=== PATIENT | female | born 1980 | race Caucasian/White ===

== ENCOUNTER 2020-07-19 10:29 | Outpatient (REF) | payer MEDICAID, SELFPAY ==
--- NOTE | 2020-07-19 10:15 | PAPFT_PTH ---
PATIENT: Teri Smith LOC: [facility] U#:[id number] AGE/SX: 40/F ROOM: RE07/19/[address]: Duyen Hunter : 1980 BED: DIS: 07/19/2020 SPEC #: [id number] RECD: 07/19/20 13:16 STATUS: GRAHAM RERichmond #: [id number] HERNAN: 07/19/20 10:[address]: Duyen Hunter DEPT: [facility] Cytology RECD BY: Estephania Delgado ENTERED: 07/19/20 13:17 SP TYPE: PAPFT OT DR: Anuja Cai APRN Tissues: 1 - CX/ENDOCX FOR PAP SMEARS Procedures: PAP THIN PREP/UVM Screening HPV DNA PROBE Comments: [id number]
== END 2020-07-19 10:49 ==
LOC: LBN 10:29
PROVIDERS: PCP Nurse Practitioner; Visit Provider Obstetrics & Gynecology Gynecology
DX: Z12.4 Encounter for screening for malignant neoplasm of cervix (principal); Z11.51 Encounter for screening for human papillomavirus (HPV)
CPT/HCPCS: 88142; 87624

== ENCOUNTER 2020-07-20 02:26 | Outpatient (CLI) | payer MEDICAID, SELFPAY ==
[2020-07-20 16:22] LABS: HCT 37.1 % (36.0-46.0); HGB 12.5 g/dL (11.2-15.7); MCH 28.6 pg (27.0-33.0); MCHC 33.7 % (32.0-36.0); MCV 84.9 fL (80-95); MPV 9.7 fL (8.0-11.0); Platelet Count 302 10^3/uL (130-400); RBC 4.37 10^6/uL (3.93-5.22); RDW 11.9 % (11.7-14.6); RDW-SD 36.2 fL; WBC 8.06 10^3/uL (4.4-10.8)
[2020-07-20 17:36] LABS: ALT 19 U/L (14-59); AST 17 U/L (15-37); Albumin 4.1 g/dL (3.4-5.0); Alkaline Phosphatase 51 U/L (46-116); Anion Gap 7.5 mmol/L (3-11); BUN 16 mg/dL (7-18); Bilirubin, Total 0.4 mg/dL (0.2-1.0); CO2 28.5 mmol/L (21.0-32.0); CREATININE 0.76 mg/dL (0.55-1.02); Calcium 9.1 mg/dL (8.5-10.1); Calculated LDL 123 mg/dL (<100); Chloride 102 mmol/L (98-107); Cholesterol 206 mg/dL (<200); Glucose 100 mg/dL (74-106); HDL Cholesterol 75 mg/dL (40-60); Magnesium 2.3 mg/dL (1.8-2.4); Potassium 3.9 mmol/L (3.5-5.1); Sodium 138 mmol/L (136-145); Total Protein 7.2 g/dL (6.4-8.2); Triglyceride 41 mg/dL (<150)
== END 2020-07-20 02:46 ==
PROVIDERS: PCP Nurse Practitioner; Visit Provider Student in an Organized Health Care Education/Training Program
DX: E03.9 Hypothyroidism, unspecified (principal); R53.83 Other fatigue; K58.9 Irritable bowel syndrome, unspecified; K21.9 Gastro-esophageal reflux disease without esophagitis; E86.0 Dehydration; Z13.220 Encounter for screening for lipoid disorders; Z83.3 Family history of diabetes mellitus; Z86.2 Personal history of diseases of the blood and blood-forming organs and certain disorders involving the immune mechanism
CPT/HCPCS: 36415; 80053; 80061; 85027; 83735; 84443

== ENCOUNTER 2020-09-13 02:20 | Outpatient (CLI) | payer MEDICAID, SELFPAY ==
[2020-09-13 10:18] LABS: ESR 31 mm/hr (0-20)
[2020-09-13 12:11] LABS: C-Reactive Protein 0.71 mg/dL (0.0-0.3)
[2020-10-01 12:29] LABS: ANA Interpretation 0.5 U (Negative); Rheumatoid Factor <15 IU/mL (<15)
[2020-10-01 12:30] LABS: Lyme Ab w Rflx to Lyme Confirm Negative (Negative)
== END 2020-09-13 02:40 ==
PROVIDERS: PCP Nurse Practitioner; Visit Provider Nurse Practitioner
DX: E03.9 Hypothyroidism, unspecified (principal); R53.83 Other fatigue; K21.9 Gastro-esophageal reflux disease without esophagitis; M79.18 Myalgia, other site; M25.59 Pain in other specified joint
CPT/HCPCS: 36415; 85652; 84439; 86038; 86140; 86431; 86618

== ENCOUNTER 2020-10-10 01:42 | Outpatient (CLI) | payer MEDICAID, SELFPAY ==
--- NOTE | 2020-10-10 | DI.US_ITS ---
EXAM: US RENAL CLINICAL HISTORY: COMPLEX RENAL CYST,N28.1 TECHNIQUE: Ultrasound performed using standard protocol. COMPARISON: CT CT HEAD/BRAIN WO CONTRAST from 09/08/[address] RENAL COLIC from 09/07/[address] ABDOMEN W/CONTRAST from 09/19/2019 FINDINGS: Today's examination was obtained to evaluate I a hypoattenuating lesion seen on CT from [facility] September 07, this measured about 9 millimeters in diameter and was located in the anterior aspect of left renal midpole. This measures about 5-10 Houns[address] on [address] CT of and about 23 Hounsfield units on contrast enhanced CT of September 19. On today's examination this lesion is not identified in a suboptimally ultrasonically visualized kidn ey. Right kidney is unremarkable in appearance. No hydronephrosis or nephrolithiasis. Urinary blad mari is unremarkable. IMPRESSION: A 9 millimeter left renal lesion noted on CT a [facility] cannot be identified as a cyst. I would suggest additional evaluation with renal MRI be obtained. DATA REPOSITORY:
== END 2020-10-10 02:02 ==
PROVIDERS: PCP Nurse Practitioner; Visit Provider Urology
DX: N28.1 Cyst of kidney, acquired (principal); N28.89 Other specified disorders of kidney and ureter
CPT/HCPCS: 76770

== ENCOUNTER 2020-11-21 00:05 | Emergency (ER) | payer MEDICAID, SELFPAY ==
[2020-11-21 00:11] VITALS: BP 153/91; PULSE 119; RESP 20; TEMP 37.2; O2SAT 98
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
== END 2020-11-21 00:32 | disposition left against medical advice (07) ==
LOC: ER 00:43
PROVIDERS: Emergency Provider Emergency Medicine; PCP Nurse Practitioner
DX: S80.01XA Contusion of right knee, initial encounter (principal); R51.9 Headache, unspecified; M54.2 Cervicalgia; R07.81 Pleurodynia; R10.9 Unspecified abdominal pain; Y35.813A Legal intervention involving manhandling, suspect injured, initial encounter; Z53.29 Procedure and treatment not carried out because of patient's decision for other reasons
CPT/HCPCS: 99285; 99283

== ENCOUNTER 2021-01-16 02:12 | Outpatient (CLI) | payer MEDICAID, SELFPAY ==
[2021-01-16 08:55] LABS: Hemoglobin A1C 5.7 % (<5.7)
[2021-01-16 09:40] LABS: Anion Gap 11.6 mmol/L (3-11); BUN 7 mg/dL (7-18); CO2 25.4 mmol/L (21.0-32.0); CREATININE 0.8 mg/dL (0.55-1.02); Calcium 8.6 mg/dL (8.5-10.1); Calculated LDL 102 mg/dL (<100); Chloride 104 mmol/L (98-107); Cholesterol 170 mg/dL (<200); Glucose 107 mg/dL (74-106); HDL Cholesterol 59 mg/dL (40-60); Potassium 3.6 mmol/L (3.5-5.1); Sodium 141 mmol/L (136-145); TSH (W/Ref FT4) 0.13 uIU/mL (0.36-3.74); Triglyceride 48 mg/dL (<150)
[2021-01-16 10:04] LABS: FREE T4 1.73 ng/dL (0.76-1.46)
[2021-01-17 09:22] LABS: Insulin 5.7 uIU/mL (<29.0)
== END 2021-01-16 02:13 | disposition home or self-care (01) ==
LOC: LBO 02:13
PROVIDERS: PCP Nurse Practitioner; Visit Provider Nurse Practitioner
DX: I10 Essential (primary) hypertension (principal); E11.649 Type 2 diabetes mellitus with hypoglycemia without coma; E03.9 Hypothyroidism, unspecified; R63.5 Abnormal weight gain
CPT/HCPCS: 36415; 80048; 80061; 83036; 83525; 84439; 84443; 84681

== ENCOUNTER 2021-05-30 16:04 | Outpatient (CLI) | payer MEDICAID, SELFPAY ==
[2021-05-30 17:46] LABS: FREE T4 1.23 ng/dL (0.76-1.46); Glucose 84 mg/dL (74-106); TSH 2.33 uIU/mL (0.36-3.74)
[2021-05-31 16:11] LABS: Beta-Hydroxybutyrate 0.3 mmol/L (<0.4)
[2021-06-06 10:15] LABS: Insulin 6.4 uIU/mL (<29.0)
== END 2021-05-30 16:05 | disposition home or self-care (01) ==
LOC: LBO 16:07
PROVIDERS: PCP Nurse Practitioner; Visit Provider Nurse Practitioner
DX: E03.8 Other specified hypothyroidism (principal); E06.3 Autoimmune thyroiditis; E16.2 Hypoglycemia, unspecified
CPT/HCPCS: 36415; 82533; 82947; 82010; 83525; 84439; 84443; 84681

== ENCOUNTER 2021-07-10 14:58 | Emergency (ER) | payer MEDICAID, SELFPAY ==
[2021-07-10] VITALS (39 sets, daily range): BP systolic 148–179; BP diastolic 68–101; PULSE 59–94; RESP 11–27; TEMP 36.7; O2SAT 98–100
--- NOTE | 2021-07-10 15:00 | RT.EKG_ITS ---
APPROVED REPORT Exam: Resting ECG Reason for Exam: chest pain Patient Location: E HR:82 bpm ECG Measurements Heart Rate 82 AXIS NJ 121 P 56 QRSd 92 QRS 54 QT 382 T -7 QTc 448 Conclusion Sinus rhythm...normal P axis, V-rate 60- 99
--- NOTE | 2021-07-10 15:30 | ED.GENADUL_ITS ---
Discharge Plan Disposition Patient Disposition: HOME Condition: Stable Discharge Details Clinical Impression: Chest pain, Gastroesophageal reflux disease Primary Care Provider: Anuja Cai ED Provider: Vishnu Miller Home Meds and New Rx's Prescriptions: Continued fluticasone propionate 50 mcg/actuation spray,suspension 1 spray LAVELLE BID Qty: 15.8 RF: 12 fexofenadine 180 mg tablet 180 mg PO DAILY Qty: 90 RF: 3 levothyroxine 112 mcg tablet 112 mcg PO DAILY Qty: 90 RF: 3 omeprazole 40 mg capsule,delayed release(DR/EC) 40 mg PO DAILY Qty: 90 RF: 3 atomoxetine 40 mg capsule 40 mg PO QAM Qty: 90 RF: 3 Discharge Instructions Instructions: Chest Pain (ED), GERD (Gastroesophageal Reflux Disease) (ED) Additional Instructions: your blood work and chest xray did not show concerning findings at this time follow up with your primary care provider as soon as possible if you feel more ill, have worsening pain or difficulty breathing return to the emergency department Medical Decision Making 41 yo female with hx of smoking, hypothyroidism, gerd, who comes in with cc of aching in the anterior chest for 2 days and has had a lot of gas per patient. Denies any fevers or dyspnea. She states she has chronic stomach issues from a hiatal hernia but has not had any abdomen tenderness recently and has no tenderness anywhere on abdomen exam. She denies drug use and drinks occasionally. She appears well on exam speaking in full sentences in no distress. She has clear lungs, no murmurs, no leg swelling or calf tenderness. Her symptoms seem most likely gi related, will treat with gi cocktail. Her pain doesn't radiate to the back and has normal vascular exam so doubt dissection. Wells low and perc negative so doubt PE at this time. Will obtain xray to [facility] for possible pneumothorax though seems unlikely given pain is not pleuritic. Given she has no abdomen tenderness on exam do not feel she requires imaging of the abdomen at this time pt's initial labs and xray unremarkable, feels better after [place] so suspect gastritis/gerd. Will obtain delta troponin and ecg delta trop negative, she remains stable. Given heart score of 2 she is stable fo r d/c. Advised to f/u with pcp and return precautions given Differential Diagnosis Differential Diagnosis: esophagitis, esophageal spasm, nstemi Medical Records Medical records reviewed: Yes I reviewed the patient's medical records. Imaging Data Radiologic Study: Attestation: I personally reviewed and interpreted this imaging study as follows: Imaging: X-Ray Radiologist's impression: no acute findings Lab Data Lab results reviewed: Yes I reviewed the patient's lab results. ECG Data Attestation: I personally reviewed and interpreted this ECG (s) as follows: Prior ECG tracings: not available for review Interpretation: sinus rhythm, rate of 82, no acute st t wave ischemic findings sinus rhythm, rate of 62, no acute st t wave ischemic findings HPI General Mode of arrival: ambulatory . Date/Time Provider Initiated Documentation: 07/10/21 15:02 . Limitations to Documentation: no limitations . Information obtained by: patient . History of Present Illness 41 year old F presents to the emergency department with the chief complaint of chest pain, described as moderate, Quality is described as aching, Patient started experiencing this day(s) (2) and it has been constant. No relieving factors improve symptom(s), No exacerbating factors reported . Patient did receive the following treatments prior to arrival, none Related Data Home Medications Medication Instructions Recorded Confirmed fexofenadine 180 mg tablet 180 mg PO DAILY #90 tab 01/14/21 07/10/21 levothyroxine 112 mcg tablet 112 mcg PO DAILY #90 tab 01/16/21 07/10/21 fluticasone propionate 50 1 spray LAVELLE BID #15.8 ml 02/04/21 07/10/21 mcg/actuation nasal spray,suspension omeprazole 40 mg capsule,delayed 40 mg PO DAILY #90 cap 06/06/21 07/10/21 release atomoxetine 40 mg capsule 40 mg PO QAM #90 cap 06/12/21 07/10/21 Previous Rx's Medication Instructions Recorded fexofenadine 180 mg tablet 180 mg PO DAILY #90 tab 01/14/21 levothyroxine 112 mcg tablet 112 mcg PO DAILY #90 tab 01/16/21 fluticasone propionate 50 1 spray LAVELLE BID #15.8 ml 02/04/21 mcg/actuation nasal spray,suspension omeprazole 40 mg capsule,delayed 40 mg PO DAILY #90 cap 06/06/21 release atomoxetine 40 mg capsule 40 mg PO QAM #90 cap 06/12/21 Allergies Allergy/AdvReac Type Severity Reaction Status Date / Time kiwi Allergy Intermediate Anaphylaxsi Verified 07/10/21 15:24 s house dust mite Allergy Unknown Verified 07/10/21 15:24 General Stated Complaint: Chest Pain DIMITRI: 2 Review of Systems All systems reviewed & are unremarkable except as noted in HPI and below Constitutional Constitutional: Denies chills, Denies fever(s) and Denies weakness Cardiovascular Cardiovascular: Denies dyspnea Respiratory Respiratory: Denies cough and Denies dyspnea Musculoskeletal Musculoskeletal: Denies joint swelling Neurologic Neurologic: Denies weakness [facility] Medical History (Updated 07/10/21 @ 18:50 by Vishnu Miller MD) ADHD ADHD Adjustment disorder with mixed emotional features Anxiety and depression Binge eating disorder Binge eating disorder Candidal vulvovaginitis Chronic pain of multiple joints Hx flares: .. divina shoulders/hips. Clinical xerostomia Dry mouth, w/ sensation of dysphagia; Dry eyes (sensation of sand in eyes).. Possible assoc with autoimmun pathology? Environmental allergies Exposure to viral hepatitis Family history of aneurysm of blood vessel of brain Mo (now 60yo) Family history of coronary artery disease Fa w/ triple bypass @ 55yo Family history of diabetes mellitus Father Family history of thyroid cancer Gastroesophageal reflux disease EGD 02/03/12 History of cardiac murmur as a child Hypothyroidism IBS (irritable bowel syndrome) Joint pain Lack of energy Muscle pain Obstructive sleep apnea Sleep study 09/06/10 Palpitations Holter 01/10/11 Premenstrual tension syndrome PTSD (post-traumatic stress disorder) Renal colic Surgical History delivery delivered (12/03/14) H/O tubal ligation (~2014) Status post hysteroscopic surgical removal of uterine septum (~2003) [place] teeth extracted (~2000) Family History Mother Substance abuse Depression Hypertension Brain aneurysm Father Substance abuse Diabetes Heart disease Daughter Anxiety Aunt Thyroid cancer Daughter Diabetes Maternal Grandmother Thyroid cancer Social History Smoking/Tobacco Use Status: Former Tobacco Use Tobacco: How many years used: 20 Smokeless tobacco user: other (quit vaping 11/18/20) Smoking risk assessment performed?: Yes (Pt is currently vaping after 22yrs of tobacco use.) Alcohol Intake: current Alcohol Intake frequency: a few times a week Alcohol type: wine Drug use: Never Adopted: No Caregiver/Support person: No Foster care: No Household members: spouse and children Housing: house Number of Children: 2 Communication Needs: Corrective Lenses Do you need help understanding health information?: Rarely current occupation: Unemployed Pets and animals: Yes Pets and animals: cat(s) Sexually active: Yes Do you think of yourself as: straight/heterosexual Current gender identity: female What is your relationship status?: Panel score (0-1 are the most socially isolated patients): 1 What type of physical activity do you participate in: none Duration: < 15 minutes/day Special abilio needs: No Seatbelt use: always Drive intox or ride w/intox warehouse associate driver: No Working smoke detector in home: Yes Fire extinguisher in home: Yes Carbon monox detector in home: Yes Firearms in home: No Do you feel safe at home: Yes Do you feel safe in your relationship?: Yes Female Reproductive History Menstrual Duration of menses: 3-5 days control method: permanent sterilization History History 4 Para 2 Hx # Term Pregnancies 2 Multiple births Hx # Pregnancies Ectopic pregnancies AB induced Hx Number of Living Children 2 AB spontaneous Exam Const General: no acute distress Orientation: alert HENMT Head: normal to inspection Ears: external ears normal General nose exam: external nose normal Mouth: moist mucous membranes Eyes General: appearance normal, both eyes and all related structures Neck Neck: normal visual inspection Resp Effort & Inspection: normal respiratory effort and able to speak in complete sentences Cardio Rate: regular rate GI Palpation: soft Skin General skin exam: no rashes or lesions noted Neuro General: patient alert and patient oriented x3 Extrem General: normal to inspection Psych Mental Status: mental status grossly normal Course Vital Signs Vital signs: Vital Signs Temperature 36.7 C 07/10/21 15:19 Pulse 91 H 07/10/21 15:19 Respiratory Rate 18 07/10/21 15:19 Blood Pressure 173/85 H 07/10/21 15:19 Pulse Oximetry 100 07/10/21 15:19 Temperature 36.7 C 07/10/21 15:19 Pulse 91 H 07/10/21 15:19 Respiratory Rate 18 07/10/21 15:19 Respiratory Effort Non-Labored 07/10/21 15:22 Blood Pressure 173/85 H 07/10/21 15:19 Blood Pressure Position Supine 07/10/21 15:19 Pulse Oximetry 100 07/10/21 15:19 Oxygen Delivery Method Room Air 07/10/21 15:19 Oxygen Flow Rate 0 07/10/21 15:19 Pain Level 3 07/10/21 15:19
--- NOTE | 2021-07-10 15:30 | DI.RAD_ITS ---
Exam(s) XR CHEST 2V PA LATERAL EXAM: XR CHEST 2V PA LATERAL CLINICAL HISTORY: chest pain. TECHNIQUE: 2D digital imaging was performed. COMPARISON: No exams were available for comparison FINDINGS: Heart size is normal. The mediastinum is not widened. Lungs are clear. No infiltrates nor pleural effusions. IMPRESSION: No acute pulmonary findings. DATA REPOSITORY: RADIATION DOSE DELIVERED:
[2021-07-10 15:39] LABS: Abs Immature Grans 0.02 10^3/uL (0.0-0.06); Absolute Basophil Count 0.04 10^3/uL (0.0-0.2); Absolute Eosinophil Count 0.07 10^3/uL (0.0-0.7); Absolute Lymphocyte Count 1.78 10^3/uL (1.2-3.4); Absolute Monocyte Count 0.58 10^3/uL (0.1-0.8); Absolute Neutrophil Count 6.15 10^3/uL (1.2-6.7); Basophils % 0.5; Eosinophils % 0.8; HCT 35.7 % (36.0-46.0); HGB 11.7 g/dL (11.2-15.7); Immature Grans % 0.2; Lymphocytes % 20.6; MCHC 32.8 % (32.0-36.0); MCV 82.4 fL (80-95); MPV 9.8 fL (8.0-11.0); Monocytes % 6.7; Neutrophils % 71.2; Nucleated RBC 0 %; Platelet Count 332 10^3/uL (130-400); RBC 4.33 10^6/uL (3.93-5.22); RDW 12.8 % (11.7-14.6); RDW-SD 38.3 fL; WBC 8.64 10^3/uL (4.4-10.8)
[2021-07-10 15:51] LABS: Magnesium 1.9 mg/dL (1.8-2.4)
[2021-07-10] MEDS: Mylanta Suspension 30 ML CUP PO (15:54)
[2021-07-10 16:01] LABS: Lipase 151 U/L (73-393)
[2021-07-10 16:05] LABS: Troponin I < 0.05 ng/mL (<0.06)
--- NOTE | 2021-07-10 17:41 | DI.VRAD_ITS ---
PROCEDURE INFORMATION: Exam: XR Chest Exam date and time: 07/10/2021 3:40 PM Age: 41 years old Clinical indication: Other: Chest pain TECHNIQUE: Imaging protocol: XR of the chest. Views: 2 views. COMPARISON: CT ABDOMEN W/CONTRAST 09/19/2019 2:50 PM FINDINGS: Lungs: Unremarkable. No consolidation. Pleural spaces: Unremarkable. No pleural effusion. No pneumothorax. Heart/Mediastinum: Unremarkable. No cardiomegaly. Bones/joints: Unremarkable. IMPRESSION: No acute findings. Dictated and Authenticated by: Eligio Holguin MD. Ordering:COMPA Mares MD
--- NOTE | 2021-07-10 18:15 | RT.EKG_ITS ---
APPROVED REPORT Exam: Resting ECG Reason for Exam: chest pain-delta trop Patient Location: E HR:62 bpm ECG Measurements Heart Rate 62 AXIS MN 134 P 36 QRSd 94 QRS 32 QT 419 T 12 QTc 426 Conclusion Sinus rhythm...normal P axis, V-rate 60- 99
[2021-07-10 18:36] LABS: ALT 32 U/L (14-59); AST 25 U/L (15-37); Albumin 3.9 g/dL (3.4-5.0); Alkaline Phosphatase 62 U/L (46-116); Anion Gap 13.2 mmol/L (3-11); BUN 8 mg/dL (7-18); Bilirubin, Total 0.4 mg/dL (0.2-1.0); CO2 23.8 mmol/L (21.0-32.0); CREATININE 0.9 mg/dL (0.55-1.02); Calcium 8.5 mg/dL (8.5-10.1); Chloride 103 mmol/L (98-107); Glucose 95 mg/dL (74-106); Potassium 3.6 mmol/L (3.5-5.1); Sodium 140 mmol/L (136-145); Total Protein 7.5 g/dL (6.4-8.2)
[2021-07-10 18:44] LABS: Troponin I < 0.05 ng/mL (<0.06)
== END 2021-07-10 19:23 | disposition home or self-care (01) ==
PROVIDERS: Emergency Provider Emergency Medicine; PCP Nurse Practitioner
DX: R07.9 Chest pain, unspecified (principal); K21.9 Gastro-esophageal reflux disease without esophagitis; R03.0 Elevated blood-pressure reading, without diagnosis of hypertension
CPT/HCPCS: 80053; 83690; 93005; 99284; 71046; 83735; 84484; 85025; 93010

== ENCOUNTER 2021-07-12 10:36 | Outpatient (CLI) | payer MEDICAID, SELFPAY ==
--- NOTE | 2021-07-12 11:45 | DI.US_ITS ---
Exam(s) US ABDOMEN EXAM: US ABDOMEN CLINICAL HISTORY: general abd pain ?hepatobiliary pathology? R10.9 ABD PAIN TECHNIQUE: Ultrasound abdomen performed using standard protocol. COMPARISON: CT CT RENAL COLIC from 09/07/[address] RENAL COLIC from 09/07/[address] ABDOMEN W/CONTRAST from 09/19/[address] ABDOMEN W/CONTRAST from 09/19/2019 FINDINGS: LIVER: Normal size at 14 cm in length. Mildly increased diffuse echogenicity consistent with mild he patic steatosis.. No focal liver lesions are seen.. GALLBLADDER: No evidence of cholelithiasis. No evidence of wall thickening. No pericholecystic fluid identified. WILSON'S SIGN: Negative. BILIARY SYSTEM: No intrahepatic or extrahepatic biliary ductal dilation. KIDNEYS: Kidneys are symmetric in size. No evidence of renal calculi. No evidence of hydronephrosis. Previously noted left renal cysts by CT is not well evaluated on this exam. PANCREAS: Normal where visualized. SPLEEN: Not enlarged. ABDOMINAL AORTA AND IVC: Visualized portions normal caliber. ASCITES: None seen. IMPRESSION: Mild fatty infiltration of the liver. Normal gallbladder. No biliary dilatation. DATA REPOSITORY:
== END 2021-07-12 10:56 ==
PROVIDERS: PCP Nurse Practitioner; Visit Provider Nurse Practitioner Family
DX: R10.9 Unspecified abdominal pain (principal); K76.0 Fatty (change of) liver, not elsewhere classified
CPT/HCPCS: 76700

== ENCOUNTER 2021-07-16 02:08 | Outpatient (CLI) | payer MEDICAID, SELFPAY ==
[2021-07-16 18:42] LABS: Bilirubin Negative (Negative); Blood Small (Negative); Clarity Clear (Clear); Glucose Negative (Negative); Ketones Negative (Negative); Leukocyte Esterase Negative (Negative); Nitrite Negative (Negative); Specific Gravity <= 1.005 (1.005-1.025); Urobilinogen 0.2 EU/dL (Up TO 0.2)
[2021-07-16 18:43] LABS: RBC 0-2 HPF (0-2); WBC 0-2 HPF (0-5)
[2021-07-16 18:44] LABS: Bacteria Negative HPF (Negative); C & S Indicated? No; Casts Negative LPF (Negative); Crystals Negative HPF (Negative); Epithelial Cells Negative HPF (Negative); Mucus Negative (Negative); Other Cells Negative (Negative)
[2021-07-17 10:37] LABS: Hepatitis C Ab w Rflx HCV PCR Negative (Negative)
[2021-07-17 12:11] LABS: IgA 191 mg/dL (85-499); Interpretation (See Note); Tissue Transglutaminase IgA <1.2 U/mL (<4.0)
== END 2021-07-16 02:09 | disposition home or self-care (01) ==
LOC: LBO 02:08
PROVIDERS: PCP Nurse Practitioner; Visit Provider Nurse Practitioner Family
DX: Z11.59 Encounter for screening for other viral diseases; R19.7 Diarrhea, unspecified; I10 Essential (primary) hypertension; K44.9 Diaphragmatic hernia without obstruction or gangrene
CPT/HCPCS: 36415; 82784; 83516; 86803; 81003; 81015

== ENCOUNTER 2021-07-30 12:17 | Outpatient (REF) | payer MEDICAID, SELFPAY | END 2021-07-30 12:18 | disposition home or self-care (01) | LOC: LBN 12:17 | PROVIDERS: PCP Nurse Practitioner; Visit Provider Nurse Practitioner Family | DX: N39.0 Urinary tract infection, site not specified (principal) | CPT/HCPCS: 87077; 87086; 87186 ==

== ENCOUNTER 2022-02-12 02:04 | Outpatient (CLI) | payer MEDICAID, SELFPAY ==
--- NOTE | 2022-02-12 12:13 | DI.MAMMO_ITS ---
Exam(s) MAMMO SCREENING EXAM: MAMMO SCREENING CLINICAL HISTORY: screening,Z12.39 TECHNIQUE: Mammograms were interpreted according to the usual protocol including computer analysis w [employer] CAD system, tomosynthesis and C-view imaging. COMPARISON: None. Baseline exam. FINDINGS: The breasts are composed of scattered fibroglandular densities, Breast Density category B. No suspicious masses or suspicious microcalcifications are seen. No skin thickening or abnormal axillary lymph nodes are seen. There has been no significant change from prior exams. IMPRESSION: BI-RADS Category 1, Negative mammogram Yearly screening mammography is recommended. Breast Density - Category B, scattered fibroglandular densities. A negative radiographic report should not delay biopsy if a dominant or clinically suspicious mass is present. Up to ten percent of cancers are not identified on mammography. A negative report may reinforce clinical impression. Adenosis and dense breasts may obscure an underlying neoplasm. False positive reports average 6 to 10%. Patient will receive a letter notifying them of these results.
== END 2022-02-12 02:24 ==
PROVIDERS: PCP Nurse Practitioner; Visit Provider Nurse Practitioner
DX: Z12.31 Encounter for screening mammogram for malignant neoplasm of breast (principal)
CPT/HCPCS: 77063; 77067

== ENCOUNTER 2022-03-12 18:02 | Outpatient (REF) | payer MEDICAID, SELFPAY ==
[2022-03-13 14:39] LABS: Chlamydia Result Negative (Negative); GC Result Negative (Negative)
== END 2022-03-12 18:03 | disposition home or self-care (01) ==
LOC: LBN 18:02
PROVIDERS: PCP Nurse Practitioner; Visit Provider Nurse Practitioner Women's Health
DX: Z11.3 Encounter for screening for infections with a predominantly sexual mode of transmission (principal)
CPT/HCPCS: 87491; 87591

== ENCOUNTER 2022-03-14 02:58 | Outpatient (CLI) | payer MEDICAID, SELFPAY ==
[2022-03-14 11:11] LABS: ALT 37 U/L (14-59); AST 22 U/L (15-37); Albumin 4.3 g/dL (3.4-5.0); Alkaline Phosphatase 54 U/L (46-116); Anion Gap 7.7 mmol/L (3-11); BUN 10 mg/dL (7-18); Bilirubin, Total 0.5 mg/dL (0.2-1.0); CO2 31.3 mmol/L (21.0-32.0); CREATININE 0.9 mg/dL (0.55-1.02); Calcium 9.2 mg/dL (8.5-10.1); Calculated LDL 123 mg/dL (<100); Chloride 99 mmol/L (98-107); Cholesterol 211 mg/dL (<200); Glucose 104 mg/dL (74-106); HDL Cholesterol 77 mg/dL (40-60); Potassium 3.3 mmol/L (3.5-5.1); Sodium 138 mmol/L (136-145); TSH (W/Ref FT4) 1.46 uIU/mL (0.36-3.74); Total Protein 7.6 g/dL (6.4-8.2); Triglyceride 59 mg/dL (<150)
[2022-03-17 10:22] LABS: Hepatitis C Ab w Rflx HCV PCR Negative (Negative)
[2022-03-17 10:47] LABS: HIV-1/2 Ag & Ab Screen Negative (Negative)
[2022-03-17 15:37] LABS: Syphilis IgG w/Reflex Nonreactive (Nonreactive)
== END 2022-03-14 02:59 | disposition home or self-care (01) ==
LOC: LBO 02:58
PROVIDERS: PCP Nurse Practitioner; Visit Provider Nurse Practitioner Women's Health
DX: Z11.3 Encounter for screening for infections with a predominantly sexual mode of transmission (principal); E03.8 Other specified hypothyroidism; I10 Essential (primary) hypertension
CPT/HCPCS: 36415; 80053; 80061; 86803; 87389; 84443; 86780

== ENCOUNTER 2022-05-14 17:02 | Outpatient (REF) | payer MEDICAID, SELFPAY ==
[2022-05-16 14:22] LABS: COVID-19 RT-PCR UVMMC Result Negative (Negative)
== END 2022-05-14 17:03 | disposition home or self-care (01) ==
LOC: LBN 17:02
PROVIDERS: PCP Nurse Practitioner; Visit Provider Physician Assistant Medical
DX: Z20.822 Contact with and (suspected) exposure to COVID-19 (principal); J32.9 Chronic sinusitis, unspecified
CPT/HCPCS: U0003

== ENCOUNTER 2022-05-20 02:14 | Outpatient (CLI) | payer MEDICAID, SELFPAY | END 2022-05-20 02:15 | disposition home or self-care (01) | LOC: LBO 02:15 | PROVIDERS: PCP Nurse Practitioner; Visit Provider Nurse Practitioner ==

== ENCOUNTER 2022-05-28 04:02 | Outpatient (CLI) | payer MEDICAID, SELFPAY ==
[2022-05-28 13:48] LABS: ESR 8 mm/hr (0-20)
[2022-05-28 15:10] LABS: ALT 24 U/L (14-59); AST 15 U/L (15-37); Albumin 3.8 g/dL (3.4-5.0); Alkaline Phosphatase 42 U/L (46-116); Anion Gap 3.9 mmol/L (3-11); BUN 11 mg/dL (7-18); Bilirubin, Total 0.3 mg/dL (0.2-1.0); CO2 28.1 mmol/L (21.0-32.0); CREATININE 0.9 mg/dL (0.55-1.02); Calcium 8.5 mg/dL (8.5-10.1); Chloride 103 mmol/L (98-107); Glucose 105 mg/dL (74-106); Magnesium 1.9 mg/dL (1.8-2.4); Potassium 3.2 mmol/L (3.5-5.1); Sodium 135 mmol/L (136-145); Total Protein 7.2 g/dL (6.4-8.2)
[2022-05-29 04:42] LABS: Vitamin D 25 Total 12.8 ng/mL (30-100)
== END 2022-05-28 04:03 | disposition home or self-care (01) ==
LOC: LBO 04:04
PROVIDERS: PCP Nurse Practitioner; Visit Provider Nurse Practitioner
DX: M62.838 Other muscle spasm (principal); R79.9 Abnormal finding of blood chemistry, unspecified
CPT/HCPCS: 36415; 80053; 82306; 85652; 83735

== ENCOUNTER 2022-06-20 01:21 | Outpatient (CLI) | payer MEDICAID, SELFPAY ==
[2022-06-20 07:46] LABS: Hemoglobin A1C 5.9 % (<5.7)
[2022-06-20 08:08] LABS: ALT 22 U/L (14-59); AST 12 U/L (15-37); Albumin 3.6 g/dL (3.4-5.0); Alkaline Phosphatase 43 U/L (46-116); Anion Gap 9.2 mmol/L (3-11); BUN 8 mg/dL (7-18); Bilirubin, Total 0.3 mg/dL (0.2-1.0); CO2 26.8 mmol/L (21.0-32.0); CREATININE 0.9 mg/dL (0.55-1.02); Calcium 8.5 mg/dL (8.5-10.1); Chloride 105 mmol/L (98-107); FREE T4 1.29 ng/dL (0.76-1.46); Glucose 105 mg/dL (74-106); Potassium 4.1 mmol/L (3.5-5.1); Sodium 141 mmol/L (136-145); TSH 0.76 uIU/mL (0.36-3.74); Total Protein 7.2 g/dL (6.4-8.2)
[2022-06-21 12:50] LABS: Adrenocorticotropic Hormone, P 32 pg/mL
== END 2022-06-20 01:22 | disposition home or self-care (01) ==
LOC: LBO 01:21
PROVIDERS: PCP Nurse Practitioner; Visit Provider Internal Medicine Endocrinology, Diabetes & Metabolism
DX: E03.8 Other specified hypothyroidism (principal); E06.3 Autoimmune thyroiditis; E16.2 Hypoglycemia, unspecified
CPT/HCPCS: 36415; 80053; 82533; 82024; 83036; 84439; 84443

== ENCOUNTER 2022-11-21 01:48 | Outpatient (CLI) | payer MEDICAID, SELFPAY ==
[2022-11-21 14:29] LABS: Hemoglobin A1C 5.2 % (<5.7)
[2022-11-21 14:30] LABS: Anion Gap 6.5 mmol/L (3-11); BUN 12 mg/dL (7-18); CO2 28.5 mmol/L (21.0-32.0); CREATININE 0.9 mg/dL (0.55-1.02); Calcium 9.2 mg/dL (8.5-10.1); Chloride 103 mmol/L (98-107); Estimated GFR 82.37 (mL/min/1.73m2); Glucose 94 mg/dL (74-106); Potassium 4.2 mmol/L (3.5-5.1); Sodium 138 mmol/L (136-145)
[2022-11-21 15:09] LABS: Vitamin D 25 Total 32.9 ng/mL (30-100)
== END 2022-11-21 01:49 | disposition home or self-care (01) ==
LOC: LBO 01:48
PROVIDERS: PCP Nurse Practitioner; Referring Provider Nurse Practitioner; Visit Provider Nurse Practitioner
DX: E55.9 Vitamin D deficiency, unspecified (principal); E87.6 Hypokalemia; R73.03 Prediabetes
CPT/HCPCS: 36415; 80048; 82306; 83036

== ENCOUNTER 2022-12-24 01:27 | Outpatient (CLI) | payer MEDICAID, SELFPAY ==
--- NOTE | 2022-12-24 14:15 | DI.MRI_ITS ---
Exam(s) MR LOWER JOINT RT WO EXAM: MR LOWER JOINT RT WO CLINICAL HISTORY: LATERAL MENISCAL TEAR,S83.289A. TECHNIQUE: Multiplanar multisequence MRI was performed. COMPARISON: CR XR KNEE 4 VIEW RIGHT from 11/28/2022 FINDINGS: BONES: There is a small focus of hyperintense signal and Jesús associated cyst in the subchondral joss ne in the lateral femoral condyle. There is mild increased signal seen in the overlying cartilage. Marrow signal is otherwise unremarkable. JOINTS: There taking a cartilage is otherwise unremarkable. There is a small amount of fluid in the joint space. TENDONS: Extensor mechanism: Unremarkable. Medial retinaculum: Unremarkable. Lateral retinaculum: Unremarkable. Popliteus: Unremarkable. MUSCLES: Unremarkable. MENISCI: The medial meniscus is unremarkable. The lateral meniscus is unremarkable. SOFT TISSUES: Unremarkable. LIGAMENTS: Anterior Cruciate: The anterior cruciate ligament is poorly visualized particularly as proximal compo nent suggestive of a tear. Posterior Cruciate: Unremarkable. Medial Collateral:Unremarkable. Lateral Collateral: Unremarkable. OTHER: IMPRESSION: 1. No evidence of a lateral meniscal tear. 2. Osteochondral injury involving the lateral femoral condyle. 3. Attenuated appearance of the anterior cruciate ligament particularly proximally suspicious for tea r. DATA REPOSITORY:
== END 2022-12-24 01:47 ==
LOC: DI 01:27
PROVIDERS: PCP Nurse Practitioner; Visit Provider Nurse Practitioner Acute Care
DX: S83.281A Other tear of lateral meniscus, current injury, right knee, initial encounter (principal); S83.511A Sprain of anterior cruciate ligament of right knee, initial encounter; M21.861 Other specified acquired deformities of right lower leg
CPT/HCPCS: 73721

== ENCOUNTER 2023-02-12 01:43 | Outpatient (CLI) | payer MEDICAID, SELFPAY ==
[2023-02-12 11:51] LABS: Abs Immature Grans 0.01 10^3/uL (0.0-0.06); Absolute Basophil Count 0.06 10^3/uL (0.0-0.2); Absolute Eosinophil Count 0.11 10^3/uL (0.0-0.7); Absolute Lymphocyte Count 2.15 10^3/uL (1.2-3.4); Absolute Monocyte Count 0.51 10^3/uL (0.1-0.8); Absolute Neutrophil Count 3.95 10^3/uL (1.2-6.7); Basophils % 0.9; Eosinophils % 1.6; HCT 36.9 % (36.0-46.0); HGB 12.4 g/dL (11.2-15.7); Immature Grans % 0.1; Lymphocytes % 31.7; MCH 28.6 pg (27.0-33.0); MCHC 33.6 % (32.0-36.0); MCV 85 fL (80-95); Monocytes % 7.5; Neutrophils % 58.2; Platelet Count 326 10^3/uL (130-400); RBC 4.34 10^6/uL (3.93-5.22); RDW 12.1 % (11.7-14.6); RDW-SD 37.4 fL; WBC 6.79 10^3/uL (4.4-10.8)
[2023-02-12 11:54] LABS: ESR 7 mm/hr (0-20)
[2023-02-12 12:28] LABS: Hemoglobin A1C 5.7 % (<5.7)
[2023-02-12 12:41] LABS: ALT 28 U/L (14-59); AST 21 U/L (15-37); Albumin 3.8 g/dL (3.4-5.0); Alkaline Phosphatase 55 U/L (46-116); Anion Gap 4.6 mmol/L (3-11); BUN 11 mg/dL (7-18); Bilirubin, Total 0.4 mg/dL (0.2-1.0); CO2 29.4 mmol/L (21.0-32.0); CREATININE 0.9 mg/dL (0.55-1.02); Calculated LDL 127 mg/dL (<100); Chloride 102 mmol/L (98-107); Cholesterol 202 mg/dL (<200); Estimated GFR 82.37 (mL/min/1.73m2); Glucose 88 mg/dL (74-106); HDL Cholesterol 67 mg/dL (40-60); Sodium 136 mmol/L (136-145); TSH 1.85 uIU/mL (0.36-3.74); Total Protein 7.5 g/dL (6.4-8.2); Triglyceride 42 mg/dL (<150)
[2023-02-12 21:53] LABS: Rheumatoid Factor 14.3 IU/mL (<12.0)
[2023-02-13 09:19] LABS: Cyclic Citrullinated Peptide <2.5 U/mL (<5.0)
[2023-02-13 10:34] LABS: Lyme Ab w Rflx to Lyme Confirm Negative (Negative)
[2023-02-13 15:45] LABS: ANA Interpretation Positive (Negative)
[2023-02-14 17:07] LABS: Anaplasma phagocytophilum Negative (Negative); B. miyamotoi PCR Negative (Negative); Babesia divergens/MO-1 Negative (Negative); Babesia duncani Negative (Negative); Babesia microti Negative (Negative); Ehrlichia chaffeensis Negative (Negative); Ehrlichia ewingii/canis Negative (Negative); Ehrlichia muris eauclairensis Negative (Negative)
== END 2023-02-12 01:44 | disposition home or self-care (01) ==
LOC: LBO 01:44
PROVIDERS: Internal Medicine Endocrinology, Diabetes & Metabolism; PCP Nurse Practitioner; Referring Provider Nurse Practitioner; Visit Provider Nurse Practitioner
DX: R53.83 Other fatigue (principal); M25.59 Pain in other specified joint; M79.89 Other specified soft tissue disorders; R10.32 Left lower quadrant pain; G89.29 Other chronic pain; R73.03 Prediabetes; E03.9 Hypothyroidism, unspecified; K21.9 Gastro-esophageal reflux disease without esophagitis; E66.8 Other obesity; I10 Essential (primary) hypertension
CPT/HCPCS: 36415; 80053; 80061; 85652; 86200; 87798; 83036; 84443; 85025; 86038; 86431; 86618

== ENCOUNTER 2023-03-24 01:32 | Outpatient (CLI) | payer MEDICAID, SELFPAY ==
--- NOTE | 2023-03-24 07:45 | DI.US_ITS ---
Exam(s) US RENAL EXAM: US RENAL CLINICAL HISTORY: follow left renal cyst,lt flank pain,r10.9,z87.448. TECHNIQUE: Cobian scale, color and spectral Doppler were used. COMPARISON: CT CT ABDOMEN W/CONTRAST from 09/19/2019 US US RENAL from 10/10/2020 US US ABDOMEN from 07/12/2021 FINDINGS: Renal size in cm: Right: 9.5. Left: 10.9. Echogenicity: Normal. Hydronephrosis: No. Cyst or mass: No. Nephrolithiasis: No. Other findings: None. Bladder:Normal. Ureteral jets: Right: Not visualized on the current examination. Left: Not visualized on the current examination. Prevoid vol:169 cc Postvoid vol:The patient was unable to void. Renal color flow: Symmetric and within normal limits. IMPRESSION: Unremarkable renal examination. No evidence of a renal cyst. DATA REPOSITORY:
--- NOTE | 2023-03-24 07:45 | DI.MAMMO_ITS ---
Exam(s) MAMMO SCREENING EXAM: MAMMO SCREENING CLINICAL HISTORY: screening,z12.39 TECHNIQUE: Bilateral full field digital CC and MLO mammographic images were obtained with 3D tomosyn thesis and utilizing computer aided detection (CAD). COMPARISON: Available for comparison. FINDINGS: Masses/Architectural Distortion: None seen. Microcalcifications: No suspicious pleomorphic-type are seen. Skin Thickening/Nipple Retraction: None. IMPRESSION: 1. No significant interval change with no specific features of malignancy noted. 2. Unless there is more urgent need, screening mammography is recommended, as per [employer] guidelines. BI-RADS Category 1 - Negative Breast Density - Category B - Scattered areas of fibroglandular density Breast density category C or D implies that the patient has dense breast tissue. Dense breast tissue is very common and is not abnormal but dense breast tissue can make it harder to find cancer on a ma mmogram. Also, dense breast tissue may increase their breast cancer risk. This information about the result of the mammogram report was provided to the patient to raise their awareness. Use this report when you speak with the patient about their risks for breast cancer, which includes their family hist ory. At that time, you may recommend for more screening tests (Ultrasound or MRI) as they might be us eful based on their risk. A negative radiographic report should not delay biopsy if a dominant or clinically suspicious mass is present. Up to ten percent of cancers are not identified on mammography. A negative report may reinforce clinical impression. Adenosis and dense breasts may obscure an underlying neoplasm. False positive reports average 6 to 10%. Patient will receive a letter notifying them of these results.
== END 2023-03-24 01:52 ==
LOC: DI 01:32
PROVIDERS: PCP Nurse Practitioner; Visit Provider Nurse Practitioner
DX: Z12.31 Encounter for screening mammogram for malignant neoplasm of breast (principal); R10.9 Unspecified abdominal pain; Z87.448 Personal history of other diseases of urinary system
CPT/HCPCS: 76770; 77063; 77067

== ENCOUNTER 2023-03-25 11:46 | Outpatient (REF) | payer MEDICAID, SELFPAY ==
--- NOTE | 2023-03-25 11:00 | PAPFT_PTH ---
PATIENT: Teri Smith LOC: [facility] U#:[id number] AGE/SX: 42/F ROOM: RE03/25/[address]: Esther Miller NP : 1980 BED: DIS: 03/25/2023 SPEC #: [id number] RECD: 03/25/23 13:15 STATUS: GRAHAM HUANG #: [id number] HERNAN: 03/25/23 11:[address]: Esther Miller NP DEPT: [facility] Cytology RECD BY: Estephania Delgado ENTERED: 03/25/23 13:16 SP TYPE: PAPFT OTHR DR: Anuja Cai APRN Tissues: 1 - CX/ENDOCX FOR PAP SMEARS Procedures: PAP THIN PREP/UVM Screening HPV DNA PROBE Comments: [id number]
== END 2023-03-25 11:47 | disposition home or self-care (01) ==
LOC: LBN 11:46
PROVIDERS: PCP Nurse Practitioner; Visit Provider Nurse Practitioner Women's Health
DX: Z12.4 Encounter for screening for malignant neoplasm of cervix (principal); Z11.51 Encounter for screening for human papillomavirus (HPV)
CPT/HCPCS: 88142; 87624

== ENCOUNTER 2023-06-14 16:10 | Emergency (ER) | payer MEDICAID, SELFPAY ==
[2023-06-14 16:25] VITALS: BP 109/76; PULSE 78; RESP 16; TEMP 37.1; O2SAT 98
--- NOTE | 2023-06-14 16:30 | ED.GENADUL_ITS ---
Discharge Plan Disposition Patient Disposition: Home Condition: Stable Discharge Details Clinical Impression: UTI (urinary tract infection) Primary Care Provider: Anuja Cai ED Provider: Cecelia Kay Home Meds and New Rx's Prescriptions: New cephalexin 500 mg tablet 500 mg PO TID Qty: 15 0RF Continued cholecalciferol (vitamin D3) 1,250 mcg (50,000 unit) capsule 1,250 mcg PO QWEEK Qty: 12 3RF levothyroxine 112 mcg tablet 112 mcg PO DAILY Qty: 90 3RF fluticasone propionate 50 mcg/actuation spray,suspension 1 spray LAVELLE BID Qty: 15.8 12RF Rx Instructions: administer into each nostril lisinopril 10 mg tablet 10 mg PO DAILY Qty: 90 3RF omeprazole 40 mg capsule,delayed release(DR/EC) 40 mg PO BID Qty: 180 3RF Rx Instructions: Take 40 mg twice daily at least 30 minutes before meals fluconazole [Diflucan] 150 mg tablet 150 mg PO ONCE Qty: 2 4RF Rx Instructions: as a single dose. May repeat in 72hrs cetirizine [All Day Allergy (cetirizine)] 10 mg tablet 10 mg PO DAILY PRN (Reason: allergy symptoms) Qty: 90 3RF Discharge Instructions Instructions: Urinary Tract Infection in Women (ED) Additional Instructions: Drink 6 to 8 glasses of water daily to stay well-hydrated take antibiotics as prescribed even if you feel better return for new or worsening symptoms Referrals: Christiano Hidalgo MD [ [facility] STAFF PHYSICIAN] - Anuja Cai NP [Primary Care Provider] - Discharge Data Discharge Date/Time-TO BE ENTERED AT DEPARTURE: 06/14/23 17:32 Medical Decision Making Is a 43-year-old female patient with a history of UTIs who is presenting with dysuria frequency and urgency. She denies any fevers nausea sign of systemic infection she has no flank pain or back pain. We did obtain urine which did have blood but again she has no flank pain back pain fever or nausea she was started on cephalexin while awaiting urine culture which has been sent. I did discuss these findings with her and advised her to follow-up with urology which she has been referred to in the past for history of kidney stone. She states she has been voiding well and has had no recurrent symptoms consistent with her history of renal colic. Medical Records Medical records reviewed: Yes I reviewed the patient's medical records. Lab Data Lab results reviewed: Yes I reviewed the patient's lab results. Labs: Laboratory Tests Range/Units 06/14/23 17:00 Urine Color (Yellow) Yellow Urine Clarity (Clear) Clear Urine pH (5-8) 7.0 Ur Specific [place] (1.005-1.025) 1.020 Urine Protein (Negative) mg/dL Negative Urine Ketones (Negative) mg/dL Negative Urine Blood (Negative) Trace-intact H Urine Nitrite (Negative) Negative Urine Bilirubin (Negative) Negative Urine Urobilinogen (Up to 0.2) mg/dL 0.2 Ur Leukocyte Esterase (Negative) Negative Urine RBC (0-2) HPF 0-2 Urine WBC (0-5) HPF 0-2 Ur Epithelial Cells (Negative) HPF Rare Urine Crystals (Negative) HPF Few Amorphous Urine Bacteria (Negative) HPF Rare Urine Casts (Negative) LPF Negative Urine Mucus (Negative) Negative Ur Culture Indicated? No Urine Glucose (Negative) mg/dL Negative HPI General Mode of arrival: ambulatory . Date/Time Provider Initiated Documentation: 06/14/23 16:12 . Limitations to Documentation: no limitations . Information obtained by: patient . HPI Narrative: Presents with symptoms of dysuria urgency frequency and noted hematuria today. No flank pain no fever no signs of systemic infection Related Data Home Medications Medication Instructions Recorded Confirmed fluticasone propionate 50 1 spray intranasal BID #15.8 mL 03/10/22 03/25/23 mcg/actuation nasal spray,suspension lisinopril 10 mg tablet 10 mg PO DAILY #90 tabs 06/17/22 03/25/23 omeprazole 40 mg capsule,delayed 40 mg PO BID #180 caps 07/17/22 03/25/23 release fluconazole 150 mg tablet 150 mg PO ONCE #2 tabs 09/12/22 03/25/23 (Diflucan) cholecalciferol (vitamin D3) 1,250 1,250 mcg PO QWEEK #12 caps 11/20/22 03/25/23 mcg (50,000 unit) capsule levothyroxine 112 mcg tablet 112 mcg PO DAILY #90 tabs 11/20/22 03/25/23 cetirizine 10 mg tablet (All Day 10 mg PO DAILY PRN allergy 03/06/23 05/24/23 Allergy (cetirizine)) symptoms #90 tabs cephalexin 500 mg tablet 500 mg PO TID #15 tabs 06/14/23 Previous Rx's Medication Instructions Recorded fluticasone propionate 50 1 spray intranasal BID #15.8 mL 03/10/22 mcg/actuation nasal spray,suspension lisinopril 10 mg tablet 10 mg PO DAILY #90 tabs 06/17/22 omeprazole 40 mg capsule,delayed 40 mg PO BID #180 caps 07/17/22 release fluconazole 150 mg tablet 150 mg PO ONCE #2 tabs 09/12/22 (Diflucan) cholecalciferol (vitamin D3) 1,250 1,250 mcg PO QWEEK #12 caps 11/20/22 mcg (50,000 unit) capsule levothyroxine 112 mcg tablet 112 mcg PO DAILY #90 tabs 11/20/22 cetirizine 10 mg tablet (All Day 10 mg PO DAILY PRN allergy 01/05/23 Allergy (cetirizine)) symptoms #90 tabs cephalexin 500 mg tablet 500 mg PO TID #15 tabs 06/14/23 Allergies Allergy/AdvReac Type Severity Reaction Status Date / Time kimt Allergy Intermediate Anaphylaxsi Verified 03/25/23 10:41 s house dust mite Allergy Unknown Verified 03/25/23 10:41 seasonal Allergy Other (See Uncoded 03/25/23 10:41 Comment) General Stated Complaint: Urinary DIMITRI: 4 Review of Systems Constitutional Constitutional: Reports system reviewed and no additional complaints, except as documented PFSH All Active Problems (Updated 06/14/23 @ 16:32 by Cecelia Kay NP) UTI (urinary tract infection) (Acute) Polyarthralgia (Acute) 04/02/23 [facility] Rheumatology Steatorrhea (Acute) 09/30/21 [facility] Gastro note Incontinence of feces with fecal urgency (Acute) 09/30/21 [facility] Gastro note Gastric ulcer (Acute) 09/30/21 [facility] Gastro note Chest pain, unspecified (Acute) 09/30/21 [facility] Gastro note Diarrhea, unspecified (Acute) 08/19/21 [facility] GI 09/30/21 Upper GI at [facility] Low back pain (Acute) Obesity (Chronic) Loose stools (Acute) Hiatal hernia (Chronic) Per pt had an EGD yrs ago which showed this, EGD 09/30/21 med sized Essential hypertension (Acute) Abdominal pain (Acute) chronic nsaid use Muscle cramps (Acute) Environmental allergies (Acute) ADHD (Acute) Weight gain (Acute) Low blood sugar reading (Acute) Mild obstructive sleep apnea (Acute) 11/17/20 [place] CPAP Anxiety and depression (Chronic) Chronic pain of multiple joints (Acute) Hx flares: .. divina shoulders/hips. 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 Possible assoc with autoimmun pathology? Shoulder pain, bilateral (Acute) Exposure to viral hepatitis (Acute) Lack of energy (Acute) Renal colic (Acute) Muscle pain (Acute) Joint pain (Acute) Premenstrual tension syndrome (Acute) IBS (irritable bowel syndrome) (Chronic) Gastroesophageal reflux disease (Chronic) EGD 02/03/12 Obstructive sleep apnea (Chronic) Sleep study 09/06/10 ADHD (Acute) PTSD (post-traumatic stress disorder) (Acute) Adjustment disorder with mixed emotional features (Acute) Binge eating disorder (Acute) Hypothyroidism (Chronic) Candidal vulvovaginitis (Acute) Medical History (Updated 06/14/23 @ 16:32 by Cecelia Kay NP) Gastric ulcer, unspecified as acute or chronic, without hemorrhage or perforation Heartburn History of cardiac murmur as a child Palpitations Holter 01/10/11 Surgical History delivery delivered (12/03/14) H/O tubal ligation (~2014) History of esophagogastroduodenoscopy (EGD) (10/07/21) Wireless pH-metry ([place]) procedure report. Neg H.Pylori Status post hysteroscopic surgical removal of uterine septum (~2003) [place] teeth extracted (~2000) Family History Mother Substance abuse Depression Hypertension Brain aneurysm Father Substance abuse Diabetes Heart disease Daughter Anxiety Aunt Thyroid cancer Daughter Diabetes Maternal Grandmother Thyroid cancer Social History Smoking/Tobacco Use Status: Former Tobacco Use Tobacco: How many years used: 20 Smokeless tobacco user: other (quit vaping 11/18/20) Smoking risk assessment performed?: Yes (Pt is currently vaping after 22yrs of tobacco use.) Alcohol Intake: current Alcohol Intake frequency: a few times a week Alcohol type: wine Drug use: Never Substance use type: does not use Adopted: No Caregiver/Support person: No Foster care: No Household members: spouse and children Housing: house Number of Children: 2 Communication Needs: Corrective Lenses Do you need help understanding health information?: Rarely current occupation: Unemployed Pets and animals: Yes Pets and animals: cat(s) Sexually active: Yes Do you think of yourself as: straight/heterosexual Current gender identity: female What is your relationship status?: Panel score (0-1 are the most socially isolated patients): 1 What type of physical activity do you participate in: none Duration: < 15 minutes/day Special abilio needs: No Seatbelt use: always Drive intox or ride w/intox local bulk driver: No Working smoke detector in home: Yes Fire extinguisher in home: Yes Carbon monox detector in home: Yes Firearms in home: No Do you feel safe at home: Yes Do you feel safe in your relationship?: Yes Female Reproductive History Menstrual Duration of menses: 3-5 days control method: permanent sterilization History History 4 Para 2 Hx # Term Pregnancies 2 Multiple births Hx # Pregnancies Ectopic pregnancies AB induced Hx Number of Living Children 2 AB spontaneous Exam Const General: cooperative, healthy appearing, comfortable and no acute distress Nutritional Appearance: average body habitus Orientation: alert, awake and oriented x3 HENMT Head: normal to inspection, normocephalic and atraumatic Mouth: oral mucosae normal Chest Chest: normal inspection of the chest Resp Effort & Inspection: normal respiratory effort Cardio Rate: regular rate Rhythm: regular rhythm Skin General skin exam: no rashes or lesions noted Neuro General: patient alert, patient awake and patient oriented x3 Extrem General: normal to inspection and full ROM Course Vital Signs Vital signs: Vital Signs Temperature 37.1 C 06/14/23 16:25 Pulse 78 06/14/23 16:25 Respiratory Rate 16 06/14/23 16:25 Blood Pressure 109/76 06/14/23 16:25 Pulse Oximetry 98 06/14/23 16:25 Temperature 37.1 C 06/14/23 16:25 Pulse 78 06/14/23 16:25 Respiratory Rate 16 06/14/23 16:25 Blood Pressure 109/76 06/14/23 16:25 Pulse Oximetry 98 06/14/23 16:25 Oxygen Delivery Method Room Air 06/14/23 16:25 Oxygen Flow Rate 0 06/14/23 16:25 Pain Level 2 06/14/23 16:25
[2023-06-14 17:07] LABS: Bilirubin Negative (Negative); Blood Trace-intact (Negative); Clarity Clear (Clear); Glucose Negative (Negative); Ketones Negative (Negative); Leukocyte Esterase Negative (Negative); Nitrite Negative (Negative); Urobilinogen 0.2 mg/dL (Up to 0.2)
[2023-06-14 17:16] LABS: Bacteria Rare HPF (Negative); C & S Indicated? No; Casts Negative LPF (Negative); Crystals Few Amorphous HPF (Negative); Epithelial Cells Rare HPF (Negative); Mucus Negative (Negative); RBC 0-2 HPF (0-2); WBC 0-2 HPF (0-5)
== END 2023-06-14 17:32 | disposition home or self-care (01) ==
PROVIDERS: Emergency Provider Nurse Practitioner Acute Care; PCP Nurse Practitioner
DX: N39.0 Urinary tract infection, site not specified (principal); I10 Essential (primary) hypertension; Z87.891 Personal history of nicotine dependence
CPT/HCPCS: 99283; 81003; 81015

== ENCOUNTER 2023-07-23 21:44 | Outpatient (REF) | payer MEDICAID, SELFPAY | END 2023-07-23 21:45 | disposition home or self-care (01) | LOC: LBN 21:44 | PROVIDERS: PCP Nurse Practitioner; Visit Provider Advanced Practice Midwife | DX: N89.8 Other specified noninflammatory disorders of vagina (principal) | CPT/HCPCS: 87480; 87510; 87660 ==

== ENCOUNTER 2024-01-08 11:21 | Outpatient (RCR) | payer MEDICAID, SELFPAY ==
--- NOTE | 2024-01-11 14:00 | HOLTER_ITS ---
APPROVED REPORT Conclusion This is a 48-hour Holter monitor Rhythm throughout was sinus with an average heart rate of 61. Minimum was 47, maximum 111 There was 1 isolated premature ventricular contraction There were 8 atrial premature beat There was no atrial fibrillation, no high-grade AV block, no pauses greater than 3 seconds No symptoms were reported
== END 2024-01-31 23:59 | disposition home or self-care (01) ==
LOC: CARDOPNVT 11:21
PROVIDERS: PCP Nurse Practitioner; Visit Provider Internal Medicine Cardiovascular Disease
DX: R00.1 Bradycardia, unspecified (principal); R42 Dizziness and giddiness
CPT/HCPCS: 93225; 93226

== ENCOUNTER 2024-02-05 09:11 | Emergency (ER) | payer MEDICAID, SELFPAY ==
[2024-02-05 09:18] VITALS: BP 160/82; PULSE 74; RESP 18; TEMP 36.9; O2SAT 100
--- NOTE | 2024-02-05 09:42 | DI.RAD_ITS ---
Exam(s) XR WRIST LT COMP NAVICULAR EXAM: XR WRIST LT COMP NAVICULAR CLINICAL HISTORY: trauma, pain. TECHNIQUE: 2D digital imaging was performed. COMPARISON: No exams were available for comparison FINDINGS: 3 views Subtle deformity in the distal ulna noted which does not have the appearance of an acute fracture. N o significant ulnar variance. Distal radius and carpal row bones appear unremarkable. No fracture o r carpal bones. Scaphoid and scapholunate distance are normal. No metacarpal fractures. IMPRESSION: As above. Correlation with any pain over the distal ulna noted. The radiographic appearance appears nonacute at this level. DATA REPOSITORY: RADIATION DOSE DELIVERED:
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
[2024-02-05] MEDS: Acetaminophen 500 MG TAB 1000 MG PO (10:13)
== END 2024-02-05 10:23 | disposition home or self-care (01) ==
PROVIDERS: Emergency Provider Emergency Medicine Emergency Medical Services; PCP Nurse Practitioner
DX: S60.912A Unspecified superficial injury of left wrist, initial encounter (principal); Z87.891 Personal history of nicotine dependence; Y35.893A Legal intervention involving other specified means, suspect injured, initial encounter; Y93.89 Activity, other specified; Y92.59 Other trade areas as the place of occurrence of the external cause
CPT/HCPCS: 99283; 73110

== ENCOUNTER 2024-02-09 04:42 | Outpatient (CLI) | payer MEDICAID, SELFPAY ==
[2024-02-09 12:58] LABS: TSH (W/Ref FT4) 3.37 uIU/mL (0.36-3.74)
== END 2024-02-09 04:43 | disposition home or self-care (01) ==
LOC: LOS 04:42
PROVIDERS: PCP Nurse Practitioner; Visit Provider Nurse Practitioner
DX: E03.9 Hypothyroidism, unspecified (principal)
CPT/HCPCS: 36415; 84443

== ENCOUNTER 2024-02-18 15:33 | Outpatient (CLI) | payer MEDICAID, SELFPAY ==
--- NOTE | 2024-02-18 14:30 | DI.RAD_ITS ---
Exam(s) XR WRIST LT COMPLETE EXAM: XR WRIST LT COMPLETE CLINICAL HISTORY: continued ulnar wrist pain. TECHNIQUE: 2D digital imaging was performed. Three views. COMPARISON: CR XR WRIST LT COMP NAVICULAR from 02/05/2024 FINDINGS: BONES: There is a question of increased angulation at the distal ulnar fracture site given versus dif ferences in projection. No new fractures are seen. No bony destructive lesion is seen. JOINTS: The carpal bones are normally aligned. SOFT TISSUE: Normal. IMPRESSION: Question increased angulation at the distal ulnar fracture versus differences in projection. DATA REPOSITORY: RADIATION DOSE DELIVERED:
== END 2024-02-18 15:34 | disposition home or self-care (01) ==
LOC: DIORS 15:33
PROVIDERS: PCP Nurse Practitioner; Visit Provider Physician Assistant
DX: S69.92XA Unspecified injury of left wrist, hand and finger(s), initial encounter (principal); M25.532 Pain in left wrist; X58.XXXA Exposure to other specified factors, initial encounter
CPT/HCPCS: 73110

== ENCOUNTER 2024-03-02 11:20 | Day surgery (SDC) | payer MEDICAID, SELFPAY ==
[2024-03-02] VITALS (8 sets, daily range): BP systolic 98–135; BP diastolic 54–76; PULSE 59–99; RESP 16–20; TEMP 36.3–36.6; O2SAT 97–100; BMI 29.8
--- NOTE | 2024-03-02 11:30 | W.ANESPRE ---
General Info Date of Service Date Performed: 03/02/24 Height: 5 ft 7 in Weight: 86.363 kg Body Mass Index (BMI): 29.8 Surgical Procedure: Operation Date: 03/02/24 13:40 Proposed Procedure Side Surgeon p Wrist ORIF Distal Ulna Left Marbin Brand MD Meds Allergies and Home Medications Allergies Allergy/AdvReac Type Severity Reaction Status Date / Time kiwi Allergy Intermediate Anaphylaxsi Verified 03/02/24 11:49 s house dust mite Allergy Unknown sneezing, Verified 03/02/24 11:49 runny nose Home Medication Medication Instructions Recorded cholecalciferol (vitamin D3) 1,250 1,250 mcg PO QWEEK #12 caps 11/20/22 mcg (50,000 unit) capsule cetirizine 10 mg tablet (All Day 10 mg PO DAILY PRN allergy 01/05/23 Allergy (cetirizine)) symptoms #90 tabs fluticasone propionate 50 1 spray intranasal BID #15.8 mL 06/22/23 mcg/actuation nasal spray,suspension famotidine 20 mg tablet 20 mg PO DAILY #90 tabs 06/23/23 lisinopril 10 mg tablet See Rx Instructions .Route 02/15/24 .COMPLEX #90 tabs levothyroxine 125 mcg tablet 125 mcg PO DAILY #90 tabs 02/17/24 docusate sodium 100 mg capsule 100 mg PO QHS #30 caps 02/19/24 (Colace) tramadol 25 mg tablet 25 mg PO Q8H PRN severe pain 02/19/24 (scale score 7-10) #30 tabs Current Visit Medications: Current Medications Generic Name Dose Route Start Last Admin Trade Name Sofi PRN Reason Stop Dose Admin Acetaminophen 1,000 mg 03/02/24 06:00 Acetaminophen 500 Mg Tab PO 03/02/24 23:59 PREOP CATRACHO Celecoxib 400 mg 03/02/24 06:00 Celecoxib 200 Mg Cap PO 03/02/24 23:59 PREOP CATRACHO Ringer's Solution 1,000 mls @ 80 mls/hr 03/02/24 06:00 IV 03/02/24 23:59 INFUSION CATRACHO Cefazolin Sodium/Dextrose 2 gm in 50 mls @ 100 mls/hr 03/02/24 06:00 Ancef Duplex IVPB 03/02/24 23:59 PREOP CATRACHO IV Miscellaneous Supplies 1 each 03/02/24 06:00 Iv Access IV 03/02/24 23:59 DIRECTED CATRACHO Sodium Chloride 0 ml 03/02/24 06:00 Normal Saline Flush 10 Ml Syr IV 03/02/24 23:59 PRN PRN Sodium Chloride 0 ml 03/02/24 06:00 Normal Saline 10 Ml Vial IJ 03/02/24 23:59 DIRECTED PRN Sterile Water 0 ml 03/02/24 06:00 Water,Injection,Sterile 10 Ml Vial IJ 03/02/24 23:59 DIRECTED PRN PFSH Active Problems Active Problems: Problem Status Onset Code Closed fracture of distal end of left ulna 01/31/24 S52.602A Pain in right knee M25.561 Vaginal odor N89.8 Polyarthralgia M25.50 Steatorrhea K90.9 Incontinence of feces with fecal urgency R15.9, R15.2 Gastric ulcer K25.9 Chest pain, unspecified R07.9 Diarrhea, unspecified R19.7 Low back pain M54.5 Obesity E66.9 Loose stools R19.5 Hiatal hernia K44.9 Essential hypertension I10 Abdominal pain R10.9 Muscle cramps R25.2 Environmental allergies Z91.09 ADHD F90.9 Weight gain R63.5 Low blood sugar reading E16.2 Mild obstructive sleep apnea G47.33 Anxiety and depression F41.9, F32.9 Chronic pain of multiple joints M25.50, G89.29 Dry eyes H04.123 Body aches R52 Fatigue R53.83 Family history of diabetes mellitus Z83.3 Family history of coronary artery disease Z82.49 Family history of thyroid cancer Z80.8 Family history of aneurysm of blood vessel of brain Z82.49 Clinical xerostomia K11.7 Shoulder pain, bilateral M25.511, M25.512 Exposure to viral hepatitis Z20.5 Lack of energy R53.83 Renal colic N23 Muscle pain M79.10 Joint pain M25.50 Premenstrual tension syndrome N94.3 IBS (irritable bowel syndrome) K58.9 Gastroesophageal reflux disease K21.9 Obstructive sleep apnea G47.33 ADHD F90.9 PTSD (post-traumatic stress disorder) F43.10 Adjustment disorder with mixed emotional features F43.29 Binge eating disorder F50.81 Hypothyroidism E03.9 Candidal vulvovaginitis B37.3 Medical History Medical History Gastric ulcer, unspecified as acute or chronic, without hemorrhage or perforation Heartburn History of cardiac murmur as a child Palpitations Holter 01/10/11 Surgical History Surgical History History of esophagogastroduodenoscopy (EGD) (10/07/21) Wireless pH-metry ([facility]) procedure report. Neg H.Pylori [place] teeth extracted (~2000) Status post hysteroscopic surgical removal of uterine septum (~2003) H/O tubal ligation (~2014) delivery delivered (12/03/14) Tobacco Smoking/Tobacco Use Status: Former Tobacco Use Smokeless tobacco user: other (quit vaping 11/18/20) Alcohol Alcohol Intake: current Alcohol intake frequency: holidays/special occasions only Alcohol type: wine Substance Use Substance use: Never Substance use type: does not use Prental History History 4 Para 2 Hx # Term Pregnancies 2 Multiple births Hx # Pregnancies Ectopic pregnancies AB induced Hx Number of Living Children 2 AB spontaneous Vital Signs and Lab Results Vital Signs Most Recent Vital Signs in EMR: Temp Pulse Resp BP Pulse Ox 36.4 C L 59 L 16 135/71 100 03/02/24 11:54 03/02/24 11:54 03/02/24 11:54 03/02/24 11:54 03/02/24 11:54 Lab Results Blood Type / Crossmatch: No Data to Display Complete Blood Count: No Data to Display Complete Metabolic Panel: No Data to Display Liver Function Panel: No Data to Display Coagulation Panel: No Data to Display Cardiac Panel: No Data to Display Arterial Blood Gas: No Data to Display Venous Blood Gas: No Data to Display Pancreas Panel: No Data to Display Thyroid Panel: Thyroid Stimulating Hormone (TSH) 3.37 uIU/mL (0.36-3.74) 02/09/24 09:11 Infectious Disease: No Data to Display Blood Cultures: No Data to Display Toxicology Panel: No Data to Display Panel: No Data to Display Imaging and Studies Imaging and Studies Study information below may be from another EMR and interpreted by another provider. Please see original notes in EMR for more complete details. EKG Summary: 07/10/21 Conclusion Sinus rhythm...normal P axis, V-rate 60- 99 I have reviewed and I agree with the emergency room physician's ECG interpretation. Other Study Summary:: 2022 holter monitor read reviewed- NSR with some PACs- see results in chart Anesthesia Assessment and Plan Anesthesia History Personal History: No History of Anesthesia Complications Family History: No Family History of Anesthesia Complications Exercise Tolerance Exercise Tolerance: Metabolic Equivalents>4 Pertinent Negatives Pertinent Negatives: No Symptoms of GERD, No Major Cardiovascular Symptoms or Complaints, No Major Pulmonary Symptoms or Complaints and No History of CVA/TIA Cardiac & Pulmonary Exam Cardiac Exam: Normal S1/S2 Heart Sounds Pulmonary Exam: Clear Bilateral Breath Sounds Implantable Cardiac Device Does patient have a Pacemaker or an ICD?: No Airway Exam Known Difficult Airway: No Mallampati Class: 3 Mouth Opening: Normal (> 3cm) Thyromental Distance: Greater than 3 cm Neck Range of Motion: Full ROM Neck Circumference: Normal Teeth Condition: Normal Dentition ASA Classification ASA Score: ASA 2 Emergency Case?: No NPO Status NPO Status: NPO Clears >2 hours, Solids >8 hours Status Status: Negative HCG Anesthesia Plan Resuscitation Status: Full Code Anesthesia Technique: General Anesthesia Airway Planned: Endotracheal Tube Monitors Used: Standard Monitors
--- NOTE | 2024-03-02 11:45 | DI.RAD_ITS ---
Exam(s) XR WRIST LT LIMITED EXAM: XR WRIST LT LIMITED CLINICAL HISTORY: left distal ulna fracture. TECHNIQUE: 2D and realtime digital imaging was performed. COMPARISON: CR XR WRIST LT COMPLETE from 02/18/2024 FINDINGS: Hard copy images show placement of a fixation plate along the distal ulna for fracture fixation. The alignment appears satisfactory. Please see procedure note for details. Fluoro time: 1 minutes 59 seconds RADIATION DOSE DELIVERED: alonso Adam=0.69 mGy
[2024-03-02] MEDS: Celecoxib 200 MG CAP 400 MG PO (12:18)
[2024-03-02] MEDS: Acetaminophen 500 MG TAB 1000 MG PO (12:18)
[2024-03-02] MEDS: Lactated Ringers 1,000 ML 80 ML IV (12:25)
--- NOTE | 2024-03-02 12:32 | W.PM.DSUDISC ---
Date of service: 03/02/24 Time of Service: 12:36 Discharge Plan Disposition Patient Disposition: Home Condition: Good Discharge Details Reason For Visit: Left Distal Ulna Fracture Attending Provider: Marbin Brand Primary Care Provider: Anuja Cai Home Meds and New Rx's Prescriptions: New acetaminophen 500 mg tablet 1,000 mg PO Q8H PRN (Reason: pain) Qty: 90 3RF ibuprofen 600 mg tablet 600 mg PO TID PRN (Reason: pain) Qty: 60 3RF oxycodone 5 mg tablet 5 mg PO Q6H PRN (Reason: pain) Qty: 12 0RF Continued cholecalciferol (vitamin D3) 1,250 mcg (50,000 unit) capsule 1,250 mcg PO QWEEK Qty: 12 3RF fluticasone propionate 50 mcg/actuation spray,suspension 1 spray LAVELLE BID Qty: 15.8 12RF Rx Instructions: administer into each nostril docusate sodium [Colace] 100 mg capsule 100 mg PO QHS Qty: 30 1RF cetirizine [All Day Allergy (cetirizine)] 10 mg tablet 10 mg PO DAILY PRN (Reason: allergy symptoms) Qty: 90 3RF famotidine 20 mg tablet 20 mg PO DAILY Qty: 90 3RF lisinopril 10 mg tablet See Rx Instructions .ROUTE .COMPLEX Qty: 90 1RF Dose Instruction: TAKE ONE TABLET BY MOUTH EVERY DAY Rx Instructions: TAKE ONE TABLET BY MOUTH EVERY DAY levothyroxine 125 mcg tablet 125 mcg PO DAILY Qty: 90 0RF Discontinued tramadol 25 mg tablet 25 mg PO Q8H PRN (Reason: severe pain (scale score 7-10)) Qty: 30 0RF Rx Instructions: Trial for severe pain, pre-surgery Discharge Instructions Additional Instructions: Wrist Fracture Fixation Discharge Instructions Activity: You should keep the hand/wrist elevated as much as possible for the first few days. You may use the other fingers as tolerated but avoid trying to do too much too soon. You may perform light activities with the splint in place. Dressing/Cast: Your splint should stay in place at all times. Do NOT get it wet. You may loosen the KVNG wrap if you feel it is too tight and then rewrap more loosely. Medications: - You should take Tylenol and Ibuprofen for baseline pain control. - You have been prescribed a stronger pain medication, Oxycodone, for breakthrough pain. - You may apply ice over the wrist, just double bag so it doesn't get wet. Follow-up: 10-14 days Equipment/Supplies: Splint and Sling Activity:: Elevate Remove Dressings/Wound Care:: Do Not Remove Shower/Bathe:: Cover Diet:: As Tolerated Discharge Orders Discharge Orders: Discharge Order (Routine); Ordered 03/02/24 Ordered By: Marbin Brand
[2024-03-02] MEDS: ceFAZolin 2 GM/50 ML BAG IVPB (12:35)
[2024-03-02] MEDS: Bupivacaine 0.5% Pres-Free W/EPI 30 ML VIAL (14:58)
[2024-03-02] MEDS: oxyCODONE 5 MG TAB PO (16:00)
--- NOTE | 2024-03-02 16:06 | ROE_ITS ---
Date of service: 03/02/24 Time of Service: 12:40 Operative Note Operative Note DATE OF PROCEDURE: 03/02/24 PRE-OP DIAGNOSIS: Left distal ulna fracture POST-OP DIAGNOSIS: same PROCEDURE: Open reduction internal fixation of left distal ulna fracture SURGEON: Marbin Brand CERTIFIED SUBSTANCE ABUSE COUNSELOR: Julisa Joya ANESTHESIA TYPE: General LMA/ETT Refer to Anesthesia Record ESTIMATED BLOOD LOSS: 50 TOURNIQUET TIME: 0 COMPLICATIONS: None Patient was transported to: PACU Patient's condition: stable Indications: Teri is a 43-year-old female who suffered a left distal ulna fracture. This fracture had moved from her initial x-rays to the first clinical evaluation she had significant pain despite immobilization. Therefore, I offered open reduction internal fixation. I reviewed the risk of the procedure with her to include bleeding, infection, pain, stiffness, hardware prominence, hardware failure, tendon irritation, damage to nerves and vessels, damage to muscle and tendons, need for repeat procedures, malunion, nonunion. Despite these risk, she elected to proceed. Findings: There is a fracture of the distal ulna which was challenging to fully reduce. The fracture pattern was a long oblique over the radial aspect of the distal ulna with a transverse segment right below the ulnar neck. The ulnar head seem to have some ulnar displacement which is hard to reduce. Reduction of the shaft component was made and to avoid any irritation ECU tendon and a distal ulnar plate was placed over the volar aspect of the ulnar head trapping the ulnar head against the shaft. Procedure Description: Teri was greeted the preoperative holding area. Her identity was confirmed the correct site was identified and marked. The consent was reviewed the patient and signed. She was taken to the operating room placed in the supine position with the left arm on a hand table. A nonsterile tourniquet placed up high on the left arm although was not used during the case. The left arm was then prepped ChloraPrep and draped in a standard fashion. Prophylactic antibiotics in the form of cefazolin were given. A timeout is performed for safe surgery. A longitudinal incision was made overlying the subcutaneous border of the ulna. This was taken down from the distal aspect of the ulna for approximately 6 cm. This taken sharply the skin. Blunt dissection was carried down the subcutaneous tissues. There is no crossing or structures identified. The subcutaneous border of the ulna was identified and the periosteum was incised. The fracture was challenging to identify. The capsule of the distal ulna, distal radial joint covered up the fracture. This was incised the show the transverse nature of the fracture at the level of the distal ulna. Based on the x-rays my suspicion was that this was more of an oblique pattern exiting out the ulna at the level shaft but it actually for more of an L-type fracture with the entire ulnar head attached to a thin, oblique fracture going down to the shaft. Subperiosteal dissection was carried out in order to identify the fracture. Fibrous tissue was removed. There is no bony union or any significant union seen between the fracture. It was grossly mobile with manipulation of the distal ulnar head. These tissues were retracted and with visualization of the shaft portion of the fracture was able to reduce this by moving the distal fragment radial and distal. This reduced the shaft fracture and then placed the lag screw across this fracture. There is no significant space for placement of screws distally so I decided to use a distal ulna plate which had 2 hooks and some 2 oh locking screws. In order to avoid any irritation of the ECU tendon I placed this plate over the volar aspect of the distal ulna, volar to the ulnar styloid. Once this had some purchase into the capsular tissues and the end of the distal ulna I brought it down to the shaft. A single nonlocking screw was then placed to bring the plate down to bone. During this process, unfortunately, this moved to the ulnar head which displaced the thin oblique fragment distally. Therefore, I remove the nonlocking screw as well as the interfragmentary lag screw. I kept the plate in position distally and then rereduced the fracture. The plate was then positioned down to bone and a clamp was utilized to hold the fracture during the entire placement of all screws. 2 locking screws were placed into the ulnar head. Combination of nonlocking screws and locking screws placed in the shaft. Locking screws were utilized to help control against shear and rotational forces. Once these were placed the clamps were removed and the fracture was stable. However, there was significant strain across the distal ulna head, fracture junction. Through supination and pronation there is no significant motion appreciated. Final x-rays were obtained. The plate was in a palmar position but seem to be with all screws within the shaft and the head of the ulna. Direct visualization and palpation showed no impingement on the other soft tissues. The wound was then thoroughly irrigated. The subcutaneous and deep tissues were injected with 0.25% bupivacaine. The deep layer was closed with 2-0 Vicryl. The subcutaneous layer was closed with 3-0 Vicryl in a buried fashion. The skin was closed with a running 4-0 Monocryl. She was then placed into an ulnar gutter splint. At the end the case all counts are correct. She is transition back to the PACU in stable condition.
--- NOTE | 2024-03-02 16:16 | W.ANESPOSTOP ---
Postoperative Evaluation Date, Time and Location Date Performed: 03/02/24 Time Performed: 16:10 Patient Location: Day Surgery Unit Vital Signs Most Recent Imported Vital Signs: Most Recent Vital Signs Temp Pulse Resp BP Pulse Ox 36.6 C 76 16 109/76 100 03/02/24 15:55 03/02/24 15:55 03/02/24 15:55 03/02/24 15:55 03/02/24 15:55 Pain Score Most Recent Pain Score: Most Recent Pain Score Pain Level 7 03/02/24 15:55 Assessment Mental Status: Awake (Alert & Oriented to Patient Baseline) Airway and Respiratory Function: Patent airway with normal (patient baseline) respiratory exam Cardiovascular Function: Hemodynamically Stable Hydration Status: Adequately Hydrated Nausea & Vomiting: No Nausea or Vomiting Pain: Pain is Moderate or Severe Postoperative Pain Management: Pain being addressed with medication Peripheral Nerve Block: Patient did not receive a nerve block
== END 2024-03-02 16:57 | disposition home or self-care (01) ==
PROVIDERS: PCP Nurse Practitioner; Visit Provider Student in an Organized Health Care Education/Training Program
PROC: (CPT 25545; principal; 2024-03-02 13:30)
DX: S52.692A Other fracture of lower end of left ulna, initial encounter for closed fracture (principal); E66.9 Obesity, unspecified; I10 Essential (primary) hypertension; G47.33 Obstructive sleep apnea (adult) (pediatric); X58.XXXA Exposure to other specified factors, initial encounter
CPT/HCPCS: 25545; 76000; 81025; 73100; J0690; J1100; J2001; J2250; J2371; J2405; J2704

== ENCOUNTER 2024-03-14 15:03 | Outpatient (CLI) | payer MEDICAID, SELFPAY ==
--- NOTE | 2024-03-14 14:15 | DI.RAD_ITS ---
Exam(s) XR WRIST LT COMPLETE EXAM: XR WRIST LT COMPLETE CLINICAL HISTORY: S/P ORIF L DISTAL RADIUS FX. TECHNIQUE: 2D digital imaging was performed of the left wrist. Three images were obtained. PA, obl ique and lateral views were obtained. COMPARISON: CR XR WRIST LT COMP NAVICULAR from 02/05/2024 CR XR WRIST LT COMPLETE from 02/18/2024 CR XR WRIST LT LIMITED from 03/02/2024 FINDINGS: BONES: The patient is status post open reduction and internal fixation of the distal ulnar fracture. The alignment appears stable. No new fracture is seen. No bony destructive lesion is seen. JOINTS: The carpal bones are normally aligned. SOFT TISSUE: Normal. IMPRESSION: Stable alignment of the distal left ulnar fracture. DATA REPOSITORY: RADIATION DOSE DELIVERED:
== END 2024-03-14 15:04 | disposition home or self-care (01) ==
LOC: DIORS 15:03
PROVIDERS: PCP Nurse Practitioner; Visit Provider Student in an Organized Health Care Education/Training Program
DX: S52.602A Unspecified fracture of lower end of left ulna, initial encounter for closed fracture (principal); X58.XXXA Exposure to other specified factors, initial encounter
CPT/HCPCS: 73110

== ENCOUNTER 2024-03-21 05:25 | Outpatient (CLI) | payer MEDICAID, SELFPAY ==
[2024-03-21 09:56] LABS: ESR 4 mm/hr (0-20)
[2024-03-21 10:28] LABS: ALT 20 U/L (14-59); AST 12 U/L (15-37); Alkaline Phosphatase 42 U/L (46-116); Anion Gap 7.2 mmol/L (3-11); BUN 11 mg/dL (7-18); Bilirubin, Total 0.6 mg/dL (0.2-1.0); CO2 28.8 mmol/L (21.0-32.0); CREATININE 0.9 mg/dL (0.55-1.02); Calcium 9.2 mg/dL (8.5-10.1); Calculated LDL 115 mg/dL (<100); Chloride 103 mmol/L (98-107); Cholesterol 184 mg/dL (<200); Estimated GFR 81.86 (mL/min/1.73m2); Glucose 89 mg/dL (74-106); HDL Cholesterol 58 mg/dL (40-60); Potassium 3.9 mmol/L (3.5-5.1); Sodium 139 mmol/L (136-145); Total Protein 7.5 g/dL (6.4-8.2); Triglyceride 55 mg/dL (<150)
[2024-03-21 10:37] LABS: C-Reactive Protein < 0.50 mg/dL (<or=0.5)
[2024-03-21 17:44] LABS: Rheumatoid Factor 10.5 IU/mL (<12.0)
[2024-03-22 09:31] LABS: Cyclic Citrullinated Peptide <2.5 U/mL (<5.0)
[2024-03-22 14:37] LABS: ANA Interpretation Positive (Negative)
== END 2024-03-21 05:26 | disposition home or self-care (01) ==
LOC: LBO 05:25
PROVIDERS: Absent Provider Nurse Practitioner; PCP Nurse Practitioner; Referring Provider Nurse Practitioner; Visit Provider Nurse Practitioner
DX: R53.83 Other fatigue (principal); I10 Essential (primary) hypertension; E78.5 Hyperlipidemia, unspecified
CPT/HCPCS: 36415; 80053; 80061; 85652; 86200; 86038; 86140; 86431

== ENCOUNTER → 2024-03-30 04:15 | Outpatient (CLI) | payer MEDICAID, SELFPAY ==
--- NOTE | 2024-03-30 12:39 | DI.MAMMO_ITS ---
Exam(s) MAMMO SCREENING EXAM: MAMMO SCREENING CLINICAL HISTORY: screening TECHNIQUE: Mammograms were interpreted according to the usual protocol including computer analysis w [employer] CAD system, tomosynthesis and C-view imaging. COMPARISON: 2021 and 2022 FINDINGS: The breasts are composed of scattered fibroglandular densities, Breast Density category B. No suspicious masses or suspicious microcalcifications are seen. Question of and increased prominenc e of tissue in the left breast, slightly medial to center when compared with the 2021 exam. No signi ficant change when compared with 2022. Spot compression views and ultrasound are requested for furth er evaluation. No definite abnormality seen on the MLO view. No skin thickening or abnormal axillary lymph nodes are seen. There has been no significant change in the right breast from prior exams. IMPRESSION: BI-RADS Category 0 - Assessment Incomplete: Need additional imaging evaluation . Breast Density - Category B, scattered fibroglandular densities. A negative radiographic report should not delay biopsy if a dominant or clinically suspicious mass is present. Up to ten percent of cancers are not identified on mammography. A negative report may reinforce clinical impression. Adenosis and dense breasts may obscure an underlying neoplasm. False positive reports average 6 to 10%. Patient will receive a letter notifying them of these results.
== END ==
PROVIDERS: PCP Nurse Practitioner; Visit Provider Nurse Practitioner Women's Health
DX: Z12.31 Encounter for screening mammogram for malignant neoplasm of breast (principal)
CPT/HCPCS: 77063; 77067

== ENCOUNTER → 2024-04-01 00:11 | Outpatient (CLI) | payer MEDICAID, SELFPAY ==
--- NOTE | 2024-04-01 | DI.US_ITS ---
Exam(s) MG MAMMO SCREEN CALL BACK UNI US BREAST LT LIMITED EXAM: MG MAMMO SCREEN CALL BACK UNI CLINICAL HISTORY: F/U MAMMO, INCREASED PROMINENCE TISSUE LT BREAST. TECHNIQUE: Craniocaudal and mediolateral oblique spot compression digital Mammography views of the b reast with Tomosynthesis and breast ultrasound. COMPARISON: MG MG MAMMO SCREENING from 02/12/2022 MG MG MAMMO SCREENING from 03/24/2023 MG MG MAMMO SCREENING from 03/30/2024 FINDINGS: Mammography/Tomosynthesis: Masses: None seen. Spot compression views shows no significant change from prior examinations. Architectural Distortion: None seen. Microcalcifictions: No suspicious pleomorphic-type are seen. Skin Thickening/Nipple Retraction: None. Left Breast US: Echotexture: Normal appearance of the glandular tissue. Shadowing: No suspicious foci. Cyst: None. Solid lesions: None seen. Ductal dilation: None. IMPRESSION: 1. No evidence of malignancy is noted. 2. Unless there is more urgent need, follow-up screening mammography is recommended, as per [place] [employer] guidelines. 3. The findings were discussed with the patient on the date of the examination. BI-RADS Category 1 - Negative Breast Density - Category B - Scattered areas of fibroglandular density A mammogram that demonstrates density of C or D indicates the patient's breast tissue is dense. Dense breast tissue is very common and is not abnormal, but dense breast tissue can make it harder to find cancer on a mammogram. Also, dense breast tissue may increase their breast cancer risk. This informa tion about the result of the mammogram report was provided to the patient to raise their awareness. U se this report when you speak with the patient about their risks for breast cancer, which includes th eir family history. At that time, you may recommend for more screening tests (Ultrasound or MRI) as t hey might be useful based on their risk. A negative radiographic report should not delay biopsy if a dominant or clinically suspicious mass is present. Up to ten percent of cancers are not identified on mammography. A negative report may reinforce clinical impression. Adenosis and dense breasts may obscure an underlying neoplasm. False positive reports average 6 to 10%. Patient will receive a letter notifying them of these results.
== END ==
PROVIDERS: PCP Nurse Practitioner; Visit Provider Nurse Practitioner Women's Health
DX: Z12.31 Encounter for screening mammogram for malignant neoplasm of breast (principal); R92.8 Other abnormal and inconclusive findings on diagnostic imaging of breast
CPT/HCPCS: 76642; 77063; 77067

== ENCOUNTER 2024-04-11 10:59 | Outpatient (CLI) | payer MEDICAID, SELFPAY ==
--- NOTE | 2024-04-11 08:45 | DI.RAD_ITS ---
Exam(s) XR WRIST LT COMPLETE EXAM: XR WRIST LT COMPLETE CLINICAL HISTORY: F/U L WRIST. TECHNIQUE: 2D digital imaging was performed. Three images were obtained. PA, lateral and oblique vi ews were obtained. COMPARISON: CR XR WRIST LT COMPLETE from 03/14/2024 FINDINGS: BONES: There are stable post operative changes present. The distal ulnar fracture lines are less wel l visualized suggesting some interval healing. No new fracture or dislocation. JOINTS: The joint spaces are well maintained. SOFT TISSUE: Normal. IMPRESSION: Stable postoperative changes. DATA REPOSITORY: RADIATION DOSE DELIVERED:
--- NOTE | 2024-04-11 09:15 | DI.RAD_ITS ---
Exam(s) XR ELBOW LT COMPLETE EXAM: XR ELBOW LT COMPLETE CLINICAL HISTORY: F/U L ULNA FX. TECHNIQUE: 2D digital imaging was performed. COMPARISON: No exams were available for comparison FINDINGS: No evidence of fracture or joint effusion. No swelling of the olecranon bursa. Radial head and neck appear unremarkable. Epicondyles unremarkable. No degenerative changes. No loose bodies. Bone de nsity normal. No osseous lesions. IMPRESSION: No significant osseous findings in the elbow. DATA REPOSITORY: RADIATION DOSE DELIVERED:
== END 2024-04-11 11:00 | disposition home or self-care (01) ==
LOC: DIORS 10:59
PROVIDERS: PCP Nurse Practitioner; Visit Provider Student in an Organized Health Care Education/Training Program
DX: S52.615D Nondisplaced fracture of left ulna styloid process, subsequent encounter for closed fracture with routine healing (principal); X58.XXXD Exposure to other specified factors, subsequent encounter
CPT/HCPCS: 73080; 73110

== ENCOUNTER 2024-04-12 05:13 | Outpatient (CLI) | payer MEDICAID, SELFPAY ==
[2024-04-12 09:35] LABS: TSH (W/Ref FT4) 0.29 uIU/mL (0.36-3.74)
[2024-04-12 10:05] LABS: FREE T4 1.53 ng/dL (0.76-1.46)
== END 2024-04-12 05:14 | disposition home or self-care (01) ==
LOC: LBO 05:13
PROVIDERS: PCP Nurse Practitioner; Referring Provider Nurse Practitioner; Visit Provider Nurse Practitioner
DX: E03.9 Hypothyroidism, unspecified (principal)
CPT/HCPCS: 36415; 84439; 84443

== ENCOUNTER 2024-05-23 15:46 | Outpatient (CLI) | payer MEDICAID, SELFPAY ==
--- NOTE | 2024-05-23 09:15 | DI.RAD_ITS ---
Exam(s) XR WRIST LT COMPLETE EXAM: XR WRIST LT COMPLETE CLINICAL HISTORY: F/U L WRIST FX. TECHNIQUE: 2D digital imaging was performed. Three images were obtained. AP, lateral and oblique vi ews were obtained. COMPARISON: CR XR WRIST LT COMPLETE from 02/18/2024 CR XR WRIST LT COMPLETE from 04/11/2024 FINDINGS: BONES: There are stable post operative changes present. There is again seen a sideplate and screws t ransfixing the distal ulnar fracture. Fracture line is still visualized but less apparent suggesting some interval healing. No new fracture or dislocation. JOINTS: The joint spaces are well maintained. SOFT TISSUE: Normal. IMPRESSION: Stable postoperative changes. DATA REPOSITORY: RADIATION DOSE DELIVERED:
== END 2024-05-23 15:47 | disposition home or self-care (01) ==
LOC: DIORS 15:47
PROVIDERS: PCP Nurse Practitioner; Visit Provider Student in an Organized Health Care Education/Training Program
DX: S52.602A Unspecified fracture of lower end of left ulna, initial encounter for closed fracture (principal)
CPT/HCPCS: 73110

== ENCOUNTER 2024-06-10 18:43 | Outpatient (REF) | payer MEDICAID, SELFPAY ==
[2024-06-10 12:16] LABS: Chlamydia Result Negative (Negative); GC Result Negative (Negative)
--- OUTSIDE RECORDS SUMMARY | 2024-06-10 18:44 | XMS_ITS | Clinical Summary ---
Author Organization [facility] Address [address] [place] [address] Care Team Providers Care Gas Meter Reader Name Role Phone Kaylynn Gimenez MD Primary Care Provider + [phone] Allergies Active Allergy Reactions Criticality Noted Date Comments House Dust 02/04/2023 Multiple environmental allergies. House Dust Mite 11/21/2020 Kiwi Anaphylaxis High 11/21/2020 Other reaction(s): Anaphylaxsis Medications Medication Sig Dispensed Refills Start Date End Date Status omeprazole (PRILOSEC) 40 mg capsuleIndications:P eptic ulcer disease Take 1 Cap by mouth daily. 90 Cap 4 03/02/2012 Active folic acid (FOLVITE) 1 mg tablet Take 3 Tabs by mouth daily. 100 Tab 0 02/06/2014 Active Additional Information Patient not taking.Reported on 02/04/2023 levothyroxine (SYNTHROID) 100 mcg tablet Take 1 Tab by mouth daily. 90 Tab 1 04/26/2014 Active Additional Information Patient taking differently: 112 mcgoral DAILY, Reported on 02/04/2023 acetaminophen (TYLENOL) 325 mg tablet Take 1-2 Tabs by mouth every 4 hours as needed for Pain. 07/20/2014 Active docusate sodium (COLACE) 100 mg capsule Take 1 Cap by mouth 2 times daily as needed for Constipation. 07/20/2014 Active blood glucose meter Use 1 Device as directed daily. Brand: per insurance preference 1 Each 06/12/2022 Active lisinopriL (PRINIVIL) 10 mg tablet Take 10 mg by mouth daily. Active fluticasone propionate (FLONASE) 50 mcg/actuation nasal spray FLONASE ALLERGY RELIEF 50 MCG/ACT SUSP Active QUICKVUE AT-HOME COVID-19 TEST kit Use as directed. 11/30/2022 A ctive loratadine/pseudoeph edrine (CLARITIN-D 24 HOUR ORAL) Take by mouth. Active Active Problems Problem Noted Date Diagnosed Date Supervision of other high-risk 014 Overview: Rh+/ab screen neg/HIV neg/HCV neg/HbSag neg/sts NR/RI Ucx neg Integrated screen low risk Normal detailed ENIO S/p flu shot 08/08 ICD10 Update Auto Replacement Last Assessment & Plan: Rh+/ab screen neg/HIV neg/HCV neg/HbSag neg/sts NR/RI Ucx neg Integrated screen low risk Normal detailed ENIO Short cervix, antepartum 07/11/2014 Overview: Cerclage placed at 17+5 for short cervix (15 mm) Last Assessment & Plan: Cerclage placed at 17+5 for short cervix (15 mm) Exposure to hepatitis C 06/13/2014 Overview: Partner with hep C Neg VL Last Assessment & Plan: The patient is negative for Hep C Ab. Partner has disease, but unaware if he has active disease. He will check with his physician. with history of pre-term labor 014 Overview: Delivered at 20 weeks with her first (2002 uterine septum); Hysteroscopic resection one year later. Second (2007) used vaginal progesterone for history of this early delivery. 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 Needs repeat in 1 year! 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 Obstructive sleep apnea syndrome 11/27/2010 Resolved Problems Problem Noted Date Diagnosed Date Resolved Date Heart murmur 02/06/2011 04/28/2014 Overview: As a child Atypical chest pain 02/06/2011 04/28/20 14 Hypothyroidism 02/03/2011 04/28/2014 Overview: ICD10 Update Auto Replacement Hypothyroidism 11/27/2010 04/28/2014 Morbid obesity ([facility]) 11/27/201010/2011 Encounters Date Type Department Care Team Description 06/09/2024 Lab Requisition [facility] Pathology & Laboratory [address] [address] Outr Resulting Lab, Provider 03/21/2024 Lab Requisition [facility] Pathology & Laboratory [address] [address] Outr Resulting Lab, Provider from Last 3 Months Immunizations Name Administration Dates Next Due Influenza Vaccine Quad (AFLURIA) PF 0.5 ml IM (3 yrs+) 08/08/2014 Td 12/03/1999 Surgical History Surgery Date Site/Laterality Comments UPPER GASTROINTESTINAL ENDOSCOPY 09/03/2010 WISDOM TOOTH EXTRACTION ENDOMETRIAL BIOPSY Medical History Medical History Date Comments History of tobacco use Thyroid disease Uterine congenital anomaly in 2003 Hysteroscopic Resection Family History Medical History Relation Comments Diabetes Father Heart Disease Father MO Thyroid Cancer/Nodule Maternal Aunt 1 Cancer Cancer Maternal Aunt 2 thyroid Diabetes Maternal Grandmother Heart Disease Maternal Grandmother MO High Blood Pressure Mother brain aneury sm Stroke Mother Relation Status Comments Father Maternal Aunt 1 Maternal Aunt 2 Maternal Grandmother Mother Social History Tobacco Use Types Packs/Day Years Used Date Smoking Tobacco: Former Cigarettes Q uit: 04/08/2014 Smokeless Tobacco: Never Alcohol Use Standard Drinks/Week Comments No 16.7 (1 standard drink = 0.6 oz pure alcohol) Interpersonal Safety Answer Date Record ed Physically Hurt Never 03/05/2021 Verbally Threaten Not on file 03/05/2021 Sex and Gender Information Value Date Recorded Sex Assigned at Not on file Gender Identity Not on file Sexual Orientation Not on file Obstetrics History Para Term AB IAB SAB Ectopic Multiple Livin g Live Births 4 1 1 2 2 1 1 Date Outcome GA Total Labor Labor/2nd/3rd Weight Sex Type Anes PTL Jolynn A1 A5 Name Clin 2002 SAB 20w 0d Comments:stillborn 008 Term 39w 0d 3657 g (8 lb 1 oz) F Vag-S pont Living 2013 SAB Comments:chemical preg bobbi Last Filed Vital Signs Vital Sign Reading Time Taken Comments Blood Pressure 120/62 08/08/2014 1131 EDT Pulse 77 07/20/2014 0814 EDT Temperature 37 ??C (98.6 ??F) 07/20/2014 0814 EDT Respiratory Rate 18 07/20/2014 0814 EDT Oxygen Saturation 99% 07/20/2014 0814 EDT Inhaled Oxygen Concentration - - Weight 95.3 kg (210 lb) 02/04/2023 1133 EDT Height 170.2 cm (5' 7) 02/04/2023 1133 EDT Body Mass Index 32.89 02/04/2023 1133 EDT Plan of Treatment Upcoming Encounters Date Type Department Care Team (Late st Contact Info) Description 12/29/2024 10:20 EST Office Visit [facility] Rheumatology & Immunology - [address] [phone] Micaela Hoff MD [address] [place] [address], [address] [place] [address] Health Maintenance Due Date Last Done Comments Hepatitis B Vaccine (1 of 3 - 19+ 3-dose series) 2000 COVID-19 Vaccine (2022-2 4 season) 2023 Hepatitis C Screen Completed 03/14/2022, 0 07/16/2021, 04/26/2014, Additional history exists Procedures Procedure Name Priority Date/Time Associated Diagnosis Comments CHLAMYDIA/N. GONORRHOEAE AMPLIFIED NUCLEIC ACID Routine 06/08/2024 15:45 EDT RHEUMATOID FACTOR Routine 03/21/2024 9:0 4 EDT ANTI NUCLEAR AB (LIZZIE), IFA Routine 03/21/2024 9:04 EDT CCP ANTIBODIES Routine 03/21/2024 9:04 EDT HEPATITIS C AB W REFLEX TO HCV RNA BY PCR Routine 03/14/2022 10:10 EDT from Last 3 Months or Most Recently Relevant to Health Maintenance Results * CHLAMYDIA/N. GONORRHOEAE AMPLIFIED NUCLEIC ACID (06/08/2024 15:45 EDT) Neisseria gonorrhoeae Result Negative Negative 06/10/2024 12:11 EDT [facility] Chlamydia trachomatis Result Negative Negative 06/10/2024 12:11 EDT [facility] Swab VAGINAL STRUCTURE / Unknown 06/08/2024 15:45 EDT 06/09/2024 19:46 EDT Provider Outr Resulting Lab MICROBIOLOGY - GENERAL ORDERABLES Performing Organization Address City/[facility]/ZIP Co de Phone Number [facility] [address] [place] [phone] * CCP ANTIBODIES (03/21/2024 9:04 EDT) CCP Antibodies <2.5 <5.0 U/mL 03/22/2024 9:26 EDT [facility] Blood VENOUS BLOOD / Unknown 03/21/2024 9:04 EDT 03/21/2024 17:19 EDT Provider Outr Resulting Lab IMMUNOLOGY A ND SEROLOGY ORDERABLES [facility] [address] [place], [place] [address] * RHEUMATOID FACTOR (03/21/2024 9:04 EDT) Rheumatoid Factor 10.5 <12.0 IU/mL 03/21/2024 17:39 EDT [facility] Blood VENOUS BLOOD / Unknown 03/21/2024 9:04 EDT 03/21/2024 17:19 EDT Provider Outr Resulting Lab CHEMISTRY & BLOOD GAS ORDERABLES Performing Organization Address [facility] Co de Phone Number [facility] [address] [place], [place] [phone] * (ABNORMAL) ANTI NUCLEAR AB (LIZZIE), IFA (03/21/2024 9:04 EDT) Pathologist [facility] LIZZIE Interpretation Positive(A) Negative 03/22/2024 14:31 EDT [facility] Comment: For titers greater than or equal to 1:160 (except the centromere and nucleolar patterns) it is recommended that specific follow-up autoantibody testing ??(such as for dsDNA and Extractable Nuclear Antigens) be performed on all diffuse and/or speckled patterns NOTE: For add-on testing dsDNA is stable for 7 days refrigerated while Extractable Nuclear Antigens are only stable for 48 hours refrigerated. LIZZIE Titer and Pattern 1 1:320 Dense Fine Speckled 03/22/2024 14:31 EDT [facility] Blood VENOUS BLOOD / Unknown 03/21/2024 9:04 EDT 03/21/2024 17:19 EDT Narrative [facility] - 03/22/2024 14:31 EDT Results were obtained with the [employer]St[employer] NOVA Lite HEp-2 LIZZIE Kit by indirect immunofluorescence. Provider Outr Resulting Lab IMMUNOLOGY A ND SEROLOGY ORDERABLES Performing Organization Address [facility]/ZIP Co de Phone Number [facility] [address] [place], [place] [phone] * HEPATITIS C AB W REFLEX TO HCV RNA BY PCR (03/14/2022 10:10 EDT) Hep C Antibody Negative Negative 03/17/2022 10:18 EDT [facility] Blood VENOUS BLOOD / Unknown 03/14/2022 10:10 EDT 03/14/2022 17:17 EDT Provider Outr Resulting Lab CHEMISTRY & BLOOD GAS ORDERABLES [facility] [address] [place] [address] from Last 3 Months or Most Recently Relevant to Health Maintenance Additional Health Concerns Infection Onset Date Last Indicated 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 Advance Directives For more information, please contact: [phone] * Full Code (Latest Code Status on File) Date Activated Date Inactivated Comments 07/18/2014 22:50 07/20/2014 11:51 * Full Code Date Activated Date Inactivated Comments 07/18/2014 16:13 07/18/2014 22:50 * Full Code Date Activated Date Inactivated Comments 07/11/2014 13:00 07/11/2014 16:39 * Full Code Date Activated Date Inactivated Comments 06/29/2014 18:01 06/29/2014 20:14 Care Teams Gas Meter Reader Relationship Specialty Start Date End Date Kaylynn Gimenez MD [address] [place] [phone] PCP - General 03/02/15
--- OUTSIDE RECORDS SUMMARY | 2024-06-10 18:45 | XMS_ITS | Encounter Summary ---
Author Organization [facility] Address [address] [place] [address] Care Team Providers Care Flight Crew Time Clerk Name Role Phone Kaylynn Gimenez MD Primary Care Provider + [phone] Reason for Visit * Reason Onset Date Comments New/Evolving Symptoms 06/03/2022 Spasms 06/03/2022 Fatigue 06/03/2022 Dizziness 06/03/2022 Encounter Details Date Type Department Care Team (Late st Contact Info) Description 06/03/2022 Telephone [facility] Endocrinology - [facility] [address] [place] [address] Yaya Hensley MD [address] [facility] [address] [place] [address] New/Evolving Symptoms; Spasms; Fatigue; Dizziness Social History Tobacco Use Types Packs/Day Years [...] on file Sexual Orientation Not on file documented as of this encounter Ordered Prescriptions Prescription Sig Dispensed Refills Start Date End Da te blood glucose meter Use 1 Device as directed daily. Brand: per insurance preference 1 Each 06/12/2022 blood glucose test strips Use 1 Strip as directed daily. Brand: Per insurance preference 100 Each 3 06/12/2022 06/12/2023 lancets Use 1 lancet as directed daily. Brand: Per insurance preference 100 Each 3 06/12/2022 06/12/2023 blood glucose test strips Use 1 Strip as directed daily. Brand: Per insurance preference 100 Each 3 06/12/2022 06/12/2022 blood glucose meter Use 1 Device as directed daily. Brand: per insurance preference 1 Each 06/12/2022 06/12/2022 documented in this encounter Miscellaneous Notes * Addendum Note - Carol Chu RN - 06/12/2022 1506 EDTAddended by: CAROL CHU on: 06/12/2022 15:06 Modules accepted: Orders * Telephone Encounter - Carol Chu RN - 06/12/2022 1505 EDT Placed call to pt and relayed provider directive. Verified pharmacy and lab preference. Processed BG testing supplies and e-faxed lab orders. Patient verbalized understanding. No barriers to learningnoted. Carol Chu RN * Addendum Note - Carol Chu RN - 06/12/2022 1501 EDTAddended by: CAROL CHU on: 06/12/2022 15:01 Modules accepted: Orders * Addendum Note - Yaya Hensley - 06/06/2022 1250 EDTAddended by: YAYA HENSLEY on: 06/06/2022 12:50 Modules accepted: Orders * Telephone Encounter - Yaya Hensley - 06/06/2022 1249 EDT I approve of plan but would also like to add morning (before 10AM) ACTH and cortisol. I am not surewhere to send labs so have not signed * Addendum Note - Carol Chu RN - 06/06/2022 1107 EDTAddended by: CAROL CHU on: 06/06/2022 11:07 Modules accepted: Orders * Telephone Encounter - Carol Chu RN - 06/06/2022 1042 EDT Pt returned call. She reports symptoms began about 4-5 weeks about, starting with increase in fatigue and dizziness. She reports fatigue has now turned into hypersomnia and it is affecting her activities of daily life. She also reports muscle spasms and an increase in appetite, however, has lost 5 lbs in last week. No recent lab work available, pt reports Vit d was low. PCP recommendation was to start supplements. In regards to dizziness, pt reports daughter has Type 1 DM and has occasionally tested BG when dizzy, BG reported as 50 during symptomatic episode Currently taking: Levothyroxine 112 mcg daily Recommended plan: - TFT, CMP - Test fasting BG daily x 2 weeks Forwarding to provider for review and approval of recommended plan. Pended orders for provider approval if appropriate. Carol Cuh RN * Telephone Encounter - Jeane Salinas RN - 06/05/2022 1105 EDT Called pt and sent GANTECt message to pt. Seeking to gather more information regarding symptoms. Pt last seen via telemedicine by Dr. Hensley referred by PCP for hypoglycemia. Pt also has Mena's. Medications listed are: Levothyroxine 100 mcg daily (pt taking 112 mcg). Script by Dr. Rehan Abarca- script in record noted as ese written in 2013. Current dose unknown. Fourier Educationhart message sent to pt requesting more information: - current thyroid medication and dose(s) -difficulty sleeping? -what is PCP recommending? -more details regarding fatigue, dizziness -testing BG'S (pt with hx hypoglycemia-last labs- where and when? Requesting pt contact office. Jeane Salinas champagne maker * Telephone Encounter - Obed Malcolm - 06/03/2022 3333 EDT The patient went to her PCP about muscle spasms and they ran tests that showed electrolytes and vitamins are off. She has also been experiencing fatigue and dizziness and would like to speak to the nurse. 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 Brand: per insurance preference Reorder 06/12/2022 06/12/2022 blood glucose test strips Use 1 Strip as directed daily. Brand: Per insurance preference Reorder 06/12/2022 06/12/2022 documented as of this encounter Additional Health Concerns Infection Onset Date Last Indicated Resolved Time 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 Care Teams Flight Crew Time Clerk Relationship Specialty Start Date End Date Kaylynn Gimenez MD [address] [place] [phone] PCP - General 03/02/15 documented as of this encounter
--- OUTSIDE RECORDS SUMMARY | 2024-06-10 18:45 | XMS_ITS | Encounter Summary ---
Author Organization [facility] Address [address] [place] [address] Care Team Providers Care Rod Welder Name Role Phone Kaylynn Gimenez MD Primary Care Provider + [phone] Reason for Visit * Reason Onset Date Comments Appointment Related 02/04/2023 Encounter Details Date Type Department Care Team (Late st Contact Info) Description 02/04/2023 Telephone [facility] Endocrinology - [address] [address] Hina Townsend MD [address] [place] [phone] Appointment Related Social History Tobacco Use Types Packs/Day Years [...] on file documented as of this encounter Miscellaneous Notes * Telephone Encounter - Hina Elias MD - 02/04/2023 1036 EDT Patient is cancelling apt at last minute. Can we covert to video? * Telephone Encounter - Gilma Puente RN - 02/04/2023 0937 EDT Routing to [facility]. Gilma Puente, RN * Telephone Encounter - Susu Pantoja - 02/04/2023 0727 EDT Patient is calling to reschedule her appointment with Dr. Townsend for today at 1130, This is due tothe weather. Please call back to reschedule. documented in this encounter Plan of Treatment Upcoming Encounters Date Type Department Care Team (Late st Contact Info) Description 12/29/2024 10:20 EST Office Visit [facility] Rheumatology & Immunology - [address] [address] Micaela Hoff MD [address] [facility], [address] [place] [phone] documented as of this encounter Visit Diagnoses Not on filedocumented in this encounter Additional Health Concerns Infection Onset Date Last Indicated Resolved Time 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 Care Teams Rod Welder Relationship Specialty Start Date End Date Kaylynn Gimenez MD [address] [place] [phone] PCP - General 03/02/15 documented as of this encounter
--- OUTSIDE RECORDS SUMMARY | 2024-06-10 18:45 | XMS_ITS | Encounter Summary ---
Author Organization [facility] Address [address] [place] [address] Care Team Providers Care Education Professional Name Role Phone Kaylynn Gimenez MD Primary Care Provider + [phone] Encounter Details Date Type Department Care Team (Late st Contact Info) Description 03/14/2022 Lab Requisition [facility] Pathology & Laboratory Medicine [address] [address] Outr Resulting Lab, Provider Social History Tobacco Use Types Packs/Day Years [...] on file documented as of this encounter Plan of Treatment Upcoming Encounters Date Type Department Care Team (Late st Contact Info) Description 12/29/2024 10:20 EST Office Visit [facility] Rheumatology & Immunology - [address] [phone] Micaela Hoff MD [address] [place] [address], [address] [place] [phone] documented as of this encounter Procedures Procedure Name Priority Date/Time Associated Diagnosis Comments HEPATITIS C AB W REFLEX TO HCV RNA BY PCR Routine 03/14/2022 10:10 EDT documented in this encounter Results * HEPATITIS C AB W REFLEX TO HCV RNA BY PCR (03/14/2022 10:10 EDT) Hep C Antibody Negative Negative 03/17/2022 10:18 EDT [facility] Blood VENOUS BLOOD / Unknown 03/14/2022 10:10 EDT 03/14/2022 17:17 EDT Provider Outr Resulting Lab CHEMISTRY & BLOOD GAS ORDERABLES [facility] [address] [place] [address] documented in this encounter Visit Diagnoses Not on filedocumented in this encounter Additional Health Concerns Infection Onset Date Last Indicated Resolved Time 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 Care Teams Education Professional Relationship Specialty Start Date End Date Kaylynn Gimenez MD [address] [place] [phone] PCP - General 03/02/15 documented as of this encounter
--- OUTSIDE RECORDS SUMMARY | 2024-06-10 18:45 | XMS_ITS | Encounter Summary ---
Author Organization [facility] Address [address] [place] [address] Care Team Providers Care Communications Intern Name Role Phone Kaylynn Gimenez MD Primary Care Provider + [phone] Encounter Details Date Type Department Care Team (Late st Contact Info) Description 02/12/2023 Lab Requisition [facility] Pathology & Laboratory Medicine [address] [address] Outr Resulting Lab, Provider Social History Tobacco [...] [facility] Immunology - [address] [phone] Micaela Hoff MD [address] [place] [address], [address] [place] [phone] documented as of this encounter Procedures Procedure Name Priority Date/Time Associated Diagnosis Comments HOLD SST Today 02/12/2023 11:40 EDT HOLD SST Today 02/12/2023 11:40 EDT CCP ANTIBODIES Today 02/12/2023 11:40 EDT LYME AB Today 02/12/2023 11:40 EDT RHEUMATOID FACTOR Today 02/12/2023 11: 40 EDT ANTI NUCLEAR AB (LIZZIE), IFA Today 02/12/2023 11:40 EDT documented in this encounter Results * HOLD SST (02/12/2023 11:40 EDT) Hold Hold 02/12/2023 22:31 EDT [facility] Blood VENOUS BLOOD / Unknown 02/12/2023 11:40 EDT 02/12/2023 21:28 EDT Provider Outr Resulting Lab LAB INFO SER VICE AND SUPPORT & PHONE RESULT Performing Organization Address [facility] Co de Phone Number [facility] [address] [place] [address] * HOLD SST (02/12/2023 11:40 EDT) Hold Hold 02/12/2023 22:31 EDT [facility] Blood VENOUS BLOOD / Unknown 02/12/2023 11:40 EDT 02/12/2023 21:28 EDT Provider Outr Resulting Lab LAB INFO SER VICE AND SUPPORT & PHONE RESULT Performing Organization Address [facility] Co de Phone Number [facility] [address] [place] [address] * LYME AB (02/12/2023 11:40 EDT) Lyme Ab Negative Negative 02/13/2023 10:30 EDT [facility] Blood VENOUS BLOOD / Unknown 02/12/2023 11:40 EDT 02/12/2023 21:22 EDT Provider Outr Resulting Lab IMMUNOLOGY A ND SEROLOGY ORDERABLES Performing Organization Address [facility] Co de Phone Number [facility] [address] [place] [address] * (ABNORMAL) RHEUMATOID FACTOR (02/12/2023 11:40 EDT) Rheumatoid Factor 14.3(H) <12.0 IU/mL 02/12/2023 21:48 EDT [facility] Blood VENOUS BLOOD / Unknown 02/12/2023 11:40 EDT 02/12/2023 21:22 EDT Provider Outr Resulting Lab CHEMISTRY & BLOOD GAS ORDERABLES Performing Organization Address [facility] de Phone Number [facility] [address] [place] [address] * (ABNORMAL) ANTI NUCLEAR AB (LIZZIE), IFA (02/12/2023 11:40 EDT) LIZZIE Interpretation Positive(A) Negative 02/13/2023 15:40 EDT [facility] Comment: For titers greater than [...] and Pattern 1 1:320 Dense Fine Speckled 02/13/2023 15:40 EDT [facility] Blood VENOUS BLOOD / Unknown 02/12/2023 11:40 EDT 02/12/2023 21:22 EDT Narrative [facility] - 02/13/2023 15:40 EDT Results were obtained with the INOVA NOVA Lite HEp-2 LIZZIE Kit by indirect immunofluorescence. Provider Outr Resulting Lab IMMUNOLOGY A ND SEROLOGY ORDERABLES Performing Organization Address City/[facility] Co de Phone Number [facility] [address] [place] [address] * CCP ANTIBODIES (02/12/2023 11:40 EDT) CCP Antibodies <2.5 <5.0 U/mL 02/13/2023 9:13 EDT [facility] Blood VENOUS BLOOD / Unknown 02/12/2023 11:40 EDT 02/12/2023 21:22 EDT Provider Outr Resulting Lab IMMUNOLOGY A ND SEROLOGY ORDERABLES Performing Organization Address [facility] de Phone Number [facility] [address] [place] [address] documented in this encounter Visit Diagnoses Not on filedocumented in this encounter Additional Health Concerns Infection Onset Date Last Indicated Resolved Time 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 Care Teams Communications Intern Relationship Specialty Start Date End Date Kaylynn Gimenez MD [facility] [place] [phone] PCP - General 03/02/15 documented as of this encounter
--- OUTSIDE RECORDS SUMMARY | 2024-06-10 18:45 | XMS_ITS | Encounter Summary ---
Author Organization [facility] Address [address] [place] [address] Care Team Providers Care Call Or Contact Centre Team Leader Name Role Phone Kaylynn Gimenez MD Primary Care Provider + [phone] Encounter Details Date Type Department Care Team (Late st Contact Info) Description 03/12/2022 Lab Requisition [facility] Pathology & Laboratory Medicine [address] [address] Outr Resulting Lab, Provider Social History Tobacco [...] Info) Description 12/29/2024 10:20 EST Office Visit [facility] Rheumatology & Immunology - [address] [phone] Micaela Hoff MD [address] [place] [address], [address] [place] [phone] documented as of this encounter Procedures Procedure Name Priority Date/Time Associated Diagnosis Comments CHLAMYDIA/N. GONORRHOEAE AMPLIFIED NUCLEIC ACID Routine 03/12/2022 13:30 EDT documented in this encounter Results * CHLAMYDIA/N. GONORRHOEAE AMPLIFIED RNA (03/12/2022 13:30 EDT) Neisseria gonorrhoeae Result Negative Negative 03/13/2022 14:35 EDT [facility] Chlamydia trachomatis Result Negative Negative 03/13/2022 14:35 EDT [facility] Swab ENTIRE WALL OF CERVIX / Unknown 03/12/2022 13:30 EDT 03/12/2022 21:52 EDT Provider Outr Resulting Lab MICROBIOLOGY - GENERAL ORDERABLES Performing Organization Address City/State/[facility] Co de Phone Number [facility] [address] [place] [address] documented in this encounter Visit Diagnoses Not on filedocumented in this encounter Additional Health Concerns Infection Onset Date Last Indicated Resolved Time 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 Care Teams Call Or Contact Centre Team Leader Relationship Specialty Start Date End Date Kaylynn Gimenez MD [facility] [place] [address] PCP - General 03/02/15 documented as of this encounter
--- OUTSIDE RECORDS SUMMARY | 2024-06-10 18:45 | XMS_ITS | Encounter Summary ---
Author Organization [facility] Address [address] [place] [address] Care Team Providers Care Filling Hand Name Role Phone None, Provider Primary Care Provider Unavailabl e Encounter Details Date Type Department Care Team (Late st Contact Info) Description 08/08/2014 Orders Only [facility] Women's Services - [address] [address] Luz Maria Cortes LPN [address] [place] [address] Social History Tobacco Use Types Packs/Day Years Used Date Smoking Tobacco: Former Cigarettes Q uit: 04/08/2014 Smokeless Tobacco: Never Alcohol Use Standard Drinks/Week Comments No 16.7 (1 standard drink = 0.6 oz pure alcohol) Comments Yes Sex and Gender Information Value Date Recorded Sex Assigned at Not on file Gender Identity Not on file Sexual Orientation Not on file documented as of this encounter Plan of Treatment Upcoming Encounters Date Type Department Care Team (Late st Contact Info) Description 12/29/2024 10:20 EST Office Visit [facility] Rheumatology & Immunology - [address] [address] Micaela Hoff MD [address] [place] [address], [facility] [address] [place] [address] documented as of this encounter Visit Diagnoses Not on filedocumented in this encounter Additional Health Concerns Infection Onset Date Last Indicated Resolved Time 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 Care Teams Filling Hand Relationship Specialty Start Date End Date None, Provider PCP - General 06/09/14 03/01/15 documented as of this encounter
--- OUTSIDE RECORDS SUMMARY | 2024-06-10 18:45 | XMS_ITS | Encounter Summary ---
Author Organization [facility] Address [address] [place] [address] Care Team Providers Care Dragline Operator Name Role Phone None, Provider Primary Care Provider Unavailabl e Encounter Details Date Type Department Care Team (Late st Contact Info) Description 07/11/2014 14:45 EDT - 07/11/2014 14:46 EDT Hospital Encounter [address] [address] Tasha Torres MD [address] [facility], [address] [place] [phone] Discharge Disposition: Home or Self Care Social History Tobacco Use Types Packs/Day Years [...] on file documented as of this encounter Discharge Diagnoses Diagnosis V28.89 OTHER SPECIFIED SCREENING[ICD-9-CM] documented in this encounter Medications at Time of Discharge Medication Sig Dispensed Refills Start Date End Date acetaminophen (TYLENOL) 325 mg tablet Take 1-2 Tabs by mouth every 4 hours as needed for Pain. 07/20/2014 docusate sodium (COLACE) 100 mg capsule Take 1 Cap by mouth 2 times daily as needed for Constipation. 07/20/2014 folic acid (FOLVITE) 1 mg tablet Take 3 Tabs by mouth daily. 100 Tab 0 02/06/2014 levothyroxine (SYNTHROID) 100 mcg tablet Take 1 Tab by mouth daily. 90 Tab 1 04/26/2014 omeprazole (PRILOSEC) 40 mg capsuleIndications:Peptic ulcer disease Take 1 Cap by mouth daily. 90 Cap 4 03/02/2012 pediatric multivitamin (LIZETT CHEW VIT) chewable tablet Take 1 Tab by mouth daily. 07/20/2014 VIT/IRON FUMARATE/FA ( ORAL) Take by mouth. 05/21/2021 documented as of this encounter Discharge Disposition Disposition Code Departure Means Destination Home or Self Care documented in this encounter Plan of Treatment Upcoming Encounters Date Type Department Care Team (Late st Contact Info) Description 12/29/2024 10:20 EST Office Visit [facility] Rheumatology & Immunology - [address] [phone] Micaela Hoff MD [address] [place] [address], [address] [place] [address] documented as of this encounter Procedures Procedure Name Priority Date/Time Associated Diagnosis Comments PATHOLOGY - SCANNED 07/17/2014 16:21 EDT documented in this encounter Results * PATHOLOGY - SCANNED (07/17/2014 16:21 EDT) 07/17/2014 16:2 1 EDT Scan 2 International Marketing Manager LAB INFO SERVICE AN D SUPPORT & PHONE RESULT documented in this encounter Visit Diagnoses Not on filedocumented in this encounter Additional Health Concerns Infection Onset Date Last Indicated Resolved Time 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 Care Teams Dragline Operator Relationship Specialty Start Date End Date None, Provider PCP - General 06/09/14 03/01/15 documented as of this encounter
--- OUTSIDE RECORDS SUMMARY | 2024-06-10 18:45 | XMS_ITS | Encounter Summary ---
Author Organization [facility] Address [address] [place] [address] Care Team Providers Care Medical Office Coordinator Name Role Phone Kaylynn Gimenez MD Primary Care Provider + [phone] Reason for Visit * Reason Comments New Patient Visit Low sugar * Referral (Routine) - Authorization Not Required Specialty Diagnoses / Procedures [facility] Referred To Contact Diagnoses Hypothyroidism Hypoglycemia Family history of diabetes mellitus Prediabetes Anuja Cai, LEONELA [address] [place] [address] [facility] Endocrinology [address] [place] [address] Referral ID Status Reason Start Date Expiration Date Visits Requested Visits Authorized [id number] Authorization Not Required 1 1 Encounter Details Date Type Department Care Team (Late st Contact Info) Description 02/04/2023 11:30 EDT Telemedicine [facility] [address] [place], [place] [phone] Hina Townsend MD [address] [facility] [address] [place] [address] Mena's thyroiditis (Primary Dx); Hypoglycemia Social History Tobacco Use Types Packs/Day Years [...] on file documented as of this encounter Last Filed Vital Signs Vital Sign Reading Time Taken Comments Blood Pressure - - Pulse - - Temperature - - Respiratory Rate - - Oxygen Saturation - - Inhaled Oxygen Concentration - - Weight 95.3 kg (210 lb) 02/04/2023 1133 EDT Height 170.2 cm (5' 7) 02/04/2023 1133 EDT Body Mass Index 32.89 02/04/2023 1133 EDT documented in this encounter Progress Notes * Hina Elias MD - 02/04/2023 1130 EDT Endocrinology New Patient Visit- Televideo The concept of ???Telemedicine?? has been described to the patient.? Patient has been informed of the anticipated benefits and possible risks.? Patient understands the information provided regardingtelemedicine, has had the opportunity to ask questions about this information, and all questions have been answered to patient???s satisfaction. Patient consents for the use of telemedicine in his/her medical care and authorizes the transmission of any relevant medical information to providers and their staff involved in patient???s medical or mental health care. Date of Service: 02/04/2023 Chief Complaint Patient presents with ??? New Patient Visit Low sugar HPI: This is a 42 y.o. female with h/o hashimotos, Chronic lymphocytic thyroiditis, ADHD, PTSD, coming to clinic referred by PCP for evaluation of symptoms of hypoglycemia. She has been evaluated in the past by the Endocrine Department at [facility] and some of the information is taken from the patient and also from prior notes. Symptoms have been happening since age 21: dizzy, shaky, tremors, no neurologic symptoms. Says has checked with a meter and sometimes when she has symptoms her sugars could be 50-60 mg/dl. She has noticed that these events are triggered by high intake of carbohydrates. She has improved her symptoms eating more protein and fat. Says that sometimes has woken up with feeling symptoms of low but has not checked blood sugars. Denies prior hx of bariatric surgeries or intestinal surgeries. Per patient her weight has always fluctuated between 150-200 lbs. Denies prior hx of oral or intraarticular steroids. Prior hx: Last seen by Dr. Ireland in 2012. First seen in endocrine clinic 01/23/[address] Tawny Abrams , for goiter and hypothyroidism. Teri was diagnosed with hypothyroidism at that time and started on replacement therapy. Her daughter has T1DM. And she says she has had symptoms for years of getting episodes of feeling very shaky, hungry, sweaty, dizzy and sometimes feeling like she may pass out. She says she can trigger it to happen when her meals get really spaced out. She has used her daughters glucometer sometimes when it happens and has measured as low as 52 and says she has seen between 50-70s. In terms of other symptoms she notes Muscle spasms daily since 6 months ago, does note some night sweats, No urinary or bowel symptoms, Some GI issues does go to GI specialist, GERD, diarrhea and constipation, neg celiac labs. She has lost and gained weight I between trying different meds for ADHD and notes she may have gained 45lbs over the pandemic.No headaches, No peripheral vision issues, says high risk retina detachment .Menses off for a while, 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, picker tender helper and shorter, used to be 35d cycle but unsure how long in between nowadays.does have history of Tubal ligation. Her first first child was stillborn due to incompetent cervix, then it was discovered she had a septum in uterus,then had a high risk in 2007, third was a miscarriage early on, then her daughter was complicated emergent surgery due to incompetent cervix. FH Hashimotos, thyroid Grandmother type II DM Daughter T1DM Review of Systems A 10 point review of systems was obtained, pertinent positives and negatives as listed above, all others negative. Patient Active Problem List Diagnosis ??? Obstructive sleep apnea syndrome ??? Mena's thyroiditis ??? Tobacco use disorder ??? Palpitations ??? Depressive disorder ??? Cervical high risk HPV (human papillomavirus) test positive ??? with history of pre-term labor ??? Disorder of thyroid, antepartum ??? Exposure to hepatitis C ??? Short cervix, antepartum ??? Supervision of other high-risk Past Medical History: Diagnosis Date ??? History of tobacco use ??? Thyroid disease ??? 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 ENDOMETRIAL BIOPSY ??? UPPER GASTROINTESTINAL ENDOSCOPY 09/03/2010 ??? WISDOM TOOTH EXTRACTION Allergies Allergen Reactions ??? Kiwi Anaphylaxis Other reaction(s): Anaphylaxsis ??? House Dust Multiple environmental allergies. ??? House Dust Mite Ht 170.2 cm (67) Wt 95.3 kg (210 lb) BMI 32.89 kg/m?? Physical Exam: Limited for televideo Gen: alert, cooperative, in NAD Previous Labs: CBC: Lab Results Component Value Date WBC 6.89 07/19/2014 RBC 4.00 07/19/2014 HGB 12.5 07/19/2014 HCT 34.4 (L) 07/19/2014 MCV 86 07/19/2014 MCH 31.3 07/19/2014 MCHC 36.3 (H) 07/19/2014 PLT 255 07/19/2014 NEUTROABS 4.88 04/26/2014 SEDRATE 10 01/19/2012 BMP: Lab Results Component Value Date NA 139 01/12/2012 K 4.1 01/12/2012 CL 102 01/12/2012 CO2 28 01/12/2012 BUN 11 01/12/2012 CREATININE 0.63 01/12/2012 GLUCOSEFINGE 120 (H) 01/14/2012 CALCIUM 9.6 01/12/2012 LABALBU 4.3 01/12/2012 LFT: Lab Results Component Value Date TBIL 0.5 01/12/2012 ALKPHOS 51 01/12/2012 AST 23 01/12/2012 ALT 26 01/12/2012 Lipid Profile: Lab Results Component Value Date CHOL 130 01/09/2005 TRIG 59 01/09/2005 HDL 40 01/09/2005 LDLBASE 78 01/09/2005 CHOLHDL 3.3 01/09/2005 Lab Results Component Value Date HGBA1C 5.2 09/15/2011 HGBA1C 5.8 11/27/2010 Lab Results Component Value Date CHOL 130 01/09/2005 CHOL 149 12/29/2003 HDL 40 01/09/2005 HDL 38 12/29/2003 LDLBASE 78 01/09/2005 TRIG 59 01/09/2005 CHOLHDL 3.3 01/09/2005 Lab Results Component Value Date ALT 26 01/12/2012 AST 23 01/12/2012 ALKPHOS 51 01/12/2012 TSH 0.98 08/08/2014 Assessment: 42 y.o. F with h/o hashimotos, Chronic lymphocytic thyroiditis, ADHD, PTSD, coming to clinic referred by PCP for evaluation of symptoms of intermittent hypoglycemia. Says her thyroid has been ok, so her PCP has been managing that. She has noticed that these symptoms are exacerbated by eating simple carbohydrates. The differential dx for hypoglycemia is quite extensive but in her case these seems to be more reactive. She does not have any signs or symptoms to think in AI. Do not think this is an insulinoma. Plan: Diagnoses and all orders for this visit: Mena's thyroiditis Other orders - lisinopriL (PRINIVIL) 10 mg tablet; Take 10 mg by mouth daily. - fluticasone propionate (FLONASE) 50 mcg/actuation nasal spray; FLONASE ALLERGY RELIEF 50 MCG/ACT SUSP - QUICKVUE AT-HOME COVID-19 TEST kit; Use as directed. - loratadine/pseudoephedrine (CLARITIN-D 24 HOUR ORAL); Take by mouth. #Hypothyroidism -repeat TSH - results will be faxed to PCP #Hypoglycemia symptoms with reported low glucose on glucometer - Eat small complex carbohydrates with protein and fat. - No fluids with meals. - Update labs. - we discussed used of metformin or GLP-1 agonists. Follow-up in 6 months Hina Oneill MD 02/04/2023 C/c: PCP I spent a total of 45 minutes on the date of this encounter meeting with the patient and reviewing documentation/coordinating care as described in the above note. No procedures were performed at the time of the visit. documented in this encounter Plan of Treatment Upcoming Encounters Date Type Department Care Team (Late st Contact Info) Description 12/29/2024 10:20 EST Office Visit [facility] Rheumatology & Immunology - [address] [address] Micaela Hoff MD [address] [facility], [address] [place] [address] documented as of this encounter Visit Diagnoses Diagnosis Mena's thyroiditis- Primary Chronic lymphocytic thyroiditis Hypoglycemia Hypoglycemia, unspecified documented in this encounter Historical Medications * This list may reflect changes made after this encounter. Medication Sig Dispensed Refills Start Date End Date loratadine/pseudoephedrin e (CLARITIN-D 24 HOUR ORAL) Take by mouth. QUICKVUE AT-HOME COVID-19 TEST kit Use as directed. 11/30/2022 fluticasone propionate (FLONASE) 50 mcg/actuation nasal spray FLONASE ALLERGY RELIEF 50 MCG/ACT SUSP lisinopriL (PRINIVIL) 10 mg tablet Take 10 mg by mouth daily. added in this encounter Additional Health Concerns Infection Onset Date Last Indicated Resolved Time 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 Care Teams Medical Office Coordinator Relationship Specialty Start Date End Date Kaylynn Gimenez MD [address] [place] [phone] PCP - General 03/02/15 documented as of this encounter
--- OUTSIDE RECORDS SUMMARY | 2024-06-10 18:45 | XMS_ITS | Encounter Summary ---
Author Organization [facility] Address [address] [place] [address] Care Team Providers Care Skirt Trimmer Name Role Phone None, Provider Primary Care Provider Unavailabl e Reason for Visit * Reason Onset Date Comments Appointment Related 09/27/2014 Encounter Details Date Type Department Care Team (Late st Contact Info) Description 09/27/2014 Telephone [facility] Obstetrics & Midwifery - [facility] [address] [place], [place] [phone] Soledad Crawley, RN Appointment Related Social History Tobacco Use Types [...] encounter Miscellaneous Notes * Telephone Encounter - Soledad Crawley RN - 09/27/2014 1056 EST Call to Teri to discuss her plans moving forward- has cancelled/no-showed last two appointments. No answer, detailed phone message left on house voicemail. Call to [facility] sow farm barn technician to inquire- patient has been receiving routine care at their office and plans to deliver in [place]- does not plan on coming back to [place] for appointments/delivery unless she has to (ie: she goes into [facility]). Offered to fax patient's records for continuity of care- [facility] has all of patient'srecords. documented in this encounter Plan of Treatment Upcoming Encounters Date Type Department Care Team (Late st Contact Info) Description 12/29/2024 10:20 EST Office Visit [facility] Rheumatology & Immunology - [address] [address] Micaela Hoff MD [address] [facility], [address] [place] [address] documented as of this encounter Visit Diagnoses Not on filedocumented in this encounter Additional Health Concerns Infection Onset Date Last Indicated Resolved Time 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 Care Teams Skirt Trimmer Relationship Specialty Start Date End Date None, Provider PCP - General 06/09/14 03/01/15 documented as of this encounter
--- OUTSIDE RECORDS SUMMARY | 2024-06-10 18:45 | XMS_ITS | Encounter Summary ---
Author Organization [facility] Address [address] [place] [address] Care Team Providers Care Human Resources Leader Name Role Phone None, Provider Primary Care Provider Unavailabl e Reason for Visit * Reason Onset Date Comments Other 07/26/2014 Yeast infection symptoms Encounter Details Date Type Department Care Team (Late st Contact Info) Description 07/26/2014 Orders Only [facility] Obstetrics & Midwifery - [facility] [address] [place] [address] Soledad Crawley, RN Social History Tobacco Use Types Packs/Day Years [...] Dispensed Refills Start Date End Da te miconazole (MONISTAT-7) 2 % vaginal cream Place 1 Applicator vaginally at bedtime for 7 days. 1 Tube 0 07/26/2014 08/02/2014 documented in this encounter Progress Notes * Soledad Crawley, JANNA - 07/26/2014 1425 EDT Call from Teri with complaints of yeast infection symptoms- states she has had them in the past prior to with good results from OTC treatment. Asking if safe to use vaginal applicator due to cerclage placement last week. Discussed with Dr. Nam who states there are no contraindications.Relayed to Teri who asked that a Rx be called in so that insurance can cover. Order placed for 7 day applicator treatment, pt aware. documented in this encounter Plan of Treatment Upcoming Encounters Date Type Department Care Team (Late st Contact Info) Description 12/29/2024 10:20 EST Office Visit [facility] Rheumatology & Immunology - [address] [address] Micaela Hoff MD [address] [place] [address], [address] [place] [phone] documented as of this encounter Visit Diagnoses Not on filedocumented in this encounter Additional Health Concerns Infection Onset Date Last Indicated Resolved Time 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 Care Teams Human Resources Leader Relationship Specialty Start Date End Date None, Provider PCP - General 06/09/14 03/01/15 documented as of this encounter
--- OUTSIDE RECORDS SUMMARY | 2024-06-10 18:45 | XMS_ITS | Encounter Summary ---
Author Organization [facility] Address [address] [place] [address] Care Team Providers Care Water Supply Engineer Name Role Phone None, Provider Primary Care Provider Unavailabl e Encounter Details Date Type Department Care Team (Late st Contact Info) Description 12/13/[address] [facility] Laboratory Services - [facility] ([facility] [address], [place] [id number] Giovanni Souza MD [address] [place] [address] [address] [place], [place] [id number] Social History Tobacco Use Types Packs/Day Years [...] Info) Description 12/29/2024 10:[address] [facility] Rheumatology & Immunology - [facility] [address], [place] [id number] Micaela Hoff MD [address] [facility], [address] [place] [phone] documented as of this encounter Procedures Procedure Name Priority Date/Time Associated Diagnosis Comments SURGICAL PATHOLOGY Routine 12/13/2014 9:01 EST documented in this encounter Results * SURGICAL PATHOLOGY (12/13/2014 9:01 EST) Pathology Report: SURGICAL PATHOLOGY REPORT Reports generated via electronic interface contain original data; however they are lacking the format of the original report. Caution should be taken when reading/interpret ing unformatted reports. Name: ? TERI SMITH ? Accession #: ? [id number] ? : ? 1980 (Age: 34) ??F ? Collect Date: ? 12/13/2014 ? Location: ? [facility] ? Receive Date: ? 12/14/2014 ? Provider: GIOVANNI SOUZA MD Copy to: ? Final Pathologic Diagnosis: A. FALLOPIAN TUBE, LEFT, LIGATION: - Segment of fallopian tube with complete cross section identified. B. FALLOPIAN TUBE, RIGHT, LIGATION: - Segment of fallopian tube with complete cross section identified. Document reviewed and electronically signed by: SOLIS JEONG MD Report ??Date: 12/15/2014 16:30 By the signature above, the attending physician certifies that he/she has personally conducted a gross and/or microscopic examination of the described specimens and rendered or confirmed the above diagnosis. Specimen(s) Received: A. ?Portion of L tube B. ? Portion of R tube Clinical History: PPT/L Gross Description: A. ?Received in formalin labelled with proper patient identification (initials S, E) and portion left tube is a tubular structure (2.1 cm in length and 0.5 cm in diameter). ??The serosal surface is pink- and smooth. Sectioning reveals a central pinpoint lumen. ??Two sales donor recruitment representative cross sections are submitted as A1. B. ?Received in formalin labelled with proper patient identification (initials S, E) and portion right tube is a tubular structure (2.2 cm in length and 0.5 cm in diameter). ??The serosal surface is and smooth. Sectioning reveals a central pinpoint lumen. ??Two sales donor recruitment representative cross sections are submitted as B1. Angi Mcdaniel 12/14/2014 9:37 AM End of Report [facility] 12/13/2014 9:01 EST 12/14/2014 9:01 EST Giovanni Souza MD PATHOLOGY ORDERABLES [facility] [address] [place] [address] documented in this encounter Visit Diagnoses Not on filedocumented in this encounter Additional Health Concerns Infection Onset Date Last Indicated Resolved Time 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 Care Teams Water Supply Engineer Relationship Specialty Start Date End Date None, Provider PCP - General 06/09/14 03/01/15 documented as of this encounter
--- OUTSIDE RECORDS SUMMARY | 2024-06-10 18:45 | XMS_ITS | Encounter Summary ---
Author Organization [facility] Address [address] [place] [address] Care Team Providers Care Mergers And Acquisitions Manager Name Role Phone None, Provider Primary Care Provider Unavailabl e Reason for Referral * (Routine) - Closed Specialty Diagnoses / Procedures Referred By Ehsan patel Referred To Contact Liya Stone MD [address] [place] [id number] Referral ID Status Reason Start Date Expiration Date V isits Requested Visits Authorized [id number] Closed Specialty Services Required 07/20/2014 1 1 Encounter Details Date Type Department Care Team (Late st Contact Info) Description 07/18/2014 12:22 EDT - 07/20/2014 9:40 EDT Hospital Encounter [facility] Mother/Baby Unit [address] [place] [address] [id number] Robb Nam MD [address] [phone] Chester Howell MD [address] [phone] Linda Valdes MD Short cervix, antepartum (Primary Dx) Discharge Disposition: Home or Self Care Social [...] Sign Reading Time Taken Comments Blood Pressure 118/60 07/20/2014 0814 EDT Pulse 77 07/20/2014 0814 EDT Temperature 37 ??C (98.6 ??F) 07/20/2014 0814 EDT Respiratory Rate 18 07/20/2014 0814 EDT Oxygen Saturation 99% 07/20/2014 0814 EDT Inhaled Oxygen Concentration - - Weight 88.5 kg (195 lb) 07/19/2014 1444 EDT Height 170.2 cm (5' 7) 07/19/2014 1444 EDT Body Mass Index 30.54 07/19/2014 1444 EDT documented in this encounter Discharge Summaries * Liya Stone MD - 07/19/2014 5387 EDT Discharge Summary Chief Complaint: History of delivery, short cervix Principal Procedure: Santos cerclage Secondary Procedure: none Condition at Discharge: Good Hospital Course: 34yo woman at 17+5 with h/o PTD at 20 wks who was admitted for placement of a cerclage for shortened cervix. Her cervix was found to be 1.5 cm on 07/18 on TVUS. She was counseled on risks and options and elected to undergo cerclage. Due to the census she was admitted overnight and on HD 2 a Santos cerclage was placed. Please see operative report for full details. Post-opshe received 2 doses of prophylactic indocin. She remained stable overnight and was discharged withplan for follow-up in the [facility] clinic in 1-2 weeks. Relevant Studies at Discharge: none Last Lab Results at Discharge: CBC: Lab Results Component Value Date WBC 6.89 07/19/2014 RBC 4.00 07/19/2014 HGB 12.5 07/19/2014 HCT 34.4* 07/19/2014 MCV 86 07/19/2014 MCH 31.3 07/19/2014 MCHC 36.3* 07/19/2014 PLT 255 07/19/2014 DIFFTYPE Automated 04/26/2014 SEDRATE 10 01/19/2012 Discharge Summary Completed: yes documented in this encounter Medications at Time [...] by mouth daily. 90 Cap 4 03/02/2012 VIT/IRON FUMARATE/FA ( ORAL) Take by mouth. 05/21/2021 documented as of this encounter Ordered Prescriptions Prescription Sig Dispensed Refills Start Date End Da te docusate sodium (COLACE) 100 mg capsule Take 1 Cap by mouth 2 times daily as needed for Constipation. 07/20/2014 acetaminophen (TYLENOL) 325 mg tablet Take 1-2 Tabs by mouth every 4 hours as needed for Pain. 07/20/2014 documented in this encounter Discharge Disposition Disposition Code Departure Means Destination Home or Self Care documented in this encounter Progress Notes * TRANSPORTATION SALES CONSULTANT, ISELA 2 - 07/28/2014 1440 EDT * Kaylynn Blake - 07/20/2014 0628 EDT Antepartum Progress Note CC: IUP at 17w6d POD #1 from cerclage for short cervix and hx of PTD. Hospital Day: 3 S: No concerns or complaints o/n. Mild spotting o/n appox dime sized. Had difficulty voiding yesterday evening, s/p straight cath with 900cc drained, had voided x2 since. Some cramping yesterday thatimproved s/p cath. Denies LOF or ctx. +FM. Denies DELGADILLO, vision changes, SOB, CP, abd pain, N/V, LE pain, F/C. O: BP 99/54 Pulse 82 Temp(Src) 37 ??C (98.6 ??F) (Temporal) Resp 18 Ht 170.2 cm (67) Wt 88.451 kg (195 lb) BMI 30.53 kg/m2 SpO2 98% LMP 03/17/2014 Exam: Gen: NAD CV: RRR Resp: CTAB Abd: +BS, gravid, soft, NT, ND. Ext: no edema, WWP A/P: Teri Smith is a 34 y.o. female @ 17w6d by 5w5d US who is POD #1 from cerclage for short cervix and hx of PTD. Maternal AFVSS. S/p Cerclage: recovering well, cramping resolved with voiding of bladder and bleeding is minimal. -given 2 doses of post-op tocolysis yesterday. Hx of PTD: -continue IM progesterone q wk (scheduled for today). FWB: +FM, no s/s of distress. -daily doptones Global: -routine antepartum cares -General diet -up ad jennifer -Rh pos Dispo: Likely d/c today with routine f/u Kaylynn Blake SMS * Chester Howell MD - 07/20/2014 0502 EDT Antepartum Progress Note Chief Complaint: IUP @ 17w6d with short cervix and h/o PTD Hospital Day: 3 24hr Events: POD#1 s/p Santos cerclage and 2 doses of post-operative tocolysis. Pt required straight cath x1 for inability to void after her spinal for 900cc. She subsequently has voided w/o difficulty. Subjective: Pt reports feeling well and desires discharge. She had cramping yesterday that resolvedafter straight cath and some mild spotting since the procedure. She denies f/c, SOB/CP, abd pain/N/V, ctx, LOF. Objective: BP 99/54 Pulse 82 Temp(Src) 37 ??C (98.6 ??F) (Temporal) Resp 18 Ht 170.2 cm (67) Wt 88.451 kg (195 lb) BMI 30.53 kg/m2 SpO2 98% LMP 03/17/2014 Gen: NAD Resp: CTAB CV: RRR Abdomen: +BS, soft, nontender, gravid Extremities: WWP, no calf tenderness, no edema Assessment/Plan: 34 y.o. @ 17w6d by 5w5d now POD#1 s/p Santos cerclage placed for a shortcervix and h/o PTD. AVSS. Short cervix: 15mm @ 17w4d - S/p cerclage placement and 2 doses of post-op tocolysis H/o PTD - S/p uterine septum resection - Continue IM progesterone weekly (due today) FWB - Daily doptones Global - Rh pos - Regular diet - Continue synthroid for hypothyroidism - Stable for discharge today Liya Stone MD 07/20/2014 5:02 OB Attending Attestation: I have examined Teri Smith myself and agree with the above assessment and plan as noted. Doing well this AM- no uterine tenderness, no further cramping. No VB. Plan to d/c home on vehicle leasing and rental manager activity than normal. Recommend against intercourse until cerclage is out at 36 weeks. Has appt set for , at which time she will also have her anatomy US. CHESTER HOWELL MD * Marisol Howell, RN - 07/19/2014 1407 EDT 1358- Pt ambulated into OR 1. sales service promoter as well as resident services manager present. James Valdes and Too also in OR for WHO prior to spinal placement. * Rosey Manning RN - 07/19/2014 1259 EDT 1225- pt to unit from [facility] via bed, shown to room 11. FOB Aditya at pt bedside. Pt is 17+5w [id number] a short cervix, here for a cerclage placement. Anesthesia aware of pt's arrival. Dr Overton notified of pt arrival. 1230- FHR 145 per handheld doppler, pt vital signs WNL. Pt feels comfortable and denies pain, oriented to room and bed controls. FOB given tour of unit. Pt is MRSA+ with a neg swab on 06/29, plan for repeat cultures on 07/30 and 08/29. Pt reports she last ate at apx 2330 last night and had a sip of water this am with meds at 0830. 1300- Anesthesia in to consult pt. 1355- pt had Bicitra prior to walking back to OR. 1420- spinal placed by Dr Basilio. Vanco running. 1425- I+O cath for 150 mL 1430- counted laps and suture needles with Dr Valdes prior to cerclage placement. 1525- out of OR back to pt room, plan for pt to stay overnight. LR running at 120 mL/hr. 1540- pt reporting pain of 2/10 from DELGADILLO and PIV discomfort. Given 650 mg of tylenol per e-JAN 1620- pt on regular diet, ordering dinner from kitchen. Given toast with butter. 1630- pt reporting pain is 1/10 1650- Indocin given per e-DEC, second dose due at 2049. 1700- Pt due for progesterone dose tomorrow at 1300 in [place], plan to keep appt and discharge in morning. Will give dose here if pt staying into the afternoon. Will be going to [facility] overnight, room is ready and pt will be going back to the room she had prior to transfer here. Waiting for dinnertray and for pt to void to meet criteria for transfer. 1730- pt reports feeling crampy given heat pack for abd. Reports legs still feeling heavy and numb. 1800- pt ambulated with assistance to bathroom to void. * Liya Stone MD - 07/19/2014 0627 EDT Antepartum Progress Note Chief Complaint: IUP @ 17w5d with short cervix and h/o PTD Hospital Day: 2 Overnight Events: none Subjective: Pt is ready for cerclage today. She denies f/c, SOB/CP, abd pain/N/V, ctx, LOF, VB. Objective: BP 110/65 Pulse 83 Temp(Src) 37.1 ??C (98.8 ??F) (Temporal) Resp 16 SpO2 99% LMP 03/17/2014 Gen: NAD Resp: CTAB CV: RRR Abdomen: +BS, soft, nontender, gravid Extremities: WWP, no calf tenderness, no edema Assessment/Plan: 34 y.o. @ 17w5d by 5w5d with a short cervix and h/o PTD awaiting cerclage placement today. AVSS. Short cervix - 15mm @ 17w4d - Cerclage today H/o PTD - S/p uterine septum resection - Continue IM progesterone weekly FWB - Daily doptones Global - Rh pos - NPO until procedure today. IVFs. - Continue synthroid for hypothyroidism Liya Stone MD 07/19/2014 6:27 * Aleksandra Crespo RN - 07/18/2014 1618 EDT Transferred via wheelchair by transport to [facility]. IV to saline lock documented in this encounter H&P Notes * Chester Howell MD - 07/18/2014 1318 EDT Department of Obstetrics History & Physical Admit Date: 07/18/2014 Chief Complaint: short cervix, h/o PTD Provider: Chester Howell HPI: Teri Smith is a 34 y.o. @ 17w4d by 5w5d US who is here for a cerclage for a shortening cervix. She is followed by [facility] for history of PTD @ 20 wga in 2002 with demise in settingof uterine septum and possible chorio/PTL vs. cervical insufficiency. In 2003 she underwent a hysteroscopic septum resection and subsequently had a @ term. She was on vaginal progesterone for that . This she has been on IM progesterone and has had serial CL. On 06/29 CL was 2.2cm, 07/11 was 1.8cm, and today was 1.5cm. Additionally, this has been complicated by a posterior previa that has now resolved. She does have occational cramping that she has had throughout her and mild to moderate DELGADILLO every day, she states they are not improved with tylenol. No ctx, LOF, VB, +FM. Review of Systems: Denies visual changes, SOB, CP, RUQ pain, epigastric pain, N/V, F/C, or significant edema. She does have diarrhea/constipation from long standing GI issues. Current Ob History Posterior previa- resloved Short cervix IM progesterone for hx of PTD SADA 12/22/14 by 5w5d U/S Blood Type A pos Antibody Screen Neg GBS NA Rubella imm Varicella unknown Hep B neg Hep C neg HIV neg RPR NR Gonorrhea not done Chlamydia not done Pap 04/2014 neg 1 hour GTT NA Aneuploidy Testing Integrated neg CF Testing none Ultrasound Date GA EFW YARY Anatomy Dopplers 06/13/14 12w4d normal 06/29/14 14w6d posterior partial previa, sanford gestation, CL 2.7cm 07/11/14 16w4d normal posterior marginal previa, structures normal, CL 1.8cm 07/18/14 17w4d normal posterior placenta, grade 1, structures normal, CL 1.5cm Past Ob History 1) 2002, PTD @20wga 2) 2007, @ term 8lbs 1oz, w/ progesterone, IOL for NRFA 3) 2013 SAB 4) current Past Medical History Past Surgical History Past Medical History Diagnosis Date ??? History of tobacco use ??? Thyroid disease ??? Uterine congenital anomaly in 2003 Hysteroscopic Resection Past Surgical History Procedure Laterality Date ??? Upper gastrointestinal endoscopy 09/03/2010 ??? [place] tooth extraction ??? Endometrial biopsy Project Management Advisor History Social History H/o LEEP after 20 wk delivery Hx of HPV, pap and HPV neg in 04/2014 No STDs History Substance Use Topics ??? Smoking status: Former Smoker -- 1.00 packs/day Quit date: 04/08/2014 ??? Smokeless tobacco: Never Used ??? Alcohol Use: No Medications Allergies No current facility-administered medications on file prior to encounter. Current Outpatient Prescriptions on File Prior to Encounter Medication Sig Dispense Refill ??? folic acid (FOLVITE) 1 mg tablet Take 3 Tabs by mouth daily. 100 Tab 0 ??? levothyroxine (SYNTHROID) 100 mcg tablet Take 1 Tab by mouth daily. 90 Tab 1 ??? omeprazole (PRILOSEC) 40 mg capsule Take 1 Cap by mouth daily. 90 Cap 4 ??? pediatric multivitamin (LIZETT CHEW VIT) chewable tablet Take 1 Tab by mouth daily. ??? VIT/IRON FUMARATE/FA ( ORAL) Take by mouth. No Known Allergies Objective: Patient Vitals for the past 8 hrs: BP Heart Rate Resp Temp 07/18/14 1236 117/73 mmHg 74 BPM 18 36.8 ??C (98.2 ??F) GEN: NAD CV: RRR RESP: CTAB ABD: +BS, soft, NT, ND, gravid EXT: WWP, no edema Assessment/Problems/Plan: Teri Smith is a 34 y.o. @ 17w4d by 5w5d presenting for cerclage 2/2 short cervix and pervious PTD. AFVSS Cerclage: CL 1.5cm measured today. -Will place cerclage tomorrow am. -f/u on consent FWB: No s/s of distress. Amniotic fluid normal and FHR 156 bpm on today's US. Global: General diet, NPO @ midnight with IVF Up ad jennifer RH pos Dispo: will admit to [facility] for cerclage placement tomorrow am. Discussed with Dante. Antoinette Overton MD, PGY 4 Department of Obstetrics and Gynecology OB Attending Attestation: I have examined Teri Smith myself and agree with the above assessment and plan as noted. Pt frustrated at having to wait- there is no OR availibility currently up on L&D, and our high census currently makes moving to the main OR an impossibility, particularly in the setting of a cervical length of 15mm and a closed cervix. Pt without s/sxs of infection. Will get a CBC with diff in the AM,though no clinical concern for infection. CHESTER HOWELL MD documented in this encounter Nursing Notes * TRANSPORTATION SALES CONSULTANT, SCAN 2 - 07/25/2014 3650 EDT documented in this encounter OR Notes * OR Surgeon - Linda Valdes MD - 07/20/2014 1101 EDT OPERATIVE REPORT SERVICE DATE: 07/19/2014 PREOPERATIVE DIAGNOSIS: 1. Seventeen and 5/7 weeks intrauterine . 2. History of . 3. Transvaginal cervical length of 15 mm during this . POSTOPERATIVE DIAGNOSIS: 1. Seventeen and 5/7 weeks intrauterine . 2. History of . 3. Transvaginal cervical length of 15 mm during this . PROCEDURE: Santos cerclage. SURGEON: Linda Valdes MD OIL LABORATORY ANALYST: Rehan Abarca MD ANESTHESIA: FLUIDS: 1000 mL of lactated Ringer's. URINE OUTPUT: 150 mL. ESTIMATED BLOOD LOSS: Less than 50 mL. INDICATIONS: Teri Smith is a 34-year-old 4, para 1-0-2-1, at 17 and 5/7 weeks dated by a 1st trimester ultrasound. Her obstetrical history is complicated with a 20-week stillborn, followed by a full-term vaginal delivery, followed by a spontaneous 1st trimester loss this year. The patienthas a history of vaginal progesterone use during her 39 week delivery. The patient has been followed with cervical lengths and was started on progesterone in the mid trimester. On her last transvaginal ultrasound her cervical length was 15 mm. The patient was counseled about risks, benefits, alternatives of Santos cerclage versus continued expectant management and patient opted for a cerclage. FINDINGS: A short cervix with minimal cervix palpable on the posterior lip. The cervix was not dilated at the time of the procedure. Upon completion of the procedure, a Prolene stitch was tied with the knot at the 5 o'clock position. COMPLICATIONS: None. NARRATIVE: The patient was taken to the operating room where spinal anesthesia was obtained and found to be adequate. The patient was then placed in the dorsal lithotomy position and prepped and draped in the usual sterile fashion. A weighted speculum was placed in the patient's vagina and the anterior lip of the cervix was visualized and grasped with a single-tooth tenaculum. A 2nd tenaculum was placed at the 6 o'clock position. The posterior lip of the cervix was found to be extremely short and almost flush with the posterior vaginal wall. A Prolene stitch connected to a free Lopez needle was then inserted at the 12 o'clock position with successive stitches clockwise around to the 5 o'clock position. The other end of thesuture was then grasped and in a counterclockwise fashion Inserted from 12 with successive stitchesclockwise around to the 5 o'clock position. Five throws had to be done because the posterior lip ofthe cervix was so thin on the posterior wall that it had to be grasped in a separate stitch to bring the pursestring suture together. The Prolene stitch was tied with 6 half-hitches and a string of at least 3 cm was left in the patient's vagina. On bimanual exam upon completion of the procedure thestitch could be felt at the 5 o'clock position and the cervix was closed. The patient tolerated this procedure well. Sponge, lap, needle and instrument counts were correct x2. The patient was taken back to her labor and delivery room in stable condition. Unless otherwise noted, there were no complications, no blood loss, no cultures obtained, no specimens removed, and no drains retained. Attending attestation: I was present during the entire procedure. I saw and examined the patient On07/19.. I agree with the findings and plan of care documented in the resident's/fellow's note. LINDA VALDES MD 07/21/2014 8:54 Linda Valdes MD 04 40 PM / Rehan Abarca MD cn Confirmation: [id number] Dictation ID: [id number] cc: Rehan Abarca MD * OR PostOp - Linda Valdes MD - 07/19/2014 3360 EDT Brief Post-Op Note Date of Surgery: 07/19/2014 Indication: Short cervix with a history of a Surgeon: MD Linda Gotti MD Procedure: Santos Cerclage Anesthesia Type: Spinal IV Fluids: 1000cc LR Estimated Blood Loss: Unless otherwise noted, there was no blood loss, specimens removed, cultures obtained, or drains retained. The estimated blood loss was less than 50 mL. The suture knot is at 5 o'clock. Complications: None Disposition and Condition: Teri Smith was sent to Back to Original Floor in Good condition. Rehan Abarca MD 07/19/2014 15:41 Attending attestation: I was present during the entire procedure. I saw and examined the patient 07/19/2014. I agree with the findings and plan of care documented in the resident's/fellow's note. LINDA VALDES MD 07/19/2014 15:48 * Anesthesia Procedure Notes - TRANSPORTATION SALES CONSULTANT, SCAN 2 - 07/19/2014 1534 EDT documented in this encounter Miscellaneous Notes * Plan of Care - Leah Silva RN - 07/20/2014 0943 EDT Ante- Shift Note Reason for Admission: SADA: 12/22/2014 Gestational Age (weeks): 17W6D Cervix: Vital signs: Stable Patient Vitals for the past 8 hrs: BP Pulse Resp Temp SpO2 07/20/14 0814 118/60 mmHg 77 18 37 ??C (98.6 ??F) 99 % Movement: Present Membranes intact: Yes Bleeding: scant dk red Contractions: No NST: N/A Betamethasone: GDM: No IV / SL: None removed on nights Special Social Circumstances: FOB extremely concerned and supportive Comments: Stable AP s/p cerclage. Up and voiding. Feels ready for discharge. Instructions reviewed. * Plan of Care - Antoinette Kraft RN - 07/20/2014 0400 EDT Problem: SLEEP/REST/DISCOMFORT Goal: Patient Rests/Sleeps 6-8 Hours Per Day Outcome: Met This Shift Data: 17+6 week pt here s/p cerclage Action: clustered care; vs per protocol; assessed safety/pain hourly Response: pt assessed to be sleeping comfortably through the night Antoinette Kraft RN 07/20/2014 3:57 * Plan of Care - Antoinette Kraft RN - 07/20/2014 0351 EDT Ante- Shift Note Reason for Admission: SADA: 12/22/2014 Gestational Age (weeks): 17W6D Cervix: Vital signs: Stable Patient Vitals for the past 8 hrs: BP Pulse Resp Temp SpO2 07/20/14 0000 99/54 mmHg 82 18 37 ??C (98.6 ??F) 98 % 07/19/14 2155 98/52 mmHg 71 18 37.1 ??C (98.8 ??F) 98 % 07/19/142014 105/56 mmHg 90 18 37.3 ??C (99.1 ??F) 99 % Movement: Present Membranes intact: Yes Bleeding: Yes scant Contractions: No NST: N/A Betamethasone: GDM: No IV / SL: Saline lock patent and flushed this shift Special Social Circumstances: Comments: Stable AP s/p cerclage. Pt had some urinary retention on evening shift and had to be straight cathed for 900cc. Has now voided since. Has had some bright red spotting on pad (scant). MD Smith aware. * Anesthesia Pre-Eval - Terrell Varmat - 07/19/2014 1445 EDT Obstetric Anesthesia Consult Name: TERI SMITH : 1980 Date: 07/19/2014 Age: 34 y.o. GA: 17w5d Dining Room Server: Chester Howell MD Obstetric History: 34 yo at 17+ wks, incompetent cervix-- needs cerclage. Obstetric History Complications during : Complicated By: Complicated by: cervical insufficiency No Known Allergies Anesthetic History: Anesthesia History Previous Patient or Family Problems with Anesthesia: None Airway Evaluation: Airway Evaluation Mallampati: 2 Mouth Opening: Normal Thyro-Mental Distance: Normal Neck Eval: ROM Normal Teeth: Normal Review of Systems: Smoker: Quit History of Respiratory Infections: No Asthma: No Heart Murmur: No High Blood Pressure: No Angina/Palpitations: No Blood Vessel Disease: No Neurological Disease: No Muscular Degeneration: No Backpain/Neckpain: No Reflux/Heartburn/Hiatial Hernia: Yes GI Additional Info: Taking Medication Liver Disease: No Thyroid Disease: Yes Type of Thyroid Disease: Hypothyroid;Med Controlled;Recent Changes Kidney Disease: No Diabetes: No Anemia: No Previous Anesthesia for Childbirth: Yes Previous Types of Anesthesia: Epidural Infectious Disease: No Opioid Dependency: No Past Surgical History Procedure Laterality Date ??? Upper gastrointestinal endoscopy 09/03/2010 ??? [place] tooth extraction ??? Endometrial biopsy Current Facility-Administered Medications Medication Route Frequency ??? acetaminophen (TYLENOL) tablet 325-650 mg oral Q4H PRN ??? calcium carbonate (TUMS) 200 mg calcium (500 mg) per chewable tablet tablet,chewable 2 Tab oralQID PRN ??? docusate sodium (COLACE) capsule 100 mg oral DAILY ??? lactated ringers (LR) infusion intravenous CONTINUOUS ??? levothyroxine (SYNTHROID) tablet 100 mcg oral DAILY ??? multivitamin vit-iron fumarate-FA (STUARTNATAL) 27 mg iron- 1 mg tablet 1 Tab oral DAILY ??? pantoprazole (PROTONIX) tablet 40 mg oral QHS ??? vancomycin (VANCOCIN) IVPB 1,000 mg intravenous Now No Facility-Administered Medications for the 07/18/14 encounter (Hospital Encounter) with Chester Howell MD. No outpatient prescriptions have been marked as taking for the 07/18/14 encounter (Hospital Encounter) with Chester Howell MD. Vital Signs: BP 105/67 Pulse 72 Temp(Src) 37.6 ??C (99.7 ??F) (Temporal) Resp 18 Ht 170.2 cm (67) Wt 88.451 kg (195 lb) BMI 30.53 kg/m2 SpO2 100% LMP 03/17/2014 Labs: Lab Results Component Value Date WBC 6.89 07/19/2014 HGB 12.5 07/19/2014 HCT 34.4* 07/19/2014 MCV 86 07/19/2014 PLT 255 07/19/2014 NA 139 01/12/2012 K 4.1 01/12/2012 CL 102 01/12/2012 CO2 28 01/12/2012 BUN 11 01/12/2012 CREATININE 0.63 01/12/2012 Blood/Cultures: Recent Results (from the past 1008 hour(s)) TYPE AND SCREEN Collection Time 07/19/14 7:50 Result Value Range Status ABO A Final Rh Factor Positive Final Antibody Screen Negative Final ASA Classification: Grade II Plan: spinal mode(s) of anesthesia were discussed. Risks discussed included: Bleeding, Infection, Nerve Injury, Spinal headaches, low blood pressures with underperfusion, high spinals, hematomas, failure and replacement. All of Teri Alfredo Julywillis's questions were answered to her satisfaction. Unless otherwise noted, follow standard anesthesia pre-operative protocol. Zenaida Basilio MD 07/19/2014 Participated in and agree with resident's pre-op evaluation as noted above. Plan for spinal anesthetic. Pt agrees to neuraxial anesthesia. R/B/A discussed with pt, all questions answered. Angie Varma MD * Plan of Care - Sharron Khanna - 07/19/2014 1032 EDT Problem: CONTACT PRECAUTIONS Goal: Prevent Transmission Of Infection Patient with a history of MRSA (10/18/2011, leg wound). Her current status is unknown. Please maintain contact precautions until two surveillance cultures (including nares and areas of open skin) obtained 48 hours apart rule out colonization. Do not cohort. 07/19/2014 12:02: Patient with one negative nares swab collected on 06/29/14. For patient to meet permanent decolonization status, she will additional nares swabs collected 30 and 60 days from 06/29/14 (on or after 07/30/14 and 08/29/14). * Plan of Care - Bridget Robbins RN - 07/19/2014 0319 EDT Ante- Shift Note Reason for Admission: SADA: 12/22/2014 Gestational Age (weeks): 17W5D Cervix: Vital signs: Stable Patient Vitals for the past 8 hrs: BP Pulse Resp Temp SpO2 07/19/14 0112 110/65 mmHg 83 16 37.1 ??C (98.8 ??F) 99 % 07/18/14 2000 110/70 mmHg 81 16 36.4 ??C (97.5 ??F) 98 % Movement: Present per patient Membranes intact: Yes Bleeding: No Contractions: No per pt NST: N/A Betamethasone: GDM: No IV / SL: IV up and infusing Special Social Circumstances: Comments: Stable AP Here for cerclage placement at some point today. NPO since midnight * Plan of Care - Bridget Robbins RN - 07/19/2014 647 EDT Problem: PAIN Goal: Patient???s pain/discomfort is manageable/tolerable Intervention: Assess pain level Assess on admission, prior to pain medication, within 2 hrs of administering pain medication, prn and at discharge. Data: Stable antepartum 17+5 weeks here for cerclage placement tomorrow. Pt reports a pain score of3/10 in her left wrist at her IV site. Pt stated, I think it hurts because it was difficult to place the IV. Action: Assessed and flushed IV per protocol. Offered pain medications per DEC. Initiated IV fluid per DEC. Response: No redness, edema, warmth or infiltration noted. IV flushed well. Pt assessed to be sleeping throughout shift. Will continue to monitor. Bridget Robbins RN 07/19/2014 3:12 * Plan of Care - Manuel Chappell RN - 07/18/2014 1554 EDT Problem: MAINTENANCE/ SUPPORT Goal: Maintain Outcome: Ongoing Data: Undelivered patient at 17+4 weeks here waiting for cerclage placement since 1230 07/18/14. Will most likely happen tomorrow around 1300 per patient. Action: Monitor pt for s/s of labor. Response: Denies LBC, c/o [place] 02/09. Patient had Tylenol at 2140. Has been sleeping with no signs of distress since. NPO after midnight. MANUEL CHAPPELL RN 07/18/2014 22:54 documented in this encounter Plan of Treatment Upcoming Encounters Date Type Department Care Team (Late st Contact Info) Description 12/29/2024 10:20 EST Office Visit [facility] Rheumatology & Immunology - [address] [address] Micaela Hoff MD [address] [place] [address], [address] 5 [place] [phone] Scheduled Referrals Name Type Priority Associated Diagnoses Order Schedule PROVIDER FOLLOW-UP INSTRUCTIONS Outpatient Referral Routine Ordered: 07/20/2014 documented as of this encounter Procedures Procedure Name Priority Date/Time Associated Diagnosis Comments COMPLETE BLOOD COUNT Routine 07/19/2014 9:29 EDT INPATIENT ADD-ON STAT 07/19/2014 8:55 EDT COMPLETE BLOOD COUNT Routine 07/19/2014 8:06 EDT TYPE AND SCREEN Routine 07/19/2014 7:50 EDT documented in this encounter Results * (ABNORMAL) HEMAGRAM (07/19/2014 9:29 EDT) WBC 6.89 4.0 - 12.4 K/cmm [facility] RBC 4.00 3.86 - 5.04 M/cmm [facility] Hemoglobin 12.5 11.6 - 15.2 gm/dl [facility] HCT 34.4(L) 34.9 - 44.4 % [facility] MCV 86 81 - 98 fl [facility] MCH 31.3 26.7 - 33.3 pg [facility] MCHC 36.3(H) 32.1 - 35.9 gm/dl [facility] PLT 255 141 - 320 K/cmm [facility] RDW-CV 12.4 11.7 - 14.6 % [facility] Blood specimen (specimen) 07/19/2014 9:29 EDT 07/19/2014 10:08 EDT Antoinette Overton MD HEMATOLOGY & PF4 ORD ERABLES Performing Organization Address City/[facility]/ZIP Co de Phone Number [facility] [address] [place] [address] * INPATIENT ADD-ON (07/19/2014 8:55 EDT) Tests to be added CBC ( SAMPLE IS IN BLOOD BANK) [facility] Number for problems [id number] [facility] Accession number [id number] [facility] 07/19/2014 8:55 EDT 07/19/2014 8:57 EDT Lillian Rainey MD HEMATOLOGY & PF4 OR DERABLES Performing Organization Address City/[facility]/ZIP Co de Phone Number [facility] [address] [place] [address] * HEMAGRAM (07/19/2014 8:06 EDT) WBC UNABLE TO ADD STAT CBC DUE TO SAMPLE BEING SPUN FOR BLOOD BANK TESTING 4.0 - 12.4 K/cmm [facility] RBC UNABLE TO ADD STAT CBC DUE TO SAMPLE BEING SPUN FOR BLOOD BANK TESTING 3.86 - 5.04 M/cmm [facility] Hemoglobin UNABLE TO ADD STAT CBC DUE TO SAMPLE BEING SPUN FOR BLOOD BANK TESTING 11.6 - 15.2 gm/dl [facility] HCT UNABLE TO ADD STAT CBC DUE TO SAMPLE BEING SPUN FOR BLOOD BANK TESTING 34.9 - 44.4 % [facility] MCV UNABLE TO ADD STAT CBC DUE TO SAMPLE BEING SPUN FOR BLOOD BANK TESTING 81 - 98 fl [facility] MCH UNABLE TO ADD STAT CBC DUE TO SAMPLE BEING SPUN FOR BLOOD BANK TESTING 26.7 - 33.3 pg [facility] MCHC UNABLE TO ADD STAT CBC DUE TO SAMPLE BEING SPUN FOR BLOOD BANK TESTING 32.1 - 35.9 gm/dl [facility] PLT UNABLE TO ADD STAT CBC DUE TO SAMPLE BEING SPUN FOR BLOOD BANK TESTING 141 - 320 K/cmm [facility] RDW-CV UNABLE TO ADD STAT CBC DUE TO SAMPLE BEING SPUN FOR BLOOD BANK TESTING 11.7 - 14.6 % [facility] 07/19/2014 8:06 EDT 07/19/2014 9:00 EDT Antoinette Overton MD HEMATOLOGY & PF4 ORD ERABLES [facility] [address] [place] [address] * TYPE AND SCREEN (07/19/2014 7:50 EDT) ABO A [facility] Rh Factor Positive [facility] Antibody Screen Negative [facility] Comment:SPECIMEN EXPIRES AT 23:59 ON 07/22/2014 Blood specimen (specimen) 07/19/2014 7:50 EDT Antoinette Overton MD BLOOD BANK TESTS [facility] documented in this encounter Visit Diagnoses Diagnosis Short cervix, antepartum- Primary Cervical shortening, antepartum condition or complication Short cervix, antepartum Cervical shortening, antepartum condition or complication documented in this encounter Administered Medications Inactive Administered Medications - up to 3 most recent administrations Medication Order MAR Action Action Date Dose Rate Site acetaminophen (TYLENOL) tablet 325-650 mg 325-650 mg, oral, EVERY 4 HOURS PRN, Starting on Thu07/18/14 at 2010, Until Thu07/20/14 at 1151, Pain, Routine Given 07/19/2014 20:53 EDT 650 mg Given 07/19/2014 15:41 EDT 650 mg Given 07/18/2014 20:34 EDT 650 mg docusate sodium (COLACE) capsule 100 mg 100 mg, oral, DAILY, First dose on Thu07/18/14 at 2030, Until Discontinued, Routine Given 07/20/2014 9:37 EDT 100 mg Given 07/19/2014 20:53 EDT 100 mg Given 07/18/2014 20:38 EDT 100 mg indomethacin (INDOCIN) capsule 25 mg 25 mg, oral, EVERY 4 HOURS, 1 dose, First dose on Thu07/19/14 at 2000, Routine Given 07/19/2014 20:53 EDT 25 mg indomethacin (INDOCIN) capsule 50 mg 50 mg, oral, NOW X1, 1 dose, On Thu07/19/14 at 1600, Routine Given 07/19/2014 16:50 EDT 50 mg lactated ringers (LR) infusion at 120 mL/hr, intravenous, CONTINUOUS, Starting on Thu07/19/14 at 0000, Until Thu07/19/14 at 1923, Routine New Bag 07/19/2014 15:32 EDT 120 mL/hr Rate Documented 07/19/2014 12:30 EDT 120 mL 120 mL/hr New Bag 07/19/2014 9:40 EDT 120 mL/hr levothyroxine (SYNTHROID) tablet 100 mcg 100 mcg, oral, DAILY, First dose on Thu07/18/14 at 1630, Until Discontinued, Routine Given 07/20/2014 6:38 EDT 100 mcg Given 07/19/2014 8:50 EDT 100 mcg multivitamin vit-iron fumarate-FA (STUARTNATAL) 27 mg iron- 1 mg tablet 1 Tab 1 Tablet, oral, DAILY, First dose on Thu07/18/14 at 2030, Until Discontinued, Routine Given 07/18/2014 20:34 EDT 1 Tablet pantoprazole (PROTONIX) tablet 40 mg 40 mg, oral, DAILY, First dose on Thu07/18/14 at 1700, Until Discontinued, Routine Given 07/18/2014 19:39 EDT 40 mg pantoprazole (PROTONIX) tablet 40 mg 40 mg, oral, AT BEDTIME, First dose (after last reorder) on Thu07/19/14 at 2100, Until Discontinued, Routine Given 07/19/2014 20:53 EDT 40 mg sodium citrate-citric acid (BICITRA) 500-334 mg/5 mL solution 30 mL 30 mL, oral, Once (Without Time Specified), 1 dose, Starting on Thu07/19/14 at 1430, Until Thu07/19/14 at 1355, Routine Given 07/19/2014 13:55 EDT 1 mL sodium citrate-citric acid (BICITRA) 500-334 mg/5 mL solution 1 dose, Starting on Thu07/19/14 at 1359, Until Thu07/19/14 at 1355 sucralfate (CARAFATE) suspension 1 g 1 g, oral, NOW X1, 1 dose, On Thu07/19/14 at 1600, STAT Given 07/19/2014 16:12 EDT 1 g sucralfate (CARAFATE) suspension 1 g 1 g, oral, EVERY 4 HOURS, 1 dose, First dose on Thu07/19/14 at 2000, Routine Given 07/19/2014 20:28 EDT 1 g vancomycin (VANCOCIN) IVPB 1,000 mg 1,000 mg, intravenous, Administer over 60 Minutes, NOW X1, 1 dose, On Thu07/19/14 at 1400, Routine Given by Other 07/19/2014 14:20 EDT 1,000 mg documented in this encounter Discontinued Medications Medication Sig Discontinue Reason Start Date End Da te pediatric multivitamin (LIZETT CHEW VIT) chewable tablet Take 1 Tab by mouth daily. 07/20/2014 documented as of this encounter Active and Recently Administered Medications Times are shown in EDT. Scheduled Medication Order 07/18/2014 07/19/2014 07/20/2014 docusate sodium (COLACE) capsule 100 mg 100 mg, oral, DAILY, First dose on Thu07/18/14 at 2030, Until Discontinued, Routine 2037 (Given - Provider: Manuel Chappell RN) 0907 (Not Given - Provider: Rebekah Gutierrez RN - Reason: Patient/family refused)2052 (Given - Provider: Antoinette Kraft RN) 0937 (Given - Provider: Leah Silva RN) indomethacin (INDOCIN) capsule 25 mg (COMPLETED)(Linked Group 1) 25 mg, oral, EVERY 4 HOURS, 1 dose, First dose on Thu07/19/14 at 2000, Routine 2052 (Given - Provider: Antoinette Kraft RN) indomethacin (INDOCIN) capsule 50 mg (COMPLETED)(Linked Group 1) 50 mg, oral, NOW X1, 1 dose, On Thu07/19/14 at 1600, Routine 1650 (Given - Provider: Rosey Manning RN) levothyroxine (SYNTHROID) tablet 100 mcg (CANCELED) 100 mcg, oral, DAILY, First dose on Thu07/18/14 at 1630, Until Discontinued, Routine 172 (Not Given - Provider: Manuel Chappell RN - Reason: Other - Comment: pt takes in the morning) 0850 (Given - Provider: Rebkeah Gutierrez RN) 0638 (Given - Provider: Antoinette Kraft RN) multivitamin vit-iron fumarate-FA (STUARTNATAL) 27 mg iron- 1 mg tablet 1 Tab (CANCELED) 1 Tablet, oral, DAILY, First dose on Thu07/18/14 at 2030, Until Discontinued, Routine 2033 (Given - Provider: Manuel Chappell RN) 0907 (Not Given - Provider: Rebekah Gutierrez RN - Reason: Patient/family refused) 0824 (Not Given - Provider: Leah Silva RN - Reason: Patient/family refused - Comment: takes in the shiv) pantoprazole (PROTONIX) tablet 40 mg (CANCELED) 40 mg, oral, DAILY, First dose on Thu07/18/14 at 1700, Until Discontinued, Routine 193 (Given - Provider: Manuel Chappell RN) 0900 (Not Given - Provider: Rosey Manning RN - Reason: Other - Comment: changed to HS dose.) pantoprazole (PROTONIX) tablet 40 mg (CANCELED) 40 mg, oral, AT BEDTIME, First dose (after last reorder) on Thu07/19/14 at 2100, Until Discontinued, Routine 2052 (Given - Provider: Antoinette Kraft RN) sodium citrate-citric acid (BICITRA) 500-334 mg/5 mL solution 30 mL (COMPLETED) 30 mL, oral, Once (Without Time Specified), 1 dose, Starting on Thu07/19/14 at 1430, Until Thu07/19/14 at 1355, Routine 1355 (Given - Provider: Rosey Manning RN) sucralfate (CARAFATE) suspension 1 g (COMPLETED)(Linked Group 2) 1 g, oral, NOW X1, 1 dose, On Thu07/19/14 at 1600, STAT 1612 (Given - Provider: Marisol Howell RN) sucralfate (CARAFATE) suspension 1 g (COMPLETED)(Linked Group 2) 1 g, oral, EVERY 4 HOURS, 1 dose, First dose on Thu07/19/14 at 2000, Routine 2027 (Given - Provider: Antoinette Kraft RN) vancomycin (VANCOCIN) IVPB 1,000 mg (COMPLETED) 1,000 mg, intravenous, Administer over 60 Minutes, NOW X1, 1 dose, On Thu07/19/14 at 1400, Routine 1420 (Given by Other - Provider: Rosey Manning RN) Continuous Medication Order 07/18/2014 07/19/2014 07/20/2014 lactated ringers (LR) infusion (CANCELED) at 120 mL/hr, intravenous, CONTINUOUS, Starting on Thu07/19/14 at 0000, Until Thu07/19/14 at 1923, Routine 0100 (New Bag - Provider: Jillian Robbins RN)0940 (New Bag - Provider: Rebekah Gutierrez RN)1230 (Rate Documented - Provider: Rosey Manning RN)1532 (New Bag - Provider: Rosey Manning RN)1700 (Completed - Provider: Rosey Manning RN) PRN Medication Order 07/18/2014 07/19/2014 07/20/2014 acetaminophen (TYLENOL) tablet 325-650 mg 325-650 mg, oral, EVERY 4 HOURS PRN, Starting on Thu07/18/14 at 2010, Until Thu07/20/14 at 1151, Pain, Routine 2033 (Given - Provider: Manuel Chappell RN) 1541 (Given - Provider: Rosey Manning RN)2052 (Given - Provider: Antoinette Kraft RN) Linked Groups Order Group 1: indomethacin (INDOCIN) capsule 50 mg (COMPLETED)Jump to med 50 mg, oral, NOW X1, 1 dose, On Thu07/19/14 at 1600, Routine Followed by indomethacin (INDOCIN) capsule 25 mg (COMPLETED)Jump to med 25 mg, oral, EVERY 4 HOURS, 1 dose, First dose on Thu07/19/14 at 2000, Routine Group 2: sucralfate (CARAFATE) suspension 1 g (COMPLETED)Jump to med 1 g, oral, NOW X1, 1 dose, On Thu07/19/14 at 1600, STAT Followed by sucralfate (CARAFATE) suspension 1 g (COMPLETED)Jump to med 1 g, oral, EVERY 4 HOURS, 1 dose, First dose on 07/19/14 at 2000, Routine documented in this encounter Orders Medications Ordered That Marlo ht Not Have Been Administered Count Last Ordered Date First Ordered Date atropine 0.1 mg/mL syringe 0.4 mg 1 014 ceFAZolin (ANCEF) syringe 1 g 1 07/19/2014 nalOXone (NARCAN) injection 0.2 mg 1 2013 acetaminophen (TYLENOL) tablet 325-650 mg 1 07/18/2014 calcium carbonate (TUMS) 200 mg calcium (500 mg) per chewable tablet tablet,chewable 2 Tab 1 07/18/2014 ibuprofen (MOTRIN) tablet 400 mg 1 07/18/20 14 multivitamin vit-ir on fumarate-FA (STUARTNATAL) 27 mg iron- 1 mg tablet 1 Tab 1 07/18/2014 omeprazole (PRILOSEC) capsule 40 mg 1 07/18 Diet Count Last Ordered Date First Orde red Date DISCHARGE DIET 2 07/20/2014 Nursing Count Last Ordered Date First Orde red Date ACTIVITY INSTRUCTIONS 1 07/20/2014 BATHING INSTRUCTIONS 1 07/20/2014 Admission Count Last Ordered Date First Orde red Date STATUS: OUTPATIENT OBSERVATION SERVICES 1 0 07/19/2014 STATUS: NON-MEDICARE OB INPA TIENT ADMISSION 2 07/18/2014 Transfer Count Last Ordered Date First Orde red Date PPS NOTIFICATION OF PATIENT ARRIVAL ON UNIT 3 07/19/2014 07/18/2014 PPS NOTIFICATION OF SENDING PATIENT OFF THE UNIT 2 07/19/2014 UR PATIENT TYPE CHANGE 1 07/19/2014 Discharge Count Last Ordered Date First Orde red Date DISCHARGE PATIENT 1 07/20/2014 Legal Count Last Ordered Date First Orde red Date MISCELLANEOUS DISCHARGE INSTRUCTIONS 1 07/03 documented in this encounter Additional Health Concerns Infection Onset Date Last Indicated Resolved Time 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 Care Teams Mergers And Acquisitions Manager Relationship Specialty Start Date End Date None, Provider PCP - General 06/09/14 03/01/15 documented as of this encounter
--- OUTSIDE RECORDS SUMMARY | 2024-06-10 18:45 | XMS_ITS | Encounter Summary ---
Author Organization [facility] Address [address] [place] [address] Care Team Providers Care Satellite Project Site Monitor Name Role Phone Kaylynn Gimenez MD Primary Care Provider + [phone] Reason for Visit * Reason Onset Date Comments Returning Call 06/06/2022 Encounter Details Date Type Department Care Team (Late st Contact Info) Description 06/06/2022 Telephone [facility] Endocrinology - [facility] [address] [place] [address] Susan Hensley MD [address] [facility] [address] [place] [address] Returning Call Social History Tobacco Use Types Packs/Day Years [...] encounter Miscellaneous Notes * Telephone Encounter - Gilma Puente RN - 06/13/2022 1303 EDT Taking care of in 06/03/22 Age of Learningt message. Gilma Puente RN * Telephone Encounter - Gold Chrisjeane - 06/06/2022 1029 EDT The patient is returning a call to the nurse documented in this encounter Plan of Treatment Upcoming Encounters Date Type Department Care Team (Late st Contact Info) Description 12/29/2024 10:20 EST Office Visit [facility] Rheumatology & Immunology - [address] [phone] Micaela Hoff MD [address] [facility], [address] [place] [phone] documented as of this encounter Visit Diagnoses Not on filedocumented in this encounter Additional Health Concerns Infection Onset Date Last Indicated Resolved Time 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 Care Teams Satellite Project Site Monitor Relationship Specialty Start Date End Date Kaylynn Gimenez MD [address] [place] [place] [phone] PCP - General 03/02/15 documented as of this encounter
--- OUTSIDE RECORDS SUMMARY | 2024-06-10 18:45 | XMS_ITS | Encounter Summary ---
Author Organization [facility] Address [address] [place] [address] Care Team Providers Care Anesthesiology Faculty Name Role Phone Kaylynn Gimenez MD Primary Care Provider + [phone] Encounter Details Date Type Department Care Team (Late st Contact Info) Description 06/20/2022 Lab Requisition [facility] Pathology & Laboratory Medicine [address] [address] Outr Resulting Lab, Provider Social History Tobacco [...] Visit [facility] Rheumatology & Immunology - [address] [phone] Micaela Hoff MD [address] [place] [address], [address] [place] [phone] documented as of this encounter Procedures Procedure Name Priority Date/Time Associated Diagnosis Comments CORTISOL Routine 06/20/2022 7:18 EDT documented in this encounter Results * CORTISOL (06/20/2022 7:18 EDT) Cortisol 14 See Note ug/dL 06/20/2022 18:00 EDT [facility] Comment: NOTE: Reference Ranges (from [facility]): Collected Before 10:00 AM: ??4 - 23 ug/dL Collected After 5:00 PM: ?2 - 14 ug/dL The results of this assay can be falsely elevated due to the consumption of Biotin. Blood VENOUS BLOOD / Unknown 06/20/2022 7:18 EDT 06/20/2022 17:17 EDT Provider Outr Resulting Lab CHEMISTRY & BLOOD GAS ORDERABLES [facility] [address] [place] [address] documented in this encounter Visit Diagnoses Not on filedocumented in this encounter Additional Health Concerns Infection Onset Date Last Indicated Resolved Time 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 Care Teams Anesthesiology Faculty Relationship Specialty Start Date End Date Kaylynn Gimenez MD [address] [place] [phone] PCP - General 03/02/15 documented as of this encounter
--- OUTSIDE RECORDS SUMMARY | 2024-06-10 18:45 | XMS_ITS | Encounter Summary ---
Author Organization [facility] Address [address] [place] [address] Care Team Providers Care Windows Security Analyst Name Role Phone None, Provider Primary Care Provider Unavailabl e Encounter Details Date Type Department Care Team (Late st Contact Info) Description 08/08/2014 Phlebotomy Only [address] [address] [place], Outpatient Hypothyroidism Social History Tobacco Use Types Packs/Day Years [...] Info) Description 12/29/2024 10:20 EST Office Visit [facility] Rheumatology & Immunology [address] [phone] Micaela Hoff MD [address] [facility], [address] [place] [address] documented as of this encounter Procedures Procedure Name Priority Date/Time Associated Diagnosis Comments TSH Routine 08/08/2014 12:14 EDT Hypothyroidism T4 FREE Routine 08/08/2014 12:14 EDT Hypothyroidism documented in this encounter Results * T4 FREE (08/08/2014 12:14 EDT) Free T4 1.1 0.8 - 1.8 ng/dl [facility] Blood specimen (specimen) 08/08/2014 12:14 EDT 08/08/2014 12:40 EDT Rehan Abarca MD CHEMISTRY & BLOOD GA S ORDERABLES Performing Organization Address [facility] de Phone Number [facility] [address] [place] [address] * TSH (08/08/2014 12:14 EDT) TSH 0.98 0.35 - 5.00 uIU/ml [facility] Blood specimen (specimen) 08/08/2014 12:14 EDT 08/08/2014 12:40 EDT Reahn Abarca MD CHEMISTRY & BLOOD GA S ORDERABLES Performing Organization Address [facility] de Phone Number [facility] [address] [place] [address] documented in this encounter Visit Diagnoses Diagnosis Hypothyroidism Unspecified hypothyroidism documented in this encounter Additional Health Concerns Infection Onset Date Last Indicated Resolved Time 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 Care Teams Windows Security Analyst Relationship Specialty Start Date End Date None, Provider PCP - General 06/09/14 03/01/15 documented as of this encounter
--- OUTSIDE RECORDS SUMMARY | 2024-06-10 18:45 | XMS_ITS | Encounter Summary ---
Author Organization [facility] Address [address] [place] [address] Care Team Providers Care Student Finance Specialist Name Role Phone Kaylynn Gimenez MD Primary Care Provider + [phone] Reason for Visit * Reason Onset Date Comments Medications Refill 07/08/2022 Encounter Details Date Type Department Care Team (Late st Contact Info) Description 07/08/2022 Telephone [facility] Endocrinology - [facility] [address] [place] [address] Susan Hensley MD [address] [facility] [address] [place] [phone] Medications Refill Social History Tobacco Use Types Packs/Day Years [...] Telephone Encounter - Gilma Puente RN - 07/24/2022 0963 EDT Patient picked up a 90 day supply of lancets at [facility] on 06/12/22. Gilma Puente RN * Telephone Encounter - Viktoriya Juarez MA - 07/08/2022 1114 EDT Images from the original note were not included. Please review note below from viola'lara for lancets thank you. documented in this encounter Plan of Treatment Upcoming Encounters Date Type Department Care Team (Late st Contact Info) Description 12/29/2024 10:20 EST Office Visit [facility] Rheumatology & Immunology - [address] [address] Micaela Hoff MD [address] [place] [address], [address] [place] [address] documented as of this encounter Visit Diagnoses Not on filedocumented in this encounter Additional Health Concerns Infection Onset Date Last Indicated Resolved Time 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 Care Teams Student Finance Specialist Relationship Specialty Start Date End Date Kaylynn Gimenez MD [address] [place] [phone] PCP - General 03/02/15 documented as of this encounter
--- OUTSIDE RECORDS SUMMARY | 2024-06-10 18:45 | XMS_ITS | Encounter Summary ---
Author Organization [facility] Address [address] [place] [address] Care Team Providers Care Pet Counselor Name Role Phone Kaylynn Gimenez MD Primary Care Provider + [phone] Encounter Details Date Type Department Care Team (Late st Contact Info) Description 01/16/2021 Lab Requisition [facility] Pathology & Laboratory Medicine - [address] [address] Outr Resulting Lab, Provider Social History Tobacco Use Types Packs/Day Years Used Date Smoking Tobacco: Former Cigarettes Q uit: 04/08/2014 Smokeless Tobacco: Never Alcohol Use Standard Drinks/Week Comments No 16.7 (1 standard drink = 0.6 oz pure alcohol) Sex and Gender Information Value Date Recorded Sex Assigned at Not on file Gender Identity Not on file Sexual Orientation Not on file documented as of this encounter Plan of Treatment Upcoming Encounters Date Type Department Care Team (Late st Contact Info) Description 12/29/2024 10:20 EST Office Visit [facility] Rheumatology & Immunology - [address] [phone] Micaela Hoff MD [address] [place] [address], [address] 5 [place] [phone] documented as of this encounter Procedures Procedure Name Priority Date/Time Associated Diagnosis Comments INSULIN Routine 01/16/2021 8:34 EDT documented in this encounter Results * INSULIN (01/16/2021 8:34 EDT) Insulin 5.7 <29.0 uIU/mL 01/17/2021 9:17 EDT [facility] Comment: Displayed Reference Range applies to fasting specimens only. Blood VENOUS BLOOD / Unknown 01/16/2021 8:34 EDT 01/16/2021 16:12 EDT Provider Outr Resulting Lab CHEMISTRY & BLOOD GAS ORDERABLES [facility] [address] [place] [address] documented in this encounter Visit Diagnoses Not on filedocumented in this encounter Additional Health Concerns Infection Onset Date Last Indicated Resolved Time 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 Care Teams Pet Counselor Relationship Specialty Start Date End Date Kaylynn Gimenez MD [facility] [place] [address] PCP - General 03/02/15 documented as of this encounter
--- OUTSIDE RECORDS SUMMARY | 2024-06-10 18:45 | XMS_ITS | Encounter Summary ---
Author Organization [facility] Address [address] [place] [address] Care Team Providers Care Catechist Name Role Phone Kaylynn Gimenez MD Primary Care Provider + [phone] Encounter Details Date Type Department Care Team (Late st Contact Info) Description 03/21/2024 Lab Requisition [facility] Pathology & Laboratory Medicine [address] [address] Outr Resulting Lab, Provider Social History Tobacco [...] 12/29/2024 10:20 EST Office Visit [facility] Rheumatology & Immunology - [address] [phone] Micaela Hoff MD [address] [place] [address], [address] [place] [phone] documented as of this encounter Procedures Procedure Name Priority Date/Time Associated Diagnosis Comments CCP ANTIBODIES Routine 03/21/2024 9:04 EDT RHEUMATOID FACTOR Routine 03/21/2024 9:0 4 EDT ANTI NUCLEAR AB (LIZZIE), IFA Routine 03/21/2024 9:04 EDT documented in this encounter Results * RHEUMATOID FACTOR (03/21/2024 9:04 EDT) Rheumatoid Factor 10.5 <12.0 IU/mL 03/21/2024 17:39 EDT [facility] Blood VENOUS BLOOD / Unknown 03/21/2024 9:04 EDT 03/21/2024 17:19 EDT Provider Outr Resulting Lab CHEMISTRY & BLOOD GAS ORDERABLES [facility] [address] [place] [id number] * (ABNORMAL) ANTI NUCLEAR AB (LIZZIE), IFA (03/21/2024 9:04 EDT) LIZZIE Interpretation Positive(A) Negative 03/22/2024 14:31 EDT [facility] Comment: For titers greater than [...] 1:320 Dense Fine Speckled 03/22/2024 14:31 EDT [facility] Blood VENOUS BLOOD / Unknown 03/21/2024 9:04 EDT 03/21/2024 17:19 EDT Narrative [facility] - 03/22/2024 14:31 EDT Results were obtained with the [employer] NOVA Lite HEp-2 LIZZIE Kit by indirect immunofluorescence. Provider Outr Resulting Lab IMMUNOLOGY A ND SEROLOGY ORDERABLES Performing Organization Address City/[facility]/ZIP Co de Phone Number [facility] [address] [place], [place] [phone] * CCP ANTIBODIES (03/21/2024 9:04 EDT) CCP Antibodies <2.5 <5.0 U/mL 03/22/2024 9:26 EDT [facility] Blood VENOUS BLOOD / Unknown 03/21/2024 9:04 EDT 03/21/2024 17:19 EDT Provider Outr Resulting Lab IMMUNOLOGY A ND SEROLOGY ORDERABLES Performing Organization Address [facility] Co de Phone Number [facility] [address] [place], [place] [phone] documented in this encounter Visit Diagnoses Not on filedocumented in this encounter Additional Health Concerns Infection Onset Date Last Indicated Resolved Time 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 Care Teams Catechist Relationship Specialty Start Date End Date Kaylynn Gimenez MD [facility] [place] [address] PCP - General 03/02/15 documented as of this encounter
--- OUTSIDE RECORDS SUMMARY | 2024-06-10 18:45 | XMS_ITS | Encounter Summary ---
Author Organization [facility] Address [address] [place] [address] Care Team Providers Care Monorail Hooker Name Role Phone None, Provider Primary Care Provider Unavailabl e Reason for Visit * Reason Comments Routine Visit Encounter Details Date Type Department Care Team (Late st Contact Info) Description 08/08/2014 12:45 EDT Routine [facility] Obstetrics & Midwifery - [address] [phone] Tasha Torres MD [address] [place] [address], [address] [place] [address] GA: 20w4d Discharge Disposition: Auto Discharge Social History Tobacco Use Types Packs/Day Years [...] Blood Pressure 120/62 08/08/2014 1131 EDT Pulse - - Temperature - - Respiratory Rate - - Oxygen Saturation - - Inhaled Oxygen Concentration - - Weight 91.2 kg (201 lb) 08/08/2014 1131 EDT Height 170.2 cm (5' 7) 08/08/2014 1131 EDT Body Mass Index 31.48 08/08/2014 1131 EDT documented in this encounter Discharge Diagnoses Diagnosis 244.9 HYPOTHYROIDISM NOS[ICD-9-CM] V23.89 SUPERVISION OF OTHER HIGH-RISK [ICD-9-CM] V04.81 NEED FOR PROPHYLACTIC VACCINATION AND INOCULATION, INFLUENZA[ICD-9-CM] documented in this encounter Discharge Disposition Disposition Code Departure Means Destination Auto Discharge documented in this encounter Progress Notes * Duyen Haro RN - 08/14/2014 1144 EDT Records faxed to [facility] HTML WEB DEVELOPER, Dr. Smith's office per Teri's request, as she signed a record release with her last visit. * Tasha Torres MD - 08/08/2014 1543 EDT Feeling well. No ctx, lof, change in discharge, or bleeding. Feeling FM. Wants second MRSA clearance swab done today and flu shot. Blood pressure 120/62, height 170.2 cm (67), weight 91.173 kg (201 lb), last menstrual period 03/17/2014, not currently . +fhts on sono Nasal swab done Short cervix, antepartum Cerclage placed at 17+5 for short cervix (15 mm) with history of pre-term labor No s/sx Continues IM progesterone Thyroid dysfunction, antepartum Repeat TSH ordered today Supervision of other high-risk (V23.89) Rh+/ab screen neg/HIV neg/HCV neg/HbSag neg/sts NR/RI Ucx neg Integrated screen low risk Normal detailed ENIO Received flu shot RTC 4 weeks, precautions given. documented in this encounter Miscellaneous Notes * Assessment & Plan Note - Tasha Torres MD - 08/08/2014 8578 EDTAssociated Problem(s): Supervision of other high-risk Rh+/ab screen neg/HIV neg/HCV neg/HbSag neg/sts NR/RI Ucx neg Integrated screen low risk Normal detailed ENIO * Assessment & Plan Note - Tasha Torres MD - 08/08/2014 1531 EDTAssociated Problem(s): Disorder of thyroid, antepartum Repeat TSH ordered today * Assessment & Plan Note - Tasha Torres MD - 08/08/2014 1531 EDTAssociated Problem(s): with history of pre-term labor No s/sx Continues IM progesterone * Assessment & Plan Note - Tasha Torres MD - 08/08/2014 1438 EDTAssociated Problem(s): Short cervix, antepartum Cerclage placed at 17+5 for short cervix (15 mm) documented in this encounter Plan of Treatment Upcoming Encounters Date Type Department Care Team (Late st Contact Info) Description 12/29/2024 10:20 EST Office Visit [facility] Rheumatology & Immunology - [address] [address] Micaela Hoff MD [address] [place] [address], [address] [place] [address] documented as of this encounter Procedures Procedure Name Priority Date/Time Associated Diagnosis Comments MRSA INFECTION CONTROL CULTURE Routine 08/08/2014 11:41 EDT Supervision of other high-risk (V23.89) documented in this encounter Results * T4 FREE (08/08/2014 12:14 EDT) Free T4 1.1 0.8 - 1.8 ng/dl [facility] Blood specimen (specimen) 08/08/2014 12:14 EDT 08/08/2014 12:40 EDT Rehan Abarca MD CHEMISTRY & BLOOD GA S ORDERABLES Performing Organization Address City/[facility]/ZIP Co de Phone Number [facility] [address] [place] [address] * TSH (08/08/2014 12:14 EDT) TSH 0.98 0.35 - 5.00 uIU/ml [facility] Blood specimen (specimen) 08/08/2014 12:14 EDT 08/08/2014 12:40 EDT Rehan Abarca MD CHEMISTRY & BLOOD GA S ORDERABLES Performing Organization Address [facility] Co de Phone Number [facility] [address] [place] [address] * MRSA INFECTION CONTROL CULTURE (08/08/2014 11:41 EDT) Specimen Description Nasal [facility] Result No Staphylococcus aureus isolated. [facility] Report Status 08/10/2014 Final [facility] NASAL ROUTE / Unknown 08/08/2014 11:41 EDT 08/08/2014 12:01 EDT Tasha Torres MD MICROBIOLOGY - GENERAL ORDERABLES Performing Organization Address [facility] Co de Phone Number [facility] [address] [place] [address] documented in this encounter Visit Diagnoses Diagnosis Hypothyroidism- Primary Unspecified hypothyroidism Supervision of other high-risk (V23.89) Supervision of other high-risk Need for immunization against influenza Need for prophylactic vaccination and inoculation against influenza documented in this encounter Historical Medications * This list may reflect changes made after this encounter. Medication Sig Dispensed Refills Start Date End Date hydroxyprogesterone caproate (SONG) 250 mg/mL injection Inject 250 mg into the muscle every 7 days. 05/21/2021 added in this encounter Orders Immunization/Injection Count Last Ordered Date First Ordered Date INFLUENZA VACCINE =>3YO QUAD PRESERVATIVE FREE IM 1 08/08/2014 documented in this encounter Additional Health Concerns Infection Onset Date Last Indicated Resolved Time 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 Care Teams Monorail Hooker Relationship Specialty Start Date End Date None, Provider PCP - General 06/09/14 03/01/15 documented as of this encounter
--- OUTSIDE RECORDS SUMMARY | 2024-06-10 18:45 | XMS_ITS | Encounter Summary ---
Author Organization [facility] Address [address] [place] [address] Care Team Providers Care Defence Force Member Other Ranks Name Role Phone Kaylynn Gimenez MD Primary Care Provider + [phone] Encounter Details Date Type Department Care Team (Late st Contact Info) Description 02/11/2017 13:00 EDT - 02/11/2017 23:59 EDT Hospital Encounter [facility] - Other [address] [place] [address] Robert Koo MD [address] [facility], [address] [place] [address] Discharge Disposition: Auto Discharge Social History Tobacco [...] as of this encounter Discharge Diagnoses Diagnosis Z00.00 Encounter for general adult medical examination without abnormal findings-Z00.00[ICD-10-CM] documented in this encounter Medications at Time [...] by mouth daily. 90 Cap 4 03/02/2012 hydroxyprogesterone caproate (SONG) 250 mg/mL injection Inject 250 mg into the muscle every 7 days. 05/21/2021 VIT/IRON FUMARATE/FA ( ORAL) Take by mouth. 05/21/2021 documented as of this encounter Discharge Disposition Disposition Code Departure Means Destination Auto Discharge Home documented in this encounter Plan of Treatment Upcoming Encounters Date Type Department Care Team (Late st Contact Info) Description 12/29/2024 10:20 EST Office Visit [facility] Rheumatology & Immunology - [address] [phone] Micaela Hoff MD [address] [place] [address], [address] [place] [phone] documented as of this encounter Visit Diagnoses Not on filedocumented in this encounter Additional Health Concerns Infection Onset Date Last Indicated Resolved Time 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 Care Teams Defence [employer] Member Other Ranks Relationship Specialty Start Date End Date Kaylynn Gimenez MD [address] [place] [phone] PCP - General 03/02/15 documented as of this encounter
--- OUTSIDE RECORDS SUMMARY | 2024-06-10 18:45 | XMS_ITS | Encounter Summary ---
Author Organization [facility] Address [address] [place] [address] Care Team Providers Care Corporate Communications Associate Name Role Phone None, Provider Primary Care Provider Unavailabl e Encounter Details Date Type Department Care Team (Late st Contact Info) Description 07/11/2014 Results Only [facility] Obstetrics & Midwifery - [address] [phone] Tasha Torres MD [address] [place] [address] 4 [place] [address] Social History Tobacco Use Types Packs/Day Years [...] Info) Description 12/29/2024 10:20 EST Office Visit [facility] Rheumatology & Immunology - [address] [phone] Micaela Hoff MD [address] [place] [address], [facility] 5 [place] [phone] documented as of this encounter Procedures Procedure Name Priority Date/Time Associated Diagnosis Comments [id number] INTEGRATED SCREEN Routine 07/11/2014 10:30 EDT documented in this encounter Results * 2ND INTEGRATED SCREEN (07/11/2014 10:30 EDT) Result-Integrated Screen (Note) [facility] Comment: Interpretation: ??Screen Negative Down Syndrome Risk: ??1:1700 Trisomy 18 Risk: 1:49299 ONTD Risk: ??1:2000 Interpretation See Pathology Scanned Report in PRISM. [facility] Reference Lab Assayed at [place] [facility] 07/11/2014 10:3 0 EDT 07/11/2014 10:46 EDT Tasha Torres MD CHEMISTRY & BLOOD GAS ORDERABLES Performing Organization Address City/State/[facility] Co de Phone Number [facility] [address] [place] [address] documented in this encounter Visit Diagnoses Not on filedocumented in this encounter Additional Health Concerns Infection Onset Date Last Indicated Resolved Time 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 Care Teams Corporate Communications Associate Relationship Specialty Start Date End Date None, Provider PCP - General 06/09/14 03/01/15 documented as of this encounter
--- OUTSIDE RECORDS SUMMARY | 2024-06-10 18:45 | XMS_ITS | Encounter Summary ---
Author Organization [facility] Address [address] [place] [address] Care Team Providers Care System Dispatcher Name Role Phone None, Provider Primary Care Provider Unavailabl e Encounter Details Date Type Department Care Team (Late st Contact Info) Description 07/11/2014 Phlebotomy Only [address] [address] Cottage Parent, Outpatient Social History Tobacco Use Types Packs/Day Years [...] Encounters Date Type Department Care Team (Late Contact Info) Description 12/29/2024 10:20 EST Office Visit [facility] Rheumatology & Immunology [address] [phone] Micaela Hoff MD [address] [facility], [facility] [address] [place] [address] documented as of this encounter Visit Diagnoses Not on filedocumented in this encounter Additional Health Concerns Infection Onset Date Last Indicated Resolved Time 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 Care Teams System Dispatcher Relationship Specialty Start Date End Date None, Provider PCP - General 06/09/14 03/01/15 documented as of this encounter
--- OUTSIDE RECORDS SUMMARY | 2024-06-10 18:45 | XMS_ITS | Encounter Summary ---
Author Organization [facility] Address [address] [place] [address] Care Team Providers Care Hospital Administrator Name Role Phone Kaylynn Gimenez MD Primary Care Provider + [phone] Encounter Details Date Type Department Care Team (Late st Contact Info) Description 03/26/2023 Lab Requisition [facility] Pathology & Laboratory Medicine [address] [address] Esther Miller, TOWER OPERATOR [address] [place] [address] Encounter for other general examination Social History Tobacco Use Types Packs/Day Years [...] Info) Description 12/29/2024 10:20 EST Office Visit [facility] Rheumatology & Immunology - [address] [address] Micaela Hoff MD [address] [place] [address], [address] 5 [place] [address] documented as of this encounter Procedures Procedure Name Priority Date/Time Associated Diagnosis Comments PAP TEST Today 03/25/2023 11:00 EDT Encounter for other general examination HPV DNA DETECTION WITH GENOTYPING, PCR Today 03/25/2023 11:00 EDT Encounter for other general examination documented in this encounter Results * HUMAN PAPILLOMAVIRUS (HPV) DETECTION-HIGH RISK TYPES (03/25/2023 11:00 EDT) HPV other High Risk types, PCR Negative Negative 04/09/2023 17:48 EDT [facility] Comment:No E6 or E7 mRNA is detected from HPV types 16,18,31,33,35,39,45,51,52,56,58,59,66, and 68 by buyer renter mediated amplification. Papanicolaou smear specimen (specimen) CERVIX UTERI STRUCTURE / Unknown 03/25/2023 11:00 EDT 04/09/2023 10:54 EDT Esther Miller APRN MICROBIOLOGY - NERAL ORDERABLES [facility] [address] [place] [address] * PAP TEST (03/25/2023 11:00 EDT) Specimens A. Cervix and/or Endocervix , ThinPrep Imaging System with Manual Evaluation 04/09/2023 17:48 EDT [facility] Specimen Adequacy Satisfactory for Evaluation - transformation zone component absent 04/09/2023 17:48 EDT [facility] General Categorization Negative for intraepithelial lesion or malignancy 04/09/2023 17:48 EDT [facility] Attestation . 04/09/2023 17:48 EDT [facility] at 9598 Clinical History See below 06/08/20 23 17:48 EDT [facility] HPV The result for the Human Papillomavirus (HPV) Detection-High Risk Types is Negative. No E6 or E7 mRNA is detected from HPV types 16,18,31,33,35,39 ,45,51,52,56,58,5 9,66, and 68 by buyer renter mediated amplification.Leonie ting was performed on specimen [id number] and was resulted on 04/09/2023 1748 EDT by JONATHAN, LAB INSTRUMENT RESULTS IN 04/09/2023 17:48 EDT [facility] Performing Lab [facility] 04/09/2023 17:48 EDT [facility] Scanned Images 04/09/2023 17:48 EDT [facility] Papanicolaou smear specimen (specimen) CERVIX UTERI STRUCTURE / Unknown 03/25/2023 11:00 EDT 03/26/2023 15:21 EDT Esther Miller APRN PATHOLOGY ORDERAB LES [facility] [address] [place] [address] documented in this encounter Visit Diagnoses Diagnosis Encounter for other general examination documented in this encounter Additional Health Concerns Infection Onset Date Last Indicated Resolved Time 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 Care Teams Hospital Administrator Relationship Specialty Start Date End Date Kaylynn Gimenez MD [facility] [place] [address] PCP - General 03/02/15 documented as of this encounter
--- OUTSIDE RECORDS SUMMARY | 2024-06-10 18:45 | XMS_ITS | Encounter Summary ---
Author Organization [facility] Address [address] [place] [address] Care Team Providers Care Resident Services Director Name Role Phone None, Provider Primary Care Provider Unavailabl e Encounter Details Date Type Department Care Team (Late st Contact Info) Description 07/13/2014 Documentation Visit [facility] Obstetrics & Midwifery [address] [address] Rehan Abarca MD [address] [place] [address] [place] [address] Social History Tobacco Use Types Packs/Day Years [...] on file documented as of this encounter Progress Notes * Juliana Cardona - 07/13/2014 1543 EDT Integrated results received on 07.13.14. Tiffany Cardona documented in this encounter Plan of Treatment Upcoming Encounters Date Type Department Care Team (Late st Contact Info) Description 12/29/2024 10:20 EST Office Visit [facility] Rheumatology & Immunology - [address] [phone] Micaela Hoff MD [address] [place] [address], [address] [place] [address] documented as of this encounter Visit Diagnoses Not on filedocumented in this encounter Additional Health Concerns Infection Onset Date Last Indicated Resolved Time 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 Care Teams Resident Services Director Relationship Specialty Start Date End Date None, Provider PCP - General 06/09/14 03/01/15 documented as of this encounter
--- OUTSIDE RECORDS SUMMARY | 2024-06-10 18:45 | XMS_ITS | Encounter Summary ---
Author Organization [facility] Address [address] [place] [address] Care Team Providers Care Motor Vehicle Assembly Supervisor Name Role Phone Kaylynn Gimenez MD Primary Care Provider + [phone] Encounter Details Date Type Department Care Team (Late st Contact Info) Description 07/16/2021 Lab Requisition [facility] Pathology & Laboratory Medicine [address] [address] Outr Resulting Lab, Provider Social History Tobacco [...] Info) Description 12/29/2024 10:20 EST Office Visit [facility] Rheumatology & Immunology - [address] [phone] Micaela Hoff MD [address] [place] [address], [address] [place] [phone] documented as of this encounter Procedures Procedure Name Priority Date/Time Associated Diagnosis Comments CELIAC DISEASE PANEL Routine 07/16/2021 12:55 EDT HEPATITIS C AB W REFLEX TO HCV RNA BY PCR Routine 07/16/2021 12:55 EDT documented in this encounter Results * HEPATITIS C AB W REFLEX TO HCV RNA BY PCR (07/16/2021 12:55 EDT) Hep C Antibody Negative Negative 07/17/2021 10:31 EDT [facility] Blood VENOUS BLOOD / Unknown 07/16/2021 12:55 EDT 07/16/2021 21:37 EDT Provider Outr Resulting Lab CHEMISTRY & BLOOD GAS ORDERABLES Performing Organization Address City/State/[facility] Co de Phone Number [facility] [address] [place] [address] * CELIAC DISEASE PANEL (07/16/2021 12:55 EDT) Tissue Transglutaminase Antibody IGA <1.2 <4.0 U/mL 07/17/2021 12:06 EDT [facility] Comment: A negative result may be due to IgA deficiency and does not rule out celiac disease. ? Negative: ??<4.0 U/mL ? Weak Positive: ??4.0 - 10.0 U/mL ? Positive: ??>10.0 U/mL Results were obtained with the [employer] QUANTA Lite R h-tTG IgA YONATHAN assay on the [employer] DSX. IgA 191 85 - 499 mg/dL 07/17/2021 12:06 EDT [facility] Celiac Disease Interpretation Negative Serology. Celiac disease unlikely. Approximately 10% of patients with celiac disease are seronegative. Patients who are already adhering to a gluten-free diet may also be seronegative. If celiac disease is highly clinically suspected, referral to gastroenterology for additional evaluation is recommended. 07/17/2021 12:06 EDT [facility] Blood VENOUS BLOOD / Unknown 07/16/2021 12:55 EDT 07/16/2021 21:37 EDT Provider Outr Resulting Lab IMMUNOLOGY A ND SEROLOGY ORDERABLES Performing Organization Address City/State/[facility] Co de Phone Number [facility] [address] [place] [address] documented in this encounter Visit Diagnoses Not on filedocumented in this encounter Additional Health Concerns Infection Onset Date Last Indicated Resolved Time 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 Care Teams Motor Vehicle Assembly Supervisor Relationship Specialty Start Date End Date Kaylynn Gimenez MD [address] [place] [phone] PCP - General 03/02/15 documented as of this encounter
--- OUTSIDE RECORDS SUMMARY | 2024-06-10 18:45 | XMS_ITS | Encounter Summary ---
Author Organization [facility] Address [address] [place] [address] Care Team Providers Care Stone Setter Metal Optical Frames Name Role Phone Kaylynn Gimenez MD Primary Care Provider + [phone] Encounter Details Date Type Department Care Team (Late st Contact Info) Description 07/20/2020 Lab Requisition [facility] Pathology & Laboratory Medicine [address] [address] Duyen Mcdowell MD [facility] [place], [place] [phone] Encounter for other general examination Social History [...] [facility] Rheumatology & Immunology - [address] [phone] Micaela Hoff MD [address] [facility], [address] [place] [phone] documented as of this encounter Procedures Procedure Name Priority Date/Time Associated Diagnosis Comments PAP TEST Today 07/19/2020 10:15 EDT Encounter for other general examination HPV DNA DETECTION WITH GENOTYPING, PCR Today 07/19/2020 10:15 EDT Encounter for other general examination documented in this encounter Results * HUMAN PAPILLOMAVIRUS (HPV) DETECTION-HIGH RISK TYPES (07/19/2020 10:15 EDT) HPV other High Risk types, PCR Negative Negative 07/25/2020 23:43 EDT [facility] Comment:No E6 or E7 mRNA is detected from HPV types 16,18,31,33,35,39,45,51,52,56,58,59,66, and 68 by windshield installer mediated amplification. Papanicolaou smear specimen (specimen) CERVIX UTERI STRUCTURE / Unknown 07/19/2020 10:15 EDT 07/24/2020 13:47 EDT Duyen Mcdowell MD MICROBIOLOGY - GENER AL ORDERABLES [facility] [address] [place] [address] * PAP TEST (07/19/2020 10:15 EDT) Specimens A. Cervix and/or Endocervix , ThinPrep Imaging System with Manual Evaluation 07/25/2020 23:43 EDT [facility] Specimen Adequacy Satisfactory for Evaluation - transformation zone component absent 07/25/2020 23:43 EDT [facility] General Categorization Negative for intraepithelial lesion or malignancy 07/25/2020 23:43 T [facility] Attestation . 07/25/2020 23:43 T [facility] at 2343 Clinical History See below 07/25/20 20 23:43 EDT [facility] HPV The result for the Human Papillomavirus (HPV) Detection-High Risk Types is Negative. No E6 or E7 mRNA is detected from HPV types 16,18,31,33,35,39 ,45,51,52,56,58,5 9,66, and 68 by windshield installer mediated amplification.Leonie ting was performed on specimen [id number] and was resulted on 07/25/2020 2255 EDT by JONATHAN, LAB INSTRUMENT RESULTS IN 07/25/2020 23:43 EDT [facility] Performing Lab [facility] 07/25/2020 23:43 EDT [facility] Scanned Images 07/25/2020 23:43 EDT [facility] Papanicolaou smear specimen (specimen) CERVIX UTERI STRUCTURE / Unknown 07/19/2020 10:15 EDT 07/20/2020 9:11 EDT Duyen Mcdowell MD PATHOLOGY ORDERABLES [facility] [address] [place] [address] documented in this encounter Visit Diagnoses Diagnosis Encounter for other general examination documented in this encounter Additional Health Concerns Infection Onset Date Last Indicated Resolved Time 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 Care Teams Stone Setter Metal Optical Frames Relationship Specialty Start Date End Date Kaylynn Gimenez MD [facility] [place] [phone] PCP - General 03/02/15 documented as of this encounter
--- OUTSIDE RECORDS SUMMARY | 2024-06-10 18:45 | XMS_ITS | Encounter Summary ---
Author Organization [facility] Address [address] [place] [address] Care Team Providers Care Under Water Assistant Name Role Phone None, Provider Primary Care Provider Unavailabl e Reason for Visit * Reason Onset Date Comments Appointment Related 09/07/2014 Encounter Details Date Type Department Care Team (Late st Contact Info) Description 09/07/2014 Telephone [facility] Obstetrics & Midwifery - [facility] [address] [place], [place] [phone] Soledad Crawley, RN Appointment Related Social History [...] Telephone Encounter - Soledad Crawley RN - 09/07/2014 1327 EST Multiple calls from Teri between yesterday, 09/06, and today 09/07 regarding her upcoming appointments. Currently, she is receiving weekly Ary injections in [place]. Patient had injection this AM and per patient reports, she receives quick exam/assessment while she is there. Denies any complaintsregarding her cerclage- no LOF, no cramping, no discharge, etc. Not sure she wants to have two appointments today and doesn't think she can get to [place] in time for her 2:00pm appointment. Offered to reschedule to a different day- with options offered for appointments next week which patient declined due to work, transportation, and childcare issues. Next appointment scheduled for 09/19. Alexsandra ent inquiring about receiving care closer to home in [place] as she is having Ary injections there already. Advised she discuss with provider at next visit and for coordination of these appointments, patient agreed to this plan. Asked she call [facility] filing or registry clerk with any concerns or questions. documented in this encounter Plan of Treatment Upcoming Encounters Date Type Department Care Team (Late st Contact Info) Description 12/29/2024 10:20 EST Office Visit [facility] Rheumatology & Immunology - [address] [address] Micaela Hoff MD [address] [place] [address], [address] [place] [address] documented as of this encounter Visit Diagnoses Not on filedocumented in this encounter Additional Health Concerns Infection Onset Date Last Indicated Resolved Time 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 Care Teams Under Water Assistant Relationship Specialty Start Date End Date None, Provider PCP - General 06/09/14 03/01/15 documented as of this encounter
--- OUTSIDE RECORDS SUMMARY | 2024-06-10 18:45 | XMS_ITS | Encounter Summary ---
Author Organization [facility] Address [address] [place] [address] Care Team Providers Care Wire Steward Name Role Phone Kaylynn Gimenez MD Primary Care Provider + [phone] Encounter Details Date Type Department Care Team (Late st Contact Info) Description 05/31/2021 Lab Requisition [facility] Pathology & Laboratory Medicine [address] [address] Outr Resulting Lab, Provider Social History Tobacco [...] 12/29/2024 10:20 EST Office Visit [facility] Rheumatology & Immunology - [address] [phone] Micaela Hoff MD [address] [place] [address], [address] [place] [phone] documented as of this encounter Procedures Procedure Name Priority Date/Time Associated Diagnosis Comments BETA HYDROXYBUTYRATE Routine 05/30/2021 16:05 EDT INSULIN Routine 05/30/2021 16:05 EDT CORTISOL Routine 05/30/2021 16:05 EDT documented in this encounter Results * BETA HYDROXYBUTYRATE (05/30/2021 16:05 EDT) Beta Hydroxybutyrate 0.3 <0.4 mmol/L 05/31/2021 16:06 EDT [facility] Blood VENOUS BLOOD / Unknown 05/30/2021 16:05 EDT 05/31/2021 15:51 EDT Provider Outr Resulting Lab CHEMISTRY & BLOOD GAS ORDERABLES Performing Organization Address [facility] Co de Phone Number [facility] [address] [place] [address] * INSULIN (05/30/2021 16:05 EDT) Pathologist [facility] Insulin 6.4 <29.0 uIU/mL 06/06/2021 10:10 EDT [facility] Comment: Displayed Reference Range applies to fasting specimens only. Blood VENOUS BLOOD / Unknown 05/30/2021 16:05 EDT 05/31/2021 15:51 EDT Provider Outr Resulting Lab CHEMISTRY & BLOOD GAS ORDERABLES Performing Organization Address [facility]/ZIP Co de Phone Number [facility] [address] [place] [address] * CORTISOL (05/30/2021 16:05 EDT) Cortisol 5 See Note ug/dL 05/31/2021 16:31 EDT [facility] Comment: NOTE: Reference Ranges (from [facility] IF[facility]): Collected Before 10:00 AM: ??4 - 23 ug/dL Collected After 5:00 PM: ?2 - 14 ug/dL The results of this assay can be falsely elevated due to the consumption of Biotin. Blood VENOUS BLOOD / Unknown 05/30/2021 16:05 EDT 05/31/2021 15:51 EDT Provider Outr Resulting Lab CHEMISTRY & BLOOD GAS ORDERABLES Performing Organization Address City/State/[facility] Co de Phone Number [facility] [address] [place] [address] documented in this encounter Visit Diagnoses Not on filedocumented in this encounter Additional Health Concerns Infection Onset Date Last Indicated Resolved Time 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 Care Teams Wire Steward Relationship Specialty Start Date End Date Kaylynn Gimenez MD [address] [place] [phone] PCP - General 03/02/15 documented as of this encounter
--- OUTSIDE RECORDS SUMMARY | 2024-06-10 18:45 | XMS_ITS | Encounter Summary ---
Author Organization [facility] Address [address] [place] [address] Care Team Providers Care Remote Encoding Center Manager Name Role Phone None, Provider Primary Care Provider Unavailabl e Encounter Details Date Type Department Care Team (Latest Contact Info) Description 12/13/2014 8:52 EST - 12/13/2014 23:59 [facility] Hospital Encounter [facility] - [address] [address] Unknown, Provider, Discharge Disposition: Home or Self Care Social [...] on file documented as of this encounter Medications at Time of Discharge [...] Code Departure Means Destination Home or Self Long Term documented in this encounter Plan of Treatment Upcoming Encounters Date Type Department Care Team (Late st Contact Info) Description 12/29/2024 10:20 EST Office Visit [facility] Rheumatology & Immunology - [address] [address] Micaela Hoff MD [address] [place] [address], [address] [place] [address] documented as of this encounter Visit Diagnoses Not on filedocumented in this encounter Additional Health Concerns Infection Onset Date Last Indicated Resolved Time 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 Care Teams Remote Encoding Center Manager Relationship Specialty Start Date End Date None, Provider PCP - General 06/09/14 03/01/15 documented as of this encounter
--- OUTSIDE RECORDS SUMMARY | 2024-06-10 18:45 | XMS_ITS | Encounter Summary ---
Author Organization [facility] Address [address] [place] [address] Care Team Providers Care Rv Repairer Name Role Phone Kaylynn Gimenez MD Primary Care Provider + [phone] Encounter Details Date Type Department Care Team (Latest Contact Info) Description 09/10/2015 15:36 EST - 09/10/2015 23:59 [facility] Hospital Encounter [address] [address] Unknown, Provider, Discharge Disposition: Home or Self [...] Code Departure Means Destination Home or Self Snf documented in this encounter Plan of Treatment Upcoming Encounters Date Type Department Care Team (Late st Contact Info) Description 12/29/2024 10:20 EST Office Visit [facility] Rheumatology & Immunology - [address] [address] Micaela Hoff MD [address] [place] [address], [address] [place] [phone] documented as of this encounter Visit Diagnoses Not on filedocumented in this encounter Additional Health Concerns Infection Onset Date Last Indicated Resolved Time 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 Care Teams Rv Repairer Relationship Specialty Start Date End Date Kaylynn Gimenez MD [address] [place] [phone] PCP - General 03/02/15 documented as of this encounter
--- OUTSIDE RECORDS SUMMARY | 2024-06-10 18:45 | XMS_ITS | Encounter Summary ---
Author Organization [facility] Address [address] [place] [address] Care Team Providers Care Clinical Data Programmer Name Role Phone None, Provider Primary Care Provider Unavailabl e Encounter Details Date Type Department Care Team (Late st Contact Info) Description 08/08/2014 9:06 EDT - 08/08/2014 23:59 EDT Hospital Encounter [facility] [phone] Tasha Torres MD [address] [facility], [address] [place] [phone] Discharge Disposition: Home or Self Care Social [...] as of this encounter Discharge Diagnoses Diagnosis 244.9 HYPOTHYROIDISM NOS[ICD-9-CM] V23.89 SUPERVISION OF OTHER HIGH-RISK [ICD-9-CM] V04.81 NEED FOR PROPHYLACTIC VACCINATION AND INOCULATION, INFLUENZA[ICD-9-CM] documented in this encounter Medications at Time [...] Code Departure Means Destination Home or Self Longterm documented in this encounter Plan of Treatment Upcoming Encounters Date Type Department Care Team (Late st Contact Info) Description 12/29/2024 10:20 EST Office Visit [facility] Rheumatology & Immunology - [address] [phone] Micaela Hoff MD [address] [place] [address], [address] [place] [phone] documented as of this encounter Visit Diagnoses Not on filedocumented in this encounter Additional Health Concerns Infection Onset Date Last Indicated Resolved Time 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 Care Teams Clinical Data Programmer Relationship Specialty Start Date End Date None, Provider PCP - General 06/09/14 03/01/15 documented as of this encounter
--- OUTSIDE RECORDS SUMMARY | 2024-06-10 18:45 | XMS_ITS | Encounter Summary ---
Author Organization [facility] Address [address] [place] [address] Care Team Providers Care Drilling Field Operator Name Role Phone Kaylynn Gimenez MD Primary Care Provider + [phone] Reason for Visit * Reason Onset Date Comments Medications Refill 03/25/2023 Encounter Details Date Type Department Care Team (Late st Contact Info) Description 03/25/2023 Telephone [facility] [address] [place], [place] [phone] Hina Townsend MD [address] [facility] [address] [place] [address] Medications Refill Social History Tobacco Use Types [...] Telephone Encounter - Hina Elias MD - 03/31/2023 0923 EDT My chart message sent Hi Teri You can try metformin which is a pill that we use to help with insulin resistance that sometimes causes the symptoms you were describing. This pill can cause abdominal cramps and diarrhea. ?? Let me know if you are interested. Dr. Townsend * Telephone Encounter - Chemajulieneduar Tiffany - 03/25/2023 1145 EDT Patient thought she has an appt tomorrow but that was canceled when the appt was moved up. She said that Dr Townsend was going to go over her labs and help her out with her blood sugar and discuss meds. Patient states she did her labs awhile back and has not had any communication with anyone here. The note from January says to follow up in August, but patient thought that she was going to see Dr Townsend now and go over labs and meds. Please call patient back to discuss this. documented in this encounter Plan of Treatment Upcoming Encounters Date Type Department Care Team (Late st Contact Info) Description 12/29/2024 10:[address] [facility] Rheumatology & Immunology - [address] [phone] Micaela Hoff MD [address] [place] [address], [address] [place] [phone] documented as of this encounter Visit Diagnoses Not on filedocumented in this encounter Additional Health Concerns Infection Onset Date Last Indicated Resolved Time 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 Care Teams Drilling Field Operator Relationship Specialty Start Date End Date Kaylynn Gimenez MD [address] [place] [phone] PCP - General 03/02/15 documented as of this encounter
--- OUTSIDE RECORDS SUMMARY | 2024-06-10 18:45 | XMS_ITS | Encounter Summary ---
Author Organization [facility] Address [address] [place] [address] Care Team Providers Care Provider Enrollment Specialist Name Role Phone None, Provider Primary Care Provider Unavailabl e Encounter Details Date Type Department Care Team (Late st Contact Info) Description 07/11/2014 10:40 EDT - 07/11/2014 11:09 EDT Hospital Encounter [facility] [address] [place] [address] Makeda Lucas MD [address] [facility], [address] [place] [phone] Discharge Disposition: Auto Discharge Social History Tobacco [...] as of this encounter Discharge Diagnoses Diagnosis V15.89 PERS HX HEALTH HAZARDS NEC[ICD-9-CM] documented in this encounter Medications at Time [...] Info) Description 12/29/2024 10:20 EST Office Visit [facility] Rheumatology & Immunology - [address] [phone] Micaela Hoff MD [address] [place] [address], [address] [place] [address] documented as of this encounter Visit Diagnoses Not on filedocumented in this encounter Additional Health Concerns Infection Onset Date Last Indicated Resolved Time 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 Care Teams Provider Enrollment Specialist Relationship Specialty Start Date End Date None, Provider PCP - General 06/09/14 03/01/15 documented as of this encounter
--- OUTSIDE RECORDS SUMMARY | 2024-06-10 18:45 | XMS_ITS | Encounter Summary ---
Author Organization [facility] Address [address] [place] [address] Care Team Providers Care Band Ripsaw Operator Name Role Phone None, Provider Primary Care Provider Unavailabl e Reason for Visit * Reason Onset Date Comments Headache 07/21/2014 Encounter Details Date Type Department Care Team (Late st Contact Info) Description 07/21/2014 Telephone [facility] Reproductive Medicine & Infertility Center - [facility] [address] [place] [address] Aura Bui, RN [address] [place] [address] Headache Social History Tobacco Use Types Packs/Day Years [...] encounter Miscellaneous Notes * Telephone Encounter - Aura Bui, JANNA - 07/21/2014 1016 EDT Teri had a cerclage done under spinal anesthesia on 07/19/14. She developed a headache on the way home after the procedure which has gotten progressively worse. It is presently 7-8 on the pain scale.She has been unable to sleep since the procedure. She notes that the headache lessens a little whenshe pushes fluids. Anesthesia Department has been notified and will call her. . documented in this encounter Plan of Treatment Upcoming Encounters Date Type Department Care Team (Late st Contact Info) Description 12/29/2024 10:20 EST Office Visit [facility] Rheumatology & Immunology - [address] [phone] Micaela Hoff MD [address] [place] [address], [address] [place] [address] documented as of this encounter Visit Diagnoses Not on filedocumented in this encounter Additional Health Concerns Infection Onset Date Last Indicated Resolved Time 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 Care Teams Band Ripsaw Operator Relationship Specialty Start Date End Date None, Provider PCP - General 06/09/14 03/01/15 documented as of this encounter
--- OUTSIDE RECORDS SUMMARY | 2024-06-10 18:45 | XMS_ITS | Encounter Summary ---
Author Organization [facility] Address [address] [place] [address] Care Team Providers Care Field Artillery Fire Control Man Name Role Phone Kaylynn Gimenez MD Primary Care Provider + [phone] Encounter Details Date Type Department Care Team (Late st Contact Info) Description 06/09/2024 Lab Requisition [facility] Pathology & Laboratory Medicine [address] [address] Outr Resulting Lab, Provider Social History Tobacco [...] Description 12/29/2024 10:20 EST Office Visit [facility] Rheumatology & Immunology - [address] [phone] Micaela Hoff MD [address] [place] [address], [address] [place] [phone] documented as of this encounter Procedures Procedure Name Priority Date/Time Associated Diagnosis Comments CHLAMYDIA/N. GONORRHOEAE AMPLIFIED NUCLEIC ACID Routine 06/08/2024 15:45 EDT documented in this encounter Results * CHLAMYDIA/N. GONORRHOEAE AMPLIFIED NUCLEIC ACID (06/08/2024 15:45 EDT) Neisseria gonorrhoeae Result Negative Negative 06/10/2024 12:11 EDT [facility] Chlamydia trachomatis Result Negative Negative 06/10/2024 12:11 EDT [facility] Swab VAGINAL STRUCTURE / Unknown 06/08/2024 15:45 EDT 06/09/2024 19:46 EDT Provider Outr Resulting Lab MICROBIOLOGY - GENERAL ORDERABLES [facility] [address] [place] [address] documented in this encounter Visit Diagnoses Not on filedocumented in this encounter Additional Health Concerns Infection Onset Date Last Indicated Resolved Time 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 Care Teams Field Artillery Fire Control Man Relationship Specialty Start Date End Date Kaylynn Gimenez MD [facility] [place] [address] PCP - General 03/02/15 documented as of this encounter
--- OUTSIDE RECORDS SUMMARY | 2024-06-10 18:45 | XMS_ITS | Referral Summary ---
Author Organization [facility] Address [address] [place] [address] Care Team Providers Care Survey Crew Chief Name Role Phone Kaylynn Gimenez MD Primary Care Provider + [phone] Encounters Date Type Department Care Team Description 06/09/2024 Lab Requisition [facility] Pathology & Laboratory [facility] [address] [place] [address] Outr Resulting Lab, Provider 03/21/2024 Lab Requisition [facility] Pathology & Laboratory [facility] [address] [place] [address] Outr Resulting Lab, Provider from Last 3 Months Allergies Active Allergy Reactions Criticality Noted Date [...] Auto Replacement Hypothyroidism 11/27/2010 04/28/2014 Morbid obesity ([facility]) 11/27/201010/2011 Immunizations Name Administration Dates Next Due Influenza Vaccine Quad (AFLURIA) PF 0.5 ml IM (3 yrs+) 08/08/2014 Td 12/03/1999 Social History Tobacco Use Types Packs/Day Years [...] on file Sexual Orientation Not on file Last Filed Vital Signs Vital Sign Reading [...] Info) Description 12/29/2024 10:20 EST Office Visit [facility] Rheumatology & Immunology - [address] [address] Micaela Hoff MD [address] [place] [address], [address] [place] [phone] Procedures Procedure Name Priority Date/Time Associated Diagnosis [...] gonorrhoeae Result Negative Negative 06/10/2024 12:11 EDT [facility] Chlamydia trachomatis Result Negative Negative 06/10/2024 12:11 EDT [facility] Swab VAGINAL STRUCTURE / Unknown 06/08/2024 15:45 EDT 06/09/2024 19:46 EDT Provider Outr Resulting Lab MICROBIOLOGY - GENERAL ORDERABLES Performing Organization Address [facility] Co de Phone Number [facility] [address] [place], [place] [phone] * CCP ANTIBODIES (03/21/2024 9:04 EDT) Pathologist [facility] CCP Antibodies <2.5 <5.0 U/mL 03/22/2024 9:26 EDT [facility] Blood VENOUS BLOOD / Unknown 03/21/2024 9:04 EDT 03/21/2024 17:19 EDT Provider Outr Resulting Lab IMMUNOLOGY A ND SEROLOGY ORDERABLES Performing Organization Address [facility] de Phone Number [facility] [address] [place] [phone] * RHEUMATOID FACTOR (03/21/2024 9:04 EDT) Pathologist [facility] Rheumatoid Factor 10.5 <12.0 IU/mL 03/21/2024 17:39 EDT [facility] Blood VENOUS BLOOD / Unknown 03/21/2024 9:04 EDT 03/21/2024 17:19 EDT Provider Outr Resulting Lab CHEMISTRY & BLOOD GAS ORDERABLES Performing Organization Address [facility] Co de Phone Number [facility] [address] [place], [place] [phone] * (ABNORMAL) ANTI NUCLEAR AB (LIZZIE), IFA (03/21/2024 9:04 EDT) Pathologist [facility] LIZZIE Interpretation Positive(A) Negative 03/22/2024 14:31 EDT [facility] Comment: For titers greater [...] 1:320 Dense Fine Speckled 03/22/2024 14:31 EDT [facility] Blood VENOUS BLOOD / Unknown 03/21/2024 9:04 EDT 03/21/2024 17:19 EDT Narrative [facility] - 03/22/2024 14:31 EDT Results were obtained with the Z2 NOVA Lite HEp-2 LIZZIE Kit by indirect immunofluorescence. Provider Outr Resulting Lab IMMUNOLOGY A ND SEROLOGY ORDERABLES [facility] [address] [place] [address] * HEPATITIS C AB W REFLEX TO HCV RNA BY PCR (03/14/2022 10:10 EDT) Hep C Antibody Negative Negative 03/17/2022 10:18 EDT [facility] Blood VENOUS BLOOD / Unknown 03/14/2022 10:10 EDT 03/14/2022 17:17 EDT Provider Outr Resulting Lab CHEMISTRY & BLOOD GAS ORDERABLES [facility] [address] [place] [address] from Last 3 Months or Most Recently Relevant to Health Maintenance Additional Health Concerns Infection Onset Date Last Indicated 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 Advance Directives For more information, please contact: [phone] * Full Code (Latest Code Status on File) Date Activated Date Inactivated Comments 07/18/2014 22:50 07/20/2014 11:51 * Full Code Date Activated Date Inactivated Comments 07/18/2014 16:13 07/18/2014 22:50 * Full Code Date Activated Date Inactivated Comments 07/11/2014 13:00 07/11/2014 16:39 * Full Code Date Activated Date Inactivated Comments 06/29/2014 18:01 06/29/2014 20:14 Care Teams Survey Crew Chief Relationship Specialty Start Date End Date Kaylynn Gimenez MD [address] [place] [phone] PCP - General 03/02/15
--- OUTSIDE RECORDS SUMMARY | 2024-06-10 18:45 | XMS_ITS | Encounter Summary ---
Author Organization [facility] Address [address] [place] [address] Care Team Providers Care Strike Off Machine Operator Name Role Phone None, Provider Primary Care Provider Unavailabl e Reason for Visit * Reason Onset Date Comments Routine Visit 08/07/2014 Encounter Details Date Type Department Care Team (Late st Contact Info) Description 08/07/2014 Orders Only [facility] Women's Services - [address] [phone] Tasha Torres MD [address] [place] [address], [facility] [address] [place] [address] Need for immunization against influenza (Primary Dx) Social History Tobacco Use Types Packs/Day Years [...] Info) Description 12/29/2024 10:20 EST Office Visit [facility] Rheumatology & Immunology - [address] [phone] Micaela Hoff MD [address] [place] [address], [facility] [address] [place] [address] documented as of this encounter Visit Diagnoses Diagnosis Need for immunization against influenza- Primary Need for prophylactic vaccination and inoculation against influenza documented in this encounter Orders Immunization/Injection Count Last Ordered Date First Ordered Date INFLUENZA VACCINE =>3YO QUAD PRESERVATIVE FREE IM 1 08/07/2014 documented in this encounter Additional Health Concerns Infection Onset Date Last Indicated Resolved Time 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 Care Teams Strike Off Machine Operator Relationship Specialty Start Date End Date None, Provider PCP - General 06/09/14 03/01/15 documented as of this encounter
--- OUTSIDE RECORDS SUMMARY | 2024-06-10 18:45 | XMS_ITS | Encounter Summary ---
Author Organization [facility] Address [address] [place] [address] Care Team Providers Care Board Mill Supervisor Name Role Phone Kaylynn Jones MD Primary Care Provider + [phone] Encounter Details Date Type Department Care Team (Late st Contact Info) Description 09/10/2015 Results Only [facility] [phone] Roberto Zuleta MD [address] [place] [phone] Social History Tobacco Use Types Packs/Day Years [...] Info) Description 12/29/2024 10:20 EST Office Visit [facility] Rheumatology & Immunology - [address] [phone] Micaela Hoff MD [address] [facility], [address] [place] [phone] documented as of this encounter Procedures Procedure Name Priority Date/Time Associated Diagnosis Comments SURGICAL PATHOLOGY Routine 09/10/2015 10 :00 EST documented in this encounter Results * SURGICAL PATHOLOGY (09/10/2015 10:00 EST) Pathology Report: SURGICAL PATHOLOGY REPORT Reports generated via electronic interface contain original data; however they are lacking the format of the original report. Caution should be taken when reading/interpret ing unformatted reports. Name: ? TERI SMITH ? Accession #: ? [id number] ? : ? 1980 (Age: 35) ??F ? Collect Date: ? 09/10/2015 ? Location: ? [facility] ? Receive Date: ? 09/11/2015 ? Provider: ROBERTO ZULETA MD Copy to: KAYLYNN JONES MD ? Final Pathologic Diagnosis: SMALL INTESTINE, DUODENUM, BIOPSY: - Duodenal mucosa with no specific pathologic features. Document reviewed and electronically signed by: MAYANK NINO MD Report ??Date: 09/13/2015 14:07 By the signature above, the attending physician certifies that he/she has personally conducted a gross and/or microscopic examination of the described specimens and rendered or confirmed the above diagnosis. Specimen(s) Received: Bx duodenum Clinical History: Abdominal bloating, diarrhea, gastritis; R/O sprue Gross Description: ? Received in formalin labelled with proper patient identification (initials S, E) and duodenum are two pink- tissues (each 0.3 x 0.3 x 0.2 cm). Entirely submitted in 1. Massimo Santos 09/11/2015 10:58 AM End of Report [facility] 09/10/2015 10:0 0 EST 09/11/2015 10:00 EST Roberto Zuleta MD PATHOLOGY ORDERABLES [facility] [address] [place] [address] documented in this encounter Visit Diagnoses Not on filedocumented in this encounter Additional Health Concerns Infection Onset Date Last Indicated Resolved Time 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 Care Teams Board Mill Supervisor Relationship Specialty Start Date End Date Kaylynn Jones MD [facility] [place] [address] PCP - General 03/02/15 documented as of this encounter
--- OUTSIDE RECORDS SUMMARY | 2024-06-10 18:45 | XMS_ITS | Encounter Summary ---
Author Organization [facility] Address [address] [place] [address] Care Team Providers Care Medicare Compliance Auditor Name Role Phone Kaylynn Gimenez MD Primary Care Provider + [phone] Encounter Details Date Type Department Care Team (Late st Contact Info) Description 03/14/2022 Lab Requisition [facility] Pathology & Laboratory Medicine [address] [address] Outr Resulting Lab, Provider Social History Tobacco [...] Info) Description 12/29/2024 10:20 EST Office Visit [facility] Rheumatology & Immunology - [address] [phone] Micaela Hoff MD [address] [place] [address], [address] [place] [phone] documented as of this encounter Procedures Procedure Name Priority Date/Time Associated Diagnosis Comments HIV 1/2 ANTIGEN AND ANTIBODY, 4TH GENERATION Routine 03/14/2022 10:10 EDT documented in this encounter Results * HIV 1/2 ANTIGEN AND ANTIBODY, 4TH GENERATION (03/14/2022 10:10 EDT) HIV 1 and 2 Antibody/p24 Antigen, 4th Generation Negative Negative 03/17/2022 10:43 EDT [facility] Comment:If acute HIV-1 infec tion is suspected in a high risk patient, submit plasma specimen for HIV-1 RNA quantitation test. Blood VENOUS BLOOD / Unknown 03/14/2022 10:10 EDT 03/14/2022 17:17 EDT Narrative [facility] - 03/17/2022 10:43 EDT Fourth Generation assay performed on the Siemens Meeting To Youaur XPT. Provider Outr Resulting Lab IMMUNOLOGY A ND SEROLOGY ORDERABLES [facility] [address] [place] [address] documented in this encounter Visit Diagnoses Not on filedocumented in this encounter Additional Health Concerns Infection Onset Date Last Indicated Resolved Time 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 Care Teams Medicare Compliance Auditor Relationship Specialty Start Date End Date Kaylynn Gimenez MD [facility] [place] [phone] PCP - General 03/02/15 documented as of this encounter
--- OUTSIDE RECORDS SUMMARY | 2024-06-10 18:45 | XMS_ITS | Encounter Summary ---
Author Organization [facility] Address [address] [place] [address] Care Team Providers Care Hollow Handle Knife Assembler Name Role Phone Kaylynn Gimenez MD Primary Care Provider + [phone] Reason for Visit * Reason Comments Hypothyroidism * Referral (Routine) - Closed Specialty Diagnoses / Procedures Referred By Ehsan t Referred To Contact Endocrinology Diagnoses Hypothyroidism, unspecified Hypoglycemia, unspecified Anuja Cai, LEONELA [address] [place] [address] [facility] Endocrinology [address] [place] [address] Referral ID Status Reason Start Date Expiration Date Visits Re quested Visits Authorized [id number] Closed 1 1 Encounter Details Date Type Department Care Team (Latest Contact Info) Description 05/21/2021 16:00 EDT Telemedicine [facility] Endocrinology - [address] [phone] Susan Hensley MD [address] [place] [address] [address] [place] [address] Hypoglycemia (Primary Dx); 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 Date of Service: 05/21/2021 No chief complaint on file. HPI: This is a 41 y.o. female with h/o hashimotos, Chronic lymphocytic thyroiditis, ADHD, PTSD, coming to clinic referred by PCP for evaluation of hypoglycemia. Last seen in endocrine by dr Ireland in 2012. First seen in endocrine clinic 01/23/[address] Tawny Abrams , for goiter and hypothyroidism. Teri was diagnosed with hypothyroidism at that time and started on replacement therapy. Muñoz recently her LT4 has been adjusted by PCP. In December her TSH was0.13 and her FT4 was 1.73. her dose was decreased from 125mcg to 112mcg. She would like endocrine to manage her hypothyroidism, but the main thing she wanted a referral for was for episodes of low blood sugar She says her daughter has T1DM. And she says she has had symptoms for years of getting episodes of feeling very shaky, hungry, sweaty, dizzy and sometimes feeling like she may pass out. She says she can trigger it to happen when her meals get really spaced out. She has used her daughters glucometersometimes when it happens and has measured as low as 52 and says she has seen between 50-70s. In terms of other symptoms she notes Muscle spasms daily since 6 months ago, does note some night sweats,No urinary or bowel symptoms, Some GI issues does go to GI specialist, GERD, diarrhea and constipation, neg celiac labs. 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 Her first first child was stillborn due to incompetent cervix, then it was discovered she had a septum in uterus, then had a high risk in 2007, third [...] anomaly in 2003 Hysteroscopic Resection Past Surgical History: Procedure Laterality Date ??? ENDOMETRIAL BIOPSY ??? UPPER GASTROINTESTINAL ENDOSCOPY 09/03/2010 ??? WISDOM TOOTH EXTRACTION No Known Allergies There were no vitals taken for this visit. Physical Exam: Limited for televideo Gen: alert, [...] ALKPHOS 51 01/12/2012 TSH 0.98 08/08/2014 Assessment: 41 y.o. F with h/o hashimotos, Chronic lymphocytic thyroiditis, ADHD, PTSD, coming to clinic referred by PCP for evaluation of symptoms of intermittent hypoglycemia with symptoms as well as for management of hypothyroidism. Expanded ddx for hypoglycemia includes reactive hypoglycemia to carbohydrate meals or spacing of meals, adrenal deficiency, endogenous hyperinsulinism, insulinoma, beta cell disorders, insulin autoimmune hypoglycemia, antibody to insulin or receptor, insulin secretagogue, ormedication related. 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 Ordered as external to be sent to [facility]. -serum glucose -beta hydroxybutyrate -cortisol -insulin -c-peptide -pro-insulin Follow-up in 6 months but also pending labs. Patient was seen and examined with Dr Lillian Hensley Endocrinology Fellow PGY-4 Pager # [phone] Susan Hensley 05/21/2021 22:38 * Dominga Snyder DO - 05/21/2021 1600 EDT Endocrine Attending: This patient was seen and evaluated with the fellow and I agree with the assessment and plan. 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 Therapy completed 05/21/2021 VIT/IRON FUMARATE/FA ( ORAL) Take by mouth. Error 05/21/2021 documented as of this encounter Additional Health Concerns Infection Onset Date Last Indicated Resolved Time 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 Care Teams Hollow Handle Knife Assembler Relationship Specialty Start Date End Date Kaylynn Gimenez MD [address] [place] [phone] PCP - General 03/02/15 documented as of this encounter
--- OUTSIDE RECORDS SUMMARY | 2024-06-10 18:45 | XMS_ITS | Encounter Summary ---
Author Organization [facility] Address [address] [place] [address] Care Team Providers Care Photographic Equipment Technician Name Role Phone None, Provider Primary Care Provider Unavailabl e Reason for Visit * Reason Onset Date Comments Routine Visit 09/06/2014 Encounter Details Date Type Department Care Team (Late st Contact Info) Description 09/06/2014 Orders Only [facility] Obstetrics & Midwifery - [address] [phone] Linda Bustillos MD Supervision of other high-risk (V23.89) (Primary Dx) Social History Tobacco Use Types [...] Info) Description 12/29/2024 10:20 EST Office Visit [facility] Rheumatology & Immunology - [address] [phone] Micaela Hoff MD [address] [place] [address], [address] [place] [phone] documented as of this encounter Visit Diagnoses Diagnosis Supervision of other high-risk (V23.89)- Primary Supervision of other high-risk documented in this encounter Additional Health Concerns Infection Onset Date Last Indicated Resolved Time 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 Care Teams Photographic Equipment Technician Relationship Specialty Start Date End Date None, Provider PCP - General 06/09/14 03/01/15 documented as of this encounter
--- OUTSIDE RECORDS SUMMARY | 2024-06-10 18:45 | XMS_ITS | Encounter Summary ---
Author Organization [facility] Address [address] [place] [address] Care Team Providers Care Steel Construction Worker Name Role Phone Kaylynn Gimenez MD Primary Care Provider + [phone] Encounter Details Date Type Department Care Team (Late st Contact Info) Description 05/15/2022 Lab Requisition [facility] Pathology & Laboratory Medicine [address] [address] Outr Resulting Lab, Provider Social History Tobacco [...] 12/29/2024 10:20 EST Office Visit [facility] Rheumatology & Immunology - [address] [address] Micaela Hoff MD [address] [place] [address], [address] [place] [phone] documented as of this encounter Procedures Procedure Name Priority Date/Time Associated Diagnosis Comments ZZCOVID-19 TEST [facility] PCR Today 05/14/2022 13:30 EDT COVID-19 TESTING Routine 05/14/2022 13:3 0 EDT documented in this encounter Results * COVID-19 TEST [facility] PCR (05/14/2022 13:30 EDT) Swab 05/14/2022 13:3 0 EDT 05/15/2022 17:22 EDT Provider Outr Resulting Lab MICROBIOLOGY - GENERAL ORDERABLES [facility] [address] [place] [address] * COVID-19 TESTING (05/14/2022 13:30 EDT) COVID-19 rt-PCR Result Negative Negative 05/16/2022 14:[address] [facility] Comment: This test has not been FDA cleared or approved. This test has been authorized by FDA under an EUA for use by authorized laboratories. This test has been authorized only for detection of nucleic acid from 2019-nCoV, not for any other viruses or pathogens. This test is only authorized for the duration of the declaration that circumstances exist justifying the authorization of emergency use of in vitro diagnostic tests for detection and/or diagnosis of 2019-nCoV under section 564(b)(1) of Act, 21 U.S.C ?? 360bbb-3(b) (1), unless the authorization is terminated or revoked sooner. Negative results do not preclude 2019-nCoV infection and should not be used as the sole basis for treatment or other patient management decisions. Negative results must be combined with clinical observations, patient history, and epidemiological information. Performed on the [employer] instrument This is an appended report. ??These results have been appended to a previously preliminary verified report. Performing Lab [place] [facility] 05/16/2022 14:[address] [facility] Swab 05/14/2022 13:3 0 EDT 05/15/2022 17:22 EDT Provider Outr Resulting Lab MICROBIOLOGY - GENERAL ORDERABLES Performing Organization Address City/State/[facility] Co de Phone Number [facility] [address] [place] [address] documented in this encounter Visit Diagnoses Not on filedocumented in this encounter Additional Health Concerns Infection Onset Date Last Indicated Resolved Time 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 Care Teams Steel Construction Worker Relationship Specialty Start Date End Date Kaylynn Gimenez MD [facility] [place] [address] PCP - General 03/02/15 documented as of this encounter
--- OUTSIDE RECORDS SUMMARY | 2024-06-10 18:45 | XMS_ITS | Encounter Summary ---
Author Organization [facility] Address [address] [place] [address] Care Team Providers Care Loss Control Representative Name Role Phone None, Provider Primary Care Provider Unavailabl e Encounter Details Date Type Department Care Team (Late st Contact Info) Description 07/11/2014 Documentation Visit [facility] Obstetrics & Midwifery [address] [phone] Linda Bustillos MD Social History Tobacco Use Types Packs/Day Years [...] as of this encounter Progress Notes * Padmini Toure - 07/11/2014 0853 EDT Patient picked up her lab slip and kit today. Padmini Toure documented in this encounter Plan of Treatment Upcoming Encounters Date Type Department Care Team (Late st Contact Info) Description 12/29/2024 10:20 EST Office Visit [facility] Rheumatology & Immunology - [address] [phone] Micaela Hoff MD [address] [place] [address], [address] [place] [address] documented as of this encounter Visit Diagnoses Not on filedocumented in this encounter Additional Health Concerns Infection Onset Date Last Indicated Resolved Time 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 Care Teams Loss Control Representative Relationship Specialty Start Date End Date None, Provider PCP - General 06/09/14 03/01/15 documented as of this encounter
--- OUTSIDE RECORDS SUMMARY | 2024-06-10 18:46 | XMS_ITS | Encounter Summary ---
Author Organization [facility] Address [address] [place] [address] Care Team Providers Care Process Worker Name Role Phone Conor Angel MD Primary Care Provider [phone] Encounter Details Date Type Department Care Team (Latest Contact Info) Description 02/10/2014 11:49 EDT - 02/10/2014 23:59 EDT Hospital Encounter [facility] [address] [place] [address] Unknown, Provider, Discharge Disposition: Home or Self Care Social History Tobacco Use Types Packs/Day Years Used Date Smoking Tobacco: Every Day Cigarettes Smokeless Tobacco: Never Alcohol Use Standard Drinks/Week Comments Yes 16.7 (1 standard drink = 0.6 oz pure alcohol) Comments Yes Sex and Gender Information Value Date Recorded Sex Assigned at Not on file Gender Identity Not on file Sexual Orientation Not on file documented as of this encounter Medications at Time of Discharge Medication Sig Dispensed Refills Start Date End Date folic acid (FOLVITE) 1 mg tablet Take 3 Tabs by mouth daily. 100 Tab 0 02/06/2014 omeprazole (PRILOSEC) 40 mg capsuleIndications:Peptic ulcer disease Take 1 Cap by mouth daily. 90 Cap 4 03/02/2012 levothyroxine (SYNTHROID) 88 mcg tablet TAKE ONE TABLET BY MOUTH EVERY DAY 30 Tab 11 12/20/2011 04/26/2014 Multivitamin Vit-Iron Fumarate-FA ( PLUS) 27-1 mg tablet Take 1 Tab by mouth daily. 120 Tab 3 02/06/2014 04/28/2014 documented as of this encounter Discharge Disposition Disposition Code Departure Means Destination Home or Self Custodial documented in this encounter Plan of Treatment Upcoming Encounters Date Type Department Care Team ([facility] st Contact Info) Description 12/29/2024 10:[address] [facility] Rheumatology & Immunology - [address] [address] Micaela Hoff MD [address] [place] [address], [address] [place] [phone] documented as of this encounter Visit Diagnoses Not on filedocumented in this encounter Additional Health Concerns Infection Onset Date Last Indicated Resolved Time 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 Care Teams Process Worker Relationship Specialty Start Date End Date Conor Angel MD [address] [place] [address] PCP - General 02/07/14 06/08/14 documented as of this encounter
--- OUTSIDE RECORDS SUMMARY | 2024-06-10 18:46 | XMS_ITS | Encounter Summary ---
Author Organization [facility] Address [address] [place] [address] Care Team Providers Care Rescue Boat Operator Name Role Phone Conor Angel MD Primary Care Provider [phone] Reason for Visit * Reason Onset Date Comments Abdominal Cramping 02/10/2014 Encounter Details Date Type Department Care Team (Late st Contact Info) Description 02/10/2014 Telephone [facility] Women's Services - [facility] [address] [place] [address] Aura Bui, RN [address] [place] [address] Abdominal Cramping Social History Tobacco Use Types Packs/Day Years [...] Notes * Telephone Encounter - Aura Bui, RN - 02/10/2014 0934 EDT Teri had a positive UPT on 02/06, and is 4+7 EGA by LMP.. She called today with right sided crampingand spotting. She has chronic shoulder pain so cannot tell if there is any difference from the norm. Pt has agreed to come to the clinic after having STAT HCG and CBC drawn.per Dr. Rogers. documented in this encounter Plan of Treatment Upcoming Encounters Date Type Department Care Team (Late st Contact Info) Description 12/29/2024 10:20 EST Office Visit [facility] Rheumatology & Immunology - [facility] [address] [place], [place] [phone] Micaela Hoff MD [address] [facility], [address] [place] [address] documented as of this encounter Results * HEMAGRAM (02/10/2014 12:09 EDT) Pathologist [facility] WBC 7.52 4.0 - 12.4 K/cmm [facility] RBC 4.63 3.86 - 5.04 M/cmm [facility] Hemoglobin 14.0 11.6 - 15.2 gm/dl [facility] HCT 40.2 34.9 - 44.4 % [facility] MCV 87 81 - 98 fl [facility] MCH 30.3 26.7 - 33.3 pg [facility] MCHC 34.8 32.1 - 35.9 gm/dl [facility] PLT 250 141 - 320 K/cmm [facility] RDW-CV 12.9 11.7 - 14.6 % [facility] Blood specimen (specimen) 02/10/2014 12:09 EDT 02/10/2014 12:18 EDT Sarah Rogers MD HEMATOLOGY & PF4 OR DERABLES [facility] [address] [place] [address] * (ABNORMAL) HCG FOR (02/10/2014 12:09 EDT) Pathologist [facility] Quant Beta HCG, Preg 6(H) <5 mIU/ml [facility] Comment: Reference Range: Negative = <5 Indeterminate = 5-25 recommend repeat in 48 hours. Positive = >25 Blood specimen (specimen) 02/10/2014 12:09 EDT 02/10/2014 12:18 EDT Sarah Rogers MD CHEMISTRY & BLOOD G ORDERABLES [facility] [address] [place] [address] documented in this encounter Visit Diagnoses Diagnosis with other poor obstetric history(V23.49)- Primary with other poor obstetric history documented in this encounter Additional Health Concerns Infection Onset Date Last Indicated Resolved Time 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 Care Teams Rescue Boat Operator Relationship Specialty Start Date End Date Conor Angel MD [address] [place] [address] PCP - General 02/07/14 06/08/14 documented as of this encounter
--- OUTSIDE RECORDS SUMMARY | 2024-06-10 18:46 | XMS_ITS | Encounter Summary ---
Author Organization [facility] Address [address] [place] [address] Care Team Providers Care Payable Representative Name Role Phone Ladonna Maurer Primary Care Provider Reason for Referral * Consult (Routine/Next Available) - Closed Specialty Diagnoses / Procedures Referred By Contact Referred To Contact Gastroenterology and Hepatology Diagnoses Irritable bowel syndrome (IBS) Drew Grijalva MD [address] [place], [place] [address]ey [facility] [address] [place] [phone] [facility] [address] [place] [address] Referral ID Status Reason Start Date Expiration Date V isits Requested Visits Authorized [id number] Closed Specialty Services Required 11/16/2012 1 1 Question Answer Reason for Request: multiple bowel issues - not thyroid related Reason for Visit * Reason Comments Hypothyroidism Encounter Details Date Type Department Care Team (Latest Contact Info) Description 11/16/2012 9:00 EST Office Visit [facility] Endocrinology - [facility] [address] [place] [address] Drew Grijalva MD [address] [facility] [address] [place] [address] Unspecified hypothyroidism (Primary Dx); Mena's thyroiditis; Irritable bowel syndrome (IBS) Social History Tobacco Use Types Packs/Day Years [...] Sign Reading Time Taken Comments Blood Pressure 110/72 11/16/2012 0847 EST Pulse 56 11/16/2012 0847 EST Temperature - - Respiratory Rate - - Oxygen Saturation - - Inhaled Oxygen Concentration - - Weight 70.9 kg (156 lb 4.8 oz) 11/16/[address] Height 167.6 cm (5' 6) 11/16/2012 0847 EST Body Mass Index 25.23 11/16/2012 0847 EST documented in this encounter Progress Notes * Drew Grijalva MD - 11/16/2012 0916 EST Endocrinology Thyroid Follow-Up Evaluation CHIEF COMPLAINT: Chief Complaint Patient presents with ??? Hypothyroidism HPI: Teri Haro is a 32 y.o. female who presents for follow-up of: 1. Unspecified hypothyroidism 2. Chronic lymphocytic thyroiditis She is having a lot of difficulty with GI complaints of bloating and some abdominal pain. She was seen originally for some upper GI distress. Now seems to have a lot of GI issues, which I do not think are related to her hypothyroidism. But since she missed the GI appointment, another one had to be scheduled, which I have taken the liberty of doing. First seen in endocrine clinic 01/23/[address] Tawny Abrams , for goiter and hypothyroidism. Teri was diagnosed with hypothyroidism at that time and started on replacement therapy, first at 25 mcg per day then increased to 50 mcg and then to 50 plus 1/2 of a 25 mcg pill. With each dose increment she had some improvement in symptoms but not sustained. Currently on 88 mcg of Levothyroxine Past labs Results for TERI HARO ( ) as of 11/16/2012 09:21 Ref. 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 Nonsmoker. Other notable PMH - Hypothyroidism, obesity, obstructive sleep apnea, Mena's thyroiditis and goiter. Original U/S - right lobe 4.3X1.3x1.5, left 3.1x1.3x1.5 - tiny nodules - one on each side <6mm And had RAIU and scan - 28% uptake in heterogeneous gland 12/2010 U/S - The right lobe of the thyroid gland has a heterogenous echotexture with areas of scarring and a somewhat lobulated texture. Isthmus is 0.28 cm, transverse dimensions are 1.29 x 1.66 and sagittal 3.75 x 1.19. The left lobe has a similar heterogenous echotexture with 0.29 cm isthmus, 1.26 x 1.64 dimension, sagittal view 3.44 x 1.13. No microcalcifications, increase in blood flow, nodules or cysts. Seen again and was taking too much replacement - on 125 instead of 100 mcg/day Thyroid Problem Presents for follow-up visit. Symptoms include cold intolerance, constipation, diaphoresis, diarrhea, fatigue, hair loss, heat intolerance and irritability.Patient reports no hoarse voice, leg swelling, palpitations, tremors, weight loss, cough, trouble swallowing, decreased appetite, excessive appetite, somnolence, kervin-orbital edema or facial swelling. (GI issues are making her very symptomatic irreg menses - on and off BCP Lost 7# since last yr ) The symptoms have been worsening. PAST SOCIAL HISTORY History Social History ??? Marital Status: Single Spouse Name: N/A Number of Children: N/A ??? Years of Education: N/A Social History Main Topics ??? Smoking status: Current Everyday Smoker -- 1.0 packs/day ??? Smokeless tobacco: Never Used ??? Alcohol Use: 10.0 oz/week 2 Glasses of wine per week ??? Drug Use: No ??? Sexually Active: Yes -- Male partner(s) Boyfriend is s/p vasectomy Other Topics Concern ??? Not on file Social History Narrative ??? No narrative on file MEDICATIONS Teri has a current medication list which includes the following prescription(s): omeprazole and levothyroxine. ALLERGIES Review of patient's allergies indicates no known allergies. REVIEW OF SYSTEMS: Review of Systems Constitutional: Positive for malaise/fatigue, diaphoresis and fatigue. Negative for weight loss anddecreased appetite. HENT: Negative for hoarse voice, facial swelling and trouble swallowing. Respiratory: Negative for cough. Cardiovascular: Negative for palpitations. Gastrointestinal: Positive for abdominal pain, diarrhea and constipation. Negative for excessive appetite. Neurological: Negative for tremors. Endo/Heme/Allergies: Positive for cold intolerance and heat intolerance. OBJECTIVE: Vitals: BP 110/72 Pulse 56 Ht 167.6 cm (66) Wt 70.897 kg (156 lb 4.8 oz) BMI 25.23 kg/m2 BMI: Body mass index is 25.23 kg/(m^2). General: alert, cooperative, no distress Eyes: no lid lag, periorbital edema, stare, proptosis or exophthalamus. EOM full. Neck: supple, symmetrical, trachea midline, no thyroidectomy scar, abnormal thyroid: non-palpable and no carotid bruit Pulses: 2+ and symmetric Skin: smooth, warm and dry Neuro: reflexes normal with no hung-up relaxation phase no tremors LAB REVIEW: Lab Results Component Value Date TSH 0.46 01/14/2012 No results found for this basename: [id number] No components found with this basename: FREET3 No results found for this basename: [id number] Lab Results Component Value Date FREET4 1.8 11/18/2011 Lab Results Component Value Date THGAB 46 11/18/2011 Lab Results Component Value Date THYROIDAB 296* 11/18/2011 ASSESSMENT: 1. Unspecified hypothyroidism 2. Mena's thyroiditis 3. Irritable bowel syndrome (IBS) I am going to assess her thyroid function in the lab. If no changes are necessary, I will see her in one year for reevaluation. This diagnosis was discussed and reviewed with the patient including the normal and pathophysiologyof the pituitary thyroidal axis and advantages of drug therapy, radioactive iodine, surgery, thyroid replacement/suppressive therapy and further testing as needed. The possibilities of there being a cancer in the thyroid gland were discussed as well PLAN: Labs: TSH and free thyroxine Medications: Levothyroxine 88 The risks and benefits of my recommendations, as well as other treatment options were discussed with the patient today. Questions were answered. Drew Grijalva MD 11/16/2012 12:50 documented in this encounter Plan of Treatment Upcoming Encounters Date Type Department Care Team (Late st Contact Info) Description 12/29/2024 10:20 EST Office Visit [facility] Rheumatology & Immunology - [address] [address] Micaela Hoff MD [address] [facility], [address] [place] [address] Scheduled Referrals Name Type Priority Associated Diagnoses Order Schedule AMB CONSULT GASTROENTEROLOGY Outpatient Referral Routine Irritable bowel syndrome (IBS) Ordered: 11/16/2012 documented as of this encounter Results * TSH (11/16/2012 9:32 EST) TSH 1.00 0.35 - 5.00 uIU/ml [facility] Blood specimen (specimen) 11/16/2012 9:32 EST 11/16/2012 15:54 EST Drew Grijalva MD CHEMISTRY & BLOOD GAS ORDERABLES [facility] [address] [place] [address] * T4 FREE (11/16/2012 9:32 EST) Free T4 1.5 0.8 - 1.8 ng/dL [facility] Blood specimen (specimen) 11/16/2012 9:32 EST 11/16/2012 15:54 EST Drew Grijalva MD CHEMISTRY & BLOOD GAS ORDERABLES [facility] [address] [place] [address] documented in this encounter Visit Diagnoses Diagnosis Unspecified hypothyroidism- Primary Mena's thyroiditis Chronic lymphocytic thyroiditis Irritable bowel syndrome (IBS) Irritable bowel syndrome documented in this encounter Additional Health Concerns Infection Onset Date Last Indicated Resolved Time 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 Care Teams Payable Representative Relationship Specialty Start Date End Date Ladonna Maurer PA [address] [place] [id number] PCP - General 05/12/12 01/24/13 documented as of this encounter
--- OUTSIDE RECORDS SUMMARY | 2024-06-10 18:46 | XMS_ITS | Encounter Summary ---
Author Organization [facility] Address [address] [place] [address] Care Team Providers Care Application Operations Engineer Name Role Phone Conor Angel MD Primary Care Provider [phone] Encounter Details Date Type Department Care Team (Late st Contact Info) Description 04/26/2014 Phlebotomy Only [address] [address] Athletic Instructor, Outpatient Supervision of other normal ; Hypothyroidism, maternal, antepartum Social History Tobacco Use Types Packs/Day Years [...] Description 12/29/2024 10:20 EST Office Visit [facility] Rheumatology & Immunology - [address] [address] Micaela Hoff MD [address] [place] [address], [facility] [address] [place] [phone] documented as of this encounter Procedures Procedure Name Priority Date/Time Associated Diagnosis Comments BACTERIAL CULTURE, URINE Routine 04/26/2014 16:16 EDT Supervision of other normal BB STUDY Routine 04/26/2014 16: 15 EDT Supervision of other normal PROFILE Routine 04/26/2014 16:1 5 EDT Supervision of other normal THYROID CASCADE Routine 04/26/2014 16:15 EDT Hypothyroidism, maternal, antepartum SYPHILIS SEROLOGY Routine 04/26/2014 16: 15 EDT Supervision of other normal HEPATITIS C AB W REFLEX TO HCV RNA BY PCR Routine 04/26/2014 16:15 EDT Supervision of other normal DIFFERENTIAL Routine 04/26/2014 16:15 EDT Supervision of other normal RUBELLA IGG ANTIBODY Routine 04/26/2014 16:15 EDT Supervision of other normal HEPATITIS B SURFACE ANTIGEN Routine 04/26/2014 16:15 EDT Supervision of other normal COMPLETE BLOOD COUNT Routine 04/26/2014 16:15 EDT Supervision of other normal HIV 1/2 ANTIGEN AND ANTIBODY, 4TH GENERATION Routine 04/26/2014 16:15 EDT Supervision of other normal documented in this encounter Results * BACTERIAL CULTURE, URINE (04/26/2014 16:16 EDT) Specimen Description Urine [facility] Result Less than 10,000 CFU/ml Usual urogenital marquita. [facility] Report Status 04/28/2014 Final [facility] Urine specimen (specimen) URINE / Unknown 04/26/2014 16:16 EDT 04/26/2014 16:46 EDT Rehan Abarca MD MICROBIOLOGY - GENER AL ORDERABLES [facility] [address] [place] [address] * SYPHILIS SEROLOGY (04/26/2014 16:15 EDT) Syphilis Serology Interpretation: Nonreactive [facility] Comment:Reference Range: Non reactive 04/26/2014 16:1 5 EDT 04/26/2014 16:34 EDT Rehan Abarca MD IMMUNOLOGY AND SEROL OGY ORDERABLES Performing Organization Address [facility] de Phone Number [facility] [address] [place] [address] * HEPATITIS B SURFACE ANTIGEN (04/26/2014 16:15 EDT) Hepatitis B Surface Ag Negative [facility] Comment:Reference Range: Neg ative 04/26/2014 16:1 5 EDT 04/26/2014 16:34 EDT Rehan Abarca MD CHEMISTRY & BLOOD GA S ORDERABLES Performing Organization Address [facility] Phone Number [facility] [address] [place] [address] * RUBELLA IGG ANTIBODY (04/26/2014 16:15 EDT) Rubella IgG Ab Positive [facility] Comment: Positive results suggest immunity to Rubella infection. 04/26/2014 16:1 5 EDT 04/26/2014 16:34 EDT Rehan Abarca MD CHEMISTRY & BLOOD GA S ORDERABLES Performing Organization Address [facility] de Phone Number [facility] [address] [place] [address] * BB STUDY (04/26/2014 16:15 EDT) ABO and Rh Type A POS [facility] Antibody Screen Neg [facility] 04/26/2014 16:1 5 EDT 04/26/2014 16:34 EDT Rehan Abarca MD BLOOD BANK TESTS Performing Organization Address [facility] de Phone Number [facility] [address] [place] [address] * DIFFERENTIAL (04/26/2014 16:15 EDT) % Neutrophils 62.3 45.5 - 79.7 % [facility] % Lymphocytes 29.0 15.0 - 46.8 % [facility] % Monocytes 7.1 1.8 - 12.0 % [facility] % Eosinophils 1.1 0.6 - 6.9 % [facility] % Basophils 0.5 0.2 - 1.4 % [facility] ABS Neutrophils 4.88 2.20 - 8.85 K/cmm [facility] ABS Lymphs 2.27 1.09 - 3.30 K/cmm [facility] ABS Monocytes 0.56 0.1 - 0.8 K/cmm [facility] ABS Eosinophils 0.08 0.03 - 0.61 K/cmm [facility] ABS Basophils 0.04 0.01 - 0.11 K/cmm [facility] Type of Diff: Automated [facility] 04/26/2014 16:1 5 EDT 04/26/2014 16:34 EDT Rehan Abarca MD HEMATOLOGY & PF4 ORD ERABLES [facility] [address] [place] [address] * HEMAGRAM (04/26/2014 16:15 EDT) WBC 7.83 4.0 - 12.4 K/cmm [facility] RBC 4.29 3.86 - 5.04 M/cmm [facility] Hemoglobin 13.1 11.6 - 15.2 gm/dl [facility] HCT 37.4 34.9 - 44.4 % [facility] MCV 87 81 - 98 fl [facility] MCH 30.6 26.7 - 33.3 pg [facility] MCHC 35.1 32.1 - 35.9 gm/dl [facility] PLT 227 141 - 320 K/cmm [facility] RDW-CV 12.2 11.7 - 14.6 % [facility] 04/26/2014 16:1 5 EDT 04/26/2014 16:34 EDT Rehan Abarca MD HEMATOLOGY & PF4 ORD ERABLES Performing Organization Address [facility] de Phone Number [facility] [address] [place] [address] * HEPATITIS C ANTIBODY (04/26/2014 16:15 EDT) Hepatitis C Ab Negative [facility] Comment:Reference Range: Neg ative Blood specimen (specimen) 04/26/2014 16:15 EDT 04/26/2014 16:34 EDT Rehan Abarca MD CHEMISTRY & BLOOD GA S ORDERABLES Performing Organization Address [facility] Phone Number [place] [address] * THYROID CASCADE (04/26/2014 16:15 EDT) TSH 2.39 0.35 - 5.00 uIU/ml [facility] Comment: TSH cascade is not recommended for patients in which pituitary or hypothalamic disorders are suspected. Blood specimen (specimen) 04/26/2014 16:15 EDT 04/26/2014 16:34 EDT Rehan Abarca MD CHEMISTRY & BLOOD GA S ORDERABLES Performing Organization Address [facility] Phone Number [facility] [address] [place] [address] * HIV 1/2 ANTIBODY (04/26/2014 16:15 EDT) HIV 1/2 Antibody Negative [facility] Comment: If acute HIV-1 infection is suspected in a high risk patient, submit plasma specimen for HIV-1 RNA quantification test. Reference Range: ??Negative Assayed utilizing [employer] chemiluminescent technology. Blood specimen (specimen) 04/26/2014 16:15 EDT 04/26/2014 16:34 EDT Rehan Abarca MD IMMUNOLOGY AND FRANCIS WEEMS ORDERABLES [facility] [address] [place] [address] documented in this encounter Visit Diagnoses Diagnosis Supervision of other normal Hypothyroidism, maternal, antepartum Thyroid dysfunction, antepartum documented in this encounter Additional Health Concerns Infection Onset Date Last Indicated Resolved Time 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 Care Teams Application Operations Engineer Relationship Specialty Start Date End Date Conor Angel MD [address] [place] [phone] PCP - General 02/07/14 06/08/14 documented as of this encounter
--- OUTSIDE RECORDS SUMMARY | 2024-06-10 18:46 | XMS_ITS | Encounter Summary ---
Author Organization [facility] Address [address] [place] [address] Care Team Providers Care Air And Water Filler Name Role Phone Conor Angel MD Primary Care Provider [phone] Reason for Visit * Reason Comments Pelvic Pain RLQ pain, spotting 4 +6 EGA by LMP. Encounter Details Date Type Department Care Team (Late st Contact Info) Description 02/10/2014 15:30 EDT Office Visit [facility] - [address] [phone] Sarah Rogers MD [address] [place] [address], [address] [place] [address] of unknown anatomic location (Primary Dx); Unspecified disorder of menstruation and other abnormal bleeding from female genital tract Social History Tobacco Use Types Packs/Day Years [...] Sign Reading Time Taken Comments Blood Pressure 118/70 02/10/2014 1234 EDT Pulse - - Temperature - - Respiratory Rate - - Oxygen Saturation - - Inhaled Oxygen Concentration - - Weight 76.2 kg (168 lb) 02/10/2014 1229 EDT Height 170.2 cm (5' 7) 02/10/2014 1229 EDT Body Mass Index 26.31 02/10/2014 1229 EDT documented in this encounter Progress Notes * Sarah Rogers MD - 02/10/2014 1435 EDT Patient was self referred today for pain bleeding for several days and positive home test. She had a beta hCG of 6 and has had an ultrasound which showed blood clots in the uterus a paratubal cyst but no adnexal masses on either side. Her blood type is A+. Exam shows abdomen soft nontender no rebound. patient is having a dark brownish bleeding from the cervix. Vulva vagina appears normal, there is no cervical motion tenderness. the uterus and bilateraladnexa are mildly tender as would be expected. Discussed these findings with patient and her partner at length. I recommend that she stay on her vitamin and that she get another beta hCG done next week just to make sure that it goes downto 0. I discussed with her that this was likely on an early miscarriage likely from her uterus however onpregnancy of unknown location is a more appropriate diagnosis given the very low beta we could not say for sure where the had been. However right now she looks like a completed or completing spontaneous very early miscarriage. Warnings given for things look for and followup. If her condition worsens she should call us back or seek emergency care closer to home. She can followup at our institution closer to her home or withus if she wishes. She should follow up if her bleeding does not stop in a few days or if her beta hCG doesn't go to zero next week. Patient also mentioned that she had an irregularly irregular is frustrated by this. I also offered that she could be seen with us for her irregular menses if she wished. According to patient, She hasnot been worked up for PCOS Or other causes for her irregular cycles. Total time spent face to face counseling 30 minutes re above issues documented in this encounter Plan of Treatment Upcoming Encounters Date Type Department Care Team (Late st Contact Info) Description 12/29/2024 10:20 EST Office Visit [facility] Rheumatology & Immunology - [address] [address] Micaela Hoff MD [address] [place] [address], [address] [place] [phone] documented as of this encounter Visit Diagnoses Diagnosis of unknown anatomic location- Primary state, incidental Unspecified disorder of menstruation and other abnormal bleeding from female genital tract documented in this encounter Additional Health Concerns Infection Onset Date Last Indicated Resolved Time 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 Care Teams Air And Water Filler Relationship Specialty Start Date End Date Conor Angel MD [address] [place] [address] PCP - General 02/07/14 06/08/14 documented as of this encounter
--- OUTSIDE RECORDS SUMMARY | 2024-06-10 18:46 | XMS_ITS | Encounter Summary ---
Author Organization [facility] Address [address] [place] [address] Care Team Providers Care Catalyst Unit Operator Name Role Phone Unknown, Provider Primary Care Provider Reason for Visit * Reason Onset Date Comments Release of Information 03/09/2012 TRANSFER OF CARE TO [facility] Encounter Details Date Type Department Care Team (Late Contact Info) Description 03/09/[address] [address] Unknown, Provider, Release of Information (TRANSFER OF CARE TO [facility]) Social History Tobacco Use Types Packs/Day Years Used Date Smoking Tobacco: Every Day Cigarettes Smokeless Tobacco: Never Alcohol Use Standard Drinks/Week Comments Yes 16.7 (1 standard drink = 0.6 oz pure alcohol) rare Sex and Gender Information Value Date Recorded Sex Assigned at Not on file Gender Identity Not on file Sexual Orientation Not on file documented as of this encounter Miscellaneous Notes * Telephone Encounter - Stephany Franklin - 03/09/2012 1121 EDT At the request of pt all her records have been transferred to [facility] This was done on 03/05/2012 documented in this encounter Plan of Treatment Upcoming Encounters Date Type Department Care Team (Late Contact Info) Description 12/29/2024 10:20 EST Office Visit [facility] Rheumatology & Immunology - [facility] [address] [place] [address] Micaela Hoff MD [address] [facility], [address] [place] [phone] documented as of this encounter Visit Diagnoses Not on filedocumented in this encounter Additional Health Concerns Infection Onset Date Last Indicated Resolved Time 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 Care Teams Catalyst Unit Operator Relationship Specialty Start Date End Date Unknown, Provider, PCP - General 03/09/12 05/11/12 documented as of this encounter
--- OUTSIDE RECORDS SUMMARY | 2024-06-10 18:46 | XMS_ITS | Encounter Summary ---
Author Organization [facility] Address [address] [place] [address] Care Team Providers Care Apparel Trimmings Sales Representative Name Role Phone Cara Arteaga MD Primary Care Provider Reason for Visit * Reason Onset Date Comments 02/06/2014 LMP 3-8-14 Encounter Details Date Type Department Care Team (Late st Contact Info) Description 02/06/2014 Telephone [facility] Obstetrics & Midwifery - [facility] [address] [place], [place] [phone] Duyen Haro, RN (LMP 3-8-14) Social History Tobacco Use Types Packs/Day Years [...] Dispensed Refills Start Date End Da te folic acid (FOLVITE) 1 mg tablet Take 3 Tabs by mouth daily. 100 Tab 0 02/06/2014 Multivitamin Vit-Iron Fumarate-FA ( PLUS) 27-1 mg tablet Take 1 Tab by mouth daily. 120 Tab 3 02/06/2014 04/28/2014 documented in this encounter Miscellaneous Notes * Telephone Encounter - Duyen Haro RN - 02/06/2014 1151 EDT Phone call from rosa Williamson. Was [facility] patient in [phone]. Delivered full- term daughter afterseptum repair, was supplemented by progesterone suppositories from what she says. Newly with LMP of 3-8-14. vitamins and extra folic acid e-scribed to local pharmacy. Order placed for dating/viability scan same day. documented in this encounter Plan of Treatment Upcoming Encounters Date Type Department Care Team (Late st Contact Info) Description 12/29/2024 10:20 EST Office Visit [facility] Rheumatology & Immunology - [address] [address] Micaela Hoff MD [address] [facility], [address] [place] [phone] documented as of this encounter Visit Diagnoses Diagnosis Absence of menstruation- Primary documented in this encounter Additional Health Concerns Infection Onset Date Last Indicated Resolved Time 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 Care Teams Apparel Trimmings Sales Representative Relationship Specialty Start Date End Date Cara Arteaga MD [address] [place] [phone] PCP - General 01/25/13 02/06/14 documented as of this encounter
--- OUTSIDE RECORDS SUMMARY | 2024-06-10 18:46 | XMS_ITS | Encounter Summary ---
Author Organization [facility] Address [address] [place] [address] Care Team Providers Care Printed Circuit Board Panels Plater Name Role Phone None, Provider Primary Care Provider Unavailabl e Reason for Visit * Reason Onset Date Comments Vaginal Bleeding 06/16/2014 Encounter Details Date Type Department Care Team (Late st Contact Info) Description 06/16/2014 Telephone [facility] Obstetrics & Midwifery - [facility] [address] [place], [place] [phone] Chrissie Lai RN Vaginal Bleeding Social History Tobacco Use Types Packs/Day Years [...] encounter Miscellaneous Notes * Telephone Encounter - Chrissie Lai - 06/16/2014 2132 EDT Pt called to report she had brown discharge this morning in the shower. States she has had crampingoff and on the past few days. Denies bright red bleeding or clots. Reports intercourse two days ago. Cramping is decreased with rest. Reassured patient brown discharge is old bleeding. Instructed patient to rest today. Instructed patient to abstain from intercourse until next [facility] appointment. Reviewed when to call , bright red bleeding, cramping that continues, clots, vaginal pressure. Pt verbalized understanding. Reports she will be seeing OB in [place] soon to begin shared care. documented in this encounter Plan of Treatment Upcoming Encounters Date Type Department Care Team (Late st Contact Info) Description 12/29/2024 10:20 EST Office Visit [facility] Rheumatology & Immunology - [address] [phone] Micaela Hoff MD [address] [place] [address], [address] [place] [address] documented as of this encounter Visit Diagnoses Not on filedocumented in this encounter Additional Health Concerns Infection Onset Date Last Indicated Resolved Time 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 Care Teams Printed Circuit Board Panels Plater Relationship Specialty Start Date End Date None, Provider PCP - General 06/09/14 03/01/15 documented as of this encounter
--- OUTSIDE RECORDS SUMMARY | 2024-06-10 18:46 | XMS_ITS | Encounter Summary ---
Author Organization [facility] Address [address] [place] [address] Care Team Providers Care Business Analyst Consultant Name Role Phone Cara Arteaga MD Primary Care Provider Encounter Details Date Type Department Care Team (Late st Contact Info) Description 11/18/2013 Results Only [facility] Laboratory Services - [facility] [address] [place] [phone] Roberto Zuleta MD [address] [place] [address] [place] [phone] Social History Tobacco Use Types Packs/Day Years [...] Info) Description 12/29/2024 10:20 EST Office Visit [facility] Rheumatology & Immunology - [facility] [address] [place], [place] [phone] Micaela Hoff MD [address] [facility], [address] [place] [phone] documented as of this encounter Procedures Procedure Name Priority Date/Time Associated Diagnosis Comments SURGICAL PATHOLOGY Routine 11/18/2013 7:12 EST documented in this encounter Results * SURGICAL PATHOLOGY (11/18/2013 7:12 EST) Pathology Report: SURGICAL PATHOLOGY REPORT Reports generated via electronic interface contain original data; however they are lacking the format of the original report. Caution should be taken when reading/interpreti ng unformatted reports. Name: ? TERI CROWE ? Accession #: ? [id number] ? : ? 1980 (Age: 33) ??F ? Collect Date: ? 11/18/2013 ? Location: ? [facility] ? Receive Date: ? 11/19/2013 ? Provider: ROBERTO ZULETA MD Copy to: CYRUS PHAN MD ? Final Pathologic Diagnosis: A. COLON CECUM, BIOPSY: - ??Colonic mucosa with no specific diagnostic alteration. B. COLON, RANDOM, BIOPSY: - ??Colonic mucosa with no specific diagnostic alteration. Document reviewed and electronically signed by: MARI ALEJANDRO MD Report ??Date: 11/22/2013 09:58 By the signature above, the attending physician certifies that he/she has personally conducted a gross and/or microscopic examination of the described specimens and rendered or confirmed the above diagnosis. Specimen(s) Received: A. ??Bx cecum B. ??Bx random colon Clinical History: Bloating, diarrhea; normal Gross Description: A. ?Received in formalin labelled with proper patient identification (initials H, E) and cecum are three pink- tissue fragments (0.2 x 0.2 x 0.2 cm to 0.2 x 0.1 x 0.1 cm). Entirely submitted in A1. B. ?Received in formalin labelled with proper patient identification (initials H, E) and random colon bx are three pink- tissue fragments (0.3 x 0.2 x 0.2 cm to 0.2 x 0.1 x 0.1 cm). Entirely submitted in B1. Dr. Cosme 11/19/2013 12:30 PM End of Report [facility] 11/18/2013 7:12 EST 11/19/2013 7:12 EST Roberto Zuleta MD PATHOLOGY ORDERABLES Performing Organization Address City/State/[facility] Co de Phone Number [facility] [address] [place] [address] documented in this encounter Visit Diagnoses Not on filedocumented in this encounter Additional Health Concerns Infection Onset Date Last Indicated Resolved Time 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 Care Teams Business Analyst Consultant Relationship Specialty Start Date End Date Cara Arteaga MD [address] [place] [phone] PCP - General 01/25/13 02/06/14 documented as of this encounter
--- OUTSIDE RECORDS SUMMARY | 2024-06-10 18:46 | XMS_ITS | Encounter Summary ---
Author Organization [facility] Address [address] [place] [address] Care Team Providers Care Slag Skimmer Name Role Phone Conor Angel MD Primary Care Provider [phone] Encounter Details Date Type Department Care Team (Late st Contact Info) Description 04/25/2014 Orders Only [facility] Women's Services - [address] [phone] Christiane Elizabeth RN Unspecified complication of , antepartum (Primary Dx); Hypothyroidism, maternal, antepartum; Supervision of other normal Social History Tobacco Use Types Packs/Day Years [...] Info) Description 12/29/2024 10:20 EST Office Visit [facility] Rheumatology & Immunology - [address] [phone] Micaela Hoff MD [address] [place] [address], [address] [place] [phone] documented as of this encounter Results * BACTERIAL CULTURE, URINE (04/26/2014 16:16 EDT) Specimen Description Urine [facility] Result Less than 10,000 CFU/ml Usual urogenital marquita. [facility] Report Status 04/28/[address] [facility] Urine specimen (specimen) URINE / Unknown 04/26/2014 16:16 EDT 04/26/2014 16:46 EDT Rehan Abarca MD MICROBIOLOGY - GENER AL ORDERABLES Performing Organization Address [facility] Co de Phone Number [facility] [address] [place] [address] * THYROID CASCADE (04/26/2014 16:15 EDT) [facility] TSH 2.39 0.35 - 5.00 uIU/ml [facility] Comment: TSH cascade is not recommended for patients in which pituitary or hypothalamic disorders are suspected. Blood specimen (specimen) 04/26/2014 16:15 EDT 04/26/2014 16:34 EDT Rehan Abarca MD CHEMISTRY & BLOOD GA S ORDERABLES Performing Organization Address [facility] de Phone Number [facility] [address] [place] [address] * HIV 1/2 ANTIBODY (04/26/2014 16:15 EDT) [facility] HIV 1/2 Antibody Negative [facility] Comment: If acute HIV-1 infection is suspected in a high risk patient, submit plasma specimen for HIV-1 RNA quantification test. Reference Range: ??Negative Assayed utilizing [employer] chemiluminescent technology. Blood specimen (specimen) 04/26/2014 16:15 EDT 04/26/2014 16:34 EDT Rehan Abarca MD IMMUNOLOGY AND SEROL OGY ORDERABLES Performing Organization Address [facility] Co de Phone Number [facility] [address] [place] [address] * CHLAMYDIA/GC AMPLIFIED, THIN PREP (04/26/2014 16:11 EDT) Specimen Description Cervix, ThinPrep vial [facility] Chlamydia Result No Chlamydia trachomatis DNA detected by press manager mediated amplification. [facility] GC Result No Neisseria gonorrhoeae DNA detected by press manager mediated amplification. [facility] Specimen of unknown material (specimen) TOPOGRAPHY UNKNOWN / Unknown 04/26/2014 16:11 EDT 04/28/2014 7:50 EDT Rehan Abarca MD MICROBIOLOGY - GENER AL ORDERABLES Performing Organization Address City/State/[facility] Co de Phone Number [facility] [address] [place] [address] documented in this encounter Visit Diagnoses Diagnosis Unspecified complication of , antepartum- Primary Hypothyroidism, maternal, antepartum Thyroid dysfunction, antepartum Supervision of other normal documented in this encounter Orders Lab Orders Without Results Count Last Ordered D ate First Ordered Date PAP TEST- ORDER ONLY 1 04/25/2014 documented in this encounter Additional Health Concerns Infection Onset Date Last Indicated Resolved Time 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 Care Teams Slag Skimmer Relationship Specialty Start Date End Date Conor Angel MD [address] [place] [address] PCP - General 02/07/14 06/08/14 documented as of this encounter
--- OUTSIDE RECORDS SUMMARY | 2024-06-10 18:46 | XMS_ITS | Encounter Summary ---
Author Organization [facility] Address [address] [place] [address] Care Team Providers Care Paster Hat Lining Name Role Phone Ladonna Maurer Primary Care Provider [phone] Reason for Visit * Reason Comments Hip Pain bi-lat worse in AM. Encounter Details Date Type Department Care Team (Late st Contact Info) Description 09/26/2012 13:00 EST - 09/26/2012 15:43 EST Hospital Encounter [facility] - [address] [id number] Clarke Lambert MD [address] [place] [address] Trochanteric bursitis of both hips; Mena's thyroiditis Discharge Disposition: Home or Self Care Social [...] Sign Reading Time Taken Comments Blood Pressure 128/82 09/26/2012 1403 EST Pulse 84 09/26/2012 1403 EST Temperature 37.2 ??C (98.9 ??F) 09/26/2012 1403 EST Respiratory Rate 16 09/26/2012 1403 EST Oxygen Saturation - - Inhaled Oxygen Concentration - - Weight - - Height - - Body Mass Index - - documented in this encounter Discharge Instructions * Attachments The following attachments cannot be sent through Care Everywhere. * HIP BURSITIS: AFTER YOUR VISIT (BRUNEIAN) * TROCHANTERIC BURSITIS: EXERCISES (BRUNEIAN) documented in this encounter Medications at Time of Discharge Medication Sig Dispensed Refills Start Date End Date omeprazole (PRILOSEC) 40 mg capsuleIndications:Peptic ulcer disease Take 1 Cap by mouth daily. 90 Cap 4 03/02/2012 levothyroxine (SYNTHROID) 88 mcg tablet TAKE ONE TABLET BY MOUTH EVERY DAY 30 Tab 11 12/20/2011 04/26/2014 predniSONE (DELTASONE) 20 mg tablet Take 2 Tabs by mouth daily for 3 days. 6 Tab 0 09/26/2012 09/29/2012 documented as of this encounter Ordered Prescriptions Prescription Sig Dispensed Refills Start Date End Da te predniSONE (DELTASONE) 20 mg tablet Take 2 Tabs by mouth daily for 3 days. 6 Tab 0 09/26/2012 09/29/2012 predniSONE (DELTASONE) 20 mg tablet Take 2 Tabs by mouth daily for 3 days. 6 Tab 0 09/26/2012 09/26/2012 documented in this encounter Discharge Disposition Disposition Code Departure Means Destination Home or Self Care documented in this encounter ED Notes * Aline Brown LPN - 09/26/2012 1547 EST Pt stable. No new complaints at d/c * Clarke Lambert - 09/26/2012 1540 EST Images from the original note were not included. DOS: 09/26/2012 Chief Complaint Patient presents with ??? Hip Pain bi-lat worse in AM. The patient is a 32 y.o. female who presents today with Hip Pain The history is provided by the patient and medical records. Hip Pain This is a new problem. The current episode started more than 2 days ago. The problem has been gradually worsening. The pain is present in the left hip and right hip. The pain is at a severity of 5/10. Pertinent negatives include no numbness and full range of motion. There has been no history of extremity trauma. Family history is significant for no rheumatoid arthritis and no gout. Personal history of thyroiditis. Patient has been seen by rheumatology and is supposed to undergo GI evaluation for possible inflammatory bowel disease. Review of Systems Constitutional: Positive for chills and activity change. Negative for fever. Increased sexual activity with her boyfriend within the last few days HENT: Negative. Eyes: Negative. Respiratory: Negative. Cardiovascular: Negative. Gastrointestinal: Negative. Musculoskeletal: Positive for arthralgias and gait problem. Negative for joint swelling. Skin: Negative. Neurological: Negative for weakness and numbness. Hematological: Negative. Psychiatric/Behavioral: Negative. No current facility-administered medications for this encounter. Current Outpatient Prescriptions Medication Sig Dispense Refill ??? predniSONE (DELTASONE) 20 mg tablet Take 2 Tabs by mouth daily for 3 days. 6 Tab 0 ??? DISCONTD: predniSONE (DELTASONE) 20 mg tablet Take 2 Tabs by mouth daily for 3 days. 6 Tab 0 ??? DISCONTD: norgestimate-ethinyl estradiol (ORTHO TRI-CYCLEN, TRI-SPRINTEC) 0.18/0.215/0.25 mg-35mcg (28) tablet Take 1 Tab by mouth daily. 28 Tab 2 ??? omeprazole (PRILOSEC) 40 mg capsule Take 1 Cap by mouth daily. 90 Cap 4 ??? levothyroxine (SYNTHROID) 88 mcg tablet TAKE ONE TABLET BY MOUTH EVERY DAY 30 Tab 11 No Known Allergies Past Medical History Diagnosis Date ??? Obese ??? History of tobacco use ??? Thyroid disease History Substance Use Topics ??? Smoking status: Current Everyday Smoker -- 1.0 packs/day ??? Smokeless tobacco: Never Used ??? Alcohol Use: 10.0 oz/week 2 Glasses of wine per week Family History Problem Relation Age of Onset ??? High Blood Pressure Mother brain aneurysm ??? Stroke Mother ??? Heart Disease Father 50 [place] ??? Diabetes Father ??? Thyroid Cancer/Nodule Maternal Aunt Cancer ??? Heart Disease Maternal Grandmother [place] ??? Diabetes Maternal Grandmother ??? Cancer Maternal Aunt thyroid BP 128/82 Pulse 84 Temp(Src) 98.9 ??F (37.2 ??C) (Temporal) Resp 16 Physical Exam Nursing note and vitals reviewed. Constitutional: She is oriented to person, place, and time. She appears well- developed and well-nourished. No distress. HENT: Head: Normocephalic and atraumatic. Mouth/Throat: Oropharynx is clear and moist. Eyes: Conjunctivae and EOM are normal. Pupils are equal, round, and reactive to light. No scleral icterus. Cardiovascular: Normal rate and regular rhythm. Pulmonary/Chest: Effort normal. Abdominal: Soft. There is no tenderness. Musculoskeletal: Right hip: She exhibits tenderness. She exhibits normal range of motion, normal strength and no bony tenderness. Left hip: She exhibits tenderness. She exhibits normal range of motion and normal strength. Legs: Lymphadenopathy: She has no cervical adenopathy. Neurological: She is alert and oriented to person, place, and time. She exhibits normal muscle tone. Coordination normal. Skin: Skin is warm and dry. No rash noted. She is not diaphoretic. Multiple tattoos, professional. No new tattoos. Psychiatric: She has a normal mood and affect. Her behavior is normal. Judgment and thought contentnormal. Consult orders: None PCP: AUSTIN OWEN No results found for this visit on 09/26/12. Radiology orders: None Procedures Course: A medical screening exam was performed. We discussed my impression as well as differential diagnosis. Recommend supportive care for now. Wealso decided to go with a short burst of prednisone, 3 days. Reviewed dosing and precautions. No NSAID use while taking prednisone. Followup with primary care provider if not improving over the next week or so, sooner if worsening. Disposition: Discharged The patient's pain was managed to an adequate level weighing risk vs. benefit of further medications. Upon departure from the [facility], the patient's pain was 5 on a zero to ten scale. Condition at departure from the [facility]: Stable 1. 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 [facility] 09/26/2012 15:40 * Sonya Stoll RN - 09/26/2012 1591 EST C/O hip pain bi-lat worse in AM. Reports no specific injury. Hip pain is new. She notes that she has had testing for symptoms of night sweats, bruising, wt loss over last 2 years. Has had bone painin right lower leg, which has improved. * Lisa Alfredo - 09/26/2012 1403 EST Pt asked to change into a gown. documented in this encounter Miscellaneous Notes * Scanned Note-Null - AIRCRAFT ENGINE SPECIALIST, SCAN 2 - 09/30/2012 1318 EST documented in this encounter Plan of Treatment Upcoming Encounters Date Type Department Care Team (Late st Contact Info) Description 12/29/2024 10:20 EST Office Visit [facility] Rheumatology & Immunology - [address] [phone] Micaela Hoff MD [address] [facility], [address] [place] [address] documented as of this encounter Visit Diagnoses Diagnosis Trochanteric bursitis of both hips Enthesopathy of hip region Mena's thyroiditis Chronic lymphocytic thyroiditis documented in this encounter Discontinued Medications Medication Sig Discontinue Reason Start Date End Da te norgestimate-ethinyl estradiol (ORTHO TRI-CYCLEN, TRI-SPRINTEC) 0.18/0.215/0.25 mg-35 mcg (28) tablet Take 1 Tab by mouth daily. Therapy completed 07/31/2012 09/26/2012 predniSONE (DELTASONE) 20 mg tablet Take 2 Tabs by mouth daily for 3 days. 09/26/2012 09/26/2012 documented as of this encounter Additional Health Concerns Infection Onset Date Last Indicated Resolved Time 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 Care Teams Paster Hat Lining Relationship Specialty Start Date End Date Ladonna Maurer PA [address] [place] [id number] PCP - General 05/12/12 01/24/13 documented as of this encounter
--- OUTSIDE RECORDS SUMMARY | 2024-06-10 18:46 | XMS_ITS | Encounter Summary ---
Author Organization [facility] Address [address] [place] [address] Care Team Providers Care Cryogenic Transport Driver Name Role Phone None, Provider Primary Care Provider Unavailabl e Reason for Referral * Radiology Services (Routine) - Closed Specialty Diagnoses / Procedures Referred By Contac t Referred To Contact Diagnoses Septate uterus, antepartum Procedures RAD US RETROPERITONEAL COMPLETE Rehan Abarca MD [address] [place] [address] [place] [address] Referral ID Status Reason Start Date Expiration Date Visits Re quested Visits Authorized [id number] Closed 06/13/2014 1 1 * CREDIT ADMINISTRATION OFFICER (Routine) - Closed Specialty Diagnoses / Procedures Referred By Contac t Referred To Contact Diagnoses Supervision of other high-risk (V23.89) Procedures [facility] Rehan Abarca MD [address] [place] [address] [place] [address] Referral ID Status Reason Start Date Expiration Date Visits Re quested Visits Authorized [id number] Closed 06/13/2014 1 1 * CREDIT ADMINISTRATION OFFICER (Routine) - Closed Specialty Diagnoses / Procedures Referred By Contac t Referred To Contact Diagnoses Supervision of other high-risk (V23.89) Procedures [facility] TRANSVAGINAL Rehan Abarca MD [address] [place] [address] [place] [address] Referral ID Status Reason Start Date Expiration Date Visits Re quested Visits Authorized [id number] Closed 06/13/2014 1 1 Reason for Visit * Reason Comments Routine Visit Encounter Details Date Type Department Care Team (Late st Contact Info) Description 06/13/2014 14:30 EDT Routine [facility] Obstetrics & Midwifery - [address] [address] Makeda Lucas MD [address] [place] [address], [address] [place] [address] GA: 12w4d Discharge Disposition: Auto Discharge Social History Tobacco [...] Sign Reading Time Taken Comments Blood Pressure 110/62 06/13/2014 1427 EDT Pulse - - Temperature - - Respiratory Rate - - Oxygen Saturation - - Inhaled Oxygen Concentration - - Weight 85.5 kg (188 lb 6.4 oz) 06/13/2014 1427 E DT Height - - Body Mass Index 29.51 05/11/2014 1501 EDT documented in this encounter Discharge Diagnoses Diagnosis 244.9 HYPOTHYROIDISM NOS[ICD-9-CM] V23.89 SUPERVISION OF OTHER HIGH-RISK [ICD-9-CM] 654.03 CONGEN ABN UTER-ANTEPART[ICD-9-CM] documented in this encounter Discharge Disposition Disposition Code Departure Means Destination Auto Discharge documented in this encounter Progress Notes * Rehan Abarca MD - 06/15/2014 0754 EDT Subjective Teri Smith is a 34 y.o. at 12w4d here for a routine visit. Additional Notes: Doing well without complaints Movement:None Contractions / Labor:None Vaginal Bleeding: None Leakage of Fluid: None Objective Vitals: BP: 110/62 mmHg Weight : 85.458 kg (188 lb 6.4 oz) Heart Rate: 150 Movement: N/A Assessment 34 y.o. at 12w4d with history of a here for a routine visit. Plan with history of pre-term labor The patient last saw Dr. Howell for consultation and plans to start Ary IM injections weekly until 36 weeks gestation. Transvaginal cervical length measurements to start at 16 weeks. Thyroid dysfunction, antepartum Levothyroxine increased to 100mcg at first visit. Will check TSH and FT4 today, as it has been 6 weeks since last TSH/FT4. Exposure to hepatitis C The patient is negative for Hep C Ab. Partner has disease, but unaware if he has active disease. Hewill check with his physician. Discussed the signs and symptoms of pre-/term labor and when to call the office. Follow-up in 4 week(s). Seen with Dr. Lucas. Rehan Abarca MD * Makeda Lucas MD - 06/13/2014 7665 EDT MFMS Attending I saw and examined the patient. I agree with impression and plan as noted above. I spent 15 minuteswith the pt 15 min in discussion of the plan as above. Discusssed hx PTB is a canddiate for prog but followng cx length is certainly an option given septoplasty Pt wasnts progesterone Disc hep C in partner: he should get viral load. Can consider condoms if he is RNA + although not clear impact on transmission MFMS Attending I saw and examined the patient. I agree with impression and plan as noted above. I spent 15 minuteswith the pt 15 min in discussion of the plan as above. Makeda Lucas MD documented in this encounter Miscellaneous Notes * Assessment & Plan Note - Rehan Abarca MD - 06/15/2014 0754 EDTAssociated Problem(s): Exposure to hepatitis C The patient is negative for Hep C Ab. Partner has disease, but unaware if he has active disease. Hewill check with his physician. * Assessment & Plan Note - Rehan Abarca MD - 06/15/2014 0753 EDTAssociated Problem(s): Disorder of thyroid, antepartum Levothyroxine increased to 100mcg at first visit. Will check TSH and FT4 today, as it has been 6 weeks since last TSH/FT4. * Assessment & Plan Note - Rehan Abarca MD - 06/15/2014 0752 EDTAssociated Problem(s): with history of pre-term labor The patient last saw Dr. Howell for consultation and plans to start [place] IM injections weekly until 36 weeks gestation. Transvaginal cervical length measurements to start at 16 weeks. documented in this encounter Plan of Treatment Upcoming Encounters Date Type Department Care Team (Late st Contact Info) Description 12/29/2024 10:20 EST Office Visit [facility] Rheumatology & Immunology - [address] [address] Micaela Hoff MD [address] [place] [address], [address] [place] [address] documented as of this encounter Procedures Procedure Name Priority Date/Time Associated Diagnosis Comments [facility] Routine 08/08/2014 11:19 EDT Supervision of other high-risk (V23.89) RAD US RETROPERITONEAL COMPLETE Routine 07/11/2014 11:05 EDT Septate uterus, antepartum [facility] TRANSV[facility] Routine 07/11/2014 9:48 EDT Supervision of other high-risk (V23.89) documented in this encounter Results * [facility] (08/08/2014 11:19 EDT) Anatomical Region Laterality Modality Other 08/08/2014 11:1 9 EDT 08/08/2014 11:49 EDT Narrative 08/08/2014 11:49 EDT Indication: Maternal disease: Hypothyroidism. Drugs / X-Rays: cigarette use. History (Previous ): complications: Hx of PTD @ 19wks. History: Age: 34 years. : 4 Para: 2. Previous pregnancies: Children born at term: 1. Children born : 1. Abortions: 1. Living children: 1. Current : Pre- data: Weight 160 lbs. Height 5 ft 7 ins. BMI 25.1. Obstetric History: Previous complications: stillbirth @20 weeks. Mode of last delivery: Vaginal Delivery. Dating: LMP: 03/17/2014 EDC: 12/22/2014 GA by LMP: 20w4d Current Scan on: 08/08/2014 EDC: 12/23/2014 GA by current scan: 20w3d Best Overall Assessment: 05/11/2014 EDC: 12/22/2014 Assessed GA: 20w4d The calculation of the gestational age by current scan was based on BPD, HC, TCD, AC, FL and HUM. The Best Overall Assessment is based on the LMP. General Evaluation: heart activity: Present. heart rate: 141 bpm. Presentation: Footling breech. movement: visible. Amniotic Fluid: Normal. Cord: 3 Vessels. Placental cord insertion site: Normal. cord insertion site: Normal. Placenta: Posterior. Placenta Grade: Grade 1. Structure: normal. Anatomy Scan: Sanford gestation. Biometry: BPD 43.8 mm 7th% 19w2d (18w5d to 19w6d) HC 171.8 mm 11th% 19w5d (18w2d to 21w2d) AC 154.8 mm 47th% 20w5d (20w0d to 21w2d) FL 34.3 mm 49th% 20w6d (19w0d to 22w4d) OFD 63.0 mm 54th% 20w4d TCD 22.3 mm 79th% 21w3d HUM 31.6 mm 49th% 20w4d RAD 29.1 mm 64th% 21w0d ULN 29.4 mm 40th% 20w1d TIB 30.1 mm 66th% 21w0d FIB 30.7 mm 59th% 20w6d Foot 35.0 mm n/a 20w5d VENTRp 5.9 mm n/a CM 5.3 mm 56th% NUCHAL FOLD 4.63 mm NASAL BONE 4.4 mm n/a HC/AC Ratio 1.110 ??17th% FL/AC Ratio 0.222 ??54th% BPD/FL Ratio 1.277 ??<5th% BPD/OFD Ratio 0.695 ??<5th% EFW (lbs/oz) 0 lbs 13 ozs EFW (g) 362 g ??n/a Anatomy: Head: head shape appears normal. Brain: Cerebellum, choroid plexus, cisterna magna, lateral cerebral ventricles, midline falx and cavum septi pellucidi appear normal. Face: eyes normal, profile normal, nose normal, lip normal, palate is not imaged but the maxilla appears normal. Spine: Cervical, thoracic, lumbar and sacral spine appear normal Neck / Skin: No neck masses seen. Thorax: No thoracic abnormalities detected. Heart: Visualized and normal appearance: four-chamber view, left outflow tract, right outflow tract, Aortic arch. Cardiac axis: normal. Aortic arch: Normal. Inferior vena cava: poorly seen. Superior vena cava: poorly seen. Abdominal Wall: Normal cord insertion into the abdominal wall is seen. Gastrointestinal Tract: Stomach appears normal. Kidneys / Adrenal Glands: Bilateral kidneys appear normal. Bladder: bladder appears normal in size and shape. Genitalia: Female fetus. Extremities: Both upper and lower extremities are seen and appear normal. Skeleton: No evidence of skeletal abnormality detected. Summary of Ultrasound Findings: Transabdominal US. U/S machine: [employer] e8. U/S view: good. Genetic Sonogram: measured FL: 34.3 mm exp. FL: 30.2 mm measured HUM: 31.6 mm exp. HUM: 29.3 mm ratio FL/exp.FL: 1.14 ratio HUM/exp.HUM: 1.08 Nuchal fold normal. Pyelectasis absent. No hyperechogenic bowel. Echogenic intracardiac focus absent. Additional Marker: Nasal bone length: normal. Maternal Structures: Uterus: normal. Cervix: normal. Right Ovary: normal. Right Ovary size: 26 mm x 22 mm x 19 mm. Volume: 5.7 ml. Left Ovary: normal. Left Ovary size: 36 mm x 22 mm x 18 mm. Volume: 7.5 ml. Report Summary: Impression: [id number] Obstetrical ultrasound with and maternal evaluation, including detailed anatomic examination This is a sanford gestation. Biometry is consistent with menstrual dating. The IVC/SVC are suboptimally visualized. ??Otherwise, anatomy appears normal as noted above; however, ultrasound cannot detect all anomalies. As per the SMFM guidelines, the following were evaluated and were normal: the cerebellum (including lobes and vermis,) facial profile, the chest (including examination for masses, effusion, integrity of both sides of the diaphragm and lung parenchyma), abdomen for ascites, 12-long bones with normal architecture/position of limbs, hands and feet, placental insertion site of the umbilical cord and placenta for masses. The amniotic fluid volume is normal. There is trunk and extremity movement noted. Her risk for Down syndrome is reduced from her prior risk, but the relative risk for risk reduction has not been well characterized at this gestational age since the sensitivity of ultrasound to detect Down syndrome is likely decreased after 20 weeks'. Recommendations: Follow-up as clinically indicated. Procedure Note 08/08/2014 Indication: Maternal disease: Hypothyroidism. Drugs / X-Rays: cigarette use. History (Previous ): complications: Hx of PTD @ 19wks. History: Age: 34 years. : 4 Para: 2. Previous pregnancies: Children born at term: 1. Children born : 1. Abortions: 1. Living children: 1. Current : Pre- data: Weight 160 lbs. Height 5 ft 7 ins. BMI 25.1. Obstetric History: Previous complications: stillbirth @20 weeks. Mode of last delivery: Vaginal Delivery. Dating: LMP: 03/17/2014 EDC: 12/22/2014 GA by LMP: 20w4d Current Scan on: 08/08/2014 EDC: 12/23/2014 GA by current scan: 20w3d Best Overall Assessment: 05/11/2014 EDC: 12/22/2014 Assessed GA: 20w4d The calculation of the gestational age by current scan was based on BPD, HC, TCD, AC, FL and HUM. The Best Overall Assessment is based on the LMP. General Evaluation: heart activity: Present. heart rate: 141 bpm. Presentation: [place] breech. movement: visible. Amniotic Fluid: Normal. Cord: 3 Vessels. Placental cord insertion site: Normal. cord insertion site: Normal. Placenta: Posterior. Placenta Grade: Grade 1. Structure: normal. Anatomy Scan: Sanford gestation. Biometry: BPD 43.8 mm 7th% 19w2d (18w5d to 19w6d) HC 171.8 mm 11th% 19w5d (18w2d to 21w2d) AC 154.8 mm 47th% 20w5d (20w0d to 21w2d) FL 34.3 mm 49th% 20w6d (19w0d to 22w4d) OFD 63.0 mm 54th% 20w4d TCD 22.3 mm 79th% 21w3d HUM 31.6 mm 49th% 20w4d RAD 29.1 mm 64th% 21w0d ULN 29.4 mm 40th% 20w1d TIB 30.1 mm 66th% 21w0d FIB 30.7 mm 59th% 20w6d Foot 35.0 mm n/a 20w5d VENTRp 5.9 mm n/a CM 5.3 mm 56th% NUCHAL FOLD 4.63 mm NASAL BONE 4.4 mm n/a HC/AC Ratio 1.110 17th% FL/AC Ratio 0.222 54th% BPD/FL Ratio 1.277 <5th% BPD/OFD Ratio 0.695 <5th% EFW (lbs/oz) 0 lbs 13 ozs EFW (g) 362 g n/a Anatomy: Head: head shape appears normal. Brain: Cerebellum, choroid plexus, cisterna magna, lateral cerebral ventricles, midline falx and cavum septi pellucidi appear normal. Face: eyes normal, profile normal, nose normal, lip normal, palate is not imaged but the maxilla appears normal. Spine: Cervical, thoracic, lumbar and sacral spine appear normal Neck / Skin: No neck masses seen. Thorax: No thoracic abnormalities detected. Heart: Visualized and normal appearance: four-chamber view, left outflow tract, right outflow tract, Aortic arch. Cardiac axis: normal. Aortic arch: Normal. Inferior vena cava: poorly seen. Superior vena cava: poorly seen. Abdominal Wall: Normal cord insertion into the abdominal wall is seen. Gastrointestinal Tract: Stomach appears normal. Kidneys / Adrenal Glands: Bilateral kidneys appear normal. Bladder: bladder appears normal in size and shape. Genitalia: Female fetus. Extremities: Both upper and lower extremities are seen and appear normal. Skeleton: No evidence of skeletal abnormality detected. Summary of Ultrasound Findings: Transabdominal US. U/S machine: [employer] e8. U/S view: good. Genetic Sonogram: measured FL: 34.3 mm exp. FL: 30.2 mm measured HUM: 31.6 mm exp. HUM: 29.3 mm ratio FL/exp.FL: 1.14 ratio HUM/exp.HUM: 1.08 Nuchal fold normal. Pyelectasis absent. No hyperechogenic bowel. Echogenic intracardiac focus absent. Additional Marker: Nasal bone length: normal. Maternal Structures: Uterus: normal. Cervix: normal. Right Ovary: normal. Right Ovary size: 26 mm x 22 mm x 19 mm. Volume: 5.7 ml. Left Ovary: normal. Left Ovary size: 36 mm x 22 mm x 18 mm. Volume: 7.5 ml. Report Summary: Impression: [id number] Obstetrical ultrasound with and maternal evaluation, including detailed anatomic examination This is a sanford gestation. Biometry is consistent with menstrual dating. The IVC/SVC are suboptimally visualized. Otherwise, anatomy appears normal as noted above; however, ultrasound cannot detect all anomalies. As per the SM guidelines, the following were evaluated and were normal: the cerebellum (including lobes and vermis,) facial profile, the chest (including examination for masses, effusion, integrity of both sides of the diaphragm and lung parenchyma), abdomen for ascites, 12-long bones with normal architecture/position of limbs, hands and feet, placental insertion site of the umbilical cord and placenta for masses. The amniotic fluid volume is normal. There is trunk and extremity movement noted. Her risk for Down syndrome is reduced from her prior risk, but the relative risk for risk reduction has not been well characterized at this gestational age since the sensitivity of ultrasound to detect Down syndrome is likely decreased after 20 weeks'. Recommendations: Follow-up as clinically indicated. Rehan Abarca MD [facility] ORDERABLE S * RAD US RETROPERITONEAL COMPLETE (07/11/2014 11:05 EDT) Anatomical Region Laterality Modality Other 07/11/2014 11:0 5 EDT 07/11/2014 14:04 EDT Narrative 07/11/2014 14:04 EDT RAD US RETROPERITONEAL COMPLETE ??07/11/2014 11:05 AM Signs and Symptoms/Comments: ??654.03-Congenital abnormalities of uterus, [id number]; history of a uterine anomaly . The right kidney measures 13.4 cm in length and shows no abnormality. ?? The left kidney is 12.47 m long. There is no hydronephrosis. There are at least 2 right echogenic foci which almost certainly represent nonobstructive calculi, each approximately 6 mm in diameter. The urinary bladder looks normal. Impression: 1. Nonobstructive left nephrolithiasis 2. Normal right kidney and urinary bladder Procedure Note 07/11/2014 RAD US RETROPERITONEAL COMPLETE 07/11/2014 11:05 AM Signs and Symptoms/Comments: 654.03-Congenital abnormalities of uterus, [id number]; history of a uterine anomaly . The right kidney measures 13.4 cm in length and shows no abnormality. The left kidney is 12.47 m long. There is no hydronephrosis. There are at least 2 right echogenic foci which almost certainly represent nonobstructive calculi, each approximately 6 mm in diameter. The urinary bladder looks normal. Impression: 1. Nonobstructive left nephrolithiasis 2. Normal right kidney and urinary bladder Rehan Abarca MD [facility] ORDERABLES * [facility] TRANSV[facility] (07/11/2014 9:48 EDT) Anatomical Region Laterality Modality Other 07/11/2014 9:48 EDT 07/18/2014 11:58 EDT Narrative 07/18/2014 11:58 EDT Addendum Begins Indication: History (Previous ): complications: Hx of PTD @ 19wks. History: Age: 34 years. : 4 Para: 2. Previous pregnancies: Children born at term: 1. Children born : 1. Abortions: 1. Living children: 1. Last menstrual period: 03/17/2014. Current : Pre- data: Weight 160 lbs. Height 5 ft 7 ins. BMI 25.1. Obstetric History: Previous complications: stillbirth @20 weeks. Mode of last delivery: Vaginal Delivery. General Evaluation: heart activity: Present. heart rate: 148 bpm. Presentation: variable. movement: visible. Amniotic Fluid: Normal. Placenta: Posterior marginal previa. Placenta Grade: Grade 1. Structure: normal. Maternal Structures: Cervix: normal. No funneling. Cervical length: 18 mm. Report Summary: Impression: [id number] Transvaginal obstetrical scan A transvaginal scan was performed. The cervical length was abnormal measuring 1.7 - 1.8 cm. Recommendations: The patient was counseled by Dr. Robb Nam. Growth Overview: Date GA BPD [mm] HC [mm] AC [mm] FL [mm] HUM [mm] EFW GP 05/11/2014 7 + 6 ... ... ... ... ... ... ... 06/13/2014 12 + 4 ... ... ... ... ... ... ... 06/29/2014 14 + 6 ... ... ... ... ... ... ... 07/11/2014 16 + 4 ... ... ... ... ... ... ... 07/18/2014 17 + 4 ... ... ... ... ... ... ... Addendum Ends Indication: History (Previous ): complications: Hx of PTD @ 19wks. History: Age: 34 years. : 4 Para: 2. Previous pregnancies: Children born at term: 1. Children born : 1. Abortions: 1. Living children: 1. Last menstrual period: 03/17/2014. Current : Pre- data: Weight 160 lbs. Height 5 ft 7 ins. BMI 25.1. Obstetric History: Previous complications: stillbirth @20 weeks. Mode of last delivery: Vaginal Delivery. General Evaluation: heart activity: Present. heart rate: 148 bpm. Presentation: variable. movement: visible. Amniotic Fluid: Normal. Placenta: Posterior marginal previa. Placenta Grade: Grade 1. Structure: normal. Maternal Structures: Cervix: normal. No funneling. Cervical length: 18 mm. Report Summary: Impression: [id number] Transvaginal obstetrical scan A transvaginal scan was performed. The cervical length was abnormal measuring 1.7 - 1.8 cm. Recommendations: The patient was counseled by Dr. Robb Nam. Growth Overview: Date [place] BPD [mm] HC [mm] AC [mm] FL [mm] HUM [mm] EFW GP 05/11/2014 7 + 6 ... ... ... ... ... ... ... 06/13/2014 12 + 4 ... ... ... ... ... ... ... 06/29/2014 14 + 6 ... ... ... ... ... ... ... 07/11/2014 16 + 4 ... ... ... ... ... ... ... Procedure Note 07/18/2014 Addendum Begins Indication: History (Previous ): complications: Hx of PTD @ 19wks. History: Age: 34 years. : 4 Para: 2. Previous pregnancies: Children born at term: 1. Children born : 1. Abortions: 1. Living children: 1. Last menstrual period: 03/17/2014. Current : Pre- data: Weight 160 lbs. Height 5 ft 7 ins. BMI 25.1. Obstetric History: Previous complications: stillbirth @20 weeks. Mode of last delivery: Vaginal Delivery. General Evaluation: heart activity: Present. heart rate: 148 bpm. Presentation: variable. movement: visible. Amniotic Fluid: Normal. Placenta: Posterior marginal previa. Placenta Grade: Grade 1. Structure: normal. Maternal Structures: Cervix: normal. No funneling. Cervical length: 18 mm. Report Summary: Impression: [id number] Transvaginal obstetrical scan A transvaginal scan was performed. The cervical length was abnormal measuring 1.7 - 1.8 cm. Recommendations: The patient was counseled by Dr. Robb Nam. Growth Overview: Date GA BPD [mm] HC [mm] AC [mm] FL [mm] HUM [mm] EFW GP 05/11/2014 7 + 6 ... ... ... ... ... ... ... 06/13/2014 12 + 4 ... ... ... ... ... ... ... 06/29/2014 14 + 6 ... ... ... ... ... ... ... 07/11/2014 16 + 4 ... ... ... ... ... ... ... 07/18/2014 17 + 4 ... ... ... ... ... ... ... Addendum Ends Indication: History (Previous ): complications: Hx of PTD @ 19wks. History: Age: 34 years. : 4 Para: 2. Previous pregnancies: Children born at term: 1. Children born : 1. Abortions: 1. Living children: 1. Last menstrual period: 03/17/2014. Current : Pre- data: Weight 160 lbs. Height 5 ft 7 ins. BMI 25.1. Obstetric History: Previous complications: stillbirth @20 weeks. Mode of last delivery: Vaginal Delivery. General Evaluation: heart activity: Present. heart rate: 148 bpm. Presentation: variable. movement: visible. Amniotic Fluid: Normal. Placenta: Posterior marginal previa. Placenta Grade: Grade 1. Structure: normal. Maternal Structures: Cervix: normal. No funneling. Cervical length: 18 mm. Report Summary: Impression: [id number] Transvaginal obstetrical scan A transvaginal scan was performed. The cervical length was abnormal measuring 1.7 - 1.8 cm. Recommendations: The patient was counseled by Dr. Robb Nam. Growth Overview: Date GA BPD [mm] HC [mm] AC [mm] FL [mm] HUM [mm] EFW GP 05/11/2014 7 + 6 ... ... ... ... ... ... ... 06/13/2014 12 + 4 ... ... ... ... ... ... ... 06/29/2014 14 + 6 ... ... ... ... ... ... ... 07/11/2014 16 + 4 ... ... ... ... ... ... ... Rehan Abarca MD [facility] ORDERABLE S * T4 FREE (06/13/2014 15:23 EDT) Free T4 1.4 0.8 - 1.8 ng/dl [facility] Blood specimen (specimen) 06/13/2014 15:23 EDT 06/13/2014 16:22 EDT Rehan Abarca MD CHEMISTRY & BLOOD [facility] ORDERABLES Performing Organization Address City/[facility] Co de Phone Number [facility] [address] [place] [address] * TSH (06/13/2014 15:23 EDT) TSH 1.01 0.35 - 5.00 uIU/ml [facility] Blood specimen (specimen) 06/13/2014 15:23 EDT 06/13/2014 16:22 EDT Rehan Abarca MD CHEMISTRY & BLOOD [place] S ORDERABLES Performing Organization Address City/[facility] Co de Phone Number [facility] [address] [place] [address] documented in this encounter Visit Diagnoses Diagnosis Hypothyroidism- Primary Unspecified hypothyroidism Supervision of other high-risk (V23.89) Supervision of other high-risk Septate uterus, antepartum Congenital abnormalities of uterus, antepartum documented in this encounter Historical Medications * This list may reflect changes made after this encounter. Medication Sig Dispensed Refills Start Date End Date pediatric multivitamin (LIZETT CHEW VIT) chewable tablet Take 1 Tab by mouth daily. 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
--- OUTSIDE RECORDS SUMMARY | 2024-06-10 18:46 | XMS_ITS | Encounter Summary ---
Author Organization [facility] Address [address] [place] [address] Care Team Providers Care Wire Welder Name Role Phone Ladonna Maurer Primary Care Provider [phone] Reason for Visit * Reason Onset Date Comments Results 12/30/2012 Thyroid Problem 12/30/2012 Encounter Details Date Type Department Care Team (Late st Contact Info) Description 12/30/2012 Telephone [facility] - [facility] [address] [place] [address] Drew Grijalva MD [address] [facility] [address] [place] [address] Results; Thyroid Problem Social History Tobacco Use Types Packs/Day Years [...] encounter Miscellaneous Notes * Telephone Encounter - Kyara Shethalok Howe - 12/30/2012 1216 EST Spoke with Teri: explained her TFTs are normal per Dr Grijalva. Teri is having front lower neck pain, I asked it it could be the muscles right there and she said it might be, or I suggested maybe she's coming down with a cold - denies all other cold symptoms. Teri states she's still having chronic leg and lower back pain, which now feels like it comes and goes in her kidney area. Denies sx of UTI. Has seen many specialists about this, and thinks its an endocrine disorder that we haven't tested for. I explained these are not typical symptoms of any endo disorder I've heard of. Teri states that some days it's hard to get up out of bed from the pain. I did not mention fibromyalgia or lupus to her, but she was wondering about her increased risk of another autoimmune disease. I advised Teri to talk with her new pcp at that visit at the end of December with maybe a referral [facility]. * Telephone Encounter - Madhuri Posada - 12/30/2012 1139 EST Patient really needs to speak to talk to the nurse she really isnt feeling well at all, she is having pain in her neck now hurts to move, also feels swollen. * Telephone Encounter - Inge Johnson - 12/30/2012 0864 EST Pt asking for lab results from her November visit, also since yesterday she has notice her thyroid feels enlarged and sore, and stating is more shaky than usual documented in this encounter Plan of Treatment Upcoming Encounters Date Type Department Care Team (Late st Contact Info) Description 12/29/2024 10:20 EST Office Visit [facility] Rheumatology & Immunology - [address] [address] Micaela Hoff MD [address] [place] [address], [address] [place] [address] documented as of this encounter Visit Diagnoses Not on filedocumented in this encounter Additional Health Concerns Infection Onset Date Last Indicated Resolved Time 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 Care Teams Wire Welder Relationship Specialty Start Date End Date Garrigan, Ladonna, PA [address] [place] [address] PCP - General 05/12/12 01/24/13 documented as of this encounter
--- OUTSIDE RECORDS SUMMARY | 2024-06-10 18:46 | XMS_ITS | Encounter Summary ---
Author Organization [facility] Address [address] [place] [address] Care Team Providers Care Change Management Manager Name Role Phone Conor Angel MD Primary Care Provider [phone] Reason for Referral * WAREHOUSE HAND (Routine) - Closed Specialty Diagnoses / Procedures [facility] Referred To Contact Diagnoses Pelvic pain in female Procedures APPRENTICE COSMETOLOGIST US PELVIS TRANSVAGINAL Aura Bui, RN [address] [place] [phone] Referral ID Status Reason Start Date Expiration Date Visits Re quested Visits Authorized [id number] Closed 02/10/2014 1 1 Encounter Details Date Type Department Care Team (Late st Contact Info) Description 02/10/2014 Orders Only [facility] Women's Services - [address] [address] Aura Bui, RN [address] [place] [phone] Pelvic pain in female (Primary Dx) Social History Tobacco Use Types [...] [facility] Rheumatology & Immunology - [address] [address] Micaela Hoff MD [address] [place] [address], [address] [place] [address] documented as of this encounter Procedures Procedure Name Priority Date/Time Associated Diagnosis Comments APPRENTICE COSMETOLOGIST US PELVIS TRANSVAGINAL Routine 02/10/2014 14:08 EDT Pelvic pain in female documented in this encounter Results * APPRENTICE COSMETOLOGIST US PELVIS TRANSVAGINAL (02/10/2014 14:08 EDT) Anatomical Region Laterality Modality Other 02/10/2014 14:0 8 EDT 02/10/2014 14:19 EDT Narrative 02/10/2014 14:19 EDT Indication: 1st trimester bleeding. right adnexal pain. History: Age: 33 years. : 3 Para: 1. Previous pregnancies: Children born at term: 1. Abortions: 1. Living children: 1. Dating: LMP: 01/07/2014 EDC: 10/14/2014 GA by LMP: 4w6d Early Assessment: Gestational Sac absent. Yolk Sac absent. Embryo absent. Maternal Structures: Uterus: normal,anteverted. Size: Longitudinal 87 mm. Anterio- posterior 49 mm. Transverse 59 mm. Volume: 131.7 ml. Endometrium: endometrium clearly visualized. Right Ovary: normal. Right Ovary size: 37 mm x 18 mm x 18 mm. Volume: 6.3 ml. Cysts Right Ovary: Cyst 1: Mean value: 13 mm. D1: 16 mm. D2: 11 mm. D3: 12 mm. Volume: 1 ml. Anechoic paratubal cyst. Left Ovary: normal. Left Ovary size: 26 mm x 15 mm x 16 mm. Volume: 3.3 ml. Cul de Sac / Pouch of Bairon: trace of free fluid visible. Report Summary: Impression: [id number] First trimester obstetrical US, transvaginal 1) Likely s/p miscarriage given HCG is 6 and uterus has a 7mm endometrium. No gestational sac seen. No adnexal abnormalities except a small anechoic paratubal cyst. 2) Patient not tender with pressure from US exam. Recommendations: Patient seeing Dr. Rogers right after US for further management. Procedure Note 02/10/2014 Indication: 1st trimester bleeding. right adnexal pain. History: Age: 33 years. : 3 Para: 1. Previous pregnancies: Children born at term: 1. Abortions: 1. Living children: 1. Dating: LMP: 01/07/2014 EDC: 10/14/2014 GA by LMP: 4w6d Early Assessment: Gestational Sac absent. Yolk Sac absent. Embryo absent. Maternal Structures: Uterus: normal,anteverted. Size: Longitudinal 87 mm. Anterio- posterior 49 mm. Transverse 59 mm. Volume: 131.7 ml. Endometrium: endometrium clearly visualized. Right Ovary: normal. Right Ovary size: 37 mm x 18 mm x 18 mm. Volume: 6.3 ml. Cysts Right Ovary: Cyst 1: Mean value: 13 mm. D1: 16 mm. D2: 11 mm. D3: 12 mm. Volume: 1 ml. Anechoic paratubal cyst. Left Ovary: normal. Left Ovary size: 26 mm x 15 mm x 16 mm. Volume: 3.3 ml. Cul de Sac / Pouch of Bairon: trace of free fluid visible. Report Summary: Impression: [id number] First trimester obstetrical US, transvaginal 1) Likely s/p miscarriage given HCG is 6 and uterus has a 7mm endometrium. No gestational sac seen. No adnexal abnormalities except a small anechoic paratubal cyst. 2) Patient not tender with pressure from US exam. Recommendations: Patient seeing Dr. Rogers right after US for further management. Sarah Rogers MD IMG US APPRENTICE COSMETOLOGIST ORDERABL ES documented in this encounter Visit Diagnoses Diagnosis Pelvic pain in female- Primary Unspecified symptom associated with female genital organs documented in this encounter Additional Health Concerns Infection Onset Date Last Indicated Resolved Time 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 Care Teams Change Management Manager Relationship Specialty Start Date End Date Conor Angel MD [address] [place] [address] PCP - General 02/07/14 06/08/14 documented as of this encounter
--- OUTSIDE RECORDS SUMMARY | 2024-06-10 18:46 | XMS_ITS | Encounter Summary ---
Author Organization [facility] Address [address] [place] [address] Care Team Providers Care Psychiatric Nursing Aide Name Role Phone Ladonna Maurer Primary Care Provider [phone] Reason for Visit * Reason Comments Medications Refill Encounter Details Date Type Department Care Team (Late st Contact Info) Description 07/31/2012 13:13 EDT - 07/31/2012 15:40 EDT Hospital Encounter [facility] Urgent Care - [address] [address] Sarah Solitario NP Unknown, Provider, control counseling Discharge Disposition: Home or Self Care Social [...] Sign Reading Time Taken Comments Blood Pressure 137/76 07/31/2012 1423 EDT Pulse 73 07/31/2012 1423 EDT Temperature 36.8 ??C (98.3 ??F) 07/31/2012 1423 EDT Respiratory Rate 12 07/31/2012 1423 EDT Oxygen Saturation - - Inhaled Oxygen Concentration - - Weight - - Height - - Body Mass Index - - documented in this encounter Discharge Instructions * Discharge Instructions* Sarah Solitario NP - 07/31/2012 15:27 EDT To protect yourself from sexually transmitted infections, it is important to continue using barriertechniques such as condoms. To prevent complications with control pills it is very important to stop smoking. Please use the line to assist with your smoking cessation. See handouts on smoking cessation and control pills. * Attachments The following attachments cannot be sent through Care Everywhere. * COMBINATION CONTROL PILLS: AFTER YOUR VISIT (MONGOLIAN) * STOPPING SMOKING: AFTER YOUR VISIT (MONGOLIAN) documented in this encounter Medications at Time of Discharge Medication Sig Dispensed Refills Start Date End Date omeprazole (PRILOSEC) 40 mg capsuleIndications:Peptic ulcer disease Take 1 Cap by mouth daily. 90 Cap 4 03/02/2012 levothyroxine (SYNTHROID) 88 mcg tablet TAKE ONE TABLET BY MOUTH EVERY DAY 30 Tab 11 12/20/2011 04/26/2014 norgestimate-ethinyl estradiol (ORTHO TRI-CYCLEN, TRI-SPRINTEC) 0.18/0.215/0.25 mg-35 mcg (28) tablet Take 1 Tab by mouth daily. 28 Tab 2 07/31/2012 09/26/2012 documented as of this encounter Ordered Prescriptions Prescription Sig Dispensed Refills Start Date End Da te norgestimate-ethinyl estradiol (ORTHO TRI-CYCLEN, TRI-SPRINTEC) 0.18/0.215/0.25 mg-35 mcg (28) tablet Take 1 Tab by mouth daily. 28 Tab 2 07/31/2012 09/26/2012 documented in this encounter Discharge Disposition Disposition Code Departure Means Destination Home or Self Care Car documented in this encounter ED Notes * Jacinto Freeman - 07/31/2012 1529 EDT Blood drawn via butterfly needle per protocol, tiger tube(s) sent to lab per order. * Sarah Solitario NP - 07/31/2012 1515 EDT DOS: 07/31/2012 Chief Complaint Patient presents with ??? Medications Refill The patient is a 32 y.o. female who presents today with Medications Refill HPI Comments: 32-year-old female who comes to clinic requesting control pills. She has a new partner of one month and she has been using a condom. She has had 10-15 partners in the last year and her last HIV test was more than 6 months ago. Due to a chronic GI issue and intermittent abdominalpain she had a GC Chlamydia tests a couple of weeks ago which was negative. She was on control pills in the past for many years and she last her control pills about a year ago. She also had an injection of Depo in November of this year. She denies any urinary symptoms or vaginal discharge at this time. Her last period was 2 weeks ago. Patient states she came to clinic because she did not have time to fill out the paperwork to [facility] during the work week especially if she was not going to be eligible for the care there.She has a primary care appointment scheduled for October 2012. 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 Social: Patient plans to quit smoking and she has Nicorette gum to start tomorrow. The history is provided by the patient. Medications Refill Associated symptoms include rhinorrhea. Pertinent negatives include no fever, no abdominal pain andno headaches. Review of Systems Constitutional: Negative for fever. HENT: Positive for rhinorrhea. Cardiovascular: Negative for chest pain. Gastrointestinal: Negative for abdominal pain. Genitourinary: Negative for dysuria and vaginal discharge. Neurological: Negative for headaches. No current facility-administered medications for this encounter. Current Outpatient Prescriptions Medication Sig Dispense Refill ??? norgestimate-ethinyl estradiol (ORTHO TRI-CYCLEN, TRI-SPRINTEC) 0.18/0.215/0.25 mg-35 mcg (28) tablet Take 1 Tab by mouth daily. 28 Tab 2 ??? DISCONTD: docusate sodium (COLACE) 100 mg capsule 100 mg daily as needed. ??? omeprazole (PRILOSEC) 40 mg capsule Take [...] oz/week 2 Glasses of wine per week rare Family History Problem Relation Age of Onset ??? High Blood Pressure Mother brain aneurysm ??? Stroke Mother ??? Heart Disease Father 50 [place] ??? Diabetes Father ??? Thyroid Cancer/Nodule Maternal Aunt Cancer ??? Heart Disease Maternal Grandmother [place] ??? Diabetes Maternal Grandmother ??? Cancer Maternal Aunt thyroid BP 137/76 Pulse 73 Temp(Src) 98.3 ??F (36.8 ??C) (Temporal) Resp 12 Physical Exam Constitutional: She appears well-nourished. No distress. Very pleasant young woman in no acute distress. She expressed anxiousness regarding her ability to obtain control pills. Pulmonary/Chest: Effort normal. Neurological: She is alert. Skin: Skin is warm and dry. Psychiatric: She has a normal mood and affect. Consult orders: None PCP: AUSTIN OWEN Results for orders placed during the hospital encounter of 07/31/12 TEST, URINE Component Value Range Result- Test, Ur Negative Radiology orders: None Procedures Course: A medical screening exam was performed. VSS Past medical history: Mena's. No history of clotting disorder. Social: Smoker and multiple partners Discussion: This patient has been frustrated with obtaining health care and feels very anxious to get started on control pills. I discussed with her the use of [facility] and slight increase scale and she was anxious that she would not qualify for there program. Due to her anxiety of wanting to start control pills immediately, I am giving her a prescription for a month with 2 refills we will hold her over until she has an appointment with her primary care doctor. A wider discussion occurred regarding other types of control methods, the importance of taking her pill daily, prevention of sexually transmitted infections and [facility] He detailed discussion regarding the importance of her smoking cessation plan starting tomorrow and quit line information given. Disposition: Discharged The patient's pain was managed to an adequate level weighing risk vs. benefit of further medications. Upon departure from the [facility], the patient's pain was 0 on a zero to ten scale. Condition at departure from the [facility]: Good 1. control counseling TEST, URINE, HIV 1/2 ANTIBODY, TEST, URINE, HIV 1/2ANTIBODY Dr. Florentino was available for consultation during my care of this patient. MDM Number of Diagnoses or Management Options control counseling: Amount and/or Complexity of Data Reviewed Clinical lab tests: ordered and reviewed (UPT negative. HIV test pending.) Decide to obtain previous medical records or to obtain history from someone other than the patient:yes (July 17, 2012: Patient tested positive for urinary tract infection and treated with Bactrim. GC Chlamydia and tests were negative.) 07/31/2012 15:42 * Herminia Street RN - 07/31/2012 1347 EDT Patient presents with need of control, states that she recently moved here and can't afford [facility] at [facility], has appointment to be seen at [facility] in October. documented in this encounter Miscellaneous Notes * Scanned Note-Null - FINANCIAL ADVISOR TRAINEE, SCAN 2 - 08/10/2012 0658 EDT documented in this encounter Plan of Treatment Upcoming Encounters Date Type Department Care Team (Late st Contact Info) Description 12/29/2024 10:20 EST Office Visit [facility] Rheumatology & Immunology - [address] [address] Micaela Hoff MD [address] [place] [address], [address] [place] [address] documented as of this encounter Procedures Procedure Name Priority Date/Time Associated Diagnosis Comments HIV 1/2 ANTIGEN AND ANTIBODY, 4TH GENERATION STAT 07/31/2012 15:20 EDT control counseling TEST, URINE STAT 07/31/2012 15:17 EDT control counseling documented in this encounter Results * HIV 1/2 ANTIBODY (07/31/2012 15:20 EDT) HIV 1/2 Antibody Negative [facility] Comment: Reference Range: ??Negative Assayed utilizing [email or web address] chemiluminescent technology. Blood specimen (specimen) 07/31/2012 15:20 EDT 07/31/2012 15:30 EDT Sarah Solitario NP IMMUNOLOGY AND SEROLOGY ORDERABLES Performing Organization Address [facility] de Phone Number [facility] [address] [place] [address] * TEST, URINE (07/31/2012 15:17 EDT) Result- Test, Ur Negative [facility] Comment: NOTE: False negative results may occur in women who are beyond 5-8 weeks gestation. Diagnosis of should be based on a correlation of test results with typical clinical signs and symptoms. Performed at [facility] [place], [place] Urine specimen (specimen) URINE / Unknown 07/31/2012 15:17 EDT 07/31/2012 15:21 EDT aSrah Solitario NP URINALYSIS ORDERABLES Performing Organization Address [facility] de Phone Number [facility] [address] [place] [address] documented in this encounter Visit Diagnoses Diagnosis control counseling General counseling for initiation of other contraceptive measures documented in this encounter Discontinued Medications Medication Sig Discontinue Reason Start Date End Da te docusate sodium (COLACE) 100 mg capsule 100 mg daily as needed. Therapy completed 07/31/2012 documented as of this encounter Additional Health Concerns Infection Onset Date Last Indicated Resolved Time 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 Care Teams Psychiatric Nursing Aide Relationship Specialty Start Date End Date Ladonna Maurer PA [address] [place] [address] PCP - General 05/12/12 01/24/13 documented as of this encounter
--- OUTSIDE RECORDS SUMMARY | 2024-06-10 18:46 | XMS_ITS | Encounter Summary ---
Author Organization [facility] Address [address] [place] [address] Care Team Providers Care Flower Planter Name Role Phone None, Provider Primary Care Provider Unavailabl e Encounter Details Date Type Department Care Team (Late st Contact Info) Description 06/13/2014 Results Only [facility] Women's Services - [address] [address] Rehan Abarca MD [address] [place] [address] [place] [address] Social History Tobacco Use Types Packs/Day Years [...] 12/29/2024 10:20 EST Office Visit [facility] Rheumatology & Immunology - [address] [address] Micaela Hoff MD [address] [place] [address], [address] [place] [phone] documented as of this encounter Procedures Procedure Name Priority Date/Time Associated Diagnosis Comments FIRST INTEGRATED SCREEN Routine 06/13/2014 15:25 EDT documented in this encounter Results * FIRST INTEGRATED SCREEN (06/13/2014 15:25 EDT) First Integrated Screen to [facility] Sample sent to [facility] 06/13/2014 15:2 5 EDT 06/13/2014 16:17 EDT Rehan Abarca MD CHEMISTRY & BLOOD GA S ORDERABLES Performing Organization Address City/State/[facility] Co de Phone Number [facility] [address] [place] [address] documented in this encounter Visit Diagnoses Not on filedocumented in this encounter Additional Health Concerns Infection Onset Date Last Indicated Resolved Time 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 Care Teams Flower Planter Relationship Specialty Start Date End Date None, Provider PCP - General 06/09/14 03/01/15 documented as of this encounter
--- OUTSIDE RECORDS SUMMARY | 2024-06-10 18:46 | XMS_ITS | Encounter Summary ---
Author Organization [facility] Address [address] [place] [address] Care Team Providers Care Director News Name Role Phone Conor Angel MD Primary Care Provider [phone] None, Provider Primary Care Provider Unavailabl e Reason for Referral * SUPERVISOR PROP MAKING (Routine) - Closed Specialty Diagnoses / Procedures Referred By Ehsan patel Referred To Contact Diagnoses Supervision of other high-risk (V23.89) Procedures PENITENTIARY INTEGRATED SCREEN Shanique Howell MD [address] [facility], [address] [place] [address] Referral ID Status Reason Start Date Expiration Date Visits Re quested Visits Authorized [id number] Closed 05/11/2014 1 1 Reason for Visit * Reason Comments Advice Only * Consult (Routine) - Specialty Report Received Specialty Diagnoses / Procedures Referred By Ehsan t Referred To Contact Obstetrics Diagnoses History of loss in prior , currently Duyen Haro RN [facility] Ep4 Ob/Mfm [address] [place] [address] Referral ID Status Reason Start Date Expiration Date Visits Requested Visits Authorized [id number] Specialty Report Received Specialty Services Required 04/26/2014 1 1 Encounter Details Date Type Department Care Team ([facility] st Contact Info) Description 05/11/2014 15:00 EDT Initial consult [facility] Obstetrics & Midwifery - [address] [address] Shanique Howell MD [address] [place] [address], [address] [place] [address] Supervision of other high-risk (V23.89) (Primary Dx) Discharge Disposition: Auto Discharge Social History Tobacco [...] Sign Reading Time Taken Comments Blood Pressure 92/60 05/11/2014 1501 EDT Pulse - - Temperature - - Respiratory Rate - - Oxygen Saturation - - Inhaled Oxygen Concentration - - Weight 79.1 kg (174 lb 6.4 oz) 05/11/2014 1501 E DT Height 170.2 cm (5' 7) 05/11/2014 1501 EDT Body Mass Index 27.31 05/11/2014 1501 EDT documented in this encounter Discharge Diagnoses Diagnosis V23.89 SUPERVISION OF OTHER HIGH-RISK [ICD-9-CM] documented in this encounter Discharge Disposition Disposition Code Departure Means Destination Auto Discharge documented in this encounter Progress Notes * Shanique Howell MD - 06/30/2014 1402 EDT Dear Rehan: Thank you for referring your patient, Teri Smith, to the [facility] on May 11, just prior to your joining us, for a consultation regarding her history of a prior 20-week loss, which occurred in the setting of a known uterine septum, which was corrected afterwards with a subsequent full- term delivery. As you know, Ms Smith is a 34-year-old 4, para 1-0-2-1, who is currently at 7 weeks and 6 days. Her history is as follows: Past Medical History: Hypothyroidism for which she is on 100 mcg of Synthroid. This has been increased from her prepregnancy 88 mcg, GERD and anxiety. Surgical History: A hysteroscopic uterine septum resection. Medications: Include the 100 mcg of Synthroid and omeprazole. ALLERGIES: No known drug allergies Family History: None. 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 This was after her 20-week PPROM delivery. Obstetric History: Again, in 2002, Ms Smith had a PPROM at 20 weeks and delivered. There was a question of infection and antibiotics were given, though it was never clarified as to whether or not Malcolm had chorioamnionitis. In 2003, she underwent her uterine septoplasty. In 2006, she had a term vaginal delivery of an 8 pound 1 ounce . Of note, she was given vaginal progesterone in that . Assessment and Plan: In summary, Ms Smith is a 34-year-old 4, para 1-0-2-1, who is currently and 7 +6 weeks along. Ms Smith has an obstetric history complicated by a 20-week PPROM loss followed by a uterine septoplasty and in 2006 she went on to have a full-term vaginal delivery,though with vaginal progesterone treatment. We discussed with Ms Smith that she would not be a candidate for vaginal progesterone without cervical shortening, but that given her history, she is in fact a candidate for IM progesterone. Given her subsequent full-term if she wanted to hold on progesterone and simply go forward with cervical length assessments via ultrasound with treatment with ultrasound for short cervix, that would beappropriate; however, starting progesterone at 16 weeks and following cervical lengths while already on the progesterone would also be appropriate. She prefers the latter. In terms of her hypothyroidism, she has already had her Synthroid dose increased appropriately. I would recommend checking thyroid function tests every 6 to 8 weeks. I discussed with her that we would recommend she go back to her baseline prepregnancy Synthroid dosing immediately after delivery. Of note, Ms Smith desires a tubal ligation with this and will need the appropriate consent forms signed later as progresses. At the end of the visit Ms Smith has no further questions or concerns. Thank you for referring your patient in consultation. Please do not hesitate to contact me with anyquestions or concerns. Serial cervical length assessments have been ordered through the diagnostic center and an IM progesterone prescription has been on written. Shanique Howell MD 30 minutes was spent in face to face discussion with Ms. Smith regarding the above assessment and plan. documented in this encounter Plan of Treatment Upcoming Encounters Date Type Department Care Team (Late st Contact Info) Description 12/29/2024 10:20 EST Office Visit [facility] Rheumatology & Immunology - [address] [address] Micaela Hoff MD [address] [place] [address], [address] [place] [address] documented as of this encounter Procedures Procedure Name Priority Date/Time Associated Diagnosis Comments PENITENTIARY INTEGRATED SCREEN Routine 06/13/2014 14:17 EDT Supervision of other high-risk (V23.89) documented in this encounter Results * PENITENTIARY INTEGRATED SCREEN (06/13/2014 14:17 EDT) Anatomical Region Laterality Modality Other 06/13/2014 14:1 7 EDT 06/13/2014 15:05 EDT Narrative 06/13/2014 15:05 EDT Indication: Nuchal translucency screening. History: Age: 34 years. : 4 Para: 2. Previous pregnancies: Children born at term: 1. Children born : 1. Abortions: 1. Living children: 1. Current : Pre- data: Weight 160 lbs. Height 5 ft 7 ins. BMI 25.1. Obstetric History: Previous complications: stillbirth @20 weeks. Mode of last delivery: Vaginal Delivery. Dating: LMP: 03/17/2014 EDC: 12/22/2014 GA by LMP: 12w4d Current Scan on: 06/13/2014 EDC: 12/17/2014 GA by current scan: 13w2d Best Overall Assessment: 05/11/2014 EDC: 12/22/2014 Assessed GA: 12w4d The calculation of the gestational age by current scan was based on CRL. The Best Overall Assessment is based on the LMP. First Trimester Scan: Sanford gestation. Biometry: CRL 70.9 mm 90th% 13w2d (12w1d to 14w2d) NT 2.60 mm Additional Markers for Risk Assessment: Nasal bone present. ?? Tricuspid flow not examined. ??Ductus Venosus (a-wave): Not examined. heart activity: Present. heart rate: 151 bpm. Summary of Ultrasound Findings: Transabdominal US. U/S machine: [employer] e8. U/S view: good. Report Summary: Impression: NOTE: This study was ordered as an NT ONLY so maternal and anatomy assessments were not performed. [address]19 Nuchal translucency measurement This is a sanford gestation. Nuchal translucency is 2.6 mm. Omphalocele is not present. To complete the integrated screen, second trimester serum must be drawn and sent to [facility], preferably at 15-16 weeks'. Recommendations: Follow-up as clinically indicated. Growth Overview: Date GA BPD [mm] HC [mm] AC [mm] FL [mm] HUM [mm] EFW GP 05/11/2014 7 + 6 ... ... ... ... ... ... ... 06/13/2014 12 + 4 ... ... ... ... ... ... ... Procedure Note 06/13/2014 Indication: Nuchal translucency screening. History: Age: 34 years. : 4 Para: 2. Previous pregnancies: Children born at term: 1. Children born : 1. Abortions: 1. Living children: 1. Current : Pre- data: Weight 160 lbs. Height 5 ft 7 ins. BMI 25.1. Obstetric History: Previous complications: stillbirth @20 weeks. Mode of last delivery: Vaginal Delivery. Dating: LMP: 03/17/2014 EDC: 12/22/2014 GA by LMP: 12w4d Current Scan on: 06/13/2014 EDC: 12/17/2014 GA by current scan: 13w2d Best Overall Assessment: 05/11/2014 EDC: 12/22/2014 Assessed GA: 12w4d The calculation of the gestational age by current scan was based on CRL. The Best Overall Assessment is based on the LMP. First Trimester Scan: Sanford gestation. Biometry: CRL 70.9 mm 90th% 13w2d (12w1d to 14w2d) NT 2.60 mm Additional Markers for Risk Assessment: Nasal bone present. Tricuspid flow not examined. Ductus Venosus (a-wave): Not examined. heart activity: Present. heart rate: 151 bpm. Summary of Ultrasound Findings: Transabdominal US. U/S machine: [employer] e8. U/S view: good. Report Summary: Impression: NOTE: This study was ordered as an NT ONLY so maternal and anatomy assessments were not performed. [address]273 Nuchal translucency measurement This is a sanford gestation. Nuchal translucency is 2.6 mm. Omphalocele is not present. To complete the integrated screen, second trimester serum must be drawn and sent to [facility], preferably at 15-16 weeks'. Recommendations: Follow-up as clinically indicated. Growth Overview: Date GA BPD [mm] HC [mm] AC [mm] FL [mm] HUM [mm] EFW GP 05/11/2014 7 + 6 ... ... ... ... ... ... ... 06/13/2014 12 + 4 ... ... ... ... ... ... ... Shanique Howell MD [facility] PENITENTIARY OR DERABLES documented in this encounter Visit Diagnoses Diagnosis Supervision of other high-risk (V23.89)- Primary Supervision of other high-risk documented in this encounter Additional Health Concerns Infection Onset Date Last Indicated Resolved Time 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 Care Teams Director News Relationship Specialty Start Date End Date Conor Angel MD [address] [place] [address] PCP - General 02/07/14 06/08/14 None, Provider PCP - General 06/09/14 03/01/15 documented as of this encounter
--- OUTSIDE RECORDS SUMMARY | 2024-06-10 18:46 | XMS_ITS | Encounter Summary ---
Author Organization [facility] Address [address] [place] [address] Care Team Providers Care Fisher Terrapin Name Role Phone Conor Angel MD Primary Care Provider [phone] Reason for Visit * Reason Onset Date Comments Labs Only 02/20/2014 Encounter Details Date Type Department Care Team (Late st Contact Info) Description 02/20/2014 Telephone [facility] - [facility] [address] [place] [address] Cecilia Hines, RN [address] [place] [address] Labs Only Social History Tobacco Use Types Packs/Day Years [...] encounter Miscellaneous Notes * Telephone Encounter - Cecilia Hines - 02/20/2014 1512 EDT TC- patient s/p chemical , 4..14 HCG- 6, repeat 4.14- <2 at [facility] in [place]. Reviewed with patient- verbalized understanding. Will follow up as necessary. documented in this encounter Plan of Treatment Upcoming Encounters Date Type Department Care Team (Late st Contact Info) Description 12/29/2024 10:20 EST Office Visit [facility] Rheumatology & Immunology - [facility] [address] [place], [place] [address] Micaela Hoff MD [address] [facility], [address] [place] [phone] documented as of this encounter Visit Diagnoses Not on filedocumented in this encounter Additional Health Concerns Infection Onset Date Last Indicated Resolved Time 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 Care Teams Fisher Terrapin Relationship Specialty Start Date End Date Conor Angel MD [address] [place] [address] PCP - General 02/07/14 06/08/14 documented as of this encounter
--- OUTSIDE RECORDS SUMMARY | 2024-06-10 18:46 | XMS_ITS | Encounter Summary ---
Author Organization [facility] Address [address] [place] [address] Care Team Providers Care Debone Processing Supervisor Name Role Phone None, Provider Primary Care Provider Unavailabl e Encounter Details Date Type Department Care Team (Late st Contact Info) Description 06/13/2014 Phlebotomy Only [address] [address] [employer], Outpatient Hypothyroidism Social History Tobacco Use Types [...] Description 12/29/2024 10:20 EST Office Visit [facility] Rheumatology & Immunology [address] [phone] Micaela Hoff MD [address] [facility], [address] [place] [address] documented as of this encounter Procedures Procedure Name Priority Date/Time Associated Diagnosis Comments TSH Routine 06/13/2014 15:23 EDT Hypothyroidism T4 FREE Routine 06/13/2014 15:23 EDT Hypothyroidism documented in this encounter Results * T4 FREE (06/13/2014 15:23 EDT) Free T4 1.4 0.8 - 1.8 ng/dl [facility] Blood specimen (specimen) 06/13/2014 15:23 EDT 06/13/2014 16:22 EDT Rehan Abarca MD CHEMISTRY & BLOOD GA S ORDERABLES Performing Organization Address [facility] de Phone Number [facility] [address] [place] [address] * TSH (06/13/2014 15:23 EDT) TSH 1.01 0.35 - 5.00 uIU/ml [facility] Blood specimen (specimen) 06/13/2014 15:23 EDT 06/13/2014 16:22 EDT Rehan Abarca MD CHEMISTRY & BLOOD GA S ORDERABLES Performing Organization Address [facility] de Phone Number [facility] [address] [place] [address] documented in this encounter Visit Diagnoses Diagnosis Hypothyroidism Unspecified hypothyroidism documented in this encounter Additional Health Concerns Infection Onset Date Last Indicated Resolved Time 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 Care Teams Debone Processing Supervisor Relationship Specialty Start Date End Date None, Provider PCP - General 06/09/14 03/01/15 documented as of this encounter
--- OUTSIDE RECORDS SUMMARY | 2024-06-10 18:46 | XMS_ITS | Encounter Summary ---
Author Organization [facility] Address [address] [place] [address] Care Team Providers Care Team Lead Name Role Phone Yair Dow MD Primary Care Provider [phone] Reason for Visit * Reason Comments Pharyngitis Pt arrives via triag e with c/o sore throat. Pt states that she has white spots on back of throat. Rapid Strep negative through [facility]. Pt in NAD. No drooling noted. Encounter Details Date Type Department Care Team (Late st Contact Info) Description 03/04/2012 16:12 EDT - 03/04/2012 18:50 EDT Emergency [facility] - [facility] [address] [place], [place] [address] Jude Riley PA-C [address] [address] Emergency, MD Fede Tonsillitis Discharge Disposition: Home or Self Care Social [...] Sign Reading Time Taken Comments Blood Pressure 133/76 03/04/2012 1615 EDT Pulse 67 03/04/2012 1615 EDT Temperature 37 ??C (98.6 ??F) 03/04/2012 1615 EDT Respiratory Rate 16 03/04/2012 1615 EDT Oxygen Saturation 100% 03/04/2012 1615 EDT Inhaled Oxygen Concentration - - Weight 68 kg (150 lb) 03/04/2012 1615 EDT Height 170.2 cm (5' 7) 03/04/2012 1615 EDT Body Mass Index 23.49 03/04/2012 1615 EDT documented in this encounter Discharge Instructions * Discharge Instructions* Jude Riley - 03/04/2012 18:33 EDT This is, in my opinion, a viral throat infection. However, if you wish to use antibiotics, I have provided you with a prescription so you won't have to return if you feel worse Use Tylenol or Motrin for pain/fever Return here with any worsening symptoms documented in this encounter Medications at Time of Discharge Medication Sig Dispensed Refills Start Date End Date omeprazole (PRILOSEC) 40 mg capsuleIndications:Peptic ulcer disease Take 1 Cap by mouth daily. 90 Cap 4 03/02/2012 Cholecalciferol, Vitamin D3, (VITAMIN D) 2,000 unit Cap Take by mouth daily. 01/23/2011 012 fluconazole (DIFLUCAN) 150 mg tabletIndications:UTI (lower urinary tract infection) Take 1 Tab by mouth daily. 2 Tab 0 03/02/2012 05/12/2012 ibuprofen (MOTRIN) 600 mg tabletIndications:Pharyng itis Take 1 Tab by mouth every 6 hours as needed for Pain. 60 Tab 0 03/02/2012 05/12/2012 levothyroxine (SYNTHROID) 88 mcg tablet TAKE ONE TABLET BY MOUTH EVERY DAY 30 Tab 11 12/20/2011 04/26/2014 naproxen sodium (ALEVE) 220 mg Cap Take by mouth. 05/12/2012 penicillin v potassium (VEETID) 500 mg tablet Take 1 Tab by mouth 3 times daily. 21 Each 0 03/04/2012 05/12/2012 sulfamethoxazole-trimetho prim (BACTRIM/C0-TRIMOXAZOLE DS) 800-160 mg per tabletIndications:UTI (lower urinary tract infection) Take 1 Tab by mouth 2 times daily for 7 days. 14 Tab 0 03/02/2012 03/09/2012 documented as of this encounter Ordered Prescriptions Prescription Sig Dispensed Refills Start Date End Da te penicillin v potassium (VEETID) 500 mg tablet Take 1 Tab by mouth 3 times daily. 21 Each 0 03/04/2012 05/12/2012 documented in this encounter Discharge Disposition Disposition Code Departure Means Destination Home or Self Care Car Home documented in this encounter ED Notes * Jude Riley - 03/09/2012 1603 EDT DOS: 03/04/2012 Chief Complaint Patient presents with ??? Pharyngitis Pt arrives via triage with c/o sore throat. Pt states that she has white spots on back of throat. Rapid Strep negative through [facility]. Pt in NAD. No drooling noted. The patient is a 31 y.o. female who presents today with Pharyngitis The history is provided by the patient. Pharyngitis This is a new problem. The current episode started 2 days ago. The problem has been gradually worsening. There has been no fever. Associated symptoms include cough. Pertinent negatives include no headaches, no shortness of breath, no trouble swallowing and no stiff neck. Review of Systems Constitutional: Negative for fever and chills. HENT: Positive for sore throat. Negative for trouble swallowing, neck stiffness, dental problem andsinus pressure. Eyes: Negative for visual disturbance. Respiratory: Positive for cough. Negative for shortness of breath. Cardiovascular: Negative for chest pain. Gastrointestinal: Negative for abdominal pain. Genitourinary: Negative for dysuria. Musculoskeletal: Negative for back pain. Skin: Negative for rash. Neurological: Negative for headaches. Psychiatric/Behavioral: Negative for confusion. All other systems reviewed and are negative. Past Medical History Diagnosis Date ??? Obese ??? History of tobacco use ??? Thyroid disease Past Surgical History Procedure Date ??? Upper gastrointestinal endoscopy 09/03/2010 ??? [place] tooth extraction No Known Allergies History Substance Use Topics ??? Smoking status: Current Everyday Smoker -- 1.0 packs/day ??? Smokeless tobacco: Never Used ??? Alcohol Use: 10.0 oz/week 2 Glasses of wine per week rare Family History Problem Relation Age of Onset ??? High Blood Pressure Mother brain aneurysm ??? Stroke Mother ??? Heart Disease Father 50 [place] ??? Diabetes Father ??? Thyroid Cancer/Nodule Maternal Aunt Cancer ??? Heart Disease Maternal Grandmother [place] ??? Diabetes Maternal Grandmother ??? Cancer Maternal Aunt thyroid Vital Signs Temp: 37 ??C (98.6 ??F) Temp src: Tympanic Pulse: 67 Resp: 16 SpO2: 100 % BP: 133/76 mmHg BP Device: BP Machine O2 Device: None (Room air) Physical Exam Nursing note and vitals reviewed. Constitutional: She is oriented to person, place, and time. She appears well- developed and well-nourished. HENT: Head: Normocephalic and atraumatic. Nose: Nose normal. moderate injection in the posterior oropharynx without exudate noted. Uvula midline. No peritonsillar abscess bilaterally Eyes: Pupils are equal, round, and reactive to light. Neck: Normal range of motion. Neck supple. No tracheal deviation present. Cardiovascular: Normal rate, regular rhythm and normal heart sounds. Pulmonary/Chest: Breath sounds normal. No respiratory distress. Neurological: She is alert and oriented to person, place, and time. She has normal strength. No sensory deficit. Skin: No rash noted. Psychiatric: She has a normal mood and affect. Radiology orders: None Procedures ED Course: A medical screening exam was performed. Treated with course of penicillin. No evidence of tonsillar abscess or other complication Patient requesting narcotic medication for pain control, I do not feel that this is indicated. Recommended OTC NSAIDs Disposition: Discharged The patient's pain was managed to an adequate level weighing risk vs. benefit of further medications. Upon departure from the Emergency Department, the patient's pain was 9 on a zero to ten scale. Condition at departure from the Emergency Department: good Discharge Prescriptions New Prescriptions PENICILLIN V POTASSIUM (VEETID) 500 MG TABLET Take 1 Tab by mouth 3 times daily. MDM Number of Diagnoses or Management Options Tonsillitis: Diagnosis management comments: 3 1. Tonsillitis PCP: Theresa, Doctor, MD Tate Bradley 03/09/2012 16:03 documented in this encounter Miscellaneous Notes * Scanned Note-Null - TECHNICAL RESEARCH SCIENTIST, SCAN 2 - 03/08/2012 3925 EDT documented in this encounter Plan of Treatment Upcoming Encounters Date Type Department Care Team (Late st Contact Info) Description 12/29/2024 10:20 EST Office Visit [facility] Rheumatology & Immunology - [address] [address] Micaela Hoff MD [address] [place] [address] [address] [place] [phone] documented as of this encounter Visit Diagnoses Diagnosis Tonsillitis Acute tonsillitis documented in this encounter Additional Health Concerns Infection Onset Date Last Indicated Resolved Time 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 Care Teams Team Lead Relationship Specialty Start Date End Date Yair Dow MD [address] [place] [phone] PCP - General 06/03/11 03/08/12 documented as of this encounter
--- OUTSIDE RECORDS SUMMARY | 2024-06-10 18:46 | XMS_ITS | Encounter Summary ---
Author Organization [facility] Address [address] [place] [address] Care Team Providers Care Computer Engineering Technologist Name Role Phone None, Provider Primary Care Provider Unavailabl e Reason for Referral * MULTIPLE COIL WINDER (STAT) - Closed Specialty Diagnoses / Procedures [facility] To Contact Diagnoses with history of pre-term labor Procedures PRISON TRANSVAGINAL Soledad Crawley RN Referral ID Status Reason Start Date Expiration Date Visits Re quested Visits Authorized [id number] Closed 06/29/2014 1 1 Reason for Visit * Reason Onset Date Comments Routine Visit 06/29/2014 Encounter Details Date Type Department Care Team (Late Contact Info) Description 06/29/2014 Orders Only [facility] Obstetrics & Midwifery [address] [address] Soledad Crawley RN with history of pre-term labor (Primary Dx) Social History Tobacco Use Types [...] Info) Description 12/29/2024 10:20 EST Office Visit [facility] Rheumatology & Immunology - [address] [id number] Micaela Hoff MD [address] [place] [address], [address] [place] [phone] documented as of this encounter Procedures Procedure Name Priority Date/Time Associated Diagnosis Comments PRISON TRANSVAGINAL Routine 06/29/2014 16:4 1 EDT with history of pre-term labor documented in this encounter Results * PRISON TRANSVAGINAL (06/29/2014 16:41 EDT) Anatomical Region Laterality Modality Other 06/29/2014 16:4 1 EDT 07/18/2014 11:58 EDT Narrative 07/18/2014 11:58 EDT Addendum Begins Indication: Complaints of thick green/bloody mucous discharge. History (Previous ): complications: Hx of PTD [...] LMP: 03/17/2014 EDC: 12/22/2014 GA by LMP: [email or web address] Best Overall Assessment: 05/11/2014 EDC: 12/22/2014 Assessed GA: 14w6d The Best Overall Assessment is based on the LMP. General Evaluation: heart activity: Present. heart rate: 144 bpm. Placenta: Posterior partial previa. Anatomy Scan: Vazquez gestation. Summary of Ultrasound Findings: Transvaginal US. U/S machine: MX Logic e8. U/S view: good. Maternal Structures: Cervix: normal. Finding: mucous seen within. No funneling. Cervical length: 27 mm Cervical length with fundal pressure: 22 mm. Cul de Sac / Pouch of Bairon: trace of free fluid visible. Report Summary: Impression: [id number] Transvaginal obstetrical scan A transvaginal scan was performed. The cervical length was normal at 2.2 cm without beaking/funneling at rest or with transfundal pressure. The placenta is posterior and covering the internal cervical os. Recommendations: Follow-up with cervical length at 16 and 18 weeks. This follow-up has been scheduled. Growth Overview: Date GA BPD [mm] HC [...] ... ... ... ... ... Addendum Ends Addendum Begins Indication: Complaints of thick green/bloody mucous discharge. History (Previous ): complications: Hx of PTD [...] LMP: 03/17/2014 EDC: 12/22/2014 GA by LMP: [email or web address] Best Overall Assessment: 05/11/2014 EDC: 12/22/2014 Assessed GA: 14w6d The Best Overall Assessment is based on the LMP. General Evaluation: heart activity: Present. heart rate: 144 bpm. Placenta: Posterior partial previa. Anatomy Scan: Vazquez gestation. Summary of Ultrasound Findings: Transvaginal US. U/S machine: MX Logic e8. U/S view: good. Maternal Structures: Cervix: normal. Finding: mucous seen within. No funneling. Cervical length: 27 mm Cervical length with fundal pressure: 22 mm. Cul de Sac / Pouch of Bairon: trace of free fluid visible. Report Summary: Impression: [id number] Transvaginal obstetrical scan A transvaginal scan was performed. The cervical length was normal at 2.2 cm without beaking/funneling at rest or with transfundal pressure. The placenta is posterior and covering the internal cervical os. Recommendations: Follow-up with cervical length at 16 and 18 weeks. This follow-up has been scheduled. Growth Overview: Date GA BPD [mm] HC [mm] AC [mm] FL [mm] HUM [mm] EFW GP 05/11/2014 7 + 6 ... ... ... ... ... ... ... 06/13/2014 12 + 4 ... ... ... ... ... ... ... 06/29/2014 14 + 6 ... ... ... ... ... ... ... 07/11/2014 16 + 4 ... ... ... ... ... ... ... Addendum Ends Indication: Complaints of thick green/bloody mucous discharge. History (Previous ): complications: Hx of PTD [...] LMP: 03/17/2014 EDC: 12/22/2014 GA by LMP: [email or web address] Best Overall Assessment: 05/11/2014 EDC: 12/22/2014 Assessed GA: 14w6d The Best Overall Assessment is based on the LMP. General Evaluation: heart activity: Present. heart rate: 144 bpm. Placenta: Posterior partial previa. Anatomy Scan: Vazquez gestation. Summary of Ultrasound Findings: Transvaginal US. U/S machine: MX Logic e8. U/S view: good. Maternal Structures: Cervix: normal. Finding: mucous seen within. No funneling. Cervical length: 27 mm Cervical length with fundal pressure: 22 mm. Cul de Sac / Pouch of Baiorn: trace of free fluid visible. Report Summary: Impression: [id number] Transvaginal obstetrical scan A transvaginal scan was performed. The cervical length was normal at 2.2 cm without beaking/funneling at rest or with transfundal pressure. The placenta is posterior and covering the internal cervical os. Recommendations: Follow-up with cervical length at 16 and 18 weeks. This follow-up has been scheduled. Growth Overview: Date GA BPD [mm] HC [mm] AC [mm] FL [mm] HUM [mm] EFW GP 05/11/2014 7 + 6 ... ... ... ... ... ... ... 06/13/2014 12 + 4 ... ... ... ... ... ... ... 06/29/2014 14 + 6 ... ... ... ... ... ... ... Procedure Note 07/18/2014 Addendum Begins Indication: Complaints of thick green/bloody mucous discharge. History (Previous ): complications: Hx of PTD [...] LMP: 03/17/2014 EDC: 12/22/2014 GA by LMP: 14w6d Best Overall Assessment: 05/11/2014 EDC: 12/22/2014 Assessed GA: 14w6d The Best Overall Assessment is based on the LMP. General Evaluation: heart activity: Present. heart rate: 144 bpm. Placenta: Posterior partial previa. Anatomy Scan: Vazquez gestation. Summary of Ultrasound Findings: Transvaginal US. U/S machine: MX Logic e8. U/S view: good. Maternal Structures: Cervix: normal. Finding: mucous seen within. No funneling. Cervical length: 27 mm Cervical length with fundal pressure: 22 mm. Cul de Sac / Pouch of Bairon: trace of free fluid visible. Report Summary: Impression: [id number] Transvaginal obstetrical scan A transvaginal scan was performed. The cervical length was normal at 2.2 cm without beaking/funneling at rest or with transfundal pressure. The placenta is posterior and covering the internal cervical os. Recommendations: Follow-up with cervical length at 16 and 18 weeks. This follow-up has been scheduled. Growth Overview: Date GA BPD [mm] HC [...] ... ... ... ... ... Addendum Ends Addendum Begins Indication: Complaints of thick green/bloody mucous discharge. History (Previous ): complications: Hx of PTD [...] LMP: 03/17/2014 EDC: 12/22/2014 GA by LMP: 14w6d Best Overall Assessment: 05/11/2014 EDC: 12/22/2014 Assessed GA: 14w6d The Best Overall Assessment is based on the LMP. General Evaluation: heart activity: Present. heart rate: 144 bpm. Placenta: Posterior partial previa. Anatomy Scan: Vazquez gestation. Summary of Ultrasound Findings: Transvaginal US. U/S machine: [employer]IDA [employer] e8. U/S view: good. Maternal Structures: Cervix: normal. Finding: mucous seen within. No funneling. Cervical length: 27 mm Cervical length with fundal pressure: 22 mm. Cul de Sac / Pouch of Bairon: trace of free fluid visible. Report Summary: Impression: [id number] Transvaginal obstetrical scan A transvaginal scan was performed. The cervical length was normal at 2.2 cm without beaking/funneling at rest or with transfundal pressure. The placenta is posterior and covering the internal cervical os. Recommendations: Follow-up with cervical length at 16 and 18 weeks. This follow-up has been scheduled. Growth Overview: Date GA BPD [mm] HC [mm] AC [mm] FL [mm] HUM [mm] EFW GP 05/11/2014 7 + 6 ... ... ... ... ... ... ... 06/13/2014 12 + 4 ... ... ... ... ... ... ... 06/29/2014 14 + 6 ... ... ... ... ... ... ... 07/11/2014 16 + 4 ... ... ... ... ... ... ... Addendum Ends Indication: Complaints of thick green/bloody mucous discharge. History (Previous ): complications: Hx of PTD [...] LMP: 03/17/2014 EDC: 12/22/2014 GA by LMP: 14w6d Best Overall Assessment: 05/11/2014 EDC: 12/22/2014 Assessed GA: 14w6d The Best Overall Assessment is based on the LMP. General Evaluation: heart activity: Present. heart rate: 144 bpm. Placenta: Posterior partial previa. Anatomy Scan: Vazquez gestation. Summary of Ultrasound Findings: Transvaginal US. U/S machine: MX Logic e8. U/S view: good. Maternal Structures: Cervix: normal. Finding: mucous seen within. No funneling. Cervical length: 27 mm Cervical length with fundal pressure: 22 mm. Cul de Sac / Pouch of Bairon: trace of free fluid visible. Report Summary: Impression: [id number] Transvaginal obstetrical scan A transvaginal scan was performed. The cervical length was normal at 2.2 cm without beaking/funneling at rest or with transfundal pressure. The placenta is posterior and covering the internal cervical os. Recommendations: Follow-up with cervical length at 16 and 18 weeks. This follow-up has been scheduled. Growth Overview: Date GA BPD [mm] HC [mm] AC [mm] FL [mm] HUM [mm] EFW GP 05/11/2014 7 + 6 ... ... ... ... ... ... ... 06/13/2014 12 + 4 ... ... ... ... ... ... ... 06/29/2014 14 + 6 ... ... ... ... ... ... ... Robb Nam MD Fanny [facility] ORDER HEATH documented in this encounter Visit Diagnoses Diagnosis with history of pre-term labor- Primary documented in this encounter Additional Health Concerns Infection Onset Date Last Indicated Resolved Time 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 Care Teams Computer Engineering Technologist Relationship Specialty Start Date End Date None, Provider PCP - General 06/09/14 03/01/15 documented as of this encounter
--- OUTSIDE RECORDS SUMMARY | 2024-06-10 18:46 | XMS_ITS | Encounter Summary ---
Author Organization [facility] Address [address] [place] [address] Care Team Providers Care Ammonia Technician Name Role Phone Conor Angel MD Primary Care Provider Reason for Visit * Reason Onset Date Comments 04/17/2014 Encounter Details Date Type Department Care Team (Late st Contact Info) Description 04/17/2014 Telephone [facility] Women's Services - [address] [address] Brittani Black, RN Social History Tobacco Use Types Packs/Day [...] Dispensed Refills Start Date End Da te multivitamin vit-iron fumarate-FA (STUARTNATAL) 27 mg iron- 1 mg tablet tablet Take 1 Tab by mouth daily. 90 Tab 3 04/17/2014 04/28/2014 documented in this encounter Miscellaneous Notes * Telephone Encounter - Brittani Black, JANNA - 04/17/2014 1103 EDT .Initial Appt Screening Form Best Contact Number: [phone] [facility] Provider: BRITTANY/ LMP/Pt estimate gestational age: LMP- 03/17/2014 Regular cycles + home test 6/14/14 G/P: P: 1021 HEIGHT: 67 WEIGHT AT LMP: 160 lb Blood type (pt provided): A Positive Current medications (prescribed and not prescribed): 88 mcg synthroid, 40 mg omeprazole, PNV- will send to pharmacy- [facility] Are you a smoker?: Quit- 04/15/14 On/off x 14 years 1 PPD Prior US with heartbeat? yes __x___no Risk Factors: YES NO Abd pain or vag bleeding? x Prior pelvic/tubal surgery or ruptured appendix? X uterine surgery- septum removal History of PID/GC/Chlamydia? x Prior tubal ? x Do you have an IUD in place now? x Do you have a history of infertility for >1 year? x Do you have a chronic medical illness: explain x Prior outcomes: Have you had problems with any prior pregnancies? 2002-Still born @ 20 weeks 2007- FT female- healthy 01/2014- chemical - had 1 cycle prior to conception Ultrasound scheduled: x no documented in this encounter Plan of Treatment Upcoming Encounters Date Type Department Care Team (Late st Contact Info) Description 12/29/2024 10:20 EST Office Visit [facility] Rheumatology & Immunology - [address] [address] Micaela Hoff MD [address] [facility], [address] [place] [address] documented as of this encounter Visit Diagnoses Not on filedocumented in this encounter Additional Health Concerns Infection Onset Date Last Indicated Resolved Time 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 Care Teams Ammonia Technician Relationship Specialty Start Date End Date Conor Angel MD [address] [place] [address] PCP - General 02/07/14 06/08/14 documented as of this encounter
--- OUTSIDE RECORDS SUMMARY | 2024-06-10 18:46 | XMS_ITS | Encounter Summary ---
Author Organization [facility] Address [address] [place] [address] Care Team Providers Care Bioinformatics Technician Name Role Phone Cara Arteaga MD Primary Care Provider Encounter Details Date Type Department Care Team (Late st Contact Info) Description 08/01/2013 Results Only [facility] Laboratory Services - [facility] [address] [place], [place] [address] Ladonna Maurer PA [address] [place] [id number] Social History Tobacco Use Types Packs/Day Years [...] 12/29/2024 10:20 EST Office Visit [facility] Rheumatology & Immunology - [facility] [address] [place], [place] [id number] Micaela Hoff MD [address] [facility], [address] [place] [phone] documented as of this encounter Procedures Procedure Name Priority Date/Time Associated Diagnosis Comments CYTOPATHOLOGY Routine 08/01/2013 0:00 EDT documented in this encounter Results * CYTOPATHOLOGY (08/01/2013 0:00 EDT) Pathologist [facility] Pathology Report: CYTOPATHOLOGY REPORT Reports generated via electronic interface contain original data; however they are lacking the format of the original report. Caution should be taken when reading/interpreti ng unformatted reports. Name: ? SEBASTIENTERI ? Accession #: ? [id number] : ? 1980 (Age: 33) ??F ?Collect Date: ? 08/01/2013 Location: ? [facility] ? Receive Date: ? 08/02/2013 Provider: ? LADONNA AVILA Copy to: ? CYTOLOGIC DIAGNOSIS: URINE, NOT OTHERWISE SPECIFIED, CYTOLOGIC EVALUATION: - ??Negative for malignant cells. See comment. ? COMMENT: ? Rare fungal organism morphologically consistent with deyanira species are also present. ?? Document reviewed and electronically signed by: ? TANA GARNETT MD Report Date: ??08/02/2013 17:29 By the signature above, the attending physician certifies that he/she has personally conducted a gross and/or microscopic examination of the described specimens and rendered or confirmed the above diagnosis. Specimen Type: ? Urine, NOS Clinical History: ? Microhematuria. ??clinical diagnosis code: ??599.72 ? Gross Description: ? 40ccs of clear yellow fluid were received and processed by selective cellular enhancement technique. ? End of Report [facility] 08/01/2013 08/02/2013 8:3 7 EDT Ladonna AVILA PATHOLOGY ORDERABLES [facility] [address] [place] [address] documented in this encounter Visit Diagnoses Not on filedocumented in this encounter Additional Health Concerns Infection Onset Date Last Indicated Resolved Time 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 Care Teams Bioinformatics Technician Relationship Specialty Start Date End Date Cara Arteaga MD [address] [place] [phone] PCP - General 01/25/13 02/06/14 documented as of this encounter
--- OUTSIDE RECORDS SUMMARY | 2024-06-10 18:46 | XMS_ITS | Encounter Summary ---
Author Organization [facility] Address [address] [place] [address] Care Team Providers Care Biomass Technician Name Role Phone Conor Angel MD Primary Care Provider [phone] Encounter Details Date Type Department Care Team (Late st Contact Info) Description 02/10/2014 Orders Only [facility] Women's Services - [address] [phone] Aura Bui RN [address] [place] [address] Miscarriage (Primary Dx) Social History Tobacco Use Types [...] Info) Description 12/29/2024 10:20 EST Office Visit [facility] Rheumatology & Immunology - [address] [address] Micaela Hoff MD [address] [place] [address], [address] [place] [phone] documented as of this encounter Visit Diagnoses Diagnosis Miscarriage- Primary Unspecified spontaneous without mention of complication documented in this encounter Additional Health Concerns Infection Onset Date Last Indicated Resolved Time 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 Care Teams Biomass Technician Relationship Specialty Start Date End Date Conor Angel MD [address] [phone] PCP - General 02/07/14 06/08/14 documented as of this encounter
--- OUTSIDE RECORDS SUMMARY | 2024-06-10 18:46 | XMS_ITS | Encounter Summary ---
Author Organization [facility] Address [address] [place] [address] Care Team Providers Care Community Aide Name Role Phone Conor Angel MD Primary Care Provider [phone] Reason for Referral * Consult (Routine) - Specialty Report Received Specialty Diagnoses / Procedures Referred By Ehsan patel Referred To Contact Obstetrics Diagnoses History of loss in prior , currently Duyen Haro RN [facility] Ep[facility] Ob/Mfm [address] [place] [address] Referral ID Status Reason Start Date Expiration Date Visits Requested Visits Authorized [id number] Specialty Report Received Specialty Services Required 04/26/2014 1 1 Question Answer Reason for Request: History of 20 week loss, uterine septum with subsequent septoplasty.2nd preg Rx vag prog,39 wk del Scheduling Comments (optional ? describe specific scheduling needs if applicable): within a month * BUSINESS RULES DEVELOPER (Routine) - Closed Specialty Diagnoses / Procedures Referred By Ehsan t Referred To Contact Diagnoses Supervision of other normal Procedures HOG RAISER US OB FIRST TRIMESTER TRANSVAGINAL Rehan Abarca MD [address] [place] [address] [place] [address] Referral ID Status Reason Start Date Expiration Date Visits Re quested Visits Authorized [id number] Closed 04/26/2014 1 1 Reason for Visit * Reason Comments Initial Visit Encounter Details Date Type Department Care Team (Late st Contact Info) Description 04/26/2014 14:45 EDT Initial [facility] - [address] [address] Rehan Abarca MD [address] [place] [address] [place] [address] GA: 5w5d Social History Tobacco Use Types Packs/Day Years [...] Sign Reading Time Taken Comments Blood Pressure 110/68 04/26/2014 1506 EDT Pulse - - Temperature - - Respiratory Rate - - Oxygen Saturation - - Inhaled Oxygen Concentration - - Weight 77.7 kg (171 lb 6.4 oz) 04/26/2014 1506 E DT Height - - Body Mass Index 26.85 02/10/2014 1229 EDT documented in this encounter Ordered Prescriptions Prescription Sig Dispensed Refills Start Date End Da te levothyroxine (SYNTHROID) 100 mcg tablet Take 1 Tab by mouth daily. 90 Tab 1 04/26/2014 documented in this encounter Progress Notes * Rehan Abarca MD - 04/28/2014 1539 EDT Subjective Teri Smith is a 34 y.o. at 5w5d here for a routine visit. Movement:None Contractions / Labor:None Vaginal Bleeding: None Leakage of Fluid: None Additional Notes: The patient presents at an early gestation. She admits to mild cramping an nausea. Denies vaginal bleeding. She has a history of hypothyroidism which is well controlled on 88mcg of synthroid. No symptoms of thyroid disease. Teri has a history of a 20 week loss during her first in relationship to a uterine septum. The septum was resected hysteroscopically (according to the patient). During her second , she was given vaginal progesterone and ultimately delivered at 39 weeks Objective Vitals: BP: 110/68 mmHg Weight : 77.747 kg (171 lb 6.4 oz) Movement: N/A Edema: absent Results for orders placed in visit on 04/26/14 (from the past 672 hour(s)) HIV 1/2 ANTIBODY Collection Time 04/26/14 16:15 Result Value Range HIV 1/2 Antibody Negative THYROID CASCADE Collection Time 04/26/14 16:15 Result Value Range TSH 2.39 0.35 - 5.00 uIU/ml HEPATITIS C ANTIBODY Collection Time 04/26/14 16:15 Result Value Range Hepatitis C Ab Negative HEMAGRAM Collection Time 04/26/14 16:15 Result Value Range WBC 7.83 4.0 - 12.4 K/cmm RBC 4.29 3.86 - 5.04 M/cmm Hemoglobin 13.1 11.6 - 15.2 gm/dl HCT 37.4 34.9 - 44.4 % MCV 87 81 - 98 fl MCH 30.6 26.7 - 33.3 pg MCHC 35.1 32.1 - 35.9 gm/dl PLT 227 141 - 320 K/cmm RDW-CV 12.2 11.7 - 14.6 % DIFFERENTIAL Collection Time 04/26/14 16:15 Result Value Range Neutrophils 62.3 45.5 - 79.7 % Lymphocytes 29.0 15.0 - 46.8 % Monocytes 7.1 1.8 - 12.0 % Eosinophils 1.1 0.6 - 6.9 % Basophils 0.5 0.2 - 1.4 % ABS Neutrophils 4.88 2.20 - 8.85 K/cmm ABS Lymphs 2.27 1.09 - 3.30 K/cmm ABS Monocytes 0.56 0.1 - 0.8 K/cmm ABS Eosinophils 0.08 0.03 - 0.61 K/cmm ABS Basophils 0.04 0.01 - 0.11 K/cmm Type of Diff: Automated RUBELLA IGG ANTIBODY Collection Time 04/26/14 16:15 Result Value Range Rubella IgG Ab Positive HEPATITIS B SURFACE ANTIGEN Collection Time 04/26/14 16:15 Result Value Range Hepatitis B Surface Ag Negative SYPHILIS SEROLOGY Collection Time 04/26/14 16:15 Result Value Range Syphilis Serology Interpretation: Nonreactive BB STUDY Collection Time 04/26/14 16:15 Result Value Range ABO and Rh Type A POS Antibody Screen Neg BACTERIAL CULTURE, URINE Collection Time 04/26/14 16:16 Result Value Range Specimen Description Urine Result Less than 10,000 CFU/ml Usual urogenital marquita. Report Status 04/28/2014 Final CHLAMYDIA/GC AMPLIFIED, THIN PREP Collection Time 04/26/14 16:11 Result Value Range Specimen Description Cervix, ThinPrep vial Result-Chlamydia Amp Probe Value: No Chlamydia trachomatis DNA detected by coordinate measuring machine technician mediated amplification. Result-GC Amp Probe Value: No Neisseria gonorrhoeae DNA detected by coordinate measuring machine technician mediated amplification. TYPE AND SCREEN Collection Time 04/26/14 16:44 Result Value Range ABO A Rh Factor Positive Antibody Screen Negative Assessment 34 y.o. at 6w0d here for a routine visit. Patient Active Problem List Diagnosis ??? Obstructive sleep apnea syndrome ??? Mena's thyroiditis ??? Tobacco use disorder ??? Palpitations ??? Depressive disorder, not elsewhere classified ??? Cervical high risk HPV (human papillomavirus) test positive ??? with history of pre-term labor ??? Thyroid dysfunction, antepartum Plan History of a 20 week delivery During the patient's last she was given vaginal progesterone to prevent recurrent pretermdelivery. Studies have shown that vaginal progesterone is not effective for prevention without a short cervix. It's unclear whether she needs progesterone during this since her loss maybe related to a corrected uterine septum. Minimally following transvaginal cervical length between 16-24weeks would be helpful. Will obtain MFM consult to determine the need for 17-OH-P IM during this . The patient will have a dating ultrasound at her next visit. Hypothyroidism The patient has been followed closely for her hypothyroidism and currently takes 88mcg daily. Will increase to 100mcg because of and measuring TSH today and monthly until 20 weeks. Cervical Cancer Screening The patient has a history of a negative cytology with positive HR HPV pap in 2011. Repeat cotestingordered today. History of tobacco use The patient stopped smoking when she discovered that she was . Encouraged her to continue not to smoke. Discussed the signs and symptoms of pre-/term labor and when to call the office. Follow-up in 4 weeks Rehan Abarca MD documented in this encounter Plan of Treatment Upcoming Encounters Date Type Department Care Team (Late st Contact Info) Description 12/29/2024 10:20 EST Office Visit [facility] Rheumatology & Immunology - [address] [address] Micaela Hoff MD [address] [place] [address], [address] [place] [address] Scheduled Referrals Name Type Priority Associated Diagnoses Orde r Schedule AMB CONS/FOLLOW UP MATERNAL MEDICINE Outpatient Referral Routine History of loss in prior , currently Ordered: 04/26/2014 documented as of this encounter Procedures Procedure Name Priority Date/Time Associated Diagnosis Comments HOG RAISER US OB FIRST TRIMESTER TRANSVAGINAL Routine 05/11/2014 14:27 EDT Supervision of other normal TYPE AND SCREEN Routine 04/26/2014 16:44 EDT CHLAMYDIA/N. GONORRHOEAE AMPLIFIED NUCLEIC ACID, THINPREP Routine 04/26/2014 16:11 EDT Supervision of other normal documented in this encounter Results * HOG RAISER US OB FIRST TRIMESTER TRANSVAGINAL (05/11/2014 14:27 EDT) Anatomical Region Laterality Modality Other 05/11/2014 14:2 7 EDT 06/29/2014 16:58 EDT Narrative 06/29/2014 16:58 EDT Addendum Begins Indication: dating. Septate uterus. S/p resection of septum. History: Age: 34 years. : 4 Para: 2. Previous pregnancies: Children born at term: 1. Children born : 1. Abortions: 1. Living children: 1. Current : Pre- data: Weight 160 lbs. Height 5 ft 7 ins. BMI 25.1. Obstetric History: Previous complications: stillbirth @20 weeks. Mode of last delivery: Vaginal Delivery. Dating: LMP: 03/17/2014 EDC: 12/22/2014 GA by LMP: 7w6d Current Scan on: 05/11/2014 EDC: 12/22/2014 GA by current scan: 7w6d Best Overall Assessment: 05/11/2014 EDC: 12/22/2014 Assessed GA: 7w6d The calculation of the gestational age by current scan was based on CRL. The Best Overall Assessment is based on the LMP. First Trimester Scan: Sanford gestation. Biometry: CRL 15.2 mm 90th% 7w6d (7w2d to 8w4d) Gestational sac present. Yolk sac present. Embryo present. heart activity: Present. heart rate: 155 bpm. Maternal Structures: Uterus: normal,anteverted. Endometrium: endometrium clearly visualized. Cervix: normal. Right Ovary: normal. Visible. Outline: smooth. Morphology: normal morphology. Right Ovary size: 41 mm x 12 mm x 19 mm. Volume: 4.9 ml. Left Ovary: Normal ??w/ Corpus Luteum. Visible. Outline: smooth. Morphology: normal physiological changes. Left Ovary size: 37 mm x 30 mm x 23 mm. Volume: 13.4 ml. Corpus Luteum Left Ovary: 17 mm x 13 mm x 14 mm. simple cyst. Cul de Sac / Pouch of Bairon: no free fluid visible. Report Summary: Impression: 1st Trimester OB scan ,transvaginal [phone] First trimester obstetrical US, transvaginal This is a sanford gestation. Viable IUP. CRL is consistent with menstrual dating. A normal heart beat and yolk sac were noted. Previously resected septum not seen. Recommendations: Follow-up as clinically indicated. Follow-up with M for care. Addendum Ends Indication: dating. Septate uterus. S/p resection of septum. History: Age: 34 years. : 3 Para: 2. Previous pregnancies: Children born at term: 1. Children born : 1. Living children: 1. Obstetric History: Previous complications: stillbirth. Mode of last delivery: Vaginal Delivery. Dating: LMP: 03/17/2014 EDC: 12/22/2014 GA by LMP: 7w6d Current Scan on: 05/11/2014 EDC: 12/22/2014 GA by current scan: 7w6d Best Overall Assessment: 05/11/2014 EDC: 12/22/2014 Assessed GA: 7w6d The calculation of the gestational age by current scan was based on CRL. The Best Overall Assessment is based on the LMP. First Trimester Scan: Sanford gestation. Biometry: CRL 15.2 mm 90th% 7w6d (7w2d to 8w4d) Gestational sac present. Yolk sac present. Embryo present. heart activity: Present. heart rate: 155 bpm. Maternal Structures: Uterus: normal,anteverted. Endometrium: endometrium clearly visualized. Cervix: normal. Right Ovary: normal. Visible. Outline: smooth. Morphology: normal morphology. Right Ovary size: 41 mm x 12 mm x 19 mm. Volume: 4.9 ml. Left Ovary: Normal ??w/ Corpus Luteum. Visible. Outline: smooth. Morphology: normal physiological changes. Left Ovary size: 37 mm x 30 mm x 23 mm. Volume: 13.4 ml. Corpus Luteum Left Ovary: 17 mm x 13 mm x 14 mm. simple cyst. Cul de Sac / Pouch of Bairon: no free fluid visible. Report Summary: Impression: 1st Trimester OB scan ,transvaginal [phone] First trimester obstetrical US, transvaginal This is a sanford gestation. Viable IUP. CRL is consistent with menstrual dating. A normal heart beat and yolk sac were noted. Previously resected septum not seen. Recommendations: Follow-up as clinically indicated. Follow-up with [facility] for care. Procedure Note 06/29/2014 Addendum Begins Indication: dating. Septate uterus. S/p resection of septum. History: Age: 34 years. : 4 Para: 2. Previous pregnancies: Children born at term: 1. Children born : 1. Abortions: 1. Living children: 1. Current : Pre- data: Weight 160 lbs. Height 5 ft 7 ins. BMI 25.1. Obstetric History: Previous complications: stillbirth @20 weeks. Mode of last delivery: Vaginal Delivery. Dating: LMP: 03/17/2014 EDC: 12/22/2014 GA by LMP: 7w6d Current Scan on: 05/11/2014 EDC: 12/22/2014 GA by current scan: 7w6d Best Overall Assessment: 05/11/2014 EDC: 12/22/2014 Assessed GA: 7w6d The calculation of the gestational age by current scan was based on CRL. The Best Overall Assessment is based on the LMP. First Trimester Scan: Sanford gestation. Biometry: CRL 15.2 mm 90th% 7w6d (7w2d to 8w4d) Gestational sac present. Yolk sac present. Embryo present. heart activity: Present. heart rate: 155 bpm. Maternal Structures: Uterus: normal,anteverted. Endometrium: endometrium clearly visualized. Cervix: normal. Right Ovary: normal. Visible. Outline: smooth. Morphology: normal morphology. Right Ovary size: 41 mm x 12 mm x 19 mm. Volume: 4.9 ml. Left Ovary: Normal w/ Corpus Luteum. Visible. Outline: smooth. Morphology: normal physiological changes. Left Ovary size: 37 mm x 30 mm x 23 mm. Volume: 13.4 ml. Corpus Luteum Left Ovary: 17 mm x 13 mm x 14 mm. simple cyst. Cul de Sac / Pouch of Bairon: no free fluid visible. Report Summary: Impression: 1st Trimester OB scan ,transvaginal [phone] First trimester obstetrical US, transvaginal This is a sanford gestation. Viable IUP. CRL is consistent with menstrual dating. A normal heart beat and yolk sac were noted. Previously resected septum not seen. Recommendations: Follow-up as clinically indicated. Follow-up with [facility] for care. Addendum Ends Indication: dating. Septate uterus. S/p resection of septum. History: Age: 34 years. : 3 Para: 2. Previous pregnancies: Children born at term: 1. Children born : 1. Living children: 1. Obstetric History: Previous complications: stillbirth. Mode of last delivery: Vaginal Delivery. Dating: LMP: 03/17/2014 EDC: 12/22/2014 GA by LMP: 7w6d Current Scan on: 05/11/2014 EDC: 12/22/2014 GA by current scan: 7w6d Best Overall Assessment: 05/11/2014 EDC: 12/22/2014 Assessed GA: 7w6d The calculation of the gestational age by current scan was based on CRL. The Best Overall Assessment is based on the LMP. First Trimester Scan: Sanford gestation. Biometry: CRL 15.2 mm 90th% 7w6d (7w2d to 8w4d) Gestational sac present. Yolk sac present. Embryo present. heart activity: Present. heart rate: 155 bpm. Maternal Structures: Uterus: normal,anteverted. Endometrium: endometrium clearly visualized. Cervix: normal. Right Ovary: normal. Visible. Outline: smooth. Morphology: normal morphology. Right Ovary size: 41 mm x 12 mm x 19 mm. Volume: 4.9 ml. Left Ovary: Normal w/ Corpus Luteum. Visible. Outline: smooth. Morphology: normal physiological changes. Left Ovary size: 37 mm x 30 mm x 23 mm. Volume: 13.4 ml. Corpus Luteum Left Ovary: 17 mm x 13 mm x 14 mm. simple cyst. Cul de Sac / Pouch of Bairon: no free fluid visible. Report Summary: Impression: 1st Trimester OB scan ,transvaginal [phone] First trimester obstetrical US, transvaginal This is a sanford gestation. Viable IUP. CRL is consistent with menstrual dating. A normal heart beat and yolk sac were noted. Previously resected septum not seen. Recommendations: Follow-up as clinically indicated. Follow-up with [facility] for care. Rehan Abarca MD IMG US HOG RAISER ORDERABLE S * TYPE AND SCREEN (04/26/2014 16:44 EDT) ABO A [facility] Rh Factor Positive [facility] Antibody Screen Negative [facility] 04/26/2014 16:4 4 EDT Provider Theresa [facility] TESTS Performing Organization Address [facility] Co de Phone Number [facility] * HEPATITIS C ANTIBODY (04/26/2014 16:15 EDT) Hepatitis C Ab Negative [facility] Comment:Reference Range: Neg ative Blood specimen (specimen) 04/26/2014 16:15 EDT 04/26/2014 16:34 EDT Rehan Abarca MD CHEMISTRY & BLOOD GA S ORDERABLES [facility] [address] [place] [address] * CHLAMYDIA/GC AMPLIFIED, THIN PREP (04/26/2014 16:11 EDT) Specimen Description Cervix, ThinPrep vial [facility] Chlamydia Result No Chlamydia trachomatis DNA detected by coordinate measuring machine technician mediated amplification. [facility] GC Result No Neisseria gonorrhoeae DNA detected by coordinate measuring machine technician mediated amplification. [facility] Specimen of unknown material (specimen) TOPOGRAPHY UNKNOWN / Unknown 04/26/2014 16:11 EDT 04/28/2014 7:50 EDT Rehan Abarca MD MICROBIOLOGY - GENER AL ORDERABLES [facility] [address] [place] [address] documented in this encounter Visit Diagnoses Diagnosis Supervision of other normal - Primary History of loss in prior , currently with history of documented in this encounter Discontinued Medications Medication Sig Discontinue Reason Start Date End Da te levothyroxine (SYNTHROID) 88 mcg tablet TAKE ONE TABLET BY MOUTH EVERY DAY Dose adjustment 12/20/2011 04/26/2014 multivitamin vit-iron fumarate-FA (STUARTNATAL) 27 mg iron- 1 mg tablet tablet Take 1 Tab by mouth daily. Duplicate Therapy 04/17/2014 04/28/2014 Multivitamin Vit-Iron Fumarate-FA ( PLUS) 27-1 mg tablet Take 1 Tab by mouth daily. Duplicate Therapy 02/06/2014 04/28/2014 documented as of this encounter Historical Medications * This list may reflect changes made after this encounter. Medication Sig Dispensed Refills Start Date End Date VIT/IRON FUMARATE/FA ( ORAL) Take by mouth. 05/21/2021 added in this encounter Additional Health Concerns Infection Onset Date Last Indicated Resolved Time 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 Care Teams Community Aide Relationship Specialty Start Date End Date Conor Angel MD [address] [place] [address] PCP - General 02/07/14 06/08/14 documented as of this encounter
--- OUTSIDE RECORDS SUMMARY | 2024-06-10 18:46 | XMS_ITS | Encounter Summary ---
Author Organization [facility] Address [address] [place] [address] Care Team Providers Care Hiv Nurse Name Role Phone Ladonna Maurer Primary Care Provider [phone] Reason for Visit * Reason Comments Labs Only Encounter Details Date Type Department Care Team (Latest Contact Info) Description 11/16/2012 9:30 EST Procedure visit [facility] Endocrinology - [address] [phone] Unknown, Provider, Phlebotomy, [facility] Unspecified hypothyroidism; Mena's thyroiditis Social History Tobacco Use Types [...] as of this encounter Progress Notes * Drew Grijalva MD - 11/17/2012 0842 ESTQuick Note: euthyroid documented in this encounter Plan of Treatment Upcoming Encounters Date Type Department Care Team (Late st Contact Info) Description 12/29/2024 10:20 EST Office Visit [facility] Rheumatology & Immunology - [facility] [address], [place] [id number] Micaela Hoff MD [address] [facility], [address] [place] [id number] documented as of this encounter Procedures Procedure Name Priority Date/Time Associated Diagnosis Comments TSH Routine 11/16/2012 9:32 EST Unspecified hypothyroidism Mena's thyroiditis T4 FREE Routine 11/16/2012 9:32 EST Unspecified hypothyroidism Mena's thyroiditis documented in this encounter Results * TSH (11/16/2012 9:32 EST) TSH 1.00 0.35 - 5.00 uIU/ml [facility] Blood specimen (specimen) 11/16/2012 9:32 EST 11/16/2012 15:54 EST Drew Grijalva MD CHEMISTRY & BLOOD GAS ORDERABLES Performing Organization Address [facility] Co de Phone Number [facility] [address] [place] [address] * T4 FREE (11/16/2012 9:32 EST) Free T4 1.5 0.8 - 1.8 ng/dL [facility] Blood specimen (specimen) 11/16/2012 9:32 EST 11/16/2012 15:54 EST Drew Grijalva MD CHEMISTRY & BLOOD GAS ORDERABLES Performing Organization Address [facility] Co de Phone Number [facility] [address] [place] [address] documented in this encounter Visit Diagnoses Diagnosis Unspecified hypothyroidism Mena's thyroiditis Chronic lymphocytic thyroiditis documented in this encounter Additional Health Concerns Infection Onset Date Last Indicated Resolved Time 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 Care Teams Hiv Nurse Relationship Specialty Start Date End Date Ladonna Maurer PA [address] [place] [address] PCP - General 05/12/12 01/24/13 documented as of this encounter
--- OUTSIDE RECORDS SUMMARY | 2024-06-10 18:46 | XMS_ITS | Encounter Summary ---
Author Organization [facility] Address [address] [place] [address] Care Team Providers Care Live Truck Operator Name Role Phone Conor Angel MD Primary Care Provider [phone] Encounter Details Date Type Department Care Team (Late st Contact Info) Description 02/10/2014 Phlebotomy Only [address] [address] Desizing Machine Back Tender, Outpatient with other poor obstetric history(V23.49) Social History Tobacco Use Types Packs/Day Years [...] Description 12/29/2024 10:20 EST Office Visit [facility] Rheumatology & Immunology - [address] [address] Micaela Hoff MD [address] [place] [address], [address] [place] [address] documented as of this encounter Procedures Procedure Name Priority Date/Time Associated Diagnosis Comments COMPLETE BLOOD COUNT STAT 02/10/2014 12:09 EDT with other poor obstetric history(V23.49) QUANT BETA HCG, STAT 02/10/2014 12:09 EDT with other poor obstetric history(V23.49) documented in this encounter Results * HEMAGRAM (02/10/2014 12:09 EDT) Pathologist [facility] WBC 7.52 4.0 - 12.4 K/cmm [facility] [...] Rogers MD HEMATOLOGY & PF4 OR DERABLES Performing Organization Address [facility] Co de Phone Number [facility] [address] [place] [address] * (ABNORMAL) HCG FOR (02/10/2014 12:09 EDT) Quant Beta HCG, Preg 6(H) <5 mIU/ml [facility] Comment: Reference Range: Negative = <5 Indeterminate = 5-25 recommend repeat in 48 hours. Positive = >25 Blood specimen (specimen) 02/10/2014 12:09 EDT 02/10/2014 12:18 EDT Sarah Rogers MD CHEMISTRY & BLOOD G ORDERABLES Performing Organization Address [facility] Co de Phone Number [facility] [address] [place] [address] documented in this encounter Visit Diagnoses Diagnosis with other poor obstetric history(V23.49) with other poor obstetric history documented in this encounter Additional Health Concerns Infection Onset Date Last Indicated Resolved Time 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 Care Teams Live Truck Operator Relationship Specialty Start Date End Date Conor Angel MD [address] [place] [address] PCP - General 02/07/14 06/08/14 documented as of this encounter
--- OUTSIDE RECORDS SUMMARY | 2024-06-10 18:46 | XMS_ITS | Encounter Summary ---
Author Organization [facility] Address [address] [place] [address] Care Team Providers Care Rnp Name Role Phone None, Provider Primary Care Provider Unavailabl e Reason for Referral * (Routine) - Closed Specialty Diagnoses / Procedures Referred By Ehsan patel Referred To Contact Liya Stone MD [address] [place] [address] Referral ID Status Reason Start Date Expiration Date V isits Requested Visits Authorized [id number] Closed Specialty Services Required 07/11/2014 1 1 Encounter Details Date Type Department Care Team (Late st Contact Info) Description 07/11/2014 11:10 EDT - 07/11/2014 14:[address] [facility] [address] [place] [address] Robb Nam MD [address] [facility], [address] [place] [address] Discharge Disposition: Home or Self Care Social [...] Sign Reading Time Taken Comments Blood Pressure 127/74 07/11/2014 1115 EDT Pulse - - Temperature 36.5 ??C (97.7 ??F) 07/11/2014 1115 EDT Respiratory Rate 20 07/11/2014 1115 EDT Oxygen Saturation - - Inhaled Oxygen Concentration - - Weight - - Height - - Body Mass Index - - documented in this encounter Medications at Time [...] documented in this encounter Progress Notes * Maren Martinez - 07/11/2014 1124 EDT 1115: Pt admitted to Rm 11 for cerclage placement today. Pt is 16+4 weeks today. Pt denies pain of any kind. Pt last ate at 0630 today. MD Overton notified of pt's arrival. 1142: Doppler FHR in the 130s. 1404: MD Howell in to talk to pt. Pt planning to do repeat cervical length scan next Thursday and if shortened, will do cerclage then. MD Howell discussing risks with pt. Pt and FOB agree with plan and state understanding of risks. documented in this encounter H&P Notes * Shanique Howell MD - 07/11/2014 1127 EDT Department of Obstetrics History & Physical Admit Date: 07/11/2014 Chief Complaint: short cervix, h/o PTD HPI: Teri Smith is a 34 y.o. @ 16w4d with h/o hypothyroidism, obesity, TAMMY as well as prior PTD at 20 wga with demise who presents from US clinic for concerns for shortened cervix and possible cerclage placement. Pt has been followed by M for h/o 20 wk delivery in the setting ofuterine septum and possible ?chorio/PTL versus cervical insufficiency. She underwent hysteroscopic septum resection in 2003 followed by a term in 2007. this she was started on progesterone and was undergoing serial CL. Today on her scan CL was around 1.8cm, shorter than 2 weeks prior (2.2cm on 06/29). She also has a posterior previa. she was sent to L&D. Pt was seen on 06/29 for green mucous and bleeding but has not had any of those sx since. Mild occasional cramping, none currently. She received her first IM prog injection less than one week ago. OB History 2002-20 wga ?chorio/PPROM, uterine septum diagnosed 2007 term 8#1 oz female, vag prog that , uncomplicated , IOL for NRFA ?SAB current Past Medical History Past Surgical History Past Medical History Diagnosis Date ??? History of tobacco use ??? Thyroid disease ??? Uterine congenital anomaly in 2003 Hysteroscopic Resection Past Surgical History Procedure Laterality Date ??? Upper gastrointestinal endoscopy 09/03/2010 ??? [place] tooth extraction ??? Endometrial biopsy hysteroscopic resection uterine septum 2003 Rate Reviewer History Social History H/o LEEP after 20 [...] VIT/IRON FUMARATE/FA ( ORAL) Take by mouth. hue IM progsterone No Known Allergies OB Course: SADA 12/22/24 by 5+5 Blood Type A pos Varicella unk Rubella imm Gonorrhea Not done Chlamydia Not done Pap 04/2014 neg VRDL NR Hep B neg Hep C neg HIV neg 1 hour gtt NA Aneuploidy Testing Integrated in process CF Testing none Last U/S 07/11-CL 1.8, post previa Objective/Physical Exam: Patient Vitals for the past 8 hrs: BP Heart Rate Resp Temp 07/11/14 1115 127/74 mmHg 68 BPM 20 36.5 ??C (97.7 ??F) Gen: NAD, AAO Abd: Soft, ND, normoactive BS, NT, gravid, no uterine tenderness Ext: no edema, non-tender, 2+ symmetric DPP FHT: 130 Assessment/Problems/Plan: Teri Smith is a 34 y.o. with h/o prior PTD currently at 16w4d who presents with shortened cervix, VSS Shortened cervix/h/o PTD: Given her history of PTD, pt is a candidate for cerclage and she was counseled on the risks and benefits of that procedure including the benefit of placing the stitch early when more cervix is present. Though in the context of her subsequent term delivery expectant management and repeat CL in week are also reasonable. She should continue to receive weekly progesterone asshe got her first injection less than 1 week ago and would not be deemed as a failure of therapy. Pt desires repeat CL next week, will follow-up with clinic pending those results. Pt seen and d/w Dr Ernst Overton MD, PGY 4 Department of Obstetrics and Gynecology OB Attending Attestation: I have examined Teri Smith myself and agree with the above assessment and plan as noted. I had a long discussion with the patient re: her options, specifically discussed risks and benefits of a cerclage at this time. Pt originally planning cerclage, but now would prefer to wait and see what hernext cervical length is next week, to give the IM progesterone more time, as she has only been on it for 6 days at this point. SHANIQUE HOWELL MD ;t documented in this encounter Miscellaneous Notes * Plan of Care - Jasmyn Pruett - 06/30/2014 0835 EDT Problem: CONTACT PRECAUTIONS Goal: Prevent Transmission Of Infection Patient has a history of MRSA (10/18/2011, wound). Her current status is unknown. Please maintain contact precautions until two surveillance cultures (including nares and areas of open skin) [id number] hours apart rule out colonization. Do not cohort at this time. documented in this encounter Plan of Treatment Upcoming Encounters Date Type Department Care Team (Late st Contact Info) Description 12/29/2024 10:[address] [facility] Rheumatology & Immunology - [address] [address] Micaela Hoff MD [address] [place] [address], [address] [place] [address] Scheduled Referrals Name Type Priority Associated Diagnoses Order Schedule PROVIDER FOLLOW-UP INSTRUCTIONS Outpatient Referral Routine Ordered: 07/11/2014 documented as of this encounter Visit Diagnoses Not on filedocumented in this encounter Orders Diet Count Last Ordered Date First Orde red Date DISCHARGE DIET 2 07/11/2014 Nursing Count Last Ordered Date First Orde red Date ACTIVITY INSTRUCTIONS 1 07/11/2014 BATHING INSTRUCTIONS 1 07/11/2014 Transfer Count Last Ordered Date First Orde red Date NOTIFY PPS OF DISCHARGE COMPLETE 1 07/11/20 14 Discharge Count Last Ordered Date First Orde red Date DISCHARGE PATIENT 1 07/11/2014 Legal Count Last Ordered Date First Orde red Date MISCELLANEOUS DISCHARGE INSTRUCTIONS 1 07/2014 documented in this encounter Additional Health Concerns Infection Onset Date Last Indicated Resolved Time 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 Care Teams Rnp Relationship Specialty Start Date End Date None, Provider PCP - General 06/09/14 03/01/15 documented as of this encounter
--- OUTSIDE RECORDS SUMMARY | 2024-06-10 18:46 | XMS_ITS | Encounter Summary ---
Author Organization [facility] Address [address] [place] [address] Care Team Providers Care Chip Drier Name Role Phone Conor Angel MD Primary Care Provider [phone] Encounter Details Date Type Department Care Team (Late st Contact Info) Description 04/26/2014 Results Only [facility] Women's Services - [address] [phone] Cyrus Quijano MD [address] [place] [address] [place] [address] Social History Tobacco Use Types Packs/Day Years [facility] [address] [id number] Micaela Hoff MD [address] [facility], [address] [place] [phone] documented as of this encounter Procedures Procedure Name Priority Date/Time Associated Diagnosis Comments PAP TEST- RESULT ONLY Routine 04/26/2014 0:00 EDT documented in this encounter Results * PAP TEST- RESULT ONLY (04/26/2014 0:00 EDT) Pathology Report: CYTOPATHOLOGY REPORT Reports generated via electronic interface contain original data; however they are lacking the format of the original report. Caution should be taken when reading/interpreti ng unformatted reports. Name: ? LIZZIE SMITH ? Accession #: ? [id number] ? : ? 1980 (Age: 34) ??F ?Collect Date: ? 04/26/2014 ? Location: ? OBGYN ? Receive Date: ? 05/01/2014 ? Provider: CYRUS QUIJANO MD Copy to: ? Final Report SPECIMEN ADEQUACY ? Satisfactory for Evaluation - transformation zone component present GENERAL CATEGORIZATION ? Negative for Intraepithelial Lesion or Malignancy ?? Last Menstrual Period: 03/17/14 Menstrual/Pregnanc y Status: ?? Previous Gynecologic Pathology: HPV: +, last Pap 12/11/11 negative Specimen/Source: ??Pap Test, Cervix/Endocervix, ThinPrep Imaging System with manual evaluation Document reviewed and electronically signed by: ? Babs Clements, SCT(ASCP) ? Report ??Date: 05/10/2014 10:37 HPV with Pap Test ? Date Ordered: ? 05/09/2014 ? Status: ?? Signed Out ?Date Complete: ? 05/12/2014 ? By: ??System Interface ? Date Reported: ? 05/12/2014 ? Interpretation RESULT: Negative for HPV. No E6 or E7 mRNA is detected from HPV types 16,18,31,33,35, 39,45,51,52,56,58, 59,66, and 68 by brassiere cup mold cutter mediated amplification. Comments Document reviewed and electronically signed by: ? System Interface ? Report date: 05/12/2014 By the signature above, the attending physician certifies that he/she has personally conducted a gross and/or microscopic examination of the described specimens and rendered or confirmed the above diagnosis. End of Report [facility] 04/26/2014 05/01/2014 Cyrus Quijano MD PATHOLOGY ORDERABLES Performing Organization Address City/State/[facility] Co de Phone Number [facility] [address] [place] [address] documented in this encounter Visit Diagnoses Not on filedocumented in this encounter Additional Health Concerns Infection Onset Date Last Indicated Resolved Time 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 Care Teams Chip Drier Relationship Specialty Start Date End Date Conor Angel MD [address] [place] [address] PCP - General 02/07/14 06/08/14 documented as of this encounter
--- OUTSIDE RECORDS SUMMARY | 2024-06-10 18:46 | XMS_ITS | Encounter Summary ---
Author Organization [facility] Address [address] [place] [address] Care Team Providers Care Equipment Coordinator Name Role Phone None, Provider Primary Care Provider Unavailabl e Reason for Visit * Reason Onset Date Comments Vaginal Discharge 06/29/2014 Encounter Details Date Type Department Care Team (Late st Contact Info) Description 06/29/2014 Telephone [facility] Obstetrics & Midwifery - [facility] [address] [place], [place] [phone] Soledad Crawley RN Vaginal Discharge Social History Tobacco Use Types Packs/Day [...] Telephone Encounter - Soledad Crawley RN - 06/29/2014 8744 EDT Call from Teri with reports of thick, green, mucousy discharge at noon this afternoon. She states she went to the bathroom and noticed huge clump of mucous- green mixed with blood, few blood clots. She denied any additional leakage or discharge since that time at this conversation. Reports some cramping, at 4 out of 10 on pain scale, but has been experiencing this all , and notes there has not been any change. She denies foul odor, has not felt feverish or ill. Page to Dr. aNm, discussed patient's symptoms and MD advised she be seen this afternoon for cervical length, transvaginalultrasound. Appointment available for 16:15 this afternoon. Return call made to Teri to discuss MD recommendations, patient states she doubts she will be able to make it to the appointment due to transportation and childcare issues. Offered alternative appointment for her to be seen Thursday, 8/29 AM in clinic. Pt declines asking if she can be seen in [place] instead, advised she reach out to office to arrange this or be seen in local ED. At this point, patient states she is beginning to leak watery discharge and tearfully states This is what happened last time. Strongly advised she be seen here in the office for transvaginal ultrasound or seek care locally in [place]. Teri states she will try and make appointment and then patient hung up telephone. US booked for 16:15pm today. documented in this encounter Plan of Treatment Upcoming Encounters Date Type Department Care Team (Late st Contact Info) Description 12/29/2024 10:20 EST Office Visit [facility] Rheumatology & Immunology - [address] [phone] Micaela Hoff MD [address] [place] [address], [address] [place] [phone] documented as of this encounter Visit Diagnoses Not on filedocumented in this encounter Additional Health Concerns Infection Onset Date Last Indicated Resolved Time 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 Care Teams Equipment Coordinator Relationship Specialty Start Date End Date None, Provider PCP - General 06/09/14 03/01/15 documented as of this encounter
--- OUTSIDE RECORDS SUMMARY | 2024-06-10 18:46 | XMS_ITS | Encounter Summary ---
Author Organization [facility] Address [address] [place] [address] Care Team Providers Care Pulvi Mixer Operator Name Role Phone Ladonna Maurer Primary Care Provider [phone] Reason for Visit * Reason Comments Fatigue Joint Pain Encounter Details Date Type Department Care Team (Late st Contact Info) Description 05/12/2012 13:00 EDT Office Visit [facility] Rheumatology & Immunology - [facility] [address] [place], [place] [address] Denise Self MD [address] [facility], [address] [place] [address] Pain in joint, multiple sites; Myalgia and myositis, unspecified; Other malaise and fatigue Social History Tobacco Use Types Packs/Day Years [...] Sign Reading Time Taken Comments Blood Pressure 106/70 05/12/2012 1242 EDT Pulse 60 05/12/2012 1242 EDT Temperature - - Respiratory Rate - - Oxygen Saturation - - Inhaled Oxygen Concentration - - Weight 72.1 kg (159 lb) 05/12/2012 1242 EDT Height 168.6 cm (5' 6.38) 05/12/2012 1242 EDT Body Mass Index 25.37 05/12/2012 1242 EDT documented in this encounter Patient Instructions * Patient Instructions* Denise Self MD - 05/12/2012 13:41 EDT If GI evaluation is negative, further workup would include: x-rays of thoracic spine, SI joints andhips and HLA B27 to look spondyloarthropathy, tests for muscle enzyme (CK) and antiphospholipid syndrome documented in this encounter Progress Notes * Denise Self MD - 05/12/2012 1343 EDT This office note has been dictated. documented in this encounter Consult Notes * Denise Self MD - 05/13/2012 0857 EDT DIVISION OF RHEUMATOLOGY CONSULTATION - 05/12/2012 PROBLEM: This is a 32-year-old lady seen in consultation at the request of Dr Rice with chief complaint of joint and muscle pain, weight loss, fatigue, weakness, night sweats. HISTORY OF PRESENT ILLNESS: The patient says she has not been feeling well for a very long time. She was diagnosed with Mena's thyroiditis 2 years ago and really has never felt well since then. Over the past year, she has had worsening fatigue, weakness, drenching whole body night sweats intermittently, dizziness and musculoskeletal pain. She has pain in her abdomen and has actually lost 100 pounds in the last year unintentionally. She does have alternating diarrhea and constipation but no hematochezia. She was diagnosed with peptic ulcer disease due to ibuprofen that she was using to treat chronic headaches. She has not had a colonoscopy but does have an appointment coming up to see Dr Johnston in GI. She also has chest pains. Over the past year, however, she has also developed musculoskeletal pain with joint stiffness and muscle versus bone pain, mostly in her thoracic spine area between the scapula, described as a dull pain, constant, tender to touch. She has intermittent pain over the shoulders and legs making it hard to take stairs. There are no visible joint changes such as swelling or redness. She does, however, feel that she has muscle weakness. It is hard to medicinal plant picker her daughter or open a jar because of this. She does have some buttocks pain. Pain is worse with immobility and worse in the morning and associated with morning stiffness lasting 1 to 2 hours. She has fatigue. She wakes up unrefreshed, although she does not seem to have any trouble sleeping through the night. She also has dizziness. She will have sudden, without warning, spells of lightheadedness where she feels like she is going to pass out, her vision starts to close up, her head is spinning but she denies any actual vertigo symptoms. No associated nausea or vomiting. She also describes headaches. She was seen by ENT for these in the past. She also describes sicca symptoms in hereyes, mouth and vaginal area, although she has had labwork for Sjogren's that is negative. Ibuprofen, which she was using for headaches, was not helpful for her musculoskeletal pain. ALLERGIES: None known. MEDICATIONS: Synthroid 88 mcg daily and Prilosec 40 mg daily. SOCIAL HISTORY: She is , has a 4-year-old baby girl. 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 She smokes 3/4 pack a day since the age of 15, has tried to quit many times. Alcohol intake is about once a month. PAST MEDICAL HISTORY: Meningitis as an infant, wisdom teeth removal, headaches, peptic ulcer disease due to ibuprofen, Mena's thyroiditis and a stillbirth at 20 weeks gestation with a subsequentresection of uterine septum. She denies any clots such as DVTs or pulmonary emboli. FAMILY HISTORY: Positive for coronary artery disease, brain aneurysm. A grandmother has arthritis of an unknown type. REVIEW OF SYSTEMS: A 12-point review of systems is done and negative with the following exceptions:Fatigue, night sweats, sicca symptoms, mouth sores that are tender, occasionally bleeding on her gums and tongue, chest pain, nausea, stomach pain, diarrhea, constipation, paresthesias, headaches, weakness, trouble getting enough sleep although she says she sleeps through the night, anxiety and depression. She also had, 6 to 8 weeks ago, one single episode of petechial-like rash on her legs from the thighs to the feet lasting 10 days. No itching or pain, not raised. Also, swollen glands in the right neck and poor memory, easy bruising, heartburn. OBJECTIVE: Blood pressure 106/70, pulse 60. Weight 72 kilos, height 168.6 cm. Pain rating scale 5/10, in no acute distress. Head and neck: Pupils equal and reactive, extraocular movements intact, sclerae clear, conjunctivae pink. Mucous membranes appear moist. There are no oral ulcers. There are noabout palpable cervical nodes. The lungs are clear. Heart sounds regular, no rubs. Abdomen: Diffusely tender, soft, no organomegaly. Skin: Multiple tattoos over her trunk and extremities, no rashes. On her neurologic, she has 5/5 proximal strength upper and lower extremities. There is tenderness atthe left biceps muscle to palpation. Her musculoskeletal exam, upper and lower extremities reveal full range of motion with the exception of the hips with no evidence of any synovitis. The hips had somewhat limited range of motion bilaterally associated with some pain. There were no fibromyalgia tender points. She had good range of motion C-spine in all directions, no focal areas of tenderness over the spine or SI joints. DIAGNOSTIC DATA: Laboratories from 01/2012: She had a normal comprehensive metabolic panel. She had a normal TSH. She, in September, had a vitamin D of 35.9. In 01/2012, a CBC with diff is normal and a sed rate is 10. Her ILZZIE is negative, rheumatoid factor negative ANCA negative, SSA and SSB negative and tissue transglutaminase antibodies negative. A urinalysis from December showed trace ketones, traceblood, 1+ leukocyte esterase. In March, she had 3+ blood, 2+ protein and was diagnosed with a UTI. She had 2+ nitrite. Echocardiogram from 02/19/11 is normal, and ultrasound of the thyroid from 11/2011 stated heterogeneous thyroid, smaller than normal on ultrasound, smaller than prior study. 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 The patient also, several years ago, in 2006, had a negative RPR, negative hep B surface antigen and negative HIV. HIV done 12/03, as well as syphilis serology were also new negative from this year. In 2004 and 2005, hep C antibodies were negative. IMPRESSION: Multijoint and muscle pains as well as fatigue. She has also had profound, 100 pound weight loss over the past year, stomatitis as well. She does have sicca symptoms, but her Sjogren's antibodies and LIZZIE and rheumatoid factor are negative arguing against Sjogren's syndrome. I would question whether she could have inflammatory bowel disease as a cause of her GI symptoms as well as her musculoskeletal and constitutional symptoms. The differential could include a primary myopathy, antiphospholipid syndrome because of the stillbirth or spondyloarthropathy unrelated to inflammatory bowel. PLAN: She will proceed with GI evaluation. If that is unrevealing then I would consider rechecking her urinalysis as well as getting a CK, antiphospholipid tests, HLA-B27 and x-ray of thoracic spine,hips and SI joints. She will follow up with me p.r.n. depending on the results of her GI workup. Medication reconciliation performed. No barriers to learning. The patient verbalized understanding and agrees with plan. Electronically Signed by Denise Self MD 05/13/2012 14:19 Denise Self MD - Denise Self MD - RORY Job ID: SM Doc ID: [id number] Ext Doc ID: [id number] cc: AUSTIN Silva MD documented in this encounter Plan of Treatment Upcoming Encounters Date Type Department Care Team (Late st Contact Info) Description 12/29/2024 10:20 EST Office Visit [facility] Rheumatology & Immunology - [address] [phone] Micaela Hoff MD [address] [place] [address], [address] [place] [phone] documented as of this encounter Visit Diagnoses Diagnosis Pain in joint, multiple sites Myalgia and myositis, unspecified Mylagia and myositis, unspecified Other malaise and fatigue documented in this encounter Discontinued Medications Medication Sig Discontinue Reason Start Date End Da te Cholecalciferol, Vitamin D3, (VITAMIN D) 2,000 unit Cap Take by mouth daily. Therapy completed 01/23/2011 2 fluconazole (DIFLUCAN) 150 mg tabletIndications:UTI (lower urinary tract infection) Take 1 Tab by mouth daily. Therapy completed 03/02/2012 05/12/2012 ibuprofen (MOTRIN) 600 mg tabletIndications:Pharyn gitis Take 1 Tab by mouth every 6 hours as needed for Pain. Therapy completed 03/02/2012 05/12/2012 naproxen sodium (ALEVE) 220 mg Cap Take by mouth. Therapy completed 05/12/2012 penicillin v potassium (VEETID) 500 mg tablet Take 1 Tab by mouth 3 times daily. Therapy completed 03/04/2012 05/12/2012 documented as of this encounter Additional Health Concerns Infection Onset Date Last Indicated Resolved Time 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 Care Teams Pulvi Mixer Operator Relationship Specialty Start Date End Date Ladonna Maurer PA [address] [place] [address] PCP - General 05/12/12 01/24/13 documented as of this encounter
--- OUTSIDE RECORDS SUMMARY | 2024-06-10 18:46 | XMS_ITS | Encounter Summary ---
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) - Closed Specialty Diagnoses / Procedures [facility] Referred To Contact Diagnoses with history of pre-term labor Cervical shortening, antepartum condition or complication Procedures CARE HOME TRANSVAGINAL Stiven Lgoan MD [address] [place] [phone] Referral ID Status Reason Start Date Expiration Date Visits Re quested Visits Authorized [id number] Closed 07/11/2014 1 1 Reason for Visit * Reason Comments Routine Visit Encounter Details Date Type Department Care Team (Late st Contact Info) Description 07/11/2014 8:45 EDT Routine [facility] Obstetrics & Midwifery - [address] [phone] Stiven Logan MD [address] [place] [phone] [place]: 16w4d Discharge Disposition: Auto Discharge Social History Tobacco [...] Sign Reading Time Taken Comments Blood Pressure 106/68 07/11/2014 0857 EDT Pulse - - Temperature - - Respiratory Rate - - Oxygen Saturation - - Inhaled Oxygen Concentration - - Weight 88.6 kg (195 lb 6.4 oz) 07/11/2014 0857 E DT Height - - Body Mass Index 30.6 05/11/2014 1501 EDT documented in this encounter Discharge Diagnoses Diagnosis V23.41 WITH HISTORY OF PRE-TERM LABOR[ICD-9-CM] 649.73 CERVICAL SHORTENING, ANTEPARTUM CONDITION OR COMPLICATION[ICD-9-CM] documented in this encounter Discharge Disposition Disposition Code Departure Means Destination Auto Discharge documented in this encounter Progress Notes * Stiven Logan MD - 07/11/2014 1019 EDT MFM attending She had a cervical length < 20 mm this morning, so I am sending her upstairs to arrange for cerclage. I have also ordered a 1 week post cerclage follow-up TV scan. She will not need a TV scan in 4weeks at her anatomy survey. Stiven Logan MD 07/11/2014 10:20 * Stiven Logan MD - 07/11/2014 0956 EDT with history of pre-term labor MFM attendnig S: She is doing well. She had a heavier discharge a couple weeks ago but it resolved. She is back to her normal. No cramping or bleeding. She says she has had some headaches (frontal). O: see vitals A: IUP at 16w4d doing well Headache Hx of on [place] P: She has her lab slips for her 2nd trimester integrated screen She has cervical length scan today The plan was for a cervical scan and detailed at 20 weeks (already scheduled) unless today's scan raises concerns RTC 4 weeks Stiven Logan MD 07/11/2014 9:56 documented in this encounter Miscellaneous Notes * Addendum Note - Stiven Logan MD - 07/11/2014 1020 EDTAddended by: STIVEN LOGAN on: 07/11/2014 10:20 Modules accepted: Orders * Assessment & Plan Note - Stiven Logan MD - 07/11/2014 0956 EDTAssociated Problem(s): with history of pre-term labor [facility] attendnig S: She is doing well. She had a heavier discharge a couple weeks ago but it resolved. She is back to her normal. No cramping or bleeding. She says she has had some headaches (frontal). O: see vitals A: IUP at 16w4d doing well Headache Hx of on [place] P: She has her lab slips for her 2nd trimester integrated screen She has cervical length scan today The plan was for a cervical scan and detailed at 20 weeks (already scheduled) unless today's scan raises concerns RTC 4 weeks documented in this encounter Plan of Treatment Upcoming Encounters Date Type Department Care Team (Late st Contact Info) Description 12/29/2024 10:20 EST Office Visit [facility] Rheumatology & Immunology - [address] [phone] Micaela Hoff MD [address] [place] [address], [address] [place] [phone] documented as of this encounter Procedures Procedure Name Priority Date/Time Associated Diagnosis Comments CARE HOME TRANSVAGINAL Routine 07/18/2014 11:5 0 EDT with history of pre-term labor Cervical shortening, antepartum condition or complication documented in this encounter Results * CARE HOME TRANSVAGINAL (07/18/2014 11:50 EDT) Anatomical Region Laterality Modality Other 07/18/2014 11:5 0 EDT 07/18/2014 13:12 EDT Narrative 07/18/2014 13:12 EDT Indication: Short cervix. History (Previous ): complications: Hx of PTD [...] General Evaluation: heart activity: Present. heart rate: 156 bpm. movement: visible. Amniotic Fluid: Normal. Placenta: Posterior. Placenta Grade: Grade 1. Structure: normal. Maternal Structures: Cervix: normal. Funneling. Cervical length: 16 mm Cervical length with fundal pressure: 15 mm. Funnel width with fundal pressure: 6 mm. Funnel length with fundal pressure: 12 mm. Cul de Sac / Pouch of Bairon: no free fluid visible. Report Summary: Impression: [id number] Transvaginal obstetrical scan A transvaginal scan was performed. The cervical length was abnormal at 1.5 cm. ??This is slightly shorter than measured one week ago. The patient has previously been counseled and has opted for a cervical cerclage. ??She is sent to Labor and Delivery. Growth Overview: Date [place] BPD [mm] HC [...] ... ... ... ... Procedure Note 07/18/2014 Indication: Short cervix. History (Previous ): complications: Hx of PTD [...] General Evaluation: heart activity: Present. heart rate: 156 bpm. movement: visible. Amniotic Fluid: Normal. Placenta: Posterior. Placenta Grade: Grade 1. Structure: normal. Maternal Structures: Cervix: normal. Funneling. Cervical length: 16 mm Cervical length with fundal pressure: 15 mm. Funnel width with fundal pressure: 6 mm. Funnel length with fundal pressure: 12 mm. Cul de Sac / Pouch of Bairon: no free fluid visible. Report Summary: Impression: [id number] Transvaginal obstetrical scan A transvaginal scan was performed. The cervical length was abnormal at 1.5 cm. This is slightly shorter than measured one week ago. The patient has previously been counseled and has opted for a cervical cerclage. She is sent to Labor and Delivery. Growth Overview: Date [place] BPD [mm] HC [...] ... ... ... ... ... ... ... Stiven Logan MD [place] documented in this encounter Visit Diagnoses Diagnosis with history of pre-term labor- Primary Cervical shortening, antepartum condition or complication documented in this encounter Additional Health Concerns Infection Onset Date Last Indicated Resolved Time 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 Care Teams Central Service Technician Relationship Specialty Start Date End Date None, Provider PCP - General 06/09/14 03/01/15 documented as of this encounter
--- OUTSIDE RECORDS SUMMARY | 2024-06-10 18:46 | XMS_ITS | Encounter Summary ---
Author Organization [facility] Address [address] [place] [address] Care Team Providers Care Food Product Inspector Name Role Phone None, Provider Primary Care Provider Unavailabl e Reason for Visit * Reason Onset Date Comments Other 06/20/2014 [place], records for [facility] Encounter Details Date Type Department Care Team (Late st Contact Info) Description 06/20/2014 Telephone [facility] Obstetrics & Midwifery - [facility] [address] [place], [place] [phone] Chrissie Lai, RN Other ([facility], records for [facility]) Social History Tobacco Use Types Packs/Day Years [...] * Telephone Encounter - Chrissie Lai - 06/20/2014 0959 EDT Teri called and asked [facility] to contact [facility] about her [place] injections. Reports [place] thinks she is having some of her injections here @ [facility]. Reviewed the note from visit, pt desires injections in [place]. Pt agrees this is the plan. -Spoke with nurse @ [facility]. Explained patient would have injections there. Copy of records faxed to [facility] at their request. documented in this encounter Plan of Treatment Upcoming Encounters Date Type Department Care Team (Late st Contact Info) Description 12/29/2024 10:20 EST Office Visit [facility] Rheumatology & Immunology - [address] [phone] Micaela Hoff MD [address] [place] [address], [address] [place] [phone] documented as of this encounter Visit Diagnoses Not on filedocumented in this encounter Additional Health Concerns Infection Onset Date Last Indicated Resolved Time 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 Care Teams Food Product Inspector Relationship Specialty Start Date End Date None, Provider PCP - General 06/09/14 03/01/15 documented as of this encounter
--- OUTSIDE RECORDS SUMMARY | 2024-06-10 18:46 | XMS_ITS | Encounter Summary ---
Author Organization [facility] Address [address] [place] [address] Care Team Providers Care General Surgeon Name Role Phone None, Provider Primary Care Provider Unavailabl e Reason for Visit * Reason Onset Date Comments Medication Management 06/14/2014 [place] Encounter Details Date Type Department Care Team (Late st Contact Info) Description 06/14/2014 Telephone [facility] Obstetrics & Midwifery - [facility] [address] [place] [address] Soledad Crawley, sugar presser Management ([place]) Social History Tobacco Use Types Packs/Day Years [...] Telephone Encounter - Soledad Crawley RN - 06/14/2014 1033 EDT Call from Nubia at [facility] order caller to discuss collaborative care for Teri to receive [place] injections in [place]. Pt desires this plan, she is aware she needs to schedule appointment with [facility] prior to initiating scheduled injections. Teri offered no questions or concerns, verbalizedunderstanding and agreement with plan of care. documented in this encounter Plan of Treatment Upcoming Encounters Date Type Department Care Team (Late st Contact Info) Description 12/29/2024 10:20 EST Office Visit [facility] Rheumatology & Immunology - [address] [address] Micaela Hoff MD [address] [place] [address], [address] [place] [phone] documented as of this encounter Visit Diagnoses Not on filedocumented in this encounter Additional Health Concerns Infection Onset Date Last Indicated Resolved Time 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 Care Teams General Surgeon Relationship Specialty Start Date End Date None, Provider PCP - General 06/09/14 03/01/15 documented as of this encounter
--- OUTSIDE RECORDS SUMMARY | 2024-06-10 18:46 | XMS_ITS | Encounter Summary ---
Author Organization [facility] Address [address] [place] [address] Care Team Providers Care Fire Safety Inspector Name Role Phone None, Provider Primary Care Provider Unavailabl e Reason for Referral * (Routine) - Closed Specialty Diagnoses / Procedures Referred By Ehsan patel Referred To Contact Anna Gore MD [address] [place] [address] Referral ID Status Reason Start Date Expiration Date V isits Requested Visits Authorized [id number] Closed Specialty Services Required 06/29/2014 1 1 Encounter Details Date Type Department Care Team (Late st Contact Info) Description 06/29/2014 17:20 EDT - 06/29/2014 18:10 EDT Hospital Encounter [facility] [address] [place] [address] Robb Nam MD [address] [facility] [address] [place] [phone] with history of pre-term labor (Primary Dx) Discharge Disposition: Home or Self [...] Sign Reading Time Taken Comments Blood Pressure 103/61 06/29/2014 1748 EDT Pulse - - Temperature - - [...] documented in this encounter Progress Notes * Anna Martinez MD - 06/29/2014 1803 EDT L&D Triage Note C/C: vaginal discharge Teri Smith is a 34 y.o. @ 14w6d HPI: Patient presents to triage today with complaints of vaginal discharge. At noon today, when shewiped, she noticed a glob of green discharge with a few specks of blood. Since then, no further discharge or bleeding but has felt damp. She called the clinic who told her to come in for an u/s. U/S in clinical revealed CL 2.7cm with a partial post placenta previa. Currently, she feels okay. Reports some cramping, but has had cramping throughout this entire . Denies f/c/n/v. Last intercourse 2 days ago. Denies urinary symptoms. O: BP 103/61 LMP 03/17/2014 FHT: 140s by doppler SSE: small amount of white discharge, no pooling, nitrazine, or ferning; negative wet prep SVE: deferred A/P: Teri Smith is a 34 y.o. @ 14w6d presenting with vaginal discharge. Vaginal discharge: --negative wet prep and negative SROM ck --suspect normal physiologic discharge of MRSA +: --1st swab collected today, needs two more swabs to become MRSA non-cohortable Partial previa on u/s today: --will follow-up at 18-19 wk u/s --pelvic rest Discharge home Discussed with Dr. Cyril Martinez MD 06/29/2014 18:03 documented in this encounter Miscellaneous Notes * Plan of Care - Maria Elena Osuna RN - 06/29/2014 1735 EDT 1735: Pt arrived from ED and put into triage. During work today at noon noticed ++ discharge after using the bathroom and states she had a big glop of mucous and some blood clots (around pencil eraser in size). Pt was seen in the clinic for an ultrasound but no MD's available so pt sent to the EDwho sent her up here to L&D. Pt reports watery discharge which has continued but no further mucous or blood clots. Pt cannot say if there was any odor and today was the first incident of this. Ptdenies urinary symptoms, slight crampy, no fever, chills or vomiting. Dr. Martinez present, SSE now. 1747: SSE neg pooling, neg nitrazine. Wet prep, GC and chlamydia obtained. Pt MRSA +. 1752: Everything negative, pt encouraged to have 3 tests for MRSA before dellivery. 1758: Swab taken for MRSA, swab # 1, pt aware to f/u with 2 more swabs 1 month apart. documented in this encounter Plan of Treatment Upcoming Encounters Date Type Department Care Team (Late st Contact Info) Description 12/29/2024 10:20 EST Office Visit [facility] Rheumatology & Immunology - [address] [address] Micaela Hoff MD [address] [place] [address], [address] [place] [phone] Scheduled Referrals Name Type Priority Associated Diagnoses Order Schedule PROVIDER FOLLOW-UP INSTRUCTIONS Outpatient Referral Routine Ordered: 06/29/2014 documented as of this encounter Procedures Procedure Name Priority Date/Time Associated Diagnosis Comments MRSA PCR Routine 06/29/2014 17:57 EDT documented in this encounter Results * MRSA MOLECULAR DETECTION (06/29/2014 17:57 EDT) Specimen Description Nasal [facility] Result No Staphylococcus aureus detected by PCR. [facility] Specimen of unknown material (specimen) TOPOGRAPHY UNKNOWN / Unknown 06/29/2014 17:57 EDT 06/29/2014 20:32 EDT Anna Gore MD MICROBIOLOGY - GENER AL ORDERABLES Performing Organization Address City/State/[facility] Co de Phone Number [facility] [address] [place] [address] documented in this encounter Visit Diagnoses Diagnosis with history of pre-term labor- Primary documented in this encounter Orders Diet Count Last Ordered Date First Orde red Date DISCHARGE DIET 2 06/29/2014 Nursing Count Last Ordered Date First Orde red Date ACTIVITY INSTRUCTIONS 1 06/29/2014 BATHING INSTRUCTIONS 1 06/29/2014 Admission Count Last Ordered Date First Orde red Date STATUS: OUTPATIENT OBSERVATION SERVICES 1 0 06/29/2014 Transfer Count Last Ordered Date First Orde red Date NOTIFY PPS OF DISCHARGE COMPLETE 1 06/29/20 14 Discharge Count Last Ordered Date First Orde red Date DISCHARGE PATIENT 1 06/29/2014 Legal Count Last Ordered Date First Orde red Date MISCELLANEOUS DISCHARGE INSTRUCTIONS 1 06/03 documented in this encounter Additional Health Concerns Infection Onset Date Last Indicated Resolved Time 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 Care Teams Fire Safety Inspector Relationship Specialty Start Date End Date None, Provider PCP - General 06/09/14 03/01/15 documented as of this encounter
--- OUTSIDE RECORDS SUMMARY | 2024-06-10 18:46 | XMS_ITS | Encounter Summary ---
Author Organization [facility] Address [address] [place] [address] Care Team Providers Care Geophysics Teacher Name Role Phone Ladonna Maurer Primary Care Provider [phone] Reason for Visit * Reason Comments Dysuria Encounter Details Date Type Department Care Team (Late st Contact Info) Description 07/17/2012 11:45 EDT - 07/17/2012 15:18 EDT Hospital Encounter [facility] - [address] [address] Sarah Solitario MEDICAL MANAGER Unknown, Provider, Dysuria; UTI (lower urinary tract infection) Discharge Disposition: Home or Self Care Social [...] Sign Reading Time Taken Comments Blood Pressure 119/57 07/17/2012 1309 EDT Pulse 75 07/17/2012 1309 EDT Temperature 36.7 ??C (98 ??F) 07/17/2012 1309 EDT Respiratory Rate 14 07/17/2012 1309 EDT Oxygen Saturation - - Inhaled Oxygen Concentration - - Weight - - Height - - Body Mass Index - - documented in this encounter Discharge Instructions * Discharge Instructions* Sarah Solitario NP - 07/17/2012 15:20 EDT Please take a sterile urine sample to the lab at [facility] for a urine culture in 2 weeks. He did have an order in her system. Call for the results in a few days after you have delivered the culture. Also please call the walk-in clinic for the urine culture and STD test results of this visit today. Those results will probably be ready in 3 days. * Attachments The following attachments cannot be sent through Care Everywhere. * URINARY TRACT INFECTION IN WOMEN: AFTER YOUR VISIT (AMHARIC) documented in this encounter Medications at Time of Discharge Medication Sig Dispensed Refills Start Date End Date omeprazole (PRILOSEC) 40 mg capsuleIndications:Peptic ulcer disease Take 1 Cap by mouth daily. 90 Cap 4 03/02/2012 docusate sodium (COLACE) 100 mg capsule 100 mg daily as needed. 07/31/2012 levothyroxine (SYNTHROID) 88 mcg tablet TAKE ONE TABLET BY MOUTH EVERY DAY 30 Tab 11 12/20/2011 04/26/2014 sulfamethoxazole-trimetho prim (BACTRIM DS) 800-160 mg per tablet Take 1 Tab by mouth every 12 hours for 3 days. 6 Tab 1 07/17/2012 07/20/2012 documented as of this encounter Ordered Prescriptions Prescription Sig Dispensed Refills Start Date End Da te sulfamethoxazole-trimethop rim (BACTRIM DS) 800-160 mg per tablet Take 1 Tab by mouth every 12 hours for 3 days. 6 Tab 1 07/17/2012 07/20/2012 documented in this encounter Discharge Disposition Disposition Code Departure Means Destination Home or Self Care documented in this encounter ED Notes * Patrick Overton RN - 07/19/2012 0840 EDT Pt called requesting her Bactrim prescription be called into the [facility] in [place]. Rx called in. * Sarah Solitario NP - 07/17/2012 1411 EDT DOS: 07/17/2012 Chief Complaint Patient presents with ??? Dysuria The patient is a 32 y.o. female who presents today with Dysuria HPI Comments: 32-year-old female with urinary urgency, frequency and dysuria for 2 days. She has vaginal discharge For 10 days and she has a history of bacterial vaginosis. She has had generalized abdominal discomfort and constipation in the last few days and took Colace resulting in diarrhea. She has generalized mid abdominal cramping and occasional lower abdominal cramping. She has not had her period since December and she is presently in the midst of a RECREATION OFFICER workup and a colonoscopy planned. The history is provided by the patient. Dysuria Associated symptoms include nausea (Intermittentnausea), frequency and urgency. Pertinent negativesinclude no flank pain. Review of Systems Constitutional: Positive for unexpected weight change (100 pound weight loss in the last year). Negative for fever. Respiratory: Negative for cough. Gastrointestinal: Positive for nausea (Intermittentnausea). Negative for abdominal pain. [Generalized abdominal cramping after taking stool softener for constipation. She was up a great deal last night for this problem. There was no blood in her stool. Genitourinary: Positive for dysuria, urgency and frequency. Negative for flank pain. Neurological: Negative for headaches. Current Facility-Administered Medications Medication Dose Route Frequency Provider Last Rate Last Dose ??? sulfamethoxazole-trimethoprim (BACTRIM/C0-TRIMOXAZOLE DS) 800-160 mg per tablet 1 Tab 1 Tab Oral Now Sarah Solitario NP 1 Tab at 07/17/12 1512 ??? Co-Trimoxazole DS Tab STARTER PACK 1 Package Oral Now Sarah Solitario NP 1 Package at07/17/12 1512 Current Outpatient Prescriptions Medication Sig Dispense Refill ??? docusate sodium (COLACE) 100 mg capsule 100 mg daily as needed. ??? sulfamethoxazole-trimethoprim (BACTRIM DS) 800-160 mg per tablet Take 1 Tab by mouth every 12 hours for 3 days. 6 Tab 1 ??? omeprazole (PRILOSEC) 40 mg [...] Stroke Mother ??? Heart Disease Father 50 [place] ??? Diabetes Father ??? Thyroid Cancer/Nodule Maternal Aunt Cancer ??? Heart Disease Maternal Grandmother [place] ??? Diabetes Maternal Grandmother ??? Cancer Maternal Aunt thyroid BP 119/57 Pulse 75 Temp(Src) 98 ??F (36.7 ??C) (Oral) Resp 14 Physical Exam [nursing notereviewed. Constitutional: She appears well-nourished. No distress. Cardiovascular: Normal rate, regular rhythm and normal heart sounds. Pulmonary/Chest: Effort normal and breath sounds normal. Abdominal: Soft. Bowel sounds are normal. She exhibits no distension. There is no tenderness. Thereis no CVA tenderness. Genitourinary: Vesna Nash, RN present during entire RECREATION OFFICER exam. Patient encouraged to stop exam if needed for anyreason, but she tolerated pelvic exam without difficulty. It is noted that cervix was distant to speculum and she states this is the usual case. Cervix not visualized. Noted moderate amount of brown/red old blood in vaginal vault. Scant white discharge visualized. Consult orders: None PCP: AUSTIN OWEN Results for orders placed during the hospital encounter of 07/17/12 POCT URINE DIPSTICK Component Value Range Color YELLOW Clarity, UA Clear Glucose Neg Neg Bilirubin Neg Neg Ketones Neg Neg Specific [place] <=1.005 1.001 - 1.035 Blood 3+ (*) Neg pH 6.5 4.6 - 8.0 Protein Neg Neg Urobilinogen 0.2 0.2 - 1.0 (E.U./dl) Nitrite Neg Neg Leuk Esterase 1+ (*) Neg Tech ID [id number] TEST, URINE Component Value Range Result- Test, Ur Negative URINE MICROSCOPIC ONLY Component Value Range WBC, UA 10 to 50 0 - 5 (/HPF) RBC, UA 1 to 5 0 - 5 (/HPF) Squam Epithel, UA Few (*) None seen (/HPF) Renal Epithel, UA None seen None seen (/HPF) Bacteria, UA Rare (*) None seen (/HPF) Crystals, UA None seen Casts, UA None seen UA Comment Microscopic results WET PREP Component Value Range Specimen Description Vagina Direct Exam No Trichomonas or yeast present. Direct Exam No clue cells present Direct Exam Performed at [facility], [place], [place] Report Status 07/17/2012 Final ED/[facility] ADD-ON Component Value Range Tests to be added URINE CULTURE Number for problems [id number] ([facility]) Radiology orders: None Procedures Course: A medical screening exam was performed.VSS And afebrile Differentials considered but not limited to: UTI, STD, IBS Social: Relocating from [facility] to the [facility]. She has a new job starting in thenear future. She has an agreement with [facility] to pay for her medical bills. Past medical history: She had a Depakote injection in November and did not like this method of birthcontrol. She had a period in December but none since. It does appear that she was demonstrating today when exam done and blood found in the vaginal vault. Discussion: Presenting acute symptoms are UTI and will treat for this. Due to complicated RECREATION OFFICER/GI concerns of no menstruation since December, and thyroid disorder, I will culture the urine and advise for test of cure culture. She knows to call the clinic for the results of her initial urine culture from this appointment and for the urine culture that she will drop off in 2 weeks. Wet prep is negative and GC Chlamydia pending. First dose of Bactrim OB given to her in the clinic. A starter pack will be given for medication onSunday. She will warp picker her prescription at [facility] on Thursday. If she still has symptoms after 3 days of Bactrim she will get a refill and take for a full week. She is returning to the [facility] and reestablishing her care. She is seen in rheumatology. She will would like to see a primary care doctor and/or a RECREATION OFFICER doctor before October to help her to manage her complicated health situation. Therefore I have asked the walk in staff in a car office to coordinate a new patient appointment for her as soon as possible. Evaluation: Patient appreciates her care in the clinic and agrees with plan. Disposition: Discharged The patient's pain was managed to an adequate level weighing risk vs. benefit of further medications. Upon departure from the Walk In [facility], the patient's pain was 0 on a zero to ten scale. Condition at departure from the [facility] In [facility]: Good 1. Dysuria POCT URINE DIPSTICK, TEST, URINE, POCT URINE DIPSTICK, TEST, URINE, URINE MICROSCOPIC ONLY, URINE MICROSCOPIC ONLY, WET PREP, CHLAMYDIA/GC AMPLIFIED, ED/WICC ADD-ON, WET PREP, CHLAMYDIA/GC AMPLIFIED, ED/[facility] ADD-ON, BACTERIAL CULTURE, URINE 2. UTI (lower urinary tract infection) Dr. Theodore Tamez was available for consultation during my care of this patient. MDM Number of Diagnoses or Management Options Dysuria: UTI (lower urinary tract infection): Amount and/or Complexity of Data Reviewed Clinical lab tests: ordered and reviewed (UPT negative. Urine dipstick-positive for blood 3+, leuks1+. Urine micro-rare for bacteria, CBC 10-50, few squams. Gonorrhea/chlamydia test pending. Wet prep negative.) Decide to obtain previous medical records or to obtain history from someone other than the patient:yes (05/13/12 Rheumatology note excerpt: MEDICATIONS: Synthroid 88 mcg daily and Prilosec 40 mg daily. SOCIAL HISTORY: She is , has a 4-year-old baby girl. 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 No itching or pain, not raised. Also, swollen glands in the right neck and poor memory, easy bruising, heartburn. IMPRESSION: Multijoint and muscle pains as well [...] on the results of her GI workup. ) 07/17/2012 15:19 * Judy Nash RN - 07/17/2012 1324 EDT Pt is currently going thru GI W/U for abdominal Pain. Not having anything new today. Dysuria, frequency, and hematuria stating today. documented in this encounter Miscellaneous Notes * Scanned Note-Null - FIELD LIABILITY GENERALIST, SCAN 2 - 07/22/2012 0814 EDT documented in this encounter Plan of Treatment Upcoming Encounters Date Type Department Care Team (Late st Contact Info) Description 12/29/2024 10:20 EST Office Visit [facility] Rheumatology & Immunology - [facility] [address] [place] [address] Micaela Hoff MD [address] [facility], [address] [place] [address] documented as of this encounter Procedures Procedure Name Priority Date/Time Associated Diagnosis Comments CHLAMYDIA/N. GONORRHOEAE AMPLIFIED NUCLEIC ACID Routine 07/17/2012 14:42 EDT Dysuria WET PREP STAT 07/17/2012 14:41 EDT Dysuria ED/URGENT CARE ADD-ON STAT 07/17/2012 14:30 EDT Dysuria URINE SEDIMENT (MICRO) WITHOUT REFLEX TO CULTURE STAT 07/17/2012 11:55 EDT Dysuria TEST, URINE STAT 07/17/2012 11:55 EDT Dysuria BACTERIAL CULTURE, URINE Routine 07/17/2012 11:55 EDT POCT URINE DIPSTICK, CLINITEK STAT 07/17/2012 11:52 EDT Dysuria documented in this encounter Results * CHLAMYDIA/GC AMPLIFIED (07/17/2012 14:42 EDT) Specimen Description Cervix [facility] Comment:Performed at [facility], [place], [place] Chlamydia Result No Chlamydia trachomatis DNA detected by training facilitator mediated amplification. [facility] GC Result No Neisseria gonorrhoeae DNA detected by training facilitator mediated amplification. [facility] Specimen of unknown material (specimen) TOPOGRAPHY UNKNOWN / Unknown 07/17/2012 14:42 EDT 07/17/2012 14:45 EDT Sarah Solitario NP MICROBIOLOG Y - GENERAL ORDERABLES [facility] [address] [place] [address] * WET PREP (07/17/2012 14:41 EDT) Specimen Description Vagina [facility] Direct Exam No Trichomonas or yeast present. [facility] Direct Exam No clue cells present [facility] Direct Exam Performed at [facility], [place], [place] [facility] Report Status 07/17/2012 Final [facility] Specimen of unknown material (specimen) VAGINAL STRUCTURE / Unknown 07/17/2012 14:41 EDT 07/17/2012 14:45 EDT Sarah Solitario NP MICROBIOLOG Y - GENERAL ORDERABLES Performing Organization Address [facility] de Phone Number [facility] [address] [place] [address] * ED/W[facility] ADD-ON (07/17/2012 14:30 EDT) Tests to be added URINE CULTURE [facility] Number for problems [id number] (W[facility]) [facility] Comment:Performed at [facility] [place] [address], [place] 07/17/2012 14:3 0 EDT 07/17/2012 14:31 EDT Sarah Solitario MEDICAL MANAGER HEMATOLOGY & PF4 ORDERABLES Performing Organization Address [facility] de Phone Number [facility] [address] [place] [address] * BACTERIAL CULTURE, URINE (07/17/2012 11:55 EDT) Specimen Description Urine [facility] Specimen Description Performed at [facility] [address], [place] [facility] Result Greater than 100,000 CFU/ml ESCHERICHIA COLI [facility] Report Status 07/19/2012 Final [facility] ORGANISM ESCHERICHIA COLI [facility] URINE / Unknown 07/17/2012 1 1:55 EDT 07/17/2012 14:30 EDT Narrative Organism Antibiotic Method Susceptibility Escherichia coli Ampicillin SUSCEPTIBILITY (YAMILETH) >=32: Resistant Escherichia coli Cefazolin SUSCEPTIBILITY (YAMILETH) <=4: Susceptible Escherichia coli Gentamicin SUSCEPTIBILITY (YAMILETH) <=1: Susceptible Escherichia coli Trimethoprim-Sulfame th oxazole SUSCEPTIBILITY (YAMILETH) <=20: Susceptible Escherichia coli Nitrofurantoin SUSCEPTIBILITY (YAMILETH) 32: Susceptible Escherichia coli Tobramycin SUSCEPTIBILITY (YAMILETH) <=1: Susceptible Escherichia coli Amikacin SUSCEPTIBILITY (YAMILETH) <=2: Susceptible Escherichia coli Piperacillin SUSCEPTIBILITY (YAMILETH) >=128: Resistant Escherichia coli Ceftriaxone SUSCEPTIBILITY (YAMILETH) <=1: Susceptible Escherichia coli Ciprofloxacin SUSCEPTIBILITY (YAMILETH) <=0.25: Susceptible Escherichia coli Meropenem SUSCEPTIBILITY (YAMILETH) <=0.25: Susceptible Comment:Greater than 100,000 CFU/ml ESCHERICHIA COLI Sarah Solitario NP MICROBIOLOG Y - GENERAL ORDERABLES Performing Organization Address [facility] de Phone Number [facility] [address] [address] * (ABNORMAL) URINE MICROSCOPIC ONLY (07/17/2012 11:55 EDT) WBC, UA 10 to 50 0 - 5 /HPF [facility] RBC, UA 1 to 5 0 - 5 /HPF [facility] Squam Epithel, UA Few(A) None seen /HPF [facility] Renal Epithel, UA None seen None seen /HPF [facility] Bacteria, UA Rare(A) None seen /HPF [facility] Crystals, UA None seen /HPF [facility] Hyaline Casts, UA None seen /LPF [facility] UA Comment Microscopic results [facility] Comment: are unreliable on urines unrefrig >2hrs or refrig >8hrs. Performed at [facility], [place], [place] Urine specimen (specimen) URINE / Unknown 07/17/2012 11:55 EDT 07/17/2012 12:02 EDT Theodore Tamez MD URINALYSIS ORD ERABLES Performing Organization Address [facility] de Phone Number [facility] [address] [address] * TEST, URINE (07/17/2012 11:55 EDT) Result- Test, Ur Negative [facility] Comment: NOTE: False negative results may occur in women who are beyond 5-8 weeks gestation. Diagnosis of should be based on a correlation of test results with typical clinical signs and symptoms. Performed at [facility], [place], [place] Urine specimen (specimen) URINE / Unknown 07/17/2012 11:55 EDT 07/17/2012 12:01 EDT Theodore Tamez MD URINALYSIS ORD ERABLES Performing Organization Address [facility] Co de Phone Number [facility] [address] [place] [address] * (ABNORMAL) POCT URINE DIPSTICK (07/17/2012 11:52 EDT) Color YELLOW [facility] Clarity, UA Clear [facility] Glucose Neg Neg [facility] Bilirubin Neg Neg [facility] Ketones Neg Neg [facility] Specific [place] <=1.005 1.001 - 1.035 [facility] Blood 3+(A) Neg [facility] pH 6.5 4.6 - 8.0 [facility] Protein Neg Neg [facility] Urobilinogen 0.2 0.2 - 1.0 E.U./dl [facility] Nitrite Neg Neg [facility] Leuk Esterase 1+(A) Neg KAROLINA [facility] playground director ID [id number] [facility] Comment[facility] [place] Urine specimen (specimen) 07/17/2012 11:52 EDT 07/17/2012 11:58 EDT Theodore Tamez MD POINT OF CARE TEST ORDERABLES Performing Organization Address [facility] Co de Phone Number [facility] [address] [place] [address] documented in this encounter Visit Diagnoses Diagnosis Dysuria UTI (lower urinary tract infection) Urinary tract infection, site not specified documented in this encounter Administered Medications Inactive Administered Medications - up to 3 most recent administrations Medication Order MAR Action Action Date Dose Rate Site Co-Trimoxazole DS Tab STARTER PACK 1 Package, oral, NOW X1, 1 dose, On 07/17/12 at 1530, Routine Given 07/17/2012 15:12 EDT 1 Package sulfamethoxazole-trimethoprim (BACTRIM/C0-TRIMOXAZOLE DS) 800-160 mg per tablet 1 Tab 1 Tablet, oral, NOW X1, 1 dose, On 07/17/12 at 1530, Routine Given 07/17/2012 15:12 EDT 1 Tablet documented in this encounter Historical Medications * This list may reflect changes made after this encounter. Medication Sig Dispensed Refills Start Date End Date docusate sodium (COLACE) 100 mg capsule 100 mg daily as needed. 07/31/2012 added in this encounter Active and Recently Administered Medications Times are shown in EDT. Scheduled Medication Order 07/15/2012 07/16/2012 07/17/2012 Co-Trimoxazole DS Tab STARTER PACK (COMPLETED) 1 Package, oral, NOW X1, 1 dose, On 07/17/12 at 1530, Routine 1512 (Given - Provid er: Judy Nash RN) sulfamethoxazole-trimethoprim (BACTRIM/C0-TRIMOXAZOLE DS) 800-160 mg per tablet 1 Tab (COMPLETED) 1 Tablet, oral, NOW X1, 1 dose, On 07/17/12 at 1530, Routine 1512 (Given - Provid er: Judy Nash RN) documented in this encounter Additional Health Concerns Infection Onset Date Last Indicated Resolved Time 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 Care Teams Geophysics Teacher Relationship Specialty Start Date End Date Ladonna Maurer PA [address] [place] [id number] PCP - General 05/12/12 01/24/13 documented as of this encounter
--- OUTSIDE RECORDS SUMMARY | 2024-06-10 18:46 | XMS_ITS | Encounter Summary ---
Author Organization [facility] Address [address] [place] [address] Care Team Providers Care Tv Production Assistant Name Role Phone None, Provider Primary Care Provider Unavailabl e Reason for Visit * Reason Onset Date Comments Injections 06/27/2014 Ary Encounter Details Date Type Department Care Team (Late st Contact Info) Description 06/27/2014 Telephone [facility] Obstetrics & Midwifery - [facility] [address], [place] [phone] Duyen Haro, RN Injections ([facility]) Social History Tobacco Use Types Packs/Day Years [...] Miscellaneous Notes * Telephone Encounter - Duyen Haro, RN - 06/27/2014 1129 EDT Spoke with staff at Dr. Smith's office 2 weeks ago, and followed up today for purposes of documentation. Teri is all set to receive Ary injections at their office beginning on 07-06-14. Cureascriptscalled today, the phone number they had to contact her was incorrect, given phone number we have listed. They will contact her, she may need financial assistance, but [facility] will become involved and reach out to her. documented in this encounter Plan of Treatment Upcoming Encounters Date Type Department Care Team (Late st Contact Info) Description 12/29/2024 10:20 EST Office Visit [facility] Rheumatology & Immunology - [address] [phone] Micaela Hoff MD [address] [place] [address], [address] [place] [address] documented as of this encounter Visit Diagnoses Not on filedocumented in this encounter Additional Health Concerns Infection Onset Date Last Indicated Resolved Time 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 Care Teams Tv Production Assistant Relationship Specialty Start Date End Date None, Provider PCP - General 06/09/14 03/01/15 documented as of this encounter
--- OUTSIDE RECORDS SUMMARY | 2024-06-10 18:47 | XMS_ITS | Encounter Summary ---
Author Organization [facility] Address [address] [place] [address] Care Team Providers Care Optimization Engineer Name Role Phone Yair Dow MD Primary Care Provider [phone] Encounter Details Date Type Department Care Team (Late st Contact Info) Description 03/01/2012 21:38 EDT - 03/01/2012 23:59 EDT Hospital Encounter [facility] [address] [place] [address] Kaylynn Rice MD [address] [phone] Discharge Disposition: Auto Discharge Social History Tobacco [...] Sig Dispensed Refills Start Date End Date Cholecalciferol, Vitamin D3, (VITAMIN D) 2,000 unit Cap Take by mouth daily. 01/23/2011 012 levothyroxine (SYNTHROID) 88 mcg tablet TAKE ONE TABLET BY MOUTH EVERY DAY 30 Tab 11 12/20/2011 04/26/2014 omeprazole (PRILOSEC) 40 mg capsuleIndications:Peptic ulcer disease Take 1 Cap by mouth daily. 90 Cap 4 07/14/2011 03/02/2012 documented as of this encounter Discharge Disposition Disposition Code Departure Means Destination Auto Discharge Home documented in this encounter Plan of Treatment Upcoming Encounters Date Type Department Care Team (Late st Contact Info) Description 12/29/2024 10:20 EST Office Visit [facility] Rheumatology & Immunology - [address] [address] Micaela Hoff MD [address] [facility], [address] [place] [address] documented as of this encounter Visit Diagnoses Not on filedocumented in this encounter Additional Health Concerns Infection Onset Date Last Indicated Resolved Time 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 Care Teams Optimization Engineer Relationship Specialty Start Date End Date Yair Dow MD [address] [place] [phone] PCP - General 06/03/11 03/08/12 documented as of this encounter
--- OUTSIDE RECORDS SUMMARY | 2024-06-10 18:47 | XMS_ITS | Encounter Summary ---
Author Organization [facility] Address [address] [place] [address] Care Team Providers Care Mat Packer Name Role Phone Yair Dow MD Primary Care Provider [phone] Reason for Visit * Reason Onset Date Comments Cellulitis 10/14/2011 MRSA INFECTION - SAW DR HERNANDEZ 10/13/11 Encounter Details Date Type Department Care Team (Late st Contact Info) Description 10/14/[address] [address] Yair Dow MD [address] [place] [address] [address] Cellulitis (MRSA INFECTION - SAW DR HERNANDEZ 10/13/11) Social History Tobacco Use Types Packs/Day Years Used Date Smoking Tobacco: Every Day Smokeless Tobacco: Never Alcohol Use Standard Drinks/Week Comments Yes 0 (1 standard drink = 0.6 oz pur e alcohol) rare Sex and Gender Information Value Date Recorded Sex Assigned at Not on file Gender Identity Not on file Sexual Orientation Not on file documented as of this encounter Miscellaneous Notes * Telephone Encounter - Stephanie Coats LPN - 10/14/2011 1644 EST Patient concerned but has not been able to keep leg up and working on it all day. Is headed home totake medication and elevate leg. Will observe red line and watch over night. Doesn't feel feverish and will watch and call in am to report progress. Patient verbalizes understanding and no barriers were identified. * Telephone Encounter - Babs Casanova - 10/14/[address] Hernandez yesterday for MRSA infection, seems to be progressively worse today. Would like a call back, very concerned. documented in this encounter Plan of Treatment Upcoming Encounters Date Type Department Care Team (Late st Contact Info) Description 12/29/2024 10:20 EST Office Visit [facility] Rheumatology & Immunology - [address] [address] Micaela Hoff MD [address] [facility], [address] [place] [phone] documented as of this encounter Visit Diagnoses Not on filedocumented in this encounter Care Teams Mat Packer Relationship Specialty Start Date End Date Yair Dow MD [address] [place] [phone] PCP - General 06/03/11 03/08/12 documented as of this encounter
--- OUTSIDE RECORDS SUMMARY | 2024-06-10 18:47 | XMS_ITS | Encounter Summary ---
Author Organization [facility] Address [address] [place] [address] Care Team Providers Care Stevedore Hold Name Role Phone Ladonna Maurer Primary Care Provider [phone] Reason for Visit * Reason Comments Abdominal Pain Pt abm to traige w/ upright posutre, no acute distress observed, states that she has abd pain 25/05. States that she thinks she has IBS. last BM 2 hrs ago, liquid. No recent travel. Appetite has been decreased, has been stressed due to moving. Encounter Details Date Type Department Care Team (Late st Contact Info) Description 05/11/2011 19:30 EDT - 05/11/2011 22:[address] [facility] Emergency Department - [address] [id number] Juan Alberto Farley PA-Jose A [address] [facility], [address] [place] [address] Emergency, MD Fede Chronic generalized abdominal pain Discharge Disposition: Home or Self Care Social History Tobacco Use Types Packs/Day Years Used Date Smoking Tobacco: Former Smokeless Tobacco: Never Alcohol Use Standard Drinks/Week Comments Yes 0 (1 standard drink = 0.6 oz pur e alcohol) rare Sex and Gender Information Value Date Recorded Sex Assigned at Not on file Gender Identity Not on file Sexual Orientation Not on file documented as of this encounter Last Filed Vital Signs Vital Sign Reading Time Taken Comments Blood Pressure 134/77 05/11/20112021 EDT Pulse 77 05/11/20112021 EDT Temperature 36.2 ??C (97.2 ??F) 05/11/20112021 EDT Respiratory Rate 15 05/11/20112021 EDT Oxygen Saturation 100% 05/11/20112021 EDT Inhaled Oxygen Concentration - - Weight 95.3 kg (210 lb) 05/11/20112021 EDT Height 170.2 cm (5' 7) 05/11/20112021 EDT Body Mass Index 32.89 05/11/20112021 EDT documented in this encounter Discharge Instructions * Discharge Instructions* Juan Alberto Farley PA - 05/11/2011 22:11 EDT Drink plenty of fluids Advance diet as tolerated Begin with mild foods * Attachments The following attachments cannot be sent through Care Everywhere. * ABDOMINAL PAIN IN ADULTS: AFTER YOUR VISIT ([place]) * IRRITABLE BOWEL SYNDROME: AFTER YOUR VISIT ([place]) documented in this encounter Medications at Time of Discharge Medication Sig Dispensed Refills Start Date End Date Cholecalciferol, Vitamin D3, (VITAMIN D) 2,000 unit Cap Take by mouth daily. 01/23/2011 esomeprazole (NEXIUM) 40 mg capsule Take 40 mg by mouth every morning before breakfast. 07/14/2011 LEVONORGESTREL (MIRENA IU) by Intrauterine route. Every 5 years 10/13/2011 levothyroxine (SYNTHROID) 25 mcg tablet Take 100 mcg by mouth daily. 06/12/2011 documented as of this encounter Discharge Disposition Disposition Code Departure Means Destination Home or Self [facility] documented in this encounter ED Notes * Juan Alberto Farley PA - 05/11/20112204 EDT DOS: 05/11/2011 Chief Complaint Patient presents with ??? Abdominal Pain Pt abm to traige w/ upright posutre, no acute distress observed, states that she has abd pain 25/05.States that she thinks she has IBS. last BM 2 hrs ago, liquid. No recent travel. Appetite has been decreased, has been stressed due to moving. The patient is a 31 y.o. female who presents today with Abdominal Pain HPI Comments: This 31-year-old female presents with complaints of generalized abdominal pain over the past year that is present daily and has been increasing in the past 2-3 months. Patient is concerned as she believes she saw a pulse around her bellybutton yesterday. She denies any nausea, vomiting, fever, chills, dysuria, urinary frequency or flank pain. The patient has no history of chronic back pain that has also been present for the year without any recent change. She had a bowel movement today, described as loose, without blood. The patient notes she has alternating episodes of constipation and diarrhea. Patient just moved here in the last 2 days from a different part of [place]. She is trying to obtain a primary care physician and states she is waiting for her medical records to [place]. The history is provided by the patient. Abdominal Pain This is a chronic problem. The current episode started more than 1 week ago. The problem occurs constantly. The pain is located in the generalized abdominal region. Associated symptoms include diarrhea. Pertinent negatives include fever, nausea, vomiting, constipation, dysuria and frequency. Review of Systems Constitutional: Negative for fever, chills and appetite change. Respiratory: Negative for shortness of breath. Cardiovascular: Negative for chest pain. Gastrointestinal: Positive for abdominal pain and diarrhea. Negative for nausea, vomiting, constipation and blood in stool. Genitourinary: Negative for dysuria, frequency and flank pain. Musculoskeletal: Positive for back pain (chronic). Negative for gait problem. Skin: Negative for rash and color change. Neurological: Negative for numbness. No past medical history on file. No past surgical history on file. No Known Allergies History Substance Use Topics ??? Smoking status: Former Smoker ??? Smokeless tobacco: Never Used ??? Alcohol Use: Yes rare Family History Problem Relation Age of Onset ??? High Blood Pressure Mother brain aneurysm ??? Stroke Mother ??? Heart Disease Father 50 [place] ??? Diabetes Father ??? Cancer Maternal Aunt thyroid ??? Heart Disease Maternal Grandmother [place] ??? Diabetes Maternal Grandmother ??? Cancer Maternal Aunt thyroid Vital Signs Temp: 36.2 ??C (97.2 ??F) Temp src: Tympanic Pulse: 77 Resp: 15 SpO2: 100 % BP: 134/77 mmHg BP Device: BP Machine Patient Position: Sitting BP Cuff Location: Left arm O2 Device: None (Room air) Physical Exam Nursing note and vitals reviewed. Constitutional: She is oriented to person, place, and time. Vital signs are normal. She appears well-developed and well-nourished. She is active. Non-toxic appearance. She does not appear ill. No distress. Obese Sitting in chair, moves without difficulty HENT: Head: Normocephalic and atraumatic. Eyes: Extraocular motions are normal. Neck: Normal range of motion. Cardiovascular: Normal rate, regular rhythm, normal heart sounds and intact distal pulses. Pulmonary/Chest: Effort normal and breath sounds normal. Abdominal: Soft. Normal appearance and bowel sounds are normal. She exhibits no distension, no abdominal bruit and no pulsatile midline mass. Generalized Tenderness is present. She has no rigidity, no rebound, no guarding and no CVA tenderness. Musculoskeletal: Normal range of motion. Neurological: She is alert and oriented to person, place, and time. Skin: Skin is warm and dry. Multiple tattoos Psychiatric: She has a normal mood and affect. Her behavior is normal. Radiology orders: None Procedures ED Course: A medical screening exam was performed. Patient with generalized tenderness on exam, however nonfocal, without rebound, guarding or rigidity. She notes she has had abdominal pain for one year. Deniesnausea, vomiting, fever or urinary symptoms. I do not think she needs imaging at this time. AdvisedPCP follow-up for likely irritable bowel syndrome. She was given abdominal precautions to return tot ER. Disposition: Discharged The patient's pain was managed to an adequate level weighing risk vs. benefit of further medications. Upon departure from the Emergency Department, the patient's pain was 4 on a zero to ten scale. Condition at departure from the Emergency Department: Good Discharge Prescriptions New Prescriptions No Discharge Prescriptions for this patient MDM Number of Diagnoses or Management Options Chronic generalized abdominal pain: Diagnosis management comments: 3 Amount and/or Complexity of Data Reviewed Review and summarize past medical records: yes 1. Chronic generalized abdominal pain (789.07L) PCP: AUSTIN OWEN was available for supervision. 05/13/2011 10:59 * Siobhan Dalton RN - 05/11/20112023 EDT Pt has mildly anxious affect. * Siobhan Dalton RN - 05/11/20112021 EDT Denies any dysuria. Has IUD, no regular menses. is only sexual partner. documented in this encounter Miscellaneous Notes * Scanned Note-Null - Hand Expansion Envelope Maker, Scan - 05/11/2011 0000 EDT documented in this encounter Plan of Treatment Upcoming Encounters Date Type Department Care Team (Late st Contact Info) Description 12/29/2024 10:[address] [facility] Rheumatology & Immunology - [address] [address] Micaela Hoff MD [address] [facility], [address] [place] [phone] documented as of this encounter Visit Diagnoses Diagnosis Chronic generalized abdominal pain Abdominal pain, generalized documented in this encounter Care Teams Stevedore Hold Relationship Specialty Start Date End Date Ladonna Maurer PA [address] [place] [address] PCP - General 05/20/10 06/02/11 documented as of this encounter
--- OUTSIDE RECORDS SUMMARY | 2024-06-10 18:47 | XMS_ITS | Encounter Summary ---
Author Organization [facility] Address [address] [place] [address] Care Team Providers Care Verifying Machine Operator Name Role Phone Yair Dow MD Primary Care Provider [phone] Reason for Referral * Consult (Routine/Next Available) - Closed Specialty Diagnoses / Procedures [facility] Referred To Contact Rheumatology Diagnoses Fatigue Weakness Myalgia Kaylynn Rice MD [address] [address] [place] [address] Rheumatology [address] [place] [address] Referral ID Status Reason Start Date Expiration Date V isits Requested Visits Authorized [id number] Closed Specialty Services Required 03/02/2012 1 1 Question Answer Reason for Request: Worsening fatigue, myalgias, weakness. Rheum labs neg, ?fibromyalgia. Reason for Visit * Reason Comments Strep Throat ? Urinary Tract Infection medicated- sympt oms returned Results MRI Medication Management omeprozole Encounter Details Date Type Department Care Team (Late st Contact Info) Description 03/02/2012 15:00 EDT Office Visit [address] [address] Kaylynn Rice MD [address] [address] Urgency of urination (Primary Dx); Peptic ulcer disease; Pharyngitis; UTI (lower urinary tract infection); Fatigue; Weakness; Myalgia Social History Tobacco Use Types Packs/Day Years [...] Sign Reading Time Taken Comments Blood Pressure 110/80 03/02/2012 1513 EDT Pulse 70 03/02/2012 1513 EDT Temperature 36.9 ??C (98.4 ??F) 03/02/2012 1513 EDT Respiratory Rate - - Oxygen Saturation - - Inhaled Oxygen Concentration - - Weight - - Height - - Body Mass Index - - documented in this encounter Ordered Prescriptions Prescription Sig Dispensed Refills Start Date End Da te omeprazole (PRILOSEC) 40 mg capsuleIndications:Peptic ulcer disease Take 1 Cap by mouth daily. 90 Cap 4 03/02/2012 ibuprofen (MOTRIN) 600 mg tabletIndications:Pharyngi tis Take 1 Tab by mouth every 6 hours as needed for Pain. 60 Tab 0 03/02/2012 05/12/2012 fluconazole (DIFLUCAN) 150 mg tabletIndications:UTI (lower urinary tract infection) Take 1 Tab by mouth daily. 2 Tab 0 03/02/2012 05/12/2012 sulfamethoxazole-trimethop rim (BACTRIM/C0-TRIMOXAZOLE DS) 800-160 mg per tabletIndications:UTI (lower urinary tract infection) Take 1 Tab by mouth 2 times daily for 7 days. 14 Tab 0 03/02/2012 03/09/2012 documented in this encounter Progress Notes * Stephany Lambert - 03/02/2012 4630 EDT POC rapid strep negative POC urine analysis abnormal I was supervised by Dr. Kaylynn Rice who was present and immediately available in the office suite. Stephany Lambert 03/02/2012 15:53 * Kaylynn Rice MD - 03/02/2012 1530 EDT Subjective: Patient ID: Teri Haro is an 31 y.o. female. Chief Complaint Patient presents with ??? Strep Throat ? Urinary Tract Infection medicated- symptoms returned ??? Results MRI ??? Medication Management omeprozole HPI 1. ?UTI Symptoms initially started 3 weeks ago. Saw a doctor up in the [facility] and treated with nitrofurantoin x5 days. Symptoms resolved, but now thinks that symptoms are coming back. +Dysuria +Urgency and Frequency 2. Also ?Strep ~1 week ago, right sided sore throat. Noted swollen lymph node on that side as well. Developed DELGADILLO, fatigue. 3-4 days ago, symptoms worsened. Developed bilateral throat pain and swollen lymph nodes Symptoms getting worse. Feels sweaty Almost went to ED symptoms were so bad No sick contacts known 3. GI issues Thursday will be seeing GI- Dr Johnston Needs refill on ompeprazole Abd pain remains the same. Fluctuates between diarrhea and constipation 4. Fatigue and myalgias remain the same. Has been doing some reading about fibromyalgia and wonders if she may have this. Remains unable to work because of fatigue. Feels weak. Patient Active Problem List Diagnoses ??? Hypothyroid ??? TAMMY (obstructive sleep apnea) ??? Mena's thyroiditis ??? Tobacco use disorder ??? Palpitations ??? Depressive disorder, not elsewhere classified ??? Unspecified hypothyroidism ??? Murmur ??? Atypical chest pain ??? Cervical high risk HPV (human papillomavirus) test positive Past Medical History Diagnosis Date ??? Obese ??? History of tobacco use ??? Thyroid disease Current Outpatient Prescriptions on File Prior to Visit Medication Sig Dispense Refill ??? levothyroxine (SYNTHROID) 88 mcg tablet TAKE ONE TABLET BY MOUTH EVERY DAY 30 Tab 11 ??? omeprazole (PRILOSEC) 40 mg capsule Take 1 Cap by mouth daily. 90 Cap 4 ??? Cholecalciferol, Vitamin D3, (VITAMIN D) 2,000 unit Cap Take by mouth daily. No Known Allergies Social History Substance Use Topics ??? Smoking status: Current Everyday Smoker -- 1.0 packs/day ??? Smokeless tobacco: Never Used ??? Alcohol Use: 10.0 oz/week 2 Glasses of wine per week rare ROS - See HPI Objective: BP 110/80 Pulse 70 Temp(Src) 36.9 ??C (98.4 ??F) (Tympanic) LMP 12/17/2011 Physical Exam Vitals reviewed. Constitutional: She appears well-developed and well-nourished. No distress. HENT: Head: Normocephalic and atraumatic. Right Ear: Tympanic membrane, external ear and ear canal normal. Left Ear: Tympanic membrane, external ear and ear canal normal. Nose: Nose normal. Mouth/Throat: Uvula is midline and mucous membranes are normal. Posterior oropharyngeal erythema present. No oropharyngeal exudate or tonsillar abscesses. Eyes: Conjunctivae, EOM and lids are normal. Pupils are equal, round, and reactive to light. No scleral icterus. Abdominal: Normal appearance and bowel sounds are normal. There is no tenderness. Skin: Skin is warm and dry. No rash noted. Psychiatric: She has a normal mood and affect. Her speech is normal and behavior is normal. Judgment and thought content normal. Cognition and memory are normal. 03/02/2012 15:41 Color DARK YELLOW Clarity, UA CLOUDY Specific [place] >=1.030 pH 6.0 Glucose Neg Bilirubin Neg Ketones Neg Blood 3+ (A) Protein 2+ (A) Urobilinogen 0.2 Nitrite Neg Leuk Esterase 2+ (A) Rapid strep negative Assessment/Plan Teri was seen today for strep throat, urinary tract infection, results and medication management. Urgency of urination - POCT Urine Dipstick- results as above. Concerning for UTI. Uti (lower urinary tract infection) - Bacterial Culture, Urine. Will send urine for culture. Will treat: - sulfamethoxazole-trimethoprim (BACTRIM/C0-TRIMOXAZOLE DS) 800-160 mg per tablet; Take 1 Tab by mouth 2 times daily for 7 days. Patient requests diflucan given abx use. - fluconazole (DIFLUCAN) 150 mg tablet; Take 1 Tab by mouth daily. Pharyngitis - POCT Rapid Strep Screen- NEG. Will send for culture. - Pharyngitis Culture Suspect viral etiology. Recommend rest, fluids, will give Rx for ibuprofen as insurance will cover it. - ibuprofen (MOTRIN) 600 mg tablet; Take 1 Tab by mouth every 6 hours as needed for Pain. Peptic ulcer disease - omeprazole (PRILOSEC) 40 mg capsule; Take 1 Cap by mouth daily. Refilled today. Fatigue and Weakness and Myalgia Has had large w/u without clear etiology of symptoms. ?Fibromyalgia. Want to make sure we've ruled all things out given the abrupt onset of this. Will consult rheum for further eval. - Ambulatory Consult Rheumatology Kaylynn Rice MD documented in this encounter Plan of Treatment Upcoming Encounters Date Type Department Care Team (Late st Contact Info) Description 12/29/2024 10:20 EST Office Visit [facility] Rheumatology & Immunology - [address] [address] Micaela Hoff MD [address] [place] [address], [address] [place] [address] Scheduled Referrals Name Type Priority Associated Diagnoses Order Schedule AMB CONSULT RHEUMATOLOGY Outpatient Referral Routine Fatigue Weakness Myalgia Ordered: 03/02/2012 documented as of this encounter Procedures Procedure Name Priority Date/Time Associated Diagnosis Comments BACTERIAL CULTURE, URINE Routine 03/02/2012 16:02 EDT UTI (lower urinary tract infection) POCT URINE DIPSTICK, CLINITEK Routine 03/02/2012 15:41 EDT Urgency of urination GROUP A STREP CULTURE Routine 03/02/2012 15:38 EDT Pharyngitis POCT RAPID STREP SCREEN Routine 03/02/2012 15:34 EDT Pharyngitis documented in this encounter Results * BACTERIAL CULTURE, URINE (03/02/2012 16:02 EDT) Specimen Description Urine [facility] Result Less than 10,000 CFU/ml Mixed gram positive growth [facility] Report Status 03/04/2012 Final [facility] Urine specimen (specimen) 03/02/2012 16:02 EDT 03/02/2012 18:46 EDT Kaylynn Rice MD MICROBIOLOGY - GENE RAL ORDERABLES Performing Organization Address [facility] de Phone Number [facility] [address] [place] [address] * (ABNORMAL) POCT URINE DIPSTICK (03/02/2012 15:41 EDT) Color DARK YELLOW [facility] Clarity, UA CLOUDY [facility] Glucose Neg Neg [facility] Bilirubin Neg Neg [facility] Ketones Neg Neg [facility] Specific [place] >=1.030 1.001 - 1.035 [facility] Blood 3+(A) Neg [facility] pH 6.0 4.6 - 8.0 [facility] Protein 2+(A) Neg [facility] Urobilinogen 0.2 0.2 - 1.0 E.U./dl [facility] Nitrite Neg Neg [facility] Leuk Esterase 2+(A) Neg KAROLINA [facility] soil science professor ID [id number] [facility] Comment:Test performed at [facility] Urine specimen (specimen) 03/02/2012 15:41 EDT 03/02/2012 15:42 EDT Kaylynn Rice MD POINT OF CARE TEST ORDERABLES Performing Organization Address [facility] de Phone Number [facility] [address] [place] [address] * PHARYNGITIS CULTURE (03/02/2012 15:38 EDT) Specimen Description Throat [facility] Result No group A beta streptococci isolated. Usual karen-pharyngeal marquita. [facility] Report Status 03/05/2012 Final [facility] Specimen from throat (specimen) 03/02/2012 15:38 EDT 03/02/2012 18:45 EDT Kaylynn Rice MD MICROBIOLOGY - GENE RAL ORDERABLES [facility] [address] [place] [address] * POCT RAPID STREP SCREEN (03/02/2012 15:34 EDT) Rapid Strep Test, POC Negative Negative POINT OF CARE Background Clear? Yes POINT OF CARE Control Line Present Yes POINT OF CARE Rgt A + Rgt B= Yellow: Yes POINT OF CARE Culture Sent to Lab? Yes POINT OF CARE Specimen of unknown material (specimen) 03/02/2012 15:34 EDT Kaylynn Rice MD POINT OF CARE TEST ORDERABLES POINT OF CARE documented in this encounter Visit Diagnoses Diagnosis Urgency of urination- Primary Peptic ulcer disease Peptic ulcer, unspecified site, unspecified as acute or chronic, without mention of hemorrhage, perforation, or obstruction Pharyngitis Acute pharyngitis UTI (lower urinary tract infection) Urinary tract infection, site not specified Fatigue Other malaise and fatigue Weakness Other malaise and fatigue Myalgia Mylagia and myositis, unspecified documented in this encounter Discontinued Medications Medication Sig Discontinue Reason Start Date End Da te omeprazole (PRILOSEC) 40 mg capsuleIndications:Peptic ulcer disease Take 1 Cap by mouth daily. Reorder 07/14/2011 03/02/2012 documented as of this encounter Historical Medications * This list may reflect changes made after this encounter. Medication Sig Dispensed Refills Start Date End Date naproxen sodium (ALEVE) 220 mg Cap Take by mouth. 05/12/2012 added in this encounter Additional Health Concerns Infection Onset Date Last Indicated Resolved Time 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 Care Teams Verifying Machine Operator Relationship Specialty Start Date End Date Yair Dow MD [address] [place] [address] PCP - General 06/03/11 03/08/12 documented as of this encounter
--- OUTSIDE RECORDS SUMMARY | 2024-06-10 18:47 | XMS_ITS | Encounter Summary ---
Author Organization [facility] Address [address] [place] [address] Care Team Providers Care Postmaster Name Role Phone Yair Dow MD Primary Care Provider [phone] Reason for Visit * Reason Onset Date Comments Paperwork request 02/02/2012 Encounter Details Date Type Department Care Team (Late st Contact Info) Description 02/02/[address] [address] Yair Dow MD [address] [place] [address] [phone] Paperwork request Social History Tobacco Use Types Packs/Day Years [...] * Telephone Encounter - Stephany Franklin - 02/02/2012 0929 EDT Needs paperwork filled out and faxed back ASHANTI. Pt is faxing the form this am documented in this encounter Plan of Treatment Upcoming Encounters Date Type Department Care Team (Late st Contact Info) Description 12/29/2024 10:20 EST Office Visit [facility] Rheumatology & Immunology - [facility] [address] [place], [place] [address] Micaela Hoff MD [address] [facility], [address] [place] [phone] documented as of this encounter Visit Diagnoses Not on filedocumented in this encounter Additional Health Concerns Infection Onset Date Last Indicated Resolved Time 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 Care Teams Postmaster Relationship Specialty Start Date End Date Yair Dow MD [address] [place] [address] PCP - General 06/03/11 03/08/12 documented as of this encounter
--- OUTSIDE RECORDS SUMMARY | 2024-06-10 18:47 | XMS_ITS | Encounter Summary ---
Author Organization [facility] Address [address] [place] [address] Care Team Providers Care Cattle Farmer Name Role Phone Yair Dow MD Primary Care Provider [phone] Reason for Visit * Reason Comments Wound Infection follow up Adenopathy painful Nausea Encounter Details Date Type Department Care Team (Late st Contact Info) Description 10/24/2011 15:30 EST Office Visit [address] [address] Kaylynn Rice MD [address] [address] Nausea (Primary Dx); Abscess Social History Tobacco Use Types Packs/Day Years [...] Taken Comments Blood Pressure - - Pulse 100 10/24/2011 1537 EST Temperature 36.8 ??C (98.2 ??F) 10/24/2011 1539 EST Respiratory Rate 18 10/24/2011 1537 EST Oxygen Saturation 99% 10/24/2011 1537 EST Inhaled Oxygen Concentration - - Weight 77.6 kg (171 lb) 10/24/2011 1537 EST Height - - Body Mass Index 26.78 10/18/2011 1851 EST documented in this encounter Progress Notes * Kaylynn Rice MD - 10/24/2011 1604 EST Images from the original note were not included. Subjective: Patient ID: Teri Haro is an 31 y.o. female. Chief Complaint Patient presents with ??? Wound Infection follow up ??? Adenopathy painful HPI Here for f/u abscess on left leg. Seen initially 10/18 in ED. I&D performed. Put on Bactrim. Returned 10/20 for wound check. Packing pulled out and not replaced. Finished course of Bactrim. Thinks abscess has continued to look the same. Much less tender and sore, but wondering what next step is. Additionally, has not been feeling well. +Dizzy. Nauseated. Had to leave work the other day because of it. This happens with her occasionally. Doesn't think she's . LMP is now. Going through divorce. Patient Active Problem List Diagnoses ??? Hypothyroid ??? TAMMY (obstructive sleep apnea) ??? Mena's thyroiditis ??? Tobacco use disorder ??? Palpitations ??? Depressive disorder, not elsewhere classified ??? Unspecified hypothyroidism ??? Murmur ??? Atypical chest pain No past medical history on file. Current Outpatient Prescriptions on File Prior to Visit Medication Sig Dispense Refill ??? levothyroxine (SYNTHROID) 88 mcg tablet Take 1 Tab by mouth daily. 30 Tab 2 ??? norgestimate-ethinyl estradiol (ORTHO TRI-CYCLEN, TRI-SPRINTEC) 0.18/0.215/0.25 mg-35 mcg (28) tablet Take 1 Tab by mouth daily. 3 Each 3 ??? omeprazole (PRILOSEC) 40 mg capsule Take 1 Cap by mouth daily. 90 Cap 4 ??? Cholecalciferol, Vitamin D3, (VITAMIN D) 2,000 unit Cap Take by mouth daily. No Known Allergies Social History Substance Use Topics ??? Smoking status: Current Everyday Smoker -- 0.5 packs/day ??? Smokeless tobacco: Never Used ??? Alcohol Use: Yes rare Review of Systems Constitutional: Positive for malaise/fatigue. Negative for fever and chills. Gastrointestinal: Positive for nausea and vomiting. - See HPI Objective: Pulse 100 Temp(Src) 36.8 ??C (98.2 ??F) (Tympanic) Resp 18 Wt 77.565 kg (171 lb) SpO2 99% LMP 09/15/2011 Physical Exam Vitals reviewed. Constitutional: She appears well-nourished. She appears distressed. During evaluation suddenly said I think I'm going to throw up. Sat in chair for a few minutes with eyes closed then moved to exam table to lie down. Did not end up throwing up. HENT: Mouth/Throat: Mucous membranes are normal. Abdominal: Normal appearance and bowel sounds are normal. There is no tenderness. Lymphadenopathy: She has cervical adenopathy. Skin: Extensive tatoos. When had episode of nausea did become slightly pale UPT neg Assessment/Plan Teri was seen today for wound infection, adenopathy and nausea. Nausea- Happened just after manipulation of abscess. Also happened the other day after she took Vicodin pain medication. Additionally has recently just been on antibiotics, which certainly could contribute to some nausea. - POCT Urine Test done and neg. Reassurance given. Follow up prn for this. Abscess- at this point, has received I&D along with abx. Wound remains open, but unable to express any pus out. Recommend warm compresses TID to area No further abx at this time. Discussed that this would likely take weeks to heal, and discussed that ideally would like it to heal from inside out. Discussed warning signs to watch for- including worsening pain, erythema, more discharge, fevers/chills, etc. Pt agreed with plan, demonstrated understanding, no barriers to learning identified. Follow up prn. I spent a total of 25 minutes in face to face time with this patient and 15 minutes of that time was spent in counseling and coordination of care as described in the progress note. Kaylynn Rice MD documented in this encounter Plan of Treatment Upcoming Encounters Date Type Department Care Team (Late st Contact Info) Description 12/29/2024 10:20 EST Office Visit [facility] Rheumatology & Immunology - [address] [address] Micaela Hoff MD 111 [facility], [address] [place] [address] documented as of this encounter Procedures Procedure Name Priority Date/Time Associated Diagnosis Comments POCT TEST, VISUAL READ Routine 10/24/2011 16:37 EST Nausea documented in this encounter Results * POCT URINE TEST (10/24/2011 16:37 EST) Test, Urine, POC Negative Reference Range, Negative POINT OF CARE Control Line Present Yes POINT OF CARE Background Clear? Yes POINT OF CARE Urine specimen (specimen) 10/24/2011 16:37 EST Kaylynn Rice MD POINT OF CARE TEST ORDERABLES POINT OF CARE documented in this encounter Visit Diagnoses Diagnosis Nausea- Primary Nausea alone Abscess Cellulitis and abscess of unspecified site documented in this encounter Discontinued Medications Medication Sig Discontinue Reason Start Date End Da te cephALEXin (KEFLEX) 250 mg capsule Take 1 Cap by mouth 4 times daily for 7 days. Therapy completed 10/18/2011 10/24/2011 fluconazole (DIFLUCAN) 150 mg tablet Take 1 Tab by mouth daily. 10/13/2011 10/24/2011 hydrocodone-acetaminophen (VICODIN) 5-500 mg per tablet Take 1-2 Tabs by mouth every 4 hours. Therapy completed 10/18/2011 10/24/2011 sulfamethoxazole-trimetho prim (BACTRIM/C0-TRIMOXAZOLE DS) 800-160 mg per tablet Take 1 Tab by mouth every 12 hours. Therapy completed 10/13/2011 10/24/2011 documented as of this encounter Additional Health Concerns Infection Onset Date Last Indicated Resolved Time 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 Care Teams Cattle Farmer Relationship Specialty Start Date End Date Yair Dow MD [address] [place] [address] PCP - General 06/03/11 03/08/12 documented as of this encounter
--- OUTSIDE RECORDS SUMMARY | 2024-06-10 18:47 | XMS_ITS | Encounter Summary ---
Author Organization [facility] Address [address] [place] [address] Care Team Providers Care Chief Gauger Name Role Phone Yair Dow MD Primary Care Provider [phone] Encounter Details Date Type Department Care Team (Late st Contact Info) Description 09/15/2011 Phlebotomy Only [address] [address] Relationship Mgr, Outpatient Unspecified hypothyroidism; Abdominal pain; Peptic ulcer disease; Fatigue; Vitamin D deficiency; Hyperglycemia Social History Tobacco Use Types Packs/Day Years [...] Office Visit [facility] Rheumatology & Immunology [address] [address] Micaela Hoff MD [address] [place] [address], [address] [place] [address] documented as of this encounter Procedures Procedure Name Priority Date/Time Associated Diagnosis Comments VITAMIN D (25,[place]) Routine 09/15/2011 13: 56 EST Vitamin D deficiency Fatigue TISSUE TRANSGLUTAMINASE ANTIBODY, IGA Routine 09/15/2011 13:56 EST Abdominal pain COMPLETE BLOOD COUNT AND DIFFERENTIAL Routine 09/15/2011 13:56 EST Peptic ulcer disease Fatigue HEMOGLOBIN A1C Routine 09/15/2011 13:56 EST Hyperglycemia TSH Routine 09/15/2011 13:55 EST Unspecified hypothyroidism T4 FREE Routine 09/15/2011 13:55 EST Unspecified hypothyroidism documented in this encounter Results * HEMOGLOBIN A1C (09/15/2011 13:56 EST) Hemoglobin A1C 5.2 % [facility] Comment: Reference Range: <5.7% Normal 5.7-6.4% Increased risk for diabetes =>6.5% Diagnostic for diabetes (if confirmed) The A1c goal for non adults in general is <7%. The A1c goal for selected patients may be significantly lower than 7% if this can be achieved without significant hypoglycemia or other adverse effects of treatment. Est Avg Glucose 103 mg/dl [facility] Comment: eAG represents the A1c result expressed as average glucose in mg/dl. Blood specimen (specimen) 09/15/2011 13:56 EST 09/15/2011 15:18 EST Yair Dow MD CHEMISTRY & BLOOD GA S ORDERABLES Performing Organization Address City/State/[facility] Co de Phone Number [facility] [address] [place] [phone] * VITAMIN D (25,[place]) (09/15/2011 13:56 EST) 25OH Vitamin D Tot 35.9 ng/ml [facility] Comment: Reference Range: <10 ng/ml: Deficient 10-30 ng/ml: Insufficient 30-100 ng/ml: Sufficient >100 ng/ml: Toxic Blood specimen (specimen) 09/15/2011 13:56 EST 09/15/2011 15:18 EST Yair Dow MD CHEMISTRY & BLOOD GA S ORDERABLES [facility] [address] [place] [address] * HEMAGRAM AND DIFFERENTIAL (09/15/2011 13:56 EST) WBC 7.37 4.0 - 12.4 K/cmm [facility] RBC 4.59 3.86 - 5.04 M/cmm [facility] Hemoglobin 13.5 11.6 - 15.2 gm/dl [facility] HCT 38.2 34.9 - 44.4 % [facility] MCV 83 81 - 98 fl [facility] MCH 29.4 26.7 - 33.3 pg [facility] MCHC 35.3 32.1 - 35.9 gm/dl [facility] PLT 251 141 - 320 K/cmm [facility] RDW-CV 12.8 11.7 - 14.6 % [facility] % Neutrophils 72.0 45.5 - 79.7 % [facility] % Lymphocytes 19.3 15.0 - 46.8 % [facility] % Monocytes 7.8 1.8 - 12.0 % [facility] % Eosinophils 0.6 0.6 - 6.9 % [facility] % Basophils 0.3 0.2 - 1.4 % [facility] ABS Neutrophils 5.30 2.20 - 8.85 K/cmm [facility] ABS Lymphs 1.43 1.09 - 3.30 K/cmm [facility] ABS Monocytes 0.57 0.1 - 0.8 K/cmm [facility] ABS Eosinophils 0.05 0.03 - 0.61 K/cmm [facility] ABS Basophils 0.02 0.01 - 0.11 K/cmm [facility] Type of Diff: Automated [facility] Blood specimen (specimen) 09/15/2011 13:56 EST 09/15/2011 15:18 EST Yair Dow MD PACKAGES & DNA PROBE ORDERABLES [facility] [address] [place] [address] * TTG AB, IGA, S (09/15/2011 13:56 EST) tTG Ab, IgA, S <1.3 <4.0 U/mL [facility] Comment: (Note) <4 U/mL (Negative) Performed by: [facility], [address], [place] [address], Adjuster Arbitrator: Estephania Guallpa, Ph.D. Blood specimen (specimen) 09/15/2011 13:56 EST 09/15/2011 15:18 EST Yair Dow MD IMMUNOLOGY AND SEROL FLORY ORDERABLES Performing Organization Address [facility] Co de Phone Number [facility] [address] [place] [address] * T4 FREE (09/15/2011 13:55 EST) Free T4 1.5 0.8 - 1.8 ng/dL [facility] Blood specimen (specimen) 09/15/2011 13:55 EST 09/15/2011 15:18 EST Tawny Abrams MD CHEMISTRY & BLOOD GA S ORDERABLES Performing Organization Address [facility] Phone Number [facility] [address] [place] [address] * TSH (09/15/2011 13:55 EST) TSH 1.03 0.35 - 5.00 uIU/ml [facility] Blood specimen (specimen) 09/15/2011 13:55 EST 09/15/2011 15:18 EST Tawny Abrams MD CHEMISTRY & BLOOD GA S ORDERABLES Performing Organization Address [facility] Co de Phone Number [facility] [address] [place] [address] documented in this encounter Visit Diagnoses Diagnosis Unspecified hypothyroidism Abdominal pain Abdominal pain, unspecified site Peptic ulcer disease Peptic ulcer, unspecified site, unspecified as acute or chronic, without mention of hemorrhage, perforation, or obstruction Fatigue Other malaise and fatigue Vitamin D deficiency Unspecified vitamin D deficiency Hyperglycemia Other abnormal glucose documented in this encounter Care Teams Chief Gauger Relationship Specialty Start Date End Date Yair Dow MD [address] [place] [id number] PCP - General 06/03/11 03/08/12 documented as of this encounter
--- OUTSIDE RECORDS SUMMARY | 2024-06-10 18:47 | XMS_ITS | Encounter Summary ---
Author Organization [facility] Address [address] [place] [address] Care Team Providers Care Infrastructure Architect Name Role Phone Yair Dow MD Primary Care Provider [phone] Reason for Visit * Reason Comments New Patient Visit Fatigue pt has hypothyroid; feeling fatigued every day; Abdominal Pain has abd pain everyda y; most often in the morning; ? bowel related Medication Management pt was taking nexi um, changed jobs insurance will no longer cover; has been using OTC med; not sure the name of medication Encounter Details Date Type Department Care Team (Late st Contact Info) Description 07/14/2011 16:00 EDT Office Visit [address] [address] Yair Dow MD [address] [place] [address] [phone] Peptic ulcer disease (Primary Dx); Tobacco dependence; Abdominal pain; Vitamin D deficiency; Hyperglycemia; Fatigue Discharge Disposition: Auto Discharge Social History Tobacco [...] Sign Reading Time Taken Comments Blood Pressure 124/76 07/14/2011 1554 EDT Pulse 82 07/14/2011 1554 EDT Temperature 36.8 ??C (98.2 ??F) 07/14/2011 1554 EDT Respiratory Rate - - Oxygen Saturation - - Inhaled Oxygen Concentration - - Weight 92.4 kg (203 lb 9.6 oz) 07/14/2011 1554 E DT Height 167 cm (5' 5.75) 07/14/2011 1554 EDT Body Mass Index 33.11 07/14/2011 1554 EDT documented in this encounter Ordered Prescriptions Prescription Sig Dispensed Refills Start Date End Da te omeprazole (PRILOSEC) 40 mg capsuleIndications:Peptic ulcer disease Take 1 Cap by mouth daily. 90 Cap 4 07/14/2011 03/02/2012 buPROPion (WELLBUTRIN SR) 150 mg SR tabletIndications:Tobacco dependence Take 1 Tab by mouth 2 times daily. 60 Tab 2 07/14/2011 10/18/2011 documented in this encounter Discharge Disposition Disposition Code Departure Means Destination Auto Discharge documented in this encounter Progress Notes * Yair Dow MD - 07/14/2011 1619 EDT Chief Complaint Patient presents with ??? New Patient Visit ??? Fatigue pt has hypothyroid; feeling fatigued every day; ??? Abdominal Pain has abd pain everyday; most often in the morning; ? bowel related ??? Medication Management pt was taking nexium, changed jobs insurance will no longer cover; has been using OTC med; not surethe name of medication SUBJECTIVE: New patient to our practice today moving here from [facility]. Her main concern today is fatigue. She has been seen by endocrinology recently and is on thyroid medication. Her fatigue has increased over the past few years. Previously she was they kind of person who was always doing something but her fatigue has made it hard to function in the last few months to years. She also has some paresthesias in hands and feet. Also stomach pain. Every day. This has been going on for a few years just like her fatigue. Again this is leading to a problem with her day to day function because of its severity. She has been trying to ignore it but it is getting worse. Pain is located left lower quadrant and radiates to her back. She has some mild diarrhea and constipation off and on which is not nearly as much as a problem vee pain. Pain is 'pressure' in quality. She is 2 years in November. No new partners in over 6 years. Sex can be painful. She has a merena IUD. She does not have a history of dysmenorrhea. IUD has been in 2-3 years. She has a 3 year old daughter. She does not think IUD is directly correlated to her abdominal pain. She has not had an ultrasound but on exam her work order clerk did not think IUD was related. No nause or vomitting. No fever. She has a history of stomach ulcers which were well treated with nexium. Insurance will not cover nexium. She is taking omeprazole. Wondering if she can take this daily. If she stops this at 2 weeks pain is worse within 2 days. She has had an endoscopy, and was diagnosed with peptic ulcer disease. This was 09/03/[address] Yun. She was on 40 mg of nexium. She is having breakthroughsymptoms on20 mg of omeprazole. She did have some vitamin D deficiency but stopped her supplementation. She has recently started smoking again and would like to try wellbutrin for this. Nicotine replacement makes her extremely nauseated. She has tried chantix in that past with some success but did not like how it made her feel. 10 point review of systems negative except as above in the HPI and except - some diffuse myalgias which her ground operations crew member told her could be related to her thyroid and well as some sensitivity to light. Patient Active Problem List Diagnoses Code ??? Hypothyroid 244.9AR ??? Morbid obesity 278.01 ??? TAMMY (obstructive sleep apnea) 327.23H ??? 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 Tobacco use disorder 305.1 ??? Palpitations 785.1 ??? Depressive disorder, not elsewhere classified 311 ??? Unspecified hypothyroidism 244.9 ??? Murmur 785.2BA ??? Atypical chest pain 786.59AC Current outpatient prescriptions Medication Sig Dispense Refill ??? levothyroxine (SYNTHROID) 88 mcg tablet Take 1 Tab by mouth daily. 30 Tab 3 ??? Cholecalciferol, Vitamin D3, (VITAMIN D) 2,000 unit Cap Take by mouth daily. Not taking ? LEVONORGESTREL (MIRENA IU) by Intrauterine route. Every 5 years History Social History ??? Marital Status: Spouse Name: N/A Number of Children: N/A ??? Years of Education: N/A Occupational History ??? Not on file. Social History Main Topics ??? Smoking status: Former Smoker ??? Smokeless tobacco: Never Used ??? Alcohol Use: Yes rare ??? Drug Use: No ??? Sexually Active: Yes Control/ Protection: IUD Other Topics Concern ??? Not on file Social History Narrative ??? No narrative on file PMH - see problem list. Family History Problem Relation Age of Onset ??? High Blood Pressure Mother brain aneurysm ??? Stroke Mother ??? Heart Disease Father 50 [place] ??? Diabetes Father ??? Cancer Maternal Aunt thyroid ??? Heart Disease Maternal Grandmother [place] ??? Diabetes Maternal Grandmother ??? Cancer Maternal Aunt thyroid OBJECTIVE: BP 124/76 Pulse 82 Temp(Src) 36.8 ??C (98.2 ??F) (Tympanic) Ht 167 cm (65.75) Wt 92.352 kg(203 lb 9.6 oz) BMI 33.11 kg/m2 NAD. PERRLA, EOMI, TM's normal. No JVD. No neck mass. Thyroid normal. No lymphadenopathy. Lungs clear. Good air movement. No wheeze. Heart RRR, no murmur. Abdomen soft, NT/ND. Good peripheral pulses.No edema. Good patellar reflexes. Alert and oriented. Results for orders placed during the hospital encounter of 11/27/10 CREATININE Component Value Range ??? Creatinine 0.86 0.7-1.5 (mg/dl) ? ? GFR, Calculated >60 (ml/min/1.73m2) HEMAGRAM Component Value Range ??? WBC 8.48 4.0-12.4 (K/cmm) ??? RBC 4.78 3.86-5.04 (M/cmm) ??? Hemoglobin 14.0 11.6-15.2 (gm/dl) ??? HCT 39.5 34.9-44.4 (%) ??? MCV 83 81-98 (fl) ??? MCH 29.3 26.7-33.3 (pg) ??? MCHC 35.4 32.1-35.9 (gm/dl) ??? PLT 300 141-320 (K/cmm) ??? RDW-CV 13.1 11.7-14.6 (%) LIVER FUNCTION TESTS Component Value Range ??? Albumin 4.5 3.4-4.9 (g/dl) ??? Total Protein 7.4 6.5-8.3 (g/dl) ??? Total Alkaline Phosphatase 52 38-126 (U/L) ??? ALT 41 9-52 (U/L) ??? AST 26 15-46 (U/L) ??? Unconjugated Bilirubin 0.3 0.1-1.1 (mg/dl) ??? Conjugated Bilirubin 0.0 0.0-0.3 (mg/dl) ? ? Bilirubin, Total <0.5 0.2-1.3 (mg/dl) VITAMIN D (25,OH) Component Value Range ??? 25OH Vitamin D Tot 14.8 (ng/ml) HEMOGLOBIN A1C Component Value Range ??? Hemoglobin A1C 5.8 (%) ??? Est Avg Glucose 120 (mg/dl) ASSESSMENT: 1) peptic ulcer disease 2) tobacco dependence 3) fatigue 4) chornic abdominal/pelvic pain 5) hypthyroidism 6) paresthesias 7) vit D deficiency 8) hyperglycemia PLAN: 1) start omeprazole 40 mg daily. To consider BID if breakthroguh given history of ulcers. Work on good. 2) wellbutrin 150 mg sr daily x 3 days and then bid 3) considered with patient at length the DDX of above. These include thyroid problems (whcih she isbeing treated for), her IUD (which could cause all of above symptoms given hormones), chronic fatigue syndrome, IBS, endometriosis (seems less likely on her IUD). Anemia (has had normal CBC in last few motnhs), ovarian cyst. 4) restart vitamin D 1000 untis per day. 5) check TTG AB, recheck cbc, vit D, and a1c. 6) check pelvic ultrasound 7) f/u 1 month for sde exam and consideration of IUD removal if it seems prudent after above work-up. documented in this encounter Plan of Treatment Upcoming Encounters Date Type Department Care Team (Late st Contact Info) Description 12/29/2024 10:20 EST Office Visit [facility] Rheumatology & Immunology - [facility] [address] [place] [address] Micaela Hoff MD [address] [facility], [address] [place] [phone] documented as of this encounter Results * HEMOGLOBIN A1C (09/15/2011 13:56 EST) Pathologist [facility] Hemoglobin A1C 5.2 % [facility]ARENDR[facility] TIJER[facility] Comment: Reference Range: <5.7% Normal 5.7-6.4% Increased [...] BLOOD GA S ORDERABLES Performing Organization Address City/[facility]/ZIP Co de Phone Number [facility] [address] [address] * VITAMIN D (25,OH) (09/15/2011 13:56 EST) Pathologist [facility] 25OH Vitamin D Tot 35.9 ng/ml [facility] Comment: Reference Range: <10 ng/ml: Deficient 10-30 ng/ml: Insufficient 30-100 ng/ml: Sufficient >100 ng/ml: Toxic Blood specimen (specimen) 09/15/2011 13:56 EST 09/15/2011 15:18 EST Yair Dow MD CHEMISTRY & BLOOD GA S ORDERABLES [facility] [address] [place] [address] * HEMAGRAM AND DIFFERENTIAL (09/15/2011 13:56 EST) Pathologist [facility] WBC 7.37 4.0 - 12.4 K/cmm BURGESS [...] Dow MD PACKAGES & DNA PROBE ORDERABLES [facility] [address] [place] [address] * TTG AB, IGA, S (09/15/2011 13:56 EST) Pathologist [facility] tTG Ab, IgA, S <1.3 <4.0 U/mL [facility] Comment: (Note) <4 U/mL (Negative) Performed by: [facility], [address], [place] [address], [place] Installer: Estephania Guallpa, Ph.D. Blood specimen (specimen) 09/15/2011 13:56 EST 09/15/2011 15:18 EST Yair Dow MD IMMUNOLOGY AND FRANCIS WEEMS ORDERABLES [facility] [address] [place] [address] documented in this encounter Visit Diagnoses Diagnosis Peptic ulcer disease- Primary Peptic ulcer, unspecified site, unspecified as acute or chronic, without mention of hemorrhage, perforation, or obstruction Tobacco dependence Tobacco use disorder Abdominal pain Abdominal pain, unspecified site Vitamin D deficiency Unspecified vitamin D deficiency Hyperglycemia Other abnormal glucose Fatigue Other malaise and fatigue documented in this encounter Discontinued Medications Medication Sig Discontinue Reason Start Date End Da te esomeprazole (NEXIUM) 40 mg capsule Take 40 mg by mouth every morning before breakfast. 07/14/2011 documented as of this encounter Care Teams Infrastructure Architect Relationship Specialty Start Date End Date Yair Dow MD [address] [place] [phone] PCP - General 06/03/11 03/08/12 documented as of this encounter
--- OUTSIDE RECORDS SUMMARY | 2024-06-10 18:47 | XMS_ITS | Encounter Summary ---
Author Organization [facility] Address [address] [place] [address] Care Team Providers Care Instrument Repairer Helper Name Role Phone Ladonna Maurer Primary Care Provider [phone] Reason for Visit * Reason Onset Date Comments Results 02/11/2011 Encounter Details Date Type Department Care Team (Late st Contact Info) Description 02/11/2011 Telephone [facility] Cardiology - [facility] [address] [place], [place] [address] Jose Manuel Benjamin MD [address] [facility], [facility] [address] [place] [address] Results Social History Tobacco Use Types Packs/Day Years [...] Miscellaneous Notes * Telephone Encounter - Cecilia Roberto RN - 02/11/2011 1429 EDT Patient called and updated on results of Echocardiogram. Patient Education Topic: Echocardiogram Method: Verbal Taught to: Patient Barriers: None Outcomes: independent Signature: * Telephone Encounter - Jose Manuel Benjamin Jr., MD - 02/11/2011 1350 EDT Please let her know that her echocardiogram was completely normal, and no further evaluation is indicated. Jose Manuel Benjamin Jr. MD Marine Equipment Design Engineerbeauty therapist [facility] Pager # [phone] documented in this encounter Plan of Treatment Upcoming Encounters Date Type Department Care Team (Late st Contact Info) Description 12/29/2024 10:20 EST Office Visit [facility] Rheumatology & Immunology - [address] [address] Micaela Hoff MD [address] [place] [address], [address] [place] [phone] documented as of this encounter Visit Diagnoses Not on filedocumented in this encounter Care Teams Instrument Repairer Helper Relationship Specialty Start Date End Date Ladonna Maurer PA [address] [place] [phone] PCP - General 05/20/10 06/02/11 documented as of this encounter
--- OUTSIDE RECORDS SUMMARY | 2024-06-10 18:47 | XMS_ITS | Encounter Summary ---
Author Organization [facility] Address [address] [place] [address] Care Team Providers [employer] Travel Counselor Name Role Phone Yair Dow MD Primary Care Provider [phone] Reason for Visit * Reason Comments Abscess I have an infected abscess on my leg onset Thursday night. extensive tattoo done on left leg 10 hour in last 4 weeks. Encounter Details Date Type Department Care Team (Late st Contact Info) Description 10/18/2011 18:48 EST - 10/18/2011 21:02 EST Emergency [facility] Emergency Department - [address] [place] [address] [place] [address] Robin Randhawa MD [address] [facility], [address] [place] [id number] Emergency, MD Fede Abscess of left leg Discharge Disposition: Home or Self Care Social [...] Sign Reading Time Taken Comments Blood Pressure 138/65 10/18/2011 1851 EST Pulse 105 10/18/2011 1851 EST Temperature 36.8 ??C (98.2 ??F) 10/18/2011 1851 EST Respiratory Rate 14 10/18/20111850 EST Oxygen Saturation 99% 10/18/2011 185 EST Inhaled Oxygen Concentration - - Weight 77.1 kg (170 lb) 10/18/20111850 EST Height 170.2 cm (5' 7) 10/18/20111850 EST Body Mass Index 26.63 10/18/2011 185 EST documented in this encounter Discharge Instructions * Discharge Instructions* Robin Randhawa MD - 10/18/2011 21:08 EST Return to the ER in two days for packing removal and wound check and culture results. Continue your current antibiotic (Bactrim) and add Rx Keflex. Return to the Emergency Department (ED) if your condition worsens, does not improve as expected, orother new concerns arise. Specifically return if you have new or uncontrolled pain, high fever, difficulty breathing, vomiting and unable to keep down fluids or medications, or any other concerns. * Attachments The following attachments cannot be sent through Care Everywhere. * SKIN ABSCESS: AFTER YOUR VISIT (ESTONIAN) documented in this encounter Medications at Time of Discharge Medication Sig Dispensed Refills Start Date End Date cephALEXin (KEFLEX) 250 mg capsule Take 1 Cap by mouth 4 times daily for 7 days. 28 Cap 0 10/18/2011 10/24/2011 Cholecalciferol, Vitamin D3, (VITAMIN D) 2,000 unit Cap Take by mouth daily. 01/23/201105/12/ 012 fluconazole (DIFLUCAN) 150 mg tablet Take 1 Tab by mouth daily. 2 Tab 0 10/13/2011 10/24/2011 hydrocodone-acetaminophen (VICODIN) 5-500 mg per tablet Take 1-2 Tabs by mouth every 4 hours. 15 Tab 0 10/18/2011 10/24/2011 levothyroxine (SYNTHROID) 88 mcg tablet Take 1 Tab by mouth daily. 30 Tab 2 10/02/2011 12/20/2011 norgestimate-ethinyl estradiol (ORTHO TRI-CYCLEN, TRI-SPRINTEC) 0.18/0.215/0.25 mg-35 mcg (28) tablet Take 1 Tab by mouth daily. 3 Each 3 07/31/2011 11/18/2011 omeprazole (PRILOSEC) 40 mg capsuleIndications:Peptic ulcer disease Take 1 Cap by mouth daily. 90 Cap 4 07/14/2011 03/02/2012 sulfamethoxazole-trimetho prim (BACTRIM/C0-TRIMOXAZOLE DS) 800-160 mg per tablet Take 1 Tab by mouth every 12 hours. 20 Tab 0 10/13/2011 10/24/2011 documented as of this encounter Ordered Prescriptions Prescription Sig Dispensed Refills Start Date End Da te hydrocodone-acetaminophen (VICODIN) 5-500 mg per tablet Take 1-2 Tabs by mouth every 4 hours. 15 Tab 0 10/18/2011 10/24/2011 cephALEXin (KEFLEX) 250 mg capsule Take 1 Cap by mouth 4 times daily for 7 days. 28 Cap 0 10/18/2011 10/24/2011 documented in this encounter Discharge Disposition Disposition Code Departure Means Destination Home or Self Skilled Nursing documented in this encounter ED Notes * Rosita Fletcher - 10/18/20112100 EST Wound dressed and extra gauze given * Robin Randhawa MD - 10/18/2011 1950 ESTAssociated Order(s): INCISION AND DRAINAGE Images from the original note were not included. DOS: 10/18/2011 Chief Complaint Patient presents with ??? Abscess I have an infected abscess on my leg onset Thursday night. extensive tattoo done on left leg 10 hour in last 4 weeks. The patient is a 31 y.o. female who presents today with Abscess HPI Comments: Initial patient contact. 10/18/2011 19:50 Teri Haro is a 31 y.o. female who presents with a chief complaint of left lower leg abscess. [place] abscess on her left leg over the site of recent tattoo. She describes it as being severely painful with a lot of pressure. There is some redness around the wound but she threw a line around. Patient denies any systemic symptoms: No fever, chills, vomiting, dysuria, lightheadedness. Patient has been taking sulfa antibiotic to her PCP gave her 3 or 4 days ago. Abscess The current episode started 5 to 7 days ago. The onset was gradual. The problem occurs continuously. The problem has been gradually worsening. The problem is moderate. The symptoms are relieved by nothing. The symptoms are aggravated by activity. Associated symptoms include rash. Pertinent negatives include no fever. The history is provided by the patient. Review of Systems Constitutional: Negative for fever and chills. Respiratory: Negative for shortness of breath. Cardiovascular: Negative for chest pain. Skin: Positive for rash and wound. All other systems reviewed and are negative. History reviewed. No pertinent past medical history. History reviewed. No pertinent past surgical history. No Known Allergies History Substance Use Topics ??? Smoking status: Current Everyday Smoker -- 0.5 packs/day ??? Smokeless tobacco: Never Used ??? Alcohol Use: Yes rare Family History Problem Relation Age of Onset ??? High Blood Pressure Mother brain aneurysm ??? Stroke Mother ??? Heart Disease Father 50 [place] ??? Diabetes Father ??? Cancer Maternal Aunt thyroid ??? Heart Disease Maternal Grandmother [place] ??? Diabetes Maternal Grandmother ??? Cancer Maternal Aunt thyroid Vital Signs Temp: 36.8 ??C (98.2 ??F) Pulse: 105 Resp: 14 SpO2: 99 % BP: 138/65 mmHg BP Device: BP Machine Patient Position: Sitting BP Cuff Location: Left arm Physical Exam Nursing note and vitals reviewed. Constitutional: She is oriented to person, place, and time. She appears well- developed and well-nourished. HENT: Mouth/Throat: Oropharynx is clear and moist. Eyes: EOM are normal. Pupils are equal, round, and reactive to light. No scleral icterus. Neck: Normal range of motion. Neck supple. Cardiovascular: Normal rate, regular rhythm and normal heart sounds. Pulmonary/Chest: Effort normal and breath sounds normal. Abdominal: Soft. There is no tenderness. There is no guarding. Musculoskeletal: Normal range of motion. She exhibits no edema. Legs: Neurological: She is alert and oriented to person, place, and time. She has normal strength. Skin: Skin is warm and dry. No rash noted. Psychiatric: She has a normal mood and affect. Radiology orders: None I and D Performed by: ROBIN RANDHAWA Authorized by: ROBIN RANDHAWA Consent: Verbal consent obtained. Risks and benefits: risks, benefits and alternatives were discussed Consent given by: patient Time out: Immediately prior to procedure a time out was called to verify the correct patient, procedure, equipment, merchandise support associate and site/side marked as required. Type: abscess Body area: lower extremity Location details: left leg Anesthesia: local infiltration Local anesthetic: lidocaine 1% without epinephrine Patient sedated: no Scalpel size: 11 Incision type: single straight Complexity: simple Drainage: purulent Drainage amount: moderate Wound treatment: wound left open and drain placed Packing material: 1/4 in gauze Patient tolerance: Patient tolerated the procedure well with no immediate complications. ED Course: A medical screening exam was performed. I&D see procedure note Patient will continue the Bactrim and add Keflex pending culture results to assure coverage for staph, strept and MRSA Cultures obtained during I&D Patient also provided Vicodin starter pack and prescription to help with pain. Prior to discharge usual and customary precautions were reviewed with the patient and/or family including follow-up instructions and reasons to return to the Emergency Department if condition worsens, does not improve as expected, or other new concerns arise. Disposition: Discharged The patient's pain was managed to an adequate level weighing risk vs. benefit of further medications. Upon departure from the Emergency Department, the patient's pain was 2 on a zero to ten scale. Condition at departure from the Emergency Department: Improved Discharge Prescriptions New Prescriptions CEPHALEXIN (KEFLEX) 250 MG CAPSULE Take 1 Cap by mouth 4 times daily for 7 days. HYDROCODONE-ACETAMINOPHEN (VICODIN) 5-500 MG PER TABLET Take 1-2 Tabs by mouth every 4 hours. MDM Number of Diagnoses or Management Options Abscess of left leg: Diagnosis management comments: 3 I & D Patient Progress Patient progress: improved 1. Abscess of left leg PCP: Yair Dow MD 10/19/2011 8:47 documented in this encounter Miscellaneous Notes * Scanned Note-Null - [employer], Scan - 10/23/2011 0654 EST documented in this encounter Plan of Treatment Upcoming Encounters Date Type Department Care Team (Late st Contact Info) Description 12/29/2024 10:20 EST Office Visit [facility] [place] [address] Micaela Hoff MD [address] [facility], [address] [place] [phone] documented as of this encounter Procedures Procedure Name Priority Date/Time Associated Diagnosis Comments INCISION AND DRAINAGE Routine 10/19/2011 8:48 EST BACTERIAL CULTURE/SMEAR Routine 10/18/2011 20:42 EST documented in this encounter Results * INCISION AND DRAINAGE (10/19/2011 8:48 EST) Narrative [facility] EKG - 10/19/2011 8:48 EST Robin Randhawa MD ? 10/19/2011 ??8:48 DOS: 10/18/2011 Chief Complaint Patient presents with ? ? Abscess ??I have an infected abscess on my leg onset Thursday night. extensive tattoo done on left leg 10 hour in last 4 weeks. The patient is a 31 y.o. female who presents today with Abscess HPI Comments: Initial patient contact. 10/18/2011 19:50 Teri Haro is a 31 y.o. female who presents with a chief complaint of left lower leg abscess. ??She notes abscess on her left leg over the site of recent tattoo. She describes it as being severely painful with a lot of pressure. There is some redness around the wound but she threw a line around. Patient denies any systemic symptoms: No fever, chills, vomiting, dysuria, lightheadedness. ??Patient has been taking sulfa antibiotic to her PCP gave her 3 or 4 days ago. Abscess The current episode started 5 to 7 days ago. The onset was gradual. The problem occurs continuously. The problem has been gradually worsening. The problem is moderate. The symptoms are relieved by nothing. The symptoms are aggravated by activity. Associated symptoms include rash. Pertinent negatives include no fever. The history is provided by the patient. Review of Systems Constitutional: Negative for fever and chills. Respiratory: Negative for shortness of breath. ?? Cardiovascular: Negative for chest pain. Skin: Positive for rash and wound. All other systems reviewed and are negative. History reviewed. No pertinent past medical history. History reviewed. No pertinent past surgical history. No Known Allergies History Substance Use Topics ? ? Smoking status: Current Everyday Smoker -- 0.5 packs/day ? ? Smokeless tobacco: Never Used ? ? Alcohol Use: Yes ?? rare Family History Problem Relation Age of Onset ? ? High Blood Pressure Mother ?brain aneurysm ? ? Stroke Mother ? Heart Disease Father 50 ??[place] ? ? Diabetes Father ? Cancer Maternal Aunt ?thyroid ? ? Heart Disease Maternal Grandmother ?[place] ? ? Diabetes Maternal Grandmother ? Cancer Maternal Aunt ?thyroid Vital Signs Temp: 36.8 ??C (98.2 ??F) Pulse: 105 Resp: 14 SpO2: 99 % BP: 138/65 mmHg BP Device: BP Machine Patient Position: Sitting BP Cuff Location: Left arm Physical Exam Nursing note and vitals reviewed. Constitutional: She is oriented to person, place, and time. She appears well-developed and well-nourished. HENT: Mouth/Throat: Oropharynx is clear and moist. Eyes: EOM are normal. Pupils are equal, round, and reactive to light. No scleral icterus. Neck: Normal range of motion. Neck supple. Cardiovascular: Normal rate, regular rhythm and normal heart sounds. ?? Pulmonary/Chest: Effort normal and breath sounds normal. Abdominal: Soft. There is no tenderness. There is no guarding. Musculoskeletal: Normal range of motion. She exhibits no edema. ? Legs: Neurological: She is alert and oriented to person, place, and time. She has normal strength. Skin: Skin is warm and dry. No rash noted. Psychiatric: She has a normal mood and affect. Radiology orders: None I and D Performed by: ROBIN RANDHAWA Authorized by: ROBIN RANDHAWA Consent: Verbal consent obtained. Risks and benefits: risks, benefits and alternatives were discussed Consent given by: patient Time out: Immediately prior to procedure a time out was called to verify the correct patient, procedure, equipment, merchandise support associate and site/side marked as required. Type: abscess Body area: lower extremity Location details: left leg Anesthesia: local infiltration Local anesthetic: lidocaine 1% without epinephrine Patient sedated: no Scalpel size: 11 Incision type: single straight Complexity: simple Drainage: purulent Drainage amount: moderate Wound treatment: wound left open and drain placed Packing material: 1/4 in gauze Patient tolerance: Patient tolerated the procedure well with no immediate complications. ED Course: ?? A medical screening exam was performed. I&D see procedure note Patient will continue the Bactrim and add Keflex pending culture results to assure coverage for staph, strept and MRSA Cultures obtained during I&D Patient also provided Vicodin starter pack and prescription to help with pain. Prior to discharge usual and customary precautions were reviewed with the patient and/or family including follow-up instructions and reasons to return to the Emergency Department if condition worsens, does not improve as expected, or other new concerns arise. Disposition: Discharged The patient's pain was managed to an adequate level weighing risk vs. benefit of further medications. Upon departure from the Emergency Department, the patient's pain was 2 on a zero to ten scale. Condition at departure from the Emergency Department: Improved Discharge Prescriptions New Prescriptions CEPHALEXIN (KEFLEX) 250 MG CAPSULE ?Take 1 Cap by mouth 4 times daily for 7 days. HYDROCODONE-ACETAMINOPHEN (VICODIN) 5-500 MG PER TABLET ?Take 1-2 Tabs by mouth every 4 hours. MDM Number of Diagnoses or Management Options Abscess of left leg: Diagnosis management comments: 3 I & D Patient Progress Patient progress: improved 1. Abscess of left leg ?? PCP: ??Yair Dow MD ?? 10/19/2011 8:47 Procedure Note Robin Randhawa MD - 10/18/2011 19:50 EST Images from the original note were not included. DOS: 10/18/2011 Chief Complaint Patient presents with ? ? Abscess I have an infected abscess on my leg onset Thursday night. extensivetattoo done on left leg 10 hour in last 4 weeks. The patient is a 31 y.o. female who presents today with Abscess HPI Comments: Initial patient contact. 10/18/2011 19:50 Teri Haro is a 31 y.o. female who presents with a chief complaint ofleft lower leg abscess. She notes abscess on her left leg over the siteof recent tattoo. She describes it as being severely painful with a lot ofpressure. There is some redness around the wound but she threw a linearound. Patient denies any systemic symptoms: No fever, chills, vomiting,dysuria, lightheadedness. Patient has been taking sulfa antibiotic to herPCP gave her 3 or 4 days ago. Abscess The current episode started 5 to 7 days ago. The onset was gradual. Theproblem occurs continuously. The problem has been gradually worsening. Theproblem is moderate. The symptoms are relieved by nothing. The symptomsare aggravated by activity. Associated symptoms include rash. Pertinentnegatives include no fever. The history is provided by the patient. Review of Systems Constitutional: Negative for fever and chills. Respiratory: Negative for shortness of breath. Cardiovascular: Negative for chest pain. Skin: Positive for rash and wound. All other systems reviewed and are negative. History reviewed. No pertinent past medical history. History reviewed. No pertinent past surgical history. No Known Allergies History Substance Use Topics ? ? Smoking status: Current Everyday Smoker -- 0.5 packs/day ? ? Smokeless tobacco: Never Used ? ? Alcohol Use: Yes rare Family History Problem Relation Age of Onset ? ? High Blood Pressure Mother brain aneurysm ? ? Stroke Mother ? ? Heart Disease Father 50 [place] ? ? Diabetes Father ? ? Cancer Maternal Aunt thyroid ? ? Heart Disease Maternal Grandmother [place] ? ? Diabetes Maternal Grandmother ? ? Cancer Maternal Aunt thyroid Vital Signs Temp: 36.8 ??C (98.2 ??F) Pulse: 105 Resp: 14 SpO2: 99 % BP: 138/65 mmHg BP Device: BP Machine Patient Position: Sitting BP Cuff Location: Left arm Physical Exam Nursing note and vitals reviewed. Constitutional: She is oriented to person, place, and time. She appearswell- developed and well-nourished. HENT: Mouth/Throat: Oropharynx is clear and moist. Eyes: EOM are normal. Pupils are equal, round, and reactive to light. Noscleral icterus. Neck: Normal range of motion. Neck supple. Cardiovascular: Normal rate, regular rhythm and normal heart sounds. Pulmonary/Chest: Effort normal and breath sounds normal. Abdominal: Soft. There is no tenderness. There is no guarding. Musculoskeletal: Normal range of motion. She exhibits no edema. Legs: Neurological: She is alert and oriented to person, place, and time. Shehas normal strength. Skin: Skin is warm and dry. No rash noted. Psychiatric: She has a normal mood and affect. Radiology orders: None I and D Performed by: ROBIN RANDHAWA Authorized by: ROBIN RANDHAWA Consent: Verbal consent obtained. Risks and benefits: risks, benefits and alternatives were discussed Consent given by: patient Time out: Immediately prior to procedure a time out was called to verifythe correct patient, procedure, equipment, merchandise support associate and site/sidemarked as required. Type: abscess Body area: lower extremity Location details: left leg Anesthesia: local infiltration Local anesthetic: lidocaine 1% without epinephrine Patient sedated: no Scalpel size: 11 Incision type: single straight Complexity: simple Drainage: purulent Drainage amount: moderate Wound treatment: wound left open and drain placed Packing material: 11/05 in gauze Patient tolerance: Patient tolerated the procedure well with no immediatecomplications. ED Course: A medical screening exam was performed. I&D see procedure note Patient will continue the Bactrim and add Keflex pending culture resultsto assure coverage for staph, strept and MRSA Cultures obtained during I&D Patient also provided Vicodin starter pack and prescription to help withpain. Prior to discharge usual and customary precautions were reviewed with thepatient and/or family including follow-up instructions and reasons toreturn to the Emergency Department if condition worsens, does not improveas expected, or other new concerns arise. Disposition: Discharged The patient's pain was managed to an adequate level weighing risk vs.benefit of further medications. Upon departure from the EmergencyDepartment, the patient's pain was 2 on a zero to ten scale. Condition at departure from the Emergency Department: Improved Discharge Prescriptions New Prescriptions CEPHALEXIN (KEFLEX) 250 MG CAPSULE Take 1 Cap by mouth 4 times dailyfor 7 days. HYDROCODONE-ACETAMINOPHEN (VICODIN) 5-500 MG PER TABLET Take 1-2 Tabsby mouth every 4 hours. MDM Number of Diagnoses or Management Options Abscess of left leg: Diagnosis management comments: 3 I & D Patient Progress Patient progress: improved 1. Abscess of left leg PCP: Yair Dow MD 10/19/2011 8:47 Robin Randhawa MD PROCEDURE/MIN OR SURGICAL ORDERABLES [facility] EKG * BACTERIAL CULTURE/SMEAR, OTHER (10/18/2011 20:42 EST) Specimen Description Wound Drainage Abscess [facility] Gram Smear Result Few Polys [facility] Gram Smear Result Few Gram positive cocci [facility] Result Mod METHICILLIN RESISTANT STAPHYLOCOCCUS COAGULASE POSITIVE [facility] Report Status 10/20/2011 Final [facility] ORGANISM METHICILLIN RESISTANT STAPHYLOCOCCUS COAGULASE POSITIVE [facility] Fluid specimen from wound (specimen) 10/18/2011 20:42 EST 10/18/2011 21:04 EST Narrative Organism Antibiotic Method Susceptibility Methicillin resistant staphylococcus coagulase positive Oxacillin SUSCEPTIBILITY (YAMILETH) >=4: Resistant Methicillin resistant staphylococcus coagulase positive Cefazolin SUSCEPTIBILITY (YAMILETH) Resistant Methicillin resistant staphylococcus coagulase positive Vancomycin SUSCEPTIBILITY (YAMILETH) <=0.5: Susceptible Methicillin resistant staphylococcus coagulase positive Erythromycin SUSCEPTIBILITY (YAMILETH) <=0.25: Susceptible Methicillin resistant staphylococcus coagulase positive Clindamycin SUSCEPTIBILITY (YAMILETH) <=0.25: Susceptible Methicillin resistant staphylococcus coagulase positive Ciprofloxacin SUSCEPTIBILITY (YAMILETH) <=0.5: Susceptible Methicillin resistant staphylococcus coagulase positive Tetracycline SUSCEPTIBILITY (YAMILETH) <=1: Susceptible Methicillin resistant staphylococcus coagulase positive Trimethoprim-Sulfamet hoxazole SUSCEPTIBILITY (YAMILEHT) <=10: Susceptible Methicillin resistant staphylococcus coagulase positive Susceptibility comment SUSCEPTIBILITY (YAMILETH) SEE NOTES Comment: Resistant to all penicillins (including nafcillin), combinations of penicillins and beta lactamase inhibitors (eg amoxicillin clavulanic acid, ampicillin sulbactam, piperacillin tazobactam), all cephalosporins, and all carbapenems (eg meropenem and imipenem). (mecA gene product present) Comment:Mod METHICILLIN RESI STANT STAPHYLOCOCCUS COAGULASE POSITIVE Robin Randhawa MD MICROBIOLOGY - GENERAL ORDERABLES [facility] [address] [place] [address] documented in this encounter Visit Diagnoses Diagnosis Abscess of left leg Cellulitis and abscess of leg, except foot documented in this encounter Administered Medications Inactive Administered Medications - up to 3 most recent administrations Medication Order MAR Action Action Date Dose Rate Site Cephalexin 500 mg Cap STARTER PACK 1 Package, oral, NOW X1, 1 dose, On 10/18/11 at 2115, STAT Given 10/18/2011 21:01 EST 1 Package Hydrocodone w APAP 5-500 mg Tab??STARTER PACK 1 Package, oral, Once (Without Time Specified), 1 dose, Starting on 10/18/11 at 2032, Until 10/18/11 at 2100, STAT Given 10/18/2011 21:01 EST 1 Package lorazepam (ATIVAN) tablet 1 mg 1 mg, sublingual, NOW X1, 1 dose, On 10/18/11 at 2014, STAT Given 10/18/2011 20:09 EST 1 mg documented in this encounter Discontinued Medications Medication Sig Discontinue Reason Start Date End Da te buPROPion (WELLBUTRIN SR) 150 mg SR tabletIndications:Tobacco dependence Take 1 Tab by mouth 2 times daily. 07/14/2011 10/18/2011 documented as of this encounter Active and Recently Administered Medications Times are shown in EST. Scheduled Medication Order 10/16/2011 10/17/2011 10/18/2011 Cephalexin 500 mg Cap STARTER PACK (COMPLETED) 1 Package, oral, NOW X1, 1 dose, On 10/18/11 at 5, STAT 2100 (Given - Provid er: [facility]) Hydrocodone w APAP 5-500 mg Tab??STARTER PACK (COMPLETED) 1 Package, oral, Once (Without Time Specified), 1 dose, Starting on 10/18/11 at 2032, Until 10/18/11 at 2100, STAT 2100 (Given - Provid er: [facility] [place]) lorazepam (ATIVAN) tablet 1 mg (COMPLETED) 1 mg, sublingual, NOW X1, 1 dose, On 10/18/11 at 2015, STAT 2008 (Given - Provid er: [facility]) documented in this encounter Care Teams [employer] Travel Counselor Relationship Specialty Start Date End Date Yair Dwo MD [address] [place] [address] PCP - General 06/03/11 03/08/12 documented as of this encounter
--- OUTSIDE RECORDS SUMMARY | 2024-06-10 18:47 | XMS_ITS | Encounter Summary ---
Author Organization [facility] Address [address] [place] [address] Care Team Providers Care Primary Care Md Name Role Phone Yair Dow MD Primary Care Provider [phone] Reason for Visit * Reason Onset Date Comments Results 01/26/2012 Encounter Details Date Type Department Care Team (Late st Contact Info) Description 01/26/[address] [address] Yair Dow MD [address] [place] [address] [facility] [address] [place] [address] Results Social History Tobacco Use Types Packs/Day [...] encounter Miscellaneous Notes * Telephone Encounter - Aleksandra Vera - 01/26/2012 1534 EDT Spoke with patient and since tests were all normal wanted to know if upper endoscopy was still the plan. I stated per her note that that is what was said and that if she had any further questions will be back in the office next week. No barriers identified. Verbalized understanding. * Telephone Encounter - Mony Casillas - 01/26/2012 1501 EDT Pt was called Thursday by with results, pt being sent for a study and has some further questions, please call documented in this encounter Plan of Treatment Upcoming Encounters Date Type Department Care Team (Late st Contact Info) Description 12/29/2024 10:[address] [facility] Rheumatology & Immunology - [address] [address] Micaela Hoff MD 111 [facility], [address] [place] [address] documented as of this encounter Visit Diagnoses Not on filedocumented in this encounter Additional Health Concerns Infection Onset Date Last Indicated Resolved Time 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 Care Teams Primary Care Md Relationship Specialty Start Date End Date Yair Dow MD [address] [place] [address] [place] [phone] PCP - General 06/03/11 03/08/12 documented as of this encounter
--- OUTSIDE RECORDS SUMMARY | 2024-06-10 18:47 | XMS_ITS | Encounter Summary ---
Author Organization [facility] Address [address] [place] [address] Care Team Providers Care Litharge Mill Operator Name Role Phone Yair Dow MD Primary Care Provider [phone] Reason for Visit * Reason Onset Date Comments Medications Refill 10/02/2011 Encounter Details Date Type Department Care Team (Late Contact Info) Description 10/02/2011 Refill [facility] Endocrinology - [address] [phone] Izabel Crawford RN CDE Medications Refill Social History Tobacco Use Types [...] encounter Miscellaneous Notes * Telephone Encounter - Izabel Crawford RN - 10/02/2011 1643 EST Pt notified that i called in levothyroxine to get her to next appt documented in this encounter Plan of Treatment Upcoming Encounters Date Type Department Care Team (Late Contact Info) Description 12/29/2024 10:20 EST Office Visit [facility] Rheumatology & Immunology - [facility] [address] [place], [place] [phone] Micaela Hoff MD 111 [facility], [address] [place] [phone] documented as of this encounter Visit Diagnoses Not on filedocumented in this encounter Care Teams Litharge Mill Operator Relationship Specialty Start Date End Date Yair Dow MD [address] [place] [address] [place] [phone] PCP - General 06/03/11 03/08/12 documented as of this encounter
--- OUTSIDE RECORDS SUMMARY | 2024-06-10 18:47 | XMS_ITS | Encounter Summary ---
Author Organization [facility] Address [address] [place] [address] Care Team Providers Care Driver Wheelchair Name Role Phone Yair Dow MD Primary Care Provider [phone] Encounter Details Date Type Department Care Team (Late st Contact Info) Description 12/03/2011 Results Only [facility] Family [address] [phone] Kaylynn Rice MD [address] [address] Social History Tobacco Use Types Packs/Day [...] Info) Description 12/29/2024 10:20 EST Office Visit [facility] Rheumatology & Immunology - [facility] [address] [place] [address] Micaela Hoff MD 111 [facility] 5 [place] [address] documented as of this encounter Procedures Procedure Name Priority Date/Time Associated Diagnosis Comments PAP TEST- RESULT ONLY Routine 12/03/2011 0:00 EST documented in this encounter Results * PAP TEST- RESULT ONLY (12/03/2011 0:00 EST) Pathology Report: CYTOPATHOLOGY REPORT Reports generated via electronic interface contain original data; however they are lacking the format of the original report. Caution should be taken when reading/interpreti ng unformatted reports. Name: ? TERI CROWE ? Accession #: ? [id number] ? : ? 1980 (Age: 31) ??F ?Collect Date: ? 12/03/2011 ? Location: ? [facility] ? Receive Date: ? 12/04/2011 ? Provider: KAYLYNN RICE MD Copy to: ? Final Report SPECIMEN ADEQUACY ? Satisfactory for Evaluation - transformation zone component present GENERAL CATEGORIZATION ? Negative for Intraepithelial Lesion or Malignancy INTERPRETATION ? Shift in marquita present suggestive of bacterial vaginosis. Last Menstural Period: Nov. Specimen/Source: ??Pap Test, Source Not Provided, ThinPrep Imaging System with manual evaluation Document reviewed and electronically signed by: ? GARY Chavez(ASCP) ? Report ??Date: 12/08/2011 13:14 HPV with Pap Test ? Date Ordered: ? 12/08/2011 ? Status: ?? Signed Out ?Date Complete: ? 12/11/2011 ? By: ??System Interface ? Date Reported: ? 12/11/2011 ? Interpretation RESULT: Positive for one or more of HPV types 16,18,31,33,35,39, 45, 51,52,56,58,59, or 68. These high/intermediate risk HPV types are associated with some squamous intraepithelial lesions and cervical cancers. Comments Document reviewed and electronically signed by: ? System Interface ? Report date: 12/11/2011 By the signature above, the attending physician certifies that he/she has personally conducted a gross and/or microscopic examination of the described specimens and rendered or confirmed the above diagnosis. End of Report [facility] 12/03/2011 12/04/2011 Kaylynn Rice MD PATHOLOGY ORDERABLE S Performing Organization Address City/State/[facility] Co de Phone Number [facility] [address] [place] [address] documented in this encounter Visit Diagnoses Not on filedocumented in this encounter Additional Health Concerns Infection Onset Date Last Indicated Resolved Time 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 Care Teams Driver Wheelchair Relationship Specialty Start Date End Date Yair Dow MD [address] [place] [address] [place] [phone] PCP - General 06/03/11 03/08/12 documented as of this encounter
--- OUTSIDE RECORDS SUMMARY | 2024-06-10 18:47 | XMS_ITS | Encounter Summary ---
Author Organization [facility] Address [address] [place] [address] Care Team Providers Care Adjunct History Instructor Name Role Phone Yair Dow MD Primary Care Provider [phone] Reason for Visit * Reason Comments Hypothyroidism Follow-up Encounter Details Date Type Department Care Team (Latest Contact Info) Description 06/12/2011 16:00 EDT Office Visit [facility] Endocrinology - [address] [phone] Tawny Abrams MD [address] [place] [phone] Unspecified hypothyroidism (Primary Dx) Social History Tobacco Use Types [...] Sign Reading Time Taken Comments Blood Pressure 121/76 06/12/2011 1601 EDT large left Pulse 76 06/12/2011 1601 EDT Temperature - - Respiratory Rate - - Oxygen Saturation - - Inhaled Oxygen Concentration - - Weight 93.4 kg (206 lb) 06/12/2011 1601 EDT Height 169.3 cm (5' 6.65) 06/12/2011 1601 EDT Body Mass Index 32.6 06/12/2011 1601 EDT documented in this encounter Patient Instructions * Patient Instructions* Tawny Abrams - 06/12/2011 16:33 EDT Stop thyroid for several days and resume at lower dose 88 mcg After 2 months re check TSH level to be sure dose is correct Should start to feel better within 2 weeks documented in this encounter Ordered Prescriptions Prescription Sig Dispensed Refills Start Date End Da te levothyroxine (SYNTHROID) 88 mcg tablet Take 1 Tab by mouth daily. 30 Tab 3 06/12/2011 10/02/2011 documented in this encounter Progress Notes * Tawny Abrams - 06/12/2011 1625 EDT Fatigue is worse maybe depression very irritable down hard to get out of bed no fun enjoy nothing since end january Smoking again moved to [place] Ma[place] [address] [phone] Dear Ms Maurer: I had the pleasure of seeing your patient, Teri Haro, in follow up in the endocrine clinic todayfor goiter and hypothyroidism. 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 Her dose was increased to 100 mcg per day when I saw her but she has been taking 125 mcg. Recent TSH suppressed at <0.02. She complains of immense fatigue and lack of energy, and depressed mood. Reproductive History: She is 2, para 1, 1 stillborn, not currently , or . Social History: She is , both a student and employee as described above. Nonsmoker. Problem List: Hypothyroidism, obesity, obstructive sleep apnea, Mena's thyroiditis and goiter. Allergies: None. Medications: Levothyroxine 125 mcg per day. Vitamin D 2000 units. Nexium 40 mg. Nasonex 50 mcg spray. Mirena IUD. Family History: Significant for several first and second-degree female relatives with hypothyroidism. ROS: She complains of fatigue, labile mood, heat intolerance, change in bowel habits, recent weightloss, anxiety and shakiness. She has amenorrhea due to the IUD placement over 2 years ago.Significant for palpitations, intermittent rapid heartbeat, no chest pain or syncope, no shortness of breath.ROS otherwise negative on ten points. Objective: She is 206 pounds, 66-1/2 inches, BP 112/78, pulse 68. A pleasant, young woman not accompanied. Gait and stance are normal. She seems cheerful, good eye contact, appropriate, alert and oriented x3 and well groomed. Skin: She has multiple tattoos on her forearms and anterior chest, some facial acne and oily skin, no alopecia. No hirsutism, no cushingoid features. She has no hand tremor.No lid lag or stare. Neck appears somewhat full, but I believe this is her body habitus as on palpation her gland was firm with a thickened isthmus but not enlarged or nodular. Deep tendon reflexes were not overly brisk or delayed. She had no abnormalities on musculoskeletal exam. Gait and stance were normal. Heart is regular rate and rhythm. No skipped beats or murmurs. Lungs: Clear. Breast, pelvic and rectal exam: Deferred. Impression: 1. Hypothyroidism - Labs indicate she is on too much thyroid hormone. I prescribed 100 mcg but she has been taking 125 and TSH is now suppressed. Recommend she decrease to 88 mcg per day and repeat labs in 2 months. 2. Weight loss may be related to thyroid hormone excess. 3. Mood changes - may or may not be related to iatrogenic hyperthyroidism. Should note effects of lower dose in 2 to 4 weeks. I spent a total of 20 minutes in face to face time with this patient and 15 minutes of that time was spent in counseling and coordination of care as described in the progress note. documented in this encounter Plan of Treatment Upcoming Encounters Date Type Department Care Team (Late st Contact Info) Description 12/29/2024 10:20 EST Office Visit [facility] Rheumatology & Immunology - [address] [address] Micaela Hoff MD [address] [place] [address], [address] [place] [address] documented as of this encounter Results * T4 FREE (09/15/2011 13:55 EST) Free T4 1.5 0.8 - 1.8 ng/dL [facility] Blood specimen (specimen) 09/15/2011 13:55 EST 09/15/2011 15:18 EST Tawny Abrams MD CHEMISTRY & BLOOD GA S ORDERABLES Performing Organization Address [facility] Phone Number [facility] [address] [address] * TSH (09/15/2011 13:55 EST) TSH 1.03 0.35 - 5.00 uIU/ml [facility] Blood specimen (specimen) 09/15/2011 13:55 EST 09/15/2011 15:18 EST Tawny Abrams MD CHEMISTRY & BLOOD GA S ORDERABLES Performing Organization Address [facility] Phone Number [facility] [address] [address] documented in this encounter Visit Diagnoses Diagnosis Unspecified hypothyroidism- Primary documented in this encounter Discontinued Medications Medication Sig Discontinue Reason Start Date End Da te levothyroxine (SYNTHROID) 25 mcg tablet Take 100 mcg by mouth daily. 06/12/2011 documented as of this encounter Care Teams Adjunct History Instructor Relationship Specialty Start Date End Date Yair Dow MD [address] [place] [address] [place] [phone] PCP - General 06/03/11 03/08/12 documented as of this encounter
--- OUTSIDE RECORDS SUMMARY | 2024-06-10 18:47 | XMS_ITS | Encounter Summary ---
Author Organization [facility] Address [address] [place] [address] Care Team Providers Care Test Man Name Role Phone Yair Dow MD Primary Care Provider [phone] Encounter Details Date Type Department Care Team (Late st Contact Info) Description 11/18/2011 Phlebotomy Only [address] [phone] Occupational Therapist Home Based, Outpatient Unspecified hypothyroidism; Chronic lymphocytic thyroiditis Social History Tobacco Use Types Packs/Day [...] Progress Notes * Drew Grijalva MD - 11/18/2011 1456 ESTQuick Note: Thyroiditis confirmed Probably euthyroid documented in this encounter Plan of Treatment Upcoming Encounters Date Type Department Care Team (Late st Contact Info) Description 12/29/2024 10:20 EST Office Visit [facility] Rheumatology & Immunology - [address] [address] Micaela Hoff MD 111 [facility] 5 [place] [phone] (work) documented as of this encounter Procedures Procedure Name Priority Date/Time Associated Diagnosis Comments THYROPEROXIDASE ANTIBODY Routine 11/18/2011 9:42 EST Unspecified hypothyroidism Chronic lymphocytic thyroiditis ANTI THYROGLOBULIN Routine 11/18/2011 9: 42 EST Unspecified hypothyroidism Chronic lymphocytic thyroiditis TSH Routine 11/18/2011 9:42 EST Unspecified hypothyroidism Chronic lymphocytic thyroiditis T4 FREE Routine 11/18/2011 9:42 EST Unspecified hypothyroidism Chronic lymphocytic thyroiditis documented in this encounter Results * T4 FREE (11/18/2011 9:42 EST) Pathologist [facility] Free T4 1.8 0.8 - 1.8 ng/dL [facility] Blood specimen (specimen) 11/18/2011 9:42 EST 11/18/2011 11:54 EST Drew Grijalva MD CHEMISTRY & BLOOD GAS ORDERABLES Performing Organization Address [facility] Co de Phone Number [facility] [address] [place] [address] * (ABNORMAL) TSH (11/18/2011 9:42 EST) Pathologist [facility] TSH 0.16(L) 0.35 - 5.00 uIU/ml [facility] Blood specimen (specimen) 11/18/2011 9:42 EST 11/18/2011 11:54 EST Drew Grijalva MD CHEMISTRY & BLOOD GAS ORDERABLES Performing Organization Address [facility] Co de Phone Number [facility] [address] [place] [address] * (ABNORMAL) THYROPEROXIDASE ANTIBODY (11/18/2011 9:42 EST) Thyroperoxidase Ab 296(H) <61 U/mL [facility] Blood specimen (specimen) 11/18/2011 9:42 EST 11/18/2011 11:54 EST Drew Grijalva MD CHEMISTRY & BLOOD GAS ORDERABLES Performing Organization Address [facility] Phone Number [facility] [address] [address] * ANTI THYROGLOBULIN (11/18/2011 9:42 EST) Thyroglobulin Ab 46 <61 U/mL [facility] Blood specimen (specimen) 11/18/2011 9:42 EST 11/18/2011 11:54 EST Drew Grijalva MD CHEMISTRY & BLOOD GAS ORDERABLES Performing Organization Address [facility] de Phone Number [facility] [address] [address] documented in this encounter Visit Diagnoses Diagnosis Unspecified hypothyroidism Chronic lymphocytic thyroiditis documented in this encounter Additional Health Concerns Infection Onset Date Last Indicated Resolved Time 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 Care Teams Test Man Relationship Specialty Start Date End Date Yair Dow MD [address] [place] [address] PCP - General 06/03/11 03/08/12 documented as of this encounter
--- OUTSIDE RECORDS SUMMARY | 2024-06-10 18:47 | XMS_ITS | Encounter Summary ---
Author Organization [facility] Address [address] [place] [address] Care Team Providers Care Toe Lining Closer Name Role Phone Yair Dow MD Primary Care Provider [phone] Encounter Details Date Type Department Care Team (Late st Contact Info) Description 09/15/2011 13:48 EST - 09/15/2011 23:59 [facility] Hospital Encounter [address] [address] Unknown, Provider, Yair Dow MD [address] [place] [address] DR [facility] [address] [place] [phone] Discharge Disposition: Auto Discharge Social History Tobacco [...] Sig Dispensed Refills Start Date End Date buPROPion (WELLBUTRIN SR) 150 mg SR tabletIndications:Toba account resolution specialist dependence Take 1 Tab by mouth 2 times daily. 60 Tab 2 07/14/2011 10/18/2011 Cholecalciferol, Vitamin D3, (VITAMIN D) 2,000 unit Cap Take by mouth daily. 01/23/2011 LEVONORGESTREL (MIRENA IU) by Intrauterine route. Every 5 years 10/13/2011 levothyroxine (SYNTHROID) 88 mcg tablet Take 1 Tab by mouth daily. 30 Tab 3 06/12/2011 10/02/2011 norgestimate-ethinyl estradiol (ORTHO TRI-CYCLEN, TRI-SPRINTEC) 0.18/0.215/0.25 mg-35 mcg (28) tablet Take 1 Tab by mouth daily. 3 Each 3 07/31/2011 11/18/2011 omeprazole (PRILOSEC) 40 mg capsuleIndications:Pep tic ulcer disease Take 1 Cap by mouth daily. 90 Cap 4 07/14/2011 03/02/2012 documented as of this encounter Discharge Disposition Disposition Code Departure Means Destination Auto Discharge Home documented in this encounter Plan of Treatment Upcoming Encounters Date Type Department Care Team (Late st Contact Info) Description 12/29/2024 10:[address] [facility] Rheumatology & Immunology - [address] [phone] Micaela Hoff MD [address] [facility], [address] [place] [phone] documented as of this encounter Visit Diagnoses Not on filedocumented in this encounter Care Teams Toe Lining Closer Relationship Specialty Start Date End Date Yair Dow MD [address] [place] [phone] PCP - General 06/03/11 03/08/12 documented as of this encounter
--- OUTSIDE RECORDS SUMMARY | 2024-06-10 18:47 | XMS_ITS | Encounter Summary ---
Author Organization [facility] Address [address] [place] [address] Care Team Providers Care Broommaker Name Role Phone Yair Dow MD Primary Care Provider [phone] Reason for Visit * Reason Comments Vaginal Discharge has noticed the last few days increase vaginal discharge; Smoking Cessation was on wellbutrin wo uld like to try this again Encounter Details Date Type Department Care Team (Late st Contact Info) Description 12/03/2011 14:00 [place] [address] Kaylynn Rice MD [address] [address] Screening for STD (sexually transmitted disease); Cervical cancer screening; Contraceptive management; Tobacco dependence; Bacterial vaginosis; Yeast vaginitis Discharge Disposition: Auto Discharge Social History Tobacco [...] Sign Reading Time Taken Comments Blood Pressure 114/68 12/03/2011 1352 EST Pulse 60 12/03/2011 1352 EST Temperature 36.9 ??C (98.4 ??F) 12/03/2011 1352 EST Respiratory Rate - - Oxygen Saturation - - Inhaled Oxygen Concentration - - Weight 73.5 kg (162 lb) 12/03/2011 1352 EST Height - - Body Mass Index 25.65 11/18/2011 0829 EST documented in this encounter Ordered Prescriptions Prescription Sig Dispensed Refills Start Date End Da te fluconazole (DIFLUCAN) 150 mg tabletIndications:Yeast vaginitis Take 1 tab PO x1, repeat in 1 week prn 2 Tab 0 12/03/2011 01/14/2012 metronidazole (FLAGYL) 500 mg tabletIndications:Bacteria l vaginosis Take 1 Tab by mouth 2 times daily for 7 days. 14 Tab 0 12/03/2011 12/10/2011 buPROPion (WELLBUTRIN SR) 150 mg SR tabletIndications:Tobacco dependence Take 1 Tab by mouth 2 times daily. 60 Tab 2 12/03/2011 01/14/2012 documented in this encounter Discharge Disposition Disposition Code Departure Means Destination Auto Discharge documented in this encounter Progress Notes * Aleksandra Vera - 12/03/2011 1507 EST Patient given Depoprovera injection into left upper outer quadrant per DR. Rice order today with no issues. Dr. Rice was present in the office if needed. Patient Education Topic: depoprovera injection Method: Verbal Taught to: Patient Barriers: None Outcomes: independent Signature:Aleksandra Vera RN * Susan Florence - 12/03/2011 1500 EST Performed right arm venipuncture per Dr. Rice. Patient tolerated well. I was supervised by Dr. Rice who was present and immediately available in the office suite. Susan Florence 12/03/2011 15:01 * Kaylynn Rice MD - 12/03/2011 1412 EST Family Medicine Office Progress Note Chief Complaint Patient presents with ??? Vaginal Discharge has noticed the last few days increase vaginal discharge; ??? Smoking Cessation was on wellbutrin would like to try this again Subjective: Teri Haro is a 31 y.o. year old female here for above. 1. Increased vaginal discharge over the past few weeks. Described as white and copious. No vaginal itching/burning. No odor. No pain. No sores/lesions Increased sexual partners recently- not always using protection. When using protection, uses condoms. Stopped control 3 weeks ago, was on OCP. Previously used Mirena. Interested in another formof control but is a smoker, so worried about hormonal treatment. LMP in Nov. Abnormal pap 2002- yearly since then. Last pap Oct 2010- absent transformation zone, but neg. Would like to be checked for all STIs. 2. Smoker- Smokes about 1 ppd. Quit before using Wellbutrin. No side effects or problems with wellbutrin. Tolerated it well. When she stopped the medication, she started smoking again. Wants to quit again. Denies any h/o seizures. Objective: BP 114/68 Pulse 60 Temp(Src) 36.9 ??C (98.4 ??F) (Tympanic) Wt 73.483 kg (162 lb) Gen: No distress. Pleasant and conversant. : Normal external genitalia. +White-greyish, thin discharge. No odor appreciated. +Posterior cervix, which was well visualized. Cervix was slightly red and bled easily with pap. Psych: Alert and oriented. Full affect. Assessment/Plan: Teri was seen today for vaginal discharge and smoking cessation. Also requested STI testing and pap. Exam consistent with BV. Screening for std (sexually transmitted disease) - Chlamydia/GC Amplified - HIV 1/2 Antibody - Syphilis Serology Cervical cancer screening - Pap Test obtained-- will f/u results. Contraceptive management- discussed options. Patient has previously been on depo and tolerated well. Decided to restart. UPT neg. - POCT Urine Test- NEG - medroxyPROGESTERone (DEPO-PROVERA) injection 150 mg; Inject 1 mL into the muscle Now. Repeat in 3months. Advised condom use. Tobacco dependence- did well with wellbutrin previously, will restart. - buPROPion (WELLBUTRIN SR) 150 mg SR tablet; Take 1 Tab by mouth 2 times daily. Bacterial vaginosis- as above, exam consistent with BV. Discussed oral vs topical treatment. Patient requests oral treatment. - metronidazole (FLAGYL) 500 mg tablet; Take 1 Tab by mouth 2 times daily for 7 days. Yeast vaginitis- has h/o yeast with abx use. Will give diflucan to use prn. - fluconazole (DIFLUCAN) 150 mg tablet; Take 1 tab PO x1, repeat in 1 week prn I spent a total of 25 minutes in face to face time with this patient and 15 minutes of that time was spent in counseling and coordination of care as described in the progress note. Kaylynn Rice MD 12/03/2011 14:12 documented in this encounter Plan of Treatment Upcoming Encounters Date Type Department Care Team (Late st Contact Info) Description 12/29/2024 10:20 EST Office Visit [facility] Rheumatology & Immunology - [address] [address] Micaela Hoff MD [address] [place] [address], [address] [place] [address] documented as of this encounter Procedures Procedure Name Priority Date/Time Associated Diagnosis Comments POCT TEST, VISUAL READ Routine 12/03/2011 15:00 EST Contraceptive management SYPHILIS SEROLOGY Routine 12/03/2011 14: 19 EST Screening for STD (sexually transmitted disease) CHLAMYDIA/N. GONORRHOEAE AMPLIFIED NUCLEIC ACID Routine 12/03/2011 14:19 EST Screening for STD (sexually transmitted disease) HIV 1/2 ANTIGEN AND ANTIBODY, 4TH GENERATION Routine 12/03/2011 14:19 EST Screening for STD (sexually transmitted disease) documented in this encounter Results * POCT URINE TEST (12/03/2011 15:00 EST) Test, Urine, POC Negative Reference Range, Negative POINT OF CARE Control Line Present Yes POINT OF CARE Background Clear? Yes POINT OF CARE Urine specimen (specimen) 12/03/2011 15:00 EST Kaylynn Rice MD POINT OF CARE TEST ORDERABLES Performing Organization Address [facility] Co de Phone Number POINT OF CARE * SYPHILIS SEROLOGY (12/03/2011 14:19 EST) Syphilis Serology Interpretation: Nonreactive [facility] Comment:Reference Range: Non reactive Blood specimen (specimen) 12/03/2011 14:19 EST 12/03/2011 19:28 EST Kaylynn Rice MD IMMUNOLOGY AND SERO LOGY ORDERABLES Performing Organization Address [facility] Co de Phone Number [facility] [address] [place] [address] * HIV 1/2 ANTIBODY (12/03/2011 14:19 EST) Pathologist [facility] HIV 1/2 Antibody Negative [facility] Comment:Reference Range: Neg ative Blood specimen (specimen) 12/03/2011 14:19 EST 12/03/2011 19:28 EST Kaylynn Rice MD IMMUNOLOGY AND SERO LOGY ORDERABLES Performing Organization Address [facility] de Phone Number [facility] [address] [place] [address] * CHLAMYDIA/GC AMPLIFIED (12/03/2011 14:19 EST) Pathologist [facility] Specimen Description Cervix [facility] Chlamydia Result No Chlamydia trachomatis DNA detected by first grade teacher mediated amplification. [facility] GC Result No Neisseria gonorrhoeae DNA detected by first grade teacher mediated amplification. [facility] Specimen of unknown material (specimen) 12/03/2011 14:19 EST 12/03/2011 19:41 EST Kaylynn Rice MD MICROBIOLOGY - GENE RAL ORDERABLES Performing Organization Address [facility] Co de Phone Number [facility] [address] [place] [address] documented in this encounter Visit Diagnoses Diagnosis Screening for STD (sexually transmitted disease) Screening examination for venereal disease Cervical cancer screening Screening for malignant neoplasm of the cervix Contraceptive management Unspecified contraceptive management Tobacco dependence Tobacco use disorder Bacterial vaginosis Vaginitis and vulvovaginitis, unspecified Yeast vaginitis Candidiasis of vulva and vagina documented in this encounter Administered Medications Inactive Administered Medications - up to 3 most recent administrations Medication Order MAR Action Action Date Dose Rate Site medroxyPROGESTERone (DEPO-PROVERA) injection 150 mg 150 mg, intramuscular, NOW X1, 1 dose, On Thu12/03/11 at 1500, Routine Given 12/03/2011 15:06 EST 150 mg Left Upper Outer Quadrant documented in this encounter Discontinued Medications Medication Sig Discontinue Reason Start Date End Da te levothyroxine (SYNTHROID) 88 mcg tablet Take 1 Tab by mouth daily. Duplicate Therapy 11/18/2011 12/03/2011 documented as of this encounter Additional Health Concerns Infection Onset Date Last Indicated Resolved Time 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 Care Teams Broommaker Relationship Specialty Start Date End Date Yair Dow MD [address] [place] [phone] PCP - General 06/03/11 03/08/12 documented as of this encounter
--- OUTSIDE RECORDS SUMMARY | 2024-06-10 18:47 | XMS_ITS | Encounter Summary ---
Author Organization [facility] Address [address] [place] [address] Care Team Providers Care Garnett Feeder Name Role Phone Yair Dow MD Primary Care Provider [phone] Reason for Visit * Reason Onset Date Comments Other 01/14/2012 Encounter Details Date Type Department Care Team (Late st Contact Info) Description 01/14/[address] [address] Yair Dow MD [address] [place] [address] [address] [facility] [address] [place] [address] Other Social History Tobacco Use Types Packs/Day Years [...] * Telephone Encounter - Aleksandra Vera - 01/14/2012 0935 EDT Spoke with patient and she is feeling much worse, can hardly function. Extremely tired, feels like she is going to pass out, needs to know what is seriously wrong with her. She states she is much worse than on Thursday. Explained to patient that with all these symptoms and the fact she is that much worse than Thursday offered for her to go to the ER to be evaluated. They would be able to do Xrays andIV's which we can not do here. Asked her if she had someone who could drive her as I did not want her behind the wheel of a car with feeling like she could pass out. She stated she had someone who could drive her and she would go tho the ER.No barriers identified. Verbalized understanding. * Telephone Encounter - Stephany Franklin - 01/14/2012 0931 EDT Something is seriously wrong with her per pt. Doesn't know what to do documented in this encounter Plan of Treatment Upcoming Encounters Date Type Department Care Team (Late st Contact Info) Description 12/29/2024 10:20 EST Office Visit [facility] Rheumatology & Immunology - [address] [address] Micaela Hoff MD [address] [place] [address], [address] [place] [address] documented as of this encounter Visit Diagnoses Not on filedocumented in this encounter Additional Health Concerns Infection Onset Date Last Indicated Resolved Time 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 Care Teams Garnett Feeder Relationship Specialty Start Date End Date Yair Dow MD [address] [place] [phone] PCP - General 06/03/11 03/08/12 documented as of this encounter
--- OUTSIDE RECORDS SUMMARY | 2024-06-10 18:47 | XMS_ITS | Encounter Summary ---
Author Organization [facility] Address [address] [place] [address] Care Team Providers Care Electrician Name Role Phone Ladonna Maurer Primary Care Provider [phone] Reason for Visit * Reason Onset Date Comments Other 05/22/2011 Encounter Details Date Type Department Care Team (Late st Contact Info) Description 05/22/2011 Telephone [facility] Family Medicine [address] [phone] Ladonna Maurer PA [address] [place] [address] Other Social History Tobacco Use Types Packs/Day [...] * Telephone Encounter - Stephany Franklin - 05/22/2011 1535 EDT Received pt's records from [facility] today Pt would like to transfer care here at [facility] Called left message on pt's home voicemail to call to schedule an appt documented in this encounter Plan of Treatment Upcoming Encounters Date Type Department Care Team (Late Contact Info) Description 12/29/2024 10:20 EST Office Visit [facility] Rheumatology & Immunology - [facility] [address] [place], [place] [address] Micaela Hoff MD [address] [facility], [address] [place] [phone] documented as of this encounter Visit Diagnoses Not on filedocumented in this encounter Care Teams Electrician Relationship Specialty Start Date End Date Ladonna Maurer PA [address] [place] [address] PCP - General 05/20/10 06/02/11 documented as of this encounter
--- OUTSIDE RECORDS SUMMARY | 2024-06-10 18:47 | XMS_ITS | Encounter Summary ---
Author Organization [facility] Address [address] [place] [address] Care Team Providers Care Sand Shoveler Name Role Phone Yair Dow MD Primary Care Provider [phone] Encounter Details Date Type Department Care Team (Late st Contact Info) Description 11/26/[address] [phone] Yair Dow MD [address] [place] [address] [phone] Social History Tobacco Use Types Packs/Day Years [...] [facility] Rheumatology & Immunology - [facility] [address] [place], [place] [phone] Micaela Hoff MD [address] [facility], [address] [place] [phone] documented as of this encounter Visit Diagnoses Not on filedocumented in this encounter Additional Health Concerns Infection Onset Date Last Indicated Resolved Time 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 Care Teams Sand Shoveler Relationship Specialty Start Date End Date Yair Dow MD [address] [place] [phone] PCP - General 06/03/11 03/08/12 documented as of this encounter
--- OUTSIDE RECORDS SUMMARY | 2024-06-10 18:47 | XMS_ITS | Encounter Summary ---
Author Organization [facility] Address [address] [place] [address] Care Team Providers Care Optometrist President/Practice Owner Name Role Phone Yair Dow MD Primary Care Provider [phone] Encounter Details Date Type Department Care Team (Late st Contact Info) Description 12/12/[address] [phone] Yair Dow MD [address] [place] [address] [phone] Social History Tobacco Use Types Packs/Day Years [...] [facility] Rheumatology & Immunology - [facility] [address] [place], [place] [phone] Micaela Hoff MD [address] [facility], [address] [place] [phone] documented as of this encounter Visit Diagnoses Not on filedocumented in this encounter Additional Health Concerns Infection Onset Date Last Indicated Resolved Time 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 Care Teams Optometrist President/Practice Owner Relationship Specialty Start Date End Date Yair Dow MD [address] [place] [phone] PCP - General 06/03/11 03/08/12 documented as of this encounter
--- OUTSIDE RECORDS SUMMARY | 2024-06-10 18:47 | XMS_ITS | Encounter Summary ---
Author Organization [facility] Address [address] [place] [address] Care Team Providers Care Spring Tester Name Role Phone Yair Dow MD Primary Care Provider [phone] Reason for Visit * Reason Comments Hypothyroidism New Patient Visit former Dr. Abrams pt Encounter Details Date Type Department Care Team (Latest Contact Info) Description 11/18/2011 8:30 EST Office Visit [facility] Endocrinology - [facility] [address] [place] [address] Drew Grijalva MD [address] [facility] [address] [place] [address] Unspecified hypothyroidism; Chronic lymphocytic thyroiditis Discharge Disposition: Auto Discharge Social History Tobacco [...] Sign Reading Time Taken Comments Blood Pressure 128/80 11/18/2011 0829 EST Pulse 84 11/18/2011 0829 EST Temperature - - Respiratory Rate - - Oxygen Saturation - - Inhaled Oxygen Concentration - - Weight 74.2 kg (163 lb 9.6 oz) 11/18/[address] Height 169.3 cm (5' 6.64) 11/18/2011 0829 EST Body Mass Index 25.9 11/18/2011 0829 EST documented in this encounter Ordered Prescriptions Prescription Sig Dispensed Refills Start Date End Da te levothyroxine (SYNTHROID) 88 mcg tablet Take 1 Tab by mouth daily. 100 Tab 4 11/18/2011 12/03/2011 documented in this encounter Discharge Disposition Disposition Code Departure Means Destination Auto Discharge documented in this encounter Progress Notes * Drew Grijalva MD - 11/18/2011 0854 EST Endocrinology Follow-Up Thyroid Evaluation 11/18/2011 Chief Complaint Patient presents with ??? Hypothyroidism ??? New Patient Visit former Dr. Abrams pt HPI: Teri Haro is a 31 y.o. female who presents for follow-up of: 1. Unspecified hypothyroidism 2. Chronic lymphocytic thyroiditis First seen in endocrine clinic 01/23/[address] Tawny Abrams , for goiter and hypothyroidism. 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 With each dose increment she had some improvement in symptoms but not sustained. She had complaints of immense fatigue and lack of energy, partially due to her hectic schedule of parenting a 3-year-old, commuting 2 hours a day from her home to classes at [employer] and carrying a 30-hour per week workload for the [employer]. She admitted to eating poorly, spending a lot of time commuting in her car and getting little exercise. Now dieting very successfully Reproductive History: She is 2, para 1, [...] - on 125 instead of 100 mcg/day Results for TERI HARO ( ) as of 11/18/2011 08:57 Ref. Range 03/06/2004 17:29 12/09/2004 16:06 12/14/2007 17:26 09/15/2011 13:55 Free T4 Latest Range: 0.8-1.8 ng/dL 1.5 TSH Latest Range: 0.35-5.00 uIU/ml 4.47 1.63 2.40 1.03 12/2010 TSH 3.57 and FT4 1.01 Teri Haro reports the following: no symptoms but SIGNIFICANT SELF INDUCED WT LOSS SINCE LAST YR ! SYMPTOM YES or NO Excess perspiration No Changes in vision No Choking sensation No Cold intolerance No Constipation No Cough No Depression No Diarrhea No Difficulty swallowing No Dry skin No Enlargement of neck No Exophthalmos/eye pain No Family plans - desirous of in near future No Fatigue No Hair loss No Heat intolerance No Hoarseness Hyperness No Increased appetite No Increased stool frequency No Irritability No Jitteriness No Menses: normal Just d/c'ed bcp Mood swings No Myalgia/muscle cramps No Palpitations No Poor handwriting No Poor sleeping No Puffy eyes No Smoking No Sterilized No Tachycardia No Tremor No Weight gain No Weigh loss 43# since 12/2010 OBJECTIVE: BP 128/80 Pulse 84 Ht 169.3 cm (66.64) Wt 74.208 kg (163 lb 9.6 oz) BMI 25.90 kg/m2 General: alert, cooperative, no distress Eyes: no lid lag, periorbital edema, stare, proptosis or exophthalamus. EOM full. Neck: supple, symmetrical, trachea midline, no thyroidectomy scar, no adenopathy and abnormal thyroid: enlarged Extremities: extremities warm, atraumatic, no cyanosis or edema positive pulses bilat Skin: smooth, warm and dry Neuro: reflexes normal with no hung-up relaxation phase no tremors LAB REVIEW: Lab Results Component Value Date TSH 1.03 09/15/2011 Lab Results Component Value Date FREET4 1.5 09/15/2011 Utilizing a [employer] System, a biplanar B-mode ultrasound was performed of the thyroid and neck structures. The right lobe of the thyroid measures 3.99X0.99X0.76 centimeters. The left lobe of the thyroid measures 3.17X1,16X0.79 centimeters. The isthmus of the gland measures 0.29 centimeters. The echotexture of the gland is HETEROGENEOUS. There are no discrete nodules in the gland . Impression: Heterogeneous thyroid gland - smaller than normal on U/S and smaller than prior study ASSESSMENT: 1. Unspecified hypothyroidism 2. Chronic lymphocytic thyroiditis Suppression/replacement is shrinking thyroid gland PLAN: Labs: TSH, thyroid autoantibodies and free thyroxine Ultrasound of thyroid Medications: Levothyroxine 88 MCG/DAY The risks and benefits of my recommendations, as well as other treatment options were discussed with the patient today. Questions were answered. Follow up: 1 year and as needed. Today's labs - Although her TSH is a little low - her calculated dose is far greater than 88 mcg/day - I would continue this dose and reassess next year or sooner if she is symptomatic Results for TERI HARO ( ) as of 11/18/2011 13:13 Ref. Range 09/15/2011 13:55 11/18/2011 09:42 Free T4 Latest Range: 0.8-1.8 ng/dL 1.5 1.8 TSH Latest Range: 0.35-5.00 uIU/ml 1.03 0.16 (L) Thyroglobulin Ab Latest Range: <61 U/mL 46 Thyroperoxidase Ab Latest Range: <61 U/mL 296 (H) Drew Grijalva MD 11/18/2011 9:19 documented in this encounter Procedure Notes * Program Advisor, Daniela - 11/18/2011 1428 ESTAssociated Order(s): RADIOLOGY - SCANNED documented in this encounter Plan of Treatment Upcoming Encounters Date Type Department Care Team (Late Contact Info) Description 12/29/2024 10:20 EST Office Visit [facility] Rheumatology & Immunology - [facility] [address] [place] [address] Micaela Hoff MD [address] [facility], [address] [place] [address] documented as of this encounter Procedures Procedure Name Priority Date/Time Associated Diagnosis Comments RADIOLOGY - SCANNED 11/18/2011 1 4:28 EST ENDOCRINE CLINIC US THYROID Routine 11/18/2011 Unspecified hypothyroidism Chronic lymphocytic thyroiditis documented in this encounter Results * RADIOLOGY - SCANNED (11/18/2011 14:28 EST) Anatomical Region Laterality Modality Other 11/18/2011 14:2 8 EST Narrative Transcriptions Program Advisor, Scan - 11/18/2011 14:28 EST Scan Program Advisor IMG OTHER IMAGING OR DERABLES * T4 FREE (11/18/2011 9:42 EST) Free T4 1.8 0.8 - 1.8 ng/dL [facility] Blood specimen (specimen) 11/18/2011 9:42 EST 11/18/2011 11:54 EST Drew Grijalva MD CHEMISTRY & BLOOD GAS ORDERABLES [facility] [address] [place] [address] * (ABNORMAL) TSH (11/18/2011 9:42 EST) TSH 0.16(L) 0.35 - 5.00 uIU/ml [facility] Blood specimen (specimen) 11/18/2011 9:42 EST 11/18/2011 11:54 EST Drew Grijalva MD CHEMISTRY & BLOOD GAS ORDERABLES Performing Organization Address [facility] de [place] [address] * (ABNORMAL) THYROPEROXIDASE ANTIBODY (11/18/2011 9:42 EST) Thyroperoxidase Ab 296(H) <61 U/mL F [facility] Blood specimen (specimen) 11/18/2011 9:42 EST 11/18/2011 11:54 EST Drew Grijalva MD CHEMISTRY & BLOOD GAS ORDERABLES Performing Organization Address [facility] [place] [address] * ANTI THYROGLOBULIN (11/18/2011 9:42 EST) Thyroglobulin Ab 46 <61 U/mL [facility] Blood specimen (specimen) 11/18/2011 9:42 EST 11/18/2011 11:54 EST Drew Grijalva MD CHEMISTRY & BLOOD GAS ORDERABLES Performing Organization Address [facility] [place] [address] * ENDOCRINE CLINIC US THYROID (11/18/2011) Anatomical Region Laterality Modality Other Impressions 11/18/2011 Utilizing a [employer] System, a biplanar B-mode ultrasound was performed of the thyroid and neck structures. ??The right lobe of the thyroid measures 3.99X0.99X0.76 centimeters. ??The left lobe of the thyroid measures 3.17X1,16X0.79 centimeters. ??The isthmus of the gland measures 0.29 centimeters. ??The echotexture of the gland is HETEROGENEOUS. ??There are no discrete nodules in the gland . ?? Impression: Heterogeneous thyroid gland - smaller than normal on U/S and smaller than prior study Interpreted by: Drew Grijalva MD 11/18/2011 9:26 Drew Grijalva MD IMG US ORDERABLES documented in this encounter Visit Diagnoses Diagnosis Unspecified hypothyroidism Chronic lymphocytic thyroiditis documented in this encounter Discontinued Medications Medication Sig Discontinue Reason Start Date End Da te norgestimate-ethinyl estradiol (ORTHO TRI-CYCLEN, TRI-SPRINTEC) 0.18/0.215/0.25 mg-35 mcg (28) tablet Take 1 Tab by mouth daily. Patient Stopped Taking 07/31/2011 11/18/2011 documented as of this encounter Historical Medications * This list may reflect changes made after this encounter. Medication Sig Dispensed Refills Start Date End Date mometasone (NASONEX) 50 mcg/Actuation nasal sprayIndications:Unspecif ied hypothyroidism,Chronic lymphocytic thyroiditis 2 Sprays by Nasal route daily. 01/19/2012 added in this encounter Additional Health Concerns Infection Onset Date Last Indicated Resolved Time 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 Care Teams Spring Tester Relationship Specialty Start Date End Date Yair Dow MD [address] [place] [phone] PCP - General 06/03/11 03/08/12 documented as of this encounter
--- OUTSIDE RECORDS SUMMARY | 2024-06-10 18:47 | XMS_ITS | Encounter Summary ---
Author Organization [facility] Address [address] [place] [address] Care Team Providers Care Civil Manager Name Role Phone Yair Dow MD Primary Care Provider [phone] Reason for Visit * Reason Comments Contraception IUD removal Encounter Details Date Type Department Care Team (Late st Contact Info) Description 07/31/2011 9:45 EDT Office Visit [facility] [address], [place] [address] Vishnu Gustafson MD [address] [place] [address] Contraception (Primary Dx) Social History Tobacco Use Types [...] Reading Time Taken Comments Blood Pressure 110/72 07/31/2011 0932 EDT Pulse 76 07/31/2011 0932 EDT Temperature 36.6 ??C (97.8 ??F) 07/31/2011 0932 EDT Respiratory Rate - - Oxygen Saturation - - Inhaled Oxygen Concentration - - Weight 88.5 kg (195 lb) 07/31/2011 0932 EDT Height - - Body Mass Index 31.71 07/14/2011 1554 EDT documented in this encounter Ordered Prescriptions Prescription Sig Dispensed Refills Start Date End Da te norgestimate-ethinyl estradiol (ORTHO TRI-CYCLEN, TRI-SPRINTEC) 0.18/0.215/0.25 mg-35 mcg (28) tablet Take 1 Tab by mouth daily. 3 Each 3 07/31/2011 11/18/2011 documented in this encounter Progress Notes * Vishnu Gustafson MD - 07/31/2011 1108 EDT Subjective: Patient ID: Teri Haro is an 31 y.o. female. Chief Complaint Patient presents with ??? Contraception IUD removal HPI Has had merina IUD for approx 3 years and feels it may be contributing to acne an irritability so would like to have removed and go back on [id number] that she had done well on before Patient Active Problem List Diagnoses Code ??? Hypothyroid 244.9AR ??? Morbid obesity 278.01 ??? TAMMY (obstructive sleep apnea) 327.23H ??? 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 Tobacco use disorder 305.1 ??? Palpitations 785.1 ??? Depressive disorder, not elsewhere classified 311 ??? Unspecified hypothyroidism 244.9 ??? Murmur 785.2BA ??? Atypical chest pain 786.59AC No past medical history on file. Current outpatient prescriptions ordered prior to encounter Medication Sig Dispense Refill ??? buPROPion (WELLBUTRIN SR) 150 mg SR tablet Take 1 Tab by mouth 2 times daily. 60 Tab 2 ??? omeprazole (PRILOSEC) 40 mg capsule Take 1 Cap by mouth daily. 90 Cap 4 ??? levothyroxine (SYNTHROID) 88 mcg tablet Take 1 Tab by mouth daily. 30 Tab 3 ??? Cholecalciferol, Vitamin D3, (VITAMIN D) 2,000 unit Cap Take by mouth daily. ??? LEVONORGESTREL (MIRENA IU) by Intrauterine route. Every 5 years No Known Allergies Social History Substance Use Topics ??? Smoking status: Current Everyday Smoker ??? Smokeless tobacco: Never Used ??? Alcohol Use: Yes rare Review of Systems Constitutional: Negative for fever and chills. Gastrointestinal: Negative for nausea, vomiting and abdominal pain. - See HPI Objective: BP 110/72 Pulse 76 Temp(Src) 36.6 ??C (97.8 ??F) (Tympanic) Wt 88.451 kg (195 lb) Physical Exam Constitutional: She is oriented to person, place, and time. She appears well- developed and well-nourished. No distress. Abdominal: Soft. Bowel sounds are normal. She exhibits no distension and no mass. No tenderness. She has no rebound and no guarding. Genitourinary: Vagina normal and uterus normal. IUD strig grasped with ring forceps and IUD esily removed, pt tolerated well Neurological: She is alert and oriented to person, place, and time. Skin: Skin is warm and dry. No rash noted. She is not diaphoretic. Psychiatric: She has a normal mood and affect. Assessment: Plan: Teri was seen today for contraception. Diagnoses and associated orders for this visit: Contraception Other Orders - norgestimate-ethinyl estradiol (ORTHO TRI-CYCLEN, TRI-SPRINTEC) 0.18/0.215/0.25 mg-35 mcg (28) tablet; Take 1 Tab by mouth daily. IUD removed per patient's request. She wants to go back on Ortho Tri-Cyclen. She has been amenorrheic for over a year. I told she start the Ortho Tri-Cyclen today. I warned her that she may get some spotting during the first month or two as her body adjusts to the new hormone cycling. Follow up forany headaches, lower extremity edema or pain or erratic persistent bleeding. documented in this encounter Plan of Treatment Upcoming Encounters Date Type Department Care Team (Late st Contact Info) Description 12/29/2024 10:20 EST Office Visit [facility] Rheumatology & Immunology - [address] [address] Micaela Hoff MD [address] [place] [address], [address] [place] [address] documented as of this encounter Visit Diagnoses Diagnosis Contraception- Primary Unspecified contraceptive management documented in this encounter Care Teams Civil Manager Relationship Specialty Start Date End Date Yair Dow MD [address] [place] [address] PCP - General 06/03/11 03/08/12 documented as of this encounter
--- OUTSIDE RECORDS SUMMARY | 2024-06-10 18:47 | XMS_ITS | Encounter Summary ---
Author Organization [facility] Address [address] [place] [address] Care Team Providers Care Financial Foundations Representative Name Role Phone Yair Dow MD Primary Care Provider [phone] Encounter Details Date Type Department Care Team (Latest Contact Info) Description 11/18/2011 9:39 EST - 11/18/2011 23:59 [facility] Hospital Encounter [address] [address] Unknown, Provider, Drew Grijalva MD [address] [place] [address] [place] [phone] Discharge Disposition: Auto Discharge Social History Tobacco [...] 01/23/2011 012 levothyroxine (SYNTHROID) 88 mcg tablet Take 1 Tab by mouth daily. 100 Tab 4 11/18/2011 12/03/2011 levothyroxine (SYNTHROID) 88 mcg tablet Take 1 Tab by mouth daily. 30 Tab 2 10/02/2011 12/20/2011 mometasone (NASONEX) 50 mcg/Actuation nasal sprayIndications:Unspecif ied hypothyroidism,Chronic lymphocytic thyroiditis 2 Sprays by Nasal route daily. 01/19/2012 omeprazole (PRILOSEC) 40 mg capsuleIndications:Peptic ulcer disease Take 1 Cap by mouth daily. 90 Cap 4 07/14/2011 03/02/2012 documented as of this encounter Discharge Disposition Disposition Code Departure Means Destination Auto Discharge Home documented in this encounter Plan of Treatment Upcoming Encounters Date Type Department Care Team (Late st Contact Info) Description 12/29/2024 10:20 EST Office Visit [facility] Rheumatology & Immunology - [address] [address] Micaela Hoff MD [address] [facility], [address] [place] [phone] documented as of this encounter Visit Diagnoses Not on filedocumented in this encounter Additional Health Concerns Infection Onset Date Last Indicated Resolved Time 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 Care Teams Financial Foundations Representative Relationship Specialty Start Date End Date Yair Dow MD [address] [place] [phone] PCP - General 06/03/11 03/08/12 documented as of this encounter
--- OUTSIDE RECORDS SUMMARY | 2024-06-10 18:47 | XMS_ITS | Encounter Summary ---
Author Organization [facility] Address [address] [place] [address] Care Team Providers Care Snow Ranger Name Role Phone Yair Dow MD Primary Care Provider [phone] Reason for Referral * Consult (Routine/Next Available) - Closed Specialty Diagnoses / Procedures Referred By Contact Referred To Contact Gastroenterology and Hepatology Diagnoses Bloating Abdominal pain Kaylynn Rice MD [address] [phone] [facility] [address] [place] [address] Referral ID Status Reason Start Date Expiration Date V isits Requested Visits Authorized [id number] Closed Specialty Services Required 02/10/2012 1 1 Question Answer Reason for Request: Increasing abd pain, bloating, constipation in past 6 months. EGD done by Dr Johnston. Comments Patient requests Dr Johnston please. Reason for Visit * Reason Comments Abdominal Pain history of ulcers / follow uo Dr Johnston endo / requesting referral to him Fatigue Encounter Details Date Type Department Care Team (Late st Contact Info) Description 02/10/2012 13:30 [place] [address] Kaylynn Rice MD [address] [phone] Abdominal pain; Bloating; Headache; Dizziness; Numbness; Fatigue Discharge Disposition: Auto Discharge Social History [...] Sign Reading Time Taken Comments Blood Pressure 112/80 02/10/2012 1327 EDT Pulse 80 02/10/2012 1327 EDT Temperature - - Respiratory Rate 18 02/10/2012 1327 EDT Oxygen Saturation 98% 02/10/2012 1327 EDT Inhaled Oxygen Concentration - - Weight 68.5 kg (151 lb) 02/10/2012 1327 EDT Height 170.2 cm (5' 7) 02/10/2012 1327 EDT Body Mass Index 23.65 02/10/2012 1327 EDT documented in this encounter Discharge Disposition Disposition Code Departure Means Destination Auto Discharge documented in this encounter Progress Notes * Kaylynn Rice MD - 02/10/2012 1407 EDT Subjective: Patient ID: Teri Haro is an 31 y.o. female. Chief Complaint Patient presents with ??? Abdominal Pain history of ulcers / follow uo Dr Preston elaine / requesting referral to him ??? Fatigue HPI Here mostly for f/u (see my last notes). Symptoms have continued to get worse. Has had to quit job due to symptoms. Increased fatigue. I feel weighted down. Whole body feels slowed down. Going up flight of stairs even is difficult. Dizzy/lightheaded spells have continued. Coming on suddenly and very intense. I'm surprised I haven't blacked out from one Can feel them coming on- everything starts to look fuzzy and then black around perimeter of vision. Episodes occur about 4 times per week. Episodes are completely random. They seem like they last forever, but it's probably not even a minute Additionally- Muscles feel weak/painful and have spasms. Feels tremors and shakiness in hands. Hands and feet numb every day- intermittent. Numbness will last 1-2 hours at a time. Doesn't seem to be one side vs another. Blurry vision- intermittent. Not blurry all the time. Headaches a lot- located everywhere. Over past few days has been on left side of head. Recently had EGD which was normal. Has continued to feel bloated and constipated. Continues to have epigastric pain- ?related to hiatal hernia. Pain in abd- pain migrates- stomach and intestinal. Not eating much. Dr Johnston recommended OV with him. Patient Active Problem List Diagnoses ??? Hypothyroid [...] rare ROS - See HPI Objective: BP 112/80 Pulse 80 Resp 18 Ht 170.2 cm (67) Wt 68.493 kg (151 lb) BMI 23.65 kg/m2 OuC475% LMP 12/17/2011 Physical Exam Vitals reviewed. Constitutional: Vital signs are normal. She appears well-developed and well- nourished. Non-toxic appearance. She does not have a sickly appearance. She does not appear ill. No distress. Appears fatigued Skin: Skin is warm and dry. There is pallor. Psychiatric: She has a normal mood and affect. Her speech is normal and behavior is normal. Judgment and thought content normal. Cognition and memory are normal. Further exam deferred Assessment/Plan Teri was seen today for abdominal pain and fatigue. Also with myriad of other symptoms as described above. Patient has had extensive w/u without significant findings. Options discussed with her today. Abdominal pain and Bloating Normal celiac labs EGD normal Will consult GI for further eval: - Ambulatory Consult Gastroenterology Headache and Dizziness and Numbness and Fatigue Extensive w/u. No clear etiology. Given constellation of symptoms, considering MS as etiology. Willget MRI of head to evaluate. - MR HEAD W/WO CONTRAST I spent a total of 25 minutes [...] 12/29/2024 10:20 EST Office Visit [facility] Rheumatology & Immunology - [address] [id number] Micaela Hoff MD [address] [place] [address], [address] [place] [address] Scheduled Referrals Name Type Priority Associated Diagnoses Order Schedule AMB CONSULT GASTROENTEROLOGY Outpatient Referral Routine Bloating Abdominal pain Ordered: 02/10/2012 documented as of this encounter Procedures Procedure Name Priority Date/Time Associated Diagnosis Comments MR HEAD W/WO CONTRAST 03/01/2012 23:04 EDT Headache Dizziness Numbness Fatigue documented in this encounter Results * MR HEAD W/WO CONTRAST (03/01/2012 23:04 EDT) Anatomical Region Laterality Modality Other 03/01/2012 23:0 4 EDT 03/02/2012 11:19 EDT Narrative 03/02/2012 11:19 EDT MR HEAD WWO/CONTRAST ??Mar 01, 2012 11:04:00 PM Signs and Symptoms/Comments: ??784.7-UUPAPQOV-VLI-9-CM 780.4-DIZZINESS AND HXVXCUJTQ-QXS-0-CM Worsening fatigue, numbness/weakness, blurry vision, dizziness. ??Rule out multiple sclerosis or mass Comparison: No comparison available. Technique: Sagittal MS VISTA, coronal MS PSIR, axial GRASE, axial T2 FLAIR, axial T1 3-D, axial T1 fat-sat post 3-D, axial T1 fat-sat post, axial DWI, coronal T1 3-D recon, sagittal T1 3-D recon, coronal T1 fat-sat post 3-D recon, sagittal T1 fat-sat post 3-D recon, 3 plane survey, and axial ADC sequences were obtained of the head. 7.5 mL of gadovist was administered without complication. Findings: There is no evidence of acute infarct on diffusion weighted sequences. There is no evidence of mass, mass effect, or midline shift. The ventricles are age-appropriate and the basal cisterns are patent. There are no areas of abnormal susceptibility. Normal vascular flow voids are identified. There is no regions of abnormal white matter signal. No enhancing masses are identified within the brain. There is no evidence of extra-axial fluid collection or intracranial hemorrhage. A developmental venous anomaly is seen in the left frontal lobe. The orbits are normal in appearance. There is no sinus disease. There is a small amount of fluid in the inferior portions of the left mastoid air cells. Impression: 1. No lesions within the brain suggestive of multiple sclerosis. 2. No evidence of intracranial mass. 3. Small developmental venous anomaly identified in the left frontal lobe. I have personally reviewed the images and the above interpretation and agree with the findings. Procedure Note Jalen Arrington MD - 03/02/2012 MR HEAD WWO/CONTRAST Mar 01, 2012 11:04:00 PM Signs and Symptoms/Comments: 784.2-BHHOGSYQ-YCJ-9-CM 780.4-DIZZINESS AND CTSFXSCHB-BHQ-2-CM Worsening fatigue, numbness/weakness, blurry vision, dizziness. Rule out multiple sclerosis or mass Comparison: No comparison available. Technique: Sagittal MS VISTA, coronal MS PSIR, axial GRASE, axial T2 FLAIR, axial T1 3-D, axial T1 fat-sat post 3-D, axial T1 fat-sat post, axial DWI, coronal T1 3-D recon, sagittal T1 3-D recon, coronal T1 fat-sat post 3-D recon, sagittal T1 fat-sat post 3-D recon, 3 plane survey, and axial ADC sequences were obtained of the head. 7.5 mL of gadovist was administered without complication. Findings: There is no evidence of acute infarct on diffusion weighted sequences. There is no evidence of mass, mass effect, or midline shift. The ventricles are age-appropriate and the basal cisterns are patent. There are no areas of abnormal susceptibility. Normal vascular flow voids are identified. There is no regions of abnormal white matter signal. No enhancing masses are identified within the brain. There is no evidence of extra-axial fluid collection or intracranial hemorrhage. A developmental venous anomaly is seen in the left frontal lobe. The orbits are normal in appearance. There is no sinus disease. There is a small amount of fluid in the inferior portions of the left mastoid air cells. Impression: 1. No lesions within the brain suggestive of multiple sclerosis. 2. No evidence of intracranial mass. 3. Small developmental venous anomaly identified in the left frontal lobe. I have personally reviewed the images and the above interpretation and agree with the findings. Kaylynn Rice MD IMG MRI ORDERABLES documented in this encounter Visit Diagnoses Diagnosis Abdominal pain Abdominal pain, unspecified site Bloating Flatulence, eructation, and gas pain Headache(784.0) Headache Dizziness Dizziness and giddiness Numbness Disturbance of skin sensation Fatigue Other malaise and fatigue documented in this encounter Discontinued Medications Medication Sig Discontinue Reason Start Date End Da te clindamycin (CLEOCIN) 2 % vaginal creamIndications:[place] terial vaginosis 5 grams intravaginally daily x5 days Therapy completed 01/14/2012 02/10/2012 documented as of this encounter Additional Health Concerns Infection Onset Date Last Indicated Resolved Time 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 Care Teams Snow Ranger Relationship Specialty Start Date End Date Yair Dow MD [address] [place] [phone] PCP - General 06/03/11 03/08/12 documented as of this encounter
--- OUTSIDE RECORDS SUMMARY | 2024-06-10 18:47 | XMS_ITS | Encounter Summary ---
Author Organization [facility] Address [address] [place] [address] Care Team Providers Care Horticulture Instructor Name Role Phone Yair Dow MD Primary Care Provider [phone] Reason for Visit * Reason Comments Fatigue felling tired; diffi culty with daily functioning; weight loss; Abdominal Pain constipation; has be en dx with hiatal hernia Vaginitis seen in Dec now has sx again Encounter Details Date Type Department Care Team (Late st Contact Info) Description 01/12/2012 16:00 EDT Office Visit [address] [address] Kaylynn Rice MD [address] [phone] Fatigue (Primary Dx); Bacterial vaginosis Discharge Disposition: Auto Discharge Social History Tobacco [...] Sign Reading Time Taken Comments Blood Pressure 120/70 01/12/2012 1559 EDT Pulse 60 01/12/2012 1559 EDT Temperature 36.9 ??C (98.5 ??F) 01/12/2012 1559 EDT Respiratory Rate - - Oxygen Saturation - - Inhaled Oxygen Concentration - - Weight 70.6 kg (155 lb 9.6 oz) 01/12/2012 1559 E DT Height - - Body Mass Index 24.63 11/18/2011 0829 EST documented in this encounter Ordered Prescriptions Prescription Sig Dispensed Refills Start Date End Da te clindamycin (CLEOCIN) 2 % vaginal creamIndications:Bacte rial vaginosis 5 grams intravaginally daily x5 days 25 g 0 01/14/2012 02/10/2012 documented in this encounter Discharge Disposition Disposition Code Departure Means Destination Auto Discharge documented in this encounter Progress Notes * Aura Mustafa - 01/12/2012 1645 EDT Performed venipuncture per Dr. Dow's order I was supervised by Dr. Dow who was present and immediately available in the office suite. Aura Mustafa 01/12/2012 16:46 * Kaylynn Rice MD - 01/12/2012 1617 EDT Subjective: Patient ID: Teri Haro is an 31 y.o. female. Chief Complaint Patient presents with ??? Fatigue felling tired; difficulty with daily functioning; weight loss; ??? Abdominal Pain constipation; has been dx with hiatal hernia ??? Vaginitis seen in Dec now has sx again HPI Presents today with multiple complaints. Complains of increased fatigue Lost 100 pounds in last year without trying. Constipation. When able to have BM, smells really bad. Has BM a few times per week. Always feels incomplete emptying of stomach/bloated. Chest pain. Located under breast and goes through to back. Feels like a lot of pressure. Comes and goes. Sometimes lasts all day. Happens about once per week. Feels tremors in hand. Night sweats- stopped for a few months then came back in last few months. +Cold intolerance Missing a lot of work. Feels very similar to when she had thyroid issues. [place] like she was going to fall asleep driving. Abd pain, daily. Diagnosed with hiatal hernia, thinks CP may be related to that. + [place] thinks they're related to allergies. No SOB or cough. Hiatal hernia diagnosed in 2009, had EGD (while being worked up at bariatric center), diagnosed with ulcers and hernia. Taking omeprazole. No f/u recommended. Diet: [place] diet. String cheese, yogurt for breakfast. Protein bars, soup for lunch. Eats a lot of eggs. Smoker- 1 ppd. EtOH- 2-3 drinks/week. No drug use. Works in [employer] in [place]. Tried wellbutrin for smoking cessation. [place] very aggressive. I wanted to hurt someone, [place] anxiety and shaky. Only took for a few days. Symptoms went away. Denies feeling anxiety and depression currently. In the past, has had chest pains related to anxiety. Anxiety on and off since age 17. Has had large w/u in the past for CP. No known exposure to TB No h/o incarceration LMP 1 month ago. Partner is s/p vasectomy. Periods irregular. Vaginitis White discharge. More abundant than usual Smells bad Treated recently for BV- treated with Flagyl. Symptoms went away. Symptoms came back about 10-14 days ago. Would rather not take flagyl again but willing to try vaginal cream. Patient Active Problem List Diagnoses ??? Hypothyroid ??? TAMMY (obstructive sleep apnea) ??? Mena's thyroiditis ??? Tobacco use disorder ??? Palpitations ??? Depressive disorder, not elsewhere classified ??? Unspecified hypothyroidism ??? Murmur ??? Atypical chest pain ??? Cervical high risk HPV (human papillomavirus) test positive Past Medical History Diagnosis Date ??? Obese ??? History of tobacco use Current Outpatient Prescriptions on File Prior to Visit Medication Sig Dispense Refill ??? levothyroxine (SYNTHROID) 88 mcg tablet TAKE ONE TABLET BY MOUTH EVERY DAY 30 Tab 11 ??? buPROPion (WELLBUTRIN SR) 150 mg SR tablet Take 1 Tab by mouth 2 times daily. 60 Tab 2 ??? fluconazole (DIFLUCAN) 150 mg tablet Take 1 tab PO x1, repeat in 1 week prn 2 Tab 0 ??? mometasone (NASONEX) 50 mcg/Actuation nasal spray 2 Sprays by Nasal route daily. ??? omeprazole (PRILOSEC) 40 mg capsule Take 1 Cap by mouth daily. 90 Cap 4 ??? Cholecalciferol, Vitamin D3, (VITAMIN D) 2,000 unit Cap Take by mouth daily. No Known Allergies Social History Substance Use Topics ??? Smoking status: Current Everyday Smoker -- 0.5 packs/day ??? Smokeless tobacco: Never Used ??? Alcohol Use: Yes rare ROS - See HPI Objective: BP 120/70 Pulse 60 Temp(Src) 36.9 ??C (98.5 ??F) (Tympanic) Wt 70.58 kg (155 lb 9.6 oz) Physical Exam Vitals reviewed. Constitutional: She is oriented to person, place, and time. She appears well- developed and well-nourished. No distress. HENT: Head: Normocephalic and atraumatic. Mouth/Throat: Uvula is midline and oropharynx is clear and moist. Mucous membranes are not dry. Eyes: Conjunctivae and lids are normal. Pupils are equal, round, and reactive to light. No scleral icterus. Neck: Neck supple. Cardiovascular: Normal rate, regular rhythm and normal heart sounds. Pulmonary/Chest: Effort normal. She has no decreased breath sounds. She has no wheezes. She has no rhonchi. She has no rales. Abdominal: Normal appearance and bowel sounds are normal. There is no hepatosplenomegaly. There is tenderness in the epigastric area. Lymphadenopathy: She has no cervical adenopathy. Right: No supraclavicular adenopathy present. Left: No supraclavicular adenopathy present. Neurological: She is alert and oriented to person, place, and time. Skin: Multiple tatoos Psychiatric: Her speech is normal and behavior is normal. Judgment and thought content normal. Her mood appears anxious. Cognition and memory are normal. Assessment/Plan Teri was seen today for fatigue, abdominal pain and vaginitis. 31 yo female presents with multiple complaints- including fatigue, unintentional weight loss, constipation, night sweats, and tremors. Differential obviously very large, but will start by obtaining blood work. If blood work normal- consider GI work up (?repeat EGD), PPD placement, and further exploration in to possibility of anxiety/depression playing a role. Fatigue - Hemagram & Differential - Comprehensive Metabolic Panel (CMP) Bacterial vaginosis - clindamycin (CLEOCIN) 2 % vaginal cream; 5 grams intravaginally daily x5 days F/u blood work as ordered above. Formulate further plans depending on results. Kaylynn Rice MD 01/14/2012 19:35 documented in this encounter Plan of Treatment Upcoming Encounters Date Type Department Care Team (Late st Contact Info) Description 12/29/2024 10:20 EST Office Visit [facility] Rheumatology & Immunology - [address] [address] Micaela Hoff MD [address] [facility], [address] [place] [address] documented as of this encounter Procedures Procedure Name Priority Date/Time Associated Diagnosis Comments COMPLETE BLOOD COUNT AND DIFFERENTIAL Routine 01/12/2012 16:38 EDT Fatigue COMPREHENSIVE METABOLIC PANEL (CMP) Routine 01/12/2012 16:38 EDT Fatigue documented in this encounter Results * COMPREHENSIVE METABOLIC PANEL (CMP) (01/12/2012 16:38 EDT) Potassium 4.1 3.5 - 5.0 mEq/L [facility] Sodium 139 136 - 145 mEq/L [facility] Chloride 102 96 - 110 mEq/L [facility] CO2 28 24 - 32 mEq/L [facility] Total Alkaline Phosphatase 51 38 - 126 U/L [facility] Bilirubin, Total 0.5 0.2 - 1.3 mg/dl [facility] AST 23 15 - 46 U/L [facility] ALT 26 9 - 52 U/L [facility] Albumin 4.3 3.4 - 4.9 g/dl [facility] Total Protein 7.0 6.5 - 8.3 g/dl [facility] Creatinine 0.63 0.52 - 1.04 mg/dl [facility] GFR, Calculated >60 >60 ml/min/1.7 3m2 [facility] BUN 11 10 - 26 mg/dl [facility] Calcium 9.6 8.5 - 10.5 mg/dl [facility] Calculated Calcium 9.7 8.5 - 10.5 mg/dl [facility] Glucose, Serum 83 70 - 100 mg/dl [facility] Fasting? Unknown [facility] Blood specimen (specimen) 01/12/2012 16:38 EDT 01/12/2012 18:55 EDT Kaylynn Rice MD CHEMISTRY & BLOOD G ORDERABLES [facility] [address] [place] [address] * HEMAGRAM AND DIFFERENTIAL (01/12/2012 16:38 EDT) WBC 7.69 4.0 - 12.4 K/cmm [facility] RBC 4.79 3.86 - 5.04 M/cmm [facility] Hemoglobin 14.6 11.6 - 15.2 gm/dl [facility] HCT 42.5 34.9 - 44.4 % [facility] MCV 89 81 - 98 fl [facility] MCH 30.5 26.7 - 33.3 pg [facility] MCHC 34.4 32.1 - 35.9 gm/dl [facility] PLT 255 141 - 320 K/cmm [facility] RDW-CV 12.8 11.7 - 14.6 % [facility] % Neutrophils 53.3 45.5 - 79.7 % [facility] % Lymphocytes 37.8 15.0 - 46.8 % [facility] % Monocytes 6.6 1.8 - 12.0 % [facility] % Eosinophils 1.8 0.6 - 6.9 % [facility] % Basophils 0.5 0.2 - 1.4 % [facility] ABS Neutrophils 4.09 2.20 - 8.85 K/cmm [facility] ABS Lymphs 2.91 1.09 - 3.30 K/cmm [facility] ABS Monocytes 0.51 0.1 - 0.8 K/cmm [facility] ABS Eosinophils 0.14 0.03 - 0.61 K/cmm [facility] ABS Basophils 0.04 0.01 - 0.11 K/cmm [facility] Type of Diff: Automated [facility] Blood specimen (specimen) 01/12/2012 16:38 EDT 01/12/2012 18:55 EDT Kaylynn Rice MD PACKAGES & DNA PROB E ORDERABLES [facility] [address] [place] [address] documented in this encounter Visit Diagnoses Diagnosis Fatigue- Primary Other malaise and fatigue Bacterial vaginosis Vaginitis and vulvovaginitis, unspecified documented in this encounter Additional Health Concerns Infection Onset Date Last Indicated Resolved Time 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 Care Teams Horticulture Instructor Relationship Specialty Start Date End Date Yair Dow MD [address] [place] [phone] PCP - General 06/03/11 03/08/12 documented as of this encounter
--- OUTSIDE RECORDS SUMMARY | 2024-06-10 18:47 | XMS_ITS | Encounter Summary ---
Author Organization [facility] Address [address] [place] [address] Care Team Providers Care Medication Aide Name Role Phone Yair Dow MD Primary Care Provider [phone] Reason for Visit * Reason Onset Date Comments Medications Refill 10/02/2011 Encounter Details Date Type Department Care Team (Late st Contact Info) Description 10/02/2011 Refill [facility] Endocrinology - [address] [address] Izabel Crawford RN CDE Medications Refill Social [...] mouth daily. 30 Tab 2 10/02/2011 12/20/2011 documented in this encounter Miscellaneous Notes * Telephone Encounter - Izabel Crawford RN - 10/02/2011 1610 EST i called pt and informed her that per dr hansen last tft;s fine and i called in refills for her lt4 til her next appt Pt verbalized understanding. documented in this encounter Plan of Treatment Upcoming Encounters Date Type Department Care Team (Late st Contact Info) Description 12/29/2024 10:20 EST Office Visit [facility] Rheumatology & Immunology - [address] [phone] Micaela Hoff MD [address] [facility], [address] [place] [address] documented as of this encounter Visit Diagnoses Not on filedocumented in this encounter Discontinued Medications Medication Sig Discontinue Reason Start Date End Da te levothyroxine (SYNTHROID) 88 mcg tablet Take 1 Tab by mouth daily. Reorder 06/12/2011 10/02/2011 documented as of this encounter Care Teams Medication Aide Relationship Specialty Start Date End Date Yair Dow MD [address] [place] [phone] PCP - General 06/03/11 03/08/12 documented as of this encounter
--- OUTSIDE RECORDS SUMMARY | 2024-06-10 18:47 | XMS_ITS | Encounter Summary ---
Author Organization [facility] Address [address] [place] [address] Care Team Providers Care Production Designer Name Role Phone Yair Dow MD Primary Care Provider [phone] Reason for Visit * Reason Comments Wound Check pt here Sat for absc ess on left leg. Pt here for wound check Encounter Details Date Type Department Care Team (Late st Contact Info) Description 10/20/2011 15:59 EST - 10/20/2011 17:28 EST Emergency [facility] Emergency Department - [facility] [address] [place] [address] Jayson Bhakta, PA-C [address] [place] [address] Emergency, MD Fede Wound check, abscess Discharge Disposition: Home or Self Care Social [...] Sign Reading Time Taken Comments Blood Pressure 132/69 10/20/2011 1602 EST Pulse 69 10/20/2011 1602 EST Temperature 36.2 ??C (97.2 ??F) 10/20/2011 1602 EST Respiratory Rate 16 10/20/2011 1602 EST Oxygen Saturation 100% 10/20/2011 1602 EST Inhaled Oxygen Concentration - - Weight - - Height - - Body Mass Index - - documented in this encounter Discharge Instructions * Discharge Instructions* Jayson Bhakta PA - 10/20/2011 17:24 EST Use Motrin or Tylenol for pain. Stop Keflex, continue Bactrim and take full course. Okay to wash with soap and water, keep clean and covered until better. Return for worsening symptoms. documented in this encounter Medications at Time of Discharge Medication Sig Dispensed Refills Start Date End Date cephALEXin (KEFLEX) 250 mg capsule Take 1 Cap by mouth 4 times daily for 7 days. 28 Cap 0 10/18/2011 10/24/2011 Cholecalciferol, Vitamin D3, (VITAMIN D) 2,000 unit Cap Take by mouth daily. 01/23/2011 012 fluconazole (DIFLUCAN) 150 mg tablet Take [...] 10/13/2011 10/24/2011 documented as of this encounter Discharge Disposition Disposition Code Departure Means Destination Home or Self Senior Care documented in this encounter ED Notes * Jayson Bhakta PA - 10/20/2011 1720 EST Images from the original note were not included. DOS: 10/20/2011 Chief Complaint Patient presents with ??? Wound Check pt here Sat for abscess on left leg. Pt here for wound check The patient is a 31 y.o. female who presents today with Wound Check HPI Comments: 31-year-old female comes in for a wound check 2 days after having incision and drainage of a right leg abscess, likely the result of a new tattoo. Patient was seen by her PCP prior to her visit in the emergency room, was placed on Bactrim. 2 days ago she had incision and drainage, specimen sent for culture and sensitivity, was started on Keflex as well. Patient states her leg feels m uch better since then, with less swelling and redness, no fever or chills. The history is provided by the patient. Wound Check She was treated in the ED 2 to 3 days ago. Previous treatment in the ED includes I&D of abscessand oral antibiotics. Treatments since wound repair include oral antibiotics. There has been bloodydischarge from the wound. The redness has improved. The swelling has improved. The pain has improved. Review of Systems Constitutional: Negative for fever and chills. Skin: Positive for wound. History reviewed. No pertinent past medical history. [...] ??C (97.2 ??F) Temp src: Tympanic Pulse: 69 Resp: 16 SpO2: 100 % BP: 132/69 mmHg O2 Device: None (Room air) Physical Exam Constitutional: She appears well-nourished. No distress. Musculoskeletal: Legs: Neurological: She is alert. Skin: Skin is warm and dry. There is erythema. Psychiatric: She has a normal mood and affect. Radiology orders: None Procedures ED Course: A medical screening exam was performed. On exam, patient looks well, has normal vital signs. She has much less erythema and swelling on the right anterior leg then she did 2 days ago. Wick removed, area re\re bandage. Lab results reviewed, patient is MRSA positive. She is instructed to continue Bactrim, stop Keflex, follow V. CP, return for worsening symptoms. Disposition: Discharged The patient's pain was managed to an adequate level weighing risk vs. benefit of further medications. Upon departure from the Emergency Department, the patient's pain was 2 on a zero to ten scale. Condition at departure from the Emergency Department: Improved Discharge Prescriptions New Prescriptions No Discharge Prescriptions for this patient MDM Number of Diagnoses or Management Options Wound check, abscess: Diagnosis management comments: 2 1. Wound check, abscess PCP: Yair Dow MD Andrew Bushnell 10/20/2011 17:20 documented in this encounter Miscellaneous Notes * Scanned Note-Null - Senior Manufacturing Technician, Scan - 10/21/2011 2218 EST documented in this encounter Plan of Treatment Upcoming Encounters Date Type Department Care Team (Late st Contact Info) Description 12/29/2024 10:20 EST Office Visit [facility] Rheumatology & Immunology - [address] [id number] Micaela Hoff MD [address] [facility], [address] [place] [phone] documented as of this encounter Visit Diagnoses Diagnosis Wound check, abscess Encounter for other specified aftercare documented in this encounter Additional Health Concerns Infection Onset Date Last Indicated Resolved Time 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 Care Teams Production Designer Relationship Specialty Start Date End Date Yair Dow MD [address] [place] [phone] PCP - General 06/03/11 03/08/12 documented as of this encounter
--- OUTSIDE RECORDS SUMMARY | 2024-06-10 18:47 | XMS_ITS | Encounter Summary ---
Author Organization [facility] Address [address] [place] [address] Care Team Providers Care Cotton Picker Name Role Phone Yair Dow MD Primary Care Provider [phone] Unknown, Provider Primary Care Provider [phone] Ladonna Maurer Primary Care Provider [phone] Cara Arteaga MD Primary Care Provider Conor Angel MD Primary Care Provider [phone] None, Provider Primary Care Provider Kaylynn Pizarro MD Primary Care Provider [phone] Reason for Visit * Reason Comments Other Encounter Details Date Type Department Care Team (Late st Contact Info) Description 12/20/2011 Refill [facility] Endocrinology - [facility] [address] [place] [address] Drew Grijalva MD [address] [place] [address] [address] [place] [address] Other Social History Tobacco Use Types Packs/Day [...] EVERY DAY 30 Tab 11 12/20/2011 04/26/2014 documented in this encounter Plan of Treatment Upcoming Encounters Date Type Department Care Team (Late st Contact Info) Description 12/29/2024 10:20 EST Office Visit [facility] Rheumatology & Immunology - [address] [phone] Micaela Hoff MD [address] [facility], [address] [place] [phone] documented as of this encounter Visit Diagnoses Not on filedocumented in this encounter Discontinued Medications Medication Sig Discontinue Reason Start Date End Da te levothyroxine (SYNTHROID) 88 mcg tablet Take 1 Tab by mouth daily. Reorder 10/02/2011 12/20/2011 documented as of this encounter Additional Health Concerns Infection Onset Date Last Indicated Resolved Time 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 Care Teams Cotton Picker Relationship Specialty Start Date End Date Yair Dow MD [address] [place] [phone] PCP - General 06/03/11 03/08/12 Unknown, MD Jake PCP - General 03/09/12 05/11/12 Ladonna Maurer PA [address] [place] [address] PCP - General 05/12/12 01/24/13 Cara Arteaga MD [address] [place] [phone] PCP - General 01/25/13 02/06/14 Conor Angel MD [facility] [place] [address] PCP - General 02/07/14 06/08/14 None, Provider PCP - General 06/09/14 03/01/15 Kaylynn Gimenez MD [address] [place] [phone] PCP - General 03/02/15 documented as of this encounter
--- OUTSIDE RECORDS SUMMARY | 2024-06-10 18:47 | XMS_ITS | Encounter Summary ---
Author Organization [facility] Address [address] [place] [address] Care Team Providers Care Senior Underwriter Name Role Phone Yair Dow MD Primary Care Provider [phone] Encounter Details Date Type Department Care Team (Latest Contact Info) Description 02/03/2012 12:32 EDT - 02/03/2012 23:59 EDT Hospital Encounter [facility] Endoscopy Outpatient [address] [place] [address] Kenton Johnston MD Discharge Disposition: Home or Self Care Social [...] Sign Reading Time Taken Comments Blood Pressure 128/87 02/03/2012 1426 EDT Pulse - - Temperature - - Respiratory Rate 16 02/03/2012 1426 EDT Oxygen Saturation 99% 02/03/2012 1426 EDT Inhaled Oxygen Concentration - - Weight 68 kg (150 lb) 02/03/2012 1254 EDT Height 170.2 cm (5' 7) 02/03/2012 1254 EDT Body Mass Index 23.49 02/03/2012 1254 EDT documented in this encounter Medications at Time of Discharge Medication Sig Dispensed Refills Start Date End Date Cholecalciferol, Vitamin D3, (VITAMIN D) 2,000 unit Cap Take by mouth daily. 01/23/2011 clindamycin (CLEOCIN) 2 % vaginal creamIndications:Bact erial vaginosis 5 grams intravaginally daily x5 days 25 g 0 01/14/2012 02/10/2012 levothyroxine (SYNTHROID) 88 mcg tablet TAKE ONE TABLET BY MOUTH EVERY DAY 30 Tab 11 12/20/2011 04/26/2014 omeprazole (PRILOSEC) 40 mg capsuleIndications:Pe ptic ulcer disease Take 1 Cap by mouth daily. 90 Cap 4 07/14/2011 03/02/2012 documented as of this encounter Discharge Disposition Disposition Code Departure Means Destination Home or Self Group Home documented in this encounter H&P Notes * Kenton Johnston MD - 02/03/2012 1346 EDT Sedation for Procedure History & Physical Date: 02/03/2012 Time: 13:46 Location: [address] Planned Procedure: Gastroscopy Chief Complaint/Indications for Procedure: Abdominal pain. History Previous Complication with Sedation and/or Anesthesia? No Allergies: No Known Allergies Current Medications: (Not in a hospital admission) Past Medical History: Past Medical History Diagnosis Date ??? Obese ??? History of tobacco use ??? Thyroid disease Social History: Past Surgical History Procedure Date ??? Upper gastrointestinal endoscopy 09/03/2010 ??? [place] tooth extraction History Substance Use Topics ??? Smoking status: Current Everyday Smoker -- 0.5 packs/day ??? Smokeless tobacco: Never Used ??? Alcohol Use: 10.0 oz/week 2 Glasses of wine per week rare Family History: Family History Problem Relation Age of Onset ??? High Blood Pressure Mother brain aneurysm ??? Stroke Mother ??? Heart Disease Father 50 [place] ??? Diabetes Father ??? Thyroid Cancer/Nodule Maternal Aunt Cancer ??? Heart Disease Maternal Grandmother [place] ??? Diabetes Maternal Grandmother ??? Cancer Maternal Aunt thyroid Review of Systems as pertinent: Physical Exam Vital Signs: Ht 170.2 cm (67) Wt 68.04 kg (150 lb) BMI 23.49 kg/m2 LMP 12/17/2011 Heart Examination: Cardiac Regularity: Regular Respiratory Examination: Respiratory Pattern: Regular Breath Sounds Right: Clear Breath Sounds Left: Clear Additional physical exam related to the proposed procedure, patient activity, disease state and treatment as pertinent: Assessment Previous complications with sedation or anesthesia?: No Airway Concerns: None Anesthesia Classification: ASA 2 Fasting Time: Time of last liquid intake: 1899 Date of Last Liquid Intake: 02/02/12 Time of last solid intake: 1899 Date of last solid intake: 02/02/12 Patient Appropriate Candidate for Planned Sedation?: Yes documented in this encounter Procedure Notes * PAPETERIE TABLE ASSEMBLER, SCAN 2 - 02/04/2012 0802 EDTAssociated Order(s): PROCEDURE REPORTS - SCANNED documented in this encounter Miscellaneous Notes * Scanned Note-Null - PAPETERIE TABLE ASSEMBLER, SCAN 2 - 02/04/2012 1012 EDT * Scanned Note-Null - PAPETERIE TABLE ASSEMBLER, SCAN 2 - 02/04/2012 1012 EDT documented in this encounter Plan of Treatment Upcoming Encounters Date Type Department Care Team (Late st Contact Info) Description 12/29/2024 10:20 EST Office Visit [facility] Rheumatology & Immunology - [address] [phone] Micaela Hoff MD [address] [place] [address], [address] [place] [address] documented as of this encounter Procedures Procedure Name Priority Date/Time Associated Diagnosis Comments PROCEDURE REPORTS - SCANNED 02/04/2012 8:02 EDT TISSUE TRANSGLUTAMINASE ANTIBODY, IGA Routine 02/03/2012 13:40 EDT documented in this encounter Results * PROCEDURE REPORTS - SCANNED (02/04/2012 8:02 EDT) 02/04/2012 8:02 EDT Narrative Transcriptions PAPETERIE TABLE ASSEMBLER, SCAN 2 - 02/04/2012 8:02 EDT Scan 2 Snow Technician PROCEDURE/MINOR GREI GICAL ORDERABLES * TTG AB, IGA, S (02/03/2012 13:40 EDT) tTG Ab, IgA, S <1.2 <4.0 (Negative) U/mL [facility] Comment: Performed by: [facility] [place] [facility], [address], [place] [address], Boathouse Keeper: Estephania Guallpa, Ph.D. Blood specimen (specimen) 02/03/2012 13:40 EDT 02/03/2012 14:11 EDT Qasim Graves MD IMMUNOLOGY AND SER OLOGY ORDERABLES Performing Organization Address City/State/[facility] Co de Phone Number [facility] [address] [place] [address] documented in this encounter Visit Diagnoses Not on filedocumented in this encounter Administered Medications Inactive Administered Medications - up to 3 most recent administrations Medication Order MAR Action Action Date Dose Rate Site lactated ringers (LR) infusion 30 mL/hr, intravenous, CONTINUOUS, Starting on Thu02/03/12 at 1330, Until Thu02/05/12 at 0445, Routine, Preprocedure New Bag 02/03/2012 13:06 EDT 30 mL/hr 30 mL/hr documented in this encounter Orders Medications Ordered That Marlo ht Not Have Been Administered Count Last Ordered Date First Ordered Date fentanyl citrate (PF) 50 mcg /mL injection 100-250 mcg 1 02/03/2012 flumazenil (ROMAZICON) injection 0.2 mg 1 0 02/03/2012 lactated ringers (LR) infusion 1 02/03/2012 meperidine (PF) (DEMEROL) 10 0 mg/mL injection 25-200 mg 1 02/03/2012 midazolam (VERSED) injection 1-10 mg 1 01/2012 naloxone (NARCAN) injection 0.4 mg 1 2011 ondansetron (PF) (ZOFRAN) injection 2-4 mg 1 02/03/2012 Discharge Count Last Ordered Date First Orde red Date DISCHARGE PATIENT 1 02/03/2012 documented in this encounter Additional Health Concerns Infection Onset Date Last Indicated Resolved Time 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 Care Teams Senior Underwriter Relationship Specialty Start Date End Date Yair Dow MD [address] [place] [phone] PCP - General 06/03/11 03/08/12 documented as of this encounter
--- OUTSIDE RECORDS SUMMARY | 2024-06-10 18:47 | XMS_ITS | Encounter Summary ---
Author Organization [facility] Address [address] [place] [address] Care Team Providers Care Quick Sketch Artist Name Role Phone Yair Dow MD Primary Care Provider Reason for Visit * Reason Onset Date Comments Results 09/30/2011 Encounter Details Date Type Department Care Team (Late st Contact Info) Description 09/30/2011 Telephone [facility] Endocrinology - [address] [phone] Tawny Abrams MD [address] [place] [phone] Results Social History Tobacco Use Types Packs/Day [...] Telephone Encounter - Izabel Crawford RN - 10/01/2011 0949 EST Pt called back and i have scheduled her to see dr hansen on 11/18/11. She will need refill of lt4 so i will ask dr hansen to review her labs and authorize refill Pt verbalized understanding * Telephone Encounter - Izabel Crawford RN - 09/30/2011 1635 EST Left detailed message on work phone that her labs look ok but that since dr abrams has left the practice we need to get her set up with a new provider i asked her to call me back. * Telephone Encounter - Siobhan Casillas - 09/30/[address] Abrams changed pt's dosage of Synthroid about 3 months ago and pt had lab work done about 2 or 3 weeks ago and is calling to see the results and if this dose of synthroid will stay the same. Pt has about 1 week's worth of synthroid left. Please call pt. documented in this encounter Plan of Treatment Upcoming Encounters Date Type Department Care Team (Late st Contact Info) Description 12/29/2024 10:20 EST Office Visit [facility] Rheumatology & Immunology - [facility] [address] [place], [place] [address] Micaela Hoff MD [address] [facility], [address] [place] [address] documented as of this encounter Visit Diagnoses Not on filedocumented in this encounter Care Teams Quick Sketch Artist Relationship Specialty Start Date End Date Yair Dow MD [address] [place] [address] PCP - General 06/03/11 03/08/12 documented as of this encounter
--- OUTSIDE RECORDS SUMMARY | 2024-06-10 18:47 | XMS_ITS | Encounter Summary ---
Author Organization [facility] Address [address] [place] [address] Care Team Providers Care Vessel Crew Member Name Role Phone Yair Dow MD Primary Care Provider [phone] Reason for Visit * Reason Comments Cellulitis ? from a tatoo on he r left leg history 24 hours Encounter Details Date Type Department Care Team (Late st Contact Info) Description 10/13/2011 16:30 EST Office Visit [facility] [place] [address] [place], [place] [phone] Vishnu Gustafson MD [address] [place] [address] Cellulitis; Folliculitis Social History Tobacco Use Types Packs/Day Years [...] Sign Reading Time Taken Comments Blood Pressure 136/78 10/13/2011 1616 EST Pulse 72 10/13/2011 1616 EST Temperature 35.6 ??C (96.1 ??F) 10/13/2011 1616 EST Respiratory Rate 18 10/13/2011 1616 EST Oxygen Saturation 99% 10/13/2011 1616 EST Inhaled Oxygen Concentration - - Weight 78.9 kg (174 lb) 10/13/2011 1616 EST Height - - Body Mass Index 28.3 07/14/2011 1554 EDT documented in this encounter Ordered Prescriptions Prescription Sig Dispensed Refills Start Date End Da te fluconazole (DIFLUCAN) 150 mg tablet Take 1 Tab by mouth daily. 2 Tab 0 10/13/2011 10/24/2011 sulfamethoxazole-trimethop rim (BACTRIM/C0-TRIMOXAZOLE DS) 800-160 mg per tablet Take 1 Tab by mouth every 12 hours. 20 Tab 0 10/13/2011 10/24/2011 documented in this encounter Progress Notes * Vishnu Gustafson MD - 10/13/2011 1641 EST Subjective: Patient ID: Teri Haro is an 31 y.o. female. Chief Complaint Patient presents with ??? Cellulitis ? from a tatoo on her left leg history 24 hours HPIlesion on left calf, was getting some tatoo work done on leg so frequently lotioning and noticedpustule yesterday, squeezed small amnt purulent material, today reaccumulated, and now more sore. Patient Active Problem List Diagnoses ??? Hypothyroid [...] by mouth daily. 3 Each 3 ??? buPROPion (WELLBUTRIN SR) 150 mg SR [...] Systems Constitutional: Negative for fever and chills. Neurological: Positive for dizziness. - See HPI Objective: BP 136/78 Pulse 72 Temp(Src) 35.6 ??C (96.1 ??F) (Tympanic) Resp 18 Wt 78.926 kg (174 lb) SpO2 99% Physical Exam Assessment: Plan: Teri was seen today for cellulitis. Diagnoses and associated orders for this visit: Cellulitis Folliculitis Other Orders - sulfamethoxazole-trimethoprim (BACTRIM/C0-TRIMOXAZOLE DS) 800-160 mg per tablet; Take 1 Tab by mouth every 12 hours. - fluconazole (DIFLUCAN) 150 mg tablet; Take 1 Tab by mouth daily. Folliculitis with secondary cellulitis. Will cover for community-acquired MRSA by going with Bactrim. Patient also notes that she frequently gets yeast infections following antibiotics so gave her Diflucan script. Follow up for spreading redness or fevers. documented in this encounter Plan of Treatment Upcoming Encounters Date Type Department Care Team (Late st Contact Info) Description 12/29/2024 10:20 EST Office Visit [facility] Rheumatology & Immunology - [address] [address] Micaela Hoff MD [address] [facility], [address] [place] [phone] documented as of this encounter Visit Diagnoses Diagnosis Cellulitis Cellulitis and abscess of unspecified site Folliculitis Other specified disease of hair and hair follicles documented in this encounter Discontinued Medications Medication Sig Discontinue Reason Start Date End Da te LEVONORGESTREL (MIRENA IU) by Intrauterine route. Every 5 years Therapy completed 10/13/2011 documented as of this encounter Care Teams Vessel Crew Member Relationship Specialty Start Date End Date Yair Dow MD [address] [place] [phone] PCP - General 06/03/11 03/08/12 documented as of this encounter
--- OUTSIDE RECORDS SUMMARY | 2024-06-10 18:47 | XMS_ITS | Encounter Summary ---
Author Organization [facility] Address [address] [place] [address] Care Team Providers Care Food Beverage Supervisor Name Role Phone Yair Dow MD Primary Care Provider [phone] Reason for Visit * Reason Onset Date Comments Cellulitis 10/18/2011 Encounter Details Date Type Department Care Team (Late st Contact Info) Description 10/18/[address] [address] Loren Singletary MD [address] [place], [place] [phone] Cellulitis Social History Tobacco Use Types Packs/Day Years [...] encounter Miscellaneous Notes * Telephone Encounter - Loren Singletary - 10/18/2011 7861 EST 31 year old female seen for cellulitis 5 days ago started on bactrim. Now with worsening pain and amass that is hard to the touch and feels flatulent. No fevers or chills. Very painful. Referred to ED for I&D of possible abscess documented in this encounter Plan of Treatment Upcoming Encounters Date Type Department Care Team (Late st Contact Info) Description 12/29/2024 10:[address] [facility] Rheumatology & Immunology - [address] [phone] Micaela Hoff MD [address] [facility], [address] [place] [address] documented as of this encounter Visit Diagnoses Not on filedocumented in this encounter Care Teams Food Beverage Supervisor Relationship Specialty Start Date End Date Yair Dow MD [address] [place] [address] PCP - General 06/03/11 03/08/12 documented as of this encounter
--- OUTSIDE RECORDS SUMMARY | 2024-06-10 18:47 | XMS_ITS | Encounter Summary ---
Author Organization [facility] Address [address] [place] [address] Care Team Providers Care Construction Project Coordinator Name Role Phone Yair Dow MD Primary Care Provider [phone] Reason for Visit * Reason Onset Date Comments Results 03/04/2012 Encounter Details Date Type Department Care Team (Late st Contact Info) Description 03/04/[address] [address] Yair Dow MD [address] [place] [address] [address] [facility] [address] [place] [address] Results Social History Tobacco Use [...] * Telephone Encounter - Aleksandra Vera - 03/04/2012 1417 EDT Spoke with patient and informed her that the results are still pending on the throat culture. She states it has gotten much worse, throat is bleeding, white pus all over back of throat, feels absolutely miserable. Informed her if she is that bad she should go to the [facility] today to be seen and evaluated. Patient agreed to do that. No barriers identified. Verbalized understanding. * Telephone Encounter - Babs Casanova - 03/04/2012 1221 EDT Had strep test done on Thursday, hasn't heard on results. Would like a call back, please. documented in this encounter Plan of Treatment Upcoming Encounters Date Type Department Care Team (Late st Contact Info) Description 12/29/2024 10:20 EST Office Visit [facility] Rheumatology & Immunology - [address] [phone] Micaela Hoff MD 111 [facility], [address] [place] [phone] documented as of this encounter Visit Diagnoses Not on filedocumented in this encounter Additional Health Concerns Infection Onset Date Last Indicated Resolved Time 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 Care Teams Construction Project Coordinator Relationship Specialty Start Date End Date Yair Dow MD [address] [place] [phone] PCP - General 06/03/11 03/08/12 documented as of this encounter
--- OUTSIDE RECORDS SUMMARY | 2024-06-10 18:47 | XMS_ITS | Encounter Summary ---
Author Organization [facility] Address [address] [place] [address] Care Team Providers Care Commutator Undercutter Name Role Phone Yair Dow MD Primary Care Provider [phone] Reason for Visit * Reason Comments Fatigue follow up ED Encounter Details Date Type Department Care Team (Late st Contact Info) Description 01/19/2012 16:00 EDT Office Visit [address] [address] Kaylynn Rice MD [address] [address] Abdominal pain; Fatigue; Dry eyes Social History Tobacco Use Types Packs/Day Years [...] Sign Reading Time Taken Comments Blood Pressure 126/70 01/19/2012 1548 EDT Pulse 56 01/19/2012 1548 EDT Temperature - - Respiratory Rate 18 01/19/2012 1548 EDT Oxygen Saturation 98% 01/19/2012 1548 EDT Inhaled Oxygen Concentration - - Weight 69.9 kg (154 lb) 01/19/2012 1548 EDT Height 168.9 cm (5' 6.5) 01/19/2012 1548 EDT Body Mass Index 24.48 01/19/2012 1548 EDT documented in this encounter Progress Notes * Kaylynn Rice MD - 01/19/2012 1608 EDT Subjective: Patient ID: Teri Haro is an 31 y.o. female. Chief Complaint Patient presents with ??? Fatigue follow up ED HPI Here for f/u. There is something seriously wrong with me and I can't function anymore Only thing she can do is sit on the couch and sleep. Has had extensive work up (see my last note and ED note). Seen in ED- recommend testing for celiac and Sjrogens. ER clinician also recommended referral to GI and rheum. ROS: No fevers/chills. ++Fatigue +Weight loss +[place]O Has sensation there is sand in her eyes. +Dry mouth Skin is dry and hair feels dry and brittle. No cough or SOB. Feels that it's hard to breathe at times because of fatigue. Has constant CP (been through extensive work up previously). ++Abd pain (histal hernia bothering her more). Very limited in what she can eat due to pain. Takes PPI. +constipation No urinary symptoms. No chance of - UPT neg in ED. +Muscle fatigue. Denies anxiety/depression (everyone wants to blame it on that, it's not that) Reviewed previous biopsies from last EGD: A. Duodenum, biopsy: 1. Duodenal mucosa with no specific pathologic findings. B. Stomach, biopsy: 1. Portions of foveolar epithelium with mild reactive and hyperplastic changes. 2. Aggregates of acute inflammatory cells with degenerative tissue debris, suggestive of ulcer/erosion. 3. Focal foveolar and glandular reactive and regenerative changes. 4. Immunohistochemistry is negative for Helicobacter pylori. See comment. C. Gastroesophageal junction, biopsy: 1. Columnar mucosa with acute and chronic inflammation and marked reactive atypia. 2. Squamous mucosa with reactive changes. 3. No definite goblet cells, intestinal metaplasia, or dysplasia is identified. Patient Active Problem List Diagnoses ??? Hypothyroid [...] to Visit Medication Sig Dispense Refill ??? clindamycin (CLEOCIN) 2 % vaginal cream 5 grams intravaginally daily x5 days 25 g 0 ??? levothyroxine (SYNTHROID) 88 mcg tablet TAKE [...] 2 Glasses of wine per week rare Review of Systems Constitutional: Positive for weight loss and malaise/fatigue. Cardiovascular: Positive for chest pain. Neurological: Positive for weakness. - See HPI Objective: BP 126/70 Pulse 56 Resp 18 Ht 168.9 cm (66.5) Wt 69.854 kg (154 lb) BMI 24.48 kg/m2 SpO2 98% LMP 12/17/2011 Physical Exam Vitals reviewed. Constitutional: She appears well-developed and well-nourished. She appears distressed. Tearful and frustrated HENT: Head: Normocephalic and atraumatic. Mouth/Throat: Uvula is midline, oropharynx is clear and moist and mucous membranes are normal. Eyes: Conjunctivae and lids are normal. Pupils are equal, round, and reactive to light. No scleral icterus. Neck: Neck supple. No mass and no thyromegaly present. Cardiovascular: Normal rate, regular rhythm and normal heart sounds. Pulmonary/Chest: Effort normal and breath sounds normal. Abdominal: Normal appearance and bowel sounds are normal. There is tenderness in the epigastric area. Psychiatric: Her speech is normal and behavior is normal. Judgment and thought content normal. Her mood appears anxious. Cognition and memory are normal. She exhibits a depressed mood. Frustrated and worried Assessment/Plan Teri was seen today for fatigue. 31 yo female presents with multiple complaints as listed above. Extensive work up has failed to reveal etiology. Patient is visibly frustrated and worried about being unable to care for her child and unable to keep her job. At this point, we will proceed with further blood work and set her up for an EGD. Abdominal pain - Sed. Rate:Westergren - ANCA - Upper Endoscopy - Endomysial Antibody, Serum - TTG Ab, IgA, S Fatigue - Sed. Rate:Westergren - Anti Nuclear Antibody - Rheumatoid Factor - SSA/SSB - ANCA - Upper Endoscopy Dry eyes - SSA/SSB - ANCA Discussed ?GI referral or rheum referral. Will hold for now and obtain blood work and EGD. Follow up above blood work/studies. Further work up/evaluation pending results. Kaylynn Rice MD documented in this encounter Plan of Treatment Upcoming Encounters Date Type Department Care Team (Late st Contact Info) Description 12/29/2024 10:20 EST Office Visit [facility] Rheumatology & Immunology - [address] [address] Micaela Hoff MD [address] [place] [address], [address] [place] [address] Scheduled Orders Name Type Priority Associated Diagnoses Orde r Schedule UPPER ENDOSCOPY GI Routine Fatigue Abdominal pain Ordered: 01/19/2012 documented as of this encounter Procedures Procedure Name Priority Date/Time Associated Diagnosis Comments SSA/SSB Routine 01/19/2012 16:29 EDT Fatigue Dry eyes ENDOMYSIAL ANTIBODY, SERUM Routine 01/19/2012 16:29 EDT Abdominal pain TISSUE TRANSGLUTAMINASE ANTIBODY, IGA Routine 01/19/2012 16:29 EDT Abdominal pain ANCA, IFA Routine 01/19/2012 16:29 EDT Abdominal pain Fatigue Dry eyes SED RATE Routine 01/19/2012 16:29 EDT Fatigue Abdominal pain RHEUMATOID FACTOR Routine 01/19/2012 16: 29 EDT Fatigue ANTI NUCLEAR AB (LIZZIE), IFA Routine 01/19/2012 16:29 EDT Fatigue documented in this encounter Results * TTG AB, IGA, S (01/19/2012 16:29 EDT) tTG Ab, IgA, S <1.2 <4.0 (Negative) U/mL [facility] Comment: Performed by: [facility], [address], [place] [address], Train Announcer: Estephania Guallpa, Ph.D. Blood specimen (specimen) 01/19/2012 16:29 EDT 01/19/2012 19:50 EDT Kaylynn Rice MD IMMUNOLOGY AND SERO LOGY ORDERABLES Performing Organization Address [facility] Co de Phone Number [facility] [address] [place] [address] * ENDOMYSIAL ANTIBODY, SERUM (01/19/2012 16:29 EDT) Endomysial Antibodies Negative Negative [facility] Comment: (Note) Negative in normal Individuals. May be negative in dermatitis herpatiformis or celiac disease patients adhering to a gluten free diet. Laboratory developed test. Performed or Referred by: [facility], [address] [place] [address], Lab Dir: Juan Coto III, MD Blood specimen (specimen) 01/19/2012 16:29 EDT 01/19/2012 19:50 EDT Kaylynn Rice MD IMMUNOLOGY AND SERO LOGY ORDERABLES Performing Organization Address City/[facility] Co de Phone Number [facility] [address] [place] [address] * ANCA (01/19/2012 16:29 EDT) ANCA Neg Neg Dils [facility] Blood specimen (specimen) 01/19/2012 16:29 EDT 01/19/2012 19:50 EDT Kaylynn Rice MD IMMUNOLOGY AND SERO LOGY ORDERABLES Performing Organization Address [facility] de Phone Number [facility] [address] [place] [address] * SSA/SSB (01/19/2012 16:29 EDT) SS A/Ro Ab, IgG, S <0.2 <1.0 (Negative) U [facility] SS B/La Ab, IgG, S <0.2 <1.0 (Negative) U [facility] Comment: Performed by: [facility], [address], [place] [address], Train Announcer: Estephania Guallpa, Ph.D. Blood specimen (specimen) 01/19/2012 16:29 EDT 01/19/2012 19:50 EDT Kaylynn Rice MD CHEMISTRY & BLOOD G ORDERABLES Performing Organization Address [facility] de Phone Number [facility] [address] [place] [address] * RHEUMATOID FACTOR (01/19/2012 16:29 EDT) Rheumatoid Factor <20 <20 IU/ml [facility] Blood specimen (specimen) 01/19/2012 16:29 EDT 01/19/2012 19:50 EDT Kaylynn Rice MD CHEMISTRY & BLOOD G ORDERABLES Performing Organization Address [facility] Co de Phone Number [facility] [address] [place] [address] * ANTI NUCLEAR ANTIBODY (01/19/2012 16:29 EDT) Anti Nuclear Ab <40 0 - 40 Dils [facility] Blood specimen (specimen) 01/19/2012 16:29 EDT 01/19/2012 19:50 EDT Kaylynn Rice MD IMMUNOLOGY AND SERO LOGY ORDERABLES Performing Organization Address [facility] Co de Phone Number [facility] [address] [place] [address] * SED. RATE:LAURE (01/19/2012 16:29 EDT) Sed. Rate Adeleren 10 0 - 20 mm/hr [facility] Blood specimen (specimen) 01/19/2012 16:29 EDT 01/19/2012 19:50 EDT Kaylynn Rice MD HEMATOLOGY & PF4 OR DERABLES Performing Organization Address [facility] de Phone Number [facility] [address] [place] [address] documented in this encounter Visit Diagnoses Diagnosis Abdominal pain Abdominal pain, unspecified site Fatigue Other malaise and fatigue Dry eyes Tear film insufficiency, unspecified documented in this encounter Discontinued Medications Medication Sig Discontinue Reason Start Date End Da te mometasone (NASONEX) 50 mcg/Actuation nasal sprayIndications:Unspec ified hypothyroidism,Chronic lymphocytic thyroiditis 2 Sprays by Nasal route daily. 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
--- OUTSIDE RECORDS SUMMARY | 2024-06-10 18:47 | XMS_ITS | Encounter Summary ---
Author Organization [facility] Address [address] [place] [address] Care Team Providers Care Trading Analyst Name Role Phone Yair Dow MD Primary Care Provider [phone] Reason for Visit * Reason Onset Date Comments Contraception 07/31/2011 Wants removed Encounter Details Date Type Department Care Team (Late st Contact Info) Description 07/31/[address] [address] Yair Dow MD [address] [place] [address] [phone] Contraception (Wants removed) Social History Tobacco Use Types Packs/Day Years [...] encounter Miscellaneous Notes * Telephone Encounter - Carol Burnham - 07/31/2011 0912 EDT Called pt. She is requesting her IUD be removed today. She has been experiencing fatigue, headaches, abdominal pain, and worsening acne over the last 3 years. She states she talked to Dr. Dow and has decided the IUD may be causing these side effects. She is upset and would like to have it removed today. Spoke to Dr. Janay, added pt into schedule today. No barriers identified. Verbalizes unders tanding. * Telephone Encounter - Noemi Stephany Zimmerman - 07/31/2011 0853 EDT Pt calling stating she wants her IUD removed today it is emergency. She states if we do not see hertoday she will pull it out herself. Please advise documented in this encounter Plan of Treatment Upcoming Encounters Date Type Department Care Team (Late st Contact Info) Description 12/29/2024 10:20 EST Office Visit [facility] Rheumatology & Immunology - [address] [phone] Micaela Hoff MD [address] [facility], [address] [place] [address] documented as of this encounter Visit Diagnoses Not on filedocumented in this encounter Care Teams Trading Analyst Relationship Specialty Start Date End Date Yair Dow MD [address] [place] [phone] PCP - General 06/03/11 03/08/12 documented as of this encounter
--- OUTSIDE RECORDS SUMMARY | 2024-06-10 18:47 | XMS_ITS | Encounter Summary ---
Author Organization [facility] Address [address] [place] [address] Care Team Providers Care Roller Coaster Designer Name Role Phone Yair Dow MD Primary Care Provider [phone] Reason for Visit * Reason Comments Fatigue Diagnosed a year ago with Hosimoto's. Over last couple weeks has increase fatigue, near syncopal, missing work. Various aches and pains. GERD acting up. Skin pink and dry. NAD. Encounter Details Date Type Department Care Team (Late st Contact Info) Description 01/14/2012 10:47 EDT - 01/14/2012 14:51 EDT Emergency [facility] Emergency Department - Main [place] [address], [place] [id number] Carol Spencer PA [address] [place] [address] Emergency, MD Fede Fatigue Discharge Disposition: Home or Self Care Social [...] Sign Reading Time Taken Comments Blood Pressure 104/79 01/14/2012 1450 EDT Pulse 72 01/14/2012 1450 EDT Temperature 37.7 ??C (99.9 ??F) 01/14/2012 1111 EDT Respiratory Rate 16 01/14/2012 1450 EDT Oxygen Saturation 99% 01/14/2012 1450 EDT Inhaled Oxygen Concentration - - Weight 68 kg (150 lb) 01/14/2012 1111 EDT Height 170.2 cm (5' 7) 01/14/2012 1111 EDT Body Mass Index 23.49 01/14/2012 1111 EDT documented in this encounter Discharge Instructions * Discharge Instructions* Carol Spencer - 01/14/2012 14:41 EDT Continue to rest as you are able, drink plenty of clear fluids, and eat as normally tolerated. Continue to take your prescribed medications as directed. Make an appointment to follow-up with your regular provider to discuss being evaluated for Celiac Disease which could explain a lot of your symptoms. This is a lab panel called Celiac lab panel. Return to the ER with development of a fever greater than 100.4' not controlled with Tylenol/Ibuprofen, chest pain, difficulty breathing, or other symptoms you feel require emergent evaluation. documented in this encounter Medications at Time [...] EVERY DAY 30 Tab 11 12/20/2011 04/26/2014 mometasone (NASONEX) 50 mcg/Actuation nasal sprayIndications:Unsp ecified hypothyroidism,Chroni c lymphocytic thyroiditis 2 Sprays by Nasal route daily. 01/19/2012 omeprazole (PRILOSEC) 40 mg capsuleIndications:Pe ptic ulcer disease Take 1 Cap by mouth daily. 90 Cap 4 07/14/2011 03/02/2012 documented as of this encounter Discharge Disposition Disposition Code Departure Means Destination Home or Self Care documented in this encounter Procedure Notes * AIR GUN OPERATOR, ISELA 2 - 02/04/2012 0744 EDTAssociated Order(s): ECG REPORT - SCANNED documented in this encounter ED Notes * Carol Spencer - 01/19/2012 1054 EDT DOS: 01/14/2012 Chief Complaint Patient presents with ??? Fatigue Diagnosed a year ago with Hosimoto's. Over last couple weeks has increase fatigue, near syncopal, missing work. Various aches and pains. GERD acting up. Skin pink and dry. NAD. The patient is a 31 y.o. female who presents today with Fatigue HPI Comments: Patient presents with multiple medical complaints. Patient states she ws diagnosed with Mena's thyroiditis ~ 1 year ago which has been managed with levothyroxine and a recent normal thyroid ultrasound. Now c/o continued fatigue, arthralgias, myalgias, intermittent tingling in b/lupper and lower extremities, alternating diarrhea and constipation, and increased acid reflux. Diarrhea is described as loose, foul-smelling, with steatorrhea, and yellow; stools during constipation are small, round and firm pellets. Also c/o dry mouth and eyes. Patient denies fever, chills, night sweats, change in appetite, unintentional weight loss, skin changes, headaches, N/V, chest pain, SOB, palpitations, hematochezia, melena, dysuria, hematuria, flank pain, back pain, abdominal pain. The history is provided by the patient. Review of Systems Constitutional: Positive for fatigue. Negative for fever, chills, diaphoresis, activity change, appetite change and unexpected weight change. Patient states she has lost ~ 100lbs in one year. Eyes: Negative for visual disturbance. Respiratory: Negative for cough, chest tightness, shortness of breath and wheezing. Cardiovascular: Negative for chest pain, palpitations and leg swelling. Gastrointestinal: Positive for diarrhea and constipation. Negative for nausea, vomiting, abdominal pain, blood in stool and abdominal distention. Genitourinary: Negative for dysuria and hematuria. Musculoskeletal: Positive for myalgias and arthralgias. Negative for back pain and joint swelling. Skin: Negative for color change, pallor and rash. Neurological: Negative for dizziness, syncope, weakness, light-headedness and headaches. Hematological: Negative for adenopathy. All other systems reviewed and are negative. Past Medical History Diagnosis Date ??? Obese ??? History of tobacco use ??? Thyroid disease Past Surgical History Procedure Date ??? Upper gastrointestinal endoscopy 09/03/2010 No Known Allergies History Substance Use Topics ??? Smoking status: Current Everyday Smoker -- 0.5 packs/day ??? Smokeless tobacco: Never Used ??? Alcohol Use: 10.0 oz/week 2 Glasses of wine per week rare Family History Problem Relation Age of Onset ??? High Blood Pressure Mother brain aneurysm ??? Stroke Mother ??? Heart Disease Father 50 DC ??? Diabetes Father ??? Thyroid Cancer/Nodule Maternal Aunt Cancer ??? Heart Disease Maternal Grandmother DC ??? Diabetes Maternal Grandmother ??? Cancer Maternal Aunt thyroid Vital Signs Temp: 37.7 ??C (99.9 ??F) Temp src: Tympanic Pulse: 72 Resp: 16 SpO2: 99 % SpCO: 0 % BP: 104/79 mmHg O2 Device: None (Room air) Physical Exam Nursing note and vitals reviewed. Constitutional: She is oriented to person, place, and time. Vital signs are normal. She appears well-developed and well-nourished. She does not appear ill. No distress. HENT: Head: Normocephalic and atraumatic. Right Ear: External ear normal. Left Ear: External ear normal. Nose: Nose normal. Mouth/Throat: Oropharynx is clear and moist. Eyes: Conjunctivae and EOM are normal. Pupils are equal, round, and reactive to light. Neck: Trachea normal, normal range of motion and phonation normal. Neck supple. No mass and no thyromegaly present. Cardiovascular: Normal rate, regular rhythm, intact distal pulses and normal pulses. PMI is not displaced. Murmur heard. Crescendo systolic murmur is present with a grade of 1/6 Pulmonary/Chest: Effort normal and breath sounds normal. No respiratory distress. She exhibits no tenderness. Abdominal: Soft. Bowel sounds are normal. She exhibits no distension and no mass. There is no tenderness. There is no rebound and no guarding. Musculoskeletal: Normal range of motion. She exhibits no edema and no tenderness. Lymphadenopathy: She has no cervical adenopathy. Neurological: She is alert and oriented to person, place, and time. She has normal strength and normal reflexes. No cranial nerve deficit or sensory deficit. She displays a negative Romberg sign. Reflex Scores: Brachioradialis reflexes are 2+ on the right side and 2+ on the left side. Patellar reflexes are 2+ on the right side and 2+ on the left side. Skin: Skin is warm, dry and intact. No rash noted. She is not diaphoretic. No pallor. Nails show noclubbing. Psychiatric: She has a normal mood and affect. Radiology orders: None EKG 12-LEAD (Results Pending) Normal sinus rhythm without evidence of acute ST-T elevations Procedures Labs Reviewed GLUCOSE, GLUCOMETER - Abnormal; Notable for the following: Glucose, Fingerstick 120 (*) All other components within normal limits POCT URINE DIPSTICK - Abnormal; Notable for the following: Ketones Trace (*) Blood Trace (*) Leuk Esterase 1+ (*) All other components within normal limits POCT URINE TEST - Normal POCT GLUCOSE TSH GLUCOSE, GLUCOMETER ED Course: A medical screening exam was performed. VSS, afebrile (99.9' upon arrival). Reviewed recent labs ordered by primary this week as well as thyroid ultrasound (normal). Patient's various medical complaints and physical exam not consistent with an emergent pathology. TSH is returned normal today. Did have a lengthy discussion with the patient regarding a remote possibility of another autoimmune disease that would explain her multitude of symptoms including alternating bowel habits, extremity tingling, dry mouth/eyes, insomnia, mental fogginess, and generalized fatigue such as Celiac Sprue. Given diagnosis of Mena's, this is a possibility. Referred patient back to PCP for further discussionand work-up regarding possible further autoimmune diagnosis. Patient agrees with the discharge planand understands the need for close follow-up as necessary. Disposition: Discharged The patient's pain was managed to an adequate level weighing risk vs. benefit of further medications. Upon departure from the Emergency Department, the patient's pain was 1 on a zero to ten scale. Condition at departure from the Emergency Department: Good Discharge Prescriptions New Prescriptions No Discharge Prescriptions for this patient MDM Number of Diagnoses or Management Options Fatigue: Diagnosis management comments: 4 Amount and/or Complexity of Data Reviewed Clinical lab tests: ordered and reviewed Tests in the radiology section of CPT??: reviewed (Thyroid ultrasound) Tests in the medicine section of CPT??: ordered and reviewed Decide to obtain previous medical records or to obtain history from someone other than the patient:yes Review and summarize past medical records: yes Independent visualization of images, tracings, or specimens: yes (EKG) 1. Fatigue PCP: Yair Dow MD Marty Bak was available for supervision. 01/19/2012 10:54 * Gregor Polo - 01/14/2012 1412 EDT Pt resting quietly, NAD. Pt awaiting lab results and dispo plan * Gregor Polo - 01/14/2012 1320 EDT 12 Lead EKG Performed by Gregor Polo RN and shown to Carol Spencer PA, and Dr. Bradley. * Gregor Polo - 01/14/2012 1250 EDT Evaluated by DELFINA Spencer at bedside * Melissa Lam RN - 01/14/2012 1111 EDT Saw PCP two days ago, labs drawn. documented in this encounter Miscellaneous Notes * Scanned Note-Null - AIR GUN OPERATOR, SCAN 2 - 01/15/2012 2324 EDT documented in this encounter Plan of Treatment Upcoming Encounters Date Type Department Care Team (Late st Contact Info) Description 12/29/2024 10:20 EST Office Visit [facility] Rheumatology & Immunology - [address] [address] Micaela Hoff MD [address] [place] [address], [address] [place] [address] Pending Results Name Type Priority Associated Diagnoses Date /Time GLUCOSE, GLUCOMETER Lab Routine 01/13 11:55 EDT Scheduled Orders Name Type Priority Associated Diagnoses Orde r Schedule GLUCOSE, GLUCOMETER Lab Routine For m edications that can be administered at any time during the hospitalization for visit such as immunizations. for 1 Occurrences starting 01/14/2012 documented as of this encounter Procedures Procedure Name Priority Date/Time Associated Diagnosis Comments ECG REPORT - SCANNED 02/04/2012 7:44 EDT POCT TEST, VISUAL READ STAT 01/14/2012 13:24 EDT TSH STAT 01/14/2012 13:13 EDT POCT URINE DIPSTICK, CLINITEK STAT 01/14/2012 13:05 EDT EKG 12-LEAD STAT 01/14/2012 13:00 EDT GLUCOSE, GLUCOMETER Routine 01/14/2012 1 1:55 EDT documented in this encounter Results * ECG REPORT - SCANNED (02/04/2012 7:44 EDT) 02/04/2012 7:44 EDT Narrative Transcriptions AIR GUN OPERATOR, SCAN 2 - 02/04/2012 7:44 EDT Scan 2 Safety Engineer Pressure Vessels PROCEDURE/MINOR GERI GICAL ORDERABLES * POCT URINE TEST (01/14/2012 13:24 EDT) Test, Urine, POC Negative Reference Range, Negative POINT OF CARE Control Line Present Yes POINT OF CARE Background Clear? Yes POINT OF CARE Urine specimen (specimen) 01/14/2012 13:24 EDT Carol AVILA POINT OF CARE TEST O RDERABLES Performing Organization Address City/[facility]/ZIP Co de Phone Number POINT OF CARE * TSH (01/14/2012 13:13 EDT) TSH 0.46 0.35 - 5.00 uIU/ml [facility] Blood specimen (specimen) 01/14/2012 13:13 EDT 01/14/2012 13:25 EDT Carol AVILA CHEMISTRY & BLOOD GA S ORDERABLES Performing Organization Address [facility] de Phone Number [facility] [address] [place] [address] * (ABNORMAL) POCT URINE DIPSTICK (01/14/2012 13:05 EDT) Color YELLOW [facility] Clarity, UA Clear [facility] Glucose Neg Neg [facility] Bilirubin Neg Neg [facility] Ketones Trace(A) Neg [facility] Specific [place] 1.020 1.001 - 1.035 [facility] Blood Trace(A) Neg [facility] pH 6.5 4.6 - 8.0 [facility] Protein Neg Neg [facility] Urobilinogen 0.2 0.2 - 1.0 E.U./dl [facility] Nitrite Neg Neg [facility] Leuk Esterase 1+(A) Neg KAROLINA CURIEL conservation policy analyst ID [id number] [facility] Comment:Test Performed by [facility] Urine specimen (specimen) 01/14/2012 13:05 EDT 01/14/2012 13:19 EDT Carol AVILA POINT OF CARE TEST O RDERABLES Performing Organization Address [facility] Co de Phone Number [facility] [address] [place] [address] * (ABNORMAL) GLUCOSE, GLUCOMETER (01/14/2012 11:55 EDT) Glucose, Fingerstick 120(H) 70 - 100 mg/dl [facility] Super[employer] [place] [id number] [facility] Comment:Test Performed by [facility] 01/14/2012 11:5 5 EDT 01/14/2012 11:57 EDT Provider Unknown CHEMISTRY & BLOOD GA S ORDERABLES [facility] [address] [place] [address] documented in this encounter Visit Diagnoses Diagnosis Fatigue Other malaise and fatigue documented in this encounter Administered Medications Inactive Administered Medications - up to 3 most recent administrations Medication Order MAR Action Action Date Dose Rate Site sodium chloride (NS) 0.9 % 1,000 mL BOLUS 1,000 mL, intravenous, Once (Without Time Specified), 1 dose, Starting on Thu01/14/12 at 1315, Until Thu01/14/12 at 1324, STAT Given 01/14/2012 13:24 EDT 1,000 mL Right A rm documented in this encounter Discontinued Medications Medication Sig Discontinue Reason Start Date End Da te buPROPion (WELLBUTRIN SR) 150 mg SR tabletIndications:Tobacc o dependence Take 1 Tab by mouth 2 times daily. 12/03/2011 01/14/2012 fluconazole (DIFLUCAN) 150 mg tabletIndications:Yeast vaginitis Take 1 tab PO x1, repeat in 1 week prn 12/03/2011 01/14/2012 documented as of this encounter Active and Recently Administered Medications Times are shown in EDT. Scheduled Medication Order 01/12/2012 01/13/2012 01/14/2012 sodium chloride (NS) 0.9 % 1,000 mL BOLUS (COMPLETED) 1,000 mL, intravenous, Once (Without Time Specified), 1 dose, Starting on Thu01/14/12 at 1315, Until Thu01/14/12 at 1324, STAT 1324 (Given - Provid er: Jessica Velásquez) documented in this encounter Orders Medications Ordered That Marlo ht Not Have Been Administered Count Last Ordered Date First Ordered Date sodium chloride (NS) 0.9 % 1,000 mL BOLUS 1 01/14/2012 Lab Orders Without Results Count Last Ordered D ate First Ordered Date POCT GLUCOSE 1 01/14/2012 EKG Orders Without Results Count Last Ordered D ate First Ordered Date EKG 12-LEAD 1 01/14/2012 Nursing Count Last Ordered Date First Orde red Date INSERT SALINE LOCK 1 01/14/2012 documented in this encounter Additional Health Concerns Infection Onset Date Last Indicated Resolved Time 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 Care Teams Roller Coaster Designer Relationship Specialty Start Date End Date Yair Dow MD [address] [place] [address] PCP - General 06/03/11 03/08/12 documented as of this encounter
--- OUTSIDE RECORDS SUMMARY | 2024-06-10 18:48 | XMS_ITS | Encounter Summary ---
Author Organization [facility] Address [address] [place] [address] Care Team Providers Care Printed Circuit Board Panels Trimmer Name Role Phone Unavailable Primary Care Provider Unavailabl e Encounter Details Date Type Department Care Team (Late st Contact Info) Description 09/10/2007 14:50 EST Hospital Encounter [address] [address] Magda Tejada MD [address] [place] [id number] Social History Tobacco Use Types Packs/Day Years [...] Visit [facility] Rheumatology & Immunology - [address] [address] Micaela Hoff MD [address] [facility], [address] [place] [id number] documented as of this encounter Procedures Procedure Name Priority Date/Time Associated Diagnosis Comments [facility] VIABILITY 09/27/2007 13:44 EST documented in this encounter Results * [facility] VIABILITY (09/27/2007 13:44 EST) Anatomical Region Laterality Modality Other 09/27/2007 13:4 4 EST Narrative 04/23/2009 2:43 EDT bleeding first trimester inc cervix Please refer to the separate [facility] report. ??Contact Maternal Medicine. Procedure Note Robb Nam MD - 04/23/2009 bleeding first trimester inc cervix Please refer to the separate [facility] report. Contact Maternal Medicine. Robb Nam MD IMG [facility] ORDER HEATH documented in this encounter Visit Diagnoses Not on filedocumented in this encounter Additional Health Concerns Infection Onset Date Last Indicated Resolved Time 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
--- OUTSIDE RECORDS SUMMARY | 2024-06-10 18:48 | XMS_ITS | Encounter Summary ---
Author Organization [facility] Address [address] [place] [address] Care Team Providers Care Store Stock Help Name Role Phone Ladonna Maurer Primary Care Provider [phone] Reason for Visit * Reason Comments Goiter new patient Hypothyroidism Encounter Details Date Type Department Care Team (Latest Contact Info) Description 01/23/2011 14:40 EDT Office Visit [facility] Endocrinology - [address] [phone] Tawny Abrams MD [address] [place] [phone] Hypothyroid; Mena's thyroiditis Social History Tobacco Use Types [...] Sign Reading Time Taken Comments Blood Pressure 112/78 01/23/2011 1416 EDT Pulse 68 01/23/2011 1416 EDT Temperature - - Respiratory Rate - - Oxygen Saturation - - Inhaled Oxygen Concentration - - Weight 107.5 kg (237 lb) 01/23/2011 1416 EDT Height 169.3 cm (5' 6.65) 01/23/2011 1416 EDT Body Mass Index 37.51 01/23/2011 1416 EDT documented in this encounter Patient Instructions * Patient Instructions* Tawny Abrams - 01/23/2011 15:44 EDT Increase levothyroxine to 50 mcg 2 tabs per day = 100 mcg Recheck TSH 8 weeks after dose change No iodine pills needed documented in this encounter Progress Notes * Tawny Abrams - 01/23/2011 1541 EDT Increase levothyroxine to 50 mcg 2 tabs per day = 100 mcg Recheck TSH 8 weeks after dose change Dictated documented in this encounter Consult Notes * Tawny Abrams - 01/30/2011 1014 EDT DIVISION OF ENDOCRINOLOGY CONSULTATION - 01/23/2011 Ladonna Maurer [address] [phone] Dear Ms Maurer: I had the pleasure of seeing your patient, Teri Haro, in consultation in the endocrine clinic today, , for goiter and hypothyroidism. 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 [place]ach dose increment she had some improvement in symptoms but not sustained. She complains of immense fatigue and lack of energy, admits this may be due to her hectic schedule of parenting a 3-year-old, commuting 2 hours a day from her home to classes at [employer] and carrying a 30-hour per week workload for the [employer] [place] She admits that she has been eating poorly, spending a lot of time commuting in her car and getting little exercise. Reproductive History: She is 2, para 1, 1 stillborn, not currently , or . Social History: She is , both a student and employee as described above. Nonsmoker. Problem List: Hypothyroidism, obesity, obstructive sleep apnea, Mena's thyroiditis and goiter. Allergies: None. Medications: Levothyroxine 62 mcg per day. Vitamin D 2000 units. Nexium 40 mg. Nasonex 50 mcg spray. Mirena IUD. Family History: Significant for several first and second-degree female relatives with hypothyroidism. She denies difficulty swallowing, neck pressure, neck pain or a sense of neck fullness. Other than fatigue her review of systems is negative for heat or cold intolerance, change in bowel habits, recent weight gain or loss, skin or hair changes. She has amenorrhea due to the IUD placement over 2 years ago. Review of systems also significant for palpitations, intermittent rapid heartbeat, no chest pain or syncope, no shortness of breath. ROS otherwise negative on ten points. Objective: She is 237 pounds, 66-1/2 inches, 107.5 kilograms. BP 112/78, pulse 68. A pleasant, young woman in no distress. She is not accompanied. Gait and stance are normal. She seems a cheerful, good eye contact, appropriate, alert and oriented x3 and well groomed. Skin: She has multiple tattoos on her forearms and anterior chest, some facial acne and oily skin, no alopecia. No hirsutism, no cushingoid features. She has no hand tremor. No lid lag or stare. Neck appears somewhat [...] Clear. Breast, pelvic and rectal exam: Deferred. Procedure: Thyroid ultrasound, indication to assess goiter, rule out nodules as the patient was referred for a huge hard goiter. Utilizing a portable SonoSite system, a B-mode ultrasound exam was performed of the thyroid and neck structures. The right lobe of the thyroid gland [...] increase in blood flow, nodules or cysts. Impression: 1. Thyroid gland has ultrasonographic appearance of Mena's thyroiditis with a heterogenous echotexture and scarring but is not enlarged; and there are no worrisome features such as microcalcifications, cysts or nodules. 2. Hypothyroidism. I believe her thyroid hormone replacement dose is rather modest given her weightand would recommend increasing it to 100 mcg per day, repeating a TSH and free T4 in 8 to 12 weeks with the goal of having TSH between 1 and 3. The proper way to take thyroid hormone was reviewed with the patient. 3. Obesity. She has been working with the bariatric surgery clinic but apparently this is on hold for now. Thank you for your kind referral. Sincerely, Electronically Signed by Tawny Abrams MD 01/30/2011 10:14 Tawny Abrams MD - Tawny Abrams MD - [facility] Job ID: SM Doc ID: [id number] Ext Doc ID: [id number] cc: AUSTIN Silva documented in this encounter Miscellaneous Notes * Scanned Note-Null - Inpatient, Physician - 01/30/2011 1145 EDTAssociated Order(s): RADIOLOGY - SCANNED documented in this encounter Plan of Treatment Upcoming Encounters Date Type Department Care Team (Late st Contact Info) Description 12/29/2024 10:20 EST Office Visit [facility] Rheumatology & Immunology - [address] [address] Micaela Hoff MD [address] [place] [address], [address] [place] [address] Scheduled Orders Name Type Priority Associated Diagnoses Orde r Schedule ENDOCRINE CLINIC US THYROID Imaging Routine Mena's thyroiditis Hypothyroid Ordered: 01/23/2011 documented as of this encounter Procedures Procedure Name Priority Date/Time Associated Diagnosis Comments RADIOLOGY - SCANNED 01/30/2011 1 1:45 EDT documented in this encounter Results * RADIOLOGY - SCANNED (01/30/2011 11:45 EDT) Anatomical Region Laterality Modality Other 01/30/2011 11:4 5 EDT Narrative Procedure Note Inpatient, Physician - 01/30/2011 11:45 EDT Physician Inpatient IMG OTHER IMAGING ORDERABLES documented in this encounter Visit Diagnoses Diagnosis Hypothyroid Unspecified hypothyroidism Mena's thyroiditis Chronic lymphocytic thyroiditis documented in this encounter Discontinued Medications Medication Sig Discontinue Reason Start Date End Da te levothyroxine (SYNTHROID) 50 mcg tablet Take 50 mcg by mouth daily. Dose adjustment 01/23/2011 documented as of this encounter Historical Medications * This list may reflect changes made after this encounter. Medication Sig Dispensed Refills Start Date End Date Cholecalciferol, Vitamin D3, (VITAMIN D) 2,000 unit Cap Take by mouth daily. 01/23/2011 012 levothyroxine (SYNTHROID) 25 mcg tablet Take 100 mcg by mouth daily. 06/12/2011 added in this encounter Care Teams Store Stock Help Relationship Specialty Start Date End Date Ladonna Maurer PA [address] [place] [address] PCP - General 05/20/10 06/02/11 documented as of this encounter
--- OUTSIDE RECORDS SUMMARY | 2024-06-10 18:48 | XMS_ITS | Encounter Summary ---
Author Organization [facility] Address [address] [place] [address] Care Team Providers Care Scientific Helper Name Role Phone Unavailable Primary Care Provider Unavailabl e Encounter Details Date Type Department Care Team (Latest Contact Info) Description 11/11/2007 13:46 EST Hospital Encounter [address] [address] Kenton Parrish MD Discharge Disposition: Auto Discharge Social History Tobacco Use Types Packs/Day Years Used Date Smoking Tobacco: Never Assessed Sex and Gender Information Value Date Recorded Sex Assigned at Not on file Gender Identity Not on file Sexual Orientation Not on file documented as of this encounter Discharge Disposition Disposition Code Departure Means Destination Auto Discharge documented in this encounter Plan of Treatment Upcoming Encounters Date Type Department Care Team (Late st Contact Info) Description 12/29/2024 10:20 EST Office Visit [facility] Rheumatology & Immunology - [address] [phone] Micaela Hoff MD [address] [facility], [address] [place] [phone] documented as of this encounter Visit Diagnoses Not on filedocumented in this encounter
--- OUTSIDE RECORDS SUMMARY | 2024-06-10 18:48 | XMS_ITS | Encounter Summary ---
Author Organization [facility] Address [address] [place] [address] Care Team Providers Care Tube Bending Machine Operator Name Role Phone Unavailable Primary Care Provider Unavailabl e Encounter Details Date Type Department Care Team (Late st Contact Info) Description 09/03/2007 Before PRISM Converted Visit (Maple) [facility] - Maple conversion [address] [place] [address] Magda Tejada MD [address] [place] [address] Social History Tobacco Use Types Packs/Day Years Used Date Smoking Tobacco: Never Assessed Sex and Gender Information Value Date Recorded Sex Assigned at Not on file Gender Identity Not on file Sexual Orientation Not on file documented as of this encounter Plan of Treatment Upcoming Encounters Date Type Department Care Team (Late st Contact Info) Description 12/29/2024 10:20 EST Office Visit [facility] Rheumatology & Immunology - [facility] [address] [place] [address] Micaela Hoff MD [address] [facility], [address] [place] [phone] documented as of this encounter Visit Diagnoses * Evaluation - Magda Tejada MD - 09/12/2009 1037 EST DIVISION OF MATERNAL MEDICINE NEW PATIENT EVALUATION - 09/03/2007 SUBJECTIVE Teri Cano is a 27-year-old G2, P0-1-0-0, currently at 6 weeks and 3 days' gestational age by herlast menstrual period. She presents here today to the maternal medicine clinic to initiate care for her new . Her past obstetrical history is complicated by the fact that in July 2003 she had premature rupture of membranes at approximately 19 weeks and 5 days' gestational age. A rescue cerclage was attempted; however, it was noted that she had complete dilatation and the procedure was abandoned. She had subsequent delivery via normal spontaneous vaginal delivery. Per the patient, she states that there was no evidence of chorioamnionitis. After evaluation by maternal medicine , the patient had a sonohysterogram that indicated a uterine septum. In September 2004, she had a resection completed with a followup sonohysterogram confirming 85% resection of the septum. She then was seen by maternal medicine for a prepregnancy consultation afterwards, and at that time a discussion was had withher regarding future interventions for future pregnancies. PAST MEDICAL HISTORY 1. Above. 2. Depression, for which she takes Lexapro. PAST SURGICAL HISTORY Hysteroscopic resection of the uterine septum. MEDICATIONS 1. Lexapro 10 mg daily. 2. vitamins. SOCIAL HISTORY She stopped smoking on May 14, 2007. She denies alcohol or drug use. 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 ALLERGIES No known drug allergies. FAMILY HISTORY No mental retardation. No defects. COST ESTIMATING ENGINEER HISTORY She does have a history of dysplasia with LEEP (loop electrosurgical excision procedure) performed in November 2002. Since that time, she has had normal Pap smears. She denies any sexually transmitteddiseases. OB HISTORY As above. REVIEW OF SYSTEMS Negative other than anxiety. OBJECTIVE On physical exam, blood pressure is 120/68. She weighs 205.6 pounds. Height is 66 inches. This gives her a BMI of 33. HEENT exam is within normal limits. Neck: No thyromegaly. No thyroid nodules. Lungs: Clear to auscultation bilaterally in all acevedo. Heart: Regular rate and rhythm. No murmurs, rubs, or gallops. Lymph Nodes: No lymphadenopathy. Abdomen: Soft, nontender, nondistended, and obese. Ex tremities: No clubbing, cyanosis, or edema. She has multiple tattoos on all extremities as well as torso. Pelvic Examination: Normal external female genitalia with normal Bartholin, Beltrami, and Rony glands. The cervix is noted to be very posterior and appearswithout lesions. Gonorrhea and chlamydia cultures were performed as well as Pap smear. The cervix on bimanual examination is noted to be closed with the posterior lip approximately 2 cm and the anterior lip approximately 1.5 cm in length.The uterine size is approximately 6-week size. ASSESSMENT AND PLAN Wwfpqs-awu-ened-old G2, P0-1-0-0 with a history of delivery at 20 weeks' gestational age with subsequent uterine septum discovery as well as resection, here for initiation of care. 1. Currently, the patient is approximately 6 weeks and 3 days by her last menstrual period. We discussed performing an ultrasound in approximately one week for viability as well as dating purposes. 2. The patient is obviously at a higher risk of delivery, given the outcome of her first . However, we discussed that one of the potential etiologies of the delivery had beendiscovered and subsequently remedied. We do believe that her baseline risk for labor is increased;however, it is impossible to know just how high risk she is for repeat delivery. Given the fact that at her consultation there had been much discussion regarding cerclage in subsequent pregnancies, we once again discussed cerclage intervention with the patient. We discussedthe fact that literature is very mixed on cerclage benefit and that there are certain risks associated with it as well. The patient does have some friends that she has met through a loss support group that have had cerclages with subsequent pregnancies that have gone to full term. She states that she had been thinking favorably regarding cerclage at this time. 3. We did discuss with the patient the most recent trials concerning progesterone and that they have been able to reduce the recurrence of delivery. Additionally, the study performed by the [facility] did take into account patients that had uterine anomalies. We discussed the fact that progesterone supplementation for this patient may be an alternative to cerclage. 4. Finally, we discussed a potential plan of performing cervical length at approximately 16 weeks' gestational age. At that time, depending on what her cervical length was, we could decide on intervention. Should her cervical length be shortened, she would qualify for cerclage or progesterone. We plan to discuss this patient at our weekly group maternal medicine conference, and the patient will also talk about these possible interventions with her partner and decide in approximately one week the direction that she would like to go in. 5. We discussed with the patient diagnosis in the form of noninvasive as well as invasive testing. Currently, she declines all type of diagnostic testing and states that it would not make any difference in the outcome of her . 6. Pap smear and cultures were performed today. 7. She will return to clinic in one week. ATTENDING ADDENDUM: I met with Ms Cano along with Dr. Tejada and agree with the recommendations as nicely outlined above. Edited and Signed by Shanique Eagle MD 10/08/2007 15:55 Reviewed by Magda Tejada MD 09/14/2007 12:01 Magda Teajda MD Shanique Eagle MD - Magda Tejada MD - [facility] Job ID: [id number] Doc ID: [id number] cc: documented in this encounter
--- OUTSIDE RECORDS SUMMARY | 2024-06-10 18:48 | XMS_ITS | Encounter Summary ---
Author Organization [facility] Address [address] [place] [address] Care Team Providers Care Putty Glazer Name Role Phone Ladonna Maurer Primary Care Provider [phone] Reason for Referral * (Routine) - Closed Specialty Diagnoses / Procedures Referred By Contac t Referred To Contact Diagnoses Hypothyroid Morbid obesity (HCC-CMS) TAMMY (obstructive sleep apnea) Procedures HEMOGLOBIN A1C Kristine Escamilla, HUANG [address] [place] [phone] Referral ID Status Reason Start Date Expiration Date Visits Re quested Visits Authorized [id number] Closed 11/27/2010 1 1 * (Routine) - Closed Specialty Diagnoses / Procedures Referred By Contac t Referred To Contact Diagnoses Hypothyroid Morbid obesity (HCC-CMS) TAMMY (obstructive sleep apnea) Procedures VITAMIN D (25,OH) Kristine Escamilla, HUANG [address] [place] [phone] Referral ID Status Reason Start Date Expiration Date Visits Re quested Visits Authorized [id number] Closed 11/27/2010 1 1 * (Routine) - Closed Specialty Diagnoses / Procedures Referred By Contac t Referred To Contact Diagnoses Hypothyroid Morbid obesity (HCC-CMS) TAMMY (obstructive sleep apnea) Procedures LIVER FUNCTION TESTS Kristine Escamilla APRN [address] [place] [phone] Referral ID Status Reason Start Date Expiration Date Visits Re quested Visits Authorized [id number] Closed 11/27/2010 1 1 * (Routine) - Closed Specialty Diagnoses / Procedures Referred By Contac t Referred To Contact Diagnoses Hypothyroid Morbid obesity (HCC-CMS) TAMMY (obstructive sleep apnea) Procedures HEMAGRAM Kristine Escamilla VOICE STUDIES DIRECTOR [address] [place] [phone] Referral ID Status Reason Start Date Expiration Date Visits Re quested Visits Authorized [id number] Closed 11/27/2010 1 1 * (Routine) - Closed Specialty Diagnoses / Procedures Referred By Contac t Referred To Contact Diagnoses Hypothyroid Morbid obesity (HCC-CMS) TAMMY (obstructive sleep apnea) Procedures [facility] Kristnie Escamilla, VOICE STUDIES DIRECTOR [address] [place] [phone] Referral ID Status Reason Start Date Expiration Date Visits Re quested Visits Authorized [id number] Closed 11/27/2010 1 1 Encounter Details Date Type Department Care Team (Latest Contact Info) Description 11/27/2010 11:51 EST - 11/27/2010 23:59 EST Hospital Encounter [address] [address] Kristine Escamilla, VOICE STUDIES DIRECTOR [address] [place] [phone] Hypothyroid; Morbid obesity (HCC-CMS); TAMMY (obstructive sleep apnea) Discharge Disposition: Home or Self Care Social [...] Sig Dispensed Refills Start Date End Date esomeprazole (NEXIUM) 40 mg capsule Take 40 mg by mouth every morning before breakfast. 07/14/2011 LEVONORGESTREL (MIRENA IU) by Intrauterine route. Every 5 years 10/13/2011 levothyroxine (SYNTHROID) 50 mcg tablet Take 50 mcg by mouth daily. 01/23/2011 mometasone (NASONEX) 50 mcg/Actuation nasal spray 2 Sprays by Nasal route daily. 02/06/2011 documented as of this encounter Discharge Disposition Disposition Code Departure Means Destination Home or Self Penitentiary documented in this encounter Miscellaneous Notes * Scanned Note-Null - Bar Roller, Scan - 10/15/2011 0903 EST documented in this encounter Plan of Treatment Upcoming Encounters Date Type Department Care Team (Late st Contact Info) Description 12/29/2024 10:20 EST Office Visit [facility] Rheumatology & Immunology - [address] [address] Micaela Hoff MD [address] [place] [address], [address] [place] [phone] documented as of this encounter Procedures Procedure Name Priority Date/Time Associated Diagnosis Comments VITAMIN D (25,[place]) Routine 11/27/2010 12: 14 EST Hypothyroid Morbid obesity (HCC-CMS) TAMMY (obstructive sleep apnea) COMPLETE BLOOD COUNT Routine 11/27/2010 12:14 EST Hypothyroid Morbid obesity (HCC-CMS) TAMMY (obstructive sleep apnea) HEMOGLOBIN A1C Routine 11/27/2010 12:14 EST Hypothyroid Morbid obesity (HCC-CMS) TAMMY (obstructive sleep apnea) CREATININE Routine 11/27/2010 12:14 EST Hypothyroid Morbid obesity (HCC-CMS) TAMMY (obstructive sleep apnea) HEPATIC FUNCTION PANEL (ALB,ALK PHOS,ALT,AST,DBIL,TO T ADAM,TOT PROT) Routine 11/27/2010 12:14 EST Hypothyroid Morbid obesity (HCC-CMS) TAMMY (obstructive sleep apnea) documented in this encounter Results * HEMOGLOBIN A1C (11/27/2010 12:14 EST) Pathologist [facility] Hemoglobin A1C 5.8 % [facility] Comment: Reference Range: <5.7% Normal 5.7-6.4% Increased risk for diabetes =>6.5% Diagnostic for diabetes (if confirmed) ?? The A1c goal for non adults in general is <7%. ?? The A1c goal for selected patients may be significantly lower than 7% if this can be achieved without significant hypoglycemia or other adverse effects of treatment. Est Avg Glucose 120 mg/dl [facility] Comment:eAG represents the A 1c result expressed as average glucose in mg/dl. Blood specimen (specimen) 11/27/2010 12:14 EST 11/27/2010 12:16 EST Kristine Escamilla APRN CHEMISTRY & BLOOD GAS ORDERABLES Performing Organization Address [facility] de Phone Number [facility] [address] [place] [address] * VITAMIN D (25,OH) (11/27/2010 12:14 EST) Pathologist [facility] 25OH Vitamin D Tot 14.8 ng/ml [facility] Comment: Reference Range: <10 ng/ml: Deficient 10-30 ng/ml: Insufficient 30-100 ng/ml: Sufficient >100 ng/ml: Toxic Blood specimen (specimen) 11/27/2010 12:14 EST 11/27/2010 12:16 EST Kristine Escamilla APRN CHEMISTRY & BLOOD GAS ORDERABLES Performing Organization Address [facility] Co de Phone Number [facility] [address] [place] [address] * LIVER FUNCTION TESTS (11/27/2010 12:14 EST) Albumin 4.5 3.4 - 4.9 g/dl [facility] Total Protein 7.4 6.5 - 8.3 g/dl [facility] Total Alkaline Phosphatase 52 38 - 126 U/L [facility] ALT 41 9 - 52 U/L [facility] AST 26 15 - 46 U/L [facility] Unconjugated Bilirubin 0.3 0.1 - 1.1 mg/dl [facility] Conjugated Bilirubin 0.0 0.0 - 0.3 mg/dl [facility] Bilirubin, Total <0.5 0.2 - 1.3 mg/dl [facility] Blood specimen (specimen) 11/27/2010 12:14 EST 11/27/2010 12:16 EST Kristine Escamilla APRN CHEMISTRY & BLOOD GAS ORDERABLES Performing Organization Address City/State/[facility] Co de Phone Number [facility] [address] [place] [address] * HEMAGRAM (11/27/2010 12:14 EST) WBC 8.48 4.0 - 12.4 K/cmm [facility] RBC 4.78 3.86 - 5.04 M/cmm [facility] Hemoglobin 14.0 11.6 - 15.2 gm/dl [facility] HCT 39.5 34.9 - 44.4 % [facility] MCV 83 81 - 98 fl [facility] MCH 29.3 26.7 - 33.3 pg [facility] MCHC 35.4 32.1 - 35.9 gm/dl [facility] PLT 300 141 - 320 K/cmm [facility] RDW-CV 13.1 11.7 - 14.6 % [facility] Blood specimen (specimen) 11/27/2010 12:14 EST 11/27/2010 12:16 EST Kristine S Andi VOICE STUDIES DIRECTOR HEMATOLOGY & PF4 ORDERABLES Performing Organization Address City/[facility]/ZIP Co de Phone Number [facility] [address] [place] [address] * CREATININE (11/27/2010 12:14 EST) Creatinine 0.86 0.7 - 1.5 mg/dl [facility] GFR, Calculated >60 ml/min/1.7 3m2 [facility] Blood specimen (specimen) 11/27/2010 12:14 EST 11/27/2010 12:16 EST Kristine Bismark Andi VOICE STUDIES DIRECTOR CHEMISTRY & BLOOD GAS ORDERABLES Performing Organization Address [facility] Co de Phone Number [facility] [address] [place] [address] documented in this encounter Visit Diagnoses Diagnosis Hypothyroid Unspecified hypothyroidism Morbid obesity ([facility]) Morbid obesity TAMMY (obstructive sleep apnea) Obstructive sleep apnea (adult) (pediatric) documented in this encounter Care Teams Putty Glazer Relationship Specialty Start Date End Date Ladonna Maurer PA [address] [place] [id number] PCP - General 05/20/10 06/02/11 documented as of this encounter
--- OUTSIDE RECORDS SUMMARY | 2024-06-10 18:48 | XMS_ITS | Encounter Summary ---
Author Organization [facility] Address [address] [place] [address] Care Team Providers Care Tool Builder Name Role Phone Ladonna Maurer Primary Care Provider [phone] Encounter Details Date Type Department Care Team (Late st Contact Info) Description 11/01/2007 Results Only [facility] Obstetrics & Midwifery - [address] [address] Kenton Parrish MD Social History Tobacco Use Types Packs/Day [...] Office Visit [facility] Rheumatology & Immunology - [address] [phone] Micaela Hoff MD [address] [place] [address], Level 5 [place] [phone] documented as of this encounter Procedures Procedure Name Priority Date/Time Associated Diagnosis Comments GLUCOSE-1HR GESTATIONAL SCREEN Routine 11/01/2007 13:23 EST HIV 1/2 ANTIGEN AND ANTIBODY, 4TH GENERATION Routine 11/01/2007 13:23 EST documented in this encounter Results * HIV ANTIBODY (11/01/2007 13:23 EST) HIV 1/2 Antibody NONREACT. NR [facility] 11/01/2007 13:2 3 EST 11/01/2007 13:25 EST Kenton Parrish MD IMMUNOLOGY AND SEROL OGY ORDERABLES Performing Organization Address [facility] Co de Phone Number [facility] [address] [place] [address] * GLUCOSE-1HR GESTATIONAL SCREEN (11/01/2007 13:23 EST) Glucose-1hr Gest Scn 106 50 - 135 mg/dl [facility] Comment: A one hour glucose greater than or equal to 135 mg/dl should be further evaluated with a formal three hour glucose tolerance test. Glucose Dose 50 g [facility] 11/01/2007 13:2 3 EST 11/01/2007 13:25 EST Kenton Parrish MD PACKAGES & DNA PROBE ORDERABLES Performing Organization Address [facility] de Phone Number [facility] [address] [place] [address] documented in this encounter Visit Diagnoses Not on filedocumented in this encounter Care Teams Tool Builder Relationship Specialty Start Date End Date Ladonna Maurer PA [address] [place] [address] PCP - General 05/20/10 06/02/11 documented as of this encounter
--- OUTSIDE RECORDS SUMMARY | 2024-06-10 18:48 | XMS_ITS | Encounter Summary ---
Author Organization [facility] Address [address] [place] [address] Care Team Providers Care Real Estate Agent/Broker Name Role Phone Unavailable Primary Care Provider Unavailabl e Encounter Details Date Type Department Care Team (Latest Contact Info) Description 06/01/2008 15:43 EDT Hospital Encounter [address] [address] Shanique Eagle MD [address] [phone] Discharge Disposition: Auto Discharge Social History Tobacco [...] Info) Description 12/29/2024 10:20 EST Office Visit [facility] Rheumatology & Immunology - [address] 577371 Micaela Hoff MD [address] [place] [address], Level [address] [place] [phone] documented as of this encounter Visit Diagnoses Not on filedocumented in this encounter
--- OUTSIDE RECORDS SUMMARY | 2024-06-10 18:48 | XMS_ITS | Encounter Summary ---
Author Organization [facility] Address [address] [place] [address] Care Team Providers Care Email Designer Name Role Phone Unavailable Primary Care Provider Unavailabl e Encounter Details Date Type Department Care Team (Latest Contact Info) Description 03/13/2008 15:17 EDT Hospital Encounter [address] [address] Linda Bustillos MD Discharge Disposition: Auto Discharge Social History [...] Description 12/29/2024 10:20 EST Office Visit [facility] Rheumatology & Immunology - [facility] [address] [place], [place] [address] Micaela Hoff MD [address] [facility], [address] [place] [address] documented as of this encounter Visit Diagnoses Not on filedocumented in this encounter
--- OUTSIDE RECORDS SUMMARY | 2024-06-10 18:48 | XMS_ITS | Encounter Summary ---
Author Organization [facility] Address [address] [place] [address] Care Team Providers Care Lime Kiln Operator Name Role Phone Unavailable Primary Care Provider Unavailabl e Encounter Details Date Type Department Care Team (Late st Contact Info) Description 11/16/2007 12:59 EST Hospital Encounter [address] [address] Magda Tejada MD [address] [place] [address] [phone] Makeda Lucas MD [address] [place] [address], [facility] [address] [place] [phone] Discharge Disposition: Auto Discharge Social History Tobacco [...] [facility] Rheumatology & Immunology [address] 644491 Micaela Hoff MD [address] [place] [address] [address] [place] [phone] documented as of this encounter Procedures Procedure Name Priority Date/Time Associated Diagnosis Comments [facility] LIMITED EXAM 11/16/2007 14:0 1 EST documented in this encounter Results * [facility] LIMITED EXAM (11/16/2007 14:01 EST) Anatomical Region Laterality Modality Other 11/16/2007 14:0 1 EST Narrative 04/23/2009 3:47 EDT LIMITED,[id number] AND CERVICAL LENGTH/EVAL FOR 1ST AND 2ND TRIMESTER VB Please refer to the separate [facility] report. ??Contact Maternal Medicine. Procedure Note Robb Nam MD - 04/23/2009 LIMITED,[id number] AND CERVICAL LENGTH/EVAL FOR 1ST AND 2ND TRIMESTER VB Please refer to the separate [facility] report. Contact Maternal Medicine. Magda Tejada MD IMG [facility] ORDERABLE S documented in this encounter Visit Diagnoses Not on filedocumented in this encounter
--- OUTSIDE RECORDS SUMMARY | 2024-06-10 18:48 | XMS_ITS | Encounter Summary ---
Author Organization [facility] Address [address] [place] [address] Care Team Providers Care Elementary Assistant Principal Name Role Phone Unavailable Primary Care Provider Unavailabl e Encounter Details Date Type Department Care Team (Late st Contact Info) Description 06/08/2008 13:53 EDT Hospital Encounter [address] [address] Daily, [address] [address] Social History Tobacco Use Types Packs/Day Years [...] [facility] Immunology - [address] 725[address] Micaela Hoff MD 111 [facility], [address] 5 [place] [phone] documented as of this encounter Procedures Procedure Name Priority Date/Time Associated Diagnosis Comments CYTOPATHOLOGY Routine 12/18/2008 0:00 EST documented in this encounter Results * CYTOPATHOLOGY (12/18/2008 0:00 EST) Pathology Report: CYTOPATHOLOGY REPORT ? Reports generated via electronic interface contain original data; ? however they are lacking the format of the original report. ? Caution should be taken when reading/interpreti ng unformatted reports. ? Name: ? TERI LAKE ? Accession #: ? [id number] ? : ? 1980 (Age: 28) ??F ?Collect Date: ? 12/18/2008 ? Location: ? [facility] ? Receive Date: ? 12/20/2008 ? Provider: ?REGGIE CALLAHAN MD ? Copy to: ? Specimen/Source: ?Pap Test, Cervix/Endocervix, ThinPrep Imaging System ? with manual evaluation ? Last Menstrual Period: ? 1/18/09 ? Hormonal/Contracep tive Status: ? Intrauterine device: paragard ? Previous Gynecologic Pathology: ? Yes: abnormal pap 2003 ? Treatment History: ? LEEP ? Other: ? HPVA - HPV testing requested if ASC-US on the current ThinPrep Pap test. ? SPECIMEN ADEQUACY ? Satisfactory for Evaluation ? - transformation zone component present ? GENERAL CATEGORIZATION ? Negative for Intraepithelial Lesion or Malignancy ? Document reviewed and electronically signed by: ? Christi Yuen, [place](ASCP) ? Report Date: ??12/26/2008 09:28 ? End of Report ? 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
--- OUTSIDE RECORDS SUMMARY | 2024-06-10 18:48 | XMS_ITS | Encounter Summary ---
Author Organization [facility] Address [address] [place] [address] Care Team Providers Care Geographic Information Scientist Name Role Phone Unavailable Primary Care Provider Unavailabl e Encounter Details Date Type Department Care Team (Latest Contact Info) Description 04/03/2008 14:22 EDT Hospital Encounter [address] [address] Linda Bustillos MD Discharge Disposition: Auto Discharge [...] 12/29/2024 10:20 EST Office Visit [facility] Rheumatology & Immunology - [facility] [address] [place], [place] [address] Micaela Hoff MD 111 [facility], Level 5 [place] [address] documented as of this encounter Visit Diagnoses Not on filedocumented in this encounter
--- OUTSIDE RECORDS SUMMARY | 2024-06-10 18:48 | XMS_ITS | Encounter Summary ---
Author Organization [facility] Address [address] [place] [address] Care Team Providers Care Per Diem Registered Nurse Name Role Phone Unavailable Primary Care Provider Unavailabl e Encounter Details Date Type Department Care Team (Late st Contact Info) Description 12/14/2007 13:42 EST Hospital Encounter [address] [address] Magda Tejada MD [address] [place] [address] Makeda Lucas MD [address] [place] [address], Level [address] [place] [address] Social History Tobacco Use Types Packs/Day Years [...] [facility] Rheumatology & Immunology - [address] [address] Micaela Hoff MD [address] [facility], [address] [place] [address] documented as of this encounter Procedures Procedure Name Priority Date/Time Associated Diagnosis Comments SENIOR CARE DETAILED 12/14/2007 15:59 EST documented in this encounter Results * SENIOR CARE DETAILED (12/14/2007 15:59 EST) Anatomical Region Laterality Modality Other 12/14/2007 15:5 9 EST Narrative 04/23/2009 3:55 EDT DETAILED,[id number] AND CERVICAL LENGTH/1ST AND 2ND TRIMESTER BLEEDING,H/O SEPTUM WITH REPAIR,H/O 20 WK LOSS Please refer to the separate [facility] report. ??Contact Maternal Medicine. Procedure Note Shanique Eagle MD - 04/23/2009 DETAILED,[id number] AND CERVICAL LENGTH/1ST AND 2ND TRIMESTER BLEEDING,H/O SEPTUM WITH REPAIR,H/O 20 WK LOSS Please refer to the separate [facility] report. Contact Maternal Medicine. Magda Tejada MD IMG [facility] ORDERABLE S documented in this encounter Visit Diagnoses Not on filedocumented in this encounter Additional Health Concerns Infection Onset Date Last Indicated Resolved Time 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
--- OUTSIDE RECORDS SUMMARY | 2024-06-10 18:48 | XMS_ITS | Encounter Summary ---
Author Organization [facility] Address [address] [place] [address] Care Team Providers Care Control Integration Engineer Name Role Phone Ladonna Maurer Primary Care Provider Encounter Details Date Type Department Care Team (Late st Contact Info) Description 10/09/2010 Results Only [facility] Laboratory Services - [facility] ([facility]) [address] [place], [place] [address] Ladonna Maurer PA [address] [place], [place] [phone] Social History Tobacco Use Types Packs/Day Years Used Date Smoking Tobacco: Never Assessed Sex and Gender Information Value Date Recorded Sex Assigned at Not on file Gender Identity Not on file Sexual Orientation Not on file documented as of this encounter Plan of Treatment Upcoming Encounters Date Type Department Care Team (Late Contact Info) Description 12/29/2024 10:20 EST Office Visit [facility] Rheumatology & Immunology - [facility] [address] [place], [place] [address] Micaela Hoff MD 111 [facility], Level [address] [place] [address] documented as of this encounter Procedures Procedure Name Priority Date/Time Associated Diagnosis Comments CYTOPATHOLOGY Routine 10/09/2010 0:00 EST documented in this encounter Results * CYTOPATHOLOGY (10/09/2010 0:00 EST) Pathology Report: CYTOPATHOLOGY REPORT ? Reports generated via electronic interface contain original data; ? however they are lacking the format of the original report. ? Caution should be taken when reading/interpreti ng unformatted reports. ? Name: ? CROWE, TERI R ? Accession #: ? [id number] ? : ? 1980 (Age: 30) ??F ?Collect Date: ? 10/09/2010 ? Location: ? [facility] ? Receive Date: ? 10/10/2010 ? Provider: ?LADONNA AVILA ? Copy to: ? Specimen/Source: ?Pap Test, Cervix/Endocervix, ThinPrep Imaging System ? with manual evaluation ? Last Menstrual Period: ? unknwon ? Hormonal/Contracep tive Status: ? Intrauterine device: mirena ? Other: ? Additional clinical information: difficult to tip cervix ? SPECIMEN ADEQUACY ? Satisfactory for Evaluation ? - transformation zone component absent ? GENERAL CATEGORIZATION ? Negative for Intraepithelial Lesion or Malignancy ? Document reviewed and electronically signed by: ? Beverly [place], [place](ASCP) ? Report Date: ??10/15/2010 14:01 ? End of Report ? [facility] 10/09/2010 10/10/2010 Ladonna AVILA PATHOLOGY ORDERABLES [facility] [address] [place] [address] documented in this encounter Visit Diagnoses Not on filedocumented in this encounter Care Teams Control Integration Engineer Relationship Specialty Start Date End Date Ladonna Maurer PA [address] [place] [address] PCP - General 05/20/10 06/02/11 documented as of this encounter
--- OUTSIDE RECORDS SUMMARY | 2024-06-10 18:48 | XMS_ITS | Encounter Summary ---
Author Organization [facility] Address [address] [place] [address] Care Team Providers Care Tandem Mill Roller Name Role Phone Unavailable Primary Care Provider Unavailabl e Encounter Details Date Type Department Care Team (Late st Contact Info) Description 03/28/2008 15:53 EDT Hospital Encounter [address] [address] Makeda Lucas MD [address] [place] [address] 4 [place] [phone] Discharge Disposition: Auto Discharge Social History Tobacco [...] Info) Description 12/29/2024 10:20 EST Office Visit [facility] Rheumatology & Immunology [address] [address] Micaela Hoff MD [address] [place] [address] 5 [place] [phone] documented as of this encounter Visit Diagnoses Not on filedocumented in this encounter
--- OUTSIDE RECORDS SUMMARY | 2024-06-10 18:48 | XMS_ITS | Encounter Summary ---
Author Organization [facility] Address [address] [place] [address] Care Team Providers Care Instructional Design Consultant Name Role Phone Unavailable Primary Care Provider Unavailabl e Encounter Details Date Type Department Care Team (Late st Contact Info) Description 01/25/2008 15:28 EDT Hospital Encounter [address] [address] Makeda Lucas MD [address] [place] [address], [facility] 4 [place] [phone] Social History Tobacco Use Types Packs/Day Years [...] [facility] Rheumatology & Immunology [address] [phone] Micaela Hoff MD [address] [place] [address], [facility] [address] [place] [address] documented as of this encounter Visit Diagnoses Not on filedocumented in this encounter Additional Health Concerns Infection Onset Date Last Indicated Resolved Time 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
--- OUTSIDE RECORDS SUMMARY | 2024-06-10 18:48 | XMS_ITS | Encounter Summary ---
Author Organization [facility] Address [address] [place] [address] Care Team Providers Care Box Stapler Name Role Phone Unavailable Primary Care Provider Unavailabl e Encounter Details Date Type Department Care Team (Latest Contact Info) Description 10/31/2007 10:15 EST - 10/31/2007 11:59 EST Hospital Encounter [facility] Emergency Department - [address] [address] Emergency, MD Fede Discharge Disposition: Home or Self Care Social [...] Description 12/29/2024 10:20 EST Office Visit [facility] Rheumatology & Immunology - [address] [phone] Micaela Hoff MD [address] [place] [address], Level [address] [place] [phone] documented as of this encounter Visit Diagnoses Not on filedocumented in this encounter
--- OUTSIDE RECORDS SUMMARY | 2024-06-10 18:48 | XMS_ITS | Encounter Summary ---
Author Organization [facility] Address [address] [place] [address] Care Team Providers Care Barrer And Tacker Name Role Phone Unavailable Primary Care Provider Unavailabl e Encounter Details Date Type Department Care Team (Late st Contact Info) Description 01/11/2008 13:52 EDT Hospital Encounter [address] [address] Makeda Lucas MD [address] [place] [address] 4 [place] [phone] Discharge Disposition: Auto Discharge Social History Tobacco [...] Description 12/29/2024 10:20 EST Office Visit [facility] Rheumatology & Immunology [address] [phone] Micaela Hoff MD [address] [place] [address] 5 [place] [phone] documented as of this encounter Visit Diagnoses Not on filedocumented in this encounter
--- OUTSIDE RECORDS SUMMARY | 2024-06-10 18:48 | XMS_ITS | Encounter Summary ---
Author Organization [facility] Address [address] [place] [address] Care Team Providers Care Canal Structure Operator Name Role Phone Unavailable Primary Care Provider Unavailabl e Encounter Details Date Type Department Care Team (Latest Contact Info) Description 01/28/2008 18:00 EDT Hospital Encounter [facility] [address] [place] [address] Linda Bustillos MD Discharge Disposition: Home or Self Care [...] Info) Description 12/29/2024 10:20 EST Office Visit [facility] Rheumatology & Immunology - [facility] [address] [place], [place] [address] Micaela Hoff MD 111 [facility], Level [address] [place] [phone] documented as of this encounter Visit Diagnoses Not on filedocumented in this encounter
--- OUTSIDE RECORDS SUMMARY | 2024-06-10 18:48 | XMS_ITS | Encounter Summary ---
Author Organization [facility] Address [address] [place] [address] Care Team Providers Care Probate Lawyer Name Role Phone Ladonna Maurer Primary Care Provider [phone] Encounter Details Date Type Department Care Team (Late st Contact Info) Description 12/14/2007 Results Only [facility] Obstetrics & Midwifery - [address] [phone] Makeda Lucas MD [address] [place] [address] 4 [place] [phone] Social History Tobacco Use Types Packs/Day Years [...] Visit [facility] Rheumatology & Immunology - [address] [phone] Micaela Hoff MD [address] [place] [address] 5 [place] [phone] documented as of this encounter Procedures Procedure Name Priority Date/Time Associated Diagnosis Comments THYROID CASCADE Routine 12/14/2007 17:26 EST documented in this encounter Results * THYROID CASCADE (12/14/2007 17:26 EST) TSH 2.40 0.35 - 5.00 uIU/mL [facility] Comment: TSH cascade is not recommended for patients in which pituitary or hypothalamic disorders are suspected. 12/14/2007 17:2 6 EST 12/14/2007 17:28 EST Makeda Lucas MD CHEMISTRY & BLOOD GA S ORDERABLES [facility] [address] [place] [address] documented in this encounter Visit Diagnoses Not on filedocumented in this encounter Care Teams Probate Lawyer Relationship Specialty Start Date End Date Ladonna Maurer PA [address] [place] [address] PCP - General 05/20/10 06/02/11 documented as of this encounter
--- OUTSIDE RECORDS SUMMARY | 2024-06-10 18:48 | XMS_ITS | Encounter Summary ---
Author Organization [facility] Address [address] [place] [address] Care Team Providers Care Jackscrew Man Name Role Phone Ladonna Maurer Primary Care Provider Reason for Visit * Reason Onset Date Comments Other 01/14/2011 no showed appt Encounter Details Date Type Department Care Team (Late st Contact Info) Description 01/14/2011 Telephone [facility] Bariatric Surgery - [place] [address] [place] [address] Kristine Escamilla, HUANG 61 [facility] [address] [address] Other (no showed appt) Social History Tobacco Use Types Packs/Day Years [...] encounter Miscellaneous Notes * Telephone Encounter - Pauline Diaz - 01/14/2011 0956 EDT Pt No Showed appt today with Kristine Escamilla GAS CHECK PAD MAKER. Call pt and left message with machine to call backand RS. documented in this encounter Plan of Treatment Upcoming Encounters Date Type Department Care Team (Late st Contact Info) Description 12/29/2024 10:20 EST Office Visit [facility] Rheumatology & Immunology - [address] 9457[address] Micaela Hoff MD 111 [facility], Level [address] [place] [phone] documented as of this encounter Visit Diagnoses Not on filedocumented in this encounter Care Teams Jackscrew Man Relationship Specialty Start Date End Date Ladonna Maurer PA [address] [place] [phone] PCP - General 05/20/10 06/02/11 documented as of this encounter
--- OUTSIDE RECORDS SUMMARY | 2024-06-10 18:48 | XMS_ITS | Encounter Summary ---
Author Organization [facility] Address [address] [place] [address] Care Team Providers Care Electronics Computer Mechanic Name Role Phone Ladonna Maurer Primary Care Provider [phone] Reason for Visit * Reason Comments Obesity #1 Encounter Details Date Type Department Care Team (Late st Contact Info) Description 08/01/2010 10:30 EDT Office Visit [facility] Bariatric Surgery - [address] [phone] Skyler Blanco MD [address] [place] [address] GERD (gastroesophageal reflux disease) (Primary Dx) Social History Tobacco Use Types Packs/Day Years Used Date Smoking Tobacco: Never Assessed Sex and Gender Information Value Date Recorded Sex Assigned at Not on file Gender Identity Not on file Sexual Orientation Not on file documented as of this encounter Last Filed Vital Signs Vital Sign Reading Time Taken Comments Blood Pressure 132/76 08/01/2010 1039 EDT Pulse 88 08/01/2010 1039 EDT Temperature - - Respiratory Rate - - Oxygen Saturation - - Inhaled Oxygen Concentration - - Weight 113.4 kg (250 lb) 08/01/2010 1039 EDT Height 169.3 cm (5' 6.65) 08/01/2010 1039 EDT Body Mass Index 39.56 08/01/2010 1039 EDT documented in this encounter Progress Notes * Bia Neal, RD - 08/01/2010 1125 EDT Bariatric Clinic - Initial Nutritional Assessment Evaluation for LapBand. Subjective: Patient is 30 y.o. female here for nutritional assessment for the above bariatric surgery. Nutrition/diet history: Family/other support system: spouse and young children Menu planning/shopping: patient Who does the cooking: patient and spouse Eating out frequency: Thursday all meals, most meals Prior weight loss attempts: Weight Watchers, Atkins diet, medications and 1500 lynette on own Patient's diet has not changed substantially since 3 day food record was kept. No Known Allergies Food Intolerances: none Current Exercise: planned exercise occasionally Reasons for limited exercise: lack of time-working, child and graduate school Objective: BP 132/76 Pulse 88 Ht 169.3 cm (66.65) Wt 113.399 kg (250 lb) Body mass index is 39.56 kg/(m^2). Excess BW: 115 lb 5% Wt Loss or Goal Wt: 12-13 lb Estimated Body Wt after Surgery: 200 lb Patient was counseled on keeping a food diary and pre-op weight loss expectations Patient has the following barriers to learning: none Assessment: Patient seems to be an appropriate candidate for bariatric surgery based on multiple failed weight loss attempts and BMI and comorbidities. Patient has already made significant positive changes in diet eats well, gets some exercise, knowledgeable about calories and nutrition. Patient needs to make the following changes prior to next visit keep food records,, start taking a daily vitamin, and plan meals during school days. Patient needs to make the following changes in exercise prior to next visit: increase time to 150 min pr week. Patient appears to comprehend requirements. Plan: Patient will be evaluated for changes in diet as above and maintain a food diary including foods consumed and calories calculated. Patient is expected to bring at least 1 week of food diaries to second visit for review. Patient will lose 1-2 pounds a week, or at least 12-13 lb by day of surgery * Skyler Blanco MD - 08/01/2010 1102 EDT Chief Complaint: Teri Haro is a 30 y.o. female seen today in consultation at the request of for consideration of surgical treatment for her morbid obesity. HPI: Teri Haro has had weight problems since childhood. She has tried multiple weight loss programs with the following results: no long-term success. Their maximum weight loss has been 70 pounds, and their highest weight has been 250. The patient's primary motivation for weight loss is health, mobility, longevity and appearance. Associated co-morbidities: hypothyroidism,depression anxiety Gallbladder: US not done yet Prior abdominal surgeries: Uterine ablation No past surgical history on file. Gastric problems/issues: GERD There is no problem list on file for this patient. Allergies: Review of patient's allergies indicates not on file. Social History: History Substance Use Topics ??? Tobacco Use: Not on file ??? Alcohol Use: Not on file Review of Systems: A ten point review of systems was performed. Pertinent positives are listed below, all others are negative: Gastrointestinal: positive for reflux symptoms Genitourinary: positive for urgency of urination Musculoskeletal: positive for back pain Physical Exam: There were no vitals taken for this visit. There is no height or weight on file to calculate BMI. General Appearance: healthy appearing and morbidly obese HEENT: PERRLA, EOMI and Sclera clear, anicteric Cardiovascular: PMI normal. No lifts, heaves, or thrills. RRR. Heart sounds normal. No murmurs, clicks or gallops. Abdominal aorta pulsation normal. Carotid, femoral and pedal pulses 2+ bilaterally. No arterial bruits. No peripheral edema. Abdomen: soft, non-tender; bowel sounds normal; no masses, no organomegaly Pannus: moderate Skin: Skin color, texture, turgor normal. No rashes or lesions. Extremities: normal strength, tone, and muscle mass Assessment: I spent 45 minutes with this patient. Over 50% of this appointment was spent in face to face counseling, discussing this patient's medical profile as it relates to the benefits and risks of gastric bypass/lapband surgery and reviewed an on- line UBALDO tutorial the patient watched covering the way weight loss surgery is done, how it causes weight loss, potential risks and complications, impact on eating and critical nature of exercise and follow up to a good outcome. The patient acknowledges a pre-op BMI goal of 5%. I explained in detail the procedures that we are performing. All of these procedures can be performed laparoscopically or open. The patient was made aware of the followin. As we perform these procedures laparoscopically, there is a chance to convert to open if any technical challenges or complications do occur. 2. Bariatric surgery is not cosmetic surgery and should not be thought of in any way as cosmetic surgery. It does not involve the removal of adipose tissue by surgery or removal by suctioning. 3. Long-life commitment is a very important part of his/her decision along with lifestyle changes including diet, exercise, and behavior changes. 4. Problems after surgery may require more operations to correct them. 5. Patient will need to be on a liquid/protein diet for at least 2 weeks prior to surgery. 6. If appropriate: she was advised against during the first year after the procedure. The risks, benefits and alternatives of all of the procedures were explained in detail including, but not limited to , anesthesia and medication adverse effect/DVT, pulmonary embolism, trocar site/incisional hernia, wound infection, bleeding, failure to lose weight or gain weight and change inbody image. With regard to the band, the risks and benefits were explained. The risks associated with the band include, but are not limited to: gastric/esophageal perforation, access port leakage, infection or twisting that may require an additional operation, failure to lose weight or gaining weight, nausea, v omiting, outlet obstruction, pouch and esophageal dilatation, gastroesophageal reflux disease symptoms, band migration/slippage or erosion. For the gastric bypass the risks include but not limited to the following early complications: anastomotic leak/peritonitis, acute distal gastric dilatation, Thea limb obstruction, severe & minorwound infection/seroma, and nausea/vomiting. Late complications of gastric bypass can include but are not limited to: stomal stenosis, marginal ulcer, SBO/internal,incisional hernia, staple line disruption (GGF) and metabolic complications with calcium, thiamine, vitamin B12, folate, iron and anemia. Regarding the sleeve the risks include but are not limited to: internal visceral/ organ injury, bleeding, infection, leak, stenosis and possibility of regaining weight. The patient understands the surgical procedures and the different surgical options that are available. She understands the lifestyle changes that would be required after surgery and has agreed to participate in a pre-operative and postoperative weight management program. She understands the risks involved as well, including a leak, a blood clot developing in a leg and migrating to the lungs as a pulmonary embolus, conversion to open surgery, and . Teri has attended the preoperative bariatric education class and has had additional opportunity to address specific concerns. I think she is a good candidate for this surgery, and her expectations from the surgery is reasonable. Plan: She was asked to Shedule a follow-up appt with our pile driving supervisor and our nurse practitioner, Monique. We will obtain the results of the following: UGI. Teri Haro is an appropriate candidate for LapBand surgery pending test results.. For the next visit she was advised to come with her family. Skyler Blanco MD documented in this encounter Miscellaneous Notes * Scanned Note-Null - German, Dairy Equipment Installer - 08/07/2011 1402 EDT documented in this encounter Plan of Treatment Upcoming Encounters Date Type Department Care Team (Late st Contact Info) Description 12/29/2024 10:20 EST Office Visit [facility] Rheumatology & Immunology - [address] [phone] Micaela Hoff MD [address] [facility], [address] [place] [address] documented as of this encounter Procedures Procedure Name Priority Date/Time Associated Diagnosis Comments FL UPPER GI SERIES AIR CONTRAST W/KUB Routine 08/07/2010 11:21 EDT GERD (gastroesophageal reflux disease) documented in this encounter Results * FL UPPERGI SERIES AIR CONTRAST W/KUB (08/07/2010 11:21 EDT) Anatomical Region Laterality Modality Other 08/07/2010 11:2 1 EDT 08/08/2010 13:14 EDT Narrative 08/08/2010 13:14 EDT FL UPPERGI SERIES AIR CONTRAST ??Aug 07, 2010 11:21:00 AM Signs and Symptoms/Comments: ??530.81-GERD (GASTROESOPHAGEAL REFLUX DISEASE)-I9 GERD Comparisons: None. Technique: Single and double-contrast views of the thoracic esophagus, stomach, duodenal bulb and sweep were obtained. Findings: Cleaning Handyman KUB normal bowel gas pattern. An IUD is noted in the deep pelvis. Study shows a normally distensible thoracic esophagus within normal appearing mucosa. Gastroesophageal reflux to the level of the mid thoracic esophagus was elicited with water siphon maneuver. A hiatal hernia was not seen. The stomach is normally distensible than normal appearing mucosa. The duodenal bulb and sweep are within normal limits. Impression: No evidence of hiatal hernia. Gastroesophageal reflux. I have personally reviewed the images and the above interpretation and agree with the findings. Procedure Note Ruth Harman MD - 08/08/2010 FL UPPERGI SERIES AIR CONTRAST Aug 07, 2010 11:21:00 AM Signs and Symptoms/Comments: 530.81-GERD (GASTROESOPHAGEAL REFLUX DISEASE)-I9 GERD Comparisons: None. Technique: Single and double-contrast views of the thoracic esophagus, stomach, duodenal bulb and sweep were obtained. Findings: Cleaning Handyman KUB normal bowel gas pattern. An IUD is noted in the deep pelvis. Study shows a normally distensible thoracic esophagus within normal appearing mucosa. Gastroesophageal reflux to the level of the mid thoracic esophagus was elicited with water siphon maneuver. A hiatal hernia was not seen. The stomach is normally distensible than normal appearing mucosa. The duodenal bulb and sweep are within normal limits. Impression: No evidence of hiatal hernia. Gastroesophageal reflux. I have personally reviewed the images and the above interpretation and agree with the findings. Skyler Blanco MD IMG FLUOROSC OPY ORDERABLES documented in this encounter Visit Diagnoses Diagnosis GERD (gastroesophageal reflux disease)- Primary Esophageal reflux documented in this encounter Historical Medications * This list may reflect changes made after this encounter. Medication Sig Dispensed Refills Start Date End Date LEVONORGESTREL (MIRENA IU) by Intrauterine route. Every 5 years 10/13/2011 ibuprofen (MOTRIN) 200 mg tablet Take 200 mg by mouth every 6 hours as needed. 10/10/2010 varenicline (CHANTIX) 1 mg tablet Take 1 mg by mouth 2 times daily. 08/29/2010 levothyroxine (SYNTHROID) 50 mcg tablet Take 50 mcg by mouth daily. 01/23/2011 escitalopram (LEXAPRO) 20 mg tablet Take 20 mg by mouth daily. 11/27/2010 added in this encounter Care Teams Electronics Computer Mechanic Relationship Specialty Start Date End Date Ladonna Maurer PA [address] [place] [address] PCP - General 05/20/10 06/02/11 documented as of this encounter
--- OUTSIDE RECORDS SUMMARY | 2024-06-10 18:48 | XMS_ITS | Encounter Summary ---
Author Organization [facility] Address [address] [place] [address] Care Team Providers Care Car Washer Name Role Phone Ladonna Maurer Primary Care Provider [phone] Reason for Visit * Reason Comments Obesity pre op Encounter Details Date Type Department Care Team (Late st Contact Info) Description 08/29/2010 10:45 EDT Office Visit [facility] Bariatric Surgery - [place] [address] [place], [place] [phone] Skyler Blanco MD [address] [place] [address] GERD (gastroesophageal reflux disease); Morbid obesity ([facility]) Social History Tobacco Use Types Packs/Day Years Used Date Smoking Tobacco: Never Assessed Sex and Gender Information Value Date Recorded Sex Assigned at Not on file Gender Identity Not on file Sexual Orientation Not on file documented as of this encounter Last Filed Vital Signs Vital Sign Reading Time Taken Comments Blood Pressure 116/68 08/29/2010 1045 EDT Pulse 68 08/29/2010 1045 EDT Temperature - - Respiratory Rate - - Oxygen Saturation - - Inhaled Oxygen Concentration - - Weight 113.8 kg (250 lb 12.8 oz) 08/29/2010 1045 EDT Height 169.3 cm (5' 6.65) 08/29/2010 1045 EDT Body Mass Index 39.69 08/29/2010 1045 EDT documented in this encounter Progress Notes * Bia Neal, RD - 08/29/2010 1117 EDT PRE OP NUTRITION FOLLOW UP NOTE Bariatric Clinic Nutrition Pre-op Visit Visit Number: 2 Desired surgery: Lap Band Subjective: Continues to be very fatigues due to sleep apnea-PSG is next week. Keeping food logs although she admits to making poor choices especially when tired. Recognizing food triggers but still unable to change behavior Food logs: maintained by hand Meal pattern: 3 Average caloric intake: as high as 2500 lynette, low's around 1500 Meal composition: generally well balanced with good protein but some high fat foods Snacking: Exercise: treadmill and walking Objective: Weight: 250.8 lb Weight loss from last visit: +0.8 lb Total weight loss: Weight loss goal: +0.8 lb Approximately 12-13 lb Surgery Date: Significant Medications and Supplements: multivitamin Assessment: Patient has made poor progress in making lifestyle changes Comments: beginning to recognize triggers to her eating but feels unable to change them at the moment. She is hoping that better sleep and less fatigue will help. Reviewed strategies for avoiding/dealing with triggers. Plan: Diet Goals: Eat smaller meals, Decrease intake of high-fat items, Keep food records, Eat more slowly, Calorie goal 1500 lynette average and plan meals and snacks Exercise Goals: Maintain current exercise Weight Loss Goal: Approximately 12-13 lb Weight Loss Remaining to Goal: Approximately 12-13 lb Reviewed: Food/Activity Record Next Visit: Pre-op follow-up visit * Skyler Blanco MD - 08/29/2010 1103 EDT Pt with symptomatic reflux at times treated with prn meds and tums -ugi with reflux to mid esophagus no hiatal hernia therefore recommend EGD and follow up with me . Seen and discussed with registered dietitian today documented in this encounter H&P Notes * Inpatient, Physician - 01/10/2011 1555 EST documented in this encounter Miscellaneous Notes * Scanned Note-Null - Computer Security Specialist, Scan - 08/28/2011 1109 EDT documented in this encounter Plan of Treatment Upcoming Encounters Date Type Department Care Team (Late st Contact Info) Description 12/29/2024 10:20 EST Office Visit [facility] Rheumatology & Immunology - [address] [id number] Micaela Hoff MD [address] [place] [address], [address] [place] [address] Scheduled Orders Name Type Priority Associated Diagnoses Orde r Schedule UPPER ENDOSCOPY GI Routine GERD (gastroesophageal reflux disease) Morbid obesity ([facility]) Ordered: 08/29/2010 documented as of this encounter Visit Diagnoses Diagnosis GERD (gastroesophageal reflux disease) Esophageal reflux Morbid obesity ([facility]) Morbid obesity documented in this encounter Discontinued Medications Medication Sig Discontinue Reason Start Date End Da te varenicline (CHANTIX) 1 mg tablet Take 1 mg by mouth 2 times daily. Patient Stopped Taking 08/29/2010 documented as of this encounter Historical Medications * This list may reflect changes made after this encounter. Medication Sig Dispensed Refills Start Date End Date MULTIVITAMIN ORAL Take by mouth daily. 08/29/2010 mometasone (NASONEX) 50 mcg/Actuation nasal spray 2 Sprays by Nasal route daily. 02/06/2011 added in this encounter Care Teams Car Washer Relationship Specialty Start Date End Date Ladonna Maurer PA [address] [place] [id number] PCP - General 05/20/10 06/02/11 documented as of this encounter
--- OUTSIDE RECORDS SUMMARY | 2024-06-10 18:48 | XMS_ITS | Encounter Summary ---
Author Organization [facility] Address [address] [place] [address] Care Team Providers Care Audio Operator Name Role Phone Unavailable Primary Care Provider Unavailabl e Encounter Details Date Type Department Care Team (Latest Contact Info) Description 04/09/2008 6:52 EDT - 04/09/2008 11:59 EDT Hospital Encounter [facility] Birthing Center [address] [place] [address] Linda Bustillos MD Discharge Disposition: Home or [...] 12/29/2024 10:20 EST Office Visit [facility] Rheumatology & Immunology - [facility] [address] [place], [place] [address] Micaela Hoff MD [address] [facility], [address] [place] [address] documented as of this encounter Procedures Procedure Name Priority Date/Time Associated Diagnosis Comments URINE MICROSCOPIC Routine 04/09/2008 7:5 5 EDT URINALYSIS WITH MICROSCOPIC IF POSITIVE Routine 04/09/2008 7:55 EDT documented in this encounter Results * (ABNORMAL) URINE MICROSCOPIC (04/09/2008 7:55 EDT) WBC, UA less than 1 0 - 5 /HPF [facility] RBC, UA less than 1 0 - 5 /HPF [facility] Squam Epithel, UA Frequent(A) NS /HPF [facility] Renal Epithel, UA None seen NS /HPF [facility] Bacteria, UA None seen NS /HPF [facility] Crystals, UA None seen /HPF [facility] Hyaline Casts, UA None seen /LPF [facility] UA Comment Microscopic results are unreliable on urines unrefrig >2hrs or refrig >8hrs. [facility] 04/09/2008 7:55 EDT 04/09/2008 8:05 EDT Linda Bustillos MD URINALYSIS ORDERABLE S Performing Organization Address City/[facility] Co de Phone Number [facility] [address] [place] [address] * (ABNORMAL) URINALYSIS (04/09/2008 7:55 EDT) Color, UA Yellow [facility] Clarity, UA Clear [facility] Glucose, UA Norm NORM [facility] Bilirubin, UA Neg NEG [facility] Ketones, UA Neg NEG [facility] Specific [place], Urine 1.015 1.005 - 1.02 [facility] Blood, UA Trace(A) NEG [facility] pH, UA 6.5 5.0 - 9.0 [facility] Protein, UA Neg NEG [facility] Urobilinogen, UA Norm NORM mg/dL [facility] Nitrite, UA Neg NEG [facility] Leuk Esterase Trace(A) NEG [facility] 04/09/2008 7:55 EDT 04/09/2008 8:05 EDT Linda Bustillos MD URINALYSIS ORDERABLE S [facility] [address] [place] [address] documented in this encounter Visit Diagnoses Not on filedocumented in this encounter
--- OUTSIDE RECORDS SUMMARY | 2024-06-10 18:48 | XMS_ITS | Encounter Summary ---
Author Organization [facility] Address [address] [place] [address] Care Team Providers Care Skein Bander Name Role Phone Ladonna Maurer Primary Care Provider [phone] Encounter Details Date Type Department Care Team (Late st Contact Info) Description 09/03/2007 Results Only [facility] Obstetrics & Midwifery - [address] [phone] Shanique Eagle MD [address] [phone] Social History Tobacco Use Types Packs/Day Years [...] [facility] Rheumatology & Immunology - [address] [phone] Micaela Hoff MD [address] [facility], [address] [place] [address] documented as of this encounter Procedures Procedure Name Priority Date/Time Associated Diagnosis Comments BACTERIAL CULTURE, URINE Routine 09/03/2007 15:49 EDT PROFILE AND VARICELLA Routine 09/03/2007 15:48 EDT CHLAMYDIA/GC AMPLIFIED PROBE Routine 09/03/2007 15:11 EDT CYTOPATHOLOGY Routine 09/03/2007 0:00 EDT documented in this encounter Results * BACTERIAL CULTURE, URINE (09/03/2007 15:49 EDT) Specimen Description Urine [facility] Result No growth [facility] Report Status Final [id number] [facility] 09/03/2007 15:4 9 EDT 09/03/2007 15:51 EDT Shanique Eagle MD MICROBIOLOGY - GENER AL ORDERABLES [facility] [address] [place] [address] * (ABNORMAL) PROFILE AND VARICELLA (09/03/2007 15:48 EDT) ABO and Rh Type A POS [facility] Antibody Screen Neg [facility] WBC 8.30 4.0 - 12.4 K/cmm [facility] RBC 4.07 3.86 - 5.04 M/cmm [facility] Hemoglobin 12.3 11.6 - 15.2 gm/dl [facility] HCT 34.8(L) 34.9 - 44.4 % [facility] MCV 86 81 - 98 fl [facility] MCH 30.3 26.7 - 33.3 pg [facility] MCHC 35.4 32.1 - 35.9 gm/dl [facility] PLT 274 141 - 320 K/cmm [facility] RDW-CV 12.3 11.7 - 14.6 % [facility] % Neutrophils 64.2 45.5 - 79.7 % [facility] % Lymphocytes 25.6 15.0 - 46.8 % [facility] % Monocytes 8.0 1.8 - 12.0 % [facility] % Eosinophils 1.8 0.6 - 6.9 % [facility] % Basophils 0.4 0.2 - 1.4 % [facility] ABS Neutrophils 5.32 2.20 - 8.85 K/cmm [facility] ABS Lymphs 2.12 1.09 - 3.30 K/cmm [facility] ABS Monocytes 0.67 0.1 - 0.8 K/cmm [facility] ABS Eosinophils 0.15 0.03 - 0.61 K/cmm [facility] ABS Basophils 0.03 0.01 - 0.11 K/cmm [facility] Type of Diff: Automated [facility] Hepatitis B Surface Ag Neg [facility] Syphilis Sero (RPR) NONREACT. NR Dils [facility] Rubella IgG Ab Antibody detected Assayed utilizing the [employer] Immulite 2500. Values may vary with other methods. [facility] Varicella IgG Ab Antibody detected [facility] 09/03/2007 15:4 8 EDT 09/03/2007 15:50 EDT Shanique Eagle MD PACKAGES & DNA PROBE ORDERABLES Performing Organization Address City/[facility] Co de Phone Number [facility] [address] [place] [address] * CHLAMYDIA/GC AMPLIFIED PROBE (09/03/2007 15:11 EDT) Specimen Description Cervix [facility] Result No Chlamydia trachomatis or Neisseria gonorrhoeae DNA detected by interlocker mediated amplification. [facility] Report Status Final [id number] [facility] 09/03/2007 15:1 1 EDT 09/03/2007 16:27 EDT Shanique Eagle MD MICROBIOLOGY - GENER AL ORDERABLES Performing Organization Address City/[facility] Co de Phone Number [facility] [address] [place] [address] * CYTOPATHOLOGY (09/03/2007 0:00 EDT) Pathology Report: CYTOPATHOLOGY REPORT Reports generated via electronic interface contain original data; however they are lacking the format of the original report. Caution should be taken when reading/interpreti ng unformatted reports. Name: ? TERI CROWE ? Accession #: ? [id number] : ? 1980 (Age: 27) ??F ?Collect Date: ? 09/03/2007 Location: ? [facility] ? Receive Date: ? 09/06/2007 Provider: ?SHANIQUE EAGLE MD Copy to: ? Specimen/Source: ?ThinPrep Pap Test, Cervix/Endocervix, processed on [employer] ThinPrep Imaging System, with manual evaluation Last Menstrual Period: ? 07/20/07 Menstrual/Pregnanc y Status: ? Treatment History: ? LEEP Other: ? HPVA - HPV testing requested if ASC-US on the current ThinPrep Pap test. ? SPECIMEN ADEQUACY ? Satisfactory for Evaluation - transformation zone component present GENERAL CATEGORIZATION ? Negative for Intraepithelial Lesion or Malignancy INTERPRETATION ? Reactive cellular changes associated with inflammation present (includes repair). Shift in marquita present suggestive of bacterial vaginosis. ? Document reviewed and electronically signed by: ? GEORGIANA PAULINO MD ? Report Date: ??09/10/2007 18:30 End of Report [facility] 09/03/2007 09/06/2007 Shanique Eagle MD PATHOLOGY ORDERABLES [facility] [address] [place] [address] documented in this encounter Visit Diagnoses Not on filedocumented in this encounter Care Teams Skein Bander Relationship Specialty Start Date End Date Ladonna Maurer PA [address] [place] [address] PCP - General 05/20/10 06/02/11 documented as of this encounter
--- OUTSIDE RECORDS SUMMARY | 2024-06-10 18:48 | XMS_ITS | Encounter Summary ---
Author Organization [facility] Address [address] [place] [address] Care Team Providers Care Escrow Clerk Name Role Phone Unavailable Primary Care Provider Unavailabl e Encounter Details Date Type Department Care Team (Late st Contact Info) Description 11/01/2007 12:15 EST Hospital Encounter [address] [address] Kenton Parrish MD Social History Tobacco Use [...] Description 12/29/2024 10:20 EST Office Visit [facility] Rheumatology & Immunology - [address] [phone] Micaela Hoff MD [address] [place] [address], [address] [place] [phone] documented as of this encounter Visit Diagnoses Not on filedocumented in this encounter Additional Health Concerns Infection Onset Date Last Indicated Resolved Time 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
--- OUTSIDE RECORDS SUMMARY | 2024-06-10 18:48 | XMS_ITS | Encounter Summary ---
Author Organization [facility] Address [address] [place] [address] Care Team Providers Care Carriage Rider Name Role Phone Ladonna Maurer Primary Care Provider Encounter Details Date Type Department Care Team (Late st Contact Info) Description 05/17/2007 Results Only [facility] [address] [place] [address] Unknown, Provider, Social History Tobacco Use Types Packs/Day Years Used Date Smoking Tobacco: Never Assessed Sex and Gender Information Value Date Recorded Sex Assigned at Not on file Gender Identity Not on file Sexual Orientation Not on file documented as of this encounter Plan of Treatment Upcoming Encounters Date Type Department Care Team (Late st Contact Info) Description 12/29/2024 10:20 EST Office Visit [facility] Rheumatology & Immunology - [address] [address] Micaela Hoff MD 111 [facility], [address] [place] [phone] documented as of this encounter Procedures Procedure Name Priority Date/Time Associated Diagnosis Comments CHLAMYDIA/GC AMPLIFIED PROBE Routine 05/17/2007 10:30 EDT CYTOPATHOLOGY Routine 05/17/2007 0:00 EDT documented in this encounter Results * CHLAMYDIA/GC AMPLIFIED PROBE (05/17/2007 10:30 EDT) Specimen Description Cervix [facility] Result No Chlamydia trachomatis or Neisseria gonorrhoeae DNA detected by plant technician mediated amplification. [facility] Report Status Final [id number] [facility] 05/17/2007 10:3 0 EDT 05/18/2007 15:30 EDT Provider Unknown MD MICROBIOLOGY - GENER AL ORDERABLES [facility] [address] [place] [address] * CYTOPATHOLOGY (05/17/2007 0:00 EDT) Pathology Report: CYTOPATHOLOGY REPORT Reports generated via electronic interface contain original data; however they are lacking the format of the original report. Caution should be taken when reading/interpreti ng unformatted reports. Name: ? TERI CROWE ? Accession #: ? [id number] : ? 1980 (Age: 27) ??F ?Collect Date: ? 05/17/2007 Location: ? [facility] ? Receive Date: ? 05/18/2007 Provider: ?MAYANK FLORENTINO MD Copy to: ? Specimen/Source: ?ThinPrep Pap Test, Cervix/Endocervix, processed on [employer] ThinPrep Imaging System, with manual evaluation Last Menstrual Period: ? 02/03/07 Treatment History: ? LEEP: Nov 2002 Other: ? HPVA - HPV testing requested if ASC-US on the current ThinPrep Pap test. ? SPECIMEN ADEQUACY ? Satisfactory for Evaluation - transformation zone component present GENERAL CATEGORIZATION ? Negative for Intraepithelial Lesion or Malignancy INTERPRETATION ? Shift in marquita present suggestive of bacterial vaginosis. ? Document reviewed and electronically signed by: ? Bia Hanson, GARY(ASCP)(IAC) ? Report Date: ??05/24/2007 14:01 End of Report [facility] 05/17/2007 05/18/2007 Mayank Florentino PATHOLOGY ORDERABLES Performing Organization Address City/State/[facility] Co de Phone Number [facility] [address] [place] [address] documented in this encounter Visit Diagnoses Not on filedocumented in this encounter Care Teams Carriage Rider Relationship Specialty Start Date End Date Ladonna Maurer PA [address] [place] [address] PCP - General 05/20/10 06/02/11 documented as of this encounter
--- OUTSIDE RECORDS SUMMARY | 2024-06-10 18:48 | XMS_ITS | Encounter Summary ---
Author Organization [facility] Address [address] [place] [address] Care Team Providers Care Program Services Planner Name Role Phone Unavailable Primary Care Provider Unavailabl e Encounter Details Date Type Department Care Team (Late st Contact Info) Description 10/31/2007 Office Visit [facility] - [facility] [address] [place] [address] Katharina Corey, PA [address] [place] [address] Social History Tobacco Use Types Packs/Day Years Used Date Smoking Tobacco: Never Assessed Sex and Gender Information Value Date Recorded Sex Assigned at Not on file Gender Identity Not on file Sexual Orientation Not on file documented as of this encounter Progress Notes * Katharina Hoover - 12/23/2009 0640 EST Department - Physician Summary Registration Date/Time: 10/31/2007 10:15 Time Seen: 10:27. Arrived- By private vehicle. Historian- patient. HISTORY OF PRESENT ILLNESS Chief Complaint: VAGINAL BLEEDING. This started just prior to arrival and is still present. The patient has had mild, crampy pelvic pain. She has had moderate vaginal bleeding (unable to quantify since bleeding began just tours captain, pt noted moderate amount of blood on toilet paper after using bathroom).No complaint of leakage of fluid or vaginal discharge. EDC is . Gestational age is 15 weeks, by sonogram. Pt is , currently in high risk group due to miscarriage at 20 wks with last . Patient has not had similar symptoms previously. Not recently seen/assessed. REVIEW OF SYSTEMS The patient has had skin rash (on buttocks for a few weeks, thinks its eczema). No nausea, vomiting, diarrhea, black stools or bloody stools. No headache, double vision, fainting episodes, fever or eye discomfort. No eye discharge, sore throat, cough, difficulty breathing or chest pain. No chills. PAST HISTORY G 2; P 0; Ab 1. The patient has had care by an clay preparation supervisor. The patient has had problems with previous . No problems with current . Medications: (lexapro, prenatals). Allergies: No known drug allergies. SOCIAL HISTORY Nonsmoker. No alcohol use. ADDITIONAL NOTES The nursing notes have been reviewed. PHYSICAL EXAM Appearance: Alert. Oriented X3. No acute distress. Vital Signs: Have been reviewed (BP: 113/72, HR: 70, RR: 20, Temp: 37.0). HEENT: Normal external inspection. ENT: Pharynx normal. Neck: Neck supple. Respiratory: No respiratory distress. Skin: Normal skin color and turgor. Skin warm and dry. No rash. Extremities: Extremities nontender. No pathologic edema. Neuro: Oriented X 3. Mood/affect normal. No motor deficit. No sensory deficit. PROGRESS AND PROCEDURES E.D. Course: computer technical support specialist feels pt is ok for d/c with f/u with obgyn. Pt agrees. Pelvic exam done by computer technical support specialist resident.. Consult obtained from OB-GROUP DIRECTOR EXPERIENCE. Case discussed. Will see patient in the ED today. Consultation performed in ED. Patient/family counseled. EDAttending on duty and available for supervision: Heidy Paul. Disposition: Condition: good. Discharged home. CLINICAL IMPRESSION Mild vaginal bleeding. Second trimester . INSTRUCTIONS Drink plenty of fluids. Your Current Medications: Your current home medications have been reviewed by the Emergency Department physician executive personal assistant. No changes in your current home medications are recommended at this time. Continue taking the following medications: lexapro vitamins. OTC Medications: Acetaminophen (available over the counter): take according tolabel instructions. Follow-up: Follow up with an clay preparation supervisor as scheduled. Follow-up: LIZZETH CLAYTON MD, SUPERVISOR FILM PROCESSING, , [address] [facility] [address], [address]. Follow up as scheduled. Understanding of the discharge instructions verbalized by patient. (Electronically signed by AUSTIN Maddox 10/31/2007 19:30) TERI Ford VisitID: [id number] Date: 10/31/2007 10/31/2007 9:42 DEVIN REFERRING PT TO SUPERVISOR FILM PROCESSING FOR ABDOMINAL CRAMPS AND VAGINAL BLEEDING, 15 WEEKS , HX OF 20 WEEK MISCARRIAGE. PLEASE PAGE [phone] WHEN PT ARRIVES. signed by Carmina Friend - 10/31/2007 9:42) Department - Nursing Summary Registration Date/Time: 10/31/2007 10:15 TRIAGE Initial Assessment Triage time 10:17. Acuity: LEVEL 3. BP: 113 / 72. HR: 70. RR: 20. Temp: 37.0 tympanic. Alert. --1019 Kelle Prescott R.N.. Medications (lexapro vitamins). --1019 Kelle Prescott R.N.. Allergies No known drug allergies. --1019 Kelle Prescott R.N.. History Chief Complaint: VAGINAL BLEEDING. This started today. Pain level now: 4/10. (pt woke up today around 9 am and has had vaginal bleeding and pressure. Pt sent here by GROUP DIRECTOR EXPERIENCE MD.). Treatment CROWN ATTACHER: None. PAST HX: Negative. Currently : 15 weeks. SOCIAL HX: Nonsmoker. No alcohol use. No report of abuse. Arrived by private vehicle. Historian: patient. --1019 Kelle Prescott R.N.. DISPOSITION / DISCHARGE The patient was discharged home and accompanied by project scientist. The patient left the Emergency Department ambulatory anda private vehicle. Case Assembler driving. --1134 Sis Rg R.N.. Kelle Rg R.N. Locked/Released at 10/31/2007 12:52 by Kelle McFaul, R.N. documented in this encounter Plan of Treatment Upcoming Encounters Date Type Department Care Team (Late st Contact Info) Description 12/29/2024 10:20 EST Office Visit [facility] Rheumatology & Immunology - [address] [address] Micaela Hoff MD 111 [facility], [address] [place] [address] documented as of this encounter Visit Diagnoses Not on filedocumented in this encounter
--- OUTSIDE RECORDS SUMMARY | 2024-06-10 18:48 | XMS_ITS | Encounter Summary ---
Author Organization [facility] Address [address] [place] [address] Care Team Providers Care Cyber Intel Planner Name Role Phone Unavailable Primary Care Provider Unavailabl e Encounter Details Date Type Department Care Team (Latest Contact Info) Description 11/29/2007 15:47 EST Hospital Encounter [address] [address] Linda Bustillos MD Discharge Disposition: Auto Discharge [...] 12/29/2024 10:20 EST Office Visit [facility] Rheumatology & Immunology - [address] [address] Micaela Hoff MD [address] [place] [address], [address] [place] [phone] documented as of this encounter Procedures Procedure Name Priority Date/Time Associated Diagnosis Comments [facility] CERVICAL LENGTH 11/29/2007 1 7:46 EST documented in this encounter Results * [facility] CERVICAL LENGTH (11/29/2007 17:46 EST) Anatomical Region Laterality Modality Other 11/29/2007 17:4 6 EST Narrative 04/23/2009 3:50 EDT CERVICAL LENGTH [address], H/O SEPTUM W/REPAIR, H/O 20 WK LOSS Please refer to the separate [facility] report. ??Contact Maternal Medicine. Procedure Note Makeda Lucas MD - 04/23/2009 CERVICAL LENGTH [address], H/O SEPTUM W/REPAIR, H/O 20 WK LOSS Please refer to the separate [facility] report. Contact Maternal Medicine. Magda Tejada MD IMG [facility] ORDERABLE S documented in this encounter Visit Diagnoses Not on filedocumented in this encounter
--- OUTSIDE RECORDS SUMMARY | 2024-06-10 18:48 | XMS_ITS | Encounter Summary ---
Author Organization [facility] Address [address] [place] [address] Care Team Providers Care Airport Ramp Attendant Name Role Phone Unavailable Primary Care Provider Unavailabl e Encounter Details Date Type Department Care Team (Late st Contact Info) Description 04/10/2008 14:01 EDT Hospital Encounter [address] [address] Linda Bustillso MD Social History Tobacco Use Types Packs/Day [...] 10:20 EST Office Visit [facility] Rheumatology & Immunology - [address] [address] Micaela Hoff MD [address] [place] [address], [address] [place] [phone] documented as of this encounter Visit Diagnoses Not on filedocumented in this encounter Additional Health Concerns Infection Onset Date Last Indicated Resolved Time 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
--- OUTSIDE RECORDS SUMMARY | 2024-06-10 18:48 | XMS_ITS | Encounter Summary ---
Author Organization [facility] Address [address] [place] [address] Care Team Providers Care Director Of Public Works Name Role Phone Unavailable Primary Care Provider Unavailabl e Encounter Details Date Type Department Care Team (Late st Contact Info) Description 02/08/2008 15:13 EDT Hospital Encounter [address] [address] Gracia Correa MD [address] [place] [address] [address] [place] [phone] Discharge Disposition: Auto Discharge Social History Tobacco [...] [facility] Rhe[facility]ology & Immunology [address] [phone] Micaela Hoff MD [address] [place] [address] [address] [place] [phone] documented as of this encounter Visit Diagnoses Not on filedocumented in this encounter
--- OUTSIDE RECORDS SUMMARY | 2024-06-10 18:48 | XMS_ITS | Encounter Summary ---
Author Organization [facility] Address [address] [place] [address] Care Team Providers Care Elder Counselor Name Role Phone Ladonna Maurer Primary Care Provider [phone] Encounter Details Date Type Department Care Team (Latest Contact Info) Description 09/03/2010 6:35 EDT - 09/03/2010 23:59 EDT Hospital Encounter [facility] [address] [place] [address] Skyler Blanco MD [address] [place] [phone] Discharge Disposition: Home or Self Care Social History Tobacco Use Types Packs/Day Years Used Date Smoking Tobacco: Never Assessed Sex and Gender Information Value Date Recorded Sex Assigned at Not on file Gender Identity Not on file Sexual Orientation Not on file documented as of this encounter Medications at Time of Discharge Medication Sig Dispensed Refills Start Date End Date escitalopram (LEXAPRO) 20 mg tablet Take 20 mg by mouth daily. 11/27/2010 ibuprofen (MOTRIN) 200 mg tablet Take 200 mg by mouth every 6 hours as needed. 10/10/2010 LEVONORGESTREL (MIRENA IU) by Intrauterine route. Every 5 years 10/13/2011 levothyroxine (SYNTHROID) 50 mcg tablet Take 50 mcg by mouth daily. 01/23/2011 mometasone (NASONEX) 50 mcg/Actuation nasal spray 2 Sprays by Nasal route daily. 02/06/2011 MULTIVITAMIN ORAL Take by mouth daily. 08/29/2010 documented as of this encounter Discharge Disposition Disposition Code Departure Means Destination Home or Self [facility] documented in this encounter Progress Notes * Inpatient, Physician - 09/03/2010 0000 EDT documented in this encounter Procedure Notes * Inpatient, Physician - 09/03/2010 0000 EDTAssociated Order(s): PROCEDURE REPORTS - SCANNED * Inpatient, Physician - 09/03/2010 0000 EDTAssociated Order(s): PATHOLOGY - SCANNED * Inpatient, Physician - 09/03/2010 0000 EDTAssociated Order(s): ORDERS - SCANNED documented in this encounter Miscellaneous Notes * Scanned Note-Null - Inpatient, Physician - 09/03/2010 0000 EDT * Scanned Note-Null - Inpatient, Physician - 09/03/2010 0000 EDT * Brief Op Note - Inpatient, Physician - 09/03/2010 0000 EDT documented in this encounter Plan of Treatment Upcoming Encounters Date Type Department Care Team (Late st Contact Info) Description 12/29/2024 10:20 EST Office Visit [facility] Rheumatology & Immunology - [address] [phone] Micaela Hoff MD [address] [place] [address], [address] [place] [address] documented as of this encounter Procedures Procedure Name Priority Date/Time Associated Diagnosis Comments PROCEDURE REPORTS - SCANNED 09/04/2010 10:10 EDT ORDERS - SCANNED 09/04/2010 10:1 0 EDT PATHOLOGY - SCANNED 09/04/2010 1 0:10 EDT documented in this encounter Results * PROCEDURE REPORTS - SCANNED (09/04/2010 10:10 EDT) 09/04/2010 10:1 0 EDT Narrative Procedure Note Inpatient, Physician - 09/03/2010 0:00 EDT Physician Inpatient MD PROCEDURE/MINOR S URGICAL ORDERABLES Performing Organization Address City/[facility] Co de Phone Number POINT OF CARE * ORDERS - SCANNED (09/04/2010 10:10 EDT) 09/04/2010 10:1 0 EDT Narrative Procedure Note Inpatient, Physician - 09/03/2010 0:00 EDT Physician Inpatient MD ADMISSION ORDERAB LES Performing Organization Address [facility] Co de Phone Number POINT OF CARE * PATHOLOGY - SCANNED (09/04/2010 10:10 EDT) 09/04/2010 10:1 0 EDT Narrative Procedure Note Inpatient, Physician - 09/03/2010 0:00 EDT Physician Inpatient MD LAB INFO SERVICE AND SUPPORT & PHONE RESULT Performing Organization Address [facility] Co de Phone Number POINT OF CARE documented in this encounter Visit Diagnoses Not on filedocumented in this encounter Care Teams Elder Counselor Relationship Specialty Start Date End Date Ladonna Maurer PA [address] [place] [address] PCP - General 05/20/10 06/02/11 documented as of this encounter
--- OUTSIDE RECORDS SUMMARY | 2024-06-10 18:48 | XMS_ITS | Encounter Summary ---
Author Organization [facility] Address [address] [place] [address] Care Team Providers Care Rail Walker Name Role Phone Unavailable Primary Care Provider Unavailabl e Encounter Details Date Type Department Care Team (Latest Contact Info) Description 11/04/2007 16:06 EST Hospital Encounter [address] [address] Kenton Parrish MD Discharge Disposition: Auto Discharge [...] 12/29/2024 10:20 EST Office Visit [facility] Rheumatology & Immunology - [address] [address] Micaela Hoff MD [address] [facility], [address] [place] [phone] documented as of this encounter Visit Diagnoses Not on filedocumented in this encounter
--- OUTSIDE RECORDS SUMMARY | 2024-06-10 18:48 | XMS_ITS | Encounter Summary ---
Author Organization [facility] Address [address] [place] [address] Care Team Providers Care Lab Animal Technologist Name Role Phone Ladonna Maurer Primary Care Provider [phone] Encounter Details Date Type Department Care Team (Late st Contact Info) Description 03/28/2008 Results Only [facility] Obstetrics & Midwifery - [address] [phone] Makeda Lucas MD [address] [place] [address] 4 [place] [address] Social History Tobacco Use Types [...] Description 12/29/2024 10:20 EST Office Visit [facility] Rheumatology & Immunology - [address] [phone] Micaela Hoff MD [address] [place] [phone] documented as of this encounter Procedures Procedure Name Priority Date/Time Associated Diagnosis Comments GROUP B STREP PCR Routine 03/28/2008 15: 56 EDT documented in this encounter Results * GROUP B STREPTOCOCCUS MOLECULAR DETECTION (03/28/2008 15:56 EDT) Specimen Description Vaginal and Rectal [facility] Result No Group B beta streptococcal DNA detected by PCR. [facility] Report Status Final [id number] [facility] 03/28/2008 15:5 6 EDT 03/28/2008 19:31 EDT Makeda Lucas MD MICROBIOLOGY - GENER AL ORDERABLES [facility] [address] [place] [address] documented in this encounter Visit Diagnoses Not on filedocumented in this encounter Care Teams Lab Animal Technologist Relationship Specialty Start Date End Date Ladonna Maurer PA [address] [place] [address] PCP - General 05/20/10 06/02/11 documented as of this encounter
--- OUTSIDE RECORDS SUMMARY | 2024-06-10 18:48 | XMS_ITS | Encounter Summary ---
Author Organization [facility] Address [address] [place] [address] Care Team Providers Care Neck Pinner Name Role Phone Ladonna Maurer Primary Care Provider Encounter Details Date Type Department Care Team (Late st Contact Info) Description 02/03/2011 Abstract [facility] Cardiology - [place] [address] [place] [address] Ladonna Maurer PA [address] [place] [id number] Social History Tobacco Use Types Packs/Day Years [...] Description 12/29/2024 10:20 EST Office Visit [facility] Rheumatology & Immunology - [address] [phone] Micaela Hoff MD 111 [facility], Level [address] [place] [address] documented as of this encounter Visit Diagnoses Not on filedocumented in this encounter Care Teams Neck Pinner Relationship Specialty Start Date End Date Ladonna Maurer PA [address] [place] [address] PCP - General 05/20/10 06/02/11 documented as of this encounter
--- OUTSIDE RECORDS SUMMARY | 2024-06-10 18:48 | XMS_ITS | Encounter Summary ---
Author Organization [facility] Address [address] [place] [address] Care Team Providers Care Instructional Systems Specialist Name Role Phone Ladonna Maurer Primary Care Provider [phone] Reason for Visit * Reason Onset Date Comments Other 12/27/2010 Encounter Details Date Type Department Care Team (Late Contact Info) Description 12/27/2010 Telephone [facility] Bariatric Surgery - [address] [address] Alesha Russo, RN [address] [place] [address] Other Social History Tobacco Use Types Packs/Day [...] encounter Miscellaneous Notes * Telephone Encounter - Alesha Russo - 12/27/2010 1154 EST Patient requesting refill of Nexium. Per Dr. Blanco: New script called to [facility]. Nexium 40 mg capsule; take one daily x 90 days. 2 refills. Patient aware documented in this encounter Plan of Treatment Upcoming Encounters Date Type Department Care Team (Late Contact Info) Description 12/29/2024 10:20 EST Office Visit [facility] Rheumatology & Immunology - [address] [address] Micaela Hoff MD 111 [facility], [address] [place] [phone] documented as of this encounter Visit Diagnoses Not on filedocumented in this encounter Care Teams Instructional Systems Specialist Relationship Specialty Start Date End Date Ladonna Maurer PA [address] [place] [id number] PCP - General 05/20/10 06/02/11 documented as of this encounter
--- OUTSIDE RECORDS SUMMARY | 2024-06-10 18:48 | XMS_ITS | Encounter Summary ---
Author Organization [facility] Address [address] [place] [address] Care Team Providers Care Firefighter Type One Name Role Phone Unavailable Primary Care Provider Unavailabl e Encounter Details Date Type Department Care Team (Latest Contact Info) Description 04/17/2008 15:44 EDT Hospital Encounter [facility] [address] [place] [address] Linda Bustillos MD Discharge Disposition: Auto Discharge [...] [facility] Rheumatology [facility] Immunology - [facility] [address] [place], [place] [address] Micaela Hoff MD 111 [facility], [address] [place] [address] documented as of this encounter Visit Diagnoses Not on filedocumented in this encounter
--- OUTSIDE RECORDS SUMMARY | 2024-06-10 18:48 | XMS_ITS | Encounter Summary ---
Author Organization [facility] Address [address] [place] [address] Care Team Providers Care Offensive Coordinator Name Role Phone Ladonna Maurer Primary Care Provider Yair Dow MD Primary Care Provider [phone] Unknown, Provider Primary Care Provider [phone] Ladonna Maurer Primary Care Provider [phone] Cara Arteaga MD Primary Care Provider Conor Angel MD Primary Care Provider [phone] None, Provider Primary Care Provider Kaylynn Pizarro MD Primary Care Provider [phone] Encounter Details Date Type Department Care Team (Late st Contact Info) Description 08/28/2010 Documentation Visit [facility] Bariatric Surgery - [place] [address] [place], [place] [address] Kristine Escamilla, INDUSTRIAL MAINTENANCE REPAIRER 61 [facility] [address] [place], [place] [phone] Social History Tobacco Use Types Packs/Day Years [...] 10:20 EST Office Visit [facility] Rheumatology & Immunology - [facility] [address] [place] [address] Micaela Hoff MD 111 [facility], [address] [place] [phone] documented as of this encounter Visit Diagnoses Not on filedocumented in this encounter Additional Health Concerns Infection Onset Date Last Indicated Resolved Time 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 Care Teams Offensive Coordinator Relationship Specialty Start Date End Date Ladonna Maurer PA [address] [place] [address] PCP - General 05/20/10 06/02/11 Yair Dow MD [address] [place] [address] [address] SIMONS [address] [place] [phone] PCP - General 06/03/11 03/08/12 Unknown, ProviderMD PCP - General 03/09/12 05/11/12 Ladonna Maurer PA [address] [place] [address] PCP - General 05/12/12 01/24/13 Cara Arteaga MD [address] [place] [phone] PCP - General 01/25/13 02/06/14 Conor Angel MD [address] [place] [address] PCP - General 02/07/14 06/08/14 None, Provider PCP - General 06/09/14 03/01/15 Kaylynn Gimenez MD [address] [place] [address] PCP - General 03/02/15 documented as of this encounter
--- OUTSIDE RECORDS SUMMARY | 2024-06-10 18:48 | XMS_ITS | Encounter Summary ---
Author Organization [facility] Address [address] [place] [address] Care Team Providers Care Service Order Expediter Name Role Phone Unavailable Primary Care Provider Unavailabl e Encounter Details Date Type Department Care Team (Latest Contact Info) Description 09/03/2007 13:55 EDT Hospital Encounter [address] [address] Shanique Eagle MD [address] [phone] Discharge Disposition: Auto Discharge Social History Tobacco [...] [facility] Rheumatology & Immunology - [address] [phone] Micaela Hoff MD [address] [place] [address], [address] [place] [phone] documented as of this encounter Procedures Procedure Name Priority Date/Time Associated Diagnosis Comments MIRROR FINISHING MACHINE OPERATOR US OB FIRST TRIMESTER TRANSVAGINAL 09/10/2007 13:09 EST documented in this encounter Results * MIRROR FINISHING MACHINE OPERATOR US OB FIRST TRIMESTER TRANSVAGINAL (09/10/2007 13:09 EST) Anatomical Region Laterality Modality Other 09/10/2007 13:0 9 EST Narrative 04/23/2009 5:11 EDT VIABILITY DATING, EDC 04/26/08 OBSTETRICAL ULTRASOUND DATE: ??September 10, 2007 INDICATION: ??The patient is a 27-year-old G2, P0-1-0-0 woman with an LMP of July 20, 2007, giving an estimated gestational age of 7 weeks 2 days. ??The patient is here for early monitoring. The patient has a history of a 20-week loss. ??The patient was found to have a large, septate uterus, which has been resected since her loss. FINDINGS: ??Endovaginal ultrasound reveals an anteverted uterus with a single, living intrauterine . ??The is in a normal intrauterine location. ??Average crown-rump length is 0.6 cm, consistent with 6 weeks 3 days. ??On M-mode, the heart rate is 121 beats per minute. ??No abnormalities are noted of the pole, implantation site, yolk sac, or amniotic sac. ??The cervix appears normal. ??The myometrium is slightly bulky in the anterior wall. There is no discrete fibroid. ??There may be some adenomyosis. Both ovaries are visualized. ??The left ovary measures 4.1 x 1.9 x 2.6 cm and has an area consistent with a corpus luteum measuring 1.8 x 1.9 x 1.6 cm. ??The right ovary measures 4.3 x 1.6 x 2 cm and has an anechoic, cystic structure that is just adjacent to the end of the ovary. ??This either represents a peripheral ovarian cyst or a paratubal cyst. ??This measures 1.7 x 1.4 x 1.5 cm and is completely simple in appearance. ??There is no free fluid or masses in the cul-de-sac. IMPRESSION: 1. ??Single, living intrauterine with an average crown-rump length of 0.6 cm, consistent with 6 weeks 3 days, which is six days different than by LMP dating and likely represents the best dating for this . ??Based on ultrasound, her due date would be May 02, 2008. 2. ??The right ovary or just adjacent to the right ovary is a small, anechoic cyst measuring 1.7 x 1.4 x 1.5. ??This likely is either a simple follicular-type cyst or a paratubal cyst. 3. ??The left ovary appears normal and functional with a corpus luteum. PLAN: ??The patient was educated to the findings. D: ??09/10/2007 T: ??09/10/2007 /lw Procedure Note Trudi Berrios MD - 04/23/2009 VIABILITY DATING, EDC 04/26/08 OBSTETRICAL ULTRASOUND DATE: September 10, 2007 INDICATION: The patient is a 27-year-old G2, P0-1-0-0 woman with an LMP of July 20, 2007, giving an estimated gestational age of 7 weeks 2 days. The patient is here for early monitoring. The patient has a history of a 20-week loss. The patient was found to have a large, septate uterus, which has been resected since her loss. FINDINGS: Endovaginal ultrasound reveals an anteverted uterus with a single, living intrauterine . The is in a normal intrauterine location. Average crown-rump length is 0.6 cm, consistent with 6 weeks 3 days. On M-mode, the heart rate is 121 beats per minute. No abnormalities are noted of the pole, implantation site, yolk sac, or amniotic sac. The cervix appears normal. The myometrium is slightly bulky in the anterior wall. There is no discrete fibroid. There may be some adenomyosis. Both ovaries are visualized. The left ovary measures 4.1 x 1.9 x 2.6 cm and has an area consistent with a corpus luteum measuring 1.8 x 1.9 x 1.6 cm. The right ovary measures 4.3 x 1.6 x 2 cm and has an anechoic, cystic structure that is just adjacent to the end of the ovary. This either represents a peripheral ovarian cyst or a paratubal cyst. This measures 1.7 x 1.4 x 1.5 cm and is completely simple in appearance. There is no free fluid or masses in the cul-de-sac. IMPRESSION: 1. Single, living intrauterine with an average crown-rump length of 0.6 cm, consistent with 6 weeks 3 days, which is six days different than by LMP dating and likely represents the best dating for this . Based on ultrasound, her due date would be May 02, 2008. 2. The right ovary or just adjacent to the right ovary is a small, anechoic cyst measuring 1.7 x 1.4 x 1.5. This likely is either a simple follicular-type cyst or a paratubal cyst. 3. The left ovary appears normal and functional with a corpus luteum. PLAN: The patient was educated to the findings. /harlan Magda Tejada MD IMG US MIRROR FINISHING MACHINE OPERATOR ORDERABLE S documented in this encounter Visit Diagnoses Not on filedocumented in this encounter
--- OUTSIDE RECORDS SUMMARY | 2024-06-10 18:48 | XMS_ITS | Encounter Summary ---
Author Organization [facility] Address [address] [place] [address] Care Team Providers Care Net Front End Developer Name Role Phone Ladonna Maurer Primary Care Provider [phone] Encounter Details Date Type Department Care Team (Late st Contact Info) Description 09/03/2010 Results Only [facility] Bariatric Surgery - [place] [address] [place], [place] [phone] Rosita Blanco MD [address] [place] [phone] Social History Tobacco Use Types Packs/Day Years Used Date Smoking Tobacco: Never Assessed Sex and Gender Information Value Date Recorded Sex Assigned at Not on file Gender Identity Not on file Sexual Orientation Not on file documented as of this encounter Plan of Treatment Upcoming Encounters Date Type Department Care Team (Late st Contact Info) Description 12/29/2024 10:20 EST Office Visit [facility] Rheumatology & Immunology - [facility] [address] [place], [place] [address] Micaela Hoff MD 111 [facility], [address] [place] [address] documented as of this encounter Procedures Procedure Name Priority Date/Time Associated Diagnosis Comments SURGICAL PATHOLOGY Routine 09/03/2010 0:00 EDT documented in this encounter Results * SURGICAL PATHOLOGY (09/03/2010 0:00 EDT) Pathology Report: SURGICAL PATHOLOGY REPORT ? Reports generated via electronic interface contain original data; ? however they are lacking the format of the original report. ? Caution should be taken when reading/interpreting unformatted reports. ? Name: ? HARO, TERI R ? Accession #: ? [id number] ? : ? 1980 (Age: 30) ??F ? Collect Date: ? 09/03/2010 ? Location: ? [facility] ? Receive Date: ? 09/03/2010 ? Provider: ROSITA KHANIONE MD ? Copy to: LADONNA GARRIGAN PA ? Final Pathologic Diagnosis: ? A. ?Duodenum, biopsy: ? 1. ?Duodenal mucosa with no specific pathologic findings. ? B. ?Stomach, biopsy: ? 1. ?Portions of foveolar epithelium with mild reactive and hyperplastic changes. ? 2. ? Aggregates of acute inflammatory cells with degenerative tissue debris, ?? suggestive of ulcer/erosion. ? 3. ? Focal foveolar and glandular reactive and regenerative changes. ? 4. ? Immunohistochemistry is negative for Helicobacter pylori. ?? See comment. C. ?Gastroesophageal junction, biopsy: ? 1. ?Columnar mucosa with acute and chronic inflammation and marked ? reactive atypia. ? 2. ? Squamous mucosa with reactive changes. ? 3. ? No definite goblet cells, intestinal metaplasia, or dysplasia is ? identified. ? Comment: ? Immunohistochemical study, with appropriate positive and negative controls, was performed on this case to further characterize the lesion. ? Block ?Antibody (Clone) ? Result ? B ?H. pylori (polyclonal, [facility]) ? negative ? Deeper sections of (B) are examined. ? This case has been reviewed at intradepartmental consultation conference. ?? (Nasra Holguin)/mpl ? NOTE: ??One or more of the reagents used in immunohistochemical testing in this case may not have been cleared or approved by the U.S. Food and Drug ? Administration (FDA). ??The FDA has determined that such clearance or approval is not necessary. ??These tests are used for clinical purposes. ??They should not be regarded as investigational or for research. ??These reagents' ??performance ? characteristics have been determined by [facility]. ??This ? laboratory is certified under the Clinical Laboratory Improvement Amendments of 1988 (CLIA-88) as qualified to perform high complexity clinical laboratory ? testing. ? Document reviewed and electronically signed by: ? Clarence Paul, MD ? Report ??Date: 09/09/2010 14:58 ? By the signature above, the attending physician certifies that he/she has ? personally conducted a gross and/or microscopic examination of the described ? specimens and rendered or confirmed the above diagnosis. ? Specimen(s) Received: ? A. ?Duodenum ? B. ? Stomach ? C. ? GE junction ? Clinical History: ? Erythema in stomach; duodenal bulb erosions; antral erosion; R/O H. pylori; R/O Juárez's ? Gross Description: ? Received in Hollande's solution labelled Haro, Teri and duodenum is a single 0.5 x 0.2 x 0.1 cm pink- irregular soft tissue. ??Submitted in toto as (A). ? Received in AnaBios's solution labelled Haro, Teri and stomach are two ? pink- irregular soft tissues, 0.1 x 0.1 x 0.1 cm and 0.3 x 0.3 x 0.2 cm. ? Submitted in toto as (B). ? Received in AnaBios's solution labelled Haro, Teri and GE junction is a ?? single 0.2 x 0.2 x 0.2 cm pink- irregular soft tissue. ??Submitted in toto as (C). ??(Yvonne Mcdaniel)/natan ? End of Report ? [facility] 09/03/2010 09/03/2010 14: 00 EDT Rosita Blanco MD PATHOLOGY OR DERABLES [facility] [address] [place] [address] documented in this encounter Visit Diagnoses Not on filedocumented in this encounter Care Teams Net Front End Developer Relationship Specialty Start Date End Date Ladonna Maurer PA [address] [place] [address] PCP - General 05/20/10 06/02/11 documented as of this encounter
--- OUTSIDE RECORDS SUMMARY | 2024-06-10 18:48 | XMS_ITS | Encounter Summary ---
Author Organization [facility] Address [address] [place] [address] Care Team Providers Care Ladies Underwear Operator Name Role Phone Ladonna Maurer Primary Care Provider Reason for Visit * Reason Onset Date Comments Other 01/17/2011 Encounter Details Date Type Department Care Team (Late st Contact Info) Description 01/17/2011 Telephone [facility] Bariatric Surgery - [place] [address] [place] [address] Kristine Escamilla S, AGENT SPA DESK 61 [facility] [address] [phone] Other Social History Tobacco Use Types Packs/Day [...] encounter Miscellaneous Notes * Telephone Encounter - Argentina Howard - 01/17/2011 1038 EDT Spoke with Teri she says I am having alot going on right now and my PCP is working with me with some possible cardiac issues at this time and I would like to drop out of program until we get this all figured out. documented in this encounter Plan of Treatment Upcoming Encounters Date Type Department Care Team (Late st Contact Info) Description 12/29/2024 10:20 EST Office Visit [facility] Rheumatology & Immunology - [address] [phone] Micaela Hoff MD 111 [facility], [address] [place] [phone] documented as of this encounter Visit Diagnoses Not on filedocumented in this encounter Care Teams Ladies Underwear Operator Relationship Specialty Start Date End Date Ladonna Maurer PA [address] [place] [id number] PCP - General 05/20/10 06/02/11 documented as of this encounter
--- OUTSIDE RECORDS SUMMARY | 2024-06-10 18:48 | XMS_ITS | Encounter Summary ---
Author Organization [facility] Address [address] [place] [address] Care Team Providers Care Sales Consultant Residential Manager Name Role Phone Ladonna Maurer Primary Care Provider [phone] Encounter Details Date Type Department Care Team (Late st Contact Info) Description 01/25/2008 Results Only [facility] Obstetrics & Midwifery - [address] [phone] Makeda Lucas MD [address] [place] [address] 4 [place] [phone] Social History Tobacco Use Types Packs/Day Years Used Date Smoking Tobacco: Never Assessed Sex and Gender Information Value Date Recorded Sex Assigned at Not on file Gender Identity Not on file Sexual Orientation Not on file documented as of this encounter Plan of Treatment Upcoming Encounters Date Type Department Care Team (Late st Contact Info) Description 12/29/2024 10:20 EST Office Visit [facility] Rheumatology & Immunology - [address] [phone] Micaela Hoff MD [address] [place] [phone] documented as of this encounter Procedures Procedure Name Priority Date/Time Associated Diagnosis Comments GLUCOSE-1HR GESTATIONAL SCREEN Routine 01/25/2008 17:45 EDT COMPLETE BLOOD COUNT Routine 01/25/2008 17:45 EDT documented in this encounter Results * GLUCOSE-1HR GESTATIONAL SCREEN (01/25/2008 17:45 EDT) Pathologist [facility] Glucose-1hr Gest Scn 95 50 - 135 mg/dl [facility] Comment: A one hour glucose greater than or equal to 135 mg/dl should be further evaluated with a formal three hour glucose tolerance test. Glucose Dose 50 g [facility] 01/25/2008 17:4 5 EDT 01/25/2008 17:47 EDT Makeda Lucas MD PACKAGES & DNA PROBE ORDERABLES Performing Organization Address City/[facility]/ZIP Co de Phone Number [facility] [address] [place] [address] * (ABNORMAL) HEMAGRAM (01/25/2008 17:45 EDT) Pathologist [facility] WBC 9.82 4.0 - 12.4 K/cmm [facility] RBC 3.63(L) 3.86 - 5.04 M/cmm [facility] Hemoglobin 10.7(L) 11.6 - 15.2 gm/dl [facility] HCT 30.7(L) 34.9 - 44.4 % [facility] MCV 85 81 - 98 fl [facility] MCH 29.6 26.7 - 33.3 pg [facility] MCHC 34.9 32.1 - 35.9 gm/dl [facility] PLT 255 141 - 320 K/cmm [facility] RDW-CV 12.7 11.7 - 14.6 % [facility] 01/25/2008 17:4 5 EDT 01/25/2008 17:47 EDT Makeda Lucas MD HEMATOLOGY & PF4 ORD ERABLES Performing Organization Address [facility]/ZIP Co de Phone Number [facility] [address] [place] [address] documented in this encounter Visit Diagnoses Not on filedocumented in this encounter Care Teams Sales Consultant Residential Manager Relationship Specialty Start Date End Date Ladonna Maurer PA [address] [place] [address] PCP - General 05/20/10 06/02/11 documented as of this encounter
--- OUTSIDE RECORDS SUMMARY | 2024-06-10 18:48 | XMS_ITS | Encounter Summary ---
Author Organization [facility] Address [address] [place] [address] Care Team Providers Care Branch Specialist Name Role Phone Ladonna Maurer Primary Care Provider [phone] Reason for Visit * Reason Onset Date Comments Prior Auth, Other (i.e. radiology, etc.) 010 Encounter Details Date Type Department Care Team (Late st Contact Info) Description 08/29/2010 Telephone [facility] GENERAL SURGERY [address] [place] [address] Skyler Blanco MD [address] [place] [phone] Prior Auth, Other (i.e. radiology, etc.) Social History Tobacco Use Types Packs/Day Years Used Date Smoking Tobacco: Never Assessed Sex and Gender Information Value Date Recorded Sex Assigned at Not on file Gender Identity Not on file Sexual Orientation Not on file documented as of this encounter Miscellaneous Notes * Telephone Encounter - Melodie Juárez - 08/29/2010 1514 EDT DOS - 09/03/2010 - CPT 44860 - Gerd Morbid Obesity Pre-op - [employer] - Elizabeth PA documented in this encounter Plan of Treatment Upcoming Encounters Date Type Department Care Team (Late st Contact Info) Description 12/29/2024 10:20 EST Office Visit [facility] Rheumatology & Immunology - [address] [address] Micaela Hoff MD [address] [place] [address], [address] [place] [phone] documented as of this encounter Visit Diagnoses Not on filedocumented in this encounter Care Teams Branch Specialist Relationship Specialty Start Date End Date Ladonna Maurer PA [address] [place] [address] PCP - General 05/20/10 06/02/11 documented as of this encounter
--- OUTSIDE RECORDS SUMMARY | 2024-06-10 18:48 | XMS_ITS | Encounter Summary ---
Author Organization [facility] Address [address] [place] [address] Care Team Providers Care Shipwright Name Role Phone Ladonna Maurer Primary Care Provider [phone] Encounter Details Date Type Department Care Team (Latest Contact Info) Description 08/07/2010 10:00 EDT - 08/07/2010 23:59 EDT Hospital Encounter [facility] [address] [place] [address] Skyler Blanco MD [address] [place] [phone] Discharge Disposition: Auto Discharge Social History Tobacco [...] Take 50 mcg by mouth daily. 01/23/2011 varenicline (CHANTIX) 1 mg tablet Take 1 mg by mouth 2 times daily. 08/29/2010 documented as of this encounter Discharge Disposition Disposition Code Departure Means Destination Auto Discharge Home documented in this encounter Plan of Treatment Upcoming Encounters Date Type Department Care Team (Late st Contact Info) Description 12/29/2024 10:20 EST Office Visit [facility] Rheumatology & Immunology - [address] [phone] Micaela Hoff MD [address] [facility], [address] [place] [address] documented as of this encounter Visit Diagnoses Not on filedocumented in this encounter Care Teams Shipwright Relationship Specialty Start Date End Date Ladonna Maurer PA [address] [place] [id number] PCP - General 05/20/10 06/02/11 documented as of this encounter
--- OUTSIDE RECORDS SUMMARY | 2024-06-10 18:48 | XMS_ITS | Encounter Summary ---
Author Organization [facility] Address [address] [place] [address] Care Team Providers Care Meteorology Teacher Name Role Phone Unavailable Primary Care Provider Unavailabl e Encounter Details Date Type Department Care Team (Latest Contact Info) Description 02/22/2008 14:29 EDT Hospital Encounter [address] [address] Shanique Eagle MD [address] [phone] Discharge Disposition: Auto Discharge Social History Tobacco [...] [facility] Rheumatology & Immunology - [address] [address] Micaela Hoff MD [address] [place] [address], [address] [place] [phone] documented as of this encounter Procedures Procedure Name Priority Date/Time Associated Diagnosis Comments ASSISTED FOLLOW-UP 02/22/2008 16:21 EDT documented in this encounter Results * ASSISTED FOLLOW-UP (02/22/2008 16:21 EDT) Anatomical Region Laterality Modality Other 02/22/2008 16:2 1 EDT Narrative 04/15/2009 13:51 EDT FOLLOW UP,06582/GROWTH/UTERINE SIZE/DATES MISMATCH Please refer to the separate [facility] report. ??Contact Maternal Medicine. Procedure Note Kenton Parrish MD - 04/15/2009 FOLLOW UP,21771/GROWTH/UTERINE SIZE/DATES MISMATCH Please refer to the separate [facility] report. Contact Maternal Medicine. Magda Tejada MD IMG [facility] ORDERABLE S documented in this encounter Visit Diagnoses Not on filedocumented in this encounter
--- OUTSIDE RECORDS SUMMARY | 2024-06-10 18:48 | XMS_ITS | Encounter Summary ---
Author Organization [facility] Address [address] [place] [address] Care Team Providers Care Ur Coordinator Name Role Phone Ladonna Maurer Primary Care Provider [phone] Reason for Visit * Reason Comments Obesity Encounter Details Date Type Department Care Team (Late st Contact Info) Description 10/10/2010 11:00 EST Office Visit [facility] Bariatric Surgery - [place] [address] [place], [place] [phone] Skyler Blanco MD [address] [place] [address] Morbid obesity ([facility]) (Primary Dx) Social History Tobacco Use Types Packs/Day Years Used Date Smoking Tobacco: Never Assessed Sex and Gender Information Value Date Recorded Sex Assigned at Not on file Gender Identity Not on file Sexual Orientation Not on file documented as of this encounter Last Filed Vital Signs Vital Sign Reading Time Taken Comments Blood Pressure 120/86 10/10/2010 1117 EST Pulse - - Temperature - - Respiratory Rate - - Oxygen Saturation - - Inhaled Oxygen Concentration - - Weight 114.5 kg (252 lb 6.4 oz) 10/10/2010 1117 EST Height 169.3 cm (5' 6.65) 10/10/2010 1117 EST Body Mass Index 39.94 10/10/2010 1117 EST documented in this encounter Progress Notes * Harjinder Cannon - 10/10/2010 1154 EST PRE OP NUTRITION FOLLOW UP NOTE Bariatric Clinic Nutrition Pre-op Visit Visit Number: Desired surgery: Lap Band Subjective: Food logs: Yes, has been eating about 2000 calories most days but has been eating high calorie,highfat foods on some days. Meal pattern: Snacks all day on most days Average caloric intake:2000 on most days but up to 4000 on some days Meal composition: Oatmeal, Sushi, Cheese, Protein bar, Crackers, Pop tarts, cookie, cocoa, bread, cheese, brazilian fries with gravy and cheese Snacking:yes, crackers, chips, cookies etc Exercise: No in last month, busy and stressed Objective: Weight: 114.4 kg(252 lbs 6.4 oz) Weight loss from last visit: +2.2 lbs Total weight loss: Weight loss goal: None Approximately 12 to 13 lbs Surgery Date: Significant Medications and Supplements:N/A Assessment: Patient has made poor progress in making lifestyle changes Comments: Has been grazing all day, not exercising and not making healthy choices at meals and snacks. Plan: Diet Goals: Decrease intake of high-calorie beverages, Decrease intake of sweets, Decrease intake of high-fat items, Include protein at least 3 times a day, Keep food records, Eat more slowly and Increase fruit and vegetables. Chew each bite 20 times. Eat three meals a day and have protein, fruit or vegetables for snacks. Exercise Goals: Exercise on treadmill daily Weight Loss Goal: Approximately 1 to 2 lbs a week Weight Loss Remaining to Goal: Approximately 12 to 13 lbs Reviewed: Food/Activity Record Next Visit: Monthly Pre-op follow-up visit Harjinder Cannon RD,CD * Skyler Blanco MD - 10/10/2010 1132 EST Started on nexium told to avoid all nsaids EGD negative for metaplasia and h pylori- did have ulcerand erosion in esophagus documented in this encounter Miscellaneous Notes * Scanned Note-Null - Apiculture Teacher, Scan - 09/27/2011 1201 EST documented in this encounter Plan of Treatment Upcoming Encounters Date Type Department Care Team (Late st Contact Info) Description 12/29/2024 10:20 EST Office Visit [facility] Rheumatology & Immunology - [facility] [address] [place] [address] Micaela Hoff MD [address] [facility], [address] [place] [phone] documented as of this encounter Visit Diagnoses Diagnosis Morbid obesity ([facility])- Primary Morbid obesity documented in this encounter Discontinued Medications Medication Sig Discontinue Reason Start Date End Da te ibuprofen (MOTRIN) 200 mg tablet Take 200 mg by mouth every 6 hours as needed. Patient Stopped Taking 10/10/2010 documented as of this encounter Historical Medications * This list may reflect changes made after this encounter. Medication Sig Dispensed Refills Start Date End Date alprazolam (XANAX) 0.25 mg tablet Take 0.25 mg by mouth 3 times daily as needed. 10/10/2010 11/27/2010 esomeprazole (NEXIUM) 40 mg capsule Take 40 mg by mouth every morning before breakfast. 07/14/2011 added in this encounter Care Teams Ur Coordinator Relationship Specialty Start Date End Date Ladonna Maurer PA [address] [place] [id number] PCP - General 05/20/10 06/02/11 documented as of this encounter
--- OUTSIDE RECORDS SUMMARY | 2024-06-10 18:48 | XMS_ITS | Encounter Summary ---
Author Organization [facility] Address [address] [place] [address] Care Team Providers Care Aviation Electronic Warfare Operator Name Role Phone Unavailable Primary Care Provider Unavailabl e Encounter Details Date Type Department Care Team (Latest Contact Info) Description 01/06/2008 15:48 EST Hospital Encounter [address] [address] Kenton Parrish MD Discharge Disposition: Auto Discharge [...] / [facility] Rheumatology & Immunology - [address] [phone] Micaela Hoff MD 111 [facility], [address] [place] [phone] documented as of this encounter Visit Diagnoses Not on filedocumented in this encounter
--- OUTSIDE RECORDS SUMMARY | 2024-06-10 18:48 | XMS_ITS | Encounter Summary ---
Author Organization [facility] Address [address] [place] [address] Care Team Providers Care Automatic Pattern Edger Name Role Phone Ladonna Maurer Primary Care Provider [phone] Reason for Visit * Reason Comments Obesity Encounter Details Date Type Department Care Team (Late st Contact Info) Description 12/25/2010 8:30 EST Nutrition [facility] Bariatric Surgery - [place] [address] [place] [address] Hypothyroid; Morbid obesity ([facility] TAMMY (obstructive sleep apnea) Social History Tobacco Use Types Packs/Day Years [...] - Inhaled Oxygen Concentration - - Weight 109.6 kg (241 lb 9.6 oz) 12/25/2010 0814 EST Height 169.3 cm (5' 6.65) 12/25/2010 0814 EST Body Mass Index 38.23 12/25/2010 0814 EST documented in this encounter Progress Notes * Bia Neal RD - 12/25/2010 1205 EST Bariatric Clinic Nutrition Class - Post Operative Diet Visit #: 5 Weight : 109.589 kg (241 lb 9.6 oz), Change in Weight: -3.2 lb from last visit, - 8.4 lb overall Goal Weight: 12 lb Desired Surgery:LapBand Patient attended class on The post operative diet after bariatric surgery. Topics discussed: Diet while in hospital, Diet Progression (Liquids, Blended, Soft Solids, Solids), Portion Control, Importance of Excercise, Importance of Food Diary and Recommended Protein Supplements Education was provided via slides, verbal instruction, samples, and written materials. Homework assignment(s) explained to patient and patient instructed to return them at the next visit. Patient completed post class Quiz with a score of 100%. documented in this encounter Miscellaneous Notes * Scanned Note-Null - Configuration Management Architect, Scan - 10/03/2011 1046 EST documented in this encounter Plan of Treatment Upcoming Encounters Date Type Department Care Team (Late st Contact Info) Description 12/29/2024 10:20 EST Office Visit [facility] Rheumatology & Immunology - [address] [phone] Micaela Hoff MD [address] [facility], [address] [place] [phone] documented as of this encounter Visit Diagnoses Diagnosis Hypothyroid Unspecified hypothyroidism Morbid obesity ([facility]) Morbid obesity TAMMY (obstructive sleep apnea) Obstructive sleep apnea (adult) (pediatric) documented in this encounter Care Teams Automatic Pattern Edger Relationship Specialty Start Date End Date Ladonna Maurer PA [address] [place] [id number] PCP - General 05/20/10 06/02/11 documented as of this encounter
--- OUTSIDE RECORDS SUMMARY | 2024-06-10 18:48 | XMS_ITS | Encounter Summary ---
Author Organization [facility] Address [address] [place] [address] Care Team Providers Care Sizing Sponger Name Role Phone Unavailable Primary Care Provider Unavailabl e Encounter Details Date Type Department Care Team (Latest Contact Info) Description 04/20/2008 19:02 EDT - 04/23/2008 11:59 EDT Hospital Encounter [facility] Mother/Baby Unit [address] [place], [place] [address] Jameson Logan [address] [phone] Linda Bustillos MD Discharge Disposition: Home-Health Care Svc Social History Tobacco Use Types Packs/Day Years Used Date Smoking Tobacco: Never Assessed Sex and Gender Information Value Date Recorded Sex Assigned at Not on file Gender Identity Not on file Sexual Orientation Not on file documented as of this encounter Discharge Disposition Disposition Code Departure Means Destination Home-Health Care Svc documented in this encounter Plan of Treatment Upcoming Encounters Date Type Department Care Team (Late st Contact Info) Description 12/29/2024 10:20 EST Office Visit [facility] Rheumatology & Immunology - [facility] [address] [place], [place] [phone] Micaela Hoff MD [address] [facility], [address] [place] [phone] documented as of this encounter Procedures Procedure Name Priority Date/Time Associated Diagnosis Comments BLOOD GAS, G3 ISTAT Routine 04/21/2008 8:25 EDT BLOOD GAS, G3 ISTAT Routine 04/21/2008 8:10 EDT SURGICAL PATHOLOGY Routine 04/21/2008 0:00 EDT COMPLETE BLOOD COUNT Routine 04/20/2008 23:35 EDT documented in this encounter Results * (ABNORMAL) BLOOD GAS, G3 ISTAT (04/21/2008 8:25 EDT) pH, i-STAT 7.24(L) 7.35 - 7.45 [facility] pCO2, i-STAT 52(H) 35 - 45 mmHg [facility] pO2, i-STAT 18(L) 85 - 100 mmHg [facility] TCO2, i-STAT 24 mEq/L [facility] O2 Saturation 21 % [facility] Base Deficit, i-STAT 6 [facility] Sample Type ARTERIAL Cord [facility] electric meter installer [place] [id number] Test performed by Chemistry [facility] 04/21/2008 8:25 EDT 04/21/2008 8:30 EDT Newton Lucas MD CHEMISTRY & BLOOD GA S ORDERABLES [facility] [address] [place] [address] * (ABNORMAL) BLOOD GAS, G3 ISTAT (04/21/2008 8:10 EDT) pH, i-STAT 7.27(L) 7.35 - 7.45 [facility] pCO2, i-STAT 45 35 - 45 mmHg [facility] pO2, i-STAT 27(L) 85 - 100 mmHg [facility] TCO2, i-STAT 22 mEq/L [facility] O2 Saturation 41 % [facility] Base Deficit, i-STAT 6 [facility] Sample Type Venous specimen. Cord [facility] electric meter installer [place] [id number] J[facility] T[facility]ER[facility] 04/21/2008 8:10 EDT 04/21/2008 8:59 EDT Newton Lucas MD CHEMISTRY & BLOOD GA S ORDERABLES [facility] [address] [place] [address] * SURGICAL PATHOLOGY (04/21/2008 0:00 EDT) Pathology Report: SURGICAL PATHOLOGY REPORT Reports generated via electronic interface contain original data; however they are lacking the format of the original report. Caution should be taken when reading/interpretin g unformatted reports. Name: ? TERI CROWE ? Accession #: ? [id number] ? : ? 1980 (Age: 28) ??F ? Collect Date: ? 04/21/2008 ? Location: ? SB[facility] ? Receive Date: ? 04/21/2008 ? Provider: JAMESON LOGAN MD Copy to: NEWTON BUI MD ? Final Pathologic Diagnosis: ? Term sanford placenta: 1. ?Umbilical cord with acute funisitis and meconium staining. 2. ? membranes with acute chorioamnionitis and meconium staining. 3. ? Placenta with acute inflammation of chorionic plate. Document reviewed and electronically signed by: Yolie Smallwood MD Report ??Date: 04/24/2008 12:56 By the signature above, the attending physician certifies that he/she has personally conducted a gross and/or microscopic examination of the described specimens and rendered or confirmed the above diagnosis. Specimen(s) Received: ? Placenta Clinical History: ? @ 38 wks gest. (H/O 20 week loss) ??Labor induction for non-reasssuring fetus status elevated temp on labor, ??concern for chorio Gross Description: ? Received fresh labelled Rachael is a 546 gram, 23.0 x 14.0 x 2.0 to 3.0 cm zuluaga shaped sanford placenta with attached membranes and umbilical cord as well as a detached segment of umbilical cord. ??The -pink, translucent membranes insert marginally and are focally remarkable for green- discoloration (1.8 x 0.6 cm area). ??The site of rupture is located 6.0 cm from the placental margin. ??Edematous and slightly stained yellow-green, the 23.0 cm in length by 1.5 cm in diameter attached umbilical cord inserts 6.0 cm from the placental margin. ??No true or false knots are present and the cut surfaces reveal a tri-vessel architecture. ??An additional 26.0 cm segment of umbilical cord is also received detached. ??Arborized by medium caliber vasculature, the surface is yang-blue, smooth and glistening. ??A peripheral rim of fibrin deposition is noted. ??The cotyledons appear intact and display a minimal amount of adherent clotted blood along with patchy calcifications. ??The cut surfaces reveal spongy deep red parenchyma devoid of lesion. ??Escrow Assistant sections are submitted as follows: BLOCK BOND A1 ?Escrow Assistant proximal and distal umbilical cord A2 ?Membrane rolls to include focal green discoloration A3, A4 ?Full thickness central placenta (A. Natividad)/mpl End of Report [facility] 04/21/2008 04/21/2008 9:4 9 EDT Jameson Logan PATHOLOGY ORDERABLES [facility] [address] [place] [address] * (ABNORMAL) HEMAGRAM (04/20/2008 23:35 EDT) WBC 12.00 4.0 - 12.4 K/cmm [facility] RBC 4.23 3.86 - 5.04 M/cmm [facility] Hemoglobin 11.9 11.6 - 15.2 gm/dl [facility] HCT 34.5(L) 34.9 - 44.4 % [facility] MCV 82 81 - 98 fl [facility] MCH 28.2 26.7 - 33.3 pg [facility] MCHC 34.5 32.1 - 35.9 gm/dl [facility] PLT 270 141 - 320 K/cmm [facility] RDW-CV 14.7(H) 11.7 - 14.6 % [facility] 04/20/2008 23:3 5 EDT 04/20/2008 23:46 EDT Newton Lucas MD HEMATOLOGY & PF4 ORD ERABLES [facility] [address] [place] [address] documented in this encounter Visit Diagnoses Not on filedocumented in this encounter
--- OUTSIDE RECORDS SUMMARY | 2024-06-10 18:48 | XMS_ITS | Encounter Summary ---
Author Organization [facility] Address [address] [place] [address] Care Team Providers Care Engineering Design Supervisor Name Role Phone Unavailable Primary Care Provider Unavailabl e Encounter Details Date Type Department Care Team (Late st Contact Info) Description 12/21/2007 14:27 EST Hospital Encounter [address] [address] Makeda Lucas MD [address] [place] [address] [address] [place] [phone] Discharge Disposition: Auto Discharge Social History Tobacco [...] 12/29/2024 10:20 EST Office Visit [facility] Rheumatology & Immunology [address] [phone] Micaela Hoff MD [address] [place] [address] 5 [place] [phone] documented as of this encounter Procedures Procedure Name Priority Date/Time Associated Diagnosis Comments [facility] CERVICAL LENGTH 12/21/2007 1 6:15 EST documented in this encounter Results * [facility] CERVICAL LENGTH (12/21/2007 16:15 EST) Anatomical Region Laterality Modality Other 12/21/2007 16:1 5 EST Narrative 04/23/2009 4:28 EDT TRANSVAGINAL SCAN/CERVICAL LENGTH Please refer to the separate [facility] report. ??Contact Maternal Medicine. Procedure Note Shanique Eagle MD - 04/23/2009 TRANSVAGINAL SCAN/CERVICAL LENGTH Please refer to the separate [facility] report. Contact Maternal Medicine. Makeda Lucas MD [facility] ORDERABLE S documented in this encounter Visit Diagnoses Not on filedocumented in this encounter
--- OUTSIDE RECORDS SUMMARY | 2024-06-10 18:48 | XMS_ITS | Encounter Summary ---
Author Organization [facility] [place] [facility] Address [address] [place] [address] Care Team Providers Care Exterminator Helper Name Role Phone Unavailable Primary Care Provider Unavailabl e Encounter Details Date Type Department Care Team (Latest Contact Info) Description 10/07/2007 15:46 EST Hospital Encounter [address] [address] Kenton Parrish MD Discharge Disposition: Auto Discharge [...] [facility] Rheumatology & Immunology - [address] [phone] Micaela Hoff MD 111 [facility], [address] [place] [phone] documented as of this encounter Visit Diagnoses Not on filedocumented in this encounter
--- OUTSIDE RECORDS SUMMARY | 2024-06-10 18:48 | XMS_ITS | Encounter Summary ---
Author Organization [facility] Address [address] [place] [address] Care Team Providers Care Instrument And Control Service Person Name Role Phone Ladonna Maurer Primary Care Provider [phone] Reason for Referral * (Routine) - Closed Specialty Diagnoses / Procedures Referred By Contac t Referred To Contact Diagnoses Hypothyroid Morbid obesity (HCC-CMS) TAMMY (obstructive sleep apnea) Procedures HEMOGLOBIN A1C Kristine Escamilla, HUANG [address] [place] [address] [phone] Referral ID Status Reason Start Date Expiration Date Visits Re quested Visits Authorized [id number] Closed 11/27/2010 1 1 * (Routine) - Closed Specialty Diagnoses / Procedures Referred By Contac t Referred To Contact Diagnoses Hypothyroid Morbid obesity (HCC-CMS) TAMMY (obstructive sleep apnea) Procedures VITAMIN D (25,OH) Kristine Escamilla, HUANG [address] [place] [address] [phone] Referral ID Status Reason Start Date Expiration Date Visits Re quested Visits Authorized [id number] Closed 11/27/2010 1 1 * (Routine) - Closed Specialty Diagnoses / Procedures Referred By Contac t Referred To Contact Diagnoses Hypothyroid Morbid obesity (HCC-CMS) TAMMY (obstructive sleep apnea) Procedures LIVER FUNCTION TESTS Kristine Escamilla APRN [address] [place] [address] [phone] Referral ID Status Reason Start Date Expiration Date Visits Re quested Visits Authorized [id number] Closed 11/27/2010 1 1 * (Routine) - Closed Specialty Diagnoses / Procedures Referred By Contac t Referred To Contact Diagnoses Hypothyroid Morbid obesity (HCC-CMS) TAMMY (obstructive sleep apnea) Procedures HEMAGRAM Kristine Escamilla, SPOOL MAKER [address] [place] [address] [phone] Referral ID Status Reason Start Date Expiration Date Visits Re quested Visits Authorized [id number] Closed 11/27/2010 1 1 * (Routine) - Closed Specialty Diagnoses / Procedures Referred By Contac t Referred To Contact Diagnoses Hypothyroid Morbid obesity (HCC-CMS) TAMMY (obstructive sleep apnea) Procedures [facility] Kristine Escamilla, SPOOL MAKER [address] [place] [address] [phone] Referral ID Status Reason Start Date Expiration Date Visits Re quested Visits Authorized [id number] Closed 11/27/2010 1 1 Reason for Visit * Reason Comments Obesity pre op Encounter Details Date Type Department Care Team (Late st Contact Info) Description 11/27/2010 10:00 EST [facility] [place] [address] [place] [address] Kristine Escamilla, SPOOL MAKER[address] [phone] Hypothyroid; Morbid obesity (HCC-CMS); TAMMY (obstructive sleep apnea); GERD (gastroesophageal reflux disease); Esophageal erosions Social History Tobacco Use Types Packs/Day Years [...] Sign Reading Time Taken Comments Blood Pressure 124/80 11/27/2010926 EST Pulse 60 11/27/2010926 EST Temperature - - Respiratory Rate - - Oxygen Saturation - - Inhaled Oxygen Concentration - - Weight 111 kg (244 lb 12.8 oz) 11/27/2010926 E ST Height 169.3 cm (5' 6.65) 11/27/2010926 EST Body Mass Index 38.74 11/27/2010926 EST documented in this encounter Progress Notes * Bia Neal RD - 11/27/2010 1047 EST PRE OP NUTRITION FOLLOW UP NOTE [facility] Nutrition Pre-op Visit Visit Number: 4 Desired surgery: Lap Band Subjective: Decided she needed to get serious about weight loss! Still not exercising much Food logs: maintained by hand Meal pattern: 3 Average caloric intake: tries for 1800 lynette average Meal composition: low in fruit and veggies Snacking: Exercise: some treadmill but limited Objective: Weight: 244.8 lb Weight loss from last visit: -7.6 lb Total weight loss: Weight loss goal: -5.2 lb Approximately 12 lb Surgery Date: Significant Medications and Supplements: unknown Assessment: Patient has made progress towards lifestyle changes Comments: good weight loss this month with food logs showing adequate protein but low fruit and veggies. Encouraged patient increase to 2 each per day. Needs to restart exercise-patient understands and agrees Plan: Diet Goals: Keep food records, Eat more slowly and Increase fruit and vegetables Exercise Goals: Increase time to 150 min per week Weight Loss Goal: Approximately 12 lb Weight Loss Remaining to Goal: Approximately 6.8 lb Reviewed: Food/Activity Record Next Visit: Nutrition class scheduled on 12/04/2010 * Kristine Escamilla NP - 11/27/2010 1025 EST LADONNA MAURER [address] [facility] [address] [place] [address] Dear Erasto : Thank you for referring your patient, Teri Haro, for evaluation and consideration of laparoscopic adjustable gastric band surgery. Ms. Haro met with Dr. Blanco for his initial consultation on 07/12. She denies any changes in her medical history or medications since her previous visit. Ms. Haro is a 30 y.o. 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 Her comorbidities include gastroesophagitis, hypothyroid, obstructive sleep apnea and esophageal and duodenal erosion with gastritis. Review of Systems - Psychological ROS: on lexapro for anxiety but weaned off and doing well. Allergy and Immunology ROS: denies allergy to metal, latex, or iodine Hematological and Lymphatic ROS: negative for - bleeding problems, blood clots or blood transfusions Endocrine ROS: hypoactive thyroid on hormone. Breast ROS: negative for breast lumps Respiratory ROS: no cough, shortness of breath, or wheezing severe TAMMY with cpap ? setting Cardiovascular ROS: denies chest pain or previously diagnosed heart disease Gastrointestinal ROS: UGI demonstrates GERD without HH; EGD esophageal and dudenal erosion with gastritis. Since EGD has discontinued NSAIDS and on PPI. Pathology Report: A. Duodenum, biopsy: 1. Duodenal mucosa with [...] cells, intestinal metaplasia, or dysplasia is identified. Genito-Urinary ROS: pap 10/11 was neg. , NVD x 1 SAB x 1 at 20 wks. Musculoskeletal ROS: R knee pain from sports injury Neurological ROS: negative. Chronic ear, nose, and throat problems - will be on antibiotics and getting tubes in ears. Current outpatient prescriptions:esomeprazole (NEXIUM) 40 mg capsule, Take 40 mg by mouth every morning before breakfast., Disp: , Rfl: ; mometasone (NASONEX) 50 mcg/Actuation nasal spray, 2 Sprays by Nasal route daily., Disp: , Rfl: ; levothyroxine (SYNTHROID) 50 mcg tablet, Take 50 mcg by mouth daily., Disp: , Rfl: ; LEVONORGESTREL (MIRENA IU), by Intrauterine route. Every 5 years , Disp: , Rfl: Allergies include: Review of patient's allergies indicates no known allergies. Surgical Hx - vaginal removal of uterine septum family history includes Cancer in her maternal aunts; Diabetes in her father and maternal grandmother; Heart Disease in her maternal grandmother; Heart Disease (age of onset:50) in her father; High Blood Pressure in her mother; and Stroke in her mother. Patient reports that she has quit smoking. She has never used smokeless tobacco. She reports that she drinks alcohol. She reports that she does not currently use illicit drugs. 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 For exercise Teri is struggling with chronic pain of chronic sinus infection so hoping that with treatment she will be able to start exercising. . Teri met with our program stocking inspector for 30 minutes to review preoperative dietary recommendations.I did consult our stocking inspector following her visit with the patient and agree with her findings and recommendations. On physical examination today, her BP 124/80 Pulse 60 Ht 169.3 cm (66.65) Wt 111.041 kg (244lb 12.8 oz) and Body mass index is 38.74 kg/(m^2).. Also, on physical exam: Neck - supple, no significant adenopathy, thyroid exam: thyroid is normal in size without nodules or tenderness Chest - clear to auscultation, no wheezes, rales or rhonchi, symmetric air entry Heart - normal rate, regular rhythm, normal S1, S2, no murmurs, rubs, clicks or gallops Abdomen - soft, nontender, nondistended, no masses or organomegaly no abdominal bruits,no hernias noted, no skin rashes or lesions Musculoskeletal - no joint tenderness, deformity or swelling Extremities - peripheral pulses normal, no pedal edema, no clubbing or cyanosis Ms. Haro is an appropriate candidate for laparoscopic adjustable gastric band surgery with a BMI of37.5 and multiple life threatening comorbidities. We will need the following things in order to proceed with her evaluation: CPAP setting preop labs Have past labs sent I did spend over 50% of this 45 minute visit in discussion of possible short and meterman risks and complications of bariatric surgery as they pertain to her particular health profile. I also discussed the importance of exercise for weight loss and weight loss maintenance. If you have any questions or concerns regarding any information in this letter, please do not hesitate to contact me. Teri Haro will be returning to our office in a few weeks for continued medically supervised weight loss in preparation for surgery. Sincerely Yours, Kristine Escamilla NP CC: documented in this encounter H&P Notes * Inpatient, Physician - 12/19/2010 1605 EST documented in this encounter Plan of Treatment Upcoming Encounters Date Type Department Care Team (Late st Contact Info) Description 12/29/2024 10:20 EST [facility] - [address] [address] Micaela Hoff MD [address] [place] [address], [address] [place] [address] documented as of this encounter Results * HEMOGLOBIN A1C (11/27/2010 12:14 EST) Hemoglobin A1C 5.8 % [facility] [...] treatment. Est Avg Glucose 120 mg/dl [facility]ONI[facility]ER[facility] Comment:eAG represents the A 1c result expressed as average glucose in mg/dl. Blood specimen (specimen) 11/27/2010 12:14 EST 11/27/2010 12:16 EST Kristine Escamilla SPOOL MAKER CHEMISTRY & BLOOD GAS ORDERABLES [facility] [address] [place] [address] * VITAMIN D (25,OH) (11/27/2010 12:14 EST) 25OH Vitamin D Tot 14.8 ng/ml [facility] Comment: Reference Range: <10 ng/ml: Deficient 10-30 ng/ml: Insufficient 30-100 ng/ml: Sufficient >100 ng/ml: Toxic Blood specimen (specimen) 11/27/2010 12:14 EST 11/27/2010 12:16 EST Kristine Escamilla APRN CHEMISTRY & BLOOD GAS ORDERABLES Performing Organization Address [facility] de Phone Number [facility] [address] [place] [address] * LIVER FUNCTION TESTS (11/27/2010 12:14 EST) Albumin 4.5 3.4 - 4.9 g/dl [facility] Total Protein 7.4 6.5 - 8.3 g/dl [facility] Total Alkaline Phosphatase 52 38 - 126 U/L [facility] ALT 41 9 - 52 U/L [facility] AST 26 15 - 46 U/L [facility] Unconjugated Bilirubin 0.3 0.1 - 1.1 mg/dl [facility] Conjugated Bilirubin 0.0 0.0 - 0.3 mg/dl [facility] Bilirubin, Total <0.5 0.2 - 1.3 mg/dl [facility] Blood specimen (specimen) 11/27/2010 12:14 EST 11/27/2010 12:16 EST Kristine Escamilla APRN CHEMISTRY & BLOOD GAS ORDERABLES Performing Organization Address [facility] Co de Phone Number [facility] [address] [place] [address] * HEMAGRAM (11/27/2010 12:14 EST) Pathologist [facility] WBC 8.48 4.0 - 12.4 K/cmm [facility] RBC 4.78 3.86 - 5.04 M/cmm [facility] Hemoglobin 14.0 11.6 - 15.2 gm/dl [facility] HCT 39.5 34.9 - 44.4 % [facility] MCV 83 81 - 98 fl [facility] MCH 29.3 26.7 - 33.3 pg [facility] MCHC 35.4 32.1 - 35.9 gm/dl [facility] PLT 300 141 - 320 K/cmm [facility] RDW-CV 13.1 11.7 - 14.6 % [facility] Blood specimen (specimen) 11/27/2010 12:14 EST 11/27/2010 12:16 EST Kristine Escamilla APRN HEMATOLOGY & PF4 ORDERABLES Performing Organization Address [facility] Co de Phone Number [facility] [address] [place] [address] * CREATININE (11/27/2010 12:14 EST) Creatinine 0.86 0.7 - 1.5 mg/dl [facility] GFR, Calculated >60 ml/min/1.7 3m2 [facility] Blood specimen (specimen) 11/27/2010 12:14 EST 11/27/2010 12:16 EST Kristine Escamilla APRN CHEMISTRY & BLOOD GAS ORDERABLES Performing Organization Address City/[facility] de Phone Number [facility] [address] [place] [address] documented in this encounter Visit Diagnoses Diagnosis Hypothyroid Unspecified hypothyroidism Morbid obesity ([facility]) Morbid obesity TAMMY (obstructive sleep apnea) Obstructive sleep apnea (adult) (pediatric) GERD (gastroesophageal reflux disease) Esophageal reflux Esophageal erosions Other specified disorder of the esophagus documented in this encounter Discontinued Medications Medication Sig Discontinue Reason Start Date End Da te alprazolam (XANAX) 0.25 mg tablet Take 0.25 mg by mouth 3 times daily as needed. Patient Stopped Taking 10/10/2010 11/27/2010 escitalopram (LEXAPRO) 20 mg tablet Take 20 mg by mouth daily. Patient Stopped Taking 11/27/2010 MULTIVITAMIN ORAL Take by mouth daily. Patient Stopped Taking 08/29/2010 11/27/2010 documented as of this encounter Care Teams Instrument And Control Service Person Relationship Specialty Start Date End Date Ladonna Maurer PA [address] [place] [address] PCP - General 05/20/10 06/02/11 documented as of this encounter
--- OUTSIDE RECORDS SUMMARY | 2024-06-10 18:48 | XMS_ITS | Encounter Summary ---
Author Organization [facility] Address [address] [place] [address] Care Team Providers Care Blood Bank Business Manager Name Role Phone Ladonna Maurer Primary Care Provider [phone] Reason for Visit * Reason Comments New Patient Visit ekg and holter done Irregular Heart Beat started in November Dizziness a couple times per w [place] Fatigue Encounter Details Date Type Department Care Team (Late Contact Info) Description 02/06/2011 13:20 EDT Office Visit [facility] Cardiology - [place] [address] [place] [address] Jose Manuel Benjamin MD [address] [facility], Level 1 [place] [address] Palpitations; Murmur; Atypical chest pain Social History Tobacco Use Types Packs/Day Years [...] Sign Reading Time Taken Comments Blood Pressure 130/80 02/06/2011 1316 EDT Pulse 69 02/06/2011 1316 EDT Temperature - - Respiratory Rate - - Oxygen Saturation - - Inhaled Oxygen Concentration - - Weight 107.5 kg (237 lb) 02/06/2011 1316 EDT Height 167.6 cm (5' 6) 02/06/2011 1316 EDT Body Mass Index 38.25 02/06/2011 1316 EDT documented in this encounter Progress Notes * Jose Manuel Benjamin Jr., MD - 02/06/2011 1340 EDT This office note has been dictated. documented in this encounter Plan of Treatment Upcoming Encounters Date Type Department Care Team (Late st Contact Info) Description 12/29/2024 10:20 EST Office Visit [facility] Rheumatology & Immunology - [address] [address] Micaela Hoff MD [address] [place] [address], [address] [place] [phone] documented as of this encounter Procedures Procedure Name Priority Date/Time Associated Diagnosis Comments ECHOCARDIOGRAM Routine 02/11/2011 11:18 EDT Murmur Palpitations Atypical chest pain documented in this encounter Results * ECHOCARDIOGRAM (02/11/2011 11:18 EDT) Anatomical Region Laterality Modality Other 02/11/2011 11:1 8 EDT Narrative 02/11/2011 12:03 EDT Interpreting Group: [facility] [address] [place] [id number] *STUDY CONCLUSIONS* SUMMARY - ??Overall left ventricular systolic function was normal. Left ventricular ejection fraction was estimated in the range of 60 % to 65 %. There were no left ventricular regional wall motion abnormalities. - ??The estimated pulmonary artery systolic pressure was within the normal range. - ??There was no significant pericardial effusion. - ??There are no significant valvular abnormalities. *PATIENT PRESENTATION* Height: ? 66 in ( 168 cm ) S/D Pressure: Weight: ? 236.5 lb ( 107.5 kg ) BSA: ?2.15 m^2 Referring MD: ??Jose Manuel Benjamin MD Fellow: ?Nawaf Ma MD Aws Developer: ?? Genoveva Jackson [facility] Ordering MD: ?? Jose Manuel Benjamin MD Referring MD: ??Ladonna Maurer Attending MD: ??Jose Manuel Benjamin MD Admitting MD: ??Jose Manuel Benjamin MD *INDICATIONS AND HISTORY* DIAGNOSES SUPPORTING MEDICAL NECESSITY: 786.5 Chest pain *PROCEDURE DATA* PROCEDURE INFORMATION: A transthoracic complete 2D study was performed. Additional evaluation included M-mode, complete spectral Doppler, and color Doppler. This was a routine echocardiographic study. This study was interpreted by [facility]. The procedure was started at 07:30:39. The procedure ended at 08:05:46. Leatha 4 Image quality was fair. *CARDIAC ANATOMY* LEFT VENTRICLE: - ??Left ventricular size was normal. - ??Overall left ventricular systolic function was normal. - ??Left ventricular ejection fraction was estimated in the range of 60 % to 65 %. - ??There were no left ventricular regional wall motion abnormalities. - ??Left ventricular wall thickness was normal. RIGHT VENTRICLE: - ??Right ventricular size was normal. - ??Right ventricular systolic function was normal. LEFT ATRIUM: - ??Left atrial size was normal. RIGHT ATRIUM: - ??Right atrial size was normal. AORTIC VALVE: - ??The aortic valve was trileaflet. - ??Aortic valve thickness was normal. - ??There was normal aortic valve leaflet excursion. Doppler interpretation(s): - ??There was no significant aortic valve stenosis by color Doppler and spectral Doppler. - ??There was no significant aortic valvular regurgitation by color Doppler. MITRAL VALVE: - ??Mitral valve structure was normal. - ??There was normal mitral valve leaflet excursion. Doppler interpretation(s): - ??There was no significant mitral valve stenosis by color Doppler and spectral Doppler. - ??There was no significant mitral valvular regurgitation by color Doppler. PULMONIC VALVE: - ??The structure of the pulmonic valve appeared to be normal. Doppler interpretation(s): - ??There was no significant pulmonic valve stenosis by color Doppler and spectral Doppler. - ??There was no significant pulmonic regurgitation by color Doppler. TRICUSPID VALVE: - ??The tricuspid valve structure was normal. - ??Tricuspid leaflet excursion was normal. Doppler interpretation(s): - ??There was no significant tricuspid valve stenosis by color Doppler and spectral Doppler. - ??There was trivial tricuspid valvular regurgitation by color Doppler. PERICARDIUM: - ??There was no significant pericardial effusion. AORTA: - ??The aortic root was normal in size. - ??The size of the ascending aorta was normal. PULMONARY ARTERY: - ??The pulmonary artery was normal size. Doppler interpretation(s): - ??The estimated pulmonary artery systolic pressure was within the normal range. - ??Estimated peak pulmonary artery systolic pressure in the range of 20 mmHg to 25 mmHg. SYSTEMIC VEINS: - ??The inferior vena cava was normal. - ??Respirophasic inferior vena cava changes were normal. *MEASUREMENT TABLES* 2D measurements LEFT VENTRICLE ?NORMAL Single plane method of disks (4C) LV vol ed ? 79 ? cc ? <104ml W/<155 ml M LV vol es ? 24 ? cc ? <49 ml W/<58 ml M Stroke volume ? 55 ? cc ? 45 + or - 13ml LV EF ? 70 ? % ?>55 % LV vol index ed ? 37 ? cc/m^2 ?? -- LV vol index es ? 11 ? cc/m^2 ?? -- AORTA ? NORMAL AO root (root) ?28.7 ? mm ? <40 mm Ascending Ao ed ? 28 ? mm ? -- LEFT ATRIUM ? NORMAL LAD A-P es ?36 ? mm ? -- M-mode measurements LEFT VENTRICLE ?NORMAL LVID ed ? 53 ? mm ? <56mm LVID es ? 38 ? mm ? <40 mm FS ?28 ? % ?>29% IVS ed ?8 ?mm ? <11 mm LVPWT ed ?9 ?mm ? <11 mm LV mass ? 207.8 ?g ?<150 g W/<200 g M LV mass index ? 96.7 ? g/m^2 ?-- LV mass/height ?1.24 ? g/cm ? -- LV EF (Daronichsuzie) ? 54 ? % ?> 55 % Doppler measurements MITRAL VALVE ?NORMAL Peak E velocity ? 76 ? cm/sec ?? 62 + or - 14 cm/sec Peak A velocity ? 64 ? cm/sec ?? 49 + or - 14 cm/sec MV peak E/A ? 1.19 ?1.1-1.7 MV deceleration time ??165 ?msec ? 210 + or - 40 Peak gradient ? 2 ?mmHg ? -- Reviewed and signed by Jose Alfredo Fung MD Confirmed 11-Feb-2011 12:00:58 Procedure Note 02/11/2011 Interpreting Group: [facility] [address] [place] [address] *STUDY CONCLUSIONS* SUMMARY - Overall left ventricular systolic function was normal. Leftventricular ejection fraction was estimated in the range of 60 % to 65 %. There were no left ventricular regional wall motion abnormalities. - The estimated pulmonary artery systolic pressure was within thenormal range. - There was no significant pericardial effusion. - There are no significant valvular abnormalities. *PATIENT PRESENTATION* Height: 66 in ( 168 cm ) S/D Pressure: Weight: 236.5 lb ( 107.5 kg ) BSA: 2.15 m^2 Referring MD: Jose Manuel Benjamin MD Fellow: Nawaf Ma MD Aws Developer: Genoveva Jackson [facility] Ordering MD: Jose Manuel Benjamin MD Referring MD: Ladonna Maurer Attending MD: Jose Manuel Benjamin MD Admitting MD: Jose Manuel Benjamin MD *INDICATIONS AND HISTORY* DIAGNOSES SUPPORTING MEDICAL NECESSITY: 786.5 Chest pain *PROCEDURE DATA* PROCEDURE INFORMATION: A transthoracic complete 2D study was performed. Additional evaluation included M-mode, complete spectral Doppler, and color Doppler. This wasa routine echocardiographic study. [facility] The procedure was started at 07:30:39. The procedure ended at 08:05:46. Leatha 4 Image quality was fair. *CARDIAC ANATOMY* LEFT VENTRICLE: - Left ventricular size was normal. - Overall left ventricular systolic function was normal. - Left ventricular ejection fraction was estimated in the range of 60 %to 65 %. - There were no left ventricular regional wall motion abnormalities. - Left ventricular wall thickness was normal. RIGHT VENTRICLE: - Right ventricular size was normal. - Right ventricular systolic function was normal. LEFT ATRIUM: - Left atrial size was normal. RIGHT ATRIUM: - Right atrial size was normal. AORTIC VALVE: - The aortic valve was trileaflet. - Aortic valve thickness was normal. - There was normal aortic valve leaflet excursion. Doppler interpretation(s): - There was no significant aortic valve stenosis by color Doppler and spectral Doppler. - There was no significant aortic valvular regurgitation by colorDoppler. MITRAL VALVE: - Mitral valve structure was normal. - There was normal mitral valve leaflet excursion. Doppler interpretation(s): - There was no significant mitral valve stenosis by color Doppler and spectral Doppler. - There was no significant mitral valvular regurgitation by colorDoppler. PULMONIC VALVE: - The structure of the pulmonic valve appeared to be normal. Doppler interpretation(s): - There was no significant pulmonic valve stenosis by color Doppler and spectral Doppler. - There was no significant pulmonic regurgitation by color Doppler. TRICUSPID VALVE: - The tricuspid valve structure was normal. - Tricuspid leaflet excursion was normal. Doppler interpretation(s): - There was no significant tricuspid valve stenosis by color Dopplerand spectral Doppler. - There was trivial tricuspid valvular regurgitation by color Doppler. PERICARDIUM: - There was no significant pericardial effusion. AORTA: - The aortic root was normal in size. - The size of the ascending aorta was normal. PULMONARY ARTERY: - The pulmonary artery was normal size. Doppler interpretation(s): - The estimated pulmonary artery systolic pressure was within thenormal range. - Estimated peak pulmonary artery systolic pressure in the range of 20 mmHg to 25 mmHg. SYSTEMIC VEINS: - The inferior vena cava was normal. - Respirophasic inferior vena cava changes were normal. *MEASUREMENT TABLES* 2D measurements LEFT VENTRICLE NORMAL Single plane method of disks (4C) LV vol ed 79 cc <104ml W/<155 ml M LV vol es 24 cc <49 ml W/<58 ml M Stroke volume 55 cc 45 + or - 13ml LV EF 70 % >55 % LV vol index ed 37 cc/m^2 -- LV vol index es 11 cc/m^2 -- AORTA NORMAL AO root (root) 28.7 mm <40 mm Ascending Ao ed 28 mm -- LEFT ATRIUM NORMAL LAD A-P es 36 mm -- M-mode measurements LEFT VENTRICLE NORMAL LVID ed 53 mm <56mm LVID es 38 mm <40 mm FS 28 % >29% IVS ed 8 mm <11 mm LVPWT ed 9 mm <11 mm LV mass 207.8 g <150 g W/<200 g M LV mass index 96.7 g/m^2 -- LV mass/height 1.24 g/cm -- LV EF (Teichholz) 54 % > 55 % Doppler measurements MITRAL VALVE NORMAL Peak E velocity 76 cm/sec 62 + or - 14 cm/sec Peak A velocity 64 cm/sec 49 + or - 14 cm/sec MV peak E/A 1.19 1.1-1.7 MV deceleration time 165 msec 210 + or - 40 Peak gradient 2 mmHg -- Reviewed and signed by Jose Alfredo Fung MD Confirmed 11-Feb-2011 12:00:58 Jose Manuel Benjamin MD CARDIAC ECHO ORDERAB LES documented in this encounter Visit Diagnoses Diagnosis Palpitations Murmur Undiagnosed cardiac murmurs Atypical chest pain Other chest pain * Evaluation - Jose Manuel Benjamin Jr., MD - 02/07/2011 1112 EDT RE: NAME: TERI HARO : 1980 NEW PATIENT EVALUATION - 02/06/2011 Ladonna Maurer [address] [address] Dear Ms Maurer: Thank you for requesting me to render consultation on Teri Haro in regards to her palpitations and chest pain. History of Present Illness: Teri Haro is a 30-year-old female with no prior history of cardiovascular disease. Approximately two months ago she noted the onset of palpitations and chest pain. Her palpitations happen randomly throughout the day and may occur as much as 15 to 20 times daily. They are short lived and last less than 30 seconds. They can be associated with mild dizziness as well as possible shortness of breath. She has found no triggering or relieving factors for the palpitations. They are not associated with syncope or chest pain. She does have chest pain, which is separate from her palpitations; however, the pattern is similar in that these chest pains come out of the blue and have no relation to exertion. They are felt in the center of her chest and may last up to 20 to 30 seconds and then ami either rapidly or slowly, sometimes up to 20 minutes. These also are not associated with her palpitations and are not associated with any radiation of symptoms to her arm or jaw or nausea or diaphoresis. Past Medical History: 1. Mena's thyroiditis. 2. Depression. 3. Obesity. 4. Childhood murmur. 5. Obstructive sleep apnea. 6. History of tobacco use. Allergies: She has no known drug allergies. Medications: 1. Mirena IUD. 2. Vitamin D. 3. Esomeprazole 40 mg a day. 4. Levothyroxine 100 mcg a day. 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 She quit smoking several months ago. She does not abuse alcohol. She is and has a 3-year-old at home. Family History: There is no history of early coronary artery disease or sudden cardiac . Review of Systems: Negative for fevers, chills, nausea, vomiting or diarrhea. She does have multiple body aches and pains. She has fatigue that sometimes gets better on the increased doses of her Synthroid, but then resumes again about a week after her increased dose. She has had no changes in her hearing or vision. She does have cold and heat intolerance at extremes. On exam, she is an overweight female in no acute distress. Her weight is 237 pounds. Blood [id number]/80 and a pulse of 69. She has anicteric sclerae. She has moist mucous membranes with no exudates. Her neck is supple with good range of motion. There is thyromegaly bilaterally. She has no jugular venous distention. Her carotid upstrokes are 2+ bilaterally with no bruits detected. The lungs areclear to auscultation bilaterally. There is no tenderness of her chest. Heart is regular with normal S1 and S2. There are no murmurs, rubs or gallops detected. The point of maximal impulse is nondisplaced. There is no right ventricular heave. The abdomen is soft with active bowel sounds. There is no tenderness. There is no organomegaly detected. There are no bruits detected. The lower extremitiesare without any clubbing, cyanosis or pitting edema. There are 2+ pulses at dorsalis pedis and radial arteries bilaterally. Her last cholesterol check was in 2004, with an LDL of 78 and an HDL of 41. Assessment: Teri Haro is a 30-year-old female with palpitations and atypical chest pain. She hasno red flags of syncope or any typical features for ischemic chest pain. She also has minimal cardiovascular risk factors, including only recent smoking. Despite her obesity, she has none of the other risk factors such as hypertension, diabetes, or hyperlipidemia. A 24-hour Holter monitor was performed recently which showed no significant arrhythmias. Plan: At this point, I would only recommend demonstrating whether or not she has normal cardiac structure and function with an echocardiogram. If this is normal, no further workup necessary. There are no medical treatments that are indicated at this point. Thank you for allowing me to participate in the care of Teri Haro. I plan on following up with frieda needed. Sincerely, Electronically Signed by Jose Manuel Benjamin MD 02/07/2011 11:12 Jose Manuel eBnjamin MD - Jose Manuel Benjamin MD - [facility] Job ID: SM Doc ID: [id number] Ext Doc ID: [id number] cc: AUSTIN Silva documented in this encounter Discontinued Medications Medication Sig Discontinue Reason Start Date End Da te mometasone (NASONEX) 50 mcg/Actuation nasal spray 2 Sprays by Nasal route daily. Patient Stopped Taking 02/06/2011 documented as of this encounter Care Teams Blood Bank Business Manager Relationship Specialty Start Date End Date Ladonna Maurer PA [address] [place] [address] PCP - General 05/20/10 06/02/11 documented as of this encounter
--- OUTSIDE RECORDS SUMMARY | 2024-06-10 18:48 | XMS_ITS | Encounter Summary ---
Author Organization [facility] Address [address] [place] [address] Care Team Providers Care Aircraft Stress Analyst Name Role Phone Ladonna Maurer Primary Care Provider Yair Dow MD Primary Care Provider [phone] Unknown, Provider Primary Care Provider [phone] Ladonna Maurer Primary Care Provider [phone] Cara Arteaga MD Primary Care Provider Conor Angel MD Primary Care Provider [phone] None, Provider Primary Care Provider Kaylynn Pizarro MD Primary Care Provider [phone] Encounter Details Date Type Department Care Team (Late st Contact Info) Description 08/02/2010 Documentation Visit [facility] Bariatric Surgery - [place] [address] [place], [place] [id number] [address] Social History Tobacco Use Types Packs/Day Years [...] [facility] [address] [address] Micaela Hoff MD [address] [facility], [address] [place] [phone] documented as of this encounter Visit Diagnoses Not on filedocumented in this encounter Additional Health Concerns Infection Onset Date Last Indicated Resolved Time 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 Care Teams Aircraft Stress Analyst Relationship Specialty Start Date End Date Ladonna Maurer PA [address] [place] [address] PCP - General 05/20/10 06/02/11 Yair Dow MD [address] [place] [address] [phone] PCP - General 06/03/11 03/08/12 Unknown, Provider, PCP - General 03/09/12 05/11/12 Ladonna Maurer PA [address] [place] [address] PCP - General 05/12/12 01/24/13 Cara Arteaga MD [address] [place] [address] PCP - General 01/25/13 02/06/14 Conor Angel MD [address] [place] [phone] PCP - General 02/07/14 06/08/14 None, Provider PCP - General 06/09/14 03/01/15 Kaylynn Gimenez MD [address] [place] [phone] PCP - General 03/02/15 documented as of this encounter
--- OUTSIDE RECORDS SUMMARY | 2024-06-10 18:49 | XMS_ITS | Encounter Summary ---
Author Organization [facility] [place] [address] Care Team Providers Care Legal Archivist Name Role Phone Anuja Cai APRN Primary Care Provider [phone] Encounter Details Date Type Department Care Team ([facility] st Contact Info) Description 02/16/2024 11:00 AM EDT Office [place] [phone] Britt Zurita MD [facility] [address] Polyarthralgia Social History Tobacco Use Types Packs/Day Years Used Date Smoking Tobacco: Former Cigarettes 1 18 0 03/02/2002 - 03/02/2020 Smokeless Tobacco: Never Tobacco Cessation:Counseling Given: Not Answered Comments:vape Alcohol Use Standard Drinks/Week Comments Yes 3 (1 standard drink = 0.6 oz pur e alcohol) twice a month Sex and Gender Information Value Date Recorded Sex Assigned at Female 08/14/2021 10:55 AM EDT Gender Identity Female 08/14/2021 10:55 AM EDT Sexual Orientation Straight 08/14/2021 10 :55 AM EDT documented as of this encounter Last Filed Vital Signs Vital Sign Reading Time Taken Comments Blood Pressure 111/65 02/16/2024 10:41 AM EDT Pulse 65 02/16/2024 10:41 AM EDT Temperature 36.6 ??C (97.9 ??F) 02/16/2024 10:41 AM E DT Respiratory Rate 10 02/16/2024 10:41 AM EDT Oxygen Saturation 100% 02/16/2024 10:41 AM EDT Inhaled Oxygen Concentration - - Weight 88.2 kg (194 lb 6.4 oz) 02/16/2024 10:41 AM EDT Height - - Body Mass Index 30.45 01/26/2024 12:57 PM EDT documented in this encounter Progress Notes * Britt Zurita MD - 02/16/2024 11:00 AM EDT Rheumatology Outpatient Follow up Note PCP: Anuja Cai APRN Teri Smith is a 43 y.o. female who we are seeing for the continuing management of polyarthralgia. Rheum History: -Presented for evaluation of polyarthralgia in the setting of positive LIZZIE. -Longstanding polyarthralgia including shoulders, hips and most recently hands and the left foot. -Morning stiffness of around 1-2 hours and also numbness in the fingers sometimes. -Reported being photosensitive, and having dry eyes. -2 spontaneous abortions at the gestational age of 8 weeks and 20 weeks and apparently this was attributed to incompetent cervix. -Physical examination did not reveal any evidence of synovitis, rash, skin thickening, enthesitis or dactylitis. She was noted to have multiple tender points though. -Her previous labs showed mildly elevated rheumatoid factor, negative anti-CCP antibody, normal ESRand a positive LIZZIE in the titer of 1: 320 and a dense fine speckled pattern. Interval History: Patient reports sustaining an injury in her left wrist recently while working out. She reports thatshe has lost quite a bit of weight intentionally since last seen. She still feels fatigued and experiences dizziness multiple times in a day. She does not report much morning stiffness, rash or jointswelling/redness. ROS (positives in bold): Gen: No fevers, no chills, no night sweats Pulm: No SOB CV: No CP Abd: No abd pain, no nausea, no vomiting, no diarrhea MSK: see HPI Physical examination: BP 111/65 (BP Location (NBP): Right arm, Patient Position: Sitting, BP Cuff Sizes: Adult (25-34 cm)) Pulse 65 Temp 36.6 ??C (97.9 ??F) (Temporal) Resp 10 Wt 88.2 kg (194 lb 6.4 oz) SpO2 100% BMI 30.45 kg/m?? Gen: Well appearing, alert and oriented x 3, NAD Heart: Regular rate, no murmurs, rubs or gallops Lungs: Clear to auscultation b/l Abd: Soft, NT/ND, bowel sounds + Skin: Warm and dry, no rashes Joints: Shoulders: FROM, non-tender to palpation Elbows:FROM Wrists: FROM, no swelling, non-tender Hands: No synovitis, no MCP compression tenderness, full claw and fist Hips: FROM, no tenderness Knees: FROM, no effusion, no tenderness Ankles: FROM, non-tender, no effusion Feet: no MTP compression tenderness Assessment/Plan: Teri Smith is a 43 y.o. female with a past medical history of GERD, obstructive sleep apnea, hypothyroidism, prediabetes, IBS, and PTSD who is presenting for follow up of polyarthralgia in the setting of positive LIZZIE. Patient reports sustaining an injury in her left wrist recently while working out. She is followingup with orthopedics for the same. She reports that she has lost quite a bit of weight intentionallysince last seen. She still feels fatigued and experiences dizziness multiple times in a day. She does not report much morning stiffness, rash or joint swelling/redness. Lab work-up earlier showed negative LIZZIE (positive in past), mildly elevated C4, RF and CRP. At this time, patient's symptomatology is not suggestive of an inflammatory etiology. The overwhelming fatigue could be related to worsening of her obstructive sleep apnea and I advised her to get a repeat sleep study. This could also be related to Long COVID syndrome as the symptoms started around that time. I have considered other inflammatory diseases which could be contributing to this but the clinical presentation does not fit with those. Will check a chest x-ray today to evaluate for hilar lymphadenopathy. Follow-up in 6 months. Total time spent on counseling and coordination of care was 40 minutes. Britt Zurita MD [employer] [place], [address] documented in this encounter Plan of Treatment Upcoming Encounters Date Type Department Care Team (Late st Contact Info) Description 08/17/2024 12:00 PM EDT Office [place] [address] rBitt Zurita MD [facility] [place] [place] [address] documented as of this encounter Results * (ABNORMAL) XR Chest PA & Lateral (Generic) (02/16/2024 11:39 AM EDT) Anatomical Region Laterality Modality Chest N/A Digital Radiogra phy Impressions 02/16/2024 3:49 PM EDT UNEXPECTED FINDING of a small oval opacity in projection onto the left lower lung. This may be due to a superimposition artifact, a pulmonary nodule, or sclerotic osseous change. Recommend low-dose, noncontrast CT of the chest for further evaluation. No overt radiographic evidence of hilar lymphadenopathy. Thank you for letting us participate in the care of this patient. ??If you are a health care provider and have any questions regarding this report, please contact the number below. ??For patients who have questions please contact the health menagerie caretaker that requested your imaging first. ? Narrative 02/16/2024 3:49 PM EDT EXAMINATION: XR CHEST PA AND LATERAL (GENERIC) CLINICAL HISTORY: Evaluate for hilar lymphadenopathy M25.50, Pain in unspecified joint TECHNIQUE: PA and lateral views of the chest COMPARISON: None FINDINGS: Small oval opacity in projection onto the left lower lung. Lungs are otherwise clear. No pleural effusion. Normal size of the heart and normal width of the mediastinum. Mild degenerative changes of the spine. Resulting Agency Comment Unexpected Finding Britt Zurita MD IMG DX ORDERABLES documented in this encounter Visit Diagnoses Diagnosis Polyarthralgia Pain in joint, multiple sites Polyarthralgia Pain in joint, multiple sites documented in this encounter Care Teams Legal Archivist Relationship Specialty Start Date End Date Anuja Cai APRN [address] [place] [address] PCP - General Internal Medicine 07/25/21 documented as of this encounter
--- OUTSIDE RECORDS SUMMARY | 2024-06-10 18:49 | XMS_ITS | Encounter Summary ---
Author Organization [facility] Address [address] [place] [address] Care Team Providers Care Criminalist Name Role Phone Unavailable Primary Care Provider Unavailabl e Encounter Details Date Type Department Care Team (Late st Contact Info) Description 05/31/2004 8:51 EDT Hospital Encounter [facility] [address] [place] [address] Rehan Overton MD [address] [place] [phone] Social History Tobacco Use Types Packs/Day Years [...] Info) Description 12/29/2024 10:20 EST Office Visit [facility] Rheumatology & Immunology - [address] [address] Micaela Hoff MD [address] [facility], [address] [place] [phone] documented as of this encounter Visit Diagnoses Not on filedocumented in this encounter Additional Health Concerns Infection Onset Date Last Indicated Resolved Time 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
--- OUTSIDE RECORDS SUMMARY | 2024-06-10 18:49 | XMS_ITS | Encounter Summary ---
Author Organization [facility] Address [address] [place] [address] Care Team Providers Care Artificial Inseminator Name Role Phone Unavailable Primary Care Provider Unavailabl e Encounter Details Date Type Department Care Team (Latest Contact Info) Description 09/25/2004 6:47 EST - 09/25/2004 11:59 EST Hospital Encounter [facility] Perioperative Services- [address] [address] Robin Garay MD PhD Discharge Disposition: Home or Self Care Social [...] 12/29/2024 10:20 EST Office Visit [facility] Rheumatology & Immunology - [address] [phone] Micaela Hoff MD [address] [place] [address], [address] [place] [address] documented as of this encounter Procedures Procedure Name Priority Date/Time Associated Diagnosis Comments TEST, URINE Routine 09/25/2004 7:28 EST documented in this encounter Results * TEST, URINE (09/25/2004 7:28 EST) Result-Pregnanc y Test, Ur Neg [facility] Specific [place] 1.020 [facility] 09/25/2004 7:28 EST 09/25/2004 7:29 EST Robin Garay MD PhD URINALYSIS ORDER HEATH [facility] [address] [place] [address] documented in this encounter Visit Diagnoses Not on filedocumented in this encounter
--- OUTSIDE RECORDS SUMMARY | 2024-06-10 18:49 | XMS_ITS | Encounter Summary ---
Author Organization Health system Address [address] [place] [address] Care Team Providers Care Call Center Specialist Name Role Phone Unavailable Primary Care Provider Unavailabl e Encounter Details Date Type Department Care Team (Latest Contact Info) Description 12/14/2005 10:26 EST - 12/14/2005 11:59 EST Hospital Encounter [facility] Emergency Department - [address] [address] Emergency, MD Fede Discharge Disposition: Home or [...] [facility] Rheumatology & Immunology - [address] [address] Micaela Hoff MD [address] [place] [address], [address] [place] [address] documented as of this encounter Procedures Procedure Name Priority Date/Time Associated Diagnosis Comments URINE SEDIMENT (MICRO) WITHOUT REFLEX TO CULTURE Routine 12/14/2005 10:50 EST URINE CULTURE IF POSITIVE Routine 12/14/2005 10:50 EST BACTERIAL CULTURE, URINE Routine 12/14/2005 10:50 EST documented in this encounter Results * BACTERIAL CULTURE, URINE (12/14/2005 10:50 EST) Specimen Description Urine [facility] Result No growth [facility] Report Status Final [id number] [facility] 12/14/2005 10:5 0 EST 12/14/2005 12:59 EST Default Emergency MICROBIOLOGY - GENE RAL ORDERABLES Performing Organization Address [facility] de Phone Number [facility] [address] [place] [address] * (ABNORMAL) URINE MICROSCOPIC ONLY (12/14/2005 10:50 EST) WBC, UA >50 0 - 5 /HPF [facility] RBC, UA >50 0 - 5 /HPF [facility] Squam Epithel, UA Few(A) NS /HPF [facility] Renal Epithel, UA None seen NS /HPF [facility] Bacteria, UA Rare(A) NS /[facility] Crystals, UA None seen /HPF [facility] Hyaline Casts, UA None seen /LPF [facility] UA Comment Microscopic results are unreliable on urines unrefrig >2hrs or refrig >8hrs. [facility] 12/14/2005 10:5 0 EST 12/14/2005 10:52 EST Default Emergency URINALYSIS ORDERABL ES Performing Organization Address [facility] de Phone Number [facility] [address] [place] [address] * CULTURE IF UA POSITIVE (12/14/2005 10:50 EST) Culture if Indicated Culture indicated by urinalysis results. [facility] 12/14/2005 10:5 0 EST 12/14/2005 10:52 EST Default Emergency MICROBIOLOGY - GENE RAL ORDERABLES [facility] [address] [place] [address] documented in this encounter Visit Diagnoses Not on filedocumented in this encounter
--- OUTSIDE RECORDS SUMMARY | 2024-06-10 18:49 | XMS_ITS | Encounter Summary ---
Author Organization [facility] Address [address] [place] [address] Care Team Providers Care Tree Loader Meat Name Role Phone Unavailable Primary Care Provider Unavailabl e Encounter Details Date Type Department Care Team (Late st Contact Info) Description 03/06/2004 17:51 EDT Hospital Encounter [facility] - Other [address] [place], [place] [phone] Gustavo Smith MD [address] [phone] Social History Tobacco Use Types Packs/Day Years [...] [facility] Rheumatology & Immunology - [facility] [place] [address] [place], [place] [phone] Micaela Hoff MD 111 [facility], [facility], [address] [place] [address] (work) documented as of this encounter Visit Diagnoses Not on filedocumented in this encounter Additional Health Concerns Infection Onset Date Last Indicated Resolved Time 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
--- OUTSIDE RECORDS SUMMARY | 2024-06-10 18:49 | XMS_ITS | Encounter Summary ---
Author Organization [facility] Address [address] [place] [address] Care Team Providers Care Cycle Specialist Name Role Phone Ladonna Maurer Primary Care Provider [phone] Encounter Details Date Type Department Care Team (Late st Contact Info) Description 05/31/2004 Results Only [facility] - Maple conversion [address] [place] [address] Rehan Overton MD [address] [phone] Social History Tobacco Use Types Packs/Day Years Used Date Smoking Tobacco: Never Assessed Sex and Gender Information Value Date Recorded Sex Assigned at Not on file Gender Identity Not on file Sexual Orientation Not on file documented as of this encounter Plan of Treatment Upcoming Encounters Date Type Department Care Team (Late Contact Info) Description 12/29/2024 10:20 EST Office Visit [facility] Rheumatology & Immunology - [facility] [address] [place], [place] [address] Micaela Hoff MD 111 [facility], [address] [place] [phone] documented as of this encounter Procedures Procedure Name Priority Date/Time Associated Diagnosis Comments QUANT BETA HCG, Routine 05/31/2004 8:52 EDT documented in this encounter Results * HCG (05/31/2004 8:52 EDT) HCG <4 <4 mIU/ml [facility] Comment: Reference Range: Positive = >10 Borderline = 4-10 recommend repeat. Negative = <4 05/31/2004 8:52 EDT 05/31/2004 8:56 EDT Rehan Overton MD CHEMISTRY & BLOOD GA S ORDERABLES Performing Organization Address City/State/[facility] Co de Phone Number [facility] [address] [place] [address] documented in this encounter Visit Diagnoses Not on filedocumented in this encounter Care Teams Cycle Specialist Relationship Specialty Start Date End Date Ladonna Maurer PA [address] [place] [address] PCP - General 05/20/10 06/02/11 documented as of this encounter
--- OUTSIDE RECORDS SUMMARY | 2024-06-10 18:49 | XMS_ITS | Encounter Summary ---
Author Organization [facility] Address [address] [place] [address] Care Team Providers Care Office Clinician Name Role Phone Ladonna Maurer Primary Care Provider [phone] Yair Dow MD Primary Care Provider Encounter Details Date Type Department Care Team (Late st Contact Info) Description 10/01/2004 Before PRISM Converted Visit ([facility]) [facility] - Maple conversion [address] [place] [address] Yeimy Solorio, PhD [address] [place] [address] Social History Tobacco Use Types Packs/Day Years Used Date Smoking Tobacco: Never Assessed Sex and Gender Information Value Date Recorded Sex Assigned at Not on file Gender Identity Not on file Sexual Orientation Not on file documented as of this encounter Procedure Notes * German, Conv Lease Broker - 06/12/2011 1222 EDT OPPROC LAKHANI 7 PROCEDURE / OPERATIVE REPORT NAME: TERI LAKE : 1980 MRN: [id number] DATE: 09/25/2004 SURGEON: ROBIN MEDINA MD SPECIAL MACHINE OPERATOR: YEIMY SOLORIO MD, COOPER MEJIA MD PREOPERATIVE DIAGNOSIS: Septate uterus. POSTOPERATIVE DIAGNOSIS: Septate uterus. PROCEDURE: Exam under anesthesia, hysteroscopy, electrocautery of uterine septum. ANESTHESIA: Spinal. INDICATIONS: The patient is a 24-year-old female with a history of a mid- trimester loss. Followup evaluation had revealed a septate uterus on sonohysterogram. The patient desired definite procedure and signed a written consent form prior to the procedure. FINDINGS: Exam under anesthesia revealed an anteverted uterus. No adnexal masses were noted but palpation was difficult secondary to patients habitus. Hysteroscopy revealed two normal ostia. The endometrium appeared normal. There was a midline symmetric septum noted that was of moderate size. At the end of the procedure, the majority of the septum had been taken down such that the cornua were both visible. There were no anatomic abnormalities in the uterus including no polyps or fibroids. Otherthan the midline symmetric septum, the uterine cavity was otherwise completely normal. NARRATIVE: With an IV in place, the patient was taken to the operating room. She received a spinal anesthetic. She was prepped and draped in the standard fashion for a vaginal procedure. A weighted speculum was placed in her vagina. Due to poor visualization, two Deavers were used to actually locate her cervix. A single-toothed tenaculum was placed on the anterior lip of her cervix. Her uterus sounded to 3-3/4 inches. Her cervix was dilated to a #23 Argueta dilator. The operative hysteroscope was initially used. Saline distending media under pressure was used as the distention media. Due to the difficult visualization with the operative hysteroscope and continued leaking, the decision was made to proceed with the resectoscope instead. The resectoscope was usedwith a wire loop, which was angled on 150, 50, cut and coag. The resectoscope was used to bisect nearly the entire septum. Once again, at the end of the procedure, both cornual areas were more easilyvisible. Bleeding was not of any significant nature during the case. The deficit after the initial operative hysteroscope was once again less than 100 cc. The deficit noted from theresectoscope portion with the glycine was about 250 cc. At the end of the procedure, all instruments were removed from the patient's vagina and uterus. A pediatric Ball of 8-New Zealander size was placed in the uterus and the balloon was blown up to 3-4 cc of saline. The patient was cleansed of the Betadine solution and taken to the postoperative area in stable and awake condition. Dr. Robin Medina was present and scrubbed for the entire procedure. ESTIMATED BLOOD LOSS: Minimal. FLUIDS: 1000 cc of LR IV. GLYCINE DEFICIT: 250 cc. INITIAL NORMAL SALINE DEFICIT: The initial normal saline deficit from the operative hysteroscope was less than a 100 cc. URINE OUTPUT: 100 cc. SPECIMENS: None. CULTURES: None. DRAINS: An 8-New Zealander pediatric Ball was placed in the uterus for the patient to go home with. COMPLICATIONS: None. CONDITION: Good. d - 09/25/2004 10:29:43 - YEIMY SOLORIO MD t - 10/01/2004 09:45:21 - mt Voice ID - [id number] Document ID - [id number] cc: ROBIN MEJIA MD RESIDENT VALERIA MCCARTHY MD, REFERRING PHYSICIAN YEIMY SOLORIO MD, <Dictator> This document has been electronically signed by ROBIN MEDINA MD on 10/02/2004 16:28:36. documented in this encounter Plan of Treatment Upcoming Encounters Date Type Department Care Team (Late st Contact Info) Description 12/29/2024 10:20 EST Office Visit [facility] Rheumatology & Immunology - [address] [address] Micaela Hoff MD [address] [place] [address], [address] [place] [phone] documented as of this encounter Visit Diagnoses Not on filedocumented in this encounter Care Teams Office Clinician Relationship Specialty Start Date End Date Ladonna Maurer PA [address] [place] [address] PCP - General 05/20/10 06/02/11 Yair Dow MD [address] [place] [phone] PCP - General 06/03/11 03/08/12 documented as of this encounter
--- OUTSIDE RECORDS SUMMARY | 2024-06-10 18:49 | XMS_ITS | Encounter Summary ---
Author Organization [facility] Address [address] [place] [address] Care Team Providers Care Sugar Coating Hand Name Role Phone Unavailable Primary Care Provider Unavailabl e Encounter Details Date Type Department Care Team (Latest Contact Info) Description 05/03/2004 10:53 EDT - 05/03/2004 11:59 EDT Hospital Encounter [facility] - Other [address] [place] [address] Yomi Valdes MD Discharge Disposition: Auto Discharge Social History [...] [facility] Rheumatology & Immunology - [facility] [address] [place], [place] [address] Micaela Hoff MD 111 [facility], [address] [place] [phone] documented as of this encounter Procedures Procedure Name Priority Date/Time Associated Diagnosis Comments CYTOPATHOLOGY Routine 05/03/2004 0:00 EDT documented in this encounter Results * CYTOPATHOLOGY (05/03/2004 0:00 EDT) Pathology Report: CYTOPATHOLOGY REPORT Reports generated via electronic interface contain original data; however they are lacking the format of the original report. Caution should be taken when reading/interpreti ng unformatted reports. Name: ? TERI CROWE ? Accession #: ? [id number] : ? 1980 (Age: 24) ??F ?Collect Date: ? 05/03/2004 Location: ? [facility] ? Receive Date: ? 05/08/2004 Provider: ?YOMI VALDES MD Copy to: ? Specimen/Source: ?ThinPrep Pap Test, Cervix Last Menstrual Period: ? 04/28/2004 Treatment History: ? LEEP: 11/06 Other: ? HPVA - HPV testing requested if ASC-US on the current ThinPrep Pap test. ? SPECIMEN ADEQUACY ? Satisfactory for Evaluation - transformation zone component present GENERAL CATEGORIZATION ? Negative for Intraepithelial Lesion or Malignancy INTERPRETATION ? Shift in marquita present suggestive of bacterial vaginosis. ? Document reviewed and electronically signed by: ? GARY Stephens(ASCP) ? Report Date: ??05/14/2004 13:51 End of Report [facility] 05/03/2004 05/08/2004 Yomi Valdes MD PATHOLOGY ORDERABLES [facility] [address] [place] [address] documented in this encounter Visit Diagnoses Not on filedocumented in this encounter
--- OUTSIDE RECORDS SUMMARY | 2024-06-10 18:49 | XMS_ITS | Encounter Summary ---
Author Organization [facility] Address [address] [place] [address] Care Team Providers Care Textile Bag Sewer Name Role Phone Unavailable Primary Care Provider Unavailabl e Encounter Details Date Type Department Care Team (Late st Contact Info) Description 11/19/2004 16:10 EST Hospital Encounter [facility] - Other [address] [place], [place] [address] Gustavo Smith MD [address] [phone] Social History Tobacco Use Types Packs/Day Years [...] Info) Description 12/29/2024 10:20 EST Office Visit [facility] Rheumatology & Immunology - [facility] [address] [place], [place] [phone] Micaela Hoff MD 111 [facility], [address] [place] [address] documented as of this encounter Visit Diagnoses Not on filedocumented in this encounter Additional Health Concerns Infection Onset Date Last Indicated Resolved Time 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
--- OUTSIDE RECORDS SUMMARY | 2024-06-10 18:49 | XMS_ITS | Encounter Summary ---
Author Organization [facility] Address [address] [place] [address] Care Team Providers Care Retail Wireless Sales Representative Name Role Phone Ladonna Maurer Primary Care Provider [phone] Encounter Details Date Type Department Care Team (Late st Contact Info) Description 02/06/2004 Results Only [facility] - Maple conversion [address] [place] [address] Sonya Florentino [address] [place] [facility] [address] Social History Tobacco Use Types Packs/Day Years Used Date Smoking Tobacco: Never Assessed Sex and Gender Information Value Date Recorded Sex Assigned at Not on file Gender Identity Not on file Sexual Orientation Not on file documented as of this encounter Plan of Treatment Upcoming Encounters Date Type Department Care Team (Late st Contact Info) Description 12/29/2024 10:20 EST Office Visit [facility] Rheumatology & Immunology - [facility] [address] [place], [place] [address] Micaela Hoff MD [address] [facility], [address] [place] [phone] documented as of this encounter Procedures Procedure Name Priority Date/Time Associated Diagnosis Comments GROUP A STREP CULTURE Routine 02/06/2004 15:06 EDT documented in this encounter Results * PHARYNGITIS CULTURE (02/06/2004 15:06 EDT) Specimen Description Throat [facility] Result Few STREPTOCOCCUS , BETA HEMOLYTIC GROUP A (STREPTOCOCCU S PYOGENES) Few Usual karne-pharyngea l marquita Supplementary report. [facility] Report Status Final [id number] [facility] 02/06/2004 15:0 6 EDT 02/06/2004 20:09 EDT Sonya Florentino MICROBIOLOGY - GENER AL ORDERABLES [facility] [address] [place] [address] documented in this encounter Visit Diagnoses Not on filedocumented in this encounter Care Teams Retail Wireless Sales Representative Relationship Specialty Start Date End Date Ladonna Maurer PA [address] [place] [address] PCP - General 05/20/10 06/02/11 documented as of this encounter
--- OUTSIDE RECORDS SUMMARY | 2024-06-10 18:49 | XMS_ITS | Encounter Summary ---
Author Organization [facility] [place] [address] Care Team Providers Care Ammunition And Explosives Handler Name Role Phone TrellUbaldoe Barbara ENCINAS Primary Care Provider [phone] Reason for Referral * Diagnostic Test (Routine) - Closed Specialty Diagnoses / Procedures Referred By Contac t Referred To Contact Radiology Diagnoses Opacity of lung on imaging study Procedures CT Chest wo Contrast (Generic) Britt Zurita MD [facility] [place] [address] [facility] [place] [address] Referral ID Status Reason Start Date Expiration Date V isits Requested Visits Authorized [id number] Closed Specialty Service Requested 02/17/2024 08/18/2025 1 1 Reason for Visit * Diagnostic Test (Routine) - Closed Specialty Diagnoses / Procedures Referred By Contac t Referred To Contact Radiology Diagnoses Opacity of lung on imaging study Procedures CT Chest wo Contrast (Generic) Britt Zurita MD [facility] [place] [address] [facility] [place] [address] Referral ID Status Reason Start Date Expiration Date V isits Requested Visits Authorized [id number] Closed Specialty Service Requested 02/17/2024 08/18/2025 1 1 Encounter Details Date Type Department Care Team (Latest Contact Info) Description 02/19/2024 10:29 AM EDT - 02/19/2024 11:59 PM EDT Hospital Encounter CT Scan [place] [facility] [place] [address] Britt Zurita MD [facility] [place] [address] Opacity of lung on imaging study Discharge Disposition: Home Social History Tobacco Use Types Packs/Day Years Used Date Smoking Tobacco: Former Cigarettes 1 18 0 03/02/2002 - 03/02/2020 Smokeless Tobacco: Never Comments:vape Alcohol Use Standard Drinks/Week Comments Yes 3 (1 standard drink = 0.6 oz pur e alcohol) twice a month Sex and Gender Information Value Date Recorded Sex Assigned at Female 08/14/2021 10:55 AM EDT Gender Identity Female 08/14/2021 10:55 AM EDT Sexual Orientation Straight 08/14/2021 10 :55 AM EDT documented as of this encounter Medications at Time of Discharge Medication Sig Dispensed Refills Start Date End Date cetirizine (ZyrTEC) 10 mg chewable tablet Take 10 mg by mouth daily. cholecalciferol, vitamin D3, (VITAMIN D3 ORAL) Take 50,000 Units by mouth once a week. 11/28/2022 famotidine (Pepcid) 20 mg tablet Take 20 mg by mouth daily as needed. 09/21/2023 valACYclovir (Valtrex) 500 mg tablet Take 500 mg by mouth daily. 02/02/2024 acetaminophen (Tylenol) 325 mg tablet Take 650 mg by mouth every 6 hours as needed. 07/20/2014 lisinopriL (Zestril) 10 mg Tablet Take 10 mg by mouth daily. 05/13/2022 levothyroxine (Synthroid) 112 mcg Tablet Take 112 mcg by mouth daily. Will take 125 mcg after today 02/16/24 07/29/2021 fluticasone propionate (Flonase) 50 mcg/actuation Mccool, Suspension SPRAY ONE SPRAY IN EACH NOSTRIL TWICE A DAY 08/07/2021 fluconazole (Diflucan) 150 mg Tablet Take 150 mg by mouth as needed. 07/25/2021 naproxen (Naprosyn) 500 mg tabletIndications:Polya rthralgia Take 1 tablet by mouth 2 times daily (with meals). 60 tablet 3 04/16/2023 04/18/2024 documented as of this encounter Plan of Treatment Upcoming Encounters Date Type Department Care Team (Late st Contact Info) Description 08/17/2024 12:00 PM EDT [place] [address] Britt Zurita MD [facility] [place] [address] documented as of this encounter Procedures Procedure Name Priority Date/Time Associated Diagnosis Comments CT CHEST WO CONTRAST (GENERIC) Routine 02/19/2024 10:43 AM EDT Opacity of lung on imaging study documented in this encounter Results * CT Chest wo Contrast (Generic) (02/19/2024 10:43 AM EDT) [employer] WORKSTATION ID [id number] RAD Anatomical Region Laterality Modality Chest Computed Tomogra phy Impressions 02/21/2024 6:30 AM EDT Superimposition artifact on the prior chest radiograph without corresponding finding on CT. No lymphadenopathy. Small lymph nodes in the left axilla are calcified which is a nonspecific finding. Very small nonobstructing stone at the upper pole of the left kidney. Thank you for letting us participate in the care of this patient. ??If you are a health care provider and have any questions regarding this report, please contact the number below. ??For patients who have questions please contact the health career professional that requested your imaging first. ? Electronically signed by: Rebecca Escalera MD, [facility] ([phone]), at 02/21/2024 6:30 AM Narrative 02/21/2024 6:30 AM EDT EXAMINATION: CT CHEST WO CONTRAST (GENERIC) CLINICAL HISTORY: Abnormal xray - lung opacity/opacities R91.8, Other nonspecific abnormal finding of lung field TECHNIQUE: Helical CT of the chest without intravenous contrast administration. Thin-section reconstructions as well as coronal and sagittal reformatted images were generated. COMPARISON: Chest radiograph 02/16/2024 FINDINGS: Pulmonary parenchyma: No suspicious pulmonary lesion. No acute airspace disease. Airways: No central endobronchial abnormality. Pleura: No effusion. Lymph nodes: No lymphadenopathy. There are multiple small partially calcified lymph nodes in the left axilla. Heart and vasculature: Normal size of the heart. No significant pericardial effusion. Normal caliber of the thoracic aorta. Other mediastinal structures: Small amount of residual thymus tissue. Upper abdomen: 1 mm nonobstructing left kidney stone. Skeletal structures: No significant findings. Procedure Note Rebecca De Leon MD - 02/21/2024 EXAMINATION: CT CHEST WO CONTRAST (GENERIC) CLINICAL HISTORY: Abnormal xray - lung opacity/opacities R91.8, Other nonspecific abnormal finding of lung field TECHNIQUE: Helical CT of the chest without intravenous contrastadministration. Thin-section reconstructions as well as coronal and sagittal reformattedimages were generated. COMPARISON: Chest radiograph 02/16/2024 FINDINGS: Pulmonary parenchyma: No suspicious pulmonary lesion. No acute airspacedisease. Airways: No central endobronchial abnormality. Pleura: No effusion. Lymph nodes: No lymphadenopathy. There are multiple small partiallycalcified lymph nodes in the left axilla. Heart and vasculature: Normal size of the heart. No significantpericardial effusion. Normal caliber of the thoracic aorta. Other mediastinal structures: Small amount of residual thymus tissue. Upper abdomen: 1 mm nonobstructing left kidney stone. Skeletal structures: No significant findings. IMPRESSION Superimposition artifact on the prior chest radiograph withoutcorresponding finding on CT. No lymphadenopathy. Small lymph nodes in the left axilla are calcifiedwhich is a nonspecific finding. Very small nonobstructing stone at the upper pole of the left kidney. Thank you for letting us participate in the care of this patient. If youare a health care provider and have any questions regarding this report,please contact the number below. For patients who have questions please contactthe health career professional that requested your imaging first. Electronically signed by: Rebecca Escalera MD, [facility] ([phone]), at 02/21/2024 6:30 AM Britt Zurita MD IMG CT ORDERABLES documented in this encounter Visit Diagnoses Diagnosis Opacity of lung on imaging study documented in this encounter Care Teams Ammunition And Explosives Handler Relationship Specialty Start Date End Date Anuja Cai APRN [address] [place] [address] PCP - General Internal Medicine 07/25/21 documented as of this encounter
--- OUTSIDE RECORDS SUMMARY | 2024-06-10 18:49 | XMS_ITS | Encounter Summary ---
Author Organization [facility] Address [address] [place] [address] Care Team Providers Care Air Quality Consultant Name Role Phone Unavailable Primary Care Provider Unavailabl e Encounter Details Date Type Department Care Team (Late st Contact Info) Description 04/29/2006 14:54 EDT Hospital Encounter [facility] - Maple conversion [address] [place], [place] [address] Justus Bond MD [address] [place] [address] [place] [phone] Social History Tobacco Use Types Packs/Day Years [...] [facility] Rheumatology & Immunology - [facility] [address] [place], [place] [phone] Micaela Hoff MD [address] [facility], [address] [place] [phone] documented as of this encounter Visit Diagnoses Not on filedocumented in this encounter Additional Health Concerns Infection Onset Date Last Indicated Resolved Time 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
--- OUTSIDE RECORDS SUMMARY | 2024-06-10 18:49 | XMS_ITS | Encounter Summary ---
Author Organization [facility] [place] [address] Care Team Providers Care Dough Panner Name Role Phone Anjua Cai HUANG Primary Care Provider + [phone] Encounter Details Date Type Department Care Team (Late st Contact Info) Description 01/13/2024 Orders [place] [phone] Kp Erazo MD [facility] [place] [address] Right knee pain, unspecified chronicity Social History Tobacco Use Types Packs/Day Years [...] AM EDT documented as of this encounter Plan of Treatment Upcoming Encounters Date Type Department Care Team (Late st Contact Info) Description 08/17/2024 12:00 PM EDT Office [place] [phone] Britt Zurita MD [facility] [place] [address] documented as of this encounter Results * XR Knee 1-2 Views Right (Generic) (01/26/2024 12:42 PM EDT) Anatomical Region Laterality Modality Knee Right Digital Radiogra phy Impressions 01/26/2024 2:42 PM EDT Unchanged radiographic appearance of the right knee without fracture or malalignment. Joint spaces are preserved. Thank you for letting us participate in the care of this patient. ??If you are a health care provider and have any questions regarding this report, please contact the number below. ??For patients who have questions please contact the health intensive care ambulance paramedic that requested your imaging first. ? Electronically signed by: Juliana Jensen MD, [facility] ([phone]), at 01/26/2024 2:42 PM Narrative 01/26/2024 2:42 PM EDT EXAMINATION: XR KNEE 1-2 VIEWS RIGHT (GENERIC) CLINICAL HISTORY: right knee pain M25.561, Pain in right knee (as entered by ordering provider in the order requisition) TECHNIQUE: AP view the bilateral knees, lateral view the right knee. COMPARISON: Right knee radiograph 11/28/2022 FINDINGS: Right knee: No focal soft tissue swelling. ??No joint effusion or lipohemarthrosis. No radiodense foreign body. ??No soft tissue gas. Normal alignment of the right knee. No acute fracture. Joint spaces are preserved. No osteophyte formation. No destructive bone lesion. No osseous erosion. Left knee: Joint spaces are preserved. Procedure Note Juliana Jensen MD - 01/26/2024 EXAMINATION: XR KNEE 1-2 VIEWS RIGHT (GENERIC) CLINICAL HISTORY: right knee pain M25.561, Pain in right knee (as entered by ordering provider in the order requisition) TECHNIQUE: AP view the bilateral knees, lateral view the right knee. COMPARISON: Right knee radiograph 11/28/2022 FINDINGS: Right knee: No focal soft tissue swelling. No joint effusion or lipohemarthrosis. No radiodense foreign body. No soft tissue gas. Normal alignment of the right knee. No acute fracture. Joint spaces are preserved. No osteophyte formation. No destructive bone lesion. No osseous erosion. Left knee: Joint spaces are preserved. IMPRESSION Unchanged radiographic appearance of the right knee without fracture or malalignment. Joint spaces are preserved. Thank you for letting us participate in the care of this patient. If youare a health care provider and have any questions regarding this report,please contact the number below. For patients who have questions please contactthe health intensive care ambulance paramedic that requested your imaging first. Kp Erazo MD IMG DX ORDERABLES documented in this encounter Visit Diagnoses Diagnosis Right knee pain, unspecified chronicity Right knee pain, unspecified chronicity documented in this encounter Care Teams Dough Panner Relationship Specialty Start Date End Date Anuja Cai APRN [address] [place] [address] PCP - General Internal Medicine 07/25/21 documented as of this encounter
--- OUTSIDE RECORDS SUMMARY | 2024-06-10 18:49 | XMS_ITS | Encounter Summary ---
Author Organization [facility] Address [address] [place] [address] Care Team Providers Care Roastmaster Name Role Phone Unavailable Primary Care Provider Unavailabl e Encounter Details Date Type Department Care Team (Late st Contact Info) Description 06/15/2006 15:07 EDT Hospital Encounter [facility] - Maple conversion [address] [place] [address] Vlad Lucio MD Social History Tobacco Use Types Packs/Day [...] [facility] Rheumatology & Immunology - [facility] [address] [place], [place] [phone] Micaela Hoff MD [address] [facility], [address] [place] [phone] documented as of this encounter Procedures Procedure Name Priority Date/Time Associated Diagnosis Comments COMPLETE BLOOD COUNT AND DIFFERENTIAL Routine 06/15/2006 16:00 EDT COMPREHENSIVE METABOLIC PANEL (CMP) Routine 06/15/2006 16:00 EDT documented in this encounter Results * (ABNORMAL) COMPREHENSIVE METABOLIC PANEL (06/15/2006 16:00 EDT) Potassium 4.0 3.5 - 5.0 mEq/L [facility] Sodium 142 136 - 145 mEq/L [facility] Chloride 104 96 - 110 mEq/L [facility] CO2 27 24 - 32 mEq/L [facility] Total Alkaline Phosphatase 52 38 - 126 U/L [facility] Bilirubin, Total <0.5 0.2 - 1.3 mg/dl [facility] AST 32 15 - 46 U/L [facility] ALT 27 9 - 52 U/L [facility] Albumin 4.6 3.4 - 4.9 g/dl [facility] Total Protein 7.4 6.5 - 8.3 g/dl [facility] Creatinine 0.8 0.7 - 1.5 mg/dl [facility] BUN 9(L) 10 - 26 mg/dl [facility] Calcium 9.3 8.5 - 10.5 mg/dl [facility] Calculated Calcium 9.1 8.5 - 10.5 mg/dl [facility] Glucose, Serum 79 70 - 100 mg/dl [facility] Fasting? Yes [facility] Albumin/Globulin Ratio 1.6 [facility] 06/15/2006 16:0 0 EDT 06/15/2006 18:50 EDT Vlad Lucio MD CHEMISTRY & BL OOD GAS ORDERABLES [facility] [address] [place] [address] * (ABNORMAL) HEMAGRAM AND DIFFERENTIAL (06/15/2006 16:00 EDT) WBC 5.79 4.0 - 12.4 K/cmm [facility] RBC 4.85 3.86 - 5.04 M/cmm [facility] Hemoglobin 14.5 11.6 - 15.2 gm/dl [facility] HCT 41.7 34.9 - 44.4 % [facility] MCV 86 81 - 98 fl [facility] MCH 29.9 26.7 - 33.3 pg [facility] MCHC 34.8 32.1 - 35.9 gm/dl [facility] PLT 261 141 - 320 K/cmm [facility] RDW-CV 12.6 11.7 - 14.6 % [facility] % Neutrophils 61.9 45.5 - 79.7 % [facility] % Lymphocytes 27.2 15.0 - 46.8 % [facility] % Monocytes 10.5 1.8 - 12.0 % [facility] % Eosinophils 0.0(L) 0.6 - 6.9 % [facility] % Basophils 0.4 0.2 - 1.4 % [facility] ABS Neutrophils 3.59 2.20 - 8.85 K/cmm [facility] ABS Lymphs 1.57 1.09 - 3.30 K/cmm [facility] ABS Monocytes 0.61 0.1 - 0.8 K/cmm [facility] ABS Eosinophils 0.00(L) 0.03 - 0.61 K/cmm [facility] ABS Basophils 0.02 0.01 - 0.11 K/cmm [facility] Type of Diff: Automated [facility] 06/15/2006 16:0 0 EDT 06/15/2006 18:50 EDT Vlad Lucio MD PACKAGES & DNA PROBE ORDERABLES [facility] [address] [place] [address] documented in this encounter Visit Diagnoses Not on filedocumented in this encounter Additional Health Concerns Infection Onset Date Last Indicated Resolved Time 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
--- OUTSIDE RECORDS SUMMARY | 2024-06-10 18:49 | XMS_ITS | Encounter Summary ---
Author Organization [facility] Address [address] [place] [address] Care Team Providers Care Cam Maker Name Role Phone Unavailable Primary Care Provider Unavailabl e Encounter Details Date Type Department Care Team (Latest Contact Info) Description 02/06/2004 15:21 EDT Hospital Encounter [facility] - Other [address] [place] [address] Marixa Barreto MD Discharge Disposition: Auto Discharge Social History [facility] [address] [place], [place] [address] Micaela Hoff MD [address] [facility], [address] [place] [phone] documented as of this encounter Visit Diagnoses Not on filedocumented in this encounter
--- OUTSIDE RECORDS SUMMARY | 2024-06-10 18:49 | XMS_ITS | Encounter Summary ---
Author Organization [facility] Address [address] [place] [address] Care Team Providers Care Lead Supply Worker Name Role Phone Unavailable Primary Care Provider Unavailabl e Encounter Details Date Type Department Care Team (Late st Contact Info) Description 04/06/2006 10:30 EDT Hospital Encounter [facility] - Maple conversion [address] [place], [place] [address] Justus Bond MD [address] [place] [address] [place] [phone] Social History Tobacco Use Types Packs/Day Years [...] Visit [facility] Rheumatology & Immunology - [facility] [address] [place], [place] [phone] Micaela Hoff MD [address] [facility], [address] [place] [phone] documented as of this encounter Visit Diagnoses Not on filedocumented in this encounter Additional Health Concerns Infection Onset Date Last Indicated Resolved Time 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
--- OUTSIDE RECORDS SUMMARY | 2024-06-10 18:49 | XMS_ITS | Encounter Summary ---
Author Organization [facility] Address [address] [place] [address] Care Team Providers Care Medical Device Sales Representative Name Role Phone Unavailable Primary Care Provider Unavailabl e Encounter Details Date Type Department Care Team (Late st Contact Info) Description 01/25/2006 Office Visit [facility] - Maple conversion [address] [place] [address] Bethel Harding MD Social History Tobacco Use Types Packs/Day Years Used Date Smoking Tobacco: Never Assessed Sex and Gender Information Value Date Recorded Sex Assigned at Not on file Gender Identity Not on file Sexual Orientation Not on file documented as of this encounter Progress Notes * Bethel Harding - 12/26/2009 1820 EST Department - Physician Summary Registration Date/Time: 01/25/2006 2:31 Arrived- By private vehicle. Historian - patient. HISTORY OF PRESENT ILLNESS Chief complaint- ABDOMINAL PAIN. This started just prior to arrival and is still present. It is described as located in the pelvic area and in the left lower quadrant and left pelvis. At its maximum,severity described as 8 / 10. When seen in the E.D., severity described as 4 / 10. Modifying factors (worsened by standing/walking). She has had nausea (1 days). No loss of appetite, vomiting or diarrhea. The patient has had similar symptoms previously ( with menstruation, but not as severe). These occurred occasionally. REVIEW OF SYSTEMS Last normal menstrual period - 4 weeks. No constipation, black stools, hematemesis, difficulty withurination or pain with urination. No urinary frequency, missed periods, abnormal bleeding or bloodystools. PAST HISTORY Negative. Medications: None. Allergies: See nurses notes. SOCIAL HISTORY Smoker. Alcohol use (socially). ADDITIONAL NOTES The nursing notes have been reviewed. PHYSICAL EXAM Appearance: Alert. Oriented X3. Patient in moderate distress. Vital Signs: Have been reviewed - CVS: Normal heart rate and rhythm. Heart sounds normal. Respiratory: No respiratory distress. Breath sounds normal. Abdomen: Moderate tenderness in the left upper quadrant, left side of the abdomen, left lower quadrant and lower abdomen. No guarding or rebound tenderness. Abdomen soft. No guarding, rebound tenderness, organomegaly or abdominal distention. The bowel sounds are not abnormal. Back: No CVA tenderness. Neuro: Oriented X 3. LABS, X-RAYS, AND EKG HCG: Urine HCG negative - PROGRESS AND PROCEDURES E.D. Course: 800 mg ibuprofen. CLINICAL IMPRESSION Abdominal pain (most likely secondary to ovarian cyst, less likely renal colic). INSTRUCTIONS Follow-up: Follow up with your doctor in one week if not better. (Electronically signed by Bethel Harding MD 01/25/2006 3:38) Attending Note: I supervised care provided by the resident. We have discussed the case. I have reviewed the note and agree with the plan oftreatment. I personally interviewed the patient and examinedthe patient. ( Here with severe LLQ pain. Similar in location to pain assocaited with menses bu tmore severe. No hx ovarian cysts/torsion. LMP 1 month ago and pt concerned about possiblepregnancy; exam sig for mild LLQ tenderness; UPT neg, UA with trace blood; discussed differential with patient and plan to re-evaluate after trial of NSAIDs; pt left prior to formal re-evaluation or discharge after being informed of her neg test.). PROGRESS AND PROCEDURES Patient/family counseled. Old medical records ordered. Old records unavailable. I consider bowel etiology, acute appendicitis, diverticulitis, small bowel obstruction, gallbladderdisease and cystitis unlikely as a cause of abdominal pain in this patient. This is a partial list of diagnoses considered. Above considerations are based on history, physical exam, past history and reassessment. Differential diagnosis was discussed with patient. Disposition: Condition: stable. CLINICAL IMPRESSION Abdominal pain of unknown cause . (Electronically signed by Kenton Figueroa M.D. 01/25/2006 23:15) Department - Nursing Summary Registration Date/Time: 01/25/2006 2:31 TRIAGE Initial Assessment Triage time 02:33 Jan 25 2006. --232 Melodie Gamez R.N. BP: 136 / 88. HR: 68. RR: 18. Temp: 36 C. --234 Melodie Gamez R.N. Acuity: LEVEL 3. --234 Melodie Gamez R.N. Medications None. --234 Melodie Gamez R.N. Allergies No known drug allergies. --234 Melodie Gamez R.N. History Chief Complaint: ( LLQ abd apin radiating up and across.). This started just prior to arrival. Pain level now: 8/10. The patient has had nausea. Treatment DROP MAN: None. PAST HX: Negative. Last normal menstrual period was 4 weeks ago - SOCIAL HX: Smoker. Alcohol use. Arrived by private vehicle and accompanied by family. Historian: patient. --234 Melodie Gamez R.N. NURSING PROGRESS NOTES Progress Patient gowned. Call light placed in reach. Bed placed in lowest position. Brakes of bed on. --246Melodie Gamez R.N. Clean catch urine collected. Urine test negative (SG 1.010, pH 5.0, tr blood, tr leuks, all else neg). --247 Melodie Gamez R.N. IBUPROFEN 800 mg PO. . --331 Melodie Gamez R.N. ( Pt found walking out of ED. Given Ibuprofen 800mg, will take at home with a small snack. Pt does not want to stay for further eval. Pt states will return if no relief with ibuprofen or follow up with PMD.). --333 Melodie Gamez R.N. DISPOSITION / DISCHARGE The patient left the Emergency Department accompanied by a pinsetter mechanic helper (before completion of treatment). The patient appears to be alert, oriented x3, coherent and in no acute distress. The patient notified the ED staff prior to leaving the department. Prior to leaving the ED, the patient was advisedto stay for completion of treatment and return if needed. The patient was informed of the risks of leaving and verbalized understanding of these risks. The patient left the Emergency Department ambulatory. ( ED physician notified after pt left.). --0337 Linn Sanders R.N. Locked/Released at 01/25/2006 3:37 by Melodie Gamez R.N. documented in this encounter Plan of Treatment Upcoming Encounters Date Type Department Care Team (Late st Contact Info) Description 12/29/2024 10:20 EST Office Visit [facility] Rheumatology & Immunology - [address] [address] Micaela Hoff MD [address] [place] [address], [address] [place] [address] documented as of this encounter Visit Diagnoses Not on filedocumented in this encounter
--- OUTSIDE RECORDS SUMMARY | 2024-06-10 18:49 | XMS_ITS | Encounter Summary ---
Author Organization [facility] Address [facility] [place] [address] Care Team Providers Care Management Instructor Name Role Phone Anuja Cai APRN Primary Care Provider [phone] Encounter Details Date Type Department Care Team (Latest Contact Info) Description 01/26/2024 Travel Social History Tobacco Use Types Packs/Day Years [...] 12:00 PM EDT Office [place] [address] Britt Zurita MD [facility] [place] [address] documented as of this encounter Visit Diagnoses Not on filedocumented in this encounter Care Teams Management Instructor Relationship Specialty Start Date End Date Anuja Cai APRN [address] [place], [place] [id number] PCP - General Internal Medicine 07/25/21 documented as of this encounter
--- OUTSIDE RECORDS SUMMARY | 2024-06-10 18:49 | XMS_ITS | Encounter Summary ---
Author Organization [facility] Address [address] [place] [address] Care Team Providers Care Shop Clerk Name Role Phone Unavailable Primary Care Provider Unavailabl e Encounter Details Date Type Department Care Team (Late st Contact Info) Description 02/23/2006 Office Visit [facility] - Maple conversion [address] [place] [address] Nurse, Emergency Room, Social History Tobacco Use Types Packs/Day Years Used Date Smoking Tobacco: Never Assessed Sex and Gender Information Value Date Recorded Sex Assigned at Not on file Gender Identity Not on file Sexual Orientation Not on file documented as of this encounter Progress Notes * Vu Porter Packaging Designer - 12/26/2009 1946 EST Department - Physician Summary Registration Date/Time: 02/23/2006 17:24 Addenda for [place] [place] VisitID: [id number] Date: 02/23/2006 02/24/2006 9:04 attempted call back no answer signed by Krissy Hanson R.N. - 02/24/2006 9:04) 02/24/2006 15:19 has left proir to discharge 2 out of three visits has had here, no futher follow up needed signed by Jericho Gloria R.N. - 02/24/2006 15:19) Department - Nursing Summary Registration Date/Time: 02/23/2006 17:24 TRIAGE Initial Assessment Triage time 17:25 . Acuity: LEVEL 5. BP: 102 / 84 sitting. HR: 71 regular. RR: 16 regular. Temp: 36.3 tympanic. O2 saturation: 99 % roomair. Alert. No acute distress. --1729 Cecelia Dalton R.N. Medications None. --1729 Cecelia Dalton R.N. Allergies No known drug allergies. --1729 Cecelia Dalton R.N. History Chief Complaint: ( cough, wheezing). The patient has had a cough. No fever, weakness, difficulty breathing or skin rash. Denies muscle aches. PAST HX: Negative. SOCIAL HX: Smoker: 1 pack per day. No alcohol use. Arrived by private vehicle. ( Pt states she saw her PCP on thu but states in full sentences, satrong voice that her lungs feel wheezy and cough is more freq though non productive. Denies any fevers. No body aches. No otc today. ). --1729 Cecelia Dalton R.N. DISPOSITION / DISCHARGE The patient left the Emergency Department without being seen by a physician. The patient appears ramon alert, oriented x3, coherent and in no acute distress. Unable to locate patient. The patient didnot notify the ED staff prior to leaving the department. Patient left without signing form prior toleaving. --1922 Linn Barksdale R.N., R.N. Locked/Released at 02/24/2006 6:52 by Cecelia Lopez R.N. documented in this encounter Plan of Treatment Upcoming Encounters Date Type Department Care Team (Late st Contact Info) Description 12/29/2024 10:20 EST Office Visit [facility] Rheumatology & Immunology - [address] [address] Micaela Hoff MD [address] [place] [address], [address] [place] [address] documented as of this encounter Visit Diagnoses Not on filedocumented in this encounter
--- OUTSIDE RECORDS SUMMARY | 2024-06-10 18:49 | XMS_ITS | Encounter Summary ---
Author Organization [facility] Address [address] [place] [address] Care Team Providers Care Obstetrics Tech Name Role Phone Unavailable Primary Care Provider Unavailabl e Encounter Details Date Type Department Care Team (Late st Contact Info) Description 12/14/2005 Office Visit [facility] - Maple conversion [address] [place] [address] Stephany Quintanilla MD [address] [place] [address] Social History Tobacco Use Types Packs/Day Years Used Date Smoking Tobacco: Never Assessed Sex and Gender Information Value Date Recorded Sex Assigned at Not on file Gender Identity Not on file Sexual Orientation Not on file documented as of this encounter Progress Notes * German, Conv Mon[place] Mason - 01/02/20102026 EST Department - Physician Summary Registration Date/Time: 12/14/2005 10:26 Arrived- By private vehicle. Historian - patient. HISTORY OF PRESENT ILLNESS Chief Complaint: DYSURIA. This started yesterday and still present. The symptoms are described as moderate. The patient has had pain with urination and urgency of urination. The patient has had urinary frequency and hematuria. No abdominal pain, vaginal pain, low back pain, flank pain or missed period (s). Sexually active - Patient has not had similar symptoms previously. REVIEW OF SYSTEMS No nausea, vomiting, diarrhea, black stools or headache. No fever, chills, eye discomfort, sore throat or cough. No difficulty breathing, chest pain, skin rash or enlarged lymph nodes. PAST HISTORY Negative. Medications: See nurses notes. Allergies: See nurses notes. SOCIAL HISTORY Nonsmoker. No alcohol use. ADDITIONAL NOTES The nursing notes have been reviewed. PHYSICAL EXAM Appearance: Alert. Oriented X3. No acute distress. Vital Signs: Have been reviewed - HEENT: Normal external inspection. ENT: Pharynx normal. Neck: Neck supple. Respiratory: No respiratory distress. Breath sounds normal. Abdomen: Abdomen soft and nontender. Back: Normal external inspection. No CVA tenderness. Skin: Normal skin color. Skin warm and dry. Extremities: Extremities nontender. Neuro: Oriented X 3. Mood/affect normal. LABS, X-RAYS, AND EKG Urinalysis: WBCs present (>50). RBCs present (>50). Urine dipstickpositive for nitrite (strongly positive), moderate blood and moderate leukocyte esterase. HCG: Urine HCG negative - PROGRESS AND PROCEDURES E.D. Course: Pt. given cipro 500mg and pyridium 200mg po in ER. Patient/family counseled. Disposition: Discharged home. Condition: good and stable. Discharged home in good condition and stable condition. CLINICAL IMPRESSION Acute urinary tract infection with cystitis . INSTRUCTIONS Warnings: GENERAL WARNINGS: Return or contact your physicianimmediately if your condition worsens or changes unexpectedly, if not improving as expected, or if other problems arise. Fevers, back pain, worseningsymptoms, other concerns. Prescription Medications: Pyridium 200 mg: take 1 orally every 8 hours for 2 days as needed for urinary problems. Dispense five (5). No refill. Cipro 500 mg: take 1 tab orally every 12 hours for 5 days. No refills. Follow-up: Follow up with Doctor your doctor in five days. (Electronically signed by Stephany Quintanilla M.D. 12/14/2005 16:12) Department - Nursing Summary Registration Date/Time: 12/14/2005 10:26 TRIAGE Initial Assessment Triage time 10:27 . Acuity: LEVEL 4. BP: 136 / 83. HR: 72. RR: 16. Temp: 36.5 tympanic. Alert. --1029 Kelle Prescott R.N. Medications None. --1029 Kelle Prescott R.N. Allergies No known drug allergies. --1029 Kelle Prescott R.N. History Chief Complaint: PAINFUL URINATION, URGENCY and FREQUENCY. This started yesterday. Pain level now: 0/10. ( also c/o some hematuria which started yesterday). No abdominal pain, spotting, back pain, flank pain or fever. Treatment CASH PROCESSOR: None. PAST HX: Negative. SOCIAL HX: Nonsmoker. No alcohol use. No report of abuse. Arrived by private vehicle. Historian: patient. --1029 Kelle Prescott R.N. NURSING PROGRESS NOTES Progress Clean catch urine collected. Urine test negative. Urine sample sent to lab for culture (SG->=1.030,pH-5.0, ADAM 1+, BLO-3+, PRO-2+, NIT-+, LUE-2+, remainder neg). --1052 Angela Novoa R.N. Two patient identifiers checked. CIPRO 500 mg PO. PYRIDIUM 200 mg PO. . --1104 Angela Novoa R.N. DISPOSITION / DISCHARGE Condition at departure: unchanged and stable. Fall risk assessment completed. No fall risk identified. No learning barriers present. Discharge instructions reviewed with the patient. Reviewed medication side effects, precautions, dosing and course; prescription (s) given to the patient (pyridium, cipro). Patient verbalized understanding. Written instructions provided in Tamazight. The patient was discharged home and unaccompanied at time of discharge. The patient left the Emergency Department ambulatory and via private vehicle. Patient driving. --1110 Linn Cordero R.N., R.N. Locked/Released at 12/15/2005 16:49 by Mine Cornell R.N. documented in this encounter Plan of Treatment Upcoming Encounters Date Type Department Care Team (Late st Contact Info) Description 12/29/2024 10:20 EST Office Visit [facility] Rheumatology & Immunology [place] [address] Micaela Hoff MD [address] [facility], [address] [place] [address] documented as of this encounter Visit Diagnoses Not on filedocumented in this encounter
--- OUTSIDE RECORDS SUMMARY | 2024-06-10 18:49 | XMS_ITS | Encounter Summary ---
Author Organization [facility] Address [address] [place] [address] Care Team Providers Care Abseiling Instructor Name Role Phone Ladonna Maurer Primary Care Provider [phone] Encounter Details Date Type Department Care Team (Late st Contact Info) Description 03/06/[address] [facility] Family Medicine [address] [id number] Gustavo Smith MD [address] [phone] Social History Tobacco Use Types Packs/Day Years Used Date Smoking Tobacco: Never Assessed Sex and Gender Information Value Date Recorded Sex Assigned at Not on file Gender Identity Not on file Sexual Orientation Not on file documented as of this encounter Plan of Treatment Upcoming Encounters Date Type Department Care Team (Late st Contact Info) Description 12/29/2024 10:[address] [facility] Rheumatology & Immunology - [facility] [address] [place], [place] [id number] Micaela Hoff MD [address] [facility], [address] [place] [address] documented as of this encounter Procedures Procedure Name Priority Date/Time Associated Diagnosis Comments COMPLETE BLOOD COUNT AND DIFFERENTIAL Routine 03/06/2004 17:29 EDT TSH Routine 03/06/2004 17:29 EDT documented in this encounter Results * TSH (03/06/2004 17:29 EDT) TSH 4.47 0.35 - 5.50 uIU/ml [facility] 03/06/2004 17:2 9 EDT 03/06/2004 19:01 EDT Gustavo Smith MD CHEMISTRY & BLOOD GA S ORDERABLES [facility] [address] [place] [address] * HEMAGRAM AND DIFFERENTIAL (03/06/2004 17:29 EDT) Pathologist [facility] WBC 7.83 4.0 - 12.4 K/cmm [facility] RBC 4.27 3.86 - 5.04 M/cmm [facility] Hemoglobin 12.2 11.6 - 15.2 gm/dl [facility] HCT 35.3 34.9 - 44.4 % [facility] MCV 83 81 - 98 fl [facility] MCH 28.6 26.7 - 33.3 pg [facility] MCHC 34.6 32.1 - 35.9 gm/dl [facility] PLT 264 141 - 320 K/cmm [facility] RDW-CV 13.1 11.7 - 14.6 % [facility] % Neutrophils 60.3 45.5 - 79.7 % [facility] % Lymphocytes 29.4 15.0 - 46.8 % [facility] % Monocytes 8.5 1.8 - 12.0 % [facility] % Eosinophils 1.5 0.6 - 6.9 % [facility] % Basophils 0.3 0.2 - 1.4 % [facility] ABS Neutrophils 4.72 2.20 - 8.85 K/cmm [facility] ABS Lymphs 2.30 1.09 - 3.30 K/cmm [facility] ABS Monocytes 0.66 0.1 - 0.8 K/cmm [facility] ABS Eosinophils 0.12 0.03 - 0.61 K/cmm [facility] ABS Basophils 0.03 0.01 - 0.11 K/cmm [facility] Type of Diff: Automated [facility] 03/06/2004 17:2 9 EDT 03/06/2004 19:01 EDT Gustavo Smith MD PACKAGES & DNA PROBE ORDERABLES [facility] [address] [place] [address] documented in this encounter Visit Diagnoses Not on filedocumented in this encounter Care Teams Abseiling Instructor Relationship Specialty Start Date End Date Ladonna Maurer PA [address] [place] [address] PCP - General 05/20/10 06/02/11 documented as of this encounter
--- OUTSIDE RECORDS SUMMARY | 2024-06-10 18:49 | XMS_ITS | Encounter Summary ---
Author Organization [facility] Address [address] [place] [address] Care Team Providers Care Correspondence Renew Clerk Name Role Phone Ladonna Maurer Primary Care Provider [phone] Encounter Details Date Type Department Care Team (Late st Contact Info) Description 12/29/2003 Results Only [facility] - Maple conversion [address] [place] [address] Stephany Adkins DO [facility] STAFF MAIL [address] [place] [address] Social History Tobacco Use Types Packs/Day Years Used Date Smoking Tobacco: Never Assessed Sex and Gender Information Value Date Recorded Sex Assigned at Not on file Gender Identity Not on file Sexual Orientation Not on file documented as of this encounter Plan of Treatment Upcoming Encounters Date Type Department Care Team (Late st Contact Info) Description 12/29/2024 10:20 EST Office Visit [facility] Rheumatology & Immunology - [facility] [address] [place], [place] [address] Micaela Hoff MD [address] [facility], [address] [place] [phone] documented as of this encounter Procedures Procedure Name Priority Date/Time Associated Diagnosis Comments N. GONORRHOEAE AMPLIFIED PROBE Routine 12/29/2003 16:06 EST ZZCHLAMYDIA TRACHOMATIS AMPLIFIED PROBE Routine 12/29/2003 16:06 EST HDL Routine 12/29/2003 16:06 EST GLUCOSE, SERUM Routine 12/29/2003 16:06 EST CHOLESTEROL Routine 12/29/2003 16:06 EST documented in this encounter Results * N. GONORRHOEAE AMPLIFIED PROBE (12/29/2003 16:06 EST) Result No Neisseria gonorrhoeae DNA detected by urban design consultant mediated amplification. [facility] Report Status Final [id number] [facility] Specimen Description Urine [facility] 12/29/2003 16:0 6 EST 12/29/2003 18:59 EST Stephany A Lucille DO MICROBIOLOGY - GENER AL ORDERABLES Performing Organization Address City/[facility] Co de Phone Number [facility] [address] [place] [address] * GLUCOSE, SERUM (12/29/2003 16:06 EST) Glucose, Serum 97 70 - 110 mg/dl [facility] 12/29/2003 16:0 6 EST 12/29/2003 18:46 EST Stephany A Lucille DO CHEMISTRY & BLOOD GA S ORDERABLES Performing Organization Address City/[facility]/ZIP Co de Phone Number [facility] [address] [place] [address] * HDL (12/29/2003 16:06 EST) HDL 38 mg/dl [facility] Comment: Highly Desirable:>60 Desirable:35-60 High Risk:<35 12/29/2003 16:0 6 EST 12/29/2003 18:46 EST Stephany A Lucille DO CHEMISTRY & BLOOD GA S ORDERABLES Performing Organization Address City/[facility]/ZIP Co de Phone Number [facility] [address] [place] [address] * CHOLESTEROL (12/29/2003 16:06 EST) Cholesterol 149 mg/dl [facility] Comment: Desirable:<200 Borderline:200-239 High Risk:>cy=984 12/29/2003 16:0 6 EST 12/29/2003 18:46 EST Stephany Adkins DO CHEMISTRY & BLOOD GA S ORDERABLES Performing Organization Address [facility] Co de Phone Number [facility] [address] [place] [address] * CHLAMYDIA TRACHOMATIS AMPLIFIED PROBE (12/29/2003 16:06 EST) Specimen Description Urine [facility] Result No Chlamydia trachomatis DNA detected by urban design consultant mediated amplification. [facility] Report Status Final [id number] [facility] 12/29/2003 16:0 6 EST 12/29/2003 18:58 EST Stephany Adkins DO MICROBIOLOGY - GENER AL ORDERABLES Performing Organization Address [facility] de Phone Number [facility] [address] [place] [address] documented in this encounter Visit Diagnoses Not on filedocumented in this encounter Care Teams Correspondence Renew Clerk Relationship Specialty Start Date End Date Ladonna Maurer PA [address] [place] [address] PCP - General 05/20/10 06/02/11 documented as of this encounter
--- OUTSIDE RECORDS SUMMARY | 2024-06-10 18:49 | XMS_ITS | Encounter Summary ---
Author Organization [facility] Address [address] [place] [address] Care Team Providers Care Wine Master Name Role Phone Unavailable Primary Care Provider Unavailabl e Encounter Details Date Type Department Care Team (Latest Contact Info) Description 12/29/2003 10:51 EST - 12/29/2003 11:59 EST Hospital Encounter [facility] - Other [address] [place] [address] Grayson Geiger MD Discharge Disposition: Auto Discharge Social History [...] 12/29/2024 10:20 EST Office Visit [facility] Rheumatology & Immunology - [facility] [address] [place], [place] [address] Micaela Hoff MD 111 [facility], [address] [place] [phone] documented as of this encounter Procedures Procedure Name Priority Date/Time Associated Diagnosis Comments CYTOPATHOLOGY Routine 12/29/2003 0:00 EST documented in this encounter Results * CYTOPATHOLOGY (12/29/2003 0:00 EST) Pathology Report: CYTOPATHOLOGY REPORT Reports generated via electronic interface contain original data; however they are lacking the format of the original report. Caution should be taken when reading/interpreti ng unformatted reports. Name: ? TERI CROWE ? Accession #: ? [id number] : ? 1980 (Age: 23) ??F ?Collect Date: ? 12/29/2003 Location: ? [facility] ? Receive Date: ? 01/02/2004 Provider: ?SHIVA MATIAS MD Copy to: ? Specimen/Source: ?ThinPrep Pap Test, Cervix/Endocervix Last Menstrual Period: ? 3 mos ago Treatment History: ? LEEP: 11/04 Other: ? HPVA - HPV testing requested if ASC-US on the current ThinPrep Pap test. ? SPECIMEN ADEQUACY ? Satisfactory for Evaluation - transformation zone component present GENERAL CATEGORIZATION ? Negative for Intraepithelial Lesion or Malignancy ? Document reviewed and electronically signed by: ? GARY Chavez(ASCP) ? Report Date: ??01/04/2004 13:24 End of Report JENIFER TIJERINA 12/29/2003 01/02/2004 Shiva Matias DO PATHOLOGY ORDERABLES [facility] [address] [place] [address] documented in this encounter Visit Diagnoses Not on filedocumented in this encounter
--- OUTSIDE RECORDS SUMMARY | 2024-06-10 18:49 | XMS_ITS | Encounter Summary ---
Author Organization [facility] Address [address] [place] [address] Care Team Providers Care Global Sourcing Manager Name Role Phone Unavailable Primary Care Provider Unavailabl e Encounter Details Date Type Department Care Team (Latest Contact Info) Description 02/23/2006 17:24 EDT Hospital Encounter [facility] - [address] [phone] Emergency, MD Fede Discharge Disposition: Home or [...] 12/29/2024 10:20 EST Office Visit [facility] Rheumatology & Immunology - [facility] [address] [place], [place] [address] Micaela Hoff MD 111 [facility], [address] [place] [phone] documented as of this encounter Visit Diagnoses Not on filedocumented in this encounter
--- OUTSIDE RECORDS SUMMARY | 2024-06-10 18:49 | XMS_ITS | Encounter Summary ---
Author Organization [facility] Address [address] [place] [address] Care Team Providers Care User Experience Team Lead Name Role Phone Ladonna Maurer Primary Care Provider [phone] Encounter Details Date Type Department Care Team (Late st Contact Info) Description 02/11/2006 Results Only [facility] - Maple conversion [address] [place] [address] Robin Robb MD [address] [place] [phone] Social History Tobacco Use Types Packs/Day Years [...] [facility] Rheumatology & Immunology - [facility] [address] [place], [place] [phone] Micaela Hoff MD 111 [facility], [address] [place] [address] documented as of this encounter Procedures Procedure Name Priority Date/Time Associated Diagnosis Comments CYTOPATHOLOGY Routine 02/11/2006 0:00 EDT documented in this encounter Results * CYTOPATHOLOGY (02/11/2006 0:00 EDT) Pathology Report: CYTOPATHOLOGY REPORT Reports generated via electronic interface contain original data; however they are lacking the format of the original report. Caution should be taken when reading/interpreti ng unformatted reports. Name: ? TERI CROWE ? Accession #: ? [id number] : ? 1980 (Age: 25) ??F ?Collect Date: ? 02/11/2006 Location: ? [facility] ? Receive Date: ? 02/13/2006 Provider: ?TARIK ROBB MD Copy to: ? Specimen/Source: ?ThinPrep Pap Test, Cervix/Endocervix, processed on [employer] ThinPrep Imaging System, with manual evaluation Last Menstrual Period: ? 02/04/06 Other: ? HPVA - HPV testing requested if ASC-US on the current ThinPrep Pap test. ? SPECIMEN ADEQUACY ? Satisfactory for Evaluation - transformation zone component present GENERAL CATEGORIZATION ? Negative for Intraepithelial Lesion or Malignancy ? Document reviewed and electronically signed by: ? GARY Rosario(ASCP) ? Report Date: ??02/16/2006 13:46 End of Report JENIFER TIJERINA 02/11/2006 02/13/2006 Robin Robb MD PATHOLOGY ORD ERABLES [facility] [address] [place] [address] documented in this encounter Visit Diagnoses Not on filedocumented in this encounter Care Teams User Experience Team Lead Relationship Specialty Start Date End Date Ladonna Maurer PA [address] [place] [address] PCP - General 05/20/10 06/02/11 documented as of this encounter
--- OUTSIDE RECORDS SUMMARY | 2024-06-10 18:49 | XMS_ITS | Encounter Summary ---
Author Organization [facility] Address [address] [place] [address] Care Team Providers Care Vice Chair Name Role Phone Unavailable Primary Care Provider Unavailabl e Encounter Details Date Type Department Care Team (Latest Contact Info) Description 06/20/2004 12:36 EDT Hospital Encounter [address] [address] Rehan Ovetron MD [address] [place] [phone] Discharge Disposition: Auto Discharge Social History Tobacco [...] 12/29/2024 10:20 EST Office Visit [facility] Rheumatology & Immunology [address] [phone] Micaela Hoff MD 111 [facility], [address] [place] [address] documented as of this encounter Procedures Procedure Name Priority Date/Time Associated Diagnosis Comments [facility] CHEMICAL MACHINE TENDER Routine 06/25/2004 17:30 EDT [place] HYSTEROSALPINGOGRAM Routine 4 14:58 EDT documented in this encounter Results * [facility] CHEMICAL MACHINE TENDER (06/25/2004 17:30 EDT) Anatomical Region Laterality Modality Other 06/25/2004 17:3 0 EDT Narrative 07/17/2009 9:37 EDT [facility] TRANSVAGINAL ULTRASOUND - 06/25/04 INDICATION: Bicornuate versus septate uterus. FINDINGS: Cervix is normal. Uterine fundus is anterior. The uterus measured 52.1 x 45.5 x 29.2 sagittal, transverse, and AP respectively. The endometrial cavity was divided into two portions in the upper half of the fundus. The myometrium had a single external fundal surface. The right and left ovaries were normal with overall dimensions of 18.4 x 36.3 x 16.7 and 17.9 x 12.2 x 18.4 right and left ovaries respectively. There is no fluid in the cul-de-sac. IMPRESSION: Septate uterus. PLAN: See Dr. Garay's note. 06/25/04 T - 06/26/04 Procedure Note Robin Garay MD - 07/17/2009 [facility] TRANSVAGINAL ULTRASOUND - 06/25/04 INDICATION: Bicornuate versus septate uterus. FINDINGS: Cervix is normal. Uterine fundus is anterior. The uterus measured 52.1 x 45.5 x 29.2 sagittal, transverse, and AP respectively. The endometrial cavity was divided into two portions in the upper half of the fundus. The myometrium had a single external fundal surface. The right and left ovaries were normal with overall dimensions of 18.4 x 36.3 x 16.7 and 17.9 x 12.2 x 18.4 right and left ovaries respectively. There is no fluid in the cul-de-sac. IMPRESSION: Septate uterus. PLAN: See Dr. Garay's note. 06/25/04 T - 06/26/04 Rehan Overton MD [facility] ORDERABLE S * FL HYSTEROSALPINGOGRAM (06/20/2004 14:58 EDT) Anatomical Region Laterality Modality Other 06/20/2004 14:5 8 EDT Impressions 07/16/2009 11:19 EDT IMPRESSION: Bicornuate uterus, otherwise normal examination. /lupe Narrative 07/16/2009 11:19 EDT [facility]- INFERTILITY R/O TUBAL PATENCY (DR. YEIMY EASON TO DO) FLUOROSCOPIC HYSTEROSALPINGOGRAM INDICATION FOR STUDY: Infertility, rule out tubal patency. FINDINGS: A bicornuate uterus is visualized. There is normal filling of the uterine cavity and the fallopian tubes bilaterally. There is normal spilling of contrast material bilaterally. Procedure Note Patti Acuna DMD / Kenton Ellsworth MD - 07/16/2009 [facility]- INFERTILITY R/O TUBAL PATENCY (DR. YEIMY EASON TO DO) FLUOROSCOPIC HYSTEROSALPINGOGRAM INDICATION FOR STUDY: Infertility, rule out tubal patency. FINDINGS: A bicornuate uterus is visualized. There is normal filling of the uterine cavity and the fallopian tubes bilaterally. There is normal spilling of contrast material bilaterally. IMPRESSION IMPRESSION: Bicornuate uterus, otherwise normal examination. /lupe Rehan Overton MD IMG FLUOROSCOPY HAIM PARKS documented in this encounter Visit Diagnoses Not on filedocumented in this encounter
--- OUTSIDE RECORDS SUMMARY | 2024-06-10 18:49 | XMS_ITS | Encounter Summary ---
Author Organization [facility] Address [address] [place] [address] Care Team Providers Care Liquor Inspector Name Role Phone Unavailable Primary Care Provider Unavailabl e Encounter Details Date Type Department Care Team (Late st Contact Info) Description 01/09/2005 9:39 EST - 01/09/2005 11:59 EST Hospital Encounter [facility] - Other [address] [place], [place] [address] [phone] Gustavo Smith MD [address] [phone] Discharge Disposition: Auto Discharge Social History Tobacco [...] Description 12/29/2024 10:20 EST Office Visit [facility] Rheumatology & Immunology - [facility] [address] [place], [place] [phone] Micaela Hoff MD 111 [facility], [address] [place] [phone] documented as of this encounter Visit Diagnoses Not on filedocumented in this encounter
--- OUTSIDE RECORDS SUMMARY | 2024-06-10 18:49 | XMS_ITS | Encounter Summary ---
Author Organization [facility] Address [facility] [place] [address] Care Team Providers Care Wheel And Caster Repairer Name Role Phone Anuja Cai APRN Primary Care Provider [phone] Encounter Details Date Type Department Care Team (Latest Contact Info) Description 02/19/2024 Travel Social History Tobacco Use Types Packs/Day [...] 12:00 PM EDT Office [place] [address] Britt Zurita MD [facility] [place] [address] documented as of this encounter Visit Diagnoses Not on filedocumented in this encounter Care Teams Wheel And Caster Repairer Relationship Specialty Start Date End Date Anuja Cai APRN [address] [place], [place] [phone] PCP - General Internal Medicine 07/25/21 documented as of this encounter
--- OUTSIDE RECORDS SUMMARY | 2024-06-10 18:49 | XMS_ITS | Encounter Summary ---
Author Organization [facility] Address [address] [place] [address] Care Team Providers Care Dye Tank Tender Name Role Phone Unavailable Primary Care Provider Unavailabl e Encounter Details Date Type Department Care Team (Late st Contact Info) Description 07/06/2002 8:14 EDT Hospital Encounter [facility] - Other [address] [place] [address] Ashley Villegas FNP [address] [place] [phone] Unknown, Provider, Social History Tobacco Use Types [...] Description 12/29/2024 10:20 EST Office Visit [facility] Rheumatology & Immunology - [address] [address] Micaela Hoff MD [address] [place] [address], [address] [place] [phone] documented as of this encounter Procedures Procedure Name Priority Date/Time Associated Diagnosis Comments CYTOPATHOLOGY Routine 07/06/2002 0:00 EDT documented in this encounter Results * CYTOPATHOLOGY (07/06/2002 0:00 EDT) Pathology Report: CYTOPATHOLOGY REPORT Reports generated via electronic interface contain original data; however they are lacking the format of the original report. Caution should be taken when reading/interpreti ng unformatted reports. Name: ? TERI LAKE ? Accession #: ? [id number] : ? 1980 (Age: 22) ??F ?Collect Date: ? 07/06/2002 Location: ? [facility] ? Receive Date: ? 07/11/2002 Provider: ?ASHLEY VILLEGAS [facility] Copy to: ? [facility] ? [facility] ?[address] ?[place] [id number] ? Specimen/Source: ?ThinPrep Pap Test, Cervix Last Menstrual Period: ? 06/29/02 Previous Gynecologic Pathology: ? ASC-US: 04/02 ? SPECIMEN ADEQUACY ? Satisfactory for Evaluation - transformation zone component present GENERAL CATEGORIZATION ? Epithelial Cell Abnormality INTERPRETATION ? Squamous Cell Abnormality - Atypical squamous cells, undetermined significance. EDUCATIONAL NOTES/RECOMMENDATI ONS ? [facility] recommends following the 2001 Consensus Guidelines for the Management of Women with Cervical Cytological Abnormalities (BE,2002;287:212 0-9). Management algorithms have been distributed by [facility] and are available online at www.ASCCP.org. ? Document reviewed and electronically signed by: ? JASPREET COTTRELL MD ? 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
--- OUTSIDE RECORDS SUMMARY | 2024-06-10 18:49 | XMS_ITS | Encounter Summary ---
Author Organization [facility] Address [address] [place] [address] Care Team Providers Care Finisher Special Stocks Name Role Phone Ladonna Maurer Primary Care Provider Encounter Details Date Type Department Care Team (Late st Contact Info) Description 03/03/2003 Results Only [facility] - Maple conversion [address] [place] [address] [address] [address] Social History Tobacco Use Types Packs/Day Years Used Date Smoking Tobacco: Never Assessed Sex and Gender Information Value Date Recorded Sex Assigned at Not on file Gender Identity Not on file Sexual Orientation Not on file documented as of this encounter Plan of Treatment Upcoming Encounters Date Type Department Care Team (Late st Contact Info) Description 12/29/2024 10:20 EST Office Visit [facility] Rheumatology & Immunology - [facility] [address] [place], [place] [address] Micaela Hoff MD 111 [facility], [address] [place] [address] documented as of this encounter Procedures Procedure Name Priority Date/Time Associated Diagnosis Comments CYTOPATHOLOGY Routine 03/03/2003 0:00 EDT documented in this encounter Results * CYTOPATHOLOGY (03/03/2003 0:00 EDT) Pathology Report: CYTOPATHOLOGY REPORT Reports generated via electronic interface contain original data; however they are lacking the format of the original report. Caution should be taken when reading/interpreti ng unformatted reports. Name: ? TERI CROWE ? Accession #: ? [id number] : ? 1980 (Age: 22) ??F ?Collect Date: ? 03/03/2003 Location: ? [facility] ? Receive Date: ? 03/07/2003 Provider: ?ASHLEY DOVE Copy to: ? Specimen/Source: ?ThinPrep Pap Test, Cervix/Endocervix Last Menstrual Period: ? 02/06/03 Previous Gynecologic Pathology: ? HPV Treatment History: ? LEEP: 11/04 ? SPECIMEN ADEQUACY ? Satisfactory for Evaluation - transformation zone component present GENERAL CATEGORIZATION ? Negative for Intraepithelial Lesion or Malignancy ? Document reviewed and electronically signed by: ? SHARI Menendez(ASCP) ? Report Date: ??03/13/2003 09:37 End of Report JENIFER TIJERINA 03/03/2003 03/07/2003 Ashley BLAIRP PATHOLOGY ORDERABLES J[facility] [address] [place] [address] documented in this encounter Visit Diagnoses Not on filedocumented in this encounter Care Teams Finisher Special Stocks Relationship Specialty Start Date End Date Ladonna Maurer PA [address] [place] [address] PCP - General 05/20/10 06/02/11 documented as of this encounter
--- OUTSIDE RECORDS SUMMARY | 2024-06-10 18:49 | XMS_ITS | Encounter Summary ---
Author Organization [facility] Address [address] [place] [address] Care Team Providers Care Wire Galvanizer Name Role Phone Ladonna Maurer Primary Care Provider [phone] Encounter Details Date Type Department Care Team (Late st Contact Info) Description 01/09/2005 Results Only [facility] Family Medicine [address] [phone] Gustavo Smith MD [address] [phone] Social History Tobacco Use Types Packs/Day Years [...] Visit [facility] Rheumatology & Immunology - [address] [phone] Micaela Hoff MD [address] [facility], [address] [place] [address] documented as of this encounter Procedures Procedure Name Priority Date/Time Associated Diagnosis Comments RUBELLA IGG AB Routine 01/09/2005 9:39 EST HEPATITIS C AB W REFLEX TO HCV RNA BY PCR Routine 01/09/2005 9:39 EST HEPATITIS B SURFACE ANTIBODY Routine 01/09/2005 9:39 EST HIV 1/2 ANTIGEN AND ANTIBODY, 4TH GENERATION Routine 01/09/2005 9:39 EST LIPID PROFILE (INCLUDES CHOLESTEROL, TRIGLYCERIDES, HDL, LDL) Routine 01/09/2005 9:39 EST documented in this encounter Results * RUBELLA IGG AB (01/09/2005 9:39 EST) Rubella IgG Scr Antibody detected [facility] 01/09/2005 9:39 EST 01/09/2005 16:52 EST Gustavo Smith MD HISTORICAL LAB FOR S Q LOAD Performing Organization Address [facility] de Phone Number [facility] [address] [place] [address] * LIPID PROFILE (INCLUDES CHOLESTEROL, TRIGLYCERIDES, HDL, LDL) (01/09/2005 9:39 EST) Cholesterol 130 mg/dl [facility] Comment: Desirable:<200 Borderline:200-239 High Risk:>bc=134 Triglycerides 59 35 - 160 mg/dl [facility] HDL 40 mg/dl [facility] Comment: Highly Desirable:>60 Desirable:35-60 High Risk:<35 LDL, Calculated 78 mg/dl [facility] Comment: Desirable:<130 Borderline:130-159 High Risk:>pt=862 Chol/HDL Ratio 3.3 NARENDRA H[facility]PTON [facility] Fasting? No [facility] 01/09/2005 9:39 EST 01/09/2005 16:52 EST Gustavo Smith MD CHEMISTRY & BLOOD GA S ORDERABLES Performing Organization Address [facility] de Phone Number [facility] [address] [place] [address] * HIV ANTIBODY (01/09/2005 9:39 EST) HIV 1/2 Antibody NONREACT. NR [facility] 01/09/2005 9:39 EST 01/09/2005 16:52 EST Gustavo Smith MD IMMUNOLOGY AND SEROL OGY ORDERABLES Performing Organization Address [facility] de Phone Number [facility] [address] [place] [address] * HEPATITIS C ANTIBODY (01/09/2005 9:39 EST) Hepatitis C Ab Neg FLEKRYSTINA HAMPTON [facility] 01/09/2005 9:39 EST 01/09/2005 16:52 EST Gustavo Smith MD CHEMISTRY & BLOOD GA S ORDERABLES Performing Organization Address [facility] de Phone Number [facility] [address] [place] [address] * HEPATITIS B SURFACE ANTIBODY (01/09/2005 9:39 EST) Hepatitis B Surface Ab Pos [facility] 01/09/2005 9:39 EST 01/09/2005 16:52 EST Gustavo Smith MD CHEMISTRY & BLOOD GA S ORDERABLES Performing Organization Address [facility] de Phone Number [facility] [address] [place] [address] documented in this encounter Visit Diagnoses Not on filedocumented in this encounter Care Teams Wire Galvanizer Relationship Specialty Start Date End Date Ladonna Maurer PA [address] [place] [address] PCP - General 05/20/10 06/02/11 documented as of this encounter
--- OUTSIDE RECORDS SUMMARY | 2024-06-10 18:49 | XMS_ITS | Encounter Summary ---
Author Organization [facility] [place] [address] Care Team Providers Care Washer Hand Name Role Phone Anuja Cai HUANG Primary Care Provider [phone] Reason for Visit * Reason Comments Medication Refill Encounter Details Date Type Department Care Team (Late Contact Info) Description 04/18/2024 [place] [phone] Britt Zurita MD [facility] [place] [address] Polyarthralgia Social History Tobacco Use Types Packs/Day [...] 12:00 PM EDT Office [place] [phone] Britt Zurita MD [facility] [place] [address] documented as of this encounter Visit Diagnoses Diagnosis Polyarthralgia Pain in joint, multiple sites documented in this encounter Care Teams Washer Hand Relationship Specialty Start Date End Date Anuja Cai APRN [address] [place] [address] PCP - General Internal Medicine 07/25/21 documented as of this encounter
--- OUTSIDE RECORDS SUMMARY | 2024-06-10 18:49 | XMS_ITS | Encounter Summary ---
Author Organization [facility] Address [address] [place] [address] Care Team Providers Care Women Specialist Name Role Phone Ladonna Maurer Primary Care Provider [phone] Encounter Details Date Type Department Care Team (Late st Contact Info) Description 11/18/2004 Results Only [facility] Family Medicine [address] [address] Valeria Smith MD [address] [phone] Social History Tobacco Use Types Packs/Day Years Used Date Smoking Tobacco: Never Assessed Sex and Gender Information Value Date Recorded Sex Assigned at Not on file Gender Identity Not on file Sexual Orientation Not on file documented as of this encounter Plan of Treatment Upcoming Encounters Date Type Department Care Team (Late st Contact Info) Description 12/29/2024 10:20 EST Office Visit [facility] Rheumatology & Immunology - [address] [phone] Micaela Hoff MD 111 [facility], [address] [place] [address] documented as of this encounter Procedures Procedure Name Priority Date/Time Associated Diagnosis Comments CYTOPATHOLOGY Routine 11/18/2004 0:00 EST documented in this encounter Results * CYTOPATHOLOGY (11/18/2004 0:00 EST) Pathology Report: CYTOPATHOLOGY REPORT Reports generated via electronic interface contain original data; however they are lacking the format of the original report. Caution should be taken when reading/interpreti ng unformatted reports. Name: ? TERI CROWE ? Accession #: ? [id number] : ? 1980 (Age: 24) ??F ?Collect Date: ? 11/18/2004 Location: ? [facility] ? Receive Date: ? 11/20/2004 Provider: ?VALERIA SMITH MD Copy to: ? Specimen/Source: ?ThinPrep Pap Test, Cervix/Endocervix Last Menstrual Period: ? 11/08/04 Other: ? HPVA - HPV testing requested if ASC-US on the current ThinPrep Pap test. ? SPECIMEN ADEQUACY ? Satisfactory for Evaluation - transformation zone component present GENERAL CATEGORIZATION ? Negative for Intraepithelial Lesion or Malignancy ? Document reviewed and electronically signed by: ? GARY Fischer(ASCP) ? Report Date: ??11/21/2004 07:59 End of Report JENIFER TIJERINA 11/18/2004 11/20/2004 Valeria Smith MD PATHOLOGY ORDERABLES [facility] [address] [place] [address] documented in this encounter Visit Diagnoses Not on filedocumented in this encounter Care Teams Women Specialist Relationship Specialty Start Date End Date Ladonna Maurer PA [address] [place] [address] PCP - General 05/20/10 06/02/11 documented as of this encounter
--- OUTSIDE RECORDS SUMMARY | 2024-06-10 18:49 | XMS_ITS | Encounter Summary ---
Author Organization [facility] Address [facility] [place] [address] Care Team Providers Care Beading Installer Name Role Phone Anuja Cai APRN Primary Care Provider [phone] Encounter Details Date Type Department Care Team (Latest Contact Info) Description 02/16/2024 Travel Social History Tobacco Use Types Packs/Day [...] 12:00 PM EDT Office [place] [address] Britt Zurita MD [facility] [place] [address] documented as of this encounter Visit Diagnoses Not on filedocumented in this encounter Care Teams Beading Installer Relationship Specialty Start Date End Date Anuja Cai APRN [address] [place], [place] [address] PCP - General Internal Medicine 07/25/21 documented as of this encounter
--- OUTSIDE RECORDS SUMMARY | 2024-06-10 18:49 | XMS_ITS | Encounter Summary ---
Author Organization [facility] Address [address] [place] [address] Care Team Providers Care Vegetable Ii Farmworker Name Role Phone Unavailable Primary Care Provider Unavailabl e Encounter Details Date Type Department Care Team (Latest Contact Info) Description 01/18/2001 15:59 EST Hospital Encounter [facility] - Other [address] [place] [address] Georgiana Roberto MD [address] [place] [phone] Unknown, Provider, Discharge Disposition: Auto Discharge Social History Tobacco [...] [facility] Rheumatology & Immunology - [facility] [address], [place] [address] Micaela Hoff MD [address] [facility], [address] [place] [phone] documented as of this encounter Procedures Procedure Name Priority Date/Time Associated Diagnosis Comments CYTOPATHOLOGY Routine 01/18/2001 0:00 EST documented in this encounter Results * CYTOPATHOLOGY (01/18/2001 0:00 EST) Pathology Report: CYTOPATHOLOGY REPORT Reports generated via electronic interface contain original data; however they are lacking the format of the original report. Caution should be taken when reading/interpreti ng unformatted reports. Name: ? ETRI LAKE ? Accession #: ? [id number] : ? 1980 (Age: 20) ??F ?Collect Date: ? 01/18/2001 Location: ? [facility] ? Receive Date: ? 01/25/2001 Provider: ?GEORGIANA ROBERTO MD Copy to: ? [facility] ? [facility] ? [address] ? [place] [address] ? Specimen/Source: ?ThinPrep Pap Test, Cervix/Endocervix Last Menstrual Period: ? /5 Other: ? HPVL - HPV testing requested if LSIL/ASCUS/CRICKET on the current ThinPrep Pap test. ? SPECIMEN ADEQUACY ? Satisfactory for evaluation. GENERAL CATEGORIZATION ? Within Normal Limits ? Document reviewed and electronically signed by: ? GARY Felder(ASCP) ? Report Date: ??01/26/2001 10:22 End of Report [facility] 01/18/2001 01/25/2001 Georgiana Zhu MD PATHOLOGY ORDERABLES Performing Organization Address City/State/[facility] Co de Phone Number [facility] [address] [place] [address] documented in this encounter Visit Diagnoses Not on filedocumented in this encounter
--- OUTSIDE RECORDS SUMMARY | 2024-06-10 18:49 | XMS_ITS | Encounter Summary ---
Author Organization [facility] Address [address] [place] [address] Care Team Providers Care Inbound Telemarketer Name Role Phone Unavailable Primary Care Provider Unavailabl e Encounter Details Date Type Department Care Team (Late st Contact Info) Description 11/18/2004 13:04 EST Hospital Encounter [facility] - Other [address], [place] [address] Gustavo Smith MD [address] [phone] Social History Tobacco Use Types Packs/Day Years [...] Description 12/29/2024 10:20 EST Office Visit [facility] Rheumatology & Immunology - [facility] [address], [place] [phone] Micaela Hoff MD 111 [facility], [facility], [address] [place] [address] documented as of this encounter Visit Diagnoses Not on filedocumented in this encounter Additional Health Concerns Infection Onset Date Last Indicated Resolved Time 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
--- OUTSIDE RECORDS SUMMARY | 2024-06-10 18:49 | XMS_ITS | Encounter Summary ---
Author Organization [facility] Address [address] [place] [address] Care Team Providers Care Auto Electrician Name Role Phone Ladonna Maurer Primary Care Provider [phone] Encounter Details Date Type Department Care Team (Late st Contact Info) Description 12/09/2004 Results Only [facility] - [facility] [address] [place] [phone] Laurel Blount MD [address] [place] [address] Social History Tobacco Use Types Packs/Day Years [...] [facility] Rheumatology & Immunology - [address] [phone] Micaela Hoff MD 111 [facility], [address] [place] [address] documented as of this encounter Procedures Procedure Name Priority Date/Time Associated Diagnosis Comments MONO-TEST Routine 12/09/2004 16:06 EST COMPLETE BLOOD COUNT Routine 12/09/2004 16:06 EST TSH Routine 12/09/2004 16:06 EST documented in this encounter Results * TSH (12/09/2004 16:06 EST) TSH 1.63 0.35 - 5.50 uIU/ml [facility] 12/09/2004 16:0 6 EST 12/09/2004 19:43 EST Laurel Blount MD CHEMISTRY & BLOO D GAS ORDERABLES Performing Organization Address [facility] Co de Phone Number [facility] [address] [place] [address] * MONO-TEST (12/09/2004 16:06 EST) Pathologist [facility]-Test Neg NEG [facility] 12/09/2004 16:0 6 EST 12/09/2004 19:43 EST Laurel Blount MD CHEMISTRY & BLOO D GAS ORDERABLES Performing Organization Address [facility] de Phone Number [facility] [address] [place] [address] * HEMAGRAM (12/09/2004 16:06 EST) WBC 7.02 4.0 - 12.4 K/cmm [facility] RBC 4.27 3.86 - 5.04 M/cmm [facility] Hemoglobin 12.8 11.6 - 15.2 gm/dl [facility] HCT 36.9 34.9 - 44.4 % [facility] MCV 86 81 - 98 fl [facility] MCH 29.9 26.7 - 33.3 pg [facility] MCHC 34.6 32.1 - 35.9 gm/dl [facility] PLT 264 141 - 320 K/cmm [facility] RDW-CV 12.8 11.7 - 14.6 % [facility] 12/09/2004 16:0 6 EST 12/09/2004 19:43 EST Laurel Blount MD HEMATOLOGY & PF4 ORDERABLES Performing Organization Address City/State/[facility] Co de Phone Number [facility] [address] [place] [address] documented in this encounter Visit Diagnoses Not on filedocumented in this encounter Care Teams Auto Electrician Relationship Specialty Start Date End Date Ladonna Maurer PA [address] [place] [address] PCP - General 05/20/10 06/02/11 documented as of this encounter
--- OUTSIDE RECORDS SUMMARY | 2024-06-10 18:49 | XMS_ITS | Encounter Summary ---
Author Organization [facility] Address [address] [place] [address] Care Team Providers Care Machine Milker Name Role Phone Unavailable Primary Care Provider Unavailabl e Encounter Details Date Type Department Care Team (Latest Contact Info) Description 01/25/2006 2:33 EST - 01/25/2006 11:59 EST Hospital Encounter [facility] Emergency Department - [address] [address] Emergency, MD Fede Discharge Disposition: Home or [...] Visit [facility] Rheumatology & Immunology - [address] [address] Micaela Hoff MD [address] [place] [address], [address] [place] [phone] documented as of this encounter Visit Diagnoses Not on filedocumented in this encounter
--- OUTSIDE RECORDS SUMMARY | 2024-06-10 18:49 | XMS_ITS | Encounter Summary ---
Author Organization [facility] Address [address] [place] [address] Care Team Providers Care Tieing Machine Operator Name Role Phone Unavailable Primary Care Provider Unavailabl e Encounter Details Date Type Department Care Team (Late st Contact Info) Description 12/09/2004 16:17 EST Hospital Encounter [facility] - Other [address] [place] [address] Susy Aguilera MD [address] [place] [phone] Social History Tobacco Use Types Packs/Day Years [...] Info) Description 12/29/2024 10:20 EST Office Visit [facility] Rheumatology & Immunology - [facility] [address] [place], [place] [phone] Micaela Hoff MD [address] [facility], [address] [place] [phone] documented as of this encounter Procedures Procedure Name Priority Date/Time Associated Diagnosis Comments ALF BID MANAGER Routine 01/06/2005 3:30 EST documented in this encounter Results * ALF BID MANAGER (01/06/2005 3:30 EST) Anatomical Region Laterality Modality Other 01/06/2005 3:30 EST Narrative 06/28/2009 11:21 EDT [facility] TRANSVAGINAL ULTRASOUND/SONOHYSTEROGRAM - 01/06/05 INDICATION: S/p hysteroscopic resection of uterine septum. FINDINGS: The uterine size was as previously described. The endometrial stripe measured 7.4 and the cervix 2.8 cm from internal to external os. There was no funneling of the lower uterine segment. Instillation of saline revealed a normal uterine cavity for 85% of the cavity with a small area of funneling into each cornua at the very anterior portion of the cavity. Both ovaries were normal with the right measuring 25.6 and the left 24.5 overall. There was no fluid in the cul-de-sac. IMPRESSION: Uterine septum reduced by 85% compared to preop with normal length cervix. PLAN: Conception. D - 01/06/05 T - 01/07/05 Procedure Note Robin Garay MD - 06/28/2009 [facility] TRANSVAGINAL ULTRASOUND/SONOHYSTEROGRAM - 01/06/05 INDICATION: S/p hysteroscopic resection of uterine septum. FINDINGS: The uterine size was as previously described. The endometrial stripe measured 7.4 and the cervix 2.8 cm from internal to external os. There was no funneling of the lower uterine segment. Instillation of saline revealed a normal uterine cavity for 85% of the cavity with a small area of funneling into each cornua at the very anterior portion of the cavity. Both ovaries were normal with the right measuring 25.6 and the left 24.5 overall. There was no fluid in the cul-de-sac. IMPRESSION: Uterine septum reduced by 85% compared to preop with normal length cervix. PLAN: Conception. 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
--- OUTSIDE RECORDS SUMMARY | 2024-06-10 18:49 | XMS_ITS | Encounter Summary ---
Author Organization [facility] Address [facility] [place] [address] Care Team Providers Care Zigzagger Name Role Phone Anuja Cai APRN Primary Care Provider [phone] Encounter Details Date Type Department Care Team (Latest Contact Info) Description 01/26/2024 12:29 PM EDT - 01/26/2024 11:59 PM EDT Hospital Encounter XRay at [address] [place] [address] Kp Erazo MD [facility] [place] [address] Right knee pain, unspecified chronicity Discharge Disposition: Home Social History Tobacco Use [...] Sig Dispensed Refills Start Date End Date cholecalciferol, vitamin D3, (VITAMIN D3 ORAL) Take 50,000 Units by mouth once a week. 11/28/2022 famotidine (Pepcid) 20 mg tablet Take 20 mg by mouth daily as needed. 09/21/2023 acetaminophen (Tylenol) 325 mg tablet Take 650 mg by mouth every 6 hours as needed. 07/20/2014 lisinopriL (Zestril) 10 mg Tablet Take 10 mg by mouth daily. 05/13/2022 levothyroxine (Synthroid) 112 mcg Tablet Take 112 mcg by mouth daily. Will take 125 mcg after today 02/16/24 07/29/2021 fluticasone propionate (Flonase) 50 mcg/actuation [place], Suspension SPRAY ONE SPRAY IN EACH NOSTRIL TWICE A DAY 08/07/2021 fluconazole (Diflucan) 150 mg Tablet Take 150 mg by mouth as needed. 07/25/2021 naproxen (Naprosyn) 500 mg tabletIndications:Polya rthralgia Take 1 tablet by mouth 2 times daily (with meals). 60 tablet 3 04/16/2023 04/18/2024 cetirizine (ZyrTEC) 1 mg/mL Solution Take by mouth. 02/16/2024 MiregoTouch Verio test strips Strip 11/20/2022 02/16/2024 blood-glucose meter (FREESTYLE) Kit 1 Device Daily. 06/12/2022 docusate sodium (Colace) 100 mg capsule Take 100 mg by mouth Twice daily as needed. 07/20/2014 02/16/2024 ibuprofen (Advil) 200 mg tablet 0 Refill(s) 11/28/2022 02/16/2024 documented as of this encounter Plan of Treatment Upcoming Encounters Date Type Department Care Team (Late st Contact Info) Description 08/17/2024 12:00 PM EDT Office Visit [place] [address] Britt Zurita MD [facility] [place] [address] documented as of this encounter Procedures Procedure Name Priority Date/Time Associated Diagnosis Comments XR KNEE AP & LAT RIGHT Routine 01/26/2024 12:42 PM EDT Right knee pain, unspecified chronicity documented in this encounter Results * XR Knee 1-2 [...] who have questions please contact the health healthcare project manager that requested your imaging first. ? Narrative 01/26/2024 2:42 PM EDT EXAMINATION: XR [...] patients who have questions please contactthe health healthcare project manager that requested your imaging first. Kp Erazo MD IMG DX ORDERABLES documented in this encounter Visit Diagnoses Diagnosis Right knee pain, unspecified chronicity documented in this encounter Care Teams Zigzagger Relationship Specialty Start Date End Date Anuja Cai APRN [address] [facility] [address] PCP - General Internal Medicine 07/25/21 documented as of this encounter
--- OUTSIDE RECORDS SUMMARY | 2024-06-10 18:49 | XMS_ITS | Encounter Summary ---
Author Organization [facility] [address] Care Team Providers Care Commodity Management Specialist Name Role Phone Anuja Cai APRN Primary Care Provider [phone] Encounter Details Date Type Department Care Team ([facility] st Contact Info) Description 04/16/2023 8:00 AM EDT TH Visit (TeleHealth) [place] [phone] Britt Zurita MD [facility] [place] [address] Polyarthralgia Social History Tobacco Use Types Packs/Day [...] AM EDT documented as of this encounter Progress Notes * Britt Zurita MD - 04/16/2023 8:00 AM EDT Rheumatology Outpatient Video Visit due to COVID19 PCP: HUANG Hammond is a 42 y.o. female who we are seeing for [...] fine speckled pattern. Interval History: Patient reports no change in symptoms since the last visit. She continues to have pain and stiffness in the hands and the lateral side of the left foot. She has morning stiffness of around 1 to 2 hours. ROS (positives in bold): Gen: No fevers, no chills, no night sweats Pulm: No SOB CV: No CP Abd: No abd pain, no nausea, no vomiting, no diarrhea MSK: see HPI Physical examination: Skin: No rash seen Musculoskeletal: No swelling across hands, full fist and claw, full range of motion in wrists, elbows and shoulders Pulmonary: Not tachypneic Neuro: Alert and oriented x3, speaks in full sentences Assessment/Plan: Teri Smith is a 42 y.o. female with a past medical history of GERD, obstructive sleep apnea, hypothyroidism, prediabetes, IBS, and PTSD who is presenting for evaluation of polyarthralgia in the setting of positive LIZZIE. The patient reported longstanding polyarthralgia including her shoulders, hips and most recently hands and the left foot. She reported morning stiffness of around 1-2 hours andalso numbness in the fingers sometimes. She endorsed having a poor sleep quality and she wakes up tired. She had a sleep study a year and a half ago and apparently she did have ? Mild sleep apnea andwas advised to sleep on her back. She reported she reports being photosensitive, and has dry eyes. She had 2 spontaneous abortions at the gestational age of 8 weeks and 20 weeks and apparently this was attributed to incompetent cervix. Physical examination did not reveal any evidence of synovitis, rash, skin thickening, enthesitis or dactylitis. She was noted to have multiple tender points though. Her previous labs showed mildly elevated rheumatoid factor, negative anti-CCP antibody, normal ESRand a positive LIZZIE in the titer of 1: 320 and a dense fine speckled pattern. Patient reports no change in symptoms since the last visit. She continues to have pain and stiffness in the hands and the lateral side of the left foot. She has morning stiffness of around 1 to 2 hours. Lab work-up here last time showed negative LIZZIE, mildly elevated C4, RF and CRP. The differential diagnosis for patient's clinical presentation includes an inflammatory arthritis such as rheumatoid arthritis/psoriatic arthritis versus a systemic disease like lupus or Sjogren syndrome versus a mechanical etiology including fibromyalgia. The presence of hand symptoms and morning stiffness makes me somewhat suspicious about an inflammatory arthritis but she does not have any relevant findings on examination. I would check an x-ray of her hands and feet to rule out any erosive disease. Meanwhile, we will also place her on prescription strength naproxen to gauge response. Eventhough her LIZZIE is positive, she does not seem to have many features related to lupus or Sjogren's. It is possible that she has a positive LIZZIE due to her thyroid disease. With the presence of multipletender points, fibromyalgia could explain her symptoms. Discussed with her in detail about the management of fibromyalgia. Follow-up in 3 months. Patient agreeable to video visit. All questions answered for patient. Total video encounter time: 30 minutes Britt Zurita MD [place], [address] documented in this encounter Plan of Treatment Upcoming Encounters Date Type Department Care Team (Late st Contact Info) Description 08/17/2024 12:00 PM EDT Office [place] [address] Britt Zurita MD [facility] [place] [address] documented as of this encounter Visit Diagnoses Diagnosis Polyarthralgia Pain in joint, multiple sites documented in this encounter Care Teams Commodity Management Specialist Relationship Specialty Start Date End Date Anuja Cai, ANCHOR OPERATOR [address] [place] [address] PCP - General Internal Medicine 07/25/21 documented as of this encounter
--- OUTSIDE RECORDS SUMMARY | 2024-06-10 18:49 | XMS_ITS | Encounter Summary ---
Author Organization [facility] [place] [address] Care Team Providers Care Marine Pipefitter Name Role Phone Anuja Cai APRN Primary Care Provider + [phone] Reason for Referral * Physical Therapy (Routine) - Authorized Specialty Diagnoses / Procedures Referred By Ehsan patel Referred To Contact Physical Therapy Diagnoses Right knee pain, unspecified chronicity Kp Erazo MD [facility] DR [place] [address] Physical Therapy, [address] [address] Referral ID Status Reason Start Date Expiration Date Visits Requested Visits Authorized [id number] Authorized Evaluate and Treat 01/26/2024 07/24/2024 12 12 Reason for Visit * Reason Comments Establish Care XR & MRI (IN EDH) R KNEE ACL TEAR AND OSTEOCHONDRAL LESION LATERAL FEMORAL CONDYLE DOI: 30 YEARS AGO SURGICAL DISCUSSION ? RADHA * Consultation (Routine) - Closed Specialty Diagnoses / Procedures Referred By Contmaya t Referred To Contact Orthopaedics Diagnoses Disorder of bone R KNEE ACL TEAR AND OSTEOCHONDRAL LESION LATERAL FEMORAL CONDYLE Tabatha Carmen, FINISHER ACCORDION [address] [place] [address] [facility] [address] [place] [phone] Referral ID Status Reason Start Date Expiration Date V isits Requested Visits Authorized [id number] Closed Consult, Test & Treat PCP Updated and/or Approved 02/03/2023 02/03/2024 6 6 Encounter Details Date Type Department Care Team (Late st Contact Info) Description 01/26/2024 1:00 PM EDT Office [place] [address] Kp Erazo MD [facility] [address] [place] [address] Right knee pain, unspecified chronicity (Primary Dx) Social History Tobacco Use Types [...] - Inhaled Oxygen Concentration - - Weight 86.6 kg (191 lb) 01/26/2024 12:57 PM EDT Height 170.2 cm (5' 7) 01/26/2024 12:57 PM EDT Body Mass Index 29.91 01/26/2024 12:57 PM EDT documented in this encounter Progress Notes * Kp Erazo MD - 01/26/2024 1:00 PM EDT I have seen the patient in person and reviewed the resident's above history and I agree with the details as written. The assessment and plan were formulated in discussion with me and I agree with them as documented. Pertinent History: Hx of R knee ACL tear as a teenager ~1993. No surgery. Pain with stairs mostly over the years. No obvious issues with instability./ Pertinent Exam: Crepitus with attempts at Pivot shift, no obvious clunk or acl insufficiency. Melony 2a - 2B Major issues addressed: R knee pain, no obvious instabiltiy, likely acl deficient. Discussed options. Plan for PT. Consider injections. Consider diagnostic arthroscopy vs aCl REcon and lateral condylar OCD procedure such as antegrade or retrograde drilling, microfracture, OATS, delayed arthroplasty * Yair Hearn MD - 01/26/2024 1:00 PM EDT Images from the original note were not included. Orthopedic Surgery Clinic Note Chief Complaint: Chief Complaint Patient presents with Establish Care XR & MRI (IN EDH) R KNEE ACL TEAR AND OSTEOCHONDRAL LESION LATERAL FEMORAL CONDYLE DOI: 30 YEARS AGO SURGICAL DISCUSSION ? RADHA The patient is a 43 y.o. female who presents to see me at the request of Tabatha Carmen, FINISHER ACCORDION [address] [place] [address] for the above chief complaint. HPI: Teri Smith is a 43 y.o. female who presents to clinic today for evaluation of her right knee. She states that she injured the knee when she was 14 y.o. (1993) while playing basketball. She statesthat X-rays were taken at that time, and she was sent to PT, but did not have any further interventions. Since that time, her knee has never been quite right, and she states that she has had difficulty with lateral movements, which stopped her from playing sports after the injury, and ultimately caused her to stop running in her 20's. Over the years, her knee has become more problematic, and it now has reached a point where it is bothering her on a daily basis. She states that going down stairsis particularly bothersome, and she experiences pain deep in the lateral aspect of her knee. She is taking naproxen for other arthritic issues, and this does help address her symptoms to a degree. 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 Past Medical History: Diagnosis Date Anxiety Gastric ulcer Hypertension Hypothyroid Thyroid disease Vaginal yeast infection Past Surgical History: Procedure Laterality Date PRO COLONOSCOPY, DIAGNOSTIC N/A 09/30/2021 COLONOSCOPY, DIAGNOSTIC performed by Guilherme Rock MD at [facility] ENDOSCOPY PRO UPPER GI ENDOSCOPY, BIOPSY N/A 09/30/2021 EGD WITH BIOPSY (WRVU 2.49) performed by Guilherme Rock MD at [facility] ENDOSCOPY UTERINE FIBROID SURGERY WISDOM TOOTH EXTRACTION WISDOM TOOTH EXTRACTION Medications were reviewed with the patient today and are up to date. Family History: Family History Problem Relation Age of Onset Thyroid Disease Mother Aneurysm Mother Brain Diabetes Father type ii Heart Disease Father Rheumatoid Arthritis Maternal Aunt Cancer Maternal Aunt thyroid cancer 2 aunts Thyroid Disease Maternal Aunt Rheumatoid Arthritis Maternal Grandmother Diabetes Maternal Grandmother type II Heart Disease Maternal Grandmother Cancer Paternal Grandfather colon cancer Asthma Neg Hx Social History: Social History Socioeconomic History Marital status: Spouse name: Not on file Number of children: Not on file Years of education: Not on file Highest education level: Not on file Occupational History Not on file Tobacco Use Smoking status: Former Packs/day: 1.00 Years: 18.00 Additional pack years: 0.00 Total pack years: 18.00 Types: Cigarettes Quit date: 03/02/2020 Years since quittin.9 Smokeless tobacco: Never Tobacco comments: vape Vaping Use Vaping Use: Former Start date: 04/04/2021 Quit date: 11/03/2022 Substance and Sexual Activity Alcohol use: Yes Alcohol/week: 3.0 standard drinks of alcohol Types: 3 Glasses of wine per week Comment: twice a month Drug use: No Comment: rarely - for joint pain Sexual activity: Yes Partners: Male Comment: None- not concerned about at this time Other Topics Concern Not on file Social History Narrative Not on file Social Determinants of Health Financial Resource Strain: Not on file Food Insecurity: Not on file Transportation Needs: Not on file Physical Activity: Not on file Intimate Partner Violence: Not on file Housing Stability: Not on file Imaging studies: MRI and XR Right knee. Personal review of imaging demonstrates a distal femur lateral condyle osteochondral defect with associated bony edema, there appears to be disruption of the subchondral bone. Cartilage wear present. ACL with abnormal appearance suggestive of old injury. Physical Exam: Awake/Alert, NAD RLE No overlying skin lesions, no effusion of the knee ROM: 0-130 degrees. Passively able to hyperextend to 10 degrees hyperextension Melony 2A with moderately soft endpoint Pivot shift with crepitus and subtle reduction of the tibia Minimal TTP of lateral joint line, no TTP of medial joint line, negative patellar grind test Motor intact to knee flex/ext, EHL, FHL, TA SILT in sural, fem, saph, DP, SP, tibial distributions DP/PT 2+, foot wwp, brisk cap refill distally Questionnaire Responses: 03/22/2013 General Health, Prior Treatments, PreExisting Condition, Health Habits, About You PROMIS-10 Quality of Life Fair PROMIS-10 Physical Health Fair PROMIS-10 Mental Health Good PROMIS-10 Social Activity Very Good PROMIS-10 Everyday Activities Moderately PROMIS-10 Pain 4 PROMIS-10 Fatigue Severe PROMIS-10 Social Roles Very Good PROMIS-10 Anxious or Depressed Sometimes PROMIS PHYSICAL SCORE (range 16-68) 34.9 PROMIS MENTAL SCORE (range 21-68) 43.5 Live Alone No Combined Household Income $75,000 or more # People Supported 5 No data to display No data to display Medical decision making/Assessment: The patient is a 43 y.o. 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 Plan: We do long conversation regarding the nature of her injury in the past and her ongoing knee pain. Her primary complaint today is knee pain more so than feelings of instability. We discussed that reconstruction of her ACL would be to address feelings of instability and does not have a predictable outcome regarding the pain symptoms she has been experiencing. Her pain is likely secondary to the OCDpresent, and we discussed possibility of retrograde drilling of this lesion in conjunction with a diagnostic knee arthroscopy. At this point in time, she would like to avoid surgery if at all possible. She has not formally gone to physical therapy since she was a child. We did discuss and recommendthat she go to physical therapy for her knee at this time. We also discussed possibility of performing injections into the knee beginning with a corticosteroid injection. We discussed that given her old ACL injury, her knee has been experiencing abnormal biomechanics, and we would recommend low impact exercises for activity such as swimming, cycling, and avoiding activities like running. She may follow-up in an as-needed basis moving forward should her knee symptoms worsen, or if she would liketo pursue a corticosteroid injection in the knee. Patient was agreement with this plan all questions were answered. - PT referral for Right knee -Patient to consider corticosteroid injections in the future - Consider diagnostic arthroscopy and potential retrograde drilling of OCD lesion Patient was seen in conjunction with Dr. Erazo. Gregory Haern MD Orthopaedic Surgery - PGY3 Pager: [phone] documented in this encounter Plan of Treatment Upcoming Encounters Date Type Department Care Team (Late st Contact Info) Description 08/17/2024 12:00 PM EDT Office [place] [address] Britt Zurita MD [facility] [address] Scheduled Referrals Name Type Priority Associated Diagnoses Orde r Schedule Referral to Physical Therapy Outpatient Referral Routine Right knee pain, unspecified chronicity Ordered: 01/26/2024 documented as of this encounter Visit Diagnoses Diagnosis Right knee pain, unspecified chronicity- Primary documented in this encounter Care Teams Marine Pipefitter Relationship Specialty Start Date End Date Anuja Cai APRN [address] [place] [address] PCP - General Internal Medicine 07/25/21 documented as of this encounter
--- OUTSIDE RECORDS SUMMARY | 2024-06-10 18:49 | XMS_ITS | Encounter Summary ---
Author Organization Counts Include [facility] Address [facility] [place] [address] Care Team Providers Care Accounts Payable Coordinator Name Role Phone TrellAnuja APRN Primary Care Provider [phone] Encounter Details Date Type Department Care Team (Latest Contact Info) Description 02/16/2024 11:32 AM EDT - 02/16/2024 11:59 PM EDT Hospital Encounter XRay at [address] [place] [address] Britt Zurita MD [facility] [place] [address] Polyarthralgia Discharge Disposition: Home Social History Tobacco Use [...] 02/16/24 07/29/2021 fluticasone propionate (Flonase) 50 mcg/actuation [place], Suspension SPRAY ONE SPRAY IN EACH NOSTRIL [...] 12:00 PM EDT Office Visit [place] [address] Britt Zurita MD [facility] [place] [address] documented as of this encounter Procedures Procedure Name Priority Date/Time Associated Diagnosis Comments XR CHEST PA AND LATERAL Routine 02/16/2024 11:39 AM EDT Polyarthralgia documented in this encounter Results * (ABNORMAL) XR Chest [...] who have questions please contact the health vision care associate that requested your imaging first. ? Electronically signed by: Rebecca Escalera MD, [facility] ([phone]), at 02/16/2024 3:49 PM Narrative 02/16/2024 3:49 PM EDT EXAMINATION: XR [...] sites documented in this encounter Care Teams Accounts Payable Coordinator Relationship Specialty Start Date End Date Anuja Cai, STEM TEACHER [address] [place] [address] PCP - General Internal Medicine 07/25/21 documented as of this encounter
--- OUTSIDE RECORDS SUMMARY | 2024-06-10 18:49 | XMS_ITS | Encounter Summary ---
Author Organization [facility] Address [address] [place] [address] Care Team Providers Care Combat Engineer Name Role Phone Unavailable Primary Care Provider Unavailabl e Encounter Details Date Type Department Care Team (Latest Contact Info) Description 02/11/2006 13:[address] [facility] - [facility] [address] [place] [address] Stephany Payne MD [address] [place] [phone] Robin Pena MD [address] [place] [phone] Discharge Disposition: Auto Discharge Social History Tobacco [...] [facility] Rheumatology & Immunology - [address] [address] Micaela Hoff MD [address] [facility], [facility] [address] [place] [phone] documented as of this encounter Procedures Procedure Name Priority Date/Time Associated Diagnosis Comments HEPATITIS C AB W REFLEX TO HCV RNA BY PCR Routine 02/11/2006 15:21 EDT N. GONORRHOEAE AMPLIFIED PROBE Routine 02/11/2006 15:21 EDT ZZCHLAMYDIA TRACHOMATIS AMPLIFIED PROBE Routine 02/11/2006 15:21 EDT SYPHILIS SERO (RPR) Routine 02/11/2006 1 5:21 EDT HIV 1/2 ANTIGEN AND ANTIBODY, 4TH GENERATION Routine 02/11/2006 15:21 EDT documented in this encounter Results * SYPHILIS SERO (RPR) (02/11/2006 15:21 EDT) Syphilis Sero (RPR) NONREACT. NR Dils [facility] 02/11/2006 15:2 1 EDT 02/11/2006 20:14 EDT Robin Pena MD IMMUNOLOGY AN D SEROLOGY ORDERABLES Performing Organization Address [facility] de Phone Number [facility] [address] [place] [address] * HIV ANTIBODY (YONATHAN) (02/11/2006 15:21 EDT) HIV 1/2 Antibody NONREACT. NR [facility] 02/11/2006 15:2 1 EDT 02/11/2006 20:14 EDT Robin Pena MD IMMUNOLOGY AN D SEROLOGY ORDERABLES Performing Organization Address [facility] de Phone Number [facility] [address] [place] [address] * HEPATITIS C ANTIBODY (02/11/2006 15:21 EDT) Hepatitis C Ab Neg [facility] 02/11/2006 15:2 1 EDT 02/11/2006 20:14 EDT Robin Pena MD CHEMISTRY & B LOOD GAS ORDERABLES Performing Organization Address [facility] Co de Phone Number [facility] [address] [place] [address] * N. GONORRHOEAE AMPLIFIED PROBE (02/11/2006 15:21 EDT) Result No Neisseria gonorrhoeae DNA detected by head of transport logistics mediated amplification. [facility] Report Status Final [id number] [facility] Specimen Description Cervix [facility] 02/11/2006 15:2 1 EDT 02/12/2006 7:00 EDT Robin Pena MD MICROBIOLOGY - GENERAL ORDERABLES Performing Organization Address [facility] de Phone Number [facility] [address] [place] [address] * CHLAMYDIA TRACHOMATIS AMPLIFIED PROBE (02/11/2006 15:21 EDT) Specimen Description Cervix [facility] Result No Chlamydia trachomatis DNA detected by head of transport logistics mediated amplification. [facility] Report Status Final [id number] [facility] 02/11/2006 15:2 1 EDT 02/12/2006 7:00 EDT Robin Pena MD MICROBIOLOGY - GENERAL ORDERABLES Performing Organization Address [facility] Co de Phone Number [facility] [address] [place] [address] documented in this encounter Visit Diagnoses Not on filedocumented in this encounter
--- OUTSIDE RECORDS SUMMARY | 2024-06-10 18:49 | XMS_ITS | Encounter Summary ---
Author Organization [facility] Address [address] [place] [address] Care Team Providers Care Generating Station Mechanic Name Role Phone Unavailable Primary Care Provider Unavailabl e Encounter Details Date Type Department Care Team (Latest Contact Info) Description 02/18/2006 14:59 EDT Hospital Encounter [facility] - [facility] [address] [place] [address] Marcelle Harrison MD [address] [place] [address] Discharge Disposition: Auto Discharge Social History Tobacco [...] [facility] Rheumatology & Immunology - [facility] [address] [place], [place] [address] Micaela Hoff MD [address] [facility], [address] [place] [phone] documented as of this encounter Visit Diagnoses Not on filedocumented in this encounter
--- OUTSIDE RECORDS SUMMARY | 2024-06-10 18:49 | XMS_ITS | Encounter Summary ---
Author Organization [facility] [place] [address] [place] [address] Care Team Providers Care Weigher And Charger Name Role Phone Anuja Cai HUANG Primary Care Provider + [phone] Encounter Details Date Type Department Care Team (Late st Contact Info) Description 02/05/2024 Ancillary Procedure [place] [phone] Alphonso Vasques MD [facility] [place] [address] Social History Tobacco Use Types Packs/Day Years [...] 12:00 PM EDT Office [place] [address] Britt Zurita MD [facility] RHEUMATOLOGY [place], [place] [phone] documented as of this encounter Procedures Procedure Name Priority Date/Time Associated Diagnosis Comments FILM LIBRARY STORAGE ONLY DX WRIST Routine 02/05/2024 12:00 AM EDT documented in this encounter Results * Film Library- Storage Only DX Wrist (02/05/2024 12:00 AM EDT) Narrative DAHLIA - 02/11/2024 4:59 PM EDT This exam is auto-finalizing. It's purpose is for storage only. Alphonso Vasques MD IMG FILM LIBRARY ORD ERABLES Performing Organization Address City/State/[facility] Co de Phone Number [place], [place] documented in this encounter Visit Diagnoses Not on filedocumented in this encounter Care Teams Weigher And Charger Relationship Specialty Start Date End Date Anuja Cai APRN [address] [facility] [place] [address] PCP - General Internal Medicine 07/25/21 documented as of this encounter
--- OUTSIDE RECORDS SUMMARY | 2024-06-10 18:49 | XMS_ITS | Encounter Summary ---
Author Organization [facility] Address [address] [place] [address] Care Team Providers Care Grinder Set Up Operator Internal Name Role Phone Unavailable Primary Care Provider Unavailabl e Encounter Details Date Type Department Care Team (Latest Contact Info) Description 02/24/2002 12:05 EDT Hospital Encounter [facility] - Other [address] [place] [address] Ashley Cerrato FNP [address] [place] [id number] Unknown, Provider, Discharge Disposition: Auto Discharge Social [...] Info) Description 12/29/2024 10:20 EST Office Visit [facility] Rheumatology & Immunology - [facility] [address] [place] [address] Micaela Hoff MD [address] [facility], [address] [place] [phone] documented as of this encounter Procedures Procedure Name Priority Date/Time Associated Diagnosis Comments HPV DETECTION, HIGH RISK TYPES Routine 02/24/2002 10:26 EDT CYTOPATHOLOGY Routine 02/24/2002 0:00 EDT documented in this encounter Results * HUMAN PAPILLOMA VIRUS DNA TEST (02/24/2002 10:26 EDT) Specimen Description Cervix, ThinPrep vial [facility] Result Positive for one or more of HPV types 16,18,31,33,35 ,39,45,51,52,5 6,58,59, or 68. These high/intermedi ate risk HPV types are associated with dysplasia and some cervical cancers. [facility] Report Status Final [id number] [facility] 02/24/2002 10:2 6 EDT 03/07/2002 10:26 EDT Ashley DOVE MICROBIOLOGY - GENER AL ORDERABLES Performing Organization Address City/State/[facility] Co de Phone Number [facility] [address] [place] [address] * CYTOPATHOLOGY (02/24/2002 0:00 EDT) Pathology Report: CYTOPATHOLOGY REPORT Reports generated via electronic interface contain original data; however they are lacking the format of the original report. Caution should be taken when reading/interpreti ng unformatted reports. Name: ? JAYA TERI Sayda ? Accession #: ? [id number] : ? 1980 (Age: 21) ??F ?Collect Date: ? 02/24/2002 Location: ? [facility] ? Receive Date: ? 02/28/2002 Provider: ?ASHLEY NELLY PURCHASING ANALYST Copy to: ? [facility] ? [place] [facility] ? [address] ? [place] [address] ? Specimen/Source: ?ThinPrep Pap Test, Cervix Last Menstrual Period: ? 01/31/02 Other: ? HPVL - HPV testing requested if LSIL/ASCUS/CRICKET on the current ThinPrep Pap test. ? SPECIMEN ADEQUACY ? Satisfactory for Evaluation - transformation zone component present GENERAL CATEGORIZATION ? Epithelial Cell Abnormality INTERPRETATION ? Squamous Cell Abnormality - Atypical squamous cells, undetermined significance. EDUCATIONAL NOTES/RECOMMENDATI ONS ? Recommend clinical correlation and further evaluation, as clinically indicated. ? Document reviewed and electronically signed by: ? RONNY VASQUEZ MD ? Report Date: ??03/04/2002 15:21 End of Report [facility] 02/24/2002 02/28/2002 Ashley Cerrato PURCHASING ANALYST PATHOLOGY ORDERABLES Performing Organization Address City/State/[facility] Co de Phone Number [facility] [address] [place] [address] documented in this encounter Visit Diagnoses Not on filedocumented in this encounter
--- OUTSIDE RECORDS SUMMARY | 2024-06-10 18:49 | XMS_ITS | Encounter Summary ---
[place] [address] Care Team Providers Care Skidder Operator Name Role Phone Trell Anuja Barbara ENCINAS Primary Care Provider + [phone] Reason for Referral * Diagnostic Test (Routine) - Closed Specialty Diagnoses / Procedures Referred By Contac t Referred To Contact Radiology Diagnoses Opacity of lung on imaging study Procedures CT Chest wo Contrast (Generic) Britt Zurita MD [facility] [place] [address] [facility] [place] [address] Referral ID Status Reason Start Date Expiration Date V isits Requested Visits Authorized [id number] Closed Specialty Service Requested 02/17/2024 08/18/2025 1 1 Encounter Details Date Type Department Care Team (Late st Contact Info) Description 02/17/2024 Orders [place] [address] Britt Zurita MD [facility] [place] [address] Opacity of lung on imaging study Social History Tobacco Use Types Packs/Day Years [...] 12:00 PM EDT [place] [address] Britt Zurita MD [facility] [place] [address] documented as of this encounter Results * CT Chest wo Contrast (Generic) (02/19/2024 10:43 AM EDT) [employer] WORKSTATION ID [id number] RAD Anatomical Region Laterality Modality Chest Computed [...] who have questions please contact the health care management assistant that requested your imaging first. ? Narrative 02/21/2024 6:30 AM EDT EXAMINATION: CT [...] patients who have questions please contactthe health care management assistant that requested your imaging first. Electronically signed by: Rebecca Escalera MD, [facility] ([phone]), at 02/21/2024 6:30 AM Britt Zurita MD IMG CT ORDERABLES documented in this encounter Visit Diagnoses Diagnosis Opacity of lung on imaging study Opacity of lung on imaging study documented in this encounter Care Teams Skidder Operator Relationship Specialty Start Date End Date Anuja Cai, BELT AND LINK ASSEMBLY SUPERVISOR [address] [place] [address] PCP - General Internal Medicine 07/25/21 documented as of this encounter
--- OUTSIDE RECORDS SUMMARY | 2024-06-10 18:49 | XMS_ITS | Encounter Summary ---
Author Organization [facility] Address [address] [place] [address] Care Team Providers Care Credit Administration Specialist Name Role Phone Unavailable Primary Care Provider Unavailabl e Encounter Details Date Type Department Care Team (Late st Contact Info) Description 08/09/2003 8:46 EDT Hospital Encounter [facility] - Other [address] [place] [id number] Newton Evans, [address] [place] [address] Social History Tobacco Use Types Packs/Day Years [...] 12/29/2024 10:20 EST Office Visit [facility] Rheumatology & Immunology - [facility] [address], [place] [id number] Micaela Hoff MD [address] [facility], [address] [place] [id number] documented as of this encounter Procedures Procedure Name Priority Date/Time Associated Diagnosis Comments CYTOPATHOLOGY Routine 08/09/2003 0:00 EDT documented in this encounter Results * CYTOPATHOLOGY (08/09/2003 0:00 EDT) Pathology Report: CYTOPATHOLOGY REPORT Reports generated via electronic interface contain original data; however they are lacking the format of the original report. Caution should be taken when reading/interpreti ng unformatted reports. Name: ? TERI CROWE ? Accession #: ? [id number] : ? 1980 (Age: 23) ??F ?Collect Date: ? 08/09/2003 Location: ? [facility] ? Receive Date: ? 08/14/2003 Provider: ?NEWTON EVANS CN Copy to: ? Specimen/Source: ?ThinPrep Pap Test, Cervix Last Menstrual Period: ? Menstrual/Pregnanc y Status: ? Post Other: ? HPVA - HPV testing requested if ASC-US on the current ThinPrep Pap test. ? SPECIMEN ADEQUACY ? Satisfactory for Evaluation - transformation zone component present GENERAL CATEGORIZATION ? Negative for Intraepithelial Lesion or Malignancy ? Document reviewed and electronically signed by: ? GARY Felder(ASCP) ? 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
--- OUTSIDE RECORDS SUMMARY | 2024-06-10 18:49 | XMS_ITS | Clinical Summary ---
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 Will take 125 mcg after today 02/16/24 07/29/2021 Active fluticasone propionate (Flonase) 50 mcg/actuation [place], Suspension SPRAY ONE SPRAY IN EACH NOSTRIL TWICE A DAY 08/07/2021 Active fluconazole (Diflucan) 150 mg Tablet Take 150 mg by mouth as needed. 07/25/2021 Active lisinopriL (Zestril) 10 mg Tablet Take 10 mg by mouth daily. 05/13/2022 Active acetaminophen (Tylenol) 325 mg tablet Take 650 mg by mouth every 6 hours as needed. 07/20/2014 Active cetirizine (ZyrTEC) 10 mg chewable tablet Take 10 mg by mouth daily. Active cholecalciferol, vitamin D3, (VITAMIN D3 ORAL) Take 50,000 Units by mouth once a week. 11/28/2022 Active famotidine (Pepcid) 20 mg tablet Take 20 mg by mouth daily as needed. 09/21/2023 Active valACYclovir (Valtrex) 500 mg tablet Take 500 mg by mouth daily. 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 Then were normal. Most recent Pap was normal, but positive for HPV, recommended screening q 6 months. History of stillbirth 03/22/2013 Overview (03/22/2013): - after was found that she had septum in uterus, that was removed per patient; She had another child that was to term. Encounters Date Type Department Care Team Description 04/18/2024 [place] [phone] Britt Zurita MD Polyarthralgia from Last 3 Months Family History Medical History Relation Comments Diabetes Father type ii Heart Disease Father Cancer Maternal Aunt thyroid cancer 2 aunts Rheumatoid Arthritis Maternal Aunt Thyroid Disease Maternal Aunt Diabetes Maternal Grandmother type II Heart Disease Maternal Grandmother Rheumatoid Arthritis Maternal Grandmother Aneurysm Mother Brain Thyroid Disease Mother Cancer Paternal Grandfather colon cance r Asthma Neg Hx Relation Status Comments Brother Alive Father Alive Maternal Aunt Alive Maternal Grandmother Mother Alive Paternal Grandfather Sister Alive Social History Tobacco Use Types Packs/Day Years [...] Orientation Straight 08/14/2021 10 :55 AM EDT Last Filed Vital Signs Vital Sign Reading [...] 6.4 oz) 02/16/2024 10:41 AM EDT Height 170.2 cm (5' 7) 01/26/2024 12:57 PM EDT Body Mass Index 30.45 01/26/2024 12:57 PM EDT Plan of Treatment Upcoming Encounters Date Type Department Care Team (Late st Contact Info) Description 08/17/2024 12:00 PM EDT Office [place] [address] Britt Zurita MD [facility] [place] [address] Health Maintenance Due Date Last Done Comments Hepatitis C Screening 1999 Lipid Screening 1999 Hepatitis B vaccine (0-59 yr s) (1) 2000 Tdap adult 2000 Tetanus vaccine 2000 HPV test 04/14/2018 04/14/2013 PAP Smear 04/14/2018 04/14/2013 Breast Cancer Share Decision Needed 2021 Breast Cancer screening 2021 Covid-19 Vaccine (1 - 2022-2 4 season) 2023 Influenza (Flu) vaccine (1 o f 1 - Influenza standard series) 07/03/2024 Diabetes Screening (HgbA1C o r Glucose) 04/02/2026 04/02/2023, 08/23/2021, 02/22/2014, Additional history exists HIV screen Completed 04/27/2013 Procedures Procedure Name Priority Date/Time Associated Diagnosis Comments COMPREHENSIVE METABOLIC PANEL Routine 04/02/2023 11:00 AM EDT Polyarthralgia HIV SCREEN, 4TH GENERATION ([facility]) Routine 04/27/2013 2:31 PM EDT Fatigue Night sweats [facility] MOLECULAR GENETICS REPORT Routine 04/14/2013 3:59 PM EDT [facility] CYTOLOGY FINAL REPORT Routine 04/14/2013 3:59 PM EDT from Last 3 Months or Most Recently Relevant to Health Maintenance Results * Comprehensive metabolic panel (non-fasting) (04/02/2023 11:00 AM EDT) Glucose 95 65 - 199 mg/dL [facility] Comment:Diabetes: >=200 mg/d L plus symptoms Blood Urea Nitrogen 12 8 - 18 mg/dL [facility] Creatinine 0.93 0.70 - 1.20 mg/dL [facility] Sodium 138 135 - 145 mmol/L [facility] Potassium 3.8 3.5 - 5.0 mmol/L [facility] Comment: Please note: ??Patients with WBC >100,000 may have falsely elevated Potassium levels. ??For accurate Potassium quantification in these patients send serum separator tube (gold top) for subsequent determinations. ??Contact the Clinical Chemistry Laboratory if there are any questions. Chloride 101 98 - 107 mmol/L [facility] Carbon Dioxide 27 22 - 31 mmol/L [facility] Anion Gap 10 5 - 15 mmol/L [facility] Calcium 9.6 8.5 - 10.5 mg/dL [facility] Protein, Total 7.5 6.1 - 8.0 g/dL [facility] Albumin 4.7 3.2 - 5.2 g/dL [facility] Aspartate Aminotransferase 19 0 - 30 unit/L [facility] Alanine Aminotransferase 16 0 - 30 unit/L [facility] Alkaline Phosphatase 57 35 - 105 unit/L [facility] Bilirubin, Total 0.4 0.2 - 1.3 mg/dL [facility] Est Glomerular Filtration Rate 79 >=60 mL/min/1. 73 m?? [facility] Comment: This patient's estimated GFR was calculated using the 2020 CKD-EPI equation. The estimated GFR can vary from the measured GFR by up to 30% in the absence of rapidly changing kidney function. Assessment of the estimated GFR is not appropriate when creatinine concentrations are rapidly changing. For clinical situations in which a more precise estimate of GFR is necessary, consider alternative methods of GFR estimation such as a 24-hour urine creatinine clearance. Assignment of CKD stage 1-5 for patients with an eGFR near the transition point between stages may be based on clinical assessment of muscle mass and symptoms in addition to eGFR. Blood 04/02/2023 11:0 0 AM EDT 04/02/2023 11:06 AM EDT Narrative Resulting Agency Comment Spec In Lab Britt Zurita MD CHEMISTRY ORDERABLE S Performing Organization Address [facility] [place] [address] * HIV (04/27/2013 2:31 PM EDT) [facility] HIV 1/2 Ab Negative [facility] Blood specimen (specimen) 04/27/2013 2:31 PM EDT 04/27/2013 2:38 PM EDT Narrative Resulting Agency Comment Spec In Lab Anila Serna MD CHEMISTRY ORDERABLE S Performing Organization Address [facility] Co de Phone Number [facility] * [facility] Molecular Genetics Report (04/14/2013 3:59 PM EDT) [facility] Molecular Genetics Report ? [facility] ? Provider: ?? LIYA SILVA Pt. Name: ?? TERI CROWE ? Acc #: ?[id number] ?Pt. ? Col Date: ?? 04/14/2013 ? /Sex: ?1980,(33 years),Female ? Rec Date: ?? 04/14/2013 ? LOC: ?HPN ? MOLECULAR GENETIC STUDIES ? ---REPORT OF DNA ANALYSIS--- ? Dominique Gerry HPV test ? POSITIVE for high-risk HPV* (High risk type other than types 16 or 18): ? It is recommended that patients with ASCUS cytology and a positive test for ? high-risk HPV undergo further evaluation according to current practice ? guidelines. ??* Testing positive for high risk HPV means that the specimen ? is positive for at least one of the following 14 types tested: ??types 16, ? 18, 31, 33, 35, 39, 45, 51, 52, 56, 58, 59, 66, and 68. ? Specimen: HPV Testing - Cytology Liquid Based Prep ? Reviewed by: ??Willian Marroquin, [facility] ? A ?VCELD Vag/Cerv/Endo/L BP/Diagnostic ? B ?HPVDO Do HPV Testing ? Verified date: ??04/21/13 ??[facility] ? Verified by: ?Lab Review, Molecular Genetics ? 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 [facility] ? Provider: ?? LIYA SILVA Pt. Name: ?? TERI CROWE ? Acc #: ?[id number] ?Pt. ? Col Date: ?? 04/14/2013 ? /Sex: ?1980,(33 years),Female ? Rec Date: ?? 04/14/2013 ? LOC: ?HPN ? CYTOPATHOLOGY: ??[facility] ? ---Adequacy--- ? Specimen submitted is satisfactory for evaluation. ??No endocervical ? component present . ? Note: ??Initial cross-sectional studies suggested that DOMINICK cells were more ? commonly identified when an endocervical component was present, however ? subsequent longitudinal studies fail to show that women lacking an ? endocervical component in a Pap smear are at increased risk for DOMINICK. ? ---Cytopathologic Diagnosis--- ? Epithelial Cell Abnormality ? Low Grade Squamous Intraepithelial Lesion (LSIL). ? (encompassing: ??Human Papilloma virus, mild dysplasia and cervical ? intraepithelial neoplasia (CIN1).) ? For consensus guidelines for the management of women with abnormal cervical ? cancer screening tests, please see: ? http://www.asccp.o rg/consensus/cytol ogical.shtml ? These guidelines were published in the [place] Journal of Obstetrics and ? Gynecology (2007;197(4):346-3 55). ? 04/21/13 ?? Screened by: ??SLA ??TEST DRIVER ? 04/22/13 ?? Verified by: ??BELKYS OCONNELL MD - Pathologist ? ---Comment--- ? Please also see concurrent HPV test result. ? ---Clinical Information--- ? HPV Option: ? Concurrent HPV ? Preparation: ?Liquid Based Pap ? Specimen Source: ?Vag/Cerv/Endo/LB P/Diagnostic ? LMP: ?04/03/13 ? Hormones?: ?No ? Hysterectomy?: ?No ?: ?No ?: ?No ? I.U.D.?: ?No ? Pelvic Radiation: ? No ? Prior [facility] Therapy?: ? Other (comment) ? Hist Abnl Pap/Biopsy?: ??Yes, history of previous abnormal Pap ? Hist of HPV Vaccine?: ?? No ? Hist of Smoking?: ? Yes ? [facility] ? Provider: ?? LIYA SILVA Pt. Name: ?? TERI CROWE ? Acc #: ?[id number] ?Pt. ? Col Date: ?? 04/14/2013 ? /Sex: ?1980,(33 years),Female ? Rec Date: ?? 04/14/2013 ? LOC: ?HPN ? CYTOPATHOLOGY: ??[facility] ? Hist of MAR exposure?: ??No ? Clinical Data, Significant Therapy and Clinical Impression: ? This Pap Test has been evaluated with the assistance of the ThinPrep Pap ? Test Imaging System. ? Note: ? The Pap test is a screening test for cervical cancer with an inherent ? false-negative rate dependent upon several variables. ??For further ? information please contact the [facility]. ? Reference: ??Julianne SINGH. ??Diesel Mechanic Helper of Pap Smear Results. ??In: ? Suri BS, Silvestre HH, ed. ??The Pap Smear. ??[place]: ??Willian, 2002: ? 71-77. 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
--- OUTSIDE RECORDS SUMMARY | 2024-06-10 18:50 | XMS_ITS | Encounter Summary ---
Author Organization [facility] William [facility], [place] [address] Care Team Providers Care Home Health Clinical Supervisor Name Role Phone Unavailable Primary Care Provider Unavailabl e Reason for Visit * Reason Comments Follow-up Encounter Details Date Type Department Care Team ([facility] st Contact Info) Description 04/27/2013 9:45 AM EDT Follow-Up Internal Medicine at [facility] [address] [place] [id number] Liya Richardson APRN [facility] [place] [address] Fatigue (Primary Dx); Night sweats Discharge Disposition: Home Social History Tobacco Use Types Packs/Day Years Used Date Smoking Tobacco: Every Day Cigarettes 1 18 Smokeless Tobacco: Never Comments:soon not just yet Alcohol Use Standard Drinks/Week Comments Yes 6 (1 standard drink = 0.6 oz pure alcohol) twice per week has about 3 at a time Sex and Gender Information Value Date Recorded Sex Assigned at Female 08/14/2021 10:55 AM EDT Gender Identity Female 08/14/2021 10:55 AM EDT Sexual Orientation Straight 08/14/2021 10 :55 AM EDT documented as of this encounter Last Filed Vital Signs Vital Sign Reading Time Taken Comments Blood Pressure 133/84 04/27/2013 9:45 AM EDT Pulse 58 04/27/2013 9:45 AM EDT Temperature 36.7 ??C (98 ??F) 04/27/2013 9:45 AM EDT Respiratory Rate 18 04/27/2013 9:45 AM EDT Oxygen Saturation 100% 04/27/2013 9:45 AM EDT Inhaled Oxygen Concentration - - Weight 71 kg (156 lb 9.6 oz) 04/27/2013 9:45 AM EDT Height - - Body Mass Index 26.06 04/14/2013 11:22 AM EDT documented in this encounter Progress Notes * Liya Richardson APRN - 04/27/2013 10:08 AM EDT PCP: LIYA RICHARDSON APRN Chief Complaint Patient presents with ??? Follow-up SUBJECTIVE: Teri Haro is a 33 y.o. female who presents with extreme fatigue where it is struggle to get out of bed. Severe intermittently night sweats for the last 2- 2.5 years, and recurrent infections for last 6 months. She reports feeling as though sick for 6 months. She states that the ear discomfort is the least of her problems. She states that she has had the fatigue, and night sweats evaluated in the past, but no abnormal findings were found on the lab work. She reports losing unintentional 100 lbs 2.5 years ago. She reports that she eats a lot and has not really gained weight. She is concerned that there is something really wrong. ROS: GEN: Denies fevers, chills, REPORTS- lightheadedness or dizziness intermittently, describes hot flashes HEENT: Denies sinus tenderness, changes in vision or hearing CARDIO: Denies palpitations; intermittent left side chest pressure, pin point pinching. No diaphoresis. It is not effected by touch. She reports feeling fatigued at that time. No history of cardiacdisease. RESP: Reports shortness of breath, ALBERTO, cough with recent URI symptoms GI: Denies abdominal pain, nausea, vomiting; Reports alternating diarrhea and constipation NEURO: Reports occasional headaches (thinks may be because she does not wear glasses) No Known Allergies Current Outpatient Prescriptions Medication Sig Dispense Refill ??? levothyroxine (SYNTHROID) 88 mcg tablet Take 1 tablet by mouth daily. 90 tablet 3 ??? omeprazole (PRILOSEC) 40 mg capsule Take 1 capsule by mouth daily. 30 capsule 11 Patient Active Problem List Diagnoses Code ??? Peptic ulcer disease 533.90 ??? Hiatal hernia 553.3 ??? GERD (gastroesophageal reflux disease) 530.81 ??? Abnormal Pap smear of cervix 795.00 ??? History of stillbirth V23.5 ??? Hx of Mena thyroiditis V12.29 ??? Abnormal Pap smear 796.9 ??? HPV in female 079.4 OBJECTIVE: Filed Vitals: 04/27/13 0945 BP: 133/84 Pulse: 58 Temp: 36.7 ??C (98 ??F) TempSrc: Oral Resp: 18 Weight: 71.033 kg (156 lb 9.6 oz) SpO2: 100% PHYSICAL EXAM: GENERAL APPEARANCE: alert, oriented, in no acute distress HEENT: TMs clear, light reflexes dull bilaterally, without erythema. No sinus tenderness. Nasal mucosa pink & moist. Pharynx without erythema, exudate, or enlarged tonsils. NECK: supple, no lymphadenopathy. CARDIO: RRR, no murmurs. LUNGS: CTA, no rales, rhoncii, or wheezes. ASSESSMENT & PLAN: Teri was seen today for follow-up . Diagnoses and associated orders for this visit: Etiology of fatigue and night sweats are unclear. They are not new, will review records from old facility. She has been seen by cardiology previously for chest discomfort. It sounds more related to anxiety than cardiac in nature. Will do lab work to check cbc, cmp, tsh, LDH, and for HIV and Lyme disease. Will await results before further evaluation. Fatigue - CBC (with Diff); Future - CMP w/fasting Glucose; Future - TSH; Future - Lyme IgG & IgM Antibody; Future - Lactate Dehydrogenase; Future - HIV; Future Night sweats - CBC (with Diff); Future - CMP w/fasting Glucose; Future - TSH; Future - Lyme IgG & IgM Antibody; Future - Lactate Dehydrogenase; Future - HIV; Future documented in this encounter Miscellaneous Notes * Addendum Note - Mason Whittaekr - 04/27/2013 2:26 PM EDTAddended by: MASON WHITTAKER on: 04/27/2013 02:26 PM Modules accepted: Orders documented in this encounter Plan of Treatment Upcoming Encounters Date Type Department Care Team (Late st Contact Info) Description 08/17/2024 12:00 PM EDT Office Visit Rheumatology at [facility] [place] [phone] Britt Zurita MD [facility] [place] [address] documented as of this encounter Procedures Procedure Name Priority Date/Time Associated Diagnosis Comments LYME IGG & IGM ANTIBODY Routine 04/27/2013 2:31 PM EDT Fatigue Night sweats CMP W/FASTING GLUCOSE Routine 04/27/2013 2:31 PM EDT Fatigue Night sweats DIFFERENTIAL, AUTOMATED Routine 04/27/2013 2:31 PM EDT HIV SCREEN, 4TH GENERATION ([facility]/CGP/APD/NLH) Routine 04/27/2013 2:31 PM EDT Fatigue Night sweats CBC (WITH DIFF) Routine 04/27/2013 2:31 PM EDT Fatigue Night sweats TSH Routine 04/27/2013 2:31 PM EDT Fatigue Night sweats LACTATE DEHYDROGENASE Routine 04/27/2013 2:31 PM EDT Fatigue Night sweats documented in this encounter Results * Differential, Automated (04/27/2013 2:31 PM EDT) Neutrophil % 57.0 34.0 - 71.0 % C[facility] MILLENNIUM Neutrophil Absolute 4.13 1.50 - 6.30 x10(3)/mcL [facility] MILLENNIUM Lymph % 35.8 19.0 - 53.0 % CERNER MILLENNIUM Lymphocytes Abs 2.6 1.0 - 3.6 x10(3)/mcL CERN[facility] MILLENNIUM Monocyte % 5.6 4.0 - 13.0 % CERNER MILLENNIUM Monocyte Abs 0.4 0.2 - 1.0 x10(3)/mcL CERN[facility] MILLENNIUM Eos % 1.1 0.0 - 7.0 % CERNER MILLENNIUM Eosinophils Abs 0.1 0.0 - 0.5 x10(3)/mcL [facility] MILLENNIUM Basophil % 0.4 0.0 - 2.0 % CERNER MILLENNIUM Baso Absolute 0.0 0.0 - 0.2 x10(3)/mcL [facility] MILLENNIUM Immature Gran % 0.10 0.00 - 0.66 % CERNER MILLENNIUM Comment: Immature granulocytes(IG's)percentage and absolute count will include metamyelocytes, myelocytes, and promyelocytes. Blood smears from CBCs yielding IG's will be scanned manually for concordance. If this scan disagrees with the automated IG or if promyelocytes are noted, a manual differential will be performed. Immature Gran Absolute 0.01 0.00 - 0.05 x10(3)/mcL [facility] MILL[facility]NIUM Blood specimen (specimen) 04/27/2013 2:31 PM EDT 04/27/2013 2:38 PM EDT Anila Serna MD HEMATOLOGY ORDERABL ES Performing Organization Address [facility] de Phone Number [facility] * HIV (04/27/2013 2:31 PM EDT) HIV 1/2 Ab Negative [facility] Blood specimen (specimen) 04/27/2013 2:31 PM EDT 04/27/2013 2:38 PM EDT Narrative Resulting Agency Comment Spec In Lab Anila Serna MD CHEMISTRY ORDERABLE S Performing Organization Address [facility] de Phone Number [facility] * Lactate Dehydrogenase (04/27/2013 2:31 PM EDT) Lactate Dehydrogenase 130 110 - 220 unit/L [facility] Blood specimen (specimen) 04/27/2013 2:31 PM EDT 04/27/2013 2:38 PM EDT Narrative Resulting Agency Comment Spec In Lab Anila Serna MD CHEMISTRY ORDERABLE S Performing Organization Address [facility] de Phone Number C[facility]ER MILLENNIUM * Lyme IgG & IgM Antibody (04/27/2013 2:31 PM EDT) Lyme Antibody Neg Neg [facility] Blood specimen (specimen) 04/27/2013 2:31 PM EDT 04/28/2013 7:47 AM EDT Narrative Resulting Agency Comment Spec In Lab Anila Serna MD IMMUNOLOGY ORDERABL ES Performing Organization Address [facility] de Phone Number [facility] * TSH (04/27/2013 2:31 PM EDT) Thyroid Stimulating Hormone 1.02 0.27 - 4.20 mcIU/mL [facility] Blood specimen (specimen) 04/27/2013 2:31 PM EDT 04/27/2013 2:38 PM EDT Narrative Resulting Agency Comment Spec In Lab Anila Serna MD CHEMISTRY ORDERABLE S Performing Organization Address [facility] Phone Number [facility] * CMP w/fasting Glucose (04/27/2013 2:31 PM EDT) Glucose Fasting 95 65 - 99 mg/dL [facility] Comment: ?Fasting* Glucose Interpretive Criteria Normal ?65-99 mg/dL Impaired Fasting glucose ?100-125 mg/dL Consistent with Diabetes Mellitus ? >or= 126 mg/dL *Fasting is defined as no caloric intake for at least 8 hours In the absence of unequivocal hyperglycemia a plasma glucose value of >or= 126 mg/dL should be repeated on a subsequent day. Diagnosis and Classification of Diabetes Mellitus, Position Statement from the [place] [employer]. ??Diabetes Care, Volume 33, Supplement 1, Nov 2009 Blood Urea Nitrogen 10 8 - 18 mg/dL [facility] Creatinine 0.75 0.70 - 1.20 mg/dL CERN[facility] MILLENNIUM Comment: Please note that the pediatric reference intervals supplied above were not validated at [facility]. Results from pediatric patients should be interpreted in conjunction to the patient's age, height and muscle mass. Sodium 137 135 - 145 mmol/L CERN[facility] MILLENNIUM Potassium 3.5 3.5 - 5.0 mmol/L [facility] MILLENNIUM Comment: Please note: ??Patients with WBC >100,000 may have falsely elevated Potassium levels. ??For accurate Potassium quantification in these patients send serum separator tube (gold top) for subsequent determinations. ??Contact the Clinical Chemistry Laboratory if there are any questions. Chloride 101 98 - 107 mmol/L CERNER MILLENNIUM Carbon Dioxide 22 22 - 31 mmol/L [facility]ERN[facility] MILLENNIUM Anion Gap 14 5 - 15 mmol/L [facility] MILLENNIUM Calcium 9.4 8.5 - 10.5 mg/dL [facility] MILLENNIUM Protein, Total 7.2 6.4 - 8.3 gm/dL [facility] MILLENNIUM Albumin 4.5 3.2 - 5.2 gm/dL [facility] MILLENNIUM Aspartate Aminotransferase 15 0 - 30 unit/L [facility] MILLENNIUM Alanine Aminotransferase 10 0 - 30 unit/L [facility] MILLENNIUM Alkaline Phosphatase 41 40 - 104 unit/L [facility] MILLENNIUM Bilirubin, Total 0.6 0.2 - 1.3 mg/dL [facility] MILLENNIUM Bilirubin, Direct 0.1 0.0 - 0.3 mg/dL [facility] MILLENNIUM Est Glomerular Filtration Rate >60 >=60 [facility]ERNER MILLENNIUM Comment: This estimated GFR (eGFR) value was calculated using the MDRD equation which has been validated on patients between the ages of 18 and 70. The MDRD should not be used to assess kidney function in patients < 18 years of age or in patients with extremes of body mass, or in patients with acute kidney failure. This value should be multiplied by 1.2 for patients. For further information please copy and paste the following links into your internet browser. http://www.nkdep.nih.gov/lab-evaluation.shtml http://www.kidney.org/professionals/ Blood specimen (specimen) 04/27/2013 2:31 PM EDT 04/27/2013 2:38 PM EDT Narrative Resulting Agency Comment Spec In Lab Anila Serna MD CHEMISTRY ORDERABLE S [facility] * CBC (with Diff) (04/27/2013 2:31 PM EDT) White Blood Cell 7.3 4.0 - 10.0 x10(3)/mcL [facility] MILLENNIUM Red Blood Cell 4.85 3.93 - 5.22 x10(6)/mcL [facility] MILLENNIUM Hemoglobin 14.7 11.2 - 15.7 gm/dL CERN[facility] MILLENNIUM Hematocrit 42.3 34.0 - 45.0 % CERNER MILLENNIUM Mean Cell Volume 87.2 79.0 - 94.0 fL CERNER MILLENNIUM Mean Cell Hemoglobin 30.3 26.6 - 32.2 pg CERNER MILLENNIUM Mean Cell Hemoglobin Concentration 34.8 32.0 - 36.5 gm/dL CERNER MILLENNIUM Platelet 259 145 - 370 x10(3)/mcL CERNER MILLENNIUM RDW Standard Deviation 40.1 35.0 - 46.0 fL C[facility] MILLENNIUM RDW coefficient of variation 12.5 10.9 - 14.4 % CERNER MILLENNIUM Mean Platelet Volume 10.4 9.0 - 12.0 fL [facility] MILLENNIUM Blood specimen (specimen) 04/27/2013 2:31 PM EDT 04/27/2013 2:38 PM EDT Narrative Resulting Agency Comment Spec In Lab Anila Serna MD HEMATOLOGY ORDERABL ES RUBEN BENNETT documented in this encounter Visit Diagnoses Diagnosis Fatigue- Primary Other malaise and fatigue Night sweats Generalized hyperhidrosis documented in this encounter
--- OUTSIDE RECORDS SUMMARY | 2024-06-10 18:50 | XMS_ITS | Encounter Summary ---
[place] [address] Care Team Providers Care Acute Care Registered Nurse Name Role Phone Anuja Cai APRN Primary Care Provider [phone] Reason for Referral * Allergy Testing (Routine) - Closed Specialty Diagnoses / Procedures Referred By Contmaya t Referred To Contact Allergy Diagnoses Other allergy status, other than to drugs and biological substances Allergy to other foods Anuja Cai APRN [address] [place] [address] [facility] [address] [place] [address] Referral ID Status Reason Start Date Expiration Date V isits Requested Visits Authorized [id number] Closed Consult, Test & Treat PCP Updated and/or Approved 11/24/2022 11/24/2023 6 6 Encounter Details Date Type Department Care Team (Latest Contact Info) Description 11/24/2022 Transcribe Orders eDH Incoming Referrals [phone] Anuja Cai APRN [address] [place], [place] [id number] Other allergy status, other than to drugs and biological substances; Allergy to other foods Social History Tobacco Use Types Packs/Day Years Used Date Smoking Tobacco: Every Day Cigarettes 1 18 Smokeless Tobacco: Never Comments:vape Alcohol Use Standard [...] 12:00 PM EDT Office [place] [address] Britt Zurita MD [facility] [place] [address] Scheduled Referrals Name Type Priority Associated Diagnoses Orde r Schedule Referral to Allergy Outpatient Referral Routine Other allergy status, other than to drugs and biological substances Allergy to other foods Ordered: 11/24/2022 documented as of this encounter Visit Diagnoses Diagnosis Other allergy status, other than to drugs and biological substances Allergy to other foods documented in this encounter Care Teams Acute Care Registered Nurse Relationship Specialty Start Date End Date Anuja Cai APRN [address] [place] [address] PCP - General Internal Medicine 07/25/21 documented as of this encounter
--- OUTSIDE RECORDS SUMMARY | 2024-06-10 18:50 | XMS_ITS | Encounter Summary ---
Author Organization [facility] [place] [address] Care Team Providers Care Senior Java J2Ee Developer Name Role Phone Unavailable Primary Care Provider Unavailabl e Encounter Details Date Type Department Care Team (Late st Contact Info) Description 05/26/2013 Telephone Obstetrics [place] [address] Julio Cristina MD [facility] DR OBSTETRICS & [place] [address] Social History Tobacco Use Types Packs/Day Years [...] AM EDT documented as of this encounter Miscellaneous Notes * Telephone Encounter - Julio Cristina MD - 05/26/2013 5:19 PM EDT Called patient with the following results from recent colposcopy: Endocervical curettings: 1. Fragments of benign endocervical mucosa intermixed with cervical mucus and blood clot. 2. No evidence of dysplasia or HPV effect. Recommend repeat pap and co-testing in 1 year. JULIO CRISTINA MD documented in this encounter Plan of Treatment Upcoming Encounters Date Type Department Care Team (Late st Contact Info) Description 08/17/2024 12:00 PM EDT Office [place] [address] Britt Zurita MD [facility] [place] [address] documented as of this encounter Visit Diagnoses Not on filedocumented in this encounter
--- OUTSIDE RECORDS SUMMARY | 2024-06-10 18:50 | XMS_ITS | Encounter Summary ---
Author Organization [facility] [place] [address] Care Team Providers Care [employer] Program Coordinator Name Role Phone Anuja Cai APRN Primary Care Provider [phone] Encounter Details Date Type Department Care Team (Latest Contact Info) Description 09/29/2021 5:28 PM EST - 09/29/2021 11:59 PM EST Hospital [place] [phone] Discharge Disposition: Home Social History Tobacco Use Types Packs/Day Years Used Date Smoking Tobacco: Every Day Cigarettes 1 18 Smokeless Tobacco: Never Comments:soon not just yet Alcohol Use Standard Drinks/Week Comments Yes 3 [...] Dispensed Refills Start Date End Date acetaminophen (Tylenol) 325 mg tablet Take 650 mg by mouth every 6 hours as needed. 07/20/2014 levothyroxine (Synthroid) 112 mcg Tablet Take 112 mcg by mouth daily. Will take 125 mcg after today 02/16/24 07/29/2021 fluticasone propionate (Flonase) 50 mcg/actuation [place], Suspension SPRAY ONE SPRAY IN EACH NOSTRIL TWICE A DAY 08/07/2021 fluconazole (Diflucan) 150 mg Tablet Take 150 mg by mouth as needed. 07/25/2021 docusate sodium (Colace) 100 mg capsule Take 100 mg by mouth Twice daily as needed. 07/20/2014 02/16/2024 dexmethylphenidate (FOCALIN) 10 mg Tablet Take 10 mg by mouth 2 times daily. 04/02/2023 omeprazole (PriLOSEC) 40 mg Capsule, Delayed Release(E.C.)Indications :Heartburn,Chest pain, unspecified type,Gastric ulcer, unspecified chronicity, unspecified whether gastric ulcer hemorrhage or perforation present,Incontinence of feces with fecal urgency,Steatorrhea,Diar clayton, unspecified type,Irritable bowel syndrome, unspecified type,Hiatal hernia,Gastroesophageal reflux disease, unspecified whether esophagitis present Take 1 capsule by mouth 2 times daily. 60 capsule 11 08/19/2021 08/19/2022 fexofenadine (AFSHIN) 180 mg Tablet Take 180 mg by mouth daily. 07/29/2021 04/02/2023 hydroCHLOROthiazide (Hydrodiuril) 25 mg Tablet Take 25 mg by mouth daily. 07/19/2021 04/02/2023 meloxicam (MOBIC) 15 mg Tablet Take 15 mg by mouth as needed. 07/19/2021 04/02/2023 cholecalciferol, Vitamin D3, 400 unit tablet Take 1,200 Units by mouth daily. 04/02/2023 multivitamin with minerals (THERA-M) 9-0.4 mg tablet Take 1 tablet by mouth daily. 04/16/2023 levothyroxine (SYNTHROID) 88 mcg tablet Take 1 tablet by mouth daily. 90 tablet 3 04/14/2013 04/02/2023 omeprazole (PRILOSEC) 40 mg capsule Take 1 capsule by mouth daily. 30 capsule 11 03/22/2013 04/02/2023 documented as of this encounter Plan of Treatment Upcoming Encounters Date Type Department Care Team (Late st Contact Info) Description 08/17/2024 12:00 PM EDT Office [place] [address] Britt Zurita MD [facility] [place] [address] documented as of this encounter Procedures Procedure Name Priority Date/Time Associated Diagnosis Comments CALPROTECTIN,STOOL Routine 09/29/2021 3: 30 PM EST ELASTASE, STOOL Routine 09/29/2021 3:30 PM EST documented in this encounter Results * Elastase, Stool (09/29/2021 3:30 PM EST) Elastase Stool (QST) >500 mcg/g [facility] Comment: Adult and Pediatric Reference Ranges for ??Pancreatic Elastase-1: ? Normal: ?>200 mcg/g Moderate Pancreatic ?Insufficiency: ?? 100-200 mcg/g ??Severe Pancreatic ?Insufficiency: ?<100 mcg/g Elastase-1 (E-1) assay results are expressed in mcg/g, which represent mcg E1/g feces. It is not necessary to interrupt enzyme substitution therapy. Test performed by [employer] [employer] ?[id number], ?[place] [address] ? Fatback Trimmer: Diana Fraga MD,PHD,GERARDO Test Reported by Cecile Lazaro, [facility], [address] [place], [place] Skyler Turner M.D., Ph.D., Director of Laboratories , [place] [id number] Stool Other / Unknown 09/29/2021 3 :30 PM EST 10/01/2021 9:57 AM EST Narrative Resulting Agency Comment Spec In Lab Carla Jose APRN LAB SEND OUT [place] [facility] [place] [address] * (ABNORMAL) Calprotectin, Stool (09/29/2021 3:30 PM EST) Calprotectin, Stool 342(H) <=79 mcg/g [facility] Comment: Calprotectin Concentration ? Interpretation ? < 80 mcg/g ?Normal ? 80 ? 160 mcg/g ?Borderline ? >160 mcg/g ?Elevated Stool Other / Unknown 09/29/2021 3 :30 PM EST 09/30/2021 12:32 PM EST Narrative Resulting Agency Comment Spec In Lab Carla Jose APRN BODY FLUIDS AND STO OLS ORDERABLES Performing Organization Address City/State/[facility] Co de Phone Number [facility] [place] [address] documented in this encounter Visit Diagnoses Not on filedocumented in this encounter Care Teams [employer] Program Coordinator Relationship Specialty Start Date End Date Anuja Cai APRN [address] [facility] [place] [address] PCP - General Internal Medicine 07/25/21 documented as of this encounter
--- OUTSIDE RECORDS SUMMARY | 2024-06-10 18:50 | XMS_ITS | Encounter Summary ---
Author Organization [facility] [place] [address] Care Team Providers Care Pst Manager Name Role Phone Anuja Cai APRN Primary Care Provider [phone] Encounter Details Date Type Department Care Team (Late st Contact Info) Description 11/28/2022 Ancillary Procedure [place] [phone] Anuja Cai APRN [address] [place] [address] Social History Tobacco Use Types Packs/Day Years [...] 12:00 PM EDT Office [place] [phone] Britt Zurita MD [facility] [address] [place], [place] [id number] documented as of this encounter Procedures Procedure Name Priority Date/Time Associated Diagnosis Comments FILM LIBRARY STORAGE ONLY DX KNEE Routine 11/28/2022 12:00 AM EST documented in this encounter Results * Film Library- Storage Only DX Knee (11/28/2022 12:00 AM EST) Narrative [facility] - 02/02/2023 10:20 PM EDT This exam is auto-finalizing. It's purpose is for storage only. Anuja Cai APRN Fanny FILM LIBRARY ORD ERABLES Performing Organization Address City/State/[facility] Co de Phone Number [place], [place] documented in this encounter Visit Diagnoses Not on filedocumented in this encounter Care Teams Pst Manager Relationship Specialty Start Date End Date Anuja Cai APRN [address] [place] [address] PCP - General Internal Medicine 07/25/21 documented as of this encounter
--- OUTSIDE RECORDS SUMMARY | 2024-06-10 18:50 | XMS_ITS | Encounter Summary ---
Author Organization [facility] Address [facility] [place] [address] Care Team Providers Care Pairer Name Role Phone Anuja Cai APRN Primary Care Provider [phone] Encounter Details Date Type Department Care Team (Latest Contact Info) Description 04/02/2023 Travel Social History Tobacco Use Types Packs/Day [...] 12:00 PM EDT Office [place] [address] Britt Zurita MD [facility] [place] [address] documented as of this encounter Visit Diagnoses Not on filedocumented in this encounter Care Teams Pairer Relationship Specialty Start Date End Date Anuja Cai APRN [address] [place], [place] [address] PCP - General Internal Medicine 07/25/21 documented as of this encounter
--- OUTSIDE RECORDS SUMMARY | 2024-06-10 18:50 | XMS_ITS | Encounter Summary ---
Author Organization [facility] [place] [address] Care Team Providers Care Cook Enchilada Name Role Phone Unavailable Primary Care Provider Unavailabl e Reason for Visit * Reason Comments Other Encounter Details Date Type Department Care Team (Late st Contact Info) Description 04/25/2013 Telephone Internal Medicine at [facility] [address] [place] [address] Massiel Bonilla, PLANTING MATERIAL CARRIER Social History Tobacco Use Types Packs/Day Years [...] encounter Miscellaneous Notes * Telephone Encounter - Massiel Chaidez - 04/25/2013 9:43 AM EDT First attempt made contacting patient. Awaiting return phone call from patient to discuss results. 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 I have put in a referral order already. Thanks, Elsie ----- Message ----- From: [place], [facility] Sent: 04/21/2013 4:15 PM To: Liya Richardson APRN documented in this encounter Plan of Treatment Upcoming Encounters Date Type Department Care Team (Late st Contact Info) Description 08/17/2024 12:00 PM EDT Office [place] [address] Britt Zurita MD [facility] [place] [address] documented as of this encounter Visit Diagnoses Not on filedocumented in this encounter
--- OUTSIDE RECORDS SUMMARY | 2024-06-10 18:50 | XMS_ITS | Encounter Summary ---
[place] [address] Care Team Providers Care Solid Die Cutter Name Role Phone Anuja Cai APRN Primary Care Provider + [phone] Encounter Details Date Type Department Care Team ([facility] st Contact Info) Description 08/23/2021 Telephone [place] [address] Skyler Velasquez Social History Tobacco Use Types Packs/Day Years [...] encounter Miscellaneous Notes * Telephone Encounter - Skyler Velasquez - 08/23/2021 3:25 PM EDT PADRON CLINICAL SAFETY CHECKLIST 08/23/2021 Skyler Smith [address] [facility] [address] [id number] : 1980 REFERRING PROVIDER: Carla PRIMARY CARE PROVIDER: Anuja Cai APRN PRIMARY SYMPTOM (PROCEDURE INDICATION): heartburn SAFETY QUESTIONS PACEMAKER/DEFIBRILLATOR? no NEUROSTIMULATOR? no ESOPHAGEAL VARICES? no SENSITIVITY OR ALLERGY TO NICKEL? no BLOOD THINNERS SUCH PLAVIX, COUMADIN, PRADAXA, ELIQUIS, XARELTO, PLAVIX? No IF YES TO ANY OF THE ABOVE PRE-PROCEDURE QUESTIONS, please inform the patient that the test cannot be scheduled due to safety concerns about testing, and the patient should speak with their provider to consider alternative testing. The flight crew scheduler should also contact the provider's office directly tonotify them that we are unable to schedule due to a contraindication to testing. Then, delete the remainder of this checklist and close out the referral. QUESTIONS TO THE PATIENT PATIENT AGREE TO IN-PERSON RETURN OF SANITARIAN WITHIN 72H OF CAPSULE PLACEMENT: Yes PT AGREES THEY MUST NOT HAVE AN MRI FOR 30 DAYS AFTER PADRON CAPSULE IS PLACED (okay for pt to have echocardiogram or ultrasound): Yes DIABETIC? No Diabetic patients should speak with their PCP or managing provider at least two weeks before the test to ask what medication or insulin adjustments are needed for testing. If the patient feels ill while fasting due to diabetes, it is OK to have a little apple juice - just enough to feel better. Patients fast 8 hours before testing and the test lasts 1 hour. DOES THE PATIENT USE A WHEELCHAIR? no VERBAL PATIENT INSTRUCTIONS FOR on-PPI STUDY The written instructions are very important for the patient to review and contain specific dietary and medication instructions prior to testing. These instructions will give the patient the most accurate test result. The patient should speak with their referring provider or our office if they have any questions. APPOINTMENT NOTES TEMPLATE EGD Padron off PPI, symptom: heartburn, RMD: Carla Jose, PCP: Anuja Cai APRN (At exit, the RMD for appointment notes is the GI provider who saw the patient) Teri Sayda Smith [id number] Diagnosis/Indication: EGD/[place] [employer] 1. Have you ever had a/an Upper Endoscopy & Colonoscopy before? Yes: Date egd uv 2012, colo [facility] 2012 If yes, did you have any problems with the procedure? No What type of sedation was used: Other: unknown 2. Do you take any blood thinners or have you been diagnosed with a bleeding disorder that increases your risk of bleeding with procedures? No 3. Do you have a Pacemaker or Defibrillator device? No 4. Are you a diabetic? No 5. Do you have any Allergies to Eggs, Latex or Medications? No 6. Do you take any Oral Iron Supplements (Including multi-vitamins)? No 7. Do you have a history of three or more abdominal surgeries? No 8. Have you had a problem with sedation or anesthesia? No 9. Do you use a c-pap machine or oxygen tank? Neither 10. Do you take prescription narcotic pain medications, including suboxone or methodone? No 11. Do you have a preference regarding the gender of your provider? No Preference 12. Is there any other information you would like to us to note for the provider and nursing team who will perform your case? No 13. Say to patient: You must have a responsible constitution party who will drive you to your procedure, stay [place] for the entire duration of your procedure, and drive you home from your procedure? *Please Verify the height and weight, and adjust if height and/or weight have changed* Estimated body mass index is 32.11 kg/m?? as calculated from the following: Height as of 08/19/21: 170.2 cm (5' 7). Weight as of 08/19/21: 93 kg (205 lb). *Delete if not needed* Height: 5'7 Weight: 205 BMI: 32.11 Age:41 y.o. documented in this encounter Plan of Treatment Upcoming Encounters Date Type Department Care Team (Late st Contact Info) Description 08/17/2024 12:00 PM EDT Office [place] [address] Britt Zurita MD [facility] [place] [address] documented as of this encounter Visit Diagnoses Not on filedocumented in this encounter Care Teams Solid Die Cutter Relationship Specialty Start Date End Date Anuja Cai APRN [address] [place] [address] PCP - General Internal Medicine 07/25/21 documented as of this encounter
--- OUTSIDE RECORDS SUMMARY | 2024-06-10 18:50 | XMS_ITS | Encounter Summary ---
Author Organization [facility] [place] [address] Care Team Providers Care Drywall Foreman Name Role Phone Unavailable Primary Care Provider Unavailabl e Encounter Details Date Type Department Care Team (Late st Contact Info) Description 04/10/2013 9:36 AM EDT - 04/10/2013 10:10 AM EDT [place] [id number] Skyler Torrez PA [address] [place] [address] EMERGENCY DEPT, [facility] [place] [address] Otitis media (Primary Dx) Discharge Disposition: Home Social History Tobacco Use Types Packs/Day Years Used Date Smoking Tobacco: Every Day Cigarettes 1 18 Smokeless Tobacco: Never Alcohol Use Standard Drinks/Week Comments Yes 6 [...] Sign Reading Time Taken Comments Blood Pressure 138/94 04/10/2013 9:47 AM EDT Pulse 68 04/10/2013 9:47 AM EDT Temperature 36.9 ??C (98.4 ??F) 04/10/2013 9:47 AM ED T Respiratory Rate 18 04/10/2013 9:47 AM EDT Oxygen Saturation - - Inhaled Oxygen Concentration - - Weight - - Height - - Body Mass Index - - documented in this encounter Discharge Instructions * Discharge Instructions* Skyler Torrez PA - 04/10/2013 10:02 AM EDT Amoxicillin as prescribed. Please finish your to finish entire course. Tylenol or ibuprofen as needed for pain. Evaluate with any new or worsening symptoms It is very important you stop smoking. * Attachments The following attachments cannot be sent through Care Everywhere. * EAR INFECTION IN ADULTS (OTITIS MEDIA): AFTER YOUR VISIT (RWANDAN) documented in this encounter Medications at Time of Discharge Medication Sig Dispensed Refills Start Date End Date omeprazole (PRILOSEC) 40 mg capsule Take 1 capsule by mouth daily. 30 capsule 11 03/22/2013 04/02/2023 levothyroxine (SYNTHROID) 88 mcg tablet Take 88 mcg by mouth daily. 04/14/2013 documented as of this encounter ED Notes * Kenny Echavarria - 04/10/2013 10:10 AM EDT Resp even/nonlabored. Skin w/d. AAox3. Bilateral ear discomfort, left appears infected. AUSTIN Chamorro w/ disposition and prescriptions * Skyler Torrez PA - 04/10/2013 10:03 AM EDT No chief complaint on file. Patient is a 32 y.o. female presenting with ear pain. The history is provided by the patient. Otalgia The current episode started 2 days ago. The problem occurs continuously. The problem has been unchanged. The ear pain is mild. There is no abnormality behind the ear. Nothing relieves the symptoms. Nothing aggravates the symptoms. Associated symptoms include ear pain and cough (slight, now improved). Pertinent negatives include no fever, no eye itching, no nausea, no vomiting, no congestion, no ear discharge, no headaches, no rhinorrhea, no sore throat, no stridor, no muscle aches, no wheezing,no rash and no eye discharge. There were no sick contacts. She has received no recent medical care. No Known Allergies Review of Systems Constitutional: Negative for fever. HENT: Positive for ear pain. Negative for congestion, sore throat, rhinorrhea and ear discharge. Eyes: Negative for discharge and itching. Respiratory: Positive for cough (slight, now improved). Negative for wheezing and stridor. Gastrointestinal: Negative for nausea and vomiting. Skin: Negative for rash. Neurological: Negative for headaches. Physical Exam Nursing note and vitals reviewed. Constitutional: She is oriented to person, place, and time. She appears well- developed and well-nourished. HENT: Head: Normocephalic and atraumatic. Right Ear: Hearing and external ear normal. No drainage. No mastoid tenderness. Tympanic membrane is injected, erythematous and retracted. Tympanic membrane is not perforated. A middle ear effusion is present. Left Ear: Hearing and external ear normal. No drainage. No mastoid tenderness. Tympanic membrane isinjected, erythematous and retracted. Tympanic membrane is not perforated. A middle ear effusion ispresent. Nose: Nose normal. Eyes: Conjunctivae normal are normal. Neck: Normal range of motion. Neck supple. Cardiovascular: Normal rate, regular rhythm and normal heart sounds. Pulmonary/Chest: Effort normal and breath sounds normal. Neurological: She is alert and oriented to person, place, and time. Skin: Skin is warm and dry. Psychiatric: She has a normal mood and affect. Procedures MDM ED Course: The patient was evaluated as above. She has bilateral otitis media. It has been going onfor 2-3 days. She will be discharged home on amoxicillin 500 3 times a day for 10 days #30. She wasencouraged to discontinue smoking. Symptomatic care otherwise, reevaluate for worsening symptoms, followup if not improved in 5-7 days. Skyler Torrez PA 04/10/13 1006 documented in this encounter Miscellaneous Notes * Discharge Summary - ProviderNacho - 04/11/2013 9:16 AM EDT * Miscellaneous - Provider, Scanning - 04/10/2013 10:49 AM EDT * ED Triage - Obi Costa RN - 04/10/2013 9:48 AM EDT Patient reports URI Thursday, with bilateral ear pain since Thursday. PWD NAD. documented in this encounter Plan of Treatment Upcoming Encounters Date Type Department Care Team (Late st Contact Info) Description 08/17/2024 12:00 PM EDT Office [place] [address] Britt Zurita MD [facility] [place] [address] documented as of this encounter Visit Diagnoses Diagnosis Otitis media- Primary Unspecified otitis media documented in this encounter
--- OUTSIDE RECORDS SUMMARY | 2024-06-10 18:50 | XMS_ITS | Encounter Summary ---
[place] [address] Care Team Providers Care High Risk Case Manager Name Role Phone Anuja Cai APRN Primary Care Provider + [phone] Reason for Referral * Consultation (Routine) - Closed Specialty Diagnoses / Procedures Referred By Ehsan t Referred To Contact Orthopaedics Diagnoses Disorder of bone R KNEE ACL TEAR AND OSTEOCHONDRAL LESION LATERAL FEMORAL CONDYLE Tabatha Carmen APRN [address] [place] [address] [facility] [address] [place] [id number] Referral ID Status Reason Start Date Expiration Date V isits Requested Visits Authorized [id number] Closed Consult, Test & Treat PCP Updated and/or Approved 02/03/2023 02/03/2024 6 6 Encounter Details Date Type Department Care Team (Late st Contact Info) Description 02/03/2023 Transcribe Orders eDH Incoming Referrals [phone] Tabatha Carmen APRN [address] [place] [address] Disorder of bone Social History Tobacco Use Types Packs/Day Years [...] 12:00 PM EDT [place] [address] Britt Zurita MD [facility] [place] [address] Scheduled Referrals Name Type Priority Associated Diagnoses Order Schedule Referral to Orthopaedics Outpatient Referral Routine Disorder of bone Ordered: 02/03/2023 documented as of this encounter Visit Diagnoses Diagnosis Disorder of bone Disorder of bone and cartilage, unspecified documented in this encounter Care Teams High Risk Case Manager Relationship Specialty Start Date End Date Anuja Cai APRN [address] [place] [address] PCP - General Internal Medicine 07/25/21 documented as of this encounter
--- OUTSIDE RECORDS SUMMARY | 2024-06-10 18:50 | XMS_ITS | Encounter Summary ---
Author Organization [facility] [place] [address] Care Team Providers Care Shells Inspector Name Role Phone Anuja Cai APRN Primary Care Provider + [phone] Reason for Visit * Consultation (Routine) - Closed Specialty Diagnoses / Procedures Referred By Ehsan patel Referred To Contact Rheumatology Diagnoses Arthralgia, unspecified joint Other chronic pain Other fatigue Other specified abnormal immunological findings in serum Anuja Cai APRN [address] [place] [address] [facility] [address] [place] [address] Referral ID Status Reason Start Date Expiration Date V isits Requested Visits Authorized [id number] Closed Consult, Test & Treat PCP Updated and/or Approved 02/17/2023 02/17/2024 6 6 Encounter Details Date Type Department Care Team (Late st Contact Info) Description 04/02/2023 10:00 AM EDT [place] [address] Britt Zurita MD [facility] [place] [address] Polyarthralgia Social History Tobacco Use Types Packs/Day [...] Sign Reading Time Taken Comments Blood Pressure 129/88 04/02/2023 9:44 AM EDT Pulse 79 04/02/2023 9:44 AM EDT Temperature 36.3 ??C (97.4 ??F) 04/02/2023 9:44 AM ED T Respiratory Rate 20 04/02/2023 9:44 AM EDT Oxygen Saturation 100% 04/02/2023 9:44 AM EDT Inhaled Oxygen Concentration - - Weight 95.8 kg (211 lb 1.6 oz) 04/02/2023 9:44 A M EDT Height - - Body Mass Index 33.06 08/19/2021 11:01 AM EDT documented in this encounter Progress Notes * Britt Zurita MD - 04/02/2023 10:00 AM EDT Rheumatology Outpatient Consultation Note Reason for Consult: Teri Smith is a 42 y.o. female who we are seeing at the request of Anuja Cai for evaluation of polyarthralgia. HPI: The patient is a 42-year-old female with a past medical history of GERD, obstructive sleep apnea, hypothyroidism, prediabetes, IBS, and PTSD who has been referred to rheumatology for evaluation of polyarthralgia in the setting of positive LIZZIE. The patient reports longstanding joint issues and this started with her 'tendinitis' in both the shoulders around the age of 28 years. This was initially in the left shoulder and then moved to the other shoulder. She saw a doctor Around the age of 31 years, she had sudden onset of hip pain on both sides and she went to a hospital in [place], [place] and she was diagnosed with 'bursitis'. The pain in hips comes and goes. She started having pain in both mckoy nds since December of this year. This is associated with morning stiffness of around 1-2 hours and also numbness in the fingers sometimes. She endorses having a poor sleep quality and she wakes up tired. She had a sleep study a year and a half ago and apparently she did not have sleep apnea and was advised to sleep on her back. 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 Her fingers are sensitive to cold but they do not change color. She had 2 spontaneous abortions at the gestational age of 8 weeks and 20 weeks and apparently this was attributed to incompetent cervix. She denies joint swelling/redness, frequent oral/nasal ulcerations, hair loss, pleuritis, pericarditis or thromboembolism. Medical History: Past Medical History: Diagnosis Date ??? Anxiety ??? Gastric ulcer ??? Hypertension ??? Hypothyroid ??? Thyroid disease ??? Vaginal yeast infection Surgical History: Past Surgical History: Procedure Laterality Date ??? PRO COLONOSCOPY, DIAGNOSTIC N/A 09/30/2021 COLONOSCOPY, DIAGNOSTIC performed by Guilherme [place] MD at [facility] END[facility]COPY ??? PRO UPPER GI ENDOSCOPY, BIOPSY N/A 09/30/2021 EGD WITH BIOPSY (WRVU 2.49) performed by Guilherme [place] MD at [facility] ENDOSCOPY ??? UTERINE FIBROID SURGERY ??? WISDOM TOOTH EXTRACTION ??? WISDOM TOOTH EXTRACTION Family Hx: Family History Problem Relation Age of Onset ??? Thyroid Disease Mother ??? Aneurysm Mother Brain ??? Diabetes Father type ii ??? Heart Disease Father ??? Cancer Maternal Aunt thyroid cancer 2 aunts ??? Thyroid Disease Maternal Aunt ??? Diabetes Maternal Grandmother type II ??? Heart Disease Maternal Grandmother ??? Cancer Paternal Grandfather colon cancer ??? Asthma Neg Hx No family history of RA, SLE, OA, Sjogren's, Scleroderma, or gout Social History: Social History Tobacco Use ??? Smoking status: Every Day Packs/day: 1.00 Years: 18.00 Pack years: 18.00 Types: Cigarettes ??? Smokeless tobacco: Never ??? Tobacco comments: vape Substance Use Topics ??? Alcohol use: Yes Alcohol/week: 3.0 standard drinks Types: 3 Glasses of wine per week Comment: twice a month ??? Drug use: No Comment: rarely - for joint pain Allergies: Allergies Allergen Reactions ??? Kiwi Other reaction(s): Anaphylaxsis ??? House Dust Mite ROS (positive in bold): General: Fever, chills, night sweats, weight loss/gain HEENT: Oral ulcers, dry eyes, dry mouth, red/itchy eyes Card: Chest pain, palpitations Pulm: SOB, cough GI: Abd pain, nausea, vomiting, diarrhea, dysphagia, reflux : Dysuria, urgency, hematuria, genital ulcers MS: Arthritis, arthralgia, muscle aches Neuro: Weakness, numbness, tingling, headache Skin: Raynaud's, rash, hair loss, photosensitivity, hair changes Psych: Depression, anxiety, difficulty sleeping Rheumatic history (x) means positive Iritis Dactylitis Pleuritis Pericarditis Oral / Nasal Ulcers PE/DVT Spontaneous Discoid SLE STD Raynaud???s Psoriasis Seizures Anemia Leucopenia Thrombocytopenia Psychosis from a medical condition Physical Examination: BP 129/88 (BP Location (NBP): Left arm, Patient Position: Sitting, BP Cuff Sizes: Adult (25-34 cm)) Pulse 79 Temp 36.3 ??C (97.4 ??F) (Temporal) Resp 20 Wt 95.8 kg (211 lb 1.6 oz) LMP 03/04/2023 (Approximate) SpO2 100% BMI 33.06 kg/m?? General: Well appearing, NAD HEENT: Mucous membranes are moist, no oral mucosal ulcerations Neck: Supple, no lymphadenopathy, full range of motion Cardiovascular: RRR, no m/r/g, normal S1/S2, 2+ pulses Lungs: CTA b/l no w/r/r Abdomen: Soft, nontender, nondistended, normal active bowel sounds, no hepatosplenomegaly Skin: No rashes or lesions noted Nails: No nail pitting Extremities: Shoulders: FROM, bilateral trapezial tenderness Elbows:FROM, bilateral epicondylar tenderness Wrists: FROM, no swelling, non-tender Hands: No synovitis, no MCP compression tenderness, full claw and fist Hips: FROM, bilateral trochanteric tenderness Knees: FROM, no effusion, bilateral pes anserine tenderness Ankles: FROM, non-tender, no effusion Feet: no MTP compression tenderness Laboratory Data: 01/2023: Anti-CCP antibody negative, RF 14.3 (<12), ESR normal, UA normal, LIZZIE 1:320 in dense fine speckled pattern, tick panel negative Assessment: 42-year-old female with a past medical history of GERD, obstructive sleep apnea, hypothyroidism, prediabetes, IBS, and PTSD who has been referred to rheumatology for evaluation of polyarthralgia in the setting of positive LIZZIE. The patient reported longstanding polyarthralgia including her shoulders, hips and most recently hands. She has morning stiffness of around 1-2 hours and also numbness in the fingers sometimes. She endorses having a poor sleep quality and she wakes up tired. She had a sleep study a year and a half ago and apparently she did not have sleep apnea and was advised to sleep on her back. She reports she reports being photosensitive, and has dry eyes. She had 2 spontaneous abortions at the gestational age of 8 weeks and 20 weeks and apparently this was attributed to incompetent cervix. She denies Raynaud's, joint swelling/redness, frequent oral/nasal ulcerations, hair loss, pleuritis, pericarditis or thromboembolism. Physical examination today does not reveal any evidence of synovitis, rash, skin thickening, enthesitis or dactylitis. She was noted to have multiple tender points though. Her previous labs have shown mildly elevated rheumatoid factor, negative anti-CCP antibody, normal ESR and a positive LIZZIE in the titer of 1: 320 and a dense fine speckled pattern. The differential diagnosis for patient's clinical presentation includes an inflammatory arthritis such as rheumatoid arthritis/psoriatic arthritis versus a systemic disease like lupus or Sjogren syndrome versus a mechanical etiology including fibromyalgia. The presence of hand symptoms and morning stiffness makes me somewhat suspicious about an inflammatory arthritis but she does not have any relevant findings on examination. Even though her LIZZIE is positive, she does not seem to have many features related to lupus or Sjogren's. It is possible that she has a positive LIZZIE due to her thyroid disease. With the presence of multiple tender points, fibromyalgia could explain her symptoms. Discussed with her in detail about the management of fibromyalgia. For now, recommended further work-up to which she was agreeable. Plan: -Check CBC, CMP, ESR, CRP, rheumatoid factor and ELVIN level. -Check LIZZIE, ROMARIO, antidouble-stranded DNA antibody, C3, C4, antiphospholipid antibodies, UA and urine protein/creatinine ratio. Follow-up in 2 weeks. Total time spent on counseling and coordination of care was 60 minutes. Britt Zur[place], [address] CC: Anuja Cai APRN documented in this encounter Plan of Treatment Upcoming Encounters Date Type Department Care Team (Late st Contact Info) Description 08/17/2024 12:00 PM EDT [place] [address] Britt Zurita MD [facility] [place] [address] documented as of this encounter Procedures Procedure Name Priority Date/Time Associated Diagnosis Comments PORPHYRINS, QUANT RANDOM URINE Routine 04/02/2023 11:05 AM EDT Polyarthralgia PROTEIN/CREATININE RATIO, URINE Routine 04/02/2023 11:05 AM EDT Polyarthralgia URINALYSIS WITH REFLEX CULTURE Routine 04/02/2023 11:05 AM EDT Polyarthralgia HC PCH ANATITRE (ANDPATTERN) Routine 04/02/2023 11:00 AM EDT Polyarthralgia CRP, ACUTE INFLAMMATION Routine 04/02/2023 11:00 AM EDT Polyarthralgia LUPUS ANTICOAGULANT Routine 04/02/2023 1 1:00 AM EDT Polyarthralgia SILICA CLOTTING TIME Routine 04/02/2023 11:00 AM EDT Polyarthralgia DRVVT Routine 04/02/2023 11:00 AM EDT Polyarthralgia LYME IGG & IGM ANTIBODY Routine 04/02/2023 11:00 AM EDT Polyarthralgia HC ROMARIO PANEL Routine 04/02/2023 11:00 AM EDT Polyarthralgia DNA ANTIBODY (DOUBLE-STRANDED) Routine 04/02/2023 11:00 AM EDT Polyarthralgia BETA-2 GLYCOPROTEIN ANTIBODIES Routine 04/02/2023 11:00 AM EDT Polyarthralgia CARDIOLIPIN ANTIBODY SCREEN Routine 04/02/2023 11:00 AM EDT Polyarthralgia SEDIMENTATION RATE Routine 04/02/2023 11 :00 AM EDT Polyarthralgia HC RHEUMATOID FACTOR Routine 04/02/2023 11:00 AM EDT Polyarthralgia ANGIOTENSIN CONVERTING ENZYME Routine 04/02/2023 11:00 AM EDT Polyarthralgia C3 COMPLEMENT Routine 04/02/2023 11:00 AM EDT Polyarthralgia C4 COMPLEMENT Routine 04/02/2023 11:00 AM EDT Polyarthralgia COMPREHENSIVE METABOLIC PANEL Routine 04/02/2023 11:00 AM EDT Polyarthralgia documented in this encounter Results * Porphyrins, Quant Random Urine (04/02/2023 11:05 AM EDT) Porphyrins, Qn, Random U (MAY) Test ?Result ?Flag ??Unit ? RefValue ------- Porphyrins, QN, Random, U ??Uroporphyrin, [place] ?3 ? nmol/L ?? <=30 ??Heptacarboxylpor phyrins ? <1 ?nmol/L ?? <=7 ??Hexacarboxylporp hyrins ?<1 ?nmol/L ?? <=2 ??Pentacarboxylpor phyrins ? 1 ? nmol/L ?? <=5 ??Coproporphyrin, Tetra ? 46 ?nmol/L ?? <=110 ??Porphobilinogen ? 0.4 ? mcmol/L ??<=1.3 ??Interpretation ?In this sample, the porphyrins profile was normal. ? ---ADDITIONAL INFORMATION------- ?High-Performance Liquid Chromatography (HPLC) with ?fluoresence detection and Liquid Chromatography-Burt dem Mass ?Spectrometry (LC-MS/MS) ?This test was developed and its performance characteristics ?determined by [facility] in a manner consistent with CLIA ?requirements. This test has not been cleared or approved by ?the U.S. Food and Drug Administration. ?Test Performed by: ?[facility] ?[address] [id number] ?Hooker Machine Tender: Vimal Torrez M.D. Ph.D.; CLIA# [id number] [facility] Urine 04/02/2023 11:0 5 AM EDT 04/02/2023 4:37 PM EDT Narrative Resulting Agency Comment Spec In Lab Britt Zurita MD LAB SEND OUT ORDERA BLES Performing Organization Address [facility] Co de Phone Number [facility] [place] [address] * Protein/Creatinine Ratio, urine (04/02/2023 11:05 AM EDT) Creatinine, Urine 166 mg/dL [facility] Protein, Urine <6 0 - 12 mg/dL [facility] Protein / Creatinine Ratio, Urine <0.1 ratio [facility] Urine 04/02/2023 11:0 5 AM EDT 04/02/2023 11:18 AM EDT Narrative Resulting Agency Comment Spec In Lab Britt Zurita MD URINE ORDERABLES Performing Organization Address [facility] Co de Phone Number [facility] [place] [address] * (ABNORMAL) Urinalysis with reflex Culture (04/02/2023 11:05 AM EDT) Glucose, Urine Dipstick Negative Negative mg/dL [facility] Protein, Urine Dipstick Negative Negative mg/dL [facility] Bilirubin, Urine Dipstick Negative Negative mg/dL [facility] Comment: Clinical correlation required for positive Urine Bilirubin results as false positive may occur with some drugs and drug related products. If a false positive is suspected a serum total bilirubin should be considered if clinically indicated. Urobilinogen, Urine Dipstick Normal Normal mg/dL [facility] pH, Urn (dipstick) 5.5 5.0 - 8.0 [facility] Blood, Urine Dipstick Negative Negative mg/dL [facility] Ketone, Urine Dipstick Trace(A) Negative mg/dL [facility] Nitrite, Urine Dipstick Negative Negative [facility] Leukocytes, Urine Dipstick Negative Negative mcL [facility] Appearance, Urine Dipstick Clear Clear [facility] Specific [place] Urine Automated 1.020 1.005 - 1.030 [facility] Color, Urine Dipstick Yellow Yellow [facility] Reflex to Culture No [facility] Urine NS 04/02/2023 11:0 5 AM EDT 04/02/2023 11:17 AM EDT Narrative Resulting Agency Comment Spec In Lab Britt Zurita MD URINE ORDERABLES Performing Organization Address [facility] [place] [address] * (ABNORMAL) Silica Clotting Time (04/02/2023 11:00 AM EDT) Silica Clotting Time 1.37(H) <=1.19 ratio [facility] Comment: A result greater than 1.20 TR is consistent with the presence of lupus anticoagulant. Values of 1.20 to 1.24 in this assay are not definitively positive or negative for the presence of a lupus anticoagulant. The silica clotting time may be falsely elevated in patients on anticoagulants, especially heparins and direct oral anticoagulants. An abnormal test result in an anticoagulated patient must therefore be interpreted with caution, and repeat testing after discontinuing anticoagulation may be appropriate. Blood 04/02/2023 11:0 0 AM EDT 04/02/2023 11:06 AM EDT Narrative Resulting Agency Comment Spec In Lab Britt Zurita MD HEMATOLOGY ORDERABL ES Performing Organization Address [facility] Co de Phone Number [facility] [place] [address] * dRVVT (04/02/2023 11:00 AM EDT) dRVVT 0.99 <=1.19 IU/mL [facility] Comment: A result greater than 1.20 TR is consistent with the presence of lupus anticoagulant. Values of 1.20 to 1.30 in this assay are not definitively positive or negative for the presence of a lupus anticoagulant. The DRVVT ratio may be falsely elevated in patients on anticoagulants, especially heparins and direct oral anticoagulants. An abnormal test result in an anticoagulated patient must therefore be interpreted with caution, and repeat testing after discontinuing anticoagulation may be appropriate. Blood 04/02/2023 11:0 0 AM EDT 04/02/2023 11:06 AM EDT Narrative Resulting Agency Comment Spec In Lab Britt Zurita MD HEMATOLOGY ORDERABL ES Performing Organization Address [facility] Co de Phone Number [facility] [place] [address] * Lyme IgG & IgM Antibody (04/02/2023 11:00 AM EDT) [facility] Lyme Antibody Negative Negative [facility] Lyme Ab Comment Negative result does not exclude possibility of infection. [facility] Comment: Please note that as of 03/10/2023 that this testing is performed by the Special Chemistry Laboratory at [facility]. This change in testing location is associated with a change in testing methodology. Blood 04/02/2023 11:0 0 AM EDT 04/02/2023 12:52 PM EDT Narrative Resulting Agency Comment Spec In Lab Britt Zurita MD IMMUNOLOGY ORDERABL ES Performing Organization Address [facility] Co de Phone Number [facility] [place] [address] * (ABNORMAL) Angiotensin Converting Enzyme (04/02/2023 11:00 AM EDT) Pathologist [facility] Elvin (MARCH) 14(L) 16 - 85 unit/L [facility] Comment: Test Performed by: [address] [address] Hooker Machine Tender: Vimal Torrez M.D. Ph.D.; CLIA# [id number] Blood 04/02/2023 11:0 0 AM EDT 04/02/2023 3:35 PM EDT Narrative Resulting Agency Comment Spec In Lab Britt Zurita MD LAB SEND OUT ORDERA BLES Performing Organization Address [facility]/ZIP Co de Phone Number [facility] [place] [address] * (ABNORMAL) Rheumatoid factor, quant (04/02/2023 11:00 AM EDT) Rheumatoid Factor 17(H) <=14 IU/mL [facility] Blood 04/02/2023 11:0 0 AM EDT 04/02/2023 11:06 AM EDT Narrative Resulting Agency Comment Spec In Lab Britt Zurita MD CHEMISTRY ORDERABLE S Performing Organization Address [facility] Co de Phone Number [facility] [place] [address] * Beta-2 glycoprotein antibodies (04/02/2023 11:00 AM EDT) Beta 2 Glycoprotein, IgG <0.8 <=6.9 unit/mL [facility] Beta 2 Glycoprotein, IgM <2.4 <=6.9 unit/mL [facility] Blood 04/02/2023 11:0 0 AM EDT 04/02/2023 12:52 PM EDT Narrative Resulting Agency Comment Spec In Lab Britt Zurita MD IMMUNOLOGY ORDERABL ES Performing Organization Address [facility] Co de Phone Number [facility] [place] [address] * Cardiolipin Antibody Screen (04/02/2023 11:00 AM EDT) Cardiolipin Antibody IgG <0.5 <=9.9 GPL-U/mL [facility] Cardiolipin Antibody IgM 2.0 <=9.9 MPL-U/mL [facility] Blood 04/02/2023 11:0 0 AM EDT 04/02/2023 12:52 PM EDT Narrative Resulting Agency Comment Spec In Lab Britt Zurita MD IMMUNOLOGY ORDERABL ES Performing Organization Address [facility] Co de Phone Number [facility] [place] [address] * (ABNORMAL) CRP, acute inflammation (04/02/2023 11:00 AM EDT) C-Reactive Protein 9.9(H) <=4.9 mg/L [facility] Blood 04/02/2023 11:0 0 AM EDT 04/02/2023 11:06 AM EDT Narrative Resulting Agency Comment Spec In Lab Britt Zurita MD CHEMISTRY ORDERABLE S Performing Organization Address [facility] Co de Phone Number [facility] [place] [address] * Sedimentation rate (04/02/2023 11:00 AM EDT) Sedimentation Rate Automated 32 2 - 37 mm/hr [facility] Comment: Effective October 12, 2019 new capillary photometric technology has resulted in a change in reference ranges. It is recommended that each ESR result be reviewed with its own age appropriate reference range. Blood 04/02/2023 11:0 0 AM EDT 04/02/2023 11:06 AM EDT Narrative Resulting Agency Comment Spec In Lab Britt Zurita MD HEMATOLOGY ORDERABL ES Performing Organization Address [facility] Co de Phone Number [facility] [place] [address] * (ABNORMAL) C4 Complement (04/02/2023 11:00 AM EDT) Complement C4 45(H) 10 - 40 mg/dL [facility] Blood 04/02/2023 11:0 0 AM EDT 04/02/2023 11:06 AM EDT Narrative Resulting Agency Comment Spec In Lab Britt Zurita MD CHEMISTRY ORDERABLE S Performing Organization Address [facility] Co de Phone Number [facility] [place] [address] * C3 Complement (04/02/2023 11:00 AM EDT) Complement C3 168 90 - 180 mg/dL [facility] Blood 04/02/2023 11:0 0 AM EDT 04/02/2023 11:06 AM EDT Narrative Resulting Agency Comment Spec In Lab Britt Zurita MD CHEMISTRY ORDERABLE S [facility] [place] [address] * Comprehensive metabolic panel (non-fasting) (04/02/2023 11:00 AM EDT) Glucose 95 65 - 199 mg/dL [facility] Comment:Diabetes: >=200 mg/d L plus symptoms Blood Urea Nitrogen 12 8 - 18 mg/dL [facility] Creatinine 0.93 0.70 - 1.20 mg/dL [facility] Sodium 138 135 - 145 mmol/L [facility] Potassium 3.8 3.5 - 5.0 mmol/L [facility] Comment: Please note: ??Patients with WBC >100,000 may have falsely elevated Potassium levels. ??For accurate Potassium quantification in these patients send serum separator tube (gold top) for subsequent determinations. ??Contact the Clinical Chemistry Laboratory if there are any questions. Chloride 101 98 - 107 mmol/L [facility] Carbon Dioxide 27 22 - 31 mmol/L [facility] Anion Gap 10 5 - 15 mmol/L [facility] Calcium 9.6 8.5 - 10.5 mg/dL [facility] Protein, Total 7.5 6.1 - 8.0 g/dL [facility] Albumin 4.7 3.2 - 5.2 g/dL [facility] Aspartate Aminotransferase 19 0 - 30 unit/L [facility] Alanine Aminotransferase 16 0 - 30 unit/L [facility] Alkaline Phosphatase 57 35 - 105 unit/L [facility] Bilirubin, Total 0.4 0.2 - 1.3 mg/dL [facility] Est Glomerular Filtration Rate 79 >=60 mL/min/1. 73 m?? [facility] Comment: This patient's estimated GFR [...] MD CHEMISTRY ORDERABLE S Performing Organization Address City/State/[facility] Co de Phone Number [facility] [place] [address] * (ABNORMAL) LIZZIE Ab by IFA (04/02/2023 11:00 AM EDT) LIZZIE Ab Screen Test ?Result ? Flag ??Unit ??RefValue Antinuclear Ab, HEp-2 Substrate, ?Positive 1:320 ??@ ?<1:80 (Negative) ??S ? ADDITIONAL INFORMATION --------- ?Method: Immunofluorescence using HEp-2 cellular substrate. ??LIZZIE Titer: ?1:320 ??LIZZIE Pattern: ?Dense Fine Speckled ?Test Performed by: ?[facility] ?[address] [place] [address] ?Hooker Machine Tender: Vimal Torrez M.D. Ph.D.; CLIA# [id number] ([id number]) [facility] Blood 04/02/2023 11:0 0 AM EDT 04/02/2023 3:35 PM EDT Narrative Resulting Agency Comment Spec In Lab Britt Zurita MD CHEMISTRY ORDERABLE S [facility] [address] [facility] [place] [address] * Extractable Nuclear Antigen (ROMARIO) Ab (04/02/2023 11:00 AM EDT) SS-A/Ro Ab <0.40 <=10.00 unit/mL [facility] Comment: <7 negative 7-10 equivocal >10 positive The SS-A antibody result was generated using fluoroenzyme immunoassay on the Phadia 250 analyzer. the semi-quantitative test is designed to detect IgG antibodies in human serum that are reactive to the SS-A (Ro) protein. Please note that as of 08/26/2022 that this testing is performed by the [facility] at [facility]. This change in testing location is associated with a change in testing method and reference intervals. Please review the results of this test in association with the posted reference intervals. SS-B/La Ab <0.40 <=10.00 unit/mL [facility] Comment: <7 negative 7-10 equivocal >10 positive The SS-B antibody result was generated using fluoroenzyme immunoassay on the Phadia 250 analyzer. the semi-quantitative test is designed to detect IgG antibodies in human serum that are reactive to the SS-B (La) protein. Please note that as of 08/26/2022 that this testing is performed by the [facility] at [facility]. This change in testing location is associated with a change in testing method and reference intervals. Please review the results of this test in association with the posted reference intervals. Scl-70 Ab <0.60 <=10.00 unit/mL [facility] Comment: <7 negative 7-10 equivocal >10 positive The Scl-70 antibody result was generated using fluoroenzyme immunoassay on the Phadia 250 analyzer. the semi-quantitative test is designed to detect IgG antibodies in human serum that are reactive to the Scl-70 protein. Please note that as of 08/26/2022 that this testing is performed by the [facility] Laboratory at [facility]. This change in testing location is associated with a change in testing method and reference intervals. Please review the results of this test in association with the posted reference intervals. Sm (Bowen) Ab 0.90 <=10.00 unit/mL [facility] Comment: <7 negative 7-10 equivocal >10 positive The Sm antibody result was generated using fluoroenzyme immunoassay on the Phadia 250 analyzer. the semi-quantitative test is designed to detect IgG antibodies in human serum that are reactive to the Sm protein. Please note that as of 08/26/2022 that this testing is performed by the [facility] at [facility]. This change in testing location is associated with a change in testing method and reference intervals. Please review the results of this test in association with the posted reference intervals. U1RNP Ab <0.50 <=10.00 unit/mL [facility] Comment: <5 negative 5-10 equivocal >10 positive The U1RNP antibody result was generated using fluoroenzyme immunoassay on the Phadia 250 analyzer. the semi-quantitative test is designed to detect IgG antibodies in human serum that are reactive to the U1RNP protein. Please note that as of 08/26/2022 that this testing is performed by the [facility] at [facility]. This change in testing location is associated with a change in testing method and reference intervals. Please review the results of this test in association with the posted reference intervals. Centromere Ab <0.40 <=10.00 unit/mL [facility] Comment: <7 negative 7-10 equivocal >10 positive The CENP antibody result was generated using fluoroenzyme immunoassay on the Phadia 250 analyzer. the semi-quantitative test is designed to detect IgG antibodies in human serum that are reactive to the Centromere B protein. Please note that as of 08/26/2022 that this testing is performed by the [facility] Laboratory at [facility]. This change in testing location is associated with a change in testing method and reference intervals. Please review the results of this test in association with the posted reference intervals. Mandi-1 Ab <0.30 <=10.00 unit/mL [facility] Comment: <7 negative 7-10 equivocal >10 positive The Madni-1 antibody result was generated using fluoroenzyme immunoassay on the Phadia 250 analyzer. the semi-quantitative test is designed to detect IgG antibodies in human serum that are reactive to the Mandi-1 protein. Please note that as of 08/26/2022 that this testing is performed by the [facility] Laboratory at [facility]. This change in testing location is associated with a change in testing method and reference intervals. Please review the results of this test in association with the posted reference intervals. Blood 04/02/2023 11:0 0 AM EDT 04/02/2023 12:52 PM EDT Narrative Resulting Agency Comment Spec In Lab Britt Zurita MD LAB SEND OUT [address] [place] [address] * DNA Antibody (Double-Stranded) (04/02/2023 11:00 AM EDT) dsDNA Ab <0.6 <=15.0 IU/mL [facility] Comment: <10 negative 10-15 equivocal >15 positive This dsDNA antibody result was generated using a fluoroenzyme immunoassay on the Phadia 250 analyzer. This quantitative test is designed to detect IgG antibodies directed against double stranded DNA in human serum. The presence of antibodies that recognize dsDNA is a highly specific marker for systemic lupus erythematosus. Please note that as of 08/26/2022 that this testing is performed by the [facility] at [facility]. This change in testing location is associated with a change is testing method and reference intervals. Please review the results of this test in association with the posted reference intervals. Blood 04/02/2023 11:0 0 AM EDT 04/02/2023 12:52 PM EDT Narrative Resulting Agency Comment Spec In Lab Britt Zurita MD LAB SEND OUT [address] [facility] [facility] [place] [address] documented in this encounter Visit Diagnoses Diagnosis Polyarthralgia Pain in joint, multiple sites documented in this encounter Care Teams Shells Inspector Relationship Specialty Start Date End Date Anuja Cai APRN [address] [place] [address] PCP - General Internal Medicine 07/25/21 documented as of this encounter
--- OUTSIDE RECORDS SUMMARY | 2024-06-10 18:50 | XMS_ITS | Encounter Summary ---
[place] [address] Care Team Providers Care Material Mixer Name Role Phone TrellAnuja APRN Primary Care Provider [phone] Encounter Details Date Type Department Care Team (Late Contact Info) Description 11/28/2021 Telephone [place] [phone] Ranjana Auguste CMA GASTROENTEROLOGY DEPT Social History Tobacco Use Types Packs/Day Years [...] encounter Miscellaneous Notes * Telephone Encounter - Ranjana Auguste CMA - 11/28/2021 8:13 AM EST Called patient to review medications and allergies for their upcoming gastroenterology Type of Appointment: Telehealth appointment. Reach Patient during MA Check: No, Left Message Notes for the provider: Notes for the nurse: documented in this encounter Plan of Treatment Upcoming Encounters Date Type Department Care Team (Late Contact Info) Description 08/17/2024 12:00 PM EDT Office [place] [address] [facility] [place] [address] documented as of this encounter Visit Diagnoses Not on filedocumented in this encounter Care Teams Material Mixer Relationship Specialty Start Date End Date Anuja Cai APRN [address] [place] [address] PCP - General Internal Medicine 07/25/21 documented as of this encounter
--- OUTSIDE RECORDS SUMMARY | 2024-06-10 18:50 | XMS_ITS | Encounter Summary ---
Author Organization [facility] [place] [address] Care Team Providers Care Publications Manager Name Role Phone Anuja Cai APRN Primary Care Provider [phone] Encounter Details Date Type Department Care Team (Late st Contact Info) Description 12/24/2022 Ancillary Procedure [place] [phone] Anuja Cai APRN [address] [place] [phone] Social History Tobacco Use Types Packs/Day Years [...] 12:00 PM EDT Office [place] [phone] Britt Zurita MD [facility] [address] [place], [place] [id number] documented as of this encounter Procedures Procedure Name Priority Date/Time Associated Diagnosis Comments FILM LIBRARY STORAGE ONLY MR KNEE Routine 12/24/2022 12:00 AM EST documented in this encounter Results * Film Library- Storage Only MR Knee (12/24/2022 12:00 AM EST) Narrative [facility] - 02/02/2023 10:14 PM EDT This exam is auto-finalizing. It's purpose is for storage only. Anuja Cai APRN Fanny FILM LIBRARY ORD ERABLES Performing Organization Address City/State/[facility] Co de Phone Number [place], [place] documented in this encounter Visit Diagnoses Not on filedocumented in this encounter Care Teams Publications Manager Relationship Specialty Start Date End Date Anuja Cai APRN [address] [place] [address] PCP - General Internal Medicine 07/25/21 documented as of this encounter
--- OUTSIDE RECORDS SUMMARY | 2024-06-10 18:50 | XMS_ITS | Encounter Summary ---
Author Organization [facility] Address [facility] [place] [address] Care Team Providers Care Business Development Director Name Role Phone Unavailable Primary Care Provider Unavailabl e Reason for Visit * Reason Comments Establish Care Encounter Details Date Type Department Care Team ([facility] st Contact Info) Description 03/22/2013 1:50 PM EDT Office Visit Internal Medicine at [facility] [address] [place] [phone] Liya Richardson APRN [facility] [place] [address] ENCOUNTER TO ESTABLISH CARE (Primary Dx) Discharge Disposition: Home Social History Tobacco Use Types Packs/Day Years Used Date Smoking Tobacco: Every Day Cigarettes Tobacco Cessation:Ready to Q uit: No Alcohol Use Standard Drinks/Week Comments Yes 6 [...] Sign Reading Time Taken Comments Blood Pressure 119/74 03/22/2013 1:56 PM EDT Pulse 70 03/22/2013 1:56 PM EDT Temperature 36.8 ??C (98.2 ??F) 03/22/2013 1:56 PM ED T Respiratory Rate 12 03/22/2013 1:56 PM EDT Oxygen Saturation 99% 03/22/2013 1:56 PM EDT Inhaled Oxygen Concentration - - Weight 71.6 kg (157 lb 12.8 oz) 03/22/2013 1:56 PM EDT Height 167.5 cm (5' 5.95) 03/22/2013 1:56 PM ED T Body Mass Index 25.51 03/22/2013 1:56 PM EDT documented in this encounter Progress Notes * Liya Richardson APRN - 03/22/2013 2:04 PM EDT PCP: LIYA RICHARDSON APRN SUBJECTIVE: 32 y.o. female presents to [facility]. She just moved down here from [facility]. She is working in [employer], same position. 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 She reports that she had requested records from [facility] back in November. She has complicated medical history of chronic pain,fatigue and night sweats. 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 She states that even with treatment her chronic symptoms have not resolved. She denies any depression, she reports just feeling irritable because she does not feel well. The muscle and joint pain has gotten worse. She is having increased hand joint pain at night as well. She has GERD, chronic abdominal pain with fluctuations between diarrhea and constipation. She also feels bloated at times. She states that she was referred to GI specialist when she was in [place], but moved before she had appt. She is interested in seeing a GI specialist in this area instead. She was recently seen in the ER for strep throat- her eighth diagnosis and has referral to ENT soonfor this. Abdominal pain, fluctuates diarrhea/constipation. Bloating; Chest pain is concern- worse with fatigue. History Smoking status ??? Current Everyday Smoker -- 1.0 packs/day Smokeless tobacco ??? Not on file -not interested in discussing quitting at this time. Pertinent findings to emphasize are: myD-H Primary Care 03/22/2013 PROMIS 10-Quality of life Fair PROMIS 10-Physical health Fair PROMIS 10-Mental health Good PROMIS 10-Satisfaction with social activities Very Good PROMIS 10-Ability to carry out social activities Very Good PROMIS 10-Ability to carry out physical activities Moderately PROMIS 10-Bothered by emotional problems Sometimes PROMIS 10-Rate of fatigue Severe PROMIS 10-Rate of pain 4 PROMIS 10- Physical Health Score 34.9 PROMIS 10- Mental Health Score 43.5 PHQ-9 Depression 11 (Moderate Depression) Audit Subscores 4 (Low Risk) Review of Systems: REVIEW OF SYSTEMS 03/22/2013 Constitutional Weakness, Fatigue, lack of energy, Hot flashes, Drowsiness, Pain Ear / nose / throat / mouth Difficulty swallowing, Sore throat Eyes Blurry vision, double vision (vision impairment), Dry eyes Respiratory None of the above Cardiovascular Chest pain Gastrointestinal Heartburn, indigestion, Constipation, Diarrhea, Abdominal pain, Feeling bloated Skin, hair Dry skin, Itching, Sweats Musculoskeletal Joint stiffness, Back pain, Joint pain, Muscle stiffness Hematologic / Lymphatic Easy bruising or bleeding, Sore or swollen lymph nodes, glands, Night sweats Psychiatric Memory loss, forgetfulness, confusion, Anxiety, worry, Difficulty concentrating, Difficulty sleeping, Feeling irritable, Easily distracted Genitourinary Other urinary or genital symptoms Sexual Activity: PRIMARY CARE Q - SEXUAL ACTIVITY 03/22/2013 Menstruating Yes Sexually Active Yes Sexual Orientation One man control use No Why not using control Other reason Sexual Concerns No Drug Use: PRIMARY CARE Q - DRUG USE 03/22/2013 Drug Use I experimented with such drugs in the past There is no problem list on file for this patient. Current Outpatient Prescriptions Medication Sig Dispense Refill ??? levothyroxine (SYNTHROID) 88 mcg tablet Take 88 mcg by mouth daily. ??? omeprazole (PRILOSEC) 20 mg capsule Take 40 mg by mouth daily. ??? DISCONTD: OXYcodone (ROXICODONE) 5 mg/5 mL solution Take 5-10 mLs by mouth every 4 hours as needed for Pain. 150 mL 0 ??? DISCONTD: azithromycin (ZITHROMAX) 250 mg tablet Take 2 tablets on the first day, then 1 tableteach day for the next 4 days 6 tablet 0 No Known Allergies Physical Exam: Filed Vitals: 03/22/13 1356 BP: 119/74 Pulse: 70 Temp: 36.8 ??C (98.2 ??F) TempSrc: Oral Resp: 12 Height: 167.5 cm (5' 5.95) Weight: 71.578 kg (157 lb 12.8 oz) SpO2: 99% General: alert, oriented, no acute distress ENT: TMs normal. No sinus tenderness. Nasal mucosa pink and moist. Pharynx without erythema, exudate, or enlarged tonsils. NECK: soft and supple, no lymphadenopathy. Heart: RRR S1S2 nl, no murmurs, no pretibial edema LUNGS: CTA bilat, no crackles or wheezes ABDOMEN: nl bowel sounds, soft, non-tender, non-distended, no masses, no organomegaly. MSK: ROM/strength equal and nl x 4 extremities NEURO: CN II-XII grossly intact. DTR's 2+/4+, symmetrical; strength nl x 4 extremities. Gait nl. Assessment/Plan: Teri was seen today for establish care. Diagnoses and associated orders for this visit: ESTABLISH CARE APPOINTMENT - Refilled RX: omeprazole (PRILOSEC) 40 mg capsule; Take 1 capsule by mouth daily. - patient to follow up in few weeks regarding joint pain, fatigue and sweats - Patient to fill out forms to request records be sent to the office - Patient to follow up with ENT - will discuss further evaluation of chronic problems once have had ability to review previous tests and findings. Patient aware of plan and in agreement with plan documented in this encounter Plan of Treatment Upcoming Encounters Date Type Department Care Team (Late st Contact Info) Description 08/17/2024 12:00 PM EDT Office [place] [address] Britt Zurita MD [facility] [address] documented as of this encounter Visit Diagnoses Diagnosis Encounter to establish care- Primary Other reasons for seeking consultation documented in this encounter
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
--- OUTSIDE RECORDS SUMMARY | 2024-06-10 18:50 | XMS_ITS | Encounter Summary ---
Author Organization [facility] Address [facility] [place] [address] Care Team Providers Care Privacy Officer Name Role Phone Anuja Cai APRN Primary Care Provider [phone] Encounter Details Date Type Department Care Team (Latest Contact Info) Description 09/30/2021 12:02 PM EST - 09/30/2021 2:41 PM EST Hospital Encounter [place] [address] Guilherme Rock MD [facility] [place] [address] Discharge Disposition: Home Social History Tobacco Use [...] Sign Reading Time Taken Comments Blood Pressure 136/92 09/30/2021 2:20 PM EST Pulse 75 09/30/2021 1:45 PM EST Temperature 36.4 ??C (97.5 ??F) 09/30/2021 12:[address] Respiratory Rate 18 09/30/2021 2:20 PM EST Oxygen Saturation 100% 09/30/2021 2:20 PM EST Inhaled Oxygen Concentration - - Weight - - Height - - Body Mass Index - - documented in this encounter Discharge Instructions * Discharge Instructions* Yair Rushing, RN - 09/30/2021 1:59 PM EST Upper GI Endoscopy: What to Expect at Home Your Recovery You will be able to go home after your doctor or nurse checks to make sure you are not having any problems. You may have to stay overnight if you had treatment during the test. You may have a sore throat fora day or two after the test. This care sheet gives you a general idea about what to expect after the test. How can you care for yourself at home? Activity Rest when you feel tired. ?? You can do your normal activities when it feels okay to do so. Diet ?? Follow your doctor's directions for eating. ?? Unless your doctor has told you not to, drink plenty of fluids. This helps to replace the fluidsthat were lost during the prep. ?? Do not drink alcohol. Medicines ?? Your doctor will tell you if and when you can restart your medicines. He or she will also give you instructions about taking any new medicines. ?? If you take blood thinners, such as warfarin (Coumadin), clopidogrel (Plavix), or aspirin, be sure to talk to your doctor. He or she will tell you if and when to start taking those medicines again. Make sure that you understand exactly what your doctor wants you to do. ?? If polyps were removed or a biopsy was done during the test, your doctor may tell you not to take aspirin or other anti-inflammatory medicines for a few days. These include ibuprofen (Advil, Motrin) and naproxen (Aleve). ?? If you have a sore throat the day after the procedure, use an vtou-tua-chcvcft spray to numb your throat. Sucking on throat lozenges and gargling with warm salt water may also help relieve your symptoms. Other instructions ?? For your safety, do not drive or operate machinery until the medicine wears off and you can think clearly. Your doctor may tell you not to drive or operate machinery until the day after your test. ?? Do not sign legal documents or make major decisions until the medicine wears off and you can think clearly. The anesthesia can make it hard for you to fully understand what you are agreeing to. Additional Information for Sedation Patients For patients who received sedation: ?? You may have received medications before and/or during your procedure which effects your judgement and reaction time. ?? Do not drive, operate machinery, drink alcoholic beverages or make important decisions for 24 hours. ?? Be careful on stairs as you may be unsteady on your feet. ?? You may eat a regular diet as tolerated. ?? Do not smoke if you are alone. ?? IV site: Slight redness or tenderness is normal, you can use a warm compress if you would like. If tenderness and/or redness increase or if foul drainage occurs, please contact your Doctor. Please call [phone] before 8pm Mon-Fri with problems, questions or concerns. If you call after 8pm or on weekends, call the Hospital at [phone] and ask to speak to the Senior Manager [employer] aboriginal education worker coordinator and the boring mill set up operator vertical will contact that person for you. When should you call for help? Call [phone] anytime you think you may need emergency care. For example, call if: ?? You passed out (lost consciousness). ?? You pass maroon or bloody stools. ?? You have trouble breathing. Call your doctor now or seek immediate medical care if: ?? You have pain that does not get better after you take pain medicine. ?? You are sick to your stomach or cannot drink fluids. ?? You have new or worse belly pain. ?? You have blood in your stools. ?? You have a fever. ?? You cannot pass stools or gas. Watch closely for changes in your health, and be sure to contact your doctor if you have any problems. Where can you learn more? [facility] View your After Visit Summary and more online at [email or web address] If you would like to provide feedback about your hospital experience, please call the Office of Patient and Family Relations at . If you have received this After Visit Summary in error, please immediately return it in person to the department, or notify the [facility] Privacy Office by calling toll free at between the hours of 8AM and 5PM to arrange for our retrieval of the documents at no cost to you. Content Version: 12.2 ?? 3061-5953 [employer]. Care instructions adapted under license by [facility]. If you have questions about a medical condition or this instruction, always ask your healthcare professional. [employer] disclaims any warranty or liability for your use of this information. Colonoscopy: What to Expect at Home Your Recovery Your doctor will talk to you about when you will need your next colonoscopy. Your doctor can help you decide how often you need to be checked. This will depend on the results of your test and your risk for colorectal cancer. After the test, you may be bloated or have gas pains. You may need to pass gas. If a biopsy was done or a polyp was removed, you may have streaks of blood in your stool (feces) for a few days. Problems such as heavy rectal bleeding may not occur until several weeks after the test. This isn't common. But it can happen after polyps are removed. This care sheet gives you a general idea about how long it will take for you to recover. But each person recovers at a different pace. Follow the steps below to get better as quickly as possible. How can you care for yourself at home? Activity Rest when you feel tired. ?? You can do your normal activities when it feels okay to do so. Diet ?? Follow your doctor's directions for eating. ?? Unless your doctor has told you not to, drink plenty of fluids. This helps to replace the fluidsthat were lost during the colon prep. ?? Do not drink alcohol. Medicines ?? Your doctor will tell you if and when you can restart your medicines. He or she will also give you instructions about taking any new medicines. ?? If you take blood thinners, such as warfarin (Coumadin), clopidogrel (Plavix), or aspirin, be sure to talk to your doctor. He or she will tell you if and when to start taking those medicines again. Make sure that you understand exactly what your doctor wants you to do. ?? If polyps were removed or a biopsy was done during the test, your doctor may tell you not to take aspirin or other anti-inflammatory medicines for a few days. These include ibuprofen (Advil, Motrin) and naproxen (Aleve). Other instructions ?? For your safety, do not drive or operate machinery until the medicine wears off and you can think clearly. Your doctor may tell you not to drive or operate machinery until the day after your test. ?? Do not sign legal documents or make major decisions until the medicine wears off and you can think clearly. The anesthesia can make it hard for you to fully understand what you are agreeing to. Additional Information for Sedation Patients For patients who received sedation: ?? You may have received medications before and/or during your procedure which effects your judgement and reaction time. ?? Do not drive, operate machinery, drink alcoholic beverages or make important decisions for 24 hours. ?? Be careful on stairs as you may be unsteady on your feet. ?? You may eat a regular diet as tolerated. ?? Do not smoke if you are alone. ?? IV site: Slight redness or tenderness is normal, you can use a warm compress if you would like. If tenderness and/or redness increase or if foul drainage occurs, please contact your Doctor. Please call [phone] before 8pm Mon-Fri with problems, questions or concerns. If you call after 8pm or on weekends, call the Hospital at [phone] and ask to speak to the Senior Manager [employer] aboriginal education worker coordinator and the boring mill set up operator vertical will contact that person for you. When should you call for help? Call [phone] anytime you think you may need emergency care. For example, call if: ?? You passed out (lost consciousness). ?? You pass maroon or bloody stools. ?? You have trouble breathing. Call your doctor now or seek immediate medical care if: ?? You have pain that does not get better after you take pain medicine. ?? You are sick to your stomach or cannot drink fluids. ?? You have new or worse belly pain. ?? You have blood in your stools. ?? You have a fever. ?? You cannot pass stools or gas. Watch closely for changes in your health, and be sure to contact your doctor if you have any problems. Where can you learn more? [facility] View your After Visit Summary and more online at [email or web address] If you would like to provide feedback about your hospital experience, please call the Office of Patient and Family Relations at . If you have received this After Visit Summary in error, please immediately return it in person to the department, or notify the D- Privacy Office by calling toll free at between the hours of 8AM and 5PM to arrange for our retrieval of the documents at no cost to you. Content Version: 12.2 ?? [id number] [employer]. Care instructions adapted under license by [facility]. If you have questions about a medical condition or this instruction, always ask your healthcare professional. [employer] disclaims any warranty or liability for your use of this information. documented in this encounter Medications at Time of Discharge Medication Sig Dispensed Refills Start Date End Date acetaminophen (Tylenol) 325 mg tablet Take 650 mg by mouth every 6 hours as needed. 07/20/2014 levothyroxine (Synthroid) 112 mcg Tablet Take 112 mcg by mouth daily. Will take 125 mcg after today 02/16/24 07/29/2021 fluticasone propionate (Flonase) 50 mcg/actuation Colbert, Suspension SPRAY ONE SPRAY IN EACH NOSTRIL [...] 03/22/2013 04/02/2023 documented as of this encounter H&P Notes * Guilherme Rock MD - 09/30/2021 1:07 PM EST Gastroenterology and Hepatology Pre-Procedure History and Physical Exam Procedure: Colonoscopy: EGD Indication: GERD, diarrhea Patient Active Problem List Diagnosis Code ??? Peptic ulcer disease K27.9 ??? Hiatal hernia K44.9 ??? GERD (gastroesophageal reflux disease) K21.9 ??? Abnormal Pap smear of cervix R87.619 ??? History of stillbirth Z87.59 ??? 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 Abnormal Pap smear [id number] ??? 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 ASA 2 - Patient with mild systemic disease with no functional limitations Sedation Plan: moderate (conscious sedation) Risks and benefits of the procedure explained to the patient. Consent signed. documented in this encounter Plan of Treatment Upcoming Encounters Date Type Department Care Team (Late st Contact Info) Description 08/17/2024 12:00 PM EDT Office [place] [address] Britt Zurita MD [facility] [place] [address] documented as of this encounter Procedures Procedure Name Priority Date/Time Associated Diagnosis Comments SPECIMEN TO PATHOLOGY Routine 09/30/2021 1:46 PM EST SPECIMEN TO PATHOLOGY Routine 09/30/2021 1:25 PM EST SPECIMEN TO PATHOLOGY Routine 09/30/2021 1:25 PM EST SPECIMEN TO PATHOLOGY Routine 09/30/2021 1:25 PM EST SURGICAL PATHOLOGY REPORT Routine 09/30/2021 1:19 PM EST Colonoscopy, Diagnostic ([id number]) 09/30/2021 1:03 PM EST Colonoscopy with biopsies to rule out IBD/microscopic colitis EGD/Waters ON PPI Upper Gi Endoscopy, Biopsy ([id number]) 09/30/2021 1:03 PM EST Colonoscopy with biopsies to rule out IBD/microscopic colitis EGD/Waters ON PPI UPPER GI ENDOSCOPY Routine 09/30/2021 12 :19 PM EST COLONOSCOPY Routine 09/30/2021 12:18 PM EST documented in this encounter Results * Specimen to Pathology (09/30/2021 1:46 PM EST) AP Specimen 09/30/2021 1:46 PM EST 09/30/2021 1:46 PM EST Narrative [facility] - 09/30/2021 1:46 PM EST Specimen requisition ordered. ??Separate Pathology report to follow Guilherme Rock MD PATHOLOGY/CYTOLOGY O RDERAVENICE [facility] [place] [address] * Specimen to Pathology (09/30/2021 1:25 PM EST) AP Specimen 09/30/2021 1:25 PM EST 09/30/2021 1:25 PM EST Narrative [facility] - 09/30/2021 1:25 PM EST Specimen requisition ordered. ??Separate Pathology report to follow Guilherme Rock MD PATHOLOGY/CYTOLOGY O LAZ Performing Organization Address [facility] [place] [address] * Specimen to Pathology (09/30/2021 1:25 PM EST) AP Specimen 09/30/2021 1:25 PM EST 09/30/2021 1:25 PM EST Narrative [facility] - 09/30/2021 1:25 PM EST Specimen requisition ordered. ??Separate Pathology report to follow Guilherme Rock MD PATHOLOGY/CYTOLOGY O LAZ Performing Organization Address [facility] [place] [address] * Specimen to Pathology (09/30/2021 1:25 PM EST) AP Specimen 09/30/2021 1:25 PM EST 09/30/2021 1:25 PM EST Narrative [facility] - 09/30/2021 1:25 PM EST Specimen requisition ordered. ??Separate Pathology report to follow Guilherme Rock MD PATHOLOGY/CYTOLOGY O LAZ Performing Organization Address [facility] [place] [address] * Surgical Pathology Report (09/30/2021 1:19 PM EST) Final Diagnosis [id number] ? Location: 4T; EA07; A The signing pathologist has (i) examined the relevant preparation(s) for the specimen(s) and (ii) rendered or confirmed the diagnosis(es). . ?Surgical Pathology DIAGNOSIS A - Duodenum, biopsy: - ??Duodenal mucosa within normal limits, including preserved villous architecture. B - Stomach, biopsy: - ??Gastric antral gland mucosa with nonspecific reactive gastropathy. - ??Body/fundic-t ype mucosa with parietal cell hyperplasia consistent with PPI effect. - H. pylori organisms are not seen. C - Esophagus, biopsy: - ??Esophageal squamous mucosa, negative for diagnostic abnormality. D - Random colon, biopsy: - Colonic mucosa, negative for diagnostic abnormality. Electronically signed by: ?Asuncion BOYER PhD, Mary Carmen Verified: ??10/07/2021 13:51 ??Pathologist Performed at: ??-[facility] Dept. of Pathology, [place], [place] SPECIMEN(S) SUBMITTED A - Duodenum R/O Celiac, biopsy (Multiple) B - Stomach R/O H. pylori, biopsy (Multiple) C - Esophagus R/O EoE, biopsy (Multiple) D - Random colon R/O microscopic colitis, biopsy (Multiple) CLINICAL INFORMATION 41-year-old female with loose stools and GERD symptoms SPECIMEN PROCESSING A - Labeled/Fixativ e: Duodenum, rule out celiac, formalin. Quantity/Size: Five, averaging 0.4 cm. Tissue Description: Soft, pink tissues. Sections/Proces sing: Submitted en toto ??in 1 cassette labeled A1. B - Labeled/Fixativ e: Stomach, rule out H. pylori, formalin. Quantity/Size: Three, ranging from 0.2-0.5 cm. Tissue Description: Soft, pink tissues. Sections/Proces sing: Submitted en toto ??in 1 cassette labeled B1. C - Labeled/Fixativ e: Esophagus, rule out EOE, formalin. Quantity/Size: Three, averaging 0.4 cm. Tissue Description: Soft, pink-white tissues. Sections/Proces sing: Submitted en toto ??in 1 cassette labeled C1. D - Labeled/Fixativ e: Random colon, rule out microscopic colitis, formalin. Quantity/Size: Multiple, ranging from 0.1-0.5 cm. Tissue Description: Soft, pink-red tissues. Sections/Proces sing: . SPECIMEN PROCESSING Submitted en toto ??in 3 cassettes labeled D1-D3. ??sns 10/07/2021 1:51 PM EST [facility] GI Biopsy 09/30/2021 1:19 PM EST 09/30/2021 1:19 PM EST GI Biopsy 09/30/2021 1:19 PM EST 09/30/2021 1:19 PM EST GI Biopsy 09/30/2021 1:19 PM EST 09/30/2021 1:19 PM EST GI Biopsy 09/30/2021 1:19 PM EST 09/30/2021 1:19 PM EST Guilherme Rock MD PATHOLOGY/CYTOLOGY O RDERAVENICE [facility] [place] [address] * UPPER GI ENDOSCOPY (09/30/2021 12:19 PM EST) UPPER GI ENDOSCOPY [facility] Endoscopy Procedure Date: 09/30/2021 12:19 PM ? Patient Name: Teri Smith ? Date of : 1980 ? Age: 41 ? Order #: [id number] ? Instrument Name: [id number] ? Procedure: ? Upper GI endoscopy Indications: ? Dyspepsia, GERD on PPI, diarrhea. For ? Waters on meds Providers: ? Guilherme Rock MD, Julio Mayes, ? JANNA, Francois Sandhu Referring : ?Carla Parker Medicines: ? Midazolam 4 mg IV, Fentanyl 150 ? micrograms IV Complications: ? No immediate complications. Procedure: ? The procedure, indications, benefits, ? risks and alternatives were explained ? to the patient. Specifically ? discussed were potential ? complications including, but not ? limited to, bleeding, perforation, ? infection, missing a cancer, and ? adverse medication reactions. The ? Endoscope was introduced through the ? mouth, and advanced to the third part ? of duodenum. The patient tolerated ? the procedure well. The upper GI ? endoscopy was accomplished without ? difficulty. The patient tolerated the ? procedure well. ? Findings: ? The examined esophagus was normal. Biopsies were ? taken with a cold forceps for histology. ? The Z-line was regular and was found 36 cm from the ? incisors. ? A medium-sized hiatal hernia was present from 36-40 ? cm. ? The GE junction was patulous ? The entire examined stomach was normal. Biopsies were ? taken with a cold forceps for Helicobacter pylori ? testing. ? A few small sessile fundic gland type polyps were ? found in the gastric fundus and in the gastric body. ? The examined duodenum was normal. Biopsies were taken ? with a cold forceps for histology. ? Waters capsule placed and positron confirmed ? endoscopically ? Moderate Sedation: ? I was present during the intraservice time as ? documented by the sedation RN. Impression: ?- Normal esophagus. Biopsied. ? - Z-line regular, 36 cm from the ? incisors. ? - Medium-sized hiatal hernia. ? - Normal stomach. Biopsied. ? - A few gastric polyps. ? - Normal examined duodenum. Biopsied. Recommendation: ?- Await pathology results. ? Attending Participation: ? I personally performed the entire procedure. ? _ Guilherme Rock MD 09/30/2021 1:31:19 PM This report has been signed electronically. Number of Addenda: 0 Note Initiated On: 09/30/2021 12:19 PM [employer]ATION 09/30/2021 12:1 9 PM EST Anuja Cai APRN GENERAL SURGICAL ORD ERABLES [employer]ATION * COLONOSCOPY (09/30/2021 12:18 PM EST) COLONOSCOPY [facility] Endoscopy ___ Procedure Date: 09/30/2021 12:18 PM ? Patient Name: Teri Smith ? Date of : 1980 ? Age: 41 ? Order #: [id number] ? Instrument Name: [id number] ? ___ Procedure: ? Colonoscopy Indications: ? Diarrhea Providers: ? Guilherme Rock MD, Julio Mayes, ? RN, Francois Nunez MD: ?Carla Parker Medicines: ? Midazolam 2 mg IV, Fentanyl 100 ? micrograms IV, Diphenhydramine 50 mg ? IV Complications: ? No immediate complications. ___ Procedure: ? The procedure, indications, benefits, ? risks and alternatives were explained ? to the patient. Specifically ? discussed were potential ? complications including, but not ? limited to, bleeding, perforation, ? infection, missing a cancer, and ? adverse medication reactions. The ? patient was placed in the left ? lateral decubitus position, and a ? digital rectal exam was performed. ? The Colonoscope was inserted in the ? anus and under direct visualization, ? advanced to 6 cm into the ileum. ? Careful inspection was made as the ? colonoscope was withdrawn. The ? colonoscopy was performed without ? difficulty. The patient tolerated the ? procedure well. The quality of the ? bowel preparation was evaluated using ? the BBPS (Thorp Bowel Preparation ? Scale) with scores of: Right Colon = ? 3, Transverse Colon = 3 and Left ? Colon = 3 (entire mucosa seen well ? with no residual staining, small ? fragments of stool or opaque liquid). ? The total BBPS score equals 9. Scope ? withdrawal time was 11 minutes. ? Findings: ? The perianal and digital rectal examinations were ? normal. ? The colon mucosa (entire examined portion) appeared ? normal. Biopsies for histology were taken with a cold ? forceps from the entire colon for evaluation of ? microscopic colitis. ? The terminal ileum appeared normal. ? Internal hemorrhoids were found during retroflexion. ? The hemorrhoids were medium-sized. ? Moderate Sedation: ? I was present during the intraservice time as ? documented by the sedation RN. Impression: ?- The entire examined colon is ? normal. Biopsied. ? - The examined portion of the ileum ? was normal. ? - Internal hemorrhoids. Recommendation: ?- Await pathology results. ? Attending Participation: ? I personally performed the entire procedure. ? Guilherme Rock MD 09/30/2021 1:50:24 PM This report has been signed electronically. Number of Addenda: 0 Note Initiated On: 09/30/2021 12:18 PM [employer]ATION 09/30/2021 12:1 8 PM EST Anjua Cai APRN GENERAL SURGICAL ORD ERABLES [employer]ATION documented in this encounter Visit Diagnoses Not on filedocumented in this encounter Active and Recently Administered Medications Times are shown in EST. PRN Medication Order 09/28/2021 09/29/2021 09/30/2021 benzocaine (Hurricane One) 20% spray (restricted to kervin-procedural use) (CANCELED) ONCE PRN, Starting on Thu09/30/21 at 1315, Until Thu09/30/21 at 1647, Intra-Operative (Intra-Procedure) 1315 (Given - Provid er: Julio Mayes RN) diphenhydrAMINE (Benadryl) (50 mg/mL) injection (CANCELED) ONCE PRN, Starting on Thu09/30/21 at 1336, Until Thu09/30/21 at 1647, Intra-Operative (Intra-Procedure), Routine 1330 (Given - Provid er: Julio Mayes RN)1336 (Given - Provider: Julio Mayes RN) fentaNYL (pf) (50 mcg/mL) multi-dose injection (CANCELED) ONCE PRN, Starting on Thu09/30/21 at 1312, Until Thu09/30/21 at 1647, Intra-Operative (Intra-Procedure), Routine 1312 (Given - Provid er: Julio Mayes RN)1315 (Given - Provider: Julio Mayes RN)1318 (Given - Provider: Julio Mayes RN)1330 (Given - Provider: Julio Mayes RN)1336 (Given - Provider: Julio Mayes RN) midazolam (pf) (Versed) (1 mg/mL) multi-dose injection (CANCELED) ONCE PRN, Starting on Thu09/30/21 at 1312, Until Thu09/30/21 at 1647, Intra-Operative (Intra-Procedure), Routine 1312 (Given - Provid er: Julio Mayes RN)1315 (Given - Provider: Julio Mayes RN)1318 (Given - Provider: Julio Mayes RN)1330 (Given - Provider: Julio Mayes RN)1336 (Given - Provider: Julio Mayes RN) documented in this encounter Additional Health Concerns Infection Onset Date Last Indicated Resolved Time Rule Out C. difficile 09/30/2021 09/29/20212020 12:58 PM EST documented as of this encounter Care Teams Privacy Officer Relationship Specialty Start Date End Date Anuja Cai APRN [address] [place] [address] PCP - General Internal Medicine 07/25/21 documented as of this encounter
--- OUTSIDE RECORDS SUMMARY | 2024-06-10 18:50 | XMS_ITS | Encounter Summary ---
Author Organization [facility] [place] [address] Care Team Providers Care Oil Well Directional Surveyor Name Role Phone Unavailable Primary Care Provider Unavailabl e Reason for Referral * Consultation (Routine) - Closed Specialty Diagnoses / Procedures Referred By Contmaya t Referred To Contact Obstetrics and Gynecology Diagnoses Abnormal Pap smear Liya Silva CNC TECHNICIAN [facility] [address] [place] [address] [facility] Economic Manager [address] [place] [phone] Referral ID Status Reason Start Date Expiration Date V isits Requested Visits Authorized [id number] Closed Consult, Test & Treat 04/25/2013 10/22/2013 1 1 Encounter Details Date Type Department Care Team (Late st Contact Info) Description 04/25/2013 Orders Only Internal Medicine at [facility] [address] [place] [address] Liya Silva [facility] [address] [place] [address] Abnormal Pap smear (Primary Dx); HPV in female Social History Tobacco Use Types Packs/Day Years [...] as of this encounter Progress Notes * Liya Silva APRN - 04/25/2013 7:59 AM EDT Patient's Pap Smear shows LSIL and HPV positive. Will refer to SANITARY ENGINEER for further evaluation. documented in this encounter Plan of Treatment Upcoming Encounters Date Type Department Care Team (Late st Contact Info) Description 08/17/2024 12:00 PM EDT Office [place] [address] Britt Zurita MD [facility] [place] [address] Scheduled Referrals Name Type Priority Associated Diagnoses Orde r Schedule Referral to Ob-Nursery School Attendant Outpatient Referral Routine Abnormal Pap smear Ordered: 04/25/2013 documented as of this encounter Visit Diagnoses Diagnosis Abnormal Pap smear- Primary Other nonspecific abnormal finding HPV in female Human papillomavirus in conditions classified elsewhere and of unspecified site documented in this encounter
--- OUTSIDE RECORDS SUMMARY | 2024-06-10 18:50 | XMS_ITS | Encounter Summary ---
Author Organization [facility] [place] [address] Care Team Providers Care House Moving Supervisor Name Role Phone Unavailable Primary Care Provider Unavailabl e Reason for Visit * Reason Comments Otalgia Encounter Details Date Type Department Care Team ([facility] st Contact Info) Description 04/20/2013 7:31 AM EDT - 04/20/2013 7:49 AM EDT Emergency [place] [address] Ilia Johnson MD [facility] [place] [address] Acute serous otitis media (Primary Dx) Discharge Disposition: Home Social [...] Sign Reading Time Taken Comments Blood Pressure 116/91 04/20/2013 7:38 AM EDT Pulse 78 04/20/2013 7:38 AM EDT Temperature 36.5 ??C (97.7 ??F) 04/20/2013 7:38 AM ED T Respiratory Rate 16 04/20/2013 7:38 AM EDT Oxygen Saturation 100% 04/20/2013 7:38 AM EDT Inhaled Oxygen Concentration - - Weight - - Height - - Body Mass Index - - documented in this encounter Discharge Instructions * Discharge Instructions* Ilia Johnson MD - 04/20/2013 7:42 AM EDT You should take decongestants such as sudafed as needed. Take the prescribed nasal spray for 3 daysonly. Follow-up with your primary care physician in 3-4 days if not improving. documented in this encounter Medications at Time of Discharge Medication Sig Dispensed Refills Start Date End Date oxymetazoline (AFRIN) 0.05 % nasal spray 2 sprays by Nasal route 2 times daily for 3 days. 30 mL 0 04/20/2013 04/23/2013 levothyroxine (SYNTHROID) 88 mcg tablet Take 1 tablet by mouth daily. 90 tablet 3 04/14/2013 04/02/2023 omeprazole (PRILOSEC) 40 mg capsule Take 1 capsule by mouth daily. 30 capsule 11 03/22/2013 04/02/2023 documented as of this encounter ED Notes * Ilia Johnson MD - 04/20/2013 10:59 AM EDT Chief Complaint Patient presents with ??? Otalgia HPI 33 y.o. female with history of hypothyroidism presents the emergency department today complaining of bilateral ear pain. She says she has had discomfort in her ear for the past 2-3 weeks. Viral in nature. She noticed decrease in her hearing bilaterally. She denies any drainage from the ear. Barry es any recent fevers or chills, though she did have some fevers at the beginning of her course of illness. She also had some nonproductive cough during the initial course of her illness as well. Thathas since resolved. She was seen in the emergency department 10 days ago, started on a course of amoxicillin, which he just completed. She has not noted any improvement. She was also seen her primarycare physician, who recommended followup, if no improvement. Once she completes the course of antibiotics. She has no other specific complaints. Patient Active Problem List Diagnoses Code ??? Peptic ulcer disease 533.90 ??? Hiatal hernia 553.3 ??? GERD (gastroesophageal reflux disease) 530.81 ??? Abnormal Pap smear of cervix 795.00 ??? History of stillbirth V23.5 ??? Hx of Mena thyroiditis V12.29 No Known Allergies Review of Systems Constitutional: Negative for fever and chills. HENT: Positive for ear pain. Negative for congestion, sore throat, rhinorrhea, postnasal drip and sinus pressure. Respiratory: Negative for cough and shortness of breath. Cardiovascular: Negative for chest pain and palpitations. Gastrointestinal: Negative for nausea, vomiting and abdominal pain. BP 116/91 Pulse 78 Temp(Src) 36.5 ??C (97.7 ??F) (Oral) Resp 16 SpO2 100% LMP 04/03/2013 Physical Exam Nursing note and vitals reviewed. Constitutional: She is oriented to person, place, and time. She appears well- developed and well-nourished. No distress. Well appearing female in no obvious distress HENT: Head: Normocephalic and atraumatic. Right Ear: External ear normal. Left Ear: External ear normal. Mouth/Throat: Oropharynx is clear and moist. Bilateral ear effusions. Minimal bulging. No pus obvious. No erythema. Neck: Normal range of motion. Neck supple. Cardiovascular: Normal rate, regular rhythm, normal heart sounds and intact distal pulses. Exam reveals no gallop and no friction rub. No murmur heard. Pulmonary/Chest: Effort normal and breath sounds normal. No respiratory distress. She has no wheezes. She has no rales. She exhibits no tenderness. Lymphadenopathy: She has no cervical adenopathy. Neurological: She is alert and oriented to person, place, and time. Skin: Skin is warm and dry. She is not diaphoretic. Procedures None MDM serous otitis. No evidence to suggest acute bacterial infection. I see no reason to add anothercourse of antibiotics. He'll likely be decongestant orally, and decongestant spray to open up the eustachian tubes. She was advised to followup with her primary care physician for improving. Next. Assessment: Bilateral serous otitis media. Plan: Discharge. Afrin spray twice a day x3 days. Oral decongestants [id number]. Followup with primary care physician if no improvement after 3-4 days. Ilia Johnson MD 04/20/13 1105 * Aspen Lujan RN - 04/20/2013 7:48 AM EDT Discharge instructions reviewed, she shows good comprehension. documented in this encounter Miscellaneous Notes * Discharge Summary - Provider, Scanning - 04/21/2013 9:06 AM EDT * Miscellaneous - Provider, Scanning - 04/20/2013 2:29 PM EDT * ED Triage - Aspen Lujan RN - 04/20/2013 7:39 AM EDT Patient was seen and treated for a bilateral ear infection about 10 days ago. She states her ears feel full and she has decreased hearing. She finished her Amoxicillin today. She is alert, skin is pink,warm and dry. documented in this encounter Plan of Treatment Upcoming Encounters Date Type Department Care Team (Late st Contact Info) Description 08/17/2024 12:00 PM EDT Office [place] [address] Britt Zurita MD [facility] [place] [address] documented as of this encounter Visit Diagnoses Diagnosis Acute serous otitis media- Primary documented in this encounter
--- OUTSIDE RECORDS SUMMARY | 2024-06-10 18:50 | XMS_ITS | Encounter Summary ---
[place] [address] Care Team Providers Care Animal Damage Control Agent Name Role Phone TrellAnuja APRN Primary Care Provider [phone] Reason for Visit * Reason Onset Date Comments Reminder Appointment 08/19/2021 Encounter Details Date Type Department Care Team (Late Contact Info) Description 08/19/2021 [place] [address] Marylu Betancur CCMA Reminder Appointment Social History Tobacco Use Types Packs/Day Years [...] encounter Miscellaneous Notes * Telephone Encounter - Marylu Betancur CCMA - 08/19/2021 8:51 AM EDT Called patient to review medications and allergies for their upcoming gastroenterology Type of Appointment: Telehealth appointment. Reach Patient during MA Check: Yes Notes for the provider: Notes for the nurse: documented in this encounter Plan of Treatment Upcoming Encounters Date Type Department Care Team (Late st Contact Info) Description 08/17/2024 12:00 PM EDT Office [place] [address] Britt Zurita MD [facility] [place] [address] documented as of this encounter Visit Diagnoses Not on filedocumented in this encounter Care Teams Animal Damage Control Agent Relationship Specialty Start Date End Date Anuja Cai APRN [address] [facility] [place] [address] PCP - General Internal Medicine 07/25/21 documented as of this encounter
--- OUTSIDE RECORDS SUMMARY | 2024-06-10 18:50 | XMS_ITS | Encounter Summary ---
[place] [address] Care Team Providers Care Community Midwife Name Role Phone Anuja Cai APRN Primary Care Provider [phone] Reason for Referral * Consultation (Routine) - Closed Specialty Diagnoses / Procedures Referred By Contmaya t Referred To Contact Weight and Wellness Diagnoses Obesity, unspecified classification, unspecified obesity type, unspecified whether serious comorbidity present Obstructive sleep apnea (adult) (pediatric) Anuja Cai APRN [address] [place] [address] [facility] [place] [address] Referral ID Status Reason Start Date Expiration Date V isits Requested Visits Authorized [id number] Closed Consult, Test & Treat 11/24/2022 11/24/2023 6 6 Encounter Details Date Type Department Care Team (Latest Contact Info) Description 11/24/2022 Transcribe Orders eDH Incoming Referrals [phone] Anuja Cai APRN [address] [place], [place] [id number] Obesity, unspecified classification, unspecified obesity type, unspecified whether serious comorbidity present; Obstructive sleep apnea (adult) (pediatric) Social History Tobacco Use Types Packs/Day Years [...] 12:00 PM EDT Office [place] [address] Britt Zurita MD [facility] [place] [address] Scheduled Referrals Name Type Priority Associated Diagnoses Orde r Schedule Referral to [facility] Outpatient Referral Routine Obesity, unspecified classification, unspecified obesity type, unspecified whether serious comorbidity present Obstructive sleep apnea (adult) (pediatric) Ordered: 11/24/2022 documented as of this encounter Visit Diagnoses Diagnosis Obesity, unspecified classification, unspecified obesity type, unspecified whether serious comorbidity present Obstructive sleep apnea (adult) (pediatric) documented in this encounter Care Teams Community Midwife Relationship Specialty Start Date End Date Anuja Cai APRN [address] [facility] [place] [address] PCP - General Internal Medicine 07/25/21 documented as of this encounter
--- OUTSIDE RECORDS SUMMARY | 2024-06-10 18:50 | XMS_ITS | Encounter Summary ---
Author Organization [facility] Address [facility] [place] [address] Care Team Providers Care Mutual Fund Analyst Name Role Phone Anuja Cai APRN Primary Care Provider [phone] Reason for Referral * Physical Therapy (Routine) - Closed Specialty Diagnoses / Procedures Referred By Ehsan patel Referred To Contact Diagnoses Heartburn Chest pain, unspecified type Gastric ulcer, unspecified chronicity, unspecified whether gastric ulcer hemorrhage or perforation present Incontinence of feces with fecal urgency Steatorrhea Diarrhea, unspecified type Irritable bowel syndrome, unspecified type Hiatal hernia Gastroesophageal reflux disease, unspecified whether esophagitis present Carla Jose APRN [facility] [place] [address] Robin Velásquez, PT [address] [facility] [address] [place] [address] Referral ID Status Reason Start Date Expiration Date V isits Requested Visits Authorized [id number] Closed Evaluate and Treat 08/19/2021 02/15/2022 12 12 * Diagnostic Test (Routine) - Closed Specialty Diagnoses / Procedures Referred By Ehsan patel Referred To Contact Gastroenterology Diagnoses Heartburn EGD/Waters ON PPI - heartburn Procedures Waters Capsule pH Test EGD/Waters ON PPI - heartburn Carla Jose APRN [facility] [place] [address] [facility] [place] [place] [address] Referral ID Status Reason Start Date Expiration Date V isits Requested Visits Authorized [id number] Closed Consult, Test & Treat 08/19/2021 08/19/2022 1 1 Reason for Visit * Consultation (Routine) - Closed Specialty Diagnoses / Procedures Referred By Contac t Referred To Contact Gastroenterology Diagnoses Generalized abdominal pain Irritable bowel syndrome without diarrhea Gastro-esophageal reflux disease without esophagitis Other fecal abnormalities 08/19-abd pain/IBS/gerd Anuja Cai APRN [address] [place] [address] [facility] [place] [place] [address] Referral ID Status Reason Start Date Expiration Date V isits Requested Visits Authorized [id number] Closed Consult, Test & Treat [facility] PCP Updated and/or Approved 07/18/2021 07/18/2022 6 6 Encounter Details Date Type Department Care Team (Latest Contact Info) Description 08/19/2021 11:00 AM EDT TH Visit (TeleHealth) [place] [id number] Carla Jose APRN [facility] [place] [address] Diarrhea, unspecified type (Primary Dx); Heartburn; Chest pain, unspecified type; Gastric ulcer, unspecified chronicity, unspecified whether gastric ulcer hemorrhage or perforation present; Incontinence of feces with fecal urgency; Steatorrhea; Irritable bowel syndrome, unspecified type; Hiatal hernia; Gastroesophageal reflux disease, unspecified whether esophagitis present Social History Tobacco Use Types Packs/Day Years [...] - Inhaled Oxygen Concentration - - Weight 93 kg (205 lb) 08/19/2021 11:01 AM EDT Height 170.2 cm (5' 7) 08/19/2021 11:01 AM EDT Body Mass Index 32.11 08/19/2021 11:01 AM EDT documented in this encounter Patient Instructions * Patient Instructions* Carla Jose APRN - 08/19/2021 11:00 AM EDT It was nice to meet you today. The following orders were placed during our visit today: Orders Placed This Encounter Procedures ??? C. Difficile Screen ??? Giardia/Cryptosporidium Antigens ([facility] [place]CGP/APD/[facility]H) ??? CBC (with Diff) ??? Basic Metabolic Panel (non-fasting) ??? Calprotectin, Stool ??? Elastase, Stool ??? Referral to Physical Therapy ??? Waters Capsule pH Test ??? High Resolution Esophageal Manometry Please call the GI department to schedule the investigations if you do not hear from us within 1-2 weeks: [phone]. Please go to or any [facility] affiliated lab to get any blood work/stool studies completed at your earliest convenience. Please note: given the ongoing COVID-19 pandemic, there has been delays in the scheduling and completion of various investigative studies. We are working to improve this, and in the meantime, we appreciate your patience and cooperation. As the results come back from your various tests, I will only call you if they are abnormal (no news is good news!). Below I have included some basic information functional bowel disorders and ways you can address various GI symptoms from home. I look forward to seeing you at your next visit, Carla Jose APRN Department of Gastroenterology and Hepatology [facility] Here is some information on the different procedures that may be ordered for you in GI: Endoscopy: this procedure is when we look at your Esophagus, stomach and beginning of small intestine called the duodenum. You will be sleepy/comfortable during this test, so you will require a ride home. We will take samples called biopsies to look for microscopic inflammation, diseases such as celiac disease/Eosinophilic esophagitis/Juárez's esophagus/etc, and you will get a letter approximately 2 weeks after your procedure letting you know the results and next steps. If we are testing for celiac disease, you will need to eat gluten foods for 6-8 weeks prior to your endoscopy. This means 3-10 grams of gluten (1 slice of bread is 2g) per day. If you do not, there can be false negative results. Colonoscopy: this procedure looks at the large intestine and the exit of your small intestine (called the ileocecal valve). Commonly, biopsies can be taken for patients having symptoms to look for inflammatory conditions such as microscopic colitis, Crohn's disease, or Ulcerative colitis. Also if the boat builder sees any polyps, they will be removed to see what kind of polyps they are. If biopsies or polyps are taken, you will get a letter approximately 2 weeks after your procedure letting you know the results and next steps.You will be sleepy/comfortable during this test, so you will require a ride home. This procedure also involves a prep the day before so that all of the stool is removed from your colon. This is important to avoid missing small polyps. Esophageal Manometry: this test measures the strength and movement of your esophagus while swallowing. It involves a small, thin probe going into your nose and into your esophagus. This does not impact your breathing or ability to swallow. Then, you will swallow water and the probe measures the movement and strength of your muscles in the esophagus. There is no sedation and you can drive yourselfhome. WATERS: this test is usually added onto an endoscopy. This does not impact your breathing or abilityto swallow. During the endoscopy, the WATERS sensor will be placed into the esophagus. While this isin place, it will measure whenever acid enters the esophagus. It will eventually release from the esophagus and exit your body normally. After it is in place and you go home, you will hit a sensor whenever you are having symptoms such as heartburn, and we will compare the two to see if your symptoms match acid entering the esophagus. The next day, you will need to return the equipment to the hospital after the test is complete. *You will be given more instruction as needed by the scheduling team or nurses prior to your tests *All results will be discussed at your follow up appointment unless I am placing an order and/or itneeds to be addressed sooner. Functional Bowel Disorders: Information Handout for Patients and Primary Care Providers Vishnu Archer MD, [facility] + Qasim Yang MD, GERARDO Bigg Esqueda APRN + Teri Gonzalez APRN + Carla Jose APRN [facility] What are functional bowel disorders? These are the most common type of gastrointestinal disorders in the [place] ??? The most common functional bowel disorder in the [place] is irritable bowel syndrome (IBS) ??? Irritable bowel syndrome affects the lower GI tract and can cause bloating, abdominal pain, diarrhea, and constipation ??? Functional dyspepsia (FD) affects the upper GI tract and can cause bloating, burping, heartburn, nausea, fullness and stomach discomfort ??? In functional disorders the gut is structurally/anatomically normal but is not functioning properly due to abnormalities in the enteric (gut) nervous system ??? Two mechanisms - heightened sensitivity of the gut to normal sensations (sensory nerves) and abnormal gut motility (motor nerves) ??? These disorders are caused by a combination of a genetic factors, changes to the gut microbiota(intestinal bacteria) and environmental triggers How common are these disorders and what is the impact? 15-20% of general [place] population has IBS or FD or both ??? 2nd most common cause for lost work days (after common cold) in [place] ??? Estimated $30 billion dollar cost to [place] economy per year ??? These disorders can have a significant impact on quality of life How is the diagnosis made? The diagnosis of a functional disorder is NOT a ???diagnosis of exclusion?? (common misconception) ??? Investigations may be necessary to look for other disorders (such as celiac disease) if the diagnosis is unclear ??? Work-up may include history (description of symptoms), physical exam, bloodwork, stool studies,diagnostic imaging and endoscopy What is the prognosis? Functional bowel disorders are unfortunately chronic disorders and often have a major impact onpatient quality of life, function, and relationships ??? Symptoms may gradually resolve is a small proportion of patients (highest rate in patients withimmediate onset of symptoms after infection); group home symptoms are expected in most patients however ??? Intermittent exacerbations (i.e. ???flares?? ) are common and may be caused by stress, infections, antibiotic exposure, and lack of adherence to treatment plans When should a patient be re-evaluated? Patients with stable symptoms do NOT need episodic re-evaluation ??? Subtle changes in symptoms and symptom flares are common ??? Patients should be re-evaluated if they have progression or dramatic changes in symptoms, severe abdominal pain, swallowing difficulties, unexplained weight loss, anemia (low blood counts), or bleeding ??? If you have concerns be sure to talk to your doctor What are the goals of therapy? Ultimately we hope that you to able to achieve prolonged periods of stability with minimal daily symptoms and have a decrease in the frequency/severity of ???flares? However, we believe the most important goal is to help you improve your overall quality of life. ??? For most patients this means doing the things that are important in your life despite having symptoms. ??? This is generally achieved by helping you develop coping skills and helping you achieve a greater understanding of your disorder. ??? Remember, generally complete resolution of symptoms is NOT a realistic goal. How do I use this information? Talk to you primary care provider and/or local boat builder and share this document. Treatment of functional disorders is a team effort! ??? Set realistic goals! Remember it is unlikely that any one measure will completely eliminate allsymptoms ?Start low and go slow?? with all measures to avoid potential side effects ??? Do ONE measure at a time - add measures as needed in a ???step-talley fashion?? - this will helpdetermine if a particular measure is helpful or not ??? Stay on any measure continuously for at least 4-6 weeks prior to assessing whether or not it ishelping (improvements are often slow to occur) ??? After an adequate trial ask yourself if the benefit is worth continuing the treatment ??? Remember there are a limited number of treatment options available. We want to be absolutely sure that a measure is not effective or intolerable before stopping it and considering other options ??? Often patients will need several ???layers?? or ???steps?? of therapy - finding the right combination for you takes time and patience ??? We specifically recommend all patients to do ALL lifestyle and dietary measures AND try using Metamucil (or other psyllium fiber supplement) and probiotics together - this approach benefits most patients ??? OTC (jgfc-led-kxfcnis) medications can be used for ongoing bothersome symptoms as listed below ??? Your provider (PCP or local Gastroenterology provider or [facility] Gastroenterology provider) may decide to use prescription medications if you have ongoing symptoms despite strict adherence to lifestyle and dietary measures and OTC medications ??? Your provider will give you advice on treatments but it is your responsibility to work on thesemeasures to improve your symptoms. Lack of adherence to recommendations is one of the most common cause for ongoing symptoms. ??? If symptoms are controlled try easing back or stepping down on measures - remember the main goal is to improve quality of life (not necessarily eliminate symptoms). Non-Pharmacologic General Treatments Lifestyle measures ??? Many lifestyle factors can worsen IBS symptoms ??? However, IBS is not caused by these factors (common misconception) ??? These lifestyle factors include the following: o Inadequate sleep o Weight gain o Inadequate exercise o Stress o Depression/anxiety - this should be brought up to your Primary Care Provider (if left untreated it is unlikely the functional bowel disorder will improve) Dietary measures ??? Trigger food avoidance - you should re-introduce foods once symptoms settle as overly restrictive diet can be unhealthy and even harmful ??? Fatty foods, spicy foods, alcohol, and caffeine can worsen symptoms ??? Consider a 2 week dairy-free trial for possible lactose-intolerance ??? Your PCP or GI provider can refer you to a dietitian to discuss specialized diets. ??? The overall dietary goal is to allow you to have a well-balanced and nutritious diet Fiber and Fluid ??? Adequate fiber and fluid intake is essential for optimal functioning of the human digestive tract ??? Aim for a fluid intake goal of 8-10 glasses of water a day (caffeine and alcohol count as minusone in calculation) ??? Aim for a fiber intake goal of 30 grams per day - some patients may require more or less ??? Increase fiber by 5 grams per week (remember ???start low and go slow?? ) ??? Fiber can be from multiple dietary sources but supplemental is often helpful ??? Fiber intake should include psyllium fiber; this is the type of fiber used in research studies for treatment of functional disorders ??? Sources of psyllium include All-Bran psyllium buds, Metamucil, Konsyl, bulk psyllium (GiveMeSport stores and bulk stores) ??? Specifically we recommend starting Metamucil or Konsyl at a low dosage - start at one teaspoon a day for one week then gradually increase by one teaspoon per week until no further benefit is achieved. ??? Some patients may get bloating when they start a fiber supplement. This generally goes away after 1-2 weeks of daily therapy. Try backing off to a lower dose or trying an alternate version (such as sweetener-free Metamucil) ??? If persistent issues try Citrucel (methylcellulose) as an alternate fiber supplement Probiotics ??? Measures aimed at improving the microbiome such as probiotics are a promising area but convincing medical evidence is still lacking ??? Suxs-hvb-hbgpbeu supplements including probiotics are not typically evaluated by FDA. The quality and even safety is often unclear and many products (despite being very expensive) actually do notcontain any active ingredients at all! ??? Live-culture yogurts, kombucha, sauerkraut and other dietary sources may help improve your microbiome ??? Align, TuZen, and Visbiome are the three probiotics that are supported by medical research to have benefit for IBS ??? Florastor has been shown to decrease antibiotic-associated diarrhea and post-infectious diarrhea ??? BioK Plus has been shown to decrease antibiotic-associated diarrhea and antibiotic-related infections Cwnw-ujh-Drjntae Medications for Functional Gut Disorders Based on Symptoms Diarrhea ??? Loperamide (Imodium) should be considered first for mild and intermittent symptoms - start withsmall doses and take several hours before needed (or even before bed) (it is generally considered safe for long-term use) Constipation ??? Patients with mild constipation can use laxatives ???as needed?? (in other words, if you feel constipated or haven't had a regular bowel movement). However, patients with more severe constipation generally need laxatives on a regular schedule (every day or every second day for example). This is called ???maintenance therapy?? . ??? PEG 3350 (Miralax) is a stool softener that is safe for group home usage (no risk of dependency)and the dosage can be adjusted to achieve 1-2 soft bowel movements per day; you can take a capful (17g) twice daily if needed ??? Milk of magnesia and lactulose are alternate stool softeners that are generally safe for regular use in most patients (you should ask your provider first). ??? Bisacodyl (Dulcolax) and senna (Senokot) are stimulant laxatives for occasional use only as they may lead to dependency with regular long-term use. ??? Enemas and bowel preparations (e.g. Colyte or Golytely) can be used to treat severe stool impaction ---- this is called ???rescue therapy?? . Drink 2 litres in 4 hours in the evening then take another 2 litres over 4 hours the next morning. Another option is to mix up 14 capfuls of Miralax with64 oz of Gatorade. ??? After rescue therapy immediately begin aggressive ???maintenance therapy?? with the therapies above. Bloating/Pain ??? Ensure constipation adequately treated - impacted stool can create a partial obstruction and contribute to pain ??? Peppermint oil may also be useful; a capsule form exists as well (IBgard) ??? Simethicone (Gas-X) can be helpful for occasional usage for ???gas spasms? Acetominophen (Tylenol) is safest analgesic (pain killer) on the gut ??? NSAIDs (e.g. ibuprofen) can cause gut irritation/inflammation - it's best to avoid or use in low doses only ??? Medical cannabis has been used to treat various chronic pain disorders; it has been reported tobenefit some patients with pain but has not be rigorously studied and may actually worsen symptoms in some patients with functional disorders. At this point we generally do NOT recommend using medical cannabis to treat functional disorders ??? AVOID narcotics/opioids as they typically make symptoms much worse and there is a risk of addiction and/or dependence ??? Exercise, hot-water bottle/heating pad, warm bath/shower, and warm beverages are also good treatments for painful bloating episodes Heartburn/Nausea/Vomiting/Dyspepsia ??? Acid reducing medications such as proton-pump inhibitors (PPIs) and H2 blockers may be helpful especially if you have gastroesophageal reflux disease (GERD) ??? Often a combination of anti-nausea medications (ynmh-dfu-iaojkhf or prescription) works better than high doses of only one medication ??? A herbal product called STW5 (Iberogast) is supported by some studies to help dyspepsia but data on long-term effectiveness and safety is limited ??? L-carnitine and coenzyme Q10 supplements have been reported to be beneficial to some patients with chronic nausea and vomiting ??? If using cannabis (recreational or medical) consider stopping for at least two weeks (ideally afull month). While cannabis has been reported to help some patients with nausea it may actually be contributing to symptoms. Disclaimer ??? This information is intended for education purposes only ??? It is not meant to replace direct patient-provider care ??? All medications should be used under the supervision of a Gastroenterology provider or Primary Care Provider ??? Authors are not liable for misuse/misinterpretation of this information Patient Resources [place] [employer] https://www.gastro.org/practice-guidance/pg-qdwufju-ixsodu/ topic/gybfjqycg-xvydo-wkeknyag-ibs Badgut.org https://badgut.org/information-centre/z-r-jgsqnrnnw-topics/ibs/ AboutIBS.org https://www.aboutibs.org/ Uptodate.com https://www.uptodate.com/contents/ecbmympkf-cebrr-bntkoioj-dtvjxr-xby-cebkpb documented in this encounter Progress Notes * Carla Jose APRN - 08/19/2021 11:00 AM EDT [facility] TELEMEDICINE PRO[facility] Chief Complaint: Teri Smith is a 41 y.o. patient referred for consultation by Dr. Cai for abdominal pain, IBS, GERD History of Present Illness: 41 y.o. female with abdominal pain, IBS, GERD Per referring note: -chronic loose stools -generalized abdominal discomfort -celiac negative, hep c negative -referral to [facility] placed, untreated TAMMY Longstanding Gi problems -over past 15 years: hasn't finished evaluation -last few months, new symptoms and getting worse -doesn't feel good or like myself Gas, bloating, alternating bowel habits: patient baseline Last few months -recent ER visits with abdominal pain, different Had been ongoing for 1 week prior, epigastric/sternum Xray looked fine -bowel movements have significantly changed: always bright yellow -2 episodes of incontinence in the past 3 weeks, while awake Upper GI symptoms well controlled Follows GERD lifestyle modifications Occasional skipping bowel movement, other days 5+ BM Usually 1-2/day Reading: 5 and 6 Steatorrhea Frequent/random nocturnal stooling Current Regimen: Omeprazole BID: insurance not covering BID Lifestyle NSAID use: previous frequent ibuprofen use, current meloxicam 2-3x/week Caffeine/Soda/Artificial Sugar: rare use Diet: allergic to kiwi, GERD modifications Exercise: limited, previously doing crossit Child Births: tubal ligation, 2 vaginal, 1 c section, minimal tearing Depression/Anxiety/Stress: PTSD, struggled with anxiety, ADHD, feels they are well managed Disordered Eating: Binge eating disorder 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 Medications: Outpatient Medications Prior to Visit Medication Sig Dispense Refill ??? levothyroxine (Synthroid) 112 mcg Tablet Take 112 mcg by mouth daily. ??? fexofenadine (AFSHIN) 180 mg Tablet Take 180 mg by mouth daily. ??? hydroCHLOROthiazide (Hydrodiuril) 25 mg Tablet Take 25 mg by mouth daily. ??? fluticasone propionate (Flonase) 50 mcg/actuation Lasara, Suspension SPRAY ONE SPRAY IN EACH NOSTRIL TWICE A DAY ??? omeprazole (PriLOSEC) 40 mg Capsule, Delayed Release(E.C.) Take 40 mg by mouth daily. PurchasedOTC for 40mg twice daily ??? meloxicam (MOBIC) 15 mg Tablet Take 15 mg by mouth as needed. ??? fluconazole (Diflucan) 150 mg Tablet Take 150 mg by mouth as needed. No facility-administered medications prior to visit. Allergies: has no allergies on file. Past Medical History: has a past medical history of Anxiety, Gastric ulcer, Hypothyroid, Kidney stone, Kidney stone, Thyroid disease, and Vaginal yeast infection. Currently prediabetic Gets episodes of low blood sugar (40-50) Past Surgical History: has a past surgical history that includes [place] tooth extraction; [place] tooth extraction; and Uterine fibroid surgery. Family History: family history includes Aneurysm in [...] and oriented. Moving upper extremities appropriately Questionnaire: No flowsheet data found. Assessment/Plan: Ms. Smith is a 41 y.o. patient with longstanding GI symptoms that have recently worsened. First, this patient has a longstanding history of GERD/heartburn first confirmed on EGD at outside hospital over 10 years ago. She does endorse intermittent episodes of heartburn when she does not follow lifestyle modification or continue to take medication. She does also endorse significant chest pain intermittently. Most recent EGD in 2011 at outside hospital showed small hiatal hernia and esophagitis. Patient symptoms are well managed using twice daily omeprazole 40 mg as well as GERD lifestyle modifications. Overall, patient feels this is well managed using current medication and lifestyle management; however, recently her insurance has insisted that she go to once daily dosing. EGD Waters ordered to evaluate for necessity of twice daily dosing. HREM ordered to rule out esophageal dysmotility contributing to chest pain. In addition to the problems outlined above, this patient has also noticed a worsening of diarrhea. Previously she did note a variable bowel pattern, but recently this has worsened to constant diarrhea. She endorses significant steatorrhea as well as >2 liquid bowel movements daily. She denies hematochezia, BRBPR, melena, or unintentional weight loss. She has had episodes of fecal incontinence.Of note this patient complains of episodes of hypoglycemia and has been prediabetic for extended period of time. Patient's daughter has type 1 diabetes. She did also have an episode of severe epigastric/chest pain, which she went to ER for. Cardiac evaluation negative. Abdominal ultrasound signifi cant for fatty liver, otherwise normal. Colonoscopy with biopsies to rule out IBD/microscopic colitis. Labs to rule out pancreatic insufficiency. Diagnostics: -EGD with WATERS -colonoscopy -HREM -labs -referral for pelvic floor PT Therapeutics: -Begin Metamucil (make sure it is free of sugar and artificial sweetener): 1tsp daily for one week,then 2tsp daily for one week, then 3tsp (1TBSP) daily. May increase slowly up to 2 TBSP daily. Titrate according to what works best for you.This may cause bloating initially but this will improve with continued use. If this supplement causes too much bloating you may try Citrucel. -review AVS for recommendations on functional bowel disorders We discussed that complete symptom relief may not be a fully achievable goal for this chronic condition, but that improvement in quality of life, healthy days at work and family functions, and also general symptom improvement may be more reasonable goals. We discussed that treatments should be tried individually and for periods of at least 4-8 weeks to truly assess symptom response. I did my bestto answer questions to the fullest ability. We discussed that recommended treatments should be tried individually for at least three months at a time to truly assess for a meaningful response, or as long as tolerated, before changing therapy. RTC with me in 4-6 months, at least 2 weeks after all testing is complete The patient was located in [place] at the time of their visit. TIME SPENT WITH PATIENT Time spent reviewing records prior to this encounter on day of appointment: 10 minutes Time spent during encounter with patient including counselin minutes Time spent documenting encounter after office visit: 15 minutes Calra Jose APRN [facility] [place] [address] documented in this encounter Plan of Treatment Upcoming Encounters Date Type Department Care Team (Late st Contact Info) Description 08/17/2024 12:00 PM EDT Office Visit Rheumatology at [facility] [place] [address] Britt Zurita MD [facility] [place] [address] Scheduled Orders Name Type Priority Associated Diagnoses Orde r Schedule Waters Capsule pH Test GI Routine Heartburn Expected: 08/19/2021, Expires: 02/17/2023 Scheduled Referrals Name Type Priority Associated Diagnoses Orde r Schedule Referral to Physical Therapy Outpatient Referral Routine Heartburn Chest pain, unspecified type Gastric ulcer, unspecified chronicity, unspecified whether gastric ulcer hemorrhage or perforation present Incontinence of feces with fecal urgency Steatorrhea Diarrhea, unspecified type Irritable bowel syndrome, unspecified type Hiatal hernia Gastroesophageal reflux disease, unspecified whether esophagitis present Ordered: 08/19/2021 documented as of this encounter Results * Basic Metabolic Panel (non-fasting) (08/23/2021 9:24 AM EDT) Glucose 108 65 - 199 mg/dL [facility] Comment:Diabetes: >=200 mg/d L plus symptoms Blood Urea Nitrogen 15 8 - 18 mg/dL [facility] Creatinine 1.09 0.70 - 1.20 mg/dL [facility] Sodium 140 135 - 145 mmol/L [facility] Potassium 3.6 3.5 - 5.0 mmol/L [facility] Comment: Please note: ??Patients with WBC >100,000 may have falsely elevated Potassium levels. ??For accurate Potassium quantification in these patients send serum separator tube (gold top) for subsequent determinations. ??Contact the Clinical Chemistry Laboratory if there are any questions. Chloride 101 98 - 107 mmol/L [facility] Carbon Dioxide 28 22 - 31 mmol/L [facility] Anion Gap 11 5 - 15 mmol/L [facility] Calcium 9.5 8.5 - 10.5 mg/dL [facility] Est Glomerular Filtration Rate 63 >=60 mL/min/1. 73 m?? [facility] Comment: This patient? s estimated glomerular filtration rate (eGFR) is between 63 mL/min/1.73 m2 (patients with less muscle mass) and 74 mL/min/1.73 m2 (patients with more muscle mass) as determined by the CKD-EPI equation. Assessment of eGFR is not appropriate when creatinine concentrations are rapidly changing. For clinical decisions where creatinine clearance will affect therapy, a 24-hour urine creatinine clearance may be advised. Assignment of CKD stage 1 - 5 for patients with an eGFR near the transition point between stages may be based on clinical assessment of muscle mass and symptoms in addition to eGFR. Blood 08/23/2021 9:24 AM EDT 08/23/2021 9:33 AM EDT Narrative Resulting Agency Comment Spec In Lab Carla Jose APRN CHEMISTRY ORDERABLE S [facility] [place] [address] documented in this encounter Visit Diagnoses Diagnosis Diarrhea, unspecified type- Primary Heartburn Chest pain, unspecified type Gastric ulcer, unspecified chronicity, unspecified whether gastric ulcer hemorrhage or perforation present Incontinence of feces with fecal urgency Steatorrhea Other specified intestinal malabsorption Irritable bowel syndrome, unspecified type Hiatal hernia Diaphragmatic hernia without mention of obstruction or gangrene Gastroesophageal reflux disease, unspecified whether esophagitis present documented in this encounter Care Teams Mutual Fund Analyst Relationship Specialty Start Date End Date Anuja Cai APRN [address] [place] [address] PCP - General Internal Medicine 07/25/21 documented as of this encounter
--- OUTSIDE RECORDS SUMMARY | 2024-06-10 18:50 | XMS_ITS | Encounter Summary ---
[place] [address] Care Team Providers Care Clerical Adviser Name Role Phone TrellUbaldoe Barbara ENCINAS Primary Care Provider + [phone] Encounter Details Date Type Department Care Team (Late Contact Info) Description 08/04/2022 Telephone [place] [address] Deja Gonzales Social History Tobacco Use Types Packs/Day Years [...] encounter Miscellaneous Notes * Telephone Encounter - Deja Gonzales - 08/04/2022 12:17 PM EDT Inbound/Outbound: OUT Spoke to Patient/Left Message: LVM Notes: Called patient to schedule Motility Testing. Left VM Return calls can be handled by: Any Motility Surgical First Assistant documented in this encounter Plan of Treatment Upcoming Encounters Date Type Department Care Team (Late Contact Info) Description 08/17/2024 12:00 PM EDT Office [place] [address] Britt Zurita MD [facility] [place] [address] documented as of this encounter Visit Diagnoses Not on filedocumented in this encounter Care Teams Clerical Adviser Relationship Specialty Start Date End Date Anuja Cai APRN [address] [place] [address] PCP - General Internal Medicine 07/25/21 documented as of this encounter
--- OUTSIDE RECORDS SUMMARY | 2024-06-10 18:50 | XMS_ITS | Encounter Summary ---
Author Organization [facility] [place] [address] Care Team Providers Care Caterpillar Operator Name Role Phone Anuja Cai APRN Primary Care Provider [phone] Encounter Details Date Type Department Care Team (Late st Contact Info) Description 05/28/2022 Ancillary Procedure [place] [phone] Anuja Cai APRN [address] [place] [address] Social History Tobacco Use Types Packs/Day Years [...] 12:00 PM EDT Office [place] [phone] Britt Zurita MD [facility] [address] [place], [place] [id number] documented as of this encounter Procedures Procedure Name Priority Date/Time Associated Diagnosis Comments FILM LIBRARY STORAGE ONLY DX HIP Routine 05/28/2022 12:00 AM EDT documented in this encounter Results * Film Library- Storage Only DX Hip (05/28/2022 12:00 AM EDT) Narrative [facility] - 02/02/2023 10:22 PM EDT This exam is auto-finalizing. It's purpose is for storage only. Anuja Cai APRN Fanny FILM LIBRARY ORD ERABLES Performing Organization Address City/State/[facility] Co de Phone Number [place], [place] documented in this encounter Visit Diagnoses Not on filedocumented in this encounter Care Teams Caterpillar Operator Relationship Specialty Start Date End Date Anuja Cai APRN [address] [place] [address] PCP - General Internal Medicine 07/25/21 documented as of this encounter
--- OUTSIDE RECORDS SUMMARY | 2024-06-10 18:50 | XMS_ITS | Encounter Summary ---
Author Organization [facility] [place] [address] Care Team Providers Care Meal Attendant Name Role Phone Unavailable Primary Care Provider Unavailabl e Reason for Referral * Consultation (Routine) - Complete - Unable to Contact Patient Specialty Diagnoses / Procedures Referred By Ehsan patel Referred To Contact Gastroenterology Diagnoses Diarrhea Liya Richardson [facility] [place] [address] [facility] [address] [place] [phone] Referral ID Status Reason Start Date Expiration Date Visits Requested Visits Authorized [id number] Complete - Unable to Contact Patient Consult, Test & Treat 05/20/2013 11/16/2013 1 1 Reason for Visit * Reason Comments Follow-up tests Encounter Details Date Type Department Care Team ([facility] Contact Info) Description 05/20/2013 7:45 AM EDT Follow-Up Internal Medicine at [facility] [address] [place] [address] Liya Richardson [facility] [address] [place] [address] Fatigue (Primary Dx); Arthralgia; Diarrhea; Shortness of breath Discharge Disposition: Home Social History Tobacco Use [...] Sign Reading Time Taken Comments Blood Pressure 142/83 05/20/2013 7:57 AM EDT left arm/sitting Pulse 61 05/20/2013 7:57 AM EDT Temperature 36.7 ??C (98 ??F) 05/20/2013 7:5 7 AM EDT Respiratory Rate 15 05/20/2013 7:57 AM EDT Oxygen Saturation 100% 05/20/2013 7:5 7 AM EDT room air] Inhaled Oxygen Concentration - - Weight 70.9 kg (156 lb 6.4 oz) 05/20/2013 7:57 AM EDT Height 165.1 cm (5' 5) 05/20/2013 7:57 AM EDT Body Mass Index 26.03 05/20/2013 7:57 AM EDT documented in this encounter Progress Notes * Liya Richardson APRN - 05/20/2013 8:31 AM EDT PCP: LIYA RICHARDSON APRN Chief Complaint Patient presents with ??? Follow-up tests SUBJECTIVE: Teri Haro is a 33 y.o. female who presents with continued concern for fatigue and generalized not feeling well. She reports that she is having more diarrhea in the last month. She states that she is having 3-4 days per week where she is having frequent diarrhea and going almost 10 times per day.She reports chronic LUQ and pelvic discomfort. She states that she was seen by clerical and office support workers at [facility] who had referred her to GI, but she never followed up prior to moving to this area. She reports some joint discomfort as well in her wrist and ankles. She is concerned about carpal tunnel, but describes discomfort in wrist and cannot identify numbness or tingling in any particular part of her hand. Night sweats- chronic for last couple of years, she describes them as sporadic in nature. Lymph node- she is concerned about lymph node under her neck. She thinks that it might have been there for about a month, but she is unsure of exactly when she noticed it. She has had multiple sore throats. ROS: See HPI No Known Allergies Current Outpatient Prescriptions Medication [...] HPV in female 079.4 OBJECTIVE: Filed Vitals: 05/20/13 0757 BP: 142/83 Pulse: 61 Temp: 36.7 ??C (98 ??F) TempSrc: Oral Resp: 15 Height: 165.1 cm (5' 5) Weight: 70.943 kg (156 lb 6.4 oz) SpO2: 100% PHYSICAL EXAM: GENERAL APPEARANCE: alert, oriented, in no acute distress NECK: supple, palpable about 3 mm left submandibular lymph node palpable, nontender. CARDIO: RRR, no murmurs. LUNGS: CTA, no rales, rhoncii, or wheezes. ABD: soft, non-distended, no masses or organomegaly. Tenderness in LUQ and pelvic area to palpation. ASSESSMENT & PLAN: Teri was seen today for follow-up . Diagnoses and associated orders for this visit: Fatigue/Arthralgia - given complaint of joint discomfort and fatigue will check LIZZIE and RF - LIZZIE; Future - Rheumatoid factor, quant; Future - patient also c/o shortness of breath. Will check chest xray to r/o TB. Cannot do PPD today because Thursday am and will not be able to make it back within 72 hours. Diarrhea - patient had referral to GI, but never went to appt in [place] because of move - reporting frequent diarrhea, will refer to GI for further work up. - Referral to Gastroenterology documented in this encounter Plan of Treatment Upcoming Encounters Date Type Department Care Team (Late st Contact Info) Description 08/17/2024 12:00 PM EDT Office [place] [address] Britt Zurita MD [facility] [place] [address] Scheduled Referrals Name Type Priority Associated Diagnoses Order Schedule Referral to Gastroenterology Outpatient Referral Routine Diarrhea Ordered: 05/20/2013 documented as of this encounter Visit Diagnoses Diagnosis Fatigue- Primary Other malaise and fatigue Arthralgia Pain in joint, site unspecified Diarrhea Shortness of breath documented in this encounter
--- OUTSIDE RECORDS SUMMARY | 2024-06-10 18:50 | XMS_ITS | Encounter Summary ---
Author Organization [facility] [place] [address] Care Team Providers Care Technology Education Instructor Name Role Phone Unavailable Primary Care Provider Unavailabl e Reason for Visit * Reason Comments Follow-up Encounter Details Date Type Department Care Team ([facility] st Contact Info) Description 04/14/2013 11:25 AM EDT Follow-Up Internal Medicine at [facility] [address] [place] [phone] Liya Richardson APRN [facility] [place] [address] Pap smear for cervical cancer screening (Primary Dx); Health care maintenance Discharge Disposition: Home Social History Tobacco Use [...] Sign Reading Time Taken Comments Blood Pressure 128/88 04/14/2013 11:22 AM EDT Pulse 76 04/14/2013 11:22 AM EDT Temperature 36.7 ??C (98 ??F) 04/14/2013 11:22 AM EDT Respiratory Rate 12 04/14/2013 11:22 AM EDT Oxygen Saturation 100% 04/14/2013 11:22 AM EDT Inhaled Oxygen Concentration - - Weight 70.4 kg (155 lb 3.2 oz) 04/14/2013 11:22 AM EDT Height 165.1 cm (5' 5) 04/14/2013 11:22 AM EDT Body Mass Index 25.83 04/14/2013 11:22 AM EDT documented in this encounter Patient Instructions * Patient Instructions* Liya Richardson APRN - 04/14/2013 12:23 PM EDT GO TO WEBSITE: PSYCHOLOGY TODAY -put in your zip code and search by provider type documented in this encounter Progress Notes * Liya Richardson APRN - 04/14/2013 11:48 AM EDT PCP: LIYA RICHARDSON APRN Chief Complaint Patient presents with ??? Follow-up SUBJECTIVE: Teri Haro is a 32 y.o. female who presents for follow up. She was treated with ear infections 5 days ago. She has been treated with amoxicillin. The pain is improved. Her ears still have decreasedhearing and ear pressure. She is concerned that the decreased hearing is going to cause permanent. Psych- she moved down here to live with boyfriend about 6 weeks. Boyfriend has diagnosis of schizoaffective disorder. He has not been treated for the last week. Her boyfriend has been staying with his parents for the last week. She is in emotional state. She is hoping to find a counselor. She reports increased stress and feeling down and hopeless, but feels it is around current events. No thoughts of harming herself. ROS: See HPI No Known Allergies Current Outpatient Prescriptions Medication Sig Dispense Refill ??? amoxicillin (AMOXIL) 500 mg capsule Take 1 capsule by mouth 3 times daily for 10 days. 30 capsule 0 ??? omeprazole (PRILOSEC) 40 mg capsule Take 1 capsule by mouth daily. 30 capsule 11 ??? levothyroxine (SYNTHROID) 88 mcg tablet Take 88 mcg by mouth daily. Patient Active Problem List Diagnoses Code ??? Peptic ulcer disease 533.90 ??? Hiatal hernia 553.3 ??? GERD (gastroesophageal reflux disease) 530.81 ??? Abnormal Pap smear of cervix 795.00 ??? History of stillbirth V23.5 ??? Hx of Mena thyroiditis V12.29 OBJECTIVE: Filed Vitals: 04/14/13 1122 BP: 128/88 Pulse: 76 Temp: 36.7 ??C (98 ??F) TempSrc: Oral Resp: 12 Height: 165.1 cm (5' 5) Weight: 70.398 kg (155 lb 3.2 oz) SpO2: 100% PHYSICAL EXAM: GENERAL APPEARANCE: alert, oriented, in no acute distress HEENT: TMs erythematous. No sinus tenderness. Nasal mucosa pink & moist. Pharynx without erythema, exudate, or enlarged tonsils. ABD: soft, non-tender, non-distended, no masses or organomegaly. : nl external genitalia, no lesions, no rashes; vaginal mucosa pink and rugated, no abnormal discharge, cervix pink and smooth. Bimanual: Uterus small mobile nontender, no CMT, no adnexal tenderness, masses. ASSESSMENT & PLAN: Teri was seen today for follow-up . Diagnoses and associated orders for this visit: Health care maintenance - Cytopathology Gynecological w/ HPV Other Orders - given information on Psychology Today website to assist her in finding a counselor in her area - TMs still erythematous bilaterally- reassured that hearing will return when ears have had time toheal, if symptoms do not improve after course of abx or worsen, patient to contact office - levothyroxine (SYNTHROID) 88 mcg tablet; Take 1 tablet by mouth daily. (renewed rx) documented in this encounter Plan of Treatment Upcoming Encounters Date Type Department Care Team (Late st Contact Info) Description 08/17/2024 12:00 PM EDT Office [place] [address] Britt Zurita MD [facility] [place] [address] documented as of this encounter Procedures Procedure Name Priority Date/Time Associated Diagnosis Comments PROPERTY ADMINISTRATOR MOLECULAR GENETICS REPORT Routine 04/14/2013 3:59 PM EDT PROPERTY ADMINISTRATOR CYTOLOGY FINAL REPORT Routine 04/14/2013 3:59 PM EDT CYTOPATHOLOGY GYNECOLOGICAL Routine 04/14/2013 12:25 PM EDT Health care maintenance documented in this encounter Results * Apprentice Cytology Final Report (04/14/2013 3:59 PM EDT) Apprentice Cytology Final Report ? [facility] ? Provider: ?? LIYA RICHARDSON Pt. Name: ?? TERI HARO ? Acc #: ?[id number] ?Pt. ? Col Date: ?? 04/14/2013 ? /Sex: ?1980,(33 years),Female ? Rec Date: ?? 04/14/2013 ? LOC: ?HPN ? CYTOPATHOLOGY: ??PROPERTY ADMINISTRATOR ? ---Adequacy--- ? Specimen submitted is satisfactory [...] ? These guidelines were published in the [employer] Journal of Obstetrics and ? Gynecology (2007;197(4):346-3 55). ? 04/21/13 ?? Screened by: ??SLA ??REPORT WRITER ? 04/22/13 ?? Verified by: ??BELKYS OCONNELL MD - Pathologist ? ---Comment--- ? Please also see concurrent HPV test result. ? ---Clinical Information--- ? HPV Option: ? Concurrent HPV ? Preparation: ?Liquid Based Pap ? Specimen Source: ?Vag/Cerv/Endo/LB P/Diagnostic ? LMP: ?/12/15 ? Hormones?: ?No ? Hysterectomy?: ?No ?: ?No ?: ?No ? I.U.D.?: ?No ? Pelvic Radiation: ? No ? Prior PROPERTY ADMINISTRATOR Therapy?: ? Other (comment) ? Hist Abnl Pap/Biopsy?: ??Yes, history of previous abnormal Pap ? Hist of HPV Vaccine?: ?? No ? Hist of Smoking?: ? Yes ? [facility] ? Provider: ?? LIYA RICHARDSON Pt. Name: ?? TERI HARO ? Acc #: ?[id number] ?Pt. ? Col Date: ?? 04/14/2013 ? /Sex: ?1980,(33 years),Female ? Rec Date: ?? 04/14/2013 ? LOC: ?HPN ? CYTOPATHOLOGY: ??PROPERTY ADMINISTRATOR ? Hist of MAR exposure?: ??No ? Clinical Data, Significant Therapy and Clinical Impression: ? This Pap Test has been evaluated with the assistance of the ThinPrep Pap ? Test Imaging System. ? Note: ? The Pap test is a screening test for cervical cancer with an inherent ? false-negative rate dependent upon several variables. ??For further ? information please contact the [facility]. ? Reference: ??Julianne CS. ??Respite Care Provider of Pap Smear Results. ??In: ? Suri BS, Silvestre HH, ed. ??The Pap Smear. ??[place]: ??Willian, 2002: ? 71-77. [facility] 04/14/2013 3:59 PM EDT Liya Richardson DIRECTOR OF CORPORATE MARKETING PATHOLOGY/CYTOLO GY ORDERABLES Performing Organization Address City/State/[facility] Co de Phone Number [facility] * PROPERTY ADMINISTRATOR Molecular Genetics Report (04/14/2013 3:59 PM EDT) PROPERTY ADMINISTRATOR Molecular Genetics Report ? [facility] ? Provider: ?? LIYA RICHARDSON Pt. Name: ?? TERI HARO ? Acc #: ?[id number] ?Pt. ? Col Date: ?? 04/14/2013 ? [...] Liquid Based Prep ? Reviewed by: ??[facility] ? A ?VCELD Vag/Cerv/Endo/L BP/Diagnostic ? B ?HPVDO Do HPV Testing ? Verified date: ??04/21/13 ??[facility] ? Verified by: ?Lab Review, Molecular Genetics ? (Electronic Signature) RUBEN BENNETT 04/14/2013 3:59 PM EDT Liya Richardson APRN PATHOLOGY/CYTOLO GY ORDERABLES RUBEN BENNETT * Cytopathology Gynecological (04/14/2013 12:25 PM EDT) AP Specimen 04/14/2013 12:2 5 PM EDT 04/14/2013 12:25 PM EDT Narrative RUBEN BENNETT - 04/14/2013 12:25 PM EDT Specimen requisition ordered. ??Separate Pathology report to follow Anila Serna MD PATHOLOGY/CYTOLOGY ORDERABLES [facility] documented in this encounter Visit Diagnoses Diagnosis Pap smear for cervical cancer screening- Primary Screening for malignant neoplasm of the cervix Health care maintenance Unspecified general medical examination documented in this encounter
--- OUTSIDE RECORDS SUMMARY | 2024-06-10 18:50 | XMS_ITS | Encounter Summary ---
Author Organization [facility] [place] [address] Care Team Providers Care Template Checker Name Role Phone Unavailable Primary Care Provider Unavailabl e Reason for Visit * Reason Comments Thyroid Problem Encounter Details Date Type Department Care Team ([facility] st Contact Info) Description 02/22/2014 3:00 PM EDT Office Visit Endocrinology [place] [address] Camila Beaver MD [facility] [address] [place] [address] Hypothyroidism (Primary Dx) Discharge Disposition: Home Social History [...] Sign Reading Time Taken Comments Blood Pressure 127/81 02/22/2014 2:42 PM EDT Pulse 83 02/22/2014 2:42 PM EDT Temperature - - Respiratory Rate - - Oxygen Saturation - - Inhaled Oxygen Concentration - - Weight 74.3 kg (163 lb 12.8 oz) 02/22/2014 2:42 PM EDT Height - - Body Mass Index 27.26 05/20/2013 7:57 AM EDT documented in this encounter Progress Notes * Camila Beaver MD - 03/01/2014 9:18 PM EDT I saw this patient with Dr. Moran . I reviewed the sawant portions of the history and physical exam, and reviewed pertinent lab data. I answered all patient questions. I was involved in all medical decision making and agree with this plan. * Cate Moran - 02/22/2014 2:49 PM EDT 33 y.o. Female referred for hypothyroidism with goiter. She has various symptoms that she would like to see if hormonally related. Diagnosed with hypothyroidism January 2011 - based on fatigue and weight gain during . But lost all of that weight since then. Saw Endocrinology at [facility] -- blood work and ultrasound diagnosed hypothyroid. Was started on 50 mcg of levothyroxine and was increased to 88 mcg daily since the last 2 years. Had thyroid ultrasound was 2 years ago with no concerning findings. Family history of thyroid cancer in maternal aunts and grand mother. Mother is hypothyroid. No other associations with the cancers, pituitary tumors, blood pressure issues. Since last 2 years had increased frequency of infections ranging from strep throat, bronchitis, URIs, flu, ear infections and has been on many antibiotics which may have led to yeast infections (getsevery month after periods). Was tested for sexually transmitted diseases which were negative. Was sent to Rheumatology at [facility] - no lupus or fibromyalgia. Was told to go to GI. Was told she had a kidney stone on x-ray recently Her main issue today is fatigue - very bad; 50% of the time cannot get out of bed. By 2 pm fightingto stay awake and feel weighted down. Doesn't think that she is depressed. Forgetfulness - brain fog very our of control; black outs in memory but not for a long periods of time Weight gain or loss - no Constipation, dry skin - alternating diarrhea and constipation - seeing GI for work up Diarrhea - As above Intolerance to cold/heat - always colder than others Menstrual irregularities - periods every month but characteristics of periods changed -- bleeding lasts for 2-3 days and very light Difficulty swallowing - no Difficulty breathing - no Hoarse voice - no Irritability/nervousness - no Palpitations - no Muscle weakness - weakness for overall Sleep disturbances - no but does not feel refreshed Vision/eye problems - no Increased appetite - no Past Medical History Diagnosis Date ??? Thyroid disease ??? Hypothyroid ??? Vaginal yeast infection ??? Anxiety ??? Kidney stone ??? Gastric ulcer ??? Kidney stone Past Surgical History Procedure Date ??? [place] tooth extraction ??? [place] tooth extraction ??? Uterine fibroid surgery Family History Problem Relation Age of Onset ??? Thyroid Disease Mother ??? Aneurysm Mother Brain ??? Diabetes Father type ii ??? Heart Disease Father ??? Cancer Maternal Aunt thyroid cancer 2 aunts ??? Thyroid Disease Maternal Aunt ??? Diabetes Maternal Grandmother type II ??? Heart Disease Maternal Grandmother ??? Cancer Paternal Grandfather colon cancer ??? Asthma Neg Hx History Social History ??? Marital Status: Spouse Name: N/A Number of Children: N/A ??? Years of Education: N/A Occupational History ??? Not on file. Social History Main Topics ??? Smoking status: Current Every Day Smoker -- 1.0 packs/day for 18 years Types: Cigarettes ??? Smokeless tobacco: Never Used Comment: soon not just yet ??? Alcohol Use: 1.8 oz/week 3 Glasses of wine per week Comment: twice a month ??? Drug Use: No Comment: rarely - for joint pain ??? Sexually Active: Yes -- Male partner(s) Comment: None- not concerned about at this time Other Topics Concern ??? Not on file Social History Narrative ??? No narrative on file No Known Allergies Current Outpatient Prescriptions Medication Sig Dispense Refill ??? cholecalciferol, Vitamin D3, 400 unit tablet Take 400 Units by mouth daily. ??? multivitamin with minerals (THERA-M) 9-0.4 mg tablet Take 1 tablet by mouth daily. ??? levothyroxine (SYNTHROID) 88 mcg tablet Take 1 tablet by mouth daily. 90 tablet 3 ??? omeprazole (PRILOSEC) 40 mg capsule Take 1 capsule by mouth daily. 30 capsule 11 BP 127/81 Pulse 83 Wt 74.299 kg (163 lb 12.8 oz) General: NAD, AAOx3 HEENT: EOMI, anicteric, PERRL, no exoophthalmous, moist mucous membranes, fundoscopic exam normal Neck: No LAD, + thyroid tissue, no palpable thyroid nodules, normal consistency, symmetrical, no tenderness, no bruit Neuro: no tremor of hands Extremities: no lower extremity edema Integumentary: Skin warm and dry/intact; no hyperpigmentation, no excessive hair growth A/P: 33 y.o. Female referred for hypothyroidism with goiter. She has various symptoms that she would like to see if hormonally related. Her symptoms of fatigue, muscle weakness, and frequent infections could fall under adrenal insufficiency (pre-test probability is low) or undiagnosed diabetes - will check A1c and ACTH stimulation test The fatigue and weakness could also be due to hypothyroidism, hypercalcemia, Vit D def - will check TSH, CMP, and Vit D levels Overall these symptoms are very non-specific but will check the above labs to see if there is an Endocrine dysfunction here. Also, advised the patient to stop smoking for herself and her daughter - she is working on quittingespecially since she is getting short of breath after climbing a flight of stairs. I suggested possibly getting PFT's for COPD evaluation. Cate Moran DO Fellow in Endocrinology [facility] Dept of Endocrinology Office: [phone] Pager: [phone] documented in this encounter Plan of Treatment Upcoming Encounters Date Type Department Care Team (Late st Contact Info) Description 08/17/2024 12:00 PM EDT Office Visit Rheumatology [place] [address] Britt Zurita MD [facility] [place] [address] documented as of this encounter Procedures Procedure Name Priority Date/Time Associated Diagnosis Comments CORTISOL Routine 02/22/2014 5:18 PM EDT Hypothyroidism VITAMIN D, 25-HYDROXY Routine 02/22/2014 4:09 PM EDT Hypothyroidism TSH Routine 02/22/2014 4:09 PM EDT Hypothyroidism HEMOGLOBIN A1C Routine 02/22/2014 4:09 PM EDT Hypothyroidism CORTISOL Routine 02/22/2014 4:09 PM EDT Hypothyroidism COMPREHENSIVE METABOLIC PANEL Routine 02/22/2014 4:09 PM EDT Hypothyroidism documented in this encounter Results * Cortisol (02/22/2014 5:18 PM EDT) Cortisol 37.1 mcg/dL [facility] Comment: Reference ranges: ??AM (7-10am): ??6.2-19.4 mcg/dL ??PM (4-8pm): ??2.3-12.3 mcg/dL Blood specimen (specimen) 02/22/2014 5:18 PM EDT 02/22/2014 5:21 PM EDT Narrative Resulting Agency Comment Spec In Lab Camila Beaver MD CHEMISTRY ORDERAB LES Performing Organization Address [facility] Co de Phone Number [facility] * Cortisol (02/22/2014 4:09 PM EDT) Cortisol 6.3 mcg/dL [facility] Comment: Reference ranges: ??AM (7-10am): ??6.2-19.4 mcg/dL ??PM (4-8pm): ??2.3-12.3 mcg/dL Blood specimen (specimen) 02/22/2014 4:09 PM EDT 02/22/2014 4:18 PM EDT Narrative Resulting Agency Comment Spec In Lab Camila Beaver MD CHEMISTRY ORDERAB LES Performing Organization Address City/State/[facility] Co de Phone Number [facility] * (ABNORMAL) VIT D Total Evaluation (02/22/2014 4:09 PM EDT) Pathologist [facility] Vitamin D Total 25 OH 24(L) 30 - 100 ng/mL CERNER MILLENNIUM Comment: Deficient <10 ng/mL Insufficient 10 to 29 ng/mL Sufficient 30 to 100 ng/mL Potential Intoxication >100 ng/mL According to the [place] National Osteoporosis Foundation, Vitamin D concentrations >30 ng/mL are sufficient to protect bone health. ??The National Kidney Foundation has similarly stated that patients with Vitamin D concentrations <30ng/mL should be considered to be insufficient or deficient. http://www.kidney.org/professionals/KDOQI/guidelines_bone/Guide7.htm http://nof.org/files/nof/public/content/clinicalupdates/clinicalupdates/Issue2 5VitaminD/2012_VitaminD.html The [employer] iSYS Vitamin D Immunoassay detects both 25-OH Vitamin D2 and 25-OH Vitamin D3, but only a total Vitamin D concentration is reported. Blood specimen (specimen) 02/22/2014 4:09 PM EDT 02/22/2014 4:18 PM EDT Narrative Resulting Agency Comment Spec In Lab Camila Beaver MD CHEMISTRY ORDERAB LES [facility] * (ABNORMAL) Comprehensive metabolic panel (non-fasting) (02/22/2014 4:09 PM EDT) [facility] Glucose 70 60 - 199 mg/dL [facility]ERNER MILLENNIUM Comment:Diabetes: >=200 mg/d L plus symptoms Blood Urea Nitrogen 11 8 - 18 mg/dL CERNER MILLENNIUM Creatinine 0.83 0.70 - 1.20 mg/dL CERN[facility] MILLENNIUM Comment: Please note that the pediatric reference intervals supplied above were not validated at [facility]. Results from pediatric patients should be interpreted in conjunction to the patient's age, height and muscle mass. Sodium 137 135 - 145 mmol/L CERN[facility] MILLENNIUM Potassium 3.9 3.5 - 5.0 mmol/L [facility] MILLENNIUM Comment: Please note: ??Patients with WBC >100,000 may have falsely elevated Potassium levels. ??For accurate Potassium quantification in these patients send serum separator tube (gold top) for subsequent determinations. ??Contact the Clinical Chemistry Laboratory if there are any questions. Chloride 102 98 - 107 mmol/L CERNER MILLENNIUM Carbon Dioxide 21(L) 22 - 31 mmol/L CERNER MILLENNIUM Anion Gap 14 5 - 15 mmol/L CERNER MILLENNIUM Calcium 9.5 8.5 - 10.5 mg/dL [facility]ERN[facility] MILLENNIUM Protein, Total 7.4 6.4 - 8.3 gm/dL [facility]ERN[facility] MILLENNIUM Albumin 4.6 3.2 - 5.2 gm/dL CERNER MILLENNIUM Aspartate Aminotransferase 19 0 - 30 unit/L CERNER MILLENNIUM Alanine Aminotransferase 10 0 - 30 unit/L CERNER MILLENNIUM Alkaline Phosphatase 36(L) 40 - 104 unit/L CERNER MILLENNIUM Bilirubin, Total 0.7 0.2 - 1.3 mg/dL CERNER MILLENNIUM Bilirubin, [...] internet browser. http://www.nkdep.nih.gov/lab-evaluation.shtml http://www.kidney.org/professionals/ Blood specimen (specimen) 02/22/2014 4:09 PM EDT 02/22/2014 4:18 PM EDT Narrative Resulting Agency Comment Spec In Lab Camila Beaver MD CHEMISTRY ORDERAB LES CERYASMIN COYLEIUM * TSH (02/22/2014 4:09 PM EDT) Thyroid Stimulating Hormone 0.78 0.27 - 4.20 mcIU/mL CERNER MILLENNIUM Blood specimen (specimen) 02/22/2014 4:09 PM EDT 02/22/2014 4:18 PM EDT Narrative Resulting Agency Comment Spec In Lab Camila Beaver MD CHEMISTRY ORDERAB LES RUBEN BENNETT * Hemoglobin A1c (02/22/2014 4:09 PM EDT) Hemoglobin A1c 5.0 <=5.6 % ALEXANDRU BENNETT Comment: As of 2013 the methodology for Hemoglobin A1c testing has changed. This change is accompanied by a new interpretive statement and flags. Please review the new interpretive statement and contact Dr. Lara or Dr. Cristina with questions. Reference Range: 4.3 ? 5.6% 5.7 ? 6.4% - Increased Risk of Developing Diabetes Mellitus 6.5% - Consistent with diagnosis of Diabetes Mellitus In the absence of hyperglycemia (i.e. plasma glucose > 200 mg/dL) or classic symptoms of hyperglycemia a repeat measurement of HbA1c should be performed on a separate sample to confirm the diagnosis. Diagnosis and Classification of Diabetes Mellitus, Diabetes Care 2013; 36: Suppl. 1, S67-74 Estimated Average Glucose 97 mg/dL [facility] Comment: eAG equivalents for HbA1c percentages: HbA1c(%) ?eAG(mg/dL) 6.0 ?126 6.5 ?140 7.0 ?154 7.5 ?169 8.0 ?183 8.5 ?197 9.0 ?212 9.5 ?226 10.0 ? 240 Limitations: The eAG calculation has not been validated on women, individuals below 18 years old and above 70 years old, and individuals with hemoglobinopathies. Additional resources are available on the ADA website: ??http://professional.diabetes.org/glucosecalculator.aspx Gabino DIAZ, Donnie J, Zhou R, et al. ??Translating the A1C assay into estimated average glucose values. ??Diabetes Care 2008:31(8):5871-8549. Blood specimen (specimen) 02/22/2014 4:09 PM EDT 02/22/2014 4:18 PM EDT Narrative Resulting Agency Comment Spec In Lab Camila Beaver MD CHEMISTRY ORDERAB LES [facility] documented in this encounter Visit Diagnoses Diagnosis Hypothyroidism- Primary Unspecified hypothyroidism documented in this encounter Administered Medications Inactive Administered Medications - up to 3 most recent administrations Medication Order MAR Action Action Date Dose Rate Site cosyntropin (CORTROSYN) injection 0.25 mg 0.25 mg, Intravenous, ONCE, 1 dose, On Thu02/22/14 at 1615, Routine Given 02/22/2014 4:18 PM EDT 0.25 mg Sara patel Arm documented in this encounter
--- OUTSIDE RECORDS SUMMARY | 2024-06-10 18:50 | XMS_ITS | Encounter Summary ---
Author Organization [facility] Address [facility] [place] [address] Care Team Providers Care Research Development Manager Name Role Phone Unavailable Primary Care Provider Unavailabl e Reason for Visit * Reason Onset Date Comments Labs Only 08/11/2013 Encounter Details Date Type Department Care Team (Late st Contact Info) Description 08/11/2013 Telephone Family Medicine at [facility] [address] [place] [address] Liya Silva APRN [facility] [place] [address] Labs Only Social History Tobacco Use Types [...] encounter Miscellaneous Notes * Telephone Encounter - Katharina Blakely CMA - 08/11/2013 3:21 PM EDT The Pt has a X-ray chest order that has . Because it has I can not extend it becauseonce it is the radiology system will no longer recognize it. So I have basically Canceled (done the order) in the edh system. If you would still like the order you will need to place a new order, or wait until the pt comes in again and discuss it with them. I'm sorry for any inconvenience this may cause you. Thank You Katharina documented in this encounter Plan of Treatment Upcoming Encounters Date Type Department Care Team (Late st Contact Info) Description 08/17/2024 12:00 PM EDT Office [place] [address] Britt Zurita MD [facility] [place] [address] documented as of this encounter Visit Diagnoses Not on filedocumented in this encounter
--- OUTSIDE RECORDS SUMMARY | 2024-06-10 18:50 | XMS_ITS | Encounter Summary ---
Author Organization [facility] Address [facility] [place] [address] Care Team Providers Care Stripper Black And White Name Role Phone Unavailable Primary Care Provider Unavailabl e Encounter Details Date Type Department Care Team (Late st Contact Info) Description 04/26/2013 Telephone Family Medicine at [facility] [address] [place] [address] Liya Silva APRN [facility] [place] [address] Social History Tobacco Use Types Packs/Day Years [...] Miscellaneous Notes * Telephone Encounter - Massiel Gilbert - 04/26/2013 4:30 PM EDT Reviewed with patient results of pap smear. We had wrong number listed for patient so that has beenchanged in system. The patient stated an understanding of her positive HPV results and will contactour office with any further questions or concerns. * Telephone Encounter - Susan Correa - 04/26/2013 4:21 PM EDT Pt needs call back has no idea of her neg pap and OBGYN on phone. Thankyou documented in this encounter Plan of Treatment Upcoming Encounters Date Type Department Care Team (Late st Contact Info) Description 08/17/2024 12:00 PM EDT Office [place] [address] Britt Zurita MD [facility] [place] [address] documented as of this encounter Visit Diagnoses Not on filedocumented in this encounter
--- OUTSIDE RECORDS SUMMARY | 2024-06-10 18:50 | XMS_ITS | Encounter Summary ---
Author Organization [facility] Address [facility] [place] [address] Care Team Providers Care Rn Acute Care Name Role Phone Anuja Cai APRN Primary Care Provider [phone] Encounter Details Date Type Department Care Team (Late st Contact Info) Description 09/30/2021 1:00 PM EST - 09/30/2021 2:00 PM EST [place] [phone] Guilherme Rock MD [facility] [place] [address] EGD WITH BIOPSY (WRVU 2.39) Social History Tobacco Use Types Packs/Day Years [...] Sign Reading Time Taken Comments Blood Pressure 161/102 09/30/2021 2:00 PM EST Pulse 75 09/30/2021 1:45 PM EST Temperature 36.4 ??C (97.5 ??F) 09/30/2021 12:[address] Respiratory Rate 18 09/30/2021 2:00 PM EST Oxygen Saturation 99% 09/30/2021 2:00 PM EST Inhaled Oxygen Concentration - - Weight - - Height - - Body Mass Index - - documented in this encounter Discharge Instructions * Discharge Instructions* Yair Rushing RN - 09/30/2021 1:59 PM EST Upper [...] the day after the procedure, use an odps-dfz-wytutmt spray to numb your throat. Sucking on [...] occurs, please contact your Doctor. Please call [phone] before 8pm Mon-Fri with problems, questions or concerns. If you call after 8pm or on weekends, call the Hospital at [phone] and ask to speak to the [employer]cher environmental monitoring specialist and the transfer station operator will contact that person for you. When should you call for help? Call [phone] anytime you think you may need emergency [...] any problems. Where can you learn more? [facility] View your After Visit Summary and more online at [email or web address] If you would like to provide feedback about your hospital experience, please call the Office of Patient and Family Relations at . If you have received this After Visit Summary in error, please immediately return it in person to the department, or notify the [facility] Privacy Office by calling toll free at between the hours of 8AM and 5PM to arrange for our retrieval of the documents at no cost to you. Content Version: 12.2 ?? [id number] [employer]. Care instructions adapted under license by [facility]. If you have questions about a medical condition or this instruction, always ask your healthcare professional. [employer] disclaims any warranty or liability for your [...] occurs, please contact your Doctor. Please call [phone] before 8pm Mon-Fri with problems, questions or concerns. If you call after 8pm or on weekends, call the Hospital at [phone] and ask to speak to the [employer] environmental monitoring specialist and the transfer station operator will contact that person for you. When should you call for help? Call [phone] anytime you think you may need emergency [...] any problems. Where can you learn more? [facility] View your After Visit Summary and more online at [email or web address] If you would like to provide feedback about your hospital experience, please call the Office of Patient and Family Relations at . If you have received this After Visit Summary in error, please immediately return it in person to the department, or notify the [facility] Privacy Office by calling toll free at between the hours of 8AM and 5PM to arrange for our retrieval of the documents at no cost to you. Content Version: 12.2 ?? [phone] [employer]YYO. Care instructions adapted under license by [facility]. If you have questions about a medical condition or this instruction, always ask your healthcare professional. [employer] disclaims any warranty or liability for your [...] 02/16/24 07/29/2021 fluticasone propionate (Flonase) 50 mcg/actuation Happy, Suspension SPRAY ONE SPRAY IN EACH NOSTRIL [...] Mena thyroiditis Z86.39 ??? Abnormal Pap smear [id number] ??? 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 EXAM: HEENT: [...] 12:00 PM EDT Office [place] [address] Britt Zurita MD [facility] [address] documented as of this encounter Procedures Procedure Name Priority Date/Time Associated Diagnosis Comments SPECIMEN TO PATHOLOGY Routine 09/30/2021 1:46 PM EST SPECIMEN TO PATHOLOGY Routine 09/30/2021 1:25 PM EST SPECIMEN TO PATHOLOGY Routine 09/30/2021 1:25 PM EST SPECIMEN TO PATHOLOGY Routine 09/30/2021 1:25 PM EST SURGICAL PATHOLOGY REPORT Routine 09/30/2021 1:19 PM EST Colonoscopy, Diagnostic ([id number]) 09/30/2021 1:03 PM EST Colonoscopy with biopsies to rule out IBD/microscopic colitis EGD/Waters ON PPI Upper Gi Endoscopy, Biopsy ([id number]) 09/30/2021 1:03 PM EST Colonoscopy with biopsies to rule out IBD/microscopic colitis EGD/Waters ON PPI UPPER GI ENDOSCOPY Routine 09/30/2021 12 :19 PM EST COLONOSCOPY Routine 09/30/2021 12:18 PM EST documented in this encounter Results * Specimen to Pathology (09/30/2021 1:46 PM EST) AP Specimen 09/30/2021 1:46 PM EST 09/30/2021 1:46 PM EST Narrative [facility] - 09/30/2021 1:46 PM EST Specimen requisition ordered. ??Separate Pathology report to follow Guilherme Rock MD PATHOLOGY/CYTOLOGY O RDERAVENICE [facility] [place] [address] * Specimen to Pathology (09/30/2021 1:25 PM EST) AP Specimen 09/30/2021 1:25 PM EST 09/30/2021 1:25 PM EST Narrative [facility] - 09/30/2021 1:25 PM EST Specimen requisition ordered. ??Separate Pathology report to follow Guilherme Rock MD PATHOLOGY/CYTOLOGY O LAZ Performing Organization Address [facility] [place] [address] * Specimen to Pathology (09/30/2021 1:25 PM EST) AP Specimen 09/30/2021 1:25 PM EST 09/30/2021 1:25 PM EST Narrative [facility] - 09/30/2021 1:25 PM EST Specimen requisition ordered. ??Separate Pathology report to follow Guilherme Rock MD PATHOLOGY/CYTOLOGY O LAZ Performing Organization Address [facility] [place] [address] * Specimen to Pathology (09/30/2021 1:25 PM EST) AP Specimen 09/30/2021 1:25 PM EST 09/30/2021 1:25 PM EST Narrative [facility] - 09/30/2021 1:25 PM EST Specimen requisition ordered. ??Separate Pathology report to follow Guilherme Rock MD PATHOLOGY/CYTOLOGY O LAZ Performing Organization Address [facility] [place] [address] * Surgical Pathology Report (09/30/2021 1:19 PM EST) Final Diagnosis [id number] ? Location: 4T; EA07; A The signing [...] Carmen Verified: ??10/07/2021 13:51 ??Pathologist Performed at: ??-[facility] [place], [place], [place] SPECIMEN(S) SUBMITTED A - Duodenum R/O [...] labeled D1-D3. ??sns 10/07/2021 1:51 PM EST [facility] GI Biopsy 09/30/2021 1:19 PM EST 09/30/2021 1:19 PM EST GI Biopsy 09/30/2021 1:19 PM EST 09/30/2021 1:19 PM EST GI Biopsy 09/30/2021 1:19 PM EST 09/30/2021 1:19 PM EST GI Biopsy 09/30/2021 1:19 PM EST 09/30/2021 1:19 PM EST Guilherme Rock MD PATHOLOGY/CYTOLOGY Lisa NESBITT [facility] [place] [address] * UPPER GI ENDOSCOPY (09/30/2021 12:19 PM EST) UPPER GI ENDOSCOPY [facility] Endoscopy Procedure Date: 09/30/2021 12:19 PM ? Patient Name: Teri Smith ? Date of : 1980 ? Age: 41 ? Order #: [id number] ? Instrument Name: [id number] ? Procedure: ? Upper GI endoscopy Indications: ? Dyspepsia, GERD on PPI, diarrhea. For ? Waters on meds Providers: ? Guilherme Rock MD, Julio Mayes, ? JANNA, Francois Nunez MD: ?Carla Parker Medicines: ? Midazolam 4 mg [...] * COLONOSCOPY (09/30/2021 12:18 PM EST) COLONOSCOPY [facility] Endoscopy ___ Procedure Date: 09/30/2021 12:18 PM ? Patient Name: Teri Smith ? Date of : 1980 ? Age: 41 ? Order #: [id number] ? Instrument Name: [id number] ? ___ Procedure: ? Colonoscopy Indications: ? Diarrhea Providers: ? Guilherme Rock MD, Julio Mayes, ? RN, Francois Nunez MD: ?Anuja Cai, Carla Marquez Medicines: ? Midazolam 2 mg IV, Fentanyl [...] preparation was evaluated using ? the BBPS (Woody Bowel Preparation ? Scale) with scores of: [...] PM PROVATION 09/30/2021 12:1 8 PM EST Anuja Cai APRN GENERAL SURGICAL ORD ERABLES PROVATION documented in this encounter Visit Diagnoses Not on filedocumented in this encounter Administered Medications Inactive Administered Medications - up to 3 most recent administrations Medication Order MAR Action Action Date Dose Rate Site benzocaine (Hurricane One) 20% spray (restricted to kervin-procedural use) ONCE PRN, Starting on Thu09/30/21 at 1315, Until Thu09/30/21 at 1647, Intra-Operative (Intra-Procedure) Given 09/30/2021 1:15 PM EST 1 spray diphenhydrAMINE (Benadryl) (50 mg/mL) injection ONCE PRN, Starting on Thu09/30/21 at 1336, Until Thu09/30/21 at 1647, Intra-Operative (Intra-Procedure), Routine Given 09/30/2021 1:36 PM EST 25 mg Given 09/30/2021 1:30 PM EST 25 mg fentaNYL (pf) (50 mcg/mL) multi-dose injection ONCE PRN, Starting on Thu09/30/21 at 1312, Until Thu09/30/21 at 1647, Intra-Operative (Intra-Procedure), Routine Given 09/30/2021 1:36 PM EST 50 mcg Given 09/30/2021 1:30 PM EST 50 mcg Given 09/30/2021 1:18 PM EST 50 mcg midazolam (pf) (Versed) (1 mg/mL) multi-dose injection ONCE PRN, Starting on Thu09/30/21 at 1312, Until Thu09/30/21 at 1647, Intra-Operative (Intra-Procedure), Routine Given 09/30/2021 1:36 PM EST 1 mg Given 09/30/2021 1:30 PM EST 1 mg Given 09/30/2021 1:18 PM EST 1 mg documented in this encounter Active and Recently Administered [...] documented as of this encounter Care Teams Rn Acute Care Relationship Specialty Start Date End Date Anuja Cai APRN [address] [place] [address] PCP - General Internal Medicine 07/25/21 documented as of this encounter
--- OUTSIDE RECORDS SUMMARY | 2024-06-10 18:50 | XMS_ITS | Encounter Summary ---
Author Organization [facility] [place] [address] Care Team Providers Care Regional Training Manager Name Role Phone Unavailable Primary Care Provider Unavailabl e Reason for Visit * Reason Comments Colposcopy LSIL + HR HPV Encounter Details Date Type Department Care Team (Latest Contact Info) Description 05/20/2013 9:30 AM EDT Procedure visit Obstetrics [place] [phone] Tyler Billings MD [facility] DR OBSTETRICS [place] [address] Abnormal pap (Primary Dx); Papanicolaou smear of cervix with low grade squamous intraepithelial lesion (LGSIL) Discharge Disposition: Home Social History Tobacco Use [...] as of this encounter Progress Notes * Tyler Billings MD - 05/22/2013 12:28 PM EDT I was the attending physician supervising the resident in the above care and I was present with theresident for the entire procedure. * Radha Cristina MD - 05/20/2013 10:17 AM EDT Teri Haro is a 33 y.o. y.o. 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 She has not gotten the gardasil vaccine. She denies history of warts or other STI. Is a current 1 ppd smoker. Current Outpatient Prescriptions on File Prior to Visit Medication Sig Dispense Refill ??? levothyroxine (SYNTHROID) 88 mcg tablet Take 1 tablet by mouth daily. 90 tablet 3 ??? omeprazole (PRILOSEC) 40 mg capsule Take 1 capsule by mouth daily. 30 capsule 11 No Known Allergies Objective: Immediately prior to the start of the procedure, I confirmed the patient's identity, intended procedure, and insured that the proper equipment was present for the procedure. On exam, external genitalia normal. Vagina and cervix without visible lesion on speculum exam. Colposcopic evaluation using 5% acetic acid showed SCJ visible just inside os on posterior lip, butnot visible on anterior lip of cervix. Clear evidence of prior LEEP. No acetowhite changes visible. Cervix was examined with Lugol's solution and no suspicious lesions noted. ECC was collected. Impression: Inadequate colposcopy. No lesions seen. ECC collected. Counseled on relationship between smoking and cervical cancer. Plan: Will contact patient with results. OK to leave message on cell phone. documented in this encounter Plan of Treatment Upcoming Encounters Date Type Department Care Team (Late st Contact Info) Description 08/17/2024 12:00 PM EDT [place] [address] Britt Zurita MD [facility] [place] [address] Scheduled Orders Name Type Priority Associated Diagnoses Orde r Schedule COLPOSCOPY - CERVIX with ECC OB Routine Abnormal pap Ordered: 05/21/2013 documented as of this encounter Procedures Procedure Name Priority Date/Time Associated Diagnosis Comments SPECIMEN TO PATHOLOGY (NON-OR) Routine 05/20/2013 3:35 PM EDT Abnormal pap SURGICAL PATHOLOGY REPORT Routine 05/20/2013 3:35 PM EDT documented in this encounter Results * Surgical Pathology Report (05/20/2013 3:35 PM EDT) Surgical Pathology Report ? [facility] ? Provider: ?? TYLER BILLINGS ?Pt. Name: ?? TERI HARO ? Acc #: ?[id number] ?Pt. ? Col Date: ?? 05/20/2013 ? /Sex: ?1980,(33 years),Female ? Rec Date: ?? 05/20/2013 ? LOC: ?5L ? SURGICAL PATHOLOGY ? ---Pathologic Diagnosis--- ? Endocervical curettings: ?1. Fragments of benign endocervical mucosa intermixed with cervical ? mucus and blood clot. ?2. No evidence of dysplasia or HPV effect. ? CR-0 ? 05/23/13 ? ARS ? 05/23/13 Verified by: ? Romeo Crowder MD ? Pathologist ? (Electronic Signature) ? The attending pathologist whose signature appears on this report has ? reviewed all diagnostic slides and has edited the gross and/or ? microscopic portion of the report in rendering the final pathologic ? diagnosis. ? ---Microscopic Description--- ? Slides reviewed, microscopic description not recorded. ? ---Gross Description--- ? A - Labeled/Fixative : Patient's name MRN, formalin. ? Quantity/Size: Fragments, 1.3 x 1.0 x 0.3 cm. ? Tissue Description: ??brown soft tissue mucus and clotted blood. ? Sections/Process ing: Submitted en-toto. (T1) ??shb ? ---Clinical Information--- ? Specimen Submitted: ? A - ECC ? Clinical History: ? LSIL on Pap ? Clinical Diagnosis: ? Same RUBEN BENNETT 05/20/2013 3:35 PM EDT Tyler Billings MD PATHOLOGY/CYTOLOGY O LAZ Performing Organization Address [facility] Co de Phone Number RUBEN BENNETT * Specimen to Pathology (NON-OR) (05/20/2013 3:35 PM EDT) AP Specimen 05/20/2013 3:35 PM EDT 05/20/2013 3:35 PM EDT Narrative RUBEN COYLEIUM - 05/20/2013 3:35 PM EDT Specimen requisition ordered. ??Separate Pathology report to follow Tyler Billings MD PATHOLOGY/CYTOLOGY O LAZ Performing Organization Address [facility] Co de Phone Number RUBEN BENNETT documented in this encounter Visit Diagnoses Diagnosis Abnormal pap- Primary Other nonspecific abnormal finding Papanicolaou smear of cervix with low grade squamous intraepithelial lesion (LGSIL) documented in this encounter
--- OUTSIDE RECORDS SUMMARY | 2024-06-10 18:50 | XMS_ITS | Encounter Summary ---
[place] [address] Care Team Providers Care Belt Sander Stone Name Role Phone Anuja Cai APRN Primary Care Provider [phone] Reason for Referral * Consultation (Routine) - Closed Specialty Diagnoses / Procedures Referred By Ehsan patel Referred To Contact Rheumatology Diagnoses Arthralgia, unspecified joint Other chronic pain Other fatigue Other specified abnormal immunological findings in serum Anuja Cai APRN [address] [place] [address] [facility] [address] [place] [phone] Referral ID Status Reason Start Date Expiration Date V isits Requested Visits Authorized [id number] Closed Consult, Test & Treat PCP Updated and/or Approved 02/17/2023 02/17/2024 6 6 Encounter Details Date Type Department Care Team (Latest Contact Info) Description 02/17/2023 Transcribe Orders eDH Incoming Referrals [phone] Anuja Cai APRN [address] [place], [place] [id number] Arthralgia, unspecified joint; Other chronic pain; Other fatigue; Other specified abnormal immunological findings in serum Social History Tobacco Use Types Packs/Day Years [...] 12:00 PM EDT Office [place] [address] Britt Zurita MD [facility] [place] [address] Scheduled Referrals Name Type Priority Associated Diagnoses Orde r Schedule Referral to Rheumatology Outpatient Referral Routine Arthralgia, unspecified joint Other chronic pain Other fatigue Other specified abnormal immunological findings in serum Ordered: 02/17/2023 documented as of this encounter Visit Diagnoses Diagnosis Arthralgia, unspecified joint Other chronic pain Other fatigue Other specified abnormal immunological findings in serum documented in this encounter Care Teams Belt Sander Stone Relationship Specialty Start Date End Date Anuja Cai APRN [address] [place] [address] PCP - General Internal Medicine 07/25/21 documented as of this encounter
--- OUTSIDE RECORDS SUMMARY | 2024-06-10 18:50 | XMS_ITS | Encounter Summary ---
Author Organization [facility] [place] [address] Care Team Providers Care Bit Gatherer Name Role Phone Unavailable Primary Care Provider Unavailabl e Reason for Referral * Consultation (Urgent) - Closed Specialty Diagnoses / Procedures Referred By Contmaya t Referred To Contact Otolaryngology Diagnoses Strep pharyngitis Kassy Toscano MD [facility] EMERGENCY [place] [address] [facility] [place] Otolaryngology [address] [place] [phone] Referral ID Status Reason Start Date Expiration Date V isits Requested Visits Authorized [id number] Closed Specialty Service Requested 03/09/2013 09/05/2013 1 1 Reason for Visit * Reason Comments Throat Pain Encounter Details Date Type Department Care Team (Late st Contact Info) Description 03/09/2013 1:53 AM EDT - 03/09/2013 3:07 AM EDT Emergency [place] [address] Kassy Toscano MD [facility] EMERGENCY [place] [address] Strep pharyngitis (Primary Dx) Discharge Disposition: Home Social History [...] Sign Reading Time Taken Comments Blood Pressure 112/66 03/09/2013 2:02 AM EDT Pulse 88 03/09/2013 2:02 AM EDT Temperature 37.1 ??C (98.8 ??F) 03/09/2013 2:02 AM ED T Respiratory Rate 16 03/09/2013 2:02 AM EDT Oxygen Saturation 99% 03/09/2013 2:02 AM EDT Inhaled Oxygen Concentration - - Weight - - Height - - Body Mass Index - - documented in this encounter Discharge Instructions * Discharge Instructions* Kassy Toscano MD - 03/09/2013 2:51 AM EDT A referral has been made for you to the ear nose and throat doctors to followup on your recurrent sore throats. You may take the pain medication as prescribed. You may fill the antibiotics if you choose to do so. * Attachments The following attachments cannot be sent through Care Everywhere. * STREP THROAT: AFTER YOUR VISIT (BURKINAN) documented in this encounter Medications at Time of Discharge Medication Sig Dispensed Refills Start Date End Date levothyroxine (SYNTHROID) 88 mcg tablet Take 88 mcg by mouth daily. 04/14/2013 omeprazole (PRILOSEC) 20 mg capsule Take 40 mg by mouth daily. 03/22/2013 OXYcodone (ROXICODONE) 5 mg/5 mL solution Take 5-10 mLs by mouth every 4 hours as needed for Pain. 150 mL 0 03/09/2013 03/22/2013 azithromycin (ZITHROMAX) 250 mg tablet Take 2 tablets on the first day, then 1 tablet each day for the next 4 days 6 tablet 0 03/09/2013 03/22/2013 documented as of this encounter ED Notes * Effie Vega RN - 03/09/2013 3:07 AM EDT Pt given discharge instructions. Verbalized understanding. * Kassy Toscano MD - 03/09/2013 2:43 AM EDT Chief Complaint Patient presents with ??? Throat Pain I saw this patient at approximately 2:30 AM The history is provided by the patient and medical records. No speech/language therapist was used. 32-year-old female presents emergency department for evaluation of 48 hours of dysphasia and odynophagia. She states that she has a long history of recurrent throat infections. She states that in thepast they were usually strep negative but she had an episode approximately 6 weeks ago which was strep positive. She complains of myalgias, subjective fevers. Some nausea. No cough. She said this episode began after her daughter was ill. She has never seen an ear nose and throat doctor for this. She states that she happens to get approximately 3-4 episodes per year. She's felt fatigued with myalgias. No chest pain or difficulty breathing. No change in bowel or bladder function. No other associat ed symptoms. She's been taking ibuprofen without significant relief. No other aggravating or alleviating features. No Known Allergies Review of Systems Constitutional: Positive for fever. HENT: Positive for sore throat. Respiratory: Negative for cough and shortness of breath. Gastrointestinal: Positive for nausea. Negative for vomiting. Genitourinary: Negative. Musculoskeletal: Negative. Hematological: Positive for adenopathy. Physical Exam Nursing note and vitals reviewed. Constitutional: She is oriented to person, place, and time. She appears well- developed and well-nourished. HENT: Head: Normocephalic and atraumatic. Mouth/Throat: Oropharynx is clear and moist. Inflamed posterior oropharynx with mild tonsillar large blood with exudates bilaterally. Uvula midline. Eyes: Conjunctivae and EOM are normal. Pupils are equal, round, and reactive to light. Neck: Normal range of motion. Moderate bilateral tender submandibular lymphadenopathy Cardiovascular: Normal rate. Pulmonary/Chest: Effort normal. No respiratory distress. Lymphadenopathy: She has cervical adenopathy. Neurological: She is alert and oriented to person, place, and time. Skin: Skin is warm and dry. Psychiatric: She has a normal mood and affect. Her behavior is normal. Judgment and thought contentnormal. Procedures MDM ED Course: 32-year-old female with exudative pharyngitis. Has a history of strep. Rapid strep care was positive. I discussed with her the pros and cons of symptomatic management plus or minus antibiotics. Plan will be symptomatically management. I will give her prescription for antibiotics which she will fillat her discretion. I will make a referral to ENT for her given recurrent pharyngitis. No evidence of peritonsillar abscess at this time. Do not suspect mononucleosis. Kassy Toscano MD 03/09/13 0248 Kassy Toscano MD 03/09/13 0249 documented in this encounter Miscellaneous Notes * Discharge Summary - Nacho Joseph - 03/09/2013 10:13 AM EDT * ED Triage - Effie Vega RN - 03/09/2013 2:05 AM EDT Pt c/o sore throat, fever, and body aches since Thursday. Skin pwd, Resps equal and non labored. documented in this encounter Plan of Treatment Upcoming Encounters Date Type Department Care Team (Late st Contact Info) Description 08/17/2024 12:00 PM EDT [place] [address] Britt Zurita MD [facility] [place] [address] Scheduled Referrals Name Type Priority Associated Diagnoses Orde r Schedule Referral to ENT Outpatient Referral Routine Strep pharyngitis Ordered: 03/09/2013 documented as of this encounter Procedures Procedure Name Priority Date/Time Associated Diagnosis Comments POCT RAPID STREP A STAT 03/09/2013 2: 46 AM EDT documented in this encounter Results * POCT rapid strep A (03/09/2013 2:46 AM EDT) POC Grp A Strep Positive (none) POC Control Internal Controls Acceptable (none) Kassy Toscano MD POINT OF CARE TEST ORDERABLES documented in this encounter Visit Diagnoses Diagnosis Strep pharyngitis- Primary Streptococcal sore throat documented in this encounter Administered Medications Inactive Administered Medications - up to 3 most recent administrations Medication Order MAR Action Action Date Dose Rate Site dexamethasone (DECADRON) injection 10 mg 10 mg, Oral, ONCE, 1 dose, On Thu03/09/13 at 0315, STAT Given 03/09/2013 3:05 AM EDT 10 mg ketorolac (TORADOL) injection 60 mg 60 mg, Intramuscular, ONCE, 1 dose, On Thu03/09/13 at 0315, STAT Given 03/09/2013 3:05 AM EDT 60 mg documented in this encounter Active and Recently Administered Medications Times are shown in EDT. Scheduled Medication Order 03/07/2013 03/08/2013 03/09/2013 dexamethasone (DECADRON) injection 10 mg (COMPLETED) 10 mg, Oral, ONCE, 1 dose, On Thu03/09/13 at 0315, STAT 0305 (Given - Provid er: Effie Vega RN) ketorolac (TORADOL) injection 60 mg (COMPLETED) 60 mg, Intramuscular, ONCE, 1 dose, On Thu03/09/13 at 0315, STAT 0305 (Given - Provid er: Effie Vega RN) documented in this encounter
--- OUTSIDE RECORDS SUMMARY | 2024-06-10 18:50 | XMS_ITS | Encounter Summary ---
Author Organization [facility] [place] [id number] Care Team Providers Care Bridge Repair Crew Person Name Role Phone Anuja Cai APRN Primary Care Provider + [phone] Reason for Visit * Diagnostic Test (Routine) - Closed Specialty Diagnoses / Procedures Referred By Ehsan patel Referred To Contact Gastroenterology Diagnoses Heartburn EGD/Waters ON PPI - heartburn Procedures Waters Capsule pH Test EGD/Waters ON PPI - heartburn Carla Jose INTERNAL SALES ENGINEER [facility] [place] [address] [facility] [address] [place] [address] Referral ID Status Reason Start Date Expiration Date V isits Requested Visits Authorized [id number] Closed Consult, Test & Treat 08/19/2021 08/19/2022 1 1 Encounter Details Date Type Department Care Team (Latest Contact Info) Description 09/30/2021 1:00 PM EST Procedure [place] [address] Heartburn; Chest pain, unspecified type; Gastric ulcer, unspecified chronicity, unspecified whether gastric ulcer hemorrhage or perforation present; Incontinence of feces with fecal urgency; Steatorrhea; Diarrhea, unspecified type; Irritable bowel syndrome, unspecified type; Hiatal hernia; [...] as of this encounter Progress Notes * Nam White LPN - 09/30/2021 1:00 PM EST Prior to placement of the Waters pH capsule, a description of the procedure was provided to the patient. All questions were answered and the patient verbalized understanding. Written instructions weregiven to the patient as well. At 1326 the Waters device was inserted without the endoscope in place. The Waters pH capsule was thendeployed by Dr. Rock following the EGD procedure. The capsule was placed 30cm from the incisors without difficulty and was visualized via the endoscope with good attachment to the esophageal wall. This study is being performed on acid suppressants. First pH: 6.8 * Qasim Yang MD - 09/30/2021 1:00 PM EST Wireless pH-metry (Waters) procedure report Patient: Teri Smith Address: [address] [place] [id number] : 1980 Referring provider: Anuja Cai Date of service: 10/07/21 Indication: heartburn Procedure: The Waters probe was placed in the usual fashion 6cm above the gastroesophageal junction. The patient was instructed to keep a diary of symptoms, and returned 2 days later for downloading the data. Testing performed ON omeprazole 40mg twice daily acid-suppressive therapy. Analysis Duration Total (HH:MM): 48:00 Analysis Duration Upright (HH:MM): 28:47 Analysis Duration Supine (HH:MM): 19:13 Acid exposure time (AET): Day 1 Day 2 Overall Total distal esophageal acid exposure time % of testing period 17.4 0.0 8.7 Upright distal esophageal acid exposure time % of testing period 12.1 0.0 5.9 Supine distal esophageal acid exposure time % of testing period 24.3 0.0 12.6 DeMeester Score: 37.8 (normal: <14.7) Normal values for total 48-hour average-day acid exposure time (AET) defined as the % of time with a pH <4 Evidence for pathologic reflux: AET ?5.1% No convincing evidence of pathologic reflux: AET <5.1% Normal values for worst-day acid exposure time (AET) defined as the % of time with a pH <4 Conclusive evidence for pathologic reflux: AET >7.0% Borderline or inconclusive evidence for pathologic reflux: AET 4.0% to 7.0% Evidence against pathologic reflux: AET <4.0% Reflux symptom association (RSA): SYMPTOM EVENTS SYMPTOM INDEX (SI) Symptom Associated Probability (SAP) Heartburn 4 25.0 69.9 Chest pain 150 3.3 0.0 Regurgitation 1 0.0 0.0 Interpretation of reflux symptom association (RSA) Positive association: Symptom Associated Probability [SAP] > 95% AND Symptom Index [SI] > 50% No convincing association: Symptom Associated Probability [SAP] > 95% OR Symptom Index [SI] >50% No evidence of association: Symptom Associated Probability [SAP] < 95% AND Symptom Index [SI] < 50% Impression based on the Schuster classification: Discordant evidence for reflux (evidence of pathologic reflux on day 1 but no evidence of pathologic reflux on day 2). No evidence of association between reflux and recorded symptoms. Ultimately there may be GERD, but there is no evidence that this is causing the patient's symptoms. References: 1) Modern diagnosis of GERD: the Schuster Consensus. Gut. 2018 May; 67(7): 3014-5359. 2) Validation of the Schuster classification for GORD diagnosis: acid exposure time assessed by prolonged wireless pH monitoring in healthy controls and patients with erosive oesophagitis. Gut. 2020. doi10.1136/ijfovb-5489-110700. Qasim Yang MD Section of Gastroenterology and Hepatology [facility] [place] [address] V: [phone] F: [phone] CC/ETC: Anuja Cai, INTERNAL SALES ENGINEER [address] [place] [address] documented in this encounter Plan of Treatment Upcoming Encounters Date Type Department Care Team (Late st Contact Info) Description 08/17/2024 12:00 PM EDT Office [place] [address] [facility] [place] [address] documented as of this encounter Procedures Procedure Name Priority Date/Time Associated Diagnosis Comments CRYPTOSPORIDIUM OOCYST ANTIGEN ([facility]) Routine 09/29/2021 3:30 PM EST Heartburn Chest pain, unspecified type Gastric ulcer, unspecified chronicity, unspecified whether gastric ulcer hemorrhage or perforation present Incontinence of feces with fecal urgency Steatorrhea Diarrhea, unspecified type Irritable bowel syndrome, unspecified type Hiatal hernia Gastroesophageal reflux disease, unspecified whether esophagitis present HC GIARDIA ANTIGEN YONATHAN METHOD Routine 09/29/2021 3:30 PM EST Heartburn Chest pain, unspecified type Gastric ulcer, unspecified chronicity, unspecified whether gastric ulcer hemorrhage or perforation present Incontinence of feces with fecal urgency Steatorrhea Diarrhea, unspecified type Irritable bowel syndrome, unspecified type Hiatal hernia Gastroesophageal reflux disease, unspecified whether esophagitis present GIARDIA ANTIGEN ([facility]/[place]) Routine 09/29/2021 3:30 PM EST Heartburn Chest pain, unspecified type Gastric ulcer, unspecified chronicity, unspecified whether gastric ulcer hemorrhage or perforation present Incontinence of feces with fecal urgency Steatorrhea Diarrhea, unspecified type Irritable bowel syndrome, unspecified type Hiatal hernia Gastroesophageal reflux disease, unspecified whether esophagitis present documented in this encounter Results * Cryptosporidium Oocyst Antigen ([facility]) (09/29/2021 3:30 PM EST) Cryptosporidium Antigen Negative Negative [facility] Stool 09/29/2021 3:30 PM EST 09/30/2021 1:35 PM EST Narrative Resulting Agency Comment Spec In Lab Carla Jose INTERNAL SALES ENGINEER MICROBIOLOGY - GENE RAL ORDERABLES Performing Organization Address [facility] Co de Phone Number [facility] [place] [address] * Giardia antigen ([facility]/CGP/APD/[facility]) (09/29/2021 3:30 PM EST) Giardia Antigen Negative Negative [facility] Comment:Examination for othe r intestinal parasites requires foreign travel history. Stool 09/29/2021 3:30 PM EST 09/30/2021 1:35 PM EST Narrative Resulting Agency Comment Spec In Lab Carla Jose INTERNAL SALES ENGINEER MICROBIOLOGY - GENE RAL ORDERABLES Performing Organization Address [facility] Co de Phone Number [facility] [place] [address] documented in this encounter Visit Diagnoses Diagnosis Heartburn Chest pain, unspecified type Gastric ulcer, unspecified chronicity, unspecified whether gastric ulcer hemorrhage or perforation present Incontinence of feces with fecal urgency Steatorrhea Other specified intestinal malabsorption Diarrhea, unspecified type Irritable bowel syndrome, unspecified type Hiatal hernia Diaphragmatic hernia without mention of obstruction or gangrene Gastroesophageal reflux disease, unspecified whether esophagitis present documented in this encounter Additional Health Concerns Infection Onset Date Last Indicated Resolved Time Rule Out C. difficile 09/30/2021 09/29/20212020 12:58 PM EST documented as of this encounter Care Teams Bridge Repair Crew Person Relationship Specialty Start Date End Date Anuja Cai APRN [address] [place] [address] PCP - General Internal Medicine 07/25/21 documented as of this encounter
--- OUTSIDE RECORDS SUMMARY | 2024-06-10 18:50 | XMS_ITS | Encounter Summary ---
Author Organization [facility] [place] [address] Care Team Providers Care Lead Atg Developer Name Role Phone Anuja Cai APRN Primary Care Provider + [phone] Encounter Details Date Type Department Care Team (Latest Contact Info) Description 08/23/2021 9:05 AM EDT Laboratory Appointment Lab [address] [place] [address] Heartburn; Chest pain, unspecified type; Gastric ulcer, [...] 12:00 PM EDT Office [place] [address] Britt Zurita MD [facility] [place] [address] documented as of this encounter Procedures Procedure Name Priority Date/Time Associated Diagnosis Comments HEMOGRAM Routine 08/23/2021 9:24 AM EDT Heartburn Chest pain, unspecified type Gastric ulcer, unspecified chronicity, unspecified whether gastric ulcer hemorrhage or perforation present Incontinence of feces with fecal urgency Steatorrhea Diarrhea, unspecified type Irritable bowel syndrome, unspecified type Hiatal hernia Gastroesophageal reflux disease, unspecified whether esophagitis present DIFFERENTIAL, AUTOMATED Routine 08/23/2021 9:24 AM EDT Heartburn Chest pain, unspecified type Gastric ulcer, unspecified chronicity, unspecified whether gastric ulcer hemorrhage or perforation present Incontinence of feces with fecal urgency Steatorrhea Diarrhea, unspecified type Irritable bowel syndrome, unspecified type Hiatal hernia Gastroesophageal reflux disease, unspecified whether esophagitis present HC CBC,PLT & AUTO DIFF Routine 08/23/2021 9:24 AM EDT Heartburn Chest pain, unspecified type Gastric ulcer, unspecified chronicity, unspecified whether gastric ulcer hemorrhage or perforation present Incontinence of feces with fecal urgency Steatorrhea Diarrhea, unspecified type Irritable bowel syndrome, unspecified type Hiatal hernia Gastroesophageal reflux disease, unspecified whether esophagitis present HC VENIPUNCTURE Routine 08/23/2021 9:24 AM EDT Heartburn Chest pain, unspecified type Gastric ulcer, unspecified chronicity, unspecified whether gastric ulcer hemorrhage or perforation present Incontinence of feces with fecal urgency Steatorrhea Diarrhea, unspecified type Irritable bowel syndrome, unspecified type Hiatal hernia Gastroesophageal reflux disease, unspecified whether esophagitis present documented in this encounter Results * Differential, Automated (08/23/2021 9:24 AM EDT) Neutrophil % 67.6 % [facility] Neutrophil Absolute 4.91 1.70 - 6.10 x10(3)/[facility] Lymph % 21.7 % [facility] Lymphocytes Abs 1.6 0.9 - 3.2 x10(3)/[facility] Monocyte % 8.4 % [facility] Monocyte Abs 0.6 0.3 - 0.9 x10(3)/[facility] Eos % 1.5 % [facility] Eosinophils Abs 0.1 0.0 - 0.4 x10(3)/[facility] Basophil % 0.4 % [facility] Baso Absolute 0.0 0.0 - 0.1 x10(3)/[facility] Immature Gran % 0.40 % [facility] Comment: Immature granulocytes(IG's)percentage and absolute count will include metamyelocytes, myelocytes, and promyelocytes. Blood smears from CBCs yielding IG's will be scanned manually for concordance. If this scan disagrees with the automated IG or if promyelocytes are noted, a manual differential will be performed. Immature Gran Absolute 0.03 0.00 - 0.04 x10(3)/[facility] Blood 08/23/2021 9:24 AM EDT 08/23/2021 9:33 AM EDT Narrative Resulting Agency Comment Spec In Lab Carla A Rebeca ENCINAS HEMATOLOGY ORDERABL ES [facility] [place] [address] * (ABNORMAL) Hemogram (08/23/2021 9:24 AM EDT) White Blood Cell 7.3 4.0 - 9.5 x10(3)/mc L [facility] Red Blood Cell 4.56 4.00 - 5.21 x10(6)/mc L [facility] Hemoglobin 12.7 11.7 - 15.5 g/dL [facility] Hematocrit 37.6 35.7 - 45.8 % [facility] Mean Cell Volume 82.5(L) 82.6 - 94.4 fL [facility] Mean Cell Hemoglobin 27.9 27.1 - 32.0 pg [facility] Mean Cell Hemoglobin Concentration 33.8 31.7 - 35.0 g/dL [facility] Platelet 359(H) 145 - 357 x10(3)/mc L [facility] RDW Standard Deviation 39.0 37.0 - 46.0 fL [facility] RDW coefficient of variation 13.0 11.5 - 14.1 % [facility] Mean Platelet Volume 10.1 7.6 - 12.9 fL [facility] NRBC% auto 0.0 % [facility] NRBC Absolute 0.000 0.000 - 0.000 x10(3)/mc L [facility] Blood 08/23/2021 9:24 AM EDT 08/23/2021 9:33 AM EDT Narrative Resulting Agency Comment Spec In Lab Carla Jose HUANG HEMATOLOGY ORDERABL ES [facility] [place] [address] * Basic Metabolic Panel (non-fasting) (08/23/2021 9:24 AM EDT) Glucose 108 65 - 199 mg/dL [facility] Comment:Diabetes: >=200 mg/d L plus symptoms Blood Urea Nitrogen 15 8 - 18 mg/dL [facility] Creatinine 1.09 0.70 - 1.20 mg/dL [facility] Sodium 140 135 - 145 mmol/L [facility] Potassium 3.6 3.5 - 5.0 mmol/L [facility] Comment: Please note: ??Patients with WBC >100,000 may have falsely elevated Potassium levels. ??For accurate Potassium quantification in these patients send serum separator tube (gold top) for subsequent determinations. ??Contact the Clinical Chemistry Laboratory if there are any questions. Chloride 101 98 - 107 mmol/L [facility] Carbon Dioxide 28 22 - 31 mmol/L [facility] Anion Gap 11 5 - 15 mmol/L [facility] Calcium 9.5 8.5 - 10.5 mg/dL [facility] Est Glomerular Filtration Rate 63 >=60 mL/min/1. 73 m?? [facility] Comment: This patient? s estimated glomerular [...] Lab Carla Jose APRN CHEMISTRY ORDERABLE S [facility] [place] [address] documented in this encounter Visit Diagnoses Diagnosis [...] present documented in this encounter Care Teams Lead Atg Developer Relationship Specialty Start Date End Date Anuja Cai APRN [address] [facility] [place] [address] PCP - General Internal Medicine 07/25/21 documented as of this encounter
--- OUTSIDE RECORDS SUMMARY | 2024-06-10 18:50 | XMS_ITS | Encounter Summary ---
Author Organization Formerly [facility] [place] [address] Care Team Providers Care Victim Advocate Name Role Phone Unavailable Primary Care Provider Unavailabl e Reason for Visit * Reason Comments Pharyngitis Encounter Details Date Type Department Care Team ([facility] st Contact Info) Description 03/24/2013 2:15 PM EDT Office [place] [address] Parvin Bennett RACECOURSE BARRIER ATTENDANT [facility] [place] [address] Pharyngitis (Primary Dx) Discharge Disposition: Home Social History [...] Sign Reading Time Taken Comments Blood Pressure 135/68 03/24/2013 2:30 PM EDT Pulse 66 03/24/2013 2:30 PM EDT Temperature - - Respiratory Rate - - Oxygen Saturation - - Inhaled Oxygen Concentration - - Weight 71.2 kg (157 lb) 03/24/2013 2:30 PM EDT Height 165.1 cm (5' 5) 03/24/2013 2:30 PM EDT Body Mass Index 26.13 03/24/2013 2:30 PM EDT documented in this encounter Progress Notes * Parvin Bennett APRN - 03/24/2013 2:43 PM EDT Otolaryngology Outpatient Consultation Note Date of Visit: 03/24/2013 Location of Visit: Otolaryngology Clinic, [facility] Patient: Teri Haro ([id number] ; 1980 Primary Care Provider: VIJAY RICHARDSON APRN Referring Provider: Kassy Toscano Reason for Visit: Teri is a 32 y.o. female with c/o pharyngitis x 1-2 years seen at the request ofKassy Toscano. History of Present Illness: Teri presents with c/o pharyngitis x 1-2 years. Last year she had multiple tonsillitis infections. She had been tested for strep but it was negative. She recently has had2 strep pharyngitis in the last few months. She was treated earlier this month for the last strep pharyngitis. Teri states when she gets the infections her tonsils become enlarged, she develops fevers, and lymphadenopathy. Until a 1 1/2 years ago she has no other hx of pharyngitis issues. Teri has no known exposure to strep. 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 Teri does smoke 1 pack/day x 14 years. She would like to quit. Teri does have a hx of chronic fatigue, reflux with hiatal hernia. She is currently taking Omeprazole 40 mg /day and feels that does control her reflux symptoms. Past Medical History: Other then above, night sweats, Hashimotto disease, Past Surgical History: Past Surgical History Procedure Date ??? [place] tooth extraction Medications: Current Outpatient Prescriptions on File Prior to Visit Medication Sig Dispense Refill ??? omeprazole (PRILOSEC) 40 mg capsule Take 1 capsule by mouth daily. 30 capsule 11 ??? levothyroxine (SYNTHROID) 88 mcg tablet Take 88 mcg by mouth daily. Allergies: Review of patient's allergies indicates no known allergies. Social History: Teri Haro lives in [facility] [id number]. She has a 5 year old child. She dos Family History: Family History Problem Relation Age of Onset ??? Thyroid Disease Mother ??? Aneurysm Mother Brain ??? Diabetes Father type ii ??? Heart Disease Father ??? Cancer Maternal Aunt thyroid cancer 2 aunts ??? Thyroid Disease Maternal Aunt ??? Diabetes Maternal Grandmother type II ??? Heart Disease Maternal Grandmother ??? Cancer Paternal Grandfather colon cancer ??? Asthma Neg Hx Review of Systems: Pertinent positive findings discussed above. No other findings on review of constitutional, visual, cardiovascular, respiratory, gastrointestinal, genitourinary, musculoskeletal, dermatologic, neurological, psychiatric, endocrine, hematologic or immunologic systems. Physical Examination: Vitals: Blood pressure 135/68, pulse 66, height 165.1 cm (5' 5), weight 71.215 kg (157 lb), last menstrual period 03/01/2013. General: A pleasant 32 y.o. In no acute distress. Face: Full and symmetric facial movement. No dysmorphic facial features. Eyes: Periocular structures and conjunctiva healthy without lesions. Pupils are equal, round, and reactive to light. Extraocular movement is full and intact. No dysconjugate gaze. No evidence of nystagmus. Ears: Auricles symmetric without lesions. External auditory canals clear. Right tympanic membrane clear. right middle ear well aerated. Left tympanic membrane clear. left middle ear well aerated. Nose: Patent anteriorly with adequate airflow, healthy pink mucosa. Septum is midline without significant deviation. Inferior turbinates wnl Mouth: Lips and gingiva pink, moist, without lesions. Age-appropriate dentition healthy. Tongue andfloor of mouth soft without lesions or masses. Hard palate without lesions. Pharynx: Soft palate without lesions. Uvula is intact without evidence of submucus cleft palate. Oropharynx symmetric, tonsils 1+. A throat culture was obtained. Neck: Soft, supple, without significant lymphadenopathy. Thyroid gland without masses or asymmetry.Trachea midline without deviation. Lungs: Clear to auscultation bilaterally without wheezes. Heart: Regular rate and rhythm without murmur. Extremities: Warm, well-perfused, mobile, and sensate. Lymphatic: Negative for additional peripheral lymphadenopathy or lymphedema. Neurologic: Cranial nerves II-XII intact and symmetric. Impression: 1) Hx of pharyngitis/tonsillits. Recommendations: I did obtain a throat culture today. I will call Teri with the results. At this time Teri does not qualify for a tonsillectomy. I have asked her to monitor for ongoing infections. I did encourage her to stop smoking. I will see her back in 4-5 months for a recheck of her symptomsor sooner if needed. Parvin NARANJO [place], [place] [address] Office documented in this encounter Plan of Treatment Upcoming Encounters Date Type Department Care Team (Late st Contact Info) Description 08/17/2024 12:00 PM EDT Office [place] [address] Britt Zurita MD [facility] [place] [address] documented as of this encounter Procedures Procedure Name Priority Date/Time Associated Diagnosis Comments UPPER RESPIRATORY CULTURE Routine 03/24/2013 3:20 PM EDT Pharyngitis documented in this encounter Results * Upper Respiratory Culture Throat (03/24/2013 3:20 PM EDT) Upper Respiratory Culture ? Patient Name: TERI HARO ?Ordered By: OSCAR NELSON ? MR#: [id number] ?LOC: ??4F ? /Sex: ??1980 (32 years), ? Female ? PROCEDURE: Upper Respiratory Culture ?SOURCE: Throat ? COLLECTED: 03/24/2013 15:20 ? STARTED: 03/24/2013 15:20 ? FINAL REPORT ? Final Report ? Verified:2012 10:00 ? No beta hemolytic Streptococci isolated ? PRELIMINARY REPORT ? Preliminary Report ? Verified:2012 09:37 ? No beta hemolytic Streptococci isolated to date ? RUBEN COYLEIUM Specimen from throat (specimen) 03/24/2013 3:20 PM EDT 03/24/2013 3:20 PM EDT Narrative Resulting Agency Comment Spec In Lab Oscar Nelson MD MICROBIOLOGY - [facility] ORDERABLES RUBEN BENNETT documented in this encounter Visit Diagnoses Diagnosis Pharyngitis- Primary Acute pharyngitis documented in this encounter
== END 2024-06-10 18:44 | disposition home or self-care (01) ==
LOC: LBN 18:43
PROVIDERS: PCP Nurse Practitioner; Visit Provider Nurse Practitioner Women's Health
DX: Z11.3 Encounter for screening for infections with a predominantly sexual mode of transmission (principal); N92.3 Ovulation bleeding; R10.2 Pelvic and perineal pain
CPT/HCPCS: 87491; 87591

== ENCOUNTER 2024-06-14 02:06 | Outpatient (CLI) | payer MEDICAID, SELFPAY ==
--- OUTSIDE RECORDS SUMMARY | 2024-06-14 02:08 | XMS_ITS | Encounter Summary ---
Author Organization [facility] Address [address] [place] [address] Care Team Providers Care Slurry Tank Tender Name Role Phone Kaylynn Gimenez MD Primary Care Provider + [phone] Reason for Visit * Reason Onset Date Comments Appointment Related 02/04/2023 Encounter Details Date Type Department Care Team (Late st Contact Info) Description 02/04/2023 Telephone [facility] Endocrinology - [address] [address] Hina Townsend MD [address] [place] [phone] Appointment Related Social History Tobacco Use [...] RN - 02/04/2023 0937 EDT Routing to [facility] A[facility]. Gilma Puente, RN * Telephone Encounter - Susu Pantoja - 02/04/2023 0727 EDT Patient is calling to reschedule her appointment with Dr. Townsend for today at 1130, This is due tothe weather. Please call back to reschedule. documented in this encounter Plan of Treatment Upcoming Encounters Date Type Department Care Team (Late st Contact Info) Description 12/29/2024 10:20 EST Office Visit [facility] Rheumatology & Immunology - [address] [address] Micaela Hoff MD [address] [facility], [address] [place] [phone] documented as of this encounter Visit Diagnoses Not on filedocumented in this encounter Additional Health Concerns Infection Onset Date Last Indicated Resolved Time 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 Care Teams Slurry Tank Tender Relationship Specialty Start Date End Date Kaylynn Gimenez MD [address] [place] [phone] PCP - General 03/02/15 documented as of this encounter
--- OUTSIDE RECORDS SUMMARY | 2024-06-14 02:08 | XMS_ITS | Encounter Summary ---
Author Organization [facility] Address [address] [place] [address] Care Team Providers Care Upper Marker Name Role Phone None, Provider Primary Care Provider Unavailabl e Reason for Visit * Reason Onset Date Comments Appointment Related 09/27/2014 Encounter Details Date Type Department Care Team (Late st Contact Info) Description 09/27/2014 Telephone [facility] Obstetrics & Midwifery - [facility] [address] [place], [place] [phone] Soledad Crawley, RN Appointment Related Social History [...] Encounter - Soledad Crawley RN - 09/27/2014 1050 EST Call to Teri to discuss her plans moving forward- has cancelled/no-showed last two appointments. No answer, detailed phone message left on house voicemail. Call to [facility] falafel cart cook to inquire- patient has been receiving routine care at their office and plans to deliver in [place]- does not plan on coming back to [place] for appointments/delivery unless she has to (ie: she goes into [facility]). Offered to fax patient's records for continuity of care- [facility] has all of patient'srecords. documented in this encounter Plan of Treatment Upcoming Encounters Date Type Department Care Team (Late st Contact Info) Description 12/29/2024 10:20 EST Office Visit [facility] Rheumatology & Immunology - [address] [address] Micaela Hoff MD 111 [facility], [address] [place] [address] documented as of this encounter Visit Diagnoses Not on filedocumented in this encounter Additional Health Concerns Infection Onset Date Last Indicated Resolved Time 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 Care Teams Upper Marker Relationship Specialty Start Date End Date None, Provider PCP - General 06/09/14 03/01/15 documented as of this encounter
--- OUTSIDE RECORDS SUMMARY | 2024-06-14 02:08 | XMS_ITS | Encounter Summary ---
Author Organization [facility] Address [address] [place] [address] Care Team Providers Care Underwater Hunter Trapper Name Role Phone Kaylynn Gimenez MD Primary Care Provider + [phone] Reason for Visit * Reason Onset Date Comments Returning Call 06/06/2022 Encounter Details Date Type Department Care Team (Late st Contact Info) Description 06/06/2022 Telephone [facility] Endocrinology - [facility] [address] [place] [address] Susan Hensley MD [address] [facility] [address] [place] [address] Returning Call Social History Tobacco [...] 1303 EDT Taking care of in 06/03/22 Living Cell Technologiest message. Gilma Puente RN * Telephone Encounter - Gold Chrisjeane - 06/06/2022 1029 EDT The patient is returning a call to the nurse documented in this encounter Plan of Treatment Upcoming Encounters Date Type Department Care Team (Late st Contact Info) Description 12/29/2024 10:20 EST Office Visit [facility] Rheumatology & Immunology - [address] [address] Micaela Hoff MD 111 [facility], [address] [place] [phone] documented as of this encounter Visit Diagnoses Not on filedocumented in this encounter Additional Health Concerns Infection Onset Date Last Indicated Resolved Time 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 Care Teams Underwater Hunter Trapper Relationship Specialty Start Date End Date Kaylynn Gimenez MD [address] [place] [phone] PCP - General 03/02/15 documented as of this encounter
--- OUTSIDE RECORDS SUMMARY | 2024-06-14 02:08 | XMS_ITS | Encounter Summary ---
Author Organization [facility] Address [address] [place] [address] Care Team Providers Care Family Day Carer Name Role Phone Kaylynn Gimenez MD Primary Care Provider + [phone] Encounter Details Date Type Department Care Team (Late st Contact Info) Description 02/11/2017 13:00 EDT - 02/11/2017 23:59 EDT Hospital Encounter [facility] - Other [address] [place] [address] Robert Koo MD 111 [facility], [address] [place] [address] Discharge Disposition: Auto Discharge Social [...] [facility] Rheumatology & Immunology - [address] [address] Micaela Hoff MD [address] [place] [address], [address] [place] [phone] documented as of this encounter Visit Diagnoses Not on filedocumented in this encounter Additional Health Concerns Infection Onset Date Last Indicated Resolved Time 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 Care Teams Family Day Carer Relationship Specialty Start Date End Date Kaylynn Gimenez MD [address] [place] [phone] PCP - General 03/02/15 documented as of this encounter
--- OUTSIDE RECORDS SUMMARY | 2024-06-14 02:08 | XMS_ITS | Encounter Summary ---
Author Organization [facility] Address [address] [place] [address] Care Team Providers Care Television Receiver Analyzer Name Role Phone Kaylynn Gimenez MD Primary Care Provider + [phone] Encounter Details Date Type Department Care Team (Late st Contact Info) Description 07/20/2020 Lab Requisition [facility] Pathology & Laboratory Medicine [address] [address] Duyen Mcdowell MD [facility] [place], [place] [address] Encounter for other general examination Social History [...] [facility] Rheumatology & Immunology - [address] [address] Micaela Hoff MD 111 [facility], [address] [place] [phone] documented as of this encounter Procedures Procedure [...] types, PCR Negative Negative 07/25/2020 23:43 EDT [facility] Comment:No E6 or E7 mRNA is detected from HPV types 16,18,31,33,35,39,45,51,52,56,58,59,66, and 68 by airframe design engineer mediated amplification. Papanicolaou smear specimen (specimen) CERVIX UTERI STRUCTURE / Unknown 07/19/2020 10:15 EDT 07/24/2020 13:47 EDT Duyen Mcdowell MD MICROBIOLOGY - GENER AL ORDERABLES [facility] [address] [place] [address] * PAP TEST (07/19/2020 10:15 EDT) Specimens A. Cervix and/or Endocervix , ThinPrep Imaging System with Manual Evaluation 07/25/2020 23:43 EDT [facility] Specimen Adequacy Satisfactory for Evaluation - transformation zone component absent 07/25/2020 23:43 EDT [facility] General Categorization Negative for intraepithelial lesion or malignancy 07/25/2020 23:43 T [facility] Attestation . 07/25/2020 23:43 T [facility] at 2343 Clinical History See below 07/25/20 20 23:43 EDT [facility] HPV The result for the Human Papillomavirus (HPV) Detection-High Risk Types is Negative. No E6 or E7 mRNA is detected from HPV types 16,18,31,33,35,39 ,45,51,52,56,58,5 9,66, and 68 by airframe design engineer mediated amplification.Leonie ting was performed on specimen [id number] and was resulted on 07/25/2020 2255 EDT by JONATHAN, LAB INSTRUMENT RESULTS IN 07/25/2020 23:43 EDT [facility] Performing Lab [facility] 07/25/2020 23:43 EDT [facility] Scanned Images 07/25/2020 23:43 EDT [facility] Papanicolaou smear specimen (specimen) CERVIX UTERI STRUCTURE / Unknown 07/19/2020 10:15 EDT 07/20/2020 9:11 EDT Duyen Mcdowell MD PATHOLOGY ORDERABLES [facility] [address] [place] [address] documented in this encounter Visit Diagnoses Diagnosis Encounter for other general examination documented in this encounter Additional Health Concerns Infection Onset Date Last Indicated Resolved Time 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 Care Teams Television Receiver Analyzer Relationship Specialty Start Date End Date Kaylynn Gimenez MD [facility] [place] [phone] PCP - General 03/02/15 documented as of this encounter
--- OUTSIDE RECORDS SUMMARY | 2024-06-14 02:08 | XMS_ITS | Encounter Summary ---
Author Organization [facility] Address [address] [place] [address] Care Team Providers Care Channel Specialist Name Role Phone Kaylynn Gimenez MD Primary Care Provider + [phone] Encounter Details Date Type Department Care Team (Late st Contact Info) Description 05/31/2021 Lab Requisition [facility] Pathology & Laboratory Medicine [address] [address] Outr Resulting Lab, Provider Social History Tobacco [...] [facility] Rheumatology & Immunology - [address] [phone] Micaela Hoff MD [address] [place] [address], [address] [place] [phone] documented as of this encounter Procedures Procedure Name Priority Date/Time Associated Diagnosis Comments BETA HYDROXYBUTYRATE Routine 05/30/2021 16:05 EDT INSULIN Routine 05/30/2021 16:05 EDT CORTISOL Routine 05/30/2021 16:05 EDT documented in this encounter Results * BETA HYDROXYBUTYRATE (05/30/2021 16:05 EDT) Beta Hydroxybutyrate 0.3 <0.4 mmol/L 05/31/2021 16:06 EDT [facility] Blood VENOUS BLOOD / Unknown 05/30/2021 16:05 EDT 05/31/2021 15:51 EDT Provider Outr Resulting Lab CHEMISTRY & BLOOD GAS ORDERABLES Performing Organization Address [facility] Co de Phone Number [facility] [address] [place] [address] * INSULIN (05/30/2021 16:05 EDT) Pathologist [facility] Insulin 6.4 <29.0 uIU/mL 06/06/2021 10:10 EDT [facility] Comment: Displayed Reference Range applies to fasting specimens only. Blood VENOUS BLOOD / Unknown 05/30/2021 16:05 EDT 05/31/2021 15:51 EDT Provider Outr Resulting Lab CHEMISTRY & BLOOD GAS ORDERABLES Performing Organization Address [facility]/ZIP Co de Phone Number [facility] [address] [place] [address] * CORTISOL (05/30/2021 16:05 EDT) Cortisol 5 See Note ug/dL 05/31/2021 16:31 EDT [facility] Comment: NOTE: Reference Ranges (from [facility] IFU): Collected Before 10:00 AM: ??4 - 23 ug/dL Collected After 5:00 PM: ?2 - 14 ug/dL The results of this assay can be falsely elevated due to the consumption of Biotin. Blood VENOUS BLOOD / Unknown 05/30/2021 16:05 EDT 05/31/2021 15:51 EDT Provider Outr Resulting Lab CHEMISTRY & BLOOD GAS ORDERABLES Performing Organization Address City/State/[facility] Co de Phone Number [facility] [address] [place] [address] documented in this encounter Visit Diagnoses Not on filedocumented in this encounter Additional Health Concerns Infection Onset Date Last Indicated Resolved Time 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 Care Teams Channel Specialist Relationship Specialty Start Date End Date Kaylynn Gimenez MD [address] [place] [phone] PCP - General 03/02/15 documented as of this encounter
--- OUTSIDE RECORDS SUMMARY | 2024-06-14 02:08 | XMS_ITS | Encounter Summary ---
Author Organization [facility] Address [address] [place] [address] Care Team Providers Care Instructional Resource Teacher Name Role Phone None, Provider Primary Care Provider Unavailabl e Reason for Visit * Reason Onset Date Comments Other 07/26/2014 Yeast infection symptoms Encounter Details Date Type Department Care Team (Late st Contact Info) Description 07/26/2014 Orders Only [facility] Obstetrics & Midwifery - [facility] [address] [place] [address] Soledad Crawley, RN Social History Tobacco Use [...] Notes * Soledad Crawley, JANNA - 07/26/2014 142 EDT Call from Teri with complaints of [...] Info) Description 12/29/2024 10:20 EST Office Visit [facility] Rheumatology & Immunology - [address] [address] Micaela Hoff MD [address] [place] [address], [address] [place] [phone] documented as of this encounter Visit Diagnoses Not on filedocumented in this encounter Additional Health Concerns Infection Onset Date Last Indicated Resolved Time 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 Care Teams Instructional Resource Teacher Relationship Specialty Start Date End Date None, Provider PCP - General 06/09/14 03/01/15 documented as of this encounter
--- OUTSIDE RECORDS SUMMARY | 2024-06-14 02:08 | XMS_ITS | Encounter Summary ---
Author Organization [facility] Address [address] [place] [address] Care Team Providers Care Food Preservation Scientist Name Role Phone None, Provider Primary Care Provider Unavailabl e Encounter Details Date Type Department Care Team (Late st Contact Info) Description 08/08/2014 9:06 EDT - 08/08/2014 23:59 EDT Hospital Encounter [facility] [phone] Tasha Torres MD [address] [facility], [address] [place] [phone] Discharge Disposition: Home or Self Care Social [...] [facility] Rheumatology & Immunology - [address] [phone] Micaela Hoff MD [address] [place] [address], [address] [place] [phone] documented as of this encounter Visit Diagnoses Not on filedocumented in this encounter Additional Health Concerns Infection Onset Date Last Indicated Resolved Time 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 Care Teams Food Preservation Scientist Relationship Specialty Start Date End Date None, Provider PCP - General 06/09/14 03/01/15 documented as of this encounter
--- OUTSIDE RECORDS SUMMARY | 2024-06-14 02:08 | XMS_ITS | Encounter Summary ---
Author Organization [facility] Address [address] [place] [address] Care Team Providers Care Maintenance Of Way Superintendent Name Role Phone Kaylynn Gimenez MD Primary Care Provider + [phone] Encounter Details Date Type Department Care Team (Latest Contact Info) Description 09/10/2015 15:36 EST - 09/10/2015 23:59 [facility] Hospital Encounter [address] [address] Unknown, Provider, Discharge Disposition: Home or Self [...] Self Skilled Nursing documented in this encounter Plan of Treatment Upcoming Encounters Date Type Department Care Team (Late st Contact Info) Description 12/29/2024 10:20 EST Office Visit [facility] Rheumatology & Immunology - [address] [address] Micaela Hoff MD [address] [place] [address], [address] [place] [phone] documented as of this encounter Visit Diagnoses Not on filedocumented in this encounter Additional Health Concerns Infection Onset Date Last Indicated Resolved Time 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 Care Teams Maintenance Of Way Superintendent Relationship Specialty Start Date End Date Kaylynn Gimenez MD [address] [place] [phone] PCP - General 03/02/15 documented as of this encounter
--- OUTSIDE RECORDS SUMMARY | 2024-06-14 02:08 | XMS_ITS | Encounter Summary ---
Author Organization [facility] Address [address] [place] [address] Care Team Providers Care Chha Name Role Phone Kaylynn Gimenez MD Primary Care Provider + [phone] Encounter Details Date Type Department Care Team (Late st Contact Info) Description 07/16/2021 Lab Requisition [facility] Pathology & Laboratory Medicine [address] [address] Outr Resulting Lab, Provider Social History Tobacco [...] Description 12/29/2024 10:20 EST Office Visit [facility] Rheumatology & Immunology - [address] [phone] Micaela Hoff MD [address] [place] [address], [address] 5 [place] [phone] documented as of this encounter Procedures Procedure Name Priority Date/Time Associated Diagnosis Comments CELIAC DISEASE PANEL Routine 07/16/2021 12:55 EDT HEPATITIS C AB W REFLEX TO HCV RNA BY PCR Routine 07/16/2021 12:55 EDT documented in this encounter Results * HEPATITIS C AB W REFLEX TO HCV RNA BY PCR (07/16/2021 12:55 EDT) Hep C Antibody Negative Negative 07/17/2021 10:31 EDT [facility] Blood VENOUS BLOOD / Unknown 07/16/2021 12:55 EDT 07/16/2021 21:37 EDT Provider Outr Resulting Lab CHEMISTRY & BLOOD GAS ORDERABLES Performing Organization Address City/State/[facility] Co de Phone Number [facility] [address] [place] [address] * CELIAC DISEASE PANEL (07/16/2021 12:55 EDT) Tissue Transglutaminase Antibody IGA <1.2 <4.0 U/mL 07/17/2021 12:06 EDT [facility] Comment: A negative result may be due to IgA deficiency and does not rule out celiac disease. ? Negative: ??<4.0 U/mL ? Weak Positive: ??4.0 - 10.0 U/mL ? Positive: ??>10.0 U/mL Results were obtained with the [employer] QUANTA Lite R h-tTG IgA YONATHAN assay on the [employer] DSX. IgA 191 85 - 499 mg/dL 07/17/2021 12:06 EDT [facility] Celiac Disease Interpretation Negative Serology. Celiac disease unlikely. Approximately 10% of patients with celiac disease are seronegative. Patients who are already adhering to a gluten-free diet may also be seronegative. If celiac disease is highly clinically suspected, referral to gastroenterology for additional evaluation is recommended. 07/17/2021 12:06 EDT [facility] Blood VENOUS BLOOD / Unknown 07/16/2021 12:55 EDT 07/16/2021 21:37 EDT Provider Outr Resulting Lab IMMUNOLOGY A ND SEROLOGY ORDERABLES Performing Organization Address City/State/[facility] Co de Phone Number [facility] [address] [place] [address] documented in this encounter Visit Diagnoses Not on filedocumented in this encounter Additional Health Concerns Infection Onset Date Last Indicated Resolved Time 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 Care Teams Chha Relationship Specialty Start Date End Date Kaylynn Gimenez MD [address] [place] [phone] PCP - General 03/02/15 documented as of this encounter
--- OUTSIDE RECORDS SUMMARY | 2024-06-14 02:08 | XMS_ITS | Referral Summary ---
Author Organization [facility] Address [address] [place] [address] Care Team Providers Care Junior Network Administrator Name Role Phone Kaylynn Gimenez MD Primary Care Provider + [phone] Encounters Date Type Department Care Team Description 06/09/2024 Lab Requisition [facility] Pathology & Laboratory [facility] [address] [place] [address] Outr Resulting Lab, Provider 03/21/2024 Lab Requisition [facility] Pathology & Laboratory [facility] [address] [place] [address] Outr Resulting Lab, Provider from Last 3 [...] Auto Replacement Hypothyroidism 11/27/2010 04/28/2014 Morbid obesity ([facility]) 11/27/201010/2011 Immunizations Name Administration Dates Next [...] Info) Description 12/29/2024 10:20 EST Office Visit [facility] Rheumatology & Immunology - [address] [address] Micaela Hoff MD [address] [place] [address], [address] 5 [place] [phone] Procedures Procedure Name Priority Date/Time Associated Diagnosis [...] gonorrhoeae Result Negative Negative 06/10/2024 12:11 EDT [facility] Chlamydia trachomatis Result Negative Negative 06/10/2024 12:11 EDT [facility] Swab VAGINAL STRUCTURE / Unknown 06/08/2024 15:45 EDT 06/09/2024 19:46 EDT Provider Outr Resulting Lab MICROBIOLOGY - GENERAL ORDERABLES Performing Organization Address [facility] Co de Phone Number [facility] [address] [place], [place] [phone] * CCP ANTIBODIES (03/21/2024 9:04 EDT) Pathologist [facility] CCP Antibodies <2.5 <5.0 U/mL 03/22/2024 9:26 EDT [facility] Blood VENOUS BLOOD / Unknown 03/21/2024 9:04 EDT 03/21/2024 17:19 EDT Provider Outr Resulting Lab IMMUNOLOGY A ND SEROLOGY ORDERABLES Performing Organization Address [facility] de Phone Number [facility] [address] [place] [address] * RHEUMATOID FACTOR (03/21/2024 9:04 EDT) Pathologist [facility] Rheumatoid Factor 10.5 <12.0 IU/mL 03/21/2024 17:39 EDT [facility] Blood VENOUS BLOOD / Unknown 03/21/2024 9:04 EDT 03/21/2024 17:19 EDT Provider Outr Resulting Lab CHEMISTRY & BLOOD GAS ORDERABLES Performing Organization Address [facility] Co de Phone Number [facility] [address] [place], [place] [phone] * (ABNORMAL) ANTI NUCLEAR AB (LIZZIE), IFA (03/21/2024 9:04 EDT) Pathologist [facility] LIZZIE Interpretation Positive(A) Negative 03/22/2024 14:31 EDT [facility] Comment: For titers greater [...] 1:320 Dense Fine Speckled 03/22/2024 14:31 EDT [facility] Blood VENOUS BLOOD / Unknown 03/21/2024 9:04 EDT 03/21/2024 17:19 EDT Narrative [facility] - 03/22/2024 14:31 EDT Results were obtained with the [employer] NOVA Lite HEp-2 LIZZIE Kit by indirect immunofluorescence. Provider Outr Resulting Lab IMMUNOLOGY A ND SEROLOGY ORDERABLES [facility] [address] [place] [address] * HEPATITIS C AB W REFLEX TO HCV RNA BY PCR (03/14/2022 10:10 EDT) Hep C Antibody Negative Negative 03/17/2022 10:18 EDT [facility] Blood VENOUS BLOOD / Unknown 03/14/2022 10:10 EDT 03/14/2022 17:17 EDT Provider Outr Resulting Lab CHEMISTRY & BLOOD GAS ORDERABLES [facility] [address] [place] [address] from Last 3 Months or Most Recently Relevant to Health Maintenance Additional Health Concerns Infection Onset Date Last Indicated 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 Advance Directives For more information, please contact: [phone] * Full Code (Latest Code Status on File) Date Activated Date Inactivated Comments 07/18/2014 22:50 07/20/2014 11:51 * Full Code Date Activated Date Inactivated Comments 07/18/2014 16:13 07/18/2014 22:50 * Full Code Date Activated Date Inactivated Comments 07/11/2014 13:00 07/11/2014 16:39 * Full Code Date Activated Date Inactivated Comments 06/29/2014 18:01 06/29/2014 20:14 Care Teams Junior Network Administrator Relationship Specialty Start Date End Date Kaylynn Gimenez MD [address] [place] [phone] PCP - General 03/02/15
--- OUTSIDE RECORDS SUMMARY | 2024-06-14 02:08 | XMS_ITS | Encounter Summary ---
Author Organization [facility] Address [address] [place] [address] Care Team Providers Care Office Asst Name Role Phone Kaylynn Gimenez MD Primary Care Provider + [phone] Reason for Visit * Reason Onset Date Comments Medications Refill 07/08/2022 Encounter Details Date Type Department Care Team (Late st Contact Info) Description 07/08/2022 Telephone [facility] Endocrinology - [facility] [address] [place] [address] Susan Hensley MD [address] [facility] [address] [place] [address] Medications Refill Social History Tobacco [...] Encounter - Gilma Puente RN - 07/24/2022 0992 EDT Patient picked up a 90 day supply of lancets at [facility] on 06/12/22. Gilma Puente RN * Telephone Encounter - Viktoriya Juarez MA - 07/08/2022 1114 EDT Images from the original note were not included. Please review note below from viola'lara for lancets thank you. documented in this encounter Plan of Treatment Upcoming Encounters Date Type Department Care Team (Late st Contact Info) Description 12/29/2024 10:20 EST Office Visit [facility] Rheumatology & Immunology - [address] [address] Micaela Hoff MD [address] [place] [address], [address] [place] [address] documented as of this encounter Visit Diagnoses Not on filedocumented in this encounter Additional Health Concerns Infection Onset Date Last Indicated Resolved Time 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 Care Teams Office Asst Relationship Specialty Start Date End Date Kaylynn Gimenez MD [address] [place] [phone] PCP - General 03/02/15 documented as of this encounter
--- OUTSIDE RECORDS SUMMARY | 2024-06-14 02:08 | XMS_ITS | Encounter Summary ---
Author Organization [facility] Address [address] [place] [address] Care Team Providers Care Splicer Operator Name Role Phone Kaylynn Gimenez MD Primary Care Provider + [phone] Encounter Details Date Type Department Care Team (Late st Contact Info) Description 06/20/2022 Lab Requisition [facility] Pathology & Laboratory Medicine [address] [address] Outr Resulting Lab, Provider Social History Tobacco [...] Info) Description 12/29/2024 10:20 EST Office Visit [facility] Rheumatology & Immunology - [address] [phone] Micaela Hoff MD [address] [place] [address], [address] [place] [phone] documented as of this encounter Procedures Procedure Name Priority Date/Time Associated Diagnosis Comments CORTISOL Routine 06/20/2022 7:18 EDT documented in this encounter Results * CORTISOL (06/20/2022 7:18 EDT) Cortisol 14 See Note ug/dL 06/20/2022 18:[address] [facility] Comment: NOTE: Reference Ranges (from OCD IFU): Collected Before 10:00 AM: ??4 - 23 ug/dL Collected After 5:00 PM: ?2 - 14 ug/dL The results of this assay can be falsely elevated due to the consumption of Biotin. Blood VENOUS BLOOD / Unknown 06/20/2022 7:18 EDT 06/20/2022 17:17 EDT Provider Outr Resulting Lab CHEMISTRY & BLOOD GAS ORDERABLES [facility] [address] [place] [address] documented in this encounter Visit Diagnoses Not on filedocumented in this encounter Additional Health Concerns Infection Onset Date Last Indicated Resolved Time 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 Care Teams Splicer Operator Relationship Specialty Start Date End Date Kaylynn Gimenez MD [address] [place] [address] PCP - General 03/02/15 documented as of this encounter
--- OUTSIDE RECORDS SUMMARY | 2024-06-14 02:08 | XMS_ITS | Encounter Summary ---
Author Organization [facility] Address [address] [place] [address] Care Team Providers Care Cable Television Line Technician Name Role Phone None, Provider Primary Care Provider Unavailabl e Encounter Details Date Type Department Care Team (Late st Contact Info) Description 07/13/2014 Documentation Visit [facility] Obstetrics & Midwifery [address] [phone] Rehan Abarca MD [address] [place] [address] [place] [phone] Social History Tobacco Use Types Packs/Day Years [...] [facility] Rheumatology & Immunology - [address] [phone] Micaela Hfof MD [address] [place] [address], [address] [place] [address] documented as of this encounter Visit Diagnoses Not on filedocumented in this encounter Additional Health Concerns Infection Onset Date Last Indicated Resolved Time 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 Care Teams Cable Television Line Technician Relationship Specialty Start Date End Date None, Provider PCP - General 06/09/14 03/01/15 documented as of this encounter
--- OUTSIDE RECORDS SUMMARY | 2024-06-14 02:08 | XMS_ITS | Encounter Summary ---
Author Organization [facility] Address [address] [place] [address] Care Team Providers Care Roll Grinder Name Role Phone None, Provider Primary Care Provider Unavailabl e Encounter Details Date Type Department Care Team (Late st Contact Info) Description 07/11/2014 14:45 EDT - 07/11/2014 14:46 EDT Hospital Encounter [address] [address] Tasha Torres MD [address] [facility], [address] [place] [phone] Discharge Disposition: Home or Self Care Social [...] Visit [facility] Rheumatology & Immunology - [address] [phone] Micaela Hoff MD [address] [place] [address], [address] [place] [address] documented as of this encounter Procedures Procedure Name Priority Date/Time Associated Diagnosis Comments PATHOLOGY - SCANNED 07/17/2014 16:21 EDT documented in this encounter Results * PATHOLOGY - SCANNED (07/17/2014 16:21 EDT) 07/17/2014 16:2 1 EDT Scan 2 [facility] LAB INFO SERVICE AN D SUPPORT & PHONE RESULT documented in this encounter Visit Diagnoses Not on filedocumented in this encounter Additional Health Concerns Infection Onset Date Last Indicated Resolved Time 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 Care Teams Roll Grinder Relationship Specialty Start Date End Date None, Provider PCP - General 06/09/14 03/01/15 documented as of this encounter
--- OUTSIDE RECORDS SUMMARY | 2024-06-14 02:08 | XMS_ITS | Encounter Summary ---
Author Organization [facility] Address [address] [place] [address] Care Team Providers Care Manager Landscape Name Role Phone None, Provider Primary Care Provider Unavailabl e Reason for Visit * Reason Onset Date Comments Routine Visit 08/07/2014 Encounter Details Date Type Department Care Team (Late st Contact Info) Description 08/07/2014 Orders Only [facility] Women's Services - [address] [phone] Tasha Torres MD [address] [place] [address], [facility] [address] [place] [address] Need for immunization against influenza [...] 12/29/2024 10:20 EST Office Visit [facility] Rheumatology & Immunology - [address] [phone] Micaela Hoff MD [address] [place] [address], [facility] [address] [place] [address] documented as of this encounter [...] documented as of this encounter Care Teams Manager Landscape Relationship Specialty Start Date End Date None, Provider PCP - General 06/09/14 03/01/15 documented as of this encounter
--- OUTSIDE RECORDS SUMMARY | 2024-06-14 02:08 | XMS_ITS | Encounter Summary ---
Author Organization [facility] Address [address] [place] [address] Care Team Providers Care Physical Therapy Technician Name Role Phone None, Provider Primary Care Provider Unavailabl e Encounter Details Date Type Department Care Team (Latest Contact Info) Description 12/13/2014 8:52 EST - 12/13/2014 23:59 [facility] Hospital Encounter [facility] - [address] [address] Unknown, Provider, Discharge Disposition: Home or Self [...] Code Departure Means Destination Home or Self Alf documented in this encounter Plan of Treatment Upcoming Encounters Date Type Department Care Team (Late st Contact Info) Description 12/29/2024 10:20 EST Office Visit [facility] Rheumatology & Immunology - [address] [address] Micaela Hoff MD [address] [place] [address], [address] [place] [address] documented as of this encounter Visit Diagnoses Not on filedocumented in this encounter Additional Health Concerns Infection Onset Date Last Indicated Resolved Time 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 Care Teams Physical Therapy Technician Relationship Specialty Start Date End Date None, Provider PCP - General 06/09/14 03/01/15 documented as of this encounter
--- OUTSIDE RECORDS SUMMARY | 2024-06-14 02:08 | XMS_ITS | Encounter Summary ---
Author Organization [facility] Address [address] [place] [address] Care Team Providers Care Hatchery Laborer Name Role Phone None, Provider Primary Care Provider Unavailabl e Encounter Details Date Type Department Care Team (Late st Contact Info) Description 07/11/2014 Phlebotomy Only [address] [address] Fill Technician, Outpatient Social History Tobacco Use Types Packs/Day [...] Description 12/29/2024 10:20 EST Office Visit [facility] Rheumatology & Immunology [address] [phone] Micaela Hoff MD [address] [facility] [address] [place] [address] documented as of this encounter Visit Diagnoses Not on filedocumented in this encounter Additional Health Concerns Infection Onset Date Last Indicated Resolved Time 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 Care Teams Hatchery Laborer Relationship Specialty Start Date End Date None, Provider PCP - General 06/09/14 03/01/15 documented as of this encounter
--- OUTSIDE RECORDS SUMMARY | 2024-06-14 02:08 | XMS_ITS | Encounter Summary ---
Author Organization [facility] Address [address] [place] [address] Care Team Providers Care Roving Hand Name Role Phone None, Provider Primary Care Provider Unavailabl e Encounter Details Date Type Department Care Team (Late st Contact Info) Description 07/11/2014 10:40 EDT - 07/11/2014 11:[address] [facility] [address] [place] [address] Makeda Lucas MD [address] [facility], [address] [place] [phone] Discharge Disposition: Auto Discharge Social History Tobacco [...] Office Visit [facility] Rheumatology & Immunology - [address] [phone] Micaela Hoff MD [address] [place] [address], [address] [place] [address] documented as of this encounter Visit Diagnoses Not on filedocumented in this encounter Additional Health Concerns Infection Onset Date Last Indicated Resolved Time 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 Care Teams Roving Hand Relationship Specialty Start Date End Date None, Provider PCP - General 06/09/14 03/01/15 documented as of this encounter
--- OUTSIDE RECORDS SUMMARY | 2024-06-14 02:08 | XMS_ITS | Encounter Summary ---
Author Organization [facility] Address [address] [place] [address] Care Team Providers Care Supervisor Food Checkers And Cashiers Name Role Phone Kaylynn Gimenez MD Primary Care Provider + [phone] Encounter Details Date Type Department Care Team (Late st Contact Info) Description 03/14/[address] [facility] Pathology & Laboratory Medicine [address] [address] Outr Resulting Lab, Provider Social History Tobacco [...] [facility] Rheumatology & Immunology - [address] [phone] Micaela Hoff MD [address] [place] [address], [address] [place] [phone] documented as of this encounter Procedures Procedure Name Priority Date/Time Associated Diagnosis Comments HEPATITIS C AB W REFLEX TO HCV RNA BY PCR Routine 03/14/2022 10:10 EDT documented in this encounter Results * HEPATITIS C AB W REFLEX TO HCV RNA BY PCR (03/14/2022 10:10 EDT) Hep C Antibody Negative Negative 03/17/2022 10:18 EDT [facility] Blood VENOUS BLOOD / Unknown 03/14/2022 10:10 EDT 03/14/2022 17:17 EDT Provider Outr Resulting Lab CHEMISTRY & BLOOD GAS ORDERABLES [facility] [address] [place] [address] documented in this encounter Visit Diagnoses Not on filedocumented in this encounter Additional Health Concerns Infection Onset Date Last Indicated Resolved Time 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 Care Teams Supervisor Food Checkers And Cashiers Relationship Specialty Start Date End Date Kaylynn Gimenez MD [address] [place] [phone] PCP - General 03/02/15 documented as of this encounter
--- OUTSIDE RECORDS SUMMARY | 2024-06-14 02:08 | XMS_ITS | Encounter Summary ---
Author Organization [facility] Address [address] [place] [address] Care Team Providers Care Watch Leader Name Role Phone Kaylynn Gimenez MD Primary Care Provider + [phone] Encounter Details Date Type Department Care Team (Late st Contact Info) Description 03/26/2023 Lab Requisition [facility] Pathology & Laboratory Medicine [address] [address] Esther Miller, JAVA GOLDEN GATE DEVELOPER [address] [facility] [address] Encounter for other general examination [...] [facility] Rheumatology & Immunology - [address] [address] Micaela Hoff MD [address] [place] [address], [address] [place] [address] documented as of this encounter Procedures Procedure [...] types, PCR Negative Negative 04/09/2023 17:48 EDT [facility] Comment:No E6 or E7 mRNA is detected from HPV types 16,18,31,33,35,39,45,51,52,56,58,59,66, and 68 by lpc mediated amplification. Papanicolaou smear specimen (specimen) CERVIX UTERI STRUCTURE / Unknown 03/25/2023 11:00 EDT 04/09/2023 10:54 EDT Esther Miller APRN MICROBIOLOGY - NERAL ORDERABLES [facility] [address] [place] [address] * PAP TEST (03/25/2023 11:00 EDT) Specimens A. Cervix and/or Endocervix , ThinPrep Imaging System with Manual Evaluation 04/09/2023 17:48 EDT [facility] Specimen Adequacy Satisfactory for Evaluation - transformation zone component absent 04/09/2023 17:48 EDT [facility] General Categorization Negative for intraepithelial lesion or malignancy 04/09/2023 17:48 EDT [facility] Attestation . 04/09/2023 17:48 EDT [facility] at 7988 Clinical History See below 06/08/20 23 17:48 EDT [facility] HPV The result for the Human Papillomavirus (HPV) Detection-High Risk Types is Negative. No E6 or E7 mRNA is detected from HPV types 16,18,31,33,35,39 ,45,51,52,56,58,5 9,66, and 68 by lpc mediated amplification.Leonie ting was performed on specimen [id number] and was resulted on 04/09/2023 1748 EDT by JONATHAN, LAB INSTRUMENT RESULTS IN 04/09/2023 17:48 EDT [facility] Performing Lab [facility] 04/09/2023 17:48 EDT [facility] Scanned Images 04/09/2023 17:48 EDT [facility] Papanicolaou smear specimen (specimen) CERVIX UTERI STRUCTURE / Unknown 03/25/2023 11:00 EDT 03/26/2023 15:21 EDT Esther Miller APRN PATHOLOGY ORDERAB LES [facility] [address] [place] [address] documented in this encounter Visit Diagnoses Diagnosis Encounter for other general examination documented in this encounter Additional Health Concerns Infection Onset Date Last Indicated Resolved Time 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 Care Teams Watch Leader Relationship Specialty Start Date End Date Kaylynn Gimenez MD [facility] [place] [address] PCP - General 03/02/15 documented as of this encounter
--- OUTSIDE RECORDS SUMMARY | 2024-06-14 02:08 | XMS_ITS | Encounter Summary ---
Author Organization [facility] Address [address] [place] [address] Care Team Providers Care Ice Cream Dipper Name Role Phone Kaylynn Gimenez MD Primary Care Provider + [phone] Encounter Details Date Type Department Care Team (Late st Contact Info) Description 06/09/2024 Lab Requisition [facility] Pathology & Laboratory Medicine [address] [address] Outr Resulting Lab, Provider Social History Tobacco [...] [facility] Immun[facility] - [address] [phone] Micaela Hoff MD [address] [place] [address], [address] [place] [phone] documented as of this encounter Procedures Procedure Name Priority Date/Time Associated Diagnosis Comments CHLAMYDIA/N. GONORRHOEAE AMPLIFIED NUCLEIC ACID Routine 06/08/2024 15:45 EDT documented in this encounter Results * CHLAMYDIA/N. GONORRHOEAE AMPLIFIED NUCLEIC ACID (06/08/2024 15:45 EDT) Neisseria gonorrhoeae Result Negative Negative 06/10/2024 12:11 EDT [facility] Chlamydia trachomatis Result Negative Negative 06/10/2024 12:11 EDT [facility] Swab VAGINAL STRUCTURE / Unknown 06/08/2024 15:45 EDT 06/09/2024 19:46 EDT Provider Outr Resulting Lab MICROBIOLOGY - GENERAL ORDERABLES [facility] [address] [place] [address] documented in this encounter Visit Diagnoses Not on filedocumented in this encounter Additional Health Concerns Infection Onset Date Last Indicated Resolved Time 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 Care Teams Ice Cream Dipper Relationship Specialty Start Date End Date Kaylynn Gimenez MD [facility] [place] [address] PCP - General 03/02/15 documented as of this encounter
--- OUTSIDE RECORDS SUMMARY | 2024-06-14 02:08 | XMS_ITS | Encounter Summary ---
Author Organization [facility] Address [address] [place] [address] Care Team Providers Care Underwater Hunter Name Role Phone None, Provider Primary Care Provider Unavailabl e Reason for Visit * Reason Comments Routine Visit Encounter Details Date Type Department Care Team (Late st Contact Info) Description 08/08/2014 12:45 EDT Routine [facility] Obstetrics & Midwifery - [address] [phone] Tasha Torres MD [address] [place] [address], [address] 4 [place] [address] [place]: [id number] Discharge Disposition: Auto [...] - 08/14/2014 1144 EDT Records faxed to [facility] TUBULAR STOCK GLASS BULB MACHINE FORMER, Dr. Smith's office per Teri's request, as [...] Note - Tasha Torres MD - 08/08/2014 8004 EDTAssociated Problem(s): Supervision of other high-risk Rh+/ab [...] EST Office Visit [facility] Rheumatology & Immunology - [address] [address] Micaela Hoff MD [address] [place] [address], [address] 5 [place] [address] documented as of this encounter [...] BLOOD GA S ORDERABLES Performing Organization Address City/[facility]/ZIP Co de Phone Number [facility] [address] [place] [address] * TSH (08/08/2014 12:14 EDT) TSH 0.98 0.35 - 5.00 uIU/ml [facility] Blood specimen (specimen) 08/08/2014 12:14 EDT 08/08/2014 12:40 EDT Rehan Abarca MD CHEMISTRY & BLOOD GA S ORDERABLES Performing Organization Address [facility] Co de Phone Number [facility] [address] [place] [address] * MRSA INFECTION CONTROL CULTURE (08/08/2014 11:41 EDT) Specimen Description Nasal [facility] Result No Staphylococcus aureus isolated. [facility] Report Status 08/10/2014 Final [facility] NASAL ROUTE / Unknown 08/08/2014 11:41 EDT 08/08/2014 12:01 EDT Tasha Torres MD MICROBIOLOGY - GENERAL ORDERABLES Performing Organization Address [facility] Co de Phone Number [facility] [address] [place] [address] documented in this encounter Visit Diagnoses Diagnosis [...] of this encounter Care Teams Underwater Hunter Relationship Specialty Start Date End Date None, Provider PCP - General 06/09/14 03/01/15 documented as of this encounter
--- OUTSIDE RECORDS SUMMARY | 2024-06-14 02:08 | XMS_ITS | Encounter Summary ---
Author Organization [facility] Address [address] [place] [address] Care Team Providers Care Adult Literacy Teacher Name Role Phone Kaylynn Gimenez MD Primary Care Provider + [phone] Reason for Visit * Reason Comments Hypothyroidism * Referral (Routine) - Closed Specialty Diagnoses / Procedures Referred By Ehsan t Referred To Contact Endocrinology Diagnoses Hypothyroidism, unspecified Hypoglycemia, unspecified Anuja Cai, LEONELA [address] [place] [address] [facility] Endocrinology [address] [place] [address] Referral ID Status Reason Start Date Expiration Date Visits Re quested Visits Authorized [id number] Closed 1 1 Encounter Details Date Type Department Care Team (Latest Contact Info) Description 05/21/2021 16:00 EDT Telemedicine [facility] Endocrinology - [address] [phone] Susan Hensley MD [address] [place] [address] [address] [place] [address] Hypoglycemia (Primary Dx); Hypothyroidism due [...] for a while, 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 Ordered as external to be sent to [facility]. -serum glucose -beta hydroxybutyrate -cortisol -insulin -c-peptide -pro-insulin Follow-up in 6 months but also pending labs. Patient was seen and examined with Dr Lillian Hensley Endocrinology Fellow PGY-4 Pager # [phone] Susan Hensley 05/21/2021 22:38 * Dominga Snyder DO - 05/21/2021 1600 EDT Endocrine Attending: This patient was seen and evaluated with the fellow and I agree with the assessment and plan. documented in this encounter Plan of Treatment Upcoming Encounters Date Type Department Care Team (Late st Contact Info) Description 12/29/2024 10:20 EST Office Visit [facility] Rheumatology & Immunology - [address] [address] Micaela Hoff MD [address] [place] [address], [address] [place] [address] documented as of this encounter [...] documented as of this encounter Care Teams Adult Literacy Teacher Relationship Specialty Start Date End Date Kaylynn Gimenez MD [address] [place] [phone] PCP - General 03/02/15 documented as of this encounter
--- OUTSIDE RECORDS SUMMARY | 2024-06-14 02:08 | XMS_ITS | Encounter Summary ---
Author Organization [facility] Address [address] [place] [address] Care Team Providers Care Direct Marketing Specialist Name Role Phone Kaylynn Gimenez MD Primary Care Provider + [phone] Reason for Visit * Reason Comments New Patient Visit Low sugar * Referral (Routine) - Authorization Not Required Specialty Diagnoses / Procedures [facility] Referred To Contact Diagnoses Hypothyroidism Hypoglycemia Family history of diabetes mellitus Prediabetes Anuja Cai, LEONELA [address] [place] [address] [facility] Endocrinology [address] [place] [address] Referral ID Status Reason Start Date Expiration Date Visits Requested Visits Authorized [id number] Authorization Not Required 1 1 Encounter Details Date Type Department Care Team (Late st Contact Info) Description 02/04/2023 11:30 EDT Telemedicine [facility] [address] [place], [place] [address] Hina Townsend MD [address] [facility] [address] [place] [address] Mena's thyroiditis (Primary Dx); Hypoglycemia [...] the past by the Endocrine Department at [facility] and some of the information is taken [...] for a while, 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
--- OUTSIDE RECORDS SUMMARY | 2024-06-14 02:08 | XMS_ITS | Encounter Summary ---
Author Organization [facility] Address [address] [place] [address] Care Team Providers Care Financial Service Rep Name Role Phone Kaylynn Gimenez MD Primary Care Provider + [phone] Encounter Details Date Type Department Care Team (Late st Contact Info) Description 02/12/2023 Lab Requisition [facility] Pathology & Laboratory Medicine [address] [address] Outr Resulting Lab, Provider Social History Tobacco [...] [facility] Rheumatology & Immunology - [address] [phone] Micaela Hoff MD [address] [place] [address], [address] [place] [phone] documented as of this encounter Procedures Procedure [...] 11:40 EDT) Hold Hold 02/12/2023 22:31 EDT [facility] Blood VENOUS BLOOD / Unknown 02/12/2023 11:40 EDT 02/12/2023 21:28 EDT Provider Outr Resulting Lab LAB INFO SER VICE AND SUPPORT & PHONE RESULT Performing Organization Address [facility] Co de Phone Number [facility] [address] [place] [address] * HOLD SST (02/12/2023 11:40 EDT) Hold Hold 02/12/2023 22:31 EDT [facility] Blood VENOUS BLOOD / Unknown 02/12/2023 11:40 EDT 02/12/2023 21:28 EDT Provider Outr Resulting Lab LAB INFO SER VICE AND SUPPORT & PHONE RESULT Performing Organization Address [facility] Co de Phone Number [facility] [address] [place] [address] * LYME AB (02/12/2023 11:40 EDT) Lyme Ab Negative Negative 02/13/2023 10:30 EDT [facility] Blood VENOUS BLOOD / Unknown 02/12/2023 11:40 EDT 02/12/2023 21:22 EDT Provider Outr Resulting Lab IMMUNOLOGY A ND SEROLOGY ORDERABLES Performing Organization Address [facility] Co de Phone Number [facility] [address] [place] [address] * (ABNORMAL) RHEUMATOID FACTOR (02/12/2023 11:40 EDT) Rheumatoid Factor 14.3(H) <12.0 IU/mL 02/12/2023 21:48 EDT [facility] Blood VENOUS BLOOD / Unknown 02/12/2023 11:40 EDT 02/12/2023 21:22 EDT Provider Outr Resulting Lab CHEMISTRY & BLOOD GAS ORDERABLES Performing Organization Address [facility] de Phone Number [facility] [address] [place] [address] * (ABNORMAL) ANTI NUCLEAR AB (LIZZIE), IFA (02/12/2023 11:40 EDT) LIZZIE Interpretation Positive(A) Negative 02/13/2023 15:40 EDT [facility] Comment: For titers [...] 1:320 Dense Fine Speckled 02/13/2023 15:40 EDT [facility] Blood VENOUS BLOOD / Unknown 02/12/2023 11:40 EDT 02/12/2023 21:22 EDT Narrative [facility] - 02/13/2023 15:40 EDT Results were obtained with the [employer] NOVA Lite HEp-2 LIZZIE Kit by indirect immunofluorescence. Provider Outr Resulting Lab IMMUNOLOGY A ND SEROLOGY ORDERABLES Performing Organization Address City/[facility] Co de Phone Number [facility] [address] [place] [address] * CCP ANTIBODIES (02/12/2023 11:40 EDT) CCP Antibodies <2.5 <5.0 U/mL 02/13/2023 9:13 EDT [facility] Blood VENOUS BLOOD / Unknown 02/12/2023 11:40 EDT 02/12/2023 21:22 EDT Provider Outr Resulting Lab IMMUNOLOGY A ND SEROLOGY ORDERABLES Performing Organization Address [facility] de Phone Number [facility] [address] [place] [address] documented in this encounter Visit Diagnoses Not on filedocumented in this encounter Additional Health Concerns Infection Onset Date Last Indicated Resolved Time 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 Care Teams Financial Service Rep Relationship Specialty Start Date End Date Kaylynn Gimenez MD [facility] [place] [phone] PCP - General 03/02/15 documented as of this encounter
--- OUTSIDE RECORDS SUMMARY | 2024-06-14 02:08 | XMS_ITS | Encounter Summary ---
Author Organization [facility] Address [address] [place] [address] Care Team Providers Care Video Control Operator Name Role Phone None, Provider Primary Care Provider Unavailabl e Encounter Details Date Type Department Care Team (Late st Contact Info) Description 08/08/2014 Phlebotomy Only [address] [address] Hand Assembler, Outpatient Hypothyroidism Social History Tobacco Use Types [...] EST Office Visit [facility] Immunology [address] [phone] Micaela Hoff MD [address] [facility], [address] [place] [address] documented as of this encounter [...] BLOOD GA S ORDERABLES Performing Organization Address [facility] de Phone Number [facility] [address] [place] [address] * TSH (08/08/2014 12:14 EDT) TSH 0.98 0.35 - 5.00 uIU/ml [facility] Blood specimen (specimen) 08/08/2014 12:14 EDT 08/08/2014 12:40 EDT Rehan Abarca MD CHEMISTRY & BLOOD GA S ORDERABLES Performing Organization Address [facility] de Phone Number [facility] [address] [place] [address] documented in this encounter Visit Diagnoses Diagnosis Hypothyroidism Unspecified hypothyroidism documented in this encounter Additional Health Concerns Infection Onset Date Last Indicated Resolved Time 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 Care Teams Video Control Operator Relationship Specialty Start Date End Date None, Provider PCP - General 06/09/14 03/01/15 documented as of this encounter
--- OUTSIDE RECORDS SUMMARY | 2024-06-14 02:08 | XMS_ITS | Encounter Summary ---
Author Organization [facility] Address [address] [place] [address] Care Team Providers Care Aeronautical Engineering Officer Name Role Phone Kaylynn Gimenez MD Primary Care Provider + [phone] Encounter Details Date Type Department Care Team (Late st Contact Info) Description 03/21/2024 Lab Requisition [facility] Pathology & Laboratory Medicine [address] [address] Outr Resulting Lab, Provider Social History Tobacco [...] 12/29/2024 10:20 EST Office Visit [facility] Rheumatology & Immunology - [address] [phone] Micaela Hoff MD [address] [place] [address], [address] [place] [phone] documented as of this encounter Procedures Procedure Name Priority Date/Time Associated Diagnosis Comments CCP ANTIBODIES Routine 03/21/2024 9:04 EDT RHEUMATOID FACTOR Routine 03/21/2024 9:0 4 EDT ANTI NUCLEAR AB (LIZZIE), IFA Routine 03/21/2024 9:04 EDT documented in this encounter Results * RHEUMATOID FACTOR (03/21/2024 9:04 EDT) Rheumatoid Factor 10.5 <12.0 IU/mL 03/21/2024 17:39 EDT [facility] Blood VENOUS BLOOD / Unknown 03/21/2024 9:04 EDT 03/21/2024 17:19 EDT Provider Outr Resulting Lab CHEMISTRY & BLOOD GAS ORDERABLES [facility] [address] [place] [phone] * (ABNORMAL) ANTI NUCLEAR AB (LIZZIE), IFA (03/21/2024 9:04 EDT) LIZZIE Interpretation Positive(A) Negative 03/22/2024 14:31 EDT [facility] Comment: For titers greater [...] 1:320 Dense Fine Speckled 03/22/2024 14:31 EDT [facility] Blood VENOUS BLOOD / Unknown 03/21/2024 9:04 EDT 03/21/2024 17:19 EDT Narrative [facility] - 03/22/2024 14:31 EDT Results were obtained with the youwho NOVA Lite HEp-2 LIZZIE Kit by indirect immunofluorescence. Provider Outr Resulting Lab IMMUNOLOGY A ND SEROLOGY ORDERABLES Performing Organization Address City/[facility]/ZIP Co de Phone Number [facility] [address] [place], [place] [phone] * CCP ANTIBODIES (03/21/2024 9:04 EDT) CCP Antibodies <2.5 <5.0 U/mL 03/22/2024 9:26 EDT [facility] Blood VENOUS BLOOD / Unknown 03/21/2024 9:04 EDT 03/21/2024 17:19 EDT Provider Outr Resulting Lab IMMUNOLOGY A ND SEROLOGY ORDERABLES Performing Organization Address [facility] Co de Phone Number [facility] [address] [place], [place] [phone] documented in this encounter Visit Diagnoses Not on filedocumented in this encounter Additional Health Concerns Infection Onset Date Last Indicated Resolved Time 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 Care Teams Aeronautical Engineering Officer Relationship Specialty Start Date End Date Kaylynn Gimenez MD [facility] [place] [phone] PCP - General 03/02/15 documented as of this encounter
--- OUTSIDE RECORDS SUMMARY | 2024-06-14 02:08 | XMS_ITS | Encounter Summary ---
Author Organization [facility] Address [address] [place] [address] Care Team Providers Care Older Worker Specialist Name Role Phone Kaylynn Gimenez MD Primary Care Provider + [phone] Encounter Details Date Type Department Care Team (Late st Contact Info) Description 01/16/2021 Lab Requisition [facility] Pathology & Laboratory Medicine - [address] [address] Outr Resulting Lab, Provider Social History Tobacco [facility] [address] [address] Micaela Hoff MD [address] [place] [address], [address] [place] [phone] documented as of this encounter Procedures Procedure Name Priority Date/Time Associated Diagnosis Comments INSULIN Routine 01/16/2021 8:34 EDT documented in this encounter Results * INSULIN (01/16/2021 8:34 EDT) Insulin 5.7 <29.0 uIU/mL 01/17/2021 9:17 EDT [facility] Comment: Displayed Reference Range applies to fasting specimens only. Blood VENOUS BLOOD / Unknown 01/16/2021 8:34 EDT 01/16/2021 16:12 EDT Provider Outr Resulting Lab CHEMISTRY & BLOOD GAS ORDERABLES [facility] [address] [place] [address] documented in this encounter Visit Diagnoses Not on filedocumented in this encounter Additional Health Concerns Infection Onset Date Last Indicated Resolved Time 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 Care Teams Older Worker Specialist Relationship Specialty Start Date End Date Kaylynn Gimenez MD [facility] [place] [address] PCP - General 03/02/15 documented as of this encounter
--- OUTSIDE RECORDS SUMMARY | 2024-06-14 02:08 | XMS_ITS | Encounter Summary ---
Author Organization [facility] Address [address] [place] [address] Care Team Providers Care Grades 9 Thru 12 Visiting Teacher Name Role Phone Kaylynn Gimenez MD Primary Care Provider + [phone] Encounter Details Date Type Department Care Team (Late st Contact Info) Description 05/15/2022 Lab Requisition [facility] Pathology & Laboratory Medicine [address] [address] Outr Resulting Lab, Provider Social History Tobacco [...] [facility] Rheumatology & Immunology - [address] [address] Micaela Hoff MD [address] [place] [address], [address] [place] [phone] documented as of this encounter Procedures Procedure Name Priority Date/Time Associated Diagnosis Comments [id number] TEST [facility] PCR Today 05/14/2022 13:30 EDT COVID-19 TESTING Routine 05/14/2022 13:3 0 EDT documented in this encounter Results * COVID-19 TEST [facility] PCR (05/14/2022 13:30 EDT) Swab 05/14/2022 13:3 0 EDT 05/15/2022 17:22 EDT Provider Outr Resulting Lab MICROBIOLOGY - GENERAL ORDERABLES [facility] [address] [place] [address] * COVID-19 TESTING (05/14/2022 13:30 EDT) COVID-19 rt-PCR Result Negative Negative 05/16/2022 14:18 EDT [facility] Comment: This test has not [...] history, and epidemiological information. Performed on the [employer] Fusion instrument This is an appended report. ??These results have been appended to a previously preliminary verified report. Performing Lab [facility] 05/16/2022 14:18 EDT [facility] Swab 05/14/2022 13:3 0 EDT 05/15/2022 17:22 EDT Provider Outr Resulting Lab MICROBIOLOGY - GENERAL ORDERABLES Performing Organization Address City/State/[facility] Co de Phone Number [facility] [address] [place] [address] documented in this encounter Visit Diagnoses Not on filedocumented in this encounter Additional Health Concerns Infection Onset Date Last Indicated Resolved Time 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 Care Teams Grades 9 Thru 12 Visiting Teacher Relationship Specialty Start Date End Date Kaylynn Gimenez MD [facility] [place] [address] PCP - General 03/02/15 documented as of this encounter
--- OUTSIDE RECORDS SUMMARY | 2024-06-14 02:08 | XMS_ITS | Encounter Summary ---
Author Organization [facility] Address [address] [place] [address] Care Team Providers Care Supervisor Poultry Farm Name Role Phone None, Provider Primary Care Provider Unavailabl e Encounter Details Date Type Department Care Team (Late st Contact Info) Description 12/13/2014 Results Only [facility] Laboratory Services - [facility] ([facility]) [address] [place], [place] [address] Giovanni Souza MD [address] [place] [address] [address] [place], [place] [address] Social History Tobacco Use Types Packs/Day Years [...] [facility] Rheumatology & Immunology - [facility] [address] [place], [place] [phone] Micaela Hoff MD [address] [facility], Level 5 [place] [phone] documented as of this encounter Procedures Procedure [...] ? TERI SMITH ? Accession #: ? [id number] ? : ? 1980 (Age: 34) ??F [...] Sectioning reveals a central pinpoint lumen. ??Two employee relations representative cross sections are submitted as A1. B. ?Received in formalin labelled with proper patient identification (initials S, E) and portion right tube is a tubular structure (2.2 cm in length and 0.5 cm in diameter). ??The serosal surface is and smooth. Sectioning reveals a central pinpoint lumen. ??Two employee relations representative cross sections are submitted as B1. Angi Mcdaniel 12/14/2014 9:37 AM End of Report [facility] 12/13/2014 9:01 EST 12/14/2014 9:01 EST Giovanni Souza MD PATHOLOGY ORDERABLES [facility] [address] [place] [address] documented in this encounter Visit Diagnoses Not on filedocumented in this encounter Additional Health Concerns Infection Onset Date Last Indicated Resolved Time 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 Care Teams Supervisor Poultry Farm Relationship Specialty Start Date End Date None, Provider PCP - General 06/09/14 03/01/15 documented as of this encounter
--- OUTSIDE RECORDS SUMMARY | 2024-06-14 02:08 | XMS_ITS | Clinical Summary ---
Author Organization [facility] Address [address] [place] [address] Care Team Providers Care Quality Control Head Name Role Phone Kaylynn Gimenez MD Primary Care Provider + [phone] Allergies Active Allergy Reactions Criticality Noted Date [...] Hypothyroidism 11/27/2010 04/28/2014 Morbid obesity ([facility]) 11/27/201010/2011 Encounters Date Type Department Care Team Description 06/09/2024 Lab Requisition [facility] Pathology & Laboratory [address] [address] Outr Resulting Lab, Provider 03/21/2024 Lab Requisition [facility] Pathology & Laboratory [address] [address] Outr Resulting Lab, Provider from Last 3 [...] Relation Comments Diabetes Father Heart Disease Father [place] Thyroid Cancer/Nodule Maternal Aunt 1 Cancer Cancer Maternal Aunt 2 thyroid Diabetes Maternal Grandmother Heart Disease Maternal Grandmother [place] High Blood Pressure Mother brain aneury sm [...] Info) Description 12/29/2024 10:20 EST Office Visit [facility] Rheumatology & Immunology - [address] [phone] Micaela Hoff MD [address] [place] [address], [address] 5 [place] [address] Health Maintenance Due Date Last [...] gonorrhoeae Result Negative Negative 06/10/2024 12:11 EDT [facility] Chlamydia trachomatis Result Negative Negative 06/10/2024 12:11 EDT [facility] Swab VAGINAL STRUCTURE / Unknown 06/08/2024 15:45 EDT 06/09/2024 19:46 EDT Provider Outr Resulting Lab MICROBIOLOGY - GENERAL ORDERABLES Performing Organization Address City/[facility]/ZIP Co de Phone Number [facility] [address] [place] [phone] * CCP ANTIBODIES (03/21/2024 9:04 EDT) CCP Antibodies <2.5 <5.0 U/mL 03/22/2024 9:26 EDT [facility] Blood VENOUS BLOOD / Unknown 03/21/2024 9:04 EDT 03/21/2024 17:19 EDT Provider Outr Resulting Lab IMMUNOLOGY A ND SEROLOGY ORDERABLES [facility] [address] [place], [place] [address] * RHEUMATOID FACTOR (03/21/2024 9:04 EDT) Rheumatoid Factor 10.5 <12.0 IU/mL 03/21/2024 17:39 EDT [facility] Blood VENOUS BLOOD / Unknown 03/21/2024 9:04 EDT 03/21/2024 17:19 EDT Provider Outr Resulting Lab CHEMISTRY & BLOOD GAS ORDERABLES Performing Organization Address [facility]/RUST Co de Phone Number [facility] [address] [place], [place] [phone] * (ABNORMAL) ANTI NUCLEAR AB (LIZZIE), IFA (03/21/2024 9:04 EDT) Pathologist [facility] LIZZIE Interpretation Positive(A) Negative 03/22/2024 14:31 EDT [facility] Comment: For titers greater [...] 1:320 Dense Fine Speckled 03/22/2024 14:31 EDT [facility] Blood VENOUS BLOOD / Unknown 03/21/2024 9:04 EDT 03/21/2024 17:19 EDT Narrative [facility] - 03/22/2024 14:31 EDT Results were obtained with the Envivio NOVA Lite HEp-2 LIZZIE Kit by indirect immunofluorescence. Provider Outr Resulting Lab IMMUNOLOGY A ND SEROLOGY ORDERABLES Performing Organization Address [facility]/ZIP Co de Phone Number [facility] [address] [place], [place] [phone] * HEPATITIS C AB W REFLEX TO HCV RNA BY PCR (03/14/2022 10:10 EDT) Hep C Antibody Negative Negative 03/17/2022 10:18 EDT [facility] Blood VENOUS BLOOD / Unknown 03/14/2022 10:10 EDT 03/14/2022 17:17 EDT Provider Outr Resulting Lab CHEMISTRY & BLOOD GAS ORDERABLES [facility] [address] [place] [address] from Last 3 Months or Most Recently Relevant to Health Maintenance Additional Health Concerns Infection Onset Date Last Indicated 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 Advance Directives For more information, please contact: [phone] * Full Code (Latest Code Status on File) Date Activated Date Inactivated Comments 07/18/2014 22:50 07/20/2014 11:51 * Full Code Date Activated Date Inactivated Comments 07/18/2014 16:13 07/18/2014 22:50 * Full Code Date Activated Date Inactivated Comments 07/11/2014 13:00 07/11/2014 16:39 * Full Code Date Activated Date Inactivated Comments 06/29/2014 18:01 06/29/2014 20:14 Care Teams Quality Control Head Relationship Specialty Start Date End Date Kaylynn Gimenez MD [address] [place] [phone] PCP - General 03/02/15
--- OUTSIDE RECORDS SUMMARY | 2024-06-14 02:08 | XMS_ITS | Encounter Summary ---
Author Organization [facility] Address [address] [place] [address] Care Team Providers Care Field Services Manager Name Role Phone Kaylynn Gimenez MD Primary Care Provider + [phone] Encounter Details Date Type Department Care Team (Late st Contact Info) Description 03/12/2022 Lab Requisition [facility] Pathology & Laboratory Medicine [address] [address] Outr Resulting Lab, Provider Social History Tobacco [...] 12/29/2024 10:20 EST Office Visit [facility] Rheumatology & Immunology - [address] [phone] Micaela Hoff MD [address] [place] [address], [address] [place] [phone] documented as of this encounter Procedures Procedure Name Priority Date/Time Associated Diagnosis Comments CHLAMYDIA/N. GONORRHOEAE AMPLIFIED NUCLEIC ACID Routine 03/12/2022 13:30 EDT documented in this encounter Results * CHLAMYDIA/N. GONORRHOEAE AMPLIFIED RNA (03/12/2022 13:30 EDT) Neisseria gonorrhoeae Result Negative Negative 03/13/2022 14:35 EDT [facility] Chlamydia trachomatis Result Negative Negative 03/13/2022 14:35 EDT [facility] Swab ENTIRE WALL OF CERVIX / Unknown 03/12/2022 13:30 EDT 03/12/2022 21:52 EDT Provider Outr Resulting Lab MICROBIOLOGY - GENERAL ORDERABLES Performing Organization Address City/State/[facility] Co de Phone Number [facility] [address] [place] [address] documented in this encounter Visit Diagnoses Not on filedocumented in this encounter Additional Health Concerns Infection Onset Date Last Indicated Resolved Time 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 Care Teams Field Services Manager Relationship Specialty Start Date End Date Kaylynn Gimenez MD [facility] [place] [address] PCP - General 03/02/15 documented as of this encounter
--- OUTSIDE RECORDS SUMMARY | 2024-06-14 02:08 | XMS_ITS | Encounter Summary ---
Author Organization [facility] Address [address] [place] [address] Care Team Providers Care Top Knitter Name Role Phone Kaylynn Jones MD Primary Care Provider + [phone] Encounter Details Date Type Department Care Team (Late st Contact Info) Description 09/10/2015 Results Only [facility] [phone] Roberto Zuleta MD [address] [place] [phone] Social History Tobacco Use Types Packs/Day Years [...] [facility] Rheumatology & Immunology - [address] [phone] Micaela Hoff MD 111 [facility], [address] [place] [phone] documented as of this encounter Procedures Procedure [...] ? TERI SMITH ? Accession #: ? [id number] ? : ? 1980 (Age: 35) ??F ? Collect Date: ? 09/10/2015 ? Location: ? [facility] ? Receive Date: ? 09/11/2015 ? Provider: ROBERTO ZULEAT MD Copy to: KAYLYNN JONES MD ? [...] Santos 09/11/2015 10:58 AM End of Report [facility] 09/10/2015 10:0 0 EST 09/11/2015 10:00 EST Roberto Zuleta MD PATHOLOGY ORDERABLES [facility] [address] [place] [address] documented in this encounter Visit Diagnoses Not on filedocumented in this encounter Additional Health Concerns Infection Onset Date Last Indicated Resolved Time 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 Care Teams Top Knitter Relationship Specialty Start Date End Date Kaylynn Jones MD [facility] [place] [address] PCP - General 03/02/15 documented as of this encounter
--- OUTSIDE RECORDS SUMMARY | 2024-06-14 02:08 | XMS_ITS | Encounter Summary ---
Author Organization [facility] Address [address] [place] [address] Care Team Providers Care District Representative Name Role Phone Kaylynn Gimenez MD Primary Care Provider + [phone] Reason for Visit * Reason Onset Date Comments Medications Refill 03/25/2023 Encounter Details Date Type Department Care Team (Late st Contact Info) Description 03/25/2023 Telephone [facility] Endocrinology [address] [place], [place] [address] Hina Townsend MD [address] [facility] [address] [place] [address] Medications Refill Social History Tobacco [...] [facility] Rheumatology & Immunology - [address] [phone] Micaela Hoff MD [address] [place] [address], [address] [place] [phone] documented as of this encounter Visit Diagnoses Not on filedocumented in this encounter Additional Health Concerns Infection Onset Date Last Indicated Resolved Time 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 Care Teams District Representative Relationship Specialty Start Date End Date Kaylynn Gimenez MD [address] [place] [phone] PCP - General 03/02/15 documented as of this encounter
--- OUTSIDE RECORDS SUMMARY | 2024-06-14 02:08 | XMS_ITS | Encounter Summary ---
Author Organization [facility] Address [address] [place] [address] Care Team Providers Care Fast Food Server Name Role Phone None, Provider Primary Care Provider Unavailabl e Encounter Details Date Type Department Care Team (Late st Contact Info) Description 08/08/2014 Orders Only [facility] Women's Services - [address] [address] Luz Maria Cortes LPN [address] [place] [address] Social History Tobacco Use Types Packs/Day Years [...] [facility] Rheumatology & Immunology - [address] [address] Micaela Hoff MD [address] [place] [address], [facility] [address] [place] [address] documented as of this encounter Visit Diagnoses Not on filedocumented in this encounter Additional Health Concerns Infection Onset Date Last Indicated Resolved Time 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 Care Teams Fast Food Server Relationship Specialty Start Date End Date None, Provider PCP - General 06/09/14 03/01/15 documented as of this encounter
--- OUTSIDE RECORDS SUMMARY | 2024-06-14 02:08 | XMS_ITS | Encounter Summary ---
Author Organization [facility] Address [address] [place] [address] Care Team Providers Care Self Contained Behavior Unit Teacher Name Role Phone None, Provider Primary Care Provider Unavailabl e Reason for Referral * (Routine) - Closed Specialty Diagnoses / Procedures Referred By Ehsan patel Referred To Contact Liya Stone MD [address] [place] [address] Referral ID Status Reason Start Date Expiration Date V isits Requested Visits Authorized [id number] Closed Specialty Services Required 07/20/2014 1 1 Encounter Details Date Type Department Care Team (Late st Contact Info) Description 07/18/2014 12:22 EDT - 07/20/2014 9:40 EDT Hospital Encounter [facility] Mother/Baby Unit [address] [place] [phone] Robb Nam MD [address] [address] Chester Howell MD [address] [address] Linda Valdes MD Short cervix, [...] Summaries * Liya Stone MD - 07/19/2014 2587 EDT Discharge Summary Chief Complaint: History of [...] was discharged withplan for follow-up in the [facility] clinic in 1-2 weeks. Relevant Studies [...] documented in this encounter Progress Notes * AGENCY SALES DIRECTOR, ISELA 2 - 07/28/2014 1440 EDT * [...] No VB. Plan to d/c home on physical therapy coordinator activity than normal. Recommend against intercourse until cerclage is out at 36 weeks. Has appt set for , at which time she will also have her anatomy US. CHESTER HOWELL MD * Marisol Howell, RN - 07/19/2014 1407 EDT 1358- Pt ambulated into OR 1. block tester as well as vice president of academic affairs present. James Valdes and Too also in OR for WHO prior to spinal placement. * Rosey Manning RN - 07/19/2014 1259 EDT 1225- pt to unit from [facility] via bed, shown to room 11. FOB Aditya at pt bedside. Pt is 17+5w [id number] a short cervix, here for a cerclage [...] 1540- pt reporting pain of 2/10 from DELGADLILO and PIV discomfort. Given 650 mg of tylenol per e-JAN 1620- pt on regular diet, ordering dinner from kitchen. Given toast with butter. 1630- pt reporting pain is 1/10 1650- Indocin given per e-DEC, second dose due at 2049. 1700- Pt due for progesterone dose tomorrow at 1300 in [place], plan to keep appt and discharge in morning. Will give dose here if pt staying into the afternoon. [facility], room is ready and [...] EDT Transferred via wheelchair by transport to [facility] IV to saline lock documented in this encounter H&P Notes * Chester Howell MD - 07/18/2014 1318 EDT Department of Obstetrics History & Physical Admit Date: 07/18/2014 Chief Complaint: short cervix, h/o PTD Provider: Chester Howell HPI: Teri Smith is a 34 y.o. @ 17w4d by 5w5d US who is here for a cerclage for a shortening cervix. She is followed by [facility] for history of PTD @ 20 [...] Date ??? Upper gastrointestinal endoscopy 09/03/2010 ??? [place] tooth extraction ??? Endometrial biopsy Recycling Program Manager History Social History H/o LEEP after 20 [...] documented in this encounter Nursing Notes * AGENCY SALES DIRECTOR, SCAN 2 - 07/25/2014 6290 EDT documented in this encounter OR Notes [...] PROCEDURE: Santos cerclage. SURGEON: Linda Valdes MD ENGINEER/CONDUCTOR: Rehan Abarca MD ANESTHESIA: FLUIDS: 1000 mL [...] PM / Rehan Abarca MD cn Confirmation: [id number] Dictation ID: [id number] cc: Rehan Abarca MD * OR PostOp - Linda Valdes MD - 07/19/2014 8420 EDT Brief Post-Op Note Date of Surgery: [...] 07/19/2014 15:48 * Anesthesia Procedure Notes - AGENCY SALES DIRECTOR, SCAN 2 - 07/19/2014 1534 EDT documented [...] Date: 07/19/2014 Age: 34 y.o. GA: 17w5d Back Up Scan Coordinator: Chester Howell MD Obstetric History: 34 yo [...] Date ??? Upper gastrointestinal endoscopy 09/03/2010 ??? [place] tooth extraction ??? Endometrial biopsy Current Facility-Administered [...] discussed with pt, all questions answered. Angie Vamra MD * Plan of Care - Sharron [...] Care - Bridget Robbins RN - 07/19/2014 629 EDT Problem: PAIN Goal: Patient???s pain/discomfort is [...] Care - Manuel Chappell RN - 07/18/2014 2325 EDT Problem: MAINTENANCE/ SUPPORT Goal: Maintain Outcome: [...] [facility]ology - [address] [address] Micaela Hoff MD [address] [place] [address], [address] [place] [phone] Scheduled Referrals Name Type Priority Associated Diagnoses [...] & PF4 ORD ERABLES Performing Organization Address City/[facility]/ZIP Co de Phone Number [facility] [address] [place] [address] * INPATIENT ADD-ON (07/19/2014 8:55 EDT) Tests to be added CBC ( SAMPLE IS IN BLOOD BANK) [facility] Number for problems [id number] [facility] Accession number [id number] [facility] 07/19/2014 8:55 EDT 07/19/2014 8:57 EDT Lillian Rainey MD HEMATOLOGY & PF4 OR DERABLES Performing Organization Address City/[facility]/ZIP Co de Phone Number [facility] [address] [place] [address] * HEMAGRAM (07/19/2014 8:06 EDT) WBC UNABLE [...] HEMATOLOGY & PF4 ORD ERABLES [facility] [address] [place] [address] * TYPE AND SCREEN (07/19/2014 7:50 EDT) [...] in the morning) 0850 (Given - Provider: Rebekah Gutierrez RN) 0638 (Given - Provider: Antoinette [...] RN) 0900 (Not Given - Provider: Rosey Mannign RN - Reason: Other - Comment: changed [...] documented as of this encounter Care Teams Self Contained Behavior Unit Teacher Relationship Specialty Start Date End Date None, Provider PCP - General 06/09/14 03/01/15 documented as of this encounter
--- OUTSIDE RECORDS SUMMARY | 2024-06-14 02:08 | XMS_ITS | Encounter Summary ---
Author Organization [facility] Address [address] [place] [address] Care Team Providers Care Shuttle Operator Name Role Phone None, Provider Primary Care Provider Unavailabl e Reason for Visit * Reason Onset Date Comments Routine Visit 09/06/2014 Encounter Details Date Type Department Care Team (Late st Contact Info) Description 09/06/[address] [facility] Obstetrics & Midwifery - [address] [phone] Linda Bustillos MD Supervision of other high-risk [...] Description 12/29/2024 10:[address] [facility] Rheumatology & Immunology - [address] [phone] Micaela Hoff MD [address] [place] [address], [address] [place] [phone] documented as of this encounter Visit Diagnoses Diagnosis Supervision of other high-risk (V23.89)- Primary Supervision of other high-risk documented in this encounter Additional Health Concerns Infection Onset Date Last Indicated Resolved Time 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 Care Teams Shuttle Operator Relationship Specialty Start Date End Date None, Provider PCP - General 06/09/14 03/01/15 documented as of this encounter
--- OUTSIDE RECORDS SUMMARY | 2024-06-14 02:08 | XMS_ITS | Encounter Summary ---
Author Organization [facility] Address [address] [place] [address] Care Team Providers Care Mechanical Engineering Intern Name Role Phone Kaylynn Gimenez MD Primary Care Provider + [phone] Reason for Visit * Reason Onset Date Comments New/Evolving Symptoms 06/03/2022 Spasms 06/03/2022 Fatigue 06/03/2022 Dizziness 06/03/2022 Encounter Details Date Type Department Care Team (Late st Contact Info) Description 06/03/2022 Telephone [facility] Endocrinology - [facility] [address] [place] [address] Yaya Hensley MD [address] [facility] [address] [place] [address] New/Evolving Symptoms; Spasms; Fatigue; Dizziness [...] orders for provider approval if appropriate. Carol Chu RN * Telephone Encounter - Jeane Salinas RN - 06/05/2022 1105 EDT Called pt and sent Independent IPt message to pt. Seeking to gather more information regarding symptoms. Pt last seen via telemedicine by Dr. Hensley referred by PCP for hypoglycemia. Pt also has Mena's. Medications listed are: Levothyroxine 100 mcg daily (pt taking 112 mcg). Script by Dr. Rehan Abarca- script in record noted as ese written in 2013. Current dose unknown. Tapshot, Makers of Videokitshart message sent to pt requesting more information: - current thyroid medication and dose(s) -difficulty sleeping? -what is PCP recommending? -more details regarding fatigue, dizziness -testing BG'S (pt with hx hypoglycemia-last labs- where and when? Requesting pt contact office. Jeane Salinas site safety representative * Telephone Encounter - Obed Malcolm - 06/03/2022 0612 EDT The patient went to her PCP [...] 10:20 EST Office Visit [facility] Rheumatology & Immunology - [address] [phone] Micaela Hoff MD [address] [place] [address], [address] [place] [phone] documented as of this encounter Visit Diagnoses [...] documented as of this encounter Care Teams Mechanical Engineering Intern Relationship Specialty Start Date End Date Kaylynn Gimenez MD [address] [place] [phone] PCP - General 03/02/15 documented as of this encounter
--- OUTSIDE RECORDS SUMMARY | 2024-06-14 02:08 | XMS_ITS | Encounter Summary ---
Author Organization [facility] Address [address] [place] [address] Care Team Providers Care Gynaecological Oncologist Name Role Phone None, Provider Primary Care Provider Unavailabl e Reason for Visit * Reason Onset Date Comments Appointment Related 09/07/2014 Encounter Details Date Type Department Care Team (Late st Contact Info) Description 09/07/2014 Telephone [facility] Obstetrics & Midwifery - [facility] [address] [place], [place] [phone] Soledad Crawley, RN Appointment Related Social History [...] upcoming appointments. Currently, she is receiving weekly Irvona injections in [place]. Patient had injection this AM and per patient reports, she receives quick exam/assessment while she is there. Denies any complaintsregarding her cerclage- no LOF, no cramping, no discharge, etc. Not sure she wants to have two appointments today and doesn't think she can get to [place] in time for her 2:00pm appointment. Offered to reschedule to a different day- with options offered for appointments next week which patient declined due to work, transportation, and childcare issues. Next appointment scheduled for 09/19. Alexsandra ent inquiring about receiving care closer to home in [place] as she is having Irvona injections there already. Advised she discuss with provider at next visit and for coordination of these appointments, patient agreed to this plan. Asked she call [facility] wet machine tender with any concerns or questions. documented in this encounter Plan of Treatment Upcoming Encounters Date Type Department Care Team (Late st Contact Info) Description 12/29/2024 10:20 EST Office Visit [facility] Rheumatology & Immunology - [address] [address] Micaela Hoff MD [address] [place] [address], [address] [place] [address] documented as of this encounter Visit Diagnoses Not on filedocumented in this encounter Additional Health Concerns Infection Onset Date Last Indicated Resolved Time 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 Care Teams Gynaecological Oncologist Relationship Specialty Start Date End Date None, Provider PCP - General 06/09/14 03/01/15 documented as of this encounter
--- OUTSIDE RECORDS SUMMARY | 2024-06-14 02:08 | XMS_ITS | Encounter Summary ---
Author Organization [facility] Address [address] [place] [address] Care Team Providers Care Battery Parts Assembler Name Role Phone Kaylynn Gimenez MD Primary Care Provider [phone] Encounter Details Date Type Department Care Team (Late st Contact Info) Description 03/14/2022 Lab Requisition [facility] Pathology & Laboratory Medicine [address] [address] Outr Resulting Lab, Provider Social History Tobacco [...] [facility] - [address] [phone] Micaela Hoff MD [address] [place] [address], [address] [place] [phone] documented as of this encounter Procedures Procedure Name Priority Date/Time Associated Diagnosis Comments HIV 1/2 ANTIGEN AND ANTIBODY, 4TH GENERATION Routine 03/14/2022 10:10 EDT documented in this encounter Results * HIV 1/2 ANTIGEN AND ANTIBODY, 4TH GENERATION (03/14/2022 10:10 EDT) HIV 1 and 2 Antibody/p24 Antigen, 4th Generation Negative Negative 03/17/2022 10:43 EDT [facility] Comment:If acute HIV-1 infec tion is suspected in a high risk patient, submit plasma specimen for HIV-1 RNA quantitation test. Blood VENOUS BLOOD / Unknown 03/14/2022 10:10 EDT 03/14/2022 17:17 EDT Narrative [facility] - 03/17/2022 10:43 EDT Fourth Generation assay performed on the Siemens Damai.cnaur XPT. Provider Outr Resulting Lab IMMUNOLOGY A ND SEROLOGY ORDERABLES [facility] [address] [place] [address] documented in this encounter Visit Diagnoses Not on filedocumented in this encounter Additional Health Concerns Infection Onset Date Last Indicated Resolved Time 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 Care Teams Battery Parts Assembler Relationship Specialty Start Date End Date Kaylynn Gimenez MD [facility] [place] [phone] PCP - General 03/02/15 documented as of this encounter
--- OUTSIDE RECORDS SUMMARY | 2024-06-14 02:08 | XMS_ITS | Encounter Summary ---
Author Organization [facility] Address [address] [place] [address] Care Team Providers Care Broaching Machine Operator Name Role Phone None, Provider Primary Care Provider Unavailabl e Reason for Visit * Reason Onset Date Comments Headache 07/21/2014 Encounter Details Date Type Department Care Team (Late st Contact Info) Description 07/21/2014 Telephone [facility] - [facility] [address] [place] [address] Aura Bui, RN [address] [place] [address] Headache Social History Tobacco Use Types Packs/Day [...] Info) Description 12/29/2024 10:20 EST Office Visit [facility] Rheumatology & Immunology - [address] [phone] Micaela Hoff MD [address] [place] [address], [address] [place] [address] documented as of this encounter Visit Diagnoses Not on filedocumented in this encounter Additional Health Concerns Infection Onset Date Last Indicated Resolved Time 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 Care Teams Broaching Machine Operator Relationship Specialty Start Date End Date None, Provider PCP - General 06/09/14 03/01/15 documented as of this encounter
--- OUTSIDE RECORDS SUMMARY | 2024-06-14 02:08 | XMS_ITS | Encounter Summary ---
Author Organization [facility] Address [address] [place] [address] Care Team Providers Care Gear Roller Name Role Phone None, Provider Primary Care Provider Unavailabl e Encounter Details Date Type Department Care Team (Late st Contact Info) Description 07/11/2014 Results Only [facility] Obstetrics & Midwifery - [address] [phone] Tasha Torres MD [address] [place] [address] [address] [place] [address] Social History Tobacco Use Types [...] Description 12/29/2024 10:20 EST Office Visit [facility] Rheumatology & Immunology - [address] [phone] Micaela Hoff MD [address] [address], [facility] [address] [place] [phone] documented as of this encounter Procedures Procedure Name Priority Date/Time Associated Diagnosis Comments [id number] INTEGRATED SCREEN Routine 07/11/2014 10:30 EDT documented in this encounter Results * 2ND INTEGRATED SCREEN (07/11/2014 10:30 EDT) Result-Integrated Screen (Note) [facility] Comment: Interpretation: ??Screen Negative Down Syndrome Risk: ??1:1700 Trisomy 18 Risk: 1:93807 ONTD Risk: ??1:2000 Interpretation See Pathology Scanned Report in PRISM. [facility] [place] [facility] 07/11/2014 10:3 0 EDT 07/11/2014 10:46 EDT Tasha Torres MD CHEMISTRY & BLOOD GAS ORDERABLES Performing Organization Address City/State/[facility] Co de Phone Number [facility] [address] [place] [address] documented in this encounter Visit Diagnoses Not on filedocumented in this encounter Additional Health Concerns Infection Onset Date Last Indicated Resolved Time 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 Care Teams Gear Roller Relationship Specialty Start Date End Date None, Provider PCP - General 06/09/14 03/01/15 documented as of this encounter
--- OUTSIDE RECORDS SUMMARY | 2024-06-14 02:09 | XMS_ITS | Encounter Summary ---
Author Organization [facility] Address [address] [place] [address] Care Team Providers Care Instructor Tap Dancing Name Role Phone Conor Angel MD Primary Care Provider [phone] Encounter Details Date Type Department Care Team (Late st Contact Info) Description 02/10/2014 Phlebotomy Only [address] [address] Rug Dyer, Outpatient with other poor obstetric history(V23.49) Social [...] 10:20 EST Office Visit [facility] Rheumatology & Immunology - [address] [address] Micaela Hoff MD [address] [place] [address], [address] [place] [address] documented as of this encounter Procedures Procedure Name Priority Date/Time Associated Diagnosis Comments COMPLETE BLOOD COUNT STAT 02/10/2014 12:09 EDT with other poor obstetric history(V23.49) QUANT BETA HCG, STAT 02/10/2014 12:09 EDT with other poor obstetric history(V23.49) documented in this encounter Results * HEMAGRAM (02/10/2014 12:09 EDT) Pathologist [facility] WBC 7.52 4.0 - 12.4 K/cmm [facility] RBC 4.63 3.86 - 5.04 M/cmm [...] & PF4 OR DERABLES Performing Organization Address [facility] Co de Phone Number [facility] [address] [place] [address] * (ABNORMAL) HCG FOR (02/10/2014 12:09 EDT) Quant Beta HCG, Preg 6(H) <5 mIU/ml [facility] Comment: Reference Range: Negative = <5 Indeterminate = 5-25 recommend repeat in 48 hours. Positive = >25 Blood specimen (specimen) 02/10/2014 12:09 EDT 02/10/2014 12:18 EDT Sarah Rogers MD CHEMISTRY & BLOOD G ORDERABLES Performing Organization Address [facility] Co de Phone Number [facility] [address] [place] [address] documented in this encounter Visit Diagnoses Diagnosis with other poor obstetric history(V23.49) with other poor obstetric history documented in this encounter Additional Health Concerns Infection Onset Date Last Indicated Resolved Time 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 Care Teams Instructor Tap Dancing Relationship Specialty Start Date End Date Conor Angel MD [address] [place] [address] PCP - General 02/07/14 06/08/14 documented as of this encounter
--- OUTSIDE RECORDS SUMMARY | 2024-06-14 02:09 | XMS_ITS | Encounter Summary ---
Author Organization [facility] Address [address] [place] [address] Care Team Providers Care Travel Rn Or Name Role Phone Conor Angel MD Primary Care Provider [phone] Encounter Details Date Type Department Care Team (Late st Contact Info) Description 02/10/2014 Orders Only [facility] Women's Services - [address] [phone] Aura Bui RN [address] [place] [address] Miscarriage (Primary Dx) Social History Tobacco Use [...] Visit [facility] Rheumatology & Immunology - [address] [phone] Micaela Hoff MD [address] [place] [address], [address] [place] [phone] documented as of this encounter Visit Diagnoses Diagnosis Miscarriage- Primary Unspecified spontaneous without mention of complication documented in this encounter Additional Health Concerns Infection Onset Date Last Indicated Resolved Time 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 Care Teams Travel Rn Or Relationship Specialty Start Date End Date Conor Angel MD [address] [phone] PCP - General 02/07/14 06/08/14 documented as of this encounter
--- OUTSIDE RECORDS SUMMARY | 2024-06-14 02:09 | XMS_ITS | Encounter Summary ---
Author Organization [facility] Address [address] [place] [address] Care Team Providers Care Television Station Manager Name Role Phone Cara Arteaga MD Primary Care Provider Encounter Details Date Type Department Care Team (Late st Contact Info) Description 08/01/2013 Results Only [facility] Laboratory Services - [facility] [address] [place], [place] [address] Ladonna Maurer PA [address] [place] [phone] Social History Tobacco Use Types Packs/Day Years [...] [facility] Rheumatology & Immunology - [facility] [address] [place], [place] [phone] Micaela Hoff MD [address] [facility], [address] [place] [phone] documented as of this encounter Procedures Procedure Name Priority Date/Time Associated Diagnosis Comments CYTOPATHOLOGY Routine 08/01/2013 0:00 EDT documented in this encounter Results * CYTOPATHOLOGY (08/01/2013 0:00 EDT) Pathologist [facility] Pathology Report: CYTOPATHOLOGY REPORT Reports generated via electronic interface contain original data; however they are lacking the format of the original report. Caution should be taken when reading/interpreti ng unformatted reports. Name: ? SEBASTIENTERI ? Accession #: ? [id number] : ? 1980 (Age: 33) ??F ?Collect [...] [facility] ORDERABLES [facility] [address] [place] [address] documented in this encounter Visit Diagnoses Not on filedocumented in this encounter Additional Health Concerns Infection Onset Date Last Indicated Resolved Time 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 Care Teams Television Station Manager Relationship Specialty Start Date End Date Cara Arteaga MD [address] [place] [phone] PCP - General 01/25/13 02/06/14 documented as of this encounter
--- OUTSIDE RECORDS SUMMARY | 2024-06-14 02:09 | XMS_ITS | Encounter Summary ---
Author Organization [facility] Address [address] [place] [address] Care Team Providers Care Labor Employment Associate Name Role Phone None, Provider Primary Care Provider Unavailabl e Reason for Visit * Reason Onset Date Comments Medication Management 06/14/2014 Ary Encounter Details Date Type Department Care Team (Late st Contact Info) Description 06/14/2014 Telephone [facility] Obstetrics & Midwifery - [facility] [address] [place] [address] Soledad Crawley, director of counterintelligence Management ([place]) Social History Tobacco Use Types Packs/Day Years [...] 06/14/2014 1033 EDT Call from Nubia at [facility] medical records specialist to discuss collaborative care for Teri to receive Ary injections in [place]. Pt desires this plan, she is aware she needs to schedule appointment with [facility] prior to initiating scheduled injections. Teri offered no questions or concerns, verbalizedunderstanding and agreement with plan of care. documented in this encounter Plan of Treatment Upcoming Encounters Date Type Department Care Team (Late st Contact Info) Description 12/29/2024 10:20 EST Office Visit [facility] Rheumatology & Immunology - [address] [address] Micaela Hoff MD [address] [place] [address], [address] [place] [address] documented as of this encounter Visit Diagnoses Not on filedocumented in this encounter Additional Health Concerns Infection Onset Date Last Indicated Resolved Time 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 Care Teams Labor Employment Associate Relationship Specialty Start Date End Date None, Provider PCP - General 06/09/14 03/01/15 documented as of this encounter
--- OUTSIDE RECORDS SUMMARY | 2024-06-14 02:09 | XMS_ITS | Encounter Summary ---
Author Organization [facility] Address [address] [place] [address] Care Team Providers Care Radioisotope Technologist Name Role Phone Ladonna Maurer Primary Care Provider [phone] Reason for Visit * Reason Comments Labs Only Encounter Details Date Type Department Care Team (Latest Contact Info) Description 11/16/2012 9:30 EST Procedure visit [facility] Endocrinology - [address] [phone] Unknown, Provider, Phlebotomy, [facility] Endo Unspecified hypothyroidism; Mena's thyroiditis Social History [...] [facility] - [facility] [address] [place], [place] [phone] Micaela Hoff MD [address] [facility], [address] [place] [phone] documented as of this encounter Procedures Procedure [...] & BLOOD GAS ORDERABLES Performing Organization Address [facility] Co de Phone Number [facility] [address] [place] [address] * T4 FREE (11/16/2012 9:32 EST) Free T4 1.5 0.8 - 1.8 ng/dL [facility] Blood specimen (specimen) 11/16/2012 9:32 EST 11/16/2012 15:54 EST Drew Grijalva MD CHEMISTRY & BLOOD GAS ORDERABLES Performing Organization Address [facility] Co de Phone Number [facility] [address] [place] [address] documented in this encounter Visit Diagnoses Diagnosis Unspecified hypothyroidism Mena's thyroiditis Chronic lymphocytic thyroiditis documented in this encounter Additional Health Concerns Infection Onset Date Last Indicated Resolved Time 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 Care Teams Radioisotope Technologist Relationship Specialty Start Date End Date Ladonna Maurer PA [address] [place] [address] PCP - General 05/12/12 01/24/13 documented as of this encounter
--- OUTSIDE RECORDS SUMMARY | 2024-06-14 02:09 | XMS_ITS | Encounter Summary ---
Author Organization [facility] Address [address] [place] [address] Care Team Providers Care Back Sewer Name Role Phone Conor Angel MD Primary Care Provider [phone] Reason for Visit * Reason Onset Date Comments Abdominal Cramping 02/10/2014 Encounter Details Date Type Department Care Team (Late st Contact Info) Description 02/10/2014 Telephone [facility] Women's Services - [facility] [address] [place] [address] Aura Bui, RN [address] [place] [address] Abdominal Cramping Social History Tobacco Use Types [...] [facility] Rheumatology & Immunology - [facility] [address] [place], [place] [phone] Micaela Hoff MD [address] [facility], [address] [place] [address] documented as of this encounter Results * HEMAGRAM (02/10/2014 12:09 EDT) Pathologist [facility] WBC 7.52 4.0 - 12.4 K/cmm [facility] [...] PF4 OR DERABLES [facility] [address] [place] [address] * (ABNORMAL) HCG FOR (02/10/2014 12:09 EDT) Pathologist [facility] Quant Beta HCG, Preg 6(H) <5 mIU/ml [facility] Comment: Reference Range: Negative = <5 Indeterminate = 5-25 recommend repeat in 48 hours. Positive = >25 Blood specimen (specimen) 02/10/2014 12:09 EDT 02/10/2014 12:18 EDT Sarah Rogers MD CHEMISTRY & BLOOD G ORDERABLES [facility] [address] [place] [address] documented in this encounter Visit Diagnoses Diagnosis with other poor obstetric history(V23.49)- Primary with other poor obstetric history documented in this encounter Additional Health Concerns Infection Onset Date Last Indicated Resolved Time 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 Care Teams Back Sewer Relationship Specialty Start Date End Date Conor Agnel MD [address] [place] [address] PCP - General 02/07/14 06/08/14 documented as of this encounter
--- OUTSIDE RECORDS SUMMARY | 2024-06-14 02:09 | XMS_ITS | Encounter Summary ---
Author Organization [facility] Address [address] [place] [address] Care Team Providers Care Associate Java Developer Name Role Phone None, Provider Primary Care Provider Unavailabl e Reason for Visit * Reason Onset Date Comments Vaginal Bleeding 06/16/2014 Encounter Details Date Type Department Care Team (Late st Contact Info) Description 06/16/2014 Telephone [facility] Obstetrics & Midwifery - [facility] [address] [place], [place] [phone] Chrissie Lai RN Vaginal Bleeding Social History [...] Telephone Encounter - Chrissie Lai - 06/16/2014 6356 EDT Pt called to report she had brown discharge this morning in the shower. States she has had crampingoff and on the past few days. Denies bright red bleeding or clots. Reports intercourse two days ago. Cramping is decreased with rest. Reassured patient brown discharge is old bleeding. Instructed patient to rest today. Instructed patient to abstain from intercourse until next [facility] appointment. Reviewed when to call , bright red bleeding, cramping that continues, clots, vaginal pressure. Pt verbalized understanding. Reports she will be seeing OB in [place] soon to begin shared care. documented in this encounter Plan of Treatment Upcoming Encounters Date Type Department Care Team (Late st Contact Info) Description 12/29/2024 10:20 EST Office Visit [facility] Rheumatology & Immunology - [address] [phone] Micaela Hoff MD [address] [place] [address], [address] [place] [address] documented as of this encounter Visit Diagnoses Not on filedocumented in this encounter Additional Health Concerns Infection Onset Date Last Indicated Resolved Time 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 Care Teams Associate Java Developer Relationship Specialty Start Date End Date None, Provider PCP - General 06/09/14 03/01/15 documented as of this encounter
--- OUTSIDE RECORDS SUMMARY | 2024-06-14 02:09 | XMS_ITS | Encounter Summary ---
Author Organization [facility] Address [address] [place] [address] Care Team Providers Care Paper Wrapping Machine Operator Name Role Phone Conor Angel MD Primary Care Provider [phone] Reason for Referral * Consult (Routine) - Specialty Report Received Specialty Diagnoses / Procedures Referred By Ehsan patel Referred To Contact Obstetrics Diagnoses History of loss in prior , currently Duyen Haro RN [facility] [address] [place] [address] Referral ID Status Reason Start Date Expiration Date Visits Requested Visits Authorized [id number] Specialty Report Received Specialty Services Required 04/26/2014 1 1 Question Answer Reason for Request: History of 20 week loss, uterine septum with subsequent septoplasty.2nd preg Rx vag prog,39 wk del Scheduling Comments (optional ? describe specific scheduling needs if applicable): within a month * FRET SAW OPERATOR (Routine) - Closed Specialty Diagnoses / Procedures Referred By Ehsan t Referred To Contact Diagnoses Supervision of other normal Procedures GEOTHERMAL POWERPLANT MECHANIC HELPER US OB FIRST TRIMESTER TRANSVAGINAL Rehan Abarca MD [address] [place] [address] [place] [address] Referral ID Status Reason Start Date Expiration Date Visits Re quested Visits Authorized [id number] Closed 04/26/2014 1 1 Reason for Visit * Reason Comments Initial Visit Encounter Details Date Type Department Care Team (Late st Contact Info) Description 04/26/2014 14:45 EDT Initial [facility] Women's Services - [address] [address] Rehan Abarca MD [address] [place] [address] [place] [address] GA: 5w5d Social History Tobacco Use Types [...] Value: No Chlamydia trachomatis DNA detected by touch up painter mediated amplification. Result-GC Amp Probe Value: No Neisseria gonorrhoeae DNA detected by touch up painter mediated amplification. TYPE AND SCREEN Collection Time 04/26/14 16:44 Result Value Range ABO A Rh Factor Positive Antibody Screen Negative Assessment 34 y.o. at 6w0d here for a routine visit. Patient Active Problem List Diagnosis ??? Obstructive sleep apnea syndrome ??? Mean's thyroiditis ??? Tobacco use disorder ??? Palpitations [...] [facility] Immunology - [address] [id number] Micaela Hoff MD [address] [place] [address], Level 5 [place] [address] Scheduled Referrals Name Type Priority Associated Diagnoses Orde r Schedule AMB CONS/FOLLOW UP MATERNAL MEDICINE Outpatient Referral Routine History of loss in prior , currently Ordered: 04/26/2014 documented as of this encounter Procedures Procedure Name Priority Date/Time Associated Diagnosis Comments GEOTHERMAL POWERPLANT MECHANIC HELPER US OB FIRST TRIMESTER TRANSVAGINAL Routine 05/11/2014 14:27 EDT Supervision of other normal TYPE AND SCREEN Routine 04/26/2014 16:44 EDT CHLAMYDIA/N. GONORRHOEAE AMPLIFIED NUCLEIC ACID, THINPREP Routine 04/26/2014 16:11 EDT Supervision of other normal documented in this encounter Results * GEOTHERMAL POWERPLANT MECHANIC HELPER US OB FIRST TRIMESTER TRANSVAGINAL (05/11/2014 14:27 [...] Summary: Impression: 1st Trimester OB scan ,transvaginal [phone] First trimester obstetrical US, transvaginal This is [...] Summary: Impression: 1st Trimester OB scan ,transvaginal [phone] First trimester obstetrical US, transvaginal This is a sanford gestation. Viable IUP. CRL is consistent with menstrual dating. A normal heart beat and yolk sac were noted. Previously resected septum not seen. Recommendations: Follow-up as clinically indicated. Follow-up with [facility] for care. Procedure Note 06/29/2014 Addendum Begins [...] Summary: Impression: 1st Trimester OB scan ,transvaginal [phone] First trimester obstetrical US, transvaginal This is a sanford gestation. Viable IUP. CRL is consistent with menstrual dating. A normal heart beat and yolk sac were noted. Previously resected septum not seen. Recommendations: Follow-up as clinically indicated. Follow-up with [facility] for care. Addendum Ends Indication: dating. Septate [...] Summary: Impression: 1st Trimester OB scan ,transvaginal [phone] First trimester obstetrical US, transvaginal This is a sanford gestation. Viable IUP. CRL is consistent with menstrual dating. A normal heart beat and yolk sac were noted. Previously resected septum not seen. Recommendations: Follow-up as clinically indicated. Follow-up with [facility] for care. Rehan Abarca MD IMG US GEOTHERMAL POWERPLANT MECHANIC HELPER ORDERABLE S * TYPE AND SCREEN (04/26/2014 16:44 EDT) ABO A [facility] Rh Factor Positive [facility] Antibody Screen Negative [facility] 04/26/2014 16:4 4 EDT Provider Theresa [facility]S Performing Organization Address [facility] Co de Phone Number [facility] * HEPATITIS C ANTIBODY (04/26/2014 16:15 EDT) Hepatitis C Ab Negative [facility] Comment:Reference Range: Neg ative Blood specimen (specimen) 04/26/2014 16:15 EDT 04/26/2014 16:34 EDT Rehan Abarca MD CHEMISTRY & BLOOD GA S ORDERABLES [facility] [address] [place] [address] * CHLAMYDIA/GC AMPLIFIED, THIN PREP (04/26/2014 16:11 EDT) Specimen Description Cervix, ThinPrep vial [facility] Chlamydia Result No Chlamydia trachomatis DNA detected by touch up painter mediated amplification. [facility] GC Result No Neisseria gonorrhoeae DNA detected by touch up painter mediated amplification. [facility] Specimen of unknown material (specimen) TOPOGRAPHY UNKNOWN / Unknown 04/26/2014 16:11 EDT 04/28/2014 7:50 EDT Rehan Abarca MD MICROBIOLOGY - GENER AL ORDERABLES [facility] [address] [place] [address] documented in this encounter Visit Diagnoses Diagnosis [...] documented as of this encounter Care Teams Paper Wrapping Machine Operator Relationship Specialty Start Date End Date Conor Angel MD [address] [place] [address] PCP - General 02/07/14 06/08/14 documented as of this encounter
--- OUTSIDE RECORDS SUMMARY | 2024-06-14 02:09 | XMS_ITS | Encounter Summary ---
Author Organization [facility] Address [address] [place] [address] Care Team Providers Care Systems Software Developer Name Role Phone Conor Angel MD Primary Care Provider [phone] Reason for Visit * Reason Onset Date Comments 04/17/2014 Encounter Details Date Type Department Care Team (Late st Contact Info) Description 04/17/2014 Telephone [facility] Women's Services - [address] [address] Brittani Black, RN Social History Tobacco Use [...] .Initial Appt Screening Form Best Contact Number: [phone] [facility] Provider: BRITTANY/ LMP/Pt estimate gestational age: LMP- 03/17/2014 Regular cycles + home test 6/14/14 G/P: P: 1021 HEIGHT: 68 WEIGHT AT LMP: 160 lb Blood type (pt provided): A Positive Current medications (prescribed and not prescribed): 88 mcg synthroid, 40 mg omeprazole, PNV- will send to pharmacy- [facility] sohail Are you a smoker?: Quit- 04/15/14 [...] Description 12/29/2024 10:20 EST Office Visit [facility] Rheumatology & Immunology - [address] [address] Micaela Hoff MD [address] [facility], [address] [place] [address] documented as of this encounter Visit Diagnoses Not on filedocumented in this encounter Additional Health Concerns Infection Onset Date Last Indicated Resolved Time 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 Care Teams Systems Software Developer Relationship Specialty Start Date End Date Conor Angel MD [address] [place] [address] PCP - General 02/07/14 06/08/14 documented as of this encounter
--- OUTSIDE RECORDS SUMMARY | 2024-06-14 02:09 | XMS_ITS | Encounter Summary ---
Author Organization [facility] Address [address] [place] [address] Care Team Providers Care Branch Office Manager Name Role Phone None, Provider Primary Care Provider Unavailabl e Reason for Visit * Reason Onset Date Comments Other 06/20/2014 Ary, records for [facility] OB Encounter Details Date Type Department Care Team (Late st Contact Info) Description 06/20/2014 Telephone [facility] Obstetrics & Midwifery - [facility] [address] [place], [place] [id number] Chrissie Lai, RN Other (Ary, records for [facility] OB) Social History Tobacco Use Types Packs/Day [...] Telephone Encounter - Chrissie Lai - 06/20/2014 5044 EDT Teri called and asked [facility] to contact [facility] about her [place] injections. [place] thinks she is having some of her injections here @ [facility]. Reviewed the note from visit, pt desires injections in [place]. Pt agrees this is the plan. -Spoke with nurse @ [facility]. Explained patient would have injections there. Copy of records faxed to [facility] at their request. documented in this encounter Plan of Treatment Upcoming Encounters Date Type Department Care Team (Late st Contact Info) Description 12/29/2024 10:20 EST Office Visit [facility] Rheumatology & Immunology - [address] [phone] Micaela Hoff MD [address] [place] [address], [address] [place] [address] documented as of this encounter Visit Diagnoses Not on filedocumented in this encounter Additional Health Concerns Infection Onset Date Last Indicated Resolved Time 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 Care Teams Branch Office Manager Relationship Specialty Start Date End Date None, Provider PCP - General 06/09/14 03/01/15 documented as of this encounter
--- OUTSIDE RECORDS SUMMARY | 2024-06-14 02:09 | XMS_ITS | Encounter Summary ---
Author Organization [facility] Address [address] [place] [address] Care Team Providers Care Svp Programmatic Tv Name Role Phone None, Provider Primary Care Provider Unavailabl e Encounter Details Date Type Department Care Team (Late st Contact Info) Description 06/13/2014 Phlebotomy Only [address] [address] Product Management Internship, Outpatient Hypothyroidism Social History Tobacco Use Types [...] Info) Description 12/29/2024 10:20 EST Office Visit [facility] Rheumatology & Immunology [address] [phone] Micaela Hoff MD [address] [facility], [address] [place] [address] documented as of this encounter [...] BLOOD GA S ORDERABLES Performing Organization Address [facility] de Phone Number [facility] [address] [place] [address] * TSH (06/13/2014 15:23 EDT) TSH 1.01 0.35 - 5.00 uIU/ml [facility] Blood specimen (specimen) 06/13/2014 15:23 EDT 06/13/2014 16:22 EDT Rehan Abarca MD CHEMISTRY & BLOOD GA S ORDERABLES Performing Organization Address [facility] de Phone Number [facility] [address] [place] [address] documented in this encounter Visit Diagnoses Diagnosis Hypothyroidism Unspecified hypothyroidism documented in this encounter Additional Health Concerns Infection Onset Date Last Indicated Resolved Time 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 Care Teams Svp Programmatic Tv Relationship Specialty Start Date End Date None, Provider PCP - General 06/09/14 03/01/15 documented as of this encounter
--- OUTSIDE RECORDS SUMMARY | 2024-06-14 02:09 | XMS_ITS | Encounter Summary ---
Author Organization [facility] Address [address] [place] [address] Care Team Providers Care Fruit Grower Name Role Phone Conor Angel MD Primary Care Provider [phone] Encounter Details Date Type Department Care Team (Late st Contact Info) Description 04/25/[address] [facility] Women's Services - [address] [id number] Christiane Elizabeth RN Unspecified complication of , [...] [facility] Rheumatology & Immunology - [address] [phone] Micaela Hoff MD [address] [place] [address], [address] [place] [phone] documented as of this encounter Results * BACTERIAL CULTURE, URINE (04/26/2014 16:16 EDT) Specimen Description Urine [facility] Result Less than 10,000 CFU/ml Usual urogenital marquita. [facility] Report Status 04/28/[address] [facility] Urine specimen (specimen) URINE / Unknown 04/26/2014 16:16 EDT 04/26/2014 16:46 EDT Rehan Abarca MD MICROBIOLOGY - GENER AL ORDERABLES Performing Organization Address [facility] Co de Phone Number [facility] [address] [place] [address] * THYROID CASCADE (04/26/2014 16:15 EDT) [facility] TSH 2.39 0.35 - 5.00 uIU/ml [facility] Comment: TSH cascade is not recommended for patients in which pituitary or hypothalamic disorders are suspected. Blood specimen (specimen) 04/26/2014 16:15 EDT 04/26/2014 16:34 EDT Rehan Abarca MD CHEMISTRY & BLOOD GA S ORDERABLES Performing Organization Address [facility] de Phone Number [facility] [address] [place] [address] * HIV 1/2 ANTIBODY (04/26/2014 16:15 EDT) [facility] HIV 1/2 Antibody Negative [facility] Comment: If acute HIV-1 infection is suspected in a high risk patient, submit plasma specimen for HIV-1 RNA quantification test. Reference Range: ??Negative Assayed utilizing [employer] chemiluminescent technology. Blood specimen (specimen) 04/26/2014 16:15 EDT 04/26/2014 16:34 EDT Rehan Abarca MD IMMUNOLOGY AND SEROL OGY ORDERABLES Performing Organization Address [facility] Co de Phone Number [facility] [address] [place] [address] * CHLAMYDIA/GC AMPLIFIED, THIN PREP (04/26/2014 16:11 EDT) Specimen Description Cervix, ThinPrep vial [facility] Chlamydia Result No Chlamydia trachomatis DNA detected by firefighting equipment specialist mediated amplification. [facility] GC Result No Neisseria gonorrhoeae DNA detected by firefighting equipment specialist mediated amplification. [facility] Specimen of unknown material (specimen) TOPOGRAPHY UNKNOWN / Unknown 04/26/2014 16:11 EDT 04/28/2014 7:50 EDT Rehan Abarca MD MICROBIOLOGY - GENER AL ORDERABLES Performing Organization Address City/State/[facility] Co de Phone Number [facility] [address] [place] [address] documented in this encounter Visit Diagnoses Diagnosis [...] documented as of this encounter Care Teams Fruit Grower Relationship Specialty Start Date End Date Conor Angel MD [address] [place] [address] PCP - General 02/07/14 06/08/14 documented as of this encounter
--- OUTSIDE RECORDS SUMMARY | 2024-06-14 02:09 | XMS_ITS | Encounter Summary ---
Author Organization [facility] Address [address] [place] [address] Care Team Providers Care Insurance And Benefits Clerk Name Role Phone None, Provider Primary Care Provider Unavailabl e Reason for Referral * (Routine) - Closed Specialty Diagnoses / Procedures Referred By Ehsan patel Referred To Contact Liya Stone MD [address] [place] [address] Referral ID Status Reason Start Date Expiration Date V isits Requested Visits Authorized [id number] Closed Specialty Services Required 07/11/2014 1 1 Encounter Details Date Type Department Care Team (Late st Contact Info) Description 07/11/2014 11:10 EDT - 07/11/2014 14:15 EDT Hospital Encounter [facility] Birthing Center Unit [address] [place], [place] [phone] Robb Nam MD [address] [facility], [address] [place] [address] Discharge Disposition: Home or Self [...] Date ??? Upper gastrointestinal endoscopy 09/03/2010 ??? [place] tooth extraction ??? Endometrial biopsy hysteroscopic resection uterine septum 2003 Damper Maker History Social History H/o LEEP after 20 [...] (including nares and areas of open skin) [id number] hours apart rule out colonization. Do not cohort at this time. documented in this encounter Plan of Treatment Upcoming Encounters Date Type Department Care Team (Late st Contact Info) Description 12/29/2024 10:20 EST Office Visit [facility] Rheumatology & Immunology - [address] [address] Micaela Hoff MD [address] [place] [address], [address] [place] [address] Scheduled Referrals Name Type Priority [...] documented as of this encounter Care Teams Insurance And Benefits Clerk Relationship Specialty Start Date End Date None, Provider PCP - General 06/09/14 03/01/15 documented as of this encounter
--- OUTSIDE RECORDS SUMMARY | 2024-06-14 02:09 | XMS_ITS | Encounter Summary ---
Author Organization [facility] Address [address] [place] [address] Care Team Providers Care Sales Review Clerk Name Role Phone None, Provider Primary Care Provider Unavailabl e Reason for Referral * (Routine) - Closed Specialty Diagnoses / Procedures Referred By Ehsan patel Referred To Contact Anna Gore MD [address] [place] [address] Referral ID Status Reason Start Date Expiration Date V isits Requested Visits Authorized [id number] Closed Specialty Services Required 06/29/2014 1 1 Encounter Details Date Type Department Care Team (Late st Contact Info) Description 06/29/2014 17:20 EDT - 06/29/2014 18:10 EDT Hospital Encounter [facility] Birthing Center Unit [address] [place] [address] Robb Nam MD 111 [facility] [address] [place] [address] with history of pre-term labor [...] 12/29/2024 10:20 EST Office Visit [facility] Rheumatology & Immunology - [address] [address] Micaela oHff MD [address] [place] [address], [address] [place] [address] Scheduled Referrals Name Type Priority [...] - GENER AL ORDERABLES Performing Organization Address City/State/[facility] Co de Phone Number [facility] [address] [place] [address] documented in this encounter Visit Diagnoses Diagnosis [...] documented as of this encounter Care Teams Sales Review Clerk Relationship Specialty Start Date End Date None, Provider PCP - General 06/09/14 03/01/15 documented as of this encounter
--- OUTSIDE RECORDS SUMMARY | 2024-06-14 02:09 | XMS_ITS | Encounter Summary ---
Author Organization [facility] Address [address] [place] [address] Care Team Providers Care Vice President Risk Management Name Role Phone None, Provider Primary Care Provider Unavailabl e Reason for Visit * Reason Onset Date Comments Injections 06/27/2014 Ary Encounter Details Date Type Department Care Team (Late st Contact Info) Description 06/27/2014 Telephone [facility] Obstetrics & Midwifery - [facility] [address] [place], [place] [phone] Duyen Haro, RN Injections ([place]) Social History Tobacco Use Types Packs/Day Years [...] documentation. Teri is all set to receive [place] injections at their office beginning on 07-06-14. Cureascriptscalled today, the phone number they had to contact her was incorrect, given phone number we have listed. They will contact her, she may need financial assistance, but Ary will become involved and reach out to her. documented in this encounter Plan of Treatment Upcoming Encounters Date Type Department Care Team (Late st Contact Info) Description 12/29/2024 10:20 EST Office Visit [facility] Rheumatology & Immunology - [address] [phone] Micaela Hoff MD [address] [place] [address], [address] [place] [address] documented as of this encounter Visit Diagnoses Not on filedocumented in this encounter Additional Health Concerns Infection Onset Date Last Indicated Resolved Time 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 Care Teams Vice President Risk Management Relationship Specialty Start Date End Date None, Provider PCP - General 06/09/14 03/01/15 documented as of this encounter
--- OUTSIDE RECORDS SUMMARY | 2024-06-14 02:09 | XMS_ITS | Encounter Summary ---
Author Organization [facility] Address [address] [place] [address] Care Team Providers Care Driver Trainer Name Role Phone Ladonna Maurer Primary Care Provider [phone] Reason for Visit * Reason Comments Fatigue Joint Pain Encounter Details Date Type Department Care Team (Late st Contact Info) Description 05/12/2012 13:00 EDT Office Visit [facility] Rheumatology & Immunology - [facility] [address] [place], [place] [address] Denise Self MD [address] [facility], [address] [place] [address] Pain in joint, multiple sites; [...] has muscle weakness. It is hard to picking machine operator her daughter or open a jar because [...] baby girl. 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 Her LIZZIE is negative, rheumatoid factor negative ANCA negative, [...] - RORY Job ID: SM Doc ID: [id number] Ext Doc ID: [id number] cc: AUSTIN Silva MD documented in this encounter Plan of Treatment Upcoming Encounters Date Type Department Care Team (Late st Contact Info) Description 12/29/2024 10:20 EST Office Visit [facility] Rheumatology & Immunology - [address] [address] Micaela Hoff MD [address] [place] [address], [address] [place] [phone] documented as of this encounter Visit Diagnoses [...] as of this encounter Care Teams Driver Trainer Relationship Specialty Start Date End Date Ladonna Maurer PA [address] [place] [address] PCP - General 05/12/12 01/24/13 documented as of this encounter
--- OUTSIDE RECORDS SUMMARY | 2024-06-14 02:09 | XMS_ITS | Encounter Summary ---
Author Organization [facility] Address [address] [place] [address] Care Team Providers Care Sales Account Director Name Role Phone Unknown, Provider Primary Care Provider [phone] Reason for Visit * Reason Onset Date Comments Release of Information 03/09/2012 TRANSFER OF CARE TO [facility] Encounter Details Date Type Department Care Team (Late Contact Info) Description 03/09/[address] [address] Unknown, Provider, Release of Information (TRANSFER OF CARE TO [facility]) Social History Tobacco Use Types Packs/Day Years [...] all her records have been transferred to [facility] This was done on 03/05/2012 documented in this encounter Plan of Treatment Upcoming Encounters Date Type Department Care Team (Late Contact Info) Description 12/29/2024 10:20 EST Office Visit [facility] Rheumatology & Immunology - [facility] [address] [place] [address] Micaela Hoff MD 111 [facility], Level [address] [place] [phone] documented as of this encounter Visit Diagnoses Not on filedocumented in this encounter Additional Health Concerns Infection Onset Date Last Indicated Resolved Time 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 Care Teams Sales Account Director Relationship Specialty Start Date End Date Unknown, Provider, PCP - General 03/09/12 05/11/12 documented as of this encounter
--- OUTSIDE RECORDS SUMMARY | 2024-06-14 02:09 | XMS_ITS | Encounter Summary ---
Author Organization [facility] Address [address] [place] [address] Care Team Providers Care Tele Rn Name Role Phone None, Provider Primary Care Provider Unavailabl e Reason for Visit * Reason Onset Date Comments Vaginal Discharge 06/29/2014 Encounter Details Date Type Department Care Team (Late st Contact Info) Description 06/29/[address] [facility] Obstetrics & Midwifery - [facility] [address] [place], [place] [phone] Soledad Crawley RN Vaginal Discharge Social History [...] Encounter - Soledad Crawley RN - 06/29/2014 9437 EDT Call from Teri with reports of [...] felt feverish or ill. Page to Dr. Nam, discussed patient's symptoms and MD advised she [...] asking if she can be seen in [place] instead, advised she reach out to office to arrange this or be seen in local ED. At this point, patient states she is beginning to leak watery discharge and tearfully states This is what happened last time. Strongly advised she be seen here in the office for transvaginal ultrasound or seek care locally in [place]. Teri states she will try and make appointment and then patient hung up telephone. US booked for 16:15pm today. documented in this encounter Plan of Treatment Upcoming Encounters Date Type Department Care Team (Late st Contact Info) Description 12/29/2024 10:[address] [facility] Rheumatology & Immunology - [address] [id number] Micaela Hoff MD [address] [place] [address], [address] 5 [place] [phone] documented as of this encounter Visit Diagnoses Not on filedocumented in this encounter Additional Health Concerns Infection Onset Date Last Indicated Resolved Time 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 Care Teams Tele Rn Relationship Specialty Start Date End Date None, Provider PCP - General 06/09/14 03/01/15 documented as of this encounter
--- OUTSIDE RECORDS SUMMARY | 2024-06-14 02:09 | XMS_ITS | Encounter Summary ---
Author Organization [facility] Address [address] [place] [address] Care Team Providers Care Occupational Therapy Director Name Role Phone Yair Dow MD Primary Care Provider [phone] Reason for Visit * Reason Comments Pharyngitis Pt arrives via triag e with c/o sore throat. Pt states that she has white spots on back of throat. Rapid Strep negative through [facility]. Pt in NAD. No drooling noted. Encounter Details Date Type Department Care Team (Late st Contact Info) Description 03/04/2012 16:12 EDT - 03/04/2012 18:50 EDT Emergency [facility] Emergency Department - [facility] [address] [place], [place] [address] Jude Riley PA-C [address] [phone] Emergency, MD Fede Tonsillitis Discharge [...] back of throat. Rapid Strep negative through [facility]. Pt in NAD. No drooling noted. [...] Date ??? Upper gastrointestinal endoscopy 09/03/2010 ??? [facility] tooth extraction No Known Allergies History Substance [...] encounter Miscellaneous Notes * Scanned Note-Null - CLEAN OUT DRILLER HELPER, SCAN 2 - 03/08/2012 3197 EDT documented in this encounter Plan of Treatment Upcoming Encounters Date Type Department Care Team (Late st Contact Info) Description 12/29/2024 10:20 EST Office Visit [facility] Rheumatology & Immunology - [address] [id number] Micaela Hoff MD [address] [place] [address] [address] [place] [phone] documented as of this encounter Visit Diagnoses Diagnosis Tonsillitis Acute tonsillitis documented in this encounter Additional Health Concerns Infection Onset Date Last Indicated Resolved Time 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 Care Teams Occupational Therapy Director Relationship Specialty Start Date End Date Yair Dow MD [address] [place] [phone] PCP - General 06/03/11 03/08/12 documented as of this encounter
--- OUTSIDE RECORDS SUMMARY | 2024-06-14 02:09 | XMS_ITS | Encounter Summary ---
Author Organization [facility] Address [address] [place] [address] Care Team Providers Care Finisher Denture Name Role Phone Cara Arteaga MD Primary Care Provider Encounter Details Date Type Department Care Team (Late st Contact Info) Description 11/18/2013 Results Only [facility] Laboratory Services - [facility] ([facility]) [address] [place] [id number] Roberto Zuleta MD [address] [place] [address] [place] [phone] Social History Tobacco Use Types Packs/Day Years [...] Description 12/29/2024 10:20 EST Office Visit [facility] Rheumatology & Immunology - [facility] [address] [place], [place] [phone] Micaela Hoff MD [address] [facility], [address] 5 [place] [phone] documented as of this encounter Procedures Procedure [...] ? TERI CROWE ? Accession #: ? [id number] ? : ? 1980 (Age: 33) ??F [...] Zuleta MD PATHOLOGY ORDERABLES Performing Organization Address City/State/[facility] Co de Phone Number JENIFER TIJERINA [address] [place] [address] documented in this encounter Visit Diagnoses Not on filedocumented in this encounter Additional Health Concerns Infection Onset Date Last Indicated Resolved Time 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 Care Teams Finisher Denture Relationship Specialty Start Date End Date Cara Arteaga MD [address] [place] [phone] PCP - General 01/25/13 02/06/14 documented as of this encounter
--- OUTSIDE RECORDS SUMMARY | 2024-06-14 02:09 | XMS_ITS | Encounter Summary ---
Author Organization [facility] Address [address] [place] [address] Care Team Providers Care Afterschool Name Role Phone Conor Angel MD Primary Care Provider [phone] Reason for Visit * Reason Comments Pelvic Pain RLQ pain, spotting 4 +6 EGA by LMP. Encounter Details Date Type Department Care Team (Late st Contact Info) Description 02/10/2014 15:30 EDT Office Visit [facility] Reproductive Medicine & Infertility Center - [address] [address] Sarah Rogers MD [address] [place] [address], [address] 4 [place] [address] of unknown anatomic location (Primary [...] Info) Description 12/29/2024 10:20 EST Office Visit [facility] Rheumatology & Immunology - [address] [address] Micaela Hoff MD [address] [place] [address], [address] 5 [place] [phone] documented as of this encounter Visit Diagnoses Diagnosis of unknown anatomic location- Primary state, incidental Unspecified disorder of menstruation and other abnormal bleeding from female genital tract documented in this encounter Additional Health Concerns Infection Onset Date Last Indicated Resolved Time 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 Care Teams Afterschool Relationship Specialty Start Date End Date Conor Angel MD [address] [place] [address] PCP - General 02/07/14 06/08/14 documented as of this encounter
--- OUTSIDE RECORDS SUMMARY | 2024-06-14 02:09 | XMS_ITS | Encounter Summary ---
Author Organization [facility] Address [address] [place] [address] Care Team Providers Care Rod Machine Operator Name Role Phone Ladonna Maurer Primary Care Provider [phone] Reason for Visit * Reason Comments Medications Refill Encounter Details Date Type Department Care Team (Late st Contact Info) Description 07/31/2012 13:13 EDT - 07/31/2012 15:40 EDT Hospital Encounter [facility] Urgent Care - [address] [address] Sarah Solitario NP Unknown, Provider, control counseling [...] * COMBINATION CONTROL PILLS: AFTER YOUR VISIT (CENTRAL AFRICAN) * STOPPING SMOKING: AFTER YOUR VISIT (CENTRAL AFRICAN) documented in this encounter Medications at Time [...] Stroke Mother ??? Heart Disease Father 50 [place] ??? Diabetes Father ??? Thyroid Cancer/Nodule Maternal Aunt Cancer ??? Heart Disease Maternal Grandmother [place] ??? Diabetes Maternal Grandmother ??? Cancer Maternal [...] transmitted infections and [facility]. He detailed discussion regarding the importance of her smoking cessation plan starting tomorrow and quit line information given. Disposition: Discharged The patient's pain was managed to an adequate level weighing risk vs. benefit of further medications. Upon departure from the [facility], the patient's pain was 0 on a zero to ten scale. Condition at departure from the [facility]: Good 1. control counseling TEST, URINE, HIV [...] time, has appointment to be seen at [facility] in October. documented in this encounter Miscellaneous Notes * Scanned Note-Null - TERRA COTTA SETTER, SCAN 2 - 08/10/2012 0658 EDT documented in this encounter Plan of Treatment Upcoming Encounters Date Type Department Care Team (Late st Contact Info) Description 12/29/2024 10:20 EST Office Visit [facility] Rheumatology & Immunology - [address] [address] Micaela Hoff MD [address] [place] [address], [address] [place] [address] documented as of this encounter Procedures Procedure Name Priority Date/Time Associated Diagnosis Comments HIV 1/2 ANTIGEN AND ANTIBODY, 4TH GENERATION STAT 07/31/2012 15:20 EDT control counseling TEST, URINE STAT 07/31/2012 15:17 EDT control counseling documented in this encounter Results * HIV 1/2 ANTIBODY (07/31/2012 15:20 EDT) HIV 1/2 Antibody Negative [facility] Comment: Reference Range: ??Negative Assayed utilizing [employer] chemiluminescent technology. Blood specimen (specimen) 07/31/2012 15:20 EDT 07/31/2012 15:30 EDT Sarah Solitario NP IMMUNOLOGY AND SEROLOGY ORDERABLES Performing Organization Address [facility] de Phone Number [facility] [address] [place] [address] * TEST, URINE (07/31/2012 15:17 EDT) Result- Test, Ur Negative [facility] Comment: NOTE: False negative results may occur in women who are beyond 5-8 weeks gestation. Diagnosis of should be based on a correlation of test results with typical clinical signs and symptoms. Performed at [facility], [place], [place] Urine specimen (specimen) URINE / Unknown 07/31/2012 15:17 EDT 07/31/2012 15:21 EDT Sarah Solitario NP URINALYSIS ORDERABLES Performing Organization Address [facility] de Phone Number [facility] [address] [place] [address] documented in this encounter Visit Diagnoses Diagnosis [...] as of this encounter Care Teams Rod Machine Operator Relationship Specialty Start Date End Date Ladonna Maurer PA [address] [place] [address] PCP - General 05/12/12 01/24/13 documented as of this encounter
--- OUTSIDE RECORDS SUMMARY | 2024-06-14 02:09 | XMS_ITS | Encounter Summary ---
Author Organization [facility] Address [address] [place] [address] Care Team Providers Care Accounts Payable Manager Name Role Phone Conor Angel MD Primary Care Provider [phone] Encounter Details Date Type Department Care Team (Late st Contact Info) Description 04/26/2014 Phlebotomy Only [address] [address] Case Packer And Sealer, Outpatient Supervision of other normal ; Hypothyroidism, [...] [facility] Immun[facility] - [address] [phone] Micaela Hoff MD [address] [place] [address], [facility] [address] [place] [phone] documented as of this encounter Procedures Procedure [...] GENER AL ORDERABLES [facility] [address] [place] [address] * SYPHILIS SEROLOGY (04/26/2014 16:15 EDT) Syphilis Serology Interpretation: Nonreactive [facility] Comment:Reference Range: Non reactive 04/26/2014 16:1 5 EDT 04/26/2014 16:34 EDT Rehan Abarca MD IMMUNOLOGY AND SEROL OGY ORDERABLES Performing Organization Address [facility] de Phone Number [facility] [address] [place] [address] * HEPATITIS B SURFACE ANTIGEN (04/26/2014 16:15 EDT) Hepatitis B Surface Ag Negative [facility] Comment:Reference Range: Neg ative 04/26/2014 16:1 5 EDT 04/26/2014 16:34 EDT Rehan Abarca MD CHEMISTRY & BLOOD GA S ORDERABLES Performing Organization Address [facility] Phone Number [facility] [address] [place] [address] * RUBELLA IGG ANTIBODY (04/26/2014 16:15 EDT) Rubella IgG Ab Positive [facility] Comment: Positive results suggest immunity to Rubella infection. 04/26/2014 16:1 5 EDT 04/26/2014 16:34 EDT Rehan Abarca MD CHEMISTRY & BLOOD GA S ORDERABLES Performing Organization Address [facility] de Phone Number [facility] [address] [place] [address] * BB STUDY (04/26/2014 16:15 EDT) ABO and Rh Type A POS [facility] Antibody Screen Neg [facility] 04/26/2014 16:1 5 EDT 04/26/2014 16:34 EDT Rehan Abarca MD BLOOD BANK TESTS Performing Organization Address [facility] de Phone Number [facility] [address] [place] [address] * DIFFERENTIAL (04/26/2014 16:15 EDT) % Neutrophils [...] PF4 ORD ERABLES [facility] [address] [place] [address] * HEMAGRAM (04/26/2014 16:15 EDT) WBC 7.83 [...] RDW-CV 12.2 11.7 - 14.6 % [facility] 04/26/2014 16:1 5 EDT 04/26/2014 16:34 EDT Rehan Abarca MD HEMATOLOGY & PF4 ORD ERABLES Performing Organization Address [facility] de Phone Number [facility] [address] [place] [address] * HEPATITIS C ANTIBODY (04/26/2014 16:15 EDT) Hepatitis C Ab Negative [facility] Comment:Reference Range: Neg ative Blood specimen (specimen) 04/26/2014 16:15 EDT 04/26/2014 16:34 EDT Rehan Abarca MD CHEMISTRY & BLOOD GA S ORDERABLES Performing Organization Address [facility] Phone Number [place] [address] * THYROID CASCADE (04/26/2014 16:15 EDT) TSH 2.39 0.35 - 5.00 uIU/ml [facility] Comment: TSH cascade is not recommended for patients in which pituitary or hypothalamic disorders are suspected. Blood specimen (specimen) 04/26/2014 16:15 EDT 04/26/2014 16:34 EDT Rehan Abarca MD CHEMISTRY & BLOOD GA S ORDERABLES Performing Organization Address [facility] Phone Number [facility] [address] [place] [address] * HIV 1/2 ANTIBODY (04/26/2014 16:15 EDT) HIV 1/2 Antibody Negative [facility] Comment: If acute HIV-1 infection is suspected in a high risk patient, submit plasma specimen for HIV-1 RNA quantification test. Reference Range: ??Negative Assayed utilizing [employer] chemiluminescent technology. Blood specimen (specimen) 04/26/2014 16:15 EDT 04/26/2014 16:34 EDT Rehan Abarca MD IMMUNOLOGY AND FRANCIS WEEMS ORDERABLES [facility] [address] [place] [address] documented in this encounter Visit Diagnoses Diagnosis Supervision of other normal Hypothyroidism, maternal, antepartum Thyroid dysfunction, antepartum documented in this encounter Additional Health Concerns Infection Onset Date Last Indicated Resolved Time 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 Care Teams Accounts Payable Manager Relationship Specialty Start Date End Date Conor Angel MD [address] [place] [address] PCP - General 02/07/14 06/08/14 documented as of this encounter
--- OUTSIDE RECORDS SUMMARY | 2024-06-14 02:09 | XMS_ITS | Encounter Summary ---
Author Organization [facility] Address [address] [place] [address] Care Team Providers Care Migration Specialist Name Role Phone Ladonna Maurer Primary Care Provider [phone] Reason for Visit * Reason Comments Hip Pain bi-lat worse in AM. Encounter Details Date Type Department Care Team (Late st Contact Info) Description 09/26/2012 13:00 EST - 09/26/2012 15:43 EST Hospital Encounter [facility] Urgent Care - [address] [phone] Clarke Lambert MD [address] [place] [address] Trochanteric bursitis of both hips; Mena's [...] Everywhere. * HIP BURSITIS: AFTER YOUR VISIT (FRENCH) * TROCHANTERIC BURSITIS: EXERCISES (FRENCH) documented in this encounter Medications at Time [...] Notes * Aline Brown LPN - 09/26/2012 1542 EST Pt stable. No new complaints at [...] Stroke Mother ??? Heart Disease Father 50 [place] ??? Diabetes Father ??? Thyroid Cancer/Nodule Maternal Aunt Cancer ??? Heart Disease Maternal Grandmother ID ??? Diabetes Maternal Grandmother ??? Cancer Maternal [...] medications. Upon departure from the [facility], the patient's pain was 5 on a zero to ten scale. Condition at departure from the [facility]: Stable 1. 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 [facility] 09/26/2012 15:40 * Sonya Stoll RN - 09/26/2012 7245 EST C/O hip pain bi-lat worse in [...] encounter Miscellaneous Notes * Scanned Note-Null - MACHINE III COREMAKER, SCAN 2 - 09/30/2012 1318 EST documented in this encounter Plan of Treatment Upcoming Encounters Date Type Department Care Team (Late st Contact Info) Description 12/29/2024 10:20 EST Office Visit [facility] Rheumatology & Immunology - [address] [phone] Micaela Hoff MD [address] [facility], Level [address] [place] [address] documented as of this encounter [...] documented as of this encounter Care Teams Migration Specialist Relationship Specialty Start Date End Date Ladonna Maurer PA [address] [place] [address] PCP - General 05/12/12 01/24/13 documented as of this encounter
--- OUTSIDE RECORDS SUMMARY | 2024-06-14 02:09 | XMS_ITS | Encounter Summary ---
Author Organization [facility] Address [address] [place] [address] Care Team Providers Care Fusing Line Inspector Name Role Phone None, Provider Primary Care Provider Unavailabl e Reason for Referral * ACADEMIC TUTOR (STAT) - Closed Specialty Diagnoses / Procedures [facility] To Contact Diagnoses with history of pre-term labor Procedures ASSISTED TRANSVAGINAL Soledad Crawley RN Referral ID Status Reason Start Date Expiration Date Visits Re quested Visits Authorized [id number] Closed 06/29/2014 1 1 Reason for Visit * Reason Onset Date Comments Routine Visit 06/29/2014 Encounter Details Date Type Department Care Team (Late Contact Info) Description 06/29/2014 Orders Only [facility] Obstetrics & Midwifery [address] [address] Soledad Crawley RN with history [facility] [address] [address] Micaela Hoff MD [address] [place] [address], Level [address] [place] [phone] documented as of this encounter Procedures Procedure Name Priority Date/Time Associated Diagnosis Comments ASSISTED TRANSVAGINAL Routine 06/29/2014 16:4 1 EDT with history of pre-term labor documented in this encounter Results * ASSISTED TRANSVAGINAL (06/29/2014 16:41 EDT) Anatomical Region Laterality [...] of Ultrasound Findings: Transvaginal US. U/S machine: Gratci e8. U/S view: good. Maternal Structures: Cervix: normal. Finding: mucous seen within. No funneling. Cervical length: 27 mm Cervical length with fundal pressure: 22 mm. Cul de Sac / Pouch of Bairon: trace of free fluid visible. Report Summary: Impression: [id number] Transvaginal obstetrical scan A transvaginal scan was [...] of Ultrasound Findings: Transvaginal US. U/S machine: Gratci e8. U/S view: good. Maternal Structures: Cervix: normal. Finding: mucous seen within. No funneling. Cervical length: 27 mm Cervical length with fundal pressure: 22 mm. Cul de Sac / Pouch of Bairon: trace of free fluid visible. Report Summary: Impression: [id number] Transvaginal obstetrical scan A transvaginal scan was [...] of Ultrasound Findings: Transvaginal US. U/S machine: Gratci e8. U/S view: good. Maternal Structures: Cervix: normal. Finding: mucous seen within. No funneling. Cervical length: 27 mm Cervical length with fundal pressure: 22 mm. Cul de Sac / Pouch of Bairon: trace of free fluid visible. Report Summary: Impression: [id number] Transvaginal obstetrical scan A transvaginal scan was [...] of Ultrasound Findings: Transvaginal US. U/S machine: Gratci e8. U/S view: good. Maternal Structures: Cervix: normal. Finding: mucous seen within. No funneling. Cervical length: 27 mm Cervical length with fundal pressure: 22 mm. Cul de Sac / Pouch of Bairon: trace of free fluid visible. Report Summary: Impression: [id number] Transvaginal obstetrical scan A transvaginal scan was [...] Ultrasound Findings: Transvaginal US. U/S machine: FRIDA [employer] Securityt[employer] e8. U/S view: good. Maternal Structures: Cervix: normal. Finding: mucous seen within. No funneling. Cervical length: 27 mm Cervical length with fundal pressure: 22 mm. Cul de Sac / Pouch of Bairon: trace of free fluid visible. Report Summary: Impression: [id number] Transvaginal obstetrical scan A transvaginal scan was [...] of Ultrasound Findings: Transvaginal US. U/S machine: Gratci e8. U/S view: good. Maternal Structures: Cervix: normal. Finding: mucous seen within. No funneling. Cervical length: 27 mm Cervical length with fundal pressure: 22 mm. Cul de Sac / Pouch of Bairon: trace of free fluid visible. Report Summary: Impression: [id number] Transvaginal obstetrical scan A transvaginal scan was [...] ... ... ... Robb Nam MD Fanny [facility] ORDER HEATH documented in this encounter Visit Diagnoses Diagnosis with history of pre-term labor- Primary documented in this encounter Additional Health Concerns Infection Onset Date Last Indicated Resolved Time 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 Care Teams Fusing Line Inspector Relationship Specialty Start Date End Date None, Provider PCP - General 06/09/14 03/01/15 documented as of this encounter
--- OUTSIDE RECORDS SUMMARY | 2024-06-14 02:09 | XMS_ITS | Encounter Summary ---
Author Organization [facility] Address [address] [place] [address] Care Team Providers Care Reel Man Name Role Phone Ladonna Maurer Primary Care Provider [phone] Reason for Visit * Reason Onset Date Comments Results 12/30/2012 Thyroid Problem 12/30/2012 Encounter Details Date Type Department Care Team (Late st Contact Info) Description 12/30/2012 Telephone [facility] Endocrinology - [facility] [address] [place] [address] Drew Grijalva MD [address] [facility] [address] [place] [address] Results; Thyroid Problem Social History [...] end of December with maybe a referral [facility]. * Telephone Encounter - Madhuri Posada - 12/30/2012 1139 EST Patient really needs to speak to talk to the nurse she really isnt feeling well at all, she is having pain in her neck now hurts to move, also feels swollen. * Telephone Encounter - Inge Johnson - 12/30/2012 0806 EST Pt asking for lab results from her November visit, also since yesterday she has notice her thyroid feels enlarged and sore, and stating is more shaky than usual documented in this encounter Plan of Treatment Upcoming Encounters Date Type Department Care Team (Late st Contact Info) Description 12/29/2024 10:20 EST Office Visit [facility] Rheumatology & Immunology - [address] [address] Micaela Hoff MD [address] [place] [address], Level [address] [place] [address] documented as of this encounter Visit Diagnoses Not on filedocumented in this encounter Additional Health Concerns Infection Onset Date Last Indicated Resolved Time 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 Care Teams Reel Man Relationship Specialty Start Date End Date Garrigan, Ladonna, PA [address] [place] [address] PCP - General 05/12/12 01/24/13 documented as of this encounter
--- OUTSIDE RECORDS SUMMARY | 2024-06-14 02:09 | XMS_ITS | Encounter Summary ---
Author Organization [facility] Address [address] [place] [address] Care Team Providers Care Exit Booth Agent Name Role Phone None, Provider Primary Care Provider Unavailabl e Encounter Details Date Type Department Care Team (Late st Contact Info) Description 07/11/2014 Documentation Visit [facility] Obstetrics & Midwifery [address] [phone] Linda Bustillos MD Social History Tobacco Use [...] Info) Description 12/29/2024 10:20 EST Office Visit [facility] Rheumatology & Immunology - [address] [phone] Micaela Hoff MD [address] [place] [address], [address] [place] [address] documented as of this encounter Visit Diagnoses Not on filedocumented in this encounter Additional Health Concerns Infection Onset Date Last Indicated Resolved Time 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 Care Teams Exit Booth Agent Relationship Specialty Start Date End Date None, Provider PCP - General 06/09/14 03/01/15 documented as of this encounter
--- OUTSIDE RECORDS SUMMARY | 2024-06-14 02:09 | XMS_ITS | Encounter Summary ---
Author Organization [facility] Address [address] [place] [address] Care Team Providers Care Physical Security Specialist Name Role Phone Conor Angel MD Primary Care Provider [phone] Reason for Referral * NURSE TECHNICIAN (Routine) - Closed Specialty Diagnoses / Procedures [facility] Referred To Contact Diagnoses Pelvic pain in female Procedures SOLAR ELECTRIC INSTALLER US PELVIS TRANSVAGINAL Aura Bui, RN [address] [place] [phone] Referral ID Status Reason Start Date Expiration Date Visits Re quested Visits Authorized [id number] Closed 02/10/2014 1 1 Encounter Details Date Type Department Care Team (Late st Contact Info) Description 02/10/2014 Orders Only [facility] Women's Services - [address] [address] Aura Bui, RN [address] [place] [phone] Pelvic pain in female (Primary Dx) Social [...] [facility] Rheumatology & Immunology - [address] [address] Micaela Hoff MD [address] [place] [address], [address] [place] [address] documented as of this encounter Procedures Procedure Name Priority Date/Time Associated Diagnosis Comments SOLAR ELECTRIC INSTALLER US PELVIS TRANSVAGINAL Routine 02/10/2014 14:08 EDT Pelvic pain in female documented in this encounter Results * SOLAR ELECTRIC INSTALLER US PELVIS TRANSVAGINAL (02/10/2014 14:08 EDT) Anatomical [...] of free fluid visible. Report Summary: Impression: [id number] First trimester obstetrical US, transvaginal 1) Likely [...] of free fluid visible. Report Summary: Impression: [id number] First trimester obstetrical US, transvaginal 1) Likely s/p miscarriage given HCG is 6 and uterus has a 7mm endometrium. No gestational sac seen. No adnexal abnormalities except a small anechoic paratubal cyst. 2) Patient not tender with pressure from US exam. Recommendations: Patient seeing Dr. Rogers right after US for further management. Sarah Rogers MD IMG US SOLAR ELECTRIC INSTALLER ORDERABL ES documented in this encounter Visit Diagnoses Diagnosis Pelvic pain in female- Primary Unspecified symptom associated with female genital organs documented in this encounter Additional Health Concerns Infection Onset Date Last Indicated Resolved Time 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 Care Teams Physical Security Specialist Relationship Specialty Start Date End Date Conor Angel MD [address] [place] [address] PCP - General 02/07/14 06/08/14 documented as of this encounter
--- OUTSIDE RECORDS SUMMARY | 2024-06-14 02:09 | XMS_ITS | Encounter Summary ---
Author Organization [facility] Address [address] [place] [address] Care Team Providers Care Business Integration Manager Name Role Phone None, Provider Primary Care Provider Unavailabl e Encounter Details Date Type Department Care Team (Late st Contact Info) Description 06/13/2014 Results Only [facility] Women's Services - [address] [place] [address] [address] Rehan Abarca MD [address] [place] [address] [place] [address] Social History Tobacco Use Types Packs/Day Years [...] Description 12/29/2024 10:20 EST Office Visit [facility] Rheumatology & Immunology - [address] [place] [address] [phone] Micaela Hoff MD [address] [place] [address], [address] [place] [phone] documented as of this encounter Procedures Procedure Name Priority Date/Time Associated Diagnosis Comments FIRST INTEGRATED SCREEN Routine 06/13/2014 15:25 EDT documented in this encounter Results * FIRST INTEGRATED SCREEN (06/13/2014 15:25 EDT) First Integrated Screen to [facility] Sample sent to [facility] 06/13/2014 15:2 5 EDT 06/13/2014 16:17 EDT Rehan Abarca MD CHEMISTRY & BLOOD GA S ORDERABLES Performing Organization Address City/State/[facility] Co de Phone Number [facility] [address] [place] [address] documented in this encounter Visit Diagnoses Not on filedocumented in this encounter Additional Health Concerns Infection Onset Date Last Indicated Resolved Time 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 Care Teams Business Integration Manager Relationship Specialty Start Date End Date None, Provider PCP - General 06/09/14 03/01/15 documented as of this encounter
--- OUTSIDE RECORDS SUMMARY | 2024-06-14 02:09 | XMS_ITS | Encounter Summary ---
Author Organization [facility] Address [address] [place] [address] Care Team Providers Care Mat Sewer Name Role Phone Ladonna Maurer Primary Care Provider [phone] Reason for Visit * Reason Comments Dysuria Encounter Details Date Type Department Care Team (Late st Contact Info) Description 07/17/2012 11:45 EDT - 07/17/2012 15:18 EDT Hospital Encounter [facility] Urgent Care - [address] [address] Sarah Solitario SAMPLE COORDINATOR Unknown, Provider, Dysuria; UTI (lower urinary tract [...] sterile urine sample to the lab at [facility] for a urine culture [...] TRACT INFECTION IN WOMEN: AFTER YOUR VISIT ([place]) documented in this encounter Medications at Time [...] be called into the [facility] in [place]. Rx called in. * Sarah Solitario NP [...] is presently in the midst of a TALENT ACQUISITION COORDINATOR workup and a colonoscopy planned. The history [...] Stroke Mother ??? Heart Disease Father 50 [place] ??? Diabetes Father ??? Thyroid Cancer/Nodule Maternal Aunt Cancer ??? Heart Disease Maternal Grandmother [place] ??? Diabetes Maternal Grandmother ??? Cancer Maternal [...] Genitourinary: Vesna Nash, RN present during entire TALENT ACQUISITION COORDINATOR exam. Patient encouraged to stop exam if [...] Bilirubin Neg Neg Ketones Neg Neg Specific [place] <=1.005 1.001 - 1.035 Blood 3+ (*) Neg pH 6.5 4.6 - 8.0 Protein Neg Neg Urobilinogen 0.2 0.2 - 1.0 (E.U./dl) Nitrite Neg Neg Leuk Esterase 1+ (*) Neg Tech ID [id number] TEST, URINE Component Value Range Result- Test, [...] clue cells present Direct Exam Performed at [facility], [place], [place] Report Status 07/17/2012 Final ED/MDCC ADD-ON Component Value Range Tests to be added URINE CULTURE Number for problems 14991 ([facility]) Radiology orders: None Procedures Course: A medical screening exam was performed.VSS And afebrile Differentials considered but not limited to: UTI, STD, IBS Social: Relocating from [facility] to the [facility]. She has a new job starting in thenear future. She has an [facility] for her medical bills. [...] will treat for this. Due to complicated TALENT ACQUISITION COORDINATOR/GI concerns of no menstruation since December, and [...] be given for medication onSunday. She will pick up and delivery driver her prescription at [facility] on Thursday. If she still has symptoms after 3 days of Bactrim she will get a refill and take for a full week. She is returning to the [facility] and reestablishing her care. She is seen in rheumatology. She will would like to see a primary care doctor and/or a TALENT ACQUISITION COORDINATOR doctor before October to help her to [...] medications. Upon departure from the [facility], the patient's pain was 0 on a zero to ten scale. Condition at departure from the [facility]: Good 1. Dysuria POCT URINE DIPSTICK, TEST, URINE, POCT URINE DIPSTICK, TEST, URINE, URINE MICROSCOPIC ONLY, URINE MICROSCOPIC ONLY, WET PREP, CHLAMYDIA/GC AMPLIFIED, ED/[facility] ADD-ON, WET PREP, CHLAMYDIA/GC AMPLIFIED, ED/[facility] ADD-ON, BACTERIAL CULTURE, URINE 2. [...] baby girl. 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 She smokes 3/4 pack a day since the age of 15, has tried to quit many times. Alcohol intake is about once a month. PAST MEDICAL HISTORY: Meningitis as an , wisdom teeth removal, headaches, peptic ulcer disease [...] encounter Miscellaneous Notes * Scanned Note-Null - MORTAR MAKER, SCAN 2 - 07/22/2012 0814 EDT documented in this encounter Plan of Treatment Upcoming Encounters Date Type Department Care Team (Late st Contact Info) Description 12/29/2024 10:20 EST Office Visit [facility] Rheumatology & Immunology - [facility] [address] [place] [address] Micaela Hoff MD [address] [facility], [address] [place] [address] documented as of this encounter [...] [facility] Comment:Performed at [facility], [place], [place] Chlamydia Result No Chlamydia trachomatis DNA detected by handhole machine operator mediated amplification. [facility] GC Result No Neisseria gonorrhoeae DNA detected by handhole machine operator mediated amplification. [facility] Specimen of unknown material (specimen) TOPOGRAPHY UNKNOWN / Unknown 07/17/2012 14:42 EDT 07/17/2012 14:45 EDT Sarah Solitario NP MICROBIOLOG Y - GENERAL ORDERABLES [facility] [address] [place] [address] * WET PREP (07/17/2012 14:41 EDT) Specimen Description Vagina [facility] Direct Exam No Trichomonas or yeast present. [facility] Direct Exam No clue cells present [facility] Direct Exam Performed at [facility], [place], [place] [facility] Report Status 07/17/2012 Final [facility] Specimen of unknown material (specimen) VAGINAL STRUCTURE / Unknown 07/17/2012 14:41 EDT 07/17/2012 14:45 EDT Sarah Solitario NP MICROBIOLOG Y - GENERAL ORDERABLES Performing Organization Address [facility] de Phone Number [facility] [address] [place] [address] * ED/[facility] ADD-ON (07/17/2012 14:30 EDT) Tests to be added URINE CULTURE [facility] Number for problems [id number] ([facility]) [facility] Comment:Performed at [facility] [place], [place] 07/17/2012 14:3 0 EDT 07/17/2012 14:31 EDT Sraah Solitario SAMPLE COORDINATOR HEMATOLOGY & PF4 ORDERABLES Performing Organization Address [facility] de Phone Number [facility] [address] [place] [address] * BACTERIAL CULTURE, URINE (07/17/2012 11:55 EDT) Specimen Description Urine [facility] Specimen Description Performed at [facility] [place], [place] [facility] Result Greater than [...] (YAMILETH) 32: Susceptible Escherichia coli Tobramycin SUSCEPTIBILITY (YAMLIETH) <=1: Susceptible Escherichia coli Amikacin SUSCEPTIBILITY (YAMILETH) <=2: Susceptible Escherichia coli Piperacillin SUSCEPTIBILITY (YAMILETH) >=128: Resistant Escherichia coli Ceftriaxone SUSCEPTIBILITY (YAMILETH) <=1: Susceptible Escherichia coli Ciprofloxacin SUSCEPTIBILITY (YAMILETH) <=0.25: Susceptible Escherichia coli Meropenem SUSCEPTIBILITY (YAMILETH) <=0.25: Susceptible Comment:Greater than 100,000 CFU/ml ESCHERICHIA COLI Sarah Solitario NP MICROBIOLOG Y - GENERAL ORDERABLES Performing Organization Address [facility] de Phone Number [facility] [address] [address] * (ABNORMAL) URINE MICROSCOPIC ONLY (07/17/2012 11:55 [...] or refrig >8hrs. Performed at [facility], [place], [place] Urine specimen (specimen) URINE / Unknown 07/17/2012 11:55 EDT 07/17/2012 12:02 EDT Theodore Tamez MD URINALYSIS ORD ERABLES Performing Organization Address [facility] de Phone Number [facility] [address] [address] * TEST, URINE (07/17/2012 11:55 EDT) Result- Test, Ur Negative [facility] Comment: NOTE: False negative results may occur in women who are beyond 5-8 weeks gestation. Diagnosis of should be based on a correlation of test results with typical clinical signs and symptoms. Performed at [facility], [place], [place] Urine specimen (specimen) URINE / Unknown 07/17/2012 11:55 EDT 07/17/2012 12:01 EDT Theodore Tamez MD URINALYSIS ORD ERABLES Performing Organization Address [facility] Co de Phone Number [facility] [address] [place] [address] * (ABNORMAL) POCT URINE DIPSTICK (07/17/2012 11:52 EDT) Color YELLOW [facility] Clarity, UA Clear [facility] Glucose Neg Neg [facility] Bilirubin Neg Neg [facility] Ketones Neg Neg [facility] Specific [place] <=1.005 1.001 - 1.035 [facility] Blood 3+(A) Neg [facility] pH 6.5 4.6 - 8.0 [facility] Protein Neg Neg [facility] Urobilinogen 0.2 0.2 - 1.0 E.U./dl [facility] Nitrite Neg Neg [facility] Leuk Esterase 1+(A) Neg [facility] engineer station mainline ID [id number] [facility] Comment:[facility] performed at [facility] Urine specimen (specimen) 07/17/2012 11:52 EDT 07/17/2012 11:58 EDT Theodore Tamez MD POINT OF CARE TEST ORDERABLES Performing Organization Address [facility] Co de Phone Number [facility] [address] [place] [address] documented in this encounter Visit Diagnoses Diagnosis [...] documented as of this encounter Care Teams Mat Sewer Relationship Specialty Start Date End Date Ladonna Maurer PA [address] [place] [address] PCP - General 05/12/12 01/24/13 documented as of this encounter
--- OUTSIDE RECORDS SUMMARY | 2024-06-14 02:09 | XMS_ITS | Encounter Summary ---
Author Organization [facility] Address [address] [place] [address] Care Team Providers Care Animal Keeper Name Role Phone Conor Angel MD Primary Care Provider [phone] Encounter Details Date Type Department Care Team (Late st Contact Info) Description 04/26/2014 Results Only [facility] Women's Services - [address] [phone] Cyrus Qiujano MD [address] [place] [address] [place] [address] Social History Tobacco Use Types Packs/Day Years [...] Description 12/29/2024 10:20 EST Office Visit [facility] Rheumatology & Immunology - [address] [phone] Micaela Hoff MD [address] [facility], [address] [place] [phone] documented as of this encounter Procedures Procedure [...] ? LIZZIE SMITH ? Accession #: ? [id number] ? : ? 1980 (Age: 34) ??F [...] types 16,18,31,33,35, 39,45,51,52,56,58, 59,66, and 68 by embroidery operator mediated amplification. Comments Document reviewed and electronically signed by: ? System Interface ? Report date: 05/12/2014 By the signature above, the attending physician certifies that he/she has personally conducted a gross and/or microscopic examination of the described specimens and rendered or confirmed the above diagnosis. End of Report [facility] 04/26/2014 05/01/2014 Cyrus Quijano MD PATHOLOGY ORDERABLES Performing Organization Address City/State/[facility] Co de Phone Number [facility] [address] [place] [address] documented in this encounter Visit Diagnoses Not on filedocumented in this encounter Additional Health Concerns Infection Onset Date Last Indicated Resolved Time 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 Care Teams Animal Keeper Relationship Specialty Start Date End Date Conor Angel MD [address] [place] [address] PCP - General 02/07/14 06/08/14 documented as of this encounter
--- OUTSIDE RECORDS SUMMARY | 2024-06-14 02:09 | XMS_ITS | Encounter Summary ---
Author Organization [facility] Address [address] [place] [address] Care Team Providers Care Bowling Alley Operator Name Role Phone None, Provider Primary Care Provider Unavailabl e Reason for Referral * CAR FRAMER (Routine) - Closed Specialty Diagnoses / Procedures [facility] To Contact Diagnoses with history of pre-term labor Cervical shortening, antepartum condition or complication Procedures ASSISTED TRANSVAGINAL Stiven Logan MD [address] [place] [phone] Referral ID Status Reason Start Date Expiration Date Visits Re quested Visits Authorized [id number] Closed 07/11/2014 1 1 Reason for Visit * Reason Comments Routine Visit Encounter Details Date Type Department Care Team (Late st Contact Info) Description 07/11/2014 8:45 EDT Routine [facility] Obstetrics & Midwifery - [address] [phone] Stiven Logan MD [address] [place] [phone] [place]: 16w4d Discharge Disposition: Auto Discharge [...] 16w4d doing well Headache Hx of on [place] P: She has her lab slips for [...] EDTAssociated Problem(s): with history of pre-term labor [facility] attendnig S: She is doing well. She had a heavier discharge a couple weeks ago but it resolved. She is back to her normal. No cramping or bleeding. She says she has had some headaches (frontal). O: see vitals A: IUP at 16w4d doing well Headache Hx of on [place] P: She has her lab slips for [...] [facility] Rheumatology & Immunology - [address] [phone] Micaela Hoff MD [address] [place] [address], [address] [place] [phone] documented as of this encounter Procedures Procedure Name Priority Date/Time Associated Diagnosis Comments ASSISTED TRANSVAGINAL Routine 07/18/2014 11:5 0 EDT with history of pre-term labor Cervical shortening, antepartum condition or complication documented in this encounter Results * ASSISTED TRANSVAGINAL (07/18/2014 11:50 EDT) Anatomical Region Laterality [...] no free fluid visible. Report Summary: Impression: [id number] Transvaginal obstetrical scan A transvaginal scan was [...] no free fluid visible. Report Summary: Impression: [id number] Transvaginal obstetrical scan A transvaginal scan was [...] ... ... ... ... Stiven Logan MD [facility] ORDER HEATH documented in this encounter Visit Diagnoses Diagnosis with history of pre-term labor- Primary Cervical shortening, antepartum condition or complication documented in this encounter Additional Health Concerns Infection Onset Date Last Indicated Resolved Time 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 Care Teams Bowling Alley Operator Relationship Specialty Start Date End Date None, Provider PCP - General 06/09/14 03/01/15 documented as of this encounter
--- OUTSIDE RECORDS SUMMARY | 2024-06-14 02:09 | XMS_ITS | Encounter Summary ---
Author Organization [facility] Address [address] [place] [address] Care Team Providers Care Coal Screener Name Role Phone None, Provider Primary Care Provider Unavailabl e Reason for Referral * Radiology Services (Routine) - Closed Specialty Diagnoses / Procedures Referred By Contac t Referred To Contact Diagnoses Septate uterus, antepartum Procedures RAD US RETROPERITONEAL COMPLETE Rehan Abarca MD [address] [place] [address] [place] [address] Referral ID Status Reason Start Date Expiration Date Visits Re quested Visits Authorized [id number] Closed 06/13/2014 1 1 * HONEY PROCESSOR (Routine) - Closed Specialty Diagnoses / Procedures Referred By Contac t Referred To Contact Diagnoses Supervision of other high-risk (V23.89) Procedures GROUP HOME DETAILED Rehan Abarca MD [address] [place] [address] [place] [address] Referral ID Status Reason Start Date Expiration Date Visits Re quested Visits Authorized [id number] Closed 06/13/2014 1 1 * HONEY PROCESSOR (Routine) - Closed Specialty Diagnoses / Procedures Referred By Contac t Referred To Contact Diagnoses Supervision of other high-risk (V23.89) Procedures GROUP HOME TRANSVAGINAL Rehan Abarca MD [address] [place] [address] [place] [address] Referral ID Status Reason Start Date Expiration Date Visits Re quested Visits Authorized [id number] Closed 06/13/2014 1 1 Reason for Visit * Reason Comments Routine Visit Encounter Details Date Type Department Care Team (Late st Contact Info) Description 06/13/2014 14:30 EDT Routine [facility] Obstetrics & Midwifery - [address] [address] Makeda Lucas MD [address] [place] [address], Level 4 [place] [address] GA: 12w4d Discharge Disposition: Auto [...] Howell for consultation and plans to start Whitmore IM injections weekly until 36 weeks gestation. [...] MD * Makeda Lucas MD - 06/13/2014 8495 EDT MFMS Attending I saw and examined [...] [facility] [address] [address] Micaela Hoff MD [address] [place] [address], Level 5 [place] [address] documented as of this encounter Procedures Procedure Name Priority Date/Time Associated Diagnosis Comments GROUP HOME DETAILED Routine 08/08/2014 11:19 EDT Supervision of other high-risk (V23.89) RAD US RETROPERITONEAL COMPLETE Routine 07/11/2014 11:05 EDT Septate uterus, antepartum GROUP HOME TRANSVAGINAL Routine 07/11/2014 9:48 EDT Supervision of other high-risk (V23.89) documented in this encounter Results * GROUP HOME DETAILED (08/08/2014 11:19 EDT) Anatomical Region Laterality [...] of Ultrasound Findings: Transabdominal US. U/S machine: [employer] e8. U/S view: good. Genetic Sonogram: measured [...] mm. Volume: 7.5 ml. Report Summary: Impression: [id number] Obstetrical ultrasound with and maternal evaluation, including [...] of Ultrasound Findings: Transabdominal US. U/S machine: Real Time Tomography e8. U/S view: good. Genetic Sonogram: measured [...] mm. Volume: 7.5 ml. Report Summary: Impression: [id number] Obstetrical ultrasound with and maternal evaluation, including [...] Follow-up as clinically indicated. 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 The [...] Signs and Symptoms/Comments: 654.03-Congenital abnormalities of uterus, ivvbunrxma-RRX-2-CM; history of a uterine anomaly . The [...] kidney and urinary bladder Rehan Abarca MD [facility] US ORDERABLES * GROUP HOME TRANSVAGINAL (07/11/2014 9:48 EDT) Anatomical Region Laterality [...] Cervical length: 18 mm. Report Summary: Impression: [id number] Transvaginal obstetrical scan A transvaginal scan was [...] Cervical length: 18 mm. Report Summary: Impression: [id number] Transvaginal obstetrical scan A transvaginal scan was [...] Cervical length: 18 mm. Report Summary: Impression: [id number] Transvaginal obstetrical scan A transvaginal scan was [...] Cervical length: 18 mm. Report Summary: Impression: [id number] Transvaginal obstetrical scan A transvaginal scan was [...] ... ... ... ... Rehan Abarca MD [facility] [place]ABLE S * T4 FREE (06/13/2014 15:23 EDT) Free T4 1.4 0.8 - 1.8 ng/dl [facility] Blood specimen (specimen) 06/13/2014 15:23 EDT 06/13/2014 16:22 EDT Rehan Abarca MD CHEMISTRY & BLOOD GA S ORDERABLES Performing Organization Address City/[facility] Co de Phone Number [facility] [address] [place] [address] * TSH (06/13/2014 15:23 EDT) TSH 1.01 0.35 - 5.00 uIU/ml [facility] Blood specimen (specimen) 06/13/2014 15:23 EDT 06/13/2014 16:22 EDT Rehan Abarca MD CHEMISTRY & BLOOD GA S ORDERABLES Performing Organization Address City/[facility] Co de Phone Number [facility] [address] [place] [address] documented in this encounter Visit Diagnoses Diagnosis [...] documented as of this encounter Care Teams Coal Screener Relationship Specialty Start Date End Date None, Provider PCP - General 06/09/14 03/01/15 documented as of this encounter
--- OUTSIDE RECORDS SUMMARY | 2024-06-14 02:09 | XMS_ITS | Encounter Summary ---
Author Organization [facility] Address [address] [place] [address] Care Team Providers Care Microsoft Dynamics Consultant Name Role Phone Ladonna Maurer Primary Care Provider Reason for Referral * Consult (Routine/Next Available) - Closed Specialty Diagnoses / Procedures Referred By Contact Referred To Contact Gastroenterology and Hepatology Diagnoses Irritable bowel syndrome (IBS) Drew Grijalva MD [address] [place], [place] [address]ey [facility] [address] [place] [address] [facility] Mp5 Gi [address] [place] [address] Referral ID Status Reason Start Date Expiration Date V isits Requested Visits Authorized [id number] Closed Specialty Services Required 11/16/2012 1 1 Question Answer Reason for Request: multiple bowel issues - not thyroid related Reason for Visit * Reason Comments Hypothyroidism Encounter Details Date Type Department Care Team (Latest Contact Info) Description 11/16/2012 9:00 EST Office Visit [facility] Endocrinology - [facility] [address] [place] [address] Drew Grijalva MD 62 [facility] [address] [place] [address] Unspecified hypothyroidism (Primary Dx); Mena's [...] 01/14/2012 No results found for this basename: [id number] No components found with this basename: FREET3 No results found for this basename: [id number] Lab Results Component Value Date FREET4 1.8 [...] Info) Description 12/29/2024 10:20 EST Office Visit [facility] Rheumatology & Immunology - [address] [address] Micaela Hoff MD 111 [facility], Level 5 [place] [address] Scheduled Referrals Name Type Priority Associated Diagnoses Order Schedule AMB CONSULT GASTROENTEROLOGY Outpatient Referral Routine Irritable bowel syndrome (IBS) Ordered: 11/16/2012 documented as of this encounter Results * TSH (11/16/2012 9:32 EST) TSH 1.00 0.35 - 5.00 uIU/ml [facility] Blood specimen (specimen) 11/16/2012 9:32 EST 11/16/2012 15:54 EST Drew Grijalva MD CHEMISTRY & BLOOD GAS ORDERABLES [facility] [address] [place] [address] * T4 FREE (11/16/2012 9:32 EST) Free T4 1.5 0.8 - 1.8 ng/dL [facility] Blood specimen (specimen) 11/16/2012 9:32 EST 11/16/2012 15:54 EST Drew Grijalva MD CHEMISTRY & BLOOD GAS ORDERABLES [facility] [address] [place] [address] documented in this encounter Visit Diagnoses Diagnosis Unspecified hypothyroidism- Primary Mena's thyroiditis Chronic lymphocytic thyroiditis Irritable bowel syndrome (IBS) Irritable bowel syndrome documented in this encounter Additional Health Concerns Infection Onset Date Last Indicated Resolved Time 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 Care Teams Microsoft Dynamics Consultant Relationship Specialty Start Date End Date Ladonna Maurer PA [address] [place] [address] PCP - General 05/12/12 01/24/13 documented as of this encounter
--- OUTSIDE RECORDS SUMMARY | 2024-06-14 02:09 | XMS_ITS | Encounter Summary ---
Author Organization [facility] Address [address] [place] [address] Care Team Providers Care Can Closing Machine Tender Name Role Phone Conor Angel MD Primary Care Provider [phone] Reason for Visit * Reason Onset Date Comments Labs Only 02/20/2014 Encounter Details Date Type Department Care Team (Late st Contact Info) Description 02/20/2014 Telephone [facility] Reproductive Medicine & Infertility Center - [facility] [address] [place] [address] Cecilia Hines, RN [address] [place] [address] Labs Only Social History Tobacco Use Types [...] 4..14 HCG- 6, repeat 4.14- <2 at [facility] in [place]. Reviewed with patient- verbalized understanding. Will follow up as necessary. documented in this encounter Plan of Treatment Upcoming Encounters Date Type Department Care Team (Late st Contact Info) Description 12/29/2024 10:20 EST Office Visit [facility] Rheumatology & Immunology - [facility] [address] [place], [place] [address] Micaela Hoff MD 111 [facility], Level 5 [place] [phone] documented as of this encounter Visit Diagnoses Not on filedocumented in this encounter Additional Health Concerns Infection Onset Date Last Indicated Resolved Time 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 Care Teams Can Closing Machine Tender Relationship Specialty Start Date End Date Conor Angel MD [address] [place] [address] PCP - General 02/07/14 06/08/14 documented as of this encounter
--- OUTSIDE RECORDS SUMMARY | 2024-06-14 02:09 | XMS_ITS | Encounter Summary ---
Author Organization [facility] Address [address] [place] [address] Care Team Providers Care Bread Dough Mixer Name Role Phone Conor Angel MD Primary Care Provider [phone] None, Provider Primary Care Provider Unavailabl e Reason for Referral * PARK NATURALIST (Routine) - Closed Specialty Diagnoses / Procedures Referred By Ehsan patel Referred To Contact Diagnoses Supervision of other high-risk (V23.89) Procedures DETENTION INTEGRATED SCREEN Shanique Howell MD [address] [facility], Level [address] [place] [address] Referral ID Status Reason Start Date Expiration Date Visits Re quested Visits Authorized [id number] Closed 05/11/2014 1 1 Reason for Visit * Reason Comments Advice Only * Consult (Routine) - Specialty Report Received Specialty Diagnoses / Procedures Referred By Ehsan t Referred To Contact Obstetrics Diagnoses History of loss in prior , currently Duyen Haro RN [facility] Ep4 Ob/Mfm [address] [place] [address] Referral ID Status Reason Start Date Expiration Date Visits Requested Visits Authorized [id number] Specialty Report Received Specialty Services Required 04/26/2014 1 1 Encounter Details Date Type Department Care Team ([facility] st Contact Info) Description 05/11/2014 15:00 EDT Initial consult [facility] Obstetrics & Midwifery - [address] [address] Shanique Howell MD [address] [place] [address], Level 4 [place] [address] Supervision of other high-risk (V23.89) [...] No known drug allergies Family History: None. 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 U/S machine: [employer] e8. U/S view: good. Report Summary: Impression: NOTE: This study was ordered as an NT ONLY so maternal and anatomy assessments were not performed. [address] Nuchal translucency measurement This is a sanford gestation. Nuchal translucency is 2.6 mm. Omphalocele is not present. To complete the integrated screen, second trimester serum must be drawn and sent to Mc4, preferably at 15-16 weeks'. Recommendations: Follow-up as [...] of Ultrasound Findings: Transabdominal US. U/S machine: [employer] e8. U/S view: good. Report Summary: Impression: NOTE: This study was ordered as an NT ONLY so maternal and anatomy assessments were not performed. 14338 Nuchal translucency measurement This is a sanford gestation. Nuchal translucency is 2.6 mm. Omphalocele is not present. To complete the integrated screen, second trimester serum must be drawn and sent to Mc4, preferably at 15-16 weeks'. Recommendations: Follow-up as clinically indicated. Growth Overview: Date GA BPD [mm] HC [mm] AC [mm] FL [mm] HUM [mm] EFW GP 05/11/2014 7 + 6 ... ... ... ... ... ... ... 06/13/2014 12 + 4 ... ... ... ... ... ... ... Shanique Howell MD [facility] DETENTION OR DERABLES documented in this encounter Visit Diagnoses Diagnosis Supervision of other high-risk (V23.89)- Primary Supervision of other high-risk documented in this encounter Additional Health Concerns Infection Onset Date Last Indicated Resolved Time 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 Care Teams Bread Dough Mixer Relationship Specialty Start Date End Date Conor Angel MD [address] [place] [address] PCP - General 02/07/14 06/08/14 None, Provider PCP - General 06/09/14 03/01/15 documented as of this encounter
--- OUTSIDE RECORDS SUMMARY | 2024-06-14 02:09 | XMS_ITS | Encounter Summary ---
Author Organization [facility] Address [address] [place] [address] Care Team Providers Care Kier Operator Name Role Phone Cara Arteaga MD Primary Care Provider Reason for Visit * Reason Onset Date Comments 02/06/2014 LMP 3-8-14 Encounter Details Date Type Department Care Team (Late st Contact Info) Description 02/06/2014 Telephone [facility] Obstetrics & Midwifery - [facility] [address] [place], [place] [phone] Duyen Haro, RN (LMP 3-8-14) Social History [...] EDT Phone call from rosa Williamson. Was [facility] patient in [phone]. Delivered full- term daughter afterseptum repair, was supplemented by progesterone suppositories from what she says. Newly with LMP of 3-8-14. vitamins and extra folic acid e-scribed to local pharmacy. Order placed for dating/viability scan same day. documented in this encounter Plan of Treatment Upcoming Encounters Date Type Department Care Team (Late st Contact Info) Description 12/29/2024 10:20 EST Office Visit [facility] Rheumatology & Immunology - [address] [address] Micaela Hoff MD 111 [facility], [address] [place] [phone] documented as of this encounter Visit Diagnoses Diagnosis Absence of menstruation- Primary documented in this encounter Additional Health Concerns Infection Onset Date Last Indicated Resolved Time 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 Care Teams Kier Operator Relationship Specialty Start Date End Date Cara Arteaga MD [address] [place] [address] PCP - General 01/25/13 02/06/14 documented as of this encounter
--- OUTSIDE RECORDS SUMMARY | 2024-06-14 02:09 | XMS_ITS | Encounter Summary ---
Author Organization [facility] Address [address] [place] [address] Care Team Providers Care Faculty Research Assistant Name Role Phone Conor Angel MD Primary Care Provider [phone] Encounter Details Date Type Department Care Team (Latest Contact Info) Description 02/10/2014 11:49 EDT - 02/10/2014 23:59 EDT Hospital Encounter [facility] [address] [place] [address] Unknown, Provider, Discharge Disposition: Home or Self [...] Upcoming Encounters Date Type Department Care Team ([facility] st Contact Info) Description 12/29/2024 10:20 EST Office Visit [facility] Rheumatology & Immunology - [address] [address] Micaela Hoff MD [address] [place] [address], Level [address] [place] [phone] documented as of this encounter Visit Diagnoses Not on filedocumented in this encounter Additional Health Concerns Infection Onset Date Last Indicated Resolved Time 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 Care Teams Faculty Research Assistant Relationship Specialty Start Date End Date Conor Angel MD [address] [place] [address] PCP - General 02/07/14 06/08/14 documented as of this encounter
--- OUTSIDE RECORDS SUMMARY | 2024-06-14 02:10 | XMS_ITS | Encounter Summary ---
Author Organization [facility] Address [address] [place] [address] Care Team Providers Care Property Damage Claims Adjustor Name Role Phone Yair Dow MD Primary Care Provider [phone] Encounter Details Date Type Department Care Team (Late st Contact Info) Description 11/26/[address] [address] Yair Dow MD [address] [place] [address] [phone] Social History Tobacco Use Types Packs/Day Years [...] 10:20 EST Office Visit [facility] Rheumatology & Immunology - [facility] [address] [place], [place] [phone] Micaela Hoff MD 111 [facility], Level [address] [place] [phone] documented as of this encounter Visit Diagnoses Not on filedocumented in this encounter Additional Health Concerns Infection Onset Date Last Indicated Resolved Time 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 Care Teams Property Damage Claims Adjustor Relationship Specialty Start Date End Date Yair Dow MD [address] [place] [phone] PCP - General 06/03/11 03/08/12 documented as of this encounter
--- OUTSIDE RECORDS SUMMARY | 2024-06-14 02:10 | XMS_ITS | Encounter Summary ---
Author Organization [facility] Address [address] [place] [address] Care Team Providers Care Plant Anatomy Teacher Name Role Phone Yair Dow MD Primary Care Provider [phone] Reason for Visit * Reason Comments Hypothyroidism Follow-up Encounter Details Date Type Department Care Team (Latest Contact Info) Description 06/12/2011 16:00 EDT Office Visit [facility] Endocrinology - [address] [phone] Tawny Abrams MD [address] [place] [address] Unspecified hypothyroidism (Primary Dx) Social History [...] encounter Patient Instructions * Patient Instructions* Tawny Arbams - 06/12/2011 16:33 EDT Stop thyroid for [...] january Smoking again moved to [place] Maurer [address] [address] Dear Ms Maurer: I had the pleasure of seeing your patient, Teri Haro, in follow up in the endocrine clinic todayfor goiter and hypothyroidism. 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 [...] [facility] Rheumatology & Immunology - [address] [address] Micaela Hoff MD [address] [place] [address], [address] [place] [address] documented as of this encounter Results * T4 FREE (09/15/2011 13:55 EST) Free T4 1.5 0.8 - 1.8 ng/dL [facility] Blood specimen (specimen) 09/15/2011 13:55 EST 09/15/2011 15:18 EST Tawny Abrams MD CHEMISTRY & BLOOD GA S ORDERABLES Performing Organization Address [facility] Phone Number [facility] [address] [address] * TSH (09/15/2011 13:55 EST) TSH 1.03 0.35 - 5.00 uIU/ml [facility] Blood specimen (specimen) 09/15/2011 13:55 EST 09/15/2011 15:18 EST Tawny Abrams MD CHEMISTRY & BLOOD GA S ORDERABLES Performing Organization Address [facility] Phone Number [facility] [address] [address] documented in this encounter Visit Diagnoses Diagnosis Unspecified hypothyroidism- Primary documented in this encounter Discontinued Medications Medication Sig Discontinue Reason Start Date End Da te levothyroxine (SYNTHROID) 25 mcg tablet Take 100 mcg by mouth daily. 06/12/2011 documented as of this encounter Care Teams Plant Anatomy Teacher Relationship Specialty Start Date End Date Yair Dow MD [address] [place] [phone] PCP - General 06/03/11 03/08/12 documented as of this encounter
--- OUTSIDE RECORDS SUMMARY | 2024-06-14 02:10 | XMS_ITS | Encounter Summary ---
Author Organization [facility] Address [address] [place] [address] Care Team Providers Care Accountant Systems Name Role Phone Yair Dow MD Primary Care Provider [phone] Encounter Details Date Type Department Care Team (Late st Contact Info) Description 11/18/2011 Phlebotomy Only [address] [address] [phone] Supervisor Wall Mirror Department, Outpatient Unspecified hypothyroidism; Chronic lymphocytic thyroiditis Social [...] [facility] - [address] [phone] Micaela Hoff MD 111 [facility], [facility] [address] [place] [phone] (work) documented as of this encounter Procedures [...] * T4 FREE (11/18/2011 9:42 EST) Pathologist [facility] Free T4 1.8 0.8 - 1.8 ng/dL [facility] Blood specimen (specimen) 11/18/2011 9:42 EST 11/18/2011 11:54 EST Drew Grijalva MD CHEMISTRY & BLOOD GAS ORDERABLES Performing Organization Address [facility] Co de Phone Number [facility] [address] [place] [address] * (ABNORMAL) TSH (11/18/2011 9:42 EST) Pathologist [facility] TSH 0.16(L) 0.35 - 5.00 uIU/ml [facility] Blood specimen (specimen) 11/18/2011 9:42 EST 11/18/2011 11:54 EST Drew Grijalva MD CHEMISTRY & BLOOD GAS ORDERABLES Performing Organization Address [facility] Co de Phone Number [facility] [address] [place] [address] * (ABNORMAL) THYROPEROXIDASE ANTIBODY (11/18/2011 9:42 EST) Thyroperoxidase Ab 296(H) <61 U/mL [facility] Blood specimen (specimen) 11/18/2011 9:42 EST 11/18/2011 11:54 EST Drew Grijalva MD CHEMISTRY & BLOOD GAS ORDERABLES Performing Organization Address [facility] Phone Number [facility] [address] [address] * ANTI THYROGLOBULIN (11/18/2011 9:42 EST) Thyroglobulin Ab 46 <61 U/mL [facility] Blood specimen (specimen) 11/18/2011 9:42 EST 11/18/2011 11:54 EST Drew Grijalva MD CHEMISTRY & BLOOD GAS ORDERABLES Performing Organization Address [facility] de Phone Number [facility] [address] [address] documented in this encounter Visit Diagnoses Diagnosis Unspecified hypothyroidism Chronic lymphocytic thyroiditis documented in this encounter Additional Health Concerns Infection Onset Date Last Indicated Resolved Time 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 Care Teams Accountant Systems Relationship Specialty Start Date End Date Yair Dow MD [address] [place] [address] PCP - General 06/03/11 03/08/12 documented as of this encounter
--- OUTSIDE RECORDS SUMMARY | 2024-06-14 02:10 | XMS_ITS | Encounter Summary ---
Author Organization [facility] Address [address] [place] [address] Care Team Providers Care Head Lineman Name Role Phone Yair Dow MD Primary Care Provider [phone] Reason for Visit * Reason Onset Date Comments Medications Refill 10/02/2011 Encounter Details Date Type Department Care Team (Late Contact Info) Description 10/02/2011 Refill [facility] Endocrinology - [address] [phone] Izabel Crawford RN CDE Medications Refill Social [...] [facility] Rheumatology & Immunology - [facility] [address] [place], [place] [phone] Micaela Hoff MD 111 [facility], Level 5 [place] [phone] documented as of this encounter Visit Diagnoses Not on filedocumented in this encounter Care Teams Head Lineman Relationship Specialty Start Date End Date Yair Dow MD [address] [place] [phone] PCP - General 06/03/11 03/08/12 documented as of this encounter
--- OUTSIDE RECORDS SUMMARY | 2024-06-14 02:10 | XMS_ITS | Encounter Summary ---
Author Organization [facility] Address [address] [place] [address] Care Team Providers Care Dance Entertainer Name Role Phone Yair Dow MD Primary Care Provider [phone] Reason for Visit * Reason Comments Wound Infection follow up Adenopathy painful Nausea Encounter Details Date Type Department Care Team (Late st Contact Info) Description 10/24/2011 15:30 EST Office Visit [address] [address] Kaylynn Rice MD [address] [address] Nausea (Primary Dx); Abscess Social [facility] - [address] [address] Micaela Hoff MD 111 [facility], Level 5 [place] [address] documented as of this encounter [...] documented as of this encounter Care Teams Dance Entertainer Relationship Specialty Start Date End Date Yair Dow MD [address] [place] [address] PCP - General 06/03/11 03/08/12 documented as of this encounter
--- OUTSIDE RECORDS SUMMARY | 2024-06-14 02:10 | XMS_ITS | Encounter Summary ---
Author Organization [facility] Address [address] [place] [address] Care Team Providers Care Head Nurse Name Role Phone Yair Dow MD Primary Care Provider [phone] Reason for Visit * Reason Onset Date Comments Results 01/26/2012 Encounter Details Date Type Department Care Team (Late st Contact Info) Description 01/26/[address] [address] Yair Dow MD [address] [place] [address] [facility] [address] [place] [address] Results Social History Tobacco Use [facility]ology - [address] [phone] Micaela Hoff MD 111 [facility], [address] [place] [address] documented as of this encounter Visit Diagnoses Not on filedocumented in this encounter Additional Health Concerns Infection Onset Date Last Indicated Resolved Time 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 Care Teams Head Nurse Relationship Specialty Start Date End Date Yair Dow MD [address] [place] [phone] PCP - General 06/03/11 03/08/12 documented as of this encounter
--- OUTSIDE RECORDS SUMMARY | 2024-06-14 02:10 | XMS_ITS | Encounter Summary ---
Author Organization [facility] Address [address] [place] [address] Care Team Providers Care Correctional Officer Chief Name Role Phone Yair Dow MD Primary Care Provider [phone] Encounter Details Date Type Department Care Team (Late st Contact Info) Description 03/01/2012 21:38 EDT - 03/01/2012 23:59 EDT Hospital Encounter [facility] [address] [place] [address] Kaylynn Rice MD [address] [phone] Discharge Disposition: Auto Discharge Social History Tobacco [...] Info) Description 12/29/2024 10:20 EST Office Visit [facility] Rheumatology & Immunology - [address] [address] Micaela Hoff MD 111 [facility], [address] [place] [address] documented as of this encounter Visit Diagnoses Not on filedocumented in this encounter Additional Health Concerns Infection Onset Date Last Indicated Resolved Time 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 Care Teams Correctional Officer Chief Relationship Specialty Start Date End Date Yair Dow MD [address] [place] [phone] PCP - General 06/03/11 03/08/12 documented as of this encounter
--- OUTSIDE RECORDS SUMMARY | 2024-06-14 02:10 | XMS_ITS | Encounter Summary ---
Author Organization [facility] Address [address] [place] [address] Care Team Providers Care Shovel Logger Name Role Phone Yair Dow MD Primary Care Provider [phone] Reason for Visit * Reason Onset Date Comments Paperwork request 02/02/2012 Encounter Details Date Type Department Care Team (Late st Contact Info) Description 02/02/[address] [address] Yair Dow MD [address] [place] [address] [phone] Paperwork request Social History Tobacco [...] 12/29/2024 10:20 EST Office Visit [facility] Rheumatology & Immunology - [facility] [address] [place], [place] [address] Micaela Hoff MD 111 [facility], Level [address] [place] [phone] documented as of this encounter Visit Diagnoses Not on filedocumented in this encounter Additional Health Concerns Infection Onset Date Last Indicated Resolved Time 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 Care Teams Shovel Logger Relationship Specialty Start Date End Date Yair Dow MD [address] [place] [address] PCP - General 06/03/11 03/08/12 documented as of this encounter
--- OUTSIDE RECORDS SUMMARY | 2024-06-14 02:10 | XMS_ITS | Encounter Summary ---
Author Organization [facility] Address [address] [place] [address] Care Team Providers Care Branch Examiner Name Role Phone Yair Dow MD Primary Care Provider [phone] Reason for Visit * Reason Comments Vaginal Discharge has noticed the last few days increase vaginal discharge; Smoking Cessation was on wellbutrin wo uld like to try this again Encounter Details Date Type Department Care Team (Late st Contact Info) Description 12/03/2011 14:00 [place] [address] Kaylynn Rice MD [address] [address] Screening for STD (sexually transmitted [...] [facility] Rheumatology & Immunology - [address] [address] Micaela Hoff MD [address] [place] [address], [address] [place] [address] documented as of this encounter [...] OF CARE TEST ORDERABLES Performing Organization Address [facility] Co de Phone Number POINT OF CARE * SYPHILIS SEROLOGY (12/03/2011 14:19 EST) Syphilis Serology Interpretation: Nonreactive [facility] Comment:Reference Range: Non reactive Blood specimen (specimen) 12/03/2011 14:19 EST 12/03/2011 19:28 EST Kaylynn Rice MD IMMUNOLOGY AND SERO LOGY ORDERABLES Performing Organization Address [facility] Co de Phone Number [facility] [address] [place] [address] * HIV 1/2 ANTIBODY (12/03/2011 14:19 EST) Pathologist [facility] HIV 1/2 Antibody Negative [facility] Comment:Reference Range: Neg ative Blood specimen (specimen) 12/03/2011 14:19 EST 12/03/2011 19:28 EST Kaylynn Rice MD IMMUNOLOGY AND SERO LOGY ORDERABLES Performing Organization Address [facility] de Phone Number [facility] [address] [place] [address] * CHLAMYDIA/GC AMPLIFIED (12/03/2011 14:19 EST) Pathologist [facility] Specimen Description Cervix [facility] Chlamydia Result No Chlamydia trachomatis DNA detected by site head mediated amplification. [facility] GC Result No Neisseria gonorrhoeae DNA detected by site head mediated amplification. [facility] Specimen of unknown material (specimen) 12/03/2011 14:19 EST 12/03/2011 19:41 EST Kaylynn Rice MD MICROBIOLOGY - GENE RAL ORDERABLES Performing Organization Address [facility] Co de Phone Number [facility] [address] [place] [address] documented in this encounter Visit Diagnoses Diagnosis [...] as of this encounter Care Teams Branch Examiner Relationship Specialty Start Date End Date Yair Dow MD [address] [place] [phone] PCP - General 06/03/11 03/08/12 documented as of this encounter
--- OUTSIDE RECORDS SUMMARY | 2024-06-14 02:10 | XMS_ITS | Encounter Summary ---
Author Organization [facility] Address [address] [place] [address] Care Team Providers Care Ambulatory Care Name Role Phone Yair Dow MD Primary Care Provider [phone] Reason for Visit * Reason Comments Wound Check pt here Sat for absc ess on left leg. Pt here for wound check Encounter Details Date Type Department Care Team (Late st Contact Info) Description 10/20/2011 15:59 EST - 10/20/2011 17:28 EST Emergency [facility] Emergency Department - [facility] [address] [place] [address] Jayson Bhakta, PA-C [address] [place] [address] Emergency, MD Fede Wound check, abscess Discharge [...] Self Group Home documented in this encounter ED Notes [...] Father 50 [place] ??? Diabetes Father ??? Cancer Maternal Aunt thyroid ??? Heart Disease Maternal Grandmother [place] ??? [...] encounter Miscellaneous Notes * Scanned Note-Null - Manufacturing Engineer Automotive, Scan - 10/21/2011 5935 EST documented in this encounter Plan of Treatment Upcoming Encounters Date Type Department Care Team (Late st Contact Info) Description 12/29/2024 10:20 EST Office Visit [facility] Rheumatology & Immunology - [address] [address] Micaela Hoff MD 111 [facility], [address] [place] [phone] documented as of this encounter Visit Diagnoses Diagnosis Wound check, abscess Encounter for other specified aftercare documented in this encounter Additional Health Concerns Infection Onset Date Last Indicated Resolved Time 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 Care Teams Ambulatory Care Relationship Specialty Start Date End Date Yair Dow MD [address] [place] [address] PCP - General 06/03/11 03/08/12 documented as of this encounter
--- OUTSIDE RECORDS SUMMARY | 2024-06-14 02:10 | XMS_ITS | Encounter Summary ---
Author Organization [facility] Address [address] [place] [address] Care Team Providers Care Polysilicon Preparation Worker Name Role Phone Yair Dow MD Primary Care Provider [phone] Encounter Details Date Type Department Care Team (Late st Contact Info) Description 12/12/[address] [phone] Yair Dow MD [address] [place] [address] [phone] Social History Tobacco Use Types Packs/Day Years [...] Description 12/29/2024 10:20 EST Office Visit [facility] Rheumatology & Immunology - [facility] [address] [place], [place] [phone] Micaela Hoff MD 111 [facility], [address] [place] [phone] documented as of this encounter Visit Diagnoses Not on filedocumented in this encounter Additional Health Concerns Infection Onset Date Last Indicated Resolved Time 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 Care Teams Polysilicon Preparation Worker Relationship Specialty Start Date End Date Yair Dow MD [address] [place] [phone] PCP - General 06/03/11 03/08/12 documented as of this encounter
--- OUTSIDE RECORDS SUMMARY | 2024-06-14 02:10 | XMS_ITS | Encounter Summary ---
Author Organization [facility] Address [address] [place] [address] Care Team Providers Care Radiologic Therapist Name Role Phone Yair Dow MD Primary Care Provider [phone] Reason for Visit * Reason Comments Cellulitis ? from a tatoo on he r left leg history 24 hours Encounter Details Date Type Department Care Team (Late st Contact Info) Description 10/13/2011 16:30 EST Office Visit [facility] [address] [place], [place] [phone] Vishnu Gustafson MD [address] [place] [address] Cellulitis; Folliculitis Social History Tobacco [...] Visit [facility] Rheumatology & Immunology - [address] [address] Micaela Hoff MD 111 [facility], [address] [place] [phone] documented as of this encounter Visit Diagnoses Diagnosis Cellulitis Cellulitis and abscess of unspecified site Folliculitis Other specified disease of hair and hair follicles documented in this encounter Discontinued Medications Medication Sig Discontinue Reason Start Date End Da te LEVONORGESTREL (MIRENA IU) by Intrauterine route. Every 5 years Therapy completed 10/13/2011 documented as of this encounter Care Teams Radiologic Therapist Relationship Specialty Start Date End Date Yair Dow MD [address] [place] [address] PCP - General 06/03/11 03/08/12 documented as of this encounter
--- OUTSIDE RECORDS SUMMARY | 2024-06-14 02:10 | XMS_ITS | Encounter Summary ---
Author Organization [facility] Address [address] [place] [address] Care Team Providers Care Instrument Fitter Name Role Phone Yair Dow MD Primary Care Provider [phone] Reason for Visit * Reason Comments Hypothyroidism New Patient Visit former Dr. Abrams pt Encounter Details Date Type Department Care Team (Latest Contact Info) Description 11/18/2011 8:30 EST Office Visit [facility] Endocrinology - [facility] [address] [place] [address] Drew Grijalva MD [address] [facility] [address] [place] [address] Unspecified hypothyroidism; Chronic lymphocytic thyroiditis [...] and hypothyroidism. 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 with [...] day from her home to classes at [employer] and carrying a 30-hour per week [...] Value Date FREET4 1.5 09/15/2011 Utilizing a SonmodulRte System, a biplanar B-mode ultrasound was performed [...] documented in this encounter Procedure Notes * News Production Assistant, Daniela - 11/18/2011 1428 ESTAssociated Order(s): RADIOLOGY - SCANNED documented in this encounter Plan of Treatment Upcoming Encounters Date Type Department Care Team (Late Contact Info) Description 12/29/2024 10:20 EST Office Visit [facility] Rheumatology & Immunology - [facility] [address] [place] [address] Micaela Hoff MD 111 [facility], [address] [place] [address] documented as of this encounter Procedures Procedure Name Priority Date/Time Associated Diagnosis Comments RADIOLOGY - SCANNED 11/18/2011 1 4:28 EST ENDOCRINE CLINIC US THYROID Routine 11/18/2011 Unspecified hypothyroidism Chronic lymphocytic thyroiditis documented in this encounter Results * RADIOLOGY - SCANNED (11/18/2011 14:28 EST) Anatomical Region Laterality Modality Other 11/18/2011 14:2 8 EST Narrative Transcriptions News Production Assistant, Scan - 11/18/2011 14:28 EST Scan News Production Assistant IMG OTHER IMAGING OR DERABLES * T4 FREE (11/18/2011 9:42 EST) Free T4 1.8 0.8 - 1.8 ng/dL [facility] Blood specimen (specimen) 11/18/2011 9:42 EST 11/18/2011 11:54 EST Drew Grijalva MD CHEMISTRY & BLOOD GAS ORDERABLES [facility] [address] [place] [address] * (ABNORMAL) TSH (11/18/2011 9:42 EST) TSH 0.16(L) 0.35 - 5.00 uIU/ml [facility] Blood specimen (specimen) 11/18/2011 9:42 EST 11/18/2011 11:54 EST Drew Grijalva MD CHEMISTRY & BLOOD GAS ORDERABLES Performing Organization Address [facility] de Phone Number [place] [address] * (ABNORMAL) THYROPEROXIDASE ANTIBODY (11/18/2011 9:42 EST) Thyroperoxidase Ab 296(H) <61 U/mL F [facility] Blood specimen (specimen) 11/18/2011 9:42 EST 11/18/2011 11:54 EST Drew Grijalva MD CHEMISTRY & BLOOD GAS ORDERABLES Performing Organization Address [facility] Phone Number [place] [address] * ANTI THYROGLOBULIN (11/18/2011 9:42 EST) Thyroglobulin Ab 46 <61 U/mL [facility] Blood specimen (specimen) 11/18/2011 9:42 EST 11/18/2011 11:54 EST Drew Grijalva MD CHEMISTRY & BLOOD GAS ORDERABLES Performing Organization Address [facility] Phone Number [place] [address] * ENDOCRINE CLINIC US THYROID (11/18/2011) Anatomical Region Laterality Modality Other Impressions 11/18/2011 Utilizing a SonWattics System, a biplanar B-mode ultrasound was performed [...] as of this encounter Care Teams Instrument Fitter Relationship Specialty Start Date End Date Yair Dow MD [address] [place] [phone] PCP - General 06/03/11 03/08/12 documented as of this encounter
--- OUTSIDE RECORDS SUMMARY | 2024-06-14 02:10 | XMS_ITS | Encounter Summary ---
Author Organization [facility] Address [address] [place] [address] Care Team Providers Care Ccu Nurse Name Role Phone Yair Dow MD Primary Care Provider [phone] Reason for Visit * Reason Onset Date Comments Cellulitis 10/18/2011 Encounter Details Date Type Department Care Team (Late st Contact Info) Description 10/18/[address] [phone] Loren Singletary MD [address] [place], [place] [phone] Cellulitis Social History Tobacco Use Types Packs/Day [...] Telephone Encounter - Loren Singletary - 10/18/2011 2022 EST 31 year old female seen for [...] Info) Description 12/29/2024 10:20 EST Office Visit [facility] Rheumatology & Immunology - [address] [address] Micaela Hoff MD 111 [facility], [address] [place] [address] documented as of this encounter Visit Diagnoses Not on filedocumented in this encounter Care Teams Ccu Nurse Relationship Specialty Start Date End Date Yair Dow MD [address] [place] [address] PCP - General 06/03/11 03/08/12 documented as of this encounter
--- OUTSIDE RECORDS SUMMARY | 2024-06-14 02:10 | XMS_ITS | Encounter Summary ---
Author Organization [facility] Address [address] [place] [address] Care Team Providers Care Roller Checker Name Role Phone Yair Dow MD Primary Care Provider [phone] Reason for Visit * Reason Onset Date Comments Other 01/14/2012 Encounter Details Date Type Department Care Team (Late st Contact Info) Description 01/14/[address] [address] Yair Dow MD [address] [place] [address] DR [facility] [address] [place] [address] Other Social History Tobacco Use [...] Office Visit [facility] Rheumatology & Immunology - [address] [address] Micaela Hoff MD [address] [place] [address], [address] [place] [address] documented as of this encounter Visit Diagnoses Not on filedocumented in this encounter Additional Health Concerns Infection Onset Date Last Indicated Resolved Time 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 Care Teams Roller Checker Relationship Specialty Start Date End Date Yair Dow MD [address] [place] [address] PCP - General 06/03/11 03/08/12 documented as of this encounter
--- OUTSIDE RECORDS SUMMARY | 2024-06-14 02:10 | XMS_ITS | Encounter Summary ---
Author Organization [facility] Address [address] [place] [address] Care Team Providers Care Physiology Teacher Name Role Phone Yair Dow MD Primary Care Provider [phone] Unknown, Provider Primary Care Provider [phone] Ladonna Maurer Primary Care Provider [phone] Cara Arteaga MD Primary Care Provider Conor Angel MD Primary Care Provider [phone] None, Provider Primary Care Provider Kaylynn Pizarro MD Primary Care Provider [phone] Reason for Visit * Reason Comments Other Encounter Details Date Type Department Care Team (Late st Contact Info) Description 12/20/2011 Refill [facility] Endocrinology - [facility] [address] [place] [address] Drew Grijalva MD [address] [place] [address] [address] [place] [address] Other Social History Tobacco Use [...] Office Visit [facility] Rheumatology & Immunology - [address] [address] Micaela Hoff MD 111 [facility], [address] [place] [address] documented as of this encounter Visit Diagnoses Not on filedocumented in this encounter Discontinued Medications Medication Sig Discontinue Reason Start Date End Da te levothyroxine (SYNTHROID) 88 mcg tablet Take 1 Tab by mouth daily. Reorder 10/02/2011 12/20/2011 documented as of this encounter Additional Health Concerns Infection Onset Date Last Indicated Resolved Time 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 Care Teams Physiology Teacher Relationship Specialty Start Date End Date Yair Dow MD [address] [facility] [address] [place] [phone] PCP - General 06/03/11 03/08/12 Unknown, MD Jake PCP - General 03/09/12 05/11/12 Ladonna Maurer PA [address] [place] [address] PCP - General 05/12/12 01/24/13 Cara Arteaga MD [address] [place] [phone] PCP - General 01/25/13 02/06/[address] [facility] [place] [address] PCP - General 02/07/14 06/08/14 None, Provider PCP - General 06/09/14 03/01/15 Kaylynn Gimenez MD [address] [place] [phone] PCP - General 03/02/15 documented as of this encounter
--- OUTSIDE RECORDS SUMMARY | 2024-06-14 02:10 | XMS_ITS | Encounter Summary ---
Author Organization [facility] Address [address] [place] [address] Care Team Providers Care Medical Billing Specialist Name Role Phone Yair Dow MD Primary Care Provider [phone] Reason for Visit * Reason Onset Date Comments Cellulitis 10/14/2011 MRSA INFECTION - SAW DR HERNANDEZ 10/13/11 Encounter Details Date Type Department Care Team (Late st Contact Info) Description 10/14/[address] [address] Yair Dow MD [address] [place] [address] [address] Cellulitis (MRSA INFECTION - SAW [...] [facility] Rheumatology & Immunology - [address] [address] Micaela Hoff MD 111 [facility], [address] [place] [phone] documented as of this encounter Visit Diagnoses Not on filedocumented in this encounter Care Teams Medical Billing Specialist Relationship Specialty Start Date End Date Yair Dow MD [address] [place] [phone] PCP - General 06/03/11 03/08/12 documented as of this encounter
--- OUTSIDE RECORDS SUMMARY | 2024-06-14 02:10 | XMS_ITS | Encounter Summary ---
Author Organization [facility] Address [address] [place] [address] Care Team Providers Care Photography Colorist Name Role Phone Yair Dow MD Primary Care Provider [phone] Reason for Visit * Reason Onset Date Comments Results 03/04/2012 Encounter Details Date Type Department Care Team (Late st Contact Info) Description 03/04/[address] [address] Yair Dow MD [address] [place] [address] DR [facility] [address] [place] [address] Results Social History Tobacco Use [...] that bad she should go to the [facility] today to be seen and evaluated. Patient [...] Description 12/29/2024 10:20 EST Office Visit [facility] Rheumatology & Immunology - [address] [phone] Micaela Hoff MD 111 [facility], Level 5 [place] [phone] documented as of this encounter Visit Diagnoses Not on filedocumented in this encounter Additional Health Concerns Infection Onset Date Last Indicated Resolved Time 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 Care Teams Photography Colorist Relationship Specialty Start Date End Date Yair Dow MD [address] [place] [phone] PCP - General 06/03/11 03/08/12 documented as of this encounter
--- OUTSIDE RECORDS SUMMARY | 2024-06-14 02:10 | XMS_ITS | Encounter Summary ---
Author Organization [facility] Address [address] [place] [address] Care Team Providers Care Ore Puncher Name Role Phone Ladonna Maurer Primary Care Provider [phone] Reason for Visit * Reason Comments Abdominal [...] 19:30 EDT - 05/11/2011 22:23 EDT Emergency [facility] - [address] [id number] Juan Alberto Farley PA-Jose A 111 [facility], Level 1 [place] [address] Emergency, MD Fede Chronic generalized [...] ABDOMINAL PAIN IN ADULTS: AFTER YOUR VISIT (SENEGALESE) * IRRITABLE BOWEL SYNDROME: AFTER YOUR VISIT (SENEGALESE) documented in this encounter Medications at Time [...] 2 days from a different part of [place]. She is trying to obtain a primary care physician and states she is waiting for her medical records to [facility]. The history is provided by the patient. [...] Stroke Mother ??? Heart Disease Father 50 [place] ??? Diabetes Father ??? Cancer Maternal Aunt thyroid ??? Heart Disease Maternal Grandmother [place] ??? Diabetes Maternal Grandmother ??? Cancer Maternal [...] encounter Miscellaneous Notes * Scanned Note-Null - Manager Life, Scan - 05/11/2011 0000 EDT documented in this encounter Plan of Treatment Upcoming Encounters Date Type Department Care Team (Late st Contact Info) Description 12/29/2024 10:20 EST Office Visit [place]ology - [address] [address] Micaela Hoff MD 111 [facility], [address] [place] [phone] documented as of this encounter Visit Diagnoses Diagnosis Chronic generalized abdominal pain Abdominal pain, generalized documented in this encounter Care Teams Ore Puncher Relationship Specialty Start Date End Date Ladonna Maurer PA [address] [place] [address] PCP - General 05/20/10 06/02/11 documented as of this encounter
--- OUTSIDE RECORDS SUMMARY | 2024-06-14 02:10 | XMS_ITS | Encounter Summary ---
Author Organization [facility] Address [address] [place] [address] Care Team Providers Care Exercise Rider Name Role Phone Yair Dow MD Primary Care Provider [phone] Encounter Details Date Type Department Care Team (Latest Contact Info) Description 02/03/2012 12:32 EDT - 02/03/2012 23:59 EDT Hospital Encounter [facility] [address] [place] [address] Kenton Johnston MD Discharge Disposition: Home or [...] Code Departure Means Destination Home or Self [facility] documented in this encounter H&P Notes * Kenton Johnston MD - 02/03/2012 1346 EDT Sedation for Procedure History & Physical Date: 02/03/2012 Time: 13:46 Location: [address] Planned Procedure: Gastroscopy Chief Complaint/Indications for Procedure: Abdominal pain. History Previous Complication with Sedation and/or Anesthesia? No Allergies: No Known Allergies Current Medications: (Not in a hospital admission) Past Medical History: Past Medical History Diagnosis Date ??? Obese ??? History of tobacco use ??? Thyroid disease Social History: Past Surgical History Procedure Date ??? Upper gastrointestinal endoscopy 09/03/2010 ??? [place] tooth extraction History Substance Use Topics ??? Smoking status: Current Everyday Smoker -- 0.5 packs/day ??? Smokeless tobacco: Never Used ??? Alcohol Use: 10.0 oz/week 2 Glasses of wine per week rare Family History: Family History Problem Relation Age of Onset ??? High Blood Pressure Mother brain aneurysm ??? Stroke Mother ??? Heart Disease Father 50 [place] ??? Diabetes Father ??? Thyroid Cancer/Nodule Maternal Aunt Cancer ??? Heart Disease Maternal Grandmother MD ??? Diabetes Maternal Grandmother ??? Cancer Maternal [...] documented in this encounter Procedure Notes * EMERGENCY MANAGEMENT PROGRAM SPECIALIST, SCAN 2 - 02/04/2012 0802 EDTAssociated Order(s): PROCEDURE REPORTS - SCANNED documented in this encounter Miscellaneous Notes * Scanned Note-Null - EMERGENCY MANAGEMENT PROGRAM SPECIALIST, SCAN 2 - 02/04/2012 1012 EDT * Scanned Note-Null - EMERGENCY MANAGEMENT PROGRAM SPECIALIST, SCAN 2 - 02/04/2012 1012 EDT documented in this encounter Plan of Treatment Upcoming Encounters Date Type Department Care Team (Late st Contact Info) Description 12/29/2024 10:20 EST Office Visit [facility] Rheumatology & Immunology - [address] [phone] Micaela Hoff MD [address] [place] [address], [address] [place] [address] documented as of this encounter Procedures Procedure Name Priority Date/Time Associated Diagnosis Comments PROCEDURE REPORTS - SCANNED 02/04/2012 8:02 EDT TISSUE TRANSGLUTAMINASE ANTIBODY, IGA Routine 02/03/2012 13:40 EDT documented in this encounter Results * PROCEDURE REPORTS - SCANNED (02/04/2012 8:02 EDT) 02/04/2012 8:02 EDT Narrative Transcriptions EMERGENCY MANAGEMENT PROGRAM SPECIALIST, SCAN 2 - 02/04/2012 8:02 EDT Scan 2 Driller Multiple Spindle PROCEDURE/MINOR GERI GICAL ORDERABLES * TTG AB, IGA, S (02/03/2012 13:40 EDT) tTG Ab, IgA, S <1.2 <4.0 (Negative) U/mL [facility] Comment: Performed by: [email or web address], [address], [place] [address], Mellowing Machine Operator: Estephania Guallpa, Ph.D. Blood specimen (specimen) 02/03/2012 13:40 EDT 02/03/2012 14:11 EDT Qasim Graves MD IMMUNOLOGY AND SER OLOGY ORDERABLES Performing Organization Address City/State/[facility] Co de Phone Number [facility] [address] [place] [address] documented in this encounter Visit Diagnoses Not [...] documented as of this encounter Care Teams Exercise Rider Relationship Specialty Start Date End Date Yair Dow MD [address] [place] [phone] PCP - General 06/03/11 03/08/12 documented as of this encounter
--- OUTSIDE RECORDS SUMMARY | 2024-06-14 02:10 | XMS_ITS | Encounter Summary ---
Author Organization [facility] Address [address] [place] [address] Care Team Providers Care Hat Model Name Role Phone Yair Dow MD Primary Care Provider Reason for Referral * Consult (Routine/Next Available) - Closed Specialty Diagnoses / Procedures Referred By Contact Referred To Contact Gastroenterology and Hepatology Diagnoses Bloating Abdominal pain Kaylynn Rice MD [address] [address] [facility] [address] [place] [address] Referral ID Status Reason Start Date Expiration Date V isits Requested Visits Authorized [id number] Closed Specialty Services Required 02/10/2012 1 1 [...] Info) Description 02/10/2012 13:30 [place] [address] Kaylynn Rice MD [address] [phone] Abdominal pain; Bloating; Headache; Dizziness; Numbness; Fatigue [...] 68.493 kg (151 lb) BMI 23.65 kg/m2 HqJ588% LMP 12/17/2011 Physical Exam Vitals reviewed. Constitutional: [...] [facility] Rheumatology & Immunology - [address] [phone] Micaela Hoff MD [address] [place] [address], [address] [place] [address] Scheduled Referrals Name Type Priority [...] 01, 2012 11:04:00 PM Signs and Symptoms/Comments: ??784.2-QSYGJBLM-BIQ-9-CM 780.4-DIZZINESS AND ZZKYKNSPA-ZBX-6-CM Worsening fatigue, numbness/weakness, blurry vision, dizziness. ??Rule [...] 01, 2012 11:04:00 PM Signs and Symptoms/Comments: 784.0-UAIMKPKQ-TBP-9-CM 780.4-DIZZINESS AND MJKVLXVKG-UOS-6-CM Worsening fatigue, numbness/weakness, blurry vision, dizziness. Rule [...] documented as of this encounter Care Teams Hat Model Relationship Specialty Start Date End Date Yair Dow MD [address] [place] [phone] PCP - General 06/03/11 03/08/12 documented as of this encounter
--- OUTSIDE RECORDS SUMMARY | 2024-06-14 02:10 | XMS_ITS | Encounter Summary ---
Author Organization [facility] Address [address] [place] [address] Care Team Providers Care Machine Plate Stacker Name Role Phone Yair Dow MD Primary Care Provider [phone] Reason for Visit * Reason Comments Contraception IUD removal Encounter Details Date Type Department Care Team (Late st Contact Info) Description 07/31/2011 9:45 EDT Office Visit [facility] [address] [place], [place] [address] Vishnu Gustafson MD [address] [place] [address] Contraception (Primary Dx) Social History [...] to have removed and go back on [id number] that she had done well on before [...] Info) Description 12/29/2024 10:20 EST Office Visit [facility] Rheumatology & Immunology - [address] [address] Micaela Hoff MD [address] [place] [address], [address] [place] [address] documented as of this encounter Visit Diagnoses Diagnosis Contraception- Primary Unspecified contraceptive management documented in this encounter Care Teams Machine Plate Stacker Relationship Specialty Start Date End Date Yair Dow MD [address] [place] [address] PCP - General 06/03/11 03/08/12 documented as of this encounter
--- OUTSIDE RECORDS SUMMARY | 2024-06-14 02:10 | XMS_ITS | Encounter Summary ---
Author Organization [facility] Address [address] [place] [address] Care Team Providers Care Vacation Sales Advisor Name Role Phone Yair Dow MD Primary Care Provider [phone] Reason for Visit * Reason Comments Fatigue follow up ED Encounter Details Date Type Department Care Team (Late st Contact Info) Description 01/19/2012 16:00 EDT Office Visit [address] [address] Kaylynn Rice MD [address] [address] Abdominal pain; Fatigue; Dry eyes [...] [facility] Rheumatology & Immunology - [address] [address] Micaela Hoff MD [address] [place] [address], [address] [place] [address] Scheduled Orders Name Type Priority [...] U/mL [facility] Comment: Performed by: [facility], [address], [place] [address], Marking Machine Tender: Estephania Guallpa, Ph.D. Blood specimen (specimen) 01/19/2012 16:29 EDT 01/19/2012 19:50 EDT Kaylynn Rice MD IMMUNOLOGY AND SERO LOGY ORDERABLES Performing Organization Address [facility] Co de Phone Number [facility] [address] [place] [address] * ENDOMYSIAL ANTIBODY, SERUM (01/19/2012 16:29 EDT) Endomysial Antibodies Negative Negative [facility] Comment: (Note) Negative in normal Individuals. May be negative in dermatitis herpatiformis or celiac disease patients adhering to a gluten free diet. Laboratory developed test. Performed or Referred by: [facility], [address] [place] [address], Lab Dir: Juan Coto III, MD Blood specimen (specimen) 01/19/2012 16:29 EDT 01/19/2012 19:50 EDT Kaylynn Rice MD IMMUNOLOGY AND SERO LOGY ORDERABLES Performing Organization Address City/[facility] Co de Phone Number [facility] [address] [place] [address] * ANCA (01/19/2012 16:29 EDT) ANCA Neg Neg Dils [facility] Blood specimen (specimen) 01/19/2012 16:29 EDT 01/19/2012 19:50 EDT Kaylynn Rice MD IMMUNOLOGY AND SERO LOGY ORDERABLES Performing Organization Address [facility] de Phone Number [facility] [address] [place] [address] * SSA/SSB (01/19/2012 16:29 EDT) SS A/Ro Ab, IgG, S <0.2 <1.0 (Negative) U [facility] SS B/La Ab, IgG, S <0.2 <1.0 (Negative) U [facility] Comment: Performed by: [facility], [address], [place] [address], Marking Machine Tender: Estephania Guallpa, Ph.D. Blood specimen (specimen) 01/19/2012 16:29 EDT 01/19/2012 19:50 EDT Kaylynn Rice MD CHEMISTRY & BLOOD G ORDERABLES Performing Organization Address [facility] de Phone Number [facility] [address] [place] [address] * RHEUMATOID FACTOR (01/19/2012 16:29 EDT) Rheumatoid Factor <20 <20 IU/ml [facility] Blood specimen (specimen) 01/19/2012 16:29 EDT 01/19/2012 19:50 EDT Kaylynn Rice MD CHEMISTRY & BLOOD G ORDERABLES Performing Organization Address [facility] Co de Phone Number [facility] [address] [place] [address] * ANTI NUCLEAR ANTIBODY (01/19/2012 16:29 EDT) Anti Nuclear Ab <40 0 - 40 Dils [facility] Blood specimen (specimen) 01/19/2012 16:29 EDT 01/19/2012 19:50 EDT Kaylynn Rice MD IMMUNOLOGY AND SERO LOGY ORDERABLES Performing Organization Address [facility] Co de Phone Number [facility] [address] [place] [address] * SED. RATE:LAURE (01/19/2012 16:29 EDT) Sed. Rate Adeleren 10 0 - 20 mm/hr [facility] Blood specimen (specimen) 01/19/2012 16:29 EDT 01/19/2012 19:50 EDT Kaylynn Rice MD HEMATOLOGY & PF4 OR DERABLES Performing Organization Address [facility] de Phone Number [facility] [address] [place] [address] documented in this encounter Visit Diagnoses Diagnosis [...] documented as of this encounter Care Teams Vacation Sales Advisor Relationship Specialty Start Date End Date Yair Dow MD [address] [place] [phone] PCP - General 06/03/11 03/08/12 documented as of this encounter
--- OUTSIDE RECORDS SUMMARY | 2024-06-14 02:10 | XMS_ITS | Encounter Summary ---
Author Organization [facility] Address [address] [place] [address] Care Team Providers Care Transfer Machine Operator Name Role Phone Yair Dow MD Primary Care Provider [phone] Reason for Referral * Consult (Routine/Next Available) - Closed Specialty Diagnoses / Procedures Referred By [facility] Referred To Contact Rheumatology Diagnoses Fatigue Weakness Myalgia Kaylynn Rice MD [address] [address] [place] [address] Rheumatology [address] [place] [address] Referral ID Status Reason Start Date Expiration Date V isits Requested Visits Authorized [id number] Closed Specialty Services Required 03/02/2012 1 1 Question Answer Reason for Request: Worsening fatigue, myalgias, weakness. Rheum labs neg, ?fibromyalgia. Reason for Visit * Reason Comments Strep Throat ? Urinary Tract Infection medicated- sympt oms returned Results MRI Medication Management omeprozole Encounter Details Date Type Department Care Team (Late st Contact Info) Description 03/02/2012 15:00 EDT Office Visit [address] [address] Kaylynn Rice MD [address] [address] Urgency of urination (Primary Dx); Peptic ulcer [...] Progress Notes * Stephany Lambert - 03/02/2012 8975 EDT POC rapid strep negative POC urine [...] ago. Saw a doctor up in the [facility] and treated with nitrofurantoin x5 days. Symptoms [...] Color DARK YELLOW Clarity, UA CLOUDY Specific [place] >=1.030 pH 6.0 Glucose Neg Bilirubin Neg [...] [facility] Rheumatology & Immunology - [address] [address] Micaela Hoff MD [address] [place] [address], [address] [place] [address] Scheduled Referrals Name Type Priority [...] - GENE RAL ORDERABLES Performing Organization Address [facility] de Phone Number [facility] [address] [place] [address] * (ABNORMAL) POCT URINE DIPSTICK (03/02/2012 15:41 EDT) Color DARK YELLOW [facility] Clarity, UA CLOUDY [facility] Glucose Neg Neg [facility] Bilirubin Neg Neg [facility] Ketones Neg Neg [facility] Specific [place] >=1.030 1.001 - 1.035 [facility] Blood 3+(A) Neg [facility] pH 6.0 4.6 - 8.0 [facility] Protein 2+(A) Neg [facility] Urobilinogen 0.2 0.2 - 1.0 E.U./dl [facility] Nitrite Neg Neg [facility] Leuk Esterase 2+(A) Neg KAROLINA [facility] certified personal chef ID [id number] [facility] Comment:Test performed at [facility] Urine specimen (specimen) 03/02/2012 15:41 EDT 03/02/2012 15:42 EDT Kaylynn Rice MD POINT OF CARE TEST ORDERABLES Performing Organization Address [facility] de Phone Number [facility] [address] [place] [address] * PHARYNGITIS CULTURE (03/02/2012 15:38 EDT) Specimen Description Throat [facility] Result No group A beta streptococci isolated. Usual karen-pharyngeal marquita. [facility] Report Status 03/05/2012 Final [facility] Specimen from throat (specimen) 03/02/2012 15:38 EDT 03/02/2012 18:45 EDT Kaylynn Rice MD MICROBIOLOGY - GENE RAL ORDERABLES [facility] [address] [place] [address] * POCT RAPID STREP SCREEN (03/02/2012 15:34 [...] documented as of this encounter Care Teams Transfer Machine Operator Relationship Specialty Start Date End Date Yair Dow MD [address] [place] [address] PCP - General 06/03/11 03/08/12 documented as of this encounter
--- OUTSIDE RECORDS SUMMARY | 2024-06-14 02:10 | XMS_ITS | Encounter Summary ---
Author Organization [facility] Address [address] [place] [address] Care Team Providers Care Remedial Masseur Name Role Phone Yair Dow MD Primary Care Provider [phone] Reason for Visit * Reason Comments New [...] Info) Description 07/14/2011 16:00 EDT Office Visit [address] [address] Yair Dow MD [address] [place] [place] [address] [address] Peptic ulcer disease (Primary Dx); [...] to our practice today moving here from [facility]. Her main concern today is fatigue. She [...] had an ultrasound but on exam her dining host did not think IUD was related. No [...] except - some diffuse myalgias which her orthopedic physician assistant told her could be related to her [...] Stroke Mother ??? Heart Disease Father 50 [place] ??? Diabetes Father ??? Cancer Maternal Aunt thyroid ??? Heart Disease Maternal Grandmother [place] ??? Diabetes Maternal Grandmother ??? Cancer Maternal [...] pelvic ultrasound 7) f/u 1 month for rodding machine tender exam and consideration of IUD removal if it seems prudent after above work-up. documented in this encounter Plan of Treatment Upcoming Encounters Date Type Department Care Team (Late st Contact Info) Description 12/29/2024 10:20 EST Office Visit [facility] Rheumatology & Immunology - [facility] [address] [place] [address] Micaela Hoff MD 111 [facility], [address] [place] [phone] documented as of this encounter Results * HEMOGLOBIN A1C (09/15/2011 13:56 EST) Pathologist [facility] Hemoglobin A1C 5.2 % [facility] Comment: [...] GA S ORDERABLES Performing Organization Address City/[facility]/ZIP Co de Phone Number [facility] [address] [address] * VITAMIN D (25,OH) (09/15/2011 13:56 EST) Pathologist [facility] 25OH Vitamin D Tot 35.9 ng/ml [facility] Comment: Reference Range: <10 ng/ml: Deficient 10-30 ng/ml: Insufficient 30-100 ng/ml: Sufficient >100 ng/ml: Toxic Blood specimen (specimen) 09/15/2011 13:56 EST 09/15/2011 15:18 EST Yair Dow MD CHEMISTRY & BLOOD GA S ORDERABLES [facility] [address] [place] [address] * HEMAGRAM AND DIFFERENTIAL (09/15/2011 13:56 EST) Pathologist [facility] WBC 7.37 4.0 - 12.4 K/cmm [facility] [...] DNA PROBE ORDERABLES [facility] [address] [place] [address] * TTG AB, IGA, S (09/15/2011 13:56 EST) Pathologist [facility] tTG Ab, IgA, S <1.3 <4.0 U/mL [facility] Comment: (Note) <4 U/mL (Negative) Performed by: [facility], [address], [place] [address], Mapper: Estephania Guallpa, Ph.D. Blood specimen (specimen) 09/15/2011 13:56 EST 09/15/2011 15:18 EST Yair Dow MD IMMUNOLOGY AND FRANCIS WEEMS ORDERABLES [facility] [address] [place] [address] documented in this encounter Visit Diagnoses Diagnosis [...] documented as of this encounter Care Teams Remedial Masseur Relationship Specialty Start Date End Date Yair Dow MD [address] [place] [phone] PCP - General 06/03/11 03/08/12 documented as of this encounter
--- OUTSIDE RECORDS SUMMARY | 2024-06-14 02:10 | XMS_ITS | Encounter Summary ---
Author Organization [facility] Address [address] [place] [address] Care Team Providers Care Piece Work Inspector Name Role Phone Yair Dow MD Primary Care Provider [phone] Reason for Visit * Reason Comments Abscess I have an infected abscess on my leg onset Thursday night. extensive tattoo done on left leg 10 hour in last 4 weeks. Encounter Details Date Type Department Care Team (Late st Contact Info) Description 10/18/2011 18:48 EST - 10/18/2011 21:02 EST Emergency [facility] Emergency Department - Main [place] [address] [place] [address] Robin Randhawa MD 111 [facility], Level 1 [place] [phone] Emergency, MD Fede Abscess of left leg [...] Everywhere. * SKIN ABSCESS: AFTER YOUR VISIT (GREEK) documented in this encounter Medications at Time [...] Code Departure Means Destination Home or Self Halfway documented in this encounter ED Notes * [...] Stroke Mother ??? Heart Disease Father 50 [place] ??? Diabetes Father ??? Cancer Maternal Aunt thyroid ??? Heart Disease Maternal Grandmother [place] ??? Diabetes Maternal Grandmother ??? Cancer Maternal [...] to verify the correct patient, procedure, equipment, patient support associate and site/side marked as required. [...] encounter Miscellaneous Notes * Scanned Note-Null - Platen Press Operator Apprentice, Scan - 10/23/2011 0654 EST documented in this encounter Plan of Treatment Upcoming Encounters Date Type Department Care Team (Late st Contact Info) Description 12/29/2024 10:20 EST Office Visit [facility] Rheumatology & [place] [address] Micaela Hoff MD 111 [facility], Level [address] [place] [address] documented as of this encounter [...] Stroke Mother ? Heart Disease Father 50 ??ND ? ? Diabetes Father ? Cancer Maternal Aunt ?thyroid ? ? Heart Disease Maternal Grandmother ?ND ? ? Diabetes Maternal Grandmother ? Cancer [...] to verify the correct patient, procedure, equipment, patient support associate and site/side marked as required. [...] Mother ? ? Heart Disease Father 50 [place] ? ? Diabetes Father ? ? Cancer Maternal Aunt thyroid ? ? Heart Disease Maternal Grandmother [place] ? ? Diabetes Maternal Grandmother ? ? [...] called to verifythe correct patient, procedure, equipment, patient support associate and site/sidemarked as required. Type: [...] resistant staphylococcus coagulase positive Trimethoprim-Sulfamet hoxazole SUSCEPTIBILITY (YAMILETH) <=10: Susceptible Methicillin resistant staphylococcus coagulase positive [...] - GENERAL ORDERABLES [facility] [address] [place] [address] documented in this encounter Visit Diagnoses Diagnosis [...] 5, STAT 2100 (Given - Provid er: [facility]) Hydrocodone w APAP 5-500 mg Tab??STARTER PACK (COMPLETED) 1 Package, oral, Once (Without Time Specified), 1 dose, Starting on 10/18/11 at 2032, Until 10/18/11 at 2100, STAT 2100 (Given - Provid er: [facility]) lorazepam (ATIVAN) tablet 1 mg (COMPLETED) 1 mg, sublingual, NOW X1, 1 dose, On 10/18/11 at 2015, STAT 2008 (Given - Provid er: [facility]) documented in this encounter Care Teams Piece Work Inspector Relationship Specialty Start Date End Date Yair Dow MD [address] [place] [address] PCP - General 06/03/11 03/08/12 documented as of this encounter
--- OUTSIDE RECORDS SUMMARY | 2024-06-14 02:10 | XMS_ITS | Encounter Summary ---
Author Organization [facility] Address [address] [place] [address] Care Team Providers Care Esl Instructional Assistant Name Role Phone Yair Dow MD Primary Care Provider Encounter Details Date Type Department Care Team (Latest Contact Info) Description 11/18/2011 9:39 EST - 11/18/2011 23:59 [facility] Hospital Encounter [address] [address] Unknown, Provider, Drew Grijalva MD [address] [place] [address] [place] [phone] Discharge Disposition: Auto Discharge Social History [...] [facility] Rheumatology & Immunology - [address] [address] Micaela Hoff MD 111 [facility], Level 5 [place] [phone] documented as of this encounter Visit Diagnoses Not on filedocumented in this encounter Additional Health Concerns Infection Onset Date Last Indicated Resolved Time 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 Care Teams Esl Instructional Assistant Relationship Specialty Start Date End Date Yair Dow MD [address] [place] [phone] PCP - General 06/03/11 03/08/12 documented as of this encounter
--- OUTSIDE RECORDS SUMMARY | 2024-06-14 02:10 | XMS_ITS | Encounter Summary ---
Author Organization [facility] Address [address] [place] [address] Care Team Providers Care Assembler Movement Name Role Phone Yair Dow MD Primary Care Provider [phone] Reason for Visit * Reason Onset Date Comments Medications Refill 10/02/2011 Encounter Details Date Type Department Care Team (Late st Contact Info) Description 10/02/2011 Refill [facility] Endocrinology - [address] [address] Izabel Crawford RN CDE Medications Refill Social [...] [facility] Rheumatology & Immunology - [address] [address] Micaela Hoff MD 111 [facility], Level 5 [place] [address] documented as of this encounter Visit Diagnoses Not on filedocumented in this encounter Discontinued Medications Medication Sig Discontinue Reason Start Date End Da te levothyroxine (SYNTHROID) 88 mcg tablet Take 1 Tab by mouth daily. Reorder 06/12/2011 10/02/2011 documented as of this encounter Care Teams Assembler Movement Relationship Specialty Start Date End Date Yair Dow MD [address] [place] [phone] PCP - General 06/03/11 03/08/12 documented as of this encounter
--- OUTSIDE RECORDS SUMMARY | 2024-06-14 02:10 | XMS_ITS | Encounter Summary ---
Author Organization [facility] Address [address] [place] [address] Care Team Providers Care Real Estate Financial Analyst Name Role Phone Yair Dow MD Primary Care Provider [phone] Encounter Details Date Type Department Care Team (Late st Contact Info) Description 12/03/2011 Results Only [facility] Family [address] [address] Kaylynn Rice MD [address] [address] Social History Tobacco Use Types [...] [facility] Rheumatology & Immunology - [facility] [address] [place] [address] Micaela Hoff MD 111 [facility], [facility] 5 [place] [address] documented as of this encounter [...] ? TERI CROWE ? Accession #: ? [id number] ? : ? 1980 (Age: 31) ??F [...] MD PATHOLOGY ORDERABLE S Performing Organization Address City/State/[facility] Co de Phone Number [facility] [address] [place] [address] documented in this encounter Visit Diagnoses Not on filedocumented in this encounter Additional Health Concerns Infection Onset Date Last Indicated Resolved Time 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 Care Teams Real Estate Financial Analyst Relationship Specialty Start Date End Date Yair Dow MD [address] [place] [address] PCP - General 06/03/11 03/08/12 documented as of this encounter
--- OUTSIDE RECORDS SUMMARY | 2024-06-14 02:10 | XMS_ITS | Encounter Summary ---
Author Organization [facility] Address [address] [place] [address] Care Team Providers Care Universal Banker Name Role Phone Ladonna Maurer Primary Care Provider [phone] Reason for Visit * Reason Onset Date Comments Other 05/22/2011 Encounter Details Date Type Department Care Team (Late st Contact Info) Description 05/22/2011 Telephone [facility] Family Medicine [address] [address] Ladonna Maurer PA [address] [place] [address] Other Social History Tobacco Use Types [...] 05/22/2011 1535 EDT Received pt's records from [facility] today Pt would like to transfer care here at [facility] Called left message on pt's home voicemail to call to schedule an appt documented in this encounter Plan of Treatment Upcoming Encounters Date Type Department Care Team (Late Contact Info) Description 12/29/2024 10:20 EST Office Visit [facility] Rheumatology & Immunology - [facility] [address] [place], [place] [address] Micaela Hoff MD 111 [facility], [address] [place] [phone] documented as of this encounter Visit Diagnoses Not on filedocumented in this encounter Care Teams Universal Banker Relationship Specialty Start Date End Date Ladonna Maurer PA [address] [place] [address] PCP - General 05/20/10 06/02/11 documented as of this encounter
--- OUTSIDE RECORDS SUMMARY | 2024-06-14 02:10 | XMS_ITS | Encounter Summary ---
Author Organization [facility] Address [address] [place] [address] Care Team Providers Care Casting Director Name Role Phone Yair Dow MD Primary Care Provider [phone] Encounter Details Date Type Department Care Team (Late st Contact Info) Description 09/15/2011 Phlebotomy Only [address] [address] Addresser, Outpatient Unspecified hypothyroidism; Abdominal pain; Peptic ulcer [...] [facility] Rheumatology & Immunology [address] [address] Micaela Hoff MD [address] [place] [address], [address] [place] [address] documented as of this encounter [...] BLOOD GA S ORDERABLES Performing Organization Address City/State/[facility] Co de Phone Number [facility] [address] [place] [address] * VITAMIN D (25,OH) (09/15/2011 13:56 EST) 25OH Vitamin D Tot 35.9 ng/ml [facility] Comment: Reference Range: <10 ng/ml: Deficient 10-30 ng/ml: Insufficient 30-100 ng/ml: Sufficient >100 ng/ml: Toxic Blood specimen (specimen) 09/15/2011 13:56 EST 09/15/2011 15:18 EST Yair Dow MD CHEMISTRY & BLOOD GA S ORDERABLES [facility] [address] [place] [address] * HEMAGRAM AND DIFFERENTIAL (09/15/2011 13:56 EST) [...] MD PACKAGES & DNA PROBE ORDERABLES [facility] [address] [place] [address] * TTG AB, IGA, S (09/15/2011 13:56 EST) tTG Ab, IgA, S <1.3 <4.0 U/mL [facility] Comment: (Note) <4 U/mL (Negative) Performed by: [facility], [address], [place] [address], Assistant Therapy Aide: Estephania Guallpa, Ph.D. Blood specimen (specimen) 09/15/2011 13:56 EST 09/15/2011 15:18 EST Yair Dow MD IMMUNOLOGY AND SEROL FLORY ORDERABLES Performing Organization Address [facility] Co de Phone Number [facility] [address] [place] [address] * T4 FREE (09/15/2011 13:55 EST) Free T4 1.5 0.8 - 1.8 ng/dL [facility] Blood specimen (specimen) 09/15/2011 13:55 EST 09/15/2011 15:18 EST Tawny Abrams MD CHEMISTRY & BLOOD GA S ORDERABLES Performing Organization Address [facility] Phone Number [facility] [address] [place] [address] * TSH (09/15/2011 13:55 EST) TSH 1.03 0.35 - 5.00 uIU/ml [facility] Blood specimen (specimen) 09/15/2011 13:55 EST 09/15/2011 15:18 EST Tawny Abrams MD CHEMISTRY & BLOOD GA S ORDERABLES Performing Organization Address [facility] Co de Phone Number [facility] [address] [place] [address] documented in this encounter Visit Diagnoses Diagnosis Unspecified hypothyroidism Abdominal pain Abdominal pain, unspecified site Peptic ulcer disease Peptic ulcer, unspecified site, unspecified as acute or chronic, without mention of hemorrhage, perforation, or obstruction Fatigue Other malaise and fatigue Vitamin D deficiency Unspecified vitamin D deficiency Hyperglycemia Other abnormal glucose documented in this encounter Care Teams Casting Director Relationship Specialty Start Date End Date Yair Dow MD [address] [place] [phone] PCP - General 06/03/11 03/08/12 documented as of this encounter
--- OUTSIDE RECORDS SUMMARY | 2024-06-14 02:10 | XMS_ITS | Encounter Summary ---
Author Organization [facility] Address [address] [place] [address] Care Team Providers Care Application Technician Name Role Phone aYir Dow MD Primary Care Provider [phone] Reason for Visit * Reason Comments Fatigue felling tired; diffi culty with daily functioning; weight loss; Abdominal Pain constipation; has be en dx with hiatal hernia Vaginitis seen in Dec now has sx again Encounter Details Date Type Department Care Team (Late st Contact Info) Description 01/12/2012 16:00 EDT Office Visit [address] [address] Kaylynn Rice MD [address] [phone] Fatigue (Primary Dx); Bacterial vaginosis Discharge Disposition: [...] similar to when she had thyroid issues. [place] like she was going to fall asleep driving. Abd pain, daily. Diagnosed with hiatal hernia, thinks CP may be related to that. + [place] thinks they're related to allergies. No SOB or cough. Hiatal hernia diagnosed in 2009, had EGD (while being worked up at bariatric center), diagnosed with ulcers and hernia. Taking omeprazole. No f/u recommended. Diet: [place] diet. String cheese, yogurt for breakfast. Protein bars, soup for lunch. Eats a lot of eggs. Smoker- 1 ppd. EtOH- 2-3 drinks/week. No drug use. Works in [employer] in [place]. Tried wellbutrin for smoking cessation. [place] very aggressive. I wanted to hurt someone, [place] anxiety and shaky. Only took for a [...] [facility] Rhe[facility]ology & Immunology - [address] [address] Micaela Hoff MD 111 [facility], Level 5 [place] [address] documented as of this encounter [...] LAB Calcium 9.6 8.5 - 10.5 mg/dl [facility] Calculated Calcium 9.7 8.5 - 10.5 mg/dl [facility] Glucose, Serum 83 70 - 100 mg/dl [facility] Fasting? Unknown [facility] Blood specimen (specimen) 01/12/2012 16:38 EDT 01/12/2012 18:55 EDT Kayylnn Rice MD CHEMISTRY & BLOOD G ORDERABLES [facility] [address] [place] [address] * HEMAGRAM AND DIFFERENTIAL (01/12/2012 16:38 EDT) WBC 7.69 4.0 - 12.4 K/cmm [facility] RBC 4.79 3.86 - 5.04 M/cmm [facility] Hemoglobin 14.6 11.6 - 15.2 gm/dl [facility] HCT 42.5 34.9 - 44.4 % [facility] MCV 89 81 - 98 fl [facility] MCH 30.5 26.7 - 33.3 pg [facility] MCHC 34.4 32.1 - 35.9 gm/dl [facility] PLT 255 141 - 320 [...] PROB E ORDERABLES [facility] [address] [place] [address] documented in this encounter Visit Diagnoses Diagnosis Fatigue- Primary Other malaise and fatigue Bacterial vaginosis Vaginitis and vulvovaginitis, unspecified documented in this encounter Additional Health Concerns Infection Onset Date Last Indicated Resolved Time 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 Care Teams Application Technician Relationship Specialty Start Date End Date Yair Dow MD [address] [place] [phone] PCP - General 06/03/11 03/08/12 documented as of this encounter
--- OUTSIDE RECORDS SUMMARY | 2024-06-14 02:10 | XMS_ITS | Encounter Summary ---
Author Organization [facility] Address [address] [place] [address] Care Team Providers Care Specialty Plant Supervisor Name Role Phone Yair Dow MD Primary Care Provider [phone] Reason for Visit * Reason Comments Fatigue Diagnosed a year ago with Hosimoto's. Over last couple weeks has increase fatigue, near syncopal, missing work. Various aches and pains. GERD acting up. Skin pink and dry. NAD. Encounter Details Date Type Department Care Team (Late st Contact Info) Description 01/14/2012 10:47 EDT - 01/14/2012 14:51 EDT Emergency [facility] Emergency Department - Main [place] [address] [place], [place] [phone] Carol Spencer PA [address] [place] [address] Emergency, MD Fede Fatigue Discharge [...] documented in this encounter Procedure Notes * SEAFOOD PROCESSOR, ISELA 2 - 02/04/2012 0744 EDTAssociated Order(s): [...] encounter Miscellaneous Notes * Scanned Note-Null - SEAFOOD PROCESSOR, SCAN 2 - 01/15/2012 2324 EDT documented in this encounter Plan of Treatment Upcoming Encounters Date Type Department Care Team (Late st Contact Info) Description 12/29/2024 10:20 EST Office Visit [facility] Rheumatology & Immunology - [address] [address] Micaela Hoff MD [address] [place] [address], [address] 5 [place] [address] Pending Results Name Type Priority [...] 7:44 EDT) 02/04/2012 7:44 EDT Narrative Transcriptions SEAFOOD PROCESSOR, SCAN 2 - 02/04/2012 7:44 EDT Scan 2 Stake Setter PROCEDURE/MINOR GERI GICAL ORDERABLES * POCT URINE TEST (01/14/2012 13:24 EDT) Test, Urine, POC Negative Reference Range, Negative POINT OF CARE Control Line Present Yes POINT OF CARE Background Clear? Yes POINT OF CARE Urine specimen (specimen) 01/14/2012 13:24 EDT Carol AVILA POINT OF CARE TEST O RDERABLES Performing Organization Address City/[facility]/ZIP Co de Phone Number POINT OF CARE * TSH (01/14/2012 13:13 EDT) TSH 0.46 0.35 - 5.00 uIU/ml [facility] Blood specimen (specimen) 01/14/2012 13:13 EDT 01/14/2012 13:25 EDT Carol AVILA CHEMISTRY & BLOOD GA S ORDERABLES Performing Organization Address [facility] de Phone Number [facility] [address] [place] [address] * (ABNORMAL) POCT URINE DIPSTICK (01/14/2012 13:05 EDT) Color YELLOW [facility] Clarity, UA Clear [facility] Glucose Neg Neg [facility] Bilirubin Neg Neg [facility] Ketones Trace(A) Neg [facility] Specific [place] 1.020 1.001 - 1.035 [facility] Blood Trace(A) Neg [facility] pH 6.5 4.6 - 8.0 [facility] Protein Neg Neg [facility] Urobilinogen 0.2 0.2 - 1.0 E.U./dl [facility] Nitrite Neg Neg [facility] Leuk Esterase 1+(A) Neg [facility]OL[facility] drug safety data management specialist ID [id number] [facility] Comment:Test Performed by [facility] Urine specimen (specimen) 01/14/2012 13:05 EDT 01/14/2012 13:19 EDT Carol AVILA POINT OF CARE TEST O RDERABLES Performing Organization Address [facility] Co de Phone Number [facility] [address] [place] [address] * (ABNORMAL) GLUCOSE, GLUCOMETER (01/14/2012 11:55 EDT) Glucose, Fingerstick 120(H) 70 - 100 mg/dl [facility] Nautical Instrument Mechanic [place] [id number] [facility] Comment:Test Performed by [facility] 01/14/2012 11:5 5 EDT 01/14/2012 11:57 EDT Provider Unknown CHEMISTRY & BLOOD GA S ORDERABLES [facility] [address] [place] [address] documented in this encounter Visit Diagnoses Diagnosis [...] documented as of this encounter Care Teams Specialty Plant Supervisor Relationship Specialty Start Date End Date Yair Dow MD [address] [place] [address] PCP - General 06/03/11 03/08/12 documented as of this encounter
--- OUTSIDE RECORDS SUMMARY | 2024-06-14 02:10 | XMS_ITS | Encounter Summary ---
Author Organization [facility] Address [address] [place] [address] Care Team Providers Care Precision Structural Metal Fitter Name Role Phone Yair Dow MD Primary Care Provider [phone] Reason for Visit * Reason Onset Date Comments Results 09/30/2011 Encounter Details Date Type Department Care Team (Late st Contact Info) Description 09/30/2011 Telephone [facility] Endocrinology - [address] [phone] Tawny Abrams MD [address] [place] [phone] Results Social History Tobacco Use Types Packs/Day [...] labs look ok but that since dr barams has left the practice we need to [...] 12/29/2024 10:20 EST Office Visit [facility] Rheumatology & Immunology - [facility] [address] [place], [place] [address] Micaela Hoff MD 111 [facility], Level [address] [place] [address] documented as of this encounter Visit Diagnoses Not on filedocumented in this encounter Care Teams Precision Structural Metal Fitter Relationship Specialty Start Date End Date Yair Dow MD [address] [place] [address] PCP - General 06/03/11 03/08/12 documented as of this encounter
--- OUTSIDE RECORDS SUMMARY | 2024-06-14 02:10 | XMS_ITS | Encounter Summary ---
Author Organization [facility] Address [address] [place] [address] Care Team Providers Care Airplane Engineer Name Role Phone Yair Dow MD Primary Care Provider [phone] Encounter Details Date Type Department Care Team (Late st Contact Info) Description 09/15/2011 13:48 EST - 09/15/2011 23:59 [facility] [address] [address] Unknown, Provider, Yair Dow MD [address] [place] [address] DR [facility] [address] [place] [phone] Discharge Disposition: Auto Discharge Social History Tobacco [...] buPROPion (WELLBUTRIN SR) 150 mg SR tabletIndications:Toba choir accompanist dependence Take 1 Tab by mouth 2 [...] 10:20 EST Office Visit [facility] Rheumatology & Immunology - [address] [address] Micaela Hoff MD 111 [facility], [address] [place] [phone] documented as of this encounter Visit Diagnoses Not on filedocumented in this encounter Care Teams Airplane Engineer Relationship Specialty Start Date End Date Yair Dow MD [address] [place] [phone] PCP - General 06/03/11 03/08/12 documented as of this encounter
--- OUTSIDE RECORDS SUMMARY | 2024-06-14 02:10 | XMS_ITS | Encounter Summary ---
Author Organization [facility] Address [address] [place] [address] Care Team Providers Care Aquatic Facility Manager Name Role Phone Yair Dow MD Primary Care Provider [phone] Reason for Visit * Reason Onset Date Comments Contraception 07/31/2011 Wants removed Encounter Details Date Type Department Care Team (Late st Contact Info) Description 07/31/[address] [address] Yair Dow MD [address] [place] [address] [address] Contraception (Wants removed) Social History [...] 10:20 EST Office Visit [facility] Rheumatology & Immunology - [address] [address] Micaela Hoff MD 111 [facility], [address] [place] [address] documented as of this encounter Visit Diagnoses Not on filedocumented in this encounter Care Teams Aquatic Facility Manager Relationship Specialty Start Date End Date Yair Dow MD [address] [place] [phone] PCP - General 06/03/11 03/08/12 documented as of this encounter
--- OUTSIDE RECORDS SUMMARY | 2024-06-14 02:11 | XMS_ITS | Encounter Summary ---
Author Organization [facility] Address [address] [place] [address] Care Team Providers Care Enrichment Director Name Role Phone Unavailable Primary Care Provider Unavailabl e Encounter Details Date Type Department Care Team (Late st Contact Info) Description 01/11/2008 13:52 EDT Hospital Encounter [address] [address] Makeda Lucas MD [address] [place] [address] 4 [place] [phone] Discharge Disposition: Auto Discharge Social History Tobacco [...] Visit [facility] Rheumatology & Immunology [address] [address] Micaela Hoff MD [address] [place] [address] 5 [place] [phone] documented as of this encounter Visit Diagnoses Not on filedocumented in this encounter
--- OUTSIDE RECORDS SUMMARY | 2024-06-14 02:11 | XMS_ITS | Encounter Summary ---
Author Organization Health system Address [address] [place] [address] Care Team Providers Care Shipping Associate Name Role Phone Ladonna Maurer Primary Care Provider [phone] Encounter Details Date Type Department Care Team (Late st Contact Info) Description 03/28/2008 Results Only [facility] Obstetrics & Midwifery - [address] [phone] Makeda Lucas MD [address] [place] [address] 4 [place] [address] Social History Tobacco Use Types [...] [facility] Immun[facility] - [address] [phone] Micaela Hoff MD [address] [place] [address] documented as of this encounter Procedures Procedure Name Priority Date/Time Associated Diagnosis Comments GROUP B STREP PCR Routine 03/28/2008 15: 56 EDT documented in this encounter Results * GROUP B STREPTOCOCCUS MOLECULAR DETECTION (03/28/2008 15:56 EDT) Specimen Description Vaginal and Rectal [facility] Result No Group B beta streptococcal DNA detected by PCR. [facility] Report Status Final [id number] [facility] 03/28/2008 15:5 6 EDT 03/28/2008 19:31 EDT Makeda Lucas MD MICROBIOLOGY - GENER AL ORDERABLES [facility] [address] [place] [address] documented in this encounter Visit Diagnoses Not on filedocumented in this encounter Care Teams Shipping Associate Relationship Specialty Start Date End Date Ladonna Maurer PA [address] [place] [address] PCP - General 05/20/10 06/02/11 documented as of this encounter
--- OUTSIDE RECORDS SUMMARY | 2024-06-14 02:11 | XMS_ITS | Encounter Summary ---
Author Organization [facility] Address [address] [place] [address] Care Team Providers Care Php Website Developer Name Role Phone Unavailable Primary Care Provider Unavailabl e Encounter Details Date Type Department Care Team (Latest Contact Info) Description 04/17/2008 15:44 EDT Hospital Encounter [facility] [address] [place] [address] Linda Bustillos MD Discharge Disposition: Auto Discharge [...] [facility] Rheumatology & Immunology - [facility] [address], [place] [address] Micaela Hoff MD [address] [facility], Level 5 [place] [address] documented as of this encounter Visit Diagnoses Not on filedocumented in this encounter
--- OUTSIDE RECORDS SUMMARY | 2024-06-14 02:11 | XMS_ITS | Encounter Summary ---
Author Organization [facility] Address [address] [place] [address] Care Team Providers Care Fleet Coordinator Name Role Phone Unavailable Primary Care Provider Unavailabl e Encounter Details Date Type Department Care Team (Latest Contact Info) Description 04/09/2008 6:52 EDT - 04/09/2008 11:59 EDT Hospital Encounter [facility] Birthing Center Unit [address] [place] [address] Linda Bustillos MD Discharge Disposition: Home or [...] 12/29/2024 10:20 EST Office Visit [facility] Rheumatology & Immunology - [facility] [address], [place] [address] Micaela Hoff MD 111 [facility], Level [address] [place] [address] documented as of this encounter [...] MD URINALYSIS ORDERABLE S Performing Organization Address [facility] Co de Phone Number [facility] [address] [place] [address] * (ABNORMAL) URINALYSIS (04/09/2008 7:55 EDT) Color, UA Yellow [facility] Clarity, UA Clear [facility] Glucose, UA Norm NORM [facility] Bilirubin, UA Neg NEG [facility] Ketones, UA Neg NEG [facility] Specific [place], Urine 1.015 1.005 - 1.02 [facility] [...] URINALYSIS ORDERABLE S [facility] [address] [place] [address] documented in this encounter Visit Diagnoses Not on filedocumented in this encounter
--- OUTSIDE RECORDS SUMMARY | 2024-06-14 02:11 | XMS_ITS | Encounter Summary ---
Author Organization [facility] Address [address] [place] [address] Care Team Providers Care Project Development Engineer Name Role Phone Unavailable Primary Care Provider Unavailabl e Encounter Details Date Type Department Care Team (Late st Contact Info) Description 01/25/2008 15:28 EDT Hospital Encounter [address] 701[address] Makeda Lucas MD [address] [place] [address], [facility] 4 [place] [phone] Social History Tobacco Use Types Packs/Day Years [...] [facility] Rheumatology & Immunology [address] [phone] Micaela Hoff MD [address] [place] [address], [facility] [address] [place] [address] documented as of this encounter Visit Diagnoses Not on filedocumented in this encounter Additional Health Concerns Infection Onset Date Last Indicated Resolved Time 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
--- OUTSIDE RECORDS SUMMARY | 2024-06-14 02:11 | XMS_ITS | Encounter Summary ---
Author Organization [facility] Address [address] [place] [address] Care Team Providers Care Hobbing Press Operator Name Role Phone Unavailable Primary Care Provider Unavailabl e Encounter Details Date Type Department Care Team (Late st Contact Info) Description 12/21/2007 14:27 EST Hospital Encounter [address] [address] Makeda Lucas MD [address] [place] [address] 4 [place] [phone] Discharge Disposition: Auto Discharge Social History Tobacco [...] Visit [facility] Rheumatology & Immunology [address] [address] Micaela Hoff MD [address] [place] [address] 5 [place] [phone] documented as of this encounter Procedures Procedure Name Priority Date/Time Associated Diagnosis Comments PRISON CERVICAL LENGTH 12/21/2007 1 6:15 EST documented in this encounter Results * PRISON CERVICAL LENGTH (12/21/2007 16:15 EST) Anatomical Region Laterality Modality Other 12/21/2007 16:1 5 EST Narrative 04/23/2009 4:28 EDT TRANSVAGINAL SCAN/CERVICAL LENGTH Please refer to the separate [facility] report. ??Contact Maternal Medicine. Procedure Note Shanique Eagle MD - 04/23/2009 TRANSVAGINAL SCAN/CERVICAL LENGTH Please refer to the separate [facility] report. Contact Maternal Medicine. Makeda Lucas MD IMG [facility] ORDERABLE S documented in this encounter Visit Diagnoses Not on filedocumented in this encounter
--- OUTSIDE RECORDS SUMMARY | 2024-06-14 02:11 | XMS_ITS | Encounter Summary ---
Author Organization [facility] Address [address] [place] [address] Care Team Providers Care Outreach Clinician Name Role Phone Ladonna Maurer Primary Care Provider Reason for Visit * Reason Onset Date Comments Prior Auth, Other (i.e. radiology, etc.) 010 Encounter Details Date Type Department Care Team (Late st Contact Info) Description 08/29/2010 Telephone [facility] GENERAL SURGERY [address] [place] [address] Skyler Blanco MD [address] [place] [phone] Prior Auth, Other (i.e. radiology, etc.) [...] 1514 EDT DOS - 09/03/2010 - CPT 40751 - Gerd Morbid Obesity Pre-op - [employer] - Elizabeth PA documented in this encounter Plan of Treatment Upcoming Encounters Date Type Department Care Team (Late st Contact Info) Description 12/29/2024 10:20 EST Office Visit [facility] Rheumatology & Immunology - [address] [address] Micaela Hoff MD [address] [place] [address], Level [address] [place] [phone] documented as of this encounter Visit Diagnoses Not on filedocumented in this encounter Care Teams Outreach Clinician Relationship Specialty Start Date End Date Ladonna Maurer PA [address] [place] [address] PCP - General 05/20/10 06/02/11 documented as of this encounter
--- OUTSIDE RECORDS SUMMARY | 2024-06-14 02:11 | XMS_ITS | Encounter Summary ---
Author Organization [facility] Address [address] [place] [address] Care Team Providers Care Procurement Agent Name Role Phone Unavailable Primary Care Provider Unavailabl e Encounter Details Date Type Department Care Team (Late st Contact Info) Description 11/16/2007 12:59 EST Hospital Encounter [address] [address] Magda Tejada MD [address] [place] [phone] Makeda Lucas MD [address] [place] [address], [facility] 4 [place] [phone] Discharge Disposition: Auto Discharge Social History Tobacco [...] Info) Description 12/29/2024 10:20 EST Office Visit [facility] Rheumatology & Immunology [address] [address] Micaela Hoff MD [address] [place] [address] 5 [place] [phone] documented as of this encounter Procedures Procedure Name Priority Date/Time Associated Diagnosis Comments [facility] LIMITED EXAM 11/16/2007 14:0 1 EST documented in this encounter Results * [facility] LIMITED EXAM (11/16/2007 14:01 EST) Anatomical Region Laterality Modality Other 11/16/2007 14:0 1 EST Narrative 04/23/2009 3:47 EDT LIMITED,[id number] AND CERVICAL LENGTH/EVAL FOR 1ST AND 2ND TRIMESTER VB Please refer to the separate [facility] report. ??Contact Maternal Medicine. Procedure Note Robb Nam MD - 04/23/2009 LIMITED,[id number] AND CERVICAL LENGTH/EVAL FOR 1ST AND 2ND TRIMESTER VB Please refer to the separate [facility] report. Contact Maternal Medicine. Magda Tejada MD IMG [facility] ORDERABLE S documented in this encounter Visit Diagnoses Not on filedocumented in this encounter
--- OUTSIDE RECORDS SUMMARY | 2024-06-14 02:11 | XMS_ITS | Encounter Summary ---
Author Organization [facility] Address [address] [place] [address] Care Team Providers Care Upholstery Technician Name Role Phone Ladonna Maurer Primary Care Provider Reason for Visit * Reason Onset Date Comments Other 01/17/2011 Encounter Details Date Type Department Care Team (Late st Contact Info) Description 01/17/2011 Telephone [facility] Bariatric Surgery - [place] [address] [place] [address] Kristine Escamilla S, SUPERVISOR MULTIFOCAL LENS 61 [facility] [address] [phone] Other Social History Tobacco Use Types Packs/Day [...] Visit [facility] Rheumatology & Immunology - [address] [phone] Micaela Hoff MD 111 [facility], Level [address] [place] [phone] documented as of this encounter Visit Diagnoses Not on filedocumented in this encounter Care Teams Upholstery Technician Relationship Specialty Start Date End Date Ladonna Maurer PA [address] [place] [phone] PCP - General 05/20/10 06/02/11 documented as of this encounter
--- OUTSIDE RECORDS SUMMARY | 2024-06-14 02:11 | XMS_ITS | Encounter Summary ---
Author Organization [facility] Address [address] [place] [address] Care Team Providers Care Brass Reclaimer Name Role Phone Ladonna Maurer Primary Care Provider Reason for Referral * (Routine) - Closed Specialty Diagnoses / Procedures Referred By Contac t Referred To Contact Diagnoses Hypothyroid Morbid obesity (HCC-CMS) TAMMY (obstructive sleep apnea) Procedures HEMOGLOBIN A1C Kristine Escamilla, HUANG [address] [place] [address] Referral ID Status Reason Start Date Expiration Date Visits Re quested Visits Authorized [id number] Closed 11/27/2010 1 1 * (Routine) - Closed Specialty Diagnoses / Procedures Referred By Contac t Referred To Contact Diagnoses Hypothyroid Morbid obesity (HCC-CMS) TAMMY (obstructive sleep apnea) Procedures VITAMIN D (25,OH) Kristine Escamilla, HUANG [address] [place] [phone] Referral ID Status Reason Start Date Expiration Date Visits Re quested Visits Authorized [id number] Closed 11/27/2010 1 1 * (Routine) - Closed Specialty Diagnoses / Procedures Referred By Contac t Referred To Contact Diagnoses Hypothyroid Morbid obesity (HCC-CMS) TAMMY (obstructive sleep apnea) Procedures LIVER FUNCTION TESTS Kristine Escamilla APRN [address] [place] [address] Referral ID Status Reason Start Date Expiration Date Visits Re quested Visits Authorized [id number] Closed 11/27/2010 1 1 * (Routine) - Closed Specialty Diagnoses / Procedures Referred By Contac t Referred To Contact Diagnoses Hypothyroid Morbid obesity (HCC-CMS) TAMMY (obstructive sleep apnea) Procedures HEMAGRAM Kristine Escamilla JUNIOR ACCOUNT MANAGER [address] [place] [phone] Referral ID Status Reason Start Date Expiration Date Visits Re quested Visits Authorized [id number] Closed 11/27/2010 1 1 * (Routine) - Closed Specialty Diagnoses / Procedures Referred By Contac t Referred To Contact Diagnoses Hypothyroid Morbid obesity (HCC-CMS) TAMMY (obstructive sleep apnea) Procedures [facility] Krsitine Escamilla, JUNIOR ACCOUNT MANAGER [address] [place] [address] Referral ID Status Reason Start Date Expiration Date Visits Re quested Visits Authorized [id number] Closed 11/27/2010 1 1 Encounter Details Date Type Department Care Team (Latest Contact Info) Description 11/27/2010 11:51 EST - 11/27/2010 23:59 EST Hospital Encounter [address] [address] Kristine Escamilla, JUNIOR ACCOUNT MANAGER [address] [place] [phone] Hypothyroid; Morbid obesity (HCC-CMS); TAMMY (obstructive [...] Code Departure Means Destination Home or Self Half-Way documented in this encounter Miscellaneous Notes * Scanned Note-Null - Support Assistant, Scan - 10/15/2011 0903 EST documented in this encounter Plan of Treatment Upcoming Encounters Date Type Department Care Team (Late st Contact Info) Description 12/29/2024 10:20 EST Office Visit [facility] Rheumatology & Immunology - [address] [address] Micaela Hoff MD [address] [place] [address], Level [address] [place] [phone] documented as of this encounter Procedures Procedure [...] GAS ORDERABLES Performing Organization Address [facility] de Phone Number [facility] [address] [place] [address] * VITAMIN D (25,OH) (11/27/2010 12:14 EST) Pathologist [facility] 25OH Vitamin D Tot 14.8 ng/ml [facility] Comment: Reference Range: <10 ng/ml: Deficient 10-30 ng/ml: Insufficient 30-100 ng/ml: Sufficient >100 ng/ml: Toxic Blood specimen (specimen) 11/27/2010 12:14 EST 11/27/2010 12:16 EST Kristine Escamilla APRN CHEMISTRY & BLOOD GAS ORDERABLES Performing Organization Address [facility] Co de Phone Number [facility] [address] [place] [address] * LIVER FUNCTION TESTS (11/27/2010 12:14 EST) [...] de Phone Number [facility] [address] [place] [address] * HEMAGRAM (11/27/2010 12:14 EST) WBC 8.48 [...] EST 11/27/2010 12:16 EST Kristine S Andi JUNIOR ACCOUNT MANAGER HEMATOLOGY & PF4 ORDERABLES Performing Organization Address City/[facility]/ZIP Co de Phone Number [facility] [address] [place] [address] * CREATININE (11/27/2010 12:14 EST) Creatinine 0.86 0.7 - 1.5 mg/dl [facility] GFR, Calculated >60 ml/min/1.7 3m2 [facility] Blood specimen (specimen) 11/27/2010 12:14 EST 11/27/2010 12:16 EST Kristine Bismark Andi JUNIOR ACCOUNT MANAGER CHEMISTRY & BLOOD GAS ORDERABLES Performing Organization Address [facility] Co de Phone Number [facility] [address] [place] [address] documented in this encounter Visit Diagnoses Diagnosis Hypothyroid Unspecified hypothyroidism Morbid obesity ([facility]) Morbid obesity TAMMY (obstructive sleep apnea) Obstructive sleep apnea (adult) (pediatric) documented in this encounter Care Teams Brass Reclaimer Relationship Specialty Start Date End Date Ladnona Maurer PA [address] [place] [address] PCP - General 05/20/10 06/02/11 documented as of this encounter
--- OUTSIDE RECORDS SUMMARY | 2024-06-14 02:11 | XMS_ITS | Encounter Summary ---
Author Organization [facility] Address [address] [place] [address] Care Team Providers Care Casting Associate Name Role Phone Ladonna Maurer Primary Care Provider [phone] Reason for Visit * Reason Comments Obesity Encounter Details Date Type Department Care Team (Late st Contact Info) Description 12/25/2010 8:30 EST Nutrition [facility] Bariatric Surgery - [place] [address] [place] [address] Hypothyroid; Morbid obesity ([facility]); TAMMY (obstructive sleep apnea) Social History Tobacco [...] encounter Miscellaneous Notes * Scanned Note-Null - Buffing Wheel Raker, Scan - 10/03/2011 1046 EST documented in this encounter Plan of Treatment Upcoming Encounters Date Type Department Care Team (Late st Contact Info) Description 12/29/2024 10:20 EST Office Visit [facility] Rheumatology & Immunology - [address] [phone] Micaela Hoff MD 111 [facility], Level [address] [place] [address] documented as of this encounter Visit Diagnoses Diagnosis Hypothyroid Unspecified hypothyroidism Morbid obesity ([facility]) Morbid obesity TAMMY (obstructive sleep apnea) Obstructive sleep apnea (adult) (pediatric) documented in this encounter Care Teams Casting Associate Relationship Specialty Start Date End Date Ladonna Maurer PA [address] [place] [phone] PCP - General 05/20/10 06/02/11 documented as of this encounter
--- OUTSIDE RECORDS SUMMARY | 2024-06-14 02:11 | XMS_ITS | Encounter Summary ---
Author Organization [facility] Address [address] [place] [address] Care Team Providers Care Dogman/Woman Name Role Phone Unavailable Primary Care Provider Unavailabl e Encounter Details Date Type Department Care Team (Late st Contact Info) Description 04/10/2008 14:01 EDT Hospital Encounter [address] [address] Linda Bustillos MD Social History Tobacco Use [...] Visit [facility] Rheumatology & Immunology - [address] 1239[address] Micaela Hoff MD [address] [place] [address], Level [address] [place] [phone] documented as of this encounter Visit Diagnoses Not on filedocumented in this encounter Additional Health Concerns Infection Onset Date Last Indicated Resolved Time 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
--- OUTSIDE RECORDS SUMMARY | 2024-06-14 02:11 | XMS_ITS | Encounter Summary ---
Author Organization [facility] Address [address] [place] [address] Care Team Providers Care Process Camera Operator Name Role Phone Unavailable Primary Care Provider Unavailabl e Encounter Details Date Type Department Care Team (Latest Contact Info) Description 11/29/2007 15:47 EST Hospital Encounter [address] [address] Linda Bustillos MD Discharge Disposition: Auto Discharge [...] [facility] Immunology - [address] [address] Micaela Hoff MD [address] [place] [address], Level [address] [place] [phone] documented as of this encounter Procedures Procedure Name Priority Date/Time Associated Diagnosis Comments PRISON CERVICAL LENGTH 11/29/2007 1 7:46 EST documented in this encounter Results * PRISON CERVICAL LENGTH (11/29/2007 17:46 EST) Anatomical Region Laterality Modality Other 11/29/2007 17:4 6 EST Narrative 04/23/2009 3:50 EDT CERVICAL LENGTH 387[address], H/O SEPTUM W/REPAIR, H/O 20 WK LOSS Please refer to the separate [facility] report. ??Contact Maternal Medicine. Procedure Note Makeda Lucas MD - 04/23/2009 CERVICAL LENGTH [address], H/O SEPTUM W/REPAIR, H/O 20 WK LOSS Please refer to the separate [facility] report. Contact Maternal Medicine. Magda Tejada MD IMG [facility] ORDERABLE S documented in this encounter Visit Diagnoses Not on filedocumented in this encounter
--- OUTSIDE RECORDS SUMMARY | 2024-06-14 02:11 | XMS_ITS | Encounter Summary ---
Author Organization [facility] Address [address] [place] [address] Care Team Providers Care Bullet Maker Name Role Phone Ladonna Maurer Primary Care Provider [phone] Reason for Visit * Reason Comments Obesity #1 Encounter Details Date Type Department Care Team (Late st Contact Info) Description 08/01/2010 10:30 EDT Office Visit [facility] Bariatric Surgery - [address] [phone] Skyler Blanco MD [address] [place] [address] GERD (gastroesophageal reflux disease) (Primary [...] to Shedule a follow-up appt with our video intern and our nurse practitioner, Monique. We will obtain the results of the following: UGI. Teri Haro is an appropriate candidate for LapBand surgery pending test results.. For the next visit she was advised to come with her family. Skyler Blanco MD documented in this encounter Miscellaneous Notes * Scanned Note-Null - German, Power Shovel Operator - 08/07/2011 1402 EDT documented in this encounter Plan of Treatment Upcoming Encounters Date Type Department Care Team (Late st Contact Info) Description 12/29/2024 10:20 EST Office Visit [facility] Rheumatology & Immunology - [address] [phone] Micaela Hoff MD 111 [facility], Level [address] [place] [address] documented as of this encounter [...] duodenal bulb and sweep were obtained. Findings: Table Machine Operator KUB normal bowel gas pattern. An IUD [...] duodenal bulb and sweep were obtained. Findings: Table Machine Operator KUB normal bowel gas pattern. An IUD [...] 11/27/2010 added in this encounter Care Teams Bullet Maker Relationship Specialty Start Date End Date Ladonna Maurer PA [address] [place] [address] PCP - General 05/20/10 06/02/11 documented as of this encounter
--- OUTSIDE RECORDS SUMMARY | 2024-06-14 02:11 | XMS_ITS | Encounter Summary ---
Author Organization [facility] Address [address] [place] [address] Care Team Providers Care Hairmasters Manager Name Role Phone Unavailable Primary Care Provider Unavailabl e Encounter Details Date Type Department Care Team (Late st Contact Info) Description 09/10/2007 14:50 EST Hospital Encounter [address] [address] Magda Tejada MD [address] [place] [phone] Social History Tobacco Use Types Packs/Day Years [...] [facility] Rheumatology [facility] Immunology - [address] [address] Micaela Hoff MD 111 [facility], Level [address] [place] [phone] documented as of this encounter Procedures Procedure Name Priority Date/Time Associated Diagnosis Comments LONG-TERM VIABILITY 09/27/2007 13:44 EST documented in this encounter Results * LONG-TERM VIABILITY (09/27/2007 13:44 EST) Anatomical Region Laterality Modality Other 09/27/2007 13:4 4 EST Narrative 04/23/2009 2:43 EDT bleeding first trimester inc cervix Please refer to the separate [facility] report. ??Contact Maternal Medicine. Procedure Note Robb Nam MD - 04/23/2009 bleeding first trimester inc cervix Please refer to the separate [facility] report. Contact Maternal Medicine. Robb Nam MD IMG LONG-TERM ORDER HEATH documented in this encounter Visit Diagnoses Not on filedocumented in this encounter Additional Health Concerns Infection Onset Date Last Indicated Resolved Time 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
--- OUTSIDE RECORDS SUMMARY | 2024-06-14 02:11 | XMS_ITS | Encounter Summary ---
Author Organization [facility] Address [address] [place] [address] Care Team Providers Care Money Laundering Investigator Name Role Phone Ladonna Maurer Primary Care Provider [phone] Encounter Details Date Type Department Care Team (Late st Contact Info) Description 09/03/2010 Results Only [facility] Bariatric Surgery - [place] [address] [place], [place] [address] Rosita Blanco MD [address] [place] [phone] Social History Tobacco Use Types Packs/Day Years [...] [facility] Rheumatology & Immunology - [facility] [address] [place], [place] [address] Micaela Hoff MD [address] [facility], Level [address] [place] [address] documented as of this encounter [...] HARO, TERI R ? Accession #: ? [id number] ? : ? 1980 (Age: 30) ??F [...] ??performance ? characteristics have been determined by [facility]. ??This ? laboratory is certified under [...] in toto as (A). ? Received in Lua's solution labelled Haro, Teri and stomach are two ? pink- irregular soft tissues, 0.1 x 0.1 x 0.1 cm and 0.3 x 0.3 x 0.2 cm. ? Submitted in toto as (B). ? Received in Lua's solution labelled Haro, Teri and GE junction is a ?? single 0.2 x 0.2 x 0.2 cm pink- irregular soft tissue. ??Submitted in toto as (C). ??(Yvonne Mcdaniel)/natan ? End of Report ? [facility] 09/03/2010 09/03/2010 14: 00 EDT Rosita Blanco MD PATHOLOGY OR DERABLES [facility] [address] [place] [address] documented in this encounter Visit Diagnoses Not on filedocumented in this encounter Care Teams Money Laundering Investigator Relationship Specialty Start Date End Date Ladonna Maurer PA [address] [place] [address] PCP - General 05/20/10 06/02/11 documented as of this encounter
--- OUTSIDE RECORDS SUMMARY | 2024-06-14 02:11 | XMS_ITS | Encounter Summary ---
Author Organization [facility] Address [address] [place] [address] Care Team Providers Care Chainer Name Role Phone Unavailable Primary Care Provider Unavailabl e Encounter Details Date Type Department Care Team (Latest Contact Info) Description 10/31/2007 10:15 EST - 10/31/2007 11:59 EST Hospital Encounter [facility] Emergency Department - [address] [address] Emergency, MD Fede Discharge Disposition: Home or [...] Description 12/29/2024 10:20 EST Office Visit [facility] Rheumatology & Immunology - [address] [phone] Micaela Hoff MD [address] [place] [address], [address] [place] [phone] documented as of this encounter Visit Diagnoses Not on filedocumented in this encounter
--- OUTSIDE RECORDS SUMMARY | 2024-06-14 02:11 | XMS_ITS | Encounter Summary ---
Author Organization [facility] Address [address] [place] [address] Care Team Providers Care Personal Care Attendant Name Role Phone Unavailable Primary Care Provider Unavailabl e Encounter Details Date Type Department Care Team (Latest Contact Info) Description 03/13/2008 15:17 EDT Hospital Encounter [address] [address] Linda Bustillos MD Discharge Disposition: Auto Discharge [...] [facility] Rheumatology & Immunology - [facility] [address] [place], [place] [address] Micaela Hoff MD 111 [facility], [address] [place] [address] documented as of this encounter Visit Diagnoses Not on filedocumented in this encounter
--- OUTSIDE RECORDS SUMMARY | 2024-06-14 02:11 | XMS_ITS | Encounter Summary ---
Author Organization [facility] Address [address] [place] [address] Care Team Providers Care Instructional Services Librarian Name Role Phone Ladonna Maurer Primary Care Provider [phone] Reason for Visit * Reason Comments Goiter new patient Hypothyroidism Encounter Details Date Type Department Care Team (Latest Contact Info) Description 01/23/2011 14:40 EDT Office Visit [facility] Endocrinology - [address] [phone] Tawny Abrmas MD [address] [place] [address] Hypothyroid; Mena's thyroiditis Social History Tobacco [...] OF ENDOCRINOLOGY CONSULTATION - 01/23/2011 Ladonna Maurer [address] [address] Dear Ms Maurer: I had the pleasure of seeing your patient, Teri Haro, in consultation in the endocrine clinic today, , for goiter and hypothyroidism. 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 She admits that she has been eating [...] - Tawny Abrams MD - [facility] Job ID: SM Doc ID: [id number] Ext Doc ID: [id number] cc: AUSTIN Silva documented in this encounter Miscellaneous Notes * Scanned Note-Null - Inpatient, Physician - 01/30/2011 1145 EDTAssociated Order(s): RADIOLOGY - SCANNED documented in this encounter Plan of Treatment Upcoming Encounters Date Type Department Care Team (Late st Contact Info) Description 12/29/2024 10:20 EST Office Visit [facility] Rheumatology & Immunology - [address] [address] Micaela Hoff MD [address] [place] [address], [address] [place] [address] Scheduled Orders Name Type Priority [...] 06/12/2011 added in this encounter Care Teams Instructional Services Librarian Relationship Specialty Start Date End Date Ladonna Maurer PA [address] [place] [address] PCP - General 05/20/10 06/02/11 documented as of this encounter
--- OUTSIDE RECORDS SUMMARY | 2024-06-14 02:11 | XMS_ITS | Encounter Summary ---
Author Organization [facility] Address [address] [place] [address] Care Team Providers Care Recruiting Coordinator Name Role Phone Ladonna Maurer Primary Care Provider [phone] Encounter Details Date Type Department Care Team (Latest Contact Info) Description 08/07/2010 10:00 EDT - 08/07/2010 23:59 EDT Hospital Encounter [facility] [address] [place] [address] Skyler Blanco MD [address] [place] [phone] Discharge Disposition: Auto Discharge Social History [...] 12/29/2024 10:20 EST Office Visit [facility] Rheumatology & Immunology - [address] [address] Micaela Hoff MD 111 [facility], [address] [place] [address] documented as of this encounter Visit Diagnoses Not on filedocumented in this encounter Care Teams Recruiting Coordinator Relationship Specialty Start Date End Date Ladonna Maurer PA [address] [place] [id number] PCP - General 05/20/10 06/02/11 documented as of this encounter
--- OUTSIDE RECORDS SUMMARY | 2024-06-14 02:11 | XMS_ITS | Encounter Summary ---
Author Organization [facility] Address [address] [place] [address] Care Team Providers Care Recovery Collector Name Role Phone Ladonna Maurer Primary Care Provider [phone] Reason for Visit * Reason Comments Obesity Encounter Details Date Type Department Care Team (Late st Contact Info) Description 10/10/2010 11:00 EST Office Visit [facility] Bariatric Surgery - [place] [address] [place], [place] [phone] Skyler Blanco MD [address] [place] [address] Morbid obesity ([facility]) (Primary Dx) Social History Tobacco Use Types [...] Crackers, Pop tarts, cookie, cocoa, bread, cheese, divehi fries with gravy and cheese Snacking:yes, crackers, [...] encounter Miscellaneous Notes * Scanned Note-Null - Rn Patient Care, Scan - 09/27/2011 1201 EST documented in this encounter Plan of Treatment Upcoming Encounters Date Type Department Care Team (Late st Contact Info) Description 12/29/2024 10:20 EST Office Visit [facility] Rheumatology & Immunology - [facility] [address] [place] [address] Micaela Hoff MD 111 [facility], [address] [place] [phone] documented as of this encounter Visit Diagnoses Diagnosis Morbid obesity ([facility])- Primary Morbid obesity documented in this encounter [...] 07/14/2011 added in this encounter Care Teams Recovery Collector Relationship Specialty Start Date End Date Ladonna Maurer PA [address] [place] [address] PCP - General 05/20/10 06/02/11 documented as of this encounter
--- OUTSIDE RECORDS SUMMARY | 2024-06-14 02:11 | XMS_ITS | Encounter Summary ---
Author Organization [facility] Address [address] [place] [address] Care Team Providers Care Project Superintendent Name Role Phone Unavailable Primary Care Provider Unavailabl e Encounter Details Date Type Department Care Team (Latest Contact Info) Description 10/07/2007 15:46 EST Hospital Encounter [address] [address] Kenton Parrish MD Discharge Disposition: Auto Discharge [...] [facility] Rheumatology & Immunology - [address] [address] Micaela Hoff MD 111 [facility], [address] [place] [phone] documented as of this encounter Visit Diagnoses Not on filedocumented in this encounter
--- OUTSIDE RECORDS SUMMARY | 2024-06-14 02:11 | XMS_ITS | Encounter Summary ---
Author Organization [facility] Address [address] [place] [address] Care Team Providers Care Lead Principal Technical Architect Name Role Phone Ladonna Maurer Primary Care Provider Yair Dow MD Primary Care Provider [phone] Unknown, Provider Primary Care Provider [phone] Ladonna Maurer Primary Care Provider [phone] Cara Arteaga MD Primary Care Provider Conor Angel MD Primary Care Provider [phone] None, Provider Primary Care Provider Kaylynn Pizarro MD Primary Care Provider [phone] Encounter Details Date Type Department Care Team (Late st Contact Info) Description 08/28/2010 Documentation Visit [facility] Bariatric Surgery - [place] [address] [place], [place] [address] Kristine Escamilla, UTILITY DRIVER [address] [facility] [address] [place], [place] [address] Social History Tobacco Use Types Packs/Day Years [...] [facility] Rheumatology & Immunology - [facility] [address] [place] [address] Micaela Hoff MD 111 [facility], [address] [place] [phone] documented as of this encounter Visit Diagnoses Not on filedocumented in this encounter Additional Health Concerns Infection Onset Date Last Indicated Resolved Time 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 Care Teams Lead Principal Technical Architect Relationship Specialty Start Date End Date Ladonna Maurer PA [address] [place] [address] PCP - General 05/20/10 06/02/11 Yair Dow MD [address] [place] [address] DR SIMONS [address] [place] [phone] PCP - General 06/03/11 03/08/12 Unknown, ProviderMD PCP - General 03/09/12 05/11/12 Ladonna Maurer PA [address] [place] [address] PCP - General 05/12/12 01/24/13 Cara Arteaga MD [address] [place] [phone] PCP - General 01/25/13 02/06/14 Conor Angel MD [address] [place] [address] PCP - General 02/07/14 06/08/14 None, Provider PCP - General 06/09/14 03/01/15 Kaylynn Gimenez MD [address] [place] [address] PCP - General 03/02/15 documented as of this encounter
--- OUTSIDE RECORDS SUMMARY | 2024-06-14 02:11 | XMS_ITS | Encounter Summary ---
Author Organization [facility] Address [address] [place] [address] Care Team Providers Care Podiatric Surgeon Name Role Phone Unavailable Primary Care Provider Unavailabl e Encounter Details Date Type Department Care Team (Late st Contact Info) Description 10/31/2007 Office Visit [facility] - [place] [address] [place] [address] Katharina Corey, PA [address] [place] [address] Social History Tobacco Use Types Packs/Day Years [...] (unable to quantify since bleeding began just bellhop captain, pt noted moderate amount of blood [...] The patient has had care by an occupational psychologist. The patient has had problems with previous [...] sensory deficit. PROGRESS AND PROCEDURES E.D. Course: legal summer intern feels pt is ok for d/c with f/u with obgyn. Pt agrees. Pelvic exam done by legal summer intern resident.. Consult obtained from OB-PHYSICAL SCIENCE TEACHER. Case discussed. Will see patient in the ED today. Consultation performed in ED. Patient/family counseled. EDAttending on duty and available for supervision: Heidy Paul. Disposition: Condition: good. Discharged home. CLINICAL IMPRESSION Mild vaginal bleeding. Second trimester . INSTRUCTIONS Drink plenty of fluids. Your Current Medications: Your current home medications have been reviewed by the Emergency Department physician assistant printer floor covering. No changes in your current home medications are recommended at this time. Continue taking the following medications: lexapro vitamins. OTC Medications: Acetaminophen (available over the counter): take according tolabel instructions. Follow-up: Follow up with an occupational psychologist as scheduled. Follow-up: LIZZETH CLAYTON MD, RADIO TIME SALES SUPERVISOR, , [address] [facility] [address], [address]. Follow up as scheduled. Understanding of the discharge instructions verbalized by patient. (Electronically signed by AUSTIN Maddox 10/31/2007 19:30) TERI Ford VisitID: [id number] Date: 10/31/2007 10/31/2007 9:42 DEVIN REFERRING PT TO RADIO TIME SALES SUPERVISOR FOR ABDOMINAL CRAMPS AND VAGINAL BLEEDING, 15 [...] bleeding and pressure. Pt sent here by PHYSICAL SCIENCE TEACHER MD.). Treatment EXTRACT OPERATOR: None. PAST HX: Negative. Currently : 15 weeks. SOCIAL HX: Nonsmoker. No alcohol use. No report of abuse. Arrived by private vehicle. Historian: patient. --1019 Kelle Prescott R.N.. DISPOSITION / DISCHARGE The patient was discharged home and accompanied by design chief. The patient left the Emergency Department ambulatory anda private vehicle. Plaster Machine Operator driving. --1133 Sis Rg R.N.. Kelle Rg R.N. Locked/Released at 10/31/2007 12:52 by Kelle McFaul, R.N. documented in this encounter Plan of Treatment Upcoming Encounters Date Type Department Care Team (Late st Contact Info) Description 12/29/2024 10:20 EST Office Visit [facility] Rheumatology & Immunology - [address] [address] Micaela Hoff MD 111 [facility], [address] [place] [address] documented as of this encounter Visit Diagnoses Not on filedocumented in this encounter
--- OUTSIDE RECORDS SUMMARY | 2024-06-14 02:11 | XMS_ITS | Encounter Summary ---
Author Organization [facility] Address [address] [place] [address] Care Team Providers Care Manager Relationship Name Role Phone Ladonna Maurer Primary Care Provider [phone] Encounter Details Date Type Department Care Team (Late st Contact Info) Description 10/09/2010 Results Only [facility] Laboratory Services - [facility] ([facility]) [address] [place], [place] [address] Ladonna Maurer PA [address] [place], [place] [phone] Social History Tobacco Use Types Packs/Day Years Used Date Smoking Tobacco: Never Assessed Sex and Gender Information Value Date Recorded Sex Assigned at Not on file Gender Identity Not on file Sexual Orientation Not on file documented as of this encounter Plan of Treatment Upcoming Encounters Date Type Department Care Team (Late Contact Info) Description 12/29/2024 10:20 EST Office Visit [facility] Rheumatology & Immunology - [facility] [address] [place], [place] [address] Micaela Hoff MD 111 [facility], [address] [place] [address] documented as of this encounter [...] CROWE, TERI R ? Accession #: ? [id number] ? : ? 1980 (Age: 30) ??F [...] reviewed and electronically signed by: ? Beverly Washburn, CT(ASCP) ? Report Date: ??10/15/2010 14:01 ? End of Report ? [facility] 10/09/2010 10/10/2010 Ladonna AVILA PATHOLOGY ORDERABLES [facility] [address] [place] [address] documented in this encounter Visit Diagnoses Not on filedocumented in this encounter Care Teams Manager Relationship Relationship Specialty Start Date End Date Ladonna Maurer PA [address] [place] [address] PCP - General 05/20/10 06/02/11 documented as of this encounter
--- OUTSIDE RECORDS SUMMARY | 2024-06-14 02:11 | XMS_ITS | Encounter Summary ---
Author Organization [facility] Address [address] [place] [address] Care Team Providers Care Single Needle Operator Name Role Phone Unavailable Primary Care Provider Unavailabl e Encounter Details Date Type Department Care Team (Latest Contact Info) Description 04/20/2008 19:02 EDT - 04/23/2008 11:59 EDT Hospital Encounter [facility] Mother/Baby Unit [address] [place], [place] [address] Jameson Logan [address] [address] Linda Bustillos MD Discharge Disposition: [...] Info) Description 12/29/2024 10:20 EST Office Visit [facility] Rheumatology & Immunology - [facility] [address] [place], [place] [phone] Micaela Hoff MD 111 [facility], [address] [place] [phone] documented as of this encounter Procedures Procedure [...] LAB Sample Type ARTERIAL Cord BURGESS ALL[place] holistic health [place] [id number] Test performed by Chemistry [facility] 04/21/2008 8:25 EDT 04/21/2008 8:30 EDT Newton Lucas MD CHEMISTRY & BLOOD GA S ORDERABLES [facility] [address] [place] [address] * (ABNORMAL) BLOOD GAS, G3 ISTAT (04/21/2008 [...] Sample Type Venous specimen. Cord BURGESS MOISÉS holistic health practitioner ID [id number] [facility] 04/21/2008 8:10 EDT 04/21/2008 8:59 EDT Newton Lucas MD CHEMISTRY & BLOOD GA S ORDERABLES [facility] [address] [place] [address] * SURGICAL PATHOLOGY (04/21/2008 0:00 EDT) Pathology Report: SURGICAL PATHOLOGY REPORT Reports generated via electronic interface contain original data; however they are lacking the format of the original report. Caution should be taken when reading/interpretin g unformatted reports. Name: ? TERI CROWE ? Accession #: ? [id number] ? : ? 1980 (Age: 28) ??F [...] spongy deep red parenchyma devoid of lesion. ??[place] sections are submitted as follows: BLOCK BOND A1 ?[place] proximal and distal umbilical cord A2 ?Membrane rolls to include focal green discoloration A3, A4 ?Full thickness central placenta (A. Natividad)/mpl End of Report [facility] 04/21/2008 04/21/2008 9:4 9 EDT Jameson Logan PATHOLOGY ORDERABLES [facility] [address] [place] [address] * (ABNORMAL) HEMAGRAM (04/20/2008 23:35 EDT) WBC [...] RDW-CV 14.7(H) 11.7 - 14.6 % [facility] 04/20/2008 23:3 5 EDT 04/20/2008 23:46 EDT Newton Lucas MD HEMATOLOGY & PF4 ORD ERABLES [facility] [address] [place] [address] documented in this encounter Visit Diagnoses Not on filedocumented in this encounter
--- OUTSIDE RECORDS SUMMARY | 2024-06-14 02:11 | XMS_ITS | Encounter Summary ---
Author Organization [facility] Address [address] [place] [address] Care Team Providers Care Customs Agent Name Role Phone Ladonna Maurer Primary Care Provider [phone] Encounter Details Date Type Department Care Team (Latest Contact Info) Description 09/03/2010 6:35 EDT - 09/03/2010 23:59 EDT Hospital Encounter [facility] [address] [place] [address] Skyler Blanco MD [address] [place] [phone] Discharge Disposition: Home or Self Care [...] Code Departure Means Destination Home or Self Mcfp documented in this encounter Progress Notes * [...] [facility] Rheumatology & Immunology - [address] [phone] Micaela Hoff MD [address] [place] [address], [address] [place] [address] documented as of this encounter [...] PROCEDURE/MINOR S URGICAL ORDERABLES Performing Organization Address City/[facility] [address]/[facility] Co de Phone Number POINT OF CARE * ORDERS - SCANNED (09/04/2010 10:10 EDT) 09/04/2010 10:1 0 EDT Narrative Procedure Note Inpatient, Physician - 09/03/2010 0:00 EDT Physician Inpatient MD ADMISSION ORDERAB LES Performing Organization Address [facility] [address]/[facility] Co de Phone Number POINT OF CARE * PATHOLOGY - SCANNED (09/04/2010 10:10 EDT) 09/04/2010 10:1 0 EDT Narrative Procedure Note Inpatient, Physician - 09/03/2010 0:00 EDT Physician Inpatient MD LAB INFO SERVICE AND SUPPORT & PHONE RESULT Performing Organization Address [facility] [address]/[facility] Co de Phone Number POINT OF CARE documented in this encounter Visit Diagnoses Not on filedocumented in this encounter Care Teams Customs Agent Relationship Specialty Start Date End Date Ladonna Maurer PA [address] [place] [address] PCP - General 05/20/10 06/02/11 documented as of this encounter
--- OUTSIDE RECORDS SUMMARY | 2024-06-14 02:11 | XMS_ITS | Encounter Summary ---
Author Organization [facility] Address [address] [place] [address] Care Team Providers Care Cement Based Materials Pump Tender Name Role Phone Unavailable Primary Care Provider Unavailabl e Encounter Details Date Type Department Care Team (Late st Contact Info) Description 11/01/2007 12:15 EST Hospital Encounter [address] [address] Kenton Parrish MD Social History Tobacco Use [...] [facility] - [address] [address] Micaela Hoff MD [address] [place] [address], [address] [place] [phone] documented as of this encounter Visit Diagnoses Not on filedocumented in this encounter Additional Health Concerns Infection Onset Date Last Indicated Resolved Time 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
--- OUTSIDE RECORDS SUMMARY | 2024-06-14 02:11 | XMS_ITS | Encounter Summary ---
Author Organization [facility] Address [address] [place] [address] Care Team Providers Care Catering Chef Name Role Phone Ladonna Maurer Primary Care Provider [phone] Reason for Visit * Reason Onset Date Comments Results 02/11/2011 Encounter Details Date Type Department Care Team (Late st Contact Info) Description 02/11/2011 Telephone [facility] Cardiology - [facility] [address] [place], [place] [address] Jose Manuel Benjamin MD 111 [facility], [facility] [address] [place] [address] Results Social History Tobacco Use [...] is indicated. Jose Manuel Benjamin Jr. MD Supervisor Electronics Processingredeye gunner [facility] Pager # [phone] documented in this encounter Plan of Treatment Upcoming Encounters Date Type Department Care Team (Late st Contact Info) Description 12/29/2024 10:20 EST Office Visit [facility] Rheumatology & Immunology - [address] [address] Micaela Hoff MD [address] [place] [address], [address] [place] [phone] documented as of this encounter Visit Diagnoses Not on filedocumented in this encounter Care Teams Catering Chef Relationship Specialty Start Date End Date Ladonna Maurer PA [address] [place] [phone] PCP - General 05/20/10 06/02/11 documented as of this encounter
--- OUTSIDE RECORDS SUMMARY | 2024-06-14 02:11 | XMS_ITS | Encounter Summary ---
Author Organization [facility] Address [address] [place] [address] Care Team Providers Care Asphalt Paver Operator Name Role Phone Unavailable Primary Care Provider Unavailabl e Encounter Details Date Type Department Care Team (Latest Contact Info) Description 11/11/2007 13:46 EST Hospital Encounter [address] [address] Kenton Parrish MD Discharge Disposition: Auto Discharge [...] Info) Description 12/29/2024 10:20 EST Office Visit [facility] Rheumatology & Immunology - [address] 9[address] Micaela Hoff MD 111 [facility], Level 5 [place] [phone] documented as of this encounter Visit Diagnoses Not on filedocumented in this encounter
--- OUTSIDE RECORDS SUMMARY | 2024-06-14 02:11 | XMS_ITS | Encounter Summary ---
Author Organization [facility] Address [address] [place] [address] Care Team Providers Care Testing Manager Name Role Phone Ladonna Maurer Primary Care Provider [phone] Encounter Details Date Type Department Care Team (Late st Contact Info) Description 01/25/2008 Results Only [facility] Obstetrics & Midwifery - [address] [phone] Makeda Lucas MD [address] [place] [address] 4 [place] [phone] Social History Tobacco Use Types Packs/Day Years [...] [facility] - [address] [phone] Micaela Hoff MD [address] [place] [phone] documented as of this encounter Procedures Procedure Name Priority Date/Time Associated Diagnosis Comments GLUCOSE-1HR GESTATIONAL SCREEN Routine 01/25/2008 17:45 EDT COMPLETE BLOOD COUNT Routine 01/25/2008 17:45 EDT documented in this encounter Results * GLUCOSE-1HR GESTATIONAL SCREEN (01/25/2008 17:45 EDT) Pathologist [facility] Glucose-1hr Gest Scn 95 50 - 135 mg/dl [facility] Comment: A one hour glucose greater than or equal to 135 mg/dl should be further evaluated with a formal three hour glucose tolerance test. Glucose Dose 50 g [facility] 01/25/2008 17:4 5 EDT 01/25/2008 17:47 EDT Makeda Lucas MD PACKAGES & DNA PROBE ORDERABLES Performing Organization Address City/[facility]/ZIP Co de Phone Number [facility] [address] [place] [address] * (ABNORMAL) HEMAGRAM (01/25/2008 17:45 EDT) Pathologist [facility] WBC 9.82 4.0 - 12.4 K/cmm [facility] [...] & PF4 ORD ERABLES Performing Organization Address City/[facility]/ZIP Co de Phone Number [facility] [address] [place] [address] documented in this encounter Visit Diagnoses Not on filedocumented in this encounter Care Teams Testing Manager Relationship Specialty Start Date End Date Ladonna Maurer PA [address] [place] [address] PCP - General 05/20/10 06/02/11 documented as of this encounter
--- OUTSIDE RECORDS SUMMARY | 2024-06-14 02:11 | XMS_ITS | Encounter Summary ---
Author Organization [facility] Address [address] [place] [address] Care Team Providers Care Fpga Engineer Name Role Phone Unavailable Primary Care Provider Unavailabl e Encounter Details Date Type Department Care Team (Late st Contact Info) Description 12/14/2007 13:42 EST Hospital Encounter [address] [address] Magda Tejada MD [address] [place] [address] Makeda Lucas MD [address] [place] [address], Level [address] [place] [address] Social History Tobacco Use Types Packs/Day Years [...] Office Visit [place] Rheumatology & Immunology - [address] [address] Micaela Hoff MD 111 [facility], [address] [place] [address] documented as of this encounter Procedures Procedure Name Priority Date/Time Associated Diagnosis Comments RESIDENTIAL DETAILED 12/14/2007 15:59 EST documented in this encounter Results * RESIDENTIAL DETAILED (12/14/2007 15:59 EST) Anatomical Region Laterality Modality Other 12/14/2007 15:5 9 EST Narrative 04/23/2009 3:55 EDT DETAILED,[id number] AND CERVICAL LENGTH/1ST AND 2ND TRIMESTER BLEEDING,H/O SEPTUM WITH REPAIR,H/O 20 WK LOSS Please refer to the separate [facility] report. ??Contact Maternal Medicine. Procedure Note Shanique Eagle MD - 04/23/2009 DETAILED,[id number] AND CERVICAL LENGTH/1ST AND 2ND TRIMESTER BLEEDING,H/O SEPTUM WITH REPAIR,H/O 20 WK LOSS Please refer to the separate [facility] report. Contact Maternal Medicine. Magda Tejada MD [facility] ORDERABLE S documented in this encounter Visit Diagnoses Not on filedocumented in this encounter Additional Health Concerns Infection Onset Date Last Indicated Resolved Time MRSA 10/20/2011 10/20/2011 documented as of this encounter
--- OUTSIDE RECORDS SUMMARY | 2024-06-14 02:11 | XMS_ITS | Encounter Summary ---
Author Organization [facility] Address [address] [place] [address] Care Team Providers Care Anesthesiologist Assistant Name Role Phone Ladonna Maurer Primary Care Provider Yair Dow MD Primary Care Provider [phone] Unknown, Provider Primary Care Provider [phone] Ladonna Maurer Primary Care Provider [phone] Cara Arteaga MD Primary Care Provider Conor Angel MD Primary Care Provider [phone] None, Provider Primary Care Provider Kaylynn Pizarro MD Primary Care Provider [phone] Encounter Details Date Type Department Care Team (Late st Contact Info) Description 08/02/2010 Documentation Visit [facility] Bariatric Surgery - [place] [address] [place], [place] [phone] [address] Social History [facility] [address] [address] Micaela Hoff MD 111 [facility], [address] [place] [phone] documented as of this encounter Visit Diagnoses Not on filedocumented in this encounter Additional Health Concerns Infection Onset Date Last Indicated Resolved Time MRSA 10/20/2011 10/20/2011 documented as of this encounter Care Teams Anesthesiologist Assistant Relationship Specialty Start Date End Date Ladonna Maurer PA [address] [place] [address] PCP - General 05/20/10 06/02/11 Yair Dow MD [address] [place] [address] [phone] PCP - General 06/03/11 03/08/12 Unknown, Provider, PCP - General 03/09/12 05/11/12 Ladonna Maurer PA [address] [place] [address] PCP - General 05/12/12 01/24/13 Cara Arteaga MD [address] [place] [address] PCP - General 01/25/13 02/06/14 Conor Angel MD [address] [place] [phone] PCP - General 02/07/14 06/08/14 None, Provider PCP - General 06/09/14 03/01/15 Kaylynn Gimenez MD [address] [place] [phone] PCP - General 03/02/15 documented as of this encounter
--- OUTSIDE RECORDS SUMMARY | 2024-06-14 02:11 | XMS_ITS | Encounter Summary ---
Author Organization [facility] Address [address] [place] [address] Care Team Providers Care Convention Services Manager Name Role Phone Ladonna Maurer Primary Care Provider [phone] Encounter Details Date Type Department Care Team (Late st Contact Info) Description 09/03/2007 Results Only [facility] Obstetrics & Midwifery - [address] [phone] Shanique Eagle MD [address] [phone] Social History Tobacco Use Types Packs/Day Years Used Date Smoking Tobacco: Never Assessed Sex and Gender Information Value Date Recorded Sex Assigned at Not on file Gender Identity Not on file Sexual Orientation Not on file documented as of this encounter Plan of Treatment Upcoming Encounters Date Type Department Care Team (Late st Contact Info) Description 12/29/2024 10:20 EST Office Visit [facility] Rheumatology & Immunology - [address] [address] Micaela Hoff MD 111 [facility], Level [address] [place] [address] documented as of this encounter [...] growth [facility] Report Status Final [id number] [facility] 09/03/2007 15:4 9 EDT 09/03/2007 15:51 EDT Shanique Eagle MD MICROBIOLOGY - GENER AL ORDERABLES [facility] [address] [place] [address] * (ABNORMAL) PROFILE AND VARICELLA (09/03/2007 15:48 EDT) ABO and Rh Type A POS [facility] Antibody Screen Neg [facility] [...] % Basophils 0.4 0.2 - 1.4 % [facility] ABS Neutrophils 5.32 2.20 - 8.85 K/cmm [facility] ABS Lymphs 2.12 1.09 - 3.30 K/cmm [facility] Monocytes 0.67 0.1 - 0.8 K/cmm [facility] Eosinophils 0.15 0.03 - 0.61 K/cmm [facility] ABS Basophils 0.03 0.01 - 0.11 K/cmm [facility] Type of Diff: Automated [facility] Hepatitis B Surface Ag Neg [facility] Syphilis Sero (RPR) NONREACT. NR Dils [facility] Rubella IgG Ab Antibody detected Assayed utilizing the [employer] Immulite 2500. Values may vary with other methods. [facility] Varicella IgG Ab Antibody detected [facility] 09/03/2007 15:4 8 EDT 09/03/2007 15:50 EDT Shanique Eagle MD PACKAGES & DNA PROBE ORDERABLES Performing Organization Address City/[facility] Co de Phone Number [facility] [address] [place] [address] * CHLAMYDIA/GC AMPLIFIED PROBE (09/03/2007 15:11 EDT) Specimen Description Cervix [facility] Result No Chlamydia trachomatis or Neisseria gonorrhoeae DNA detected by thermal technician mediated amplification. [facility] Report Status Final [id number] [facility] 09/03/2007 15:1 1 EDT 09/03/2007 16:27 EDT Shanique Eagle MD MICROBIOLOGY - GENER AL ORDERABLES Performing Organization Address City/[facility] Co de Phone Number [facility] [address] [place] [address] * CYTOPATHOLOGY (09/03/2007 0:00 EDT) Pathology Report: CYTOPATHOLOGY REPORT Reports generated via electronic interface contain original data; however they are lacking the format of the original report. Caution should be taken when reading/interpreti ng unformatted reports. Name: ? TERI CROWE ? Accession #: ? [id number] : ? 1980 (Age: 27) ??F ?Collect Date: ? 09/03/2007 Location: ? [facility] ? Receive Date: ? 09/06/2007 Provider: ?SHANIQUE EAGLE MD Copy to: ? Specimen/Source: ?ThinPrep Pap Test, Cervix/Endocervix, processed on Litesprite ThinPrep Imaging System, with manual evaluation Last [...] Eagle MD PATHOLOGY ORDERABLES [facility] [address] [place] [address] documented in this encounter Visit Diagnoses Not on filedocumented in this encounter Care Teams Convention Services Manager Relationship Specialty Start Date End Date Ladonna Maurer PA [address] [place] [address] PCP - General 05/20/10 06/02/11 documented as of this encounter
--- OUTSIDE RECORDS SUMMARY | 2024-06-14 02:11 | XMS_ITS | Encounter Summary ---
Author Organization [facility] Address [address] [place] [address] Care Team Providers Care Tax Accountant Name Role Phone Unavailable Primary Care Provider Unavailabl e Encounter Details Date Type Department Care Team (Latest Contact Info) Description 04/03/2008 14:22 EDT Hospital Encounter [address] [address] Linda Bustillos MD Discharge Disposition: Auto Discharge [...] [facility] Rheumatology & Immunology - [facility] [address] [place], [place] [address] Micaela Hoff MD 111 [facility], [address] [place] [address] documented as of this encounter Visit Diagnoses Not on filedocumented in this encounter
--- OUTSIDE RECORDS SUMMARY | 2024-06-14 02:11 | XMS_ITS | Encounter Summary ---
Author Organization [facility] Address [address] [place] [address] Care Team Providers Care Waste Minimization Technician Name Role Phone Unavailable Primary Care Provider Unavailabl e Encounter Details Date Type Department Care Team (Latest Contact Info) Description 01/28/2008 18:00 EDT Hospital Encounter [facility] [address] [place] [address] Linda Bustillos MD Discharge Disposition: Home or [...] [facility] Rheumatology & Immunology - [facility] [address] [place], [place] [address] Micaela Hoff MD [address] [facility], [address] [place] [phone] documented as of this encounter Visit Diagnoses Not on filedocumented in this encounter
--- OUTSIDE RECORDS SUMMARY | 2024-06-14 02:11 | XMS_ITS | Encounter Summary ---
Author Organization [facility] Address [address] [place] [address] Care Team Providers Care Senior Materials Planner Name Role Phone Unavailable Primary Care Provider Unavailabl e Encounter Details Date Type Department Care Team (Late st Contact Info) Description 02/08/2008 15:13 EDT Hospital Encounter [address] [address] Gracia Correa MD [address] [place] [address] 4 [place] [phone] Discharge Disposition: Auto Discharge Social History Tobacco [...] Description 12/29/2024 10:20 EST Office Visit [facility] Rheumatology & Immunology [address] [address]60[address] Micaela Hoff MD [address] [place] [address] 5 [place] [phone] documented as of this encounter Visit Diagnoses Not on filedocumented in this encounter
--- OUTSIDE RECORDS SUMMARY | 2024-06-14 02:11 | XMS_ITS | Encounter Summary ---
Author Organization [facility] Address [address] [place] [address] Care Team Providers Care Design Analyst Name Role Phone Ladonna Maurer Primary Care Provider [phone] Encounter Details Date Type Department Care Team (Late st Contact Info) Description 11/01/2007 Results Only [facility] Obstetrics & Midwifery - [address] [address] Kenton Parrish MD Social History Tobacco Use [...] [facility] Rheumatology & Immunology - [address] [address] Micaela Hoff MD [address] [place] [address], Level [address] [place] [phone] documented as of this encounter Procedures Procedure [...] AND SEROL OGY ORDERABLES Performing Organization Address [facility] Co de Phone Number [facility] [address] [place] [address] * GLUCOSE-1HR GESTATIONAL SCREEN (11/01/2007 13:23 EST) [...] & DNA PROBE ORDERABLES Performing Organization Address [facility] de Phone Number [facility] [address] [place] [address] documented in this encounter Visit Diagnoses Not on filedocumented in this encounter Care Teams Design Analyst Relationship Specialty Start Date End Date Ladonna Maurer PA [address] [place] [address] PCP - General 05/20/10 06/02/11 documented as of this encounter
--- OUTSIDE RECORDS SUMMARY | 2024-06-14 02:11 | XMS_ITS | Encounter Summary ---
Author Organization [facility] Address [address] [place] [address] Care Team Providers Care Well Drill Operator Helper Cable Tool Name Role Phone Unavailable Primary Care Provider Unavailabl e Encounter Details Date Type Department Care Team (Latest Contact Info) Description 06/01/2008 15:43 EDT Hospital Encounter [address] [address] Shanique Eagle MD [address] [address] Discharge Disposition: Auto Discharge Social History Tobacco [...] [facility] Rhe[facility] & Immunology - [address] [address] Micaela Hoff MD [address] [place] [address], [address] [place] [phone] documented as of this encounter Visit Diagnoses Not on filedocumented in this encounter
--- OUTSIDE RECORDS SUMMARY | 2024-06-14 02:11 | XMS_ITS | Encounter Summary ---
Author Organization [facility] Address [address] [place] [address] Care Team Providers Care Desizing Machine Offbearer Name Role Phone Ladonna Maurer Primary Care Provider Reason for Referral * (Routine) - Closed Specialty Diagnoses / Procedures Referred By Contac t Referred To Contact Diagnoses Hypothyroid Morbid obesity (HCC-CMS) TAMMY (obstructive sleep apnea) Procedures HEMOGLOBIN A1C Kristine Escamilla, HUANG [address] [place] [address] Referral ID Status Reason Start Date Expiration Date Visits Re quested Visits Authorized [id number] Closed 11/27/2010 1 1 * (Routine) - Closed Specialty Diagnoses / Procedures Referred By Contac t Referred To Contact Diagnoses Hypothyroid Morbid obesity (HCC-CMS) TAMMY (obstructive sleep apnea) Procedures VITAMIN D (25,OH) Kristine Escamilla, HUANG [address] [place] [address] Referral ID Status Reason Start Date Expiration Date Visits Re quested Visits Authorized [id number] Closed 11/27/2010 1 1 * (Routine) - Closed Specialty Diagnoses / Procedures Referred By Contac t Referred To Contact Diagnoses Hypothyroid Morbid obesity (HCC-CMS) TAMMY (obstructive sleep apnea) Procedures LIVER FUNCTION TESTS Kristine Escamilla APRN [address] [place] [address] Referral ID Status Reason Start Date Expiration Date Visits Re quested Visits Authorized [id number] Closed 11/27/2010 1 1 * (Routine) - Closed Specialty Diagnoses / Procedures Referred By Contac t Referred To Contact Diagnoses Hypothyroid Morbid obesity (HCC-CMS) TAMMY (obstructive sleep apnea) Procedures HEMAGRAM Kristine Escamilla, WORKERS COMPENSATION ANALYST [address] [place] [address] Referral ID Status Reason Start Date Expiration Date Visits Re quested Visits Authorized [id number] Closed 11/27/2010 1 1 * (Routine) - Closed Specialty Diagnoses / Procedures Referred By Contac t Referred To Contact Diagnoses Hypothyroid Morbid obesity (HCC-CMS) TAMMY (obstructive sleep apnea) Procedures [facility] Kristine Escamilla, WORKERS COMPENSATION ANALYST [address] [place] [address] Referral ID Status Reason Start Date Expiration Date Visits Re quested Visits Authorized [id number] Closed 11/27/2010 1 1 Reason for Visit * Reason Comments Obesity pre op Encounter Details Date Type Department Care Team (Late st Contact Info) Description 11/27/2010 10:00 EST Office Visit [facility] Bariatric Surgery - [place] [address] [place] [address] Kristine Escamilla, WORKERS COMPENSATION ANALYST[address] [phone] Hypothyroid; Morbid obesity (HCC-CMS); TAMMY (obstructive sleep [...] - 11/27/2010 1025 EST LADONNA MAURER [address] [facility] 30 [place] [address] Dear Erasto : Thank you for referring [...] does not currently use illicit drugs. 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 with 1 3yo. 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 For exercise Teri is struggling with chronic pain of chronic sinus infection so hoping that with treatment she will be able to start exercising. . Teri met with our program general education professor for 30 minutes to review preoperative dietary recommendations.I did consult our general education professor following her visit with the patient and [...] visit in discussion of possible short and termite control representative risks and complications of bariatric surgery as [...] Info) Description 12/29/2024 10:20 EST Office Visit [facility] Rheumatology & Immunology - [address] [address] Micaela Hoff MD [address] [place] [address], Level [address] [place] [address] documented as of this encounter [...] 12:14 EST 11/27/2010 12:16 EST Kristine Escamilla WORKERS COMPENSATION ANALYST CHEMISTRY & BLOOD GAS ORDERABLES [facility] [address] [place] [address] * VITAMIN D (25,OH) (11/27/2010 12:14 EST) 25OH Vitamin D Tot 14.8 ng/ml [facility] Comment: Reference Range: <10 ng/ml: Deficient 10-30 ng/ml: Insufficient 30-100 ng/ml: Sufficient >100 ng/ml: Toxic Blood specimen (specimen) 11/27/2010 12:14 EST 11/27/2010 12:16 EST Kristine Escamilla APRN CHEMISTRY & BLOOD GAS ORDERABLES Performing Organization Address [facility] de Phone Number [facility] [address] [place] [address] * LIVER FUNCTION TESTS (11/27/2010 12:14 EST) [...] & BLOOD GAS ORDERABLES Performing Organization Address [facility] Co de Phone Number [facility] [address] [place] [address] * HEMAGRAM (11/27/2010 12:14 EST) Pathologist [facility] WBC 8.48 4.0 - 12.4 K/cmm [facility] [...] HEMATOLOGY & PF4 ORDERABLES Performing Organization Address [facility] Co de Phone Number [facility] [address] [place] [address] * CREATININE (11/27/2010 12:14 EST) Creatinine 0.86 0.7 - 1.5 mg/dl [facility] GFR, Calculated >60 ml/min/1.7 3m2 [facility] Blood specimen (specimen) 11/27/2010 12:14 EST 11/27/2010 12:16 EST Kristine Escamilla APRN CHEMISTRY & BLOOD GAS ORDERABLES Performing Organization Address City/[facility] de Phone Number [facility] [address] [place] [address] documented in this encounter Visit Diagnoses Diagnosis Hypothyroid Unspecified hypothyroidism Morbid obesity ([facility]) Morbid obesity TAMMY (obstructive sleep [...] documented as of this encounter Care Teams Desizing Machine Offbearer Relationship Specialty Start Date End Date Ladonna Maurer PA [address] [place] [address] PCP - General 05/20/10 06/02/11 documented as of this encounter
--- OUTSIDE RECORDS SUMMARY | 2024-06-14 02:11 | XMS_ITS | Encounter Summary ---
Author Organization [facility] Address [address] [place] [address] Care Team Providers Care Cisco Certified Network Associate Name Role Phone Ladonna Maurer Primary Care Provider [phone] Reason for Visit * Reason Onset Date Comments Other 12/27/2010 Encounter Details Date Type Department Care Team (Late Contact Info) Description 12/27/2010 Telephone [facility] Bariatric Surgery - [address] [address] Alesha Russo, RN [address] [place] [address] Other Social History Tobacco Use Types Packs/Day [...] Per Dr. Blanco: New script called to [facility]. Nexium 40 mg capsule; take one daily x 90 days. 2 refills. Patient aware documented in this encounter Plan of Treatment Upcoming Encounters Date Type Department Care Team (Late Contact Info) Description 12/29/2024 10:20 EST Office Visit [facility] Rheumatology & Immunology - [address] [address] Micaela Hoff MD [address] [facility], Level [address] [place] [phone] documented as of this encounter Visit Diagnoses Not on filedocumented in this encounter Care Teams Cisco Certified Network Associate Relationship Specialty Start Date End Date Ladonna Maurer PA [address] [place] [phone] PCP - General 05/20/10 06/02/11 documented as of this encounter
--- OUTSIDE RECORDS SUMMARY | 2024-06-14 02:11 | XMS_ITS | Encounter Summary ---
Author Organization [facility] Address [address] [place] [address] Care Team Providers Care National Sales Executive Name Role Phone Unavailable Primary Care Provider Unavailabl e Encounter Details Date Type Department Care Team (Late st Contact Info) Description 03/28/2008 15:53 EDT Hospital Encounter [address] [address] Makeda Lucas MD [address] [place] [address] 4 [place] [phone] Discharge Disposition: Auto Discharge Social History Tobacco [...] [facility] Rheumatology & Immunology [address] [address] Micaela Hoff MD [address] [place] [address] 5 [place] [phone] documented as of this encounter Visit Diagnoses Not on filedocumented in this encounter
--- OUTSIDE RECORDS SUMMARY | 2024-06-14 02:11 | XMS_ITS | Encounter Summary ---
Author Organization [facility] Address [address] [place] [address] Care Team Providers Care Production Control Coordinating Clerk Name Role Phone Unavailable Primary Care Provider Unavailabl e Encounter Details Date Type Department Care Team (Late st Contact Info) Description 06/08/2008 13:53 EDT Hospital Encounter [address] [address] Daily, [place] [address] Social History Tobacco Use Types Packs/Day Years [...] Description 12/29/2024 10:[address] [facility] Rheumatology & Immunology - [address] [address] Micaela Hoff MD 111 [facility], [address] [place] [phone] documented as of this encounter Procedures Procedure [...] ? [place] ? Accession #: ? [id number] ? : ? 1980 (Age: 28) ??F [...] MD PATHOLOGY HAIM PARKS Performing Organization Address City/State/[facility] Co de Phone Number [facility] [address] [place] [address] documented in this encounter Visit Diagnoses Not on filedocumented in this encounter Additional Health Concerns Infection Onset Date Last Indicated Resolved Time MRSA 10/20/2011 10/20/2011 documented as of this encounter
--- OUTSIDE RECORDS SUMMARY | 2024-06-14 02:11 | XMS_ITS | Encounter Summary ---
Author Organization [facility] Address [address] [place] [address] Care Team Providers Care Scrummaster Name Role Phone Unavailable Primary Care Provider Unavailabl e Encounter Details Date Type Department Care Team (Latest Contact Info) Description 11/04/2007 16:06 EST Hospital Encounter [address] [address] Kenton Parrish MD Discharge Disposition: Auto Discharge [...] Info) Description 12/29/2024 10:20 EST Office Visit [facility] Rheumatology & Immunology - [address] 700841 Micaela Hoff MD 111 [facility], [address] 5 [place] [address] documented as of this encounter Visit Diagnoses Not on filedocumented in this encounter
--- OUTSIDE RECORDS SUMMARY | 2024-06-14 02:11 | XMS_ITS | Encounter Summary ---
Author Organization [facility] Address [address] [place] [address] Care Team Providers Care Autopsy Pathologist Name Role Phone Ladonna Maurer Primary Care Provider Reason for Visit * Reason Onset Date Comments Other 01/14/2011 no showed appt Encounter Details Date Type Department Care Team (Late st Contact Info) Description 01/14/2011 Telephone [facility] Bariatric Surgery - [place] [address] [place] [address] Kristine Escamilla, HUANG 61 [facility] [address] [address] Other (no showed appt) Social [...] No Showed appt today with Kristine Escamilla APPLE THINNER. Call pt and left message with machine to call backand RS. documented in this encounter Plan of Treatment Upcoming Encounters Date Type Department Care Team (Late st Contact Info) Description 12/29/2024 10:20 EST Office Visit [facility] Rheumatology & Immunology - [address] [address]781 Micaela Hoff MD 111 [facility], [address] [place] [address] documented as of this encounter Visit Diagnoses Not on filedocumented in this encounter Care Teams Autopsy Pathologist Relationship Specialty Start Date End Date Ladonna Maurer PA [address] [place] [address] PCP - General 05/20/10 06/02/11 documented as of this encounter
--- OUTSIDE RECORDS SUMMARY | 2024-06-14 02:11 | XMS_ITS | Encounter Summary ---
Author Organization [facility] Address [address] [place] [address] Care Team Providers Care Optical Glass Wet Inspector Name Role Phone Ladonna Maurer Primary Care Provider [phone] Reason for Visit * Reason Comments Obesity pre op Encounter Details Date Type Department Care Team (Late st Contact Info) Description 08/29/2010 10:45 EDT Office Visit [facility] Bariatric Surgery - [place] [address] [place], [place] [phone] Skyler Blanco MD [address] [place] [address] GERD (gastroesophageal reflux disease); Morbid obesity ([facility]) Social History Tobacco Use Types Packs/Day Years [...] encounter Miscellaneous Notes * Scanned Note-Null - Loading Rack Supervisor, Scan - 08/28/2011 1109 EDT documented in this encounter Plan of Treatment Upcoming Encounters Date Type Department Care Team (Late st Contact Info) Description 12/29/2024 10:20 EST Office Visit [facility] Rheumatology & Immunology - [address] [address]97691 Micaela Hoff MD [address] [place] [address], Level 5 [place] [address] Scheduled Orders Name Type Priority Associated Diagnoses Orde r Schedule UPPER ENDOSCOPY GI Routine GERD (gastroesophageal reflux disease) Morbid obesity ([facility]) Ordered: 08/29/2010 documented as of this encounter Visit Diagnoses Diagnosis GERD (gastroesophageal reflux disease) Esophageal reflux Morbid obesity ([facility]) Morbid obesity documented in this encounter Discontinued [...] 02/06/2011 added in this encounter Care Teams Optical Glass Wet Inspector Relationship Specialty Start Date End Date Ladonna Maurer PA [address] [place] [address] PCP - General 05/20/10 06/02/11 documented as of this encounter
--- OUTSIDE RECORDS SUMMARY | 2024-06-14 02:11 | XMS_ITS | Encounter Summary ---
Author Organization [facility] Address [address] [place] [address] Care Team Providers Care Web Production Artist Name Role Phone Ladonna Maurer Primary Care Provider Encounter Details Date Type Department Care Team (Late st Contact Info) Description 02/03/2011 Abstract [facility] Cardiology - [place] [address] [place] [address] Ladonna Maurer PA [address] [place] [phone] Social History Tobacco Use Types Packs/Day Years [...] 12/29/2024 10:20 EST Office Visit [facility] Rheumatology & Immunology - [address] [phone] Micaela Hoff MD 111 [facility], [address] [place] [address] documented as of this encounter Visit Diagnoses Not on filedocumented in this encounter Care Teams Web Production Artist Relationship Specialty Start Date End Date Ladonna Maurer PA [address] [place] [address] PCP - General 05/20/10 06/02/11 documented as of this encounter
--- OUTSIDE RECORDS SUMMARY | 2024-06-14 02:11 | XMS_ITS | Encounter Summary ---
Author Organization [facility] Address [address] [place] [address] Care Team Providers Care Block Piler Name Role Phone Ladonna Maurer Primary Care Provider [phone] Encounter Details Date Type Department Care Team (Late st Contact Info) Description 12/14/2007 Results Only [facility] Obstetrics & Midwifery - [address] [phone] Makeda Lucas MD [address] [place] [address] 4 [place] [phone] Social History Tobacco Use Types Packs/Day Years [...] [facility] Rheumatology & Immunology - [address] [phone] Micaela Hoff MD [address] [place] [address] 5 [place] [phone] documented as of this encounter Procedures Procedure [...] GA S ORDERABLES [facility] [address] [place] [address] documented in this encounter Visit Diagnoses Not on filedocumented in this encounter Care Teams Block Piler Relationship Specialty Start Date End Date Ladonna Maurer PA [address] [place] [address] PCP - General 05/20/10 06/02/11 documented as of this encounter
--- OUTSIDE RECORDS SUMMARY | 2024-06-14 02:11 | XMS_ITS | Encounter Summary ---
Author Organization [facility] Address [address] [place] [address] Care Team Providers Care Manager Stone Name Role Phone Unavailable Primary Care Provider Unavailabl e Encounter Details Date Type Department Care Team (Latest Contact Info) Description 01/06/2008 15:48 EST Hospital Encounter [address] [address] Kenton Parrish MD Discharge Disposition: Auto Discharge [...] [facility] Rheumatology & Immunology - [address] 254331 Micaela Hoff MD 111 [facility], [address] [place] [phone] documented as of this encounter Visit Diagnoses Not on filedocumented in this encounter
--- OUTSIDE RECORDS SUMMARY | 2024-06-14 02:11 | XMS_ITS | Encounter Summary ---
Author Organization [facility] Address [address] [place] [address] Care Team Providers Care Row Boss Hoeing Name Role Phone Unavailable Primary Care Provider Unavailabl e Encounter Details Date Type Department Care Team (Latest Contact Info) Description 02/22/2008 14:29 EDT Hospital Encounter [address] [address] Shanique Eagle MD [address] [place] [address] Discharge Disposition: Auto Discharge Social History Tobacco [...] Visit [facility] Rheumatology & Immunology - [address] 841151 Micaela Hoff MD [address] [place] [address], [address] [place] [phone] documented as of this encounter Procedures Procedure Name Priority Date/Time Associated Diagnosis Comments SENIOR CARE FOLLOW-UP 02/22/2008 16:21 EDT documented in this encounter Results * SENIOR CARE FOLLOW-UP (02/22/2008 16:21 EDT) Anatomical Region Laterality Modality Other 02/22/2008 16:2 1 EDT Narrative 04/15/2009 13:51 EDT FOLLOW UP,64284/GROWTH/UTERINE SIZE/DATES MISMATCH Please refer to the separate [facility] report. ??Contact Maternal Medicine. Procedure Note Kenton Parrish MD - 04/15/2009 FOLLOW UP,45593/GROWTH/UTERINE SIZE/DATES MISMATCH Please refer to the separate [facility] report. Contact Maternal Medicine. Magda Tejada MD IMG [facility] ORDERABLE S documented in this encounter Visit Diagnoses Not on filedocumented in this encounter
--- OUTSIDE RECORDS SUMMARY | 2024-06-14 02:11 | XMS_ITS | Encounter Summary ---
Author Organization [facility] Address [address] [place] [address] Care Team Providers Care Chute Boss Name Role Phone Ladonna Maurer Primary Care Provider [phone] Reason for Visit * Reason Comments New Patient Visit ekg and holter done Irregular Heart Beat started in November Dizziness a couple times per w modoc Fatigue Encounter Details Date Type Department Care Team (Late Contact Info) Description 02/06/2011 13:20 EDT Office Visit [facility] Cardiology - [place] [address] [place] [address] Jose Manuel Benjamin MD 111 [facility], Level 1 [place] [address] Palpitations; Murmur; Atypical chest pain [...] Info) Description 12/29/2024 10:20 EST Office Visit [facility] Rheumatology & Immunology - [address] [address] Micaela Hoff MD [address] [place] [address], [address] [place] [phone] documented as of this encounter Procedures Procedure Name Priority Date/Time Associated Diagnosis Comments ECHOCARDIOGRAM Routine 02/11/2011 11:18 EDT Murmur Palpitations Atypical chest pain documented in this encounter Results * ECHOCARDIOGRAM (02/11/2011 11:18 EDT) Anatomical Region Laterality Modality Other 02/11/2011 11:1 8 EDT Narrative 02/11/2011 12:03 EDT Interpreting Group: [facility] [address] [place] [address] *STUDY CONCLUSIONS* SUMMARY - ??Overall left ventricular [...] Manuel Benjamin MD Fellow: ?Nawaf Ma MD Tube Filler: ?? Genoveva Jackson [facility] Ordering MD: ?? Jose Manuel eBnjamin MD Referring MD: ??Ladonna Maurer Attending MD: ??Jose Manuel Benjamin MD Admitting MD: ??Jose Manuel Benjamin MD *INDICATIONS AND HISTORY* DIAGNOSES SUPPORTING MEDICAL NECESSITY: 786.5 Chest pain *PROCEDURE DATA* PROCEDURE INFORMATION: A transthoracic complete 2D study was performed. Additional evaluation included M-mode, complete spectral Doppler, and color Doppler. This was a routine echocardiographic study. This study was interpreted by [facility] at [facility]. The procedure was started at 07:30:39. The [...] 11-Feb-2011 12:00:58 Procedure Note 02/11/2011 Interpreting Group: [facility] [address] [place] [address] *STUDY CONCLUSIONS* SUMMARY - Overall left ventricular [...] Manuel Benjamin MD Fellow: Nawaf Ma MD Tube Filler: Genoveva Jackson [facility] Ordering MD: Jose Manuel Benjamin MD Referring MD: Ladonna Maurer Attending MD: Jose Manuel Benjamin MD Admitting MD: Jose Manuel Benjamin MD *INDICATIONS AND HISTORY* DIAGNOSES SUPPORTING MEDICAL NECESSITY: 786.5 Chest pain *PROCEDURE DATA* PROCEDURE INFORMATION: A transthoracic complete 2D study was performed. Additional evaluation included M-mode, complete spectral Doppler, and color Doppler. This wasa routine echocardiographic study. [facility]. The procedure was started at 07:30:39. The [...] NEW PATIENT EVALUATION - 02/06/2011 Ladonna Maurer [address] [address] Dear Ms Maurer: Thank you for requesting [...] day. 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 She quit smoking several months [...] distress. Her weight is 237 pounds. Blood qjlumabs232/80 and a pulse of 69. She has [...] Manuel Benjamin MD 02/07/2011 11:12 Jose Manuel Benjamin MD - Jose Manuel Benjamin MD - [facility] Job ID: SM Doc ID: [id number] Ext Doc ID: [id number] cc: AUSTIN Silva documented in this encounter Discontinued Medications Medication Sig Discontinue Reason Start Date End Da te mometasone (NASONEX) 50 mcg/Actuation nasal spray 2 Sprays by Nasal route daily. Patient Stopped Taking 02/06/2011 documented as of this encounter Care Teams Chute Boss Relationship Specialty Start Date End Date Ladonna Maurer PA [address] [place] [address] PCP - General 05/20/10 06/02/11 documented as of this encounter
--- OUTSIDE RECORDS SUMMARY | 2024-06-14 02:12 | XMS_ITS | Encounter Summary ---
Author Organization [facility] [place] [address] Care Team Providers Care Applications Support Specialist Name Role Phone Anuja Cai APRN Primary Care Provider [phone] Encounter Details Date Type Department Care Team ([facility] st Contact Info) Description 02/16/2024 11:00 AM EDT Office [place] [phone] Britt Zurita MD [facility] [place] [address] Polyarthralgia Social History Tobacco Use Types Packs/Day [...] was 40 minutes. Britt Zurita [place], [address] documented in this encounter Plan of Treatment Upcoming Encounters Date Type Department Care Team (Late st Contact Info) Description 08/17/2024 12:00 PM EDT Office [place] [address] Britt Zurita MD [facility] [place] [address] documented as of this encounter Results * [...] who have questions please contact the health special needs child caregiver that requested your imaging first. ? Narrative [...] sites documented in this encounter Care Teams Applications Support Specialist Relationship Specialty Start Date End Date Anuja Cai APRN [address] [place] [address] PCP - General Internal Medicine 07/25/21 documented as of this encounter
--- OUTSIDE RECORDS SUMMARY | 2024-06-14 02:12 | XMS_ITS | Encounter Summary ---
Author Organization [facility] Address [address] [place] [address] Care Team Providers Care Veterinary Virus Serum Inspector Name Role Phone Unavailable Primary Care Provider Unavailabl e Encounter Details Date Type Department Care Team (Latest Contact Info) Description 01/25/2006 2:33 EST - 01/25/2006 11:59 EST Hospital Encounter [facility] Emergency Department - [address] [phone] Emergency, MD Fede Discharge Disposition: Home or [...] Info) Description 12/29/2024 10:20 EST Office Visit [facility] Rheumatology & Immunology - [address] 2835[address] Micaela Hoff MD [address] [place] [address], [address] [place] [address] documented as of this encounter Visit Diagnoses Not on filedocumented in this encounter
--- OUTSIDE RECORDS SUMMARY | 2024-06-14 02:12 | XMS_ITS | Encounter Summary ---
Author Organization [facility] Address [address] [place] [address] Care Team Providers Care Sheep Herder Name Role Phone Unavailable Primary Care Provider Unavailabl e Encounter Details Date Type Department Care Team (Late st Contact Info) Description 11/18/2004 13:04 EST Hospital Encounter [facility] - Other [address] [place], [place] [address] Gustavo Smith MD [address] [phone] Social History Tobacco Use Types Packs/Day Years [...] [facility] Rheumatology & Immunology - [facility] [address] [place], [place] [phone] Micaela Hoff MD 111 [facility], [facility], Level [address] [place] [address] documented as of this encounter Visit Diagnoses Not on filedocumented in this encounter Additional Health Concerns Infection Onset Date Last Indicated Resolved Time MRSA 10/20/2011 10/20/2011 documented as of this encounter
--- OUTSIDE RECORDS SUMMARY | 2024-06-14 02:12 | XMS_ITS | Encounter Summary ---
[place] [address] Care Team Providers Care Informatics Nurse Name Role Phone Trell Anuja Barbara ENCINAS Primary Care Provider [phone] Reason for Referral * Diagnostic Test (Routine) - Closed Specialty Diagnoses / Procedures Referred By Contac t Referred To Contact Radiology Diagnoses Opacity of lung on imaging study Procedures CT Chest wo Contrast (Generic) Britt Zurita MD [facility] [place] [address] [facility] [place] [address] Referral ID Status Reason Start Date Expiration Date V isits Requested Visits Authorized [id number] Closed Specialty Service Requested 02/17/2024 08/18/2025 1 1 Encounter Details Date Type Department Care Team (Late st Contact Info) Description 02/17/2024 Orders [place] [address] Britt Zurita MD [facility] [place] [address] Opacity of lung on imaging [...] 12:00 PM EDT Office [place] [address] Britt Zurita MD [facility] [place] [address] documented as of this encounter Results * CT Chest wo Contrast (Generic) (02/19/2024 10:43 AM EDT) [employer] WORKSTATION ID [id number] RAD Anatomical Region Laterality Modality Chest Computed [...] who have questions please contact the health child care centre director that requested your imaging first. ? Narrative [...] patients who have questions please contactthe health child care centre director that requested your imaging first. Electronically signed by: Rebecca Escalera MD, [facility] ([phone]), at 02/21/2024 6:30 AM Britt Zurita MD IMG CT ORDERABLES documented in this encounter Visit Diagnoses Diagnosis Opacity of lung on imaging study Opacity of lung on imaging study documented in this encounter Care Teams Informatics Nurse Relationship Specialty Start Date End Date Anuja Cai, [employer] [address] [place] [address] PCP - General Internal Medicine 07/25/21 documented as of this encounter
--- OUTSIDE RECORDS SUMMARY | 2024-06-14 02:12 | XMS_ITS | Encounter Summary ---
Author Organization [facility] Address [address] [place] [address] Care Team Providers Care Supervisor Body Assembly Name Role Phone Unavailable Primary Care Provider Unavailabl e Encounter Details Date Type Department Care Team (Late st Contact Info) Description 03/06/2004 17:51 EDT Hospital Encounter [facility] - Other [address] [place], [place] [phone] Gustavo Smith MD [address] [phone] Social History Tobacco Use Types Packs/Day Years [...] Info) Description 12/29/2024 10:20 EST Office Visit [facility] Rheumatology & Immunology - Main [place] [address] [place], [place] [phone] Micaela Hoff MD 111 [facility], [facility], [address] [place] [address] (work) documented as of this encounter Visit Diagnoses Not on filedocumented in this encounter Additional Health Concerns Infection Onset Date Last Indicated Resolved Time MRSA 10/20/2011 10/20/2011 documented as of this encounter
--- OUTSIDE RECORDS SUMMARY | 2024-06-14 02:12 | XMS_ITS | Encounter Summary ---
Author Organization [facility] Address [facility] [place] [address] Care Team Providers Care Circulation Clerk Name Role Phone Anuja Cai APRN Primary Care Provider [phone] Encounter Details Date Type Department Care Team [...] 12:00 PM EDT Office [place] [address] Britt Zurita MD [facility] [address] documented as of this encounter Visit Diagnoses Not on filedocumented in this encounter Care Teams Circulation Clerk Relationship Specialty Start Date End Date Anuja Cai APRN [address] [place], [place] [address] PCP - General Internal Medicine 07/25/21 documented as of this encounter
--- OUTSIDE RECORDS SUMMARY | 2024-06-14 02:12 | XMS_ITS | Encounter Summary ---
Author Organization [facility] Address [address] [place] [address] Care Team Providers Care Process Treater Name Role Phone Unavailable Primary Care Provider Unavailabl e Encounter Details Date Type Department Care Team (Latest Contact Info) Description 02/23/2006 17:24 EDT Hospital Encounter [facility] Emergency Department - [address] [address] Emergency, MD Fede Discharge Disposition: Home or [...] [facility] - [facility] [address] [place], [place] [address] Micaela Hoff MD 111 [facility], [address] [place] [phone] documented as of this encounter Visit Diagnoses Not on filedocumented in this encounter
--- OUTSIDE RECORDS SUMMARY | 2024-06-14 02:12 | XMS_ITS | Encounter Summary ---
Author Organization [facility] Address [address] [place] [address] Care Team Providers Care Crystalizer Tender Name Role Phone Ladonna Maurer Primary Care Provider [phone] Encounter Details Date Type Department Care Team (Late st Contact Info) Description 03/06/2004 Results Only [facility] Family Medicine [address] [address] Gustavo Smith MD [address] [phone] Social History Tobacco Use Types Packs/Day Years Used Date Smoking Tobacco: Never Assessed Sex and Gender Information Value Date Recorded Sex Assigned at Not on file Gender Identity Not on file Sexual Orientation Not on file documented as of this encounter Plan of Treatment Upcoming Encounters Date Type Department Care Team (Late st Contact Info) Description 12/29/2024 10:20 EST Office Visit [facility] Rheumatology & Immunology - [facility] [address] [place], [place] [phone] Micaela Hoff MD 111 [facility], [address] [place] [address] documented as of this encounter [...] GA S ORDERABLES [facility] [address] [place] [address] * HEMAGRAM AND DIFFERENTIAL (03/06/2004 17:29 EDT) Pathologist [facility] WBC 7.83 4.0 - 12.4 K/cmm BURGESS [...] DNA PROBE ORDERABLES [facility] [address] [place] [address] documented in this encounter Visit Diagnoses Not on filedocumented in this encounter Care Teams Crystalizer Tender Relationship Specialty Start Date End Date Ladonna Maurer PA [address] [place] [address] PCP - General 05/20/10 06/02/11 documented as of this encounter
--- OUTSIDE RECORDS SUMMARY | 2024-06-14 02:12 | XMS_ITS | Encounter Summary ---
Author Organization [facility] Address [address] [place] [address] Care Team Providers Care Modern Dancer Name Role Phone Unavailable Primary Care Provider Unavailabl e Encounter Details Date Type Department Care Team (Latest Contact Info) Description 02/06/2004 15:21 EDT Hospital Encounter [facility] - Other [address] [place] [address] Marixa Barreto MD Discharge Disposition: Auto Discharge [...] [facility] [address] [place], [place] [address] Micaela Hoff MD [address] [facility], [address] [place] [phone] documented as of this encounter Visit Diagnoses Not on filedocumented in this encounter
--- OUTSIDE RECORDS SUMMARY | 2024-06-14 02:12 | XMS_ITS | Encounter Summary ---
Author Organization [facility] Address [address] [place] [address] Care Team Providers Care Shelf Drier Operator Name Role Phone Ladonna Maurer Primary Care Provider Encounter Details Date Type Department Care Team (Late st Contact Info) Description 02/11/2006 Results Only [facility] - Maple conversion [address] [place] [address] Robin Robb MD [address] [place] [phone] Social History Tobacco Use Types Packs/Day Years [...] [facility] [address] [place], [place] [address] Micaela Hoff MD 111 [facility], [address] 5 [place] [address] documented as of this [...] ? TERI CROWE ? Accession #: ? [id number] : ? 1980 (Age: 25) ??F ?Collect Date: ? 02/11/2006 Location: ? [facility] ? Receive Date: ? 02/13/2006 Provider: ?TARIK ROBB MD Copy to: ? Specimen/Source: ?ThinPrep Pap Test, Cervix/Endocervix, processed on [employer] ThinPrep Imaging System, with manual evaluation Last [...] MD PATHOLOGY ORD ERABLES [facility] T[facility] [address] [place] [address] documented in this encounter Visit Diagnoses Not on filedocumented in this encounter Care Teams Shelf Drier Operator Relationship Specialty Start Date End Date Ladonna Maurer PA [address] [place] [address] PCP - General 05/20/10 06/02/11 documented as of this encounter
--- OUTSIDE RECORDS SUMMARY | 2024-06-14 02:12 | XMS_ITS | Encounter Summary ---
Author Organization [facility] [place] [address] Care Team Providers Care Human Services Assistant Name Role Phone Anuja Cai HUANG Primary Care Provider [phone] Encounter Details Date Type Department Care Team (Late st Contact Info) Description 02/05/2024 Ancillary Procedure [place] [phone] Alphonso Vasques MD [facility] [place] [address] Social History Tobacco Use Types Packs/Day Years [...] 12:00 PM EDT Office Visit [place] [address] Britt Zurita MD [facility] RHEUMATOLOGY [place], [place] [phone] documented as of this encounter Procedures Procedure [...] LIBRARY ORD ERABLES Performing Organization Address City/State/[facility] Co de Phone Number [place], [place] documented in this encounter Visit Diagnoses Not on filedocumented in this encounter Care Teams Human Services Assistant Relationship Specialty Start Date End Date Anuja Cai APRN [address] [facility] [place] [address] PCP - General Internal Medicine 07/25/21 documented as of this encounter
--- OUTSIDE RECORDS SUMMARY | 2024-06-14 02:12 | XMS_ITS | Encounter Summary ---
Author Organization [facility] Address [facility] [place] [address] Care Team Providers Care Certified Phlebotomist Name Role Phone Anuja Cai APRN Primary Care Provider [phone] Encounter Details Date Type Department Care Team [...] 12:00 PM EDT Office [place] [address] Britt Zurita MD [facility] [place] [address] documented as of this encounter Visit Diagnoses Not on filedocumented in this encounter Care Teams Certified Phlebotomist Relationship Specialty Start Date End Date Anuja Cai APRN [address] [place] [address] PCP - General Internal Medicine 07/25/21 documented as of this encounter
--- OUTSIDE RECORDS SUMMARY | 2024-06-14 02:12 | XMS_ITS | Encounter Summary ---
Author Organization [facility] Address [address] [place] [address] Care Team Providers Care Product Development Manager Name Role Phone Ladonna Maurer Primary Care Provider [phone] Encounter Details Date Type Department Care Team (Late st Contact Info) Description 11/18/2004 Results Only [facility] Family Medicine [address] [address] Valeria Smith MD [address] [phone] Social History Tobacco Use Types Packs/Day Years [...] [facility] - [address] [phone] Micaela Hoff MD 111 [facility], [address] [place] [address] documented as of this encounter [...] ? TERI CROWE ? Accession #: ? [id number] : ? 1980 (Age: 24) ??F ?Collect [...] Smith MD PATHOLOGY ORDERABLES JENIF[facility] TIJERINA [address] [place] [address] documented in this encounter Visit Diagnoses Not on filedocumented in this encounter Care Teams Product Development Manager Relationship Specialty Start Date End Date Ladonna Maurer PA [address] [place] [address] PCP - General 05/20/10 06/02/11 documented as of this encounter
--- OUTSIDE RECORDS SUMMARY | 2024-06-14 02:12 | XMS_ITS | Encounter Summary ---
Author Organization [facility] Address [address] [place] [address] Care Team Providers Care Windows Application Administrator Name Role Phone Unavailable Primary Care Provider Unavailabl e Encounter Details Date Type Department Care Team (Latest Contact Info) Description 01/18/2001 15:59 EST Hospital Encounter [facility] - Other [address] [place] [address] Georgiana Roberto MD [address] [place] [phone] Unknown, Provider, Discharge Disposition: Auto Discharge Social [...] Description 12/29/2024 10:20 EST Office Visit [facility] Rheumatology & Immunology - [facility] [address] [place], [place] [address] Micaela Hoff MD 111 [facility], [address] [place] [phone] documented as of this encounter Procedures Procedure [...] ? TERI LAKE ? Accession #: ? [id number] : ? 1980 (Age: 20) ??F ?Collect Date: ? 01/18/2001 Location: ? [facility] ? Receive Date: ? 01/25/2001 Provider: ?GEORGIANA ROBERTO MD Copy to: ? [facility] [place] [facility] ? [address] ? [place] [address] ? Specimen/Source: ?ThinPrep Pap Test, Cervix/Endocervix Last [...] Zhu MD PATHOLOGY ORDERABLES Performing Organization Address City/State/[facility] Co de Phone Number [facility] [address] [place] [address] documented in this encounter Visit Diagnoses Not on filedocumented in this encounter
--- OUTSIDE RECORDS SUMMARY | 2024-06-14 02:12 | XMS_ITS | Encounter Summary ---
Author Organization [facility] Address [address] [place] [address] Care Team Providers Care Workers Compensation Claims Assistant Name Role Phone Ladonna Maurer Primary Care Provider [phone] Encounter Details Date Type Department Care Team (Late st Contact Info) Description 12/09/2004 Results Only [facility] - Maple conversion [address] [place] [id number] Laurel Blount MD [address] [place] [address] Social History Tobacco Use Types [...] Description 12/29/2024 10:20 EST Office Visit [facility] Rheumatology & Immunology - [address] [phone] Micaela Hoff MD 111 [facility], [address] [place] [address] documented as of this encounter Procedures Procedure Name Priority Date/Time Associated Diagnosis Comments MONO-TEST Routine 12/09/2004 16:06 EST COMPLETE BLOOD COUNT Routine 12/09/2004 16:06 EST TSH Routine 12/09/2004 16:06 EST documented in this encounter Results * TSH (12/09/2004 16:06 EST) TSH 1.63 0.35 - 5.50 uIU/ml [facility] 12/09/2004 16:0 6 EST 12/09/2004 19:43 EST Laurel Blonut MD CHEMISTRY & BLOO D GAS ORDERABLES Performing Organization Address [facility] Co de Phone Number [facility] [address] [place] [address] * MONO-TEST (12/09/2004 16:06 EST) Pathologist [facility] [place]-Test Neg NEG [facility] 12/09/2004 16:0 6 EST 12/09/2004 19:43 EST Laurel Blount MD CHEMISTRY & BLOO D GAS ORDERABLES Performing Organization Address [facility] de Phone Number [facility] [address] [place] [address] * HEMAGRAM (12/09/2004 16:06 EST) WBC 7.02 [...] HEMATOLOGY & PF4 ORDERABLES Performing Organization Address City/State/[facility] Co de Phone Number [facility] [address] [place] [address] documented in this encounter Visit Diagnoses Not on filedocumented in this encounter Care Teams Workers Compensation Claims Assistant Relationship Specialty Start Date End Date Ladonna Maurer PA [address] [place] [address] PCP - General 05/20/10 06/02/11 documented as of this encounter
--- OUTSIDE RECORDS SUMMARY | 2024-06-14 02:12 | XMS_ITS | Encounter Summary ---
Author Organization [facility] Address [address] [place] [address] Care Team Providers Care Emissions Testing And Repair Technician Name Role Phone Ladonna Maurer Primary Care Provider [phone] Encounter Details Date Type Department Care Team (Late st Contact Info) Description 01/09/2005 Results Only [facility] Family Medicine [address] [id number] Gustavo Smith MD [address] [phone] Social History Tobacco Use Types Packs/Day Years [...] [facility] - [address] [phone] Micaela Hoff MD 111 [facility], [address] [place] [address] documented as of this encounter [...] FOR S Q LOAD Performing Organization Address [facility] de Phone Number [facility] [address] [place] [address] * LIPID PROFILE (INCLUDES CHOLESTEROL, TRIGLYCERIDES, HDL, LDL) (01/09/2005 9:39 EST) Cholesterol 130 mg/dl [facility] Comment: Desirable:<200 Borderline:200-239 High Risk:>sq=801 Triglycerides 59 35 - 160 mg/dl [facility] HDL 40 mg/dl [facility] Comment: Highly Desirable:>60 Desirable:35-60 High Risk:<35 LDL, Calculated 78 mg/dl [facility] Comment: Desirable:<130 Borderline:130-159 High Risk:>iw=877 Chol/HDL Ratio 3.3 [facility] Fasting? No [facility] 01/09/2005 9:39 EST 01/09/2005 16:52 EST Gustavo Smith MD CHEMISTRY & BLOOD GA S ORDERABLES Performing Organization Address [facility] de Phone Number [facility] [address] [place] [address] * HIV ANTIBODY (01/09/2005 9:39 EST) HIV 1/2 Antibody NONREACT. NR [facility] 01/09/2005 9:39 EST 01/09/2005 16:52 EST Gustavo Smith MD IMMUNOLOGY AND SEROL OGY ORDERABLES Performing Organization Address [facility] de Phone Number [facility] [address] [place] [address] * HEPATITIS C ANTIBODY (01/09/2005 9:39 EST) Hepatitis C Ab Neg [facility] 01/09/2005 9:39 EST 01/09/2005 16:52 EST Gustavo Smith MD CHEMISTRY & BLOOD GA S ORDERABLES Performing Organization Address [facility] de Phone Number [facility] [address] [place] [address] * HEPATITIS B SURFACE ANTIBODY (01/09/2005 9:39 EST) Hepatitis B Surface Ab Pos [facility] 01/09/2005 9:39 EST 01/09/2005 16:52 EST Gustavo Smith MD CHEMISTRY & BLOOD GA S ORDERABLES Performing Organization Address [facility] de Phone Number [facility] [address] [place] [address] documented in this encounter Visit Diagnoses Not on filedocumented in this encounter Care Teams Emissions Testing And Repair Technician Relationship Specialty Start Date End Date Ladonna Maurer PA [address] [place] [address] PCP - General 05/20/10 06/02/11 documented as of this encounter
--- OUTSIDE RECORDS SUMMARY | 2024-06-14 02:12 | XMS_ITS | Encounter Summary ---
Author Organization [facility] Address [address] [place] [address] Care Team Providers Care Jewelry Inspector Name Role Phone Unavailable Primary Care Provider Unavailabl e Encounter Details Date Type Department Care Team (Latest Contact Info) Description 02/18/2006 14:59 EDT Hospital Encounter [facility] - Maple conversion [address] [place] [address] Marcelle Harrison MD [address] [place] [address] Discharge Disposition: Auto Discharge Social History Tobacco [...] Info) Description 12/29/2024 10:20 EST Office Visit [facility] Rheumatology & Immunology - [facility] [address] [place], [place] [address] Micaela Hoff MD 111 [facility], [address] [place] [phone] documented as of this encounter Visit Diagnoses Not on filedocumented in this encounter
--- OUTSIDE RECORDS SUMMARY | 2024-06-14 02:12 | XMS_ITS | Encounter Summary ---
Author Organization [facility] Address [address] [place] [address] Care Team Providers Care Central Supply Tech Name Role Phone Unavailable Primary Care Provider Unavailabl e Encounter Details Date Type Department Care Team (Late st Contact Info) Description 01/25/2006 Office Visit [facility] - Maple conversion [address] [place] [address] Bethel Harding MD Social History Tobacco Use [...] 8/10. The patient has had nausea. Treatment SAFETY TECHNICIAN: None. PAST HX: Negative. Last normal menstrual period was 4 weeks ago - SOCIAL HX: Smoker. Alcohol use. Arrived by private vehicle and accompanied by family. Historian: patient. --234 Melodie Gamez R.N. NURSING PROGRESS NOTES Progress Patient gowned. Call light placed in reach. Bed placed in lowest position. Brakes of bed on. --246Melodie aGmez R.N. Clean catch urine collected. Urine test [...] left the Emergency Department accompanied by a cloud engineer (before completion of treatment). The patient appears [...] [facility] - [address] [address] Micaela Hoff MD [address] [place] [address], Level [address] [place] [address] documented as of this encounter Visit Diagnoses Not on filedocumented in this encounter
--- OUTSIDE RECORDS SUMMARY | 2024-06-14 02:12 | XMS_ITS | Encounter Summary ---
Author Organization [facility] Address [facility] [place] [address] Care Team Providers Care Head Sawyer Name Role Phone TrellAnuja APRN Primary Care Provider [phone] Encounter Details Date Type Department Care Team (Latest Contact Info) Description 02/16/2024 11:32 AM EDT - 02/16/2024 11:59 PM EDT Hospital Encounter XRay at [address] [place] [address] Britt Zurita MD [facility] [place] [address] Polyarthralgia Discharge Disposition: Home Social History Tobacco [...] 02/16/24 07/29/2021 fluticasone propionate (Flonase) 50 mcg/actuation [place], Suspension SPRAY ONE SPRAY IN EACH NOSTRIL [...] 12:00 PM EDT Office [place] [address] Britt Zurita MD [facility] [place] [address] documented as of this encounter Procedures Procedure [...] who have questions please contact the health home care manager rn that requested your imaging first. ? Electronically signed by: Rebecca Escalera MD, [facility] ([phone]), at 02/16/2024 3:49 PM Narrative 02/16/2024 3:49 [...] sites documented in this encounter Care Teams Head Sawyer Relationship Specialty Start Date End Date Anuja Cai, ENTRY LEVEL ACCOUNTING CLERK [address] [place] [address] PCP - General Internal Medicine 07/25/21 documented as of this encounter
--- OUTSIDE RECORDS SUMMARY | 2024-06-14 02:12 | XMS_ITS | Encounter Summary ---
Author Organization [facility] Address [address] [place] [address] Care Team Providers Care Math Tutor Name Role Phone Unavailable Primary Care Provider Unavailabl e Encounter Details Date Type Department Care Team (Latest Contact Info) Description 05/03/2004 10:53 EDT - 05/03/2004 11:59 EDT Hospital Encounter [facility] - Other [address] [place] [address] Yomi Valdes MD Discharge Disposition: Auto Discharge [...] [facility] Immunology - [facility] [address] [place], [place] [address] Micaela Hoff MD 111 [facility], [address] [place] [phone] documented as of this encounter Procedures Procedure [...] ? TERI CROWE ? Accession #: ? [id number] : ? 1980 (Age: 24) ??F ?Collect [...] Valdes MD PATHOLOGY ORDERABLES [facility] T[facility]ER[facility] [address] [place] [address] documented in this encounter Visit Diagnoses Not on filedocumented in this encounter
--- OUTSIDE RECORDS SUMMARY | 2024-06-14 02:12 | XMS_ITS | Encounter Summary ---
Author Organization [facility] Address [address] [place] [address] Care Team Providers Care Psychiatric Cns Name Role Phone Unavailable Primary Care Provider Unavailabl e Encounter Details Date Type Department Care Team (Late st Contact Info) Description 04/06/2006 10:30 EDT Hospital Encounter [facility] - Maple conversion [address] [place], [place] [address] Justus Bond MD [address] [place] [address] [place] [phone] Social History Tobacco Use Types Packs/Day Years [...] System [facility] Rheumatology & Immunology - [facility] [address] [place], [place] [phone] Micaela Hoff MD 111 [facility], [address] [place] [phone] documented as of this encounter Visit Diagnoses Not on filedocumented in this encounter Additional Health Concerns Infection Onset Date Last Indicated Resolved Time MRSA 10/20/2011 10/20/2011 documented as of this encounter
--- OUTSIDE RECORDS SUMMARY | 2024-06-14 02:12 | XMS_ITS | Encounter Summary ---
Author Organization [facility] Address [facility] [place] [address] Care Team Providers Care Floral Merchandiser Name Role Phone Anuja Cai APRN Primary Care Provider [phone] Encounter Details Date Type Department Care Team [...] 12:00 PM EDT Office [place] [address] Britt Zurita MD [facility] [place] [address] documented as of this encounter Visit Diagnoses Not on filedocumented in this encounter Care Teams Floral Merchandiser Relationship Specialty Start Date End Date Anuja Cai APRN [address] [place] [address] PCP - General Internal Medicine 07/25/21 documented as of this encounter
--- OUTSIDE RECORDS SUMMARY | 2024-06-14 02:12 | XMS_ITS | Encounter Summary ---
Author Organization [facility] Address [address] [place] [address] Care Team Providers Care Clinical Social Work Aide Name Role Phone Unavailable Primary Care Provider Unavailabl e Encounter Details Date Type Department Care Team (Late st Contact Info) Description 11/19/2004 16:10 EST Hospital Encounter [facility] - Other [address] [place], [place] [address] Gustavo Smith MD [address] [phone] Social History Tobacco Use Types Packs/Day Years [...] [facility] - [facility] [address] [place], [place] [phone] Micaela Hoff MD 111 [facility], [address] [place] [address] documented as of this encounter Visit Diagnoses Not on filedocumented in this encounter Additional Health Concerns Infection Onset Date Last Indicated Resolved Time MRSA 10/20/2011 10/20/2011 documented as of this encounter
--- OUTSIDE RECORDS SUMMARY | 2024-06-14 02:12 | XMS_ITS | Encounter Summary ---
Author Organization [facility] Address [address] [place] [address] Care Team Providers Care Paunch Trimmer Name Role Phone Ladonna Maurer Primary Care Provider [phone] Encounter Details Date Type Department Care Team (Late st Contact Info) Description 05/31/2004 Results Only [facility] - Maple conversion [address] [place] [address] Rehan Overton MD [address] [phone] Social History Tobacco Use Types Packs/Day Years Used Date Smoking Tobacco: Never Assessed Sex and Gender Information Value Date Recorded Sex Assigned at Not on file Gender Identity Not on file Sexual Orientation Not on file documented as of this encounter Plan of Treatment Upcoming Encounters Date Type Department Care Team (Late Contact Info) Description 12/29/2024 10:20 EST Office Visit [facility] Rheumatology & Immunology - [facility] [address] [place], [place] [address] Micaela Hoff MD 111 [facility], [address] [place] [phone] documented as of this encounter Procedures Procedure [...] BLOOD GA S ORDERABLES Performing Organization Address City/State/[facility] Co de Phone Number [facility] [address] [place] [address] documented in this encounter Visit Diagnoses Not on filedocumented in this encounter Care Teams Paunch Trimmer Relationship Specialty Start Date End Date Ladonna Maurer PA [address] [place] [address] PCP - General 05/20/10 06/02/11 documented as of this encounter
--- OUTSIDE RECORDS SUMMARY | 2024-06-14 02:12 | XMS_ITS | Encounter Summary ---
Author Organization [facility] Address [address] [place] [address] Care Team Providers Care Gin Clerk Name Role Phone Unavailable Primary Care Provider Unavailabl e Encounter Details Date Type Department Care Team (Latest Contact Info) Description 02/11/2006 13:30 EDT Hospital Encounter [facility] - Maple conversion [address] [place] [address] Stephany Payne MD [address] [place] [phone] Robin Pena MD [address] [place] [phone] Discharge Disposition: Auto Discharge Social History [...] 10:20 EST Office Visit [facility] Rheumatology & Immunology - [address] [address] Micaela Hoff MD 111 [facility] 5 [place] [phone] documented as of this encounter Procedures Procedure [...] AN D SEROLOGY ORDERABLES Performing Organization Address [facility] de Phone Number [facility] [address] [place] [address] * HIV ANTIBODY (YONATHAN) (02/11/2006 15:21 EDT) HIV 1/2 Antibody NONREACT. NR [facility] 02/11/2006 15:2 1 EDT 02/11/2006 20:14 EDT Robin Pena MD IMMUNOLOGY AN D SEROLOGY ORDERABLES Performing Organization Address [facility] de Phone Number [facility] [address] [place] [address] * HEPATITIS C ANTIBODY (02/11/2006 15:21 EDT) Hepatitis C Ab Neg [facility] 02/11/2006 15:2 1 EDT 02/11/2006 20:14 EDT Robin Pena MD CHEMISTRY & B LOOD GAS ORDERABLES Performing Organization Address [facility] Co de Phone Number [facility] [address] [place] [address] * N. GONORRHOEAE AMPLIFIED PROBE (02/11/2006 15:21 EDT) Result No Neisseria gonorrhoeae DNA detected by grain blender mediated amplification. [facility] Report Status Final [id number] [facility] Specimen Description Cervix [facility] 02/11/2006 15:2 1 EDT 02/12/2006 7:00 EDT Robin Pena MD MICROBIOLOGY - GENERAL ORDERABLES Performing Organization Address [facility] de Phone Number [facility] [address] [place] [address] * CHLAMYDIA TRACHOMATIS AMPLIFIED PROBE (02/11/2006 15:21 EDT) Specimen Description Cervix [facility] Result No Chlamydia trachomatis DNA detected by grain blender mediated amplification. [facility] Report Status Final [id number] [facility] 02/11/2006 15:2 1 EDT 02/12/2006 7:00 EDT Robin Pena MD MICROBIOLOGY - GENERAL ORDERABLES Performing Organization Address [facility] Co de Phone Number [facility] [address] [place] [address] documented in this encounter Visit Diagnoses Not on filedocumented in this encounter
--- OUTSIDE RECORDS SUMMARY | 2024-06-14 02:12 | XMS_ITS | Encounter Summary ---
Author Organization [facility] Address [address] [place] [address] Care Team Providers Care Computer Applications Engineer Name Role Phone Ladonna Maurer Primary Care Provider Encounter Details Date Type Department Care Team (Late st Contact Info) Description 05/17/[address] [facility] - Maple conversion [address] [place] [address] Unknown, Provider, Social History Tobacco Use Types [...] [facility] Rheumatology & Immunology - [address] [address] Micaela Hoff MD 111 [facility], Level 5 [place] [phone] documented as of this encounter Procedures Procedure Name Priority Date/Time Associated Diagnosis Comments CHLAMYDIA/GC AMPLIFIED PROBE Routine 05/17/2007 10:30 EDT CYTOPATHOLOGY Routine 05/17/2007 0:00 EDT documented in this encounter Results * CHLAMYDIA/GC AMPLIFIED PROBE (05/17/2007 10:30 EDT) Specimen Description Cervix [facility] Result No Chlamydia trachomatis or Neisseria gonorrhoeae DNA detected by fittings finisher mediated amplification. [facility] Report Status Final [id number] [facility] 05/17/2007 10:3 0 EDT 05/18/2007 15:30 EDT Provider Unknown MD MICROBIOLOGY - GENER AL ORDERABLES [facility] [address] [place] [address] * CYTOPATHOLOGY (05/17/2007 0:00 EDT) Pathology Report: CYTOPATHOLOGY REPORT Reports generated via electronic interface contain original data; however they are lacking the format of the original report. Caution should be taken when reading/interpreti ng unformatted reports. Name: ? TERI CROWE ? Accession #: ? [id number] : ? 1980 (Age: 27) ??F ?Collect Date: ? 05/17/2007 Location: ? [facility] ? Receive Date: ? 05/18/2007 Provider: ?MAYANK FLORENTINO MD Copy to: ? Specimen/Source: ?ThinPrep Pap Test, Cervix/Endocervix, processed on Pay-Me ThinPrep Imaging System, with manual evaluation Last [...] Mayank Florentino PATHOLOGY ORDERABLES Performing Organization Address City/State/[facility] Co de Phone Number [facility] [address] [place] [address] documented in this encounter Visit Diagnoses Not on filedocumented in this encounter Care Teams Computer Applications Engineer Relationship Specialty Start Date End Date Ladonna Maurer PA [address] [place] [address] PCP - General 05/20/10 06/02/11 documented as of this encounter
--- OUTSIDE RECORDS SUMMARY | 2024-06-14 02:12 | XMS_ITS | Encounter Summary ---
Author Organization [facility] Address [address] [place] [address] Care Team Providers Care Paper Tube Cutter Name Role Phone Unavailable Primary Care Provider Unavailabl e Encounter Details Date Type Department Care Team (Late st Contact Info) Description 04/29/2006 14:54 EDT Hospital Encounter [facility] - Maple conversion [address] [place], [place] [address] Justus Bond MD [address] [place] [address] [place] [phone] Social History Tobacco Use Types Packs/Day Years [...] Description 12/29/2024 10:20 EST Office Visit [facility] Rhe[facility]ology & [facility] - [facility] [address] [place], [place] [phone] Micaela Hoff MD 111 [facility], Level 5 [place] [phone] documented as of this encounter Visit Diagnoses Not on filedocumented in this encounter Additional Health Concerns Infection Onset Date Last Indicated Resolved Time MRSA 10/20/2011 10/20/2011 documented as of this encounter
--- OUTSIDE RECORDS SUMMARY | 2024-06-14 02:12 | XMS_ITS | Encounter Summary ---
Author Organization [facility] [place] [address] Care Team Providers Care Brush Sander Name Role Phone Anuja Cai HUANG Primary Care Provider + [phone] Reason for Visit * Reason Comments Medication Refill Encounter Details Date Type Department Care Team (Late Contact Info) Description 04/18/2024 [place] [phone] Britt Zurita MD [facility] [place] [address] Polyarthralgia Social History Tobacco Use Types Packs/Day [...] 12:00 PM EDT Office [place] [phone] Britt Zurita MD [facility] [place] [address] documented as of this encounter Visit Diagnoses Diagnosis Polyarthralgia Pain in joint, multiple sites documented in this encounter Care Teams Brush Sander Relationship Specialty Start Date End Date Anuja Cai APRN [address] [place] [address] PCP - General Internal Medicine 07/25/21 documented as of this encounter
--- OUTSIDE RECORDS SUMMARY | 2024-06-14 02:12 | XMS_ITS | Encounter Summary ---
Author Organization [facility] Address [address] [place] [address] Care Team Providers Care Dividend Deposit Voucher Clerk Name Role Phone Unavailable Primary Care Provider Unavailabl e Encounter Details Date Type Department Care Team (Latest Contact Info) Description 12/29/2003 10:51 EST - 12/29/2003 11:59 EST Hospital Encounter [facility] - Other [address] [place] [address] Grayson Geiger MD Discharge Disposition: Auto Discharge [...] EST Office Visit [facility] Rheumatology & Immunology - [facility] [address] [place], [place] [address] Micaela Hoff MD 111 [facility], Level 5 [place] [phone] documented as of this encounter Procedures Procedure [...] ? TERI CROWE ? Accession #: ? [id number] : ? 1980 (Age: 23) ??F ?Collect [...] Matias DO PATHOLOGY ORDERABLES [facility] [address] [place] [address] documented in this encounter Visit Diagnoses Not on filedocumented in this encounter
--- OUTSIDE RECORDS SUMMARY | 2024-06-14 02:12 | XMS_ITS | Encounter Summary ---
Author Organization [facility] Address [address] [place] [address] Care Team Providers Care Nuclear Process Engineer Name Role Phone Unavailable Primary Care Provider Unavailabl e Encounter Details Date Type Department Care Team (Late st Contact Info) Description 02/23/2006 Office Visit [facility] - Maple conversion [address] [place] [address] Nurse, Emergency Room, Social History Tobacco Use Types Packs/Day Years Used Date Smoking Tobacco: Never Assessed Sex and Gender Information Value Date Recorded Sex Assigned at Not on file Gender Identity Not on file Sexual Orientation Not on file documented as of this encounter Progress Notes * Vu Porter Academic Affairs Vice President - 12/26/2009 1946 EST Department - Physician Summary Registration Date/Time: 02/23/2006 17:24 Addenda for TERI LAKE VisitID: [id number] Date: 02/23/2006 02/24/2006 9:04 attempted call back [...] [facility] Rhe[facility]ology & Immunology - [address] [address] Micaela Hoff MD [address] [place] [address], [address] [place] [address] documented as of this encounter Visit Diagnoses Not on filedocumented in this encounter
--- OUTSIDE RECORDS SUMMARY | 2024-06-14 02:12 | XMS_ITS | Encounter Summary ---
Author Organization [facility] Address [address] [place] [address] Care Team Providers Care Endo Tech Name Role Phone Ladonna Maurer Primary Care Provider Encounter Details Date Type Department Care Team (Late st Contact Info) Description 03/03/2003 Results Only [facility] - Maple conversion [address] [place] [address] Ashley Cerrato [address] [address] Social History Tobacco Use Types Packs/Day Years Used Date Smoking Tobacco: Never Assessed Sex and Gender Information Value Date Recorded Sex Assigned at Not on file Gender Identity Not on file Sexual Orientation Not on file documented as of this encounter Plan of Treatment Upcoming Encounters Date Type Department Care Team (Late st Contact Info) Description 12/29/2024 10:20 EST Office Visit [facility] Rheumatology & Immunology - [facility] [address] [place], [place] [address] Micaela Hoff MD 111 [facility], Level 5 [place] [address] documented as of this encounter [...] ? TERI CROWE ? Accession #: ? [id number] : ? 1980 (Age: 22) ??F ?Collect [...] Ashley BLAIRP PATHOLOGY ORDERABLES [facility] [address] [place] [address] documented in this encounter Visit Diagnoses Not on filedocumented in this encounter Care Teams Endo Tech Relationship Specialty Start Date End Date Ladonna Maurer PA [address] [place] [address] PCP - General 05/20/10 06/02/11 documented as of this encounter
--- OUTSIDE RECORDS SUMMARY | 2024-06-14 02:12 | XMS_ITS | Encounter Summary ---
Author Organization [facility] Address [address] [place] [address] Care Team Providers Care Employee Adviser Name Role Phone Unavailable Primary Care Provider Unavailabl e Encounter Details Date Type Department Care Team (Late st Contact Info) Description 09/03/2007 Before PRISM Converted Visit (Maple) [facility] - Maple conversion [address] [place] [address] Magda Tejaad MD [address] [place] [address] Social History Tobacco Use Types Packs/Day Years [...] [facility] - [facility] [address] [place] [address] Micaela Hoff MD [address] [facility], Level 5 [place] [phone] documented as of this encounter Visit Diagnoses [...] use. 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 ALLERGIES No known drug allergies. FAMILY HISTORY No mental retardation. No defects. DENTAL SERVICE CHIEF HISTORY She does have a history of [...] Normal external female genitalia with normal Bartholin, Nazareth, and Rony glands. The cervix is noted to be very posterior and appearswithout lesions. Gonorrhea and chlamydia cultures were performed as well as Pap smear. The cervix on bimanual examination is noted to be closed with the posterior lip approximately 2 cm and the anterior lip approximately 1.5 cm in length.The uterine size is approximately 6-week size. ASSESSMENT AND PLAN Fgnyqr-rwa-mjfj-old G2, P0-1-0-0 with a history of delivery [...] by Magda Tejada MD 09/14/2007 12:01 Magda Tejada MD Shanique Eagle MD - Magda Tejada MD - harlan Job ID: [id number] Doc ID: [id number] cc: documented in this encounter
--- OUTSIDE RECORDS SUMMARY | 2024-06-14 02:12 | XMS_ITS | Encounter Summary ---
Author Organization [facility] Address [address] [place] [address] Care Team Providers Care Business Law Professor Name Role Phone Unavailable Primary Care Provider Unavailabl e Encounter Details Date Type Department Care Team (Late st Contact Info) Description 12/14/2005 Office Visit [facility] - Maple conversion [address] [place] [address] Stephany Quintanilla MD [address] [place] [address] Social History Tobacco Use Types Packs/Day Years Used Date Smoking Tobacco: Never Assessed Sex and Gender Information Value Date Recorded Sex Assigned at Not on file Gender Identity Not on file Sexual Orientation Not on file documented as of this encounter Progress Notes * German, Conv Tankage Supervisor - 01/02/20102026 EST Department - Physician Summary [...] back pain, flank pain or fever. Treatment CAR LOT ATTENDANT: None. PAST HX: Negative. SOCIAL HX: Nonsmoker. [...] Patient verbalized understanding. Written instructions provided in Slovak. The patient was discharged home and unaccompanied [...] Visit [facility] Rheumatology & Immunology [place] [address] Micaela Hoff MD 111 [facility], Level 5 [place] [address] documented as of this encounter Visit Diagnoses Not on filedocumented in this encounter
--- OUTSIDE RECORDS SUMMARY | 2024-06-14 02:12 | XMS_ITS | Encounter Summary ---
Author Organization [facility] [place] [address] Care Team Providers Care Residential Support Worker Name Role Phone TrellUbaldoe Barbara ENCINAS Primary Care Provider + [phone] Reason for Referral * Diagnostic Test (Routine) - Closed Specialty Diagnoses / Procedures Referred By Contac t Referred To Contact Radiology Diagnoses Opacity of lung on imaging study Procedures CT Chest wo Contrast (Generic) Britt Zurita MD [facility] [place] [address] [facility] [place] [address] Referral ID Status Reason Start Date Expiration Date V isits Requested Visits Authorized [id number] Closed Specialty Service Requested 02/17/2024 08/18/2025 1 1 Reason for Visit * Diagnostic Test (Routine) - Closed Specialty Diagnoses / Procedures Referred By Contac t Referred To Contact Radiology Diagnoses Opacity of lung on imaging study Procedures CT Chest wo Contrast (Generic) Britt Zurita MD [facility] [place] [address] [facility] [place] [address] Referral ID Status Reason Start Date Expiration Date V isits Requested Visits Authorized [id number] Closed Specialty Service Requested 02/17/2024 08/18/2025 1 1 Encounter Details Date Type Department Care Team (Latest Contact Info) Description 02/19/2024 10:29 AM EDT - 02/19/2024 11:59 PM EDT Hospital Encounter CT Scan at [facility] [place] [phone] Britt Zurita MD [facility] [place] [address] Opacity of lung on imaging study Discharge [...] 02/16/24 07/29/2021 fluticasone propionate (Flonase) 50 mcg/actuation [place], Suspension SPRAY ONE SPRAY IN EACH [...] 12:00 PM EDT Office [place] [address] Britt Zurita MD [facility] [place] [address] documented as of this encounter Procedures Procedure Name Priority Date/Time Associated Diagnosis Comments CT CHEST WO CONTRAST (GENERIC) Routine 02/19/2024 10:43 AM EDT Opacity of lung on imaging study documented in this encounter Results * CT Chest wo Contrast (Generic) (02/19/2024 10:43 AM EDT) [employer] WORKSTATION ID [id number] RAD Anatomical Region Laterality Modality Chest Computed [...] who have questions please contact the health rn palliative care that requested your imaging first. ? Electronically signed by: Rebecca Escalera MD, [facility] ([phone]), at 02/21/2024 6:30 AM Narrative 02/21/2024 6:30 [...] patients who have questions please contactthe health rn palliative care that requested your imaging first. Electronically signed by: Rebecca Escalera MD, [facility] ([phone]), at 02/21/2024 6:30 AM Britt Zurita MD IMG CT ORDERABLES documented in this encounter Visit Diagnoses Diagnosis Opacity of lung on imaging study documented in this encounter Care Teams Residential Support Worker Relationship Specialty Start Date End Date Anuja Cai APRN [address] [place] [address] PCP - General Internal Medicine 07/25/21 documented as of this encounter
--- OUTSIDE RECORDS SUMMARY | 2024-06-14 02:12 | XMS_ITS | Encounter Summary ---
Author Organization [facility] Address [address] [place] [address] Care Team Providers Care Bandage Winding Machine Operator Name Role Phone Unavailable Primary Care Provider Unavailabl e Encounter Details Date Type Department Care Team (Late st Contact Info) Description 05/31/2004 8:51 EDT Hospital Encounter [facility] [place] 1 [place] [address] Rehan Overton MD [address] [place] [phone] Social History Tobacco Use Types Packs/Day Years [...] Visit [facility] Rheumatology & Immunology - [address] [address] Micaela Hoff MD 111 [facility], [address] [place] [phone] documented as of this encounter Visit Diagnoses Not on filedocumented in this encounter Additional Health Concerns Infection Onset Date Last Indicated Resolved Time MRSA 10/20/2011 10/20/2011 documented as of this encounter
--- OUTSIDE RECORDS SUMMARY | 2024-06-14 02:12 | XMS_ITS | Encounter Summary ---
Author Organization [facility] Address [address] [place] [address] Care Team Providers Care Weatherization Administrator Name Role Phone Unavailable Primary Care Provider Unavailabl e Encounter Details Date Type Department Care Team (Latest Contact Info) Description 12/14/2005 10:26 EST - 12/14/2005 11:59 EST Hospital Encounter [facility] Emergency Department - [address] [address] Emergency, MD Fede Discharge Disposition: Home or [...] 12/29/2024 10:20 EST Office Visit [facility] Rheumatology & Immunology - [address] [address] Micaela Hoff MD [address] [place] [address], [address] [place] [address] documented as of this encounter [...] growth [facility] Report Status Final [id number] [facility] 12/14/2005 10:5 0 EST 12/14/2005 12:59 EST Default Emergency MICROBIOLOGY - GENE RAL ORDERABLES Performing Organization Address [facility] de Phone Number [facility] [address] [place] [address] * (ABNORMAL) URINE MICROSCOPIC ONLY (12/14/2005 10:50 [...] Emergency URINALYSIS ORDERABL ES Performing Organization Address [facility] de Phone Number [facility] [address] [place] [address] * CULTURE IF UA POSITIVE (12/14/2005 10:50 EST) Culture if Indicated Culture indicated by urinalysis results. [facility] 12/14/2005 10:5 0 EST 12/14/2005 10:52 EST Default Emergency MICROBIOLOGY - GENE RAL ORDERABLES [facility] [address] [place] [address] documented in this encounter Visit Diagnoses Not on filedocumented in this encounter
--- OUTSIDE RECORDS SUMMARY | 2024-06-14 02:12 | XMS_ITS | Encounter Summary ---
Author Organization [facility] Address [address] [place] [address] Care Team Providers Care Home Service Demonstrator Name Role Phone Ladonna Maurer Primary Care Provider [phone] Encounter Details Date Type Department Care Team (Late st Contact Info) Description 02/06/2004 Results Only [facility] - Maple conversion [address] [place] [address] Sonya Florentino [address] [place] [facility] [place] [address] Social History Tobacco Use Types Packs/Day Years Used Date Smoking Tobacco: Never Assessed Sex and Gender Information Value Date Recorded Sex Assigned at Not on file Gender Identity Not on file Sexual Orientation Not on file documented as of this encounter Plan of Treatment Upcoming Encounters Date Type Department Care Team (Late st Contact Info) Description 12/29/2024 10:20 EST Office Visit [facility] Rheumatology & Immunology - [facility] [address] [place], [place] [address] Micaela Hoff MD 111 [facility], [address] [place] [phone] documented as of this encounter Procedures Procedure Name Priority Date/Time Associated Diagnosis Comments GROUP A STREP CULTURE Routine 02/06/2004 15:06 EDT documented in this encounter Results * PHARYNGITIS CULTURE (02/06/2004 15:06 EDT) Specimen Description Throat [facility] Result Few STREPTOCOCCUS , BETA HEMOLYTIC GROUP A (STREPTOCOCCU S PYOGENES) Few Usual karen-pharyngea l marquita Supplementary report. [facility] Report Status Final [id number] [facility] 02/06/2004 15:0 6 EDT 02/06/2004 20:09 EDT Sonya Florentino MICROBIOLOGY - GENER AL ORDERABLES [facility] [address] [place] [address] documented in this encounter Visit Diagnoses Not on filedocumented in this encounter Care Teams Home Service Demonstrator Relationship Specialty Start Date End Date Ladonna Maurer PA [address] [place] [address] PCP - General 05/20/10 06/02/11 documented as of this encounter
--- OUTSIDE RECORDS SUMMARY | 2024-06-14 02:12 | XMS_ITS | Encounter Summary ---
Author Organization [facility] Address [address] [place] [address] Care Team Providers Care Backbreaker Name Role Phone Unavailable Primary Care Provider Unavailabl e Encounter Details Date Type Department Care Team (Latest Contact Info) Description 09/25/2004 6:47 EST - 09/25/2004 11:59 EST Hospital Encounter [facility] Perioperative Services- [address] [phone] Robin Garay MD PhD Discharge Disposition: Home [...] - [facility] Rheumatology & Immunology - [address] [address] Micaela Hoff MD [address] [place] [address], [address] [place] [address] documented as of this encounter Procedures Procedure Name Priority Date/Time Associated Diagnosis Comments TEST, URINE Routine 09/25/2004 7:28 EST documented in this encounter Results * TEST, URINE (09/25/2004 7:28 EST) Result-Pregnanc y Test, Ur Neg [facility] Specific [place] 1.020 [facility] 09/25/2004 7:28 EST 09/25/2004 7:29 EST Robin Garay MD PhD URINALYSIS ORDER HEATH [facility] [address] [place] [address] documented in this encounter Visit Diagnoses Not on filedocumented in this encounter
--- OUTSIDE RECORDS SUMMARY | 2024-06-14 02:12 | XMS_ITS | Encounter Summary ---
Author Organization [facility] Address [address] [place] [address] Care Team Providers Care Service Provider Name Role Phone Unavailable Primary Care Provider Unavailabl e Encounter Details Date Type Department Care Team (Latest Contact Info) Description 02/24/2002 12:05 EDT Hospital Encounter [facility] - Other [address] [place] [address] Ashley Cerrato FNP [address] [place] [phone] Unknown, Provider, Discharge Disposition: Auto Discharge Social [...] [facility] [place] - [facility] [address] [place] [address] Micaela Hoff MD 111 [facility], Level 5 [place] [phone] documented as of this encounter Procedures Procedure [...] cancers. [facility] Report Status Final [id number] [facility] 02/24/2002 10:2 6 EDT 03/07/2002 10:26 EDT Ashley DOVE MICROBIOLOGY - GENER AL ORDERABLES Performing Organization Address City/State/[facility] Co de Phone Number [facility] [address] [place] [address] * CYTOPATHOLOGY (02/24/2002 0:00 EDT) Pathology Report: CYTOPATHOLOGY REPORT Reports generated via electronic interface contain original data; however they are lacking the format of the original report. Caution should be taken when reading/interpreti ng unformatted reports. Name: ? JAYA TERI Sayda ? Accession #: ? [id number] : ? 1980 (Age: 21) ??F ?Collect Date: ? 02/24/2002 Location: ? [facility] ? Receive Date: ? 02/28/2002 Provider: ?ASHLEY NELLY SEWER LINE PHOTO INSPECTOR Copy to: ? [facility] ? [facility] ? [address] ? [place] [address] ? Specimen/Source: ?ThinPrep Pap Test, Cervix Last [...] Report JENIFER TIJERINA 02/24/2002 02/28/2002 Ashley Cerrato SEWER LINE PHOTO INSPECTOR PATHOLOGY ORDERABLES Performing Organization Address City/State/[facility] Co de Phone Number J[facility] TIJERINA [address] [place] [address] documented in this encounter Visit Diagnoses Not on filedocumented in this encounter
--- OUTSIDE RECORDS SUMMARY | 2024-06-14 02:12 | XMS_ITS | Encounter Summary ---
Author Organization [facility] Address [address] [place] [address] Care Team Providers Care Custom Furrier Name Role Phone Unavailable Primary Care Provider Unavailabl e Encounter Details Date Type Department Care Team (Latest Contact Info) Description 09/03/2007 13:55 EDT Hospital Encounter [address] [address] Shanique Eagle MD [address] [phone] Discharge Disposition: Auto Discharge Social History Tobacco [...] [facility] Rheumatology & Immunology - [address] [address] Micaela Hoff MD [address] [place] [address], [address] [place] [phone] documented as of this encounter Procedures Procedure Name Priority Date/Time Associated Diagnosis Comments BRIDGE TEACHER US OB FIRST TRIMESTER TRANSVAGINAL 09/10/2007 13:09 EST documented in this encounter Results * BRIDGE TEACHER US OB FIRST TRIMESTER TRANSVAGINAL (09/10/2007 13:09 [...] findings. /harlan Magda Tejada MD IMG US BRIDGE TEACHER ORDERABLE S documented in this encounter Visit Diagnoses Not on filedocumented in this encounter
--- OUTSIDE RECORDS SUMMARY | 2024-06-14 02:12 | XMS_ITS | Encounter Summary ---
Author Organization [facility] Address [address] [place] [address] Care Team Providers Care It Project Manager Name Role Phone Unavailable Primary Care Provider Unavailabl e Encounter Details Date Type Department Care Team (Late st Contact Info) Description 06/15/2006 15:07 EDT Hospital Encounter [facility] - Maple conversion [address] [place] [address] Vlad Lucio MD Social History Tobacco Use [...] 12/29/2024 10:20 EST Office Visit [facility]ology [facility] [address] [place], [place] [address] Micaela Hoff MD 111 [facility], [address] [place] [phone] documented as of this encounter Procedures Procedure [...] OOD GAS ORDERABLES [facility] [address] [place] [address] * (ABNORMAL) HEMAGRAM AND DIFFERENTIAL (06/15/2006 16:00 [...] LAB PLT 261 141 - 320 K/cmm [facility] RDW-CV 12.6 11.7 - 14.6 [...] DNA PROBE ORDERABLES [facility] [address] [place] [address] documented in this encounter Visit Diagnoses Not on filedocumented in this encounter Additional Health Concerns Infection Onset Date Last Indicated Resolved Time MRSA 10/20/2011 10/20/2011 documented as of this encounter
--- OUTSIDE RECORDS SUMMARY | 2024-06-14 02:12 | XMS_ITS | Encounter Summary ---
Author Organization [facility] Address [address] [place] [address] Care Team Providers Care Teller Coordinator Name Role Phone Unavailable Primary Care Provider Unavailabl e Encounter Details Date Type Department Care Team (Late st Contact Info) Description 12/09/2004 16:17 EST Hospital Encounter [facility] - Other [address] [place] [address] Susy Aguilera MD [address] [place] [phone] Social History Tobacco Use Types Packs/Day Years [...] [facility] - [facility] [address] [place], [place] [phone] Micaela Hoff MD 111 [facility], [address] [place] [phone] documented as of this encounter Procedures Procedure Name Priority Date/Time Associated Diagnosis Comments [facility] LONG TERM CARE SOCIAL WORKER Routine 01/06/2005 3:30 EST documented in this encounter Results * [facility] LONG TERM CARE SOCIAL WORKER (01/06/2005 3:30 EST) Anatomical Region Laterality Modality Other 01/06/2005 3:30 EST Narrative 06/28/2009 11:21 EDT [facility] TRANSVAGINAL ULTRASOUND/SONOHYSTEROGRAM - 01/06/05 INDICATION: S/p hysteroscopic [...] Procedure Note Robin Garay MD - 06/28/2009 [facility] TRANSVAGINAL ULTRASOUND/SONOHYSTEROGRAM - 01/06/05 INDICATION: S/p hysteroscopic [...] - 01/07/05 Linda Bustillos MD IMG US [facility] ORDERABLE S documented in this encounter Visit Diagnoses Not on filedocumented in this encounter Additional Health Concerns Infection Onset Date Last Indicated Resolved Time MRSA 10/20/2011 10/20/2011 documented as of this encounter
--- OUTSIDE RECORDS SUMMARY | 2024-06-14 02:12 | XMS_ITS | Encounter Summary ---
Author Organization [facility] Address [address] [place] [address] Care Team Providers Care Metal Wire Technician Name Role Phone Unavailable Primary Care Provider Unavailabl e Encounter Details Date Type Department Care Team (Late st Contact Info) Description 07/06/2002 8:14 EDT Hospital Encounter [facility] - Other [address] [place] [phone] Ashley Villegas FNP [address] [place] [phone] Unknown, Provider, Social History Tobacco Use Types [facility] - [address] [address] Micaela Hoff MD [address] [place] [address], [address] [place] [phone] documented as of this encounter Procedures Procedure [...] ? TERI LAKE ? Accession #: ? [id number] : ? 1980 (Age: 22) ??F ?Collect Date: ? 07/06/2002 Location: ? [facility] ? Receive Date: ? 07/11/2002 Provider: ?ASHLEY VILLEGAS [facility] Copy to: ? [facility] ? [facility] ?[address] ?[place] [address] ? Specimen/Source: ?ThinPrep Pap Test, Cervix Last Menstrual Period: ? 06/29/02 Previous Gynecologic Pathology: ? ASC-US: 04/02 ? SPECIMEN ADEQUACY ? Satisfactory for Evaluation - transformation zone component present GENERAL CATEGORIZATION ? Epithelial Cell Abnormality INTERPRETATION ? Squamous Cell Abnormality - Atypical squamous cells, undetermined significance. EDUCATIONAL NOTES/RECOMMENDATI ONS ? [facility] recommends following the 2001 Consensus Guidelines for the Management of Women with Cervical Cytological Abnormalities (BE,2002;287:212 0-9). Management algorithms have been distributed by [facility] and are available online at www.ASCCP.org. ? Document reviewed and electronically signed by: ? JASPREET COTTRELL MD ? Report Date: ??07/13/2002 11:25 End of Report JENIFER TIJERINA 07/06/2002 07/11/2002 Ashley Villegas [facility] PATHOLOGY ORDERABLES Performing Organization Address City/State/[facility] Co de Phone Number [facility] [address] [place] [address] documented in this encounter Visit Diagnoses Not on filedocumented in this encounter Additional Health Concerns Infection Onset Date Last Indicated Resolved Time MRSA 10/20/2011 10/20/2011 documented as of this encounter
--- OUTSIDE RECORDS SUMMARY | 2024-06-14 02:12 | XMS_ITS | Encounter Summary ---
Author Organization [facility] Address [address] [place] [address] Care Team Providers Care Ecg Technician Name Role Phone Unavailable Primary Care Provider Unavailabl e Encounter Details Date Type Department Care Team (Latest Contact Info) Description 06/20/2004 12:36 EDT Hospital Encounter [address] [address] Rehan Overton MD [address] [place] [phone] Discharge Disposition: Auto Discharge Social History Tobacco [...] Description 12/29/2024 10:20 EST Office Visit [facility] Rheumatology & Immunology [address] [phone] Micaela Hoff MD 111 [facility], [address] [place] [address] documented as of this encounter Procedures Procedure Name Priority Date/Time Associated Diagnosis Comments [facility] INSURANCE BROKER Routine 06/25/2004 17:30 EDT [place] HYSTEROSALPINGOGRAM Routine 4 14:58 EDT documented in this encounter Results * [facility] INSURANCE BROKER (06/25/2004 17:30 EDT) Anatomical Region Laterality Modality Other 06/25/2004 17:3 0 EDT Narrative 07/17/2009 9:37 EDT [facility] TRANSVAGINAL ULTRASOUND - 06/25/04 INDICATION: Bicornuate versus [...] Procedure Note Robin Garay MD - 07/17/2009 [facility] TRANSVAGINAL ULTRASOUND - 06/25/04 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
--- OUTSIDE RECORDS SUMMARY | 2024-06-14 02:12 | XMS_ITS | Clinical Summary ---
Author Organization [facility] [place] [address] Care Team Providers Care Seaweed Harvester Name Role Phone Anuja Cai APRN Primary Care Provider [phone] Allergies Active Allergy Reactions Criticality Noted Date [...] 07/29/2021 Active fluticasone propionate (Flonase) 50 mcg/actuation [place], Suspension SPRAY ONE SPRAY IN EACH NOSTRIL [...] Care Team Description 04/18/2024 [place] [address] Britt Zurita MD Polyarthralgia from Last 3 [...] 12:00 PM EDT [place] [address] Britt Zurita MD [facility] [place] [address] Health Maintenance Due Date Last Done Comments [...] AM EDT Polyarthralgia HIV SCREEN, 4TH GENERATION ([facility]/CGP/APD/NLH) Routine 04/27/2013 2:31 PM EDT Fatigue Night sweats MOLD FORMS BUILDER MOLECULAR GENETICS REPORT Routine 04/14/2013 3:59 PM EDT MOLD FORMS BUILDER CYTOLOGY FINAL REPORT Routine 04/14/2013 3:59 PM EDT from Last 3 Months or Most Recently Relevant to Health Maintenance Results * Comprehensive metabolic panel (non-fasting) (04/02/2023 11:00 AM EDT) Glucose 95 65 - 199 mg/dL [facility] Comment:Diabetes: >=200 mg/d L plus symptoms Blood Urea Nitrogen 12 8 - 18 mg/dL [facility] Creatinine 0.93 0.70 - 1.20 mg/dL [facility] Sodium 138 135 - 145 mmol/L [facility] Potassium 3.8 3.5 - 5.0 mmol/L [facility] Comment: Please note: ??Patients with WBC >100,000 may have falsely elevated Potassium levels. ??For accurate Potassium quantification in these patients send serum separator tube (gold top) for subsequent determinations. ??Contact the Clinical Chemistry Laboratory if there are any questions. Chloride 101 98 - 107 mmol/L [facility] Carbon Dioxide 27 22 - 31 mmol/L [facility] Anion Gap 10 5 - 15 mmol/L [facility] Calcium 9.6 8.5 - 10.5 mg/dL [facility] Protein, Total 7.5 6.1 - 8.0 g/dL [facility] Albumin 4.7 3.2 - 5.2 g/dL [facility] Aspartate Aminotransferase 19 0 - 30 unit/L [facility] Alanine Aminotransferase 16 0 - 30 unit/L [facility] Alkaline Phosphatase 57 35 - 105 unit/L [facility] Bilirubin, Total 0.4 0.2 - 1.3 mg/dL [facility] Est Glomerular Filtration Rate 79 >=60 mL/min/1. 73 m?? [facility] Comment: This patient's estimated GFR was [...] MD CHEMISTRY ORDERABLE S Performing Organization Address [facility] [place] [address] * HIV (04/27/2013 2:31 PM EDT) [facility] HIV 1/[address] [facility] Blood specimen (specimen) 04/27/2013 2:31 PM EDT 04/27/2013 2:38 PM EDT Narrative Resulting Agency Comment Spec In Lab Anila Serna MD CHEMISTRY ORDERABLE S Performing Organization Address [facility] Co de Phone Number [facility] * MOLD FORMS BUILDER Molecular Genetics Report (04/14/2013 3:59 PM EDT) [facility] MOLD FORMS BUILDER Molecular Genetics Report ? [facility] ? Provider: ?? LIYA SILVA Pt. Name: ?? TERI CROWE ? Acc #: ?[id number] ?Pt. ? Col Date: ?? 04/14/2013 ? [...] Based Prep ? Reviewed by: ??Willian Marroquin, [facility] ? A ?VCELD Vag/Cerv/Endo/L BP/Diagnostic ? B ?HPVDO Do HPV Testing ? Verified date: ??04/21/13 ??[facility] ? Verified by: ?Lab Review, Molecular Genetics ? (Electronic Signature) RUBEN BENNETT 04/14/2013 3:59 PM EDT Liya Silva TREATMENT SUPERVISOR PATHOLOGY/CYTOLO GY ORDERABLES RUBEN BENNETT * Police Communications Dispatcher Cytology Final Report (04/14/2013 3:59 PM EDT) Police Communications Dispatcher Cytology Final Report ? [facility] ? Provider: ?? LIYA SILVA Pt. Name: ?? TERI CROWE ? Acc #: ?[id number] ?Pt. ? Col Date: ?? 04/14/2013 ? /Sex: ?1980,(33 years),Female ? Rec Date: ?? 04/14/2013 ? LOC: ?[facility]PN ? CYTOPATHOLOGY: ??MOLD FORMS BUILDER ? ---Adequacy--- ? Specimen submitted is satisfactory [...] ? These guidelines were published in the French Journal of Obstetrics and ? Gynecology (2007;197(4):346-3 55). ? 04/21/13 ?? Screened by: ??SLA ??SOCIAL SCIENCES INSTRUCTOR ? 04/22/13 ?? Verified by: ??BELKYS OCONNELL MD - Pathologist ? ---Comment--- ? Please also see concurrent HPV test result. ? ---Clinical Information--- ? HPV Option: ? Concurrent HPV ? Preparation: ?Liquid Based Pap ? Specimen Source: ?Vag/Cerv/Endo/LB P/Diagnostic ? LMP: ?04/03/13 ? Hormones?: ?No ? Hysterectomy?: ?No ?: ?No ?: ?No ? I.U.D.?: ?No ? Pelvic Radiation: ? No ? Prior MOLD FORMS BUILDER Therapy?: ? Other (comment) ? Hist Abnl Pap/Biopsy?: ??Yes, history of previous abnormal Pap ? Hist of HPV Vaccine?: ?? No ? Hist of Smoking?: ? Yes ? [facility] ? Provider: ?? LIYA SILVA Pt. Name: ?? TERI CROWE ? Acc #: ?[id number] ?Pt. ? Col Date: ?? 04/14/2013 ? /Sex: ?1980,(33 years),Female ? Rec Date: ?? 04/14/2013 ? LOC: ?HPN ? CYTOPATHOLOGY: ??MOLD FORMS BUILDER ? Hist of MAR exposure?: ??No ? Clinical Data, Significant Therapy and Clinical Impression: ? This Pap Test has been evaluated with the assistance of the ThinPrep Pap ? Test Imaging System. ? Note: ? The Pap test is a screening test for cervical cancer with an inherent ? false-negative rate dependent upon several variables. ??For further ? information please contact the [facility] Laboratory. ? Reference: ??Julianne SINGH. ??Nozzle And Sleeve Worker of Pap Smear Results. ??In: ? Suri BS, Sil[facility], ed. ??The Pap Smear. ??[place]: ??Willian, 2002: ? 71-77. RUBEN BENNETT 04/14/2013 3:59 PM EDT Liya Silva TREATMENT SUPERVISOR PATHOLOGY/CYTOLO GY ORDERABLES RUBEN BENNETT from Last 3 Months or Most Recently Relevant to Health Maintenance Care Teams Seaweed Harvester Relationship Specialty Start Date End Date Anuja Cai APRN [address] [place], [place] [phone] PCP - General Internal Medicine 07/25/21
--- OUTSIDE RECORDS SUMMARY | 2024-06-14 02:12 | XMS_ITS | Encounter Summary ---
Author Organization [facility] Address [address] [place] [address] Care Team Providers Care Electromechanical Technologist Name Role Phone Unavailable Primary Care Provider Unavailabl e Encounter Details Date Type Department Care Team (Late st Contact Info) Description 01/09/2005 9:39 EST - 01/09/2005 11:59 EST Hospital Encounter [facility] - Other [address] [place], [place] [address] [phone] Gustavo Smith MD [address] [phone] Discharge Disposition: Auto Discharge Social History Tobacco [...] [facility] - [facility] [address] [place], [place] [phone] Micaela Hoff MD 111 [facility], [address] [place] [phone] documented as of this encounter Visit Diagnoses Not on filedocumented in this encounter
--- OUTSIDE RECORDS SUMMARY | 2024-06-14 02:12 | XMS_ITS | Encounter Summary ---
Author Organization [facility] Address [address] [place] [address] Care Team Providers Care Business Programmer Name Role Phone Ladonna Maurer Primary Care Provider [phone] Encounter Details Date Type Department Care Team (Late st Contact Info) Description 12/29/2003 Results Only [facility] - Maple conversion [address] [place] [address] Stephany Adkisn DO [facility] STA[facility] MAIL [address] [place] [address] Social History Tobacco Use Types Packs/Day Years [...] [facility] Rheumatology & Immunology - [facility] [address] [place], [place] [address] Micaela Hoff MD 111 [facility], [address] [place] [phone] documented as of this encounter Procedures Procedure [...] Result No Neisseria gonorrhoeae DNA detected by peer health promoter mediated amplification. [facility] Report Status Final [id number] [facility] Specimen Description Urine [facility] 12/29/2003 16:0 6 EST 12/29/2003 18:59 EST Stephany A Lucille DO MICROBIOLOGY - GENER AL ORDERABLES Performing Organization Address City/[facility] Co de Phone Number [facility] [address] [place] [address] * GLUCOSE, SERUM (12/29/2003 16:06 EST) Glucose, Serum 97 70 - 110 mg/dl [facility] 12/29/2003 16:0 6 EST 12/29/2003 18:46 EST Stephany A Lucille DO CHEMISTRY & BLOOD GA S ORDERABLES Performing Organization Address City/[facility]/ZIP Co de Phone Number [facility] [address] [place] [address] * HDL (12/29/2003 16:06 EST) HDL 38 mg/dl [facility] Comment: Highly Desirable:>60 Desirable:35-60 High Risk:<35 12/29/2003 16:0 6 EST 12/29/2003 18:46 EST Stephany A Lucille DO CHEMISTRY & BLOOD GA S ORDERABLES Performing Organization Address City/[facility]/ZIP Co de Phone Number [facility] [address] [place] [address] * CHOLESTEROL (12/29/2003 16:06 EST) Cholesterol 149 mg/dl [facility] Comment: Desirable:<200 Borderline:200-239 High Risk:>ws=656 12/29/2003 16:0 6 EST 12/29/2003 18:46 EST Stephany Adkins DO CHEMISTRY & BLOOD GA S ORDERABLES Performing Organization Address [facility] Co de Phone Number [facility] [address] [place] [address] * CHLAMYDIA TRACHOMATIS AMPLIFIED PROBE (12/29/2003 16:06 EST) Specimen Description Urine [facility] Result No Chlamydia trachomatis DNA detected by peer health promoter mediated amplification. [facility] Report Status Final [id number] [facility] 12/29/2003 16:0 6 EST 12/29/2003 18:58 EST Stephany Adkins DO MICROBIOLOGY - GENER AL ORDERABLES Performing Organization Address [facility] de Phone Number [facility] [address] [place] [address] documented in this encounter Visit Diagnoses Not on filedocumented in this encounter Care Teams Business Programmer Relationship Specialty Start Date End Date Ladonna Maurer PA [address] [place] [address] PCP - General 05/20/10 06/02/11 documented as of this encounter
--- OUTSIDE RECORDS SUMMARY | 2024-06-14 02:12 | XMS_ITS | Encounter Summary ---
Author Organization [facility] Address [address] [place] [address] Care Team Providers Care Bed Spring Maker Name Role Phone Ladonna Maurer Primary Care Provider [phone] Yair Dow MD Primary Care Provider [phone] Encounter Details Date Type Department Care Team (Late st Contact Info) Description 10/01/2004 Before PRISM Converted Visit (Maple) [facility] - Maple conversion [address] [place] [address] Yeimy Solorio, PhD [address] [place] [address] Social History Tobacco Use Types Packs/Day Years Used Date Smoking Tobacco: Never Assessed Sex and Gender Information Value Date Recorded Sex Assigned at Not on file Gender Identity Not on file Sexual Orientation Not on file documented as of this encounter Procedure Notes * German, Conv Professional Security Officer - 06/12/2011 1222 EDT OPPROC LAKHANI 7 PROCEDURE / OPERATIVE REPORT NAME: TERI LAKE : 1980 MRN: [id number] DATE: 09/25/2004 SURGEON: ROBIN MEDINA MD INSURANCE POLICY ISSUE CLERK: YEIMY SOLORIO MD, COOPER MEJIA MD PREOPERATIVE [...] vagina and uterus. A pediatric Ball of 8-Albanian size was placed in the uterus and [...] cc. SPECIMENS: None. CULTURES: None. DRAINS: An 8-Albanian pediatric Ball was placed in the uterus for the patient to go home with. COMPLICATIONS: None. CONDITION: Good. d - 09/25/2004 10:29:43 - YEIMY SOLORIO MD t - 10/01/2004 09:45:21 - mt Voice ID - [id number] Document ID - [id number] cc: ROBIN MEJIA MD RESIDENT VALERIA MCCARTHY MD, REFERRING PHYSICIAN YEIMY SOLORIO MD, <Dictator> This document has been electronically signed by ROBIN MEDINA MD on 10/02/2004 16:28:36. documented in this encounter Plan of Treatment Upcoming Encounters Date Type Department Care Team (Late st Contact Info) Description 12/29/2024 10:20 EST Office Visit [facility] Rheumatology & Immunology - [address] [address] Micaela Hoff MD [address] [place] [address], [address] [place] [phone] documented as of this encounter Visit Diagnoses Not on filedocumented in this encounter Care Teams Bed Spring Maker Relationship Specialty Start Date End Date Ladonna Maurer PA [address] [place] [address] PCP - General 05/20/10 06/02/11 Yair Dow MD [address] [place] [phone] PCP - General 06/03/11 03/08/12 documented as of this encounter
--- OUTSIDE RECORDS SUMMARY | 2024-06-14 02:12 | XMS_ITS | Encounter Summary ---
Author Organization [facility] Address [address] [place] [address] Care Team Providers Care Registry Np Name Role Phone Unavailable Primary Care Provider Unavailabl e Encounter Details Date Type Department Care Team (Late st Contact Info) Description 08/09/2003 8:46 EDT Hospital Encounter [facility] - Other [address] [place] [address] Newton Evans, [address] [place] [address] Social History Tobacco Use Types Packs/Day Years [...] [facility] - [facility] [address], [place] [address] Micaela Hoff MD [address] [facility], [address] [place] [phone] documented as of this encounter Procedures Procedure [...] ? TERI CROWE ? Accession #: ? [id number] : ? 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
--- OUTSIDE RECORDS SUMMARY | 2024-06-14 02:13 | XMS_ITS | Encounter Summary ---
Author Organization [facility] [place] [address] Care Team Providers Care Expressive Therapist Name Role Phone Anuja Cai APRN Primary Care Provider [phone] Encounter Details Date Type Department Care Team (Late st Contact Info) Description 05/28/2022 Ancillary Procedure [place] [phone] Anuja Cai APRN [address] [place] [address] Social History Tobacco Use Types Packs/Day Years [...] 12:00 PM EDT Office [place] [phone] rBitt Zurita MD [facility] [address] [place], [place] [id number] documented as of this encounter Procedures Procedure Name Priority Date/Time Associated Diagnosis Comments FILM LIBRARY STORAGE ONLY DX HIP Routine 05/28/2022 12:00 AM EDT documented in this encounter Results * Film Library- Storage Only DX Hip (05/28/2022 12:00 AM EDT) Narrative [facility] - 02/02/2023 10:22 PM EDT This exam is auto-finalizing. It's purpose is for storage only. Anuja Cai APRN Fanny FILM LIBRARY ORD ERABLES Performing Organization Address City/State/[facility] Co de Phone Number [place], [place] documented in this encounter Visit Diagnoses Not on filedocumented in this encounter Care Teams Expressive Therapist Relationship Specialty Start Date End Date Anuja Cai APRN [address] [place] [address] PCP - General Internal Medicine 07/25/21 documented as of this encounter
--- OUTSIDE RECORDS SUMMARY | 2024-06-14 02:13 | XMS_ITS | Encounter Summary ---
Author Organization [facility] [place] [id number] Care Team Providers Care Pump Assembler Name Role Phone Anuja Cai APRN Primary Care Provider + [phone] Reason for Visit * Diagnostic Test (Routine) - Closed Specialty Diagnoses / Procedures Referred By Ehsan patel Referred To Contact Gastroenterology Diagnoses Heartburn EGD/Waters ON PPI - heartburn Procedures Waters Capsule pH Test EGD/Waters ON PPI - heartburn Carla Jose SHIPPING ASSISTANT [facility] [place] [address] [facility] [address] [place] [address] Referral ID Status Reason Start Date Expiration Date V isits Requested Visits Authorized [id number] Closed Consult, Test & Treat 08/19/2021 08/19/2022 1 1 Encounter Details Date Type Department Care Team (Latest Contact Info) Description 09/30/2021 1:00 PM EST Procedure visit [place] [address] Heartburn; Chest pain, unspecified type; Gastric ulcer, [...] (Waters) procedure report Patient: Teri Smith Address: [address] [place] [id number] : 1980 Referring provider: Anuja Cai Date [...] the Schuster Consensus. Gut. 2018 May; 67(7): 9946-0369. 2) Validation of the Schuster classification for GORD diagnosis: acid exposure time assessed by prolonged wireless pH monitoring in healthy controls and patients with erosive oesophagitis. Gut. 2020. doi10.1136/ptwler-5414-359039. Qasim Yang MD Section of Gastroenterology and Hepatology [facility] [place] [address] V: [phone] F: [phone] CC/ETC: Anuja Cai, SHIPPING ASSISTANT [address] [place] [address] documented in this encounter Plan of Treatment Upcoming Encounters Date Type Department Care Team (Late st Contact Info) Description 08/17/2024 12:00 PM EDT [place] [address] Britt Zurita MD [facility] [address] documented as of this encounter Procedures Procedure Name Priority Date/Time Associated Diagnosis Comments CRYPTOSPORIDIUM OOCYST ANTIGEN ([facility]/CGP/APD) Routine 09/29/2021 3:30 PM EST Heartburn Chest [...] disease, unspecified whether esophagitis present GIARDIA ANTIGEN ([facility]/CG[facility]/APD/NL) Routine 09/29/2021 3:30 PM EST Heartburn Chest pain, unspecified type Gastric ulcer, unspecified chronicity, unspecified whether gastric ulcer hemorrhage or perforation present Incontinence of feces with fecal urgency Steatorrhea Diarrhea, unspecified type Irritable bowel syndrome, unspecified type Hiatal hernia Gastroesophageal reflux disease, unspecified whether esophagitis present documented in this encounter Results * Cryptosporidium Oocyst Antigen ([facility]/CGP/APD) (09/29/2021 3:30 PM EST) Cryptosporidium Antigen Negative Negative [facility] Stool 09/29/2021 3:30 PM EST 09/30/2021 1:35 PM EST Narrative Resulting Agency Comment Spec In Lab Carla Jose SHIPPING ASSISTANT MICROBIOLOGY - GENE RAL ORDERABLES Performing Organization Address [facility] Co de Phone Number [facility] [place] [address] * Giardia antigen ([facility]/CGP/APD/[facility]H) (09/29/2021 3:30 PM EST) Giardia Antigen Negative Negative [facility] Comment:Examination for othe r intestinal parasites requires foreign travel history. Stool 09/29/2021 3:30 PM EST 09/30/2021 1:35 PM EST Narrative Resulting Agency Comment Spec In Lab Crala Jose SHIPPING ASSISTANT MICROBIOLOGY - GENE RAL ORDERABLES Performing Organization Address [facility] Co de Phone Number [facility] [place] [address] documented in this encounter Visit Diagnoses Diagnosis [...] documented as of this encounter Care Teams Pump Assembler Relationship Specialty Start Date End Date Anuja Cai APRN [address] [place] [address] PCP - General Internal Medicine 07/25/21 documented as of this encounter
--- OUTSIDE RECORDS SUMMARY | 2024-06-14 02:13 | XMS_ITS | Encounter Summary ---
Author Organization [facility] [place] [address] Care Team Providers Care Shear Setter Name Role Phone Anuja Cai APRN Primary Care Provider [phone] Encounter Details Date Type Department Care Team (Late st Contact Info) Description 12/24/2022 Ancillary Procedure [place] [phone] Anuja Cai APRN [address] [place] [address] Social History Tobacco Use Types Packs/Day Years [...] 12:00 PM EDT Office Visit [place] [phone] Britt Zurita MD [facility] [address] [place], [place] [id number] documented as of this encounter Procedures Procedure Name Priority Date/Time Associated Diagnosis Comments FILM LIBRARY STORAGE ONLY MR KNEE Routine 12/24/2022 12:00 AM EST documented in this encounter Results * Film Library- Storage Only MR Knee (12/24/2022 12:00 AM EST) Narrative [facility] - 02/02/2023 10:14 PM EDT This exam is auto-finalizing. It's purpose is for storage only. Anuja Cai APRN Fanny FILM LIBRARY ORD ERABLES Performing Organization Address City/State/[facility] Co de Phone Number [place], [place] documented in this encounter Visit Diagnoses Not on filedocumented in this encounter Care Teams Shear Setter Relationship Specialty Start Date End Date Anuja Cai APRN [address] [place] [address] PCP - General Internal Medicine 07/25/21 documented as of this encounter
--- OUTSIDE RECORDS SUMMARY | 2024-06-14 02:13 | XMS_ITS | Encounter Summary ---
Author Organization [facility] Address [facility] [place] [address] Care Team Providers Care Supervisor Graphite Name Role Phone Anuja Cai APRN Primary Care Provider [phone] Encounter Details Date Type Department Care Team [...] 12:00 PM EDT [place] [address] Britt Zurita MD [facility] [place] [address] documented as of this encounter Visit Diagnoses Not on filedocumented in this encounter Care Teams Supervisor Graphite Relationship Specialty Start Date End Date Anuja Cai APRN [address] [place], [place] [address] PCP - General Internal Medicine 07/25/21 documented as of this encounter
--- OUTSIDE RECORDS SUMMARY | 2024-06-14 02:13 | XMS_ITS | Encounter Summary ---
Author Organization [facility] [place] [address] Care Team Providers Care Furnace Utility Operator Name Role Phone Anuja Cai APRN Primary Care Provider [phone] Encounter Details Date Type Department Care Team (Latest Contact Info) Description 09/29/2021 5:28 PM EST - 09/29/2021 11:59 PM EST Hospital [place] [phone] Discharge Disposition: Home Social History Tobacco Use [...] 02/16/24 07/29/2021 fluticasone propionate (Flonase) 50 mcg/actuation [place], Suspension SPRAY ONE SPRAY IN EACH NOSTRIL [...] 12:00 PM EDT [place] [address] Britt Zurita MD [facility] [place] [address] documented as of this encounter Procedures Procedure Name Priority Date/Time Associated Diagnosis Comments CALPROTECTIN,STOOL Routine 09/29/2021 3: 30 PM EST ELASTASE, STOOL Routine 09/29/2021 3:30 PM EST documented in this encounter Results * Elastase, Stool (09/29/2021 3:30 PM EST) Elastase Stool (QST) >500 mcg/g [facility] Comment: Adult and Pediatric Reference Ranges for ??Pancreatic Elastase-1: ? Normal: ?>200 mcg/g Moderate Pancreatic ?Insufficiency: ?? 100-200 mcg/g ??Severe Pancreatic ?Insufficiency: ?<100 mcg/g Elastase-1 (E-1) assay results are expressed in mcg/g, which represent mcg E1/g feces. It is not necessary to interrupt enzyme substitution therapy. Test performed by [facility] ?[address], ?[place] [address] ? Brineyard Supervisor: Diana Fraga MD,PHD,GERARDO Test Reported by Cecile Lazaro, [employer] [facility], [address] [place], [place] Skyler Turner M.D., Ph.D., Director of Laboratories , [place] [id number] Stool Other / Unknown 09/29/2021 3 :30 PM EST 10/01/2021 9:57 AM EST Narrative Resulting Agency Comment Spec In Lab Carla Jose APRN LAB SEND OUT [place] [facility] [place] [address] * (ABNORMAL) Calprotectin, Stool (09/29/2021 3:30 PM EST) Calprotectin, Stool 342(H) <=79 mcg/g [facility] Comment: Calprotectin Concentration ? Interpretation ? < 80 mcg/g ?Normal ? 80 ? 160 mcg/g ?Borderline ? >160 mcg/g ?Elevated Stool Other / Unknown 09/29/2021 3 :30 PM EST 09/30/2021 12:32 PM EST Narrative Resulting Agency Comment Spec In Lab Carla Jose APRN BODY FLUIDS AND STO OLS ORDERABLES Performing Organization Address City/State/[facility] Co de Phone Number [facility] [place] [address] documented in this encounter Visit Diagnoses Not on filedocumented in this encounter Care Teams Furnace Utility Operator Relationship Specialty Start Date End Date Anuja Cai APRN [address] [facility] [place] [address] PCP - General Internal Medicine 07/25/21 documented as of this encounter
--- OUTSIDE RECORDS SUMMARY | 2024-06-14 02:13 | XMS_ITS | Encounter Summary ---
Author Organization [facility] [place] [address] Care Team Providers Care Silo Worker Name Role Phone Anuja Cai APRN Primary Care Provider + [phone] Encounter Details Date Type Department Care Team ([facility] st Contact Info) Description 04/16/2023 8:00 AM EDT TH Visit (TeleHealth) [place] [address] Britt Zurita MD [facility] [place] [address] Polyarthralgia Social History Tobacco Use Types Packs/Day [...] time: 30 minutes Britt Zurita MD Staff Fire Equipment [place]aire[place], [address] documented in this encounter Plan of Treatment Upcoming Encounters Date Type Department Care Team (Late st Contact Info) Description 08/17/2024 12:00 PM EDT Office [place] [address] Britt Zurita MD [facility] [place] [address] documented as of this encounter Visit Diagnoses Diagnosis Polyarthralgia Pain in joint, multiple sites documented in this encounter Care Teams Silo Worker Relationship Specialty Start Date End Date Anuja aCi, AREA CLEANER [address] [place] [address] PCP - General Internal Medicine 07/25/21 documented as of this encounter
--- OUTSIDE RECORDS SUMMARY | 2024-06-14 02:13 | XMS_ITS | Encounter Summary ---
[place] [address] Care Team Providers Care Silver Steward Name Role Phone Anuja Cai APRN Primary Care Provider + [phone] Encounter Details Date Type Department Care Team (Latest Contact Info) Description 06/03/2022 3:00 PM EDT TH Visit (TeleHealth) [place] [phone] Teri Gonzalez APRN [address] [place] [address] Diarrhea, unspecified type Social History Tobacco Use [...] this encounter Progress Notes * Teri Gonzalez, POPULATION HEALTH MANAGER - 06/03/2022 3:00 PM EDT GI MOTILITY [...] worse since January 2021. Urgent non- bloody [place] type 5-7 BMs typically 1-2 times per [...] daily. ??? fluticasone propionate (Flonase) 50 mcg/actuation [place], Suspension SPRAY ONE SPRAY IN EACH NOSTRIL [...] has a past surgical history that includes [place] tooth extraction; [place] tooth extraction; Uterine fibroid surgery; Upper Gi Endoscopy, Biopsy ([id number]) (N/A, 09/30/2021); and Colonoscopy, Diagnostic ([id number]) (N/A, 09/30/2021). Family History: family history includes [...] 2. Longstanding abdominal pain and urgent non-bloody [place] type 5-7 BMs up to 8 times [...] should be through PCP Teri Gonzalez APRN [facility] [address] documented in this encounter Plan of Treatment Upcoming Encounters Date Type Department Care Team (Late st Contact Info) Description 08/17/2024 12:00 PM EDT Office Visit Rheumatology at [facility] [place] [address] Britt Zurita MD [facility] [place] [address] documented as of this encounter Visit Diagnoses Diagnosis Diarrhea, unspecified type documented in this encounter Care Teams Silver Steward Relationship Specialty Start Date End Date Anuja Cai, POPULATION HEALTH MANAGER [address] [place] [address] PCP - General Internal Medicine 07/25/21 documented as of this encounter
--- OUTSIDE RECORDS SUMMARY | 2024-06-14 02:13 | XMS_ITS | Encounter Summary ---
Author Organization [facility] [place] [address] Care Team Providers Care Medical Records Manager Name Role Phone Anuja Cai HUANG Primary Care Provider + [phone] Encounter Details Date Type Department Care Team (Late st Contact Info) Description 01/13/2024 Orders [place] [phone] [facility] [place] [address] Right knee pain, unspecified chronicity Social History [...] 12:00 PM EDT Office [place] [phone] [facility] [place] [address] documented as of this encounter Results * [...] who have questions please contact the health primary care coordinator that requested your imaging first. ? Electronically signed by: Juliana Jensen MD, [facility] ([phone]), at 01/26/2024 2:42 PM Narrative 01/26/2024 2:42 [...] patients who have questions please contactthe health primary care coordinator that requested your imaging first. Electronically signed by: Juliana Jensen MD, [facility]([phone]), at 01/26/2024 2:42 PM Kp Erazo MD IMG DX ORDERABLES documented in this encounter Visit Diagnoses Diagnosis Right knee pain, unspecified chronicity Right knee pain, unspecified chronicity documented in this encounter Care Teams Medical Records Manager Relationship Specialty Start Date End Date Anuja Cai APRN [address] [place] [address] PCP - General Internal Medicine 07/25/21 documented as of this encounter
--- OUTSIDE RECORDS SUMMARY | 2024-06-14 02:13 | XMS_ITS | Encounter Summary ---
Author Organization [facility] [place] [address] Care Team Providers Care Client Relations Associate Name Role Phone Anuja Cai APRN Primary Care Provider + [phone] Reason for Visit * Consultation (Routine) - Closed Specialty Diagnoses / Procedures Referred By Ehsan patel Referred To Contact Rheumatology Diagnoses Arthralgia, unspecified joint Other chronic pain Other fatigue Other specified abnormal immunological findings in serum Anuja Cai APRN [address] [place] [address] [facility] [address] [place] [address] Referral ID Status Reason Start Date Expiration Date V isits Requested Visits Authorized [id number] Closed Consult, Test & Treat PCP Updated and/or Approved 02/17/2023 02/17/2024 6 6 Encounter Details Date Type Department Care Team (Late st Contact Info) Description 04/02/2023 10:00 AM EDT Office [place] [address] Britt Zurita MD [facility] [place] [address] Polyarthralgia Social History Tobacco Use [...] and she went to a hospital in [place], [place] and she was diagnosed with 'bursitis'. [...] DIAGNOSTIC performed by Guilherme Rock MD at [facility] ??? PRO UPPER GI ENDOSCOPY, BIOPSY N/A 09/30/2021 EGD WITH BIOPSY (WRVU 2.49) performed by Guilherme Rock MD at [facility] ??? UTERINE FIBROID SURGERY ??? [...] was 60 minutes. Britt Zurita [place], [address] CC: Anuja Cai APRN documented in this encounter Plan of Treatment Upcoming Encounters Date Type Department Care Team (Late st Contact Info) Description 08/17/2024 12:00 PM EDT Office [place] [address] Britt Zurita MD [facility] [place] [address] documented as of this encounter Procedures Procedure [...] RefValue ------- Porphyrins, QN, Random, U ??Uroporphyrin, Shiner ?3 ? nmol/L ?? <=30 ??Heptacarboxylpor phyrins [...] developed and its performance characteristics ?determined by [facility] in a manner consistent with CLIA ?requirements. This test has not been cleared or approved by ?the U.S. Food and Drug Administration. ?Test Performed by: ?[facility] ?[address] [id number] ?[employer]va Reactor Operator Head: Vimal Torrez M.D. Ph.D.; CLIA# [id number] [facility] Urine 04/02/2023 11:0 5 AM EDT 04/02/2023 4:37 PM EDT Narrative Resulting Agency Comment Spec In Lab Britt Zurita MD LAB SEND OUT ORDERA BLES Performing Organization Address [facility] Co de Phone Number [facility] [place] [address] * Protein/Creatinine Ratio, urine (04/02/2023 11:05 AM EDT) Creatinine, Urine 166 mg/dL [facility] Protein, Urine <6 0 - 12 mg/dL [facility] Protein / Creatinine Ratio, Urine <0.1 ratio [facility] Urine 04/02/2023 11:0 5 AM EDT 04/02/2023 11:18 AM EDT Narrative Resulting Agency Comment Spec In Lab Britt Zurita MD URINE ORDERABLES Performing Organization Address [facility] Co de Phone Number [facility] [place] [address] * (ABNORMAL) Urinalysis with reflex Culture (04/02/2023 11:05 AM EDT) Glucose, Urine Dipstick Negative Negative mg/dL [facility] Protein, Urine Dipstick Negative Negative mg/dL [facility] Bilirubin, Urine Dipstick Negative Negative mg/dL [facility] Comment: Clinical correlation required for positive Urine Bilirubin results as false positive may occur with some drugs and drug related products. If a false positive is suspected a serum total bilirubin should be considered if clinically indicated. Urobilinogen, Urine Dipstick Normal Normal mg/dL [facility] pH, Urn (dipstick) 5.5 5.0 - 8.0 [facility] Blood, Urine Dipstick Negative Negative mg/dL [facility] Ketone, Urine Dipstick Trace(A) Negative mg/dL [facility] Nitrite, Urine Dipstick Negative Negative [facility] Leukocytes, Urine Dipstick Negative Negative mcL [facility] Appearance, Urine Dipstick Clear Clear [facility] Specific [place] Urine Automated 1.020 1.005 - 1.030 [facility] Color, Urine Dipstick Yellow Yellow [facility] Reflex to Culture No [facility] Urine NS 04/02/2023 11:0 5 AM EDT 04/02/2023 11:17 AM EDT Narrative Resulting Agency Comment Spec In Lab Britt Zurita MD URINE ORDERABLES Performing Organization Address [facility] [place] [address] * (ABNORMAL) Silica Clotting Time (04/02/2023 11:00 AM EDT) Silica Clotting Time 1.37(H) <=1.19 ratio [facility] Comment: A result greater than 1.20 [...] MD HEMATOLOGY ORDERABL ES Performing Organization Address [facility] Co de Phone Number [facility] [place] [address] * dRVVT (04/02/2023 11:00 AM EDT) dRVVT 0.99 <=1.19 IU/mL [facility] Comment: A result greater than 1.20 [...] MD HEMATOLOGY ORDERABL ES Performing Organization Address [facility] Co de Phone Number [facility] [place] [address] * Lyme IgG & IgM Antibody (04/02/2023 11:00 AM EDT) [facility] Lyme Antibody Negative Negative [facility] Lyme Ab Comment Negative result does not exclude possibility of infection. [facility] Comment: Please note that as of 03/10/2023 that this testing is performed by the Special Chemistry Laboratory at [facility]. This change in testing location is associated with a change in testing methodology. Blood 04/02/2023 11:0 0 AM EDT 04/02/2023 12:52 PM EDT Narrative Resulting Agency Comment Spec In Lab Britt Zurita MD IMMUNOLOGY ORDERABL ES Performing Organization Address [facility] Co de Phone Number [facility] [place] [address] * (ABNORMAL) Angiotensin Converting Enzyme (04/02/2023 11:00 AM EDT) Pathologist [facility] Elvin (MARCH) 14(L) 16 - 85 unit/L [facility] Comment: Test Performed by: [address] [address] [employer] Operator Head: Vimal Torrez M.D. Ph.D.; CLIA# [id number] Blood 04/02/2023 11:0 0 AM EDT 04/02/2023 3:35 PM EDT Narrative Resulting Agency Comment Spec In Lab Britt Zurita MD LAB SEND OUT ORDERA BLES Performing Organization Address [facility]/ZIP Co de Phone Number [facility] [place] [address] * (ABNORMAL) Rheumatoid factor, quant (04/02/2023 11:00 AM EDT) Rheumatoid Factor 17(H) <=14 IU/mL [facility] Blood 04/02/2023 11:0 0 AM EDT 04/02/2023 11:06 AM EDT Narrative Resulting Agency Comment Spec In Lab Britt Zurita MD CHEMISTRY ORDERABLE S Performing Organization Address [facility] Co de Phone Number [facility] [place] [address] * Beta-2 glycoprotein antibodies (04/02/2023 11:00 AM EDT) Beta 2 Glycoprotein, IgG <0.8 <=6.9 unit/mL [facility] Beta 2 Glycoprotein, IgM <2.4 <=6.9 unit/mL [facility] Blood 04/02/2023 11:0 0 AM EDT 04/02/2023 12:52 PM EDT Narrative Resulting Agency Comment Spec In Lab Britt Zurita MD IMMUNOLOGY ORDERABL ES Performing Organization Address [facility] Co de Phone Number [facility] [place] [address] * Cardiolipin Antibody Screen (04/02/2023 11:00 AM EDT) Cardiolipin Antibody IgG <0.5 <=9.9 GPL-U/mL [facility] Cardiolipin Antibody IgM 2.0 <=9.9 MPL-U/mL [facility] Blood 04/02/2023 11:0 0 AM EDT 04/02/2023 12:52 PM EDT Narrative Resulting Agency Comment Spec In Lab Britt Zurita MD IMMUNOLOGY ORDERABL ES Performing Organization Address [facility] Co de Phone Number [facility] [place] [address] * (ABNORMAL) CRP, acute inflammation (04/02/2023 11:00 AM EDT) C-Reactive Protein 9.9(H) <=4.9 mg/L [facility] Blood 04/02/2023 11:0 0 AM EDT 04/02/2023 11:06 AM EDT Narrative Resulting Agency Comment Spec In Lab Britt Zurita MD CHEMISTRY ORDERABLE S Performing Organization Address [facility] Co de Phone Number [facility] [place] [address] * Sedimentation rate (04/02/2023 11:00 AM EDT) Sedimentation Rate Automated 32 2 - 37 mm/hr [facility] Comment: Effective October 12, 2019 new capillary photometric technology has resulted in a change in reference ranges. It is recommended that each ESR result be reviewed with its own age appropriate reference range. Blood 04/02/2023 11:0 0 AM EDT 04/02/2023 11:06 AM EDT Narrative Resulting Agency Comment Spec In Lab Britt Zurita MD HEMATOLOGY ORDERABL ES Performing Organization Address [facility] Co de Phone Number [facility] [place] [address] * (ABNORMAL) C4 Complement (04/02/2023 11:00 AM EDT) Complement C4 45(H) 10 - 40 mg/dL [facility] Blood 04/02/2023 11:0 0 AM EDT 04/02/2023 11:06 AM EDT Narrative Resulting Agency Comment Spec In Lab Britt Zurita MD CHEMISTRY ORDERABLE S Performing Organization Address [facility] Co de Phone Number [facility] [place] [address] * C3 Complement (04/02/2023 11:00 AM EDT) Complement C3 168 90 - 180 mg/dL [facility] Blood 04/02/2023 11:0 0 AM EDT 04/02/2023 11:06 AM EDT Narrative Resulting Agency Comment Spec In Lab Britt Zurita MD CHEMISTRY ORDERABLE S [facility] [place] [address] * Comprehensive metabolic panel (non-fasting) (04/02/2023 11:00 AM EDT) Glucose 95 65 - 199 mg/dL [facility] Comment:Diabetes: >=200 mg/d L plus symptoms Blood Urea Nitrogen 12 8 - 18 mg/dL [facility] Creatinine 0.93 0.70 - 1.20 mg/dL [facility] Sodium 138 135 - 145 mmol/L [facility] Potassium 3.8 3.5 - 5.0 mmol/L [facility] Comment: Please note: ??Patients with WBC >100,000 may have falsely elevated Potassium levels. ??For accurate Potassium quantification in these patients send serum separator tube (gold top) for subsequent determinations. ??Contact the Clinical Chemistry Laboratory if there are any questions. Chloride 101 98 - 107 mmol/L [facility] Carbon Dioxide 27 22 - 31 mmol/L [facility] Anion Gap 10 5 - 15 mmol/L [facility] Calcium 9.6 8.5 - 10.5 mg/dL [facility] Protein, Total 7.5 6.1 - 8.0 g/dL [facility] Albumin 4.7 3.2 - 5.2 g/dL [facility] Aspartate Aminotransferase 19 0 - 30 unit/L [facility] Alanine Aminotransferase 16 0 - 30 unit/L [facility] Alkaline Phosphatase 57 35 - 105 unit/L [facility] Bilirubin, Total 0.4 0.2 - 1.3 mg/dL [facility] Est Glomerular Filtration Rate 79 >=60 mL/min/1. 73 m?? [facility] Comment: This patient's estimated GFR was [...] MD CHEMISTRY ORDERABLE S Performing Organization Address City/State/[facility] Co de Phone Number [facility] [place] [address] * (ABNORMAL) LIZZIE Ab by IFA (04/02/2023 11:00 AM EDT) LIZZIE Ab Screen Test ?Result ? Flag ??Unit ??RefValue Antinuclear Ab, HEp-2 Substrate, ?Positive 1:320 ??@ ?<1:80 (Negative) ??S ? ADDITIONAL INFORMATION --------- ?Method: Immunofluorescence using HEp-2 cellular substrate. ??LIZZIE Titer: ?1:320 ??LIZZIE Pattern: ?Dense Fine Speckled ?Test Performed by: ?[facility] ?[address] [place] [address] ?[employer] Re[employer] Operator Head: Vimal Torrez M.D. Ph.D.; CLIA# [id number] ([id number]) [facility] Blood 04/02/2023 11:0 0 AM EDT 04/02/2023 3:35 PM EDT Narrative Resulting Agency Comment Spec In Lab Britt Zurita MD CHEMISTRY ORDERABLE S [facility] [address] [place] [address] * Extractable Nuclear Antigen (ROMARIO) Ab (04/02/2023 11:00 AM EDT) SS-A/Ro Ab <0.40 <=10.00 unit/mL [facility] Comment: <7 negative 7-10 equivocal >10 positive The SS-A antibody result was generated using fluoroenzyme immunoassay on the Phadia 250 analyzer. the semi-quantitative test is designed to detect IgG antibodies in human serum that are reactive to the SS-A (Ro) protein. Please note that as of 08/26/2022 that this testing is performed by the Special Chemistry Laboratory at [facility]. This change in testing location is associated with a change in testing method and reference intervals. Please review the results of this test in association with the posted reference intervals. SS-B/La Ab <0.40 <=10.00 unit/mL [facility] Comment: <7 negative 7-10 equivocal >10 positive The SS-B antibody result was generated using fluoroenzyme immunoassay on the Phadia 250 analyzer. the semi-quantitative test is designed to detect IgG antibodies in human serum that are reactive to the SS-B (La) protein. Please note that as of 08/26/2022 that this testing is performed by the Special Chemistry Laboratory at [facility]. This change in testing location is associated with a change in testing method and reference intervals. Please review the results of this test in association with the posted reference intervals. Scl-70 Ab <0.60 <=10.00 unit/mL [facility] Comment: <7 negative 7-10 equivocal >10 positive The Scl-70 antibody result was generated using fluoroenzyme immunoassay on the Phadia 250 analyzer. the semi-quantitative test is designed to detect IgG antibodies in human serum that are reactive to the Scl-70 protein. Please note that as of 08/26/2022 that this testing is performed by the Special Chemistry Laboratory at [facility]. This change in testing location is associated with a change in testing method and reference intervals. Please review the results of this test in association with the posted reference intervals. Sm (Bowen) Ab 0.90 <=10.00 unit/mL [facility] Comment: <7 negative 7-10 equivocal >10 positive The Sm antibody result was generated using fluoroenzyme immunoassay on the Phadia 250 analyzer. the semi-quantitative test is designed to detect IgG antibodies in human serum that are reactive to the Sm protein. Please note that as of 08/26/2022 that this testing is performed by the Special Chemistry Laboratory at [facility]. This change in testing location is associated with a change in testing method and reference intervals. Please review the results of this test in association with the posted reference intervals. U1RNP Ab <0.50 <=10.00 unit/mL [facility] Comment: <5 negative 5-10 equivocal >10 positive The U1RNP antibody result was generated using fluoroenzyme immunoassay on the Phadia 250 analyzer. the semi-quantitative test is designed to detect IgG antibodies in human serum that are reactive to the U1RNP protein. Please note that as of 08/26/2022 that this testing is performed by the Special Chemistry Laboratory at [facility]. This change in testing location is associated with a change in testing method and reference intervals. Please review the results of this test in association with the posted reference intervals. Centromere Ab <0.40 <=10.00 unit/mL [facility] Comment: <7 negative 7-10 equivocal >10 positive The CENP antibody result was generated using fluoroenzyme immunoassay on the Phadia 250 analyzer. the semi-quantitative test is designed to detect IgG antibodies in human serum that are reactive to the Centromere B protein. Please note that as of 08/26/2022 that this testing is performed by the Special Chemistry Laboratory at [facility]. This change in testing location is associated with a change in testing method and reference intervals. Please review the results of this test in association with the posted reference intervals. Mandi-1 Ab <0.30 <=10.00 unit/mL [facility] Comment: <7 negative 7-10 equivocal >10 positive The Mandi-1 antibody result was generated using fluoroenzyme immunoassay on the Phadia 250 analyzer. the semi-quantitative test is designed to detect IgG antibodies in human serum that are reactive to the Mandi-1 protein. Please note that as of 08/26/2022 that this testing is performed by the Special Chemistry Laboratory at [facility]. This change in testing location is associated with a change in testing method and reference intervals. Please review the results of this test in association with the posted reference intervals. Blood 04/02/2023 11:0 0 AM EDT 04/02/2023 12:52 PM EDT Narrative Resulting Agency Comment Spec In Lab Britt Zurita MD LAB SEND OUT [place] [facility] [place] [address] * DNA Antibody (Double-Stranded) (04/02/2023 11:00 AM EDT) dsDNA Ab <0.6 <=15.0 IU/mL [facility] Comment: <10 negative 10-15 equivocal >15 [...] performed by the Special Chemistry Laboratory at [facility]. This change in testing location is associated with a change is testing method and reference intervals. Please review the results of this test in association with the posted reference intervals. Blood 04/02/2023 11:0 0 AM EDT 04/02/2023 12:52 PM EDT Narrative Resulting Agency Comment Spec In Lab Britt Zurita MD LAB SEND OUT [place] [facility] [place] [address] documented in this encounter Visit Diagnoses Diagnosis Polyarthralgia Pain in joint, multiple sites documented in this encounter Care Teams Client Relations Associate Relationship Specialty Start Date End Date Anuja Cai APRN [address] [place] [address] PCP - General Internal Medicine 07/25/21 documented as of this encounter
--- OUTSIDE RECORDS SUMMARY | 2024-06-14 02:13 | XMS_ITS | Encounter Summary ---
Author Organization [facility] [place] [place] [address] Care Team Providers Care Dipper And Baker Name Role Phone Unavailable Primary Care Provider Unavailabl e Reason for Referral * Consultation (Routine) - Complete - Unable to Contact Patient Specialty Diagnoses / Procedures Referred By Ehsan patel Referred To Contact Gastroenterology Diagnoses Diarrhea Liya Richardson [facility] [address] [address] [facility] [address] [place] [phone] Referral ID Status Reason Start Date Expiration Date Visits Requested Visits Authorized [id number] Complete - Unable to Contact Patient Consult, Test & Treat 05/20/2013 11/16/2013 1 1 Reason for Visit * Reason Comments Follow-up tests Encounter Details Date Type Department Care Team ([facility] Contact Info) Description 05/20/2013 7:45 AM EDT Follow-Up Internal Medicine at [facility] [address] [place] [address] Liya Richardson [facility] [address] [address] Fatigue (Primary Dx); Arthralgia; Diarrhea; Shortness of [...] She states that she was seen by aircraft de icer installer at [facility] who had referred her to GI, but [...] GI, but never went to appt in [place] because of move - reporting frequent diarrhea, will refer to GI for further work up. - Referral to Gastroenterology documented in this encounter Plan of Treatment Upcoming Encounters Date Type Department Care Team (Late st Contact Info) Description 08/17/2024 12:00 PM EDT Office [place] [address] Britt Zurita MD [facility] [place] [address] Scheduled Referrals Name Type Priority Associated Diagnoses Order Schedule Referral to Gastroenterology Outpatient Referral Routine Diarrhea Ordered: 05/20/2013 documented as of this encounter Visit Diagnoses Diagnosis Fatigue- Primary Other malaise and fatigue Arthralgia Pain in joint, site unspecified Diarrhea Shortness of breath documented in this encounter
--- OUTSIDE RECORDS SUMMARY | 2024-06-14 02:13 | XMS_ITS | Encounter Summary ---
Author Organization [facility] Address [facility] [address] Care Team Providers Care Cnc Wood Lathe Operator Name Role Phone Anuja Cai APRN Primary Care Provider [phone] Reason for Referral * Physical Therapy (Routine) [...] unspecified whether esophagitis present Carla Jose APRN [facility] [place] [address] Robin Velásquez, PT [address] [facility] [address] [place] [address] Referral ID Status Reason Start Date Expiration Date V isits Requested Visits Authorized [id number] Closed Evaluate and Treat 08/19/2021 02/15/2022 12 12 * Diagnostic Test (Routine) - Closed Specialty Diagnoses / Procedures Referred By Ehsan patel Referred To Contact Gastroenterology Diagnoses Heartburn EGD/Waters ON PPI - heartburn Procedures Waters Capsule pH Test EGD/Waters ON PPI - heartburn Carla Jose APRN [facility] [place] [address] [facility] [place] [address] Referral ID Status Reason Start Date Expiration Date V isits Requested Visits Authorized [id number] Closed Consult, Test & Treat 08/19/2021 08/19/2022 1 1 Reason for Visit * Consultation (Routine) - Closed Specialty Diagnoses / Procedures Referred By Contac t Referred To Contact Gastroenterology Diagnoses Generalized abdominal pain Irritable bowel syndrome without diarrhea Gastro-esophageal reflux disease without esophagitis Other fecal abnormalities 08/19-abd pain/IBS/gerd Anuja Cai APRN [address] [place] [address] [facility] [place] [address] Referral ID Status Reason Start Date Expiration Date V isits Requested Visits Authorized [id number] Closed Consult, Test & Treat [facility] PCP Updated and/or Approved 07/18/2021 07/18/2022 6 6 Encounter Details Date Type Department Care Team (Latest Contact Info) Description 08/19/2021 11:00 AM EDT TH Visit (TeleHealth) [place] [id number] Carla Jose APRN [facility] [place] [address] Diarrhea, unspecified type (Primary Dx); Heartburn; Chest [...] ??? C. Difficile Screen ??? Giardia/Cryptosporidium Antigens ([facility]/CGP/APD/NLH) ??? CBC (with Diff) ??? Basic Metabolic Panel (non-fasting) ??? Calprotectin, Stool ??? Elastase, Stool ??? Referral to Physical Therapy ??? Waters Capsule pH Test ??? High Resolution Esophageal Manometry Please call the GI department to schedule the investigations if you do not hear from us within 1-2 weeks: [phone]. Please go to or any [facility] affiliated lab to get any blood work/stool [...] Jose APRN Department of Gastroenterology and Hepatology [facility] Here is some information on the different [...] disease, or Ulcerative colitis. Also if the senior trial attorney sees any polyps, they will be removed [...] and Primary Care Providers Vishnu Archer MD, [facility] + Qasim Yang MD, GERARDO Bigg Esqueda APRN + Teri Gonzalez APRN + Carla Jose APRN [facility] What are functional bowel [...] what is the impact? 15-20% of general [place] population has IBS or FD or both ??? 2nd most common cause for lost work days (after common cold) in [place] ??? Estimated $30 billion dollar cost to [place] economy per year ??? These disorders can [...] patients withimmediate onset of symptoms after infection); terminal clerk symptoms are expected in most patients however [...] to you primary care provider and/or local senior trial attorney and share this document. Treatment of functional [...] this approach benefits most patients ??? OTC (vsbm-tqc-efofyih) medications can be used for ongoing bothersome symptoms as listed below ??? Your provider (PCP or local Gastroenterology provider or [facility] Gastroenterology provider) may decide to use prescription [...] All-Bran psyllium buds, Metamucil, Konsyl, bulk psyllium (Transit App stores and bulk stores) ??? Specifically we [...] convincing medical evidence is still lacking ??? Qmuv-vcu-lclrcim supplements including probiotics are not typically evaluated [...] to decrease antibiotic-associated diarrhea and antibiotic-related infections Sctj-uyn-Bddzkpm Medications for Functional Gut Disorders Based on [...] a stool softener that is safe for assisted usage (no risk of dependency)and the dosage [...] ??? Often a combination of anti-nausea medications (ieov-ihf-uqypxsk or prescription) works better than high doses [...] for misuse/misinterpretation of this information Patient Resources [place] [employer] https://www.gastro.org/practice-guidance/ia-rfukzns-iqayjs/ topic/hbwllqtcq-nlmxj-lhcivpnq-ibs Badgut.org https://badgut.org/information-centre/e-a-ppeniehcl-topics/ibs/ AboutIBS.org https://www.aboutibs.org/ Uptodate.com https://www.uptodate.com/contents/pcovceuhj-lmytl-hvmtgzjt-lldnnt-neo-hisbjh documented in this encounter Progress Notes * [...] movement, other days 5+ BM Usually 1-2/day Elk: 5 and 6 Steatorrhea Frequent/random nocturnal stooling [...] managed Disordered Eating: Binge eating disorder 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 ??? fluticasone propionate (Flonase) 50 mcg/actuation [place], Suspension SPRAY ONE SPRAY IN EACH NOSTRIL [...] has a past surgical history that includes Carman tooth extraction; Carman tooth extraction; and Uterine fibroid surgery. Family [...] is complete The patient was located in [place] at the time of their visit. TIME SPENT WITH PATIENT Time spent reviewing records prior to this encounter on day of appointment: 10 minutes Time spent during encounter with patient including counselin minutes Time spent documenting encounter after office visit: 15 minutes Carla Jose APRN [facility] [place] [address] documented in this encounter Plan of Treatment Upcoming Encounters Date Type Department Care Team (Late st Contact Info) Description 08/17/2024 12:00 PM EDT Office Visit Rheumatology [place] [address] Britt Zurita MD [facility] [place] [address] Scheduled Orders Name Type Priority Associated Diagnoses [...] EDT) Glucose 108 65 - 199 mg/dL [facility] Comment:Diabetes: >=200 mg/d L plus symptoms Blood Urea Nitrogen 15 8 - 18 mg/dL [facility] Creatinine 1.09 0.70 - 1.20 mg/dL [facility] Sodium 140 135 - 145 mmol/L [facility] Potassium 3.6 3.5 - 5.0 mmol/L [facility] Comment: Please note: ??Patients with WBC >100,000 may have falsely elevated Potassium levels. ??For accurate Potassium quantification in these patients send serum separator tube (gold top) for subsequent determinations. ??Contact the Clinical Chemistry Laboratory if there are any questions. Chloride 101 98 - 107 mmol/L [facility] Carbon Dioxide 28 22 - 31 mmol/L [facility] Anion Gap 11 5 - 15 mmol/L [facility] Calcium 9.5 8.5 - 10.5 mg/dL [facility] Est Glomerular Filtration Rate 63 >=60 mL/min/1. 73 m?? [facility] Comment: This patient? s estimated [...] Lab Carla Jose APRN CHEMISTRY ORDERABLE S [facility] [place] [address] documented in this encounter Visit Diagnoses Diagnosis [...] present documented in this encounter Care Teams Cnc Wood Lathe Operator Relationship Specialty Start Date End Date Anuja Cai APRN [address] [place] [address] PCP - General Internal Medicine 07/25/21 documented as of this encounter
--- OUTSIDE RECORDS SUMMARY | 2024-06-14 02:13 | XMS_ITS | Encounter Summary ---
[place] [address] Care Team Providers Care Alteration Tailor Name Role Phone Anuja Cai APRN Primary Care Provider [phone] Reason for Referral * Consultation (Routine) - Closed Specialty Diagnoses / Procedures Referred By Ehsan t Referred To Contact Orthopaedics Diagnoses Disorder of bone R KNEE ACL TEAR AND OSTEOCHONDRAL LESION LATERAL FEMORAL CONDYLE Tabatha Carmen APRN [address] [place] [address] [facility] [address] [place] [phone] Referral ID Status Reason Start Date Expiration Date V isits Requested Visits Authorized [id number] Closed Consult, Test & Treat PCP Updated and/or Approved 02/03/2023 02/03/2024 6 6 Encounter Details Date Type Department Care Team (Late st Contact Info) Description 02/03/2023 Transcribe Orders eDH Incoming Referrals [phone] Tabatha Carmen APRN [address] [place] [address] Disorder of bone Social History Tobacco Use [...] PM EDT Office [place] [address] Britt Zurita MD [facility] [place] [address] Scheduled Referrals Name Type Priority Associated Diagnoses Order Schedule Referral to Orthopaedics Outpatient Referral Routine Disorder of bone Ordered: 02/03/2023 documented as of this encounter Visit Diagnoses Diagnosis Disorder of bone Disorder of bone and cartilage, unspecified documented in this encounter Care Teams Alteration Tailor Relationship Specialty Start Date End Date Anuja Cai APRN [address] [place] [address] PCP - General Internal Medicine 07/25/21 documented as of this encounter
--- OUTSIDE RECORDS SUMMARY | 2024-06-14 02:13 | XMS_ITS | Encounter Summary ---
Author Organization [place] [address] Care Team Providers Care Measurement And Verification Engineer Name Role Phone Unavailable Primary Care Provider Unavailabl e Reason for Visit * Reason Comments Other Encounter Details Date Type Department Care Team (Late st Contact Info) Description 04/25/2013 Telephone Internal Medicine at [facility] [address] [place] [address] Massiel Bonilla, PUMPER BREWERY Social History Tobacco Use Types Packs/Day Years [...] ----- Message ----- From: [place], Lab In [facility] Sent: 04/21/2013 4:15 PM To: Lyia Richardson APRN documented in this encounter Plan of Treatment Upcoming Encounters Date Type Department Care Team (Late st Contact Info) Description 08/17/2024 12:00 PM EDT Office Visit [place] [address] [facility] [place] [address] documented as of this encounter Visit Diagnoses Not on filedocumented in this encounter
--- OUTSIDE RECORDS SUMMARY | 2024-06-14 02:13 | XMS_ITS | Encounter Summary ---
Author Organization [facility] [place] [address] Care Team Providers Care Bar Helper Name Role Phone Unavailable Primary Care Provider Unavailabl e Reason for Visit * Reason Comments Colposcopy LSIL + HR HPV Encounter Details Date Type Department Care Team (Latest Contact Info) Description 05/20/2013 9:30 AM EDT Procedure visit Obstetrics [place] [phone] Tyler Billings MD [facility] OBSTETRICS [place] [address] Abnormal pap (Primary Dx); Papanicolaou smear of [...] 12:00 PM EDT Office Visit [place] [address] Britt Zurita MD [facility] [place] [address] Scheduled Orders Name Type Priority Associated Diagnoses [...] 3:35 PM EDT) Surgical Pathology Report ? [facility] ? Provider: ?? TYLER BILLINGS ?Pt. Name: ?? TERI HARO ? Acc #: ?[id number] ?Pt. ? Col Date: ?? 05/20/2013 ? [...] MD PATHOLOGY/CYTOLOGY O LAZ Performing Organization Address [facility] Co de Phone Number RUBEN BENNETT * Specimen to Pathology (NON-OR) (05/20/2013 3:35 PM EDT) AP Specimen 05/20/2013 3:35 PM EDT 05/20/2013 3:35 PM EDT Narrative RUBEN COYLEIUM - 05/20/2013 3:35 PM EDT Specimen requisition ordered. ??Separate Pathology report to follow Tyler Billings MD PATHOLOGY/CYTOLOGY O LAZ Performing Organization Address [facility] Co de Phone Number RUBEN BENNETT documented in this encounter Visit Diagnoses Diagnosis Abnormal pap- Primary Other nonspecific abnormal finding Papanicolaou smear of cervix with low grade squamous intraepithelial lesion (LGSIL) documented in this encounter
--- OUTSIDE RECORDS SUMMARY | 2024-06-14 02:13 | XMS_ITS | Encounter Summary ---
[place] [address] Care Team Providers Care Toll Test Desk Worker Name Role Phone Anuja Cai APRN Primary Care Provider [phone] Reason for Referral * Consultation (Routine) - Closed Specialty Diagnoses / Procedures Referred By Contmaya t Referred To Contact Weight and Wellness Diagnoses Obesity, unspecified classification, unspecified obesity type, unspecified whether serious comorbidity present Obstructive sleep apnea (adult) (pediatric) Anuja Cai APRN [address] [place] [address] [facility] [place] [address] Referral ID Status Reason Start Date Expiration Date V isits Requested Visits Authorized [id number] Closed Consult, Test & Treat 11/24/2022 11/24/2023 6 6 Encounter Details Date Type Department Care Team (Latest Contact Info) Description 11/24/2022 Transcribe Orders eDH Incoming Referrals [phone] Anuja Cai APRN [address] [place], [place] [id number] Obesity, unspecified classification, unspecified obesity type, unspecified [...] 12:00 PM EDT Office [place] [address] Britt Zurita MD [facility] [place] [address] Scheduled Referrals Name Type Priority Associated Diagnoses [...] (pediatric) documented in this encounter Care Teams Toll Test Desk Worker Relationship Specialty Start Date End Date Anuja Cai APRN [address] [facility] [place] [address] PCP - General Internal Medicine 07/25/21 documented as of this encounter
--- OUTSIDE RECORDS SUMMARY | 2024-06-14 02:13 | XMS_ITS | Encounter Summary ---
Author Organization [facility] [place] [address] Care Team Providers Care Lot Porter Name Role Phone Anuja Cai APRN Primary Care Provider [phone] Encounter Details Date Type Department Care Team (Latest Contact Info) Description 09/30/2021 12:02 PM EST - 09/30/2021 2:41 PM EST Hospital Encounter [place] [address] Guilherme Rock MD [facility] [place] [address] Discharge Disposition: Home Social History Tobacco Use [...] the day after the procedure, use an wokr-tor-swmomsa spray to numb your throat. Sucking on [...] occurs, please contact your Doctor. Please call [phone] before 8pm Mon-Fri with problems, questions or concerns. If you call after 8pm or on weekends, call the Hospital at [phone] and ask to speak to the Annealing Furnace Operator blood donor recruiter supervisor and the bessemer converter operator will contact that person for you. When should you call for help? Call [phone] anytime you think you may need emergency [...] any problems. Where can you learn more? [facility] View your After Visit Summary and more online at [email or web address] If you would like to provide feedback about your hospital experience, please call the Office of Patient and Family Relations at . If you have received this After Visit Summary in error, please immediately return it in person to the department, or notify the [facility] Privacy Office by calling toll free at between the hours of 8AM and 5PM to arrange for our retrieval of the documents at no cost to you. Content Version: 12.2 ?? 0134-8159 [employer]. Care instructions adapted under license by [facility]. If you have questions about a medical condition or this instruction, always ask your healthcare professional. [employer] disclaims any warranty or liability for your [...] occurs, please contact your Doctor. Please call [phone] before 8pm Mon-Fri with problems, questions or concerns. If you call after 8pm or on weekends, call the Hospital at [phone] and ask to speak to the Annealing Furnace Operator blood donor recruiter supervisor and the bessemer converter operator will contact that person for you. When should you call for help? Call [phone] anytime you think you may need emergency [...] any problems. Where can you learn more? [facility] View your After Visit Summary and more online at [email or web address] If you would like to provide [...] cost to you. Content Version: 12.2 ?? 6043-4239 [employer]. Care instructions adapted under license by [facility]. If you have questions about a medical condition or this instruction, always ask your healthcare professional. [employer] disclaims any warranty or liability for your [...] 02/16/24 07/29/2021 fluticasone propionate (Flonase) 50 mcg/actuation [place], Suspension SPRAY ONE SPRAY IN EACH NOSTRIL [...] History of stillbirth Z87.59 ??? Hx of Emna thyroiditis Z86.39 ??? Abnormal Pap smear [id number] ??? 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 EXAM: HEENT: [...] 12:00 PM EDT Office [place] [address] Britt Zurita MD [facility] [place] [address] documented as of this encounter Procedures Procedure Name Priority Date/Time Associated Diagnosis Comments SPECIMEN TO PATHOLOGY Routine 09/30/2021 1:46 PM EST SPECIMEN TO PATHOLOGY Routine 09/30/2021 1:25 PM EST SPECIMEN TO PATHOLOGY Routine 09/30/2021 1:25 PM EST SPECIMEN TO PATHOLOGY Routine 09/30/2021 1:25 PM EST SURGICAL PATHOLOGY REPORT Routine 09/30/2021 1:19 PM EST Colonoscopy, Diagnostic ([id number]) 09/30/2021 1:03 PM EST Colonoscopy with biopsies to rule out IBD/microscopic colitis EGD/Waters ON PPI Upper Gi Endoscopy, Biopsy ([id number]) 09/30/2021 1:03 PM EST Colonoscopy with biopsies to rule out IBD/microscopic colitis EGD/Waters ON PPI UPPER GI ENDOSCOPY Routine 09/30/2021 12 :19 PM EST COLONOSCOPY Routine 09/30/2021 12:18 PM EST documented in this encounter Results * Specimen to Pathology (09/30/2021 1:46 PM EST) AP Specimen 09/30/2021 1:46 PM EST 09/30/2021 1:46 PM EST Narrative [facility] - 09/30/2021 1:46 PM EST Specimen requisition ordered. ??Separate Pathology report to follow Guilherme Rock MD PATHOLOGY/CYTOLOGY O RDERAVENICE [facility] [place] [address] * Specimen to Pathology (09/30/2021 1:25 PM EST) AP Specimen 09/30/2021 1:25 PM EST 09/30/2021 1:25 PM EST Narrative [facility] - 09/30/2021 1:25 PM EST Specimen requisition ordered. ??Separate Pathology report to follow Guilherme Rock MD PATHOLOGY/CYTOLOGY O LAZ Performing Organization Address [facility] [place] [address] * Specimen to Pathology (09/30/2021 1:25 PM EST) AP Specimen 09/30/2021 1:25 PM EST 09/30/2021 1:25 PM EST Narrative [facility] - 09/30/2021 1:25 PM EST Specimen requisition ordered. ??Separate Pathology report to follow Guilherme Rock MD PATHOLOGY/CYTOLOGY O LAZ Performing Organization Address [facility] [place] [address] * Specimen to Pathology (09/30/2021 1:25 PM EST) AP Specimen 09/30/2021 1:25 PM EST 09/30/2021 1:25 PM EST Narrative [facility] - 09/30/2021 1:25 PM EST Specimen requisition ordered. ??Separate Pathology report to follow Guilherme Rock MD PATHOLOGY/CYTOLOGY O LAZ Performing Organization Address [facility] [place] [address] * Surgical Pathology Report (09/30/2021 1:19 PM EST) Final Diagnosis [id number] ? Location: 4T; EA07; A The signing [...] Carmen Verified: ??10/07/2021 13:51 ??Pathologist Performed at: ??-[facility] Dept. of Pathology, [place], [place] SPECIMEN(S) SUBMITTED A - Duodenum R/O [...] labeled D1-D3. ??sns 10/07/2021 1:51 PM EST [facility] GI Biopsy 09/30/2021 1:19 PM EST 09/30/2021 1:19 PM EST GI Biopsy 09/30/2021 1:19 PM EST 09/30/2021 1:19 PM EST GI Biopsy 09/30/2021 1:19 PM EST 09/30/2021 1:19 PM EST GI Biopsy 09/30/2021 1:19 PM EST 09/30/2021 1:19 PM EST Guilherme Rock MD PATHOLOGY/CYTOLOGY O RDERAVENICE [facility] [place] [address] * UPPER GI ENDOSCOPY (09/30/2021 12:19 PM EST) UPPER GI ENDOSCOPY [facility] Endoscopy Procedure Date: 09/30/2021 12:19 PM ? Patient Name: Teri Smith ? Date of : 1980 ? Age: 41 ? Order #: [id number] ? Instrument Name: [id number] ? Procedure: ? Upper GI endoscopy Indications: [...] * COLONOSCOPY (09/30/2021 12:18 PM EST) COLONOSCOPY [facility] Endoscopy ___ Procedure Date: 09/30/2021 12:18 PM ? Patient Name: Teri Smith ? Date of : 1980 ? Age: 41 ? Order #: [id number] ? Instrument Name: [id number] ? ___ Procedure: ? Colonoscopy Indications: ? [...] preparation was evaluated using ? the BBPS (Posey Bowel Preparation ? Scale) with scores of: [...] Julio Mayes RN)1315 (Given - Provider: Julio Myaes RN)1318 (Given - Provider: Julio Mayes RN)1330 (Given - Provider: Julio Mayes RN)1336 (Given - Provider: Julio Mayes RN) documented in this encounter Additional Health Concerns Infection Onset Date Last Indicated Resolved Time Rule Out C. difficile 09/30/2021 09/29/20212020 12:58 PM EST documented as of this encounter Care Teams Lot Porter Relationship Specialty Start Date End Date Anuja Cai APRN [address] [place] [address] PCP - General Internal Medicine 07/25/21 documented as of this encounter
--- OUTSIDE RECORDS SUMMARY | 2024-06-14 02:13 | XMS_ITS | Encounter Summary ---
[place] [address] Care Team Providers Care Scrap Carrier Name Role Phone TrellUbaldoe Barbara ENCINAS Primary Care Provider + [phone] Encounter Details Date Type Department Care Team (Late Contact Info) Description 08/04/2022 Telephone [place] [address] Deja Gonzales Social History Tobacco Use Types [...] calls can be handled by: Any Motility Fan Mail Clerk documented in this encounter Plan of Treatment Upcoming Encounters Date Type Department Care Team (Late Contact Info) Description 08/17/2024 12:00 PM EDT Office [place] [address] Britt Zurita MD [facility] [place] [address] documented as of this encounter Visit Diagnoses Not on filedocumented in this encounter Care Teams Scrap Carrier Relationship Specialty Start Date End Date Anuja Cai APRN [address] [place] [address] PCP - General Internal Medicine 07/25/21 documented as of this encounter
--- OUTSIDE RECORDS SUMMARY | 2024-06-14 02:13 | XMS_ITS | Encounter Summary ---
[place] [address] Care Team Providers Care Merchandiser Retail Representative Name Role Phone Anuja Cai APRN Primary Care Provider + [phone] Encounter Details Date Type Department Care Team ([facility] st Contact Info) Description 08/23/2021 [place] [address] Skyler Velasquez Social History Tobacco Use Types [...] CLINICAL SAFETY CHECKLIST 08/23/2021 Skyler Smith [address] [facility] [address] [id number] : 1980 REFERRING PROVIDER: Carla PRIMARY CARE [...] their provider to consider alternative testing. The contract analyst should also contact the provider's office directly tonotify them that we are unable to schedule due to a contraindication to testing. Then, delete the remainder of this checklist and close out the referral. 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 Have you ever had a/an Upper Endoscopy & Colonoscopy before? Yes: Date egd uv 2012, colo [facility] 2012 If yes, did you have [...] to patient: You must have a responsible libertarian who will drive you to your procedure, [...] 12:00 PM EDT Office [place] [address] Britt Zurita MD [facility] [place] [address] documented as of this encounter Visit Diagnoses Not on filedocumented in this encounter Care Teams Merchandiser Retail Representative Relationship Specialty Start Date End Date Anuja Cai APRN [address] [place] [address] PCP - General Internal Medicine 07/25/21 documented as of this encounter
--- OUTSIDE RECORDS SUMMARY | 2024-06-14 02:13 | XMS_ITS | Encounter Summary ---
Author Organization [facility] [place] [address] Care Team Providers Care Director Of Education Name Role Phone Unavailable Primary Care Provider Unavailabl e Reason for Visit * Reason Comments Thyroid Problem Encounter Details Date Type Department Care Team ([facility] st Contact Info) Description 02/22/2014 3:00 PM EDT Office [place] [address] Camila Beaver MD [facility] [place] [address] Hypothyroidism (Primary Dx) Discharge Disposition: Home Social [...] that weight since then. Saw Endocrinology at [facility] -- blood work and ultrasound diagnosed [...] were negative. Was sent to Rheumatology at [facility] - no lupus or fibromyalgia. Was [...] stone Past Surgical History Procedure Date ??? [place] tooth extraction ??? [place] tooth extraction ??? Uterine fibroid surgery Family [...] evaluation. Cate Moran DO Fellow in Endocrinology [facility] Dept of Endocrinology Office: [phone] Pager: [phone] documented in this encounter Plan of Treatment Upcoming Encounters Date Type Department Care Team (Late st Contact Info) Description 08/17/2024 12:00 PM EDT [place] [address] Britt Zurita MD [facility] [place] [address] documented as of this encounter Procedures Procedure [...] (02/22/2014 5:18 PM EDT) Cortisol 37.1 mcg/dL [facility] Comment: Reference ranges: ??AM (7-10am): ??6.2-19.4 mcg/dL ??PM (4-8pm): ??2.3-12.3 mcg/dL Blood specimen (specimen) 02/22/2014 5:18 PM EDT 02/22/2014 5:21 PM EDT Narrative Resulting Agency Comment Spec In Lab Camila Beaver MD CHEMISTRY ORDERAB LES Performing Organization Address [facility] Co de Phone Number [facility] * Cortisol (02/22/2014 4:09 PM EDT) Cortisol 6.3 mcg/dL [facility] Comment: Reference ranges: ??AM (7-10am): ??6.2-19.4 mcg/dL ??PM (4-8pm): ??2.3-12.3 mcg/dL Blood specimen (specimen) 02/22/2014 4:09 PM EDT 02/22/2014 4:18 PM EDT Narrative Resulting Agency Comment Spec In Lab Camila Beaver MD CHEMISTRY ORDERAB LES Performing Organization Address City/State/[facility] Co de Phone Number [facility] * (ABNORMAL) VIT D Total Evaluation (02/22/2014 4:09 PM EDT) Pathologist [facility] Vitamin D Total 25 OH 24(L) 30 [...] insufficient or deficient. http://www.kidney.org/professionals/KDOQI/guidelines_bone/Guide7.htm http://nof.org/files/nof/public/content/clinicalupdates/clinicalupdates/Issue2 5VitaminD/2012_VitaminD.html [employer] iSYS Vitamin D Immunoassay detects both 25-OH Vitamin D2 and 25-OH Vitamin D3, but only a total Vitamin D concentration is reported. Blood specimen (specimen) 02/22/2014 4:09 PM EDT 02/22/2014 4:18 PM EDT Narrative Resulting Agency Comment Spec In Lab Camila Beaver MD CHEMISTRY ORDERAB LES [facility] * (ABNORMAL) Comprehensive metabolic panel (non-fasting) (02/22/2014 4:09 PM EDT) [facility] Glucose 70 60 - 199 mg/dL [facility] Comment:Diabetes: >=200 mg/d L plus symptoms Blood Urea Nitrogen 11 8 - 18 mg/dL [facility] Creatinine 0.83 0.70 - 1.20 mg/dL [facility] Comment: Please note that the pediatric reference intervals supplied above were not validated at [facility]. Results from pediatric patients should be interpreted [...] S67-74 Estimated Average Glucose 97 mg/dL [facility] Comment: eAG equivalents for HbA1c percentages: HbA1c(%) [...] into estimated average glucose values. ??Diabetes Care 2008:31(8):9372-5127. Blood specimen (specimen) 02/22/2014 4:09 PM EDT 02/22/2014 4:18 PM EDT Narrative Resulting Agency Comment Spec In Lab Camila Beaver MD CHEMISTRY ORDERAB LES [facility] documented in this encounter Visit Diagnoses [...]
--- OUTSIDE RECORDS SUMMARY | 2024-06-14 02:13 | XMS_ITS | Encounter Summary ---
[place] [address] Care Team Providers Care Licensed Guide Name Role Phone Anuja Cai APRN Primary Care Provider + [phone] Reason for Referral * Allergy Testing (Routine) - Closed Specialty Diagnoses / Procedures Referred By Contmaya t Referred To Contact Allergy Diagnoses Other allergy status, other than to drugs and biological substances Allergy to other foods Anuja Cai APRN [address] [place] [address] [facility] Allergy [address] [place] [address] Referral ID Status Reason Start Date Expiration Date V isits Requested Visits Authorized [id number] Closed Consult, Test & Treat PCP Updated and/or Approved 11/24/2022 11/24/2023 6 6 Encounter Details Date Type Department Care Team (Latest Contact Info) Description 11/24/2022 Transcribe Orders eDH Incoming Referrals [phone] Anuja Cai APRN [address] [place], [place] [id number] Other allergy status, other than to drugs [...] 12:00 PM EDT [place] [address] Britt Zurita MD [facility] [address] Scheduled Referrals Name Type Priority Associated Diagnoses Orde r Schedule Referral to Allergy Outpatient Referral Routine Other allergy status, other than to drugs and biological substances Allergy to other foods Ordered: 11/24/2022 documented as of this encounter Visit Diagnoses Diagnosis Other allergy status, other than to drugs and biological substances Allergy to other foods documented in this encounter Care Teams Licensed Guide Relationship Specialty Start Date End Date Anuja Cai APRN [address] [place] [address] PCP - General Internal Medicine 07/25/21 documented as of this encounter
--- OUTSIDE RECORDS SUMMARY | 2024-06-14 02:13 | XMS_ITS | Encounter Summary ---
Author Organization [place] [address] Care Team Providers Care Radio Director Name Role Phone Unavailable Primary Care Provider Unavailabl e Reason for Referral * Consultation (Routine) - Closed Specialty Diagnoses / Procedures Referred By Contmaya t Referred To Contact Obstetrics and Gynecology Diagnoses Abnormal Pap smear Liya Silva GIFTED PROGRAM TEACHER [facility] [address] [place] [address] [facility] Order Checker [address] [place] [phone] Referral ID Status Reason Start Date Expiration Date V isits Requested Visits Authorized [id number] Closed Consult, Test & Treat 04/25/2013 10/22/2013 1 1 Encounter Details Date Type Department Care Team (Late st Contact Info) Description 04/25/2013 Orders Only Internal Medicine at [facility] [address] [place] [address] Liya Silva [facility] [address] [place] [address] Abnormal Pap smear (Primary Dx); HPV in [...] LSIL and HPV positive. Will refer to ELEMENTARY READING TUTOR for further evaluation. documented in this encounter Plan of Treatment Upcoming Encounters Date Type Department Care Team (Late st Contact Info) Description 08/17/2024 12:00 PM EDT Office [place] [address] Britt Zurita MD [facility] [place] [address] Scheduled Referrals Name Type Priority Associated Diagnoses Orde r Schedule Referral to Ob-[facility] Custodian Outpatient Referral Routine Abnormal Pap smear Ordered: 04/25/2013 documented as of this encounter Visit Diagnoses Diagnosis Abnormal Pap smear- Primary Other nonspecific abnormal finding HPV in female Human papillomavirus in conditions classified elsewhere and of unspecified site documented in this encounter
--- OUTSIDE RECORDS SUMMARY | 2024-06-14 02:13 | XMS_ITS | Encounter Summary ---
Author Organization [facility] [place] [address] Care Team Providers Care Microstrategy Reports Developer Name Role Phone Anuja Cai APRN Primary Care Provider + [phone] Reason for Referral * Physical Therapy (Routine) - Authorized Specialty Diagnoses / Procedures Referred By Ehsan patel Referred To Contact Physical Therapy Diagnoses Right knee pain, unspecified chronicity Kp Erazo MD [facility] [place] [address] Physical Therapy, [address] [address] Referral ID Status Reason Start Date Expiration Date Visits Requested Visits Authorized [id number] Authorized Evaluate and Treat 01/26/2024 07/24/2024 12 [...] OSTEOCHONDRAL LESION LATERAL FEMORAL CONDYLE Tabatha Carmen, HEALTH PRACTICE MANAGER [address] [place] [address] [facility] Orthopaedics [address] [place] [phone] Referral ID Status Reason Start Date Expiration Date V isits Requested Visits Authorized [id number] Closed Consult, Test & Treat PCP Updated and/or Approved 02/03/2023 02/03/2024 6 6 Encounter Details Date Type Department Care Team (Late st Contact Info) Description 01/26/2024 1:00 PM EDT Office [place] [address] Kp Erazo MD [facility] [place] [address] Right knee pain, unspecified chronicity (Primary Dx) [...] me at the request of Tabatha Carmen, HEALTH PRACTICE MANAGER [address] [place] [address] for the above chief complaint. HPI: Teri [...] DIAGNOSTIC performed by Guilherme Rock MD at [facility] ENDOSCOPY PRO UPPER GI ENDOSCOPY, BIOPSY N/A 09/30/2021 EGD WITH BIOPSY (WRVU 2.49) performed by Guilherme Rock MD at [facility] ENDOSCOPY UTERINE FIBROID SURGERY WISDOM TOOTH EXTRACTION [...] seen in conjunction with Dr. Erazo. Gregory Hearn MD Orthopaedic Surgery - PGY3 Pager: [phone] documented in this encounter Plan of Treatment Upcoming Encounters Date Type Department Care Team (Late st Contact Info) Description 08/17/2024 12:00 PM EDT Office [place] [address] Britt Zurita MD [facility] [place] [address] Scheduled Referrals Name Type Priority Associated Diagnoses Orde r Schedule Referral to Physical Therapy Outpatient Referral Routine Right knee pain, unspecified chronicity Ordered: 01/26/2024 documented as of this encounter Visit Diagnoses Diagnosis Right knee pain, unspecified chronicity- Primary documented in this encounter Care Teams Microstrategy Reports Developer Relationship Specialty Start Date End Date Anuja Cai APRN [address] [place] [address] PCP - General Internal Medicine 07/25/21 documented as of this encounter
--- OUTSIDE RECORDS SUMMARY | 2024-06-14 02:13 | XMS_ITS | Encounter Summary ---
Author Organization [facility] Address [facility] [place] [place] [address] Care Team Providers Care License Distributor Name Role Phone Unavailable Primary Care Provider Unavailabl e Encounter Details Date Type Department Care Team (Late st Contact Info) Description 04/26/2013 Telephone Family Medicine at [facility] [address] [place] [address] Liya Silva APRN [facility] [place] [address] Social History Tobacco Use Types Packs/Day Years [...] 12:00 PM EDT Office [place] [address] Britt Zurita MD [facility] [place] [address] documented as of this encounter Visit Diagnoses Not on filedocumented in this encounter
--- OUTSIDE RECORDS SUMMARY | 2024-06-14 02:13 | XMS_ITS | Encounter Summary ---
Author Organization [facility] [place] [address] Care Team Providers Care Access Developer Name Role Phone Anuja Cai APRN Primary Care Provider [phone] Encounter Details Date Type Department Care Team (Late st Contact Info) Description 09/30/2021 1:00 PM EST - 09/30/2021 2:00 PM EST [place] [address] Guilherme Rock MD [facility] [place] [place] [address] EGD WITH BIOPSY (WRVU 2.39) Social History [...] the day after the procedure, use an zkrp-ezo-ukwnlep spray to numb your throat. Sucking on [...] occurs, please contact your Doctor. Please call [phone] before 8pm Mon-Fri with problems, questions or concerns. If you call after 8pm or on weekends, call the Hospital at [phone] and ask to speak to the Emergency Preparedness Manager telephone advice nurse and the proof operator will contact that person for you. When should you call for help? Call [phone] anytime you think you may need emergency [...] any problems. Where can you learn more? [facility] View your After Visit Summary and more online at [email or web address] If you would like to provide feedback about your hospital experience, please call the Office of Patient and Family Relations at . If you have received this After Visit Summary in error, please immediately return it in person to the department, or notify the [facility] Privacy Office by calling toll free at between the hours of 8AM and 5PM to arrange for our retrieval of the documents at no cost to you. Content Version: 12.2 ?? 9214-2462 [employer]. Care instructions adapted under license by [facility]. If you have questions about a medical condition or this instruction, always ask your healthcare professional. [employer] disclaims any warranty or liability for your [...] occurs, please contact your Doctor. Please call [phone] before 8pm Mon-Fri with problems, questions or concerns. If you call after 8pm or on weekends, call the Hospital at [phone] and ask to speak to the Emergency Preparedness Manager telephone advice nurse and the proof operator will contact that person for you. When should you call for help? Call 501 anytime you think you may need emergency [...] any problems. Where can you learn more? [facility] View your After Visit Summary and more online at [email or web address] If you would like to provide feedback [...] cost to you. Content Version: 12.2 ?? 0534-2822 [employer]. Care instructions adapted under license by [facility]. If you have questions about a medical condition or this instruction, always ask your healthcare professional. [employer] disclaims any warranty or liability for your [...] 02/16/24 07/29/2021 fluticasone propionate (Flonase) 50 mcg/actuation [place], Suspension SPRAY ONE SPRAY IN EACH NOSTRIL [...] Mena thyroiditis Z86.39 ??? Abnormal Pap smear [id number] ??? 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 EXAM: HEENT: [...] 12:00 PM EDT [place] [address] [facility] [place] [address] documented as of this encounter Procedures Procedure Name Priority Date/Time Associated Diagnosis Comments SPECIMEN TO PATHOLOGY Routine 09/30/2021 1:46 PM EST SPECIMEN TO PATHOLOGY Routine 09/30/2021 1:25 PM EST SPECIMEN TO PATHOLOGY Routine 09/30/2021 1:25 PM EST SPECIMEN TO PATHOLOGY Routine 09/30/2021 1:25 PM EST SURGICAL PATHOLOGY REPORT Routine 09/30/2021 1:19 PM EST Colonoscopy, Diagnostic ([id number]) 09/30/2021 1:03 PM EST Colonoscopy with biopsies to rule out IBD/microscopic colitis EGD/Waters ON PPI Upper Gi Endoscopy, Biopsy ([id number]) 09/30/2021 1:03 PM EST Colonoscopy with biopsies to rule out IBD/microscopic colitis EGD/Waters ON PPI UPPER GI ENDOSCOPY Routine 09/30/2021 12 :19 PM EST COLONOSCOPY Routine 09/30/2021 12:18 PM EST documented in this encounter Results * Specimen to Pathology (09/30/2021 1:46 PM EST) AP Specimen 09/30/2021 1:46 PM EST 09/30/2021 1:[address] [facility] - 09/30/2021 1:46 PM EST Specimen requisition ordered. ??Separate Pathology report to follow Guilherme Rock MD PATHOLOGY/CYTOLOGY O RDERAVENICE [facility] [place] [address] * Specimen to Pathology (09/30/2021 1:25 PM EST) AP Specimen 09/30/2021 1:25 PM EST 09/30/2021 1:[address] [facility] - 09/30/2021 1:25 PM EST Specimen requisition ordered. ??Separate Pathology report to follow Guilherme Rock MD PATHOLOGY/CYTOLOGY O LAZ Performing Organization Address [facility] [place] [address] * Specimen to Pathology (09/30/2021 1:25 PM EST) AP Specimen 09/30/2021 1:25 PM EST 09/30/2021 1:[address] [facility] - 09/30/2021 1:25 PM EST Specimen requisition ordered. ??Separate Pathology report to follow Guilherme Rock MD PATHOLOGY/CYTOLOGY O LAZ Performing Organization Address [facility] [place] [place] [address] * Specimen to Pathology (09/30/2021 1:25 PM EST) AP Specimen 09/30/2021 1:25 PM EST 09/30/2021 1:[address] [facility] - 09/30/2021 1:25 PM EST Specimen requisition ordered. ??Separate Pathology report to follow Guilherme Rock MD PATHOLOGY/CYTOLOGY O LAZ Performing Organization Address [facility] [place] [address] * Surgical Pathology Report (09/30/2021 1:19 PM EST) Final Diagnosis [id number] ? Location: 4T; EA07; A The signing [...] Carmen Verified: ??10/07/2021 13:51 ??Pathologist Performed at: ??-[facility]. [place], [place], [place] SPECIMEN(S) SUBMITTED A - Duodenum R/O [...] labeled D1-D3. ??sns 10/07/2021 1:[address] [facility] GI Biopsy 09/30/2021 1:19 PM EST 09/30/2021 1:19 PM EST GI Biopsy 09/30/2021 1:19 PM EST 09/30/2021 1:19 PM EST GI Biopsy 09/30/2021 1:19 PM EST 09/30/2021 1:19 PM EST GI Biopsy 09/30/2021 1:19 PM EST 09/30/2021 1:19 PM EST Guilherme Rock MD PATHOLOGY/CYTOLOGY Lisa NESBITT [facility] [place] [address] * UPPER GI ENDOSCOPY (09/30/2021 12:19 PM EST) UPPER GI ENDOSCOPY [facility] Endoscopy Procedure Date: 09/30/2021 12:19 PM ? Patient Name: Teri Smith ? Date of : 1980 ? Age: 41 ? Order #: [id number] ? Instrument Name: [id number] ? Procedure: ? Upper GI endoscopy Indications: [...] * COLONOSCOPY (09/30/2021 12:18 PM EST) COLONOSCOPY [facility] Endoscopy ___ Procedure Date: 09/30/2021 12:18 PM ? Patient Name: Teri Smith ? Date of : 1980 ? Age: 41 ? Order #: [id number] ? Instrument Name: [id number] ? ___ Procedure: ? Colonoscopy Indications: ? [...] preparation was evaluated using ? the BBPS ([place] Bowel Preparation ? Scale) with scores of: [...] Provider: Julio Mayes RN)1318 (Given - Provider: Juilo Mayes RN)1330 (Given - Provider: Julio Mayes [...] documented as of this encounter Care Teams Access Developer Relationship Specialty Start Date End Date Anuja Cai APRN [address] [place] [address] PCP - General Internal Medicine 07/25/21 documented as of this encounter
--- OUTSIDE RECORDS SUMMARY | 2024-06-14 02:13 | XMS_ITS | Encounter Summary ---
Author Organization [facility] [place] [address] Care Team Providers Care Flame Burner Name Role Phone Unavailable Primary Care Provider Unavailabl e Encounter Details Date Type Department Care Team (Late st Contact Info) Description 04/10/2013 9:36 AM EDT - 04/10/2013 10:10 AM EDT [place] [address] Skyler Torrez PA [address] [place] [address] EMERGENCY DEPT, [facility] [place] [address] Otitis media (Primary Dx) Discharge Disposition: Home [...] IN ADULTS (OTITIS MEDIA): AFTER YOUR VISIT (SURINAMESE) documented in this encounter Medications at Time [...] 12:00 PM EDT Office [place] [address] Britt Zurita MD [facility] [place] [address] documented as of this encounter Visit Diagnoses Diagnosis Otitis media- Primary Unspecified otitis media documented in this encounter
--- OUTSIDE RECORDS SUMMARY | 2024-06-14 02:13 | XMS_ITS | Encounter Summary ---
Author Organization [facility] [place] [address] Care Team Providers Care Train Examiner Name Role Phone Unavailable Primary Care Provider Unavailabl e Reason for Visit * Reason Comments Otalgia Encounter Details Date Type Department Care Team ([facility] st Contact Info) Description 04/20/2013 7:31 AM EDT - 04/20/2013 7:49 AM EDT [place] [address] Ilia Johnson MD [facility] [place] [address] Acute serous otitis media (Primary Dx) Discharge [...] twice a day x3 days. Oral decongestants [id number]-rav-[id number]. Followup with primary care physician if no [...] 12:00 PM EDT Office [place] [address] Britt Zurita MD [facility] [place] [address] documented as of this encounter Visit Diagnoses Diagnosis Acute serous otitis media- Primary documented in this encounter
--- OUTSIDE RECORDS SUMMARY | 2024-06-14 02:13 | XMS_ITS | Encounter Summary ---
Author Organization [facility] [place] [address] Care Team Providers Care Accounts Payable Associate Name Role Phone Anuja Cai APRN Primary Care Provider + [phone] Encounter Details Date Type Department Care Team (Latest Contact Info) Description 08/23/2021 9:05 AM EDT Laboratory Appointment Lab [address] [place] [address] Heartburn; Chest pain, unspecified type; [...] 12:00 PM EDT Office [place] [address] Britt Zurita MD [facility] [place] [address] documented as of this encounter Procedures Procedure [...] LABORATORY Neutrophil Absolute 4.91 1.70 - 6.10 x10(3)/[facility] Lymph % 21.7 % [facility] Lymphocytes Abs 1.6 0.9 - 3.2 x10(3)/[facility] Monocyte % 8.4 % [facility] Monocyte Abs 0.6 0.3 - 0.9 x10(3)/[facility] Eos % 1.5 % [facility] Eosinophils Abs 0.1 0.0 - 0.4 x10(3)/[facility] Basophil % 0.4 % [facility] Baso Absolute 0.0 0.0 - 0.1 x10(3)/[facility] Immature Gran % 0.40 % [facility] Comment: Immature granulocytes(IG's)percentage and absolute count will include metamyelocytes, myelocytes, and promyelocytes. Blood smears from CBCs yielding IG's will be scanned manually for concordance. If this scan disagrees with the automated IG or if promyelocytes are noted, a manual differential will be performed. Immature Gran Absolute 0.03 0.00 - 0.04 x10(3)/[facility] Blood 08/23/2021 9:24 AM EDT 08/23/2021 9:33 AM EDT Narrative Resulting Agency Comment Spec In Lab Carla A Rebeca ENCINAS HEMATOLOGY ORDERABL ES [facility] [place] [address] * (ABNORMAL) Hemogram (08/23/2021 9:24 AM EDT) White Blood Cell 7.3 4.0 - 9.5 x10(3)/mc L [facility] Red Blood Cell 4.56 4.00 - 5.21 x10(6)/mc L [facility] Hemoglobin 12.7 11.7 - 15.5 g/dL [facility] Hematocrit 37.6 35.7 - 45.8 % [facility] Mean Cell Volume 82.5(L) 82.6 - 94.4 fL [facility] Mean Cell Hemoglobin 27.9 27.1 - 32.0 pg [facility] Mean Cell Hemoglobin Concentration 33.8 31.7 - 35.0 g/dL [facility] Platelet 359(H) 145 - 357 x10(3)/mc L [facility] RDW Standard Deviation 39.0 37.0 - 46.0 fL [facility] RDW coefficient of variation 13.0 11.5 - 14.1 % [facility] Mean Platelet Volume 10.1 7.6 - 12.9 fL [facility] NRBC% auto 0.0 % [facility] NRBC Absolute 0.000 0.000 - 0.000 x10(3)/mc L [facility] Blood 08/23/2021 9:24 AM EDT 08/23/2021 9:33 AM EDT Narrative Resulting Agency Comment Spec In Lab Carla Jose HUANG HEMATOLOGY ORDERABL ES [facility] [place] [address] * Basic Metabolic Panel (non-fasting) (08/23/2021 9:24 AM EDT) Glucose 108 65 - 199 mg/dL [facility] Comment:Diabetes: >=200 mg/d L plus symptoms Blood Urea Nitrogen 15 8 - 18 mg/dL [facility] Creatinine 1.09 0.70 - 1.20 mg/dL [facility] Sodium 140 135 - 145 mmol/L [facility] Potassium 3.6 3.5 - 5.0 mmol/L [facility] Comment: Please note: ??Patients with WBC >100,000 may have falsely elevated Potassium levels. ??For accurate Potassium quantification in these patients send serum separator tube (gold top) for subsequent determinations. ??Contact the Clinical Chemistry Laboratory if there are any questions. Chloride 101 98 - 107 mmol/L [facility] Carbon Dioxide 28 22 - 31 mmol/L [facility] Anion Gap 11 5 - 15 mmol/L [facility] Calcium 9.5 8.5 - 10.5 mg/dL [facility] Est Glomerular Filtration Rate 63 >=60 mL/min/1. 73 m?? [facility] Comment: This patient? s [...] Lab Carla Jose APRN CHEMISTRY ORDERABLE S [facility] [place] [address] documented in this encounter Visit Diagnoses Diagnosis [...] present documented in this encounter Care Teams Accounts Payable Associate Relationship Specialty Start Date End Date Anuja Cai APRN [address] [facility] [place] [address] PCP - General Internal Medicine 07/25/21 documented as of this encounter
--- OUTSIDE RECORDS SUMMARY | 2024-06-14 02:13 | XMS_ITS | Encounter Summary ---
[place] [address] Care Team Providers Care Historian Dramatic Arts Name Role Phone TrellAnuja APRN Primary Care Provider + [phone] Encounter Details Date Type Department Care Team (Late Contact Info) Description 11/28/2021 Telephone [place] [phone] Ranjana Auguste CMA GASTROENTEROLOGY DEPT Social History [...] 12:00 PM EDT Office [place] [address] Britt Zurita MD [facility] [place] [address] documented as of this encounter Visit Diagnoses Not on filedocumented in this encounter Care Teams Historian Dramatic Arts Relationship Specialty Start Date End Date Anuja Cai APRN [address] [place] [address] PCP - General Internal Medicine 07/25/21 documented as of this encounter
--- OUTSIDE RECORDS SUMMARY | 2024-06-14 02:13 | XMS_ITS | Encounter Summary ---
Author Organization [facility] Address [facility] [place] [address] Care Team Providers Care Decorating Equipment Setter Name Role Phone Unavailable Primary Care Provider Unavailabl e Reason for Visit * Reason Onset Date Comments Labs Only 08/11/2013 Encounter Details Date Type Department Care Team (Late st Contact Info) Description 08/11/2013 Telephone Family Medicine at [facility] [address] [place] [address] Liya Silva APRN [facility] [place] [address] Labs Only Social History Tobacco Use Types [...] 12:00 PM EDT Office [place] [address] Britt Zurita MD [facility] [place] [address] documented as of this encounter Visit Diagnoses Not on filedocumented in this encounter
--- OUTSIDE RECORDS SUMMARY | 2024-06-14 02:13 | XMS_ITS | Encounter Summary ---
Author Organization [facility] Address [facility] [place] [address] Care Team Providers Care Visitor Use Assistant Name Role Phone Anuja Cai APRN Primary Care Provider [phone] Encounter Details Date Type Department Care Team (Latest Contact Info) Description 01/26/2024 12:29 PM EDT - 01/26/2024 11:59 PM EDT Hospital Encounter XRay at [address] [place] [address] Kp Erazo MD [facility] [place] [address] Right knee pain, unspecified chronicity Discharge Disposition: [...] 02/16/24 07/29/2021 fluticasone propionate (Flonase) 50 mcg/actuation Trumann, Suspension SPRAY ONE SPRAY IN EACH NOSTRIL TWICE A DAY 08/07/2021 fluconazole (Diflucan) 150 mg Tablet Take 150 mg by mouth as needed. 07/25/2021 naproxen (Naprosyn) 500 mg tabletIndications:Polya rthralgia Take 1 tablet by mouth 2 times daily (with meals). 60 tablet 3 04/16/2023 04/18/2024 cetirizine (ZyrTEC) 1 mg/mL Solution Take by mouth. 02/16/2024 StemPar SciencesTouch Verio test strips Strip 11/20/2022 02/16/2024 blood-glucose [...] 12:00 PM EDT Office [place] [address] Britt Zurita MD [facility] [place] [address] documented as of this encounter Procedures Procedure [...] who have questions please contact the health day care aide that requested your imaging first. ? Electronically signed by: Juliana Jensen MD, [facility] ([phone]), at 01/26/2024 2:42 PM Narrative 01/26/2024 2:42 [...] patients who have questions please contactthe health day care aide that requested your imaging first. Electronically signed by: Juliana Jensen MD, [facility]([phone]), at 01/26/2024 2:42 PM Kp Erazo MD IMG DX ORDERABLES documented in this encounter Visit Diagnoses Diagnosis Right knee pain, unspecified chronicity documented in this encounter Care Teams Visitor Use Assistant Relationship Specialty Start Date End Date Anuja Cai APRN [address] [facility] [place] [address] PCP - General Internal Medicine 07/25/21 documented as of this encounter
--- OUTSIDE RECORDS SUMMARY | 2024-06-14 02:13 | XMS_ITS | Encounter Summary ---
Author Organization [facility] [place] [address] Care Team Providers Care Wastewater Technician Name Role Phone Anuja Cai APRN Primary Care Provider [phone] Encounter Details Date Type Department Care Team (Late st Contact Info) Description 11/28/2022 Ancillary Procedure [place] [phone] Anuja Cai APRN [address] [place] [address] Social History Tobacco Use Types Packs/Day Years [...] 12:00 PM EDT Office Visit [place] [address] Britt Zurita MD [facility] [address] [place], [place] [phone] documented as of this encounter Procedures Procedure Name Priority Date/Time Associated Diagnosis Comments FILM LIBRARY STORAGE ONLY DX KNEE Routine 11/28/2022 12:00 AM EST documented in this encounter Results * Film Library- Storage Only DX Knee (11/28/2022 12:00 AM EST) Narrative [facility] - 02/02/2023 10:20 PM EDT This exam is auto-finalizing. It's purpose is for storage only. Anuja Cai APRN Fanny FILM LIBRARY ORD ERABLES Performing Organization Address City/State/[facility] Co de Phone Number [place], [place] documented in this encounter Visit Diagnoses Not on filedocumented in this encounter Care Teams Wastewater Technician Relationship Specialty Start Date End Date Anuja Cai APRN [address] [place] [address] PCP - General Internal Medicine 07/25/21 documented as of this encounter
--- OUTSIDE RECORDS SUMMARY | 2024-06-14 02:13 | XMS_ITS | Encounter Summary ---
Author Organization [facility] [place] [address] Care Team Providers Care Ice Plant Operator Name Role Phone Unavailable Primary Care Provider Unavailabl e Reason for Visit * Reason Comments Follow-up Encounter Details Date Type Department Care Team ([facility] st Contact Info) Description 04/14/2013 11:25 AM EDT Follow-Up Internal Medicine at [facility] [address] [place] [address] Liya Richardson APRN [facility] [place] [address] Pap smear for cervical cancer screening (Primary [...] 12:00 PM EDT Office [place] [address] Britt Zurita MD [facility] [place] [address] documented as of this encounter Procedures Procedure Name Priority Date/Time Associated Diagnosis Comments BUSINESS COORDINATOR MOLECULAR GENETICS REPORT Routine 04/14/2013 3:59 PM EDT BUSINESS COORDINATOR CYTOLOGY FINAL REPORT Routine 04/14/2013 3:59 PM EDT CYTOPATHOLOGY GYNECOLOGICAL Routine 04/14/2013 12:25 PM EDT Health care maintenance documented in this encounter Results * Automatic Die Cutting Machine Operator Cytology Final Report (04/14/2013 3:59 PM EDT) Automatic Die Cutting Machine Operator Cytology Final Report ? [facility] ? Provider: ?? LIYA RICHARDSON Pt. Name: ?? TERI HARO ? Acc #: ?[id number] ?Pt. ? Col Date: ?? 04/14/2013 ? /Sex: ?1980,(33 years),Female ? Rec Date: ?? 04/14/2013 ? LOC: ?HPN ? CYTOPATHOLOGY: ??BUSINESS COORDINATOR ? ---Adequacy--- ? Specimen submitted is satisfactory [...] ? These guidelines were published in the [place] Journal of Obstetrics and ? Gynecology (2007;197(4):346-3 55). ? 04/21/13 ?? Screened by: ??SLA ??BULK COOLERS INSTALLER ? 04/22/13 ?? Verified by: ??BELKYS OCONNELL MD - Pathologist ? ---Comment--- ? Please also see concurrent HPV test result. ? ---Clinical Information--- ? HPV Option: ? Concurrent HPV ? Preparation: ?Liquid Based Pap ? Specimen Source: ?Vag/Cerv/Endo/LB P/Diagnostic ? LMP: ?/12/15 ? Hormones?: ?No ? Hysterectomy?: ?No ?: ?No ?: ?No ? I.U.D.?: ?No ? Pelvic Radiation: ? No ? Prior BUSINESS COORDINATOR Therapy?: ? Other (comment) ? Hist Abnl Pap/Biopsy?: ??Yes, history of previous abnormal Pap ? Hist of HPV Vaccine?: ?? No ? Hist of Smoking?: ? Yes ? [facility] ? Provider: ?? LIYA RICHARDSON Pt. Name: ?? TERI HARO ? Acc #: ?[id number] ?Pt. ? Col Date: ?? 04/14/2013 ? /Sex: ?1980,(33 years),Female ? Rec Date: ?? 04/14/2013 ? LOC: ?HPN ? CYTOPATHOLOGY: ??BUSINESS COORDINATOR ? Hist of MAR exposure?: ??No ? Clinical Data, Significant Therapy and Clinical Impression: ? This Pap Test has been evaluated with the assistance of the ThinPrep Pap ? Test Imaging System. ? Note: ? The Pap test is a screening test for cervical cancer with an inherent ? false-negative rate dependent upon several variables. ??For further ? information please contact the [facility] Laboratory. ? Reference: ??Julianne CS. ??Electric Distribution Checker of Pap Smear Results. ??In: ? Suri BS, Silvestre HH, ed. ??The Pap Smear. ??[place]: ??Willian, 2002: ? 71-77. [facility] 04/14/2013 3:59 PM EDT Liya Richardson SPEECH WRITER PATHOLOGY/CYTOLO GY ORDERABLES Performing Organization Address City/State/[facility] Co de Phone Number [facility] * BUSINESS COORDINATOR Molecular Genetics Report (04/14/2013 3:59 PM EDT) BUSINESS COORDINATOR Molecular Genetics Report ? [facility] ? Provider: ?? LIYA RICHARDSON Pt. Name: ?? TERI HARO ? Acc #: ?[id number] ?Pt. ? Col Date: ?? 04/14/2013 ? [...] Based Prep ? Reviewed by: ??Willian Marroquin [facility] ? A ?VCELD Vag/Cerv/Endo/L BP/Diagnostic ? [...] Anila Serna MD PATHOLOGY/CYTOLOGY ORDERABLES [facility] documented in this encounter Visit Diagnoses Diagnosis Pap smear for cervical cancer screening- Primary Screening for malignant neoplasm of the cervix Health care maintenance Unspecified general medical examination documented in this encounter
--- OUTSIDE RECORDS SUMMARY | 2024-06-14 02:13 | XMS_ITS | Encounter Summary ---
[place] [address] Care Team Providers Care Pattern Designer Name Role Phone Anuja Cai APRN Primary Care Provider [phone] Reason for Referral * Consultation (Routine) - Closed Specialty Diagnoses / Procedures Referred By Ehsan patel Referred To Contact Rheumatology Diagnoses Arthralgia, unspecified joint Other chronic pain Other fatigue Other specified abnormal immunological findings in serum Anuja Cai APRN [address] [place] [address] [facility] [address] [place] [phone] Referral ID Status Reason Start Date Expiration Date V isits Requested Visits Authorized [id number] Closed Consult, Test & Treat PCP Updated and/or Approved 02/17/2023 02/17/2024 6 6 Encounter Details Date Type Department Care Team (Latest Contact Info) Description 02/17/2023 Transcribe Orders eDH Incoming Referrals [phone] Anuja Cai APRN [address] [place], [place] [id number] Arthralgia, unspecified joint; Other chronic pain; Other [...] 12:00 PM EDT [place] [address] Britt Zurita MD [facility] [address] Scheduled Referrals Name Type Priority Associated Diagnoses Orde r Schedule Referral to Rheumatology Outpatient Referral Routine Arthralgia, unspecified joint Other chronic pain Other fatigue Other specified abnormal immunological findings in serum Ordered: 02/17/2023 documented as of this encounter Visit Diagnoses Diagnosis Arthralgia, unspecified joint Other chronic pain Other fatigue Other specified abnormal immunological findings in serum documented in this encounter Care Teams Pattern Designer Relationship Specialty Start Date End Date Anuja Cai APRN [address] [place] [address] PCP - General Internal Medicine 07/25/21 documented as of this encounter
--- OUTSIDE RECORDS SUMMARY | 2024-06-14 02:13 | XMS_ITS | Encounter Summary ---
[place] [address] Care Team Providers Care Crystal Attacher Name Role Phone TrellAnuja APRN Primary Care Provider + [phone] Reason for Visit * Reason Onset Date Comments Reminder Appointment 08/19/2021 Encounter Details Date Type Department Care Team (Late Contact Info) Description 08/19/2021 Telephone [place] [address] Marylu Betancur CCMA Reminder Appointment [...] 12:00 PM EDT [place] [address] Britt Zurita MD [facility] [place] [address] documented as of this encounter Visit Diagnoses Not on filedocumented in this encounter Care Teams Crystal Attacher Relationship Specialty Start Date End Date Anuja Cai APRN [address] [facility] [place] [address] PCP - General Internal Medicine 07/25/21 documented as of this encounter
--- OUTSIDE RECORDS SUMMARY | 2024-06-14 02:13 | XMS_ITS | Encounter Summary ---
Author Organization [facility] [place] [address] Care Team Providers Care Insecticide Expert Name Role Phone Unavailable Primary Care Provider Unavailabl e Reason for Visit * Reason Comments Follow-up Encounter Details Date Type Department Care Team ([facility] st Contact Info) Description 04/27/2013 9:45 AM EDT Follow-Up Internal Medicine at [facility] [address] [place] [address] Liya Richardson APRN [facility] GENER[place] [address] Fatigue (Primary Dx); Night sweats Discharge Disposition: [...] Miscellaneous Notes * Addendum Note - Mason Whittaker - 04/27/2013 2:26 PM EDTAddended by: MASON WHITTAKER on: 04/27/2013 02:26 PM Modules accepted: Orders documented in this encounter Plan of Treatment Upcoming Encounters Date Type Department Care Team (Late st Contact Info) Description 08/17/2024 12:00 PM EDT Office Visit Rheumatology at [facility] [place] [phone] Britt Zurita MD [facility] [place] [address] documented as of this encounter Procedures Procedure Name Priority Date/Time Associated Diagnosis Comments LYME IGG & IGM ANTIBODY Routine 04/27/2013 2:31 PM EDT Fatigue Night sweats CMP W/FASTING GLUCOSE Routine 04/27/2013 2:31 PM EDT Fatigue Night sweats DIFFERENTIAL, AUTOMATED Routine 04/27/2013 2:31 PM EDT HIV SCREEN, 4TH GENERATION ([facility] [place]/CGP/APD/NLH) Routine 04/27/2013 2:31 PM EDT Fatigue Night [...] Gran Absolute 0.01 0.00 - 0.05 x10(3)/mcL [facility] Blood specimen (specimen) 04/27/2013 2:31 PM EDT 04/27/2013 2:38 PM EDT Anila Serna MD HEMATOLOGY ORDERABL ES Performing Organization Address [facility] de Phone Number [facility] * HIV (04/27/2013 2:31 PM EDT) HIV 1/2 Ab Negative [facility] Blood specimen (specimen) 04/27/2013 2:31 PM EDT 04/27/2013 2:38 PM EDT Narrative Resulting Agency Comment Spec In Lab Anila Serna MD CHEMISTRY ORDERABLE S Performing Organization Address [facility] de Phone Number [facility] * Lactate Dehydrogenase (04/27/2013 2:31 PM EDT) Lactate Dehydrogenase 130 110 - 220 unit/L [facility] Blood specimen (specimen) 04/27/2013 2:31 PM EDT 04/27/2013 2:38 PM EDT Narrative Resulting Agency Comment Spec In Lab Anila Serna MD CHEMISTRY ORDERABLE S Performing Organization Address [facility] de Phone Number [facility] * Lyme IgG & IgM Antibody (04/27/2013 2:31 PM EDT) Lyme Antibody Neg Neg [facility] Blood specimen (specimen) 04/27/2013 2:31 PM EDT 04/28/2013 7:47 AM EDT Narrative Resulting Agency Comment Spec In Lab Anila Serna MD IMMUNOLOGY ORDERABL ES Performing Organization Address [facility] de Phone Number [facility] * TSH (04/27/2013 2:31 PM EDT) Thyroid Stimulating Hormone 1.02 0.27 - 4.20 mcIU/mL [facility] Blood specimen (specimen) 04/27/2013 2:31 PM EDT 04/27/2013 2:38 PM EDT Narrative Resulting Agency Comment Spec In Lab Anila Serna MD CHEMISTRY ORDERABLE S Performing Organization Address [facility] Phone Number [facility] * CMP w/fasting Glucose (04/27/2013 2:31 PM EDT) Glucose Fasting 95 65 - 99 mg/dL [facility] Comment: ?Fasting* Glucose Interpretive Criteria Normal ?65-99 [...] of Diabetes Mellitus, Position Statement from the [place] [employer]. ??Diabetes Care, Volume 33, Supplement 1, Nov 2009 Blood Urea Nitrogen 10 8 - 18 mg/dL [facility] Creatinine 0.75 0.70 - 1.20 mg/dL [facility] Comment: Please note that the pediatric reference intervals supplied above were not validated at [facility] [place]. Results from pediatric patients should be interpreted [...]
--- OUTSIDE RECORDS SUMMARY | 2024-06-14 02:13 | XMS_ITS | Encounter Summary ---
Author Organization [facility] [place] [address] Care Team Providers Care Bump Grader Operator Name Role Phone Unavailable Primary Care Provider Unavailabl e Encounter Details Date Type Department Care Team (Late st Contact Info) Description 05/26/2013 Telephone Obstetrics [place] [address] Julio Cristina MD [facility] DR OBSTETRICS & [place] [address] Social History Tobacco Use Types Packs/Day Years [...] 12:00 PM EDT Office [place] [address] Britt Zurita MD [facility] [place] [address] documented as of this encounter Visit Diagnoses Not on filedocumented in this encounter
--- OUTSIDE RECORDS SUMMARY | 2024-06-14 02:14 | XMS_ITS | Encounter Summary ---
Author Organization [facility] Address [facility] [place] [address] Care Team Providers Care Rounding Machine Tender Name Role Phone Unavailable Primary Care Provider Unavailabl e Reason for Visit * Reason Comments Establish Care Encounter Details Date Type Department Care Team ([facility] st Contact Info) Description 03/22/2013 1:50 PM EDT Office Visit Internal Medicine at [facility] [address] [place] [phone] Liya Silva APRN [facility] GENER[facility] [place] [address] ENCOUNTER TO ESTABLISH CARE (Primary Dx) Discharge [...] in this encounter Progress Notes * Liya Silva APRN - 03/22/2013 2:04 PM EDT PCP: LIYA SILVA APRN SUBJECTIVE: 32 y.o. female presents to [facility]. She just moved down here from [facility]. She is working in [employer], same position. 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 She reports that she had requested records from [facility] back in November. She has complicated medical [...] to GI specialist when she was in [place], but moved before she had appt. She [...] 12:00 PM EDT Office [place] [address] Britt Zurita MD [facility] [place] [address] documented as of this encounter Visit Diagnoses Diagnosis Encounter to establish care- Primary Other reasons for seeking consultation documented in this encounter
--- OUTSIDE RECORDS SUMMARY | 2024-06-14 02:14 | XMS_ITS | Encounter Summary ---
Author Organization [facility] [place] [address] Care Team Providers Care Space Officer Name Role Phone Unavailable Primary Care Provider Unavailabl e Reason for Visit * Reason Comments Pharyngitis Encounter Details Date Type Department Care Team ([facility] st Contact Info) Description 03/24/2013 2:15 PM EDT Office [place] [address] Parvin Bennett INSTRUMENT AND CONTROL TECHNICIAN [facility] [place] [address] Pharyngitis (Primary Dx) Discharge Disposition: Home Social [...] Visit: 03/24/2013 Location of Visit: Otolaryngology Clinic, [facility] Patient: Teri Haro ([id number] ; 1980 Primary Care Provider: VIJAY RICHARDSON [...] to strep. 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 Teri does smoke 1 pack/day x 14 years. She would like to quit. Teri does have a hx of chronic fatigue, reflux with hiatal hernia. She is currently taking Omeprazole 40 mg /day and feels that does control her reflux symptoms. Past Medical History: Other then above, night sweats, Hashimotto disease, Past Surgical History: Past Surgical History Procedure Date ??? [place] tooth extraction Medications: Current Outpatient Prescriptions on File Prior to Visit Medication Sig Dispense Refill ??? omeprazole (PRILOSEC) 40 mg capsule Take 1 capsule by mouth daily. 30 capsule 11 ??? levothyroxine (SYNTHROID) 88 mcg tablet Take 88 mcg by mouth daily. Allergies: Review of patient's allergies indicates no known allergies. Social History: Teri Haro lives in [facility] [address]. She has a 5 year old child. [...] her symptomsor sooner if needed. Parvin NARANJO [place], [place] [address] Office documented in this encounter Plan of Treatment Upcoming Encounters Date Type Department Care Team (Late st Contact Info) Description 08/17/2024 12:00 PM EDT Office [place] [address] Britt Zurita MD [facility] [place] [address] documented as of this encounter Procedures Procedure Name Priority Date/Time Associated Diagnosis Comments UPPER RESPIRATORY CULTURE Routine 03/24/2013 3:20 PM EDT Pharyngitis documented in this encounter Results * Upper Respiratory Culture Throat (03/24/2013 3:20 PM EDT) Upper Respiratory Culture ? Patient Name: TERI HARO ?Ordered By: OSCAR NELSON ? MR#: [id number] ?LOC: ??4F ? /Sex: ??1980 (32 years), [...] Lab Oscar Nelson MD MICROBIOLOGY - [facility] ORDERABLES RUBEN BENNETT documented in this encounter Visit Diagnoses Diagnosis Pharyngitis- Primary Acute pharyngitis documented in this encounter
--- OUTSIDE RECORDS SUMMARY | 2024-06-14 02:14 | XMS_ITS | Encounter Summary ---
Author Organization [facility] Address [facility] [place] [address] Care Team Providers Care Bi Report Developer Name Role Phone Unavailable Primary Care Provider Unavailabl e Reason for Referral * Consultation (Urgent) - Closed Specialty Diagnoses / Procedures Referred By Contmaya t Referred To Contact Otolaryngology Diagnoses Strep pharyngitis Kassy Toscano MD [facility] [place] [address] [facility] Otolaryngology [address] [place] [phone] Referral ID Status Reason Start Date Expiration Date V isits Requested Visits Authorized [id number] Closed Specialty Service Requested 03/09/2013 09/05/2013 1 1 Reason for Visit * Reason Comments Throat Pain Encounter Details Date Type Department Care Team (Late st Contact Info) Description 03/09/2013 1:53 AM EDT - 03/09/2013 3:07 AM EDT [place] [address] Kassy Toscano MD [facility] [place] [address] Strep pharyngitis (Primary Dx) Discharge [...] Everywhere. * STREP THROAT: AFTER YOUR VISIT (SAMOAN) documented in this encounter Medications at Time [...] by the patient and medical records. No interpreter for the deaf was used. 32-year-old female presents emergency department [...] 12:00 PM EDT Office [place] [address] Britt Zurita MD [facility] [place] [address] Scheduled Referrals Name Type Priority Associated Diagnoses [...]
--- NOTE | 2024-06-14 06:15 | DI.US_ITS ---
Exam(s) US PELVIS TRANSVAGINAL EXAM: US PELVIS TRANSVAGINAL CLINICAL HISTORY: intermenstual bleeding, pelvic cramping and pain,r10.2,n92.3. TECHNIQUE: Transabdominal and transvaginal pelvic ultrasound was performed using standard protocol. COMPARISON: No exams were available for comparison FINDINGS: UTERUS: Position: Retroverted. Size: 9.8 long by 5.3 AP by 6.7 transverse cm Endometrium: 0.6 cm. Normal for patient's menstrual status. Myometrium: Unremarkable. Cervix: Unremarkable. OVARIES: Right: 2.9 x 2.6 x 1.5 cm Cyst or mass: No suspicious cystic or solid masses. There is a 2.0 x 2.0 x 1.6 cm right paraovarian cyst. Left: 3.1 x 1.5 x 2.5 cm Cyst or mass: No suspicious cystic or solid masses. DOPPLER: Color: Symmetric and uniform flow to both ovaries. CUL-DE-SAC: Free fluid: None. Other: None. IMPRESSION: 1. Normal-appearing uterus with endometrial stripe within normal limits. 2. Unremarkable bilateral ovaries. DATA REPOSITORY:
== END 2024-06-14 02:26 ==
LOC: DI 02:06
PROVIDERS: PCP Nurse Practitioner; Visit Provider Nurse Practitioner Women's Health
DX: R10.2 Pelvic and perineal pain (principal); N92.3 Ovulation bleeding
CPT/HCPCS: 76830; 76856

== ENCOUNTER 2024-06-20 15:45 | Outpatient (CLI) | payer MEDICAID, SELFPAY ==
--- NOTE | 2024-06-20 09:22 | DI.RAD_ITS ---
Exam(s) XR WRIST LT COMPLETE EXAM: XR WRIST LT COMPLETE CLINICAL HISTORY: F/U L WRIST FX. TECHNIQUE: 2D digital imaging was performed of the left wrist. Three images were obtained. PA, obl ique and lateral views were obtained. COMPARISON: CR XR WRIST LT COMPLETE from 04/11/2024 CR XR WRIST LT COMPLETE from 05/23/2024 FINDINGS: BONES: Is again seen a sideplate in the distal left ulna. The fracture is nearly completely healed. No new fracture is seen. No bony destructive lesion is seen. JOINTS: The carpal bones are normally aligned. SOFT TISSUE: Normal. IMPRESSION: No acute abnormality. DATA REPOSITORY: RADIATION DOSE DELIVERED:
== END 2024-06-20 15:46 | disposition home or self-care (01) ==
LOC: DIORS 15:45
PROVIDERS: PCP Nurse Practitioner; Visit Provider Student in an Organized Health Care Education/Training Program
DX: S52.602D Unspecified fracture of lower end of left ulna, subsequent encounter for closed fracture with routine healing (principal); X58.XXXD Exposure to other specified factors, subsequent encounter
CPT/HCPCS: 73110

== ENCOUNTER 2024-07-12 18:04 | Outpatient (REF) | payer MEDICAID, SELFPAY ==
--- OUTSIDE RECORDS SUMMARY | 2024-07-12 18:05 | XMS_ITS | Encounter Summary ---
Author Organization [facility] Address [address] [place] [address] Care Team Providers Care Tail Ripper Name Role Phone Kaylynn Gimenez MD Primary Care Provider + [phone] Encounter Details Date Type Department Care Team (Late st Contact Info) Description 02/12/2023 Lab Requisition [facility] Pathology & Laboratory Medicine [address] [address] Outr Resulting Lab, Provider Social History Tobacco [...] [facility] Rheumatology & Immunology - [address] [id number] Micaela Hoff MD [address] [place] [address], [address] [place] [phone] documented as of this encounter Procedures Procedure [...] EDT) Hold Hold 02/12/2023 22:31 EDT [facility] Blood VENOUS BLOOD / Unknown 02/12/2023 11:40 EDT 02/12/2023 21:28 EDT Provider Outr Resulting Lab LAB INFO SER VICE AND SUPPORT & PHONE RESULT Performing Organization Address [facility] Co de Phone Number [facility] [address] [place] [address] * HOLD SST (02/12/2023 11:40 EDT) Hold Hold 02/12/2023 22:31 EDT [facility] Blood VENOUS BLOOD / Unknown 02/12/2023 11:40 EDT 02/12/2023 21:28 EDT Provider Outr Resulting Lab LAB INFO SER VICE AND SUPPORT & PHONE RESULT Performing Organization Address [facility] Co de Phone Number [facility] [address] [place] [address] * LYME AB (02/12/2023 11:40 EDT) Lyme Ab Negative Negative 02/13/2023 10:30 EDT [facility] Blood VENOUS BLOOD / Unknown 02/12/2023 11:40 EDT 02/12/2023 21:22 EDT Provider Outr Resulting Lab IMMUNOLOGY A ND SEROLOGY ORDERABLES Performing Organization Address [facility] Co de Phone Number [facility] [address] [place] [address] * (ABNORMAL) RHEUMATOID FACTOR (02/12/2023 11:40 EDT) Rheumatoid Factor 14.3(H) <12.0 IU/mL 02/12/2023 21:48 EDT [facility] Blood VENOUS BLOOD / Unknown 02/12/2023 11:40 EDT 02/12/2023 21:22 EDT Provider Outr Resulting Lab CHEMISTRY & BLOOD GAS ORDERABLES Performing Organization Address [facility] de Phone Number [facility] [address] [place] [address] * (ABNORMAL) ANTI NUCLEAR AB (LIZZIE), IFA (02/12/2023 11:40 EDT) LIZZIE Interpretation Positive(A) Negative 02/13/2023 15:40 EDT [facility] Comment: For titers greater [...] Dense Fine Speckled 02/13/2023 15:40 EDT [facility] Blood VENOUS BLOOD / Unknown 02/12/2023 11:40 EDT 02/12/2023 21:22 EDT Narrative [facility] - 02/13/2023 15:40 EDT Results were obtained with the INOVA NOVA Lite HEp-2 LIZZIE Kit by indirect immunofluorescence. Provider Outr Resulting Lab IMMUNOLOGY A ND SEROLOGY ORDERABLES Performing Organization Address City/[facility] Co de Phone Number [facility] [address] [place] [address] * CCP ANTIBODIES (02/12/2023 11:40 EDT) CCP Antibodies <2.5 <5.0 U/mL 02/13/2023 9:13 EDT [facility] Blood VENOUS BLOOD / Unknown 02/12/2023 11:40 EDT 02/12/2023 21:22 EDT Provider Outr Resulting Lab IMMUNOLOGY A ND SEROLOGY ORDERABLES Performing Organization Address [facility] de Phone Number [facility] [address] [place] [address] documented in this encounter Visit Diagnoses Not on filedocumented in this encounter Additional Health Concerns Infection Onset Date Last Indicated Resolved Time MRSA 10/20/2011 10/20/2011 documented as of this encounter Care Teams Tail Ripper Relationship Specialty Start Date End Date Kaylynn Gimenez MD [facility] [place] [phone] PCP - General 03/02/15 documented as of this encounter
--- OUTSIDE RECORDS SUMMARY | 2024-07-12 18:05 | XMS_ITS | Encounter Summary ---
Author Organization [facility] Address [address] [place] [address] Care Team Providers Care Contaminated Land Consultant Name Role Phone Kaylynn Gimenez MD Primary Care Provider + [phone] Encounter Details Date Type Department Care Team (Late st Contact Info) Description 03/12/2022 Lab Requisition [facility] Pathology & Laboratory Medicine [address] [address] Outr Resulting Lab, Provider Social History Tobacco [...] Description 12/29/2024 10:20 EST Office Visit [facility] Rheumatology & Immunology - [address] [phone] Micaela Hoff MD [address] [place] [address], [address] [place] [phone] documented as of this encounter Procedures Procedure Name Priority Date/Time Associated Diagnosis Comments CHLAMYDIA/N. GONORRHOEAE AMPLIFIED NUCLEIC ACID Routine 03/12/2022 13:30 EDT documented in this encounter Results * CHLAMYDIA/N. GONORRHOEAE AMPLIFIED RNA (03/12/2022 13:30 EDT) Neisseria gonorrhoeae Result Negative Negative 03/13/2022 14:35 EDT [facility] Chlamydia trachomatis Result Negative Negative 03/13/2022 14:35 EDT [facility] Swab ENTIRE WALL OF CERVIX / Unknown 03/12/2022 13:30 EDT 03/12/2022 21:52 EDT Provider Outr Resulting Lab MICROBIOLOGY - GENERAL ORDERABLES Performing Organization Address City/State/[facility] Co de Phone Number [facility] [address] [place] [address] documented in this encounter Visit Diagnoses Not on filedocumented in this encounter Additional Health Concerns Infection Onset Date Last Indicated Resolved Time MRSA 10/20/2011 10/20/2011 documented as of this encounter Care Teams Contaminated Land Consultant Relationship Specialty Start Date End Date Kaylynn Gimenez MD [facility] [place] [address] PCP - General 03/02/15 documented as of this encounter
--- OUTSIDE RECORDS SUMMARY | 2024-07-12 18:05 | XMS_ITS | Encounter Summary ---
Author Organization [facility] Address [address] [place] [address] Care Team Providers Care Bead Wire Taper Name Role Phone Kaylynn Gimenez MD Primary Care Provider + [phone] Reason for Visit * Reason Onset Date Comments Returning Call 06/06/2022 Encounter Details Date Type Department Care Team (Late st Contact Info) Description 06/06/2022 Telephone [facility] Endocrinology - [facility] [address] [place] [address] Susan Hensley MD [address] [facility] [address] [place] [address] Returning Call Social History Tobacco [...] 1303 EDT Taking care of in 06/03/22 wizboot message. Gilma Puente RN * Telephone Encounter - Gold Chrisjeane - 06/06/2022 1029 EDT The patient is returning a call to the nurse documented in this encounter Plan of Treatment Upcoming Encounters Date Type Department Care Team (Late st Contact Info) Description 12/29/2024 10:20 EST Office Visit [facility] Rheumatology & Immunology - [address] [address] Micaela Hoff MD [address] [facility], [address] [place] [phone] documented as of this encounter Visit Diagnoses Not on filedocumented in this encounter Additional Health Concerns Infection Onset Date Last Indicated Resolved Time MRSA 10/20/2011 10/20/2011 documented as of this encounter Care Teams Bead Wire Taper Relationship Specialty Start Date End Date Kaylynn Gimenez MD [address] [place] [phone] PCP - General 03/02/15 documented as of this encounter
--- OUTSIDE RECORDS SUMMARY | 2024-07-12 18:05 | XMS_ITS | Encounter Summary ---
Author Organization [facility] Address [address] [place] [address] Care Team Providers Care Clamp Remover Name Role Phone Kaylynn Gimenez MD Primary Care Provider + [phone] Reason for Visit * Reason Onset Date Comments Medications Refill 03/25/2023 Encounter Details Date Type Department Care Team (Late st Contact Info) Description 03/25/[address] [facility] [place] [facility] [place] [address] [place], [place] [phone] Hina Townsend MD [address] [facility] [address] [place] [address] Medications Refill Social History Tobacco [...] [facility] Rheumatology & Immunology - [address] [address] Micaela Hoff MD [address] [place] [address], [address] [place] [phone] documented as of this encounter Visit Diagnoses Not on filedocumented in this encounter Additional Health Concerns Infection Onset Date Last Indicated Resolved Time MRSA 10/20/2011 10/20/2011 documented as of this encounter Care Teams Clamp Remover Relationship Specialty Start Date End Date Kaylynn Gimenez MD [address] [place] [phone] PCP - General 03/02/15 documented as of this encounter
--- OUTSIDE RECORDS SUMMARY | 2024-07-12 18:05 | XMS_ITS | Encounter Summary ---
Author Organization [facility] Address [address] [place] [address] Care Team Providers Care Research And Evaluation Analyst Name Role Phone Kaylynn Gimenez MD Primary Care Provider + [phone] Encounter Details Date Type Department Care Team (Late st Contact Info) Description 03/14/2022 Lab Requisition [facility] Pathology & Laboratory Medicine [address] [address] Outr Resulting Lab, Provider Social History Tobacco [...] [facility] Rheumatology & Immunology - [address] [phone] Micaela Hoff MD [address] [place] [address], [address] [place] [phone] documented as of this encounter Procedures Procedure Name Priority Date/Time Associated Diagnosis Comments HIV 1/2 ANTIGEN AND ANTIBODY, 4TH GENERATION Routine 03/14/2022 10:10 EDT documented in this encounter Results * HIV 1/2 ANTIGEN AND ANTIBODY, 4TH GENERATION (03/14/2022 10:10 EDT) HIV 1 and 2 Antibody/p24 Antigen, 4th Generation Negative Negative 03/17/2022 10:43 EDT [facility] Comment:If acute HIV-1 infec tion is suspected in a high risk patient, submit plasma specimen for HIV-1 RNA quantitation test. Blood VENOUS BLOOD / Unknown 03/14/2022 10:10 EDT 03/14/2022 17:17 EDT Narrative [facility] - 03/17/2022 10:43 EDT Fourth Generation assay performed on the Siemens Twitchaur XPT. Provider Outr Resulting Lab IMMUNOLOGY A ND SEROLOGY ORDERABLES [facility] [address] [place] [address] documented in this encounter Visit Diagnoses Not on filedocumented in this encounter Additional Health Concerns Infection Onset Date Last Indicated Resolved Time MRSA 10/20/2011 10/20/2011 documented as of this encounter Care Teams Research And Evaluation Analyst Relationship Specialty Start Date End Date Kaylynn Gimenez MD [employer] [place] [address] PCP - General 03/02/15 documented as of this encounter
--- OUTSIDE RECORDS SUMMARY | 2024-07-12 18:05 | XMS_ITS | Encounter Summary ---
Author Organization [facility] Address [address] [place] [address] Care Team Providers Care Access Specialist Name Role Phone Kaylynn Gimenez MD Primary Care Provider + [phone] Encounter Details Date Type Department Care Team (Late st Contact Info) Description 05/15/2022 Lab Requisition [facility] Pathology & Laboratory Medicine [address] [address] Outr Resulting Lab, Provider Social History Tobacco [...] Info) Description 12/29/2024 10:20 EST Office Visit [facility] Rheumatology & Immunology - [address] [phone] Micaela Hoff MD [address] [place] [address], [address] [place] [phone] documented as of this encounter Procedures Procedure Name Priority Date/Time Associated Diagnosis Comments ZZCOVID-19 TEST [facility] PCR Today 05/14/2022 13:30 EDT COVID-19 TESTING Routine 05/14/2022 13:3 0 EDT documented in this encounter Results * COVID-19 TEST [facility] PCR (05/14/2022 13:30 EDT) Swab 05/14/2022 13:3 0 EDT 05/15/2022 17:22 EDT Provider Outr Resulting Lab MICROBIOLOGY - GENERAL ORDERABLES [facility] [address] [place] [address] * COVID-19 TESTING (05/14/2022 13:30 EDT) COVID-19 rt-PCR Result Negative Negative 05/16/2022 14:[address] [facility] Comment: This test has [...] history, and epidemiological information. Performed on the [employer] Fusion instrument This is an appended report. ??These results have been appended to a previously preliminary verified report. Performing Lab [facility] 05/16/2022 14:[address] [facility] Swab 05/14/2022 13:3 0 EDT 05/15/2022 17:22 EDT Provider Outr Resulting Lab MICROBIOLOGY - GENERAL ORDERABLES Performing Organization Address City/State/[facility] Co de Phone Number [facility] [address] [place] [address] documented in this encounter Visit Diagnoses Not on filedocumented in this encounter Additional Health Concerns Infection Onset Date Last Indicated Resolved Time MRSA 10/20/2011 10/20/2011 documented as of this encounter Care Teams Access Specialist Relationship Specialty Start Date End Date Kaylynn Gimenez MD [facility] [place] [address] PCP - General 03/02/15 documented as of this encounter
--- OUTSIDE RECORDS SUMMARY | 2024-07-12 18:05 | XMS_ITS | Encounter Summary ---
Author Organization [facility] Address [address] [place] [address] Care Team Providers Care Clinical Rn Liaison Name Role Phone Kaylynn Gimenez MD Primary Care Provider + [phone] Encounter Details Date Type Department Care Team (Late st Contact Info) Description 03/26/2023 Lab Requisition [facility] Pathology & Laboratory Medicine [address] [address] Esther Miller, UX RESEARCH ASSOCIATE [address] [place] [address] Encounter for other general examination [...] Info) Description 12/29/2024 10:20 EST Office Visit [facility] Rheumatology & Immunology - [address] [address] Micaela Hoff MD [address] [place] [address], [address] 5 [place] [address] documented as of this encounter Procedures Procedure [...] types, PCR Negative Negative 04/09/2023 17:48 EDT [facility] Comment:No E6 or E7 mRNA is detected from HPV types 16,18,31,33,35,39,45,51,52,56,58,59,66, and 68 by area attendant mediated amplification. Papanicolaou smear specimen (specimen) CERVIX UTERI STRUCTURE / Unknown 03/25/2023 11:00 EDT 04/09/2023 10:54 EDT Esther Miller APRN MICROBIOLOGY - NERAL ORDERABLES [facility] [address] [place] [address] * PAP TEST (03/25/2023 11:00 EDT) Specimens A. Cervix and/or Endocervix , ThinPrep Imaging System with Manual Evaluation 04/09/2023 17:48 EDT [facility] Specimen Adequacy Satisfactory for Evaluation - transformation zone component absent 04/09/2023 17:48 EDT [facility] General Categorization Negative for intraepithelial lesion or malignancy 04/09/2023 17:48 EDT [facility] Attestation . 04/09/2023 17:48 EDT [facility] at 2568 Clinical History See below 06/08/20 23 17:48 EDT [facility] HPV The result for the Human Papillomavirus (HPV) Detection-High Risk Types is Negative. No E6 or E7 mRNA is detected from HPV types 16,18,31,33,35,39 ,45,51,52,56,58,5 9,66, and 68 by area attendant mediated amplification.Leonie ting was performed on specimen [id number] and was resulted on 04/09/2023 1748 EDT by JONATHAN, LAB INSTRUMENT RESULTS IN 04/09/2023 17:48 EDT [facility] Performing Lab [facility] 04/09/2023 17:48 EDT [facility] Scanned Images 04/09/2023 17:48 EDT [facility] Papanicolaou smear specimen (specimen) CERVIX UTERI STRUCTURE / Unknown 03/25/2023 11:00 EDT 03/26/2023 15:21 EDT Esther Miller APRN PATHOLOGY ORDERAB LES [facility] [address] [place] [address] documented in this encounter Visit Diagnoses Diagnosis Encounter for other general examination documented in this encounter Additional Health Concerns Infection Onset Date Last Indicated Resolved Time MRSA 10/20/2011 10/20/2011 documented as of this encounter Care Teams Clinical Rn Liaison Relationship Specialty Start Date End Date Kaylynn Gimenez MD [facility] [place] [address] PCP - General 03/02/15 documented as of this encounter
--- OUTSIDE RECORDS SUMMARY | 2024-07-12 18:05 | XMS_ITS | Encounter Summary ---
Author Organization [facility] Address [address] [place] [address] Care Team Providers Care Zinc Etcher Name Role Phone Kaylynn Gimenez MD Primary Care Provider + [phone] Encounter Details Date Type Department Care Team (Late st Contact Info) Description 06/09/2024 Lab Requisition [facility] Pathology & Laboratory Medicine [address] [address] Outr Resulting Lab, Provider Social History Tobacco [...] [facility] Rheumatology & Immunology - [address] [phone] Micaela Hoff MD [address] [place] [address], [address] 5 [place] [phone] documented as of this encounter Procedures Procedure Name Priority Date/Time Associated Diagnosis Comments CHLAMYDIA/N. GONORRHOEAE AMPLIFIED NUCLEIC ACID Routine 06/08/2024 15:45 EDT documented in this encounter Results * CHLAMYDIA/N. GONORRHOEAE AMPLIFIED NUCLEIC ACID (06/08/2024 15:45 EDT) Neisseria gonorrhoeae Result Negative Negative 06/10/2024 12:11 EDT [facility] Chlamydia trachomatis Result Negative Negative 06/10/2024 12:11 EDT [facility] Swab VAGINAL STRUCTURE / Unknown 06/08/2024 15:45 EDT 06/09/2024 19:46 EDT Provider Outr Resulting Lab MICROBIOLOGY - GENERAL ORDERABLES [facility] [address] [place] [address] documented in this encounter Visit Diagnoses Not on filedocumented in this encounter Additional Health Concerns Infection Onset Date Last Indicated Resolved Time MRSA 10/20/2011 10/20/2011 documented as of this encounter Care Teams Zinc Etcher Relationship Specialty Start Date End Date Kaylynn Gimenez MD [facility] [place] [address] PCP - General 03/02/15 documented as of this encounter
--- OUTSIDE RECORDS SUMMARY | 2024-07-12 18:05 | XMS_ITS | Encounter Summary ---
Author Organization [facility] Address [address] [place] [address] Care Team Providers Care Soda Worker Name Role Phone Kaylynn Gimenez MD Primary Care Provider + [phone] Encounter Details Date Type Department Care Team (Late st Contact Info) Description 06/20/2022 Lab Requisition [facility] Pathology & Laboratory Medicine [address] [address] Outr Resulting Lab, Provider Social History Tobacco [...] 12/29/2024 10:20 EST Office Visit [facility] Rheumatology & Immunology - [address] [phone] Micaela Hoff MD [address] [place] [address], [address] [place] [phone] documented as of this encounter Procedures Procedure Name Priority Date/Time Associated Diagnosis Comments CORTISOL Routine 06/20/2022 7:18 EDT documented in this encounter Results * CORTISOL (06/20/2022 7:18 EDT) Cortisol 14 See Note ug/dL 06/20/2022 18:00 EDT [facility] Comment: NOTE: Reference Ranges (from [facility] IFU): Collected Before 10:00 AM: ??4 - 23 ug/dL Collected After 5:00 PM: ?2 - 14 ug/dL The results of this assay can be falsely elevated due to the consumption of Biotin. Blood VENOUS BLOOD / Unknown 06/20/2022 7:18 EDT 06/20/2022 17:17 EDT Provider Outr Resulting Lab CHEMISTRY & BLOOD GAS ORDERABLES [facility] [address] [place] [address] documented in this encounter Visit Diagnoses Not on filedocumented in this encounter Additional Health Concerns Infection Onset Date Last Indicated Resolved Time MRSA 10/20/2011 10/20/2011 documented as of this encounter Care Teams Soda Worker Relationship Specialty Start Date End Date Kaylynn Gimenez MD [address] [place] [address] PCP - General 03/02/15 documented as of this encounter
--- OUTSIDE RECORDS SUMMARY | 2024-07-12 18:05 | XMS_ITS | Encounter Summary ---
Author Organization [facility] Address [address] [place] [address] Care Team Providers Care Hall Monitor Name Role Phone Kaylynn Gimenez MD Primary Care Provider + [phone] Reason for Visit * Reason Onset Date Comments New/Evolving Symptoms 06/03/2022 Spasms 06/03/2022 Fatigue 06/03/2022 Dizziness 06/03/2022 Encounter Details Date Type Department Care Team (Late st Contact Info) Description 06/03/2022 Telephone [facility] Endocrinology - [facility] [address] [place] [address] Yaya Hensley MD [address] [facility] [address] [place] [address] New/Evolving Symptoms; Spasms; Fatigue; Dizziness [...] 06/05/2022 1105 EDT Called pt and sent mEgot message to pt. Seeking to gather more information regarding symptoms. Pt last seen via telemedicine by Dr. Hensley referred by PCP for hypoglycemia. Pt also has Mena's. Medications listed are: Levothyroxine 100 mcg daily (pt taking 112 mcg). Script by Dr. Rehan Abarca- script in record noted as ese written in 2013. Current dose unknown. SwitchNotehart message sent to pt requesting more information: - current thyroid medication and dose(s) -difficulty sleeping? -what is PCP recommending? -more details regarding fatigue, dizziness -testing BG'S (pt with hx hypoglycemia-last labs- where and when? Requesting pt contact office. Jeane Salinas school childcare attendant * Telephone Encounter - Obed Malcolm - 06/03/2022 5153 EDT The patient went to her PCP [...] Office Visit [facility] Rheumatology & Immunology - [address] [phone] Micaela Hoff MD [address] [place] [address], [address] [place] [phone] documented as of this encounter Visit Diagnoses [...] documented as of this encounter Care Teams Hall Monitor Relationship Specialty Start Date End Date Kaylynn Gimenez MD [address] [place] [phone] PCP - General 03/02/15 documented as of this encounter
--- OUTSIDE RECORDS SUMMARY | 2024-07-12 18:05 | XMS_ITS | Clinical Summary ---
Author Organization [facility] Address [address] [place] [address] Care Team Providers Care General Education Instructor Name Role Phone Kaylynn Gimenez MD Primary Care Provider + [phone] Allergies Active Allergy Reactions Criticality Noted Date [...] Auto Replacement Hypothyroidism 11/27/2010 04/28/2014 Morbid obesity (HCC-CMS) 11/27/201010/2011 Encounters Date Type Department Care Team Description 06/09/2024 Lab Requisition [facility] Pathology & Laboratory Medicine - [address] [address] Outr Resulting Lab, Provider from Last 3 [...] Relation Comments Diabetes Father Heart Disease Father DC Thyroid Cancer/Nodule Maternal Aunt 1 Cancer Cancer Maternal Aunt 2 thyroid Diabetes Maternal Grandmother Heart Disease Maternal Grandmother DC High Blood Pressure Mother brain aneury sm [...] [facility] - [address] [phone] Micaela Hoff MD [address] [place] [address], [address] [place] [address] Health Maintenance Due Date Last Done Comments Hepatitis B Vaccine (1 of 3 - 19+ 3-dose series) 2000 COVID-19 Vaccine (2022-2 4 season) 2024 Hepatitis C Screen Completed 03/14/2022, 0 07/16/2021, 04/26/2014, Additional history exists Procedures Procedure Name Priority Date/Time Associated Diagnosis Comments CHLAMYDIA/N. GONORRHOEAE AMPLIFIED NUCLEIC ACID Routine 06/08/2024 15:45 EDT HEPATITIS C AB W REFLEX TO HCV RNA BY PCR Routine 03/14/2022 10:10 EDT from Last 3 Months or Most Recently Relevant to Health Maintenance Results * CHLAMYDIA/N. GONORRHOEAE AMPLIFIED NUCLEIC ACID (06/08/2024 15:45 EDT) Neisseria gonorrhoeae Result Negative Negative 06/10/2024 12:11 EDT [facility] Chlamydia trachomatis Result Negative Negative 06/10/2024 12:11 EDT [facility] Swab VAGINAL STRUCTURE / Unknown 06/08/2024 15:45 EDT 06/09/2024 19:46 EDT Provider Outr Resulting Lab MICROBIOLOGY - GENERAL ORDERABLES Performing Organization Address City/[facility]/ZIP Co de Phone Number [facility] [address] [place] [address] * HEPATITIS C AB W REFLEX TO HCV RNA BY PCR (03/14/2022 10:10 EDT) Hep C Antibody Negative Negative 03/17/2022 10:18 EDT [facility] Blood VENOUS BLOOD / Unknown 03/14/2022 10:10 EDT 03/14/2022 17:17 EDT Provider Outr Resulting Lab CHEMISTRY & BLOOD GAS ORDERABLES Performing Organization Address City/[facility]/ZIP Co de Phone Number [facility] [address] [place] [address] from Last 3 Months or Most Recently Relevant to Health Maintenance Additional Health Concerns Infection Onset Date Last Indicated MRSA 10/20/2011 10/20/2011 Advance Directives For more information, please contact: [phone] * Full Code (Latest Code Status on File) Date Activated Date Inactivated Comments 07/18/2014 22:50 07/20/2014 11:51 * Full Code Date Activated Date Inactivated Comments 07/18/2014 16:13 07/18/2014 22:50 * Full Code Date Activated Date Inactivated Comments 07/11/2014 13:00 07/11/2014 16:39 * Full Code Date Activated Date Inactivated Comments 06/29/2014 18:01 06/29/2014 20:14 Care Teams General Education Instructor Relationship Specialty Start Date End Date Kaylynn Gimenez MD [address] [place] [address] PCP - General 03/02/15
--- OUTSIDE RECORDS SUMMARY | 2024-07-12 18:05 | XMS_ITS | Encounter Summary ---
Author Organization [facility] Address [address] [place] [address] Care Team Providers Care Model Maker Fiberglass Name Role Phone Kaylynn Gimenez MD Primary Care Provider + [phone] Reason for Visit * Reason Onset Date Comments Appointment Related 02/04/2023 Encounter Details Date Type Department Care Team (Late st Contact Info) Description 02/04/2023 Telephone [facility] Endocrinology - [address] [address] Hina Townsend MD [address] [place] [phone] Appointment Related Social History Tobacco Use [...] RN - 02/04/2023 0937 EDT Routing to [facility]. Gilma Puente, RN * Telephone Encounter [...] [facility] Rheumatology & Immunology - [address] [address] Micaela Hoff MD [address] [facility], [address] [place] [phone] documented as of this encounter Visit Diagnoses Not on filedocumented in this encounter Additional Health Concerns Infection Onset Date Last Indicated Resolved Time MRSA 10/20/2011 10/20/2011 documented as of this encounter Care Teams Model Maker Fiberglass Relationship Specialty Start Date End Date Kaylynn Gimenez MD [address] [place] [phone] PCP - General 03/02/15 documented as of this encounter
--- OUTSIDE RECORDS SUMMARY | 2024-07-12 18:05 | XMS_ITS | Encounter Summary ---
Author Organization [facility] Address [address] [place] [address] Care Team Providers Care Dolly Operator Name Role Phone Kaylynn Gimenez MD Primary Care Provider + [phone] Encounter Details Date Type Department Care Team (Late st Contact Info) Description 03/21/2024 Lab Requisition [facility] Pathology & Laboratory Medicine [address] [address] Outr Resulting Lab, Provider Social History Tobacco [...] Info) Description 12/29/2024 10:20 EST Office Visit [facility] Rheumatology & Immunology - [address] [address] Micaela Hoff MD [address] [place] [address], [address] [place] [phone] documented as of this encounter Procedures Procedure Name Priority Date/Time Associated Diagnosis Comments CCP ANTIBODIES Routine 03/21/2024 9:04 EDT RHEUMATOID FACTOR Routine 03/21/2024 9:0 4 EDT ANTI NUCLEAR AB (LIZZIE), IFA Routine 03/21/2024 9:04 EDT documented in this encounter Results * RHEUMATOID FACTOR (03/21/2024 9:04 EDT) Rheumatoid Factor 10.5 <12.0 IU/mL 03/21/2024 17:[address] [facility] Blood VENOUS BLOOD / Unknown 03/21/2024 9:04 EDT 03/21/2024 17:19 EDT Provider Outr Resulting Lab CHEMISTRY & BLOOD GAS ORDERABLES [facility] [address] [place] [phone] * (ABNORMAL) ANTI NUCLEAR AB (LIZZIE), IFA (03/21/2024 9:04 EDT) LIZZIE Interpretation Positive(A) Negative 03/22/2024 14:[address] [facility] Comment: For titers greater [...] 1:320 Dense Fine Speckled 03/22/2024 14:[address] [facility] Blood VENOUS BLOOD / Unknown 03/21/2024 9:04 EDT 03/21/2024 17:[address] [facility] - 03/22/2024 14:31 EDT Results were obtained with the [employer] NOVA Lite HEp-2 LIZZIE Kit by indirect immunofluorescence. Provider Outr Resulting Lab IMMUNOLOGY A ND SEROLOGY ORDERABLES Performing Organization Address City/[facility]/ZIP Co de Phone Number [facility] [address] [place], [place] [phone] * CCP ANTIBODIES (03/21/2024 9:04 EDT) CCP Antibodies <2.5 <5.0 U/mL 03/22/2024 9:[address] [facility] Blood VENOUS BLOOD / Unknown 03/21/2024 9:04 EDT 03/21/2024 17:19 EDT Provider Outr Resulting Lab IMMUNOLOGY A ND SEROLOGY ORDERABLES Performing Organization Address [facility] Co de Phone Number [facility] [address] [place], [place] [phone] documented in this encounter Visit Diagnoses Not on filedocumented in this encounter Additional Health Concerns Infection Onset Date Last Indicated Resolved Time MRSA 10/20/2011 10/20/2011 documented as of this encounter Care Teams Dolly Operator Relationship Specialty Start Date End Date Kaylynn Gimenez MD [facility] [place] [address] PCP - General 03/02/15 documented as of this encounter
--- OUTSIDE RECORDS SUMMARY | 2024-07-12 18:05 | XMS_ITS | Referral Summary ---
Author Organization [facility] Address [address] [place] [address] Care Team Providers Care Mine Supervisor Name Role Phone Kaylynn Gimenez MD Primary Care Provider + [phone] Encounters Date Type Department Care Team Description 06/09/2024 Lab Requisition [facility] Pathology & Laboratory Medicine - [facility] [address] [place] [address] Outr Resulting Lab, Provider from Last 3 [...] Hypothyroidism 11/27/2010 04/28/2014 Morbid obesity (HCC-CMS) 11/27/201010/2011 Immunizations Name Administration Dates Next Due [...] Description 12/29/2024 10:20 EST Office Visit [facility] Rheumatology & Immunology - [address] [phone] Micaela Hoff MD [address] [place] [address], [address] [place] [address] Procedures Procedure Name Priority Date/Time Associated Diagnosis Comments CHLAMYDIA/N. GONORRHOEAE AMPLIFIED NUCLEIC ACID Routine 06/08/2024 15:45 EDT HEPATITIS C AB W REFLEX TO HCV RNA BY PCR Routine 03/14/2022 10:10 EDT from Last 3 Months or Most Recently Relevant to Health Maintenance Results * CHLAMYDIA/N. GONORRHOEAE AMPLIFIED NUCLEIC ACID (06/08/2024 15:45 EDT) Neisseria gonorrhoeae Result Negative Negative 06/10/2024 12:11 EDT [facility] Chlamydia trachomatis Result Negative Negative 06/10/2024 12:11 EDT [facility] Swab VAGINAL STRUCTURE / Unknown 06/08/2024 15:45 EDT 06/09/2024 19:46 EDT Provider Outr Resulting Lab MICROBIOLOGY - GENERAL ORDERABLES [facility] [address] [place] [phone] * HEPATITIS C AB W REFLEX TO HCV RNA BY PCR (03/14/2022 10:10 EDT) Hep C Antibody Negative Negative 03/17/2022 10:18 EDT [facility] Blood VENOUS BLOOD / Unknown 03/14/2022 10:10 EDT 03/14/2022 17:17 EDT Provider Outr Resulting Lab CHEMISTRY & BLOOD GAS ORDERABLES [facility] [address] [place] [address] from Last 3 Months or Most Recently Relevant to Health Maintenance Additional Health Concerns Infection Onset Date Last Indicated MRSA 10/20/2011 10/20/2011 Advance Directives For more information, please contact: [phone] * Full Code (Latest Code Status on File) Date Activated Date Inactivated Comments 07/18/2014 22:50 07/20/2014 11:51 * Full Code Date Activated Date Inactivated Comments 07/18/2014 16:13 07/18/2014 22:50 * Full Code Date Activated Date Inactivated Comments 07/11/2014 13:00 07/11/2014 16:39 * Full Code Date Activated Date Inactivated Comments 06/29/2014 18:01 06/29/2014 20:14 Care Teams Mine Supervisor Relationship Specialty Start Date End Date Kaylynn Gimenez MD [facility] [place] [address] PCP - General 03/02/15
--- OUTSIDE RECORDS SUMMARY | 2024-07-12 18:05 | XMS_ITS | Encounter Summary ---
Author Organization [facility] Address [address] [place] [address] Care Team Providers Care Jackhammer Splitter Operator Name Role Phone Kaylynn Gimenez MD Primary Care Provider + [phone] Encounter Details Date Type Department Care Team (Late st Contact Info) Description 03/14/2022 Lab Requisition [facility] Pathology & Laboratory Medicine [address] [address] Outr Resulting Lab, Provider Social History Tobacco [...] Office Visit [facility] Rheumatology & Immunology - [address] [phone] Micaela Hoff MD [address] [place] [address], [address] [place] [phone] documented as of this encounter Procedures Procedure Name Priority Date/Time Associated Diagnosis Comments HEPATITIS C AB W REFLEX TO HCV RNA BY PCR Routine 03/14/2022 10:10 EDT documented in this encounter Results * HEPATITIS C AB W REFLEX TO HCV RNA BY PCR (03/14/2022 10:10 EDT) Hep C Antibody Negative Negative 03/17/2022 10:18 EDT [facility] Blood VENOUS BLOOD / Unknown 03/14/2022 10:10 EDT 03/14/2022 17:17 EDT Provider Outr Resulting Lab CHEMISTRY & BLOOD GAS ORDERABLES [facility] [address] [place] [address] documented in this encounter Visit Diagnoses Not on filedocumented in this encounter Additional Health Concerns Infection Onset Date Last Indicated Resolved Time MRSA 10/20/2011 10/20/2011 documented as of this encounter Care Teams Jackhammer Splitter Operator Relationship Specialty Start Date End Date Kaylynn Gimenez MD [address] [place] [phone] PCP - General 03/02/15 documented as of this encounter
--- OUTSIDE RECORDS SUMMARY | 2024-07-12 18:05 | XMS_ITS | Encounter Summary ---
Author Organization [facility] Address [address] [place] [address] Care Team Providers Care Relief Worker Name Role Phone Kaylynn Gimenez MD Primary Care Provider + [phone] Reason for Visit * Reason Comments New Patient Visit Low sugar * Referral (Routine) - Authorization Not Required Specialty Diagnoses / Procedures Referred [facility] Referred To Contact Diagnoses Hypothyroidism Hypoglycemia Family history of diabetes mellitus Prediabetes Anuja Cai, LEONELA [address] [place] [address] [facility] Endocrinology [address] [place] [address] Referral ID Status Reason Start Date Expiration Date Visits Requested Visits Authorized [id number] Authorization Not Required 1 1 Encounter Details Date Type Department Care Team (Late st Contact Info) Description 02/04/2023 11:30 EDT Telemedicine [facility] Endocrinology [address] [place], [place] [phone] Hina Townsend MD [address] [facility] [address] [place] [address] Mena's thyroiditis (Primary Dx); Hypoglycemia [...] for 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 Rheumatology & Immunology - [address] [address] Micaela Hoff MD [address] [facility], [address] [place] [address] documented as of this encounter [...] documented as of this encounter Care Teams Relief Worker Relationship Specialty Start Date End Date Kyalynn Gimenez MD [address] [place] [phone] PCP - General 03/02/15 documented as of this encounter
--- OUTSIDE RECORDS SUMMARY | 2024-07-12 18:05 | XMS_ITS | Encounter Summary ---
Author Organization [facility] Address [address] [place] [address] Care Team Providers Care Upper Inspector Name Role Phone Kaylynn Gimenez MD Primary Care Provider + [phone] Reason for Visit * Reason Comments Hypothyroidism * Referral (Routine) - Closed Specialty Diagnoses / Procedures Referred By Ehsan t Referred To Contact Endocrinology Diagnoses Hypothyroidism, unspecified Hypoglycemia, unspecified Anuja Cai, LEONELA [address] [place] [address] [facility] Endocrinology [address] [place] [address] Referral ID Status Reason Start Date Expiration Date Visits Re quested Visits Authorized [id number] Closed 1 1 Encounter Details Date Type Department Care Team (Latest Contact Info) Description 05/21/2021 16:00 EDT Telemedicine [facility] Endocrinology - [address] [address] Susan Hensley MD [address] [place] [address] [address] [place] [address] Hypoglycemia (Primary Dx); Hypothyroidism due [...] for a 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, 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, 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 Ordered as external to be sent to [facility]. -serum glucose -beta hydroxybutyrate -cortisol -insulin -c-peptide -pro-insulin Follow-up in 6 months but also pending labs. Patient was seen and examined with Dr Lillian Hensley Endocrinology Fellow PGY-4 Pager # [phone] Susan Hensley 05/21/2021 22:38 * Dominga Snyder [...] [facility] Immunology - [address] [address] Micaela Hoff MD [address] [place] [address], Level [address] [place] [address] documented as of this encounter [...] as of this encounter Care Teams Upper Inspector Relationship Specialty Start Date End Date Kaylynn Gimenez MD [address] [place] [phone] PCP - General 03/02/15 documented as of this encounter
--- OUTSIDE RECORDS SUMMARY | 2024-07-12 18:05 | XMS_ITS | Encounter Summary ---
Author Organization [facility] Address [address] [place] [address] Care Team Providers Care Network Director Name Role Phone Kaylynn Gimenez MD Primary Care Provider + [phone] Encounter Details Date Type Department Care Team (Late st Contact Info) Description 05/31/2021 Lab Requisition [facility] Pathology & Laboratory Medicine [address] [address] Outr Resulting Lab, Provider Social History Tobacco [...] Visit [facility] Rheumatology & Immunology - [address] [address] Micaela Hoff MD [address] [place] [address], [address] [place] [phone] documented as of this encounter Procedures Procedure Name Priority Date/Time Associated Diagnosis Comments BETA HYDROXYBUTYRATE Routine 05/30/2021 16:05 EDT INSULIN Routine 05/30/2021 16:05 EDT CORTISOL Routine 05/30/2021 16:05 EDT documented in this encounter Results * BETA HYDROXYBUTYRATE (05/30/2021 16:05 EDT) Beta Hydroxybutyrate 0.3 <0.4 mmol/L 05/31/2021 16:06 EDT [facility] Blood VENOUS BLOOD / Unknown 05/30/2021 16:05 EDT 05/31/2021 15:51 EDT Provider Outr Resulting Lab CHEMISTRY & BLOOD GAS ORDERABLES Performing Organization Address [facility] Co de Phone Number [facility] [address] [place] [address] * INSULIN (05/30/2021 16:05 EDT) Pathologist [facility] Insulin 6.4 <29.0 uIU/mL 06/06/2021 10:10 EDT [facility] Comment: Displayed Reference Range applies to fasting specimens only. Blood VENOUS BLOOD / Unknown 05/30/2021 16:05 EDT 05/31/2021 15:51 EDT Provider Outr Resulting Lab CHEMISTRY & BLOOD GAS ORDERABLES Performing Organization Address [facility]/ZIP Co de Phone Number [facility] [address] [place] [address] * CORTISOL (05/30/2021 16:05 EDT) Cortisol 5 See Note ug/dL 05/31/2021 16:31 EDT [facility] Comment: NOTE: Reference Ranges (from OCD IFU): Collected Before 10:00 AM: ??4 - 23 ug/dL Collected After 5:00 PM: ?2 - 14 ug/dL The results of this assay can be falsely elevated due to the consumption of Biotin. Blood VENOUS BLOOD / Unknown 05/30/2021 16:05 EDT 05/31/2021 15:51 EDT Provider Outr Resulting Lab CHEMISTRY & BLOOD GAS ORDERABLES Performing Organization Address City/State/[facility] Co de Phone Number [facility] [address] [place] [address] documented in this encounter Visit Diagnoses Not on filedocumented in this encounter Additional Health Concerns Infection Onset Date Last Indicated Resolved Time MRSA 10/20/2011 10/20/2011 documented as of this encounter Care Teams Network Director Relationship Specialty Start Date End Date Kaylynn Gimenez MD [address] [place] [phone] PCP - General 03/02/15 documented as of this encounter
--- OUTSIDE RECORDS SUMMARY | 2024-07-12 18:05 | XMS_ITS | Encounter Summary ---
Author Organization [facility] Address [address] [place] [address] Care Team Providers Care Salesperson [employer] Name Role Phone Kaylynn Gimenez MD Primary Care Provider + [phone] Encounter Details Date Type Department Care Team (Late st Contact Info) Description 07/16/2021 Lab Requisition [facility] Pathology & Laboratory Medicine [address] [address] Outr Resulting Lab, Provider Social History Tobacco [...] [facility] Immunology - [address] [phone] Micaela Hoff MD [address] [place] [address], [address] [place] [phone] documented as of this encounter Procedures Procedure Name Priority Date/Time Associated Diagnosis Comments CELIAC DISEASE PANEL Routine 07/16/2021 12:55 EDT HEPATITIS C AB W REFLEX TO HCV RNA BY PCR Routine 07/16/2021 12:55 EDT documented in this encounter Results * HEPATITIS C AB W REFLEX TO HCV RNA BY PCR (07/16/2021 12:55 EDT) Hep C Antibody Negative Negative 07/17/2021 10:31 EDT [facility] Blood VENOUS BLOOD / Unknown 07/16/2021 12:55 EDT 07/16/2021 21:37 EDT Provider Outr Resulting Lab CHEMISTRY & BLOOD GAS ORDERABLES Performing Organization Address City/State/[facility] Co de Phone Number [facility] [address] [place] [address] * CELIAC DISEASE PANEL (07/16/2021 12:55 EDT) Tissue Transglutaminase Antibody IGA <1.2 <4.0 U/mL 07/17/2021 12:06 EDT [facility] Comment: A negative result may be due to IgA deficiency and does not rule out celiac disease. ? Negative: ??<4.0 U/mL ? Weak Positive: ??4.0 - 10.0 U/mL ? Positive: ??>10.0 U/mL Results were obtained with the [employer] QUANTA Lite R h-tTG IgA YONATHAN assay on the [employer] DSX. IgA 191 85 - 499 mg/dL 07/17/2021 12:06 EDT [facility] Celiac Disease Interpretation Negative Serology. Celiac disease unlikely. Approximately 10% of patients with celiac disease are seronegative. Patients who are already adhering to a gluten-free diet may also be seronegative. If celiac disease is highly clinically suspected, referral to gastroenterology for additional evaluation is recommended. 07/17/2021 12:06 EDT [facility] Blood VENOUS BLOOD / Unknown 07/16/2021 12:55 EDT 07/16/2021 21:37 EDT Provider Outr Resulting Lab IMMUNOLOGY A ND SEROLOGY ORDERABLES Performing Organization Address City/State/[facility] Co de Phone Number [facility] [address] [place] [address] documented in this encounter Visit Diagnoses Not on filedocumented in this encounter Additional Health Concerns Infection Onset Date Last Indicated Resolved Time MRSA 10/20/2011 10/20/2011 documented as of this encounter Care Teams Salesperson [employer] Relationship Specialty Start Date End Date Kaylynn Gimenez MD [address] [place] [phone] PCP - General 03/02/15 documented as of this encounter
--- OUTSIDE RECORDS SUMMARY | 2024-07-12 18:05 | XMS_ITS | Encounter Summary ---
Author Organization [facility] Address [address] [place] [address] Care Team Providers Care Rough And Trueing Machine Operator Name Role Phone Kaylynn Gimenez MD Primary Care Provider + [phone] Reason for Visit * Reason Onset Date Comments Medications Refill 07/08/2022 Encounter Details Date Type Department Care Team (Late st Contact Info) Description 07/08/2022 Telephone [facility] Endocrinology - [facility] [address] [place] [address] Susan Hensley MD [address] [facility] [address] [place] [address] Medications Refill Social History Tobacco [...] Encounter - Gilma Puente RN - 07/24/2022 0908 EDT Patient picked up a 90 day supply of lancets at [facility] on 06/12/22. Gilma Puente RN * Telephone Encounter - Viktoriya Juarez MA - 07/08/2022 1114 EDT Images from the original note were not included. Please review note below from viola'lara for lancets thank you. documented in this encounter Plan of Treatment Upcoming Encounters Date Type Department Care Team (Late st Contact Info) Description 12/29/2024 10:20 EST Office Visit [facility] Rheumatology & Immunology - [address] [address] Micaela Hoff MD [address] [place] [address], [address] [place] [address] documented as of this encounter Visit Diagnoses Not on filedocumented in this encounter Additional Health Concerns Infection Onset Date Last Indicated Resolved Time MRSA 10/20/2011 10/20/2011 documented as of this encounter Care Teams Rough And Trueing Machine Operator Relationship Specialty Start Date End Date Kaylynn Gimenez MD [address] [place] [phone] PCP - General 03/02/15 documented as of this encounter
--- OUTSIDE RECORDS SUMMARY | 2024-07-12 18:06 | XMS_ITS | Encounter Summary ---
Author Organization [facility] Address [address] [place] [address] Care Team Providers Care Stock Unloader Name Role Phone Conor Angel MD Primary Care Provider [phone] Encounter Details Date Type Department Care Team (Late st Contact Info) Description 04/26/2014 Results Only [facility] OBGYN Services - [address] [phone] Cyrus Quijano MD [address] [place] [address] [place] [address] Social History Tobacco Use Types Packs/Day Years [...] Visit [facility] Rheumatology & Immunology - [address] [phone] Micaela Hoff MD [address] [facility], [address] [place] [phone] documented as of this encounter Procedures Procedure [...] ? LIZZIE SMITH ? Accession #: ? [id number] ? : ? 1980 (Age: 34) ??F [...] types 16,18,31,33,35, 39,45,51,52,56,58, 59,66, and 68 by mail carrier and clerk mediated amplification. Comments Document reviewed and electronically signed by: ? System Interface ? Report date: 05/12/2014 By the signature above, the attending physician certifies that he/she has personally conducted a gross and/or microscopic examination of the described specimens and rendered or confirmed the above diagnosis. End of Report [facility] 04/26/2014 05/01/2014 Cyrus Quijano MD PATHOLOGY ORDERABLES Performing Organization Address City/State/[facility] Co de Phone Number [facility] [address] [place] [address] documented in this encounter Visit Diagnoses Not on filedocumented in this encounter Additional Health Concerns Infection Onset Date Last Indicated Resolved Time MRSA 10/20/2011 10/20/2011 documented as of this encounter Care Teams Stock Unloader Relationship Specialty Start Date End Date Conor Angel MD [address] [place] [phone] PCP - General 02/07/14 06/08/14 documented as of this encounter
--- OUTSIDE RECORDS SUMMARY | 2024-07-12 18:06 | XMS_ITS | Encounter Summary ---
Author Organization [facility] Address [address] [place] [address] Care Team Providers Care Legal Internship Name Role Phone None, Provider Primary Care Provider Unavailabl e Reason for Visit * Reason Onset Date Comments Appointment Related 09/07/2014 Encounter Details Date Type Department Care Team (Late st Contact Info) Description 09/07/2014 Telephone [facility] Obstetrics & Midwifery - [facility] [address] [place], [place] [phone] Soledad Crawley, RN Appointment Related Social History [...] upcoming appointments. Currently, she is receiving weekly [place] injections in [place]. Patient had injection this AM and per patient reports, she receives quick exam/assessment while she is there. Denies any complaintsregarding her cerclage- no LOF, no cramping, no discharge, etc. Not sure she wants to have two appointments today and doesn't think she can get to [place] in time for her 2:00pm appointment. Offered to reschedule to a different day- with options offered for appointments next week which patient declined due to work, transportation, and childcare issues. Next appointment scheduled for 09/19. Alexsandra ent inquiring about receiving care closer to home in [place] as she is having [place] injections there already. Advised she discuss with provider at next visit and for coordination of these appointments, patient agreed to this plan. Asked she call [facility] hunter skin diver with any concerns or questions. documented in this encounter Plan of Treatment Upcoming Encounters Date Type Department Care Team (Late st Contact Info) Description 12/29/2024 10:20 EST Office Visit [facility] Rheumatology & Immunology - [address] [address] Micaela Hoff MD [address] [place] [address], [address] [place] [address] documented as of this encounter Visit Diagnoses Not on filedocumented in this encounter Additional Health Concerns Infection Onset Date Last Indicated Resolved Time MRSA 10/20/2011 10/20/2011 documented as of this encounter Care Teams Legal Internship Relationship Specialty Start Date End Date None, Provider PCP - General 06/09/14 03/01/15 documented as of this encounter
--- OUTSIDE RECORDS SUMMARY | 2024-07-12 18:06 | XMS_ITS | Encounter Summary ---
Author Organization [facility] Address [address] [place] [address] Care Team Providers Care Acid Conditioner Name Role Phone None, Provider Primary Care Provider Unavailabl e Encounter Details Date Type Department Care Team (Latest Contact Info) Description 12/13/2014 8:52 EST - 12/13/2014 23:59 [facility] Hospital Encounter [facility] - [address] [address] Unknown, Provider, Discharge Disposition: Home or Self [...] or Self Halfway documented in this encounter Plan of Treatment Upcoming Encounters Date Type Department Care Team (Late st Contact Info) Description 12/29/2024 10:20 EST Office Visit [facility] Rheumatology & Immunology - [address] [address] Micaela Hoff MD [address] [place] [address], [address] [place] [address] documented as of this encounter Visit Diagnoses Not on filedocumented in this encounter Additional Health Concerns Infection Onset Date Last Indicated Resolved Time MRSA 10/20/2011 10/20/2011 documented as of this encounter Care Teams Acid Conditioner Relationship Specialty Start Date End Date None, Provider PCP - General 06/09/14 03/01/15 documented as of this encounter
--- OUTSIDE RECORDS SUMMARY | 2024-07-12 18:06 | XMS_ITS | Encounter Summary ---
Author Organization [facility] Address [address] [place] [address] Care Team Providers Care Elementary School Principal Name Role Phone None, Provider Primary Care Provider Unavailabl e Encounter Details Date Type Department Care Team (Late st Contact Info) Description 07/11/2014 Results Only [facility] Obstetrics & Midwifery - [address] [phone] Tasha Torres MD [address] [place] [address] [address] [place] [address] Social History Tobacco Use Types [...] [facility] Rheumatology & Immunology - [address] [phone] Micaela Hoff MD [address] [place] [address], [facility] [address] [place] [phone] documented as of this encounter Procedures Procedure Name Priority Date/Time Associated Diagnosis Comments [id number] INTEGRATED SCREEN Routine 07/11/2014 10:30 EDT documented in this encounter Results * 2ND INTEGRATED SCREEN (07/11/2014 10:30 EDT) Result-Integrated Screen (Note) [facility] Comment: Interpretation: ??Screen Negative Down Syndrome Risk: ??1:1700 Trisomy 18 Risk: 1:60953 ONTD Risk: ??1:2000 Interpretation See Pathology Scanned Report in PRISM. [facility] Reference [facility] [place] [facility] 07/11/2014 10:3 0 EDT 07/11/2014 10:46 EDT Tasha Torres MD CHEMISTRY & BLOOD GAS ORDERABLES Performing Organization Address City/State/[facility] Co de Phone Number [facility] [address] [place] [address] documented in this encounter Visit Diagnoses Not on filedocumented in this encounter Additional Health Concerns Infection Onset Date Last Indicated Resolved Time MRSA 10/20/2011 10/20/2011 documented as of this encounter Care Teams Elementary School Principal Relationship Specialty Start Date End Date None, Provider PCP - General 06/09/14 03/01/15 documented as of this encounter
--- OUTSIDE RECORDS SUMMARY | 2024-07-12 18:06 | XMS_ITS | Encounter Summary ---
Author Organization [facility] Address [address] [place] [address] Care Team Providers Care Hide Handler Name Role Phone None, Provider Primary Care Provider Unavailabl e Encounter Details Date Type Department Care Team (Late st Contact Info) Description 08/08/2014 Phlebotomy Only [address] [address] Rap Artist, Outpatient Hypothyroidism Social History Tobacco Use Types [...] Visit [facility] Rheumatology & Immunology [address] [phone] Micaela Hoff MD [address] [facility], [address] [place] [address] documented as of this encounter [...] GA S ORDERABLES Performing Organization Address [facility] de Phone Number [facility] [address] [place] [address] * TSH (08/08/2014 12:14 EDT) TSH 0.98 0.35 - 5.00 uIU/ml [facility] Blood specimen (specimen) 08/08/2014 12:14 EDT 08/08/2014 12:40 EDT Rehan Abarca MD CHEMISTRY & BLOOD GA S ORDERABLES Performing Organization Address [facility] de Phone Number [facility] [address] [place] [address] documented in this encounter Visit Diagnoses Diagnosis Hypothyroidism Unspecified hypothyroidism documented in this encounter Additional Health Concerns Infection Onset Date Last Indicated Resolved Time MRSA 10/20/2011 10/20/2011 documented as of this encounter Care Teams Hide Handler Relationship Specialty Start Date End Date None, Provider PCP - General 06/09/14 03/01/15 documented as of this encounter
--- OUTSIDE RECORDS SUMMARY | 2024-07-12 18:06 | XMS_ITS | Encounter Summary ---
Author Organization [facility] Address [address] [place] [address] Care Team Providers Care Advertising Columnist Name Role Phone None, Provider Primary Care Provider Unavailabl e Reason for Visit * Reason Comments Routine Visit Encounter Details Date Type Department Care Team (Late st Contact Info) Description 08/08/2014 12:45 EDT Routine [facility] Obstetrics & Midwifery - [address] [phone] Tasha Torres MD [address] [place] [address], [address] [place] [address] GA: 20w4d Discharge Disposition: Auto [...] - 08/14/2014 1144 EDT Records faxed to [facility] ASSISTANT COMMUNITY DIRECTOR, Dr. Smith's office per Teri's request, as [...] Note - Tasha Torres MD - 08/08/2014 5942 EDTAssociated Problem(s): Supervision of other high-risk Rh+/ab [...] Visit [facility] Rheumatology & Immunology - [address] [address] Micaela Hoff MD [address] [place] [address], [address] [place] [address] documented as of this encounter [...] BLOOD GA S ORDERABLES Performing Organization Address City/[facility]/ZIP Co de Phone Number [facility] [address] [place] [address] * TSH (08/08/2014 12:14 EDT) TSH 0.98 0.35 - 5.00 uIU/ml [facility] Blood specimen (specimen) 08/08/2014 12:14 EDT 08/08/2014 12:40 EDT Rehan Abarca MD CHEMISTRY & BLOOD GA S ORDERABLES Performing Organization Address [facility] Co de Phone Number [facility] [address] [place] [address] * MRSA INFECTION CONTROL CULTURE (08/08/2014 11:41 EDT) Specimen Description Nasal [facility] Result No Staphylococcus aureus isolated. [facility] Report Status 08/10/2014 Final [facility] NASAL ROUTE / Unknown 08/08/2014 11:41 EDT 08/08/2014 12:01 EDT Tasha Torres MD MICROBIOLOGY - GENERAL ORDERABLES Performing Organization Address [facility] Co de Phone Number [facility] [address] [place] [address] documented in this encounter Visit Diagnoses Diagnosis [...] documented as of this encounter Care Teams Advertising Columnist Relationship Specialty Start Date End Date None, Provider PCP - General 06/09/14 03/01/15 documented as of this encounter
--- OUTSIDE RECORDS SUMMARY | 2024-07-12 18:06 | XMS_ITS | Encounter Summary ---
Author Organization [facility] Address [address] [place] [address] Care Team Providers Care Hydro Technician Name Role Phone Conor Angel MD Primary Care Provider [phone] None, Provider Primary Care Provider Unavailabl e Reason for Referral * MYSTERY SHOPPER (Routine) - Closed Specialty Diagnoses / Procedures Referred By Ehsan patel Referred To Contact Diagnoses Supervision of other high-risk (V23.89) Procedures PENITENTIARY INTEGRATED SCREEN Shanique Howell MD [address] [facility], Level 4 [place] [address] Referral ID Status Reason Start Date Expiration Date Visits Re quested Visits Authorized [id number] Closed 05/11/2014 1 1 Reason for Visit * Reason Comments Advice Only * Consult (Routine) - Specialty Report Received Specialty Diagnoses / Procedures Referred By Ehsan t Referred To Contact Obstetrics Diagnoses History of loss in prior , currently Duyen Haro RN [facility] Ep4 Ob/Mfm [address] [place] [address] Referral ID Status Reason Start Date Expiration Date Visits Requested Visits Authorized [id number] Specialty Report Received Specialty Services Required 04/26/2014 1 1 Encounter Details Date Type Department Care Team ([facility] st Contact Info) Description 05/11/2014 15:00 EDT Initial consult [facility] - [address] [phone] Shanique Howell MD [address] [place] [address], Level 4 [place] [address] Supervision of other high-risk (V23.89) [...] No known drug allergies Family History: None. SYSTEM SUPPORT DEVELOPER HISTORY: In 2002, Ms Smith had a [...] Visit [facility]ology [facility] Immunology - [address] [address] Micaela Hoff MD [address] [place] [address], Level 5 [place] [address] documented as of this encounter [...] of Ultrasound Findings: Transabdominal US. U/S machine: [employer] e8. U/S view: good. Report Summary: Impression: NOTE: This study was ordered as an NT ONLY so maternal and anatomy assessments were not performed. 98322 Nuchal translucency measurement This is a sanford gestation. Nuchal translucency is 2.6 mm. Omphalocele is not present. To complete the integrated screen, second trimester serum must be drawn and sent to [facility], preferably at 15-16 weeks'. Recommendations: Follow-up as [...] of Ultrasound Findings: Transabdominal US. U/S machine: [employer] e8. U/S view: good. Report Summary: Impression: NOTE: This study was ordered as an NT ONLY so maternal and anatomy assessments were not performed. 47290 Nuchal translucency measurement This is a sanford gestation. Nuchal translucency is 2.6 mm. Omphalocele is not present. To complete the integrated screen, second trimester serum must be drawn and sent to [facility], preferably at 15-16 weeks'. Recommendations: Follow-up as clinically indicated. Growth Overview: Date GA BPD [mm] HC [mm] AC [mm] FL [mm] HUM [mm] EFW GP 05/11/2014 7 + 6 ... ... ... ... ... ... ... 06/13/2014 12 + 4 ... ... ... ... ... ... ... Shanique Howell MD [facility] PENITENTIARY OR DERABLES documented in this encounter Visit Diagnoses Diagnosis Supervision of other high-risk (V23.89)- Primary Supervision of other high-risk documented in this encounter Additional Health Concerns Infection Onset Date Last Indicated Resolved Time MRSA 10/20/2011 10/20/2011 documented as of this encounter Care Teams Hydro Technician Relationship Specialty Start Date End Date Conor Angel MD [address] [place] [address] PCP - General 02/07/14 06/08/14 None, Provider PCP - General 06/09/14 03/01/15 documented as of this encounter
--- OUTSIDE RECORDS SUMMARY | 2024-07-12 18:06 | XMS_ITS | Encounter Summary ---
Author Organization [facility] Address [address] [place] [address] Care Team Providers Care Cnc Manufacturing Engineer Name Role Phone None, Provider Primary Care Provider Unavailabl e Reason for Referral * Radiology Services (Routine) - Closed Specialty Diagnoses / Procedures Referred By Contac t Referred To Contact Diagnoses Septate uterus, antepartum Procedures RAD US RETROPERITONEAL COMPLETE Rehan Abarca MD [address] [place] [address] [place] [address] Referral ID Status Reason Start Date Expiration Date Visits Re quested Visits Authorized [id number] Closed 06/13/2014 1 1 * RACK CARRIER (Routine) - Closed Specialty Diagnoses / Procedures Referred By Contac t Referred To Contact Diagnoses Supervision of other high-risk (V23.89) Procedures PRISON DETAILED Rehan Abarca MD [address] [place] [address] [place] [address] Referral ID Status Reason Start Date Expiration Date Visits Re quested Visits Authorized [id number] Closed 06/13/2014 1 1 * RACK CARRIER (Routine) - Closed Specialty Diagnoses / Procedures Referred By Contac t Referred To Contact Diagnoses Supervision of other high-risk (V23.89) Procedures PRISON TRANSVAGINAL Rehan Abarca MD [address] [place] [address] [place] [address] Referral ID Status Reason Start Date Expiration Date Visits Re quested Visits Authorized [id number] Closed 06/13/2014 1 1 Reason for Visit * Reason Comments Routine Visit Encounter Details Date Type Department Care Team (Late st Contact Info) Description 06/13/2014 14:30 EDT Routine [facility] Obstetrics & Midwifery - [address] [address] Makeda Lucas MD [address] [place] [address], Level 4 [place] [address] GA: 12w4d Discharge Disposition: Auto [...] MD * Makeda Lucas MD - 06/13/2014 6385 EDT MFMS Attending I saw and examined [...] Howell for consultation and plans to start [place] IM injections weekly until 36 weeks gestation. Transvaginal cervical length measurements to start at 16 weeks. documented in this encounter Plan of Treatment Upcoming Encounters Date Type Department Care Team (Late st Contact Info) Description 12/29/2024 10:20 EST Office Visit [facility] Rheumatology & Immunology - [address] [address] Micaela Hoff MD [address] [place] [address], Level 5 [place] [address] documented as of this encounter Procedures Procedure Name Priority Date/Time Associated Diagnosis Comments PRISON DETAILED Routine 08/08/2014 11:19 EDT Supervision of other high-risk (V23.89) RAD US RETROPERITONEAL COMPLETE Routine 07/11/2014 11:05 EDT Septate uterus, antepartum PRISON TRANSVAGINAL Routine 07/11/2014 9:48 EDT Supervision of other high-risk (V23.89) documented in this encounter Results * PRISON DETAILED (08/08/2014 11:19 EDT) Anatomical Region Laterality [...] of Ultrasound Findings: Transabdominal US. U/S machine: [employer] e8. U/S view: good. Genetic Sonogram: measured [...] mm. Volume: 7.5 ml. Report Summary: Impression: [id number] Obstetrical ultrasound with and maternal evaluation, including [...] of Ultrasound Findings: Transabdominal US. U/S machine: [employer] e8. U/S view: good. Genetic Sonogram: measured [...] mm. Volume: 7.5 ml. Report Summary: Impression: 70649 Obstetrical ultrasound with and maternal evaluation, including [...] Follow-up as clinically indicated. 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 The [...] Signs and Symptoms/Comments: 654.03-Congenital abnormalities of uterus, pkowktxwti-KBB-6-CM; history of a uterine anomaly . The [...] kidney and urinary bladder Rehan Abarca MD [facility] US ORDERABLES * PRISON TRANSVAGINAL (07/11/2014 9:48 EDT) Anatomical Region Laterality [...] Cervical length: 18 mm. Report Summary: Impression: [id number] Transvaginal obstetrical scan A transvaginal scan was [...] Cervical length: 18 mm. Report Summary: Impression: 59094 Transvaginal obstetrical scan A transvaginal scan was [...] Cervical length: 18 mm. Report Summary: Impression: 80044 Transvaginal obstetrical scan A transvaginal scan was [...] Cervical length: 18 mm. Report Summary: Impression: [id number] Transvaginal obstetrical scan A transvaginal scan was [...] ... ... ... ... Rehan Abarca MD [facility] [place]ABLE S * T4 FREE (06/13/2014 15:23 EDT) Free T4 1.4 0.8 - 1.8 ng/dl [facility] Blood specimen (specimen) 06/13/2014 15:23 EDT 06/13/2014 16:22 EDT Rehan Abarca MD CHEMISTRY & BLOOD GA S ORDERABLES Performing Organization Address City/[facility] Co de Phone Number [facility] [address] [place] [address] * TSH (06/13/2014 15:23 EDT) TSH 1.01 0.35 - 5.00 uIU/ml [facility] Blood specimen (specimen) 06/13/2014 15:23 EDT 06/13/2014 16:22 EDT Rehan Abarca MD CHEMISTRY & BLOOD GA S ORDERABLES Performing Organization Address City/[facility] Co de Phone Number [facility] [address] [place] [address] documented in this encounter Visit Diagnoses Diagnosis [...] documented as of this encounter Care Teams Cnc Manufacturing Engineer Relationship Specialty Start Date End Date None, Provider PCP - General 06/09/14 03/01/15 documented as of this encounter
--- OUTSIDE RECORDS SUMMARY | 2024-07-12 18:06 | XMS_ITS | Encounter Summary ---
Author Organization [facility] Address [address] [place] [address] Care Team Providers Care Marketing Traffic Coordinator Name Role Phone None, Provider Primary Care Provider Unavailabl e Reason for Visit * Reason Onset Date Comments Routine Visit 08/07/2014 Encounter Details Date Type Department Care Team (Late st Contact Info) Description 08/07/2014 Orders Only [facility] OBGYN Services - [address] [phone] Tasha Torres MD [address] [place] [address], [facility] 4 [place] [address] Need for immunization against influenza [...] [facility] [address] [phone] Micaela Hoff MD [address] [place] [address], [facility] 5 [place] [address] documented as of this encounter [...] documented as of this encounter Care Teams Marketing Traffic Coordinator Relationship Specialty Start Date End Date None, Provider PCP - General 06/09/14 03/01/15 documented as of this encounter
--- OUTSIDE RECORDS SUMMARY | 2024-07-12 18:06 | XMS_ITS | Encounter Summary ---
Author Organization [facility] Address [address] [place] [address] Care Team Providers Care Data Analytics Architect Name Role Phone None, Provider Primary Care Provider Unavailabl e Reason for Visit * Reason Onset Date Comments Appointment Related 09/27/2014 Encounter Details Date Type Department Care Team (Late st Contact Info) Description 09/27/[address] [facility] Obstetrics & Midwifery - [facility] [address] [place], [place] [phone] Soledad Crawley, RN Appointment Related Social History [...] Encounter - Soledad Crawley RN - 09/27/2014 105 EST Call to Teri to discuss her plans moving forward- has cancelled/no-showed last two appointments. No answer, detailed phone message left on house voicemail. Call to [facility] commission associate to inquire- patient has been receiving routine care at their office and plans to deliver in [place]- does not plan on coming back to [place] for appointments/delivery unless she has to (ie: she goes into [facility]). Offered to fax patient's records for continuity of care- [facility] has all of patient'srecords. documented in this encounter Plan of Treatment Upcoming Encounters Date Type Department Care Team (Late st Contact Info) Description 12/29/2024 10:[address] [facility] Rheumatology & Immunology - [address] [address] Micaela Hoff MD 111 [facility], Level 5 [place] [address] documented as of this encounter Visit Diagnoses Not on filedocumented in this encounter Additional Health Concerns Infection Onset Date Last Indicated Resolved Time MRSA 10/20/2011 10/20/2011 documented as of this encounter Care Teams Data Analytics Architect Relationship Specialty Start Date End Date None, Provider PCP - General 06/09/14 03/01/15 documented as of this encounter
--- OUTSIDE RECORDS SUMMARY | 2024-07-12 18:06 | XMS_ITS | Encounter Summary ---
Author Organization [facility] Address [address] [place] [address] Care Team Providers Care Data Center Manager Name Role Phone None, Provider Primary Care Provider Unavailabl e Reason for Referral * (Routine) - Closed Specialty Diagnoses / Procedures Referred By Ehsan patel Referred To Contact Anna Gore MD [address] [place] [address] Referral ID Status Reason Start Date Expiration Date V isits Requested Visits Authorized [id number] Closed Specialty Services Required 06/29/2014 1 1 Encounter Details Date Type Department Care Team (Late st Contact Info) Description 06/29/2014 17:20 EDT - 06/29/2014 18:10 EDT Hospital Encounter [facility] Unit [address] [place] [address] Robb Nam MD 111 [facility] 4 [place] [address] with history of pre-term labor [...] Info) Description 12/29/2024 10:20 EST Office Visit [facility] Rheumatology & Immunology - [address] [address] Micaela Hoff MD [address] [place] [address], Level 5 [place] [address] Scheduled Referrals Name Type Priority [...] GENER AL ORDERABLES Performing Organization Address City/State/[facility] Co de Phone Number [facility] [address] [place] [address] documented in this encounter Visit Diagnoses Diagnosis [...] as of this encounter Care Teams Data Center Manager Relationship Specialty Start Date End Date None, Provider PCP - General 06/09/14 03/01/15 documented as of this encounter
--- OUTSIDE RECORDS SUMMARY | 2024-07-12 18:06 | XMS_ITS | Encounter Summary ---
Author Organization [facility] Address [address] [place] [address] Care Team Providers Care Technology Risk Intern Name Role Phone Kaylynn Gimenez MD Primary Care Provider [phone] Encounter Details Date Type Department Care Team (Late st Contact Info) Description 01/16/2021 Lab Requisition [facility] Pathology & Laboratory Medicine - [address] [address] Outr Resulting Lab, Provider Social History Tobacco [...] [facility] - [address] [phone] Micaela Hoff MD [address] [place] [address], Level 5 [place] [phone] documented as of this encounter Procedures Procedure Name Priority Date/Time Associated Diagnosis Comments INSULIN Routine 01/16/2021 8:34 EDT documented in this encounter Results * INSULIN (01/16/2021 8:34 EDT) Insulin 5.7 <29.0 uIU/mL 01/17/2021 9:17 EDT [facility] Comment: Displayed Reference Range applies to fasting specimens only. Blood VENOUS BLOOD / Unknown 01/16/2021 8:34 EDT 01/16/2021 16:12 EDT Provider Outr Resulting Lab CHEMISTRY & BLOOD GAS ORDERABLES [facility] [address] [place] [address] documented in this encounter Visit Diagnoses Not on filedocumented in this encounter Additional Health Concerns Infection Onset Date Last Indicated Resolved Time MRSA 10/20/2011 10/20/2011 documented as of this encounter Care Teams Technology Risk Intern Relationship Specialty Start Date End Date Kaylynn Gimenez MD [facility] [place] [address] PCP - General 03/02/15 documented as of this encounter
--- OUTSIDE RECORDS SUMMARY | 2024-07-12 18:06 | XMS_ITS | Encounter Summary ---
Author Organization [facility] Address [address] [place] [address] Care Team Providers Care Sheet Rock Applier Name Role Phone None, Provider Primary Care Provider Unavailabl e Reason for Referral * (Routine) - Closed Specialty Diagnoses / Procedures Referred By Ehsan patel Referred To Contact Liya Stone MD [address] [place] [address] Referral ID Status Reason Start Date Expiration Date V isits Requested Visits Authorized [id number] Closed Specialty Services Required 07/20/2014 1 1 Encounter Details Date Type Department Care Team (Late st Contact Info) Description 07/18/2014 12:22 EDT - 07/20/2014 9:40 EDT Hospital Encounter [facility] Mother/Baby Unit [address] [place] [id number] Robb Nam MD [address] [address] Chester Howell MD [address] [address] Linda Valdes MD Short cervix, [...] Summaries * Liya Stone MD - 07/19/2014 7814 EDT Discharge Summary Chief Complaint: History of [...] was discharged withplan for follow-up in the [facility] clinic in 1-2 weeks. Relevant Studies at [...] documented in this encounter Progress Notes * LITHOGRAPHED PLATE INSPECTOR, ISELA 2 - 07/28/2014 1440 EDT * [...] No VB. Plan to d/c home on sap gatherer activity than normal. Recommend against intercourse until cerclage is out at 36 weeks. Has appt set for , at which time she will also have her anatomy US. CHESTER HOWELL MD * Marisol Howell, RN - 07/19/2014 1407 EDT 1358- Pt ambulated into OR 1. tile presser as well as advertising vice president present. James Valdes and Too also in OR for WHO prior to spinal placement. * Rosey Manning RN - 07/19/2014 1259 EDT 1225- pt to unit from [facility] via bed, shown to room 11. FOB Aditya at pt bedside. Pt is 17+5w [id number] a short cervix, here for a cerclage [...] for progesterone dose tomorrow at 1300 in [place], plan to keep appt and discharge in morning. Will give dose here if pt staying into the afternoon. Will be going to [facility] 5 overnight, room is ready and pt [...] EDT Transferred via wheelchair by transport [facility]. IV to saline lock documented in this encounter H&P Notes * Chester Howell MD - 07/18/2014 1318 EDT Department of Obstetrics History & Physical Admit Date: 07/18/2014 Chief Complaint: short cervix, h/o PTD Provider: Chester Howell HPI: Teri Smith is a 34 y.o. @ 17w4d by 5w5d US who is here for a cerclage for a shortening cervix. She is followed by [facility] for history of PTD @ 20 wga [...] Date ??? Upper gastrointestinal endoscopy 09/03/2010 ??? [place] tooth extraction ??? 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 SURGEON: Linda Valdes MD GIS INSTRUCTOR: Rehan Abarca MD ANESTHESIA: FLUIDS: 1000 mL [...] PM / Rehan Abarca MD cn Confirmation: [id number] Dictation ID: [id number] cc: Rehan Abarca MD * OR PostOp - Linda Valdes MD - 07/19/2014 0950 EDT Brief Post-Op Note Date of Surgery: [...] 07/19/2014 15:48 * Anesthesia Procedure Notes - LITHOGRAPHED PLATE INSPECTOR, SCAN 2 - 07/19/2014 1534 EDT documented [...] Date: 07/19/2014 Age: 34 y.o. GA: 17w5d Hide Washer: Chester Howell MD Obstetric History: 34 yo [...] Date ??? Upper gastrointestinal endoscopy 09/03/2010 ??? [place] tooth extraction ??? Endometrial biopsy Current Facility-Administered [...] Care - Bridget Robbins RN - 07/19/2014 610 EDT Problem: PAIN Goal: Patient???s pain/discomfort is [...] Care - Manuel Chappell RN - 07/18/2014 1521 EDT Problem: MAINTENANCE/ SUPPORT Goal: Maintain Outcome: [...] Info) Description 12/29/2024 10:20 EST Office Visit [facility] Rheumatology & Immunology - [address] [address] Micaela Hoff MD [address] [place] [address], Level 5 [place] [phone] Scheduled Referrals Name Type Priority Associated Diagnoses [...] & PF4 ORD ERABLES Performing Organization Address City/[facility]/ZIP Co de Phone Number [facility] [address] [place] [address] * INPATIENT ADD-ON (07/19/2014 8:55 EDT) Tests to be added CBC ( SAMPLE IS IN BLOOD BANK) [facility] Number for problems [id number] [facility] Accession number [id number] [facility] 07/19/2014 8:55 EDT 07/19/2014 8:57 EDT Lillian Rainey MD HEMATOLOGY & PF4 OR DERABLES Performing Organization Address City/[facility]/ZIP Co de Phone Number [facility] [address] [place] [address] * HEMAGRAM (07/19/2014 8:06 EDT) WBC UNABLE [...] HEMATOLOGY & PF4 ORD ERABLES [facility] [address] [place] [address] * TYPE AND SCREEN (07/19/2014 7:50 EDT) [...] documented as of this encounter Care Teams Sheet Rock Applier Relationship Specialty Start Date End Date None, Provider PCP - General 06/09/14 03/01/15 documented as of this encounter
--- OUTSIDE RECORDS SUMMARY | 2024-07-12 18:06 | XMS_ITS | Encounter Summary ---
Author Organization [facility] Address [address] [place] [address] Care Team Providers Care Shell Shop Supervisor Name Role Phone None, Provider Primary Care Provider Unavailabl e Reason for Visit * Reason Onset Date Comments Injections 06/27/2014 [place] Encounter Details Date Type Department Care Team (Late st Contact Info) Description 06/27/2014 Telephone [facility] Obstetrics & Midwifery - [facility] [address] [place], [place] [phone] Duyen Haro, RN Injections (Ary) Social History Tobacco Use Types Packs/Day Years [...] Description 12/29/2024 10:20 EST Office Visit [facility] Rheumatology & Immunology - [address] [phone] Micaela Hoff MD [address] [place] [address], Level 5 [place] [address] documented as of this encounter Visit Diagnoses Not on filedocumented in this encounter Additional Health Concerns Infection Onset Date Last Indicated Resolved Time MRSA 10/20/2011 10/20/2011 documented as of this encounter Care Teams Shell Shop Supervisor Relationship Specialty Start Date End Date None, Provider PCP - General 06/09/14 03/01/15 documented as of this encounter
--- OUTSIDE RECORDS SUMMARY | 2024-07-12 18:06 | XMS_ITS | Encounter Summary ---
Author Organization [facility] Address [address] [place] [address] Care Team Providers Care Rn Orthopaedics Name Role Phone None, Provider Primary Care Provider Unavailabl e Encounter Details Date Type Department Care Team (Late st Contact Info) Description 07/11/2014 10:40 EDT - 07/11/2014 11:09 EDT Hospital Encounter [facility] [address] [place] [address] Makeda Lucas MD 111 [facility], Level 4 [place] [phone] Discharge Disposition: Auto Discharge Social History Tobacco [...] 12/29/2024 10:20 EST Office Visit [facility] Rheumatology & Immunology - [address] [phone] Micaela Hoff MD [address] [place] [address], Level 5 [place] [address] documented as of this encounter Visit Diagnoses Not on filedocumented in this encounter Additional Health Concerns Infection Onset Date Last Indicated Resolved Time MRSA 10/20/2011 10/20/2011 documented as of this encounter Care Teams Rn Orthopaedics Relationship Specialty Start Date End Date None, Provider PCP - General 06/09/14 03/01/15 documented as of this encounter
--- OUTSIDE RECORDS SUMMARY | 2024-07-12 18:06 | XMS_ITS | Encounter Summary ---
Author Organization [facility] Address [address] [place] [address] Care Team Providers Care Golf Club Weighter Name Role Phone None, Provider Primary Care Provider Unavailabl e Encounter Details Date Type Department Care Team (Late st Contact Info) Description 07/11/2014 14:45 EDT - 07/11/2014 14:46 EDT Hospital Encounter [address] [address] Tasha Torres MD 111 [facility], Level 4 [place] [phone] Discharge Disposition: Home or Self Care Social [...] [facility] - [address] [phone] Micaela Hoff MD [address] [place] [address], Level 5 [place] [address] documented as of this encounter Procedures Procedure Name Priority Date/Time Associated Diagnosis Comments PATHOLOGY - SCANNED 07/17/2014 16:21 EDT documented in this encounter Results * PATHOLOGY - SCANNED (07/17/2014 16:21 EDT) 07/17/2014 16:2 1 EDT Scan 2 Ecological Risk Assessor LAB INFO SERVICE AN D SUPPORT & PHONE RESULT documented in this encounter Visit Diagnoses Not on filedocumented in this encounter Additional Health Concerns Infection Onset Date Last Indicated Resolved Time MRSA 10/20/2011 10/20/2011 documented as of this encounter Care Teams Golf Club Weighter Relationship Specialty Start Date End Date None, Provider PCP - General 06/09/14 03/01/15 documented as of this encounter
--- OUTSIDE RECORDS SUMMARY | 2024-07-12 18:06 | XMS_ITS | Encounter Summary ---
Author Organization [facility] Address [address] [place] [address] Care Team Providers Care Missile Mechanic Name Role Phone None, Provider Primary Care Provider Unavailabl e Encounter Details Date Type Department Care Team (Late st Contact Info) Description 07/11/2014 Phlebotomy Only [address] [address] Infrastructure Director, Outpatient Social History Tobacco Use Types Packs/Day [...] [facility] Rheumatology & Immunology [address] [phone] Micaela Hoff MD 111 [facility], [facility] 5 [place] [phone] documented as of this encounter Visit Diagnoses Not on filedocumented in this encounter Additional Health Concerns Infection Onset Date Last Indicated Resolved Time MRSA 10/20/2011 10/20/2011 documented as of this encounter Care Teams Missile Mechanic Relationship Specialty Start Date End Date None, Provider PCP - General 06/09/14 03/01/15 documented as of this encounter
--- OUTSIDE RECORDS SUMMARY | 2024-07-12 18:06 | XMS_ITS | Encounter Summary ---
Author Organization [facility] Address [address] [place] [address] Care Team Providers Care Teacher Adventure Education Name Role Phone None, Provider Primary Care Provider Unavailabl e Encounter Details Date Type Department Care Team (Late st Contact Info) Description 07/13/2014 Documentation Visit [facility] Obstetrics & Midwifery [address] [phone] Rehan Abarca MD [address] [place] [address] [place] [address] Social History Tobacco Use Types Packs/Day Years [...] [facility] Rheumatology & Immunology - [address] [phone] Micaela Hoff MD [address] [place] [address], Level 5 [place] [address] documented as of this encounter Visit Diagnoses Not on filedocumented in this encounter Additional Health Concerns Infection Onset Date Last Indicated Resolved Time MRSA 10/20/2011 10/20/2011 documented as of this encounter Care Teams Teacher Adventure Education Relationship Specialty Start Date End Date None, Provider PCP - General 06/09/14 03/01/15 documented as of this encounter
--- OUTSIDE RECORDS SUMMARY | 2024-07-12 18:06 | XMS_ITS | Encounter Summary ---
Author Organization [facility] Address [address] [place] [address] Care Team Providers Care Boot And Shoe Repairman Name Role Phone None, Provider Primary Care Provider Unavailabl e Reason for Visit * Reason Onset Date Comments Headache 07/21/2014 Encounter Details Date Type Department Care Team (Late st Contact Info) Description 07/21/2014 Telephone [facility] Reproductive Medicine [facility] - [facility] [address] [place] [address] Aura uBi, RN [address] [place] [address] Headache Social History Tobacco Use Types Packs/Day [...] [facility] Rheumatology & Immunology - [address] [phone] Micaela Hoff MD [address] [place] [address], Level 5 [place] [address] documented as of this encounter Visit Diagnoses Not on filedocumented in this encounter Additional Health Concerns Infection Onset Date Last Indicated Resolved Time MRSA 10/20/2011 10/20/2011 documented as of this encounter Care Teams Boot And Shoe Repairman Relationship Specialty Start Date End Date None, Provider PCP - General 06/09/14 03/01/15 documented as of this encounter
--- OUTSIDE RECORDS SUMMARY | 2024-07-12 18:06 | XMS_ITS | Encounter Summary ---
Author Organization [facility] Address [address] [place] [address] Care Team Providers Care Split And Drum Room Supervisor Name Role Phone None, Provider Primary Care Provider Unavailabl e Reason for Referral * MAINFRAME CONSULTANT (STAT) - Closed Specialty Diagnoses / Procedures [facility] To Contact Diagnoses with history of pre-term labor Procedures LONG-TERM TRANSVAGINAL Soledad Crawley RN Referral ID Status Reason Start Date Expiration Date Visits Re quested Visits Authorized [id number] Closed 06/29/2014 1 1 Reason for Visit * Reason Onset Date Comments Routine Visit 06/29/2014 Encounter Details Date Type Department Care Team (Late Contact Info) Description 06/29/2014 Orders Only [facility] Obstetrics & Midwifery [address] [address] Soledad Crawley RN with history [...] [facility] Rheumatology & Immunology - [address] [phone] Micaela Hoff MD [address] [place] [address], Level 5 [place] [phone] documented as of this encounter Procedures Procedure Name Priority Date/Time Associated Diagnosis Comments LONG-TERM TRANSVAGINAL Routine 06/29/2014 16:4 1 EDT with history of pre-term labor documented in this encounter Results * LONG-TERM TRANSVAGINAL (06/29/2014 16:41 EDT) Anatomical Region Laterality [...] of Ultrasound Findings: Transvaginal US. U/S machine: Blownaway e8. U/S view: good. Maternal Structures: Cervix: normal. Finding: mucous seen within. No funneling. Cervical length: 27 mm Cervical length with fundal pressure: 22 mm. Cul de Sac / Pouch of Bairon: trace of free fluid visible. Report Summary: Impression: [id number] Transvaginal obstetrical scan A transvaginal scan was [...] of Ultrasound Findings: Transvaginal US. U/S machine: Blownaway e8. U/S view: good. Maternal Structures: Cervix: normal. Finding: mucous seen within. No funneling. Cervical length: 27 mm Cervical length with fundal pressure: 22 mm. Cul de Sac / Pouch of Bairon: trace of free fluid visible. Report Summary: Impression: [id number] Transvaginal obstetrical scan A transvaginal scan was [...] of Ultrasound Findings: Transvaginal US. U/S machine: Blownaway e8. U/S view: good. Maternal Structures: Cervix: normal. Finding: mucous seen within. No funneling. Cervical length: 27 mm Cervical length with fundal pressure: 22 mm. Cul de Sac / Pouch of Bairon: trace of free fluid visible. Report Summary: Impression: [id number] Transvaginal obstetrical scan A transvaginal scan was [...] of Ultrasound Findings: Transvaginal US. U/S machine: Blownaway e8. U/S view: good. Maternal Structures: Cervix: normal. Finding: mucous seen within. No funneling. Cervical length: 27 mm Cervical length with fundal pressure: 22 mm. Cul de Sac / Pouch of Bairon: trace of free fluid visible. Report Summary: Impression: [id number] Transvaginal obstetrical scan A transvaginal scan was [...] Ultrasound Findings: Transvaginal US. U/S machine: FRIDA about.metaylor e8. U/S view: good. Maternal Structures: Cervix: normal. Finding: mucous seen within. No funneling. Cervical length: 27 mm Cervical length with fundal pressure: 22 mm. Cul de Sac / Pouch of Bairon: trace of free fluid visible. Report Summary: Impression: [id number] Transvaginal obstetrical scan A transvaginal scan was [...] of Ultrasound Findings: Transvaginal US. U/S machine: Blownaway e8. U/S view: good. Maternal Structures: Cervix: normal. Finding: mucous seen within. No funneling. Cervical length: 27 mm Cervical length with fundal pressure: 22 mm. Cul de Sac / Pouch of Bairon: trace of free fluid visible. Report Summary: Impression: [id number] Transvaginal obstetrical scan A transvaginal scan was [...] ... ... ... Robb Nam MD Fanny [facility] ORDER HEATH documented in this encounter Visit Diagnoses Diagnosis with history of pre-term labor- Primary documented in this encounter Additional Health Concerns Infection Onset Date Last Indicated Resolved Time MRSA 10/20/2011 10/20/2011 documented as of this encounter Care Teams Split And Drum Room Supervisor Relationship Specialty Start Date End Date None, Provider PCP - General 06/09/14 03/01/15 documented as of this encounter
--- OUTSIDE RECORDS SUMMARY | 2024-07-12 18:06 | XMS_ITS | Encounter Summary ---
Author Organization [facility] Address [address] [place] [address] Care Team Providers Care Weatherization And Housing Inspector Name Role Phone Kaylynn Gimenez MD Primary Care Provider + [phone] Encounter Details Date Type Department Care Team (Late st Contact Info) Description 07/20/2020 Lab Requisition [facility] Pathology & Laboratory Medicine [address] [address] Duyen Mcdowell MD [employer] [place], [place] [address] Encounter for other general examination Social History [...] [facility] Rheumatology & Immunology - [address] [phone] Micaela Hoff MD 111 [facility], Level 5 [place] [phone] documented as of this encounter Procedures Procedure [...] types, PCR Negative Negative 07/25/2020 23:43 EDT [facility] Comment:No E6 or E7 mRNA is detected from HPV types 16,18,31,33,35,39,45,51,52,56,58,59,66, and 68 by construction ironworker helper mediated amplification. Papanicolaou smear specimen (specimen) CERVIX UTERI STRUCTURE / Unknown 07/19/2020 10:15 EDT 07/24/2020 13:47 EDT Duyen Mcdowell MD MICROBIOLOGY - GENER AL ORDERABLES [facility] [address] [place] [address] * PAP TEST (07/19/2020 10:15 EDT) Specimens A. Cervix and/or Endocervix , ThinPrep Imaging System with Manual Evaluation 07/25/2020 23:43 EDT [facility] Specimen Adequacy Satisfactory for Evaluation - transformation zone component absent 07/25/2020 23:43 EDT [facility] General Categorization Negative for intraepithelial lesion or malignancy 07/25/2020 23:43 T [facility] Attestation . 07/25/2020 23:43 T [facility] at 2343 Clinical History See below 07/25/20 20 23:43 EDT [facility] HPV The result for the Human Papillomavirus (HPV) Detection-High Risk Types is Negative. No E6 or E7 mRNA is detected from HPV types 16,18,31,33,35,39 ,45,51,52,56,58,5 9,66, and 68 by construction ironworker helper mediated amplification.Leonie ting was performed on specimen [id number] and was resulted on 07/25/2020 2255 EDT by JONATHAN, LAB INSTRUMENT RESULTS IN 07/25/2020 23:43 EDT [facility] Performing Lab [facility] 07/25/2020 23:43 EDT [facility] Scanned Images 07/25/2020 23:43 EDT [facility] Papanicolaou smear specimen (specimen) CERVIX UTERI STRUCTURE / Unknown 07/19/2020 10:15 EDT 07/20/2020 9:11 EDT Duyen Mcdowell MD PATHOLOGY ORDERABLES [facility] [address] [place] [address] documented in this encounter Visit Diagnoses Diagnosis Encounter for other general examination documented in this encounter Additional Health Concerns Infection Onset Date Last Indicated Resolved Time MRSA 10/20/2011 10/20/2011 documented as of this encounter Care Teams Weatherization And Housing Inspector Relationship Specialty Start Date End Date Kaylynn Gimenez MD [facility] [place] [address] PCP - General 03/02/15 documented as of this encounter
--- OUTSIDE RECORDS SUMMARY | 2024-07-12 18:06 | XMS_ITS | Encounter Summary ---
Author Organization [facility] Address [address] [place] [address] Care Team Providers Care String Studies Director Name Role Phone Kaylynn Gimenez MD Primary Care Provider + [phone] Encounter Details Date Type Department Care Team (Late st Contact Info) Description 02/11/2017 13:00 EDT - 02/11/2017 23:59 EDT Hospital Encounter [facility] - Other [address] [place] [address] Robert Koo MD 111 [facility], Level 1 [place] [address] Discharge Disposition: Auto Discharge Social [...] [facility] Rheumatology & Immunology - [address] [address] Micaela Hoff MD [address] [place] [address], Level 5 [place] [phone] documented as of this encounter Visit Diagnoses Not on filedocumented in this encounter Additional Health Concerns Infection Onset Date Last Indicated Resolved Time MRSA 10/20/2011 10/20/2011 documented as of this encounter Care Teams String Studies Director Relationship Specialty Start Date End Date Kaylynn Gimenez MD [address] [place] [phone] PCP - General 03/02/15 documented as of this encounter
--- OUTSIDE RECORDS SUMMARY | 2024-07-12 18:06 | XMS_ITS | Encounter Summary ---
Author Organization [facility] Address [address] [place] [address] Care Team Providers Care Heel Boom Operator Name Role Phone None, Provider Primary Care Provider Unavailabl e Reason for Visit * Reason Onset Date Comments Other 06/20/2014 [place], records for [facility] OB Encounter Details Date Type Department Care Team (Late st Contact Info) Description 06/20/2014 Telephone [facility] Obstetrics & Midwifery - [facility] [address] [place], [place] [phone] Chrissie Lai, RN Other ([facility], records for [facility] OB) Social History Tobacco Use [...] Telephone Encounter - Chrissie Lai - 06/20/2014 6671 EDT Teri called and asked [facility] to contact [facility] OB about her [place] injections. [place] thinks she is having some of her injections here @ [facility]. Reviewed the note from visit, pt desires injections in [place]. Pt agrees this is the plan. -Spoke with nurse @ [facility]. Explained patient would have injections there. Copy of records faxed to [facility] at their request. documented in this encounter Plan of Treatment Upcoming Encounters Date Type Department Care Team (Late st Contact Info) Description 12/29/2024 10:20 EST Office Visit [facility] Rheumatology & Immunology - [address] [phone] Micaela Hoff MD [address] [place] [address], Level 5 [place] [address] documented as of this encounter Visit Diagnoses Not on filedocumented in this encounter Additional Health Concerns Infection Onset Date Last Indicated Resolved Time MRSA 10/20/2011 10/20/2011 documented as of this encounter Care Teams Heel Boom Operator Relationship Specialty Start Date End Date None, Provider PCP - General 06/09/14 03/01/15 documented as of this encounter
--- OUTSIDE RECORDS SUMMARY | 2024-07-12 18:06 | XMS_ITS | Encounter Summary ---
Author Organization [facility] Address [address] [place] [address] Care Team Providers Care Field Installation Technician Name Role Phone None, Provider Primary Care Provider Unavailabl e Reason for Visit * Reason Onset Date Comments Vaginal Bleeding 06/16/2014 Encounter Details Date Type Department Care Team (Late st Contact Info) Description 06/16/2014 Telephone [facility] Obstetrics & Midwifery - [facility] [address] [place], [place] [phone] Chrissie Lai RN Vaginal Bleeding Social History [...] Telephone Encounter - Chrissie Lai - 06/16/2014 2406 EDT Pt called to report she had brown discharge this morning in the shower. States she has had crampingoff and on the past few days. Denies bright red bleeding or clots. Reports intercourse two days ago. Cramping is decreased with rest. Reassured patient brown discharge is old bleeding. Instructed patient to rest today. Instructed patient to abstain from intercourse until next [facility] appointment. Reviewed when to call , bright red bleeding, cramping that continues, clots, vaginal pressure. Pt verbalized understanding. Reports she will be seeing OB in [place] soon to begin shared care. documented in this encounter Plan of Treatment Upcoming Encounters Date Type Department Care Team (Late st Contact Info) Description 12/29/2024 10:20 EST Office Visit [facility] Rheumatology & Immunology - [address] [phone] Micaela Hoff MD [address] [place] [address], Level 5 [place] [address] documented as of this encounter Visit Diagnoses Not on filedocumented in this encounter Additional Health Concerns Infection Onset Date Last Indicated Resolved Time MRSA 10/20/2011 10/20/2011 documented as of this encounter Care Teams Field Installation Technician Relationship Specialty Start Date End Date None, Provider PCP - General 06/09/14 03/01/15 documented as of this encounter
--- OUTSIDE RECORDS SUMMARY | 2024-07-12 18:06 | XMS_ITS | Encounter Summary ---
Author Organization [facility] Address [address] [place] [address] Care Team Providers Care Supervisor Landscape Name Role Phone None, Provider Primary Care Provider Unavailabl e Encounter Details Date Type Department Care Team (Late st Contact Info) Description 08/08/2014 9:06 EDT - 08/08/2014 23:59 EDT Hospital Encounter [facility] [place] [phone] Tasha Torres MD 111 [facility], Level 4 [place] [phone] Discharge Disposition: Home or Self Care Social [...] Code Departure Means Destination Home or Self Long-Term documented in this encounter Plan of Treatment Upcoming Encounters Date Type Department Care Team (Late st Contact Info) Description 12/29/2024 10:20 EST Office Visit [facility] Rheumatology & Immunology - [address] [phone] Micaela Hoff MD [address] [place] [address], Level [address] [place] [phone] documented as of this encounter Visit Diagnoses Not on filedocumented in this encounter Additional Health Concerns Infection Onset Date Last Indicated Resolved Time MRSA 10/20/2011 10/20/2011 documented as of this encounter Care Teams Supervisor Landscape Relationship Specialty Start Date End Date None, Provider PCP - General 06/09/14 03/01/15 documented as of this encounter
--- OUTSIDE RECORDS SUMMARY | 2024-07-12 18:06 | XMS_ITS | Encounter Summary ---
Author Organization [facility] Address [address] [place] [address] Care Team Providers Care Collaborating Supervising Physician Name Role Phone None, Provider Primary Care Provider Unavailabl e Encounter Details Date Type Department Care Team (Late st Contact Info) Description 06/13/2014 Phlebotomy Only [address] [address] Hairspring Studder, Outpatient Hypothyroidism Social History Tobacco Use Types [...] Info) Description 12/29/2024 10:20 EST Office Visit [facility] Rheumatology & Immunology [address] [phone] Micaela Hoff MD 111 [facility], Level [address] [place] [address] documented as of this encounter [...] BLOOD GA S ORDERABLES Performing Organization Address [facility] de Phone Number [facility] [address] [place] [address] * TSH (06/13/2014 15:23 EDT) TSH 1.01 0.35 - 5.00 uIU/ml [facility] Blood specimen (specimen) 06/13/2014 15:23 EDT 06/13/2014 16:22 EDT Rehan Abarca MD CHEMISTRY & BLOOD GA S ORDERABLES Performing Organization Address [facility] de Phone Number [facility] [address] [place] [address] documented in this encounter Visit Diagnoses Diagnosis Hypothyroidism Unspecified hypothyroidism documented in this encounter Additional Health Concerns Infection Onset Date Last Indicated Resolved Time MRSA 10/20/2011 10/20/2011 documented as of this encounter Care Teams Collaborating Supervising Physician Relationship Specialty Start Date End Date None, Provider PCP - General 06/09/14 03/01/15 documented as of this encounter
--- OUTSIDE RECORDS SUMMARY | 2024-07-12 18:06 | XMS_ITS | Encounter Summary ---
Author Organization [facility] Address [address] [place] [address] Care Team Providers Care Industrial/Organizational Psychologist Name Role Phone None, Provider Primary Care Provider Unavailabl e Reason for Visit * Reason Onset Date Comments Medication Management 06/14/2014 [place] Encounter Details Date Type Department Care Team (Late st Contact Info) Description 06/14/2014 Telephone [facility] Obstetrics & Midwifery - [facility] [address] [place] [address] Soledad Crawley, vegetable i farmworker Management ([place]) Social History Tobacco Use Types Packs/Day Years [...] 06/14/2014 1033 EDT Call from Nubia at [facility] field tech to discuss collaborative care for Teri to receive [place] injections in [place]. Pt desires this plan, she is aware she needs to schedule appointment with [facility] prior to initiating scheduled injections. Teri offered no questions or concerns, verbalizedunderstanding and agreement with plan of care. documented in this encounter Plan of Treatment Upcoming Encounters Date Type Department Care Team (Late st Contact Info) Description 12/29/2024 10:20 EST Office Visit [facility] Rheumatology & Immunology - [address] [address] Micaela Hoff MD [address] [place] [address], Level [address] [place] [address] documented as of this encounter Visit Diagnoses Not on filedocumented in this encounter Additional Health Concerns Infection Onset Date Last Indicated Resolved Time MRSA 10/20/2011 10/20/2011 documented as of this encounter Care Teams Industrial/Organizational Psychologist Relationship Specialty Start Date End Date None, Provider PCP - General 06/09/14 03/01/15 documented as of this encounter
--- OUTSIDE RECORDS SUMMARY | 2024-07-12 18:06 | XMS_ITS | Encounter Summary ---
Author Organization [facility] Address [address] [place] [address] Care Team Providers Care Physical Science Aide Name Role Phone Kaylynn Gimenez MD Primary Care Provider + [phone] Encounter Details Date Type Department Care Team (Latest Contact Info) Description 09/10/2015 15:36 EST - 09/10/2015 23:59 [facility] Hospital Encounter [address] [address] Unknown, Provider, Discharge Disposition: Home or Self [...] Code Departure Means Destination Home or Self Prison documented in this encounter Plan of Treatment Upcoming Encounters Date Type Department Care Team (Late st Contact Info) Description 12/29/2024 10:[address] [facility] Rheumatology & Immunology - [address] [address] Micaela Hoff MD [address] [place] [address], Level 5 [place] [phone] documented as of this encounter Visit Diagnoses Not on filedocumented in this encounter Additional Health Concerns Infection Onset Date Last Indicated Resolved Time MRSA 10/20/2011 10/20/2011 documented as of this encounter Care Teams Physical Science Aide Relationship Specialty Start Date End Date Kaylynn Gimenez MD [address] [place] [phone] PCP - General 03/02/15 documented as of this encounter
--- OUTSIDE RECORDS SUMMARY | 2024-07-12 18:06 | XMS_ITS | Encounter Summary ---
Author Organization [facility] Address [address] [place] [address] Care Team Providers Care Plans Examiner Name Role Phone Conor Angel MD Primary Care Provider [phone] Encounter Details Date Type Department Care Team (Late st Contact Info) Description 04/26/2014 Phlebotomy Only [address] [address] Drugless Doctor, Outpatient Supervision of other normal ; Hypothyroidism, [...] Visit [facility] Rheumatology & Immunology - [address] [address]27[address] Micaela Hoff MD [address] [place] [address], [facility] [address] [place] [phone] documented as of this encounter Procedures Procedure [...] GENER AL ORDERABLES [facility] [address] [place] [address] * SYPHILIS SEROLOGY (04/26/2014 16:15 EDT) Syphilis Serology Interpretation: Nonreactive [facility] Comment:Reference Range: Non reactive 04/26/2014 16:1 5 EDT 04/26/2014 16:34 EDT Rehan Abarca MD IMMUNOLOGY AND SEROL OGY ORDERABLES Performing Organization Address [facility] de Phone Number [facility] [address] [place] [address] * HEPATITIS B SURFACE ANTIGEN (04/26/2014 16:15 EDT) Hepatitis B Surface Ag Negative [facility] Comment:Reference Range: Neg ative 04/26/2014 16:1 5 EDT 04/26/2014 16:34 EDT Rehan Abarca MD CHEMISTRY & BLOOD GA S ORDERABLES Performing Organization Address [facility] Phone Number [facility] [address] [place] [address] * RUBELLA IGG ANTIBODY (04/26/2014 16:15 EDT) Rubella IgG Ab Positive [facility] Comment: Positive results suggest immunity to Rubella infection. 04/26/2014 16:1 5 EDT 04/26/2014 16:34 EDT Rehan Abarca MD CHEMISTRY & BLOOD GA S ORDERABLES Performing Organization Address [facility] de Phone Number [facility] [address] [place] [address] * BB STUDY (04/26/2014 16:15 EDT) ABO and Rh Type A POS [facility] Antibody Screen Neg [facility] 04/26/2014 16:1 5 EDT 04/26/2014 16:34 EDT Rehan Abarca MD BLOOD BANK TESTS Performing Organization Address [facility] de Phone Number [facility] [address] [place] [address] * DIFFERENTIAL (04/26/2014 16:15 EDT) % Neutrophils [...] PF4 ORD ERABLES [facility] [address] [place] [address] * HEMAGRAM (04/26/2014 16:15 EDT) WBC 7.83 [...] RDW-CV 12.2 11.7 - 14.6 % [facility] 04/26/2014 16:1 5 EDT 04/26/2014 16:34 EDT Rehan Abarca MD HEMATOLOGY & PF4 ORD ERABLES Performing Organization Address [facility] de Phone Number [facility] [address] [place] [address] * HEPATITIS C ANTIBODY (04/26/2014 16:15 EDT) Hepatitis C Ab Negative [facility] Comment:Reference Range: Neg ative Blood specimen (specimen) 04/26/2014 16:15 EDT 04/26/2014 16:34 EDT Rehan Abarca MD CHEMISTRY & BLOOD GA S ORDERABLES Performing Organization Address [facility] Phone Number [place] [address] * THYROID CASCADE (04/26/2014 16:15 EDT) TSH 2.39 0.35 - 5.00 uIU/ml [facility] Comment: TSH cascade is not recommended for patients in which pituitary or hypothalamic disorders are suspected. Blood specimen (specimen) 04/26/2014 16:15 EDT 04/26/2014 16:34 EDT Rehan Abarca MD CHEMISTRY & BLOOD GA S ORDERABLES Performing Organization Address [facility] Phone Number [facility] [address] [place] [address] * HIV 1/2 ANTIBODY (04/26/2014 16:15 EDT) HIV 1/2 Antibody Negative LU[facility] Comment: If acute HIV-1 infection is suspected in a high risk patient, submit plasma specimen for HIV-1 RNA quantification test. Reference Range: ??Negative Assayed utilizing [employer] chemiluminescent technology. Blood specimen (specimen) 04/26/2014 16:15 EDT 04/26/2014 16:34 EDT Rehan Abarca MD IMMUNOLOGY AND FRANCIS WEEMS ORDERABLES [facility] [address] [place] [address] documented in this encounter Visit Diagnoses Diagnosis Supervision of other normal Hypothyroidism, maternal, antepartum Thyroid dysfunction, antepartum documented in this encounter Additional Health Concerns Infection Onset Date Last Indicated Resolved Time MRSA 10/20/2011 10/20/2011 documented as of this encounter Care Teams Plans Examiner Relationship Specialty Start Date End Date Conor Angel MD [address] [place] [address] PCP - General 02/07/14 06/08/14 documented as of this encounter
--- OUTSIDE RECORDS SUMMARY | 2024-07-12 18:06 | XMS_ITS | Encounter Summary ---
Author Organization [facility] Address [address] [place] [address] Care Team Providers Care Loader Machine Name Role Phone None, Provider Primary Care Provider Unavailabl e Reason for Visit * Reason Onset Date Comments Vaginal Discharge 06/29/2014 Encounter Details Date Type Department Care Team (Late st Contact Info) Description 06/29/2014 Telephone [facility] Obstetrics & Midwifery - [facility] [address] [place], [place] [phone] Soledad Crawley RN Vaginal Discharge Social History [...] Encounter - Soledad Crawley RN - 06/29/2014 3484 EDT Call from Teri with reports of [...] asking if she can be seen in [place] instead, advised she reach out to office to arrange this or be seen in local ED. At this point, patient states she is beginning to leak watery discharge and tearfully states This is what happened last time. Strongly advised she be seen here in the office for transvaginal ultrasound or seek care locally in [place]. Teri states she will try and make appointment and then patient hung up telephone. US booked for 16:15pm today. documented in this encounter Plan of Treatment Upcoming Encounters Date Type Department Care Team (Late st Contact Info) Description 12/29/2024 10:20 EST Office Visit [facility] Rheumatology & Immunology - [address] [phone] Micaela Hoff MD [address] [place] [address], [address] [place] [phone] documented as of this encounter Visit Diagnoses Not on filedocumented in this encounter Additional Health Concerns Infection Onset Date Last Indicated Resolved Time MRSA 10/20/2011 10/20/2011 documented as of this encounter Care Teams Loader Machine Relationship Specialty Start Date End Date None, Provider PCP - General 06/09/14 03/01/15 documented as of this encounter
--- OUTSIDE RECORDS SUMMARY | 2024-07-12 18:06 | XMS_ITS | Encounter Summary ---
Author Organization [facility] Address [address] [place] [address] Care Team Providers Care Grocery Stock Clerk Name Role Phone None, Provider Primary Care Provider Unavailabl e Encounter Details Date Type Department Care Team (Late st Contact Info) Description 06/13/2014 Results Only [facility] OBGYN Services - [address] [address] Rehan Abarca MD [address] [place] [address] [place] [phone] Social History Tobacco Use Types Packs/Day Years [...] [facility] Rheumatology & Immunology - [address] [address] Micaela Hoff MD [address] [place] [address], [address] [place] [phone] documented as of this encounter Procedures Procedure Name Priority Date/Time Associated Diagnosis Comments FIRST INTEGRATED SCREEN Routine 06/13/2014 15:25 EDT documented in this encounter Results * FIRST INTEGRATED SCREEN (06/13/2014 15:25 EDT) First Integrated Screen to [employer] Sample sent to [employer] 06/13/2014 15:2 5 EDT 06/13/2014 16:17 EDT Rehan Abarca MD CHEMISTRY & BLOOD GA S ORDERABLES Performing Organization Address [facility] Phone Number [facility] [address] [place] [address] documented in this encounter Visit Diagnoses Not on filedocumented in this encounter Additional Health Concerns Infection Onset Date Last Indicated Resolved Time MRSA 10/20/2011 10/20/2011 documented as of this encounter Care Teams Grocery Stock Clerk Relationship Specialty Start Date End Date None, Provider PCP - General 06/09/14 03/01/15 documented as of this encounter
--- OUTSIDE RECORDS SUMMARY | 2024-07-12 18:06 | XMS_ITS | Encounter Summary ---
Author Organization [facility] Address [address] [place] [address] Care Team Providers Care Felt Hat Steamer Name Role Phone None, Provider Primary Care Provider Unavailabl e Encounter Details Date Type Department Care Team (Late st Contact Info) Description 07/11/2014 Documentation Visit [facility] Obstetrics & Midwifery [address] [phone] Linda Bustillos MD Social History Tobacco Use [...] [facility] - [address] [phone] Micaela Hoff MD [address] [place] [address], [address] [place] [address] documented as of this encounter Visit Diagnoses Not on filedocumented in this encounter Additional Health Concerns Infection Onset Date Last Indicated Resolved Time MRSA 10/20/2011 10/20/2011 documented as of this encounter Care Teams Felt Hat Steamer Relationship Specialty Start Date End Date None, Provider PCP - General 06/09/14 03/01/15 documented as of this encounter
--- OUTSIDE RECORDS SUMMARY | 2024-07-12 18:06 | XMS_ITS | Encounter Summary ---
Author Organization [facility] Address [address] [place] [address] Care Team Providers Care Processing Technologist Name Role Phone None, Provider Primary Care Provider Unavailabl e Reason for Referral * (Routine) - Closed Specialty Diagnoses / Procedures Referred By Ehsan patel Referred To Contact Liya Stone MD [address] [place] [address] Referral ID Status Reason Start Date Expiration Date V isits Requested Visits Authorized [id number] Closed Specialty Services Required 07/11/2014 1 1 Encounter Details Date Type Department Care Team (Late st Contact Info) Description 07/11/2014 11:10 EDT - 07/11/2014 14:15 EDT Hospital Encounter [facility] Unit [address] [place], [place] [address] Robb Nam MD [address] [facility], Level [address] [place] [address] Discharge Disposition: Home or Self [...] Date ??? Upper gastrointestinal endoscopy 09/03/2010 ??? [place] tooth extraction ??? Endometrial biopsy hysteroscopic resection uterine septum 2003 Call Center Supervisor History Social History H/o LEEP after 20 [...] (including nares and areas of open skin) [id number] hours apart rule out colonization. Do not cohort at this time. documented in this encounter Plan of Treatment Upcoming Encounters Date Type Department Care Team (Late st Contact Info) Description 12/29/2024 10:20 EST Office Visit [facility] Rheumatology & Immunology - [address] [address] Micaela Hoff MD [address] [place] [address], [address] [place] [address] Scheduled Referrals Name Type Priority [...] documented as of this encounter Care Teams Processing Technologist Relationship Specialty Start Date End Date None, Provider PCP - General 06/09/14 03/01/15 documented as of this encounter
--- OUTSIDE RECORDS SUMMARY | 2024-07-12 18:06 | XMS_ITS | Encounter Summary ---
Author Organization [facility] Address [address] [place] [address] Care Team Providers Care Business Team Leader Name Role Phone Kaylynn Jones MD Primary Care Provider + [phone] Encounter Details Date Type Department Care Team (Late st Contact Info) Description 09/10/2015 Results Only [facility] [phone] Roberto Zuleta MD [address] [place] [phone] Social History Tobacco Use Types Packs/Day Years [...] [facility] - [address] [address] Micaela Hoff MD [address] [facility], Level [address] [place] [phone] documented as of this encounter Procedures Procedure [...] ? TERI SMITH ? Accession #: ? [id number] ? : ? 1980 (Age: 35) ??F [...] Santos 09/11/2015 10:58 AM End of Report [facility] 09/10/2015 10:0 0 EST 09/11/2015 10:00 EST Roberto Zuleta MD PATHOLOGY ORDERABLES [facility] [address] [place] [address] documented in this encounter Visit Diagnoses Not on filedocumented in this encounter Additional Health Concerns Infection Onset Date Last Indicated Resolved Time MRSA 10/20/2011 10/20/2011 documented as of this encounter Care Teams Business Team Leader Relationship Specialty Start Date End Date Kaylynn Jones MD [facility] [place] [address] PCP - General 03/02/15 documented as of this encounter
--- OUTSIDE RECORDS SUMMARY | 2024-07-12 18:06 | XMS_ITS | Encounter Summary ---
Author Organization [facility] Address [address] [place] [address] Care Team Providers Care Spray Dry Operator Name Role Phone None, Provider Primary Care Provider Unavailabl e Reason for Visit * Reason Onset Date Comments Routine Visit 09/06/2014 Encounter Details Date Type Department Care Team (Late st Contact Info) Description 09/06/2014 Orders Only [facility] Obstetrics & Midwifery - [address] [phone] Linda Bustillos MD Supervision of other high-risk [...] [facility] Rheumatology & Immunology - [address] [address] Micaela Hoff MD [address] [place] [address], [address] [place] [phone] documented as of this encounter Visit Diagnoses Diagnosis Supervision of other high-risk (V23.89)- Primary Supervision of other high-risk documented in this encounter Additional Health Concerns Infection Onset Date Last Indicated Resolved Time MRSA 10/20/2011 10/20/2011 documented as of this encounter Care Teams Spray Dry Operator Relationship Specialty Start Date End Date None, Provider PCP - General 06/09/14 03/01/15 documented as of this encounter
--- OUTSIDE RECORDS SUMMARY | 2024-07-12 18:06 | XMS_ITS | Encounter Summary ---
Author Organization Health system Address [address] [place] [address] Care Team Providers Care Correction Lieutenant Name Role Phone None, Provider Primary Care Provider Unavailabl e Encounter Details Date Type Department Care Team (Late st Contact Info) Description 08/08/2014 Orders Only [facility] OBGYN Services - [address] [address] Luz Maria Cortes LPN [address] [place] [address] Social History Tobacco Use Types Packs/Day Years [...] Info) Description 12/29/2024 10:20 EST Office Visit [facility] Rheumatology & Immunology - [address] [address] Micaela Hoff MD [address] [place] [address], [facility] [address] [place] [address] documented as of this encounter Visit Diagnoses Not on filedocumented in this encounter Additional Health Concerns Infection Onset Date Last Indicated Resolved Time MRSA 10/20/2011 10/20/2011 documented as of this encounter Care Teams Correction Lieutenant Relationship Specialty Start Date End Date None, Provider PCP - General 06/09/14 03/01/15 documented as of this encounter
--- OUTSIDE RECORDS SUMMARY | 2024-07-12 18:06 | XMS_ITS | Encounter Summary ---
Author Organization [facility] Address [address] [place] [address] Care Team Providers Care Bottom Turning Lathe Tender Name Role Phone None, Provider Primary Care Provider Unavailabl e Reason for Visit * Reason Onset Date Comments Other 07/26/2014 Yeast infection symptoms Encounter Details Date Type Department Care Team (Late st Contact Info) Description 07/26/2014 Orders Only [facility] Obstetrics & Midwifery - [facility] [address] [place] [address] Soledad Crawley, RN Social History Tobacco Use [...] Notes * Soledad Crawley, JANNA - 07/26/2014 1422 EDT Call from Teri with complaints of yeast infection symptoms- states she has had them in the past prior to with good results from OTC treatment. Asking if safe to use vaginal applicator due to cerclage placement last week. Discussed with Dr. Nam who states there are no contraindications.Relayed to Teir who asked that a Rx be called in so that insurance can cover. Order placed for 7 day applicator treatment, pt aware. documented in this encounter Plan of Treatment Upcoming Encounters Date Type Department Care Team (Late st Contact Info) Description 12/29/2024 10:20 EST Office Visit [facility] Rheumatology & Immunology - [address] [address] Micaela Hoff MD [address] [place] [address], [address] [place] [phone] documented as of this encounter Visit Diagnoses Not on filedocumented in this encounter Additional Health Concerns Infection Onset Date Last Indicated Resolved Time MRSA 10/20/2011 10/20/2011 documented as of this encounter Care Teams Bottom Turning Lathe Tender Relationship Specialty Start Date End Date None, Provider PCP - General 06/09/14 03/01/15 documented as of this encounter
--- OUTSIDE RECORDS SUMMARY | 2024-07-12 18:06 | XMS_ITS | Encounter Summary ---
Author Organization [facility] Address [address] [place] [address] Care Team Providers Care Solutions Developer Name Role Phone None, Provider Primary Care Provider Unavailabl e Reason for Referral * ASBESTOS ABATEMENT WORKER (Routine) - Closed Specialty Diagnoses / Procedures [id number] Referred To Contact Diagnoses with history of pre-term labor Cervical shortening, antepartum condition or complication Procedures SHELTER TRANSVAGINAL Stiven Logan MD [address] [place] [phone] Referral ID Status Reason Start Date Expiration Date Visits Re quested Visits Authorized [id number] Closed 07/11/2014 1 1 Reason for Visit * Reason Comments Routine Visit Encounter Details Date Type Department Care Team (Late st Contact Info) Description 07/11/2014 8:45 EDT Routine [facility] Obstetrics & Midwifery - [address] [phone] Stiven Logan MD [address] [place] [phone] GA: 16w4d Discharge Disposition: Auto Discharge [...] EDTAssociated Problem(s): with history of pre-term labor [facility] attendnig S: She is doing well. She had a heavier discharge a couple weeks ago but it resolved. She is back to her normal. No cramping or bleeding. She says she has had some headaches (frontal). O: see vitals A: IUP at 16w4d doing well Headache Hx of on [place] P: She has her lab slips for [...] [facility] Rheumatology & Immunology - [address] [phone] Micaela Hoff MD [address] [place] [address], [address] [place] [phone] documented as of this encounter Procedures Procedure Name Priority Date/Time Associated Diagnosis Comments SHELTER TRANSVAGINAL Routine 07/18/2014 11:5 0 EDT with history of pre-term labor Cervical shortening, antepartum condition or complication documented in this encounter Results * SHELTER TRANSVAGINAL (07/18/2014 11:50 EDT) Anatomical Region Laterality [...] no free fluid visible. Report Summary: Impression: [id number] Transvaginal obstetrical scan A transvaginal scan was [...] no free fluid visible. Report Summary: Impression: [id number] Transvaginal obstetrical scan A transvaginal scan was [...] ... ... ... ... Stiven Logan MD [facility] documented in this encounter Visit Diagnoses Diagnosis with history of pre-term labor- Primary Cervical shortening, antepartum condition or complication documented in this encounter Additional Health Concerns Infection Onset Date Last Indicated Resolved Time MRSA 10/20/2011 10/20/2011 documented as of this encounter Care Teams Solutions Developer Relationship Specialty Start Date End Date None, Provider PCP - General 06/09/14 03/01/15 documented as of this encounter
--- OUTSIDE RECORDS SUMMARY | 2024-07-12 18:06 | XMS_ITS | Encounter Summary ---
Author Organization [facility] Address [address] [place] [address] Care Team Providers Care Strawhat Blocking Operator Name Role Phone None, Provider Primary Care Provider Unavailabl e Encounter Details Date Type Department Care Team (Late st Contact Info) Description 12/13/2014 Results Only [facility] [address] [place], [place] [address] Giovanni Souza MD [address] [place] [address] [address] [place], [place] [address] Social History Tobacco Use Types Packs/Day Years [...] [facility] Rheumatology & Immunology - [facility] [address] [place], [place] [phone] Micaela Hoff MD 111 [facility], [address] [place] [phone] documented as of this encounter Procedures Procedure [...] ? TERI SMITH ? Accession #: ? [id number] ? : ? 1980 (Age: 34) ??F [...] Sectioning reveals a central pinpoint lumen. ??Two loan servicing representative cross sections are submitted as A1. B. ?Received in formalin labelled with proper patient identification (initials S, E) and portion right tube is a tubular structure (2.2 cm in length and 0.5 cm in diameter). ??The serosal surface is and smooth. Sectioning reveals a central pinpoint lumen. ??Two loan servicing representative cross sections are submitted as B1. Angi Mcdaniel 12/14/2014 9:37 AM End of Report [facility] 12/13/2014 9:01 EST 12/14/2014 9:01 EST Giovanni Souza MD PATHOLOGY ORDERABLES [facility] [address] [place] [address] documented in this encounter Visit Diagnoses Not on filedocumented in this encounter Additional Health Concerns Infection Onset Date Last Indicated Resolved Time MRSA 10/20/2011 10/20/2011 documented as of this encounter Care Teams Strawhat Blocking Operator Relationship Specialty Start Date End Date None, Provider PCP - General 06/09/14 03/01/15 documented as of this encounter
--- OUTSIDE RECORDS SUMMARY | 2024-07-12 18:07 | XMS_ITS | Encounter Summary ---
Author Organization [facility] Address [address] [place] [address] Care Team Providers Care Horse Racetrack Manager Name Role Phone Cara Arteaga MD Primary Care Provider Reason for Visit * Reason Onset Date Comments 02/06/2014 LMP 3-8-14 Encounter Details Date Type Department Care Team (Late st Contact Info) Description 02/06/2014 Telephone [facility] Obstetrics & Midwifery - [facility] [address] [place], [place] [phone] Duyen Haro, RN (LMP 3-8-14) Social History [...] EDT Phone call from rosa Williamson. Was [facility] patient in [phone]. Delivered full- term daughter afterseptum repair, was [...] [facility] Immunology - [address] [address] Micaela Hoff MD [address] [facility], [address] [place] [phone] documented as of this encounter Visit Diagnoses Diagnosis Absence of menstruation- Primary documented in this encounter Additional Health Concerns Infection Onset Date Last Indicated Resolved Time MRSA 10/20/2011 10/20/2011 documented as of this encounter Care Teams Horse Racetrack Manager Relationship Specialty Start Date End Date Cara Arteaga MD [address] [place] [phone] PCP - General 01/25/13 02/06/14 documented as of this encounter
--- OUTSIDE RECORDS SUMMARY | 2024-07-12 18:07 | XMS_ITS | Encounter Summary ---
Author Organization [facility] Address [address] [place] [address] Care Team Providers Care Tobacco Cloth Reclaimer Name Role Phone Yair Dow MD Primary Care Provider [phone] Reason for Visit * Reason Onset Date Comments Paperwork request 02/02/2012 Encounter Details Date Type Department Care Team (Late st Contact Info) Description 02/02/[address] [address] Yair Dow MD [address] [place] [address] [phone] Paperwork request Social History Tobacco [...] Visit [facility] Rheumatology & Immunology - [facility] [address] [place], [place] [address] Micaela Hoff MD 111 [facility], [address] 5 [place] [phone] documented as of this encounter Visit Diagnoses Not on filedocumented in this encounter Additional Health Concerns Infection Onset Date Last Indicated Resolved Time MRSA 10/20/2011 10/20/2011 documented as of this encounter Care Teams Tobacco Cloth Reclaimer Relationship Specialty Start Date End Date Yair Dow MD [address] [place] [address] PCP - General 06/03/11 03/08/12 documented as of this encounter
--- OUTSIDE RECORDS SUMMARY | 2024-07-12 18:07 | XMS_ITS | Encounter Summary ---
Author Organization [facility] Address [address] [place] [address] Care Team Providers Care Machine Fixer Name Role Phone Ladonna Maurer Primary Care Provider [phone] Reason for Visit * Reason Comments Fatigue Joint Pain Encounter Details Date Type Department Care Team (Late st Contact Info) Description 05/12/2012 13:00 EDT Office Visit [facility] Rheumatology & Immunology - [facility] [address] [place], [place] [address] Denise Self MD 111 [facility], [address] [place] [address] Pain in joint, multiple sites; [...] has muscle weakness. 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 Rheumatology & Immunology - [address] [phone] Micaela Hoff MD [address] [place] [address], [address] [place] [phone] documented as of this encounter Visit Diagnoses [...] documented as of this encounter Care Teams Machine Fixer Relationship Specialty Start Date End Date Ladonna Maurer PA [address] [place] [address] PCP - General 05/12/12 01/24/13 documented as of this encounter
--- OUTSIDE RECORDS SUMMARY | 2024-07-12 18:07 | XMS_ITS | Encounter Summary ---
Author Organization [facility] Address [address] [place] [address] Care Team Providers Care Him Specialist Name Role Phone Yair Dow MD Primary Care Provider [phone] Encounter Details Date Type Department Care Team (Late st Contact Info) Description 12/12/[address] [address]04891 Yair Dow MD [address] [place] [address] [phone] Social History Tobacco Use Types Packs/Day Years [...] [facility] Rheumatology & Immunology - [facility] [address] [place], [place] [phone] Micaela Hoff MD 111 [facility], [address] [place] [phone] documented as of this encounter Visit Diagnoses Not on filedocumented in this encounter Additional Health Concerns Infection Onset Date Last Indicated Resolved Time MRSA 10/20/2011 10/20/2011 documented as of this encounter Care Teams Him Specialist Relationship Specialty Start Date End Date Yair Dow MD [address] [place] [phone] PCP - General 06/03/11 03/08/12 documented as of this encounter
--- OUTSIDE RECORDS SUMMARY | 2024-07-12 18:07 | XMS_ITS | Encounter Summary ---
Author Organization [facility] Address [address] [place] [address] Care Team Providers Care Traffic And Transport Planner Name Role Phone Yair Dow MD Primary Care Provider [phone] Reason for Visit * Reason Comments Pharyngitis Pt arrives via triag e with c/o sore throat. Pt states that she has white spots on back of throat. Rapid Strep negative through [facility]. Pt in NAD. No drooling noted. Encounter Details Date Type Department Care Team (Late st Contact Info) Description 03/04/2012 16:12 EDT - 03/04/2012 18:50 EDT Emergency [facility] Emergency Department - [facility] [address] [place], [place] [address] Jude Riley PA-C [address] [address] Emergency, MD Fede Tonsillitis Discharge [...] Date ??? Upper gastrointestinal endoscopy 09/03/2010 ??? [place] tooth extraction No Known Allergies History Substance Use Topics ??? Smoking status: Current Everyday Smoker -- 1.0 packs/day ??? Smokeless tobacco: Never Used ??? Alcohol Use: 10.0 oz/week 2 Glasses of wine per week rare Family History Problem Relation Age of Onset ??? High Blood Pressure Mother brain aneurysm ??? Stroke Mother ??? Heart Disease Father 50 [place] ??? Diabetes Father ??? Thyroid Cancer/Nodule Maternal Aunt Cancer ??? Heart Disease Maternal Grandmother [place] ??? Diabetes Maternal Grandmother ??? Cancer Maternal [...] encounter Miscellaneous Notes * Scanned Note-Null - TITLE I MATH TUTOR, SCAN 2 - 03/08/2012 9365 EDT documented in this encounter Plan of Treatment Upcoming Encounters Date Type Department Care Team (Late st Contact Info) Description 12/29/2024 10:20 EST Office Visit [facility] Rheumatology & Immunology - [address] [phone] Micaela Hoff MD [address] [place] [address] [address] [place] [phone] documented as of this encounter Visit Diagnoses Diagnosis Tonsillitis Acute tonsillitis documented in this encounter Additional Health Concerns Infection Onset Date Last Indicated Resolved Time MRSA 10/20/2011 10/20/2011 documented as of this encounter Care Teams Traffic And Transport Planner Relationship Specialty Start Date End Date Yair Dow MD [address] [place] [phone] PCP - General 06/03/11 03/08/12 documented as of this encounter
--- OUTSIDE RECORDS SUMMARY | 2024-07-12 18:07 | XMS_ITS | Encounter Summary ---
Author Organization [facility] Address [address] [place] [address] Care Team Providers Care Rounding Machine Tender Name Role Phone Ladonna Maurer Primary Care Provider [phone] Reason for Referral * Consult (Routine/Next Available) - Closed Specialty Diagnoses / Procedures Referred By Contact Referred To Contact Gastroenterology and Hepatology Diagnoses Irritable bowel syndrome (IBS) Drew Grijalva MD [address] [place], [place] [address] [address] [place] [phone] [facility] [address] [place] [address] Referral ID Status Reason Start Date Expiration Date V isits Requested Visits Authorized [id number] Closed Specialty Services Required 11/16/2012 1 1 Question Answer Reason for Request: multiple bowel issues - not thyroid related Reason for Visit * Reason Comments Hypothyroidism Encounter Details Date Type Department Care Team (Latest Contact Info) Description 11/16/2012 9:00 EST Office Visit [facility] Endocrinology - [facility] [address] [place] [address] Drew Grijalva MD 62 [facility] [address] [place] [address] Unspecified hypothyroidism (Primary Dx); Mena's [...] 01/14/2012 No results found for this basename: [id number] No components found with this basename: [email or web address] No results found for this basename: [id number] Lab Results Component Value Date FREET4 1.8 [...] Description 12/29/2024 10:20 EST Office Visit [facility] Rheumatology & Immunology - [address] [address] Micaela Hoff MD 111 [facility], [address] [place] [address] Scheduled Referrals Name Type Priority Associated Diagnoses Order Schedule AMB CONSULT GASTROENTEROLOGY Outpatient Referral Routine Irritable bowel syndrome (IBS) Ordered: 11/16/2012 documented as of this encounter Results * TSH (11/16/2012 9:32 EST) TSH 1.00 0.35 - 5.00 uIU/ml [facility] Blood specimen (specimen) 11/16/2012 9:32 EST 11/16/2012 15:54 EST Drew Grijalva MD CHEMISTRY & BLOOD GAS ORDERABLES [facility] [address] [place] [address] * T4 FREE (11/16/2012 9:32 EST) Free T4 1.5 0.8 - 1.8 ng/dL [facility] Blood specimen (specimen) 11/16/2012 9:32 EST 11/16/2012 15:54 EST Drew Grijalva MD CHEMISTRY & BLOOD GAS ORDERABLES [facility] [address] [place] [address] documented in this encounter Visit Diagnoses Diagnosis Unspecified hypothyroidism- Primary Mena's thyroiditis Chronic lymphocytic thyroiditis Irritable bowel syndrome (IBS) Irritable bowel syndrome documented in this encounter Additional Health Concerns Infection Onset Date Last Indicated Resolved Time MRSA 10/20/2011 10/20/2011 documented as of this encounter Care Teams Rounding Machine Tender Relationship Specialty Start Date End Date Ladonna Maurer PA [address] [place] [address] PCP - General 05/12/12 01/24/13 documented as of this encounter
--- OUTSIDE RECORDS SUMMARY | 2024-07-12 18:07 | XMS_ITS | Encounter Summary ---
Author Organization [facility] Address [address] [place] [address] Care Team Providers Care Research Chemist Name Role Phone Yair Dow MD Primary Care Provider [phone] Reason for Visit * Reason Onset Date Comments Results 01/26/2012 Encounter Details Date Type Department Care Team (Late st Contact Info) Description 01/26/[address] [address] Yair Dow MD [address] [place] [address] [facility] [address] [place] [address] Results Social History Tobacco Use [...] Info) Description 12/29/2024 10:20 EST Office Visit [facility] Rheumatology & Immunology - [address] [phone] Micaela Hoff MD 111 [facility], [address] [place] [address] documented as of this encounter Visit Diagnoses Not on filedocumented in this encounter Additional Health Concerns Infection Onset Date Last Indicated Resolved Time MRSA 10/20/2011 10/20/2011 documented as of this encounter Care Teams Research Chemist Relationship Specialty Start Date End Date Yair Dow MD [address] [place] [phone] PCP - General 06/03/11 03/08/12 documented as of this encounter
--- OUTSIDE RECORDS SUMMARY | 2024-07-12 18:07 | XMS_ITS | Encounter Summary ---
Author Organization [facility] Address [address] [place] [address] Care Team Providers Care Bulk Delivery Driver Name Role Phone Unknown, Provider Primary Care Provider [phone] Reason for Visit * Reason Onset Date Comments Release of Information 03/09/2012 TRANSFER OF CARE TO [facility] Encounter Details Date Type Department Care Team (Late Contact Info) Description 03/09/[address] [address] Unknown, Provider, Release of Information (TRANSFER OF CARE TO [facility]) Social History Tobacco Use Types Packs/Day [...] all her records have been transferred to [facility] This was done on 03/05/2012 documented in this encounter Plan of Treatment Upcoming Encounters Date Type Department Care Team (Late Contact Info) Description 12/29/2024 10:20 EST Office Visit [facility] Rheumatology & Immunology - [facility] [address] [place] [address] Micaela Hoff MD 111 [facility], [address] [place] [phone] documented as of this encounter Visit Diagnoses Not on filedocumented in this encounter Additional Health Concerns Infection Onset Date Last Indicated Resolved Time MRSA 10/20/2011 10/20/2011 documented as of this encounter Care Teams Bulk Delivery Driver Relationship Specialty Start Date End Date Unknown, Provider, PCP - General 03/09/12 05/11/12 documented as of this encounter
--- OUTSIDE RECORDS SUMMARY | 2024-07-12 18:07 | XMS_ITS | Encounter Summary ---
Author Organization [facility] Address [address] [place] [address] Care Team Providers Care Sourcing Intern Name Role Phone Conor Angel MD Primary Care Provider [phone] Reason for Visit * Reason Onset Date Comments 04/17/2014 Encounter Details Date Type Department Care Team (Late st Contact Info) Description 04/17/2014 Telephone [facility] OBGYN Services - [facility] [address] [place] [address] Brittani Black, RN Social History Tobacco Use [...] Notes * Telephone Encounter - Brittani Black, RN - 04/17/2014 1103 EDT .Initial Appt Screening Form Best Contact Number: [phone] [facility] Provider: BRITTANY/ LMP/Pt estimate gestational age: LMP- 03/17/2014 Regular cycles + home test 6/14/14 G/P: P: 1021 HEIGHT: 67 WEIGHT AT LMP: 160 lb Blood type (pt provided): A Positive Current medications (prescribed and not prescribed): 88 mcg synthroid, 40 mg omeprazole, PNV- will send to pharmacy- [facility] sohail Are you a smoker?: Quit- [...] Description 12/29/2024 10:20 EST Office Visit [facility] Rheumatology & Immunology - [address] [address] Micaela Hoff MD 111 [facility], [address] [place] [address] documented as of this encounter Visit Diagnoses Not on filedocumented in this encounter Additional Health Concerns Infection Onset Date Last Indicated Resolved Time MRSA 10/20/2011 10/20/2011 documented as of this encounter Care Teams Sourcing Intern Relationship Specialty Start Date End Date Conor Angel MD [address] [place] [address] PCP - General 02/07/14 06/08/14 documented as of this encounter
--- OUTSIDE RECORDS SUMMARY | 2024-07-12 18:07 | XMS_ITS | Encounter Summary ---
Author Organization [facility] Address [address] [place] [address] Care Team Providers Care Security Public Safety Officer Name Role Phone Yair Dow MD Primary Care Provider [phone] Reason for Referral * Consult (Routine/Next Available) - Closed Specialty Diagnoses / Procedures Referred By Contact Referred To Contact Gastroenterology and Hepatology Diagnoses Bloating Abdominal pain Kaylynn Riec MD [address] [address] [facility] [address] [place] [address] Referral ID Status Reason Start Date Expiration Date V isits Requested Visits Authorized [id number] Closed Specialty Services Required 02/10/2012 1 1 [...] Info) Description 02/10/2012 13:30 [place] [address] Kaylynn Rice MD [address] [phone] Abdominal pain; Bloating; Headache; Dizziness; Numbness; Fatigue [...] history of ulcers / follow uo Dr Perston elaine / requesting referral to him ??? [...] 68.493 kg (151 lb) BMI 23.65 kg/m2 RgK750% LMP 12/17/2011 Physical Exam Vitals reviewed. Constitutional: [...] [facility] Rheumatology & Immunology - [address] [phone] Micaela Hoff MD [address] [place] [address], [address] [place] [address] Scheduled Referrals Name Type Priority [...] 01, 2012 11:04:00 PM Signs and Symptoms/Comments: ??784.9-BJVZGRRW-YJB-9-CM 780.4-DIZZINESS AND WKIAYVTWO-KIL-5-CM Worsening fatigue, numbness/weakness, blurry vision, dizziness. ??Rule [...] 01, 2012 11:04:00 PM Signs and Symptoms/Comments: 784.5-BFEEBYWL-FIJ-9-CM 780.4-DIZZINESS AND DHSCSJBUZ-BIR-0-CM Worsening fatigue, numbness/weakness, blurry vision, dizziness. Rule [...] documented as of this encounter Care Teams Security Public Safety Officer Relationship Specialty Start Date End Date Yair Dow MD [address] [place] [phone] PCP - General 06/03/11 03/08/12 documented as of this encounter
--- OUTSIDE RECORDS SUMMARY | 2024-07-12 18:07 | XMS_ITS | Encounter Summary ---
Author Organization [facility] Address [address] [place] [address] Care Team Providers Care Powerhouse Helper Name Role Phone Conor Angel MD Primary Care Provider [phone] Encounter Details Date Type Department Care Team (Late st Contact Info) Description 04/25/2014 Orders Only [facility] OBGYN Services - [address] [phone] Christiane Elizabeth RN Unspecified complication of , [...] [facility] - [address] [phone] Micaela Hoff MD [address] [place] [address], [address] [place] [phone] documented as of this encounter Results * BACTERIAL CULTURE, URINE (04/26/2014 16:16 EDT) Specimen Description Urine [facility] Result Less than 10,000 CFU/ml Usual urogenital marquita. [facility] Report Status 04/28/2014 Final [facility] Urine specimen (specimen) URINE / Unknown 04/26/2014 16:16 EDT 04/26/2014 16:46 EDT Rehan Abarca MD MICROBIOLOGY - GENER AL ORDERABLES Performing Organization Address [facility] Co de Phone Number [facility] [address] [place] [address] * THYROID CASCADE (04/26/2014 16:15 EDT) [facility] TSH 2.39 0.35 - 5.00 uIU/ml [facility] Comment: TSH cascade is not recommended for patients in which pituitary or hypothalamic disorders are suspected. Blood specimen (specimen) 04/26/2014 16:15 EDT 04/26/2014 16:34 EDT Rehan Abarca MD CHEMISTRY & BLOOD GA S ORDERABLES Performing Organization Address [facility] de Phone Number [facility] [address] [place] [address] * HIV 1/2 ANTIBODY (04/26/2014 16:15 EDT) [facility] HIV 1/2 Antibody Negative [facility] Comment: If acute HIV-1 infection is suspected in a high risk patient, submit plasma specimen for HIV-1 RNA quantification test. Reference Range: ??Negative Assayed utilizing [employer] chemiluminescent technology. Blood specimen (specimen) 04/26/2014 16:15 EDT 04/26/2014 16:34 EDT Rehan Abarca MD IMMUNOLOGY AND SEROL OGY ORDERABLES Performing Organization Address [facility] Co de Phone Number [facility] [address] [place] [address] * CHLAMYDIA/GC AMPLIFIED, THIN PREP (04/26/2014 16:11 EDT) Specimen Description Cervix, ThinPrep vial [facility] Chlamydia Result No Chlamydia trachomatis DNA detected by manager corporate mediated amplification. [facility] GC Result No Neisseria gonorrhoeae DNA detected by manager corporate mediated amplification. [facility] Specimen of unknown material (specimen) TOPOGRAPHY UNKNOWN / Unknown 04/26/2014 16:11 EDT 04/28/2014 7:50 EDT Rehan Abarca MD MICROBIOLOGY - GENER AL ORDERABLES Performing Organization Address City/State/[facility] Co de Phone Number [facility] [address] [place] [address] documented in this encounter Visit Diagnoses Diagnosis [...] documented as of this encounter Care Teams Powerhouse Helper Relationship Specialty Start Date End Date Conor Angel MD [address] [place] [address] PCP - General 02/07/14 06/08/14 documented as of this encounter
--- OUTSIDE RECORDS SUMMARY | 2024-07-12 18:07 | XMS_ITS | Encounter Summary ---
Author Organization [facility] Address [address] [place] [address] Care Team Providers Care Pump Runner Name Role Phone Conor Angel MD Primary Care Provider [phone] Reason for Visit * Reason Comments Pelvic Pain RLQ pain, spotting 4 +6 EGA by LMP. Encounter Details Date Type Department Care Team (Late st Contact Info) Description 02/10/2014 15:30 EDT Office Visit [facility] - [address] [phone] Sarah Rogers MD [address] [place] [address], Level [address] [place] [address] of unknown anatomic location (Primary [...] [facility] - [address] [address] Micaela Hoff MD [address] [place] [address], [address] [place] [phone] documented as of this encounter Visit Diagnoses Diagnosis of unknown anatomic location- Primary state, incidental Unspecified disorder of menstruation and other abnormal bleeding from female genital tract documented in this encounter Additional Health Concerns Infection Onset Date Last Indicated Resolved Time MRSA 10/20/2011 10/20/2011 documented as of this encounter Care Teams Pump Runner Relationship Specialty Start Date End Date Conor Angel MD [address] [place] [address] PCP - General 02/07/14 06/08/14 documented as of this encounter
--- OUTSIDE RECORDS SUMMARY | 2024-07-12 18:07 | XMS_ITS | Encounter Summary ---
Author Organization [facility] Address [address] [place] [address] Care Team Providers Care Traffic Superintendent Name Role Phone Conor Angel MD Primary Care Provider [phone] Reason for Referral * Consult (Routine) - Specialty Report Received Specialty Diagnoses / Procedures Referred By Ehsan patel Referred To Contact Obstetrics Diagnoses History of loss in prior , currently Duyen Haro RN [facility] Ep[facility] Ob/M[facility] [address] [place] [address] Referral ID Status Reason Start Date Expiration Date Visits Requested Visits Authorized [id number] Specialty Report Received Specialty Services Required 04/26/2014 1 1 Question Answer Reason for Request: History of 20 week loss, uterine septum with subsequent septoplasty.2nd preg Rx vag prog,39 wk del Scheduling Comments (optional ? describe specific scheduling needs if applicable): within a month * CHAINER (Routine) - Closed Specialty Diagnoses / Procedures Referred By Ehsan t Referred To Contact Diagnoses Supervision of other normal Procedures DIRECTOR STRATEGY US OB FIRST TRIMESTER TRANSVAGINAL Rehan Abarca MD [address] [place] [address] [place] [address] Referral ID Status Reason Start Date Expiration Date Visits Re quested Visits Authorized [id number] Closed 04/26/2014 1 1 Reason for Visit * Reason Comments Initial Visit Encounter Details Date Type Department Care Team (Late st Contact Info) Description 04/26/2014 14:45 EDT Initial [facility] OBGYN Services - [address] [address] Rehan Abarca MD [address] [place] [address] [place] [address] GA: [id number] Social History Tobacco Use Types [...] Value: No Chlamydia trachomatis DNA detected by conference reservationist mediated amplification. Result-GC Amp Probe Value: No Neisseria gonorrhoeae DNA detected by conference reservationist mediated amplification. TYPE AND SCREEN Collection Time [...] [facility] Rhe[facility]ology [facility] Immunology - [address] [id number] Micaela Hoff MD [address] [place] [address], Level 5 [place] [address] Scheduled Referrals Name Type Priority Associated Diagnoses Orde r Schedule AMB CONS/FOLLOW UP MATERNAL MEDICINE Outpatient Referral Routine History of loss in prior , currently Ordered: 04/26/2014 documented as of this encounter Procedures Procedure Name Priority Date/Time Associated Diagnosis Comments DIRECTOR STRATEGY US OB FIRST TRIMESTER TRANSVAGINAL Routine 05/11/2014 14:27 EDT Supervision of other normal TYPE AND SCREEN Routine 04/26/2014 16:44 EDT CHLAMYDIA/N. GONORRHOEAE AMPLIFIED NUCLEIC ACID, THINPREP Routine 04/26/2014 16:11 EDT Supervision of other normal documented in this encounter Results * DIRECTOR STRATEGY US OB FIRST TRIMESTER TRANSVAGINAL (05/11/2014 14:27 [...] Summary: Impression: 1st Trimester OB scan ,transvaginal [phone] First trimester obstetrical US, transvaginal This is [...] Summary: Impression: 1st Trimester OB scan ,transvaginal [phone] First trimester obstetrical US, transvaginal This is a [place] gestation. Viable IUP. CRL is consistent with menstrual dating. A normal heart beat and yolk sac were noted. Previously resected septum not seen. Recommendations: Follow-up as clinically indicated. Follow-up with [facility] for care. Procedure Note 06/29/2014 Addendum Begins [...] Summary: Impression: 1st Trimester OB scan ,transvaginal [phone] First trimester obstetrical US, transvaginal This is a [place] gestation. Viable IUP. CRL is consistent with menstrual dating. A normal heart beat and yolk sac were noted. Previously resected septum not seen. Recommendations: Follow-up as clinically indicated. Follow-up with [facility] for care. Addendum Ends Indication: dating. Septate [...] Summary: Impression: 1st Trimester OB scan ,transvaginal [phone] First trimester obstetrical US, transvaginal This is a [place] gestation. Viable IUP. CRL is consistent with menstrual dating. A normal heart beat and yolk sac were noted. Previously resected septum not seen. Recommendations: Follow-up as clinically indicated. Follow-up with [facility] for care. Rehan Abarca MD IMG US DIRECTOR STRATEGY ORDERABLE S * TYPE AND SCREEN (04/26/2014 16:44 EDT) ABO A [facility] Rh Factor Positive [facility] Antibody Screen Negative [facility] 04/26/2014 16:4 4 EDT Provider Theresa [facility] TESTS Performing Organization Address [facility] Co de Phone Number [facility] * HEPATITIS C ANTIBODY (04/26/2014 16:15 EDT) Hepatitis C Ab Negative [facility] Comment:Reference Range: Neg ative Blood specimen (specimen) 04/26/2014 16:15 EDT 04/26/2014 16:34 EDT Rehan Abarca MD CHEMISTRY & BLOOD GA S ORDERABLES [facility] [address] [place] [address] * CHLAMYDIA/GC AMPLIFIED, THIN PREP (04/26/2014 16:11 EDT) Specimen Description Cervix, ThinPrep vial [facility] Chlamydia Result No Chlamydia trachomatis DNA detected by conference reservationist mediated amplification. [facility] GC Result No Neisseria gonorrhoeae DNA detected by conference reservationist mediated amplification. [facility] Specimen of unknown material (specimen) TOPOGRAPHY UNKNOWN / Unknown 04/26/2014 16:11 EDT 04/28/2014 7:50 EDT Rehan Abarca MD MICROBIOLOGY - GENER AL ORDERABLES [facility] [address] [place] [address] documented in this encounter Visit Diagnoses Diagnosis [...] as of this encounter Care Teams Traffic Superintendent Relationship Specialty Start Date End Date Conor Angel MD [address] [place] [address] PCP - General 02/07/14 06/08/14 documented as of this encounter
--- OUTSIDE RECORDS SUMMARY | 2024-07-12 18:07 | XMS_ITS | Encounter Summary ---
Author Organization [facility] Address [address] [place] [address] Care Team Providers Care Fundraising Director Name Role Phone Cara Arteaga MD Primary Care Provider Encounter Details Date Type Department Care Team (Late st Contact Info) Description 11/18/2013 Results Only [facility] Laboratory Services - [facility] ([facility]) [address] [place], [place] [phone] Roberto Zuleta MD [address] [place] [address] [place] [phone] Social History Tobacco Use Types Packs/Day Years [...] [facility] - [facility] [address] [place], [place] [phone] Micaela Hoff MD [address] [facility], [address] [place] [phone] documented as of this encounter Procedures Procedure [...] ? TERI CROWE ? Accession #: ? [id number] ? : ? 1980 (Age: 33) ??F [...] Zuleta MD PATHOLOGY ORDERABLES Performing Organization Address City/State/[facility] Co de Phone Number [facility] [address] [place] [address] documented in this encounter Visit Diagnoses Not on filedocumented in this encounter Additional Health Concerns Infection Onset Date Last Indicated Resolved Time MRSA 10/20/2011 10/20/2011 documented as of this encounter Care Teams Fundraising Director Relationship Specialty Start Date End Date Cara Arteaga MD [address] [place] [phone] PCP - General 01/25/13 02/06/14 documented as of this encounter
--- OUTSIDE RECORDS SUMMARY | 2024-07-12 18:07 | XMS_ITS | Encounter Summary ---
Author Organization [facility] Address [address] [place] [address] Care Team Providers Care Cosmetician Name Role Phone Yair Dow MD Primary Care Provider [phone] Reason for Visit * Reason Comments Fatigue felling tired; diffi culty with daily functioning; weight loss; Abdominal Pain constipation; has be en dx with hiatal hernia Vaginitis seen in Dec now has sx again Encounter Details Date Type Department Care Team (Late st Contact Info) Description 01/12/2012 16:00 EDT Office Visit [address] [address] Kaylynn Rice MD [address] [phone] Fatigue (Primary Dx); Bacterial vaginosis Discharge Disposition: [...] similar to when she had thyroid issues. [place] like she was going to fall asleep driving. Abd pain, daily. Diagnosed with hiatal hernia, thinks CP may be related to that. + [place] thinks they're related to allergies. No SOB or cough. Hiatal hernia diagnosed in 2009, had EGD (while being worked up at bariatric center), diagnosed with ulcers and hernia. Taking omeprazole. No f/u recommended. Diet: [place] diet. String cheese, yogurt for breakfast. Protein bars, soup for lunch. Eats a lot of eggs. Smoker- 1 ppd. EtOH- 2-3 drinks/week. No drug use. Works in [employer] in [place]. Tried wellbutrin for smoking cessation. [place] very aggressive. I wanted to hurt someone, [place] anxiety and shaky. Only took for a [...] [facility] Rheumatology & Immunology - [address] [address] Micaela Hoff MD [address] [facility], [address] [place] [address] documented as of this encounter [...] LAB Calcium 9.6 8.5 - 10.5 mg/dl [facility] Calculated Calcium 9.7 8.5 - 10.5 mg/dl [facility] Glucose, Serum 83 70 - 100 mg/dl [facility] Fasting? Unknown [facility] Blood specimen (specimen) 01/12/2012 16:38 EDT 01/12/2012 18:55 EDT Kaylynn Rice MD CHEMISTRY & BLOOD G ORDERABLES [facility] [address] [place] [address] * HEMAGRAM AND DIFFERENTIAL (01/12/2012 16:38 EDT) WBC 7.69 4.0 - 12.4 K/cmm [facility] RBC 4.79 3.86 - 5.04 M/cmm [facility] Hemoglobin 14.6 11.6 - 15.2 gm/dl [facility] HCT 42.5 34.9 - 44.4 % [facility] MCV 89 81 - 98 fl [facility] MCH 30.5 26.7 - 33.3 pg [facility] MCHC 34.4 32.1 - 35.9 gm/dl [facility] PLT 255 141 - 320 K/cmm [...] PROB E ORDERABLES [facility] [address] [place] [address] documented in this encounter Visit Diagnoses Diagnosis Fatigue- Primary Other malaise and fatigue Bacterial vaginosis Vaginitis and vulvovaginitis, unspecified documented in this encounter Additional Health Concerns Infection Onset Date Last Indicated Resolved Time MRSA 10/20/2011 10/20/2011 documented as of this encounter Care Teams Cosmetician Relationship Specialty Start Date End Date Yair Dow MD [address] [place] [phone] PCP - General 06/03/11 03/08/12 documented as of this encounter
--- OUTSIDE RECORDS SUMMARY | 2024-07-12 18:07 | XMS_ITS | Encounter Summary ---
Author Organization [facility] Address [address] [place] [address] Care Team Providers Care Snorkelling Instructor Name Role Phone Yair Dow MD Primary Care Provider [phone] Encounter Details Date Type Department Care Team (Latest Contact Info) Description 02/03/2012 12:32 EDT - 02/03/2012 23:59 EDT Hospital Encounter [facility] [address] [place] [address] Kenton Johnston MD Discharge Disposition: Home or [...] Code Departure Means Destination Home or Self Nursing Home documented in this encounter H&P Notes * Kenton Johnston MD - 02/03/2012 1346 EDT Sedation for Procedure History & Physical Date: 02/03/2012 Time: 13:46 Location: [address] Planned Procedure: Gastroscopy Chief Complaint/Indications for Procedure: Abdominal pain. History Previous Complication with Sedation and/or Anesthesia? No Allergies: No Known Allergies Current Medications: (Not in a hospital admission) Past Medical History: Past Medical History Diagnosis Date ??? Obese ??? History of tobacco use ??? Thyroid disease Social History: Past Surgical History Procedure Date ??? Upper gastrointestinal endoscopy 09/03/2010 ??? [place] tooth extraction History Substance Use Topics ??? Smoking status: Current Everyday Smoker -- 0.5 packs/day ??? Smokeless tobacco: Never Used ??? Alcohol Use: 10.0 oz/week 2 Glasses of wine per week rare Family History: Family History Problem Relation Age of Onset ??? High Blood Pressure Mother brain aneurysm ??? Stroke Mother ??? Heart Disease Father 50 MA ??? Diabetes Father ??? Thyroid Cancer/Nodule Maternal Aunt Cancer ??? Heart Disease Maternal Grandmother MA ??? Diabetes Maternal Grandmother ??? Cancer Maternal [...] documented in this encounter Procedure Notes * SPRINKLER WORKER, SCAN 2 - 02/04/2012 0802 EDTAssociated Order(s): PROCEDURE REPORTS - SCANNED documented in this encounter Miscellaneous Notes * Scanned Note-Null - SPRINKLER WORKER, SCAN 2 - 02/04/2012 1012 EDT * Scanned Note-Null - SPRINKLER WORKER, SCAN 2 - 02/04/2012 1012 EDT documented in this encounter Plan of Treatment Upcoming Encounters Date Type Department Care Team (Late st Contact Info) Description 12/29/2024 10:20 EST Office Visit [facility]ology - [address] [phone] Micaela Hoff MD [address] [place] [address], [address] [place] [address] documented as of this encounter Procedures Procedure Name Priority Date/Time Associated Diagnosis Comments PROCEDURE REPORTS - SCANNED 02/04/2012 8:02 EDT TISSUE TRANSGLUTAMINASE ANTIBODY, IGA Routine 02/03/2012 13:40 EDT documented in this encounter Results * PROCEDURE REPORTS - SCANNED (02/04/2012 8:02 EDT) 02/04/2012 8:02 EDT Narrative Transcriptions SPRINKLER WORKER, SCAN 2 - 02/04/2012 8:02 EDT Scan 2 Sports Team Marketing Intern PROCEDURE/MINOR GERI GICAL ORDERABLES * TTG AB, IGA, S (02/03/2012 13:40 EDT) tTG Ab, IgA, S <1.2 <4.0 (Negative) U/mL [facility] Comment: Performed by: [facility], [address], [place] [address], Billing Control Clerk: Estephania Guallpa, Ph.D. Blood specimen (specimen) 02/03/2012 13:40 EDT 02/03/2012 14:11 EDT Qasim Graves MD IMMUNOLOGY AND SER OLOGY ORDERABLES Performing Organization Address City/State/[facility] Co de Phone Number [facility] [address] [place] [address] documented in this encounter Visit Diagnoses Not [...] documented as of this encounter Care Teams Snorkelling Instructor Relationship Specialty Start Date End Date Yair Dow MD [address] [place] [phone] PCP - General 06/03/11 03/08/12 documented as of this encounter
--- OUTSIDE RECORDS SUMMARY | 2024-07-12 18:07 | XMS_ITS | Encounter Summary ---
Author Organization [facility] Address [address] [place] [address] Care Team Providers Care Executive Kitchen Manager Name Role Phone Conor Angel MD Primary Care Provider [phone] Encounter Details Date Type Department Care Team (Late st Contact Info) Description 02/10/2014 Orders Only [facility] OBGYN Services - [address] [address] Aura Bui RN [address] [place] [address] Miscarriage (Primary Dx) Social History Tobacco Use [...] [facility] [address] [phone] Micaela Hoff MD [address] [place] [address], [address] [place] [phone] documented as of this encounter Visit Diagnoses Diagnosis Miscarriage- Primary Unspecified spontaneous without mention of complication documented in this encounter Additional Health Concerns Infection Onset Date Last Indicated Resolved Time MRSA 10/20/2011 10/20/2011 documented as of this encounter Care Teams Executive Kitchen Manager Relationship Specialty Start Date End Date Conor Angel MD [address] [phone] PCP - General 02/07/14 06/08/14 documented as of this encounter
--- OUTSIDE RECORDS SUMMARY | 2024-07-12 18:07 | XMS_ITS | Encounter Summary ---
Author Organization [facility] Address [address] [place] [address] Care Team Providers Care Crystal Inspector Name Role Phone Conor Angel MD Primary Care Provider [phone] Reason for Visit * Reason Onset Date Comments Abdominal Cramping 02/10/2014 Encounter Details Date Type Department Care Team (Late st Contact Info) Description 02/10/2014 Telephone [facility] OBGYN Services - [facility] [address] [place] [address] Aura Bui, RN [address] [place] [address] Abdominal Cramping Social History Tobacco Use Types [...] [facility] Rheumatology & Immunology - [facility] [address] [place], [place] [phone] Micaela Hoff MD 111 [facility], Level [address] [place] [address] documented as of this encounter Results * HEMAGRAM (02/10/2014 12:09 EDT) Pathologist [facility] WBC 7.52 4.0 - 12.4 K/cmm [...] PF4 OR DERABLES [facility] [address] [place] [address] * (ABNORMAL) HCG FOR (02/10/2014 12:09 EDT) Pathologist [facility] Quant Beta HCG, Preg 6(H) <5 mIU/ml [facility] Comment: Reference Range: Negative = <5 Indeterminate = 5-25 recommend repeat in 48 hours. Positive = >25 Blood specimen (specimen) 02/10/2014 12:09 EDT 02/10/2014 12:18 EDT Sarah Rogers MD CHEMISTRY & BLOOD G ORDERABLES [facility] [address] [place] [address] documented in this encounter Visit Diagnoses Diagnosis with other poor obstetric history(V23.49)- Primary with other poor obstetric history documented in this encounter Additional Health Concerns Infection Onset Date Last Indicated Resolved Time MRSA 10/20/2011 10/20/2011 documented as of this encounter Care Teams Crystal Inspector Relationship Specialty Start Date End Date Conor Angel MD [address] [place] [address] PCP - General 02/07/14 06/08/14 documented as of this encounter
--- OUTSIDE RECORDS SUMMARY | 2024-07-12 18:07 | XMS_ITS | Encounter Summary ---
Author Organization [facility] Address [address] [place] [address] Care Team Providers Care Colleter Name Role Phone Yair Dow MD Primary Care Provider [phone] Reason for Visit * Reason Comments Fatigue follow up ED Encounter Details Date Type Department Care Team (Late st Contact Info) Description 01/19/2012 16:00 EDT Office Visit [address] [address] Kaylynn Rice MD [address] [address] Abdominal pain; Fatigue; Dry eyes [...] [facility] Immun[facility] - [address] [address] Micaela Hoff MD [address] [place] [address], [address] [place] [address] Scheduled Orders Name Type Priority [...] U/mL [facility] Comment: Performed by: [facility], [address], [place] [address], Claims Configuration Analyst: Estephania Guallpa, Ph.D. Blood specimen (specimen) 01/19/2012 16:29 EDT 01/19/2012 19:50 EDT Kaylynn Rice MD IMMUNOLOGY AND SERO LOGY ORDERABLES Performing Organization Address [facility] Co de Phone Number [facility] [address] [place] [address] * ENDOMYSIAL ANTIBODY, SERUM (01/19/2012 16:29 EDT) Endomysial Antibodies Negative Negative [facility] Comment: (Note) Negative in normal Individuals. May be negative in dermatitis herpatiformis or celiac disease patients adhering to a gluten free diet. Laboratory developed test. Performed or Referred by: [facility], [address] [place] [address], Lab Dir: Juan Coto III, MD Blood specimen (specimen) 01/19/2012 16:29 EDT 01/19/2012 19:50 EDT Kaylynn Rice MD IMMUNOLOGY AND SERO LOGY ORDERABLES Performing Organization Address City/[facility] Co de Phone Number [facility] [address] [place] [address] * ANCA (01/19/2012 16:29 EDT) ANCA Neg Neg Dils [facility] Blood specimen (specimen) 01/19/2012 16:29 EDT 01/19/2012 19:50 EDT Kaylynn Rice MD IMMUNOLOGY AND SERO LOGY ORDERABLES Performing Organization Address [facility] de Phone Number [facility] [address] [place] [address] * SSA/SSB (01/19/2012 16:29 EDT) SS A/Ro Ab, IgG, S <0.2 <1.0 (Negative) U [facility] SS B/La Ab, IgG, S <0.2 <1.0 (Negative) U [facility] Comment: Performed by: [facility], [address], [place] [address], Claims Configuration Analyst: Estephania Guallpa, Ph.D. Blood specimen (specimen) 01/19/2012 16:29 EDT 01/19/2012 19:50 EDT Kaylynn Rice MD CHEMISTRY & BLOOD G ORDERABLES Performing Organization Address [facility] de Phone Number [facility] [address] [place] [address] * RHEUMATOID FACTOR (01/19/2012 16:29 EDT) Rheumatoid Factor <20 <20 IU/ml [facility] Blood specimen (specimen) 01/19/2012 16:29 EDT 01/19/2012 19:50 EDT Kaylynn Rice MD CHEMISTRY & BLOOD G ORDERABLES Performing Organization Address [facility] Co de Phone Number [facility] [address] [place] [address] * ANTI NUCLEAR ANTIBODY (01/19/2012 16:29 EDT) Anti Nuclear Ab <40 0 - 40 Dils [facility] Blood specimen (specimen) 01/19/2012 16:29 EDT 01/19/2012 19:50 EDT Kaylynn Rice MD IMMUNOLOGY AND SERO LOGY ORDERABLES Performing Organization Address [facility] Co de Phone Number [facility] [address] [place] [address] * SED. RATE:LAURE (01/19/2012 16:29 EDT) Sed. Rate Adeleren 10 0 - 20 mm/hr [facility] Blood specimen (specimen) 01/19/2012 16:29 EDT 01/19/2012 19:50 EDT Kaylynn Rice MD HEMATOLOGY & PF4 OR DERABLES Performing Organization Address [facility] de Phone Number [facility] [address] [place] [address] documented in this encounter Visit Diagnoses Diagnosis [...] documented as of this encounter Care Teams Colleter Relationship Specialty Start Date End Date Yair Dow MD [address] [place] [phone] PCP - General 06/03/11 03/08/12 documented as of this encounter
--- OUTSIDE RECORDS SUMMARY | 2024-07-12 18:07 | XMS_ITS | Encounter Summary ---
Author Organization [facility] Address [address] [place] [address] Care Team Providers Care Kindergarten Instructional Assistant Name Role Phone Cara Arteaga MD Primary Care Provider Encounter Details Date Type Department Care Team (Late st Contact Info) Description 08/01/2013 Results Only [facility] Laboratory Services - [facility] ([facility]) [address] [place], [place] [address] Ladonna Maurer PA [address] [place] [phone] Social History Tobacco Use Types Packs/Day Years [...] [facility] - [facility] [address] [place], [place] [phone] Micaela Hoff MD 111 [facility], [address] [place] [phone] documented as of this encounter Procedures Procedure Name Priority Date/Time Associated Diagnosis Comments CYTOPATHOLOGY Routine 08/01/2013 0:00 EDT documented in this encounter Results * CYTOPATHOLOGY (08/01/2013 0:00 EDT) Pathologist [facility] Pathology Report: CYTOPATHOLOGY REPORT Reports generated via electronic interface contain original data; however they are lacking the format of the original report. Caution should be taken when reading/interpreti ng unformatted reports. Name: ? SEBASTIENTERI ? Accession #: ? [id number] : ? 1980 (Age: 33) ??F ?Collect [...] [facility] PATHOLOGY ORDERABLES [facility] [address] [place] [address] documented in this encounter Visit Diagnoses Not on filedocumented in this encounter Additional Health Concerns Infection Onset Date Last Indicated Resolved Time MRSA 10/20/2011 10/20/2011 documented as of this encounter Care Teams Kindergarten Instructional Assistant Relationship Specialty Start Date End Date Cara Arteaga MD [address] [place] [phone] PCP - General 01/25/13 02/06/14 documented as of this encounter
--- OUTSIDE RECORDS SUMMARY | 2024-07-12 18:07 | XMS_ITS | Encounter Summary ---
Author Organization [facility] Address [address] [place] [address] Care Team Providers Care Perinatal Instructor Name Role Phone Conor Angel MD Primary Care Provider Encounter Details Date Type Department Care Team (Latest Contact Info) Description 02/10/2014 11:49 EDT - 02/10/2014 23:59 EDT Hospital Encounter [facility] [address] [place] [address] Unknown, Provider, Discharge Disposition: Home or Self [...] Upcoming Encounters Date Type Department Care Team ([facility] st Contact Info) Description 12/29/2024 10:20 EST Office Visit [facility] Rheumatology & Immunology - [address] [address] Micaela Hoff MD [address] [place] [address], [address] [place] [phone] documented as of this encounter Visit Diagnoses Not on filedocumented in this encounter Additional Health Concerns Infection Onset Date Last Indicated Resolved Time MRSA 10/20/2011 10/20/2011 documented as of this encounter Care Teams Perinatal Instructor Relationship Specialty Start Date End Date Conor Angel MD [address] [place] [address] PCP - General 02/07/14 06/08/14 documented as of this encounter
--- OUTSIDE RECORDS SUMMARY | 2024-07-12 18:07 | XMS_ITS | Encounter Summary ---
Author Organization [facility] Address [address] [place] [address] Care Team Providers Care Package Worker Name Role Phone Yair Dow MD Primary Care Provider [phone] Reason for Visit * Reason Onset Date Comments Results 03/04/2012 Encounter Details Date Type Department Care Team (Late st Contact Info) Description 03/04/[address] [address] Yair Dow MD [address] [place] [address] DR [facility] [address] [place] [address] Results Social History Tobacco Use [...] that bad she should go to the [facility] today to be seen and evaluated. Patient [...] [facility] Rheumatology & Immunology - [address] [phone] Micaela Hoff MD [address] [facility], [address] [place] [phone] documented as of this encounter Visit Diagnoses Not on filedocumented in this encounter Additional Health Concerns Infection Onset Date Last Indicated Resolved Time MRSA 10/20/2011 10/20/2011 documented as of this encounter Care Teams Package Worker Relationship Specialty Start Date End Date Yair Dow MD [address] [place] [phone] PCP - General 06/03/11 03/08/12 documented as of this encounter
--- OUTSIDE RECORDS SUMMARY | 2024-07-12 18:07 | XMS_ITS | Encounter Summary ---
Author Organization [facility] Address [address] [place] [address] Care Team Providers Care Boot And Saddle Repair Person Name Role Phone Conor Angel MD Primary Care Provider [phone] Reason for Visit * Reason Onset Date Comments Labs Only 02/20/2014 Encounter Details Date Type Department Care Team (Late st Contact Info) Description 02/20/2014 Telephone [facility] - [facility] [address] [place] [address] Cecilia Hines, RN [address] [place] [address] Labs Only Social History Tobacco Use Types [...] 4..14 HCG- 6, repeat 4.14- <2 at [facility] in [place]. Reviewed with patient- verbalized understanding. Will follow up as necessary. documented in this encounter Plan of Treatment Upcoming Encounters Date Type Department Care Team (Late st Contact Info) Description 12/29/2024 10:20 EST Office Visit [facility] Rheumatology & Immunology - [facility] [address] [place], [place] [address] Micaela Hoff MD 111 [facility], [address] [place] [phone] documented as of this encounter Visit Diagnoses Not on filedocumented in this encounter Additional Health Concerns Infection Onset Date Last Indicated Resolved Time MRSA 10/20/2011 10/20/2011 documented as of this encounter Care Teams Boot And Saddle Repair Person Relationship Specialty Start Date End Date Conor Angel MD [address] [place] [address] PCP - General 02/07/14 06/08/14 documented as of this encounter
--- OUTSIDE RECORDS SUMMARY | 2024-07-12 18:07 | XMS_ITS | Encounter Summary ---
Author Organization [facility] Address [address] [place] [address] Care Team Providers Care Data Solutions Architect Name Role Phone Yair Dow MD Primary Care Provider [phone] Reason for Referral * Consult (Routine/Next Available) - Closed Specialty Diagnoses / Procedures [facility] Referred To Contact Rheumatology Diagnoses Fatigue Weakness Myalgia Kaylynn Rice MD [address] [address] [place] [address] Rheumatology [address] [place] [address] Referral ID Status Reason Start Date Expiration Date V isits Requested Visits Authorized [id number] Closed Specialty Services Required 03/02/2012 1 1 Question Answer Reason for Request: Worsening fatigue, myalgias, weakness. Rheum labs neg, ?fibromyalgia. Reason for Visit * Reason Comments Strep Throat ? Urinary Tract Infection medicated- sympt oms returned Results MRI Medication Management omeprozole Encounter Details Date Type Department Care Team (Late st Contact Info) Description 03/02/2012 15:00 EDT Office Visit [address] [address] Kaylynn Rice MD [address] [address] Urgency of urination (Primary Dx); Peptic ulcer [...] Progress Notes * Stephany Lambert - 03/02/2012 9453 EDT POC rapid strep negative POC urine [...] ago. Saw a doctor up in the [facility] and treated with nitrofurantoin x5 days. Symptoms [...] Color DARK YELLOW Clarity, UA CLOUDY Specific [place] >=1.030 pH 6.0 Glucose Neg Bilirubin Neg [...] [facility] Rheumatology & Immunology - [address] [address] Micaela Hoff MD [address] [place] [address], [address] [place] [address] Scheduled Referrals Name Type Priority [...] - GENE RAL ORDERABLES Performing Organization Address [facility] de Phone Number [facility] [address] [place] [address] * (ABNORMAL) POCT URINE DIPSTICK (03/02/2012 15:41 EDT) Color DARK YELLOW [facility] Clarity, UA CLOUDY [facility] Glucose Neg Neg [facility] Bilirubin Neg Neg [facility] Ketones Neg Neg [facility] Specific [place] >=1.030 1.001 - 1.035 [facility] Blood 3+(A) Neg [facility] pH 6.0 4.6 - 8.0 [facility] Protein 2+(A) Neg [facility] Urobilinogen 0.2 0.2 - 1.0 E.U./dl [facility] Nitrite Neg Neg [facility] Leuk Esterase 2+(A) Neg KAROLINA [facility] slack line yarder ID [id number] [facility] Comment:Test performed at [facility] Urine specimen (specimen) 03/02/2012 15:41 EDT 03/02/2012 15:42 EDT Kaylynn Rice MD POINT OF CARE TEST ORDERABLES Performing Organization Address [facility] de Phone Number [facility] [address] [place] [address] * PHARYNGITIS CULTURE (03/02/2012 15:38 EDT) Specimen Description Throat [facility] Result No group A beta streptococci isolated. Usual karen-pharyngeal marquita. [facility] Report Status 03/05/2012 Final [facility] Specimen from throat (specimen) 03/02/2012 15:38 EDT 03/02/2012 18:45 EDT Kaylynn Rice MD MICROBIOLOGY - GENE RAL ORDERABLES [facility] [address] [place] [address] * POCT RAPID STREP SCREEN (03/02/2012 15:34 [...] as of this encounter Care Teams Data Solutions Architect Relationship Specialty Start Date End Date Yair Dow MD [address] [place] [address] PCP - General 06/03/11 03/08/12 documented as of this encounter
--- OUTSIDE RECORDS SUMMARY | 2024-07-12 18:07 | XMS_ITS | Encounter Summary ---
Author Organization [facility] Address [address] [place] [address] Care Team Providers Care Bus Van Driver Name Role Phone Ladonna Maurer Primary Care Provider [phone] Reason for Visit * Reason Comments Medications Refill Encounter Details Date Type Department Care Team (Late st Contact Info) Description 07/31/2012 13:13 EDT - 07/31/2012 15:40 EDT Hospital Encounter [facility] Ur[facility] - [address] [address] Sarah Solitario, PRODUCT AMBASSADOR [address] [place], [place] [id number] Unknown, Provider, control counseling Discharge Disposition: Home [...] * COMBINATION CONTROL PILLS: AFTER YOUR VISIT (INDONESIAN) * STOPPING SMOKING: AFTER YOUR VISIT (INDONESIAN) documented in this encounter Medications at Time [...] sent to lab per order. * Sarah Solitario, LEONELA - 07/31/2012 8955 EDT DOS: 07/31/2012 Chief Complaint Patient presents [...] Father 50 [place] ??? Diabetes Father ??? Thyroid Cancer/Nodule Maternal Aunt Cancer ??? Heart Disease Maternal Grandmother [place] ??? [...] transmitted infections and keeping her appointment with [facility] care doctor in 2 months. He detailed discussion regarding the importance of her smoking cessation plan starting tomorrow and quit line information given. Disposition: Discharged The patient's pain was managed to an adequate level weighing risk vs. benefit of further medications. Upon departure from the [facility], the patient's pain was 0 on a zero to ten scale. Condition at departure from the [facility]: Good 1. control counseling TEST, URINE, HIV [...] time, has appointment to be seen at [facility] in October. documented in this encounter Miscellaneous Notes * Scanned Note-Null - SYSTEM DEVELOPMENT ENGINEER, SCAN 2 - 08/10/2012 0658 EDT documented in this encounter Plan of Treatment Upcoming Encounters Date Type Department Care Team (Late st Contact Info) Description 12/29/2024 10:20 EST Office Visit [facility] Rheumatology & Immunology - [address] [address] Micaela Hoff MD [address] [place] [address], [address] 5 [place] [address] documented as of this encounter Procedures Procedure Name Priority Date/Time Associated Diagnosis Comments HIV 1/2 ANTIGEN AND ANTIBODY, 4TH GENERATION STAT 07/31/2012 15:20 EDT control counseling TEST, URINE STAT 07/31/2012 15:17 EDT control counseling documented in this encounter Results * HIV 1/2 ANTIBODY (07/31/2012 15:20 EDT) HIV 1/2 Antibody Negative [facility] Comment: Reference Range: ??Negative Assayed utilizing MONOCO chemiluminescent technology. Blood specimen (specimen) 07/31/2012 15:20 EDT 07/31/2012 15:30 EDT Sarah Solitario NP IMMUNOLOGY AND SEROLOGY ORDERABLES Performing Organization Address [facility] de Phone Number [facility] [address] [place] [address] * TEST, URINE (07/31/2012 15:17 EDT) Result- Test, Ur Negative [facility] Comment: NOTE: False negative results may occur in women who are beyond 5-8 weeks gestation. Diagnosis of should be based on a correlation of test results with typical clinical signs and symptoms. Performed at [facility], [place], [place] Urine specimen (specimen) URINE / Unknown 07/31/2012 15:17 EDT 07/31/2012 15:21 EDT Sarah Solitario NP URINALYSIS ORDERABLES Performing Organization Address [facility] de Phone Number [facility] [address] [place] [address] documented in this encounter Visit Diagnoses Diagnosis [...] documented as of this encounter Care Teams Bus Van Driver Relationship Specialty Start Date End Date Ladonna Maurer PA [address] [place] [address] PCP - General 05/12/12 01/24/13 documented as of this encounter
--- OUTSIDE RECORDS SUMMARY | 2024-07-12 18:07 | XMS_ITS | Encounter Summary ---
Author Organization [facility] Address [address] [place] [address] Care Team Providers Care Arson Investigator Name Role Phone Yair Dow MD Primary Care Provider [phone] Reason for Visit * Reason Onset Date Comments Other 01/14/2012 Encounter Details Date Type Department Care Team (Late st Contact Info) Description 01/14/[address] [address] Yair Dow MD [address] [place] [address] DR [facility] [address] [place] [address] Other Social History Tobacco Use [...] [facility] Rheumatology & Immunology - [address] [address] Micaela Hoff MD [address] [place] [address], [address] [place] [address] documented as of this encounter Visit Diagnoses Not on filedocumented in this encounter Additional Health Concerns Infection Onset Date Last Indicated Resolved Time MRSA 10/20/2011 10/20/2011 documented as of this encounter Care Teams Arson Investigator Relationship Specialty Start Date End Date Yair Dow MD [address] [place] [address] PCP - General 06/03/11 03/08/12 documented as of this encounter
--- OUTSIDE RECORDS SUMMARY | 2024-07-12 18:07 | XMS_ITS | Encounter Summary ---
Author Organization [facility] Address [address] [place] [address] Care Team Providers Care Event Marketing Coordinator Name Role Phone Conor Angel MD Primary Care Provider Reason for Referral * INDUSTRIAL RADIOGRAPHER (Routine) - Closed Specialty Diagnoses / Procedures [facility] Referred To Contact Diagnoses Pelvic pain in female Procedures CAT DOG OR OTHER PET GROOMER US PELVIS TRANSVAGINAL Aura Bui, RN [address] [place] [address] Referral ID Status Reason Start Date Expiration Date Visits Re quested Visits Authorized [id number] Closed 02/10/2014 1 1 Encounter Details Date Type Department Care Team (Late st Contact Info) Description 02/10/2014 Orders Only [facility] OBGYN Services - [address] [address] Aura Bui, RN [address] [place] [address] Pelvic pain in female (Primary Dx) Social [...] [facility] Rheumatology & Immunology - [address] [address] Micaela Hoff MD [address] [place] [address], [address] [place] [address] documented as of this encounter Procedures Procedure Name Priority Date/Time Associated Diagnosis Comments CAT DOG OR OTHER PET GROOMER US PELVIS TRANSVAGINAL Routine 02/10/2014 14:08 EDT Pelvic pain in female documented in this encounter Results * CAT DOG OR OTHER PET GROOMER US PELVIS TRANSVAGINAL (02/10/2014 14:08 EDT) Anatomical [...] of free fluid visible. Report Summary: Impression: [id number] First trimester obstetrical US, transvaginal 1) Likely [...] of free fluid visible. Report Summary: Impression: [id number] First trimester obstetrical US, transvaginal 1) Likely s/p miscarriage given HCG is 6 and uterus has a 7mm endometrium. No gestational sac seen. No adnexal abnormalities except a small anechoic paratubal cyst. 2) Patient not tender with pressure from US exam. Recommendations: Patient seeing Dr. Rogers right after US for further management. Sarah Rogers MD IMG US CAT DOG OR OTHER PET GROOMER ORDERABL ES documented in this encounter Visit Diagnoses Diagnosis Pelvic pain in female- Primary Unspecified symptom associated with female genital organs documented in this encounter Additional Health Concerns Infection Onset Date Last Indicated Resolved Time MRSA 10/20/2011 10/20/2011 documented as of this encounter Care Teams Event Marketing Coordinator Relationship Specialty Start Date End Date Conor Angel MD [address] [place] [address] PCP - General 02/07/14 06/08/14 documented as of this encounter
--- OUTSIDE RECORDS SUMMARY | 2024-07-12 18:07 | XMS_ITS | Encounter Summary ---
Author Organization [facility] Address [address] [place] [address] Care Team Providers Care Insurance Producer Name Role Phone Ladonna Maurer Primary Care Provider [phone] Reason for Visit * Reason Onset Date Comments Results 12/30/2012 Thyroid Problem 12/30/2012 Encounter Details Date Type Department Care Team (Late st Contact Info) Description 12/30/2012 Telephone [facility] Endocrinology - [facility] [address] [place] [address] Drew Grijalva MD [address] [facility] [address] [place] [address] Results; Thyroid Problem Social History [...] end of December with maybe a referral [facility] pain clinic. * Telephone Encounter - Madhuri Posada - 12/30/2012 1139 EST Patient really needs to speak to talk to the nurse she really isnt feeling well at all, she is having pain in her neck now hurts to move, also feels swollen. * Telephone Encounter - Inge Johnson - 12/30/2012 0807 EST Pt asking for lab results from her November visit, also since yesterday she has notice her thyroid feels enlarged and sore, and stating is more shaky than usual documented in this encounter Plan of Treatment Upcoming Encounters Date Type Department Care Team (Late st Contact Info) Description 12/29/2024 10:20 EST Office Visit [facility] Rheumatology & Immunology - [address] [address] Micaela Hoff MD [address] [place] [address], [address] [place] [address] documented as of this encounter Visit Diagnoses Not on filedocumented in this encounter Additional Health Concerns Infection Onset Date Last Indicated Resolved Time MRSA 10/20/2011 10/20/2011 documented as of this encounter Care Teams Insurance Producer Relationship Specialty Start Date End Date Garrigan, Ladonna, PA [address] [place] [address] PCP - General 05/12/12 01/24/13 documented as of this encounter
--- OUTSIDE RECORDS SUMMARY | 2024-07-12 18:07 | XMS_ITS | Encounter Summary ---
Author Organization [facility] Address [address] [place] [address] Care Team Providers Care Resident Care Technician Name Role Phone Yair Dow MD Primary Care Provider [phone] Reason for Visit * Reason Comments Fatigue Diagnosed a year ago with Hosimoto's. Over last couple weeks has increase fatigue, near syncopal, missing work. Various aches and pains. GERD acting up. Skin pink and dry. NAD. Encounter Details Date Type Department Care Team (Late st Contact Info) Description 01/14/2012 10:47 EDT - 01/14/2012 14:51 EDT Emergency [facility] Emergency Department - Main [place] [address] [place], [place] [address] Carol Spencer PA [address] [place] [address] Emergency, MD Fede Fatigue Discharge [...] documented in this encounter Procedure Notes * IMAGING ENGINEER, ISELA 2 - 02/04/2012 0744 EDTAssociated Order(s): [...] Stroke Mother ??? Heart Disease Father 50 [place] ??? Diabetes Father ??? Thyroid Cancer/Nodule Maternal Aunt Cancer ??? Heart Disease Maternal Grandmother [place] ??? Diabetes Maternal Grandmother ??? Cancer Maternal [...] encounter Miscellaneous Notes * Scanned Note-Null - IMAGING ENGINEER, SCAN 2 - 01/15/2012 2324 EDT documented in this encounter Plan of Treatment Upcoming Encounters Date Type Department Care Team (Late st Contact Info) Description 12/29/2024 10:20 EST Office Visit [facility] Rheumatology & Immunology - [address] [address] Micaela Hoff MD [address] [place] [address], [address] [place] [address] Pending Results Name Type Priority [...] 7:44 EDT) 02/04/2012 7:44 EDT Narrative Transcriptions IMAGING ENGINEER, SCAN 2 - 02/04/2012 7:44 EDT Scan 2 Tight Rope Walker PROCEDURE/MINOR GERI GICAL ORDERABLES * POCT URINE TEST (01/14/2012 13:24 EDT) Test, Urine, POC Negative Reference Range, Negative POINT OF CARE Control Line Present Yes POINT OF CARE Background Clear? Yes POINT OF CARE Urine specimen (specimen) 01/14/2012 13:24 EDT Carol AVILA POINT OF CARE TEST O RDERABLES Performing Organization Address City/[facility]/ZIP Co de Phone Number POINT OF CARE * TSH (01/14/2012 13:13 EDT) TSH 0.46 0.35 - 5.00 uIU/ml [facility] Blood specimen (specimen) 01/14/2012 13:13 EDT 01/14/2012 13:25 EDT Carol AVILA CHEMISTRY & BLOOD GA S ORDERABLES Performing Organization Address [facility] de Phone Number [facility] [address] [place] [address] * (ABNORMAL) POCT URINE DIPSTICK (01/14/2012 13:05 EDT) Color YELLOW [facility] Clarity, UA Clear [facility] Glucose Neg Neg [facility] Bilirubin Neg Neg [facility] Ketones Trace(A) Neg [facility] Specific [place] 1.020 1.001 - 1.035 [facility] Blood Trace(A) Neg [facility] pH 6.5 4.6 - 8.0 [facility] Protein Neg Neg [facility] Urobilinogen 0.2 0.2 - 1.0 E.U./dl [facility] Nitrite Neg Neg [facility] Leuk Esterase 1+(A) Neg KAROLINA [facility] career placement specialist ID [id number] [facility] Comment:Test Performed by [facility] Urine specimen (specimen) 01/14/2012 13:05 EDT 01/14/2012 13:19 EDT Carol AVILA POINT OF CARE TEST O RDERABLES Performing Organization Address [facility] Co de Phone Number [facility] [address] [place] [address] * (ABNORMAL) GLUCOSE, GLUCOMETER (01/14/2012 11:55 EDT) Glucose, Fingerstick 120(H) 70 - 100 mg/dl [facility] [employer] [place] [id number] [facility] Comment:Test Performed by [facility] 01/14/2012 11:5 5 EDT 01/14/2012 11:57 EDT Provider Unknown CHEMISTRY & BLOOD GA S ORDERABLES [facility] [address] [place] [address] documented in this encounter Visit Diagnoses Diagnosis [...] as of this encounter Care Teams Resident Care Technician Relationship Specialty Start Date End Date Yair Dow MD [address] [place] [address] PCP - General 06/03/11 03/08/12 documented as of this encounter
--- OUTSIDE RECORDS SUMMARY | 2024-07-12 18:07 | XMS_ITS | Encounter Summary ---
Author Organization [facility] Address [address] [place] [address] Care Team Providers Care Cottrell Blower Name Role Phone Yair Dow MD Primary Care Provider [phone] Encounter Details Date Type Department Care Team (Late st Contact Info) Description 03/01/2012 21:38 EDT - 03/01/2012 23:59 EDT Hospital Encounter [facility] [address] [place] [address] Kaylynn Rice MD [address] [phone] Discharge Disposition: Auto Discharge Social History Tobacco [...] [facility] Rheumatology & Immunology - [address] [address] Micaela Hoff MD [address] [facility], [address] [place] [address] documented as of this encounter Visit Diagnoses Not on filedocumented in this encounter Additional Health Concerns Infection Onset Date Last Indicated Resolved Time MRSA 10/20/2011 10/20/2011 documented as of this encounter Care Teams Cottrell Blower Relationship Specialty Start Date End Date Yair Dow MD [address] [place] [address] PCP - General 06/03/11 03/08/12 documented as of this encounter
--- OUTSIDE RECORDS SUMMARY | 2024-07-12 18:07 | XMS_ITS | Encounter Summary ---
Author Organization [facility] Address [address] [place] [address] Care Team Providers Care Die Drawing Checker Name Role Phone Ladonna Maurer Primary Care Provider [phone] Reason for Visit * Reason Comments Labs Only Encounter Details Date Type Department Care Team (Latest Contact Info) Description 11/16/2012 9:30 EST Procedure visit [facility] Endocrinology - [address] [phone] Unknown, Provider, Phlebotomy, [facility] Endo Unspecified hypothyroidism; Mena's thyroiditis Social [...] 12/29/2024 10:20 EST Office Visit [facility] Rheumatology & Immunology - [facility] [address] [place], [place] [phone] Micaela Hoff MD 111 [facility], [address] 5 [place] [phone] documented as of this encounter Procedures Procedure [...] & BLOOD GAS ORDERABLES Performing Organization Address [facility] Co de Phone Number [facility] [address] [place] [address] * T4 FREE (11/16/2012 9:32 EST) Free T4 1.5 0.8 - 1.8 ng/dL [facility] Blood specimen (specimen) 11/16/2012 9:32 EST 11/16/2012 15:54 EST Drew Grijalva MD CHEMISTRY & BLOOD GAS ORDERABLES Performing Organization Address [facility] Co de Phone Number [facility] [address] [place] [address] documented in this encounter Visit Diagnoses Diagnosis Unspecified hypothyroidism Mena's thyroiditis Chronic lymphocytic thyroiditis documented in this encounter Additional Health Concerns Infection Onset Date Last Indicated Resolved Time MRSA 10/20/2011 10/20/2011 documented as of this encounter Care Teams Die Drawing Checker Relationship Specialty Start Date End Date Ladonna Maurer PA [address] [place] [address] PCP - General 05/12/12 01/24/13 documented as of this encounter
--- OUTSIDE RECORDS SUMMARY | 2024-07-12 18:07 | XMS_ITS | Encounter Summary ---
Author Organization [facility] Address [address] [place] [address] Care Team Providers Care Lna Name Role Phone Ladonna Maurer Primary Care Provider [phone] Reason for Visit * Reason Comments Dysuria Encounter Details Date Type Department Care Team (Late st Contact Info) Description 07/17/2012 11:45 EDT - 07/17/2012 15:18 EDT Hospital Encounter [facility] Urgent Care - [address] [address] Sarah Solitario, RN STAFFING [address] [place], [place] [phone] Unknown, Provider, Dysuria; UTI (lower urinary tract [...] sterile urine sample to the lab at [facility] for a urine culture in 2 weeks. [...] TRACT INFECTION IN WOMEN: AFTER YOUR VISIT (PALAUAN) documented in this encounter Medications at Time [...] in this encounter ED Notes * Patrick Overton, RN - 07/19/2012 5348 EDT Pt called requesting her Bact[facility] in [place]. Rx called in. * Sarah Solitario NP [...] is presently in the midst of a HEAD ROSE GROWER workup and a colonoscopy planned. The history [...] Stroke Mother ??? Heart Disease Father 50 [place] ??? Diabetes Father ??? Thyroid Cancer/Nodule Maternal Aunt Cancer ??? Heart Disease Maternal Grandmother [place] ??? Diabetes Maternal Grandmother ??? Cancer Maternal [...] Genitourinary: Vesna Nash, RN present during entire HEAD ROSE GROWER exam. Patient encouraged to stop exam if [...] Bilirubin Neg Neg Ketones Neg Neg Specific [place] <=1.005 1.001 - 1.035 Blood 3+ (*) Neg pH 6.5 4.6 - 8.0 Protein Neg Neg Urobilinogen 0.2 0.2 - 1.0 (E.U./dl) Nitrite Neg Neg Leuk Esterase 1+ (*) Neg Tech ID [id number] TEST, URINE Component Value Range Result- Test, [...] clue cells present Direct Exam Performed at [facility], [place], [place] Report Status 07/17/2012 Final ED/[facility] ADD-ON Component Value Range Tests to be added URINE CULTURE Number for problems [id number] ([facility]) Radiology orders: None Procedures Course: A medical screening exam was performed.VSS And afebrile Differentials considered but not limited to: UTI, STD, IBS Social: Relocating from [facility] to the [facility]. She has a new job starting in then. She has an agreement with [facility] to pay for her medical bills. Past [...] will treat for this. Due to complicated HEAD ROSE GROWER/GI concerns of no menstruation since December, and [...] be given for medication onSunday. She will diamond picker her prescription at [facility] on Thursday. If she still has symptoms after 3 days of Bactrim she will get a refill and take for a full week. She is returning to the [facility] and reestablishing her care. She is seen in rheumatology. She will would like to see a primary care doctor and/or a HEAD ROSE GROWER doctor before October to help her to [...] of further medications. Upon departure from the [facility], the patient's pain was 0 on a zero to ten scale. Condition at departure from the [facility]: Good 1. Dysuria POCT URINE DIPSTICK, TEST, URINE, POCT URINE DIPSTICK, TEST, URINE, URINE MICROSCOPIC ONLY, URINE MICROSCOPIC ONLY, WET PREP, CHLAMYDIA/GC AMPLIFIED, ED/WICC ADD-ON, WET PREP, CHLAMYDIA/GC AMPLIFIED, ED/WICC ADD-ON, BACTERIAL CULTURE, URINE 2. UTI (lower [...] baby girl. 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; she [...] encounter Miscellaneous Notes * Scanned Note-Null - MERCERIZING RANGE FEEDER, SCAN 2 - 07/22/2012 0814 EDT documented in this encounter Plan of Treatment Upcoming Encounters Date Type Department Care Team (Late st Contact Info) Description 12/29/2024 10:20 EST Office Visit [facility] Rheumatology & Immunology - [facility] [address], [place] [phone] Micaela Hoff MD 111 [facility], [address] [place] [address] documented as of this encounter [...] [facility] Comment:Performed at [facility], [place], [place] Chlamydia Result No Chlamydia trachomatis DNA detected by adon mediated amplification. [facility] GC Result No Neisseria gonorrhoeae DNA detected by adon mediated amplification. [facility] Specimen of unknown material (specimen) TOPOGRAPHY UNKNOWN / Unknown 07/17/2012 14:42 EDT 07/17/2012 14:45 EDT Sarah Solitario NP MICROBIOLOG Y - GENERAL ORDERABLES Performing Organization Address [facility] Co de Phone Number [facility] [address] [place] [address] * WET PREP (07/17/2012 14:41 EDT) Specimen Description Vagina [facility] Direct Exam No Trichomonas or yeast present. [facility] Direct Exam No clue cells present [facility] Direct Exam Performed at [facility], [place], [place] [facility] Report Status 07/17/2012 Final [facility] Specimen of unknown material (specimen) VAGINAL STRUCTURE / Unknown 07/17/2012 14:41 EDT 07/17/2012 14:45 EDT Sarah Solitario NP MICROBIOLOG Y - GENERAL ORDERABLES Performing Organization Address [facility] de Phone Number [facility] [address] [place] [address] * ED/WICC ADD-ON (07/17/2012 14:30 EDT) Tests to be added URINE CULTURE [facility] Number for problems [id number] ([place]) [facility] Comment:Performed at [facility] [place], [place] 07/17/2012 14:3 0 EDT 07/17/2012 14:31 EDT Sarah Solitario RN STAFFING HEMATOLOGY & PF4 ORDERABLES Performing Organization Address [facility] de Phone Number [facility] [address] [place] [address] * BACTERIAL CULTURE, URINE (07/17/2012 11:55 EDT) Specimen Description Urine [facility] Specimen Description Performed at [facility], [place], [place] [facility] Result Greater than [...] MICROBIOLOG Y - GENERAL ORDERABLES [facility] [address] [place] [address] * (ABNORMAL) URINE MICROSCOPIC ONLY (07/17/2012 11:55 EDT) WBC, UA 10 to 50 0 - 5 /HPF [facility] RBC, UA 1 to 5 0 - 5 /HPF [facility] Squam Epithel, UA Few(A) None seen /HPF [facility] Renal Epithel, UA None seen None seen /HPF [facility] Bacteria, UA Rare(A) None seen /HPF [facility] Crystals, UA None seen /HPF [facility] Hyaline Casts, UA None seen /LPF [facility] UA Comment Microscopic results [facility] Comment: are unreliable on urines unrefrig >2hrs or refrig >8hrs. [facility]formed at [facility] [place], [place] Urine specimen (specimen) URINE / Unknown 07/17/2012 11:55 EDT 07/17/2012 12:02 EDT Theodore Tamez MD URINALYSIS ORD ERABLES Performing Organization Address [facility] de Phone Number [facility] [address] [place] [address] * TEST, URINE (07/17/2012 11:55 EDT) Result- Test, Ur Negative [facility] Comment: NOTE: False negative results may occur in women who are beyond 5-8 weeks gestation. Diagnosis of should be based on a correlation of test results with typical clinical signs and symptoms. Performed at [place], [place] Urine specimen (specimen) URINE / Unknown 07/17/2012 11:55 EDT 07/17/2012 12:01 EDT Theodore Tamez MD URINALYSIS ORD ERABLES Performing Organization Address [facility] de Phone Number [facility] [address] [place] [address] * (ABNORMAL) POCT URINE DIPSTICK (07/17/2012 11:52 EDT) Color YELLOW [facility] Clarity, UA Clear [facility] Glucose Neg Neg [facility] Bilirubin Neg Neg [facility] Ketones Neg Neg [facility] Specific [place] <=1.005 1.001 - 1.035 [facility] Blood 3+(A) Neg [facility] pH 6.5 4.6 - 8.0 [facility] Protein Neg Neg [facility] Urobilinogen 0.2 0.2 - 1.0 E.U./dl [facility] Nitrite Neg Neg [facility] Leuk Esterase 1+(A) Neg KAROLINA [facility] library consultant ID [id number] [facility] Comment:[facility] Urine specimen (specimen) 07/17/2012 11:52 EDT 07/17/2012 11:58 EDT Theodore Tamez MD POINT OF CARE TEST ORDERABLES Performing Organization Address [facility] de Phone Number [facility] [address] [place] [address] documented in this encounter Visit Diagnoses Diagnosis [...] documented as of this encounter Care Teams Lna Relationship Specialty Start Date End Date Ladonna Maurer PA [address] [place] [address] PCP - General 05/12/12 01/24/13 documented as of this encounter
--- OUTSIDE RECORDS SUMMARY | 2024-07-12 18:07 | XMS_ITS | Encounter Summary ---
Author Organization [facility] Address [address] [place] [address] Care Team Providers Care Cotton Machine Operator Name Role Phone Ladonna Maurer Primary Care Provider [phone] Reason for Visit * Reason Comments Hip Pain bi-lat worse in AM. Encounter Details Date Type Department Care Team (Late st Contact Info) Description 09/26/2012 13:00 EST - 09/26/2012 15:43 EST Hospital Encounter [facility] Urgent Care - [address] [phone] Clarke Lambert MD [address] [facility] [place] [address] Trochanteric bursitis of both hips; Mena's [...] Everywhere. * HIP BURSITIS: AFTER YOUR VISIT (TOGOLESE) * TROCHANTERIC BURSITIS: EXERCISES (TOGOLESE) documented in this encounter Medications at Time [...] Notes * Aline Brown LPN - 09/26/2012 1549 EST Pt stable. No new complaints at [...] Stroke Mother ??? Heart Disease Father 50 [place] ??? Diabetes Father ??? Thyroid Cancer/Nodule Maternal Aunt Cancer ??? Heart Disease Maternal Grandmother [place] ??? Diabetes Maternal Grandmother ??? Cancer Maternal [...] medications. Upon departure from the [facility], the patient's pain was 5 on a zero to ten scale. Condition at departure from the [facility]: Stable 1. 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 [facility] 09/26/2012 15:40 * Sonya Stoll RN - 09/26/2012 2614 EST C/O hip pain bi-lat worse in [...] encounter Miscellaneous Notes * Scanned Note-Null - CHECKERING MACHINE OPERATOR, SCAN 2 - 09/30/2012 1318 EST documented in this encounter Plan of Treatment Upcoming Encounters Date Type Department Care Team (Late st Contact Info) Description 12/29/2024 10:20 EST Office Visit [facility] Rheumatology & Immunology - [address] [phone] Micaela Hoff MD 111 [facility], [address] [place] [address] documented as of this encounter [...] as of this encounter Care Teams Cotton Machine Operator Relationship Specialty Start Date End Date Ladonna Maurer PA [address] [place] [address] PCP - General 05/12/12 01/24/13 documented as of this encounter
--- OUTSIDE RECORDS SUMMARY | 2024-07-12 18:07 | XMS_ITS | Encounter Summary ---
Author Organization [facility] Address [address] [place] [address] Care Team Providers Care Rn Surgery Icu Name Role Phone Yair Dow MD Primary Care Provider [phone] Unknown, Provider Primary Care Provider [phone] Ladonna Maurer Primary Care Provider [phone] Cara Arteaga MD Primary Care Provider Conor Angel MD Primary Care Provider [phone] None, Provider Primary Care Provider Kaylynn Pizarro MD Primary Care Provider [phone] Reason for Visit * Reason Comments Other Encounter Details Date Type Department Care Team (Late st Contact Info) Description 12/20/2011 Refill [facility] [address] [place] [address] Drew Grijalva MD [address] [place] [address] [address] [place] [address] Other Social History Tobacco Use [...] Description 12/29/2024 10:20 EST Office Visit [facility] Rheumatology & Immunology - [address] [address] Micaela Hoff MD 111 [facility], [address] [place] [phone] documented as of this encounter Visit Diagnoses [...] as of this encounter Care Teams Rn Surgery Icu Relationship Specialty Start Date End Date Yair Dow MD [address] [place] [phone] PCP - General 06/03/11 03/08/12 Unknown, MD Jake PCP - General 03/09/12 05/11/12 Ladonna Maurer PA [address] [place] [address] PCP - General 05/12/12 01/24/13 Cara Arteaga MD [address] [place] [phone] PCP - General 01/25/13 02/06/14 Conor Angel MD [facility] [place] [address] PCP - General 02/07/14 06/08/14 None, Provider PCP - General 06/09/14 03/01/15 Kaylynn Gimenez MD [address] [place] [phone] PCP - General 03/02/15 documented as of this encounter
--- OUTSIDE RECORDS SUMMARY | 2024-07-12 18:07 | XMS_ITS | Encounter Summary ---
Author Organization [facility] Address [address] [place] [address] Care Team Providers Care Exhaust And Muffler Repairer Name Role Phone Conor Angel MD Primary Care Provider [phone] Encounter Details Date Type Department Care Team (Late st Contact Info) Description 02/10/2014 Phlebotomy Only [address] [address] Blade Aligner, Outpatient with other poor obstetric history(V23.49) Social [...] [facility] Immun[facility] - [address] [address] Micaela Hoff MD [address] [place] [address], [address] [place] [address] documented as of this encounter Procedures Procedure Name Priority Date/Time Associated Diagnosis Comments COMPLETE BLOOD COUNT STAT 02/10/2014 12:09 EDT with other poor obstetric history(V23.49) QUANT BETA HCG, STAT 02/10/2014 12:09 EDT with other poor obstetric history(V23.49) documented in this encounter Results * HEMAGRAM (02/10/2014 12:09 EDT) Pathologist [facility] WBC 7.52 4.0 - 12.4 K/cmm [facility] [...] & PF4 OR DERABLES Performing Organization Address [facility] Co de Phone Number [facility] [address] [place] [address] * (ABNORMAL) HCG FOR (02/10/2014 12:09 EDT) Quant Beta HCG, Preg 6(H) <5 mIU/ml [facility] Comment: Reference Range: Negative = <5 Indeterminate = 5-25 recommend repeat in 48 hours. 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
--- OUTSIDE RECORDS SUMMARY | 2024-07-12 18:08 | XMS_ITS | Encounter Summary ---
Author Organization [facility] Address [address] [place] [address] Care Team Providers Care Crystal Growing Technician Name Role Phone Yair Dow MD Primary Care Provider [phone] Reason for Visit * Reason Comments Cellulitis ? from a tatoo on he r left leg history 24 hours Encounter Details Date Type Department Care Team (Late st Contact Info) Description 10/13/2011 16:30 EST Office Visit [facility] [address] [place], [place] [phone] Vishnu Gustafson MD [address] [place] [address] Cellulitis; Folliculitis Social History Tobacco [...] Info) Description 12/29/2024 10:20 EST Office Visit [facility] Rheumatology & Immunology - [address] [address] Micaela Hoff MD 111 [facility], [address] [place] [phone] documented as of this encounter Visit Diagnoses Diagnosis Cellulitis Cellulitis and abscess of unspecified site Folliculitis Other specified disease of hair and hair follicles documented in this encounter Discontinued Medications Medication Sig Discontinue Reason Start Date End Da te LEVONORGESTREL (MIRENA IU) by Intrauterine route. Every 5 years Therapy completed 10/13/2011 documented as of this encounter Care Teams Crystal Growing Technician Relationship Specialty Start Date End Date Yair Dow MD [address] [place] [phone] PCP - General 06/03/11 03/08/12 documented as of this encounter
--- OUTSIDE RECORDS SUMMARY | 2024-07-12 18:08 | XMS_ITS | Encounter Summary ---
Author Organization [facility] Address [address] [place] [address] Care Team Providers Care Rn Documentation Name Role Phone Ladonna Maurer Primary Care Provider [phone] Encounter Details Date Type Department Care Team (Late st Contact Info) Description 09/03/2010 Results Only [facility] [place] [address] [place], [place] [address] Rosita Blanco MD [address] [place] [phone] Social History Tobacco Use Types Packs/Day Years [...] Office Visit [facility] Rheumatology & Immunology - [facility] [address] [place], [place] [address] Micaela Hoff MD 111 [facility], [address] [place] [address] documented as of this encounter [...] HARO, TERI R ? Accession #: ? [id number] ? : ? 1980 (Age: 30) ??F [...] ??performance ? characteristics have been determined by [facility]. ??This ? laboratory is certified [...] in toto as (A). ? Received in [employer]'s solution labelled Haro, Teri and stomach are two ? pink- irregular soft tissues, 0.1 x 0.1 x 0.1 cm and 0.3 x 0.3 x 0.2 cm. ? Submitted in toto as (B). ? Received in [employer]'s solution labelled Haro, Teri and GE junction is a ?? single 0.2 x 0.2 x 0.2 cm pink- irregular soft tissue. ??Submitted in toto as (C). ??(Yvonne Mcdaniel)/natan ? End of Report ? [facility] 09/03/2010 09/03/2010 14: 00 EDT Rosita Blanco MD PATHOLOGY OR DERABLES [facility] [address] [place] [address] documented in this encounter Visit Diagnoses Not on filedocumented in this encounter Care Teams Rn Documentation Relationship Specialty Start Date End Date Ladonna Maurer PA [address] [place] [address] PCP - General 05/20/10 06/02/11 documented as of this encounter
--- OUTSIDE RECORDS SUMMARY | 2024-07-12 18:08 | XMS_ITS | Encounter Summary ---
Author Organization [facility] Address [address] [place] [address] Care Team Providers Care Wheel Molder Name Role Phone Ladonna Maurer Primary Care Provider [phone] Encounter Details Date Type Department Care Team (Late st Contact Info) Description 10/09/2010 Results Only [facility] Laboratory Services - [facility] ([facility] [address] [place], [place] [address] Ladonna Maurer PA [address] [place], [place] [phone] Social History Tobacco Use Types Packs/Day Years Used Date Smoking Tobacco: Never Assessed Sex and Gender Information Value Date Recorded Sex Assigned at Not on file Gender Identity Not on file Sexual Orientation Not on file documented as of this encounter Plan of Treatment Upcoming Encounters Date Type Department Care Team (Late Contact Info) Description 12/29/2024 10:20 EST Office Visit [facility] Rheumatology & Immunology - [facility] [address] [place], [place] [address] Micaela Hoff MD 111 [facility], [address] [place] [address] documented as of this [...] CROWE, TERI R ? Accession #: ? [id number] ? : ? 1980 (Age: 30) ??F [...] reviewed and electronically signed by: ? [place], [place](ASCP) ? Report Date: ??10/15/2010 14:01 ? End of Report ? [facility] 10/09/2010 10/10/2010 Ladonna AVILA PATHOLOGY ORDERABLES [facility] [address] [place] [address] documented in this encounter Visit Diagnoses Not on filedocumented in this encounter Care Teams Wheel Molder Relationship Specialty Start Date End Date Ladonna Maurer PA [address] [place] [address] PCP - General 05/20/10 06/02/11 documented as of this encounter
--- OUTSIDE RECORDS SUMMARY | 2024-07-12 18:08 | XMS_ITS | Encounter Summary ---
Author Organization [facility] Address [address] [place] [address] Care Team Providers Care Strategic Debriefing Officer Name Role Phone Yair Dow MD Primary Care Provider [phone] Reason for Visit * Reason Comments Wound Infection follow up Adenopathy painful Nausea Encounter Details Date Type Department Care Team (Late st Contact Info) Description 10/24/2011 15:30 EST Office Visit [address] [address] Kaylynn Rice MD [address] [address] Nausea (Primary Dx); Abscess Social [...] Description 12/29/2024 10:20 EST Office Visit [facility] Rheumatology & Immunology - [address] [address] Micaela Hoff MD 111 [facility], [address] [place] [address] documented as of this encounter [...] documented as of this encounter Care Teams Strategic Debriefing Officer Relationship Specialty Start Date End Date Yair Dow MD [address] [place] [address] PCP - General 06/03/11 03/08/12 documented as of this encounter
--- OUTSIDE RECORDS SUMMARY | 2024-07-12 18:08 | XMS_ITS | Encounter Summary ---
Author Organization [facility] Address [address] [place] [address] Care Team Providers Care Chin Strap Maker Name Role Phone Yair Dow MD Primary Care Provider [phone] Reason for Visit * Reason Comments Contraception IUD removal Encounter Details Date Type Department Care Team (Late st Contact Info) Description 07/31/2011 9:45 EDT Office Visit [facility] [address] [place] [place], [place] [address] Vishnu Gustafson MD [address] [place] [address] Contraception (Primary Dx) Social History [...] to have removed and go back on bmbjf-maw-rscief that she had done well on before [...] [facility] Rheumatology & Immunology - [address] [address] Micaela Hoff MD [address] [place] [address], [address] [place] [address] documented as of this encounter Visit Diagnoses Diagnosis Contraception- Primary Unspecified contraceptive management documented in this encounter Care Teams Chin Strap Maker Relationship Specialty Start Date End Date Yair Dow MD [address] [place] [address] PCP - General 06/03/11 03/08/12 documented as of this encounter
--- OUTSIDE RECORDS SUMMARY | 2024-07-12 18:08 | XMS_ITS | Encounter Summary ---
Author Organization [facility] Address [address] [place] [address] Care Team Providers Care Parasitology Teacher Name Role Phone Ladonna Maurer Primary Care Provider Reason for Referral * (Routine) - Closed Specialty Diagnoses / Procedures Referred By Contac t Referred To Contact Diagnoses Hypothyroid Morbid obesity (HCC-CMS) TAMMY (obstructive sleep apnea) Procedures HEMOGLOBIN A1C Kristine Escamilla, HUANG [address] [place] [address] Referral ID Status Reason Start Date Expiration Date Visits Re quested Visits Authorized [id number] Closed 11/27/2010 1 1 * (Routine) - Closed Specialty Diagnoses / Procedures Referred By Contac t Referred To Contact Diagnoses Hypothyroid Morbid obesity (HCC-CMS) TAMMY (obstructive sleep apnea) Procedures VITAMIN D (25,OH) Kristine Escamilla, HUANG [address] [place] [phone] Referral ID Status Reason Start Date Expiration Date Visits Re quested Visits Authorized [id number] Closed 11/27/2010 1 1 * (Routine) - Closed Specialty Diagnoses / Procedures Referred By Contac t Referred To Contact Diagnoses Hypothyroid Morbid obesity (HCC-CMS) TAMMY (obstructive sleep apnea) Procedures LIVER FUNCTION TESTS Kristine Escamilla APRN [address] [place] [phone] Referral ID Status Reason Start Date Expiration Date Visits Re quested Visits Authorized [id number] Closed 11/27/2010 1 1 * (Routine) - Closed Specialty Diagnoses / Procedures Referred By Contac t Referred To Contact Diagnoses Hypothyroid Morbid obesity (HCC-CMS) TAMMY (obstructive sleep apnea) Procedures HEMAGRAM Kristine Escamilla DISTANCE LEARNING COORDINATOR [address] [place] [phone] Referral ID Status Reason Start Date Expiration Date Visits Re quested Visits Authorized [id number] Closed 11/27/2010 1 1 * (Routine) - Closed Specialty Diagnoses / Procedures Referred By Contac t Referred To Contact Diagnoses Hypothyroid Morbid obesity (HCC-CMS) TAMMY (obstructive sleep apnea) Procedures [facility] Kristine Escamilla, DISTANCE LEARNING COORDINATOR [address] [place] [phone] Referral ID Status Reason Start Date Expiration Date Visits Re quested Visits Authorized [id number] Closed 11/27/2010 1 1 Encounter Details Date Type Department Care Team (Latest Contact Info) Description 11/27/2010 11:51 EST - 11/27/2010 23:59 EST Hospital Encounter [address] [address] Kristine Escamilla, DISTANCE LEARNING COORDINATOR [address] [place] [address] [phone] Hypothyroid; Morbid obesity (HCC-CMS); TAMMY (obstructive sleep [...] Code Departure Means Destination Home or Self Jail documented in this encounter Miscellaneous Notes * Scanned Note-Null - Chemistry Technician, Scan - 10/15/2011 0903 EST documented in this encounter Plan of Treatment Upcoming Encounters Date Type Department Care Team (Late st Contact Info) Description 12/29/2024 10:20 EST Office Visit [facility] Rheumatology & Immunology - [address] [address] Micalea Hoff MD [address] [place] [address], [address] [place] [phone] documented as of this encounter Procedures Procedure [...] HEMOGLOBIN A1C (11/27/2010 12:14 EST) Pathologist [facility] Hemoglobin A1C 5.8 % [facility] [...] & BLOOD GAS ORDERABLES Performing Organization Address [facility] de Phone Number [facility] [address] [place] [address] * VITAMIN D (25,OH) (11/27/2010 12:14 EST) Pathologist [facility] 25OH Vitamin D Tot 14.8 ng/ml [facility] Comment: Reference Range: <10 ng/ml: Deficient 10-30 ng/ml: Insufficient 30-100 ng/ml: Sufficient >100 ng/ml: Toxic Blood specimen (specimen) 11/27/2010 12:14 EST 11/27/2010 12:16 EST Kristine Escamilla APRN CHEMISTRY & BLOOD GAS ORDERABLES Performing Organization Address [facility] Co de Phone Number [facility] [address] [place] [address] * LIVER FUNCTION TESTS (11/27/2010 12:14 EST) [...] & BLOOD GAS ORDERABLES Performing Organization Address City/State/[facility] Co de Phone Number [facility] [address] [place] [address] * HEMAGRAM (11/27/2010 12:14 EST) WBC 8.48 [...] EST 11/27/2010 12:16 EST Kristine S Andi DISTANCE LEARNING COORDINATOR HEMATOLOGY & PF4 ORDERABLES Performing Organization Address City/[facility]/ZIP Co de Phone Number [facility] [address] [place] [address] * CREATININE (11/27/2010 12:14 EST) Creatinine 0.86 0.7 - 1.5 mg/dl [facility] GFR, Calculated >60 ml/min/1.7 3m2 [facility] Blood specimen (specimen) 11/27/2010 12:14 EST 11/27/2010 12:16 EST Kristine Bismark Andi DISTANCE LEARNING COORDINATOR CHEMISTRY & BLOOD GAS ORDERABLES Performing Organization Address [facility] Co de Phone Number [facility] [address] [place] [address] documented in this encounter Visit Diagnoses Diagnosis Hypothyroid Unspecified hypothyroidism Morbid obesity ([facility]) Morbid obesity TAMMY (obstructive sleep apnea) Obstructive sleep apnea (adult) (pediatric) documented in this encounter Care Teams Parasitology Teacher Relationship Specialty Start Date End Date Ladonna Maurer PA [address] [place] [phone] PCP - General 05/20/10 06/02/11 documented as of this encounter
--- OUTSIDE RECORDS SUMMARY | 2024-07-12 18:08 | XMS_ITS | Encounter Summary ---
Author Organization [facility] Address [address] [place] [address] Care Team Providers Care Baton Twirler Name Role Phone Ladonna Maurer Primary Care Provider [phone] Encounter Details Date Type Department Care Team (Latest Contact Info) Description 09/03/2010 6:35 EDT - 09/03/2010 23:59 EDT Hospital Encounter [facility] [address] [place] [address] Skyler Blanco MD [address] [place] [phone] Discharge Disposition: Home or Self Care [...] Self Senior Care documented in this encounter Progress Notes [...] Description 12/29/2024 10:20 EST Office Visit [facility] Rheumatology & Immunology - [address] [phone] Micaela Hoff MD [address] [place] [address], [address] [place] [address] documented as of [...] PROCEDURE/MINOR S URGICAL ORDERABLES Performing Organization Address City/[facility] Co de Phone Number POINT OF CARE * ORDERS - SCANNED (09/04/2010 10:10 EDT) 09/04/2010 10:1 0 EDT Narrative Procedure Note Inpatient, Physician - 09/03/2010 0:00 EDT Physician Inpatient MD ADMISSION ORDERAB LES Performing Organization Address [facility] Co de Phone Number POINT OF CARE * PATHOLOGY - SCANNED (09/04/2010 10:10 EDT) 09/04/2010 10:1 0 EDT Narrative Procedure Note Inpatient, Physician - 09/03/2010 0:00 EDT Physician Inpatient MD LAB INFO SERVICE AND SUPPORT & PHONE RESULT Performing Organization Address [facility] Co de Phone Number POINT OF CARE documented in this encounter Visit Diagnoses Not on filedocumented in this encounter Care Teams Baton Twirler Relationship Specialty Start Date End Date Ladonna Maurer PA [address] [place] [address] PCP - General 05/20/10 06/02/11 documented as of this encounter
--- OUTSIDE RECORDS SUMMARY | 2024-07-12 18:08 | XMS_ITS | Encounter Summary ---
Author Organization [facility] Address [address] [place] [address] Care Team Providers Care V Belt Finisher Name Role Phone Ladonna Maurer Primary Care Provider Reason for Visit * Reason Onset Date Comments Other 01/17/2011 Encounter Details Date Type Department Care Team (Late st Contact Info) Description 01/17/2011 Telephone [facility] Bariatric Surgery - [place] [address] [place] [address] Kristine Escamilla S, TOWBOAT PILOT 61 [facility] [address] [phone] Other Social History Tobacco Use Types Packs/Day [...] Info) Description 12/29/2024 10:20 EST Office Visit [facility] Rheumatology & Immunology - [address] [address] Micaela Hoff MD 111 [facility], [address] [place] [phone] documented as of this encounter Visit Diagnoses Not on filedocumented in this encounter Care Teams V Belt Finisher Relationship Specialty Start Date End Date Ladonna Maurer PA [address] [place] [phone] PCP - General 05/20/10 06/02/11 documented as of this encounter
--- OUTSIDE RECORDS SUMMARY | 2024-07-12 18:08 | XMS_ITS | Encounter Summary ---
Author Organization [facility] Address [address] [place] [address] Care Team Providers Care Electric Motor Controls Assembler Name Role Phone Ladonna Maurer Primary Care Provider Reason for Visit * Reason Onset Date Comments Prior Auth, Other (i.e. radiology, etc.) 010 Encounter Details Date Type Department Care Team (Late st Contact Info) Description 08/29/2010 Telephone [facility] GENERAL SURGERY [address] [place] [address] Skyler Blanco MD [address] [place] [phone] Prior Auth, Other (i.e. radiology, etc.) [...] 1514 EDT DOS - 09/03/2010 - CPT 02545 - Gerd Morbid Obesity Pre-op - [employer] - Elizabeth PA documented in this encounter Plan of Treatment Upcoming Encounters Date Type Department Care Team (Late st Contact Info) Description 12/29/2024 10:20 EST Office Visit [facility] Rheumatology & Immunology - [address] [address] Micaela Hoff MD [address] [place] [address], [address] [place] [phone] documented as of this encounter Visit Diagnoses Not on filedocumented in this encounter Care Teams Electric Motor Controls Assembler Relationship Specialty Start Date End Date Ladonna Maurer PA [address] [place] [address] PCP - General 05/20/10 06/02/11 documented as of this encounter
--- OUTSIDE RECORDS SUMMARY | 2024-07-12 18:08 | XMS_ITS | Encounter Summary ---
Author Organization [facility] Address [address] [place] [address] Care Team Providers Care Business Services Associate Name Role Phone Ladonna Maurer Primary Care Provider [phone] Reason for Visit * Reason Comments Obesity Encounter Details Date Type Department Care Team (Late st Contact Info) Description 12/25/2010 8:30 EST [facility] Bariatric Surgery - [place] [address] [place] [address] Hypothyroid; Morbid obesity ([facility]); TAMMY (obstructive sleep apnea) Social History Tobacco [...] encounter Miscellaneous Notes * Scanned Note-Null - Roller Setter, Scan - 10/03/2011 1046 EST documented in this encounter Plan of Treatment Upcoming Encounters Date Type Department Care Team (Late st Contact Info) Description 12/29/2024 10:20 EST Office Visit [facility] Rheumatology & Immunology - [address] [phone] Micaela Hoff MD 111 [facility], [address] [place] [phone] documented as of this encounter Visit Diagnoses Diagnosis Hypothyroid Unspecified hypothyroidism Morbid obesity ([facility]) Morbid obesity TAMMY (obstructive sleep apnea) Obstructive sleep apnea (adult) (pediatric) documented in this encounter Care Teams Business Services Associate Relationship Specialty Start Date End Date Ladonna Maurer PA [address] [place] [address] PCP - General 05/20/10 06/02/11 documented as of this encounter
--- OUTSIDE RECORDS SUMMARY | 2024-07-12 18:08 | XMS_ITS | Encounter Summary ---
Author Organization [facility] Address [address] [place] [address] Care Team Providers Care Behavior Interventionist Name Role Phone Yair Dow MD Primary Care Provider [phone] Reason for Visit * Reason Onset Date Comments Contraception 07/31/2011 Wants removed Encounter Details Date Type Department Care Team (Late st Contact Info) Description 07/31/[address] [address] Yair Dow MD [address] [place] [address] [phone] Contraception (Wants removed) Social History [...] [facility] Rheumatology & Immunology - [address] [phone] Micaela Hoff MD 111 [facility], [address] [place] [address] documented as of this encounter Visit Diagnoses Not on filedocumented in this encounter Care Teams Behavior Interventionist Relationship Specialty Start Date End Date Yair Dow MD [address] [place] [phone] PCP - General 06/03/11 03/08/12 documented as of this encounter
--- OUTSIDE RECORDS SUMMARY | 2024-07-12 18:08 | XMS_ITS | Encounter Summary ---
Author Organization [facility] Address [address] [place] [address] Care Team Providers Care Project Intern Name Role Phone Yair Dow MD Primary Care Provider [phone] Encounter Details Date Type Department Care Team (Late st Contact Info) Description 11/26/[address] [address] Yair Dow MD [address] [place] [address] [phone] Social History Tobacco Use Types Packs/Day Years [...] [facility] Rheumatology & Immunology - [facility] [address] [place], [place] [phone] Micaela Hoff MD 111 [facility], [address] [place] [phone] documented as of this encounter Visit Diagnoses Not on filedocumented in this encounter Additional Health Concerns Infection Onset Date Last Indicated Resolved Time 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
--- OUTSIDE RECORDS SUMMARY | 2024-07-12 18:08 | XMS_ITS | Encounter Summary ---
Author Organization [facility] Address [address] [place] [address] Care Team Providers Care Grinder And Honer Operator Automatic Name Role Phone Ladonna Maurer Primary Care Provider Reason for Visit * Reason Onset Date Comments Other 12/27/2010 Encounter Details Date Type Department Care Team (Late Contact Info) Description 12/27/2010 Telephone [facility] Bariatric Surgery - [address] [address] Alesha Russo, RN [address] [place] [address] Other Social History Tobacco Use Types Packs/Day [...] Per Dr. Blanco: New script called to [facility]. Nexium 40 mg capsule; take one daily x 90 days. 2 refills. Patient aware documented in this encounter Plan of Treatment Upcoming Encounters Date Type Department Care Team (Late Contact Info) Description 12/29/2024 10:20 EST Office Visit [facility] Rheumatology & Immunology - [address] [address] Micaela Hoff MD 111 [facility], [address] [place] [phone] documented as of this encounter Visit Diagnoses Not on filedocumented in this encounter Care Teams Grinder And Honer Operator Automatic Relationship Specialty Start Date End Date Ladonna Maurer PA [address] [place] [phone] PCP - General 05/20/10 06/02/11 documented as of this encounter
--- OUTSIDE RECORDS SUMMARY | 2024-07-12 18:08 | XMS_ITS | Encounter Summary ---
Author Organization [facility] Address [address] [place] [address] Care Team Providers Care Mammalogy Teacher Name Role Phone Yair Dow MD Primary Care Provider [phone] Reason for Visit * Reason Onset Date Comments Medications Refill 10/02/2011 Encounter Details Date Type Department Care Team (Late Contact Info) Description 10/02/2011 Refill [facility] Endocrinology - [address] [phone] Izabel Crawford RN CDE Medications Refill Social [...] Info) Description 12/29/2024 10:20 EST Office Visit [facility] Rheumatology & Immunology - [facility] [address] [place], [place] [phone] Micaela Hoff MD 111 [facility], [address] [place] [phone] documented as of this encounter Visit Diagnoses Not on filedocumented in this encounter Care Teams Mammalogy Teacher Relationship Specialty Start Date End Date Yair Dow MD [address] [place] [phone] PCP - General 06/03/11 03/08/12 documented as of this encounter
--- OUTSIDE RECORDS SUMMARY | 2024-07-12 18:08 | XMS_ITS | Encounter Summary ---
Author Organization [facility] Address [address] [place] [address] Care Team Providers Care Web Assistant Name Role Phone Yair Dow MD Primary Care Provider [phone] Reason for Visit * Reason Comments Hypothyroidism New Patient Visit former Dr. Abrams pt Encounter Details Date Type Department Care Team (Latest Contact Info) Description 11/18/2011 8:30 EST Office Visit [facility] Endocrinology - [facility] [address] [place] [address] Drew Grijalva MD [address] [facility] [address] [place] [address] Unspecified hypothyroidism; Chronic lymphocytic thyroiditis [...] hypothyroidism. 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 She admitted to eating poorly, spending a [...] Value Date FREET4 1.5 09/15/2011 Utilizing a SonCoupoplaceste System, a biplanar B-mode ultrasound was performed [...] documented in this encounter Procedure Notes * Vacuum Plastic Forming Machine Operator, Daniela - 11/18/2011 1428 ESTAssociated Order(s): RADIOLOGY - SCANNED documented in this encounter Plan of Treatment Upcoming Encounters Date Type Department Care Team (Late Contact Info) Description 12/29/2024 10:20 EST Office Visit [facility] Rheumatology & Immunology - [facility] [address] [place] [address] Micaela Hoff MD 111 [facility], [address] [place] [address] documented as of this encounter Procedures Procedure Name Priority Date/Time Associated Diagnosis Comments RADIOLOGY - SCANNED 11/18/2011 1 4:28 EST ENDOCRINE CLINIC US THYROID Routine 11/18/2011 Unspecified hypothyroidism Chronic lymphocytic thyroiditis documented in this encounter Results * RADIOLOGY - SCANNED (11/18/2011 14:28 EST) Anatomical Region Laterality Modality Other 11/18/2011 14:2 8 EST Narrative Transcriptions Vacuum Plastic Forming Machine Operator, Scan - 11/18/2011 14:28 EST Scan Vacuum Plastic Forming Machine Operator IMG OTHER IMAGING OR DERABLES * T4 FREE (11/18/2011 9:42 EST) Free T4 1.8 0.8 - 1.8 ng/dL [facility] Blood specimen (specimen) 11/18/2011 9:42 EST 11/18/2011 11:54 EST Drew Grijalva MD CHEMISTRY & BLOOD GAS ORDERABLES [facility] [address] [place] [address] * (ABNORMAL) TSH (11/18/2011 9:42 EST) TSH 0.16(L) 0.35 - 5.00 uIU/ml [facility] Blood specimen (specimen) 11/18/2011 9:42 EST 11/18/2011 11:54 EST Drew Grijalva MD CHEMISTRY & BLOOD GAS ORDERABLES Performing Organization Address [facility] de [place] [address] * (ABNORMAL) THYROPEROXIDASE ANTIBODY (11/18/2011 9:42 EST) Thyroperoxidase Ab 296(H) <61 U/mL F [facility] Blood specimen (specimen) 11/18/2011 9:42 EST 11/18/2011 11:54 EST Drew Grijalva MD CHEMISTRY & BLOOD GAS ORDERABLES Performing Organization Address [facility] [place] [address] * ANTI THYROGLOBULIN (11/18/2011 9:42 EST) Thyroglobulin Ab 46 <61 U/mL [facility] Blood specimen (specimen) 11/18/2011 9:42 EST 11/18/2011 11:54 EST Drew Grijalva MD CHEMISTRY & BLOOD GAS ORDERABLES Performing Organization Address [facility] Phone [place] [address] * ENDOCRINE CLINIC US THYROID (11/18/2011) Anatomical Region Laterality Modality Other Impressions 11/18/2011 Utilizing a [employer] System, a biplanar B-mode ultrasound was performed [...] documented as of this encounter Care Teams Web Assistant Relationship Specialty Start Date End Date Yair Dow MD [address] [place] [phone] PCP - General 06/03/11 03/08/12 documented as of this encounter
--- OUTSIDE RECORDS SUMMARY | 2024-07-12 18:08 | XMS_ITS | Encounter Summary ---
Author Organization [facility] Address [address] [place] [address] Care Team Providers Care Cheesemaker Helper Name Role Phone Ladonna Maurer Primary Care Provider Encounter Details Date Type Department Care Team (Late st Contact Info) Description 02/03/2011 Abstract [facility] Cardiology - [place] [address] [place] [address] Ladonna Maurer PA [address] [place] [phone] Social History Tobacco Use Types Packs/Day Years [...] / [facility] Rheumatology & Immunology - [address] [phone] Micaela Hoff MD 111 [facility], [address] [place] [address] documented as of this encounter Visit Diagnoses Not on filedocumented in this encounter Care Teams Cheesemaker Helper Relationship Specialty Start Date End Date Ladonna Maurer PA [address] [place] [address] PCP - General 05/20/10 06/02/11 documented as of this encounter
--- OUTSIDE RECORDS SUMMARY | 2024-07-12 18:08 | XMS_ITS | Encounter Summary ---
Author Organization [facility] Address [address] [place] [address] Care Team Providers Care Alley Worker Name Role Phone Yair Dow MD Primary Care Provider [phone] Reason for Visit * Reason Onset Date Comments Medications Refill 10/02/2011 Encounter Details Date Type Department Care Team (Late st Contact Info) Description 10/02/2011 Refill [facility] Endocrinology - [address] [address] Izabel Crawford RN CDE Medications Refill Social [...] [facility] Rheumatology & Immunology - [address] [address] Micaela Hoff MD 111 [facility], [address] [place] [address] documented as of this encounter Visit Diagnoses Not on filedocumented in this encounter Discontinued Medications Medication Sig Discontinue Reason Start Date End Da te levothyroxine (SYNTHROID) 88 mcg tablet Take 1 Tab by mouth daily. Reorder 06/12/2011 10/02/2011 documented as of this encounter Care Teams Alley Worker Relationship Specialty Start Date End Date Yair Dow MD [address] [place] [phone] PCP - General 06/03/11 03/08/12 documented as of this encounter
--- OUTSIDE RECORDS SUMMARY | 2024-07-12 18:08 | XMS_ITS | Encounter Summary ---
Author Organization [facility] Address [address] [place] [address] Care Team Providers Care Military Administrative Technician Name Role Phone Ladonna Maurer Primary Care Provider [phone] Reason for Visit * Reason Onset Date Comments Results 02/11/2011 Encounter Details Date Type Department Care Team (Late st Contact Info) Description 02/11/2011 Telephone [facility] Cardiology - [facility] [address] [place], [place] [id number] Jose Manuel [place] MD 111 [facility], [facility] 1 [place] [address] Results Social History Tobacco Use [...] is indicated. Jose Manuel Benjamin Jr. MD Decontamination Workersuperintendent drilling and production [facility] Pager # [phone] documented in this encounter Plan of Treatment Upcoming Encounters Date Type Department Care Team (Late st Contact Info) Description 12/29/2024 10:20 EST Office Visit [facility] Rheumatology & Immunology - [address] [address] Micaela Hoff MD [address] [place] [address], Level 5 [place] [phone] documented as of this encounter Visit Diagnoses Not on filedocumented in this encounter Care Teams Military Administrative Technician Relationship Specialty Start Date End Date Ladonna Maurer PA [address] [place] [phone] PCP - General 05/20/10 06/02/11 documented as of this encounter
--- OUTSIDE RECORDS SUMMARY | 2024-07-12 18:08 | XMS_ITS | Encounter Summary ---
Author Organization [facility] Address [address] [place] [address] Care Team Providers Care Knotting Machine Operator Name Role Phone Ladonna Maurer Primary Care Provider [phone] Reason for Visit * Reason Comments Goiter new patient Hypothyroidism Encounter Details Date Type Department Care Team (Latest Contact Info) Description 01/23/2011 14:40 EDT Office Visit [facility] Endocrinology - [address] [phone] Tawny Abrams MD [address] [place] [address] Hypothyroid; Mena's thyroiditis Social History Tobacco [...] OF ENDOCRINOLOGY CONSULTATION - 01/23/2011 Ladonna Maurer [address] [address] Dear Ms Maurer: I had the pleasure of seeing your patient, Teri Haro, in consultation in the endocrine clinic today, , for goiter and hypothyroidism. 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 She admits that she has been [...] Abrams MD - Tawny Abrams MD - [facility] Job ID: SM Doc ID: [id number] Ext Doc ID: [id number] cc: AUSTIN Silva documented in this encounter Miscellaneous Notes * Scanned Note-Null - Inpatient, Physician - 01/30/2011 1145 EDTAssociated Order(s): RADIOLOGY - SCANNED documented in this encounter Plan of Treatment Upcoming Encounters Date Type Department Care Team (Late st Contact Info) Description 12/29/2024 10:20 EST Office Visit [facility] Rheumatology & Immunology - [address] [address] Micaela Hoff MD [address] [place] [address], [address] [place] [address] Scheduled Orders Name Type Priority [...] 06/12/2011 added in this encounter Care Teams Knotting Machine Operator Relationship Specialty Start Date End Date Ladonna Maurer PA [address] [place] [address] PCP - General 05/20/10 06/02/11 documented as of this encounter
--- OUTSIDE RECORDS SUMMARY | 2024-07-12 18:08 | XMS_ITS | Encounter Summary ---
Author Organization [facility] Address [address] [place] [address] Care Team Providers Care District Loss Prevention Manager Name Role Phone Yair Dow MD Primary Care Provider [phone] Reason for Visit * Reason Onset Date Comments Cellulitis 10/18/2011 Encounter Details Date Type Department Care Team (Late st Contact Info) Description 10/18/[address] [phone] Loren Singletary MD [address] [place], [place] [phone] Cellulitis Social History Tobacco Use Types Packs/Day [...] Telephone Encounter - Loren Singletary - 10/18/2011 4722 EST 31 year old female seen for [...] [facility] Rheumatology & Immunology - [address] [address] Micaela Hoff MD 111 [facility], Level [address] [place] [address] documented as of this encounter Visit Diagnoses Not on filedocumented in this encounter Care Teams District Loss Prevention Manager Relationship Specialty Start Date End Date Yair Dow MD [address] [place] [address] PCP - General 06/03/11 03/08/12 documented as of this encounter
--- OUTSIDE RECORDS SUMMARY | 2024-07-12 18:08 | XMS_ITS | Encounter Summary ---
Author Organization [facility] Address [address] [place] [address] Care Team Providers Care Support Services Specialist Name Role Phone Ladonna Maurer Primary Care Provider Reason for Visit * Reason Onset Date Comments Other 01/14/2011 no showed appt Encounter Details Date Type Department Care Team (Late st Contact Info) Description 01/14/2011 Telephone [facility] Bariatric Surgery - [place] [address] [place] [address] Kristine Escamilla, HUANG [address] [facility] [address] [address] Other (no showed appt) Social [...] No Showed appt today with Kristine Escamilla JEWEL HOLE CORNERER. Call pt and left message with machine to call backand RS. documented in this encounter Plan of Treatment Upcoming Encounters Date Type Department Care Team (Late st Contact Info) Description 12/29/2024 10:20 EST Office Visit [facility] Rheumatology & Immunology - [address] [phone] Micaela Hoff MD 111 [facility], Level [address] [place] [phone] documented as of this encounter Visit Diagnoses Not on filedocumented in this encounter Care Teams Support Services Specialist Relationship Specialty Start Date End Date Ladonna Maurer PA [address] [place] [id number] PCP - General 05/20/10 06/02/11 documented as of this encounter
--- OUTSIDE RECORDS SUMMARY | 2024-07-12 18:08 | XMS_ITS | Encounter Summary ---
Author Organization [facility] Address [address] [place] [address] Care Team Providers Care Ground Wirer Name Role Phone Yair Dow MD Primary Care Provider [phone] Reason for Visit * Reason Comments Hypothyroidism Follow-up Encounter Details Date Type Department Care Team (Latest Contact Info) Description 06/12/2011 16:00 EDT Office Visit [facility] Endocrinology - [address] [phone] Tawny Abrams MD [address] [place] [address] Unspecified hypothyroidism (Primary Dx) Social History [...] january Smoking again moved to [place] Maurer [address] [address] Dear Ms Maurer: I had the pleasure of seeing your patient, Teri Haro, in follow up in the endocrine clinic todayfor goiter and hypothyroidism. 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 [...] Info) Description 12/29/2024 10:20 EST Office Visit [facility] Rheumatology & Immunology - [address] [address] Micaela Hoff MD [address] [place] [address], Level [address] [place] [address] documented as of this encounter Results * T4 FREE (09/15/2011 13:55 EST) Free T4 1.5 0.8 - 1.8 ng/dL [facility] Blood specimen (specimen) 09/15/2011 13:55 EST 09/15/2011 15:18 EST Tawny Abrams MD CHEMISTRY & BLOOD GA S ORDERABLES Performing Organization Address [facility] Phone Number [facility] [address] [address] * TSH (09/15/2011 13:55 EST) TSH 1.03 0.35 - 5.00 uIU/ml [facility] Blood specimen (specimen) 09/15/2011 13:55 EST 09/15/2011 15:18 EST Tawny Abrams MD CHEMISTRY & BLOOD GA S ORDERABLES Performing Organization Address [facility] Phone Number [facility] [address] [address] documented in this encounter Visit Diagnoses Diagnosis Unspecified hypothyroidism- Primary documented in this encounter Discontinued Medications Medication Sig Discontinue Reason Start Date End Da te levothyroxine (SYNTHROID) 25 mcg tablet Take 100 mcg by mouth daily. 06/12/2011 documented as of this encounter Care Teams Ground Wirer Relationship Specialty Start Date End Date Yair Dow MD [address] [place] [phone] PCP - General 06/03/11 03/08/12 documented as of this encounter
--- OUTSIDE RECORDS SUMMARY | 2024-07-12 18:08 | XMS_ITS | Encounter Summary ---
Author Organization [facility] Address [address] [place] [address] Care Team Providers Care Rubber Worker Name Role Phone Yair Dow MD Primary Care Provider [phone] Encounter Details Date Type Department Care Team (Late st Contact Info) Description 12/03/2011 Results Only [facility] Family [address] [phone] Kaylynn Rice MD [address] [address] Social History Tobacco Use Types [...] [facility] [place] [facility] & Immunology - [facility] [address] [place] [address] Micaela Hoff MD [address] [facility], [facility] 5 [place] [address] documented as of this encounter [...] ? TERI CROWE ? Accession #: ? [id number] ? : ? 1980 (Age: 31) ??F [...] MD PATHOLOGY ORDERABLE S Performing Organization Address City/State/[facility] Co de Phone Number [facility] [address] [place] [address] documented in this encounter Visit Diagnoses Not on filedocumented in this encounter Additional Health Concerns Infection Onset Date Last Indicated Resolved Time MRSA 10/20/2011 10/20/2011 documented as of this encounter Care Teams Rubber Worker Relationship Specialty Start Date End Date Yair Dow MD [address] [place] [address] PCP - General 06/03/11 03/08/12 documented as of this encounter
--- OUTSIDE RECORDS SUMMARY | 2024-07-12 18:08 | XMS_ITS | Encounter Summary ---
Author Organization [facility] Address [address] [place] [address] Care Team Providers Care Rigging Loft Repairer Name Role Phone Yair Dow MD Primary Care Provider [phone] Reason for Visit * Reason Comments Vaginal Discharge has noticed the last few days increase vaginal discharge; Smoking Cessation was on wellbutrin wo uld like to try this again Encounter Details Date Type Department Care Team (Late st Contact Info) Description 12/03/2011 14:00 [place] [address] Kaylynn Rice MD [address] [address] Screening for STD (sexually transmitted [...] suite. Susan Florence 12/03/2011 15:01 * Kaylynn iRce MD - 12/03/2011 1412 EST Family Medicine [...] [facility] Rhe[facility] & Immunology - [address] [address] Micaela Hoff MD [address] [place] [address], Level 5 [place] [address] documented as of this encounter [...] OF CARE TEST ORDERABLES Performing Organization Address [facility] Co de Phone Number POINT OF CARE * SYPHILIS SEROLOGY (12/03/2011 14:19 EST) Syphilis Serology Interpretation: Nonreactive [facility] Comment:Reference Range: Non reactive Blood specimen (specimen) 12/03/2011 14:19 EST 12/03/2011 19:28 EST Kaylynn Rice MD IMMUNOLOGY AND SERO LOGY ORDERABLES Performing Organization Address [facility] Co de Phone Number [facility] [address] [place] [address] * HIV 1/2 ANTIBODY (12/03/2011 14:19 EST) Pathologist [facility] HIV 1/2 Antibody Negative [facility] Comment:Reference Range: Neg ative Blood specimen (specimen) 12/03/2011 14:19 EST 12/03/2011 19:28 EST Kaylynn Rice MD IMMUNOLOGY AND SERO LOGY ORDERABLES Performing Organization Address [facility] de Phone Number [facility] [address] [place] [address] * CHLAMYDIA/GC AMPLIFIED (12/03/2011 14:19 EST) Pathologist [facility] Specimen Description Cervix [facility] Chlamydia Result No Chlamydia trachomatis DNA detected by fork repairer mediated amplification. [facility] GC Result No Neisseria gonorrhoeae DNA detected by fork repairer mediated amplification. [facility] Specimen of unknown material (specimen) 12/03/2011 14:19 EST 12/03/2011 19:41 EST Kaylynn Rice MD MICROBIOLOGY - GENE RAL ORDERABLES Performing Organization Address [facility] Co de Phone Number [facility] [address] [place] [address] documented in this encounter Visit Diagnoses Diagnosis [...] documented as of this encounter Care Teams Rigging Loft Repairer Relationship Specialty Start Date End Date Yair Dow MD [address] [place] [phone] PCP - General 06/03/11 03/08/12 documented as of this encounter
--- OUTSIDE RECORDS SUMMARY | 2024-07-12 18:08 | XMS_ITS | Encounter Summary ---
Author Organization [facility] Address [address] [place] [address] Care Team Providers Care Ballistics Tester Name Role Phone Yair Dow MD Primary Care Provider [phone] Reason for Visit * Reason Comments New [...] Info) Description 07/14/2011 16:00 EDT Office Visit [address] [address] Yair Dow MD [address] [place] [address] [address] Peptic ulcer disease (Primary Dx); [...] to our practice today moving here from [facility]. Her main concern today is fatigue. She [...] had an ultrasound but on exam her coater operator did not think IUD was related. No [...] except - some diffuse myalgias which her cuff cutter told her could be related to her [...] pelvic ultrasound 7) f/u 1 month for bark grinder exam and consideration of IUD removal if it seems prudent after above work-up. documented in this encounter Plan of Treatment Upcoming Encounters Date Type Department Care Team (Late st Contact Info) Description 12/29/2024 10:20 EST Office Visit [facility] Rheumatology & Immunology - [facility] [address] [place] [address] Micaela Hoff MD 111 [facility], Level 5 [place] [phone] documented as of this encounter Results * HEMOGLOBIN A1C (09/15/2011 13:56 EST) Pathologist [facility] Hemoglobin A1C 5.2 % [facility] Comment: [...] BLOOD GA S ORDERABLES Performing Organization Address City/[facility]/ZIP Co de Phone Number [facility] [address] [address] * VITAMIN D (25,OH) (09/15/2011 13:56 EST) Pathologist [facility] 25OH Vitamin D Tot 35.9 ng/ml [facility] Comment: Reference Range: <10 ng/ml: Deficient 10-30 ng/ml: Insufficient 30-100 ng/ml: Sufficient >100 ng/ml: Toxic Blood specimen (specimen) 09/15/2011 13:56 EST 09/15/2011 15:18 EST Yair Dow MD CHEMISTRY & BLOOD GA S ORDERABLES [facility] [address] [place] [address] * HEMAGRAM AND DIFFERENTIAL (09/15/2011 13:56 EST) Pathologist [facility] WBC 7.37 4.0 - 12.4 K/cmm [facility] [...] DNA PROBE ORDERABLES [facility] [address] [place] [address] * TTG AB, IGA, S (09/15/2011 13:56 EST) Pathologist [facility] tTG Ab, IgA, S <1.3 <4.0 U/mL [facility] Comment: (Note) <4 U/mL (Negative) Performed by: [facility], [address], [place] [address], Cheese Factory Worker: Estephania Guallpa, Ph.D. Blood specimen (specimen) 09/15/2011 13:56 EST 09/15/2011 15:18 EST Yair Dow MD IMMUNOLOGY AND FRANCIS WEEMS ORDERABLES [facility] [address] [place] [address] documented in this encounter Visit Diagnoses Diagnosis [...] documented as of this encounter Care Teams Ballistics Tester Relationship Specialty Start Date End Date Yair Dow MD [address] [place] [address] PCP - General 06/03/11 03/08/12 documented as of this encounter
--- OUTSIDE RECORDS SUMMARY | 2024-07-12 18:08 | XMS_ITS | Encounter Summary ---
Author Organization [facility] Address [address] [place] [address] Care Team Providers Care Nurse Manager Name Role Phone Ladonna Maurer Primary Care Provider [phone] Reason for Referral * (Routine) - Closed Specialty Diagnoses / Procedures Referred By Contac t Referred To Contact Diagnoses Hypothyroid Morbid obesity (HCC-CMS) TAMMY (obstructive sleep apnea) Procedures HEMOGLOBIN A1C Kristine Escamilla, HUANG [address] [place] [address] Referral ID Status Reason Start Date Expiration Date Visits Re quested Visits Authorized [id number] Closed 11/27/2010 1 1 * (Routine) - Closed Specialty Diagnoses / Procedures Referred By Contac t Referred To Contact Diagnoses Hypothyroid Morbid obesity (HCC-CMS) TAMMY (obstructive sleep apnea) Procedures VITAMIN D (25,OH) Kristine Escamilla, HUANG [address] [place] [address] Referral ID Status Reason Start Date Expiration Date Visits Re quested Visits Authorized [id number] Closed 11/27/2010 1 1 * (Routine) - Closed Specialty Diagnoses / Procedures Referred By Contac t Referred To Contact Diagnoses Hypothyroid Morbid obesity (HCC-CMS) TAMMY (obstructive sleep apnea) Procedures LIVER FUNCTION TESTS Kristine Escamilla APRN [address] [place] [address] Referral ID Status Reason Start Date Expiration Date Visits Re quested Visits Authorized [id number] Closed 11/27/2010 1 1 * (Routine) - Closed Specialty Diagnoses / Procedures Referred By Contac t Referred To Contact Diagnoses Hypothyroid Morbid obesity (HCC-CMS) TAMMY (obstructive sleep apnea) Procedures HEMAGRAM Kristine Escamilla, TOPOGRAPHICAL DRAFTER [address] [place] [address] Referral ID Status Reason Start Date Expiration Date Visits Re quested Visits Authorized [id number] Closed 11/27/2010 1 1 * (Routine) - Closed Specialty Diagnoses / Procedures Referred By Contac t Referred To Contact Diagnoses Hypothyroid Morbid obesity (HCC-CMS) TAMMY (obstructive sleep apnea) Procedures [facility] Kristine Escamilla, TOPOGRAPHICAL DRAFTER [address] [place] [address] Referral ID Status Reason Start Date Expiration Date Visits Re quested Visits Authorized [id number] Closed 11/27/2010 1 1 Reason for Visit * Reason Comments Obesity pre op Encounter Details Date Type Department Care Team (Late st Contact Info) Description 11/27/2010 10:00 EST Office Visit [facility] Bariatric Surgery - [place] [address] [place] [address] Kristine Escamilla, TOPOGRAPHICAL DRAFTER[address] [address] Hypothyroid; Morbid obesity (HCC-CMS); TAMMY (obstructive sleep [...] - 11/27/2010 1025 EST LADONNA MAURER [address] [facility] [address] [place] [address] Dear Erasto : Thank you for referring [...] not currently use illicit drugs. 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 with 1 3yo. 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 For exercise Teri is struggling with chronic pain of chronic sinus infection so hoping that with treatment she will be able to start exercising. . Teri met with our program shot peening operator for 30 minutes to review preoperative dietary recommendations.I did consult our shot peening operator following her visit with the patient and [...] visit in discussion of possible short and continuous churn buttermaker risks and complications of bariatric surgery as [...] Info) Description 12/29/2024 10:20 EST Office Visit [facility] Rheumatology & Immunology - [address] [address] Micaela Hoff MD [address] [place] [address], Level 5 [place] [address] documented as of this encounter [...] 12:14 EST 11/27/2010 12:16 EST Kristine Escamilla TOPOGRAPHICAL DRAFTER CHEMISTRY & BLOOD GAS ORDERABLES [facility] [address] [place] [address] * VITAMIN D (25,OH) (11/27/2010 12:14 EST) 25OH Vitamin D Tot 14.8 ng/ml [facility] Comment: Reference Range: <10 ng/ml: Deficient 10-30 ng/ml: Insufficient 30-100 ng/ml: Sufficient >100 ng/ml: Toxic Blood specimen (specimen) 11/27/2010 12:14 EST 11/27/2010 12:16 EST Kristine Escamilla APRN CHEMISTRY & BLOOD GAS ORDERABLES Performing Organization Address [facility] de Phone Number [facility] [address] [place] [address] * LIVER FUNCTION TESTS (11/27/2010 12:14 EST) [...] Bilirubin 0.0 0.0 - 0.3 mg/dl [facility] Bilirubin, Total <0.5 0.2 - 1.3 mg/dl [facility] Blood specimen (specimen) 11/27/2010 12:14 EST 11/27/2010 12:16 EST Kristine Escamilla APRN CHEMISTRY & BLOOD GAS ORDERABLES Performing Organization Address [facility] Co de Phone Number [facility] [address] [place] [address] * HEMAGRAM (11/27/2010 12:14 EST) Pathologist [facility] WBC 8.48 4.0 - 12.4 K/cmm [facility] [...] HEMATOLOGY & PF4 ORDERABLES Performing Organization Address [facility] Co de Phone Number [facility] [address] [place] [address] * CREATININE (11/27/2010 12:14 EST) Creatinine 0.86 0.7 - 1.5 mg/dl [facility] GFR, Calculated >60 ml/min/1.7 3m2 [facility] Blood specimen (specimen) 11/27/2010 12:14 EST 11/27/2010 12:16 EST Kristine Escamilla APRN CHEMISTRY & BLOOD GAS ORDERABLES Performing Organization Address City/[facility] de Phone Number [facility] [address] [place] [address] documented in this encounter Visit Diagnoses Diagnosis Hypothyroid Unspecified hypothyroidism Morbid obesity ([facility]) Morbid obesity TAMMY (obstructive sleep apnea) [...] documented as of this encounter Care Teams Nurse Manager Relationship Specialty Start Date End Date Ladonna Maurer PA [address] [place] [address] PCP - General 05/20/10 06/02/11 documented as of this encounter
--- OUTSIDE RECORDS SUMMARY | 2024-07-12 18:08 | XMS_ITS | Encounter Summary ---
Author Organization [facility] Address [address] [place] [address] Care Team Providers Care Senior Sharepoint Developer Name Role Phone Yair Dow MD Primary Care Provider [phone] Encounter Details Date Type Department Care Team (Late st Contact Info) Description 09/15/2011 Phlebotomy Only [address] [address] Farmworker, Outpatient Unspecified hypothyroidism; Abdominal pain; Peptic ulcer [...] [facility] Rheumatology & Immunology [address] [address] Micaela Hoff MD [address] [place] [address], [address] [place] [address] documented as of this encounter [...] BLOOD GA S ORDERABLES Performing Organization Address City/State/[facility] Co de Phone Number [facility] [address] [place] [address] * VITAMIN D (25,OH) (09/15/2011 13:56 EST) 25OH Vitamin D Tot 35.9 ng/ml [facility] Comment: Reference Range: <10 ng/ml: Deficient 10-30 ng/ml: Insufficient 30-100 ng/ml: Sufficient >100 ng/ml: Toxic Blood specimen (specimen) 09/15/2011 13:56 EST 09/15/2011 15:18 EST Yair Dow MD CHEMISTRY & BLOOD GA S ORDERABLES [facility] [address] [place] [address] * HEMAGRAM AND DIFFERENTIAL (09/15/2011 13:56 EST) [...] DNA PROBE ORDERABLES [facility] [address] [place] [address] * TTG AB, IGA, S (09/15/2011 13:56 EST) tTG Ab, IgA, S <1.3 <4.0 U/mL [facility] Comment: (Note) <4 U/mL (Negative) Performed by: [facility], [address], [place] [address], Storage Center Manager: Estephania Guallpa, Ph.D. Blood specimen (specimen) 09/15/2011 13:56 EST 09/15/2011 15:18 EST Yair Dow MD IMMUNOLOGY AND SEROL FLORY ORDERABLES Performing Organization Address [facility] Co de Phone Number [facility] [address] [place] [address] * T4 FREE (09/15/2011 13:55 EST) Free T4 1.5 0.8 - 1.8 ng/dL [facility] Blood specimen (specimen) 09/15/2011 13:55 EST 09/15/2011 15:18 EST Tawny Abrams MD CHEMISTRY & BLOOD GA S ORDERABLES Performing Organization Address [facility] Phone Number [facility] [address] [place] [address] * TSH (09/15/2011 13:55 EST) TSH 1.03 0.35 - 5.00 uIU/ml [facility] Blood specimen (specimen) 09/15/2011 13:55 EST 09/15/2011 15:18 EST Tawny Abrams MD CHEMISTRY & BLOOD GA S ORDERABLES Performing Organization Address [facility] Co de Phone Number [facility] [address] [place] [address] documented in this encounter Visit Diagnoses Diagnosis Unspecified hypothyroidism Abdominal pain Abdominal pain, unspecified site Peptic ulcer disease Peptic ulcer, unspecified site, unspecified as acute or chronic, without mention of hemorrhage, perforation, or obstruction Fatigue Other malaise and fatigue Vitamin D deficiency Unspecified vitamin D deficiency Hyperglycemia Other abnormal glucose documented in this encounter Care Teams Senior Sharepoint Developer Relationship Specialty Start Date End Date Yair Dow MD [address] [place] [phone] PCP - General 06/03/11 03/08/12 documented as of this encounter
--- OUTSIDE RECORDS SUMMARY | 2024-07-12 18:08 | XMS_ITS | Encounter Summary ---
Author Organization [facility] Address [address] [place] [address] [address] Team Prov[address] Care Ct Scan Technician Name Role Phone Ladonna Maurer Primary Care Provider [phone] Reason for Visit * Reason Comments New Patient Visit ekg and holter done Irregular Heart Beat started in November Dizziness a couple times per w wiyot Fatigue Encounter Details Date Type Department Care Team (Late Contact Info) Description 02/06/2011 13:20 EDT Office Visit [facility] Cardiology - [place] [address] [place] [address] Jose Manuel Benjamin MD 111 [facility], [address] [place] [address] Palpitations; Murmur; Atypical chest pain [...] Visit [facility] Rheumatology & Immunology - [address] [address] Micaela Hoff MD [address] [place] [address], [address] [place] [phone] documented as of this encounter Procedures Procedure Name Priority Date/Time Associated Diagnosis Comments ECHOCARDIOGRAM Routine 02/11/2011 11:18 EDT Murmur Palpitations Atypical chest pain documented in this encounter Results * ECHOCARDIOGRAM (02/11/2011 11:18 EDT) Anatomical Region Laterality Modality Other 02/11/2011 11:1 8 EDT Narrative 02/11/2011 12:03 EDT Interpreting Group: [facility] [address] [place] [id number] *STUDY CONCLUSIONS* SUMMARY - ??Overall left ventricular [...] Manuel Benjamin MD Fellow: ?Nawaf Ma MD Production Associate: ?? Genoveva Jackson [facility] Ordering MD: ?? Jose Manuel Benjamin MD [...] was interpreted by [facility] at [facility]. The procedure was started at 07:30:39. The [...] 11-Feb-2011 12:00:58 Procedure Note 02/11/2011 Interpreting Group: [facility] [address] [place] [address] *STUDY CONCLUSIONS* SUMMARY - Overall left ventricular [...] Manuel Benjamin MD Fellow: Nawaf Ma MD Production Associate: Genoveva Jackson [facility] Ordering MD: Jose Manuel Benjamin MD Referring MD: Ladonna Maurer Attending MD: Jose Manuel Benjamin MD Admitting MD: Jose Manuel Benjamin MD *INDICATIONS AND HISTORY* DIAGNOSES SUPPORTING MEDICAL NECESSITY: 786.5 Chest pain *PROCEDURE DATA* PROCEDURE INFORMATION: A transthoracic complete 2D study was performed. Additional evaluation included M-mode, complete spectral Doppler, and color Doppler. This wasa routine echocardiographic study. [facility]. The procedure was started at 07:30:39. The [...] NEW PATIENT EVALUATION - 02/06/2011 Ladonna Maurer [address] [address] Dear Ms Maurer: Thank you for requesting [...] a day. 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 She quit smoking several months [...] distress. Her weight is 237 pounds. Blood kaqxokrv893/80 and a pulse of 69. She has [...] MD - Jose Manuel Benjamin MD - [facility] Job ID: SM Doc ID: [id number] Ext Doc ID: [id number] cc: AUSTIN Silva documented in this encounter Discontinued Medications Medication Sig Discontinue Reason Start Date End Da te mometasone (NASONEX) 50 mcg/Actuation nasal spray 2 Sprays by Nasal route daily. Patient Stopped Taking 02/06/2011 documented as of this encounter Care Teams Ct Scan Technician Relationship Specialty Start Date End Date Ladonna Maurer PA [address] [place] [address] PCP - General 05/20/10 06/02/11 documented as of this encounter
--- OUTSIDE RECORDS SUMMARY | 2024-07-12 18:08 | XMS_ITS | Encounter Summary ---
Author Organization [facility] Address [address] [place] [address] Care Team Providers Care Research Aide Name Role Phone Yair Dow MD Primary Care Provider [phone] Reason for Visit * Reason Onset Date Comments Cellulitis 10/14/2011 MRSA INFECTION - SAW DR HERNANDEZ 10/13/11 Encounter Details Date Type Department Care Team (Late st Contact Info) Description 10/14/[address] [address] Yair Dow MD [address] [place] [address] [address] Cellulitis (MRSA INFECTION - SAW [...] [facility] Rheumatology & Immunology - [address] [address] Micaela Hoff MD 111 [facility], [address] [place] [phone] documented as of this encounter Visit Diagnoses Not on filedocumented in this encounter Care Teams Research Aide Relationship Specialty Start Date End Date Yair Dow MD [address] [place] [phone] PCP - General 06/03/11 03/08/12 documented as of this encounter
--- OUTSIDE RECORDS SUMMARY | 2024-07-12 18:08 | XMS_ITS | Encounter Summary ---
Author Organization [facility] Address [address] [place] [address] Care Team Providers Care Electronic Systems Technician Name Role Phone Yair Dow MD Primary Care Provider [phone] Encounter Details Date Type Department Care Team (Latest Contact Info) Description 11/18/2011 9:39 EST - 11/18/2011 23:59 [facility] Hospital Encounter [address] [address] Unknown, Provider, Drew Grijalva MD [address] [place] [address] [place] [phone] Discharge Disposition: Auto Discharge Social History [...] Visit [facility] Rheumatology & Immunology - [address] [address] Micaela Hoff MD 111 [facility], [address] [place] [phone] documented as of this encounter Visit Diagnoses Not on filedocumented in this encounter Additional Health Concerns Infection Onset Date Last Indicated Resolved Time MRSA 10/20/2011 10/20/2011 documented as of this encounter Care Teams Electronic Systems Technician Relationship Specialty Start Date End Date Yair Dow MD [address] [place] [address] PCP - General 06/03/11 03/08/12 documented as of this encounter
--- OUTSIDE RECORDS SUMMARY | 2024-07-12 18:08 | XMS_ITS | Encounter Summary ---
Author Organization [facility] Address [address] [place] [address] Care Team Providers Care Set Designer Name Role Phone Yair Dow MD Primary Care Provider [phone] Encounter Details Date Type Department Care Team (Late st Contact Info) Description 09/15/2011 13:48 EST - 09/15/2011 23:59 [facility] Hospital Encounter [address] [address] Unknown, Provider, Yair Dow MD [address] [place] [address] [address] [facility] [address] [place] [address] Discharge Disposition: Auto Discharge Social History Tobacco [...] buPROPion (WELLBUTRIN SR) 150 mg SR tabletIndications:Toba investment accountant dependence Take 1 Tab by mouth 2 [...] [facility] Rheumatology & Immunology - [address] [address] Micaela Hoff MD [address] [facility], [address] [place] [phone] documented as of this encounter Visit Diagnoses Not on filedocumented in this encounter Care Teams Set Designer Relationship Specialty Start Date End Date Yair Dow MD [address] [place] [phone] PCP - General 06/03/11 03/08/12 documented as of this encounter
--- OUTSIDE RECORDS SUMMARY | 2024-07-12 18:08 | XMS_ITS | Encounter Summary ---
Author Organization [facility] Address [address] [place] [address] Care Team Providers Care Mixer Operator Name Role Phone Yair Dow MD Primary Care Provider [phone] Reason for Visit * Reason Comments Abscess I have an infected abscess on my leg onset Thursday night. extensive tattoo done on left leg 10 hour in last 4 weeks. Encounter Details Date Type Department Care Team (Late st Contact Info) Description 10/18/2011 18:48 EST - 10/18/2011 21:02 EST Emergency [facility] Emergency Department - [address] [place] [address] [place] [address] Robin Randhawa MD 111 [facility], [address] [place] [phone] Emergency, MD Fede Abscess of left leg [...] Everywhere. * SKIN ABSCESS: AFTER YOUR VISIT (WELSH) documented in this encounter Medications at Time [...] HPI Comments: Initial patient contact. 10/18/2011 19:50 Trei Haro is a 31 y.o. female who [...] Stroke Mother ??? Heart Disease Father 50 [place] ??? Diabetes Father ??? Cancer Maternal Aunt thyroid ??? Heart Disease Maternal Grandmother [place] ??? Diabetes Maternal Grandmother ??? Cancer Maternal [...] to verify the correct patient, procedure, equipment, aviation support equipment repairer and site/side marked as required. Type: abscess [...] encounter Miscellaneous Notes * Scanned Note-Null - Telecommunication Equipment Repairer, Scan - 10/23/2011 0654 EST documented in this encounter Plan of Treatment Upcoming Encounters Date Type Department Care Team (Late st Contact Info) Description 12/29/2024 10:20 EST Office Visit [facility] Rheumatology [place] [address] Micaela Hoff MD 111 [facility], [address] [place] [address] documented as of this [...] Stroke Mother ? Heart Disease Father 50 ??PR ? ? Diabetes Father ? Cancer Maternal Aunt ?thyroid ? ? Heart Disease Maternal Grandmother ?[place] ? ? Diabetes Maternal Grandmother ? Cancer [...] to verify the correct patient, procedure, equipment, aviation support equipment repairer and site/side marked as required. Type: abscess [...] Mother ? ? Heart Disease Father 50 [place] ? ? Diabetes Father ? ? Cancer Maternal Aunt thyroid ? ? Heart Disease Maternal Grandmother [place] ? ? Diabetes Maternal Grandmother ? ? [...] called to verifythe correct patient, procedure, equipment, aviation support equipment repairer and site/sidemarked as required. Type: abscess Body [...] - GENERAL ORDERABLES [facility] [address] [place] [address] documented in this encounter Visit Diagnoses Diagnosis [...] 5, STAT 2100 (Given - Provid er: [facility]) Hydrocodone w APAP 5-500 mg Tab??STARTER PACK (COMPLETED) 1 Package, oral, Once (Without Time Specified), 1 dose, Starting on 10/18/11 at 2032, Until 10/18/11 at 2100, STAT 2100 (Given - Provid er: [facility]) lorazepam (ATIVAN) tablet 1 mg (COMPLETED) 1 mg, sublingual, NOW X1, 1 dose, On 10/18/11 at 2015, STAT 2008 (Given - Provid er: [facility]) documented in this encounter Care Teams Mixer Operator Relationship Specialty Start Date End Date Yair Dow MD [address] [place] [address] PCP - General 06/03/11 03/08/12 documented as of this encounter
--- OUTSIDE RECORDS SUMMARY | 2024-07-12 18:08 | XMS_ITS | Encounter Summary ---
Author Organization [facility] Address [address] [place] [address] Care Team Providers Care Fighting Vehicle Systems Maintainer Name Role Phone Ladonna Maurer Primary Care Provider [phone] Reason for Visit * Reason Comments Abdominal [...] 19:30 EDT - 05/11/2011 22:23 EDT Emergency [facility] Emergency Department - [address] [id number] Juan Alberto Farley PA-Jose A 111 [facility], [address] [place] [address] Emergency, MD Fede Chronic generalized [...] ABDOMINAL PAIN IN ADULTS: AFTER YOUR VISIT (KOREAN) * IRRITABLE BOWEL SYNDROME: AFTER YOUR VISIT (KOREAN) documented in this encounter Medications at Time [...] 2 days from a different part of [place]. She is trying to obtain a primary care physician and states she is waiting for her medical records to [facility]. The history is provided by [...] Father 50 [place] ??? Diabetes Father ??? Cancer Maternal Aunt thyroid ??? Heart Disease Maternal Grandmother [place] ??? [...] 1. Chronic generalized abdominal pain (789.07L) PCP: AUSITN OWEN was available for supervision. 05/13/2011 10:59 * Siobhan Dalton RN - 05/11/20112023 EDT Pt has mildly anxious affect. * Siobhan Dalton RN - 05/11/20112021 EDT Denies any dysuria. Has IUD, no regular menses. is only sexual partner. documented in this encounter Miscellaneous Notes * Scanned Note-Null - Clinical Rn, Scan - 05/11/2011 0000 EDT documented in this encounter Plan of Treatment Upcoming Encounters Date Type Department Care Team (Late st Contact Info) Description 12/29/2024 10:20 EST [facility] Rheumatology & Immunology - [address] [address] Micaela Hoff MD 111 [facility], [address] [place] [phone] documented as of this encounter Visit Diagnoses Diagnosis Chronic generalized abdominal pain Abdominal pain, generalized documented in this encounter Care Teams Fighting Vehicle Systems Maintainer Relationship Specialty Start Date End Date Ladonna Maurer PA [address] [place] [address] PCP - General 05/20/10 06/02/11 documented as of this encounter
--- OUTSIDE RECORDS SUMMARY | 2024-07-12 18:08 | XMS_ITS | Encounter Summary ---
Author Organization [facility] Address [address] [place] [address] Care Team Providers Care Coat Ironer Hand Name Role Phone Ladonna Maurer Primary Care Provider [phone] Reason for Visit * Reason Comments Obesity Encounter Details Date Type Department Care Team (Late st Contact Info) Description 10/10/2010 11:00 EST Office Visit [facility] Bariatric Surgery - [place] [address] [place], [place] [phone] Skyler Blanco MD [address] [place] [address] Morbid obesity ([facility]) (Primary Dx) Social History Tobacco Use Types [...] Crackers, Pop tarts, cookie, cocoa, bread, cheese, st helenian fries with gravy and cheese Snacking:yes, crackers, [...] encounter Miscellaneous Notes * Scanned Note-Null - Engine Dynamometer Tester, Scan - 09/27/2011 1201 EST documented in this encounter Plan of Treatment Upcoming Encounters Date Type Department Care Team (Late st Contact Info) Description 12/29/2024 10:20 EST Office Visit [facility] Rheumatology & Immunology - [facility] [address] [place] [address] Micaela Hoff MD 111 [facility], [address] [place] [phone] documented as of this encounter Visit Diagnoses Diagnosis Morbid obesity ([facility])- Primary Morbid obesity documented in this encounter [...] 07/14/2011 added in this encounter Care Teams Coat Ironer Hand Relationship Specialty Start Date End Date Ladonna Maurer PA [address] [place] [address] PCP - General 05/20/10 06/02/11 documented as of this encounter
--- OUTSIDE RECORDS SUMMARY | 2024-07-12 18:08 | XMS_ITS | Encounter Summary ---
Author Organization [facility] Address [address] [place] [address] Care Team Providers Care Basin Tender Name Role Phone Yair Dow MD Primary Care Provider [phone] Reason for Visit * Reason Comments Wound Check pt here Sat for absc ess on left leg. Pt here for wound check Encounter Details Date Type Department Care Team (Late st Contact Info) Description 10/20/2011 15:59 EST - 10/20/2011 17:28 EST Emergency [facility] Emergency Department - [facility] [place] [address] [place] [address] Jayson Bhakta, PA-C [address] [place] [address] Emergency, MD Fede Wound check, abscess Discharge [...] encounter Miscellaneous Notes * Scanned Note-Null - Shoulder Joiner, Scan - 10/21/2011 3899 EST documented in this encounter Plan of Treatment Upcoming Encounters Date Type Department Care Team (Late st Contact Info) Description 12/29/2024 10:20 EST Office Visit [facility] Rheumatology & Immunology - [address] [phone] Micaela Hoff MD 111 [facility], [address] [place] [phone] documented as of this encounter Visit Diagnoses Diagnosis Wound check, abscess Encounter for other specified aftercare documented in this encounter Additional Health Concerns Infection Onset Date Last Indicated Resolved Time MRSA 10/20/2011 10/20/2011 documented as of this encounter Care Teams Basin Tender Relationship Specialty Start Date End Date Yair Dow MD [address] [place] [phone] PCP - General 06/03/11 03/08/12 documented as of this encounter
--- OUTSIDE RECORDS SUMMARY | 2024-07-12 18:08 | XMS_ITS | Encounter Summary ---
Author Organization [facility] Address [address] [place] [address] Care Team Providers Care Cone Marker Name Role Phone Ladonna Maurer Primary Care Provider [phone] Reason for Visit * Reason Onset Date Comments Other 05/22/2011 Encounter Details Date Type Department Care Team (Late st Contact Info) Description 05/22/2011 Telephone [facility] Family Medicine [address] [address] Ladonna Maurer PA [address] [place] [address] Other Social History Tobacco Use Types [...] 05/22/2011 1535 EDT Received pt's records from [facility] today Pt would like to transfer care here at [facility] Called left message on pt's home voicemail to call to schedule an appt documented in this encounter Plan of Treatment Upcoming Encounters Date Type Department Care Team (Late Contact Info) Description 12/29/2024 10:20 EST Office Visit [facility] Rheumatology & Immunology - [facility] [address] [place], [place] [address] Micaela Hoff MD 111 [facility], [address] [place] [phone] documented as of this encounter Visit Diagnoses Not on filedocumented in this encounter Care Teams Cone Marker Relationship Specialty Start Date End Date Ladonna Maurer PA [address] [place] [address] PCP - General 05/20/10 06/02/11 documented as of this encounter
--- OUTSIDE RECORDS SUMMARY | 2024-07-12 18:08 | XMS_ITS | Encounter Summary ---
Author Organization [facility] Address [address] [place] [address] Care Team Providers Care Ambulatory Services Representative Name Role Phone Yair Dow MD Primary Care Provider [phone] Reason for Visit * Reason Onset Date Comments Results 09/30/2011 Encounter Details Date Type Department Care Team (Late st Contact Info) Description 09/30/2011 Telephone [facility] Endocrinology - [address] [phone] Tawny Abrams MD [address] [place] [phone] Results Social History Tobacco Use Types Packs/Day [...] Info) Description 12/29/2024 10:20 EST Office Visit [facility] Rheumatology & Immunology - [facility] [address] [place], [place] [address] Micaela Hoff MD 111 [facility], [address] [place] [address] documented as of this encounter Visit Diagnoses Not on filedocumented in this encounter Care Teams Ambulatory Services Representative Relationship Specialty Start Date End Date Yair Dow MD [address] [place] [address] PCP - General 06/03/11 03/08/12 documented as of this encounter
--- OUTSIDE RECORDS SUMMARY | 2024-07-12 18:08 | XMS_ITS | Encounter Summary ---
Author Organization [facility] Address [address] [place] [address] Care Team Providers Care Agricultural Education Professor Name Role Phone Yair Dow MD Primary Care Provider [phone] Encounter Details Date Type Department Care Team (Late st Contact Info) Description 11/18/2011 Phlebotomy Only [address] [phone] Minister, Outpatient Unspecified hypothyroidism; Chronic lymphocytic thyroiditis Social [...] [facility] Rheumatology & Immunology - [address] [phone] Micaela Hoff MD 111 [facility] 5 [place] [phone] (work) documented as of this encounter Procedures [...] * T4 FREE (11/18/2011 9:42 EST) Pathologist [facility] Free T4 1.8 0.8 - 1.8 ng/dL [facility] Blood specimen (specimen) 11/18/2011 9:42 EST 11/18/2011 11:54 EST Drew Grijalva MD CHEMISTRY & BLOOD GAS ORDERABLES Performing Organization Address [facility] Co de Phone Number [facility] [address] [place] [address] * (ABNORMAL) TSH (11/18/2011 9:42 EST) Pathologist [facility] TSH 0.16(L) 0.35 - 5.00 uIU/ml [facility] Blood specimen (specimen) 11/18/2011 9:42 EST 11/18/2011 11:54 EST Drew Grijalva MD CHEMISTRY & BLOOD GAS ORDERABLES Performing Organization Address [facility] Co de Phone Number [facility] [address] [place] [address] * (ABNORMAL) THYROPEROXIDASE ANTIBODY (11/18/2011 9:42 EST) Thyroperoxidase Ab 296(H) <61 U/mL [facility] Blood specimen (specimen) 11/18/2011 9:42 EST 11/18/2011 11:54 EST Drew Grijalva MD CHEMISTRY & BLOOD GAS ORDERABLES Performing Organization Address [facility] Phone Number BURGESS ALLEN [address] [address] * ANTI THYROGLOBULIN (11/18/2011 9:42 EST) Thyroglobulin Ab 46 <61 U/mL LUISA TIJERINA Blood specimen (specimen) 11/18/2011 9:42 EST 11/18/2011 11:54 EST Drew Grijalva MD CHEMISTRY & BLOOD GAS ORDERABLES Performing Organization Address [facility] de Phone Number [facility] [address] [address] documented in this encounter Visit Diagnoses Diagnosis Unspecified hypothyroidism Chronic lymphocytic thyroiditis documented in this encounter Additional Health Concerns Infection Onset Date Last Indicated Resolved Time MRSA 10/20/2011 10/20/2011 documented as of this encounter Care Teams Agricultural Education Professor Relationship Specialty Start Date End Date Yair Dow MD [address] [place] [address] PCP - General 06/03/11 03/08/12 documented as of this encounter
--- OUTSIDE RECORDS SUMMARY | 2024-07-12 18:09 | XMS_ITS | Encounter Summary ---
Author Organization [facility] Address [address] [place] [address] Care Team Providers Care Nut Roaster Helper Name Role Phone Ladonna Maurer Primary Care Provider Encounter Details Date Type Department Care Team (Latest Contact Info) Description 08/07/2010 10:00 EDT - 08/07/2010 23:59 EDT Hospital Encounter [facility] [address] [place] [address] Skyler Blanco MD [address] [place] [phone] Discharge Disposition: Auto Discharge Social History [...] Info) Description 12/29/2024 10:20 EST Office Visit [facility] Rheumatology & Immunology - [address] 5701[address] Micaela Hoff MD 111 [facility], Level 5 [place] [address] documented as of this encounter Visit Diagnoses Not on filedocumented in this encounter Care Teams Nut Roaster Helper Relationship Specialty Start Date End Date Ladonna Maurer PA [address] [place] [phone] PCP - General 05/20/10 06/02/11 documented as of this encounter
--- OUTSIDE RECORDS SUMMARY | 2024-07-12 18:09 | XMS_ITS | Encounter Summary ---
Author Organization [facility] Address [address] [place] [address] Care Team Providers Care Real Estate Agent/Broker Name Role Phone Ladonna Maurer Primary Care Provider [phone] Encounter Details Date Type Department Care Team (Late st Contact Info) Description 11/01/2007 Results Only [facility] Obstetrics & Midwifery - [address] [address] Kenton Parrish MD Social History Tobacco Use [...] [facility] Rheumatology & Immunology - [address] 3404[address] Micaela Hoff MD [address] [place] [address], Level 5 [place] [phone] documented as of this encounter Procedures Procedure [...] AND SEROL OGY ORDERABLES Performing Organization Address [facility] Co de Phone Number [facility] [address] [place] [address] * GLUCOSE-1HR GESTATIONAL SCREEN (11/01/2007 13:23 EST) [...] & DNA PROBE ORDERABLES Performing Organization Address [facility] de Phone Number [facility] [address] [place] [address] documented in this encounter Visit Diagnoses Not on filedocumented in this encounter Care Teams Real Estate Agent/Broker Relationship Specialty Start Date End Date Ladonna Maurer PA [address] [place] [address] PCP - General 05/20/10 06/02/11 documented as of this encounter
--- OUTSIDE RECORDS SUMMARY | 2024-07-12 18:09 | XMS_ITS | Encounter Summary ---
Author Organization [facility] Address [address] [place] [address] Care Team Providers Care Pelletizer Tender Name Role Phone Unavailable Primary Care Provider Unavailabl e Encounter Details Date Type Department Care Team (Late st Contact Info) Description 01/25/2006 Office Visit [facility] [address] [place] [address] Bethel Harding MD Social History Tobacco Use [...] 8/10. The patient has had nausea. Treatment POLE SHAVER HELPER: None. PAST HX: Negative. Last normal menstrual [...] left the Emergency Department accompanied by a operations support manager (before completion of treatment). The patient appears [...] [facility] Rheumatology & Immunology - [address] [address] Micaela Hoff MD [address] [place] [address], Level [address] [place] [address] documented as of this encounter Visit Diagnoses Not on filedocumented in this encounter
--- OUTSIDE RECORDS SUMMARY | 2024-07-12 18:09 | XMS_ITS | Encounter Summary ---
Author Organization [facility] Address [address] [place] [address] Care Team Providers Care Healthcare Translator Name Role Phone Unavailable Primary Care Provider Unavailabl e Encounter Details Date Type Department Care Team (Late st Contact Info) Description 12/09/2004 16:17 EST Hospital Encounter [facility] - Other [address] [place] [address] Susy Aguilera MD [address] [place] [phone] Social History Tobacco Use Types Packs/Day Years [...] [facility] Rheumatology & Immunology - [facility] [address] [place], [place] [phone] Micaela Hoff MD 111 [facility], Level 5 [place] [phone] documented as of this encounter Procedures Procedure Name Priority Date/Time Associated Diagnosis Comments CARE HOME FISH SEINER Routine 01/06/2005 3:30 EST documented in this encounter Results * CARE HOME FISH SEINER (01/06/2005 3:30 EST) Anatomical Region Laterality Modality Other 01/06/2005 3:30 EST Narrative 06/28/2009 11:21 EDT [facility] TRANSVAGINAL ULTRASOUND/SONOHYSTEROGRAM - 01/06/05 INDICATION: S/p [...] Procedure Note Robin Garay MD - 06/28/2009 [facility] TRANSVAGINAL ULTRASOUND/SONOHYSTEROGRAM - 01/06/05 INDICATION: S/p [...] - 01/07/05 Linda Bustillos MD IMG US CARE HOME ORDERABLE S documented in this encounter Visit Diagnoses Not on filedocumented in this encounter Additional Health Concerns Infection Onset Date Last Indicated Resolved Time MRSA 10/20/2011 10/20/2011 documented as of this encounter
--- OUTSIDE RECORDS SUMMARY | 2024-07-12 18:09 | XMS_ITS | Encounter Summary ---
Author Organization [facility] Address [address] [place] [address] Care Team Providers Care Electrical System Specialist Name Role Phone Unavailable Primary Care Provider Unavailabl e Encounter Details Date Type Department Care Team (Latest Contact Info) Description 10/31/2007 10:15 EST - 10/31/2007 11:59 EST Hospital Encounter [facility] Emergency Department - [address] [phone] Emergency, MD Fede Discharge Disposition: Home or [...] [facility] Rheumatology & Immunology - [address] [address] Micaela Hoff MD [address] [place] [address], Level [address] [place] [phone] documented as of this encounter Visit Diagnoses Not on filedocumented in this encounter
--- OUTSIDE RECORDS SUMMARY | 2024-07-12 18:09 | XMS_ITS | Encounter Summary ---
Author Organization [facility] Address [address] [place] [address] Care Team Providers Care Change Control Analyst Name Role Phone Ladonna Maurer Primary Care Provider [phone] Encounter Details Date Type Department Care Team (Late st Contact Info) Description 12/09/2004 Results Only [facility] - [place] conversion [address] [place] [phone] Laurel Blount MD [address] [place] [address] Social History Tobacco Use Types [...] 12/29/2024 10:20 EST Office Visit [facility] Rheumatology & Immunology - [address] [address] Micaela Hoff MD [address] [facility], Level 5 [place] [address] documented as of this encounter [...] BLOO D GAS ORDERABLES Performing Organization Address [facility] Co de Phone Number [facility] [address] [place] [address] * MONO-TEST (12/09/2004 16:06 EST) Pathologist [facility] Callaway-Test Neg NEG [facility] 12/09/2004 16:0 6 EST 12/09/2004 19:43 EST Laurel Blount MD CHEMISTRY & BLOO D GAS ORDERABLES Performing Organization Address [facility] de Phone Number [facility] [address] [place] [address] * HEMAGRAM (12/09/2004 16:06 EST) WBC 7.02 [...] HEMATOLOGY & PF4 ORDERABLES Performing Organization Address City/State/[facility] Co de Phone Number [facility]ER [facility] [address] [place] [address] documented in this encounter Visit Diagnoses Not on filedocumented in this encounter Care Teams Change Control Analyst Relationship Specialty Start Date End Date Ladonna Maurer PA [address] [place] [address] PCP - General 05/20/10 06/02/11 documented as of this encounter
--- OUTSIDE RECORDS SUMMARY | 2024-07-12 18:09 | XMS_ITS | Encounter Summary ---
Author Organization [facility] Address [address] [place] [address] Care Team Providers Care Wire Bender Hand Name Role Phone Unavailable Primary Care Provider Unavailabl e Encounter Details Date Type Department Care Team (Late st Contact Info) Description 11/01/2007 12:15 EST Hospital Encounter [address] [address] Kenton Parrish MD Social History Tobacco Use [...] [facility] Rheumatology & Immunology - [address] [address] Micaela Hoff MD [address] [place] [address], Level [address] [place] [phone] documented as of this encounter Visit Diagnoses Not on filedocumented in this encounter Additional Health Concerns Infection Onset Date Last Indicated Resolved Time MRSA 10/20/2011 10/20/2011 documented as of this encounter
--- OUTSIDE RECORDS SUMMARY | 2024-07-12 18:09 | XMS_ITS | Encounter Summary ---
Author Organization [facility] Address [address] [place] [address] Care Team Providers Care Mental Health Professional Name Role Phone Ladonna Maurer Primary Care Provider [phone] Reason for Visit * Reason Comments Obesity pre op Encounter Details Date Type Department Care Team (Late st Contact Info) Description 08/29/2010 10:45 EDT Office Visit [facility] Bariatric Surgery - [place] [address] [place], [place] [phone] Skyler Blanco MD [address] [place] [address] GERD (gastroesophageal reflux disease); Morbid obesity ([facility]) Social History Tobacco Use Types Packs/Day Years [...] encounter Miscellaneous Notes * Scanned Note-Null - Associate Justice, Scan - 08/28/2011 1109 EDT documented in this encounter Plan of Treatment Upcoming Encounters Date Type Department Care Team (Late st Contact Info) Description 12/29/2024 10:20 EST Office Visit [facility] Rheumatology & Immunology - [address] [phone] Micaela Hoff MD [address] [place] [address], Level [address] [place] [address] Scheduled Orders Name Type Priority Associated Diagnoses Orde r Schedule UPPER ENDOSCOPY GI Routine GERD (gastroesophageal reflux disease) Morbid obesity ([facility]) Ordered: 08/29/2010 documented as of this encounter Visit Diagnoses Diagnosis GERD (gastroesophageal reflux disease) Esophageal reflux Morbid obesity ([facility]) Morbid obesity documented in this encounter [...] 02/06/2011 added in this encounter Care Teams Mental Health Professional Relationship Specialty Start Date End Date Ladonna Maurer PA [address] [place] [address] PCP - General 05/20/10 06/02/11 documented as of this encounter
--- OUTSIDE RECORDS SUMMARY | 2024-07-12 18:09 | XMS_ITS | Encounter Summary ---
Author Organization [facility] Address [address] [place] [address] Care Team Providers Care Crusher Feeder Name Role Phone Unavailable Primary Care Provider Unavailabl e Encounter Details Date Type Department Care Team (Latest Contact Info) Description 01/25/2006 2:33 EST - 01/25/2006 11:59 EST Hospital Encounter [facility] Emergency Department - [address] [phone] Emergency, MD Fede Discharge Disposition: Home or [...] [facility] Rhe[facility] Immunology - [address] [address]47[address] Micaela Hoff MD [address] [place] [address], Level 5 [place] [phone] documented as of this encounter Visit Diagnoses Not on filedocumented in this encounter
--- OUTSIDE RECORDS SUMMARY | 2024-07-12 18:09 | XMS_ITS | Encounter Summary ---
Author Organization [facility] Address [address] [place] [address] Care Team Providers Care Mrb Engineer Name Role Phone Ladonna Maurer Primary Care Provider [phone] Reason for Visit * Reason Comments Obesity #1 Encounter Details Date Type Department Care Team (Late st Contact Info) Description 08/01/2010 10:30 EDT Office Visit [facility] Bariatric Surgery - [address] [phone] Skyler Blanco MD [address] [place] [address] GERD (gastroesophageal reflux disease) (Primary [...] to Shedule a follow-up appt with our cell biologist and our nurse practitioner, Monique. We will obtain the results of the following: UGI. Teri Haro is an appropriate candidate for LapBand surgery pending test results.. For the next visit she was advised to come with her family. Skyler Blanco MD documented in this encounter Miscellaneous Notes * Scanned Note-Null - [place], Retort Unloader - 08/07/2011 1402 EDT documented in this encounter Plan of Treatment Upcoming Encounters Date Type Department Care Team (Late st Contact Info) Description 12/29/2024 10:20 EST Office Visit [facility] Rheumatology & Immunology - [address] [phone] Micaela Hoff MD 111 [facility], Level [address] [place] [address] documented as of this encounter [...] duodenal bulb and sweep were obtained. Findings: Insurance Job Titles KUB normal bowel gas pattern. An IUD [...] duodenal bulb and sweep were obtained. Findings: Insurance Job Titles KUB normal bowel gas pattern. An IUD [...] 11/27/2010 added in this encounter Care Teams Mrb Engineer Relationship Specialty Start Date End Date Ladonna Maurer PA [address] [place] [address] PCP - General 05/20/10 06/02/11 documented as of this encounter
--- OUTSIDE RECORDS SUMMARY | 2024-07-12 18:09 | XMS_ITS | Encounter Summary ---
Author Organization [facility] Address [address] [place] [address] Care Team Providers Care Scrap Iron Cutter Name Role Phone Ladonna Maurer Primary Care Provider [phone] Encounter Details Date Type Department Care Team (Late st Contact Info) Description 01/09/2005 Results Only [facility] Family Medicine [address] [address] Gustavo Smith MD [address] [phone] Social History Tobacco Use Types Packs/Day Years [...] EST Office Visit [facility] Rheumatology & Immunology - [address] [phone] Micaela Hoff MD 111 [facility], Level [address] [place] [address] documented as of this encounter [...] FOR S Q LOAD Performing Organization Address [facility] de Phone Number [facility] [address] [place] [address] * LIPID PROFILE (INCLUDES CHOLESTEROL, TRIGLYCERIDES, HDL, LDL) (01/09/2005 9:39 EST) Cholesterol 130 mg/dl [facility] Comment: Desirable:<200 Borderline:200-239 High Risk:>gy=306 Triglycerides 59 35 - 160 mg/dl [facility] HDL 40 mg/dl [facility] Comment: Highly Desirable:>60 Desirable:35-60 High Risk:<35 LDL, Calculated 78 mg/dl [facility] Comment: Desirable:<130 Borderline:130-159 High Risk:>qz=001 Chol/HDL Ratio 3.3 NARENDRA HAMPTON [facility] Fasting? No [facility] 01/09/2005 9:39 EST 01/09/2005 16:52 EST Gustavo Smith MD CHEMISTRY & BLOOD GA S ORDERABLES Performing Organization Address [facility] de Phone Number [facility] [address] [place] [address] * HIV ANTIBODY (01/09/2005 9:39 EST) HIV 1/2 Antibody NONREACT. NR [facility] 01/09/2005 9:39 EST 01/09/2005 16:52 EST Gustavo Smith MD IMMUNOLOGY AND SEROL OGY ORDERABLES Performing Organization Address [facility] de Phone Number [facility] [address] [place] [address] * HEPATITIS C ANTIBODY (01/09/2005 9:39 EST) Hepatitis C Ab Neg FLEKRYSTINA HAMPTON [facility] 01/09/2005 9:39 EST 01/09/2005 16:52 EST Gustavo Smith MD CHEMISTRY & BLOOD GA S ORDERABLES Performing Organization Address [facility] de Phone Number [facility] [address] [place] [address] * HEPATITIS B SURFACE ANTIBODY (01/09/2005 9:39 EST) Hepatitis B Surface Ab Pos [facility] 01/09/2005 9:39 EST 01/09/2005 16:52 EST Gustavo Smith MD CHEMISTRY & BLOOD GA S ORDERABLES Performing Organization Address [facility] de Phone Number [facility] [address] [place] [address] documented in this encounter Visit Diagnoses Not on filedocumented in this encounter Care Teams Scrap Iron Cutter Relationship Specialty Start Date End Date Ladonna Maurer PA [address] [place] [address] PCP - General 05/20/10 06/02/11 documented as of this encounter
--- OUTSIDE RECORDS SUMMARY | 2024-07-12 18:09 | XMS_ITS | Encounter Summary ---
Author Organization [facility] Address [address] [place] [address] Care Team Providers Care Insurance Marketing Specialist Name Role Phone Ladonna Maurer Primary Care Provider [phone] Yair Dow MD Primary Care Provider Unknown, Provider Primary Care Provider [phone] Ladonna Maurer Primary Care Provider [phone] Cara Arteaga MD Primary Care Provider Conor Angel MD Primary Care Provider [phone] None, Provider Primary Care Provider Kaylynn Pizarro MD Primary Care Provider [phone] Encounter Details Date Type Department Care Team (Late st Contact Info) Description 08/28/2010 Documentation Visit [facility] Bariatric Surgery - [place] [address] [place], [place] [address] Kristine Escamilla, BREAKER MECHANIC [address] [facility] [address] [place], [place] [address] Social History Tobacco Use Types Packs/Day Years [...] [facility] Rheumatology & Immunology - [facility] [address] [place] [address] Micaela Hoff MD 111 [facility], Level [address] [place] [phone] documented as of this encounter Visit Diagnoses Not on filedocumented in this encounter Additional Health Concerns Infection Onset Date Last Indicated Resolved Time 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 10/20/2011 documented as of this encounter Care Teams Insurance Marketing Specialist Relationship Specialty Start Date End Date Ladonna Muarer PA [address] [place] [address] PCP - General 05/20/10 06/02/11 Yair Dow MD [address] [place] [address] [address] [place] [phone] PCP - General 06/03/11 03/08/12 Unknown, ProviderMD PCP - General 03/09/12 05/11/12 Ladonna Maurer PA [address] [place] [address] PCP - General 05/12/12 01/24/13 Cara Arteaga MD [address] [place] [phone] PCP - General 01/25/13 02/06/14 Conor Angel MD [address] [place] [address] PCP - General 02/07/14 06/08/14 None, Provider PCP - General 06/09/14 03/01/15 Kaylynn Gimenez MD [address] [place] [address] PCP - General 03/02/15 documented as of this encounter
--- OUTSIDE RECORDS SUMMARY | 2024-07-12 18:09 | XMS_ITS | Encounter Summary ---
Author Organization [facility] Address [address] [place] [address] Care Team Providers Care Hadoop Infrastructure Architect Name Role Phone Unavailable Primary Care Provider Unavailabl e Encounter Details Date Type Department Care Team (Latest Contact Info) Description 12/14/2005 10:26 EST - 12/14/2005 11:59 EST Hospital Encounter [facility] Emergency Department - [address] [address] Emergency, MD Fede Discharge Disposition: Home or [...] [facility] & Immunology - [address] [address] Micaela Hoff MD [address] [place] [address], Level [address] [place] [address] documented as of this encounter [...] growth [facility] Report Status Final [id number] [facility] 12/14/2005 10:5 0 EST 12/14/2005 12:59 EST Default Emergency MICROBIOLOGY - GENE RAL ORDERABLES Performing Organization Address [facility] de Phone Number [facility] [address] [place] [address] * (ABNORMAL) URINE MICROSCOPIC ONLY (12/14/2005 10:50 [...] Emergency URINALYSIS ORDERABL ES Performing Organization Address [facility] de Phone Number [facility] [address] [place] [address] * CULTURE IF UA POSITIVE (12/14/2005 10:50 EST) Culture if Indicated Culture indicated by urinalysis results. [facility] 12/14/2005 10:5 0 EST 12/14/2005 10:52 EST Default Emergency MICROBIOLOGY - GENE RAL ORDERABLES [facility] [address] [place] [address] documented in this encounter Visit Diagnoses Not on filedocumented in this encounter
--- OUTSIDE RECORDS SUMMARY | 2024-07-12 18:09 | XMS_ITS | Encounter Summary ---
Author Organization [facility] Address [address] [place] [address] Care Team Providers Care Die Maintenance Technician Name Role Phone Unavailable Primary Care Provider Unavailabl e Encounter Details Date Type Department Care Team (Latest Contact Info) Description 02/22/2008 14:29 EDT Hospital Encounter [address] [address] Shanique Eagle MD [address] [address] Discharge Disposition: Auto Discharge Social History Tobacco [...] [facility] Rheumatology & Immunology - [address] [phone] Micaela Hoff MD [address] [place] [address], Level 5 [place] [phone] documented as of this encounter Procedures Procedure Name Priority Date/Time Associated Diagnosis Comments SENIOR CARE FOLLOW-UP 02/22/2008 16:21 EDT documented in this encounter Results * SENIOR CARE FOLLOW-UP (02/22/2008 16:21 EDT) Anatomical Region Laterality Modality Other 02/22/2008 16:2 1 EDT Narrative 04/15/2009 13:51 EDT FOLLOW UP,56657/GROWTH/UTERINE SIZE/DATES MISMATCH Please refer to the separate [facility] report. ??Contact Maternal Medicine. Procedure Note Kenton Parrish MD - 04/15/2009 FOLLOW UP,70729/GROWTH/UTERINE SIZE/DATES MISMATCH Please refer to the separate [facility] report. Contact Maternal Medicine. Magda Tejada MD IMG [place] ORDERABLE S documented in this encounter Visit Diagnoses Not on filedocumented in this encounter
--- OUTSIDE RECORDS SUMMARY | 2024-07-12 18:09 | XMS_ITS | Encounter Summary ---
Author Organization [facility] Address [address] [place] [address] Care Team Providers Care Medical Technologist Hematology Name Role Phone Unavailable Primary Care Provider Unavailabl e Encounter Details Date Type Department Care Team (Latest Contact Info) Description 06/01/2008 15:43 EDT Hospital Encounter [address] [address] Shanique Eagle MD [address] [phone] Discharge Disposition: Auto Discharge Social History Tobacco [...] [facility] Rheumatology & Immunology - [address] 846331 Micaela Hoff MD [address] [place] [address], Level 5 [place] [phone] documented as of this encounter Visit Diagnoses Not on filedocumented in this encounter
--- OUTSIDE RECORDS SUMMARY | 2024-07-12 18:09 | XMS_ITS | Encounter Summary ---
Author Organization [facility] Address [address] [place] [address] Care Team Providers Care Graduate Studies Dean Name Role Phone Unavailable Primary Care Provider Unavailabl e Encounter Details Date Type Department Care Team (Latest Contact Info) Description 11/29/2007 15:47 EST Hospital Encounter [address] [address] Linda Bustillos MD Discharge Disposition: Auto Discharge [...] Description 12/29/2024 10:20 EST Office Visit [facility] Rheumatology & Immunology - [address] 837[address] Micaela Hoff MD [address] [place] [address], Level 5 [place] [phone] documented as of this encounter Procedures Procedure Name Priority Date/Time Associated Diagnosis Comments USP CERVICAL LENGTH 11/29/2007 1 7:46 EST documented in this encounter Results * USP CERVICAL LENGTH (11/29/2007 17:46 EST) Anatomical Region Laterality Modality Other 11/29/2007 17:4 6 EST Narrative 04/23/2009 3:50 EDT CERVICAL LENGTH 12[address], H/O SEPTUM W/REPAIR, H/O 20 WK LOSS Please refer to the separate [facility] report. ??Contact Maternal Medicine. Procedure Note Makeda Lucas MD - 04/23/2009 CERVICAL LENGTH 83381, H/O SEPTUM W/REPAIR, H/O 20 WK LOSS Please refer to the separate [facility] report. Contact Maternal Medicine. Magda Tejada MD IMG USP ORDERABLE S documented in this encounter Visit Diagnoses Not on filedocumented in this encounter
--- OUTSIDE RECORDS SUMMARY | 2024-07-12 18:09 | XMS_ITS | Encounter Summary ---
Author Organization [facility] Address [address] [place] [address] Care Team Providers Care Oven Worker Name Role Phone Unavailable Primary Care Provider Unavailabl e Encounter Details Date Type Department Care Team (Latest Contact Info) Description 03/13/2008 15:17 EDT Hospital Encounter [address] [address] Linda Bustillos MD Discharge Disposition: Auto Discharge [...] [facility] Rheumatology & Immunology - [facility] [address] [place], [place] [address] Micaela Hoff MD 111 [facility], [address] [place] [address] documented as of this encounter Visit Diagnoses Not on filedocumented in this encounter
--- OUTSIDE RECORDS SUMMARY | 2024-07-12 18:09 | XMS_ITS | Encounter Summary ---
Author Organization [facility] Address [address] [place] [address] Care Team Providers Care Pressure Tester Operator Name Role Phone Unavailable Primary Care Provider Unavailabl e Encounter Details Date Type Department Care Team (Late st Contact Info) Description 02/08/2008 15:13 EDT Hospital Encounter [address] [address] Gracia Correa MD [address] [place] [address] 4 [place] [phone] Discharge Disposition: Auto Discharge Social History Tobacco [...] 12/29/2024 10:20 EST Office Visit [facility] Rheumatology & Immunology [address] [address]94221 Micaela Hoff MD [address] [place] [address] 5 [place] [phone] documented as of this encounter Visit Diagnoses Not on filedocumented in this encounter
--- OUTSIDE RECORDS SUMMARY | 2024-07-12 18:09 | XMS_ITS | Encounter Summary ---
Author Organization [facility] Address [address] [place] [address] Care Team Providers Care Senior Statistical Programmer Name Role Phone Unavailable Primary Care Provider Unavailabl e Encounter Details Date Type Department Care Team (Late st Contact Info) Description 10/31/2007 Office Visit [facility] - [facility] conversion [address] [place] [address] Katharina Corey, PA [address] [place] [address] Social History Tobacco Use Types Packs/Day Years [...] (unable to quantify since bleeding began just sloop captain, pt noted moderate amount of blood [...] The patient has had care by an plant general manager. The patient has had problems with previous [...] sensory deficit. PROGRESS AND PROCEDURES E.D. Course: dye boarding machine operator feels pt is ok for d/c with f/u with obgyn. Pt agrees. Pelvic exam done by dye boarding machine operator resident.. Consult obtained from OB-COMPLIANCE VICE PRESIDENT. Case discussed. Will see patient in the ED today. Consultation performed in ED. Patient/family counseled. EDAttending on duty and available for supervision: Heidy Paul. Disposition: Condition: good. Discharged home. CLINICAL IMPRESSION Mild vaginal bleeding. Second trimester . INSTRUCTIONS Drink plenty of fluids. Your Current Medications: Your current home medications have been reviewed by the Emergency Department physician purchasing assistant. No changes in your current home medications are recommended at this time. Continue taking the following medications: lexapro vitamins. OTC Medications: Acetaminophen (available over the counter): take according tolabel instructions. Follow-up: Follow up with an plant general manager as scheduled. Follow-up: LIZZETH CLAYTON MD, FIRE WATCHMAN, , [address] [facility], [facility] [address], [address]. Follow up as scheduled. Understanding of the discharge instructions verbalized by patient. (Electronically signed by AUSTIN Maddox 10/31/2007 19:30) TERI Ford VisitID: [id number] Date: 10/31/2007 10/31/2007 9:42 DEVIN REFERRING PT TO FIRE WATCHMAN FOR ABDOMINAL CRAMPS AND VAGINAL BLEEDING, 15 [...] bleeding and pressure. Pt sent here by COMPLIANCE VICE PRESIDENT MD.). Treatment PROCUREMENT BUYER: None. PAST HX: Negative. Currently : 15 weeks. SOCIAL HX: Nonsmoker. No alcohol use. No report of abuse. Arrived by private vehicle. Historian: patient. --1019 Kelle Prescott R.N.. DISPOSITION / DISCHARGE The patient was discharged home and accompanied by biofuels product development manager. The patient left the Emergency Department ambulatory anda private vehicle. Drive Away Driver driving. --1138 Sis Rg R.N.. Kelle Rg R.N. Locked/Released at 10/31/2007 12:52 by Kelle McFaul, R.N. documented in this encounter Plan of Treatment Upcoming Encounters Date Type Department Care Team (Late st Contact Info) Description 12/29/2024 10:20 EST Office Visit [facility] Rheumatology & Immunology - [address] [address] Micaela Hoff MD 111 [facility], Level 5 [place] [address] documented as of this encounter Visit Diagnoses Not on filedocumented in this encounter
--- OUTSIDE RECORDS SUMMARY | 2024-07-12 18:09 | XMS_ITS | Encounter Summary ---
Author Organization [facility] Address [address] [place] [address] Care Team Providers Care Key Cutter Name Role Phone Unavailable Primary Care Provider Unavailabl e Encounter Details Date Type Department Care Team (Late st Contact Info) Description 09/03/2007 Before PRISM Converted Visit (Maple) [facility] - Maple conversion [address] [place] [address] Magda Tejada MD [address] [place] [address] Social History Tobacco Use Types Packs/Day Years Used Date Smoking Tobacco: Never Assessed Sex and Gender Information Value Date Recorded Sex Assigned at Not on file Gender Identity Not on file Sexual Orientation Not on file documented as of this encounter Plan of Treatment Upcoming Encounters Date Type Department Care Team (Late st Contact Info) Description 12/29/2024 10:20 EST Office Visit [facility] Rheumatology & Immunology - [facility] [address] [place] [address] Micaela Hoff MD 111 [facility], Level [address] [place] [phone] documented as of this encounter Visit Diagnoses [...] use. 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 ALLERGIES No known drug allergies. FAMILY HISTORY No mental retardation. No defects. CORE FINISHER HISTORY She does have a history of [...] Normal external female genitalia with normal [place]th[place], [place], and Rony glands. The cervix is noted to be very posterior and appearswithout lesions. Gonorrhea and chlamydia cultures were performed as well as Pap smear. The cervix on bimanual examination is noted to be closed with the posterior lip approximately 2 cm and the anterior lip approximately 1.5 cm in length.The uterine size is approximately 6-week size. ASSESSMENT AND PLAN Yrkdnz-akh-hdjz-old G2, P0-1-0-0 with a history of delivery [...] Magda Tejada MD - harlan Job ID: [id number] Doc ID: [id number] cc: documented in this encounter
--- OUTSIDE RECORDS SUMMARY | 2024-07-12 18:09 | XMS_ITS | Encounter Summary ---
Author Organization [facility] Address [address] [place] [address] Care Team Providers Care Groundwater Monitoring Technician Name Role Phone Unavailable Primary Care Provider Unavailabl e Encounter Details Date Type Department Care Team (Latest Contact Info) Description 01/28/2008 18:00 EDT Hospital Encounter [facility] Unit [address] [place] [address] Linda Bustillos MD Discharge Disposition: Home or [...] [facility] Rheumatology & Immunology - [facility] [address] [place], [place] [address] Micaela Hoff MD 111 [facility], Level [address] [place] [phone] documented as of this encounter Visit Diagnoses Not on filedocumented in this encounter
--- OUTSIDE RECORDS SUMMARY | 2024-07-12 18:09 | XMS_ITS | Encounter Summary ---
Author Organization [facility] Address [address] [place] [address] Care Team Providers Care Bender Machine Operator Name Role Phone Unavailable Primary Care Provider Unavailabl e Encounter Details Date Type Department Care Team (Latest Contact Info) Description 04/17/2008 15:44 EDT Hospital Encounter [facility] [address] [place] [address] Linda Bustillos MD Discharge Disposition: Auto Discharge [...] [facility] Rheumatology & Immunology - [facility] [address] [place], [place] [address] Micaela Hoff MD 111 [facility], Level [address] [place] [address] documented as of this encounter Visit Diagnoses Not on filedocumented in this encounter
--- OUTSIDE RECORDS SUMMARY | 2024-07-12 18:09 | XMS_ITS | Encounter Summary ---
Author Organization [facility] Address [address] [place] [address] Care Team Providers Care Home Health Speech Therapist Name Role Phone Unavailable Primary Care Provider Unavailabl e Encounter Details Date Type Department Care Team (Latest Contact Info) Description 04/20/2008 19:02 EDT - 04/23/2008 11:59 EDT Hospital Encounter [facility] Mother/Baby Unit [address] [place], [place] [address] Jameson Logan [address] [address] Linda Bustillos MD Discharge Disposition: [...] Office Visit [facility] Rheumatology & Immunology - [facility] [address] [place], [place] [phone] Micaela Hoff MD 111 [facility], Level 5 [place] [phone] documented as of this encounter Procedures Procedure [...] LAB Sample Type ARTERIAL Cord [place]ESS [place] shirt sorter ID [id number] Test performed by Chemistry [facility] 04/21/2008 8:25 EDT 04/21/2008 8:30 EDT Newton Lucas MD CHEMISTRY & BLOOD GA S ORDERABLES [facility] [address] [place] [address] * (ABNORMAL) BLOOD GAS, G3 ISTAT (04/21/2008 [...] Sample Type Venous specimen. Cord BURGESS MOISÉS shirt sorter ID [id number] J[facility] T[facility]ER[facility] 04/21/2008 8:10 EDT 04/21/2008 8:59 EDT Newton Lucas MD CHEMISTRY & BLOOD GA S ORDERABLES [facility] [address] [place] [address] * SURGICAL PATHOLOGY (04/21/2008 0:00 EDT) Pathology Report: SURGICAL PATHOLOGY REPORT Reports generated via electronic interface contain original data; however they are lacking the format of the original report. Caution should be taken when reading/interpretin g unformatted reports. Name: ? TERI CROWE ? Accession #: ? [id number] ? : ? 1980 (Age: 28) ??F [...] spongy deep red parenchyma devoid of lesion. ??Engraver Picture sections are submitted as follows: BLOCK BOND A1 ?Engraver Picture proximal and distal umbilical cord A2 ?Membrane rolls to include focal green discoloration A3, A4 ?Full thickness central placenta (A. Natividad)/mpl End of Report [facility] 04/21/2008 04/21/2008 9:4 9 EDT Jameson Logan PATHOLOGY ORDERABLES [facility] [address] [place] [address] * (ABNORMAL) HEMAGRAM (04/20/2008 23:35 EDT) WBC [...] PF4 ORD ERABLES [facility] [address] [place] [address] documented in this encounter Visit Diagnoses Not on filedocumented in this encounter
--- OUTSIDE RECORDS SUMMARY | 2024-07-12 18:09 | XMS_ITS | Encounter Summary ---
Author Organization [facility] Address [address] [place] [address] Care Team Providers Care Needle Setter Name Role Phone Unavailable Primary Care Provider Unavailabl e Encounter Details Date Type Department Care Team (Latest Contact Info) Description 01/06/2008 15:48 EST Hospital Encounter [address] [address] Kenton Parrish MD Discharge Disposition: Auto Discharge [...] [facility] Rhe[facility]ology [facility] Immunology - [address] [address] Micaela Hoff MD 111 [facility], Level [address] [place] [phone] documented as of this encounter Visit Diagnoses Not on filedocumented in this encounter
--- OUTSIDE RECORDS SUMMARY | 2024-07-12 18:09 | XMS_ITS | Encounter Summary ---
Author Organization [facility] Address [address] [place] [address] Care Team Providers Care Machine Former Name Role Phone Unavailable Primary Care Provider Unavailabl e Encounter Details Date Type Department Care Team (Latest Contact Info) Description 02/18/2006 14:59 EDT Hospital Encounter [facility] - Maple conversion [address] [place] [address] Marcelle Harrison MD [address] [place] [address] Discharge Disposition: Auto Discharge Social History Tobacco [...] [facility] Rheumatology & Immunology - [facility] [address] [place], [place] [address] Micaela Hoff MD 111 [facility], Level [address] [place] [address] documented as of this encounter Visit Diagnoses Not on filedocumented in this encounter
--- OUTSIDE RECORDS SUMMARY | 2024-07-12 18:09 | XMS_ITS | Encounter Summary ---
Author Organization [facility] Address [address] [place] [address] Care Team Providers Care Manager Competitive Intelligence Name Role Phone Ladonna Maurer Primary Care Provider Yair Dow MD Primary Care Provider [phone] Unknown, Provider Primary Care Provider [phone] Ladonna Maurer Primary Care Provider [phone] Cara Arteaga MD Primary Care Provider Conor Angel MD Primary Care Provider [phone] None, Provider Primary Care Provider Kaylynn Pizarro MD Primary Care Provider [phone] Encounter Details Date Type Department Care Team (Late st Contact Info) Description 08/02/2010 Documentation Visit [facility] Bariatric Surgery - [place] [address] [place], [place] [phone] [address] Social History Tobacco Use [...] 12/29/2024 10:20 EST Office Visit [facility] Rheumatology & Immunology - [address] [address] Micaela Hoff MD 111 [facility], [address] [place] [phone] documented as of this encounter Visit Diagnoses Not on filedocumented in this encounter Additional Health Concerns Infection Onset Date Last Indicated Resolved Time MRSA 10/20/2011 10/20/2011 documented as of this encounter Care Teams Manager Competitive Intelligence Relationship Specialty Start Date End Date Ladonna Maurer PA [address] [place] [address] PCP - General 05/20/10 06/02/11 Yair Dow MD [address] [place] [address] [phone] PCP - General 06/03/11 03/08/12 Unknown, Provider, PCP - General 03/09/12 05/11/12 Ladonna Maurer PA [address] [place] [address] PCP - General 05/12/12 01/24/13 Cara Arteaga MD [address] [place] [address] PCP - General 01/25/13 02/06/14 Conor Angel MD [address] [place] [phone] PCP - General 02/07/14 06/08/14 None, Provider PCP - General 06/09/14 03/01/15 Kaylynn Gimenez MD [address] [place] [phone] PCP - General 03/02/15 documented as of this encounter
--- OUTSIDE RECORDS SUMMARY | 2024-07-12 18:09 | XMS_ITS | Encounter Summary ---
Author Organization [facility] Address [address] [place] [address] Care Team Providers Care Library Sales Consultant Name Role Phone Unavailable Primary Care Provider Unavailabl e Encounter Details Date Type Department Care Team (Late st Contact Info) Description 06/08/2008 13:53 EDT Hospital Encounter [address] [address] Daily, [place] [address] Social History Tobacco Use Types Packs/Day Years [...] [facility] Rheumatology & Immunology - [address] [address] Micaela Hoff MD 111 [facility], Level [address] [place] [address] documented as of this encounter Procedures Procedure [...] ? TERI LAKE ? Accession #: ? [id number] ? : ? 1980 (Age: 28) ??F [...] MD PATHOLOGY HAIM PARKS Performing Organization Address City/State/[facility] Co de Phone Number [facility] [address] [place] [address] documented in this encounter Visit Diagnoses Not on filedocumented in this encounter Additional Health Concerns Infection Onset Date Last Indicated Resolved Time MRSA 10/20/2011 10/20/2011 documented as of this encounter
--- OUTSIDE RECORDS SUMMARY | 2024-07-12 18:09 | XMS_ITS | Encounter Summary ---
Author Organization [facility] Address [address] [place] [address] Care Team Providers Care C Consultant Name Role Phone Unavailable Primary Care Provider Unavailabl e Encounter Details Date Type Department Care Team (Latest Contact Info) Description 04/09/2008 6:52 EDT - 04/09/2008 11:59 EDT Hospital Encounter [facility] Birthing Center Unit [address] [place] [address] Linda Bustillos MD Discharge Disposition: Home or [...] [facility] - [facility] [address] [place], [place] [address] Micaela Hoff MD 111 [facility], Level [address] [place] [address] documented as of this encounter [...] MD URINALYSIS ORDERABLE S Performing Organization Address City/[facility] Co de Phone Number [facility] [address] [place] [address] * (ABNORMAL) URINALYSIS (04/09/2008 7:55 EDT) Color, UA Yellow [facility] Clarity, UA Clear [facility] Glucose, UA Norm NORM [facility] Bilirubin, UA Neg NEG [facility] Ketones, UA Neg NEG [facility] Specific [place], Urine 1.015 1.005 - 1.02 [facility] [...] URINALYSIS ORDERABLE S [facility] [address] [place] [address] documented in this encounter Visit Diagnoses Not on filedocumented in this encounter
--- OUTSIDE RECORDS SUMMARY | 2024-07-12 18:09 | XMS_ITS | Encounter Summary ---
Author Organization [facility] Address [address] [place] [address] Care Team Providers Care Passenger Attendant Name Role Phone Unavailable Primary Care Provider Unavailabl e Encounter Details Date Type Department Care Team (Late st Contact Info) Description 12/14/2005 Office Visit [facility] - Maple conversion [address] [place] [address] Stephany Quintanilla MD [address] [place] [address] Social History Tobacco Use Types Packs/Day Years Used Date Smoking Tobacco: Never Assessed Sex and Gender Information Value Date Recorded Sex Assigned at Not on file Gender Identity Not on file Sexual Orientation Not on file documented as of this encounter Progress Notes * German, Conv Pie Dough Roller - 01/02/20102026 EST Department - Physician Summary [...] back pain, flank pain or fever. Treatment GRINDER CHIPPER: None. PAST HX: Negative. SOCIAL HX: Nonsmoker. [...] Patient verbalized understanding. Written instructions provided in Welsh. The patient was discharged home and unaccompanied [...] [facility] [place] [address] Micaela Hoff MD 111 [facility], Level [address] [place] [address] documented as of this encounter Visit Diagnoses Not on filedocumented in this encounter
--- OUTSIDE RECORDS SUMMARY | 2024-07-12 18:09 | XMS_ITS | Encounter Summary ---
Author Organization [facility] Address [address] [place] [address] Care Team Providers Care Milling Operator Name Role Phone Unavailable Primary Care Provider Unavailabl e Encounter Details Date Type Department Care Team (Latest Contact Info) Description 02/11/2006 13:30 EDT Hospital Encounter [facility] - Maple conversion [address] [place] [address] Stephany Payne MD [address] [place] [phone] Robin Pena MD [address] [place] [address] Discharge Disposition: Auto Discharge Social History [...] [facility] - [address] [address] Micaela Hoff MD 111 [facility], [facility] 5 [place] [phone] documented as of this encounter Procedures Procedure [...] AN D SEROLOGY ORDERABLES Performing Organization Address [facility] de Phone Number [facility] [address] [place] [address] * HIV ANTIBODY (YONATHAN) (02/11/2006 15:21 EDT) HIV 1/2 Antibody NONREACT. NR [facility] 02/11/2006 15:2 1 EDT 02/11/2006 20:14 EDT Robin Pena MD IMMUNOLOGY AN D SEROLOGY ORDERABLES Performing Organization Address [facility] de Phone Number [facility] [address] [place] [address] * HEPATITIS C ANTIBODY (02/11/2006 15:21 EDT) Hepatitis C Ab Neg [facility] 02/11/2006 15:2 1 EDT 02/11/2006 20:14 EDT Robin Pena MD CHEMISTRY & B LOOD GAS ORDERABLES Performing Organization Address [facility] Co de Phone Number [facility] [address] [place] [address] * N. GONORRHOEAE AMPLIFIED PROBE (02/11/2006 15:21 EDT) Result No Neisseria gonorrhoeae DNA detected by tire mold engraver mediated amplification. [facility] Report Status Final [id number] [facility] Specimen Description Cervix [facility] 02/11/2006 15:2 1 EDT 02/12/2006 7:00 EDT Robin Pena MD MICROBIOLOGY - GENERAL ORDERABLES Performing Organization Address [facility] de Phone Number [facility] [address] [place] [address] * CHLAMYDIA TRACHOMATIS AMPLIFIED PROBE (02/11/2006 15:21 EDT) Specimen Description Cervix [facility] Result No Chlamydia trachomatis DNA detected by tire mold engraver mediated amplification. [facility] Report Status Final [id number] [facility] 02/11/2006 15:2 1 EDT 02/12/2006 7:00 EDT Robin Pena MD MICROBIOLOGY - GENERAL ORDERABLES Performing Organization Address [facility] Co de Phone Number [facility] [address] [place] [address] documented in this encounter Visit Diagnoses Not on filedocumented in this encounter
--- OUTSIDE RECORDS SUMMARY | 2024-07-12 18:09 | XMS_ITS | Encounter Summary ---
Author Organization [facility] Address [address] [place] [address] Care Team Providers Care Post Closing Specialist Name Role Phone Unavailable Primary Care Provider Unavailabl e Encounter Details Date Type Department Care Team (Late st Contact Info) Description 02/23/2006 Office Visit [facility] - Maple conversion [address] [place] [address] Nurse, Emergency Room, Social History Tobacco Use Types Packs/Day Years Used Date Smoking Tobacco: Never Assessed Sex and Gender Information Value Date Recorded Sex Assigned at Not on file Gender Identity Not on file Sexual Orientation Not on file documented as of this encounter Progress Notes * Vu Porter Clinical Team Manager - 12/26/2009 1946 EST Department - Physician Summary Registration Date/Time: 02/23/2006 17:24 Addenda for TERI LAKE VisitID: [id number] Date: 02/23/2006 02/24/2006 9:04 attempted call back [...] R.N. Allergies No known drug allergies. --1729 eCcelia Dalton R.N. History Chief Complaint: ( cough, [...] [facility] Rheumatology & Immunology - [address] [address] Miceala Hoff MD [address] [place] [address], [address] [place] [address] documented as of this encounter Visit Diagnoses Not on filedocumented in this encounter
--- OUTSIDE RECORDS SUMMARY | 2024-07-12 18:09 | XMS_ITS | Encounter Summary ---
Author Organization [facility] Address [address] [place] [address] Care Team Providers Care Linter Tender Name Role Phone Unavailable Primary Care Provider Unavailabl e Encounter Details Date Type Department Care Team (Late st Contact Info) Description 01/11/2008 13:52 EDT Hospital Encounter [address] [address] Makeda Lucas MD [address] [place] [address] 4 [place] [phone] Discharge Disposition: Auto Discharge Social History Tobacco [...] [facility] Rheumatology & Immunology [address] [phone] Micaela Hoff MD [address] [place] [address] 5 [place] [phone] documented as of this encounter Visit Diagnoses Not on filedocumented in this encounter
--- OUTSIDE RECORDS SUMMARY | 2024-07-12 18:09 | XMS_ITS | Encounter Summary ---
Author Organization [facility] Address [address] [place] [address] Care Team Providers Care Imaging Tech Name Role Phone Unavailable Primary Care Provider Unavailabl e Encounter Details Date Type Department Care Team (Late st Contact Info) Description 01/25/2008 15:28 EDT Hospital Encounter [address] [phone] Makeda Lucas MD [address] [place] [address], [facility] 4 [place] [phone] Social History Tobacco Use Types Packs/Day Years [...] [facility] Rheumatology & Immunology [address] [phone] Micaela Hoff MD [address] [place] [address], [facility] 5 [place] [address] documented as of this encounter Visit Diagnoses Not on filedocumented in this encounter Additional Health Concerns Infection Onset Date Last Indicated Resolved Time MRSA 10/20/2011 10/20/2011 documented as of this encounter
--- OUTSIDE RECORDS SUMMARY | 2024-07-12 18:09 | XMS_ITS | Encounter Summary ---
Author Organization [facility] Address [address] [place] [address] Care Team Providers Care Train Control Technician Name Role Phone Unavailable Primary Care Provider Unavailabl e Encounter Details Date Type Department Care Team (Late st Contact Info) Description 04/06/2006 10:30 EDT Hospital Encounter [facility] - Maple conversion [address] [place], [place] [address] Justus Bond MD [address] [place] [address] [place] [phone] Social History Tobacco Use Types Packs/Day Years [...] Visit [facility] Rheumatology & Immunology - [facility] [address] [place], [place] [phone] Micaela Hoff MD 111 [facility], Level [address] [place] [phone] documented as of this encounter Visit Diagnoses Not on filedocumented in this encounter Additional Health Concerns Infection Onset Date Last Indicated Resolved Time MRSA 10/20/2011 10/20/2011 documented as of this encounter
--- OUTSIDE RECORDS SUMMARY | 2024-07-12 18:09 | XMS_ITS | Encounter Summary ---
Author Organization [facility] Address [address] [place] [address] Care Team Providers Care Under Trimmer Name Role Phone Unavailable Primary Care Provider Unavailabl e Encounter Details Date Type Department Care Team (Late st Contact Info) Description 12/14/2007 13:42 EST Hospital Encounter [address] [address] Magda Tejada MD [address] [place] [address] Makeda Lucas MD [address] [place] [address], [address] [place] [address] Social History Tobacco Use Types Packs/Day Years [...] [facility] Rheumatology & Immunology - [address] [address] Micaela Hoff MD 111 [facility], [address] [place] [address] documented as of this encounter Procedures Procedure Name Priority Date/Time Associated Diagnosis Comments SENIOR CARE DETAILED 12/14/2007 15:59 EST documented in this encounter Results * SENIOR CARE DETAILED (12/14/2007 15:59 EST) Anatomical Region Laterality Modality Other 12/14/2007 15:5 9 EST Narrative 04/23/2009 3:55 EDT DETAILED,[id number] AND CERVICAL LENGTH/1ST AND 2ND TRIMESTER BLEEDING,H/O SEPTUM WITH REPAIR,H/O 20 WK LOSS Please refer to the separate [facility] report. ??Contact Maternal Medicine. Procedure Note Shanique Eagle MD - 04/23/2009 DETAILED,[id number] AND CERVICAL LENGTH/1ST AND 2ND TRIMESTER BLEEDING,H/O SEPTUM WITH REPAIR,H/O 20 WK LOSS Please refer to the separate [facility] report. Contact Maternal Medicine. Magda Tejada MD [facility]ABLE S documented in this encounter Visit Diagnoses Not on filedocumented in this encounter Additional Health Concerns Infection Onset Date Last Indicated Resolved Time MRSA 10/20/2011 10/20/2011 documented as of this encounter
--- OUTSIDE RECORDS SUMMARY | 2024-07-12 18:09 | XMS_ITS | Encounter Summary ---
Author Organization [facility] Address [address] [place] [address] Care Team Providers Care Aquatics Specialist Name Role Phone Unavailable Primary Care Provider Unavailabl e Encounter Details Date Type Department Care Team (Late st Contact Info) Description 04/29/2006 14:54 EDT Hospital Encounter [facility] - Maple conversion [address] [place], [place] [address] Justus Bond MD [address] [place] [address] [place] [phone] Social History Tobacco Use Types Packs/Day Years [...] [facility] [address] [place], [place] [phone] Micaela Hoff MD 111 [facility], Level 5 [place] [phone] documented as of this encounter Visit Diagnoses Not on filedocumented in this encounter Additional Health Concerns Infection Onset Date Last Indicated Resolved Time MRSA 10/20/2011 10/20/2011 documented as of this encounter
--- OUTSIDE RECORDS SUMMARY | 2024-07-12 18:09 | XMS_ITS | Encounter Summary ---
Author Organization [facility] Address [address] [place] [address] Care Team Providers Care Business Applications Manager Name Role Phone Unavailable Primary Care Provider Unavailabl e Encounter Details Date Type Department Care Team (Late st Contact Info) Description 03/28/2008 15:53 EDT Hospital Encounter [address] [address] Makeda Lucas MD [address] [place] [address] 4 [place] [phone] Discharge Disposition: Auto Discharge Social History Tobacco [...] [facility] Rheumatology & Immunology [address] 7425[address] Micaela Hoff MD [address] [place] [address] 5 [place] [phone] documented as of this encounter Visit Diagnoses Not on filedocumented in this encounter
--- OUTSIDE RECORDS SUMMARY | 2024-07-12 18:09 | XMS_ITS | Encounter Summary ---
Author Organization [facility] Address [address] [place] [address] Care Team Providers Care Time Study Engineer Name Role Phone Unavailable Primary Care Provider Unavailabl e Encounter Details Date Type Department Care Team (Latest Contact Info) Description 04/03/2008 14:22 EDT Hospital Encounter [address] [address] Linda Bustillos MD Discharge Disposition: Auto Discharge [...] [facility] Rheumatology & Immunology - [facility] [address] [place], [place] [address] Micaela Hoff MD 111 [facility], Level [address] [place] [address] documented as of this encounter Visit Diagnoses Not on filedocumented in this encounter
--- OUTSIDE RECORDS SUMMARY | 2024-07-12 18:09 | XMS_ITS | Encounter Summary ---
Author Organization [facility] Address [address] [place] [address] Care Team Providers Care Lieutenant Fire Fighter Name Role Phone Unavailable Primary Care Provider Unavailabl e Encounter Details Date Type Department Care Team (Late st Contact Info) Description 11/16/2007 12:59 EST Hospital Encounter [address] [address] Magda Tejdaa MD [address] [place] [address] Makeda Lucas MD [address] [place] [address], [facility] 4 [place] [phone] Discharge Disposition: Auto Discharge Social History Tobacco [...] Info) Description 12/29/2024 10:20 EST Office Visit [facility] Rheumatology & Immunology [address] [address] Micaela Hoff MD [address] [place] [address] 5 [place] [phone] documented as of this encounter Procedures Procedure Name Priority Date/Time Associated Diagnosis Comments [facility] LIMITED EXAM 11/16/2007 14:0 1 EST documented in this encounter Results * [facility] LIMITED EXAM (11/16/2007 14:01 EST) Anatomical Region Laterality Modality Other 11/16/2007 14:0 1 EST Narrative 04/23/2009 3:47 EDT LIMITED,[id number] AND CERVICAL LENGTH/EVAL FOR 1ST AND 2ND TRIMESTER VB Please refer to the separate [facility] report. ??Contact Maternal Medicine. Procedure Note Robb Nam MD - 04/23/2009 LIMITED,[id number] AND CERVICAL LENGTH/EVAL FOR 1ST AND 2ND TRIMESTER VB Please refer to the separate [facility] report. Contact Maternal Medicine. Magda Tejada MD IM[facility] ORDERABLE S documented in this encounter Visit Diagnoses Not on filedocumented in this encounter
--- OUTSIDE RECORDS SUMMARY | 2024-07-12 18:09 | XMS_ITS | Encounter Summary ---
Author Organization [facility] Address [address] [place] [address] Care Team Providers Care Purchasing Expeditor Name Role Phone Unavailable Primary Care Provider Unavailabl e Encounter Details Date Type Department Care Team (Late st Contact Info) Description 06/15/2006 15:07 EDT Hospital Encounter [facility] - Maple conversion [address] [place] [address] Vlad Lucio MD Social History Tobacco Use [...] [facility] - [facility] [address] [place], [place] [address] Micaela Hoff MD 111 [facility], Level [address] [place] [phone] documented as of this encounter Procedures Procedure [...] LAB Chloride 104 96 - 110 mEq/L [facility] CO2 27 24 - 32 [...] OOD GAS ORDERABLES [facility] [address] [place] [address] * (ABNORMAL) HEMAGRAM AND DIFFERENTIAL (06/15/2006 16:00 [...] DNA PROBE ORDERABLES [facility] [address] [place] [address] documented in this encounter Visit Diagnoses Not on filedocumented in this encounter Additional Health Concerns Infection Onset Date Last Indicated Resolved Time MRSA 10/20/2011 10/20/2011 documented as of this encounter
--- OUTSIDE RECORDS SUMMARY | 2024-07-12 18:09 | XMS_ITS | Encounter Summary ---
Author Organization [facility] Address [address] [place] [address] Care Team Providers Care Integration Lead Name Role Phone Ladonna Maurer Primary Care Provider [phone] Encounter Details Date Type Department Care Team (Late st Contact Info) Description 12/14/2007 Results Only [facility] Obstetrics & Midwifery - [address] [phone] Makeda Lucas MD [address] [place] [address] 4 [place] [phone] Social History Tobacco Use Types Packs/Day Years [...] Visit [facility] Rheumatology & Immunology - [address] [phone] Micaela Hoff MD [address] [place] [address] 5 [place] [phone] documented as of this encounter Procedures Procedure [...] GA S ORDERABLES [facility] [address] [place] [address] documented in this encounter Visit Diagnoses Not on filedocumented in this encounter Care Teams Integration Lead Relationship Specialty Start Date End Date Ladonna Maurer PA [address] [place] [address] PCP - General 05/20/10 06/02/11 documented as of this encounter
--- OUTSIDE RECORDS SUMMARY | 2024-07-12 18:09 | XMS_ITS | Encounter Summary ---
Author Organization [facility] Address [address] [place] [address] Care Team Providers Care Installation Coordinator Name Role Phone Ladonna Maurer Primary Care Provider [phone] Encounter Details Date Type Department Care Team (Late st Contact Info) Description 01/25/2008 Results Only [facility] Obstetrics & Midwifery - [address] [phone] Makeda Lucas MD [address] [place] [address] 4 [place] [phone] Social History Tobacco Use Types Packs/Day Years [...] - [place] Rheumatology & Immunology - [address] [phone] Micaela Hoff MD [address] [place] [phone] documented as of this encounter Procedures Procedure Name Priority Date/Time Associated Diagnosis Comments GLUCOSE-1HR GESTATIONAL SCREEN Routine 01/25/2008 17:45 EDT COMPLETE BLOOD COUNT Routine 01/25/2008 17:45 EDT documented in this encounter Results * GLUCOSE-1HR GESTATIONAL SCREEN (01/25/2008 17:45 EDT) Pathologist [facility] Glucose-1hr Gest Scn 95 50 - 135 mg/dl [facility] Comment: A one hour glucose greater than or equal to 135 mg/dl should be further evaluated with a formal three hour glucose tolerance test. Glucose Dose 50 g [facility] 01/25/2008 17:4 5 EDT 01/25/2008 17:47 EDT Makeda Lucas MD PACKAGES & DNA PROBE ORDERABLES Performing Organization Address City/[facility]/ZIP Co de Phone Number [facility] [address] [place] [address] * (ABNORMAL) HEMAGRAM (01/25/2008 17:45 EDT) Pathologist [facility] WBC 9.82 4.0 - 12.4 K/cmm [...] & PF4 ORD ERABLES Performing Organization Address City/[facility]/ZIP Co de Phone Number [facility] [address] [place] [address] documented in this encounter Visit Diagnoses Not on filedocumented in this encounter Care Teams Installation Coordinator Relationship Specialty Start Date End Date Ladonna Maurer PA [address] [place] [address] PCP - General 05/20/10 06/02/11 documented as of this encounter
--- OUTSIDE RECORDS SUMMARY | 2024-07-12 18:09 | XMS_ITS | Encounter Summary ---
Author Organization [facility] Address [address] [place] [address] Care Team Providers Care Hearing Health Technician Name Role Phone Unavailable Primary Care Provider Unavailabl e Encounter Details Date Type Department Care Team (Latest Contact Info) Description 09/03/2007 13:55 EDT Hospital Encounter [address] [address] Shanique Eagle MD [address] [phone] Discharge Disposition: Auto Discharge Social History Tobacco [...] [facility] Rheumatology & Immunology - [address] [phone] Micaela Hoff MD [address] [place] [address], [address] [place] [phone] documented as of this encounter Procedures Procedure Name Priority Date/Time Associated Diagnosis Comments PARENTING SKILLS INSTRUCTOR US OB FIRST TRIMESTER TRANSVAGINAL 09/10/2007 13:09 EST documented in this encounter Results * PARENTING SKILLS INSTRUCTOR US OB FIRST TRIMESTER TRANSVAGINAL (09/10/2007 13:09 [...] findings. /harlan Magda Tejada MD IMG [facility] PARENTING SKILLS INSTRUCTOR ORDERABLE S documented in this encounter Visit Diagnoses Not on filedocumented in this encounter
--- OUTSIDE RECORDS SUMMARY | 2024-07-12 18:09 | XMS_ITS | Encounter Summary ---
Author Organization [facility] Address [address] [place] [address] Care Team Providers Care Commercial Escrow Assistant Name Role Phone Unavailable Primary Care Provider Unavailabl e Encounter Details Date Type Department Care Team (Latest Contact Info) Description 11/11/2007 13:46 EST Hospital Encounter [address] [address] Kenton Parrish MD Discharge Disposition: Auto Discharge [...] [facility] Rheumatology & Immunology - [address] [address] Micaela Hoff MD 111 [facility], Level 5 [place] [phone] documented as of this encounter Visit Diagnoses Not on filedocumented in this encounter
--- OUTSIDE RECORDS SUMMARY | 2024-07-12 18:09 | XMS_ITS | Encounter Summary ---
Author Organization [facility] Address [address] [place] [address] Care Team Providers Care Rn Staff Name Role Phone Ladonna Maurer Primary Care Provider Encounter Details Date Type Department Care Team (Late st Contact Info) Description 05/17/2007 Results Only [facility] - Maple conversion [address] [place] [address] Unknown, Provider, Social History Tobacco Use Types [...] [facility] Rheumatology & Immunology - [address] [address] Micaela Hoff MD [address] [facility], Level [address] [place] [phone] documented as of this encounter Procedures Procedure Name Priority Date/Time Associated Diagnosis Comments CHLAMYDIA/GC AMPLIFIED PROBE Routine 05/17/2007 10:30 EDT CYTOPATHOLOGY Routine 05/17/2007 0:00 EDT documented in this encounter Results * CHLAMYDIA/GC AMPLIFIED PROBE (05/17/2007 10:30 EDT) Specimen Description Cervix [facility] Result No Chlamydia trachomatis or Neisseria gonorrhoeae DNA detected by non garment sewing machine operator mediated amplification. [facility] Report Status Final [id number] [facility] 05/17/2007 10:3 0 EDT 05/18/2007 15:30 EDT Provider Unknown MD MICROBIOLOGY - GENER AL ORDERABLES [facility] [address] [place] [address] * CYTOPATHOLOGY (05/17/2007 0:00 EDT) Pathology Report: CYTOPATHOLOGY REPORT Reports generated via electronic interface contain original data; however they are lacking the format of the original report. Caution should be taken when reading/interpreti ng unformatted reports. Name: ? TERI CROWE ? Accession #: ? [id number] : ? 1980 (Age: 27) ??F ?Collect Date: ? 05/17/2007 Location: ? [facility] ? Receive Date: ? 05/18/2007 Provider: ?MAYANK FLORENTINO MD Copy to: ? Specimen/Source: ?ThinPrep Pap Test, Cervix/Endocervix, processed on [employer] ThinPrep Imaging System, with manual evaluation Last [...] Mayank Florentino PATHOLOGY ORDERABLES Performing Organization Address City/State/[place] Co de Phone Number [facility] [address] [place] [address] documented in this encounter Visit Diagnoses Not on filedocumented in this encounter Care Teams Rn Staff Relationship Specialty Start Date End Date Ladonna Maurer PA [address] [place] [address] PCP - General 05/20/10 06/02/11 documented as of this encounter
--- OUTSIDE RECORDS SUMMARY | 2024-07-12 18:09 | XMS_ITS | Encounter Summary ---
Author Organization [facility] Address [address] [place] [address] Care Team Providers Care Entry Tech Name Role Phone Ladonna Maurer Primary Care Provider [phone] Encounter Details Date Type Department Care Team (Late st Contact Info) Description 02/11/2006 Results Only [facility] - Maple conversion [address] [place] [address] Robin Robb MD [address] [place] [phone] Social History Tobacco Use Types Packs/Day Years [...] [facility] Rheumatology & Immunology - [facility] [address] [place], [place] [address] Micaela Hoff MD 111 [facility], Level [address] [place] [address] documented as [...] ? TERI CROWE ? Accession #: ? [id number] : ? 1980 (Age: 25) ??F ?Collect Date: ? 02/11/2006 Location: ? [facility] ? Receive Date: ? 02/13/2006 Provider: ?TARIK ROBB MD Copy to: ? Specimen/Source: ?ThinPrep Pap Test, Cervix/Endocervix, processed on [employer] ThinPrep Imaging System, with manual evaluation Last [...] MD PATHOLOGY ORD ERABLES [facility] [address] [place] [address] documented in this encounter Visit Diagnoses Not on filedocumented in this encounter Care Teams Entry Tech Relationship Specialty Start Date End Date Ladonna Maurer PA [address] [place] [address] PCP - General 05/20/10 06/02/11 documented as of this encounter
--- OUTSIDE RECORDS SUMMARY | 2024-07-12 18:09 | XMS_ITS | Encounter Summary ---
Author Organization [facility] Address [address] [place] [address] Care Team Providers Care Testing Machine Operator Name Role Phone Unavailable Primary Care Provider Unavailabl e Encounter Details Date Type Department Care Team (Latest Contact Info) Description 02/23/2006 17:24 EDT Hospital Encounter [facility] Emergency Department - [address] [address]141 Emergency, MD Fede Discharge Disposition: Home or [...] [facility] Rheumatology & Immunology - [facility] [address] [place], [place] [address] Micaela Hoff MD 111 [facility], Level 5 [place] [phone] documented as of this encounter Visit Diagnoses Not on filedocumented in this encounter
--- OUTSIDE RECORDS SUMMARY | 2024-07-12 18:09 | XMS_ITS | Encounter Summary ---
Author Organization [facility] Address [address] [place] [address] Care Team Providers Care Heavy Duty Truck Mechanic Name Role Phone Ladonna Maurer Primary Care Provider Encounter Details Date Type Department Care Team (Late st Contact Info) Description 03/28/2008 Results Only [facility] Obstetrics & Midwifery - [address] [phone] Makeda Lucas MD [address] [place] [address] 4 [place] [address] Social History Tobacco Use Types [...] [facility] Rheumatology & Immunology - [address] [phone] Micaela Hoff MD [address] [place] [address] documented as of this encounter Procedures Procedure Name Priority Date/Time Associated Diagnosis Comments GROUP B STREP PCR Routine 03/28/2008 15: 56 EDT documented in this encounter Results * GROUP B STREPTOCOCCUS MOLECULAR DETECTION (03/28/2008 15:56 EDT) Specimen Description Vaginal and Rectal [facility] Result No Group B beta streptococcal DNA detected by PCR. [facility] Report Status Final [id number] [facility] 03/28/2008 15:5 6 EDT 03/28/2008 19:31 EDT Makeda Lucas MD MICROBIOLOGY - GENER AL ORDERABLES [facility] [address] [place] [address] documented in this encounter Visit Diagnoses Not on filedocumented in this encounter Care Teams Heavy Duty Truck Mechanic Relationship Specialty Start Date End Date Ladonna Maurer PA [address] [place] [address] PCP - General 05/20/10 06/02/11 documented as of this encounter
--- OUTSIDE RECORDS SUMMARY | 2024-07-12 18:09 | XMS_ITS | Encounter Summary ---
Author Organization [facility] Address [address] [place] [address] Care Team Providers Care Tools Developer Name Role Phone Unavailable Primary Care Provider Unavailabl e Encounter Details Date Type Department Care Team (Latest Contact Info) Description 11/04/2007 16:06 EST Hospital Encounter [address] [address] Kenton Parrish MD Discharge Disposition: Auto Discharge [...] 10:20 EST Office Visit [facility] Rheumatology & Immunology - [address] [address]281 Micaela Hoff MD 111 [facility], Level 5 [place] [phone] documented as of this encounter Visit Diagnoses Not on filedocumented in this encounter
--- OUTSIDE RECORDS SUMMARY | 2024-07-12 18:09 | XMS_ITS | Encounter Summary ---
Author Organization [facility] Address [address] [place] [address] Care Team Providers Care Bulk Folder Name Role Phone Unavailable Primary Care Provider Unavailabl e Encounter Details Date Type Department Care Team (Latest Contact Info) Description 10/07/2007 15:46 EST Hospital Encounter [address] [address] Kenton Parrish MD Discharge Disposition: Auto Discharge [...] [facility] Rheumatology & Immunology - [address] 909371 Micaela Hoff MD 111 [facility], Level [address] [place] [phone] documented as of this encounter Visit Diagnoses Not on filedocumented in this encounter
--- OUTSIDE RECORDS SUMMARY | 2024-07-12 18:09 | XMS_ITS | Encounter Summary ---
Author Organization [facility] Address [address] [place] [address] Care Team Providers Care Equipment Application Specialist Name Role Phone Unavailable Primary Care Provider Unavailabl e Encounter Details Date Type Department Care Team (Late st Contact Info) Description 04/10/2008 14:01 EDT Hospital Encounter [address] [address] Linda Bustillos MD Social History Tobacco Use [...] Info) Description 12/29/2024 10:20 EST Office Visit [facility] Rheumatology & Immunology - [address] [phone] Micaela Hoff MD [address] [place] [address], Level 5 [place] [phone] documented as of this encounter Visit Diagnoses Not on filedocumented in this encounter Additional Health Concerns Infection Onset Date Last Indicated Resolved Time MRSA 10/20/2011 10/20/2011 documented as of this encounter
--- OUTSIDE RECORDS SUMMARY | 2024-07-12 18:09 | XMS_ITS | Encounter Summary ---
Author Organization [facility] Address [address] [place] [address] Care Team Providers Care Long Wall Mining Machine Helper Name Role Phone Ladonna Maurer Primary Care Provider [phone] Encounter Details Date Type Department Care Team (Late st Contact Info) Description 09/03/2007 Results Only [facility] Obstetrics & Midwifery - [address] [phone] Shanique Eagle MD [address] [phone] Social History Tobacco Use Types Packs/Day Years [facility] - [address] [address] Micaela Hoff MD 111 [facility], Level [address] [place] [address] documented as of this encounter [...] growth [facility] Report Status Final [id number] [facility] 09/03/2007 15:4 9 EDT 09/03/2007 15:51 EDT Shanique Eagle MD MICROBIOLOGY - GENER AL ORDERABLES [facility] [address] [place] [address] * (ABNORMAL) PROFILE AND VARICELLA (09/03/2007 15:48 [...] % Basophils 0.4 0.2 - 1.4 % [facility] Neutrophils 5.32 2.20 - 8.85 K/cmm [facility] Lymphs 2.12 1.09 - 3.30 K/cmm [facility] Monocytes 0.67 0.1 - 0.8 K/cmm [facility] Eosinophils 0.15 0.03 - 0.61 K/cmm [facility] Basophils 0.03 0.01 - 0.11 K/cmm [facility] Type of Diff: Automated [facility] Hepatitis B Surface Ag Neg [facility] Syphilis Sero (RPR) NONREACT. NR Dils [facility] Rubella IgG Ab Antibody detected Assayed utilizing the Checki[employer] Immulite 2500. Values may vary with other methods. [facility] Varicella IgG Ab Antibody detected [facility] 09/03/2007 15:4 8 EDT 09/03/2007 15:50 EDT Shanique Eagle MD PACKAGES & DNA PROBE ORDERABLES Performing Organization Address City/[facility] Co de Phone Number [facility] [address] [place] [address] * CHLAMYDIA/GC AMPLIFIED PROBE (09/03/2007 15:11 EDT) Specimen Description Cervix [facility] Result No Chlamydia trachomatis or Neisseria gonorrhoeae DNA detected by shirt ironer mediated amplification. [facility] Report Status Final [id number] [facility] 09/03/2007 15:1 1 EDT 09/03/2007 16:27 EDT Shanique Eagle MD MICROBIOLOGY - GENER AL ORDERABLES Performing Organization Address City/[facility] Co de Phone Number [facility] [address] [place] [address] * CYTOPATHOLOGY (09/03/2007 0:00 EDT) Pathology Report: CYTOPATHOLOGY REPORT Reports generated via electronic interface contain original data; however they are lacking the format of the original report. Caution should be taken when reading/interpreti ng unformatted reports. Name: ? TERI CROWE ? Accession #: ? [id number] : ? 1980 (Age: 27) ??F ?Collect Date: ? 09/03/2007 Location: ? [facility] ? Receive Date: ? 09/06/2007 Provider: ?SHANIQUE EAGLE MD Copy to: ? Specimen/Source: ?ThinPrep Pap Test, Cervix/Endocervix, processed on [employer] ThinPrep Imaging System, with manual evaluation Last [...] Eagle MD PATHOLOGY ORDERABLES [facility] [address] [place] [address] documented in this encounter Visit Diagnoses Not on filedocumented in this encounter Care Teams Long Wall Mining Machine Helper Relationship Specialty Start Date End Date Ladonna Maurer PA [address] [place] [address] PCP - General 05/20/10 06/02/11 documented as of this encounter
--- OUTSIDE RECORDS SUMMARY | 2024-07-12 18:09 | XMS_ITS | Encounter Summary ---
Author Organization [facility] Address [address] [place] [address] Care Team Providers Care Ladies Suit Operator Name Role Phone Unavailable Primary Care Provider Unavailabl e Encounter Details Date Type Department Care Team (Late st Contact Info) Description 12/21/2007 14:27 EST Hospital Encounter [address] [address] Makeda Lucas MD [address] [place] [address] 4 [place] [phone] Discharge Disposition: Auto Discharge Social History Tobacco [...] [facility] Rheumatology & Immunology [address] [phone] Micaela Hoff MD [address] [place] [address] 5 [place] [phone] documented as of this encounter Procedures Procedure Name Priority Date/Time Associated Diagnosis Comments [facility] CERVICAL LENGTH 12/21/2007 1 6:15 EST documented in this encounter Results * [facility] CERVICAL LENGTH (12/21/2007 16:15 EST) Anatomical Region Laterality Modality Other 12/21/2007 16:1 5 EST Narrative 04/23/2009 4:28 EDT TRANSVAGINAL SCAN/CERVICAL LENGTH Please refer to the separate [facility] report. ??Contact Maternal Medicine. Procedure Note Shanique Eagle MD - 04/23/2009 TRANSVAGINAL SCAN/CERVICAL LENGTH Please refer to the separate [facility] report. Contact Maternal Medicine. Makeda Lucas MD [facility] S documented in this encounter Visit Diagnoses Not on filedocumented in this encounter
--- OUTSIDE RECORDS SUMMARY | 2024-07-12 18:09 | XMS_ITS | Encounter Summary ---
Author Organization [facility] Address [address] [place] [address] Care Team Providers Care Marketing Communications Assistant Name Role Phone Unavailable Primary Care Provider Unavailabl e Encounter Details Date Type Department Care Team (Late st Contact Info) Description 09/10/2007 14:50 EST Hospital Encounter [address] [address] Magda Tejada MD [address] [place] [phone] Social History Tobacco Use Types Packs/Day Years [...] [facility] Rhe[facility]ology [facility] Immunology - [address] 8264[address] Micaela Hoff MD 111 [facility], Level 5 [place] [phone] documented as of this encounter Procedures Procedure Name Priority Date/Time Associated Diagnosis Comments RESIDENTIAL VIABILITY 09/27/2007 13:44 EST documented in this encounter Results * RESIDENTIAL VIABILITY (09/27/2007 13:44 EST) Anatomical Region Laterality Modality Other 09/27/2007 13:4 4 EST Narrative 04/23/2009 2:43 EDT bleeding first trimester inc cervix Please refer to the separate [facility] report. ??Contact Maternal Medicine. Procedure Note Robb Nam MD - 04/23/2009 bleeding first trimester inc cervix Please refer to the separate [facility] report. Contact Maternal Medicine. Robb Nam MD IMG RESIDENTIAL ORDER HEATH documented in this encounter Visit Diagnoses Not on filedocumented in this encounter Additional Health Concerns Infection Onset Date Last Indicated Resolved Time MRSA 10/20/2011 10/20/2011 documented as of this encounter
--- OUTSIDE RECORDS SUMMARY | 2024-07-12 18:09 | XMS_ITS | Encounter Summary ---
Author Organization [facility] Address [address] [place] [address] Care Team Providers Care Lumber Estimator Name Role Phone Unavailable Primary Care Provider Unavailabl e Encounter Details Date Type Department Care Team (Late st Contact Info) Description 01/09/2005 9:39 EST - 01/09/2005 11:59 EST Hospital Encounter [facility] - Other [address] [place], [place] [address] [phone] Gustavo Smith MD [address] [phone] Discharge Disposition: Auto Discharge Social History Tobacco [...] [facility] Rheumatology & Immunology - [facility] [address] [place], [place] [phone] Micaela Hoff MD 111 [facility], Level [address] [place] [phone] documented as of this encounter Visit Diagnoses Not on filedocumented in this encounter
--- OUTSIDE RECORDS SUMMARY | 2024-07-12 18:10 | XMS_ITS | Encounter Summary ---
Author Organization [facility] Address [address] [place] [address] Care Team Providers Care Vehicle Calibration Engineer Name Role Phone Unavailable Primary Care Provider Unavailabl e Encounter Details Date Type Department Care Team (Latest Contact Info) Description 02/06/2004 15:21 EDT Hospital Encounter [facility] - Other [address] [place] [address] Marixa Barreto MD Discharge Disposition: Auto Discharge [...] Office Visit [facility] Rheumatology & Immunology - [facility] [address] [place], [place] [address] Micaela Hoff MD 111 [facility], Level [address] [place] [phone] documented as of this encounter Visit Diagnoses Not on filedocumented in this encounter
--- OUTSIDE RECORDS SUMMARY | 2024-07-12 18:10 | XMS_ITS | Encounter Summary ---
[place] [address] Care Team Providers Care Museum Curator Name Role Phone Anuja Cai APRN Primary Care Provider [phone] Reason for Referral * Consultation (Routine) - Closed Specialty Diagnoses / Procedures Referred By Ehsan t Referred To Contact Orthopaedics Diagnoses Disorder of bone R KNEE ACL TEAR AND OSTEOCHONDRAL LESION LATERAL FEMORAL CONDYLE Tabatha Carmen APRN [address] [place] [address] [facility] [address] [place] [phone] Referral ID Status Reason Start Date Expiration Date V isits Requested Visits Authorized [id number] Closed Consult, Test & Treat PCP Updated and/or Approved 02/03/2023 02/03/2024 6 6 Encounter Details Date Type Department Care Team (Late st Contact Info) Description 02/03/2023 Transcribe Orders eDH Incoming Referrals [phone] Tabatha Carmen APRN [address] [place] [id number] Disorder of bone Social History Tobacco Use [...] 12:00 PM EDT Office [place] [address] Britt Zurita MD [facility] [place] [address] Scheduled Referrals Name Type Priority Associated Diagnoses Order Schedule Referral to Orthopaedics Outpatient Referral Routine Disorder of bone Ordered: 02/03/2023 documented as of this encounter Visit Diagnoses Diagnosis Disorder of bone Disorder of bone and cartilage, unspecified documented in this encounter Care Teams Museum Curator Relationship Specialty Start Date End Date Anuja Cai APRN [address] [place] [address] PCP - General Internal Medicine 07/25/21 documented as of this encounter
--- OUTSIDE RECORDS SUMMARY | 2024-07-12 18:10 | XMS_ITS | Encounter Summary ---
Author Organization [facility] Address [address] [place] [address] Care Team Providers Care Disk Recoater Name Role Phone Unavailable Primary Care Provider Unavailabl e Encounter Details Date Type Department Care Team (Latest Contact Info) Description 06/20/2004 12:36 EDT Hospital Encounter [address] [address] Rehan Overton MD [address] [place] [phone] Discharge Disposition: Auto Discharge Social History Tobacco [...] Visit [facility] Rheumatology & Immunology [address] [phone] Micaela Hoff MD 111 [facility], Level [address] [place] [address] documented as of this encounter Procedures Procedure Name Priority Date/Time Associated Diagnosis Comments [facility] BARREL MARKER Routine 06/25/2004 17:30 EDT [place] HYSTEROSALPINGOGRAM Routine 4 14:58 EDT documented in this encounter Results * [facility] BARREL MARKER (06/25/2004 17:30 EDT) Anatomical Region Laterality Modality Other 06/25/2004 17:3 0 EDT Narrative 07/17/2009 9:37 EDT [facility] TRANSVAGINAL ULTRASOUND - 06/25/04 INDICATION: Bicornuate versus [...] Procedure Note Robin Garay MD - 07/17/2009 [facility] TRANSVAGINAL ULTRASOUND - 06/25/04 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
--- OUTSIDE RECORDS SUMMARY | 2024-07-12 18:10 | XMS_ITS | Encounter Summary ---
Author Organization [facility] Address [facility] [place] [address] Care Team Providers Care Design Tech Name Role Phone Anuja Cai APRN Primary Care Provider [phone] Encounter Details Date Type Department Care Team [...] PM EDT Office [place] [address] Britt Zurita MD [facility] [place] [address] documented as of this encounter Visit Diagnoses Not on filedocumented in this encounter Care Teams Design Tech Relationship Specialty Start Date End Date Anuja Cai APRN [address] [place], [place] [address] PCP - General Internal Medicine 07/25/21 documented as of this encounter
--- OUTSIDE RECORDS SUMMARY | 2024-07-12 18:10 | XMS_ITS | Encounter Summary ---
Author Organization [facility] Address [address] [place] [address] Care Team Providers Care Vocational Training Teacher Name Role Phone Unavailable Primary Care Provider Unavailabl e Encounter Details Date Type Department Care Team (Latest Contact Info) Description 09/25/2004 6:47 EST - 09/25/2004 11:59 EST Hospital Encounter [facility] Perioperative Services- [address] [phone] Robin Garay MD PhD Discharge Disposition: Home [...] [facility] Rheumatology & Immunology - [address] 1850[address] Micaela Hoff MD [address] [place] [address], Level [address] [place] [address] documented as of this encounter Procedures Procedure Name Priority Date/Time Associated Diagnosis Comments TEST, URINE Routine 09/25/2004 7:28 EST documented in this encounter Results * TEST, URINE (09/25/2004 7:28 EST) Result-Pregnanc y Test, Ur Neg [facility] Specific [place] 1.020 [facility] 09/25/2004 7:28 EST 09/25/2004 7:29 EST Robin Garay MD PhD URINALYSIS ORDER HEATH [facility] [address] [place] [address] documented in this encounter Visit Diagnoses Not on filedocumented in this encounter
--- OUTSIDE RECORDS SUMMARY | 2024-07-12 18:10 | XMS_ITS | Encounter Summary ---
Author Organization [facility] [place] [address] Care Team Providers Care Tower Dragline Operator Name Role Phone Anuja Cai HUANG Primary Care Provider [phone] Reason for Visit * Reason Comments Medication Refill Encounter Details Date Type Department Care Team (Late Contact Info) Description 04/18/2024 [place] [phone] Britt Zurita MD [facility] [place] [address] Polyarthralgia Social History Tobacco Use Types Packs/Day [...] 12:00 PM EDT Office [place] [phone] Britt Zurita MD [facility] [place] [address] documented as of this encounter Visit Diagnoses Diagnosis Polyarthralgia Pain in joint, multiple sites documented in this encounter Care Teams Tower Dragline Operator Relationship Specialty Start Date End Date Anuja Cai APRN [address] [place] [address] PCP - General Internal Medicine 07/25/21 documented as of this encounter
--- OUTSIDE RECORDS SUMMARY | 2024-07-12 18:10 | XMS_ITS | Encounter Summary ---
Author Organization [facility] Address [address] [place] [address] Care Team Providers Care Power And Recovery Shift Engineer Name Role Phone Unavailable Primary Care Provider Unavailabl e Encounter Details Date Type Department Care Team (Late st Contact Info) Description 07/06/2002 8:14 EDT Hospital Encounter [facility] - Other [address] [place] [address] Ashley Villegas FNP [address] [place] [phone] Unknown, Provider, Social History Tobacco Use Types [...] [facility] Rheumatology & Immunology - [address] [address] Micaela Hoff MD [address] [place] [address], Level [address] [place] [phone] documented as of this encounter Procedures Procedure [...] ? TERI LAKE ? Accession #: ? [id number] : ? 1980 (Age: 22) ??F ?Collect Date: ? 07/06/2002 Location: ? [facility] ? Receive Date: ? 07/11/2002 Provider: ?ASHLEY VILLEGAS [facility] Copy to: ? [facility] ? [facility] ?[address] ?[place] [id number] ? Specimen/Source: ?ThinPrep Pap Test, Cervix Last Menstrual Period: ? 06/29/02 Previous Gynecologic Pathology: ? ASC-US: 04/02 ? SPECIMEN ADEQUACY ? Satisfactory for Evaluation - transformation zone component present GENERAL CATEGORIZATION ? Epithelial Cell Abnormality INTERPRETATION ? Squamous Cell Abnormality - Atypical squamous cells, undetermined significance. EDUCATIONAL NOTES/RECOMMENDATI ONS ? [facility] recommends following the 2001 Consensus Guidelines for the Management of Women with Cervical Cytological Abnormalities (BE,2002;287:212 0-9). Management algorithms have been distributed by [facility] and are available online at www.ASCCP.org. ? Document reviewed and electronically signed by: ? JASPREET COTTRELL MD ? Report Date: ??07/13/2002 11:25 End of Report [facility] 07/06/2002 07/11/[address] [facility] PATHOLOGY ORDERABLES Performing Organization Address City/State/[facility] Co de Phone Number [facility] [address] [place] [address] documented in this encounter Visit Diagnoses Not on filedocumented in this encounter Additional Health Concerns Infection Onset Date Last Indicated Resolved Time MRSA 10/20/2011 10/20/2011 documented as of this encounter
--- OUTSIDE RECORDS SUMMARY | 2024-07-12 18:10 | XMS_ITS | Encounter Summary ---
Author Organization [facility] Address [facility] [place] [address] Care Team Providers Care Oxygen Equipment Aide Name Role Phone Anuja Cai APRN Primary Care Provider [phone] Encounter Details Date Type Department Care Team [...] 12:00 PM EDT Office Visit [place] [address] Britt Zurita MD [facility] [place] [address] documented as of this encounter Visit Diagnoses Not on filedocumented in this encounter Care Teams Oxygen Equipment Aide Relationship Specialty Start Date End Date Anuja Cai APRN [address] [place], [place] [address] PCP - General Internal Medicine 07/25/21 documented as of this encounter
--- OUTSIDE RECORDS SUMMARY | 2024-07-12 18:10 | XMS_ITS | Encounter Summary ---
Author Organization [facility] [place] [address] Care Team Providers Care Adult Education Manager Name Role Phone Anuja Cai HUANG Primary Care Provider + [phone] Encounter Details Date Type Department Care Team (Late st Contact Info) Description 01/13/2024 Orders [place] [phone] Kp Erazo MD [facility] [place] [address] Right knee pain, unspecified chronicity Social History [...] 12:00 PM EDT Office [place] [phone] Britt Zurita MD [facility] [place] [address] documented as of this encounter Results * [...] who have questions please contact the health resident care technician that requested your imaging first. ? Narrative [...] patients who have questions please contactthe health resident care technician that requested your imaging first. Kp Erazo MD IMG DX ORDERABLES documented in this encounter Visit Diagnoses Diagnosis Right knee pain, unspecified chronicity Right knee pain, unspecified chronicity documented in this encounter Care Teams Adult Education Manager Relationship Specialty Start Date End Date Anuja Cai APRN [address] [place] [address] PCP - General Internal Medicine 07/25/21 documented as of this encounter
--- OUTSIDE RECORDS SUMMARY | 2024-07-12 18:10 | XMS_ITS | Encounter Summary ---
Author Organization [facility] Address [address] [place] [address] Care Team Providers Care Factory Representative Name Role Phone Ladonna Maurer Primary Care Provider Encounter Details Date Type Department Care Team (Late st Contact Info) Description 03/03/2003 Results Only [facility] - Maple conversion [address] [place] [address] Ashley Cerrato [address] [address] Social History Tobacco Use Types Packs/Day Years [...] [facility] - [facility] [address] [place], [place] [address] Micaela Hoff MD 111 [facility], [address] [place] [address] documented as of this encounter [...] ? TERI CROWE ? Accession #: ? [id number] : ? 1980 (Age: 22) ??F ?Collect [...] Ashley BLAIRP PATHOLOGY ORDERABLES [facility] T[facility] [address] [place] [address] documented in this encounter Visit Diagnoses Not on filedocumented in this encounter Care Teams Factory Representative Relationship Specialty Start Date End Date Ladonna Maurer PA [address] [place] [address] PCP - General 05/20/10 06/02/11 documented as of this encounter
--- OUTSIDE RECORDS SUMMARY | 2024-07-12 18:10 | XMS_ITS | Encounter Summary ---
Author Organization [facility] Address [address] [place] [address] Care Team Providers Care Field Care Advocate Name Role Phone Unavailable Primary Care Provider Unavailabl e Encounter Details Date Type Department Care Team (Latest Contact Info) Description 05/03/2004 10:53 EDT - 05/03/2004 11:59 EDT Hospital Encounter [facility] - Other [address] [place] [address] Yomi Valdes MD Discharge Disposition: Auto Discharge [...] 10:20 EST Office Visit [facility] Rheumatology & Immunology - [facility] [address] [place], [place] [address] Micaela Hoff MD 111 [facility], [address] [place] [phone] documented as of this encounter Procedures Procedure [...] ? TERI CROWE ? Accession #: ? [id number] : ? 1980 (Age: 24) ??F ?Collect [...] Valdes MD PATHOLOGY ORDERABLES JENIFER TIJERINA [address] [place] [address] documented in this encounter Visit Diagnoses Not on filedocumented in this encounter
--- OUTSIDE RECORDS SUMMARY | 2024-07-12 18:10 | XMS_ITS | Encounter Summary ---
Author Organization [facility] Address [address] [place] [address] Care Team Providers Care Drupal Architect Name Role Phone Ladonna Maurer Primary Care Provider [phone] Encounter Details Date Type Department Care Team (Late st Contact Info) Description 12/29/2003 Results Only [facility] - Maple conversion [address] [place] [address] Stephany Adkins DO [facility] STAFF MAIL [address] [place] [address] Social History Tobacco Use Types Packs/Day Years [...] [facility] Rhe[facility] - [facility] [address] [place], [place] [address] Micaela Hoff MD 111 [facility], [address] [place] [phone] documented as of this encounter Procedures Procedure [...] Result No Neisseria gonorrhoeae DNA detected by crew trainer mediated amplification. [facility] Report Status Final [id number] [facility] Specimen Description Urine [facility] 12/29/2003 16:0 6 EST 12/29/2003 18:59 EST Stephany A Lucille DO MICROBIOLOGY - GENER AL ORDERABLES Performing Organization Address City/[facility] Co de Phone Number [facility] [address] [place] [address] * GLUCOSE, SERUM (12/29/2003 16:06 EST) Glucose, Serum 97 70 - 110 mg/dl [facility] 12/29/2003 16:0 6 EST 12/29/2003 18:46 EST Stepahny A Lucille DO CHEMISTRY & BLOOD GA S ORDERABLES Performing Organization Address City/[facility]/ZIP Co de Phone Number [facility] [address] [place] [address] * HDL (12/29/2003 16:06 EST) HDL 38 mg/dl [facility] Comment: Highly Desirable:>60 Desirable:35-60 High Risk:<35 12/29/2003 16:0 6 EST 12/29/2003 18:46 EST Stephany A Lucille DO CHEMISTRY & BLOOD GA S ORDERABLES Performing Organization Address City/[facility]/ZIP Co de Phone Number [facility] [address] [place] [address] * CHOLESTEROL (12/29/2003 16:06 EST) Cholesterol 149 mg/dl [facility] Comment: Desirable:<200 Borderline:200-239 High Risk:>iu=546 12/29/2003 16:0 6 EST 12/29/2003 18:46 EST Stephany Adkins DO CHEMISTRY & BLOOD GA S ORDERABLES Performing Organization Address [facility] Co de Phone Number [facility] [address] [place] [address] * CHLAMYDIA TRACHOMATIS AMPLIFIED PROBE (12/29/2003 16:06 EST) Specimen Description Urine [facility] Result No Chlamydia trachomatis DNA detected by crew trainer mediated amplification. [facility] Report Status Final [id number] [facility] 12/29/2003 16:0 6 EST 12/29/2003 18:58 EST Stephany Adkins DO MICROBIOLOGY - GENER AL ORDERABLES Performing Organization Address [facility] de Phone Number [facility] [address] [place] [address] documented in this encounter Visit Diagnoses Not on filedocumented in this encounter Care Teams Drupal Architect Relationship Specialty Start Date End Date Ladonna Maurer PA [address] [place] [address] PCP - General 05/20/10 06/02/11 documented as of this encounter
--- OUTSIDE RECORDS SUMMARY | 2024-07-12 18:10 | XMS_ITS | Encounter Summary ---
Author Organization [facility] Address [address] [place] [address] Care Team Providers Care Information Security Director Name Role Phone Ladonna Maurer Primary Care Provider Encounter Details Date Type Department Care Team (Late st Contact Info) Description 05/31/2004 Results Only [facility] - Maple conversion [address] [place] [address] Rehan Overton MD [address] [phone] Social History Tobacco Use Types Packs/Day Years [...] [facility] - [facility] [address] [place], [place] [address] Micaela Hoff MD 111 [facility], [address] [place] [phone] documented as of this encounter Procedures Procedure [...] de Phone Number [facility] [address] [place] [address] documented in this encounter Visit Diagnoses Not on filedocumented in this encounter Care Teams Information Security Director Relationship Specialty Start Date End Date Ladonna Maurer PA [address] [place] [address] PCP - General 05/20/10 06/02/11 documented as of this encounter
--- OUTSIDE RECORDS SUMMARY | 2024-07-12 18:10 | XMS_ITS | Encounter Summary ---
[place] [address] Care Team Providers Care Zoo Director Name Role Phone Anuja Cai APRN Primary Care Provider + [phone] Encounter Details Date Type Department Care Team (Latest Contact Info) Description 06/03/2022 3:00 PM EDT TH Visit (TeleHealth) [place] [phone] Teri Gonzalez APRN [address] [place] [address] Diarrhea, unspecified type Social History Tobacco Use [...] this encounter Progress Notes * Teri Gonzalez, SPINNING LATHE OPERATOR AUTOMATIC - 06/03/2022 3:00 PM EDT GI MOTILITY [...] worse since January 2021. Urgent non- bloody Frost type 5-7 BMs typically 1-2 times per [...] daily. ??? fluticasone propionate (Flonase) 50 mcg/actuation [place], Suspension SPRAY ONE SPRAY IN EACH NOSTRIL [...] has a past surgical history that includes [place] tooth extraction; [place] tooth extraction; Uterine fibroid surgery; Upper Gi Endoscopy, Biopsy ([id number]) (N/A, 09/30/2021); and Colonoscopy, Diagnostic ([id number]) (N/A, 09/30/2021). Family History: family history includes [...] 2. Longstanding abdominal pain and urgent non-bloody Frost type 5-7 BMs up to 8 times [...] be through PCP Teri Gonzalez APRN [facility] [place] [address] documented in this encounter Plan of Treatment Upcoming Encounters Date Type Department Care Team (Late st Contact Info) Description 08/17/2024 12:00 PM EDT Office Visit Rheumatology at [facility] [place] [address] Britt Zurita MD [facility] [place] [address] documented as of this encounter Visit Diagnoses Diagnosis Diarrhea, unspecified type documented in this encounter Care Teams Zoo Director Relationship Specialty Start Date End Date Anuja Cai, SPINNING LATHE OPERATOR AUTOMATIC [address] [place] [address] PCP - General Internal Medicine 07/25/21 documented as of this encounter
--- OUTSIDE RECORDS SUMMARY | 2024-07-12 18:10 | XMS_ITS | Encounter Summary ---
Author Organization [facility] Address [address] [place] [address] Care Team Providers Care Transportation Engineer Name Role Phone Ladonna Maurer Primary Care Provider [phone] Yair Dow MD Primary Care Provider [phone] Encounter Details Date Type Department Care Team (Late st Contact Info) Description 10/01/2004 Before PRISM Converted Visit (Maple) [facility] - Maple conversion [address] [place] [address] Yeimy Solorio, PhD [address] [place] [address] Social History Tobacco Use Types Packs/Day Years Used Date Smoking Tobacco: Never Assessed Sex and Gender Information Value Date Recorded Sex Assigned at Not on file Gender Identity Not on file Sexual Orientation Not on file documented as of this encounter Procedure Notes * German, Conv Fire Sprinkler Fitter - 06/12/2011 1222 EDT OPPROC LAKHANI 7 PROCEDURE / OPERATIVE REPORT NAME: TERI LAKE : 1980 MRN: [id number] DATE: 09/25/2004 SURGEON: ROBIN MEDINA MD MANAGER CRISIS: YEIMY SOLORIO MD, COOPER MEJIA MD PREOPERATIVE [...] vagina and uterus. A pediatric Ball of 8-Salvadorean size was placed in the uterus and [...] cc. SPECIMENS: None. CULTURES: None. DRAINS: An 8-Salvadorean pediatric Ball was placed in the uterus for the patient to go home with. COMPLICATIONS: None. CONDITION: Good. d - 09/25/2004 10:29:43 - YEIMY SOLORIO MD t - 10/01/2004 09:45:21 - mt Voice ID - [id number] Document ID - [id number] cc: ROBIN MEJIA MD RESIDENT VALERIA MCCARTHY MD, REFERRING PHYSICIAN YEIMY SOLORIO MD, <Dictator> This document has been electronically signed by ROBIN MEDINA MD on 10/02/2004 16:28:36. documented in this encounter Plan of Treatment Upcoming Encounters Date Type Department Care Team (Late st Contact Info) Description 12/29/2024 10:20 EST Office Visit [facility] Rheumatology & Immunology - [address] [address] Micaela Hoff MD [address] [place] [address], [address] [place] [phone] documented as of this encounter Visit Diagnoses Not on filedocumented in this encounter Care Teams Transportation Engineer Relationship Specialty Start Date End Date Ladonna Maurer PA [address] [place] [address] PCP - General 05/20/10 06/02/11 Yair Dow MD [address] [place] [address] PCP - General 06/03/11 03/08/12 documented as of this encounter
--- OUTSIDE RECORDS SUMMARY | 2024-07-12 18:10 | XMS_ITS | Encounter Summary ---
Author Organization [facility] Address [address] [place] [address] Care Team Providers Care Tree Feller Name Role Phone Unavailable Primary Care Provider Unavailabl e Encounter Details Date Type Department Care Team (Latest Contact Info) Description 12/29/2003 10:51 EST - 12/29/2003 11:59 EST Hospital Encounter [facility] - Other [address] [place] [address] Grayson Geiger MD Discharge Disposition: Auto Discharge [...] [facility] Rheumatology & Immunology - [facility] [address] [place], [place] [address] Micaela Hoff MD 111 [facility], [address] [place] [phone] documented as of this encounter Procedures Procedure [...] ? TERI CROWE ? Accession #: ? [id number] : ? 1980 (Age: 23) ??F ?Collect [...] Matias DO PATHOLOGY ORDERABLES JENIFER TIJERINA [address] [place] [address] documented in this encounter Visit Diagnoses Not on filedocumented in this encounter
--- OUTSIDE RECORDS SUMMARY | 2024-07-12 18:10 | XMS_ITS | Encounter Summary ---
Author Organization [facility] Address [address] [place] [address] Care Team Providers Care Cad Application Support Specialist Name Role Phone Unavailable Primary Care Provider Unavailabl e Encounter Details Date Type Department Care Team (Late st Contact Info) Description 03/06/2004 17:51 EDT Hospital Encounter [facility] - Other [address] [place], [place] [phone] Gustavo Smith MD [address] [phone] Social History Tobacco Use Types Packs/Day Years [...] [facility] - [facility] [place] [address] [place], [place] [phone] Micaela Hoff MD 111 [facility], [facility], [address] [place] [address] (work) documented as of this encounter Visit Diagnoses Not on filedocumented in this encounter Additional Health Concerns Infection Onset Date Last Indicated Resolved Time MRSA 10/20/2011 10/20/2011 documented as of this encounter
--- OUTSIDE RECORDS SUMMARY | 2024-07-12 18:10 | XMS_ITS | Encounter Summary ---
[place] [address] Care Team Providers Care Time Checker Name Role Phone Trell Anuja Barbara ENCINAS Primary Care Provider + [phone] Reason for Referral * Diagnostic Test (Routine) - Closed Specialty Diagnoses / Procedures Referred By Contac t Referred To Contact Radiology Diagnoses Opacity of lung on imaging study Procedures CT Chest wo Contrast (Generic) Britt Zurita MD [facility] [place] [address] [facility] [address] [place] [address] Referral ID Status Reason Start Date Expiration Date V isits Requested Visits Authorized [id number] Closed Specialty Service Requested 02/17/2024 08/18/2025 1 1 Encounter Details Date Type Department Care Team (Late st Contact Info) Description 02/17/2024 Orders [place] [address] Britt Zurita MD [facility] [place] [address] Opacity of lung on imaging [...] 12:00 PM EDT Office [place] [address] Britt Zurita MD [facility] [place] [address] documented as of this encounter Results * CT Chest wo Contrast (Generic) (02/19/2024 10:43 AM EDT) [employer] WORKSTATION ID [id number] RAD Anatomical Region Laterality Modality Chest Computed [...] have questions please contact the health resident caregiver that requested your imaging first. ? [...] who have questions please contactthe health resident caregiver that requested your imaging first. Electronically signed by: Rebecca Escalera MD, [facility] ([phone]), at 02/21/2024 6:30 AM Britt Zurita MD IMG CT ORDERABLES documented in this encounter Visit Diagnoses Diagnosis Opacity of lung on imaging study Opacity of lung on imaging study documented in this encounter Care Teams Time Checker Relationship Specialty Start Date End Date Anuja Cai, COURT ATTENDANT [address] [place] [address] PCP - General Internal Medicine 07/25/21 documented as of this encounter
--- OUTSIDE RECORDS SUMMARY | 2024-07-12 18:10 | XMS_ITS | Encounter Summary ---
Author Organization [facility] [place] [address] Care Team Providers Care Keeper Head Name Role Phone Anuja Cai APRN Primary Care Provider + [phone] Reason for Referral * Physical Therapy (Routine) - Authorized Specialty Diagnoses / Procedures Referred By Ehsan patel Referred To Contact Physical Therapy Diagnoses Right knee pain, unspecified chronicity Kp Erazo MD [facility] [place] [address] Physical Therapy, [address] [address] Referral ID Status Reason Start Date Expiration Date Visits Requested Visits Authorized [id number] Authorized Evaluate and Treat 01/26/2024 07/24/2024 12 [...] OSTEOCHONDRAL LESION LATERAL FEMORAL CONDYLE Tabatha Carmen, PARTY SUPPLY SPECIALIST [address] [place] [address] [facility] [address] [place] [phone] Referral ID Status Reason Start Date Expiration Date V isits Requested Visits Authorized [id number] Closed Consult, Test & Treat PCP Updated and/or Approved 02/03/2023 02/03/2024 6 6 Encounter Details Date Type Department Care Team (Late st Contact Info) Description 01/26/2024 1:00 PM EDT Office [place] [address] Kp Erazo MD [facility] [place] [address] Right knee pain, unspecified chronicity (Primary Dx) [...] me at the request of Tabatha Carmen, PARTY SUPPLY SPECIALIST [address] [place] [address] for the above chief complaint. HPI: Teri [...] DIAGNOSTIC performed by Guilherme Rock MD at [facility] ENDOSCOPY PRO UPPER GI ENDOSCOPY, BIOPSY N/A 09/30/2021 EGD WITH BIOPSY (WRVU 2.49) performed by Guilherme Rock MD at [facility] ENDOSCOPY UTERINE FIBROID SURGERY WISDOM TOOTH EXTRACTION [...] Hearn MD Orthopaedic Surgery - PGY3 Pager: [phone] documented in this encounter Plan of Treatment Upcoming Encounters Date Type Department Care Team (Late st Contact Info) Description 08/17/2024 12:00 PM EDT Office [place] [address] Britt Zurita MD [facility] [place] [address] Scheduled Referrals Name Type Priority Associated Diagnoses Orde r Schedule Referral to Physical Therapy Outpatient Referral Routine Right knee pain, unspecified chronicity Ordered: 01/26/2024 documented as of this encounter Visit Diagnoses Diagnosis Right knee pain, unspecified chronicity- Primary documented in this encounter Care Teams Keeper Head Relationship Specialty Start Date End Date Anuja Cai APRN [address] [place] [address] PCP - General Internal Medicine 07/25/21 documented as of this encounter
--- OUTSIDE RECORDS SUMMARY | 2024-07-12 18:10 | XMS_ITS | Encounter Summary ---
Author Organization [facility] Address [address] [place] [address] Care Team Providers Care Community Coordinator For High School Name Role Phone Unavailable Primary Care Provider Unavailabl e Encounter Details Date Type Department Care Team (Late st Contact Info) Description 11/19/2004 16:10 EST Hospital Encounter [facility] - Other [address] [place], [place] [address] Gustavo Smith MD [address] [phone] Social History Tobacco Use Types Packs/Day Years [...] 12/29/2024 10:20 EST Office Visit [facility] Rheumatology & Immunology - [facility] [address] [place], [place] [phone] Micaela Hoff MD 111 [facility], [facility], [address] [place] [address] documented as of this encounter Visit Diagnoses Not on filedocumented in this encounter Additional Health Concerns Infection Onset Date Last Indicated Resolved Time MRSA 10/20/2011 10/20/2011 documented as of this encounter
--- OUTSIDE RECORDS SUMMARY | 2024-07-12 18:10 | XMS_ITS | Encounter Summary ---
Author Organization [facility] [place] [address] Care Team Providers Care Social Media Marketing Manager Name Role Phone Anuja Cai HUANG Primary Care Provider + [phone] Encounter Details Date Type Department Care Team (Late st Contact Info) Description 02/05/2024 Ancillary Procedure [place] [phone] Alphonso Vasques MD [facility] [place] [address] Social History Tobacco Use Types Packs/Day Years [...] 12:00 PM EDT [place] [address] Britt Zurita MD [facility] RHEUMATOLOGY [place], [place] [phone] documented as of this encounter Procedures Procedure [...] City/State/[facility] Co de Phone Number [place], [place] documented in this encounter Visit Diagnoses Not on filedocumented in this encounter Care Teams Social Media Marketing Manager Relationship Specialty Start Date End Date Anuja Cai APRN [address] [facility] [address] PCP - General Internal Medicine 07/25/21 documented as of this encounter
--- OUTSIDE RECORDS SUMMARY | 2024-07-12 18:10 | XMS_ITS | Encounter Summary ---
Author Organization [facility] Address [address] [place] [address] Care Team Providers Care Farm Machinery Mechanic Name Role Phone Unavailable Primary Care Provider Unavailabl e Encounter Details Date Type Department Care Team (Late st Contact Info) Description 05/31/2004 8:51 EDT Hospital Encounter [facility] - [facility] [address] [place] [address] Rehan Overton MD [address] [place] [phone] Social History Tobacco Use Types Packs/Day Years [...] 12/29/2024 10:20 EST Office Visit [facility] Rheumatology & Immunology - [address] [address] Micaela Hoff MD 111 [facility], [address] [place] [phone] documented as of this encounter Visit Diagnoses Not on filedocumented in this encounter Additional Health Concerns Infection Onset Date Last Indicated Resolved Time MRSA 10/20/2011 10/20/2011 documented as of this encounter
--- OUTSIDE RECORDS SUMMARY | 2024-07-12 18:10 | XMS_ITS | Encounter Summary ---
Author Organization [facility] Address [facility] [place] [address] Care Team Providers Care Oncology Consultant Name Role Phone Anuja Cai APRN Primary Care Provider [phone] Encounter Details Date Type Department Care Team [...] 12:00 PM EDT [place] [address] Britt Zurita MD [facility] [place] [address] documented as of this encounter Visit Diagnoses Not on filedocumented in this encounter Care Teams Oncology Consultant Relationship Specialty Start Date End Date Anuja Cai APRN [address] [place], [place] [address] PCP - General Internal Medicine 07/25/21 documented as of this encounter
--- OUTSIDE RECORDS SUMMARY | 2024-07-12 18:10 | XMS_ITS | Encounter Summary ---
Author Organization [facility] Address [facility] [place] [address] Care Team Providers Care Medicaid Analyst Name Role Phone Anuja Cai APRN Primary Care Provider [phone] Encounter Details Date Type Department Care Team (Latest Contact Info) Description 01/26/2024 12:29 PM EDT - 01/26/2024 11:59 PM EDT Hospital Encounter XRay at [address] [place] [address] Kp Erazo MD [facility] [place] [address] Right knee pain, unspecified chronicity Discharge Disposition: [...] 02/16/24 07/29/2021 fluticasone propionate (Flonase) 50 mcg/actuation [place], Suspension SPRAY ONE SPRAY IN EACH NOSTRIL TWICE A DAY 08/07/2021 fluconazole (Diflucan) 150 mg Tablet Take 150 mg by mouth as needed. 07/25/2021 naproxen (Naprosyn) 500 mg tabletIndications:Polya rthralgia Take 1 tablet by mouth 2 times daily (with meals). 60 tablet 3 04/16/2023 04/18/2024 cetirizine (ZyrTEC) 1 mg/mL Solution Take by mouth. 02/16/2024 PushCallTouch Verio test strips Strip 11/20/2022 02/16/2024 blood-glucose [...] 12:00 PM EDT Office [place] [address] Britt Zurita MD [facility] [place] [address] documented as of this encounter Procedures Procedure [...] questions please contact the health child care center assistant director that requested your imaging first. ? Electronically signed by: Juliana Jensen MD, [facility] ([phone]), at 01/26/2024 2:42 PM Narrative 01/26/2024 2:42 [...] have questions please contactthe health child care center assistant director that requested your imaging first. Electronically signed by: Juliana Jensen MD, [facility]([phone]), at 01/26/2024 2:42 PM Kp Erazo MD IMG DX ORDERABLES documented in this encounter Visit Diagnoses Diagnosis Right knee pain, unspecified chronicity documented in this encounter Care Teams Medicaid Analyst Relationship Specialty Start Date End Date Anuja Cai APRN [address] [facility] [place] [address] PCP - General Internal Medicine 07/25/21 documented as of this encounter
--- OUTSIDE RECORDS SUMMARY | 2024-07-12 18:10 | XMS_ITS | Encounter Summary ---
[place] [address] Care Team Providers Care Centrifugal Screen Tender Name Role Phone Anuja Cai APRN Primary Care Provider [phone] Reason for Referral * Consultation (Routine) - Closed Specialty Diagnoses / Procedures Referred By Ehsan patel Referred To Contact Rheumatology Diagnoses Arthralgia, unspecified joint Other chronic pain Other fatigue Other specified abnormal immunological findings in serum Anuja Cai APRN [address] [place] [address] [facility] [address] [place] [phone] Referral ID Status Reason Start Date Expiration Date V isits Requested Visits Authorized [id number] Closed Consult, Test & Treat PCP Updated and/or Approved 02/17/2023 02/17/2024 6 6 Encounter Details Date Type Department Care Team (Latest Contact Info) Description 02/17/2023 Transcribe Orders eDH Incoming Referrals [phone] Anuja Cai APRN [address] [place], [place] [id number] Arthralgia, unspecified joint; Other chronic pain; Other [...] 12:00 PM EDT Office [place] [address] Britt Zurita MD [facility] [place] [address] Scheduled Referrals Name Type Priority Associated Diagnoses Orde r Schedule Referral to Rheumatology Outpatient Referral Routine Arthralgia, unspecified joint Other chronic pain Other fatigue Other specified abnormal immunological findings in serum Ordered: 02/17/2023 documented as of this encounter Visit Diagnoses Diagnosis Arthralgia, unspecified joint Other chronic pain Other fatigue Other specified abnormal immunological findings in serum documented in this encounter Care Teams Centrifugal Screen Tender Relationship Specialty Start Date End Date Anuja Cai APRN [address] [place] [address] PCP - General Internal Medicine 07/25/21 documented as of this encounter
--- OUTSIDE RECORDS SUMMARY | 2024-07-12 18:10 | XMS_ITS | Encounter Summary ---
Author Organization [facility], 1928–[address] [place] [address] Care Team Providers Care Assistant Principal Name Role Phone TrellAnuja APRN Primary Care Provider [phone] Reason for Referral * Diagnostic Test (Routine) - Closed Specialty Diagnoses / Procedures Referred By Contac t Referred To Contact Radiology Diagnoses Opacity of lung on imaging study Procedures CT Chest wo Contrast (Generic) Britt Zurita MD [facility] [address] [facility] [place] [address] Referral ID Status Reason Start Date Expiration Date V isits Requested Visits Authorized [id number] Closed Specialty Service Requested 02/17/2024 08/18/2025 1 1 Reason for Visit * Diagnostic Test (Routine) - Closed Specialty Diagnoses / Procedures Referred By Contac t Referred To Contact Radiology Diagnoses Opacity of lung on imaging study Procedures CT Chest wo Contrast (Generic) Britt Zurita MD [facility] [place] [address] [facility] [place] [address] Referral ID Status Reason Start Date Expiration Date V isits Requested Visits Authorized [id number] Closed Specialty Service Requested 02/17/2024 08/18/2025 1 1 Encounter Details Date Type Department Care Team (Latest Contact Info) Description 02/19/2024 10:29 AM EDT - 02/19/2024 11:59 PM EDT Hospital Encounter CT Scan at [facility] [place] [address] Britt Zurita MD [facility] [place] [address] Opacity of lung on imaging study Discharge [...] 02/16/24 07/29/2021 fluticasone propionate (Flonase) 50 mcg/actuation [place], Suspension SPRAY ONE SPRAY IN EACH NOSTRIL [...] 12:00 PM EDT Office [place] [address] Britt Zurita MD [facility] [place] [address] documented as of this encounter Procedures Procedure Name Priority Date/Time Associated Diagnosis Comments CT CHEST WO CONTRAST (GENERIC) Routine 02/19/2024 10:43 AM EDT Opacity of lung on imaging study documented in this encounter Results * CT Chest wo Contrast (Generic) (02/19/2024 10:43 AM EDT) [employer] WORKSTATION ID [id number] RAD Anatomical Region Laterality Modality Chest Computed [...] who have questions please contact the health out of school hours care worker that requested your imaging first. ? Electronically signed by: Rebecca Escalera MD, [facility] ([phone]), at 02/21/2024 6:30 AM Narrative 02/21/2024 6:30 [...] patients who have questions please contactthe health out of school hours care worker that requested your imaging first. Electronically signed by: Rebecca Escalera MD, [facility] ([phone]), at 02/21/2024 6:30 AM Britt Zurita MD IMG CT ORDERABLES documented in this encounter Visit Diagnoses Diagnosis Opacity of lung on imaging study documented in this encounter Care Teams Assistant Principal Relationship Specialty Start Date End Date Anuja Cai APRN [address] [place] [address] PCP - General Internal Medicine 07/25/21 documented as of this encounter
--- OUTSIDE RECORDS SUMMARY | 2024-07-12 18:10 | XMS_ITS | Encounter Summary ---
Author Organization [facility] Address [address] [place] [address] Care Team Providers Care Data Administrator Name Role Phone Ladonna Maurer Primary Care Provider [phone] Encounter Details Date Type Department Care Team (Late st Contact Info) Description 02/06/2004 Results Only [facility] - [facility] [address] [place] [address] Sonya Florentino [address] [place] [facility] [place] [address] Social History Tobacco Use Types Packs/Day Years [...] [facility] Rheumatology & Immunology - [facility] [address] [place], [place] [address] Micaela Hoff MD [address] [facility], [address] [place] [phone] documented as of this encounter Procedures Procedure Name Priority Date/Time Associated Diagnosis Comments GROUP A STREP CULTURE Routine 02/06/2004 15:06 EDT documented in this encounter Results * PHARYNGITIS CULTURE (02/06/2004 15:06 EDT) Specimen Description Throat [facility] Result Few STREPTOCOCCUS , BETA HEMOLYTIC GROUP A (STREPTOCOCCU S PYOGENES) Few Usual karen-pharyngea l marquita Supplementary report. [facility] Report Status Final [id number] [facility] 02/06/2004 15:0 6 EDT 02/06/2004 20:09 EDT Sonya Florentino MICROBIOLOGY - GENER AL ORDERABLES [facility] [address] [place] [address] documented in this encounter Visit Diagnoses Not on filedocumented in this encounter Care Teams Data Administrator Relationship Specialty Start Date End Date Ladonna Maurer PA [address] [place] [address] PCP - General 05/20/10 06/02/11 documented as of this encounter
--- OUTSIDE RECORDS SUMMARY | 2024-07-12 18:10 | XMS_ITS | Encounter Summary ---
Author Organization [facility] Address [address] [place] [address] Care Team Providers Care Cinder Block Mason Name Role Phone Ladonna Maurer Primary Care Provider [phone] Encounter Details Date Type Department Care Team (Late st Contact Info) Description 03/06/2004 Results Only [facility] Family Medicine [address] [id number] Gustavo Smith MD [address] [phone] Social History Tobacco Use Types Packs/Day Years [...] [facility] Rheumatology & Immunology - [facility] [address] [place], [place] [phone] Micaela Hoff MD [address] [facility], [address] [place] [address] documented as of this encounter [...] GA S ORDERABLES [facility] [address] [place] [address] * HEMAGRAM AND DIFFERENTIAL (03/06/2004 17:29 EDT) Pathologist [facility] WBC 7.83 4.0 - 12.4 K/cmm [facility] [...] DNA PROBE ORDERABLES [facility] [address] [place] [address] documented in this encounter Visit Diagnoses Not on filedocumented in this encounter Care Teams Cinder Block Mason Relationship Specialty Start Date End Date Ladonna Maurer PA [address] [place] [address] PCP - General 05/20/10 06/02/11 documented as of this encounter
--- OUTSIDE RECORDS SUMMARY | 2024-07-12 18:10 | XMS_ITS | Encounter Summary ---
Author Organization [facility] Address [address] [place] [address] Care Team Providers Care Tape Weaver Name Role Phone Unavailable Primary Care Provider Unavailabl e Encounter Details Date Type Department Care Team (Latest Contact Info) Description 01/18/2001 15:59 EST Hospital Encounter [facility] - Other [address] [place] [address] Georgiana Roberto MD [address] [place] [phone] Unknown, Provider, Discharge Disposition: Auto Discharge Social [...] [facility] Rheumatology & Immunology - [facility] [address] [place], [place] [address] Micaela Hoff MD [address] [facility], [address] [place] [address] documented as of this encounter Procedures Procedure [...] ? TERI LAKE ? Accession #: ? [id number] : ? 1980 (Age: 20) ??F ?Collect Date: ? 01/18/2001 Location: ? [facility] ? Receive Date: ? 01/25/2001 Provider: ?GEORGIANA ROBERTO MD Copy to: ? [facility] ? [place] [facility] ? [address] ? [place] [address] ? Specimen/Source: ?ThinPrep Pap Test, Cervix/Endocervix Last [...] Zhu MD PATHOLOGY ORDERABLES Performing Organization Address City/State/[facility] Co de Phone Number [facility] [address] [place] [address] documented in this encounter Visit Diagnoses Not on filedocumented in this encounter
--- OUTSIDE RECORDS SUMMARY | 2024-07-12 18:10 | XMS_ITS | Encounter Summary ---
Author Organization [facility] Address [address] [place] [address] Care Team Providers Care Retention Specialist Name Role Phone Unavailable Primary Care Provider Unavailabl e Encounter Details Date Type Department Care Team (Late st Contact Info) Description 08/09/2003 8:46 EDT Hospital Encounter [facility] - Other [address] [place] [address] Newton Evans, [address] [place] [address] Social History Tobacco Use Types Packs/Day Years [...] [facility] Rheumatology & Immunology - [facility] [address] [place], [place] [address] Micaela Hoff MD [address] [facility], [address] [place] [phone] documented as of this encounter Procedures Procedure [...] ? TERI CROWE ? Accession #: ? [id number] : ? 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
--- OUTSIDE RECORDS SUMMARY | 2024-07-12 18:10 | XMS_ITS | Encounter Summary ---
Author Organization [facility] [place] [address] Care Team Providers Care Surgical Aide Name Role Phone Anuja Cai APRN Primary Care Provider [phone] Encounter Details Date Type Department Care Team ([facility] st Contact Info) Description 02/16/2024 11:00 AM EDT Office [place] [phone] Britt Zurita MD [facility] [place] [address] Polyarthralgia Social History Tobacco Use Types Packs/Day [...] was 40 minutes. Britt Zurita [place] [employer] [place], [address] documented in this encounter Plan of Treatment Upcoming Encounters Date Type Department Care Team (Late st Contact Info) Description 08/17/2024 12:00 PM EDT Office [place] [address] Britt Zurita MD [facility] [place] [address] documented as of this encounter Results * [...] who have questions please contact the health director career that requested your imaging first. ? Narrative [...] sites documented in this encounter Care Teams Surgical Aide Relationship Specialty Start Date End Date Anuja Cai APRN [address] [place] [address] PCP - General Internal Medicine 07/25/21 documented as of this encounter
--- OUTSIDE RECORDS SUMMARY | 2024-07-12 18:10 | XMS_ITS | Encounter Summary ---
[place] [address] Care Team Providers Care Job Coaching Name Role Phone Anuja Cai APRN Primary Care Provider [phone] Reason for Referral * Allergy Testing (Routine) - Closed Specialty Diagnoses / Procedures Referred By Contmaya t Referred To Contact Allergy Diagnoses Other allergy status, other than to drugs and biological substances Allergy to other foods Anuja Cai APRN [address] [place] [address] [facility] [address] [place] [address] Referral ID Status Reason Start Date Expiration Date V isits Requested Visits Authorized [id number] Closed Consult, Test & Treat PCP Updated and/or Approved 11/24/2022 11/24/2023 6 6 Encounter Details Date Type Department Care Team (Latest Contact Info) Description 11/24/2022 Transcribe Orders eDH Incoming Referrals [phone] Anuja Cai APRN [address] [place], [place] [id number] Other allergy status, other than to drugs [...] 12:00 PM EDT Office [place] [address] Britt Zurita MD [facility] [place] [address] Scheduled Referrals Name Type Priority Associated Diagnoses Orde r Schedule Referral to Allergy Outpatient Referral Routine Other allergy status, other than to drugs and biological substances Allergy to other foods Ordered: 11/24/2022 documented as of this encounter Visit Diagnoses Diagnosis Other allergy status, other than to drugs and biological substances Allergy to other foods documented in this encounter Care Teams Job Coaching Relationship Specialty Start Date End Date Anuja Cai APRN [address] [place] [address] PCP - General Internal Medicine 07/25/21 documented as of this encounter
--- OUTSIDE RECORDS SUMMARY | 2024-07-12 18:10 | XMS_ITS | Encounter Summary ---
Author Organization [facility] Address [address] [place] [address] Care Team Providers Care Employee Services Manager Name Role Phone Ladonna Maurer Primary Care Provider [phone] Encounter Details Date Type Department Care Team (Late st Contact Info) Description 11/18/2004 Results Only [facility] Family Medicine [address] [address] Valeria Smith MD [address] [phone] Social History Tobacco Use Types Packs/Day Years [...] [facility] Rheumatology & Immunology - [address] [phone] Micaela Hoff MD [address] [facility], [address] [place] [address] documented as of this encounter [...] ? TERI CROWE ? Accession #: ? [id number] : ? 1980 (Age: 24) ??F ?Collect [...] Smith MD PATHOLOGY ORDERABLES [facility] [address] [place] [address] documented in this encounter Visit Diagnoses Not on filedocumented in this encounter Care Teams Employee Services Manager Relationship Specialty Start Date End Date Ladonna Maurer PA [address] [place] [address] PCP - General 05/20/10 06/02/11 documented as of this encounter
--- OUTSIDE RECORDS SUMMARY | 2024-07-12 18:10 | XMS_ITS | Clinical Summary ---
Author Organization [facility] [place] [address] Care Team Providers Care Concrete Swimming Pool Installer Name Role Phone Anuja Cai APRN Primary Care Provider [phone] Allergies Active Allergy Reactions Criticality Noted Date [...] 07/29/2021 Active fluticasone propionate (Flonase) 50 mcg/actuation [place], Suspension SPRAY ONE SPRAY IN EACH NOSTRIL [...] Care Team Description 04/18/2024 Refill [place] [address] Britt Zurita MD Polyarthralgia from Last 3 [...] PM EDT Office [place] [address] Britt Zurita MD [facility] [place] [address] Health Maintenance Due Date Last Done Comments Hepatitis C Screening 1999 Lipid Screening 1999 Hepatitis B vaccine (0-59 yr s) (1) 2000 Tdap adult 2000 Tetanus vaccine 2000 HPV test 04/14/2018 04/14/2013 PAP Smear 04/14/2018 04/14/2013 Breast Cancer Share Decision Needed 2021 Breast Cancer screening 2021 Covid-19 Vaccine (1 - 2022-2 4 season) 2024 Influenza (Flu) vaccine (1 o f 1 - Influenza standard series) 07/03/2024 Diabetes Screening (HgbA1C o r Glucose) 04/02/2026 04/02/2023, 08/23/2021, 02/22/2014, Additional history exists HIV screen Completed 04/27/2013 Procedures Procedure Name Priority Date/Time Associated Diagnosis Comments COMPREHENSIVE METABOLIC PANEL Routine 04/02/2023 11:00 AM EDT Polyarthralgia HIV SCREEN, 4TH GENERATION ([facility]/CGP/APD/[facility]) Routine 04/27/2013 2:31 PM EDT Fatigue Night sweats BLUEPRINT BLOCKER MOLECULAR GENETICS REPORT Routine 04/14/2013 3:59 PM EDT BLUEPRINT BLOCKER CYTOLOGY FINAL REPORT Routine 04/14/2013 3:59 PM EDT from Last 3 Months or Most Recently Relevant to Health Maintenance Results * Comprehensive metabolic panel (non-fasting) (04/02/2023 11:00 AM EDT) Glucose 95 65 - 199 mg/dL [facility] Comment:Diabetes: >=200 mg/d L plus symptoms Blood Urea Nitrogen 12 8 - 18 mg/dL [facility] Creatinine 0.93 0.70 - 1.20 mg/dL [facility] Sodium 138 135 - 145 mmol/L [facility] Potassium 3.8 3.5 - 5.0 mmol/L [facility] Comment: Please note: ??Patients with WBC >100,000 may have falsely elevated Potassium levels. ??For accurate Potassium quantification in these patients send serum separator tube (gold top) for subsequent determinations. ??Contact the Clinical Chemistry Laboratory if there are any questions. Chloride 101 98 - 107 mmol/L [facility] Carbon Dioxide 27 22 - 31 mmol/L [facility] Anion Gap 10 5 - 15 mmol/L [facility] Calcium 9.6 8.5 - 10.5 mg/dL [facility] Protein, Total 7.5 6.1 - 8.0 g/dL [facility] Albumin 4.7 3.2 - 5.2 g/dL [facility] Aspartate Aminotransferase 19 0 - 30 unit/L [facility] Alanine Aminotransferase 16 0 - 30 unit/L [facility] Alkaline Phosphatase 57 35 - 105 unit/L [facility] Bilirubin, Total 0.4 0.2 - 1.3 mg/dL [facility] Est Glomerular Filtration Rate 79 >=60 mL/min/1. 73 m?? [facility] Comment: This patient's estimated GFR [...] MD CHEMISTRY ORDERABLE S Performing Organization Address [facility] [place] [address] * HIV (04/27/2013 2:31 PM EDT) [facility] HIV 1/2 Ab Negative [facility] Blood specimen (specimen) 04/27/2013 2:31 PM EDT 04/27/2013 2:38 PM EDT Narrative Resulting Agency Comment Spec In Lab Anila Serna MD CHEMISTRY ORDERABLE S Performing Organization Address [facility] Co de Phone Number [facility] * BLUEPRINT BLOCKER Molecular Genetics Report (04/14/2013 3:59 PM EDT) [facility] BLUEPRINT BLOCKER Molecular Genetics Report ? [facility] ? Provider: ?? LIYA SILVA Pt. Name: ?? TERI CROWE ? Acc #: ?[id number] ?Pt. ? Col Date: ?? 04/14/2013 ? [...] Based Prep ? Reviewed by: ??Willian Marroquin, [facility] ? A ?VCELD Vag/Cerv/Endo/L BP/Diagnostic ? B ?HPVDO Do HPV Testing ? Verified date: ??04/21/13 ??ABH ? Verified by: ?Lab Review, Molecular Genetics ? (Electronic Signature) RUBEN BENNETT 04/14/2013 3:59 PM EDT Liya Silva PRESS FEEDER PATHOLOGY/CYTOLO GY ORDERABLES RUBEN BENNETT * Bioinformatics Engineer Cytology Final Report (04/14/2013 3:59 PM EDT) Bioinformatics Engineer Cytology Final Report ? [facility] ? Provider: ?? LIYA SILVA Pt. Name: ?? TERI CROWE ? Acc #: ?[id number] ?Pt. ? Col Date: ?? 04/14/2013 ? /Sex: ?1980,(33 years),Female ? Rec Date: ?? 04/14/2013 ? LOC: ?HPN ? CYTOPATHOLOGY: ??BLUEPRINT BLOCKER ? ---Adequacy--- ? Specimen submitted is satisfactory [...] ? These guidelines were published in the [place] Journal of Obstetrics and ? Gynecology (2007;197(4):346-3 55). ? 04/21/13 ?? Screened by: ??SLA ??STRATEGIC INTELLIGENCE OFFICER ? 04/22/13 ?? Verified by: ??BELKYS OCONNELL MD - Pathologist ? ---Comment--- ? Please also see concurrent HPV test result. ? ---Clinical Information--- ? HPV Option: ? Concurrent HPV ? Preparation: ?Liquid Based Pap ? Specimen Source: ?Vag/Cerv/Endo/LB P/Diagnostic ? LMP: ?04/03/13 ? Hormones?: ?No ? Hysterectomy?: ?No ?: ?No ?: ?No ? I.U.D.?: ?No ? Pelvic Radiation: ? No ? Prior BLUEPRINT BLOCKER Therapy?: ? Other (comment) ? Hist Abnl Pap/Biopsy?: ??Yes, history of previous abnormal Pap ? Hist of HPV Vaccine?: ?? No ? Hist of Smoking?: ? Yes ? [facility] ? Provider: ?? LIYA SILVA Pt. Name: ?? TERI CROWE ? Acc #: ?[id number] ?Pt. ? Col Date: ?? 04/14/2013 ? /Sex: ?1980,(33 years),Female ? Rec Date: ?? 04/14/2013 ? LOC: ?HPN ? CYTOPATHOLOGY: ??BLUEPRINT BLOCKER ? Hist of MAR exposure?: ??No ? Clinical Data, Significant Therapy and Clinical Impression: ? This Pap Test has been evaluated with the assistance of the ThinPrep Pap ? Test Imaging System. ? Note: ? The Pap test is a screening test for cervical cancer with an inherent ? false-negative rate dependent upon several variables. ??For further ? information please contact the [facility] Laboratory. ? Reference: ??Julianne SINGH. ??Armhole Raiser Lockstitch of Pap Smear Results. ??In: ? Suri BS, Silvestre HH, ed. ??The Pap Smear. ??[place]: ??Willian, 2002: ? 71-77. RUBEN BENNETT 04/14/2013 3:59 PM EDT Liya Silva PRESS FEEDER PATHOLOGY/CYTOLO GY ORDERABLES RUBEN BENNETT from Last 3 Months or Most Recently Relevant to Health Maintenance Care Teams Concrete Swimming Pool Installer Relationship Specialty Start Date End Date Anuja Cai APRN [address] [place], [place] [id number] PCP - General Internal Medicine 07/25/21
--- OUTSIDE RECORDS SUMMARY | 2024-07-12 18:10 | XMS_ITS | Encounter Summary ---
Author Organization [facility] Address [facility] [place] [address] Care Team Providers Care Strategic Planning Specialist Name Role Phone Anuja Cai APRN Primary Care Provider [phone] Encounter Details Date Type Department Care Team [...] 12:00 PM EDT [place] [address] Britt Zurita MD [facility] [place] [address] documented as of this encounter Visit Diagnoses Not on filedocumented in this encounter Care Teams Strategic Planning Specialist Relationship Specialty Start Date End Date Anuja Cai APRN [address] [place], [place] [id number] PCP - General Internal Medicine 07/25/21 documented as of this encounter
--- OUTSIDE RECORDS SUMMARY | 2024-07-12 18:10 | XMS_ITS | Encounter Summary ---
Author Organization [facility] [place] [address] Care Team Providers Care Cork Grinder Name Role Phone Anuja Cai APRN Primary Care Provider + [phone] Reason for Visit * Consultation (Routine) - Closed Specialty Diagnoses / Procedures Referred By Ehsan patel Referred To Contact Rheumatology Diagnoses Arthralgia, unspecified joint Other chronic pain Other fatigue Other specified abnormal immunological findings in serum Anuja Cai APRN [address] [place] [address] [facility] [address] [place] [address] Referral ID Status Reason Start Date Expiration Date V isits Requested Visits Authorized [id number] Closed Consult, Test & Treat PCP Updated and/or Approved 02/17/2023 02/17/2024 6 6 Encounter Details Date Type Department Care Team (Late st Contact Info) Description 04/02/2023 10:00 AM EDT Office [place] [address] Britt Zurita MD [facility] [place] [address] Polyarthralgia Social History Tobacco Use [...] and she went to a hospital in [place], [place] and she was diagnosed with 'bursitis'. [...] DIAGNOSTIC performed by Guilherme Rock MD at [facility] ??? PRO UPPER GI ENDOSCOPY, BIOPSY N/A 09/30/2021 EGD WITH BIOPSY (WRVU 2.49) performed by Guilherme Rock MD at [facility] ??? UTERINE FIBROID SURGERY ??? [...] rheumatoid factor and ELVIN level. -Check LIZZIE, ROMAIRO, antidouble-stranded DNA antibody, C3, C4, antiphospholipid antibodies, UA and urine protein/creatinine ratio. Follow-up in 2 weeks. Total time spent on counseling and coordination of care was 60 minutes. Britt Zurita [place], [address] CC: Anuja Cai APRN documented in this encounter Plan of Treatment Upcoming Encounters Date Type Department Care Team (Late st Contact Info) Description 08/17/2024 12:00 PM EDT Office [place] [address] Britt Zurita MD [facility] [address] documented as of this encounter Procedures Procedure [...] RefValue ------- Porphyrins, QN, Random, U ??Uroporphyrin, [place] ?3 ? nmol/L ?? <=30 ??Heptacarboxylpor phyrins [...] developed and its performance characteristics ?determined by [facility] in a manner consistent with CLIA ?requirements. This test has not been cleared or approved by ?the U.S. Food and Drug Administration. ?Test Performed by: ?[facility] ?[address] [id number] ?Pediatrics Teacher: Vimal Torrez M.D. Ph.D.; CLIA# [id number] [facility] Urine 04/02/2023 11:0 5 AM EDT 04/02/2023 4:37 PM EDT Narrative Resulting Agency Comment Spec In Lab Britt Zurita MD LAB SEND OUT ORDERA BLES Performing Organization Address [facility] Co de Phone Number [facility] [place] [address] * Protein/Creatinine Ratio, urine (04/02/2023 11:05 AM EDT) Creatinine, Urine 166 mg/dL [facility] Protein, Urine <6 0 - 12 mg/dL [facility] Protein / Creatinine Ratio, Urine <0.1 ratio [facility] Urine 04/02/2023 11:0 5 AM EDT 04/02/2023 11:18 AM EDT Narrative Resulting Agency Comment Spec In Lab Britt Zurita MD URINE ORDERABLES Performing Organization Address [facility] Co de Phone Number [facility] [place] [address] * (ABNORMAL) Urinalysis with reflex Culture (04/02/2023 11:05 AM EDT) Glucose, Urine Dipstick Negative Negative mg/dL [facility] Protein, Urine Dipstick Negative Negative mg/dL [facility] Bilirubin, Urine Dipstick Negative Negative mg/dL [facility] Comment: Clinical correlation required for positive Urine Bilirubin results as false positive may occur with some drugs and drug related products. If a false positive is suspected a serum total bilirubin should be considered if clinically indicated. Urobilinogen, Urine Dipstick Normal Normal mg/dL [facility] pH, Urn (dipstick) 5.5 5.0 - 8.0 [facility] Blood, Urine Dipstick Negative Negative mg/dL [facility] Ketone, Urine Dipstick Trace(A) Negative mg/dL [facility] Nitrite, Urine Dipstick Negative Negative [facility] Leukocytes, Urine Dipstick Negative Negative mcL [facility] Appearance, Urine Dipstick Clear Clear [facility] Specific Reliance Urine Automated 1.020 1.005 - 1.030 [facility] Color, Urine Dipstick Yellow Yellow [facility] Reflex to Culture No [facility] Urine NS 04/02/2023 11:0 5 AM EDT 04/02/2023 11:17 AM EDT Narrative Resulting Agency Comment Spec In Lab Britt Zurita MD URINE ORDERABLES Performing Organization Address [facility] [place] [address] * (ABNORMAL) Silica Clotting Time (04/02/2023 11:00 AM EDT) Silica Clotting Time 1.37(H) <=1.19 ratio [facility] Comment: A result greater than 1.20 [...] MD HEMATOLOGY ORDERABL ES Performing Organization Address [facility] Co de Phone Number [facility] [place] [address] * dRVVT (04/02/2023 11:00 AM EDT) dRVVT 0.99 <=1.19 IU/mL [facility] Comment: A result greater than 1.20 [...] MD HEMATOLOGY ORDERABL ES Performing Organization Address [facility] Co de Phone Number [facility] [address] * Lyme IgG & IgM Antibody (04/02/2023 11:00 AM EDT) [facility] Lyme Antibody Negative Negative [facility] Lyme Ab Comment Negative result does not exclude possibility of infection. [facility] Comment: Please note that as of 03/10/2023 that this testing is performed by the [facility] [place] [facility] This change in testing location is associated with a change in testing methodology. Blood 04/02/2023 11:0 0 AM EDT 04/02/2023 12:52 PM EDT Narrative Resulting Agency Comment Spec In Lab Britt Zurita MD IMMUNOLOGY ORDERABL ES Performing Organization Address [facility] Co de Phone Number [facility] [place] [address] * (ABNORMAL) Angiotensin Converting Enzyme (04/02/2023 11:00 AM EDT) Pathologist [facility] Elvin (MARCH) 14(L) 16 - 85 unit/L [facility] Comment: Test Performed by: [address] [address] Pediatrics Teacher: Vimal Torrez M.D. Ph.D.; CLIA# [id number] Blood 04/02/2023 11:0 0 AM EDT 04/02/2023 3:35 PM EDT Narrative Resulting Agency Comment Spec In Lab Britt Zurita MD LAB SEND OUT ORDERA BLES Performing Organization Address [facility]/ZIP Co de Phone Number [facility] [place] [address] * (ABNORMAL) Rheumatoid factor, quant (04/02/2023 11:00 AM EDT) Rheumatoid Factor 17(H) <=14 IU/mL [facility] Blood 04/02/2023 11:0 0 AM EDT 04/02/2023 11:06 AM EDT Narrative Resulting Agency Comment Spec In Lab Britt Zurita MD CHEMISTRY ORDERABLE S Performing Organization Address [facility] Co de Phone Number [facility] [place] [address] * Beta-2 glycoprotein antibodies (04/02/2023 11:00 AM EDT) Beta 2 Glycoprotein, IgG <0.8 <=6.9 unit/mL [facility] Beta 2 Glycoprotein, IgM <2.4 <=6.9 unit/mL [facility] Blood 04/02/2023 11:0 0 AM EDT 04/02/2023 12:52 PM EDT Narrative Resulting Agency Comment Spec In Lab Britt Zurita MD IMMUNOLOGY ORDERABL ES Performing Organization Address [facility] Co de Phone Number [facility] [place] [address] * Cardiolipin Antibody Screen (04/02/2023 11:00 AM EDT) Cardiolipin Antibody IgG <0.5 <=9.9 GPL-U/mL [facility] Cardiolipin Antibody IgM 2.0 <=9.9 MPL-U/mL [facility] Blood 04/02/2023 11:0 0 AM EDT 04/02/2023 12:52 PM EDT Narrative Resulting Agency Comment Spec In Lab Britt Zurita MD IMMUNOLOGY ORDERABL ES Performing Organization Address [facility] Co de Phone Number [facility] [place] [address] * (ABNORMAL) CRP, acute inflammation (04/02/2023 11:00 AM EDT) C-Reactive Protein 9.9(H) <=4.9 mg/L [facility] Blood 04/02/2023 11:0 0 AM EDT 04/02/2023 11:06 AM EDT Narrative Resulting Agency Comment Spec In Lab Britt Zurita MD CHEMISTRY ORDERABLE S Performing Organization Address [facility] Co de Phone Number [facility] [place] [address] * Sedimentation rate (04/02/2023 11:00 AM EDT) Sedimentation Rate Automated 32 2 - 37 mm/hr [facility] Comment: Effective October 12, 2019 new capillary photometric technology has resulted in a change in reference ranges. It is recommended that each ESR result be reviewed with its own age appropriate reference range. Blood 04/02/2023 11:0 0 AM EDT 04/02/2023 11:06 AM EDT Narrative Resulting Agency Comment Spec In Lab Britt Zurita MD HEMATOLOGY ORDERABL ES Performing Organization Address [facility] Co de Phone Number [facility] [place] [address] * (ABNORMAL) C4 Complement (04/02/2023 11:00 AM EDT) Complement C4 45(H) 10 - 40 mg/dL [facility] Blood 04/02/2023 11:0 0 AM EDT 04/02/2023 11:06 AM EDT Narrative Resulting Agency Comment Spec In Lab Britt Zurita MD CHEMISTRY ORDERABLE S Performing Organization Address [facility] Co de Phone Number [facility] [place] [address] * C3 Complement (04/02/2023 11:00 AM EDT) Complement C3 168 90 - 180 mg/dL [facility] Blood 04/02/2023 11:0 0 AM EDT 04/02/2023 11:06 AM EDT Narrative Resulting Agency Comment Spec In Lab Britt Zurita MD CHEMISTRY ORDERABLE S [facility] [place] [address] * Comprehensive metabolic panel (non-fasting) (04/02/2023 11:00 AM EDT) Glucose 95 65 - 199 mg/dL [facility] Comment:Diabetes: >=200 mg/d L plus symptoms Blood Urea Nitrogen 12 8 - 18 mg/dL [facility] Creatinine 0.93 0.70 - 1.20 mg/dL [facility] Sodium 138 135 - 145 mmol/L [facility] Potassium 3.8 3.5 - 5.0 mmol/L [facility] Comment: Please note: ??Patients with WBC >100,000 may have falsely elevated Potassium levels. ??For accurate Potassium quantification in these patients send serum separator tube (gold top) for subsequent determinations. ??Contact the Clinical Chemistry Laboratory if there are any questions. Chloride 101 98 - 107 mmol/L [facility] Carbon Dioxide 27 22 - 31 mmol/L [facility] Anion Gap 10 5 - 15 mmol/L [facility] Calcium 9.6 8.5 - 10.5 mg/dL [facility] Protein, Total 7.5 6.1 - 8.0 g/dL [facility] Albumin 4.7 3.2 - 5.2 g/dL [facility] Aspartate Aminotransferase 19 0 - 30 unit/L [facility] Alanine Aminotransferase 16 0 - 30 unit/L [facility] Alkaline Phosphatase 57 35 - 105 unit/L [facility] Bilirubin, Total 0.4 0.2 - 1.3 mg/dL [facility] Est Glomerular Filtration Rate 79 >=60 mL/min/1. 73 m?? [facility] Comment: This patient's estimated GFR was [...] MD CHEMISTRY ORDERABLE S Performing Organization Address City/State/[facility] Co de Phone Number [facility] [place] [address] * (ABNORMAL) LIZZIE Ab by IFA (04/02/2023 11:00 AM EDT) LIZZIE Ab Screen Test ?Result ? Flag ??Unit ??RefValue Antinuclear Ab, HEp-2 Substrate, ?Positive 1:320 ??@ ?<1:80 (Negative) ??S ? ADDITIONAL INFORMATION --------- ?Method: Immunofluorescence using HEp-2 cellular substrate. ??LIZZIE Titer: ?1:320 ??LIZZIE Pattern: ?Dense Fine Speckled ?Test Performed by: ?[facility] ?[address] [place] [address] ?Pediatrics Teacher: Vimal Torrez M.D. Ph.D.; CLIA# [id number] ([id number]) [facility] Blood 04/02/2023 11:0 0 AM EDT 04/02/2023 3:35 PM EDT Narrative Resulting Agency Comment Spec In Lab Britt Zurita MD CHEMISTRY ORDERABLE S [facility] [address] [place] [address] * Extractable Nuclear Antigen (ROMARIO) Ab (04/02/2023 11:00 AM EDT) SS-A/Ro Ab <0.40 <=10.00 unit/mL [facility] Comment: <7 negative 7-10 equivocal >10 positive The SS-A antibody result was generated using fluoroenzyme immunoassay on the Phadia 250 analyzer. the semi-quantitative test is designed to detect IgG antibodies in human serum that are reactive to the SS-A (Ro) protein. Please note that as of 08/26/2022 that this testing is performed by the [facility] [place] [facility] This change in testing location is associated with a change in testing method and reference intervals. Please review the results of this test in association with the posted reference intervals. SS-B/La Ab <0.40 <=10.00 unit/mL [facility] Comment: <7 negative 7-10 equivocal >10 positive The SS-B antibody result was generated using fluoroenzyme immunoassay on the Phadia 250 analyzer. the semi-quantitative test is designed to detect IgG antibodies in human serum that are reactive to the SS-B (La) protein. Please note that as of 08/26/2022 that this testing is performed by the [facility] at [facility] This change in testing location is associated with a change in testing method and reference intervals. Please review the results of this test in association with the posted reference intervals. Scl-70 Ab <0.60 <=10.00 unit/mL [facility] Comment: <7 negative 7-10 equivocal >10 positive The Scl-70 antibody result was generated using fluoroenzyme immunoassay on the Phadia 250 analyzer. the semi-quantitative test is designed to detect IgG antibodies in human serum that are reactive to the Scl-70 protein. Please note that as of 08/26/2022 that this testing is performed by the [facility] at [facility] This change in testing location is associated with a change in testing method and reference intervals. Please review the results of this test in association with the posted reference intervals. Sm (Bowen) Ab 0.90 <=10.00 unit/mL [facility] Comment: <7 negative 7-10 equivocal >10 positive The Sm antibody result was generated using fluoroenzyme immunoassay on the Phadia 250 analyzer. the semi-quantitative test is designed to detect IgG antibodies in human serum that are reactive to the Sm protein. Please note that as of 08/26/2022 that this testing is performed by the [facility] at [facility] This change in testing location is associated with a change in testing method and reference intervals. Please review the results of this test in association with the posted reference intervals. U1RNP Ab <0.50 <=10.00 unit/mL [facility] Comment: <5 negative 5-10 equivocal >10 positive The U1RNP antibody result was generated using fluoroenzyme immunoassay on the Phadia 250 analyzer. the semi-quantitative test is designed to detect IgG antibodies in human serum that are reactive to the U1RNP protein. Please note that as of 08/26/2022 that this testing is performed by the [facility] at [facility] This change in testing location is associated with a change in testing method and reference intervals. Please review the results of this test in association with the posted reference intervals. Centromere Ab <0.40 <=10.00 unit/mL [facility] Comment: <7 negative 7-10 equivocal >10 positive The CENP antibody result was generated using fluoroenzyme immunoassay on the Phadia 250 analyzer. the semi-quantitative test is designed to detect IgG antibodies in human serum that are reactive to the Centromere B protein. Please note that as of 08/26/2022 that this testing is performed by the [facility] Laboratory at [facility]. This change in testing location is associated with a change in testing method and reference intervals. Please review the results of this test in association with the posted reference intervals. Mandi-1 Ab <0.30 <=10.00 unit/mL [facility] Comment: <7 negative 7-10 equivocal >10 positive The Mandi-1 antibody result was generated using fluoroenzyme immunoassay on the Phadia 250 analyzer. the semi-quantitative test is designed to detect IgG antibodies in human serum that are reactive to the Mandi-1 protein. Please note that as of 08/26/2022 that this testing is performed by the [facility] Laboratory at [facility] This change in testing location is associated with a change in testing method and reference intervals. Please review the results of this test in association with the posted reference intervals. Blood 04/02/2023 11:0 0 AM EDT 04/02/2023 12:52 PM EDT Narrative Resulting Agency Comment Spec In Lab Britt Zurita MD LAB SEND OUT [place] [facility] [address] * DNA Antibody (Double-Stranded) (04/02/2023 11:00 AM EDT) dsDNA Ab <0.6 <=15.0 IU/mL [facility] Comment: <10 negative 10-15 equivocal >15 [...] performed by the [facility] at [facility]. This change in testing location is associated with a change is testing method and reference intervals. Please review the results of this test in association with the posted reference intervals. Blood 04/02/2023 11:0 0 AM EDT 04/02/2023 12:52 PM EDT Narrative Resulting Agency Comment Spec In Lab Britt Zurita MD LAB SEND OUT [place] [facility] [address] documented in this encounter Visit Diagnoses Diagnosis Polyarthralgia Pain in joint, multiple sites documented in this encounter Care Teams Cork Grinder Relationship Specialty Start Date End Date Anuja Cai APRN [address] [place] [address] PCP - General Internal Medicine 07/25/21 documented as of this encounter
--- OUTSIDE RECORDS SUMMARY | 2024-07-12 18:10 | XMS_ITS | Encounter Summary ---
[place] [address] Care Team Providers Care Sports Equipment Racker Name Role Phone TrellUbaldoe Barbara ENCINAS Primary Care Provider + [phone] Encounter Details Date Type Department Care Team (Late Contact Info) Description 08/04/2022 Telephone [place] [address] Deja Gonzales Social History Tobacco Use Types [...] calls can be handled by: [employer] Monitor documented in this encounter Plan of Treatment Upcoming Encounters Date Type Department Care Team (Late Contact Info) Description 08/17/2024 12:00 PM EDT Office [place] [address] Britt Zurita MD [facility] [place] [address] documented as of this encounter Visit Diagnoses Not on filedocumented in this encounter Care Teams Sports Equipment Racker Relationship Specialty Start Date End Date Anuja Cai APRN [address] [place] [address] PCP - General Internal Medicine 07/25/21 documented as of this encounter
--- OUTSIDE RECORDS SUMMARY | 2024-07-12 18:10 | XMS_ITS | Encounter Summary ---
Author Organization [facility] [place] [address] Care Team Providers Care Unit Supervisor Name Role Phone Anuja Cai APRN Primary Care Provider + [phone] Encounter Details Date Type Department Care Team ([facility] st Contact Info) Description 04/16/2023 8:00 AM EDT TH Visit (TeleHealth) [place] [id number] Britt Zurita MD [facility] [place] [address] Polyarthralgia Social History Tobacco Use Types Packs/Day [...] time: 30 minutes Britt Zurita [place], [address] documented in this encounter Plan of Treatment Upcoming Encounters Date Type Department Care Team (Late st Contact Info) Description 08/17/2024 12:00 PM EDT Office [place] [address] Britt Zurita MD [facility] [place] [address] [place] [address] documented as of this encounter Visit Diagnoses Diagnosis Polyarthralgia Pain in joint, multiple sites documented in this encounter Care Teams Unit Supervisor Relationship Specialty Start Date End Date Anuja Cai, DISBURSEMENT CLERK [address] [place] [address] PCP - General Internal Medicine 07/25/21 documented as of this encounter
--- OUTSIDE RECORDS SUMMARY | 2024-07-12 18:10 | XMS_ITS | Encounter Summary ---
Author Organization [facility] Address [facility] [place] [address] Care Team Providers Care Sales Associate Cashier Name Role Phone TrellAnuja APRN Primary Care Provider [phone] Encounter Details Date Type Department Care Team (Latest Contact Info) Description 02/16/2024 11:32 AM EDT - 02/16/2024 11:59 PM EDT Hospital Encounter XRay at [address] [place] [address] Britt Zurita MD [facility] [place] [place] [address] Polyarthralgia Discharge Disposition: Home Social History Tobacco [...] 02/16/24 07/29/2021 fluticasone propionate (Flonase) 50 mcg/actuation [place], Suspension SPRAY ONE SPRAY IN EACH NOSTRIL [...] 12:00 PM EDT Office [place] [address] Britt Zurita MD [facility] [place] [address] documented as of this encounter Procedures Procedure [...] who have questions please contact the health managed care analyst that requested your imaging first. ? Electronically signed by: Rebecca Escalera MD, [facility] ([phone]), at 02/16/2024 3:49 PM Narrative 02/16/2024 3:49 [...] sites documented in this encounter Care Teams Sales Associate Cashier Relationship Specialty Start Date End Date Anuja Cai, SUGAR CONTROLLER [address] [place] [address] PCP - General Internal Medicine 07/25/21 documented as of this encounter
--- OUTSIDE RECORDS SUMMARY | 2024-07-12 18:10 | XMS_ITS | Encounter Summary ---
Author Organization Health system Address [address] [place] [address] Care Team Providers Care Pipe Stem Repairer Name Role Phone Unavailable Primary Care Provider Unavailabl e Encounter Details Date Type Department Care Team (Latest Contact Info) Description 02/24/2002 12:05 EDT Hospital Encounter [facility] - Other [address] [place] [address] Ashley Cerrato FNP [address] [place] [id number] Unknown, Provider, Discharge Disposition: Auto Discharge Social [...] [facility] Rheumatology & Immunology - [facility] [address] [place] [address] Micaela Hoff MD [address] [facility], Level 5 [place] [phone] documented as of this encounter Procedures Procedure [...] cancers. [facility] Report Status Final [id number] [facility] 02/24/2002 10:2 6 EDT 03/07/2002 10:26 EDT Ashley DOVE MICROBIOLOGY - GENER AL ORDERABLES Performing Organization Address City/State/[facility] Co de Phone Number [facility] [address] [place] [address] * CYTOPATHOLOGY (02/24/2002 0:00 EDT) Pathology Report: CYTOPATHOLOGY REPORT Reports generated via electronic interface contain original data; however they are lacking the format of the original report. Caution should be taken when reading/interpreti ng unformatted reports. Name: ? JAYA TERI Sayda ? Accession #: ? [id number] : ? 1980 (Age: 21) ??F ?Collect Date: ? 02/24/2002 Location: ? [facility] ? Receive Date: ? 02/28/2002 Provider: ?ASHLEY NELLY PROM BURN OFF OPERATOR Copy to: ? [facility] ? [place] [facility] ? [address] ? [place] [address] ? Specimen/Source: ?ThinPrep Pap Test, Cervix Last [...] Report JENIFER TIJERINA 02/24/2002 02/28/2002 Ashley Cerrato PROM BURN OFF OPERATOR PATHOLOGY ORDERABLES Performing Organization Address City/State/[facility] Co de Phone Number JENIFER TIJERINA [address] [place] [address] documented in this encounter Visit Diagnoses Not on filedocumented in this encounter
--- OUTSIDE RECORDS SUMMARY | 2024-07-12 18:10 | XMS_ITS | Encounter Summary ---
Author Organization [facility] [place] [address] Care Team Providers Care Range Mechanic Name Role Phone Anuja Cai APRN Primary Care Provider [phone] Encounter Details Date Type Department Care Team (Late st Contact Info) Description 12/24/2022 Ancillary Procedure [place] [phone] Anuja Cai APRN [address] [place] [address] Social History Tobacco Use Types Packs/Day Years [...] 12:00 PM EDT Office Visit [place] [phone] Britt Zurita MD [facility] [address] [place], [place] [phone] documented as of this encounter Procedures Procedure Name Priority Date/Time Associated Diagnosis Comments FILM LIBRARY STORAGE ONLY MR KNEE Routine 12/24/2022 12:00 AM EST documented in this encounter Results * Film Library- Storage Only MR Knee (12/24/2022 12:00 AM EST) Narrative [facility] - 02/02/2023 10:14 PM EDT This exam is auto-finalizing. It's purpose is for storage only. Anuja Cai APRN Fanny FILM LIBRARY ORD ERABLES Performing Organization Address City/State/[facility] Co de Phone Number [place], [place] documented in this encounter Visit Diagnoses Not on filedocumented in this encounter Care Teams Range Mechanic Relationship Specialty Start Date End Date Anuja Cai APRN [address] [place] [address] PCP - General Internal Medicine 07/25/21 documented as of this encounter
--- OUTSIDE RECORDS SUMMARY | 2024-07-12 18:10 | XMS_ITS | Encounter Summary ---
Author Organization [facility] [place] [address] Care Team Providers Care Adjunct Professor Of English Name Role Phone Anuja Cai APRN Primary Care Provider [phone] Encounter Details Date Type Department Care Team (Late st Contact Info) Description 11/28/2022 Ancillary Procedure [place] [phone] Anuja Cai APRN [address] [place] [address] Social History Tobacco Use Types Packs/Day Years [...] PM EDT Office [place] [phone] Britt Zurita MD [facility] [address] [place], [place] [phone] documented as of this encounter Procedures Procedure Name Priority Date/Time Associated Diagnosis Comments FILM LIBRARY STORAGE ONLY DX KNEE Routine 11/28/2022 12:00 AM EST documented in this encounter Results * Film Library- Storage Only DX Knee (11/28/2022 12:00 AM EST) Narrative [facility] - 02/02/2023 10:20 PM EDT This exam is auto-finalizing. It's purpose is for storage only. Anuja Cai APRN Fanny FILM LIBRARY ORD ERABLES Performing Organization Address City/State/[facility] Co de Phone Number [place], [place] documented in this encounter Visit Diagnoses Not on filedocumented in this encounter Care Teams Adjunct Professor Of English Relationship Specialty Start Date End Date Anuja Cai APRN [address] [place] [address] PCP - General Internal Medicine 07/25/21 documented as of this encounter
--- OUTSIDE RECORDS SUMMARY | 2024-07-12 18:10 | XMS_ITS | Encounter Summary ---
[place] [address] Care Team Providers Care Case Assistant Name Role Phone Anuja Cai APRN Primary Care Provider [phone] Reason for Referral * Consultation (Routine) - Closed Specialty Diagnoses / Procedures Referred By Contmaya t Referred To Contact Weight and Wellness Diagnoses Obesity, unspecified classification, unspecified obesity type, unspecified whether serious comorbidity present Obstructive sleep apnea (adult) (pediatric) Anuja Cai APRN [address] [place] [address] [facility] [place] [address] Referral ID Status Reason Start Date Expiration Date V isits Requested Visits Authorized [id number] Closed Consult, Test & Treat 11/24/2022 11/24/2023 6 6 Encounter Details Date Type Department Care Team (Latest Contact Info) Description 11/24/2022 Transcribe Orders eDH Incoming Referrals [phone] Anuja Cai APRN [address] [place], [place] [phone] Obesity, unspecified classification, unspecified obesity type, unspecified [...] 12:00 PM EDT Office [place] [address] Britt Zurita MD [facility] [place] [address] Scheduled Referrals Name Type Priority Associated Diagnoses [...] (pediatric) documented in this encounter Care Teams Case Assistant Relationship Specialty Start Date End Date Anuja Cai APRN [address] [facility] [place] [address] PCP - General Internal Medicine 07/25/21 documented as of this encounter
--- OUTSIDE RECORDS SUMMARY | 2024-07-12 18:10 | XMS_ITS | Encounter Summary ---
Author Organization [facility] Address [address] [place] [address] Care Team Providers Care Teletypewriter Operator Name Role Phone Unavailable Primary Care Provider Unavailabl e Encounter Details Date Type Department Care Team (Late st Contact Info) Description 11/18/2004 13:04 EST Hospital Encounter [facility] - Other [address] [place], [place] [address] Gustavo Smith MD [address] [phone] Social History Tobacco Use Types Packs/Day Years [...] [facility] Rhe[facility] Immunology - [facility] [address] [place], [place] [phone] Micaela Hoff MD [address] [facility], [facility], [address] [place] [address] documented as of this encounter Visit Diagnoses Not on filedocumented in this encounter Additional Health Concerns Infection Onset Date Last Indicated Resolved Time 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
--- OUTSIDE RECORDS SUMMARY | 2024-07-12 18:10 | XMS_ITS | Encounter Summary ---
Author Organization [facility] [place] [address] Care Team Providers Care Automatic Mounter Name Role Phone Anuja Cai APRN Primary Care Provider [phone] Encounter Details Date Type Department Care Team (Late st Contact Info) Description 05/28/2022 Ancillary Procedure [place] [phone] Anuja Cai APRN [address] [place] [address] Social History Tobacco Use Types Packs/Day Years [...] 12:00 PM EDT Office Visit [place] [phone] Britt Zurita MD [facility] [address] [place], [place] [address] documented as of this encounter Procedures Procedure Name Priority Date/Time Associated Diagnosis Comments FILM LIBRARY STORAGE ONLY DX HIP Routine 05/28/2022 12:00 AM EDT documented in this encounter Results * Film Library- Storage Only DX Hip (05/28/2022 12:00 AM EDT) Narrative [facility] - 02/02/2023 10:22 PM EDT This exam is auto-finalizing. It's purpose is for storage only. Anuja Cai APRN Fanny FILM LIBRARY ORD ERABLES Performing Organization Address City/State/[facility] Co de Phone Number [place], [place] documented in this encounter Visit Diagnoses Not on filedocumented in this encounter Care Teams Automatic Mounter Relationship Specialty Start Date End Date Anuja Cai APRN [address] [place] [address] PCP - General Internal Medicine 07/25/21 documented as of this encounter
--- OUTSIDE RECORDS SUMMARY | 2024-07-12 18:11 | XMS_ITS | Encounter Summary ---
Author Organization [facility] [place] [address] Care Team Providers Care Cement Or Concrete Finishing Supervisor Name Role Phone Unavailable Primary Care Provider Unavailabl e Reason for Visit * Reason Comments Otalgia Encounter Details Date Type Department Care Team ([facility] st Contact Info) Description 04/20/2013 7:31 AM EDT - 04/20/2013 7:49 AM EDT [place] [address] Ilia Johnson MD [facility] [place] [address] Acute serous otitis media (Primary Dx) Discharge [...] twice a day x3 days. Oral decongestants [id number]. Followup with primary care physician if no [...] 12:00 PM EDT [place] [address] Britt Zurita MD [facility] [place] [address] documented as of this encounter Visit Diagnoses Diagnosis Acute serous otitis media- Primary documented in this encounter
--- OUTSIDE RECORDS SUMMARY | 2024-07-12 18:11 | XMS_ITS | Encounter Summary ---
Author Organization [facility] [place] [address] Care Team Providers Care Shale Miner Name Role Phone Anuja Cai APRN Primary Care Provider [phone] Encounter Details Date Type Department Care Team (Latest Contact Info) Description 09/30/2021 12:02 PM EST - 09/30/2021 2:41 PM EST Hospital En[place] [address] Guilherme Rock MD [facility] [place] [place] [address] Discharge Disposition: Home Social History Tobacco Use [...] the day after the procedure, use an uelt-gpt-jdrftre spray to numb your throat. Sucking on [...] occurs, please contact your Doctor. Please call [phone] before 8pm Mon-Fri with problems, questions or concerns. If you call after 8pm or on weekends, call the Hospital at [phone] and ask to speak to the Commercial Leasing Agent wellness consultant and the dielectric machine operator will contact that person for you. When should you call for help? Call [phone] anytime you think you may need emergency [...] Where can you learn more? [facility] View your After Visit Summary and more online at [email or web address] If you would like to provide feedback about your hospital experience, please call the Office of Patient and Family Relations at . If you have received this After Visit Summary in error, please immediately return it in person to the department, or notify the [facility] Privacy Office by calling toll free at between the hours of 8AM and 5PM to arrange for our retrieval of the documents at no cost to you. Content Version: 12.2 ?? 7912-4578 [employer]. Care instructions adapted under license by [facility]. If you have questions about a medical condition or this instruction, always ask your healthcare professional. [employer] disclaims any warranty or liability for your [...] occurs, please contact your Doctor. Please call [phone] before 8pm Mon-Fri with problems, questions or concerns. If you call after 8pm or on weekends, call the Hospital at [phone] and ask to speak to the Commercial Leasing Agent wellness consultant and the dielectric machine operator will contact that person for you. When should you call for help? Call [phone] anytime you think you may need emergency [...] Where can you learn more? [facility] View your After Visit Summary and more online at [email or web address] If you would like to provide [...] cost to you. Content Version: 12.2 ?? 9419-5028 [employer]. Care instructions adapted under license by [facility]. If you have questions about a medical condition or this instruction, always ask your healthcare professional. [employer] disclaims any warranty or liability for your [...] 02/16/24 07/29/2021 fluticasone propionate (Flonase) 50 mcg/actuation [place], Suspension SPRAY ONE SPRAY IN EACH NOSTRIL [...] Mena thyroiditis Z86.39 ??? Abnormal Pap smear [id number] ??? 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 EXAM: HEENT: [...] 12:00 PM EDT [place] [address] Britt Zurita MD [facility] [place] [address] documented as of this encounter Procedures Procedure Name Priority Date/Time Associated Diagnosis Comments SPECIMEN TO PATHOLOGY Routine 09/30/2021 1:46 PM EST SPECIMEN TO PATHOLOGY Routine 09/30/2021 1:25 PM EST SPECIMEN TO PATHOLOGY Routine 09/30/2021 1:25 PM EST SPECIMEN TO PATHOLOGY Routine 09/30/2021 1:25 PM EST SURGICAL PATHOLOGY REPORT Routine 09/30/2021 1:19 PM EST Colonoscopy, Diagnostic ([id number]) 09/30/2021 1:03 PM EST Colonoscopy with biopsies to rule out IBD/microscopic colitis EGD/Waters ON PPI Upper Gi Endoscopy, Biopsy ([id number]) 09/30/2021 1:03 PM EST Colonoscopy with biopsies to rule out IBD/microscopic colitis EGD/Waters ON PPI UPPER GI ENDOSCOPY Routine 09/30/2021 12 :19 PM EST COLONOSCOPY Routine 09/30/2021 12:18 PM EST documented in this encounter Results * Specimen to Pathology (09/30/2021 1:46 PM EST) AP Specimen 09/30/2021 1:46 PM EST 09/30/2021 1:46 PM EST Narrative [facility] - 09/30/2021 1:46 PM EST Specimen requisition ordered. ??Separate Pathology report to follow Guilherme Rock MD PATHOLOGY/CYTOLOGY O RDERAVENICE [facility] [place] [address] * Specimen to Pathology (09/30/2021 1:25 PM EST) AP Specimen 09/30/2021 1:25 PM EST 09/30/2021 1:25 PM EST Narrative [facility] - 09/30/2021 1:25 PM EST Specimen requisition ordered. ??Separate Pathology report to follow Guilherme Rock MD PATHOLOGY/CYTOLOGY O LAZ Performing Organization Address [facility] [place] [address] * Specimen to Pathology (09/30/2021 1:25 PM EST) AP Specimen 09/30/2021 1:25 PM EST 09/30/2021 1:25 PM EST Narrative [facility] - 09/30/2021 1:25 PM EST Specimen requisition ordered. ??Separate Pathology report to follow Guilherme Rock MD PATHOLOGY/CYTOLOGY O LAZ Performing Organization Address [facility] [place] [address] * Specimen to Pathology (09/30/2021 1:25 PM EST) AP Specimen 09/30/2021 1:25 PM EST 09/30/2021 1:25 PM EST Narrative [facility] - 09/30/2021 1:25 PM EST Specimen requisition ordered. ??Separate Pathology report to follow Guilherme Rock MD PATHOLOGY/CYTOLOGY O LAZ Performing Organization Address [facility] [place] [address] * Surgical Pathology Report (09/30/2021 1:19 PM EST) Final Diagnosis [id number] ? Location: 4T; EA07; A The signing [...] Carmen Verified: ??10/07/2021 13:51 ??Pathologist Performed at: ??-[facility] Dept. of Pathology, [place], [place] SPECIMEN(S) SUBMITTED A - Duodenum R/O [...] labeled D1-D3. ??sns 10/07/2021 1:51 PM EST [facility] GI Biopsy 09/30/2021 1:19 PM EST 09/30/2021 1:19 PM EST GI Biopsy 09/30/2021 1:19 PM EST 09/30/2021 1:19 PM EST GI Biopsy 09/30/2021 1:19 PM EST 09/30/2021 1:19 PM EST GI Biopsy 09/30/2021 1:19 PM EST 09/30/2021 1:19 PM EST Guilherme Rock MD PATHOLOGY/CYTOLOGY O RDERAVENICE [facility] [place] [address] * UPPER GI ENDOSCOPY (09/30/2021 12:19 PM EST) UPPER GI ENDOSCOPY [facility] Procedure Date: 09/30/2021 12:19 PM ? Patient Name: Teri Smith ? Date of : 1980 ? Age: 41 ? Order #: [id number] ? Instrument Name: [id number] ? Procedure: ? Upper GI endoscopy Indications: [...] * COLONOSCOPY (09/30/2021 12:18 PM EST) COLONOSCOPY [facility] Endoscopy ___ Procedure Date: 09/30/2021 12:18 PM ? Patient Name: Teri Smith ? Date of : 1980 ? Age: 41 ? Order #: [id number] ? Instrument Name: [id number] ? ___ Procedure: ? Colonoscopy Indications: ? [...] preparation was evaluated using ? the BBPS ([place] Bowel Preparation ? Scale) with scores of: [...] documented as of this encounter Care Teams Shale Miner Relationship Specialty Start Date End Date Anuja Cai APRN [address] [place] [address] PCP - General Internal Medicine 07/25/21 documented as of this encounter
--- OUTSIDE RECORDS SUMMARY | 2024-07-12 18:11 | XMS_ITS | Encounter Summary ---
[facility] [place] [address] Care Team Providers Care Punch Press Operator Helper Name Role Phone Unavailable Primary Care Provider Unavailabl e Reason for Visit * Reason Comments Colposcopy LSIL + HR HPV Encounter Details Date Type Department Care Team (Latest Contact Info) Description 05/20/2013 9:30 AM EDT Procedure visit Obstetrics [place] [phone] Tyler Billings MD [facility] DR OBSTETRICS & [place] [address] Abnormal pap (Primary Dx); Papanicolaou smear of [...] 12:00 PM EDT Office [place] [address] Britt Zurita MD [facility] [place] [address] Scheduled Orders Name Type Priority Associated Diagnoses [...] 3:35 PM EDT) Surgical Pathology Report ? [facility] ? Provider: ?? TYLER BILLINGS ?Pt. Name: ?? TERI HARO ? Acc #: ?[id number] ?Pt. ? Col Date: ?? 05/20/2013 ? [...] MD PATHOLOGY/CYTOLOGY O LAZ Performing Organization Address [facility] Co de Phone Number RUBEN BENNETT * Specimen to Pathology (NON-OR) (05/20/2013 3:35 PM EDT) AP Specimen 05/20/2013 3:35 PM EDT 05/20/2013 3:35 PM EDT Narrative [facility] - 05/20/2013 3:35 PM EDT Specimen requisition ordered. ??Separate Pathology report to follow Tyler Billings MD PATHOLOGY/CYTOLOGY O LAZ Performing Organization Address [facility] Co de Phone Number RUBEN BENNETT documented in this encounter Visit Diagnoses Diagnosis Abnormal pap- Primary Other nonspecific abnormal finding Papanicolaou smear of cervix with low grade squamous intraepithelial lesion (LGSIL) documented in this encounter
--- OUTSIDE RECORDS SUMMARY | 2024-07-12 18:11 | XMS_ITS | Encounter Summary ---
Author Organization [facility] [place] [address] Care Team Providers Care Network Security Analyst Name Role Phone Unavailable Primary Care Provider Unavailabl e Reason for Referral * Consultation (Routine) - Complete - Unable to Contact Patient Specialty Diagnoses / Procedures Referred By Ehsan patel Referred To Contact Gastroenterology Diagnoses Diarrhea Liya Richardson [facility] [place] [address] [facility] Gastro [address] [place] [address] Referral ID Status Reason Start Date Expiration Date Visits Requested Visits Authorized [id number] Complete - Unable to Contact Patient Consult, Test & Treat 05/20/2013 11/16/2013 1 1 Reason for Visit * Reason Comments Follow-up tests Encounter Details Date Type Department Care Team ([facility] Contact Info) Description 05/20/2013 7:45 AM EDT Follow-Up Internal Medicine at [facility] [address] [place] [address] Liya Richardson [facility] [place] [address] Fatigue (Primary Dx); Arthralgia; Diarrhea; Shortness of [...] She states that she was seen by sustainability purchasing agent at [facility] who had referred her to GI, but [...] GI, but never went to appt in [place] because of move - reporting frequent diarrhea, will refer to GI for further work up. - Referral to Gastroenterology documented in this encounter Plan of Treatment Upcoming Encounters Date Type Department Care Team (Late st Contact Info) Description 08/17/2024 12:00 PM EDT Office Visit [place] [address] Britt Zurita MD [facility] [place] [place] [address] Scheduled Referrals Name Type Priority Associated Diagnoses Order Schedule Referral to Gastroenterology Outpatient Referral Routine Diarrhea Ordered: 05/20/2013 documented as of this encounter Visit Diagnoses Diagnosis Fatigue- Primary Other malaise and fatigue Arthralgia Pain in joint, site unspecified Diarrhea Shortness of breath documented in this encounter
--- OUTSIDE RECORDS SUMMARY | 2024-07-12 18:11 | XMS_ITS | Encounter Summary ---
[place] [address] Care Team Providers Care Benefits Director Name Role Phone Anuja Cai APRN Primary Care Provider + [phone] Encounter Details Date Type Department Care Team ([facility] st Contact Info) Description 08/23/2021 Telephone [place] [address] Skyler Velasquez Social History Tobacco Use Types [...] CLINICAL SAFETY CHECKLIST 08/23/2021 Skyler Smith [address] [facility] [address] [id number] : 1980 REFERRING PROVIDER: Carla PRIMARY CARE [...] their provider to consider alternative testing. The planner scheduler should also contact the provider's office directly tonotify them that we are unable to schedule due to a contraindication to testing. Then, delete the remainder of this checklist and close out the referral. 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 Have you ever had a/an Upper Endoscopy & Colonoscopy before? Yes: Date egd uv 2012, colo [facility] 2012 If yes, did you have any [...] to patient: You must have a responsible democrat who will drive you to your procedure, [...] 12:00 PM EDT Office [place] [address] Britt Zurita MD [facility] [place] [address] documented as of this encounter Visit Diagnoses Not on filedocumented in this encounter Care Teams Benefits Director Relationship Specialty Start Date End Date Anuja Cai APRN [address] [place] [address] PCP - General Internal Medicine 07/25/21 documented as of this encounter
--- OUTSIDE RECORDS SUMMARY | 2024-07-12 18:11 | XMS_ITS | Encounter Summary ---
Author Organization [facility] Address [facility] [place] [address] Care Team Providers Care Pin Machine Operator Name Role Phone Unavailable Primary Care Provider Unavailabl e Reason for Visit * Reason Comments Establish Care Encounter Details Date Type Department Care Team ([facility] st Contact Info) Description 03/22/2013 1:50 PM EDT Office Visit Internal Medicine at [facility] [address] [place] [address] Liya Richardson APRN [facility] [place] [address] ENCOUNTER TO ESTABLISH CARE (Primary Dx) Discharge [...] APRN SUBJECTIVE: 32 y.o. female presents to [facility]. She just moved down here from [facility]. She is working in [employer], same position. 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 She reports that she had requested records from [facility] back in November. She has complicated medical [...] to GI specialist when she was in [place], but moved before she had appt. She [...] 12:00 PM EDT Office [place] [address] [facility] [place] [address] documented as of this encounter Visit Diagnoses Diagnosis Encounter to establish care- Primary Other reasons for seeking consultation documented in this encounter
--- OUTSIDE RECORDS SUMMARY | 2024-07-12 18:11 | XMS_ITS | Encounter Summary ---
Author Organization [facility] [place] [address] Care Team Providers Care Cheese Production Supervisor Name Role Phone Unavailable Primary Care Provider Unavailabl e Reason for Referral * Consultation (Routine) - Closed Specialty Diagnoses / Procedures Referred By Contmaya t Referred To Contact Obstetrics and Gynecology Diagnoses Abnormal Pap smear Liya Silva AGRICULTURAL SERVICE TECHNICIAN [facility] [address] [place] [address] [facility] [address] [place] [phone] Referral ID Status Reason Start Date Expiration Date V isits Requested Visits Authorized [id number] Closed Consult, Test & Treat 04/25/2013 10/22/2013 1 1 Encounter Details Date Type Department Care Team (Late st Contact Info) Description 04/25/2013 Orders Only Internal Medicine at [facility] [address] [place] [address] Liya Silva [facility] [address] [place] [address] Abnormal Pap smear (Primary Dx); HPV in [...] LSIL and HPV positive. Will refer to NURSE TRANSPLANT for further evaluation. documented in this encounter Plan of Treatment Upcoming Encounters Date Type Department Care Team (Late st Contact Info) Description 08/17/2024 12:00 PM EDT Office Visit [place] [address] Britt Zurita MD [facility] [place] [address] Scheduled Referrals Name Type Priority Associated Diagnoses Orde r Schedule Referral to Ob-Trend Investigator Outpatient Referral Routine Abnormal Pap smear Ordered: 04/25/2013 documented as of this encounter Visit Diagnoses Diagnosis Abnormal Pap smear- Primary Other nonspecific abnormal finding HPV in female Human papillomavirus in conditions classified elsewhere and of unspecified site documented in this encounter
--- OUTSIDE RECORDS SUMMARY | 2024-07-12 18:11 | XMS_ITS | Encounter Summary ---
Author Organization [facility] Address [facility] [place] [address] Care Team Providers Care Pathology Laboratory Aides Teacher Name Role Phone Anuja Cai APRN Primary Care Provider [phone] Reason for Referral * Physical Therapy (Routine) [...] unspecified whether esophagitis present Carla Jose APRN [facility] [place] [address] Robin Velásquez, PT [address] [facility] [address] [place] [address] Referral ID Status Reason Start Date Expiration Date V isits Requested Visits Authorized [id number] Closed Evaluate and Treat 08/19/2021 02/15/2022 12 12 * Diagnostic Test (Routine) - Closed Specialty Diagnoses / Procedures Referred By Ehsan patel Referred To Contact Gastroenterology Diagnoses Heartburn EGD/Waters ON PPI - heartburn Procedures Waters Capsule pH Test EGD/[place] ON PPI - heartburn Carla Jose APRN [facility] [place] [address] [facility] [place] [address] Referral ID Status Reason Start Date Expiration Date V isits Requested Visits Authorized [id number] Closed Consult, Test & Treat 08/19/2021 08/19/2022 1 1 Reason for Visit * Consultation (Routine) - Closed Specialty Diagnoses / Procedures Referred By Contac t Referred To Contact Gastroenterology Diagnoses Generalized abdominal pain Irritable bowel syndrome without diarrhea Gastro-esophageal reflux disease without esophagitis Other fecal abnormalities 08/19-abd pain/IBS/gerd Anuja Cai APRN [address] [place] [address] [facility] [place] [address] Referral ID Status Reason Start Date Expiration Date V isits Requested Visits Authorized [id number] Closed Consult, Test & Treat [facility] PCP Updated and/or Approved 07/18/2021 07/18/2022 6 6 Encounter Details Date Type Department Care Team (Latest Contact Info) Description 08/19/2021 11:00 AM EDT TH Visit (TeleHealth) [place] [phone] Carla Jose APRN [facility] [address] Diarrhea, unspecified type (Primary Dx); Heartburn; Chest [...] C. Difficile Screen ??? Giardia/Cryptosporidium Antigens ([facility]/CGP/APD/NLH) ??? CBC (with Diff) ??? Basic Metabolic Panel (non-fasting) ??? Calprotectin, Stool ??? Elastase, Stool ??? Referral to Physical Therapy ??? Waters Capsule pH Test ??? High Resolution Esophageal Manometry Please call the GI department to schedule the investigations if you do not hear from us within 1-2 weeks: [phone]. Please go to or any [facility] affiliated lab to get any blood work/stool [...] Jose APRN Department of Gastroenterology and Hepatology [facility] Here is some information on the different [...] disease, or Ulcerative colitis. Also if the fuel cell battery technician sees any polyps, they will be removed [...] and Primary Care Providers Vishnu Archer MD, [facility] + Qasim Yang MD, GERARDO Bigg Esqueda APRN + Teri Gonzalez APRN + Carla Jose APRN [facility] Gastrointestinal [facility]ility [facility] What are functional bowel [...] what is the impact? 15-20% of general [place] population has IBS or FD or both ??? 2nd most common cause for lost work days (after common cold) in [place] ??? Estimated $30 billion dollar cost to [place] economy per year ??? These disorders can [...] patients withimmediate onset of symptoms after infection); intermediate school teacher symptoms are expected in most patients however [...] to you primary care provider and/or local fuel cell battery technician and share this document. Treatment of functional [...] this approach benefits most patients ??? OTC (uvlz-yeb-zehjyzg) medications can be used for ongoing bothersome symptoms as listed below ??? Your provider (PCP or local Gastroenterology provider or [facility] Gastroenterology provider) may decide to use prescription [...] All-Bran psyllium buds, Metamucil, Konsyl, bulk psyllium (9facts stores and bulk stores) ??? Specifically we [...] convincing medical evidence is still lacking ??? Kldr-ofx-bbezytm supplements including probiotics are not typically evaluated [...] to decrease antibiotic-associated diarrhea and antibiotic-related infections Jcyp-sqh-Twfrtrh Medications for Functional Gut Disorders Based on [...] ??? Often a combination of anti-nausea medications (zriw-veg-lptrtxa or prescription) works better than high doses [...] for misuse/misinterpretation of this information Patient Resources [place] [employer] https://www.gastro.org/practice-guidance/fr-ygwcvgw-nsutih/ topic/unwgwxyrx-upfkd-aidjawan-ibs Badgut.org https://badgut.org/information-centre/m-b-fyyrdplyh-topics/ibs/ AboutIBS.org https://www.aboutibs.org/ Uptodate.com https://www.uptodate.com/contents/dvyljjqzf-tpbtv-dwerluid-adobhi-hsu-ssqssj documented in this encounter Progress Notes * [...] movement, other days 5+ BM Usually 1-2/day [place]: 5 and 6 Steatorrhea Frequent/random nocturnal stooling [...] managed Disordered Eating: Binge eating disorder 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 ??? fluticasone propionate (Flonase) 50 mcg/actuation [place], Suspension SPRAY ONE SPRAY IN EACH NOSTRIL [...] has a past surgical history that includes [place] tooth extraction; [place] tooth extraction; and Uterine fibroid surgery. Family [...] is complete The patient was located in [place] at the time of their visit. TIME SPENT WITH PATIENT Time spent reviewing records prior to this encounter on day of appointment: 10 minutes Time spent during encounter with patient including counselin minutes Time spent documenting encounter after office visit: 15 minutes Carla Jose [place] [facility] [place] [address] documented in this encounter Plan of Treatment Upcoming Encounters Date Type Department Care Team (Late st Contact Info) Description 08/17/2024 12:00 PM EDT Office Visit Rheumatology at [facility] [address] Britt Zurita MD [facility] [place] [address] Scheduled Orders Name Type Priority Associated Diagnoses [...] EDT) Glucose 108 65 - 199 mg/dL [facility] Comment:Diabetes: >=200 mg/d L plus symptoms Blood Urea Nitrogen 15 8 - 18 mg/dL [facility] Creatinine 1.09 0.70 - 1.20 mg/dL [facility] Sodium 140 135 - 145 mmol/L [facility] Potassium 3.6 3.5 - 5.0 mmol/L [facility] Comment: Please note: ??Patients with WBC >100,000 may have falsely elevated Potassium levels. ??For accurate Potassium quantification in these patients send serum separator tube (gold top) for subsequent determinations. ??Contact the Clinical Chemistry Laboratory if there are any questions. Chloride 101 98 - 107 mmol/L [facility] Carbon Dioxide 28 22 - 31 mmol/L [facility] Anion Gap 11 5 - 15 mmol/L [facility] Calcium 9.5 8.5 - 10.5 mg/dL [facility] Est Glomerular Filtration Rate 63 >=60 mL/min/1. 73 m?? [facility] Comment: This patient? s estimated [...] Lab Carla Jose APRN CHEMISTRY ORDERABLE S [facility] [place] [address] documented in this encounter Visit Diagnoses Diagnosis [...] present documented in this encounter Care Teams Pathology Laboratory Aides Teacher Relationship Specialty Start Date End Date Anuja Cai APRN [address] [place] [address] PCP - General Internal Medicine 07/25/21 documented as of this encounter
--- OUTSIDE RECORDS SUMMARY | 2024-07-12 18:11 | XMS_ITS | Encounter Summary ---
Author Organization [facility] [place] [address] Care Team Providers Care Fuse Coiler Name Role Phone Unavailable Primary Care Provider Unavailabl e Encounter Details Date Type Department Care Team (Late st Contact Info) Description 04/10/2013 9:36 AM EDT - 04/10/2013 10:10 AM EDT [place] [address] Skyler Torrez PA [address] [place] [address] EMERGENCY DEPT, [facility] [address] Otitis media (Primary Dx) Discharge Disposition: Home [...] IN ADULTS (OTITIS MEDIA): AFTER YOUR VISIT (MEXICAN) documented in this encounter Medications at Time [...] Bilateral ear discomfort, left appears infected. AUSTIN RAMAN w/ disposition and prescriptions * Skyler Torrez [...] Miscellaneous Notes * Discharge Summary - Provider, Nacho - 04/11/2013 9:16 AM EDT * Miscellaneous [...] 12:00 PM EDT Office [place] [address] Britt Zurita MD [facility] [place] [address] documented as of this encounter Visit Diagnoses Diagnosis Otitis media- Primary Unspecified otitis media documented in this encounter
--- OUTSIDE RECORDS SUMMARY | 2024-07-12 18:11 | XMS_ITS | Encounter Summary ---
[place] [address] Care Team Providers Care Planogrammer Name Role Phone TrellAnuja APRN Primary Care Provider + [phone] Reason for Visit * Reason Onset Date Comments Reminder Appointment 08/19/2021 Encounter Details Date Type Department Care Team (Late Contact Info) Description 08/19/2021 Tele[place] [address] Marylu Betancur CCMA Reminder Appointment [...] 12:00 PM EDT [place] [address] Britt Zurita MD [facility] [place] [address] documented as of this encounter Visit Diagnoses Not on filedocumented in this encounter Care Teams Planogrammer Relationship Specialty Start Date End Date Anuja Cai APRN [address] [facility] [place] [address] PCP - General Internal Medicine 07/25/21 documented as of this encounter
--- OUTSIDE RECORDS SUMMARY | 2024-07-12 18:11 | XMS_ITS | Encounter Summary ---
Author Organization [facility] [place] [place] [address] Care Team Providers Care Investor Relations Coordinator Name Role Phone Anuja Cai APRN Primary Care Provider [phone] Encounter Details Date Type Department Care Team (Late st Contact Info) Description 09/30/2021 1:00 PM EST - 09/30/2021 2:00 PM EST [place] [phone] Guilherme Rock MD [facility] [place] [address] EGD WITH BIOPSY (WRVU 2.39) Social History [...] the day after the procedure, use an nejq-yua-npnnsok spray to numb your throat. Sucking on [...] occurs, please contact your Doctor. Please call [phone] before 8pm Mon-Fri with problems, questions or concerns. If you call after 8pm or on weekends, call the Hospital at [phone] and ask to speak to the National Sales Executive software applications developer and the carding machine operator will contact that person for you. When should you call for help? Call [phone] anytime you think you may need emergency [...] any problems. Where can you learn more? [facility] View your After Visit Summary and more online at [email or web address] If you would like to provide feedback about your hospital experience, please call the Office of Patient and Family Relations at . If you have received this After Visit Summary in error, please immediately return it in person to the department, or notify the [facility] Privacy Office by calling toll free at between the hours of 8AM and 5PM to arrange for our retrieval of the documents at no cost to you. Content Version: 12.2 ?? [phone] [employer]. Care instructions adapted under license by [facility]. If you have questions about a medical condition or this instruction, always ask your healthcare professional. [employer] disclaims any warranty or liability for your [...] occurs, please contact your Doctor. Please call [phone] before 8pm Mon-Fri with problems, questions or concerns. If you call after 8pm or on weekends, call the Hospital at [phone] and ask to speak to the National Sales Executive software applications developer and the carding machine operator will contact that person for you. When should you call for help? Call [phone] anytime you think you may need emergency [...] any problems. Where can you learn more? [facility] View your After Visit Summary and more online at [email or web address] If you would like to provide [...] cost to you. Content Version: 12.2 ?? 0828-4394 [employer]. Care instructions adapted under license by [facility]. If you have questions about a medical condition or this instruction, always ask your healthcare professional. [employer] disclaims any warranty or liability for your [...] 02/16/24 07/29/2021 fluticasone propionate (Flonase) 50 mcg/actuation [place], Suspension SPRAY ONE SPRAY IN EACH NOSTRIL [...] Mena thyroiditis Z86.39 ??? Abnormal Pap smear PPX2018 ??? 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 EXAM: HEENT: [...] 12:00 PM EDT Office [place] [address] Britt Zurita MD [facility] [place] [address] documented as of this encounter Procedures Procedure Name Priority Date/Time Associated Diagnosis Comments SPECIMEN TO PATHOLOGY Routine 09/30/2021 1:46 PM EST SPECIMEN TO PATHOLOGY Routine 09/30/2021 1:25 PM EST SPECIMEN TO PATHOLOGY Routine 09/30/2021 1:25 PM EST SPECIMEN TO PATHOLOGY Routine 09/30/2021 1:25 PM EST SURGICAL PATHOLOGY REPORT Routine 09/30/2021 1:19 PM EST Colonoscopy, Diagnostic ([id number]) 09/30/2021 1:03 PM EST Colonoscopy with biopsies to rule out IBD/microscopic colitis EGD/Waters ON PPI Upper Gi Endoscopy, Biopsy ([id number]) 09/30/2021 1:03 PM EST Colonoscopy with biopsies to rule out IBD/microscopic colitis EGD/Waters ON PPI UPPER GI ENDOSCOPY Routine 09/30/2021 12 :19 PM EST COLONOSCOPY Routine 09/30/2021 12:18 PM EST documented in this encounter Results * Specimen to Pathology (09/30/2021 1:46 PM EST) AP Specimen 09/30/2021 1:46 PM EST 09/30/2021 1:46 PM EST Narrative [facility] - 09/30/2021 1:46 PM EST Specimen requisition ordered. ??Separate Pathology report to follow Guilherme Rock MD PATHOLOGY/CYTOLOGY O RDERAVENICE [facility] [place] [address] * Specimen to Pathology (09/30/2021 1:25 PM EST) AP Specimen 09/30/2021 1:25 PM EST 09/30/2021 1:25 PM EST Narrative [facility] - 09/30/2021 1:25 PM EST Specimen requisition ordered. ??Separate Pathology report to follow Guilherme Rock MD PATHOLOGY/CYTOLOGY O LAZ Performing Organization Address [facility] [place] [address] * Specimen to Pathology (09/30/2021 1:25 PM EST) AP Specimen 09/30/2021 1:25 PM EST 09/30/2021 1:25 PM EST Narrative [facility] - 09/30/2021 1:25 PM EST Specimen requisition ordered. ??Separate Pathology report to follow Guilherme Rock MD PATHOLOGY/CYTOLOGY O LAZ Performing Organization Address [facility] [place] [address] * Specimen to Pathology (09/30/2021 1:25 PM EST) AP Specimen 09/30/2021 1:25 PM EST 09/30/2021 1:25 PM EST Narrative [facility] - 09/30/2021 1:25 PM EST Specimen requisition ordered. ??Separate Pathology report to follow Guilherme Rock MD PATHOLOGY/CYTOLOGY O LAZ Performing Organization Address [facility] [place] [address] * Surgical Pathology Report (09/30/2021 1:19 PM EST) Final Diagnosis [id number] ? Location: 4T; EA07; A The signing [...] Verified: ??10/07/2021 13:51 ??Pathologist Performed at: ??-[facility] [place], [place], [place] SPECIMEN(S) SUBMITTED A - Duodenum R/O [...] labeled D1-D3. ??sns 10/07/2021 1:51 PM EST [facility] GI Biopsy 09/30/2021 1:19 PM EST 09/30/2021 1:19 PM EST GI Biopsy 09/30/2021 1:19 PM EST 09/30/2021 1:19 PM EST GI Biopsy 09/30/2021 1:19 PM EST 09/30/2021 1:19 PM EST GI Biopsy 09/30/2021 1:19 PM EST 09/30/2021 1:19 PM EST Guilherme Rock MD PATHOLOGY/CYTOLOGY Lisa NESBITT [facility] [place] [address] * UPPER GI ENDOSCOPY (09/30/2021 12:19 PM EST) UPPER GI ENDOSCOPY [facility] Procedure Date: 09/30/2021 12:19 PM ? Patient Name: Teri Smith ? Date of : 1980 ? Age: 41 ? Order #: [id number] ? Instrument Name: [id number] ? Procedure: ? Upper GI endoscopy Indications: [...] * COLONOSCOPY (09/30/2021 12:18 PM EST) COLONOSCOPY [facility] Endoscopy ___ Procedure Date: 09/30/2021 12:18 PM ? Patient Name: Teri Smith ? Date of : 1980 ? Age: 41 ? Order #: [id number] ? Instrument Name: [id number] ? ___ Procedure: ? Colonoscopy Indications: ? [...] preparation was evaluated using ? the BBPS ([place] Bowel Preparation ? Scale) with scores of: [...] documented as of this encounter Care Teams Investor Relations Coordinator Relationship Specialty Start Date End Date Anuja Cai APRN [address] [place] [address] PCP - General Internal Medicine 07/25/21 documented as of this encounter
--- OUTSIDE RECORDS SUMMARY | 2024-07-12 18:11 | XMS_ITS | Encounter Summary ---
Author Organization [facility] [place] [address] Care Team Providers Care Graphics Editor Name Role Phone Unavailable Primary Care Provider Unavailabl e Reason for Visit * Reason Comments Other Encounter Details Date Type Department Care Team (Late st Contact Info) Description 04/25/2013 Telephone Internal Medicine at [facility] [address] [place] [address] Massiel Bonilla, PROGRAM COORDINATOR EXECUTIVE EDUCATION Social History Tobacco Use Types Packs/Day Years [...] ----- Message ----- From: [place], Lab In [facility] Sent: 04/21/2013 4:15 PM To: Liya Richardson APRN documented in this encounter Plan of Treatment Upcoming Encounters Date Type Department Care Team (Late st Contact Info) Description 08/17/2024 12:00 PM EDT Office [place] [address] Britt Zurita MD [facility] [place] [address] documented as of this encounter Visit Diagnoses Not on filedocumented in this encounter
--- OUTSIDE RECORDS SUMMARY | 2024-07-12 18:11 | XMS_ITS | Encounter Summary ---
Author Organization [place] [address] Care Team Providers Care Supervisor Body Assembly Name Role Phone nAuja Cai APRN Primary Care Provider [phone] Encounter Details Date Type Department Care Team (Latest Contact Info) Description 09/29/2021 5:28 PM EST - 09/29/2021 11:59 PM EST Hospital [place] [phone] Discharge Disposition: Home Social History Tobacco Use [...] 02/16/24 07/29/2021 fluticasone propionate (Flonase) 50 mcg/actuation [place], Suspension SPRAY ONE SPRAY IN EACH NOSTRIL [...] 12:00 PM EDT Office [place] [address] Britt Zurita MD [facility] [place] [address] documented as of this encounter Procedures Procedure Name Priority Date/Time Associated Diagnosis Comments CALPROTECTIN,STOOL Routine 09/29/2021 3: 30 PM EST ELASTASE, STOOL Routine 09/29/2021 3:30 PM EST documented in this encounter Results * Elastase, Stool (09/29/2021 3:30 PM EST) Elastase Stool (QST) >500 mcg/g [facility] Comment: Adult and Pediatric Reference Ranges for ??Pancreatic Elastase-1: ? Normal: ?>200 mcg/g Moderate Pancreatic ?Insufficiency: ?? 100-200 mcg/g ??Severe Pancreatic ?Insufficiency: ?<100 mcg/g Elastase-1 (E-1) assay results are expressed in mcg/g, which represent mcg E1/g feces. It is not necessary to interrupt enzyme substitution therapy. Test performed by [facility] ?[address], ?[place] [address] ? Hot Cell Technician: Diana Fraga MD,PHD,GERARDO Test Reported by Cecile Lazaro, vushaper [facility], [address] [place], [place] Skyler Turner M.D., Ph.D., Director of Laboratories , [place] [id number] Stool Other / Unknown 09/29/2021 3 :30 PM EST 10/01/2021 9:57 AM EST Narrative Resulting Agency Comment Spec In Lab Carla Jose APRN LAB SEND OUT [place] [facility] [place] [address] * (ABNORMAL) Calprotectin, Stool (09/29/2021 3:30 PM EST) Calprotectin, Stool 342(H) <=79 mcg/g [facility] Comment: Calprotectin Concentration ? Interpretation ? < 80 mcg/g ?Normal ? 80 ? 160 mcg/g ?Borderline ? >160 mcg/g ?Elevated Stool Other / Unknown 09/29/2021 3 :30 PM EST 09/30/2021 12:32 PM EST Narrative Resulting Agency Comment Spec In Lab Carla Jose APRN BODY FLUIDS AND STO OLS ORDERABLES Performing Organization Address City/State/[facility] Co de Phone Number [facility] [place] [address] documented in this encounter Visit Diagnoses Not on filedocumented in this encounter Care Teams Supervisor Body Assembly Relationship Specialty Start Date End Date Anuja Cai APRN [address] [facility] [place] [address] PCP - General Internal Medicine 07/25/21 documented as of this encounter
--- OUTSIDE RECORDS SUMMARY | 2024-07-12 18:11 | XMS_ITS | Encounter Summary ---
Author Organization Formerly [facility] [place] [address] Care Team Providers Care Sap Data Architect Name Role Phone Unavailable Primary Care Provider Unavailabl e Reason for Visit * Reason Comments Follow-up Encounter Details Date Type Department Care Team ([facility] st Contact Info) Description 04/14/2013 11:25 AM EDT Follow-Up Internal Medicine at [facility] [address] [place] [phone] Liya Richardson APRN [facility] [place] [address] Pap smear for cervical cancer screening (Primary [...] encounter Patient Instructions * Patient Instructions* Liya Rcihardson APRN - 04/14/2013 12:23 PM EDT GO [...] 12:00 PM EDT [place] [address] Britt Zurita MD [facility] [place] [address] documented as of this encounter Procedures Procedure Name Priority Date/Time Associated Diagnosis Comments SOFT MUD MOLDER MOLECULAR GENETICS REPORT Routine 04/14/2013 3:59 PM EDT SOFT MUD MOLDER CYTOLOGY FINAL REPORT Routine 04/14/2013 3:59 PM EDT CYTOPATHOLOGY GYNECOLOGICAL Routine 04/14/2013 12:25 PM EDT Health care maintenance documented in this encounter Results * [employer] Cytology Final Report (04/14/2013 3:59 PM EDT) [employer] Manager Cytology Final Report ? [facility] ? Provider: ?? LIYA RICHARDSON Pt. Name: ?? TERI HARO ? Acc #: ?[id number] ?Pt. ? Col Date: ?? 04/14/2013 ? /Sex: ?1980,(33 years),Female ? Rec Date: ?? 04/14/2013 ? LOC: ?HPN ? CYTOPATHOLOGY: ??SOFT MUD MOLDER ? ---Adequacy--- ? Specimen submitted is satisfactory [...] ? These guidelines were published in the [place] Journal of Obstetrics and ? Gynecology (2007;197(4):346-3 55). ? 04/21/13 ?? Screened by: ??SLA ??JANITORIAL SERVICES SUPERVISOR ? 04/22/13 ?? Verified by: ??BELKYS OCONNELL MD - Pathologist ? ---Comment--- ? Please also see concurrent HPV test result. ? ---Clinical Information--- ? HPV Option: ? Concurrent HPV ? Preparation: ?Liquid Based Pap ? Specimen Source: ?Vag/Cerv/Endo/LB P/Diagnostic ? LMP: ?/12/15 ? Hormones?: ?No ? Hysterectomy?: ?No ?: ?No ?: ?No ? I.U.D.?: ?No ? Pelvic Radiation: ? No ? Prior SOFT MUD MOLDER Therapy?: ? Other (comment) ? Hist Abnl Pap/Biopsy?: ??Yes, history of previous abnormal Pap ? Hist of HPV Vaccine?: ?? No ? Hist of Smoking?: ? Yes ? [facility] ? Provider: ?? LIYA RICHARDSON Pt. Name: ?? TERI HARO ? Acc #: ?[id number] ?Pt. ? Col Date: ?? 04/14/2013 ? /Sex: ?1980,(33 years),Female ? Rec Date: ?? 04/14/2013 ? LOC: ?HPN ? CYTOPATHOLOGY: ??SOFT MUD MOLDER ? Hist of MAR exposure?: ??No ? [...] ? information please contact the [facility]. ? Reference: ??Julianne CS. ??Lamp [place]ade Maker of Pap Smear Results. ??In: ? Suri BS, Silvestre HH, ed. ??The Pap Smear. ??[place]: ??Willian, 2002: ? 71-77. [facility] 04/14/2013 3:59 PM EDT Liya Richardson PEOPLESOFT ADMINISTRATOR PATHOLOGY/CYTOLO GY ORDERABLES Performing Organization Address City/State/[facility] Co de Phone Number [facility] * SOFT MUD MOLDER Molecular Genetics Report (04/14/2013 3:59 PM EDT) SOFT MUD MOLDER Molecular Genetics Report ? [facility] ? Provider: ?? LIYA RICHARDSON Pt. Name: ?? TERI HARO ? Acc #: ?[id number] ?Pt. ? Col Date: ?? 04/14/2013 ? [...] Based Prep ? Reviewed by: ??Willian Marroquin [facility] ? A ?VCELD Vag/Cerv/Endo/L BP/Diagnostic ? B [...] ordered. ??Separate Pathology report to follow Anila eSrna MD PATHOLOGY/CYTOLOGY ORDERABLES [facility] documented in this encounter Visit Diagnoses Diagnosis Pap smear for cervical cancer screening- Primary Screening for malignant neoplasm of the cervix Health care maintenance Unspecified general medical examination documented in this encounter
--- OUTSIDE RECORDS SUMMARY | 2024-07-12 18:11 | XMS_ITS | Encounter Summary ---
Author Organization [facility] Address [facility] [place] [address] Care Team Providers Care Data Processing Operator Name Role Phone Unavailable Primary Care Provider Unavailabl e Encounter Details Date Type Department Care Team (Late st Contact Info) Description 04/26/2013 Telephone Family Medicine at [facility] [address] [place] [address] Liya Silva APRN [facility] [place] [address] Social History Tobacco Use Types Packs/Day Years [...] 12:00 PM EDT Office [place] [address] Britt Zurita MD [facility] [place] [place] [address] documented as of this encounter Visit Diagnoses Not on filedocumented in this encounter
--- OUTSIDE RECORDS SUMMARY | 2024-07-12 18:11 | XMS_ITS | Encounter Summary ---
[place] [address] Care Team Providers Care Tip Length Checker Name Role Phone TrellAnuja APRN Primary Care Provider + [phone] Encounter Details Date Type Department Care Team (Late Contact Info) Description 11/28/2021 Telephone [place] [phone] Ranjana Auguste CMA GASTROENTEROLOGY DEPT Social History [...] 12:00 PM EDT Office [place] [address] Britt Zurita MD [facility] [place] [address] documented as of this encounter Visit Diagnoses Not on filedocumented in this encounter Care Teams Tip Length Checker Relationship Specialty Start Date End Date Anuja Cai APRN [address] [place] [address] PCP - General Internal Medicine 07/25/21 documented as of this encounter
--- OUTSIDE RECORDS SUMMARY | 2024-07-12 18:11 | XMS_ITS | Encounter Summary ---
Author Organization [facility] [place] [address] Care Team Providers Care Chief Substation Operator Name Role Phone Unavailable Primary Care Provider Unavailabl e Reason for Referral * Consultation (Urgent) - Closed Specialty Diagnoses / Procedures Referred By Contmaya t Referred To Contact Otolaryngology Diagnoses Strep pharyngitis Kassy Toscano MD [facility] [place] [address] [facility] [address] [place] [phone] Referral ID Status Reason Start Date Expiration Date V isits Requested Visits Authorized [id number] Closed Specialty Service Requested 03/09/2013 09/05/2013 1 1 Reason for Visit * Reason Comments Throat Pain Encounter Details Date Type Department Care Team (Late st Contact Info) Description 03/09/2013 1:53 AM EDT - 03/09/2013 3:07 AM EDT [place] [address] Kassy Toscano MD [facility] [place] [address] Strep pharyngitis (Primary Dx) Discharge [...] Everywhere. * STREP THROAT: AFTER YOUR VISIT ([place]OR[place]) documented in this encounter Medications at Time [...] by the patient and medical records. No auto claims adjuster was used. 32-year-old female presents emergency department [...] 12:00 PM EDT Office [place] [address] Britt Zurita MD [facility] [place] [address] Scheduled Referrals Name Type Priority Associated Diagnoses [...]
--- OUTSIDE RECORDS SUMMARY | 2024-07-12 18:11 | XMS_ITS | Encounter Summary ---
Author Organization [facility] [place] [address] Care Team Providers Care Math And Sciences Department Chair Name Role Phone Unavailable Primary Care Provider Unavailabl e Encounter Details Date Type Department Care Team (Late st Contact Info) Description 05/26/2013 Telephone Obstetrics [place] [address] Julio Cristina MD [facility] DR OBSTETRICS [place] [address] Social History Tobacco Use Types Packs/Day Years [...] 12:00 PM EDT Office [place] [address] Britt Zurita MD [facility] [place] [address] documented as of this encounter Visit Diagnoses Not on filedocumented in this encounter
--- OUTSIDE RECORDS SUMMARY | 2024-07-12 18:11 | XMS_ITS | Encounter Summary ---
Author Organization [facility] [place] [address] Care Team Providers Care Assembly Press Operator Name Role Phone Unavailable Primary Care Provider Unavailabl e Reason for Visit * Reason Comments Pharyngitis Encounter Details Date Type Department Care Team ([facility] st Contact Info) Description 03/24/2013 2:15 PM EDT Office [place] [address] Parvin Bennett METAL PAINTER [facility] [place] [address] Pharyngitis (Primary Dx) Discharge Disposition: Home Social [...] Visit: 03/24/2013 Location of Visit: Otolaryngology Clinic, [facility] Patient: Teri Haro ([id number] ; 1980 Primary Care Provider: VIJAY RICHARDSON [...] strep. 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 Teri does smoke 1 pack/day x 14 years. She would like to quit. Teri does have a hx of chronic fatigue, reflux with hiatal hernia. She is currently taking Omeprazole 40 mg /day and feels that does control her reflux symptoms. Past Medical History: Other then above, night sweats, Hashimotto disease, Past Surgical History: Past Surgical History Procedure Date ??? [place] tooth extraction Medications: Current Outpatient Prescriptions on File Prior to Visit Medication Sig Dispense Refill ??? omeprazole (PRILOSEC) 40 mg capsule Take 1 capsule by mouth daily. 30 capsule 11 ??? levothyroxine (SYNTHROID) 88 mcg tablet Take 88 mcg by mouth daily. Allergies: Review of patient's allergies indicates no known allergies. Social History: Teri Haro lives in [facility] [address]. She has a 5 year old child. [...] her symptomsor sooner if needed. Parvin NARANJO [place], [place] [address] Office documented in this encounter Plan of Treatment Upcoming Encounters Date Type Department Care Team (Late st Contact Info) Description 08/17/2024 12:00 PM EDT Office [place] [address] Britt Zurita MD [facility] [place] [address] documented as of this encounter Procedures Procedure Name Priority Date/Time Associated Diagnosis Comments UPPER RESPIRATORY CULTURE Routine 03/24/2013 3:20 PM EDT Pharyngitis documented in this encounter Results * Upper Respiratory Culture Throat (03/24/2013 3:20 PM EDT) Upper Respiratory Culture ? Patient Name: TERI HARO ?Ordered By: OSCAR NELSON ? MR#: [id number] ?LOC: ??4F ? /Sex: ??1980 (32 years), [...] Lab Oscar Nelson MD MICROBIOLOGY - GENE [facility] ORDERABLES RUBEN BENNETT documented in this encounter Visit Diagnoses Diagnosis Pharyngitis- Primary Acute pharyngitis documented in this encounter
--- OUTSIDE RECORDS SUMMARY | 2024-07-12 18:11 | XMS_ITS | Encounter Summary ---
Author Organization [facility] [place] [id number] Care Team Providers Care Supervisor Felling Bucking Name Role Phone Anuja Cai APRN Primary Care Provider + [phone] Reason for Visit * Diagnostic Test (Routine) - Closed Specialty Diagnoses / Procedures Referred By Ehsan patel Referred To Contact Gastroenterology Diagnoses Heartburn EGD/Waters ON PPI - heartburn Procedures Waters Capsule pH Test EGD/Waters ON PPI - heartburn Carla Jose DIRECTOR OF ALUMNI RELATIONS [facility] [place] [address] [facility] [address]astro [address] [place] [address] Referral ID Status Reason Start Date Expiration Date V isits Requested Visits Authorized [id number] Closed Consult, Test & Treat 08/19/2021 08/19/2022 1 1 Encounter Details Date Type Department Care Team (Latest Contact Info) Description 09/30/2021 1:00 PM EST Procedure [place] [address] Heartburn; Chest pain, unspecified type; Gastric ulcer, [...] (Waters) procedure report Patient: Teri Smith [address]: [address] [place] [id number] : 1980 Referring provider: Anuja Cai Date [...] pH <4 Evidence for pathologic reflux: AET >=5.1% No convincing evidence of pathologic reflux: AET [...] the Schuster Consensus. Gut. 2018 May; 67(7): 7905-4492. 2) Validation of the Schuster classification for GORD diagnosis: acid exposure time assessed by prolonged wireless pH monitoring in healthy controls and patients with erosive oesophagitis. Gut. 2020. doi10.1136/mjexrm-3584-607377. Qasim aYng MD Section of Gastroenterology and Hepatology [facility] [place] [address] V: [phone] F: [phone] CC/ETC: Anujageetha Cai, DIRECTOR OF ALUMNI RELATIONS [address] [place] [address] documented in this encounter Plan of Treatment Upcoming Encounters Date Type Department Care Team (Late st Contact Info) Description 08/17/2024 12:00 PM EDT Office [place] [address] Britt Zurita MD [facility] [place] [address] documented as of this encounter Procedures Procedure Name Priority Date/Time Associated Diagnosis Comments CRYPTOSPORIDIUM OOCYST ANTIGEN ([facility]/APD) Routine 09/29/2021 3:30 PM EST Heartburn Chest [...] disease, unspecified whether esophagitis present GIARDIA ANTIGEN ([facility]/APD/NL) Routine 09/29/2021 3:30 PM EST Heartburn Chest pain, unspecified type Gastric ulcer, unspecified chronicity, unspecified whether gastric ulcer hemorrhage or perforation present Incontinence of feces with fecal urgency Steatorrhea Diarrhea, unspecified type Irritable bowel syndrome, unspecified type Hiatal hernia Gastroesophageal reflux disease, unspecified whether esophagitis present documented in this encounter Results * Cryptosporidium Oocyst Antigen ([facility]/CGP/APD) (09/29/2021 3:30 PM EST) Cryptosporidium Antigen Negative Negative [facility] Stool 09/29/2021 3:30 PM EST 09/30/2021 1:35 PM EST Narrative Resulting Agency Comment Spec In Lab Carla Jose DIRECTOR OF ALUMNI RELATIONS MICROBIOLOGY - GENE RAL ORDERABLES Performing Organization Address City/[facility] Co de Phone Number [facility] [place] [address] * Giardia antigen ([facility]/CGP/APD/NLH) (09/29/2021 3:30 PM EST) Giardia Antigen Negative Negative [facility] Comment:Examination for othe r intestinal parasites requires foreign travel history. Stool 09/29/2021 3:30 PM EST 09/30/2021 1:35 PM EST Narrative Resulting Agency Comment Spec In Lab Carla Jose DIRECTOR OF ALUMNI RELATIONS MICROBIOLOGY - GENE RAL ORDERABLES Performing Organization Address [facility] Co de Phone Number [facility] [place] [address] documented in this encounter Visit Diagnoses Diagnosis [...] as of this encounter Care Teams Supervisor Felling Bucking Relationship Specialty Start Date End Date Anuja Cai APRN [address] [place] [address] PCP - General Internal Medicine 07/25/21 documented as of this encounter
--- OUTSIDE RECORDS SUMMARY | 2024-07-12 18:11 | XMS_ITS | Encounter Summary ---
Author Organization [facility] [place] [address] Care Team Providers Care Lighting Director Name Role Phone Anuja Cai APRN Primary Care Provider + [phone] Encounter Details Date Type Department Care Team (Latest Contact Info) Description 08/23/2021 9:05 AM EDT Laboratory Appointment Lab [address] [place] [address] Heartburn; Chest pain, unspecified type; [...] 12:00 PM EDT [place] [address] Britt Zurita MD [facility] [place] [address] documented as of this encounter Procedures Procedure [...] 9:24 AM EDT) Neutrophil % 67.6 % [facility] Neutrophil Absolute 4.91 1.70 - 6.10 x10(3)/[facility] Lymph % 21.7 % [facility] Lymphocytes Abs 1.6 0.9 - 3.2 x10(3)/[facility]OR[facility] Monocyte % 8.4 % [facility] Monocyte Abs 0.6 0.3 - 0.9 x10(3)/[facility] Eos % 1.5 % [facility] Eosinophils Abs 0.1 0.0 - 0.4 x10(3)/[facility] Basophil % 0.4 % [facility] Baso Absolute 0.0 0.0 - 0.1 x10(3)/[facility] LABOR[facility] Immature Gran % 0.40 % [facility] Comment: Immature granulocytes(IG's)percentage and absolute count will include metamyelocytes, myelocytes, and promyelocytes. Blood smears from CBCs yielding IG's will be scanned manually for concordance. If this scan disagrees with the automated IG or if promyelocytes are noted, a manual differential will be performed. Immature Gran Absolute 0.03 0.00 - 0.04 x10(3)/[facility] Blood 08/23/2021 9:24 AM EDT 08/23/2021 9:33 AM EDT Narrative Resulting Agency Comment Spec In Lab Carla A Rebeca ENCINAS HEMATOLOGY ORDERABL ES [facility] [place] [address] * (ABNORMAL) Hemogram (08/23/2021 9:24 AM EDT) White Blood Cell 7.3 4.0 - 9.5 x10(3)/mc L [facility] Red Blood Cell 4.56 4.00 - 5.21 x10(6)/mc L [facility] Hemoglobin 12.7 11.7 - 15.5 g/dL [facility] Hematocrit 37.6 35.7 - 45.8 % [facility] Mean Cell Volume 82.5(L) 82.6 - 94.4 fL [facility] Mean Cell Hemoglobin 27.9 27.1 - 32.0 pg [facility] Mean Cell Hemoglobin Concentration 33.8 31.7 - 35.0 g/dL [facility] Platelet 359(H) 145 - 357 x10(3)/mc L [facility] RDW Standard Deviation 39.0 37.0 - 46.0 fL [facility] RDW coefficient of variation 13.0 11.5 - 14.1 % [facility] Mean Platelet Volume 10.1 7.6 - 12.9 fL [facility] NRBC% auto 0.0 % [facility] NRBC Absolute 0.000 0.000 - 0.000 x10(3)/mc L [facility] Blood 08/23/2021 9:24 AM EDT 08/23/2021 9:33 AM EDT Narrative Resulting Agency Comment Spec In Lab Carla Jose HUANG HEMATOLOGY ORDERABL ES [facility] [place] [address] * Basic Metabolic Panel (non-fasting) (08/23/2021 9:24 [...] CHEMISTRY ORDERABLE S [facility] [place] [address] documented in this encounter Visit Diagnoses Diagnosis [...] present documented in this encounter Care Teams Lighting Director Relationship Specialty Start Date End Date Anuja Cai APRN [address] [facility] [place] [address] PCP - General Internal Medicine 07/25/21 documented as of this encounter
--- OUTSIDE RECORDS SUMMARY | 2024-07-12 18:11 | XMS_ITS | Encounter Summary ---
Author Organization Formerly [facility] Address [facility] [place] [address] Care Team Providers Care Glove Sewer Name Role Phone Unavailable Primary Care Provider Unavailabl e Reason for Visit * Reason Onset Date Comments Labs Only 08/11/2013 Encounter Details Date Type Department Care Team (Late st Contact Info) Description 08/11/2013 Telephone Family Medicine at [facility] [address] [place] [address] Liya Silva APRN [facility] GENERAL [place] [address] Labs Only Social History Tobacco Use Types [...] 12:00 PM EDT Office [place] [address] Britt Zurita MD [facility] [place] [address] documented as of this encounter Visit Diagnoses Not on filedocumented in this encounter
--- OUTSIDE RECORDS SUMMARY | 2024-07-12 18:11 | XMS_ITS | Encounter Summary ---
Author Organization [facility] [place] [address] Care Team Providers Care Child Protective Services Social Worker Name Role Phone Unavailable Primary Care Provider Unavailabl e Reason for Visit * Reason Comments Thyroid Problem Encounter Details Date Type Department Care Team ([facility] st Contact Info) Description 02/22/2014 3:00 PM EDT Office Visit [place] [address] [facility] DR ENDOCRINOLOGY [place] [address] Hypothyroidism (Primary Dx) Discharge Disposition: Home Social [...] that weight since then. Saw Endocrinology at [facility] -- blood work and ultrasound diagnosed [...] were negative. Was sent to Rheumatology at [facility] - no lupus or fibromyalgia. Was [...] stone Past Surgical History Procedure Date ??? [place] tooth extraction ??? [place] tooth extraction ??? Uterine fibroid surgery Family [...] evaluation. Cate Moran DO Fellow in Endocrinology [facility] Dept of Endocrinology Office: [phone] Pager: [phone] documented in this encounter Plan of Treatment Upcoming Encounters Date Type Department Care Team (Late st Contact Info) Description 08/17/2024 12:00 PM EDT Office [place] [address] [facility] [place] [address] documented as of this encounter Procedures Procedure [...] (02/22/2014 5:18 PM EDT) Cortisol 37.1 mcg/dL [facility] Comment: Reference ranges: ??AM (7-10am): ??6.2-19.4 mcg/dL ??PM (4-8pm): ??2.3-12.3 mcg/dL Blood specimen (specimen) 02/22/2014 5:18 PM EDT 02/22/2014 5:21 PM EDT Narrative Resulting Agency Comment Spec In Lab Camila Beaver MD CHEMISTRY ORDERAB LES Performing Organization Address [facility] Co de Phone Number [facility] * Cortisol (02/22/2014 4:09 PM EDT) Cortisol 6.3 mcg/dL [facility] Comment: Reference ranges: ??AM (7-10am): ??6.2-19.4 mcg/dL ??PM (4-8pm): ??2.3-12.3 mcg/dL Blood specimen (specimen) 02/22/2014 4:09 PM EDT 02/22/2014 4:18 PM EDT Narrative Resulting Agency Comment Spec In Lab Camila Beaver MD CHEMISTRY ORDERAB LES Performing Organization Address City/State/[facility] Co de Phone Number [facility] * (ABNORMAL) VIT D Total Evaluation (02/22/2014 4:09 PM EDT) Pathologist [facility] Vitamin D Total 25 OH 24(L) 30 [...] insufficient or deficient. http://www.kidney.org/professionals/KDOQI/guidelines_bone/Guide7.htm http://nof.org/files/nof/public/content/clinicalupdates/clinicalupdates/Issue2 5VitaminD/2012_VitaminD.html The [employer] iSYS Vitamin D Immunoassay detects both 25-OH Vitamin D2 and 25-OH Vitamin D3, but only a total Vitamin D concentration is reported. Blood specimen (specimen) 02/22/2014 4:09 PM EDT 02/22/2014 4:18 PM EDT Narrative Resulting Agency Comment Spec In Lab Camila Beaver MD CHEMISTRY ORDERAB LES [facility] * (ABNORMAL) Comprehensive metabolic panel (non-fasting) (02/22/2014 4:09 PM EDT) [facility] Glucose 70 60 - 199 mg/dL [facility] Comment:Diabetes: >=200 mg/d L plus symptoms Blood Urea Nitrogen 11 8 - 18 mg/dL [facility] Creatinine 0.83 0.70 - 1.20 mg/dL [facility] Comment: Please note that the pediatric reference intervals supplied above were not validated at [facility]. Results from pediatric patients should be interpreted [...] [id number] Estimated Average Glucose 97 mg/dL [facility] Comment: eAG equivalents for HbA1c percentages: [...] into estimated average glucose values. ??Diabetes Care 2008:31(8):9454-1242. Blood specimen (specimen) 02/22/2014 4:09 PM EDT 02/22/2014 4:18 PM EDT Narrative Resulting Agency Comment Spec In Lab Camila Beaver MD CHEMISTRY ORDERAB LES [facility] documented in this encounter Visit Diagnoses Diagnosis [...]
--- OUTSIDE RECORDS SUMMARY | 2024-07-12 18:11 | XMS_ITS | Encounter Summary ---
Author Organization [facility] [place] [address] Care Team Providers Care Consumer Loan Processor Name Role Phone Unavailable Primary Care Provider Unavailabl e Reason for Visit * Reason Comments Follow-up Encounter Details Date Type Department Care Team ([facility] st Contact Info) Description 04/27/2013 9:45 AM EDT Follow-Up Internal Medicine at [facility] [address] [place] [phone] Liya Richardson APRN [facility] [place] [address] Fatigue (Primary Dx); Night sweats Discharge Disposition: [...] 12:00 PM EDT Office Visit Rheumatology [place] [phone] Britt Zurita MD [facility] [place] [address] documented as of this encounter Procedures Procedure Name Priority Date/Time Associated Diagnosis Comments LYME IGG & IGM ANTIBODY Routine 04/27/2013 2:31 PM EDT Fatigue Night sweats CMP W/FASTING GLUCOSE Routine 04/27/2013 2:31 PM EDT Fatigue Night sweats DIFFERENTIAL, AUTOMATED Routine 04/27/2013 2:31 PM EDT HIV SCREEN, 4TH GENERATION ([facility]/CGP/APD/NLH) Routine 04/27/2013 2:31 PM EDT Fatigue Night [...] Gran Absolute 0.01 0.00 - 0.05 x10(3)/mcL [facility] Blood specimen (specimen) 04/27/2013 2:31 PM EDT 04/27/2013 2:38 PM EDT Anila Serna MD HEMATOLOGY ORDERABL ES Performing Organization Address [facility] de Phone Number [facility] * HIV (04/27/2013 2:31 PM EDT) HIV 1/2 Ab Negative [facility] Blood specimen (specimen) 04/27/2013 2:31 PM EDT 04/27/2013 2:38 PM EDT Narrative Resulting Agency Comment Spec In Lab Anila Serna MD CHEMISTRY ORDERABLE S Performing Organization Address [facility] de Phone Number [facility] * Lactate Dehydrogenase (04/27/2013 2:31 PM EDT) Lactate Dehydrogenase 130 110 - 220 unit/L [facility] Blood specimen (specimen) 04/27/2013 2:31 PM EDT 04/27/2013 2:38 PM EDT Narrative Resulting Agency Comment Spec In Lab Anila Serna MD CHEMISTRY ORDERABLE S Performing Organization Address [facility] de Phone Number [facility] * Lyme IgG & IgM Antibody (04/27/2013 2:31 PM EDT) Lyme Antibody Neg Neg [facility] Blood specimen (specimen) 04/27/2013 2:31 PM EDT 04/28/2013 7:47 AM EDT Narrative Resulting Agency Comment Spec In Lab Anila Serna MD IMMUNOLOGY ORDERABL ES Performing Organization Address [facility] de Phone Number [facility] * TSH (04/27/2013 2:31 PM EDT) Thyroid Stimulating Hormone 1.02 0.27 - 4.20 mcIU/mL [facility] Blood specimen (specimen) 04/27/2013 2:31 PM EDT 04/27/2013 2:38 PM EDT Narrative Resulting Agency Comment Spec In Lab Anila Serna MD CHEMISTRY ORDERABLE S Performing Organization Address [facility] Phone Number [facility] * CMP w/fasting Glucose (04/27/2013 2:31 PM EDT) Glucose Fasting 95 65 - 99 mg/dL [facility] Comment: ?Fasting* Glucose Interpretive Criteria Normal ?65-99 [...] of Diabetes Mellitus, Position Statement from the [place] [employer]. ??Diabetes Care, Volume 33, Supplement 1, Nov 2009 Blood Urea Nitrogen 10 8 - 18 mg/dL [facility] Creatinine 0.75 0.70 - 1.20 mg/dL [facility] Comment: Please note that the pediatric reference intervals supplied above were not validated at [facility]. Results from pediatric patients should be interpreted [...]
== END 2024-07-12 18:05 | disposition home or self-care (01) ==
LOC: LBN 18:04
PROVIDERS: PCP Nurse Practitioner; Visit Provider Nurse Practitioner Family
DX: R19.7 Diarrhea, unspecified (principal); K58.9 Irritable bowel syndrome, unspecified
CPT/HCPCS: 82272; 83630

== ENCOUNTER 2024-07-15 01:28 | Outpatient (CLI) | payer MEDICAID, SELFPAY ==
--- OUTSIDE RECORDS SUMMARY | 2024-07-15 01:30 | XMS_ITS | Clinical Summary ---
Author Organization [facility] Address [address] [place] [address] Care Team Providers Care Business Risk Consultant Name Role Phone Kaylynn Gimenez MD Primary Care Provider + [phone] Allergies Active Allergy Reactions Criticality Noted Date [...] Department Care Team Description 06/09/2024 Lab Requisition [facility] Pathology & Laboratory Medicine - [address] [address] Outr Resulting Lab, Provider from Last 3 [...] [facility] Rheumatology & Immunology - [address] [phone] Micaela Hoff MD [address] [place] [address], [address] [place] [address] Health Maintenance Due Date Last [...] gonorrhoeae Result Negative Negative 06/10/2024 12:[address] [facility] Chlamydia trachomatis Result Negative Negative 06/10/2024 12:[address] [facility] Swab VAGINAL STRUCTURE / Unknown 06/08/2024 15:45 EDT 06/09/2024 19:46 EDT Provider Outr Resulting Lab MICROBIOLOGY - GENERAL ORDERABLES Performing Organization Address City/[facility]/ZIP Co de Phone Number [facility] [address] [place] [address] * HEPATITIS C AB W REFLEX TO HCV RNA BY PCR (03/14/2022 10:10 EDT) Hep C Antibody Negative Negative 03/17/2022 10:[address] [facility] Blood VENOUS BLOOD / Unknown 03/14/2022 10:10 EDT 03/14/2022 17:17 EDT Provider Outr Resulting Lab CHEMISTRY & BLOOD GAS ORDERABLES Performing Organization Address City/[facility]/ZIP Co de Phone Number [facility] [address] [place] [address] from Last 3 Months or Most Recently Relevant to Health Maintenance Additional Health Concerns Infection Onset Date Last Indicated MRSA 10/20/2011 10/20/2011 Advance Directives For more information, please contact: [phone] * Full Code (Latest Code Status on File) Date Activated Date Inactivated Comments 07/18/2014 22:50 07/20/2014 11:51 * Full Code Date Activated Date Inactivated Comments 07/18/2014 16:13 07/18/2014 22:50 * Full Code Date Activated Date Inactivated Comments 07/11/2014 13:00 07/11/2014 16:39 * Full Code Date Activated Date Inactivated Comments 06/29/2014 18:01 06/29/2014 20:14 Care Teams Business Risk Consultant Relationship Specialty Start Date End Date Kaylynn Gimenez MD [address] [place] [address] PCP - General 03/02/15
--- OUTSIDE RECORDS SUMMARY | 2024-07-15 01:31 | XMS_ITS | Encounter Summary ---
Author Organization [facility] Address [address] [place] [address] Care Team Providers Care Percolator Operator Name Role Phone None, Provider Primary Care Provider Unavailabl e Encounter Details Date Type Department Care Team (Late st Contact Info) Description 07/11/2014 Documentation Visit [facility] Obstetrics & Midwifery [address] [phone] Linda Bustillos MD Social History Tobacco Use [...] [facility] Rheumatology & Immunology - [address] [phone] Micaela Hoff MD [address] [place] [address], [address] [place] [address] documented as of this encounter Visit Diagnoses Not on filedocumented in this encounter Additional Health Concerns Infection Onset Date Last Indicated Resolved Time MRSA 10/20/2011 10/20/2011 documented as of this encounter Care Teams Percolator Operator Relationship Specialty Start Date End Date None, Provider PCP - General 06/09/14 03/01/15 documented as of this encounter
--- OUTSIDE RECORDS SUMMARY | 2024-07-15 01:31 | XMS_ITS | Encounter Summary ---
Author Organization [facility] Address [address] [place] [address] Care Team Providers Care Program Development Manager Name Role Phone Kaylynn Jones MD Primary Care Provider + [phone] Encounter Details Date Type Department Care Team (Late st Contact Info) Description 09/10/2015 Results Only [facility] [phone] Roberto Zuleta MD [address] [place] [phone] Social History Tobacco Use Types Packs/Day Years [...] [facility] - [address] [phone] Micaela Hoff MD [address] [facility], [address] [place] [phone] documented as of this encounter Procedures Procedure [...] ? TERI SMITH ? Accession #: ? [id number] ? : ? 1980 (Age: 35) ??F [...] Santos 09/11/2015 10:58 AM End of Report [facility] 09/10/2015 10:0 0 EST 09/11/2015 10:00 EST Roberto Zuleta MD PATHOLOGY ORDERABLES [facility] [address] [place] [address] documented in this encounter Visit Diagnoses Not on filedocumented in this encounter Additional Health Concerns Infection Onset Date Last Indicated Resolved Time MRSA 10/20/2011 10/20/2011 documented as of this encounter Care Teams Program Development Manager Relationship Specialty Start Date End Date Kaylynn Jones MD [facility] [place] [address] PCP - General 03/02/15 documented as of this encounter
--- OUTSIDE RECORDS SUMMARY | 2024-07-15 01:31 | XMS_ITS | Encounter Summary ---
Author Organization [facility] Address [address] [place] [address] Care Team Providers Care Whittling Room Operator Name Role Phone Kaylynn Gimenez MD Primary Care Provider + [phone] Encounter Details Date Type Department Care Team (Latest Contact Info) Description 09/10/2015 15:36 EST - 09/10/2015 23:59 [facility] Hospital Encounter [address] [address] Unknown, Provider, Discharge Disposition: Home or Self [...] Self Group Home documented in this encounter Plan of Treatment Upcoming Encounters Date Type Department Care Team (Late st Contact Info) Description 12/29/2024 10:[address] [facility] Rheumatology & Immunology - [address] [address] iMcaela Hoff MD [address] [place] [address], [address] [place] [phone] documented as of this encounter Visit Diagnoses Not on filedocumented in this encounter Additional Health Concerns Infection Onset Date Last Indicated Resolved Time MRSA 10/20/2011 10/20/2011 documented as of this encounter Care Teams Whittling Room Operator Relationship Specialty Start Date End Date Kaylynn Gimenez MD [address] [place] [phone] PCP - General 03/02/15 documented as of this encounter
--- OUTSIDE RECORDS SUMMARY | 2024-07-15 01:31 | XMS_ITS | Encounter Summary ---
Author Organization [facility] Address [address] [place] [address] Care Team Providers Care Colorer Name Role Phone Kaylynn Gimenez MD Primary Care Provider + [phone] Encounter Details Date Type Department Care Team (Late st Contact Info) Description 03/14/2022 Lab Requisition [facility] Pathology & Laboratory Medicine [address] [address] Outr Resulting Lab, Provider Social History Tobacco [...] [facility] Rheumatology & Immunology - [address] [phone] Micaela Hoff MD [address] [place] [address], [address] [place] [phone] documented as of this encounter Procedures Procedure Name Priority Date/Time Associated Diagnosis Comments HIV 1/2 ANTIGEN AND ANTIBODY, 4TH GENERATION Routine 03/14/2022 10:10 EDT documented in this encounter Results * HIV 1/2 ANTIGEN AND ANTIBODY, 4TH GENERATION (03/14/2022 10:10 EDT) HIV 1 and 2 Antibody/p24 Antigen, 4th Generation Negative Negative 03/17/2022 10:43 EDT [facility] Comment:If acute HIV-1 infec tion is suspected in a high risk patient, submit plasma specimen for HIV-1 RNA quantitation test. Blood VENOUS BLOOD / Unknown 03/14/2022 10:10 EDT 03/14/2022 17:17 EDT Narrative [facility] - 03/17/2022 10:43 EDT Fourth Generation assay performed on the Siem[employer] XPT. Provider Outr Resulting Lab IMMUNOLOGY A ND SEROLOGY ORDERABLES [facility] [address] [place] [address] documented in this encounter Visit Diagnoses Not on filedocumented in this encounter Additional Health Concerns Infection Onset Date Last Indicated Resolved Time MRSA 10/20/2011 10/20/2011 documented as of this encounter Care Teams Colorer Relationship Specialty Start Date End Date Kaylynn Gimenez MD [facility] [place] [phone] PCP - General 03/02/15 documented as of this encounter
--- OUTSIDE RECORDS SUMMARY | 2024-07-15 01:31 | XMS_ITS | Encounter Summary ---
Author Organization [facility] Address [address] [place] [address] Care Team Providers Care Family Support Worker Name Role Phone None, Provider Primary Care Provider Unavailabl e Encounter Details Date Type Department Care Team (Late st Contact Info) Description 08/08/2014 Orders Only [facility] - [address] [address] Luz Maria Cortes LPN [address] [place] [address] Social History Tobacco Use Types Packs/Day Years [...] EST Office Visit [facility] Rheumatology & Immunology - [address] [address] Micaela Hoff MD [address] [place] [address], [facility] [address] [place] [address] documented as of this encounter Visit Diagnoses Not on filedocumented in this encounter Additional Health Concerns Infection Onset Date Last Indicated Resolved Time MRSA 10/20/2011 10/20/2011 documented as of this encounter Care Teams Family Support Worker Relationship Specialty Start Date End Date None, Provider PCP - General 06/09/14 03/01/15 documented as of this encounter
--- OUTSIDE RECORDS SUMMARY | 2024-07-15 01:31 | XMS_ITS | Encounter Summary ---
Author Organization [facility] Address [address] [place] [address] Care Team Providers Care Farm Machinery Mechanic Name Role Phone Kaylynn Gimenez MD Primary Care Provider + [phone] Encounter Details Date Type Department Care Team (Late st Contact Info) Description 06/20/2022 Lab Requisition [facility] Pathology & Laboratory Medicine [address] [address] Outr Resulting Lab, Provider Social History Tobacco [...] [facility] Rhe[facility] Immunology - [address] [phone] Micaela Hoff MD [address] [place] [address], [address] [place] [phone] documented as of this encounter Procedures Procedure Name Priority Date/Time Associated Diagnosis Comments CORTISOL Routine 06/20/2022 7:18 EDT documented in this encounter Results * CORTISOL (06/20/2022 7:18 EDT) Cortisol 14 See Note ug/dL 06/20/2022 18:00 EDT [facility] Comment: NOTE: Reference Ranges (from OCD IFU): Collected Before 10:00 AM: ??4 - 23 ug/dL Collected After 5:00 PM: ?2 - 14 ug/dL The results of this assay can be falsely elevated due to the consumption of Biotin. Blood VENOUS BLOOD / Unknown 06/20/2022 7:18 EDT 06/20/2022 17:17 EDT Provider Outr Resulting Lab CHEMISTRY & BLOOD GAS ORDERABLES [facility] [address] [place] [address] documented in this encounter Visit Diagnoses Not on filedocumented in this encounter Additional Health Concerns Infection Onset Date Last Indicated Resolved Time MRSA 10/20/2011 10/20/2011 documented as of this encounter Care Teams Farm Machinery Mechanic Relationship Specialty Start Date End Date Kaylynn Gimenez MD [address] [place] [address] PCP - General 03/02/15 documented as of this encounter
--- OUTSIDE RECORDS SUMMARY | 2024-07-15 01:31 | XMS_ITS | Encounter Summary ---
Author Organization [facility] Address [address] [place] [address] Care Team Providers Care Earring Maker Name Role Phone None, Provider Primary Care Provider Unavailabl e Reason for Referral * (Routine) - Closed Specialty Diagnoses / Procedures Referred By Ehsan patel Referred To Contact Liya Stone MD [address] [place] [id number] Referral ID Status Reason Start Date Expiration Date V isits Requested Visits Authorized [id number] Closed Specialty Services Required 07/20/2014 1 1 Encounter Details Date Type Department Care Team (Late st Contact Info) Description 07/18/2014 12:22 EDT - 07/20/2014 9:40 EDT Hospital Encounter [facility] Mother/Baby Unit [address] [place] [address] [phone] Robb Nam MD [address] [address] Chester Howell MD [address] [address] Linda Valdes MD Short cervix, [...] Summaries * Liya Stone MD - 07/19/2014 5165 EDT Discharge Summary Chief Complaint: History of [...] was discharged withplan for follow-up in the [facility] clinic in 1-2 weeks. Relevant Studies [...] documented in this encounter Progress Notes * ITALIAN TUTOR, ISELA 2 - 07/28/2014 1440 EDT * [...] No VB. 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 Recommend against intercourse until cerclage is out at 36 weeks. Has appt set for , at which time she will also have her anatomy US. CHESTER HOWELL MD * Marisol Howell, RN - 07/19/2014 1407 EDT 1358- Pt ambulated into OR 1. insulation foreman as well as family medicine resident present. James Valdes and Too also in OR for WHO prior to spinal placement. * Rosey Manning RN - 07/19/2014 1259 EDT 1225- pt to unit from [facility] via bed, shown to room 11. FOB Aditya at pt bedside. Pt is 17+5w [id number] a short cervix, here for a cerclage [...] for progesterone dose tomorrow at 1300 in [place], plan to keep appt and discharge in morning. Will give dose here if pt staying into the afternoon. Will be going to [facility] overnight, room is ready and pt [...] EDT Transferred via wheelchair by transport to [facility]. IV to saline lock documented in this encounter H&P Notes * Chester Howell MD - 07/18/2014 1318 EDT Department of Obstetrics History & Physical Admit Date: 07/18/2014 Chief Complaint: short cervix, h/o PTD Provider: Chester Howell HPI: Teri Smith is a 34 y.o. @ 17w4d by 5w5d US who is here for a cerclage for a shortening cervix. She is followed by [facility] for history of PTD @ 21 [...] Date ??? Upper gastrointestinal endoscopy 09/03/2010 ??? Gideon tooth extraction ??? Endometrial biopsy Prevocational/Rehabilitation Counselor History Social History H/o LEEP after 20 [...] documented in this encounter Nursing Notes * ITALIAN TUTOR, SCAN 2 - 07/25/2014 8669 EDT documented in this encounter OR Notes [...] PROCEDURE: Santos cerclage. SURGEON: Linda Valdes MD LINUX ARCHITECT: Rehan Abarca MD ANESTHESIA: FLUIDS: 1000 mL [...] PM / Rehan Abarca MD cn Confirmation: [id number] Dictation ID: [id number] cc: Rehan Abarca MD * OR PostOp - Linda Valdes MD - 07/19/2014 6060 EDT Brief Post-Op Note Date of Surgery: [...] 07/19/2014 15:48 * Anesthesia Procedure Notes - ITALIAN TUTOR, SCAN 2 - 07/19/2014 1534 EDT documented [...] Date: 07/19/2014 Age: 34 y.o. GA: 17w5d Sales And Leasing Agent: Chester Howell MD Obstetric History: 34 yo [...] Date ??? Upper gastrointestinal endoscopy 09/03/2010 ??? Gideon tooth extraction ??? Endometrial biopsy Current Facility-Administered [...] Care - Bridget Robbins RN - 07/19/2014 794 EDT Problem: PAIN Goal: Patient???s pain/discomfort is [...] Care - Manuel Chappell RN - 07/18/2014 8705 EDT Problem: MAINTENANCE/ SUPPORT Goal: Maintain Outcome: [...] [facility] - [address] [address] Micaela Hoff MD [address] [place] [address], [address] [place] [phone] Scheduled Referrals Name Type Priority Associated Diagnoses [...] & PF4 ORD ERABLES Performing Organization Address City/[facility]/ZIP Co de Phone Number [facility] [address] [place] [address] * INPATIENT ADD-ON (07/19/2014 8:55 EDT) Tests to be added CBC ( SAMPLE IS IN BLOOD BANK) [facility] Number for problems [id number] [facility] Accession number [id number] [facility] 07/19/2014 8:55 EDT 07/19/2014 8:57 EDT Lillian Rainey MD HEMATOLOGY & PF4 OR DERABLES Performing Organization Address City/[facility]/ZIP Co de Phone Number [facility] [address] [place] [address] * HEMAGRAM (07/19/2014 8:06 EDT) WBC UNABLE [...] HEMATOLOGY & PF4 ORD ERABLES [facility] [address] [place] [address] * TYPE AND SCREEN (07/19/2014 7:50 EDT) [...] documented as of this encounter Care Teams Earring Maker Relationship Specialty Start Date End Date None, Provider PCP - General 06/09/14 03/01/15 documented as of this encounter
--- OUTSIDE RECORDS SUMMARY | 2024-07-15 01:31 | XMS_ITS | Encounter Summary ---
Author Organization [facility] Address [address] [place] [address] Care Team Providers Care Metal Cut Off Saw Operator Name Role Phone None, Provider Primary Care Provider Unavailabl e Reason for Visit * Reason Onset Date Comments Appointment Related 09/27/2014 Encounter Details Date Type Department Care Team (Late st Contact Info) Description 09/27/2014 Telephone [facility] Obstetrics & Midwifery - [facility] [address] [place], [place] [phone] Soledad Crawley, RN Appointment Related Social History [...] message left on house voicemail. Call to [facility] printing manager to inquire- patient has been receiving routine care at their office and plans to deliver in [place]- does not plan on coming back to [place] for appointments/delivery unless she has to (ie: she goes into PTL). Offered to fax patient's records for continuity of care- [facility] has all of patient'srecords. documented in this encounter Plan of Treatment Upcoming Encounters Date Type Department Care Team (Late st Contact Info) Description 12/29/2024 10:20 EST Office Visit [facility] Rheumatology & Immunology - [address] [address] Micaela Hoff MD 111 [facility], [address] [place] [address] documented as of this encounter Visit Diagnoses Not on filedocumented in this encounter Additional Health Concerns Infection Onset Date Last Indicated Resolved Time MRSA 10/20/2011 10/20/2011 documented as of this encounter Care Teams Metal Cut Off Saw Operator Relationship Specialty Start Date End Date None, Provider PCP - General 06/09/14 03/01/15 documented as of this encounter
--- OUTSIDE RECORDS SUMMARY | 2024-07-15 01:31 | XMS_ITS | Encounter Summary ---
Author Organization [facility] Address [address] [place] [address] Care Team Providers Care Hot Oiler Name Role Phone Kaylynn Gimenez MD Primary Care Provider + [phone] Encounter Details Date Type Department Care Team (Late st Contact Info) Description 07/16/2021 Lab Requisition [facility] Pathology & Laboratory Medicine [address] [address] Outr Resulting Lab, Provider Social History Tobacco [...] Visit [facility] Rheumatology & Immunology - [address] [phone] Micaela Hoff MD [address] [place] [address], [address] [place] [phone] documented as of this encounter Procedures Procedure Name Priority Date/Time Associated Diagnosis Comments CELIAC DISEASE PANEL Routine 07/16/2021 12:55 EDT HEPATITIS C AB W REFLEX TO HCV RNA BY PCR Routine 07/16/2021 12:55 EDT documented in this encounter Results * HEPATITIS C AB W REFLEX TO HCV RNA BY PCR (07/16/2021 12:55 EDT) Hep C Antibody Negative Negative 07/17/2021 10:31 EDT [facility] Blood VENOUS BLOOD / Unknown 07/16/2021 12:55 EDT 07/16/2021 21:37 EDT Provider Outr Resulting Lab CHEMISTRY & BLOOD GAS ORDERABLES Performing Organization Address City/State/[facility] Co de Phone Number [facility] [address] [place] [address] * CELIAC DISEASE PANEL (07/16/2021 12:55 EDT) Tissue Transglutaminase Antibody IGA <1.2 <4.0 U/mL 07/17/2021 12:06 EDT [facility] Comment: A negative result may be due to IgA deficiency and does not rule out celiac disease. ? Negative: ??<4.0 U/mL ? Weak Positive: ??4.0 - 10.0 U/mL ? Positive: ??>10.0 U/mL Results were obtained with the [employer] QUANTA Lite R h-tTG IgA YONATHAN assay on the [employer] DSX. IgA 191 85 - 499 mg/dL 07/17/2021 12:06 EDT [facility] Celiac Disease Interpretation Negative Serology. Celiac disease unlikely. Approximately 10% of patients with celiac disease are seronegative. Patients who are already adhering to a gluten-free diet may also be seronegative. If celiac disease is highly clinically suspected, referral to gastroenterology for additional evaluation is recommended. 07/17/2021 12:06 EDT [facility] Blood VENOUS BLOOD / Unknown 07/16/2021 12:55 EDT 07/16/2021 21:37 EDT Provider Outr Resulting Lab IMMUNOLOGY A ND SEROLOGY ORDERABLES Performing Organization Address City/State/[facility] Co de Phone Number [facility] [address] [place] [address] documented in this encounter Visit Diagnoses Not on filedocumented in this encounter Additional Health Concerns Infection Onset Date Last Indicated Resolved Time MRSA 10/20/2011 10/20/2011 documented as of this encounter Care Teams Hot Oiler Relationship Specialty Start Date End Date Kaylynn Gimenez MD [address] [place] [phone] PCP - General 03/02/15 documented as of this encounter
--- OUTSIDE RECORDS SUMMARY | 2024-07-15 01:31 | XMS_ITS | Encounter Summary ---
Author Organization [facility] Address [address] [place] [address] Care Team Providers Care Dust Mixer Name Role Phone None, Provider Primary Care Provider Unavailabl e Encounter Details Date Type Department Care Team (Late st Contact Info) Description 12/13/2014 Results Only [facility] - [facility] [address] [place], [place] [address] Giovanni Souza MD [address] [place] [address] [address] [place], [place] [phone] Social History Tobacco Use Types Packs/Day Years [...] Info) Description 12/29/2024 10:20 EST Office Visit [facility] Rheumatology & Immunology - [facility] [address] [place], [place] [phone] Micaela Hoff MD 111 [facility], [address] [place] [phone] documented as of this encounter Procedures Procedure [...] ? TERI SMITH ? Accession #: ? [id number] ? : ? 1980 (Age: 34) ??F [...] Sectioning reveals a central pinpoint lumen. ??Two telephone sales representative cross sections are submitted as A1. B. ?Received in formalin labelled with proper patient identification (initials S, E) and portion right tube is a tubular structure (2.2 cm in length and 0.5 cm in diameter). ??The serosal surface is and smooth. Sectioning reveals a central pinpoint lumen. ??Two telephone sales representative cross sections are submitted as B1. Angi Mcdaniel 12/14/2014 9:37 AM End of Report [facility] 12/13/2014 9:01 EST 12/14/2014 9:01 EST Giovanni Souza MD PATHOLOGY ORDERABLES [facility] [address] [place] [address] documented in this encounter Visit Diagnoses Not on filedocumented in this encounter Additional Health Concerns Infection Onset Date Last Indicated Resolved Time MRSA 10/20/2011 10/20/2011 documented as of this encounter Care Teams Dust Mixer Relationship Specialty Start Date End Date None, Provider PCP - General 06/09/14 03/01/15 documented as of this encounter
--- OUTSIDE RECORDS SUMMARY | 2024-07-15 01:31 | XMS_ITS | Encounter Summary ---
Author Organization [facility] Address [address] [place] [address] Care Team Providers Care Child Support Agent Name Role Phone Kaylynn Gimenez MD Primary Care Provider + [phone] Reason for Visit * Reason Onset Date Comments Medications Refill 07/08/2022 Encounter Details Date Type Department Care Team (Late st Contact Info) Description 07/08/2022 Telephone [facility] Endocrinology - [facility] [address] [place] [address] Susan Hensley MD [address] [facility] [address] [place] [address] Medications Refill Social History Tobacco [...] Encounter - Gilma Puente RN - 07/24/2022 0957 EDT Patient picked up a 90 day supply of lancets at [facility] on 06/12/22. Gilma Puente RN * [...] [facility] - [address] [address] Micaela Hoff MD [address] [place] [address], [address] [place] [address] documented as of this encounter Visit Diagnoses Not on filedocumented in this encounter Additional Health Concerns Infection Onset Date Last Indicated Resolved Time MRSA 10/20/2011 10/20/2011 documented as of this encounter Care Teams Child Support Agent Relationship Specialty Start Date End Date Kaylynn Gimenez MD [address] [place] [phone] PCP - General 03/02/15 documented as of this encounter
--- OUTSIDE RECORDS SUMMARY | 2024-07-15 01:31 | XMS_ITS | Encounter Summary ---
Author Organization [facility] Address [address] [place] [address] Care Team Providers Care Commercial Hvac Service Technician Name Role Phone None, Provider Primary Care Provider Unavailabl e Encounter Details Date Type Department Care Team (Late st Contact Info) Description 07/13/2014 Documentation Visit [facility] Obstetrics & Midwifery [address] [address] Rehan Abarca MD [address] [place] [address] [place] [address] Social History Tobacco Use Types Packs/Day Years [...] [facility] - [address] [phone] Micaela Hoff MD [address] [place] [address], [address] [place] [address] documented as of this encounter Visit Diagnoses Not on filedocumented in this encounter Additional Health Concerns Infection Onset Date Last Indicated Resolved Time MRSA 10/20/2011 10/20/2011 documented as of this encounter Care Teams Commercial Hvac Service Technician Relationship Specialty Start Date End Date None, Provider PCP - General 06/09/14 03/01/15 documented as of this encounter
--- OUTSIDE RECORDS SUMMARY | 2024-07-15 01:31 | XMS_ITS | Encounter Summary ---
Author Organization [facility] Address [address] [place] [address] Care Team Providers Care Piped Buttonhole Machine Operator Name Role Phone None, Provider Primary Care Provider Unavailabl e Encounter Details Date Type Department Care Team (Late st Contact Info) Description 08/08/2014 9:06 EDT - 08/08/2014 23:59 EDT Hospital Encounter [facility] [phone] Tasha Torres MD 111 [facility], [address] [place] [phone] Discharge Disposition: Home or Self Care Social [...] [facility] Rheumatology & Immunology - [address] [phone] Micaela Hoff MD [address] [place] [address], [address] [place] [phone] documented as of this encounter Visit Diagnoses Not on filedocumented in this encounter Additional Health Concerns Infection Onset Date Last Indicated Resolved Time MRSA 10/20/2011 10/20/2011 documented as of this encounter Care Teams Piped Buttonhole Machine Operator Relationship Specialty Start Date End Date None, Provider PCP - General 06/09/14 03/01/15 documented as of this encounter
--- OUTSIDE RECORDS SUMMARY | 2024-07-15 01:31 | XMS_ITS | Encounter Summary ---
Author Organization [facility] Address [address] [place] [address] Care Team Providers Care Tire Service Technician Name Role Phone Kaylynn Gimenez MD Primary Care Provider + [phone] Encounter Details Date Type Department Care Team (Late st Contact Info) Description 05/15/2022 Lab Requisition [facility] Pathology & Laboratory Medicine [address] [address] Outr Resulting Lab, Provider Social History Tobacco [...] Info) Description 12/29/2024 10:20 EST Office Visit [facility] Rheumatology & Immunology - [address] [address] Micaela Hoff MD [address] [place] [address], [address] [place] [phone] documented as of this encounter Procedures Procedure Name Priority Date/Time Associated Diagnosis Comments ZZCOVID-19 TEST [facility] PCR Today 05/14/2022 13:30 EDT COVID-19 TESTING Routine 05/14/2022 13:3 0 EDT documented in this encounter Results * COVID-19 TEST [facility] PCR (05/14/2022 13:30 EDT) Swab 05/14/2022 13:3 0 EDT 05/15/2022 17:22 EDT Provider Outr Resulting Lab MICROBIOLOGY - GENERAL ORDERABLES [facility] [address] [place] [address] * COVID-19 TESTING (05/14/2022 13:30 EDT) COVID-19 rt-PCR Result Negative Negative 05/16/2022 14:18 EDT [facility] Comment: This test has [...] history, and epidemiological information. Performed on the [employer] Fusion instrument This is an appended report. ??These results have been appended to a previously preliminary verified report. Performing Lab [place] [facility] 05/16/2022 14:18 EDT [facility] Swab 05/14/2022 13:3 0 EDT 05/15/2022 17:22 EDT Provider Outr Resulting Lab MICROBIOLOGY - GENERAL ORDERABLES Performing Organization Address City/State/[facility] Co de Phone Number [facility] [address] [place] [address] documented in this encounter Visit Diagnoses Not on filedocumented in this encounter Additional Health Concerns Infection Onset Date Last Indicated Resolved Time MRSA 10/20/2011 10/20/2011 documented as of this encounter Care Teams Tire Service Technician Relationship Specialty Start Date End Date Kaylynn Gimenez MD [facility] [place] [address] PCP - General 03/02/15 documented as of this encounter
--- OUTSIDE RECORDS SUMMARY | 2024-07-15 01:31 | XMS_ITS | Encounter Summary ---
Author Organization [facility] Address [address] [place] [address] Care Team Providers Care Case Assistant Name Role Phone Kaylynn Gimenez MD Primary Care Provider + [phone] Encounter Details Date Type Department Care Team (Late st Contact Info) Description 06/09/2024 Lab Requisition [facility] Pathology & Laboratory Medicine [address] [address] Outr Resulting Lab, Provider Social History Tobacco [...] Info) Description 12/29/2024 10:20 EST Office Visit [facility] Rheumatology & Immunology - [address] [phone] Micaela Hoff MD [address] [place] [address], [address] [place] [phone] documented as of this encounter Procedures Procedure Name Priority Date/Time Associated Diagnosis Comments CHLAMYDIA/N. GONORRHOEAE AMPLIFIED NUCLEIC ACID Routine 06/08/2024 15:45 EDT documented in this encounter Results * CHLAMYDIA/N. GONORRHOEAE AMPLIFIED NUCLEIC ACID (06/08/2024 15:45 EDT) Neisseria gonorrhoeae Result Negative Negative 06/10/2024 12:11 EDT [facility] Chlamydia trachomatis Result Negative Negative 06/10/2024 12:11 EDT [facility] Swab VAGINAL STRUCTURE / Unknown 06/08/2024 15:45 EDT 06/09/2024 19:46 EDT Provider Outr Resulting Lab MICROBIOLOGY - GENERAL ORDERABLES [facility] [address] [place] [address] documented in this encounter Visit Diagnoses Not on filedocumented in this encounter Additional Health Concerns Infection Onset Date Last Indicated Resolved Time MRSA 10/20/2011 10/20/2011 documented as of this encounter Care Teams Case Assistant Relationship Specialty Start Date End Date Kaylynn Gimenez MD [facility] [place] [address] PCP - General 03/02/15 documented as of this encounter
--- OUTSIDE RECORDS SUMMARY | 2024-07-15 01:31 | XMS_ITS | Encounter Summary ---
Author Organization [facility] Address [address] [place] [address] Care Team Providers Care Call Center Representative Name Role Phone Kaylynn Gimenez MD Primary Care Provider + [phone] Reason for Visit * Reason Onset Date Comments Medications Refill 03/25/2023 Encounter Details Date Type Department Care Team (Late st Contact Info) Description 03/25/2023 Telephone [facility] Endocrinology [address] [place], [place] [address] Hina Townsend MD [address] [facility] [address] [place] [address] Medications Refill Social History Tobacco [...] Visit [facility] Rheumatology & Immunology - [address] [phone] Micaela Hoff MD [address] [place] [address], [address] [place] [phone] documented as of this encounter Visit Diagnoses Not on filedocumented in this encounter Additional Health Concerns Infection Onset Date Last Indicated Resolved Time MRSA 10/20/2011 10/20/2011 documented as of this encounter Care Teams Call Center Representative Relationship Specialty Start Date End Date Kaylynn Giemnez MD [address] [place] [phone] PCP - General 03/02/15 documented as of this encounter
--- OUTSIDE RECORDS SUMMARY | 2024-07-15 01:31 | XMS_ITS | Encounter Summary ---
Author Organization [facility] Address [address] [place] [address] Care Team Providers Care Stemmer Machine Name Role Phone None, Provider Primary Care Provider Unavailabl e Reason for Visit * Reason Onset Date Comments Headache 07/21/2014 Encounter Details Date Type Department Care Team (Late st Contact Info) Description 07/21/2014 Telephone [facility] Reproductive Medicine & Infertility Center - [facility] [address] [place] [address] Aura Bui, RN [address] [place] [address] Headache Social History Tobacco Use Types Packs/Day [...] [facility] Rheumatology & Immunology - [address] [phone] Micaela Hoff MD [address] [place] [address], [address] [place] [address] documented as of this encounter Visit Diagnoses Not on filedocumented in this encounter Additional Health Concerns Infection Onset Date Last Indicated Resolved Time MRSA 10/20/2011 10/20/2011 documented as of this encounter Care Teams Stemmer Machine Relationship Specialty Start Date End Date None, Provider PCP - General 06/09/14 03/01/15 documented as of this encounter
--- OUTSIDE RECORDS SUMMARY | 2024-07-15 01:31 | XMS_ITS | Encounter Summary ---
Author Organization [facility] Address [address] [place] [address] Care Team Providers Care Multimedia Specialist Name Role Phone Kaylynn Gimenez MD Primary Care Provider + [phone] Encounter Details Date Type Department Care Team (Late st Contact Info) Description 03/14/2022 Lab Requisition [facility] Pathology & Laboratory Medicine [address] [address] Outr Resulting Lab, Provider Social History Tobacco [...] [facility] - [address] [phone] Micaela Hoff MD [address] [place] [address], Level 5 [place] [phone] documented as of this encounter Procedures Procedure Name Priority Date/Time Associated Diagnosis Comments HEPATITIS C AB W REFLEX TO HCV RNA BY PCR Routine 03/14/2022 10:10 EDT documented in this encounter Results * HEPATITIS C AB W REFLEX TO HCV RNA BY PCR (03/14/2022 10:10 EDT) Hep C Antibody Negative Negative 03/17/2022 10:18 EDT [facility] Blood VENOUS BLOOD / Unknown 03/14/2022 10:10 EDT 03/14/2022 17:17 EDT Provider Outr Resulting Lab CHEMISTRY & BLOOD GAS ORDERABLES [facility] [address] [place] [address] documented in this encounter Visit Diagnoses Not on filedocumented in this encounter Additional Health Concerns Infection Onset Date Last Indicated Resolved Time MRSA 10/20/2011 10/20/2011 documented as of this encounter Care Teams Multimedia Specialist Relationship Specialty Start Date End Date Kaylynn Gimenez MD [address] [place] [phone] PCP - General 03/02/15 documented as of this encounter
--- OUTSIDE RECORDS SUMMARY | 2024-07-15 01:31 | XMS_ITS | Encounter Summary ---
Author Organization [facility] Address [address] [place] [address] Care Team Providers Care Debt Counselor Name Role Phone Kaylynn Gimenez MD Primary Care Provider + [phone] Encounter Details Date Type Department Care Team (Late st Contact Info) Description 03/21/2024 Lab Requisition [facility] Pathology & Laboratory Medicine [address] [address] Outr Resulting Lab, Provider Social History Tobacco [...] 10:20 EST Office Visit [facility] Rheumatology & Immunology - [address] [phone] Micaela Hoff MD [address] [place] [address], Level [address] [place] [phone] documented as of this encounter Procedures Procedure Name Priority Date/Time Associated Diagnosis Comments CCP ANTIBODIES Routine 03/21/2024 9:04 EDT RHEUMATOID FACTOR Routine 03/21/2024 9:0 4 EDT ANTI NUCLEAR AB (LIZZIE), IFA Routine 03/21/2024 9:04 EDT documented in this encounter Results * RHEUMATOID FACTOR (03/21/2024 9:04 EDT) Rheumatoid Factor 10.5 <12.0 IU/mL 03/21/2024 17:39 EDT [facility] Blood VENOUS BLOOD / Unknown 03/21/2024 9:04 EDT 03/21/2024 17:19 EDT Provider Outr Resulting Lab CHEMISTRY & BLOOD GAS ORDERABLES [facility] [address] [place] [phone] * (ABNORMAL) ANTI NUCLEAR AB (LIZZIE), IFA (03/21/2024 9:04 EDT) LIZZIE Interpretation Positive(A) Negative 03/22/2024 14:31 EDT [facility] Comment: For titers greater [...] 1:320 Dense Fine Speckled 03/22/2024 14:31 EDT [facility] Blood VENOUS BLOOD / Unknown 03/21/2024 9:04 EDT 03/21/2024 17:19 EDT Narrative [facility] - 03/22/2024 14:31 EDT Results were obtained with the [employer] NOVA Lite HEp-2 LIZZIE Kit by indirect immunofluorescence. Provider Outr Resulting Lab IMMUNOLOGY A ND SEROLOGY ORDERABLES Performing Organization Address City/[facility]/ZIP Co de Phone Number [facility] [address] [place], [place] [phone] * CCP ANTIBODIES (03/21/2024 9:04 EDT) CCP Antibodies <2.5 <5.0 U/mL 03/22/2024 9:26 EDT [facility] Blood VENOUS BLOOD / Unknown 03/21/2024 9:04 EDT 03/21/2024 17:19 EDT Provider Outr Resulting Lab IMMUNOLOGY A ND SEROLOGY ORDERABLES Performing Organization Address [facility] Co de Phone Number [facility] [address] [place], [place] [phone] documented in this encounter Visit Diagnoses Not on filedocumented in this encounter Additional Health Concerns Infection Onset Date Last Indicated Resolved Time MRSA 10/20/2011 10/20/2011 documented as of this encounter Care Teams Debt Counselor Relationship Specialty Start Date End Date Kaylynn Gimenez MD [facility] [place] [phone] PCP - General 03/02/15 documented as of this encounter
--- OUTSIDE RECORDS SUMMARY | 2024-07-15 01:31 | XMS_ITS | Encounter Summary ---
Author Organization [facility] Address [address] [place] [address] Care Team Providers Care Final Coat Sprayer Name Role Phone None, Provider Primary Care Provider Unavailabl e Encounter Details Date Type Department Care Team (Late st Contact Info) Description 07/11/2014 Phlebotomy Only [address] [address] [place], Outpatient Social History Tobacco Use Types Packs/Day [...] [facility] Rheumatology & Immunology [address] [address] Micaela Hoff MD 111 [facility], [facility] [address] [place] [phone] documented as of this encounter Visit Diagnoses Not on filedocumented in this encounter Additional Health Concerns Infection Onset Date Last Indicated Resolved Time MRSA 10/20/2011 10/20/2011 documented as of this encounter Care Teams Final Coat Sprayer Relationship Specialty Start Date End Date None, Provider PCP - General 06/09/14 03/01/15 documented as of this encounter
--- OUTSIDE RECORDS SUMMARY | 2024-07-15 01:31 | XMS_ITS | Encounter Summary ---
Author Organization [facility] Address [address] [place] [address] Care Team Providers Care Engineer Systems Name Role Phone Kaylynn Gimenez MD Primary Care Provider + [phone] Encounter Details Date Type Department Care Team (Late st Contact Info) Description 03/12/2022 Lab Requisition [facility] Pathology & Laboratory Medicine [address] [address] Outr Resulting Lab, Provider Social History Tobacco [...] [facility] Rheumatology & Immunology - [address] [phone] Micaela Hoff MD [address] [place] [address], [address] [place] [phone] documented as of this encounter Procedures Procedure Name Priority Date/Time Associated Diagnosis Comments CHLAMYDIA/N. GONORRHOEAE AMPLIFIED NUCLEIC ACID Routine 03/12/2022 13:30 EDT documented in this encounter Results * CHLAMYDIA/N. GONORRHOEAE AMPLIFIED RNA (03/12/2022 13:30 EDT) Neisseria gonorrhoeae Result Negative Negative 03/13/2022 14:35 EDT [facility] Chlamydia trachomatis Result Negative Negative 03/13/2022 14:35 EDT [facility] Swab ENTIRE WALL OF CERVIX / Unknown 03/12/2022 13:30 EDT 03/12/2022 21:52 EDT Provider Outr Resulting Lab MICROBIOLOGY - GENERAL ORDERABLES Performing Organization Address City/State/[facility] Co de Phone Number [facility] [address] [place] [address] documented in this encounter Visit Diagnoses Not on filedocumented in this encounter Additional Health Concerns Infection Onset Date Last Indicated Resolved Time MRSA 10/20/2011 10/20/2011 documented as of this encounter Care Teams Engineer Systems Relationship Specialty Start Date End Date Kaylynn Gimenez MD [facility] [place] [address] PCP - General 03/02/15 documented as of this encounter
--- OUTSIDE RECORDS SUMMARY | 2024-07-15 01:31 | XMS_ITS | Encounter Summary ---
Author Organization [facility] Address [address] [place] [address] Care Team Providers Care Block Cableman Name Role Phone None, Provider Primary Care Provider Unavailabl e Reason for Visit * Reason Onset Date Comments Appointment Related 09/07/2014 Encounter Details Date Type Department Care Team (Late st Contact Info) Description 09/07/2014 Telephone [facility] Obstetrics & Midwifery - [facility] [address] [place], [place] [phone] Soledad Crawley, RN Appointment Related Social History [...] upcoming appointments. Currently, she is receiving weekly [place] injections in [place]. Patient had injection this AM and per patient reports, she receives quick exam/assessment while she is there. Denies any complaintsregarding her cerclage- no LOF, no cramping, no discharge, etc. Not sure she wants to have two appointments today and doesn't think she can get to [place] in time for her 2:00pm appointment. Offered to reschedule to a different day- with options offered for appointments next week which patient declined due to work, transportation, and childcare issues. Next appointment scheduled for 09/19. Alexsandra ent inquiring about receiving care closer to home in [place] as she is having [place] injections there already. Advised she discuss with provider at next visit and for coordination of these appointments, patient agreed to this plan. Asked she call [facility] community health specialist with any concerns or questions. documented in this encounter Plan of Treatment Upcoming Encounters Date Type Department Care Team (Late st Contact Info) Description 12/29/2024 10:20 EST Office Visit [facility] Rheumatology & Immunology - [address] [address] Micaela Hoff MD [address] [place] [address], [address] [place] [address] documented as of this encounter Visit Diagnoses Not on filedocumented in this encounter Additional Health Concerns Infection Onset Date Last Indicated Resolved Time MRSA 10/20/2011 10/20/2011 documented as of this encounter Care Teams Block Cableman Relationship Specialty Start Date End Date None, Provider PCP - General 06/09/14 03/01/15 documented as of this encounter
--- OUTSIDE RECORDS SUMMARY | 2024-07-15 01:31 | XMS_ITS | Encounter Summary ---
Author Organization [facility] Address [address] [place] [address] Care Team Providers Care Oral And Maxillofacial Surgery Resident Name Role Phone None, Provider Primary Care Provider Unavailabl e Encounter Details Date Type Department Care Team (Late st Contact Info) Description 07/11/2014 Results Only [facility] Obstetrics & Midwifery - [address] [phone] Tasha Torres MD [address] [place] [address] [address] [place] [address] Social History Tobacco Use Types [...] [facility] Rheumatology & Immunology - [address] [phone] Micaela Hoff MD [address] [place] [address], [facility] [address] [place] [phone] documented as of this encounter Procedures Procedure Name Priority Date/Time Associated Diagnosis Comments [id number] INTEGRATED SCREEN Routine 07/11/2014 10:30 EDT documented in this encounter Results * 2ND INTEGRATED SCREEN (07/11/2014 10:30 EDT) Result-Integrated Screen (Note) [facility] Comment: Interpretation: ??Screen Negative Down Syndrome Risk: ??1:1700 Trisomy 18 Risk: 1:51496 ONTD Risk: ??1:2000 Interpretation See Pathology Scanned Report in [facility]. [facility] Reference [facility] [place] [facility] 07/11/2014 10:3 0 EDT 07/11/2014 10:46 EDT Tasha Torres MD CHEMISTRY & BLOOD GAS ORDERABLES Performing Organization Address City/State/[facility] Co de Phone Number [facility] [address] [place] [address] documented in this encounter Visit Diagnoses Not on filedocumented in this encounter Additional Health Concerns Infection Onset Date Last Indicated Resolved Time MRSA 10/20/2011 10/20/2011 documented as of this encounter Care Teams Oral And Maxillofacial Surgery Resident Relationship Specialty Start Date End Date None, Provider PCP - General 06/09/14 03/01/15 documented as of this encounter
--- OUTSIDE RECORDS SUMMARY | 2024-07-15 01:31 | XMS_ITS | Encounter Summary ---
Author Organization [facility] Address [address] [place] [address] Care Team Providers Care Harbormaster Name Role Phone None, Provider Primary Care Provider Unavailabl e Encounter Details Date Type Department Care Team (Late st Contact Info) Description 07/11/2014 10:40 EDT - 07/11/2014 11:09 EDT Hospital Encounter [facility] [address] [place] [address] Makeda Lucas MD 111 [facility], [address] [place] [phone] Discharge Disposition: Auto Discharge Social History Tobacco [...] [facility] Rheumatology & Immunology - [address] [phone] Micaela Hoff MD [address] [place] [address], [address] [place] [address] documented as of this encounter Visit Diagnoses Not on filedocumented in this encounter Additional Health Concerns Infection Onset Date Last Indicated Resolved Time MRSA 10/20/2011 10/20/2011 documented as of this encounter Care Teams Harbormaster Relationship Specialty Start Date End Date None, Provider PCP - General 06/09/14 03/01/15 documented as of this encounter
--- OUTSIDE RECORDS SUMMARY | 2024-07-15 01:31 | XMS_ITS | Encounter Summary ---
Author Organization [facility] Address [address] [place] [address] Care Team Providers Care Liquid Center Assembler Name Role Phone None, Provider Primary Care Provider Unavailabl e Encounter Details Date Type Department Care Team (Late st Contact Info) Description 07/11/2014 14:45 EDT - 07/11/2014 14:46 EDT Hospital Encounter [address] [address] Tasha Torres MD 111 [facility], Level [address] [place] [phone] Discharge Disposition: Home or Self Care Social [...] [facility] Rheumatology & Immunology - [address] [phone] Micaela Hoff MD [address] [place] [address], [address] [place] [address] documented as of this encounter Procedures Procedure Name Priority Date/Time Associated Diagnosis Comments PATHOLOGY - SCANNED 07/17/2014 16:21 EDT documented in this encounter Results * PATHOLOGY - SCANNED (07/17/2014 16:21 EDT) 07/17/2014 16:2 1 EDT Scan 2 Religious Education Director LAB INFO SERVICE AN D SUPPORT & PHONE RESULT documented in this encounter Visit Diagnoses Not on filedocumented in this encounter Additional Health Concerns Infection Onset Date Last Indicated Resolved Time MRSA 10/20/2011 10/20/2011 documented as of this encounter Care Teams Liquid Center Assembler Relationship Specialty Start Date End Date None, Provider PCP - General 06/09/14 03/01/15 documented as of this encounter
--- OUTSIDE RECORDS SUMMARY | 2024-07-15 01:31 | XMS_ITS | Encounter Summary ---
Author Organization [facility] Address [address] [place] [address] Care Team Providers Care Breakfast Server Name Role Phone Kaylynn Gimenez MD Primary Care Provider + [phone] Encounter Details Date Type Department Care Team (Late st Contact Info) Description 02/11/2017 13:00 EDT - 02/11/2017 23:59 EDT Hospital Encounter [facility] - Other [address] [place] [address] Robert Koo MD 111 [facility], Level 1 [place] [address] Discharge Disposition: Auto Discharge Social [...] Info) Description 12/29/2024 10:20 EST Office Visit [facility] Rheumatology & Immunology - [address] [phone] Micaela Hoff MD [address] [place] [address], Level 5 [place] [phone] documented as of this encounter Visit Diagnoses Not on filedocumented in this encounter Additional Health Concerns Infection Onset Date Last Indicated Resolved Time MRSA 10/20/2011 10/20/2011 documented as of this encounter Care Teams Breakfast Server Relationship Specialty Start Date End Date Kaylynn Gimenez MD [address] [place] [phone] PCP - General 03/02/15 documented as of this encounter
--- OUTSIDE RECORDS SUMMARY | 2024-07-15 01:31 | XMS_ITS | Referral Summary ---
Author Organization [facility] Address [address] [place] [address] Care Team Providers Care Revit Drafter Name Role Phone Kaylynn Gimenez MD Primary Care Provider + [phone] Encounters Date Type Department Care Team Description 06/09/2024 Lab Requisition [facility] Pathology & Laboratory Medicine - [facility] [address] [place] [address] Outr Resulting Lab, Provider from Last 3 [...] [facility] Rheumatology & Immunology - [address] [phone] Micaela Hoff MD [address] [place] [address], Level 5 [place] [address] Procedures Procedure Name Priority Date/Time Associated Diagnosis Comments CHLAMYDIA/N. GONORRHOEAE AMPLIFIED NUCLEIC ACID Routine 06/08/2024 15:45 EDT HEPATITIS C AB W REFLEX TO HCV RNA BY PCR Routine 03/14/2022 10:10 EDT from Last 3 Months or Most Recently Relevant to Health Maintenance Results * CHLAMYDIA/N. GONORRHOEAE AMPLIFIED NUCLEIC ACID (06/08/2024 15:45 EDT) Neisseria gonorrhoeae Result Negative Negative 06/10/2024 12:11 EDT [facility] Chlamydia trachomatis Result Negative Negative 06/10/2024 12:11 EDT [facility] Swab VAGINAL STRUCTURE / Unknown 06/08/2024 15:45 EDT 06/09/2024 19:46 EDT Provider Outr Resulting Lab MICROBIOLOGY - GENERAL ORDERABLES [facility] [address] [place] [phone] * HEPATITIS C AB W REFLEX TO HCV RNA BY PCR (03/14/2022 10:10 EDT) Hep C Antibody Negative Negative 03/17/2022 10:18 EDT [facility] Blood VENOUS BLOOD / Unknown 03/14/2022 10:10 EDT 03/14/2022 17:17 EDT Provider Outr Resulting Lab CHEMISTRY & BLOOD GAS ORDERABLES [facility] [address] [place] [address] from Last 3 Months or Most Recently Relevant to Health Maintenance Additional Health Concerns Infection Onset Date Last Indicated MRSA 10/20/2011 10/20/2011 Advance Directives For more information, please contact: [phone] * Full Code (Latest Code Status on File) Date Activated Date Inactivated Comments 07/18/2014 22:50 07/20/2014 11:51 * Full Code Date Activated Date Inactivated Comments 07/18/2014 16:13 07/18/2014 22:50 * Full Code Date Activated Date Inactivated Comments 07/11/2014 13:00 07/11/2014 16:39 * Full Code Date Activated Date Inactivated Comments 06/29/2014 18:01 06/29/2014 20:14 Care Teams Revit Drafter Relationship Specialty Start Date End Date Kaylynn Gimenez MD [facility] [place] [address] PCP - General 03/02/15
--- OUTSIDE RECORDS SUMMARY | 2024-07-15 01:31 | XMS_ITS | Encounter Summary ---
Author Organization [facility] Address [address] [place] [address] Care Team Providers Care Spanner Operator Name Role Phone Kaylynn Gimenez MD Primary Care Provider + [phone] Reason for Visit * Reason Comments Hypothyroidism * Referral (Routine) - Closed Specialty Diagnoses / Procedures Referred By Ehsan t Referred To Contact Endocrinology Diagnoses Hypothyroidism, unspecified Hypoglycemia, unspecified Anuja Cai, LEONELA [address] [place] [address] [facility] [address] [place] [address] Referral ID Status Reason Start Date Expiration Date Visits Re quested Visits Authorized [id number] Closed 1 1 Encounter Details Date Type Department Care Team (Latest Contact Info) Description 05/21/2021 16:00 EDT Telemedicine [facility] Endocrinology - [address] [address] Susan Hensley MD [address] [place] [address] [address] [place] [address] Hypoglycemia (Primary Dx); Hypothyroidism due [...] for a while, 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 Ordered as external to be sent to [facility]. -serum glucose -beta hydroxybutyrate -cortisol -insulin -c-peptide -pro-insulin Follow-up in 6 months but also pending labs. Patient was seen and examined with Dr Lillian Hensley Endocrinology Fellow PGY-4 Pager # [phone] Susan Hensley 05/21/2021 22:38 * Dominga Snyder DO - 05/21/2021 1600 EDT Endocrine Attending: This patient was seen and evaluated with the fellow and I agree with the assessment and plan. documented in this encounter Plan of Treatment Upcoming Encounters Date Type Department Care Team (Late st Contact Info) Description 12/29/2024 10:20 EST Office Visit [facility] Rheumatology & Immunology - [address] [address] Micaela Hoff MD [address] [place] [address], Level 5 [place] [address] documented as of this encounter [...] documented as of this encounter Care Teams Spanner Operator Relationship Specialty Start Date End Date Kaylynn Gimenez MD [address] [place] [phone] PCP - General 03/02/15 documented as of this encounter
--- OUTSIDE RECORDS SUMMARY | 2024-07-15 01:31 | XMS_ITS | Encounter Summary ---
Author Organization [facility] Address [address] [place] [address] Care Team Providers Care President And Chief Executive Officer Name Role Phone Kaylynn Gimenez MD Primary Care Provider + [phone] Encounter Details Date Type Department Care Team (Late st Contact Info) Description 01/16/2021 Lab Requisition [facility] Pathology & Laboratory Medicine - [address] [address] Outr Resulting Lab, Provider Social History Tobacco [...] 12/29/2024 10:20 EST Office Visit [facility] Rheumatology & Immunology - [address] [address] Micaela Hoff MD [address] [place] [address], Level [address] [place] [phone] documented as of this encounter Procedures Procedure Name Priority Date/Time Associated Diagnosis Comments INSULIN Routine 01/16/2021 8:34 EDT documented in this encounter Results * INSULIN (01/16/2021 8:34 EDT) Insulin 5.7 <29.0 uIU/mL 01/17/2021 9:17 EDT [facility] Comment: Displayed Reference Range applies to fasting specimens only. Blood VENOUS BLOOD / Unknown 01/16/2021 8:34 EDT 01/16/2021 16:12 EDT Provider Outr Resulting Lab CHEMISTRY & BLOOD GAS ORDERABLES [facility] [address] [place] [address] documented in this encounter Visit Diagnoses Not on filedocumented in this encounter Additional Health Concerns Infection Onset Date Last Indicated Resolved Time MRSA 10/20/2011 10/20/2011 documented as of this encounter Care Teams President And Chief Executive Officer Relationship Specialty Start Date End Date Kaylynn Gimenez MD [facility] [place] [address] PCP - General 03/02/15 documented as of this encounter
--- OUTSIDE RECORDS SUMMARY | 2024-07-15 01:31 | XMS_ITS | Encounter Summary ---
Author Organization [facility] Address [address] [place] [address] Care Team Providers Care Manager Domestic Name Role Phone Kaylynn Gimenez MD Primary Care Provider + [phone] Encounter Details Date Type Department Care Team (Late st Contact Info) Description 05/31/2021 Lab Requisition [facility] Pathology & Laboratory Medicine [address] [address] Outr Resulting Lab, Provider Social History Tobacco [...] [facility] Rheumatology & Immunology - [address] [phone] Micaela Hoff MD [address] [place] [address], [address] 5 [place] [phone] documented as of this encounter Procedures Procedure Name Priority Date/Time Associated Diagnosis Comments BETA HYDROXYBUTYRATE Routine 05/30/2021 16:05 EDT INSULIN Routine 05/30/2021 16:05 EDT CORTISOL Routine 05/30/2021 16:05 EDT documented in this encounter Results * BETA HYDROXYBUTYRATE (05/30/2021 16:05 EDT) Beta Hydroxybutyrate 0.3 <0.4 mmol/L 05/31/2021 16:06 EDT [facility] Blood VENOUS BLOOD / Unknown 05/30/2021 16:05 EDT 05/31/2021 15:51 EDT Provider Outr Resulting Lab CHEMISTRY & BLOOD GAS ORDERABLES Performing Organization Address [facility] Co de Phone Number [facility] [address] [place] [address] * INSULIN (05/30/2021 16:05 EDT) Pathologist [facility] Insulin 6.4 <29.0 uIU/mL 06/06/2021 10:10 EDT [facility] Comment: Displayed Reference Range applies to fasting specimens only. Blood VENOUS BLOOD / Unknown 05/30/2021 16:05 EDT 05/31/2021 15:51 EDT Provider Outr Resulting Lab CHEMISTRY & BLOOD GAS ORDERABLES Performing Organization Address [facility]/ZIP Co de Phone Number [facility] [address] [place] [address] * CORTISOL (05/30/2021 16:05 EDT) Cortisol 5 See Note ug/dL 05/31/2021 16:31 EDT [facility] Comment: NOTE: Reference Ranges [...] & BLOOD GAS ORDERABLES Performing Organization Address City/State/[facility] Co de Phone Number [facility] [address] [place] [address] documented in this encounter Visit Diagnoses Not on filedocumented in this encounter Additional Health Concerns Infection Onset Date Last Indicated Resolved Time MRSA 10/20/2011 10/20/2011 documented as of this encounter Care Teams Manager Domestic Relationship Specialty Start Date End Date Kaylynn Gimenez MD [address] [place] [phone] PCP - General 03/02/15 documented as of this encounter
--- OUTSIDE RECORDS SUMMARY | 2024-07-15 01:31 | XMS_ITS | Encounter Summary ---
Author Organization [facility] Address [address] [place] [address] Care Team Providers Care Accounts Payable Representative Name Role Phone None, Provider Primary Care Provider Unavailabl e Reason for Visit * Reason Comments Routine Visit Encounter Details Date Type Department Care Team (Late st Contact Info) Description 08/08/2014 12:45 EDT Routine [facility] Obstetrics & Midwifery - [address] [phone] Tasha Torres MD [address] [place] [address], [address] 4 [place] [address] GA: 20w4d Discharge Disposition: Auto [...] EDT Records faxed to [facility] DEFLECTOR OPERATOR, Dr. Smith's office per Teri's request, as [...] Note - Tasha Torres MD - 08/08/2014 2089 EDTAssociated Problem(s): Supervision of other high-risk Rh+/ab [...] [facility] Rheumatology & Immunology - [address] [address] Micaela Hoff MD [address] [place] [address], [address] [place] [address] documented as of this encounter [...] BLOOD GA S ORDERABLES Performing Organization Address City/[facility]/ZIP Co de Phone Number [facility] [address] [place] [address] * TSH (08/08/2014 12:14 EDT) TSH 0.98 0.35 - 5.00 uIU/ml [facility] Blood specimen (specimen) 08/08/2014 12:14 EDT 08/08/2014 12:40 EDT Rehan Abarca MD CHEMISTRY & BLOOD GA S ORDERABLES Performing Organization Address [facility] Co de Phone Number [facility] [address] [place] [address] * MRSA INFECTION CONTROL CULTURE (08/08/2014 11:41 EDT) Specimen Description Nasal [facility] Result No Staphylococcus aureus isolated. [facility] Report Status 08/10/2014 Final [facility] NASAL ROUTE / Unknown 08/08/2014 11:41 EDT 08/08/2014 12:01 EDT Tasha Torres MD MICROBIOLOGY - GENERAL ORDERABLES Performing Organization Address [facility] Co de Phone Number [facility] [address] [place] [address] documented in this encounter Visit Diagnoses Diagnosis [...] of this encounter Care Teams Accounts Payable Representative Relationship Specialty Start Date End Date None, Provider PCP - General 06/09/14 03/01/15 documented as of this encounter
--- OUTSIDE RECORDS SUMMARY | 2024-07-15 01:31 | XMS_ITS | Encounter Summary ---
Author Organization [facility] Address [address] [place] [address] Care Team Providers Care Motor Vehicle Dispatcher Name Role Phone Kaylynn Gimenez MD Primary Care Provider + [phone] Reason for Visit * Reason Onset Date Comments Appointment Related 02/04/2023 Encounter Details Date Type Department Care Team (Late st Contact Info) Description 02/04/2023 Telephone [facility] Endocrinology - [address] [address] Hina Townsend MD [address] [place] [phone] Appointment Related Social History Tobacco Use [...] RN - 02/04/2023 0937 EDT Routing to [facility] Avery. Gilma Puente, RN * Telephone Encounter [facility] - [address] [address] Micaela Hoff MD 111 [facility], [address] [place] [phone] documented as of this encounter Visit Diagnoses Not on filedocumented in this encounter Additional Health Concerns Infection Onset Date Last Indicated Resolved Time MRSA 10/20/2011 10/20/2011 documented as of this encounter Care Teams Motor Vehicle Dispatcher Relationship Specialty Start Date End Date Kaylynn Gimenez MD [address] [place] [phone] PCP - General 03/02/15 documented as of this encounter
--- OUTSIDE RECORDS SUMMARY | 2024-07-15 01:31 | XMS_ITS | Encounter Summary ---
Author Organization [facility] Address [address] [place] [address] Care Team Providers Care Film Tests Checker Name Role Phone None, Provider Primary Care Provider Unavailabl e Reason for Visit * Reason Onset Date Comments Routine Visit 09/06/2014 Encounter Details Date Type Department Care Team (Late st Contact Info) Description 09/06/2014 Orders Only [facility] Obstetrics & Midwifery - [address] [phone] Linda Bustillos MD Supervision of other high-risk [...] EST Office Visit [facility] Rheumatology & Immunology - [address] [address] Micaela Hoff MD [address] [place] [address], [address] [place] [phone] documented as of this encounter Visit Diagnoses Diagnosis Supervision of other high-risk (V23.89)- Primary Supervision of other high-risk documented in this encounter Additional Health Concerns Infection Onset Date Last Indicated Resolved Time MRSA 10/20/2011 10/20/2011 documented as of this encounter Care Teams Film Tests Checker Relationship Specialty Start Date End Date None, Provider PCP - General 06/09/14 03/01/15 documented as of this encounter
--- OUTSIDE RECORDS SUMMARY | 2024-07-15 01:31 | XMS_ITS | Encounter Summary ---
Author Organization [facility] Address [address] [place] [address] Care Team Providers Care Supervisor Fur Floor Worker Name Role Phone Kaylynn Gimenez MD Primary Care Provider + [phone] Reason for Visit * Reason Onset Date Comments Returning Call 06/06/2022 Encounter Details Date Type Department Care Team (Late st Contact Info) Description 06/06/2022 Telephone [facility] Endocrinology - [facility] [address] [place] [address] Susan Hensley MD [address] [facility] [address] [place] [address] Returning Call Social History Tobacco [...] 1303 EDT Taking care of in 06/03/22 Kinetic Socialt message. Gilma Puente RN * Telephone Encounter - Gold Chrisjeane - 06/06/2022 1029 EDT The patient is returning a call to the nurse documented in this encounter Plan of Treatment Upcoming Encounters Date Type Department Care Team (Late st Contact Info) Description 12/29/2024 10:20 EST Office Visit [facility] Rheumatology & Immunology - [address] [phone] Micaela Hoff MD [address] [facility], [address] [place] [phone] documented as of this encounter Visit Diagnoses Not on filedocumented in this encounter Additional Health Concerns Infection Onset Date Last Indicated Resolved Time MRSA 10/20/2011 10/20/2011 documented as of this encounter Care Teams Supervisor Fur Floor Worker Relationship Specialty Start Date End Date Kaylynn Gimenez MD [address] [place] [phone] PCP - General 03/02/15 documented as of this encounter
--- OUTSIDE RECORDS SUMMARY | 2024-07-15 01:31 | XMS_ITS | Encounter Summary ---
Author Organization [facility] Address [address] [place] [address] Care Team Providers Care Automatic Toe Laster Name Role Phone None, Provider Primary Care Provider Unavailabl e Encounter Details Date Type Department Care Team (Latest Contact Info) Description 12/13/2014 8:52 EST - 12/13/2014 23:59 [facility] Hospital Encounter [facility] - [address] [address] Unknown, Provider, Discharge Disposition: Home or Self [...] Departure Means Destination Home or Self Senior Living documented in this encounter Plan of Treatment Upcoming Encounters Date Type Department Care Team (Late st Contact Info) Description 12/29/2024 10:20 EST Office Visit [facility] Rheumatology & Immunology - [address] [address] Micaela Hoff MD [address] [place] [address], [address] [place] [address] documented as of this encounter Visit Diagnoses Not on filedocumented in this encounter Additional Health Concerns Infection Onset Date Last Indicated Resolved Time MRSA 10/20/2011 10/20/2011 documented as of this encounter Care Teams Automatic Toe Laster Relationship Specialty Start Date End Date None, Provider PCP - General 06/09/14 03/01/15 documented as of this encounter
--- OUTSIDE RECORDS SUMMARY | 2024-07-15 01:31 | XMS_ITS | Encounter Summary ---
Author Organization [facility] Address [address] [place] [address] Care Team Providers Care Product Development Consultant Name Role Phone Kaylynn Gimenez MD Primary Care Provider + [phone] Reason for Visit * Reason Comments New Patient Visit Low sugar * Referral (Routine) - Authorization Not Required Specialty Diagnoses / Procedures [facility] Referred To Contact Diagnoses Hypothyroidism Hypoglycemia Family history of diabetes mellitus Prediabetes Anuja Cai, LEONELA [address] [place] [address] [facility] Endocrinology [address] [place] [address] Referral ID Status Reason Start Date Expiration Date Visits Requested Visits Authorized [id number] Authorization Not Required 1 1 Encounter Details Date Type Department Care Team (Late st Contact Info) Description 02/04/2023 11:30 EDT Telemedicine [facility] Endocrinology [address] [place], [place] [address] Hina Townsend MD [address] [facility] [address] [place] [address] Mena's thyroiditis (Primary Dx); Hypoglycemia [...] documented in this encounter Progress Notes * Hnia Elias MD - 02/04/2023 1130 EDT Endocrinology [...] the past by the Endocrine Department at [facility] and some of the information is [...] for a while, 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
--- OUTSIDE RECORDS SUMMARY | 2024-07-15 01:31 | XMS_ITS | Encounter Summary ---
Author Organization [facility] Address [address] [place] [address] Care Team Providers Care Computer Customer Support Specialist Name Role Phone Kaylynn Gimenez MD Primary Care Provider + [phone] Encounter Details Date Type Department Care Team (Late st Contact Info) Description 03/26/2023 Lab Requisition [facility] Pathology & Laboratory Medicine [address] [address] Esther Miller, HUMAN FACTORS SPECIALIST [address] [place] [address] Encounter for other general examination [...] [facility] Immunology - [address] [address] Micaela Hoff MD [address] [place] [address], Level 5 [place] [address] documented as of this encounter Procedures Procedure [...] types, PCR Negative Negative 04/09/2023 17:48 EDT [facility] Comment:No E6 or E7 mRNA is detected from HPV types 16,18,31,33,35,39,45,51,52,56,58,59,66, and 68 by plasterer apprentice mediated amplification. Papanicolaou smear specimen (specimen) CERVIX UTERI STRUCTURE / Unknown 03/25/2023 11:00 EDT 04/09/2023 10:54 EDT Esther Miller APRN MICROBIOLOGY - NERAL ORDERABLES [facility] [address] [place] [address] * PAP TEST (03/25/2023 11:00 EDT) Specimens A. Cervix and/or Endocervix , ThinPrep Imaging System with Manual Evaluation 04/09/2023 17:48 EDT [facility] Specimen Adequacy Satisfactory for Evaluation - transformation zone component absent 04/09/2023 17:48 EDT [facility] General Categorization Negative for intraepithelial lesion or malignancy 04/09/2023 17:48 EDT [facility] Attestation . 04/09/2023 17:48 EDT [facility] at 6828 Clinical History See below 06/08/20 23 17:48 EDT [facility] HPV The result for the Human Papillomavirus (HPV) Detection-High Risk Types is Negative. No E6 or E7 mRNA is detected from HPV types 16,18,31,33,35,39 ,45,51,52,56,58,5 9,66, and 68 by plasterer apprentice mediated amplification.Leonie ting was performed on specimen [id number] and was resulted on 04/09/2023 1748 EDT by JONATHAN, LAB INSTRUMENT RESULTS IN 04/09/2023 17:48 EDT [facility] Performing Lab [facility] 04/09/2023 17:48 EDT [facility] Scanned Images 04/09/2023 17:48 EDT [facility] Papanicolaou smear specimen (specimen) CERVIX UTERI STRUCTURE / Unknown 03/25/2023 11:00 EDT 03/26/2023 15:21 EDT Esther Miller APRN PATHOLOGY ORDERAB LES [facility] [address] [place] [address] documented in this encounter Visit Diagnoses Diagnosis Encounter for other general examination documented in this encounter Additional Health Concerns Infection Onset Date Last Indicated Resolved Time MRSA 10/20/2011 10/20/2011 documented as of this encounter Care Teams Computer Customer Support Specialist Relationship Specialty Start Date End Date Kaylynn Gimenez MD [facility] [place] [address] PCP - General 03/02/15 documented as of this encounter
--- OUTSIDE RECORDS SUMMARY | 2024-07-15 01:31 | XMS_ITS | Encounter Summary ---
Author Organization [facility] Address [address] [place] [address] Care Team Providers Care Certified Phlebotomy Technician Name Role Phone None, Provider Primary Care Provider Unavailabl e Encounter Details Date Type Department Care Team (Late st Contact Info) Description 08/08/2014 Phlebotomy Only [address] [address] Auth Specialist, Outpatient Hypothyroidism Social History Tobacco Use Types [...] [facility] [address] [address] Micaela Hoff MD 111 [facility], [address] [place] [address] documented as of this encounter [...] BLOOD GA S ORDERABLES Performing Organization Address [facility] de Phone Number [facility] [address] [place] [address] * TSH (08/08/2014 12:14 EDT) TSH 0.98 0.35 - 5.00 uIU/ml [facility] Blood specimen (specimen) 08/08/2014 12:14 EDT 08/08/2014 12:40 EDT Rehan Abarca MD CHEMISTRY & BLOOD GA S ORDERABLES Performing Organization Address [facility] de Phone Number [facility] [address] [place] [address] documented in this encounter Visit Diagnoses Diagnosis Hypothyroidism Unspecified hypothyroidism documented in this encounter Additional Health Concerns Infection Onset Date Last Indicated Resolved Time MRSA 10/20/2011 10/20/2011 documented as of this encounter Care Teams Certified Phlebotomy Technician Relationship Specialty Start Date End Date None, Provider PCP - General 06/09/14 03/01/15 documented as of this encounter
--- OUTSIDE RECORDS SUMMARY | 2024-07-15 01:31 | XMS_ITS | Encounter Summary ---
Author Organization [facility] Address [address] [place] [address] Care Team Providers Care Network Field Engineer Name Role Phone Kaylynn Gimenez MD Primary Care Provider + [phone] Encounter Details Date Type Department Care Team (Late st Contact Info) Description 02/12/2023 Lab Requisition [facility] Pathology & Laboratory Medicine [address] [address] Outr Resulting Lab, Provider Social History Tobacco [...] [facility] Rhe[facility]ology & Immunology - [address] [phone] Micaela Hoff MD [address] [place] [address], [address] [place] [phone] documented as of this encounter Procedures Procedure [...] 11:40 EDT) Hold Hold 02/12/2023 22:31 EDT [facility] Blood VENOUS BLOOD / Unknown 02/12/2023 11:40 EDT 02/12/2023 21:28 EDT Provider Outr Resulting Lab LAB INFO SER VICE AND SUPPORT & PHONE RESULT Performing Organization Address [facility] Co de Phone Number [facility] [address] [place] [address] * HOLD SST (02/12/2023 11:40 EDT) Hold Hold 02/12/2023 22:31 EDT [facility] Blood VENOUS BLOOD / Unknown 02/12/2023 11:40 EDT 02/12/2023 21:28 EDT Provider Outr Resulting Lab LAB INFO SER VICE AND SUPPORT & PHONE RESULT Performing Organization Address [facility] Co de Phone Number [facility] [address] [place] [address] * LYME AB (02/12/2023 11:40 EDT) Lyme Ab Negative Negative 02/13/2023 10:30 EDT [facility] Blood VENOUS BLOOD / Unknown 02/12/2023 11:40 EDT 02/12/2023 21:22 EDT Provider Outr Resulting Lab IMMUNOLOGY A ND SEROLOGY ORDERABLES Performing Organization Address [facility] Co de Phone Number [facility] [address] [place] [address] * (ABNORMAL) RHEUMATOID FACTOR (02/12/2023 11:40 EDT) Rheumatoid Factor 14.3(H) <12.0 IU/mL 02/12/2023 21:48 EDT [facility] Blood VENOUS BLOOD / Unknown 02/12/2023 11:40 EDT 02/12/2023 21:22 EDT Provider Outr Resulting Lab CHEMISTRY & BLOOD GAS ORDERABLES Performing Organization Address [facility] de Phone Number [facility] [address] [place] [address] * (ABNORMAL) ANTI NUCLEAR AB (LIZZIE), IFA (02/12/2023 11:40 EDT) LIZZIE Interpretation Positive(A) Negative 02/13/2023 15:40 EDT [facility] Comment: For titers [...] 1:320 Dense Fine Speckled 02/13/2023 15:40 EDT [facility] Blood VENOUS BLOOD / Unknown 02/12/2023 11:40 EDT 02/12/2023 21:22 EDT Narrative [facility] - 02/13/2023 15:40 EDT Results were obtained with the INOVA NOVA Lite HEp-2 LIZZIE Kit by indirect immunofluorescence. Provider Outr Resulting Lab IMMUNOLOGY A ND SEROLOGY ORDERABLES Performing Organization Address City/[facility] Co de Phone Number [facility] [address] [place] [address] * CCP ANTIBODIES (02/12/2023 11:40 EDT) CCP Antibodies <2.5 <5.0 U/mL 02/13/2023 9:13 EDT [facility] Blood VENOUS BLOOD / Unknown 02/12/2023 11:40 EDT 02/12/2023 21:22 EDT Provider Outr Resulting Lab IMMUNOLOGY A ND SEROLOGY ORDERABLES Performing Organization Address [facility] de Phone Number [facility] [address] [place] [address] documented in this encounter Visit Diagnoses Not on filedocumented in this encounter Additional Health Concerns Infection Onset Date Last Indicated Resolved Time MRSA 10/20/2011 10/20/2011 documented as of this encounter Care Teams Network Field Engineer Relationship Specialty Start Date End Date Kaylynn Gimenez MD [facility] [place] [phone] PCP - General 03/02/15 documented as of this encounter
--- OUTSIDE RECORDS SUMMARY | 2024-07-15 01:31 | XMS_ITS | Encounter Summary ---
Author Organization [facility] Address [address] [place] [address] Care Team Providers Care Slab Worker Name Role Phone Kaylynn Gimenez MD Primary Care Provider [phone] Reason for Visit * Reason Onset Date Comments New/Evolving Symptoms 06/03/2022 Spasms 06/03/2022 Fatigue 06/03/2022 Dizziness 06/03/2022 Encounter Details Date Type Department Care Team (Late st Contact Info) Description 06/03/2022 Telephone [facility] Endocrinology - [facility] [address] [place] [address] Yaya Hensley MD [address] [facility] [address] [place] [address] New/Evolving Symptoms; Spasms; Fatigue; Dizziness [...] 06/05/2022 1105 EDT Called pt and sent [employer] message to pt. Seeking to gather more information regarding symptoms. Pt last seen via telemedicine by Dr. Hensley referred by PCP for hypoglycemia. Pt also has Mena's. Medications listed are: Levothyroxine 100 mcg daily (pt taking 112 mcg). Script by Dr. Rehan Abarca- script in record noted as ese written in 2013. Current dose unknown. [place] [employer] message sent to pt requesting more information: - current thyroid medication and dose(s) -difficulty sleeping? -what is PCP recommending? -more details regarding fatigue, dizziness -testing BG'S (pt with hx hypoglycemia-last labs- where and when? Requesting pt contact office. Jeane Salinas community recreation coordinator * Telephone Encounter - Obed Malcolm - 06/03/2022 3748 EDT The patient went to her PCP [...] [facility] Rheumatology & Immunology - [address] [id number] Micaela Hoff MD [address] [place] [address], [address] [place] [phone] documented as of this encounter Visit Diagnoses [...] documented as of this encounter Care Teams Slab Worker Relationship Specialty Start Date End Date Kaylynn Gimenez MD [address] [place] [phone] PCP - General 03/02/15 documented as of this encounter
--- OUTSIDE RECORDS SUMMARY | 2024-07-15 01:31 | XMS_ITS | Encounter Summary ---
Author Organization [facility] Address [address] [place] [address] Care Team Providers Care Caseworker Protective Services Name Role Phone None, Provider Primary Care Provider Unavailabl e Reason for Visit * Reason Onset Date Comments Routine Visit 08/07/2014 Encounter Details Date Type Department Care Team (Late st Contact Info) Description 08/07/2014 Orders Only [facility] OBGYN Services - [address] [id number] Tasha Torres MD [address] [place] [address], [facility] [address] [place] [address] Need for immunization against influenza [...] [facility] Rheumatology & Immunology - [address] [id number] Micaela Hoff MD [address] [place] [address], [facility] [address] [place] [address] documented as of this encounter [...] documented as of this encounter Care Teams Caseworker Protective Services Relationship Specialty Start Date End Date None, Provider PCP - General 06/09/14 03/01/15 documented as of this encounter
--- OUTSIDE RECORDS SUMMARY | 2024-07-15 01:31 | XMS_ITS | Encounter Summary ---
Author Organization [facility] Address [address] [place] [address] Care Team Providers Care Manager Of Planning Name Role Phone None, Provider Primary Care Provider Unavailabl e Reason for Visit * Reason Onset Date Comments Other 07/26/2014 Yeast infection symptoms Encounter Details Date Type Department Care Team (Late st Contact Info) Description 07/26/2014 Orders Only [facility] Obstetrics & Midwifery - [facility] [address] [place] [address] Soledad Crawley, RN Social History Tobacco Use [...] - [place] Rheumatology & Immunology - [address] [address] Micaela Hoff MD [address] [place] [address], [address] [place] [phone] documented as of this encounter Visit Diagnoses Not on filedocumented in this encounter Additional Health Concerns Infection Onset Date Last Indicated Resolved Time MRSA 10/20/2011 10/20/2011 documented as of this encounter Care Teams Manager Of Planning Relationship Specialty Start Date End Date None, Provider PCP - General 06/09/14 03/01/15 documented as of this encounter
--- OUTSIDE RECORDS SUMMARY | 2024-07-15 01:31 | XMS_ITS | Encounter Summary ---
Author Organization [facility] Address [address] [place] [address] Care Team Providers Care Log Haul Chain Feeder Name Role Phone Kaylynn Gimenez MD Primary Care Provider [phone] Encounter Details Date Type Department Care Team (Late st Contact Info) Description 07/20/2020 Lab Requisition [facility] Pathology & Laboratory Medicine [address] [facility] [address] [place], [place] [address] Encounter for other general examination Social History [...] Office Visit [facility] Rheumatology & Immunology - [address] [phone] Micaela Hoff MD [address] [facility], [address] [place] [phone] documented as of this encounter Procedures Procedure [...] types, PCR Negative Negative 07/25/2020 23:43 EDT [facility] Comment:No E6 or E7 mRNA is detected from HPV types 16,18,31,33,35,39,45,51,52,56,58,59,66, and 68 by compressor operator adjuster mediated amplification. Papanicolaou smear specimen (specimen) CERVIX UTERI STRUCTURE / Unknown 07/19/2020 10:15 EDT 07/24/2020 13:47 EDT Duyen Mcdowell MD MICROBIOLOGY - GENER AL ORDERABLES [facility] [address] [place] [address] * PAP TEST (07/19/2020 10:15 EDT) Specimens A. Cervix and/or Endocervix , ThinPrep Imaging System with Manual Evaluation 07/25/2020 23:43 EDT [facility] Specimen Adequacy Satisfactory for Evaluation - transformation zone component absent 07/25/2020 23:43 EDT [facility] General Categorization Negative for intraepithelial lesion or malignancy 07/25/2020 23:43 T [facility] Attestation . 07/25/2020 23:43 T [facility] at 2343 Clinical History See below 07/25/20 20 23:43 EDT [facility] HPV The result for the Human Papillomavirus (HPV) Detection-High Risk Types is Negative. No E6 or E7 mRNA is detected from HPV types 16,18,31,33,35,39 ,45,51,52,56,58,5 9,66, and 68 by compressor operator adjuster mediated amplification.Leonie ting was performed on specimen [id number] and was resulted on 07/25/2020 2255 EDT by JONATHAN, LAB INSTRUMENT RESULTS IN 07/25/2020 23:43 EDT [facility] Performing Lab [facility] 07/25/2020 23:43 EDT [facility] Scanned Images 07/25/2020 23:43 EDT [facility] Papanicolaou smear specimen (specimen) CERVIX UTERI STRUCTURE / Unknown 07/19/2020 10:15 EDT 07/20/2020 9:11 EDT Duyen Mcdowell MD PATHOLOGY ORDERABLES [facility] [address] [place] [address] documented in this encounter Visit Diagnoses Diagnosis Encounter for other general examination documented in this encounter Additional Health Concerns Infection Onset Date Last Indicated Resolved Time MRSA 10/20/2011 10/20/2011 documented as of this encounter Care Teams Log Haul Chain Feeder Relationship Specialty Start Date End Date Kaylynn Gimenez MD [facility] [place] [address] PCP - General 03/02/15 documented as of this encounter
--- OUTSIDE RECORDS SUMMARY | 2024-07-15 01:32 | XMS_ITS | Encounter Summary ---
Author Organization [facility] Address [address] [place] [address] Care Team Providers Care Shot Core Drill Operator Name Role Phone Ladonna Maurer Primary Care Provider [phone] Reason for Visit * Reason Comments Medications Refill Encounter Details Date Type Department Care Team (Late st Contact Info) Description 07/31/2012 13:13 EDT - 07/31/2012 15:40 EDT Hospital Encounter [facility] - [address] [address] Sarah Solitario, REAL ESTATE REP [address] [place], [place] [phone] Unknown, Provider, control counseling Discharge Disposition: Home [...] * COMBINATION CONTROL PILLS: AFTER YOUR VISIT (KITTITIAN) * STOPPING SMOKING: AFTER YOUR VISIT (KITTITIAN) documented in this encounter Medications at Time [...] order. * Sarah Solitario, LEONELA - 07/31/2012 2065 EDT DOS: 07/31/2012 Chief Complaint Patient presents [...] Stroke Mother ??? Heart Disease Father 50 [place] ??? Diabetes Father ??? Thyroid Cancer/Nodule Maternal Aunt Cancer ??? Heart Disease Maternal Grandmother [place] ??? Diabetes Maternal Grandmother ??? Cancer Maternal [...] transmitted infections and [facility] He detailed discussion regarding the importance of her smoking cessation plan starting tomorrow and quit line information given. Disposition: Discharged The patient's pain was managed to an adequate level weighing risk vs. benefit of further medications. Upon departure from the [facility], the patient's pain was 0 on a zero to ten scale. Condition at departure from the [facility]: Good 1. control counseling TEST, [...] time, has appointment to be seen at [facility] in October. documented in this encounter Miscellaneous Notes * Scanned Note-Null - EXT JS DEVELOPER, SCAN 2 - 08/10/2012 0658 EDT documented in this encounter Plan of Treatment Upcoming Encounters Date Type Department Care Team (Late st Contact Info) Description 12/29/2024 10:20 EST Office Visit [facility] Rheumatology & Immunology - [address] [address] Micaela Hoff MD [address] [place] [address], [address] [place] [address] documented as of this encounter Procedures Procedure Name Priority Date/Time Associated Diagnosis Comments HIV 1/2 ANTIGEN AND ANTIBODY, 4TH GENERATION STAT 07/31/2012 15:20 EDT control counseling TEST, URINE STAT 07/31/2012 15:17 EDT control counseling documented in this encounter Results * HIV 1/2 ANTIBODY (07/31/2012 15:20 EDT) HIV 1/2 Antibody Negative [facility] Comment: Reference Range: ??Negative Assayed utilizing [employer] chemiluminescent technology. Blood specimen (specimen) 07/31/2012 15:20 EDT 07/31/2012 15:30 EDT Sarah Solitario NP IMMUNOLOGY AND SEROLOGY ORDERABLES Performing Organization Address [facility] de Phone Number [facility] [address] [place] [address] * TEST, URINE (07/31/2012 15:17 EDT) Result- Test, Ur Negative [facility] Comment: NOTE: False negative results may occur in women who are beyond 5-8 weeks gestation. Diagnosis of should be based on a correlation of test results with typical clinical signs and symptoms. Performed at [facility], [place], [place] Urine specimen (specimen) URINE / Unknown 07/31/2012 15:17 EDT 07/31/2012 15:21 EDT Sarah Solitario NP URINALYSIS ORDERABLES Performing Organization Address [facility] de Phone Number [facility] [address] [place] [address] documented in this encounter Visit Diagnoses Diagnosis [...] documented as of this encounter Care Teams Shot Core Drill Operator Relationship Specialty Start Date End Date Ladonna Maurer PA [address] [place] [address] PCP - General 05/12/12 01/24/13 documented as of this encounter
--- OUTSIDE RECORDS SUMMARY | 2024-07-15 01:32 | XMS_ITS | Encounter Summary ---
Author Organization [facility] Address [address] [place] [address] Care Team Providers Care Hotel Attendant Name Role Phone Conor Angel MD Primary Care Provider [phone] Encounter Details Date Type Department Care Team (Late st Contact Info) Description 04/25/2014 Orders Only [facility] OBGYN Services - [address] [id number] Christiane Elizabeth RN Unspecified complication of , [facility] - [address] [phone] Micaela Hoff MD [address] [place] [address], [address] [place] [phone] documented as of this encounter Results * BACTERIAL CULTURE, URINE (04/26/2014 16:16 EDT) Specimen Description Urine [facility] Result Less than 10,000 CFU/ml Usual urogenital marquita. [facility] Report Status 04/28/2014 Final [facility] Urine specimen (specimen) URINE / Unknown 04/26/2014 16:16 EDT 04/26/2014 16:46 EDT Rehan Abarca MD MICROBIOLOGY - GENER AL ORDERABLES Performing Organization Address [facility] Co de Phone Number [facility] [address] [place] [address] * THYROID CASCADE (04/26/2014 16:15 EDT) [facility] TSH 2.39 0.35 - 5.00 uIU/ml [facility] Comment: TSH cascade is not recommended for patients in which pituitary or hypothalamic disorders are suspected. Blood specimen (specimen) 04/26/2014 16:15 EDT 04/26/2014 16:34 EDT Rehan Abarca MD CHEMISTRY & BLOOD GA S ORDERABLES Performing Organization Address [facility] de Phone Number [facility] [address] [place] [address] * HIV 1/2 ANTIBODY (04/26/2014 16:15 EDT) [facility] HIV 1/2 Antibody Negative [facility] Comment: If acute HIV-1 infection is suspected in a high risk patient, submit plasma specimen for HIV-1 RNA quantification test. Reference Range: ??Negative Assayed utilizing [employer] chemiluminescent technology. Blood specimen (specimen) 04/26/2014 16:15 EDT 04/26/2014 16:34 EDT Rehan Abarca MD IMMUNOLOGY AND SEROL OGY ORDERABLES Performing Organization Address [facility] Co de Phone Number [facility] [address] [place] [address] * CHLAMYDIA/GC AMPLIFIED, THIN PREP (04/26/2014 16:11 EDT) Specimen Description Cervix, ThinPrep vial [facility] Chlamydia Result No Chlamydia trachomatis DNA detected by alpine patroller mediated amplification. [facility] GC Result No Neisseria gonorrhoeae DNA detected by alpine patroller mediated amplification. [facility] Specimen of unknown material (specimen) TOPOGRAPHY UNKNOWN / Unknown 04/26/2014 16:11 EDT 04/28/2014 7:50 EDT Rehan Abarca MD MICROBIOLOGY - GENER AL ORDERABLES Performing Organization Address City/State/[facility] Co de Phone Number [facility] [address] [place] [address] documented in this encounter Visit Diagnoses Diagnosis [...] documented as of this encounter Care Teams Hotel Attendant Relationship Specialty Start Date End Date Conor Angel MD [address] [place] [address] PCP - General 02/07/14 06/08/14 documented as of this encounter
--- OUTSIDE RECORDS SUMMARY | 2024-07-15 01:32 | XMS_ITS | Encounter Summary ---
Author Organization [facility] Address [address] [place] [address] Care Team Providers Care Ship Pilot Name Role Phone Conor Angel MD Primary Care Provider [phone] Reason for Referral * POLITICAL CARTOONIST (Routine) - Closed Specialty Diagnoses / Procedures [facility] Referred To Contact Diagnoses Pelvic pain in female Procedures PROTOTYPE MODEL MAKER US PELVIS TRANSVAGINAL Aura Bui, RN [address] [place] [phone] Referral ID Status Reason Start Date Expiration Date Visits Re quested Visits Authorized [id number] Closed 02/10/2014 1 1 Encounter Details Date Type Department Care Team (Late st Contact Info) Description 02/10/2014 Orders Only [facility] OBGYN Services - [address] [address] Aura Bui, RN [address] [place] [phone] Pelvic pain in female (Primary Dx) Social [...] [facility] Rheumatology & Immunology - [address] [address] Micaela Hoff MD [address] [place] [address], [address] [place] [address] documented as of this encounter Procedures Procedure Name Priority Date/Time Associated Diagnosis Comments PROTOTYPE MODEL MAKER US PELVIS TRANSVAGINAL Routine 02/10/2014 14:08 EDT Pelvic pain in female documented in this encounter Results * PROTOTYPE MODEL MAKER US PELVIS TRANSVAGINAL (02/10/2014 14:08 EDT) Anatomical [...] of free fluid visible. Report Summary: Impression: [id number] First trimester obstetrical US, transvaginal 1) Likely [...] of free fluid visible. Report Summary: Impression: [id number] First trimester obstetrical US, transvaginal 1) Likely s/p miscarriage given HCG is 6 and uterus has a 7mm endometrium. No gestational sac seen. No adnexal abnormalities except a small anechoic paratubal cyst. 2) Patient not tender with pressure from US exam. Recommendations: Patient seeing Dr. Rogers right after US for further management. Sarah Rogers MD IMG US PROTOTYPE MODEL MAKER ORDERABL ES documented in this encounter Visit Diagnoses Diagnosis Pelvic pain in female- Primary Unspecified symptom associated with female genital organs documented in this encounter Additional Health Concerns Infection Onset Date Last Indicated Resolved Time MRSA 10/20/2011 10/20/2011 documented as of this encounter Care Teams Ship Pilot Relationship Specialty Start Date End Date Conor Angel MD [address] [place] [address] PCP - General 02/07/14 06/08/14 documented as of this encounter
--- OUTSIDE RECORDS SUMMARY | 2024-07-15 01:32 | XMS_ITS | Encounter Summary ---
Author Organization [facility] Address [address] [place] [address] Care Team Providers Care Product Manager Name Role Phone Ladonna Maurer Primary Care Provider [phone] Reason for Visit * Reason Comments Fatigue Joint Pain Encounter Details Date Type Department Care Team (Late st Contact Info) Description 05/12/2012 13:00 EDT Office Visit [facility] Rheumatology & Immunology - [facility] [address] [place], [place] [address] Denise Self MD [address] [facility], [address] [place] [address] Pain in joint, multiple sites; [...] has muscle weakness. It is hard to upset welding machine operator her daughter or open a [...] 4-year-old baby girl. 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 [...] - RORY Job ID: SM Doc ID: [id number] Ext Doc ID: [id number] cc: AUSTIN Silva MD documented in this encounter Plan of Treatment Upcoming Encounters Date Type Department Care Team (Late st Contact Info) Description 12/29/2024 10:20 EST Office Visit [facility] Rheumatology & Immunology - [address] [phone] Micaela Hoff MD [address] [place] [address], [address] [place] [address] documented as of this encounter Visit Diagnoses [...] as of this encounter Care Teams Product Manager Relationship Specialty Start Date End Date Ladonna Maurer PA [address] [place] [address] PCP - General 05/12/12 01/24/13 documented as of this encounter
--- OUTSIDE RECORDS SUMMARY | 2024-07-15 01:32 | XMS_ITS | Encounter Summary ---
Author Organization [facility] Address [address] [place] [address] Care Team Providers Care Harness And Bag Inspector Name Role Phone Conor Angel MD Primary Care Provider [phone] Encounter Details Date Type Department Care Team (Late st Contact Info) Description 04/26/2014 Results Only [facility] OBGYN Services - [address] [address] Cyrus Quijano MD [address] [place] [address] [place] [address] Social History Tobacco Use Types Packs/Day Years [...] [facility] - [address] [phone] Micaela Hoff MD [address] [facility], [address] [place] [address] documented as of this encounter Procedures Procedure [...] ? LIZZIE SMITH ? Accession #: ? [id number] ? : ? 1980 (Age: 34) ??F [...] types 16,18,31,33,35, 39,45,51,52,56,58, 59,66, and 68 by development team lead mediated amplification. Comments Document reviewed and electronically [...] [facility] Co de Phone Number [facility] [address] [place] [address] documented in this encounter Visit Diagnoses Not on filedocumented in this encounter Additional Health Concerns Infection Onset Date Last Indicated Resolved Time MRSA 10/20/2011 10/20/2011 documented as of this encounter Care Teams Harness And Bag Inspector Relationship Specialty Start Date End Date Conor Angel MD [address] [place] [address] PCP - General 02/07/14 06/08/14 documented as of this encounter
--- OUTSIDE RECORDS SUMMARY | 2024-07-15 01:32 | XMS_ITS | Encounter Summary ---
Author Organization [facility] Address [address] [place] [address] Care Team Providers Care Private Branch Exchange Service Adviser Name Role Phone Ladonna Maurer Primary Care Provider [phone] Reason for Visit * Reason Comments Labs Only Encounter Details Date Type Department Care Team (Latest Contact Info) Description 11/16/2012 9:30 EST Procedure visit [facility] Endocrinology - [address] [phone] Unknown, Provider, Phlebotomy, [facility]o Unspecified hypothyroidism; Mena's thyroiditis [...] Visit [facility] Rheumatology & Immunology - [facility] [address] [place], [place] [phone] Micaela Hoff MD [address] [facility], [address] [place] [address] documented as of this encounter Procedures Procedure [...] BLOOD GAS ORDERABLES Performing Organization Address [facility] Co de Phone Number [facility] [address] [place] [address] * T4 FREE (11/16/2012 9:32 EST) Free T4 1.5 0.8 - 1.8 ng/dL [facility] Blood specimen (specimen) 11/16/2012 9:32 EST 11/16/2012 15:54 EST Drew Grijalva MD CHEMISTRY & BLOOD GAS ORDERABLES Performing Organization Address [facility] Co de Phone Number [facility] [address] [place] [address] documented in this encounter Visit Diagnoses Diagnosis Unspecified hypothyroidism Mena's thyroiditis Chronic lymphocytic thyroiditis documented in this encounter Additional Health Concerns Infection Onset Date Last Indicated Resolved Time MRSA 10/20/2011 10/20/2011 documented as of this encounter Care Teams Private Branch Exchange Service Adviser Relationship Specialty Start Date End Date Ladonna Maurer PA [address] [place] [address] PCP - General 05/12/12 01/24/13 documented as of this encounter
--- OUTSIDE RECORDS SUMMARY | 2024-07-15 01:32 | XMS_ITS | Encounter Summary ---
Author Organization [facility] Address [address] [place] [address] Care Team Providers Care Social Studies Teacher Name Role Phone Ladonna Maurer Primary Care Provider [phone] Reason for Visit * Reason Comments Dysuria Encounter Details Date Type Department Care Team (Late st Contact Info) Description 07/17/2012 11:45 EDT - 07/17/2012 15:18 EDT Hospital Encounter [facility] - [address] [address] Sarah Solitario, LICENSING ANALYST [address] [place], [place] [phone] Unknown, Provider, Dysuria; UTI (lower urinary tract [...] sterile urine sample to the lab at [facility] for a urine culture in 2 weeks. [...] TRACT INFECTION IN WOMEN: AFTER YOUR VISIT (SERBIAN) documented in this encounter Medications at Time [...] Notes * Patrick Overton, RN - 07/19/2012 0175 EDT Pt called requesting [facility] B[facility] in [place]. Rx called in. * Sarah Solitario NP [...] is presently in the midst of a GUM COOK workup and a colonoscopy planned. The history [...] Stroke Mother ??? Heart Disease Father 50 [place] ??? Diabetes Father ??? Thyroid Cancer/Nodule Maternal Aunt Cancer ??? Heart Disease Maternal Grandmother [place] ??? Diabetes Maternal Grandmother ??? Cancer Maternal [...] Genitourinary: Vesna Nash, RN present during entire GUM COOK exam. Patient encouraged to stop exam if [...] Bilirubin Neg Neg Ketones Neg Neg Specific [place] <=1.005 1.001 - 1.035 Blood 3+ (*) Neg pH 6.5 4.6 - 8.0 Protein Neg Neg Urobilinogen 0.2 0.2 - 1.0 (E.U./dl) Nitrite Neg Neg Leuk Esterase 1+ (*) Neg Tech ID [id number] TEST, URINE Component Value Range Result- Test, [...] cells present Direct Exam Performed at [facility], [place], [place] Report Status 07/17/2012 Final ED/MNCC ADD-ON Component Value Range Tests to be added URINE CULTURE Number for problems [id number] ([facility]) Radiology orders: None Procedures Course: A medical screening exam was performed.VSS And afebrile Differentials considered but not limited to: UTI, STD, IBS Social: Relocating from [facility] to the [facility]. She has a new job starting in then. She has an agreement with [facility] to pay for her medical bills. Past [...] will treat for this. Due to complicated GUM COOK/GI concerns of no menstruation since December, and [...] be given for medication onSunday. She will pickle water pump operator her prescription at [facility] on Thursday. If she still has symptoms after 3 days of Bactrim she will get a refill and take for a full week. She is returning to the [facility] and reestablishing her care. She is seen in rheumatology. She will would like to see a primary care doctor and/or a GUM COOK doctor before October to help her to [...] of further medications. Upon departure from the [facility], the patient's pain was 0 on a zero to ten scale. Condition at departure from the [facility]: Good 1. Dysuria POCT URINE DIPSTICK, [...] 5-year-old baby girl. 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 [...] encounter Miscellaneous Notes * Scanned Note-Null - LINE MAINTENANCE SUPERVISOR, SCAN 2 - 07/22/2012 0814 EDT documented in this encounter Plan of Treatment Upcoming Encounters Date Type Department Care Team (Late st Contact Info) Description 12/29/2024 10:20 EST Office Visit [facility] Rheumatology & Immunology - [facility] [address], [place] [id number] Micaela Hoff MD [address] [facility], [address] [place] [address] documented as of this encounter [...] [facility] Comment:Performed at [facility], [place], [place] Chlamydia Result No Chlamydia trachomatis DNA detected by tug master mediated amplification. [facility] GC Result No Neisseria gonorrhoeae DNA detected by tug master mediated amplification. [facility] Specimen of unknown material (specimen) TOPOGRAPHY UNKNOWN / Unknown 07/17/2012 14:42 EDT 07/17/2012 14:45 EDT Sarah Solitario NP MICROBIOLOG Y - GENERAL ORDERABLES Performing Organization Address [facility] Co de Phone Number [facility] [address] [place] [address] * WET PREP (07/17/2012 14:41 EDT) Specimen Description Vagina [facility] Direct Exam No Trichomonas or yeast present. [facility] Direct Exam No clue cells present [facility] Direct Exam Performed at [facility], [place], [place] [facility] Report Status 07/17/2012 Final [facility] Specimen of unknown material (specimen) VAGINAL STRUCTURE / Unknown 07/17/2012 14:41 EDT 07/17/2012 14:45 EDT Sarah Solitario NP MICROBIOLOG Y - GENERAL ORDERABLES Performing Organization Address [facility] de Phone Number [facility] [address] [place] [address] * ED/WICC ADD-ON (07/17/2012 14:30 EDT) Tests to be added URINE CULTURE [facility] Number for problems [id number] ([place]) [facility] Comment:Performed at [facility] [place], [place] 07/17/2012 14:3 0 EDT 07/17/2012 14:31 EDT Sarah Solitario LICENSING ANALYST HEMATOLOGY & PF4 ORDERABLES Performing Organization Address [facility] de Phone Number [facility] [address] [place] [address] * BACTERIAL CULTURE, URINE (07/17/2012 11:55 EDT) Specimen Description Urine [facility] Specimen Description Performed at [facility], [place], [place] [facility] Result Greater than [...] MICROBIOLOG Y - GENERAL ORDERABLES [facility] [address] [place] [address] * (ABNORMAL) URINE MICROSCOPIC ONLY (07/17/2012 11:55 [...] Hyaline Casts, UA None seen /LPF [facility] UA Comment Microscopic results [facility] Comment: are unreliable on urines unrefrig >2hrs or refrig >8hrs. Performed at [facility] [place], [place] Urine specimen (specimen) URINE / Unknown 07/17/2012 11:55 EDT 07/17/2012 12:02 EDT Theodore Tamez MD URINALYSIS ORD ERABLES Performing Organization Address [facility] de Phone Number [facility] [address] [place] [address] * TEST, URINE (07/17/2012 11:55 EDT) Result- Test, Ur Negative [facility] Comment: NOTE: False negative results may occur in women who are beyond 5-8 weeks gestation. Diagnosis of should be based on a correlation of test results with typical clinical signs and symptoms. Performed at [place], [place] Urine specimen (specimen) URINE / Unknown 07/17/2012 11:55 EDT 07/17/2012 12:01 EDT Theodore Tamez MD URINALYSIS ORD ERABLES Performing Organization Address [facility] de Phone Number [facility] [address] [place] [address] * (ABNORMAL) POCT URINE DIPSTICK (07/17/2012 11:52 EDT) Color YELLOW [facility] Clarity, UA Clear [facility] Glucose Neg Neg [facility] Bilirubin Neg Neg [facility] Ketones Neg Neg [facility] Specific [place] <=1.005 1.001 - 1.035 [facility] Blood 3+(A) Neg [facility] pH 6.5 4.6 - 8.0 [facility] Protein Neg Neg [facility] Urobilinogen 0.2 0.2 - 1.0 E.U./dl [facility] Nitrite Neg Neg [facility] Leuk Esterase 1+(A) Neg [facility]OL[facility] home theater installer ID [id number] [facility] Comment:[facility] Urine specimen (specimen) 07/17/2012 11:52 EDT 07/17/2012 11:58 EDT Theodore Tamez MD POINT OF CARE TEST ORDERABLES Performing Organization Address [facility] de Phone Number [facility] [address] [place] [address] documented in this encounter Visit Diagnoses Diagnosis [...] documented as of this encounter Care Teams Social Studies Teacher Relationship Specialty Start Date End Date Ladonna Maurer PA [address] [place] [address] PCP - General 05/12/12 01/24/13 documented as of this encounter
--- OUTSIDE RECORDS SUMMARY | 2024-07-15 01:32 | XMS_ITS | Encounter Summary ---
Author Organization [facility] Address [address] [place] [address] Care Team Providers Care Screen Door Maker Name Role Phone Conor Angel MD Primary Care Provider [phone] Encounter Details Date Type Department Care Team (Late st Contact Info) Description 02/10/2014 Phlebotomy Only [address] [address] Live Truck Operator, Outpatient with other poor obstetric history(V23.49) Social [...] 12/29/2024 10:20 EST Office Visit [facility] Rheumatology & Immunology - [address] [address] Micaela Hoff MD [address] [place] [address], [address] [place] [address] documented as of this encounter [...] & PF4 OR DERABLES Performing Organization Address [facility] Co de Phone Number [facility] [address] [place] [address] * (ABNORMAL) HCG FOR (02/10/2014 12:09 EDT) Quant Beta HCG, Preg 6(H) <5 mIU/ml [facility] Comment: Reference Range: Negative = <5 Indeterminate = 5-25 recommend repeat in 48 hours. Positive = >25 Blood specimen (specimen) 02/10/2014 12:09 EDT 02/10/2014 12:18 EDT Sarah Rogers MD CHEMISTRY & BLOOD G ORDERABLES Performing Organization Address [facility] Co de Phone Number [facility] [address] [place] [address] documented in this encounter Visit Diagnoses Diagnosis with other poor obstetric history(V23.49) with other poor obstetric history documented in this encounter Additional Health Concerns Infection Onset Date Last Indicated Resolved Time MRSA 10/20/2011 10/20/2011 documented as of this encounter Care Teams Screen Door Maker Relationship Specialty Start Date End Date Conor Angel MD [address] [place] [address] PCP - General 02/07/14 06/08/14 documented as of this encounter
--- OUTSIDE RECORDS SUMMARY | 2024-07-15 01:32 | XMS_ITS | Encounter Summary ---
Author Organization [facility] Address [address] [place] [address] Care Team Providers Care Inspector Floor Sub Assembly Name Role Phone Cara Arteaga MD Primary Care Provider Encounter Details Date Type Department Care Team (Late st Contact Info) Description 11/18/2013 Results Only [facility] Laboratory Services - [facility] ([facility]) [address] [place] [id number] Roberto Zuleta MD [address] [place] [address] [place] [phone] Social History Tobacco Use Types Packs/Day Years [...] [facility] Rheumatology & Immunology - [facility] [address] [place], [place] [phone] Micaela Hoff MD [address] [facility], [address] [place] [phone] documented as of this encounter Procedures Procedure [...] ? TERI CROWE ? Accession #: ? [id number] ? : ? 1980 (Age: 33) ??F [...] (initials H, E) and cecum are three pink-atn tissue fragments (0.2 x 0.2 x 0.2 [...] Zuleta MD PATHOLOGY ORDERABLES Performing Organization Address City/State/[facility] Co de Phone Number [facility] [address] [place] [address] documented in this encounter Visit Diagnoses Not on filedocumented in this encounter Additional Health Concerns Infection Onset Date Last Indicated Resolved Time MRSA 10/20/2011 10/20/2011 documented as of this encounter Care Teams Inspector Floor Sub Assembly Relationship Specialty Start Date End Date Cara Arteaga MD [address] [place] [phone] PCP - General 01/25/13 02/06/14 documented as of this encounter
--- OUTSIDE RECORDS SUMMARY | 2024-07-15 01:32 | XMS_ITS | Encounter Summary ---
Author Organization [facility] Address [address] [place] [address] Care Team Providers Care Service Center Technician Name Role Phone Conor Angel MD Primary Care Provider Reason for Referral * Consult (Routine) - Specialty Report Received Specialty Diagnoses / Procedures Referred By Ehsan patel Referred To Contact Obstetrics Diagnoses History of loss in prior , currently Duyen Haro RN [facility] [address] [place] [address] Referral ID Status Reason Start Date Expiration Date Visits Requested Visits Authorized [id number] Specialty Report Received Specialty Services Required 04/26/2014 1 1 Question Answer Reason for Request: History of 20 week loss, uterine septum with subsequent septoplasty.2nd preg Rx vag prog,39 wk del Scheduling Comments (optional ? describe specific scheduling needs if applicable): within a month * RESERVOIR ENGINEERING MANAGER (Routine) - Closed Specialty Diagnoses / Procedures Referred By Ehsan t Referred To Contact Diagnoses Supervision of other normal Procedures MUSIC VIDEO PRODUCER US OB FIRST TRIMESTER TRANSVAGINAL Rehan Abarca MD [address] [place] [address] [place] [address] Referral ID Status Reason Start Date Expiration Date Visits Re quested Visits Authorized [id number] Closed 04/26/2014 1 1 Reason for Visit * Reason Comments Initial Visit Encounter Details Date Type Department Care Team (Late st Contact Info) Description 04/26/2014 14:45 EDT Initial [facility] OBGYN Services - [address] [address] Rehan Abarca MD [address] [place] [address] [place] [address] GA: 5w5d Social History Tobacco Use Types [...] Value: No Chlamydia trachomatis DNA detected by consumer attorney mediated amplification. Result-GC Amp Probe Value: No Neisseria gonorrhoeae DNA detected by consumer attorney mediated amplification. TYPE AND SCREEN Collection Time [...] [facility] Rheumatology & Immunology - [address] [phone] Micaela Hoff MD [address] [place] [address], [address] [place] [address] Scheduled Referrals Name Type Priority Associated Diagnoses Orde r Schedule AMB CONS/FOLLOW UP MATERNAL MEDICINE Outpatient Referral Routine History of loss in prior , currently Ordered: 04/26/2014 documented as of this encounter Procedures Procedure Name Priority Date/Time Associated Diagnosis Comments MUSIC VIDEO PRODUCER US OB FIRST TRIMESTER TRANSVAGINAL Routine 05/11/2014 14:27 EDT Supervision of other normal TYPE AND SCREEN Routine 04/26/2014 16:44 EDT CHLAMYDIA/N. GONORRHOEAE AMPLIFIED NUCLEIC ACID, THINPREP Routine 04/26/2014 16:11 EDT Supervision of other normal documented in this encounter Results * MUSIC VIDEO PRODUCER US OB FIRST TRIMESTER TRANSVAGINAL (05/11/2014 14:27 [...] Summary: Impression: 1st Trimester OB scan ,transvaginal [phone] First trimester obstetrical US, transvaginal This is [...] Summary: Impression: 1st Trimester OB scan ,transvaginal [phone] First trimester obstetrical US, transvaginal This is a sanford gestation. Viable IUP. CRL is consistent with menstrual dating. A normal heart beat and yolk sac were noted. Previously resected septum not seen. Recommendations: Follow-up as clinically indicated. Follow-up with [facility] for care. Procedure Note 06/29/2014 Addendum Begins [...] Summary: Impression: 1st Trimester OB scan ,transvaginal [phone] First trimester obstetrical US, transvaginal This is a sanford gestation. Viable IUP. CRL is consistent with menstrual dating. A normal heart beat and yolk sac were noted. Previously resected septum not seen. Recommendations: Follow-up as clinically indicated. Follow-up with [facility] for care. Addendum Ends Indication: dating. Septate [...] Summary: Impression: 1st Trimester OB scan ,transvaginal [phone] First trimester obstetrical US, transvaginal This is a sanford gestation. Viable IUP. CRL is consistent with menstrual dating. A normal heart beat and yolk sac were noted. Previously resected septum not seen. Recommendations: Follow-up as clinically indicated. Follow-up with [facility] for care. Rehan Abarca MD IMG US MUSIC VIDEO PRODUCER ORDERABLE S * TYPE AND SCREEN (04/26/2014 16:44 EDT) ABO A [facility] Rh Factor Positive [facility] Antibody Screen Negative [facility] 04/26/2014 16:4 4 EDT Provider Theresa BOYER BLOOD BANK TESTS Performing Organization Address [facility] Co de Phone Number [facility] * HEPATITIS C ANTIBODY (04/26/2014 16:15 EDT) Hepatitis C Ab Negative [facility] Comment:Reference Range: Neg ative Blood specimen (specimen) 04/26/2014 16:15 EDT 04/26/2014 16:34 EDT Rehan Abarca MD CHEMISTRY & BLOOD GA S ORDERABLES [facility] [address] [place] [address] * CHLAMYDIA/GC AMPLIFIED, THIN PREP (04/26/2014 16:11 EDT) Specimen Description Cervix, ThinPrep vial [facility] Chlamydia Result No Chlamydia trachomatis DNA detected by consumer attorney mediated amplification. [facility] GC Result No Neisseria gonorrhoeae DNA detected by consumer attorney mediated amplification. [facility] Specimen of unknown material (specimen) TOPOGRAPHY UNKNOWN / Unknown 04/26/2014 16:11 EDT 04/28/2014 7:50 EDT Rehan Abarca MD MICROBIOLOGY - GENER AL ORDERABLES [facility] [address] [place] [address] documented in this encounter Visit Diagnoses Diagnosis [...] documented as of this encounter Care Teams Service Center Technician Relationship Specialty Start Date End Date Conor Angel MD [address] [place] [address] PCP - General 02/07/14 06/08/14 documented as of this encounter
--- OUTSIDE RECORDS SUMMARY | 2024-07-15 01:32 | XMS_ITS | Encounter Summary ---
Author Organization [facility] Address [address] [place] [address] Care Team Providers Care Pump Stitcher Name Role Phone None, Provider Primary Care Provider Unavailabl e Reason for Referral * Radiology Services (Routine) - Closed Specialty Diagnoses / Procedures Referred By Contac t Referred To Contact Diagnoses Septate uterus, antepartum Procedures RAD US RETROPERITONEAL COMPLETE Rehan Abarca MD [address] [place] [address] [place] [address] Referral ID Status Reason Start Date Expiration Date Visits Re quested Visits Authorized [id number] Closed 06/13/2014 1 1 * AND TAXI INSTRUCTOR BUS TROLLEY (Routine) - Closed Specialty Diagnoses / Procedures Referred By Contac t Referred To Contact Diagnoses Supervision of other high-risk (V23.89) Procedures DETENTION DETAILED Rehan Abarca MD [address] [place] [address] [place] [address] Referral ID Status Reason Start Date Expiration Date Visits Re quested Visits Authorized [id number] Closed 06/13/2014 1 1 * AND TAXI INSTRUCTOR BUS TROLLEY (Routine) - Closed Specialty Diagnoses / Procedures Referred By Contac t Referred To Contact Diagnoses Supervision of other high-risk (V23.89) Procedures DETENTION TRANSVAGINAL Rehan Abarca MD [address] [place] [address] [place] [address] Referral ID Status Reason Start Date Expiration Date Visits Re quested Visits Authorized [id number] Closed 06/13/2014 1 1 Reason for Visit * Reason Comments Routine Visit Encounter Details Date Type Department Care Team (Late st Contact Info) Description 06/13/2014 14:30 EDT Routine [facility] Obstetrics & Midwifery - [address] [address] Makeda Lucas MD [address] [place] [address], [address] [place] [address] GA: 12w4d Discharge Disposition: Auto [...] MD * Makeda Lucas MD - 06/13/2014 4975 EDT [facility] Attending I saw and examined [...] [place] for consultation and plans to start [place] IM injections weekly until 36 weeks gestation. Transvaginal cervical length measurements to start at 16 weeks. documented in this encounter Plan of Treatment Upcoming Encounters Date Type Department Care Team (Late st Contact Info) Description 12/29/2024 10:20 EST Office Visit [facility] Rheumatology & Immunology - [address] [address] Micaela Hoff MD [address] [place] [address], [address] [place] [address] documented as of this encounter Procedures Procedure Name Priority Date/Time Associated Diagnosis Comments DETENTION DETAILED Routine 08/08/2014 11:19 EDT Supervision of other high-risk (V23.89) RAD US RETROPERITONEAL COMPLETE Routine 07/11/2014 11:05 EDT Septate uterus, antepartum DETENTION TRANSVAGINAL Routine 07/11/2014 9:48 EDT Supervision of other high-risk (V23.89) documented in this encounter Results * DETENTION DETAILED (08/08/2014 11:19 EDT) Anatomical Region Laterality [...] of Ultrasound Findings: Transabdominal US. U/S machine: [employer] e8. U/S view: good. Genetic Sonogram: measured [...] mm. Volume: 7.5 ml. Report Summary: Impression: [id number] Obstetrical ultrasound with and maternal evaluation, including [...] of Ultrasound Findings: Transabdominal US. U/S machine: [employer] e8. U/S view: good. Genetic Sonogram: measured [...] mm. Volume: 7.5 ml. Report Summary: Impression: [id number] Obstetrical ultrasound with and maternal evaluation, including [...] Follow-up as clinically indicated. Rehan Abarca MD [facility] DETENTION ORDERABLE S * RAD US RETROPERITONEAL COMPLETE (07/11/2014 11:05 EDT) Anatomical Region Laterality Modality Other 07/11/2014 11:0 5 EDT 07/11/2014 14:04 EDT Narrative 07/11/2014 14:04 EDT RAD US RETROPERITONEAL COMPLETE ??07/11/2014 11:05 AM Signs and Symptoms/Comments: ??654.03-Congenital abnormalities of uterus, [id number]-CM; history of a uterine anomaly . The [...] Signs and Symptoms/Comments: 654.03-Congenital abnormalities of uterus, [id number]-CM; history of a uterine anomaly . The [...] kidney and urinary bladder Rehan Abarca MD [facility] ORDERABLES * DETENTION TRANSVAGINAL (07/11/2014 9:48 EDT) Anatomical Region Laterality [...] Cervical length: 18 mm. Report Summary: Impression: [id number] Transvaginal obstetrical scan A transvaginal scan was [...] Cervical length: 18 mm. Report Summary: Impression: [id number] Transvaginal obstetrical scan A transvaginal scan was [...] Cervical length: 18 mm. Report Summary: Impression: [id number] Transvaginal obstetrical scan A transvaginal scan was [...] Cervical length: 18 mm. Report Summary: Impression: [id number] Transvaginal obstetrical scan A transvaginal scan was [...] ... ... ... ... Rehan Abarca MD [facility] ORDERABLE S * T4 FREE (06/13/2014 15:23 EDT) Free T4 1.4 0.8 - 1.8 ng/dl [facility] Blood specimen (specimen) 06/13/2014 15:23 EDT 06/13/2014 16:22 EDT Rehan Abarca MD CHEMISTRY & BLOOD GA S ORDERABLES Performing Organization Address City/[facility] Co de Phone Number [facility] [address] [place] [address] * TSH (06/13/2014 15:23 EDT) TSH 1.01 0.35 - 5.00 uIU/ml [facility] Blood specimen (specimen) 06/13/2014 15:23 EDT 06/13/2014 16:22 EDT Rehan Abarca MD CHEMISTRY & BLOOD GA S ORDERABLES Performing Organization Address City/[facility] Co de Phone Number [facility] [address] [place] [address] documented in this encounter Visit Diagnoses Diagnosis [...] as of this encounter Care Teams Pump Stitcher Relationship Specialty Start Date End Date None, Provider PCP - General 06/09/14 03/01/15 documented as of this encounter
--- OUTSIDE RECORDS SUMMARY | 2024-07-15 01:32 | XMS_ITS | Encounter Summary ---
Author Organization [facility] Address [address] [place] [address] Care Team Providers Care Evp Sales Name Role Phone Conor Angel MD Primary Care Provider [phone] Reason for Visit * Reason Onset Date Comments Labs Only 02/20/2014 Encounter Details Date Type Department Care Team (Late st Contact Info) Description 02/20/2014 Telephone [facility] - [facility] [address] [place] [address] Cecilia Hines, RN [address] [place] [address] Labs Only Social History Tobacco Use Types [...] 4..14 HCG- 6, repeat 4.14- <2 at [facility] in [place]. Reviewed with patient- verbalized understanding. Will follow up as necessary. documented in this encounter Plan of Treatment Upcoming Encounters Date Type Department Care Team (Late st Contact Info) Description 12/29/2024 10:20 EST Office Visit [facility] Rheumatology & Immunology - [facility] [address] [place], [place] [address] Micaela Hoff MD 111 [facility], Level 5 [place] [phone] documented as of this encounter Visit Diagnoses Not on filedocumented in this encounter Additional Health Concerns Infection Onset Date Last Indicated Resolved Time MRSA 10/20/2011 10/20/2011 documented as of this encounter Care Teams Evp Sales Relationship Specialty Start Date End Date Conor Angel MD [address] [place] [address] PCP - General 02/07/14 06/08/14 documented as of this encounter
--- OUTSIDE RECORDS SUMMARY | 2024-07-15 01:32 | XMS_ITS | Encounter Summary ---
Author Organization [facility] Address [address] [place] [address] Care Team Providers Care Production Cook Name Role Phone Cara Arteaga MD Primary Care Provider Reason for Visit * Reason Onset Date Comments 02/06/2014 LMP 3-8-14 Encounter Details Date Type Department Care Team (Late st Contact Info) Description 02/06/2014 Telephone [facility] Obstetrics & Midwifery - [facility] [address] [place], [place] [phone] Duyen Haro, RN (LMP 3-8-14) Social History [...] EDT Phone call from rosa Williamson. Was [facility] patient in [phone]. Delivered full- term daughter afterseptum repair, was supplemented by progesterone suppositories from what she says. Newly with LMP of 3-8-14. vitamins and extra folic acid e-scribed to local pharmacy. Order placed for dating/viability scan same day. documented in this encounter Plan of Treatment Upcoming Encounters Date Type Department Care Team (Late st Contact Info) Description 12/29/2024 10:20 EST Office Visit [facility] Rheumatology & Immunology - [address] [address] Micaela Hoff MD 111 [facility], Level 5 [place] [phone] documented as of this encounter Visit Diagnoses Diagnosis Absence of menstruation- Primary documented in this encounter Additional Health Concerns Infection Onset Date Last Indicated Resolved Time MRSA 10/20/2011 10/20/2011 documented as of this encounter Care Teams Production Cook Relationship Specialty Start Date End Date Cara Arteaga MD [address] [place] [phone] PCP - General 01/25/13 02/06/14 documented as of this encounter
--- OUTSIDE RECORDS SUMMARY | 2024-07-15 01:32 | XMS_ITS | Encounter Summary ---
Author Organization [facility] Address [address] [place] [address] Care Team Providers Care Cargoman Name Role Phone Conor Angle MD Primary Care Provider [phone] Encounter Details Date Type Department Care Team (Latest Contact Info) Description 02/10/2014 11:49 EDT - 02/10/2014 23:59 EDT Hospital Encounter [facility] [address] [place] [address] Unknown, Provider, Discharge Disposition: Home or Self [...] Code Departure Means Destination Home or Self Retirement documented in this encounter Plan of Treatment Upcoming Encounters Date Type Department Care Team ([facility] st Contact Info) Description 12/29/2024 10:20 EST Office Visit [facility] Rheumatology & Immunology - [address] [address] Micaela Hoff MD [address] [place] [address], [address] [place] [phone] documented as of this encounter Visit Diagnoses Not on filedocumented in this encounter Additional Health Concerns Infection Onset Date Last Indicated Resolved Time MRSA 10/20/2011 10/20/2011 documented as of this encounter Care Teams Cargoman Relationship Specialty Start Date End Date Conor Angel MD [address] [place] [address] PCP - General 02/07/14 06/08/14 documented as of this encounter
--- OUTSIDE RECORDS SUMMARY | 2024-07-15 01:32 | XMS_ITS | Encounter Summary ---
Author Organization [facility] Address [address] [place] [address] Care Team Providers Care Web Merchant Name Role Phone Ladonna Maurer Primary Care Provider Reason for Referral * Consult (Routine/Next Available) - Closed Specialty Diagnoses / Procedures Referred By Contact Referred To Contact Gastroenterology and Hepatology Diagnoses Irritable bowel syndrome (IBS) Drew Grijalva MD [address] [place], [place] [address]ey [facility] [address] [place] [phone] [facility] [address] [place] [address] Referral ID Status Reason Start Date Expiration Date V isits Requested Visits Authorized [id number] Closed Specialty Services Required 11/16/2012 1 1 Question Answer Reason for Request: multiple bowel issues - not thyroid related Reason for Visit * Reason Comments Hypothyroidism Encounter Details Date Type Department Care Team (Latest Contact Info) Description 11/16/2012 9:00 EST Office Visit [facility] Endocrinology - [facility] [address] [place] [address] Drew Grijalva MD 62 [facility] [address] [place] [address] Unspecified hypothyroidism (Primary Dx); Mena's [...] 01/14/2012 No results found for this basename: [id number] No components found with this basename: [id number] No results found for this basename: [id number] Lab Results Component Value Date FREET4 1.8 [...] Description 12/29/2024 10:20 EST Office Visit [facility] Rheumatology & Immunology - [address] [address] Micaela Hoff MD 111 [facility], [address] [place] [address] Scheduled [...] & BLOOD GAS ORDERABLES [facility] [address] [place] [address] * T4 FREE (11/16/2012 9:32 EST) Free T4 1.5 0.8 - 1.8 ng/dL [facility] Blood specimen (specimen) 11/16/2012 9:32 EST 11/16/2012 15:54 EST Drew Grijalva MD CHEMISTRY & BLOOD GAS ORDERABLES [facility] [address] [place] [address] documented in this encounter Visit Diagnoses Diagnosis Unspecified hypothyroidism- Primary Mena's thyroiditis Chronic lymphocytic thyroiditis Irritable bowel syndrome (IBS) Irritable bowel syndrome documented in this encounter Additional Health Concerns Infection Onset Date Last Indicated Resolved Time MRSA 10/20/2011 10/20/2011 documented as of this encounter Care Teams Web Merchant Relationship Specialty Start Date End Date Ladonna Maurer PA [address] [place] [address] PCP - General 05/12/12 01/24/13 documented as of this encounter
--- OUTSIDE RECORDS SUMMARY | 2024-07-15 01:32 | XMS_ITS | Encounter Summary ---
Author Organization [facility] Address [address] [place] [address] Care Team Providers Care It Data Architect Name Role Phone None, Provider Primary Care Provider Unavailabl e Reason for Referral * (Routine) - Closed Specialty Diagnoses / Procedures Referred By Ehsan patel Referred To Contact Anna Gore MD [address] [place] [address] Referral ID Status Reason Start Date Expiration Date V isits Requested Visits Authorized [id number] Closed Specialty Services Required 06/29/2014 1 1 Encounter Details Date Type Department Care Team (Late st Contact Info) Description 06/29/2014 17:20 EDT - 06/29/2014 18:10 EDT Hospital Encounter [facility] Unit [address] [place] [address] Robb Nam MD 111 [facility], [facility] [address] [place] [address] with history of pre-term labor [...] [facility] Immunology - [address] [address] Micaela Hoff MD [address] [place] [address], [address] [place] [address] Scheduled Referrals Name Type Priority [...] Phone Number [facility] [address] [place] [address] documented in this encounter Visit Diagnoses Diagnosis [...] documented as of this encounter Care Teams It Data Architect Relationship Specialty Start Date End Date None, Provider PCP - General 06/09/14 03/01/15 documented as of this encounter
--- OUTSIDE RECORDS SUMMARY | 2024-07-15 01:32 | XMS_ITS | Encounter Summary ---
Author Organization [facility] Address [address] [place] [address] Care Team Providers Care Gun Perforator Name Role Phone Conor Angel MD Primary Care Provider [phone] Encounter Details Date Type Department Care Team (Late st Contact Info) Description 04/26/2014 Phlebotomy Only [address] [address] Range Management Specialist, Outpatient Supervision of other normal ; Hypothyroidism, [...] [facility] Rheumatology & Immunology - [address] [address] Micaela Hoff MD [address] [place] [address], [facility] [address] [place] [phone] documented as of this encounter Procedures Procedure [...] Result Less than 10,000 CFU/ml Usual urogenital amrquita. [facility] Report Status 04/28/2014 Final [facility] Urine specimen (specimen) URINE / Unknown 04/26/2014 16:16 EDT 04/26/2014 16:46 EDT Rehan Abarca MD MICROBIOLOGY - GENER AL ORDERABLES [facility] [address] [place] [address] * SYPHILIS SEROLOGY (04/26/2014 16:15 EDT) Syphilis Serology Interpretation: Nonreactive [facility] Comment:Reference Range: Non reactive 04/26/2014 16:1 5 EDT 04/26/2014 16:34 EDT Rehan Abarca MD IMMUNOLOGY AND SEROL OGY ORDERABLES Performing Organization Address [facility] de Phone Number [facility] [address] [place] [address] * HEPATITIS B SURFACE ANTIGEN (04/26/2014 16:15 EDT) Hepatitis B Surface Ag Negative [facility] Comment:Reference Range: Neg ative 04/26/2014 16:1 5 EDT 04/26/2014 16:34 EDT Rehan Abarca MD CHEMISTRY & BLOOD GA S ORDERABLES Performing Organization Address [facility] Phone Number [facility] [address] [place] [address] * RUBELLA IGG ANTIBODY (04/26/2014 16:15 EDT) Rubella IgG Ab Positive [facility] Comment: Positive results suggest immunity to Rubella infection. 04/26/2014 16:1 5 EDT 04/26/2014 16:34 EDT Rehan Abarca MD CHEMISTRY & BLOOD GA S ORDERABLES Performing Organization Address [facility] de Phone Number [facility] [address] [place] [address] * BB STUDY (04/26/2014 16:15 EDT) ABO and Rh Type A POS [facility] Antibody Screen Neg [facility] 04/26/2014 16:1 5 EDT 04/26/2014 16:34 EDT Rehan Abarca MD BLOOD BANK TESTS Performing Organization Address [facility] de Phone Number [facility] [address] [place] [address] * DIFFERENTIAL (04/26/2014 16:15 EDT) % Neutrophils [...] PF4 ORD ERABLES [facility] [address] [place] [address] * HEMAGRAM (04/26/2014 16:15 EDT) WBC 7.83 [...] RDW-CV 12.2 11.7 - 14.6 % [facility] 04/26/2014 16:1 5 EDT 04/26/2014 16:34 EDT Rehan Abarca MD HEMATOLOGY & PF4 ORD ERABLES Performing Organization Address [facility] de Phone Number [facility] [address] [place] [address] * HEPATITIS C ANTIBODY (04/26/2014 16:15 EDT) Hepatitis C Ab Negative [facility] Comment:Reference Range: Neg ative Blood specimen (specimen) 04/26/2014 16:15 EDT 04/26/2014 16:34 EDT Rehan Abarca MD CHEMISTRY & BLOOD GA S ORDERABLES Performing Organization Address [facility] Phone [place] [address] * THYROID CASCADE (04/26/2014 16:15 EDT) TSH 2.39 0.35 - 5.00 uIU/ml [facility] Comment: TSH cascade is not recommended for patients in which pituitary or hypothalamic disorders are suspected. Blood specimen (specimen) 04/26/2014 16:15 EDT 04/26/2014 16:34 EDT Rehan Abarca MD CHEMISTRY & BLOOD GA S ORDERABLES Performing Organization Address [facility] Phone Number [facility] [address] [place] [address] * HIV 1/2 ANTIBODY (04/26/2014 16:15 EDT) HIV 1/2 Antibody Negative [facility] Comment: If acute HIV-1 infection is suspected in a high risk patient, submit plasma specimen for HIV-1 RNA quantification test. Reference Range: ??Negative Assayed utilizing [facility] chemiluminescent technology. Blood specimen (specimen) 04/26/2014 16:15 EDT 04/26/2014 16:34 EDT Rehan Abarca MD IMMUNOLOGY AND FRANCIS WEEMS ORDERABLES [facility] [address] [place] [address] documented in this encounter Visit Diagnoses Diagnosis Supervision of other normal Hypothyroidism, maternal, antepartum Thyroid dysfunction, antepartum documented in this encounter Additional Health Concerns Infection Onset Date Last Indicated Resolved Time MRSA 10/20/2011 10/20/2011 documented as of this encounter Care Teams Gun Perforator Relationship Specialty Start Date End Date Conor Angel MD [address] [place] [address] PCP - General 02/07/14 06/08/14 documented as of this encounter
--- OUTSIDE RECORDS SUMMARY | 2024-07-15 01:32 | XMS_ITS | Encounter Summary ---
Author Organization [facility] Address [address] [place] [address] Care Team Providers Care Drug Abuse Treatment Specialist Name Role Phone None, Provider Primary Care Provider Unavailabl e Reason for Visit * Reason Onset Date Comments Medication Management 06/14/2014 [place] Encounter Details Date Type Department Care Team (Late st Contact Info) Description 06/14/2014 Telephone [facility] Obstetrics & Midwifery - [facility] [address] [place] [address] Soledad Crawley, computer methods analyst Management ([place]) Social History Tobacco Use Types Packs/Day Years [...] 06/14/2014 1033 EDT Call from Nubia at [facility] licensed funeral director to discuss collaborative care for Teri to receive [place] injections in [place]. Pt desires this plan, she is aware she needs to schedule appointment with [facility] prior to initiating scheduled injections. Teri offered no questions or concerns, verbalizedunderstanding and agreement with plan of care. documented in this encounter Plan of Treatment Upcoming Encounters Date Type Department Care Team (Late st Contact Info) Description 12/29/2024 10:20 EST Office Visit [facility] Rheumatology & Immunology - [address] [address] Micaela Hoff MD [address] [place] [address], [address] [place] [address] documented as of this encounter Visit Diagnoses Not on filedocumented in this encounter Additional Health Concerns Infection Onset Date Last Indicated Resolved Time MRSA 10/20/2011 10/20/2011 documented as of this encounter Care Teams Drug Abuse Treatment Specialist Relationship Specialty Start Date End Date None, Provider PCP - General 06/09/14 03/01/15 documented as of this encounter
--- OUTSIDE RECORDS SUMMARY | 2024-07-15 01:32 | XMS_ITS | Encounter Summary ---
Author Organization [facility] Address [address] [place] [address] Care Team Providers Care Superintendent Meters Name Role Phone Ladonna Maurer Primary Care Provider [phone] Reason for Visit * Reason Comments Hip Pain bi-lat worse in AM. Encounter Details Date Type Department Care Team (Late st Contact Info) Description 09/26/2012 13:00 EST - 09/26/2012 15:43 EST Hospital Encounter [facility] Urgent Care - [address] [phone] Clarke Lambert MD [address] [facility] [place] [address] Trochanteric bursitis of both hips; Mena's [...] Everywhere. * HIP BURSITIS: AFTER YOUR VISIT ([place]) * TROCHANTERIC BURSITIS: EXERCISES ([place]) documented in this encounter Medications at Time [...] medications. Upon departure from the [facility], the patient's pain was 5 on a zero to ten scale. Condition at departure from the [facility]: Stable 1. 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 [facility] 09/26/2012 15:40 * Sonya Stoll RN - 09/26/2012 5201 EST C/O hip pain bi-lat worse in [...] encounter Miscellaneous Notes * Scanned Note-Null - LAPIDARY APPRENTICE, SCAN 2 - 09/30/2012 1318 EST documented in this encounter Plan of Treatment Upcoming Encounters Date Type Department Care Team (Late st Contact Info) Description 12/29/2024 10:20 EST Office Visit [facility] Rheumatology & Immunology - [address] [phone] Micaela Hoff MD 111 [facility], [address] [place] [address] documented as of this encounter [...] documented as of this encounter Care Teams Superintendent Meters Relationship Specialty Start Date End Date Ladonna Maurer PA [address] [place] [place] [address] PCP - General 05/12/12 01/24/13 documented as of this encounter
--- OUTSIDE RECORDS SUMMARY | 2024-07-15 01:32 | XMS_ITS | Encounter Summary ---
Author Organization [facility] Address [address] [place] [address] Care Team Providers Care General Ledger Bookkeeper Name Role Phone Unknown, Provider Primary Care Provider [phone] Reason for Visit * Reason Onset Date Comments Release of Information 03/09/2012 TRANSFER OF CARE TO [facility] Encounter Details Date Type Department Care Team (Late Contact Info) Description 03/09/[address] [address] Unknown, Provider, Release of Information (TRANSFER OF CARE TO [facility]) Social History Tobacco Use Types [...] all her records have been transferred to [facility] This was done on 03/05/2012 documented in this encounter Plan of Treatment Upcoming Encounters Date Type Department Care Team (Late Contact Info) Description 12/29/2024 10:20 EST Office Visit [facility] Rheumatology & Immunology - [facility] [address] [place] [address] Micaela Hoff MD 111 [facility], [address] [place] [phone] documented as of this encounter Visit Diagnoses Not on filedocumented in this encounter Additional Health Concerns Infection Onset Date Last Indicated Resolved Time MRSA 10/20/2011 10/20/2011 documented as of this encounter Care Teams General Ledger Bookkeeper Relationship Specialty Start Date End Date Unknown, Provider, PCP - General 03/09/12 05/11/12 documented as of this encounter
--- OUTSIDE RECORDS SUMMARY | 2024-07-15 01:32 | XMS_ITS | Encounter Summary ---
Author Organization [facility] Address [address] [place] [address] Care Team Providers Care Hub Inventory Specialist Name Role Phone None, Provider Primary Care Provider Unavailabl e Reason for Visit * Reason Onset Date Comments Injections 06/27/2014 Newton Hamilton Encounter Details Date Type Department Care Team (Late st Contact Info) Description 06/27/2014 Telephone [facility] Obstetrics & Midwifery - [facility] [address] [place], [place] [phone] Duyen Haro, RN Injections (Ary) Social History [...] [facility] Rheumatology & Immunology - [address] [phone] Micaela Hoff MD [address] [place] [address], [address] [place] [address] documented as of this encounter Visit Diagnoses Not on filedocumented in this encounter Additional Health Concerns Infection Onset Date Last Indicated Resolved Time MRSA 10/20/2011 10/20/2011 documented as of this encounter Care Teams Hub Inventory Specialist Relationship Specialty Start Date End Date None, Provider PCP - General 06/09/14 03/01/15 documented as of this encounter
--- OUTSIDE RECORDS SUMMARY | 2024-07-15 01:32 | XMS_ITS | Encounter Summary ---
Author Organization [facility] Address [address] [place] [address] Care Team Providers Care Electrolytic De Scaler Name Role Phone None, Provider Primary Care Provider Unavailabl e Reason for Visit * Reason Onset Date Comments Other 06/20/2014 Ary, records for [facility] Encounter Details Date Type Department Care Team (Late st Contact Info) Description 06/20/2014 Telephone [facility] Obstetrics & Midwifery - [facility] [address] [place], [place] [phone] Chrissie Lai, RN Other (Ary, records for [facility]) Social History Tobacco Use [...] Miscellaneous Notes * Telephone Encounter - Chrissie Lia - 06/20/2014 5672 EDT Teri called and asked [facility] to contact [facility] about her Ary injections. [place] she is having some of her injections here @ [facility]. Reviewed the note from visit, pt desires injections in [place]. Pt agrees this is the plan. -Spoke with nurse @ [place] [facility]. Explained patient would have injections there. Copy of records faxed to [place] at their request. documented in this encounter Plan of Treatment Upcoming Encounters Date Type Department Care Team (Late st Contact Info) Description 12/29/2024 10:20 EST Office Visit [facility] Rheumatology & Immunology - [address] [phone] Micaela Hoff MD [address] [place] [address], [address] [place] [address] documented as of this encounter Visit Diagnoses Not on filedocumented in this encounter Additional Health Concerns Infection Onset Date Last Indicated Resolved Time MRSA 10/20/2011 10/20/2011 documented as of this encounter Care Teams Electrolytic De Scaler Relationship Specialty Start Date End Date None, Provider PCP - General 06/09/14 03/01/15 documented as of this encounter
--- OUTSIDE RECORDS SUMMARY | 2024-07-15 01:32 | XMS_ITS | Encounter Summary ---
Author Organization [facility] Address [address] [place] [address] Care Team Providers Care Community Living Coach Name Role Phone None, Provider Primary Care Provider Unavailabl e Reason for Referral * FABRIC INSPECTOR (Routine) - Closed Specialty Diagnoses / Procedures [facility] To Contact Diagnoses with history of pre-term labor Cervical shortening, antepartum condition or complication Procedures NURSING HOME TRANSVAGINAL Stiven Logan MD [address] [place] [phone] Referral ID Status Reason Start Date Expiration Date Visits Re quested Visits Authorized [id number] Closed 07/11/2014 1 1 Reason for Visit * Reason Comments Routine Visit Encounter Details Date Type Department Care Team (Late st Contact Info) Description 07/11/2014 8:[address] [facility] Obstetrics & Midwifery - [address] [id number] Stiven Logan MD [address] [place] [phone] GA: 16w4d Discharge Disposition: Auto Discharge [...] EDTAssociated Problem(s): with history of pre-term labor [facility] attendnig S: She is doing well. She had a heavier discharge a couple weeks ago but it resolved. She is back to her normal. No cramping or bleeding. She says she has had some headaches (frontal). O: see vitals A: IUP at 16w4d doing well Headache Hx of on [place] P: She has her lab slips for [...] [facility] Rheumatology & Immunology - [address] [id number] Micaela Hoff MD [address] [place] [address], [address] [place] [phone] documented as of this encounter Procedures Procedure Name Priority Date/Time Associated Diagnosis Comments NURSING HOME TRANSVAGINAL Routine 07/18/2014 11:5 0 EDT with history of pre-term labor Cervical shortening, antepartum condition or complication documented in this encounter Results * NURSING HOME TRANSVAGINAL (07/18/2014 11:50 EDT) Anatomical Region [...] no free fluid visible. Report Summary: Impression: [id number] Transvaginal obstetrical scan A transvaginal scan was [...] no free fluid visible. Report Summary: Impression: [id number] Transvaginal obstetrical scan A transvaginal scan was [...] ... ... ... ... Stiven Logan MD [facility] ORDER HEATH documented in this encounter Visit Diagnoses Diagnosis with history of pre-term labor- Primary Cervical shortening, antepartum condition or complication documented in this encounter Additional Health Concerns Infection Onset Date Last Indicated Resolved Time MRSA 10/20/2011 10/20/2011 documented as of this encounter Care Teams Community Living Coach Relationship Specialty Start Date End Date None, Provider PCP - General 06/09/14 03/01/15 documented as of this encounter
--- OUTSIDE RECORDS SUMMARY | 2024-07-15 01:32 | XMS_ITS | Encounter Summary ---
Author Organization [facility] Address [address] [place] [address] Care Team Providers Care Usability Strategist Name Role Phone Cara Arteaga MD Primary Care Provider Encounter Details Date Type Department Care Team (Late st Contact Info) Description 08/01/2013 Results Only [facility] Laboratory Services - [facility] ([facility] [address] [place], [place] [address] Ladonna Maurer PA [address] [place] [id number] Social History Tobacco Use Types Packs/Day Years [...] [facility] Rheumatology & Immunology - [facility] [address] [place], [place] [phone] Micaela Hoff MD [address] [facility], [address] 5 [place] [phone] documented as of this encounter Procedures Procedure Name Priority Date/Time Associated Diagnosis Comments CYTOPATHOLOGY Routine 08/01/2013 0:00 EDT documented in this encounter Results * CYTOPATHOLOGY (08/01/2013 0:00 EDT) Pathologist [facility] Pathology Report: CYTOPATHOLOGY REPORT Reports generated via electronic interface contain original data; however they are lacking the format of the original report. Caution should be taken when reading/interpreti ng unformatted reports. Name: ? SEBASTIENTERI ? Accession #: ? [id number] : ? 1980 (Age: 33) ??F ?Collect [...] [facility] ORDERABLES [facility] [address] [place] [address] documented in this encounter Visit Diagnoses Not on filedocumented in this encounter Additional Health Concerns Infection Onset Date Last Indicated Resolved Time MRSA 10/20/2011 10/20/2011 documented as of this encounter Care Teams Usability Strategist Relationship Specialty Start Date End Date Cara Arteaga MD [address] [place] [phone] PCP - General 01/25/13 02/06/14 documented as of this encounter
--- OUTSIDE RECORDS SUMMARY | 2024-07-15 01:32 | XMS_ITS | Encounter Summary ---
Author Organization [facility] Address [address] [place] [address] Care Team Providers Care Client Relations Associate Name Role Phone None, Provider Primary Care Provider Unavailabl e Encounter Details Date Type Department Care Team (Late st Contact Info) Description 06/13/2014 Results Only [facility] OBGYN Services - [address] [address] Rehan Abarca MD [address] [place] [address] [place] [address] Social History Tobacco Use Types Packs/Day Years [...] Info) Description 12/29/2024 10:20 EST Office Visit [facility] Rheumatology & Immunology - [address] [address] Micaela Hoff MD [address] [place] [address], [address] [place] [phone] documented as of this encounter Procedures Procedure Name Priority Date/Time Associated Diagnosis Comments FIRST INTEGRATED SCREEN Routine 06/13/2014 15:25 EDT documented in this encounter Results * FIRST INTEGRATED SCREEN (06/13/2014 15:25 EDT) First Integrated Screen to [facility] Sample sent to [facility] 06/13/2014 15:2 5 EDT 06/13/2014 16:17 EDT Rehan Abarca MD CHEMISTRY & BLOOD [place] S ORDERABLES Performing Organization Address City/State/[facility] Co de Phone Number [facility] [address] [place] [address] documented in this encounter Visit Diagnoses Not on filedocumented in this encounter Additional Health Concerns Infection Onset Date Last Indicated Resolved Time MRSA 10/20/2011 10/20/2011 documented as of this encounter Care Teams Client Relations Associate Relationship Specialty Start Date End Date None, Provider PCP - General 06/09/14 03/01/15 documented as of this encounter
--- OUTSIDE RECORDS SUMMARY | 2024-07-15 01:32 | XMS_ITS | Encounter Summary ---
Author Organization [facility] Address [address] [place] [address] Care Team Providers Care Telemarketing Representative Name Role Phone None, Provider Primary Care Provider Unavailabl e Reason for Referral * IMPLEMENTATION SERVICES ANALYST (STAT) - Closed Specialty Diagnoses / Procedures [facility]erred To Contact Diagnoses with history of pre-term labor Procedures CUSTODIAL TRANSVAGINAL Soledad Crawley RN Referral ID Status Reason Start Date Expiration Date Visits Re quested Visits Authorized [id number] Closed 06/29/2014 1 1 Reason for Visit * Reason Onset Date Comments Routine Visit 06/29/2014 Encounter Details Date Type Department Care Team (Late Contact Info) Description 06/29/2014 Orders Only [facility] Obstetrics & Midwifery [address] [address] Soledad Crawley RN with history [...] [facility] Rheumatology & Immunology - [address] [phone] Micaela Hoff MD [address] [place] [address], [address] [place] [phone] documented as of this encounter Procedures Procedure Name Priority Date/Time Associated Diagnosis Comments CUSTODIAL TRANSVAGINAL Routine 06/29/2014 16:4 1 EDT with history of pre-term labor documented in this encounter Results * CUSTODIAL TRANSVAGINAL (06/29/2014 16:41 EDT) Anatomical Region Laterality [...] of Ultrasound Findings: Transvaginal US. U/S machine: Bio[employer] e8. U/S view: good. Maternal Structures: Cervix: normal. Finding: mucous seen within. No funneling. Cervical length: 27 mm Cervical length with fundal pressure: 22 mm. Cul de Sac / Pouch of Bairon: trace of free fluid visible. Report Summary: Impression: [id number] Transvaginal obstetrical scan A transvaginal scan was [...] of Ultrasound Findings: Transvaginal US. U/S machine: [employer] e8. U/S view: good. Maternal Structures: Cervix: normal. Finding: mucous seen within. No funneling. Cervical length: 27 mm Cervical length with fundal pressure: 22 mm. Cul de Sac / Pouch of Bairon: trace of free fluid visible. Report Summary: Impression: [id number] Transvaginal obstetrical scan A transvaginal scan was [...] of Ultrasound Findings: Transvaginal US. U/S machine: [employer] e8. U/S view: good. Maternal Structures: Cervix: normal. Finding: mucous seen within. No funneling. Cervical length: 27 mm Cervical length with fundal pressure: 22 mm. Cul de Sac / Pouch of Bairon: trace of free fluid visible. Report Summary: Impression: [id number] Transvaginal obstetrical scan A transvaginal scan was [...] of Ultrasound Findings: Transvaginal US. U/S machine: [employer] e8. U/S view: good. Maternal Structures: Cervix: normal. Finding: mucous seen within. No funneling. Cervical length: 27 mm Cervical length with fundal pressure: 22 mm. Cul de Sac / Pouch of Bairon: trace of free fluid visible. Report Summary: Impression: [id number] Transvaginal obstetrical scan A transvaginal scan was [...] Ultrasound Findings: Transvaginal US. U/S machine: FRIDA BondandDenitaylor e8. U/S view: good. Maternal Structures: Cervix: normal. Finding: mucous seen within. No funneling. Cervical length: 27 mm Cervical length with fundal pressure: 22 mm. Cul de Sac / Pouch of Bairon: trace of free fluid visible. Report Summary: Impression: [id number] Transvaginal obstetrical scan A transvaginal scan was [...] of Ultrasound Findings: Transvaginal US. U/S machine: [employer] e8. U/S view: good. Maternal Structures: Cervix: normal. Finding: mucous seen within. No funneling. Cervical length: 27 mm Cervical length with fundal pressure: 22 mm. Cul de Sac / Pouch of Bairon: trace of free fluid visible. Report Summary: Impression: [id number] Transvaginal obstetrical scan A transvaginal scan was [...] documented as of this encounter Care Teams Telemarketing Representative Relationship Specialty Start Date End Date None, Provider PCP - General 06/09/14 03/01/15 documented as of this encounter
--- OUTSIDE RECORDS SUMMARY | 2024-07-15 01:32 | XMS_ITS | Encounter Summary ---
Author Organization [facility] Address [address] [place] [address] Care Team Providers Care Protection Agent Name Role Phone None, Provider Primary Care Provider Unavailabl e Reason for Visit * Reason Onset Date Comments Vaginal Discharge 06/29/2014 Encounter Details Date Type Department Care Team (Late st Contact Info) Description 06/29/2014 Telephone [facility] Obstetrics & Midwifery - [facility] [address] [place], [place] [phone] Soledad Crawley RN Vaginal Discharge Social History [...] Encounter - Soledad Crawley RN - 06/29/2014 1646 EDT Call from [place] with reports of [...] asking if she can be seen in [place] instead, advised she reach out to office to arrange this or be seen in local ED. At this point, patient states she is beginning to leak watery discharge and tearfully states This is what happened last time. Strongly advised she be seen here in the office for transvaginal ultrasound or seek care locally in [place]. Teri states she will try and make appointment and then patient hung up telephone. US booked for 16:15pm today. documented in this encounter Plan of Treatment Upcoming Encounters Date Type Department Care Team (Late st Contact Info) Description 12/29/2024 10:20 EST Office Visit [facility] Rheumatology & Immunology - [address] [address] Micaela Hoff MD [address] [place] [address], [address] [place] [phone] documented as of this encounter Visit Diagnoses Not on filedocumented in this encounter Additional Health Concerns Infection Onset Date Last Indicated Resolved Time MRSA 10/20/2011 10/20/2011 documented as of this encounter Care Teams Protection Agent Relationship Specialty Start Date End Date None, Provider PCP - General 06/09/14 03/01/15 documented as of this encounter
--- OUTSIDE RECORDS SUMMARY | 2024-07-15 01:32 | XMS_ITS | Encounter Summary ---
Author Organization [facility] Address [address] [place] [address] Care Team Providers Care Dry Color Mixer Name Role Phone Conor Angel MD Primary Care Provider [phone] Reason for Visit * Reason Onset Date Comments Abdominal Cramping 02/10/2014 Encounter Details Date Type Department Care Team (Late st Contact Info) Description 02/10/2014 Telephone [facility] OBGYN Services - [facility] [address] [place] [address] Aura Bui, RN [address] [place] [address] Abdominal Cramping Social History Tobacco Use Types [...] Visit [facility] Rheumatology & Immunology - [facility] [address] [place], [place] [phone] Micaela Hoff MD 111 [facility], [address] [place] [address] documented as of this encounter Results * HEMAGRAM (02/10/2014 12:09 EDT) Pathologist [facility] WBC 7.52 4.0 - 12.4 K/cmm [facility] [...] PF4 OR DERABLES [facility] [address] [place] [address] * (ABNORMAL) HCG FOR (02/10/2014 12:09 EDT) Pathologist [facility] Quant Beta HCG, Preg 6(H) <5 mIU/ml [facility] Comment: Reference Range: Negative = <5 Indeterminate = 5-25 recommend repeat in 48 hours. Positive = >25 Blood specimen (specimen) 02/10/2014 12:09 EDT 02/10/2014 12:18 EDT Sarah Rogers MD CHEMISTRY & BLOOD G ORDERABLES [facility] [address] [place] [address] documented in this encounter Visit Diagnoses Diagnosis with other poor obstetric history(V23.49)- Primary with other poor obstetric history documented in this encounter Additional Health Concerns Infection Onset Date Last Indicated Resolved Time MRSA 10/20/2011 10/20/2011 documented as of this encounter Care Teams Dry Color Mixer Relationship Specialty Start Date End Date Conor Angel MD [address] [place] [address] PCP - General 02/07/14 06/08/14 documented as of this encounter
--- OUTSIDE RECORDS SUMMARY | 2024-07-15 01:32 | XMS_ITS | Encounter Summary ---
Author Organization [facility] Address [address] [place] [address] Care Team Providers Care Launch Steward Name Role Phone None, Provider Primary Care Provider Unavailabl e Reason for Visit * Reason Onset Date Comments Vaginal Bleeding 06/16/2014 Encounter Details Date Type Department Care Team (Late st Contact Info) Description 06/16/2014 Telephone [facility] Obstetrics & Midwifery - [facility] [address] [place], [place] [phone] Chrissie Lai RN Vaginal Bleeding Social History [...] Telephone Encounter - Chrissie Lai - 06/16/2014 7675 EDT Pt called to report she had brown discharge this morning in the shower. States she has had crampingoff and on the past few days. Denies bright red bleeding or clots. Reports intercourse two days ago. Cramping is decreased with rest. Reassured patient brown discharge is old bleeding. Instructed patient to rest today. Instructed patient to abstain from intercourse until next [facility] appointment. Reviewed when to call , bright red bleeding, cramping that continues, clots, vaginal pressure. Pt verbalized understanding. Reports she will be seeing OB in [place] soon to begin shared care. documented in this encounter Plan of Treatment Upcoming Encounters Date Type Department Care Team (Late st Contact Info) Description 12/29/2024 10:20 EST Office Visit [facility] Rheumatology & Immunology - [address] [phone] Micaela Hoff MD [address] [place] [address], [address] [place] [address] documented as of this encounter Visit Diagnoses Not on filedocumented in this encounter Additional Health Concerns Infection Onset Date Last Indicated Resolved Time MRSA 10/20/2011 10/20/2011 documented as of this encounter Care Teams Launch Steward Relationship Specialty Start Date End Date None, Provider PCP - General 06/09/14 03/01/15 documented as of this encounter
--- OUTSIDE RECORDS SUMMARY | 2024-07-15 01:32 | XMS_ITS | Encounter Summary ---
Author Organization [facility] Address [address] [place] [address] Care Team Providers Care Auto Clutch Rebuilder Name Role Phone Conor Angel MD Primary Care Provider [phone] Reason for Visit * Reason Comments Pelvic Pain RLQ pain, spotting 4 +6 EGA by LMP. Encounter Details Date Type Department Care Team (Late st Contact Info) Description 02/10/2014 15:30 EDT Office Visit [facility] - [address] [phone] Sarah Rogers MD [address] [place] [address], [address] [place] [address] of unknown anatomic location (Primary [...] [facility] Rheumatology & Immunology - [address] [address] Micaela Hoff MD [address] [place] [address], [address] [place] [phone] documented as of this encounter Visit Diagnoses Diagnosis of unknown anatomic location- Primary state, incidental Unspecified disorder of menstruation and other abnormal bleeding from female genital tract documented in this encounter Additional Health Concerns Infection Onset Date Last Indicated Resolved Time MRSA 10/20/2011 10/20/2011 documented as of this encounter Care Teams Auto Clutch Rebuilder Relationship Specialty Start Date End Date Conor Angel MD [address] [place] [address] PCP - General 02/07/14 06/08/14 documented as of this encounter
--- OUTSIDE RECORDS SUMMARY | 2024-07-15 01:32 | XMS_ITS | Encounter Summary ---
Author Organization [facility] Address [address] [place] [address] Care Team Providers Care Social Secretary Name Role Phone Conor Angel MD Primary Care Provider Reason for Visit * Reason Onset Date Comments 04/17/2014 Encounter Details Date Type Department Care Team (Late st Contact Info) Description 04/17/2014 Telephone [facility] OBGYN Services - [facility] [address] [place] [address] Brittani Black, RN Social History Tobacco Use [...] .Initial Appt Screening Form Best Contact Number: [phone] [facility] Provider: BRITTANY/ LMP/Pt estimate gestational age: LMP- 03/17/2014 Regular cycles + home test 6/14/14 G/P: P: 1021 HEIGHT: 67 WEIGHT AT LMP: 160 lb Blood type (pt provided): A Positive Current medications (prescribed and not prescribed): 88 mcg synthroid, 40 mg omeprazole, PNV- will send to pharmacy- [facility] Are you a smoker?: [...] [facility] Immun[facility] - [address] [address] Micaela Hoff MD [address] [facility], [address] [place] [address] documented as of this encounter Visit Diagnoses Not on filedocumented in this encounter Additional Health Concerns Infection Onset Date Last Indicated Resolved Time MRSA 10/20/2011 10/20/2011 documented as of this encounter Care Teams Social Secretary Relationship Specialty Start Date End Date Conor Angel MD [address] [place] [address] PCP - General 02/07/14 06/08/14 documented as of this encounter
--- OUTSIDE RECORDS SUMMARY | 2024-07-15 01:32 | XMS_ITS | Encounter Summary ---
Author Organization [facility] Address [address] [place] [address] Care Team Providers Care Tank Stave Assembler Name Role Phone None, Provider Primary Care Provider Unavailabl e Encounter Details Date Type Department Care Team (Late st Contact Info) Description 06/13/2014 Phlebotomy Only [address] [address] Concrete Crusher Loader Operator, Outpatient Hypothyroidism Social History Tobacco Use Types [...] Office Visit [facility] Rheumatology & Immunology [address] [address] Micaela Hoff MD [address] [facility], [address] [place] [address] documented as of this encounter [...] ORDERABLES Performing Organization Address [facility] de Phone Number [facility] [address] [place] [address] * TSH (06/13/2014 15:23 EDT) TSH 1.01 0.35 - 5.00 uIU/ml [facility] Blood specimen (specimen) 06/13/2014 15:23 EDT 06/13/2014 16:22 EDT Rehan Abarca MD CHEMISTRY & BLOOD GA S ORDERABLES Performing Organization Address [facility] de Phone Number [facility] [address] [place] [address] documented in this encounter Visit Diagnoses Diagnosis Hypothyroidism Unspecified hypothyroidism documented in this encounter Additional Health Concerns Infection Onset Date Last Indicated Resolved Time MRSA 10/20/2011 10/20/2011 documented as of this encounter Care Teams Tank Stave Assembler Relationship Specialty Start Date End Date None, Provider PCP - General 06/09/14 03/01/15 documented as of this encounter
--- OUTSIDE RECORDS SUMMARY | 2024-07-15 01:32 | XMS_ITS | Encounter Summary ---
Author Organization [facility] Address [address] [place] [address] Care Team Providers Care Geochemical Manager Name Role Phone Ladonna Maurer Primary Care Provider Reason for Visit * Reason Onset Date Comments Results 12/30/2012 Thyroid Problem 12/30/2012 Encounter Details Date Type Department Care Team (Late st Contact Info) Description 12/30/2012 Telephone [facility] Endocrinology - [facility] [address] [place] [address] Drew Grijalva MD [address] [facility] [address] [place] [address] Results; Thyroid Problem Social History [...] end of December with maybe a referral [facility]. * Telephone Encounter - Madhuri Posada - 12/30/2012 1139 EST Patient really needs to speak to talk to the nurse she really isnt feeling well at all, she is having pain in her neck now hurts to move, also feels swollen. * Telephone Encounter - Inge Johnson - 12/30/2012 0887 EST Pt asking for lab results from her November visit, also since yesterday she has notice her thyroid feels enlarged and sore, and stating is more shaky than usual documented in this encounter Plan of Treatment Upcoming Encounters Date Type Department Care Team (Late st Contact Info) Description 12/29/2024 10:20 EST Office Visit [facility] Rheumatology & Immunology - [address] [address] Micaela Hoff MD [address] [place] [address], [address] [place] [address] documented as of this encounter Visit Diagnoses Not on filedocumented in this encounter Additional Health Concerns Infection Onset Date Last Indicated Resolved Time MRSA 10/20/2011 10/20/2011 documented as of this encounter Care Teams Geochemical Manager Relationship Specialty Start Date End Date Garrigan, Ladonna, PA [address] [place] [address] PCP - General 05/12/12 01/24/13 documented as of this encounter
--- OUTSIDE RECORDS SUMMARY | 2024-07-15 01:32 | XMS_ITS | Encounter Summary ---
Author Organization [facility] Address [address] [place] [address] Care Team Providers Care Adhesive Sprayer Name Role Phone Conor Angel MD Primary Care Provider [phone] None, Provider Primary Care Provider Unavailabl e Reason for Referral * ADMISSIONS ASSISTANT (Routine) - Closed Specialty Diagnoses / Procedures Referred By Ehsan patel Referred To Contact Diagnoses Supervision of other high-risk (V23.89) Procedures RESIDENTIAL INTEGRATED SCREEN Shanique Howell MD [address] [facility], [address] [place] [address] Referral ID Status Reason Start Date Expiration Date Visits Re quested Visits Authorized [id number] Closed 05/11/2014 1 1 Reason for Visit * Reason Comments Advice Only * Consult (Routine) - Specialty Report Received Specialty Diagnoses / Procedures Referred By Ehsan t Referred To Contact Obstetrics Diagnoses History of loss in prior , currently Duyen Haro RN [facility] Ep4 Ob/Mfm [address] [place] [address] Referral ID Status Reason Start Date Expiration Date Visits Requested Visits Authorized [id number] Specialty Report Received Specialty Services Required 04/26/2014 1 1 Encounter Details Date Type Department Care Team ([facility] st Contact Info) Description 05/11/2014 15:00 EDT Initial consult [facility] Obstetrics & Midwifery - [address] [address] Shanique Howell MD [address] [place] [address], [address] [place] [address] Supervision of other high-risk (V23.89) [...] No known drug allergies Family History: None. 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 HISTORY: In 2002, Ms Smith had a [...] Description 12/29/2024 10:20 EST Office Visit [facility] Rheumatology & Immunology - [address] [address] Micaela Hoff MD [address] [place] [address], [address] 5 [place] [address] documented as of this encounter Procedures Procedure Name Priority Date/Time Associated Diagnosis Comments RESIDENTIAL INTEGRATED SCREEN Routine 06/13/2014 14:17 EDT Supervision of other high-risk (V23.89) documented in this encounter Results * RESIDENTIAL INTEGRATED SCREEN (06/13/2014 14:17 EDT) Anatomical Region [...] of Ultrasound Findings: Transabdominal US. U/S machine: Solicore e8. U/S view: good. Report Summary: Impression: NOTE: This study was ordered as an NT ONLY so maternal and anatomy assessments were not performed. 53308 Nuchal translucency measurement This is a sanford gestation. Nuchal translucency is 2.6 mm. Omphalocele is not present. To complete the integrated screen, second trimester serum must be drawn and sent to [employer], preferably at 15-16 weeks'. Recommendations: Follow-up as [...] of Ultrasound Findings: Transabdominal US. U/S machine: S[employer]ore e8. U/S view: good. Report Summary: Impression: NOTE: This study was ordered as an NT ONLY so maternal and anatomy assessments were not performed. 63392 Nuchal translucency measurement This is a sanford gestation. Nuchal translucency is 2.6 mm. Omphalocele is not present. To complete the integrated screen, second trimester serum must be drawn and sent to [employer], preferably at 15-16 weeks'. Recommendations: Follow-up as clinically indicated. Growth Overview: Date GA BPD [mm] HC [mm] AC [mm] FL [mm] HUM [mm] EFW GP 05/11/2014 7 + 6 ... ... ... ... ... ... ... 06/13/2014 12 + 4 ... ... ... ... ... ... ... Shanique Howell MD [facility] RESIDENTIAL OR DERABLES documented in this encounter Visit Diagnoses Diagnosis Supervision of other high-risk (V23.89)- Primary Supervision of other high-risk documented in this encounter Additional Health Concerns Infection Onset Date Last Indicated Resolved Time MRSA 10/20/2011 10/20/2011 documented as of this encounter Care Teams Adhesive Sprayer Relationship Specialty Start Date End Date Conor Angel MD [address] [place] [address] PCP - General 02/07/14 06/08/14 None, Provider PCP - General 06/09/14 03/01/15 documented as of this encounter
--- OUTSIDE RECORDS SUMMARY | 2024-07-15 01:32 | XMS_ITS | Encounter Summary ---
Author Organization [facility] Address [address] [place] [address] Care Team Providers Care Cooker Soda Name Role Phone None, Provider Primary Care Provider Unavailabl e Reason for Referral * (Routine) - Closed Specialty Diagnoses / Procedures Referred By Ehsan patel Referred To Contact Liya Stone MD [address] [place] [address] Referral ID Status Reason Start Date Expiration Date V isits Requested Visits Authorized [id number] Closed Specialty Services Required 07/11/2014 1 1 Encounter Details Date Type Department Care Team (Late st Contact Info) Description 07/11/2014 11:10 EDT - 07/11/2014 14:15 EDT Hospital Encounter [facility] [address] [place], [place] [id number] Robb Nam MD [address] [facility], [address] 4 [place] [address] Discharge Disposition: Home or Self [...] Date ??? Upper gastrointestinal endoscopy 09/03/2010 ??? [place] tooth extraction ??? 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 Do not cohort at this time. documented in this encounter Plan of Treatment Upcoming Encounters Date Type Department Care Team (Late st Contact Info) Description 12/29/2024 10:20 EST Office Visit [facility] Rheumatology & Immunology - [address] [address] Micaela Hoff MD [address] [place] [address], [address] 5 [place] [address] Scheduled Referrals Name Type Priority [...] documented as of this encounter Care Teams Cooker Soda Relationship Specialty Start Date End Date None, Provider PCP - General 06/09/14 03/01/15 documented as of this encounter
--- OUTSIDE RECORDS SUMMARY | 2024-07-15 01:32 | XMS_ITS | Encounter Summary ---
Author Organization [facility] Address [address] [place] [address] Care Team Providers Care General Inspector Name Role Phone Conor Angel MD Primary Care Provider [phone] Encounter Details Date Type Department Care Team (Late st Contact Info) Description 02/10/2014 Orders Only [facility] OBGYN Services - [address] [phone] Aura Bui RN [address] [place] [address] Miscarriage (Primary Dx) Social History Tobacco Use [...] [facility] - [address] [address] Micaela Hoff MD [address] [place] [address], [address] [place] [phone] documented as of this encounter Visit Diagnoses Diagnosis Miscarriage- Primary Unspecified spontaneous without mention of complication documented in this encounter Additional Health Concerns Infection Onset Date Last Indicated Resolved Time MRSA 10/20/2011 10/20/2011 documented as of this encounter Care Teams General Inspector Relationship Specialty Start Date End Date Conor Angel MD [address] [address] PCP - General 02/07/14 06/08/14 documented as of this encounter
--- OUTSIDE RECORDS SUMMARY | 2024-07-15 01:33 | XMS_ITS | Encounter Summary ---
Author Organization [facility] Address [address] [place] [address] Care Team Providers Care Paintings Conservator Name Role Phone Yair Dow MD Primary Care Provider [phone] Reason for Visit * Reason Comments Hypothyroidism New Patient Visit former Dr. Arbams pt Encounter Details Date Type Department Care Team (Latest Contact Info) Description 11/18/2011 8:[address] [facility] Endocrinology - [facility] [address] [place] [address] Drew Grijalva MD [address] [facility] [address] [place] [address] Unspecified hypothyroidism; Chronic lymphocytic thyroiditis [...] and hypothyroidism. 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 She admitted to eating poorly, spending a [...] Value Date FREET4 1.5 09/15/2011 Utilizing a [employer] System, a biplanar B-mode ultrasound was performed [...] documented in this encounter Procedure Notes * Hooker Up, Daniela - 11/18/2011 1428 ESTAssociated Order(s): RADIOLOGY - SCANNED documented in this encounter Plan of Treatment Upcoming Encounters Date Type Department Care Team (Late Contact Info) Description 12/29/2024 10:[address] [facility] Rheumatology & Immunology - [facility] [address] [place] [address] Micaela Hoff MD 111 [facility], [address] [place] [address] documented as of this encounter Procedures Procedure Name Priority Date/Time Associated Diagnosis Comments RADIOLOGY - SCANNED 11/18/2011 1 4:28 EST ENDOCRINE CLINIC US THYROID Routine 11/18/2011 Unspecified hypothyroidism Chronic lymphocytic thyroiditis documented in this encounter Results * RADIOLOGY - SCANNED (11/18/2011 14:28 EST) Anatomical Region Laterality Modality Other 11/18/2011 14:2 8 EST Narrative Transcriptions Hooker Up, Scan - 11/18/2011 14:28 EST Scan Hooker Up IMG OTHER IMAGING OR DERABLES * T4 FREE (11/18/2011 9:42 EST) Free T4 1.8 0.8 - 1.8 ng/dL [facility] Blood specimen (specimen) 11/18/2011 9:42 EST 11/18/2011 11:54 EST Drew Grijalva MD CHEMISTRY & BLOOD GAS ORDERABLES [facility] [address] [place] [address] * (ABNORMAL) TSH (11/18/2011 9:42 EST) TSH 0.16(L) 0.35 - 5.00 uIU/ml [facility] Blood specimen (specimen) 11/18/2011 9:42 EST 11/18/2011 11:54 EST Drew Grijalva MD CHEMISTRY & BLOOD GAS ORDERABLES Performing Organization Address [facility] de Phone Number [place] [address] * (ABNORMAL) THYROPEROXIDASE ANTIBODY (11/18/2011 9:42 EST) Thyroperoxidase Ab 296(H) <61 U/mL F [facility] Blood specimen (specimen) 11/18/2011 9:42 EST 11/18/2011 11:54 EST Drew Grijalva MD CHEMISTRY & BLOOD GAS ORDERABLES Performing Organization Address [facility] Phone Number [place] [address] * ANTI THYROGLOBULIN (11/18/2011 9:42 EST) Thyroglobulin Ab 46 <61 U/mL [facility] Blood specimen (specimen) 11/18/2011 9:42 EST 11/18/2011 11:54 EST Drew Grijalva MD CHEMISTRY & BLOOD GAS ORDERABLES Performing Organization Address [facility] Phone Number [place] [address] * ENDOCRINE CLINIC US THYROID (11/18/2011) Anatomical Region Laterality Modality Other Impressions 11/18/2011 Utilizing a [employer] System, a biplanar B-mode ultrasound was performed [...] documented as of this encounter Care Teams Paintings Conservator Relationship Specialty Start Date End Date Yair Dow MD [address] [place] [phone] PCP - General 06/03/11 03/08/12 documented as of this encounter
--- OUTSIDE RECORDS SUMMARY | 2024-07-15 01:33 | XMS_ITS | Encounter Summary ---
Author Organization [facility] Address [address] [place] [address] Care Team Providers Care Candy Rolling Machine Operator Name Role Phone Yair Dow MD Primary Care Provider [phone] Reason for Visit * Reason Comments Abscess I have an infected abscess on my leg onset Thursday night. extensive tattoo done on left leg 10 hour in last 4 weeks. Encounter Details Date Type Department Care Team (Late st Contact Info) Description 10/18/2011 18:48 EST - 10/18/2011 21:02 EST Emergency [facility] Emergency Department - Main [place] [address] [place] [address] Robin Randhawa MD [address] [facility], [address] 1 [place] [phone] Emergency, MD Fede Abscess of left leg [...] Everywhere. * SKIN ABSCESS: AFTER YOUR VISIT ([place]ILI) documented in this encounter Medications at Time [...] Code Departure Means Destination Home or Self Fdc documented in this encounter ED Notes * Rosita Fletchre - 10/18/20112100 EST Wound dressed and extra [...] Stroke Mother ??? Heart Disease Father 50 [place] ??? Diabetes Father ??? Cancer Maternal Aunt thyroid ??? Heart Disease Maternal Grandmother [place] ??? Diabetes Maternal Grandmother ??? Cancer Maternal [...] to verify the correct patient, procedure, equipment, ict support and test engineers and site/side marked as required. Type: abscess [...] encounter Miscellaneous Notes * Scanned Note-Null - Pattern Cleaner, Scan - 10/23/2011 0654 EST documented in this encounter Plan of Treatment Upcoming Encounters Date Type Department Care Team (Late st Contact Info) Description 12/29/2024 10:20 EST Office Visit [facility] Rheumatology [place] [address] Micaela Hoff MD 111 [facility], [address] [place] [address] documented as of this encounter [...] Stroke Mother ? Heart Disease Father 50 ??[place] ? ? Diabetes Father ? Cancer Maternal Aunt ?thyroid ? ? Heart Disease Maternal Grandmother ?[place] ? ? Diabetes Maternal Grandmother ? Cancer [...] to verify the correct patient, procedure, equipment, ict support and test engineers and site/side marked as required. Type: abscess [...] Mother ? ? Heart Disease Father 50 [place] ? ? Diabetes Father ? ? Cancer Maternal Aunt thyroid ? ? Heart Disease Maternal Grandmother [place] ? ? Diabetes Maternal Grandmother ? ? [...] called to verifythe correct patient, procedure, equipment, ict support and test engineers and site/sidemarked as required. Type: abscess Body [...] - GENERAL ORDERABLES [facility] [address] [place] [address] documented in this encounter Visit Diagnoses Diagnosis [...] STAT 2100 (Given - Provid er: Rosita Brenham) lorazepam (ATIVAN) tablet 1 mg (COMPLETED) 1 mg, sublingual, NOW X1, 1 dose, On 10/18/11 at 2015, STAT 2008 (Given - Provid er: [facility] [place]) documented in this encounter Care Teams Candy Rolling Machine Operator Relationship Specialty Start Date End Date Yair Dow MD [address] [place] [address] PCP - General 06/03/11 03/08/12 documented as of this encounter
--- OUTSIDE RECORDS SUMMARY | 2024-07-15 01:33 | XMS_ITS | Encounter Summary ---
Author Organization [facility] Address [address] [place] [address] Care Team Providers Care Petroleum Refinery Worker Name Role Phone Yair Dow MD Primary Care Provider [phone] Encounter Details Date Type Department Care Team (Latest Contact Info) Description 02/03/2012 12:32 EDT - 02/03/2012 23:[address] [facility] Endoscopy Outpatient [address] [place] [address] Kenton Johnston MD Discharge Disposition: Home or [...] Code Departure Means Destination Home or Self Detention documented in this encounter H&P Notes * Kenton Johnston MD - 02/03/2012 1346 EDT Sedation for Procedure History & Physical Date: 02/03/2012 Time: 13:46 Location: [address] Planned Procedure: Gastroscopy Chief Complaint/Indications for Procedure: Abdominal pain. History Previous Complication with Sedation and/or Anesthesia? No Allergies: No Known Allergies Current Medications: (Not in a hospital admission) Past Medical History: Past Medical History Diagnosis Date ??? Obese ??? History of tobacco use ??? Thyroid disease Social History: Past Surgical History Procedure Date ??? Upper gastrointestinal endoscopy 09/03/2010 ??? [place] tooth extraction History Substance Use Topics ??? Smoking status: Current Everyday Smoker -- 0.5 packs/day ??? Smokeless tobacco: Never Used ??? Alcohol Use: 10.0 oz/week 2 Glasses of wine per week rare Family History: Family History Problem Relation Age of Onset ??? High Blood Pressure Mother brain aneurysm ??? Stroke Mother ??? Heart Disease Father 50 [place] ??? Diabetes Father ??? Thyroid Cancer/Nodule Maternal Aunt Cancer ??? Heart Disease Maternal Grandmother [place] ??? Diabetes Maternal Grandmother ??? Cancer Maternal [...] documented in this encounter Procedure Notes * APPEALS NURSE, SCAN 2 - 02/04/2012 0802 EDTAssociated Order(s): PROCEDURE REPORTS - SCANNED documented in this encounter Miscellaneous Notes * Scanned Note-Null - APPEALS NURSE, SCAN 2 - 02/04/2012 1012 EDT * Scanned Note-Null - APPEALS NURSE, SCAN 2 - 02/04/2012 1012 EDT documented in this encounter Plan of Treatment Upcoming Encounters Date Type Department Care Team (Late st Contact Info) Description 12/29/2024 10:[address] [facility] Rheumatology & Immunology - [address] [phone] Micaela Hoff MD [address] [place] [address], [address] [place] [address] documented as of this encounter Procedures Procedure Name Priority Date/Time Associated Diagnosis Comments PROCEDURE REPORTS - SCANNED 02/04/2012 8:02 EDT TISSUE TRANSGLUTAMINASE ANTIBODY, IGA Routine 02/03/2012 13:40 EDT documented in this encounter Results * PROCEDURE REPORTS - SCANNED (02/04/2012 8:02 EDT) 02/04/2012 8:02 EDT Narrative Transcriptions APPEALS NURSE, SCAN 2 - 02/04/2012 8:02 EDT Scan 2 Warp Tension Tester PROCEDURE/MINOR GERI GICAL ORDERABLES * TTG AB, IGA, S (02/03/2012 13:40 EDT) tTG Ab, IgA, S <1.2 <4.0 (Negative) U/mL [facility] Comment: Performed by: [employer], [address], [place] [address], Rotary Pump Operator: Estephania Guallpa, Ph.D. Blood specimen (specimen) 02/03/2012 13:40 EDT 02/03/2012 14:11 EDT Qasim Graves MD IMMUNOLOGY AND SER OLOGY ORDERABLES Performing Organization Address City/State/[facility] Co de Phone Number [facility] [address] [place] [address] documented in this encounter Visit Diagnoses Not [...] documented as of this encounter Care Teams Petroleum Refinery Worker Relationship Specialty Start Date End Date Yair Dow MD [address] [place] [phone] PCP - General 06/03/11 03/08/12 documented as of this encounter
--- OUTSIDE RECORDS SUMMARY | 2024-07-15 01:33 | XMS_ITS | Encounter Summary ---
Author Organization [facility] Address [address] [place] [address] Care Team Providers Care Bark Tanner Name Role Phone Yair Dow MD Primary Care Provider [phone] Reason for Visit * Reason Comments Hypothyroidism Follow-up Encounter Details Date Type Department Care Team (Latest Contact Info) Description 06/12/2011 16:00 EDT Office Visit [facility] Endocrinology - [address] [phone] Tawny Abrams MD [address] [place] [address] Unspecified hypothyroidism (Primary Dx) Social History [...] encounter Patient Instructions * Patient Instructions* Tawny bArams - 06/12/2011 16:33 EDT Stop thyroid for [...] january Smoking again moved to [place] Maurer [address] [address] Dear Ms Maurer: I had the pleasure of seeing your patient, Teri Haro, in follow up in the endocrine clinic todayfor goiter and hypothyroidism. 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35 - 5.00 uIU/ml [facility] Blood specimen (specimen) 09/15/2011 13:55 EST 09/15/2011 15:18 EST Tawny Abrams MD CHEMISTRY & BLOOD GA S ORDERABLES Performing Organization Address [facility] Phone Number [facility] [address] [address] documented in this encounter Visit Diagnoses Diagnosis Unspecified hypothyroidism- Primary documented in this encounter Discontinued Medications Medication Sig Discontinue Reason Start Date End Da te levothyroxine (SYNTHROID) 25 mcg tablet Take 100 mcg by mouth daily. 06/12/2011 documented as of this encounter Care Teams Bark Tanner Relationship Specialty Start Date End Date Yiar Dow MD [address] [place] [phone] PCP - General 06/03/11 03/08/12 documented as of this encounter
--- OUTSIDE RECORDS SUMMARY | 2024-07-15 01:33 | XMS_ITS | Encounter Summary ---
Author Organization [facility] Address [address] [place] [address] Care Team Providers Care Cell Cleaner Name Role Phone Ladonna Maurer Primary Care Provider [phone] Reason for Visit * Reason Comments Abdominal [...] 19:30 EDT - 05/11/2011 22:23 EDT Emergency [facility] Emergency Department - [address] [phone] Juan Alberto Farley PA-Jose A 111 [facility], [address] [place] [address] Emergency, MD Fede Chronic generalized [...] ABDOMINAL PAIN IN ADULTS: AFTER YOUR VISIT (DIVEHI) * IRRITABLE BOWEL SYNDROME: AFTER YOUR VISIT (DIVEHI) documented in this encounter Medications at Time [...] or Self Retirement documented in this encounter ED Notes * [...] 2 days from a different part of [place]. She is trying to obtain a primary care physician and states she is waiting for her medical records to [facility]. The history is provided by the patient. [...] Stroke Mother ??? Heart Disease Father 50 [place] ??? Diabetes Father ??? Cancer Maternal Aunt thyroid ??? Heart Disease Maternal Grandmother [place] ??? Diabetes Maternal Grandmother ??? Cancer Maternal [...] Miscellaneous Notes * Scanned Note-Null - Manager Environmental Affairs, Scan - 05/11/2011 0000 EDT documented in this encounter Plan of Treatment Upcoming Encounters Date Type Department Care Team (Late st Contact Info) Description 12/29/2024 10:20 EST Office Visit [facility] Rheumatology & Immunology - [address] [address] Micaela Hoff MD 111 [facility], [address] [place] [phone] documented as of this encounter Visit Diagnoses Diagnosis Chronic generalized abdominal pain Abdominal pain, generalized documented in this encounter Care Teams Cell Cleaner Relationship Specialty Start Date End Date Ladonna Maurer PA [address] [place] [address] PCP - General 05/20/10 06/02/11 documented as of this encounter
--- OUTSIDE RECORDS SUMMARY | 2024-07-15 01:33 | XMS_ITS | Encounter Summary ---
Author Organization [facility] Address [address] [place] [address] Care Team Providers Care Electronic Gaming Device Supervisor Name Role Phone Yair Dow MD Primary Care Provider [phone] Reason for Visit * Reason Onset Date Comments Results 09/30/2011 Encounter Details Date Type Department Care Team (Late st Contact Info) Description 09/30/2011 Telephone [facility] Endocrinology - [address] [phone] Tawny Abrams MD [address] [place] [phone] Results Social History Tobacco Use Types Packs/Day [...] [facility] Rheumatology & Immunology - [facility] [address] [place], [place] [address] Micaela Hoff MD 111 [facility], [address] [place] [address] documented as of this encounter Visit Diagnoses Not on filedocumented in this encounter Care Teams Electronic Gaming Device Supervisor Relationship Specialty Start Date End Date Yair Dow MD [address] [place] [address] PCP - General 06/03/11 03/08/12 documented as of this encounter
--- OUTSIDE RECORDS SUMMARY | 2024-07-15 01:33 | XMS_ITS | Encounter Summary ---
Author Organization [facility] Address [address] [place] [address] Care Team Providers Care Park Attendant Name Role Phone Yair Dow MD Primary Care Provider [phone] Reason for Visit * Reason Comments Fatigue follow up ED Encounter Details Date Type Department Care Team (Late st Contact Info) Description 01/19/2012 16:00 EDT Office Visit [address] [address] Kaylynn Rice MD [address] [address] Abdominal pain; Fatigue; Dry eyes [...] / [facility] Rheumatology & Immunology - [address] [address] Micaela Hoff MD [address] [place] [address], Level 5 [place] [address] Scheduled Orders Name Type Priority [...] [facility] Comment: Performed by: [facility], [address], [place] [address], Rotating Field Assembler: Estephania Guallpa, Ph.D. Blood specimen (specimen) 01/19/2012 16:29 EDT 01/19/2012 19:50 EDT Kaylynn Rice MD IMMUNOLOGY AND SERO LOGY ORDERABLES Performing Organization Address [facility] Co de Phone Number [facility] [address] [place] [address] * ENDOMYSIAL ANTIBODY, SERUM (01/19/2012 16:29 EDT) Endomysial Antibodies Negative Negative [facility] Comment: (Note) Negative in normal Individuals. May be negative in dermatitis herpatiformis or celiac disease patients adhering to a gluten free diet. Laboratory developed test. Performed or Referred by: [facility] Dpt of Lab Med and Path, [address] [place] [address], Lab Dir: Juan Coto III, MD Blood specimen (specimen) 01/19/2012 16:29 EDT 01/19/2012 19:50 EDT Kaylynn Rice MD IMMUNOLOGY AND SERO LOGY ORDERABLES Performing Organization Address City/[facility] Co de Phone Number [facility] [address] [place] [address] * ANCA (01/19/2012 16:29 EDT) ANCA Neg Neg Dils [facility] Blood specimen (specimen) 01/19/2012 16:29 EDT 01/19/2012 19:50 EDT Kaylynn Rice MD IMMUNOLOGY AND SERO LOGY ORDERABLES Performing Organization Address [facility] de Phone Number [facility] [address] [place] [address] * SSA/SSB (01/19/2012 16:29 EDT) SS A/Ro Ab, IgG, S <0.2 <1.0 (Negative) [facility] SS B/La Ab, IgG, S <0.2 <1.0 (Negative) U [facility] Comment: Performed by: [facility], [address], [place] [address], Rotating Field Assembler: Estephania Guallpa, Ph.D. Blood specimen (specimen) 01/19/2012 16:29 EDT 01/19/2012 19:50 EDT Kaylynn Rice MD CHEMISTRY & BLOOD G ORDERABLES Performing Organization Address [facility] de Phone Number [facility] [address] [place] [address] * RHEUMATOID FACTOR (01/19/2012 16:29 EDT) Rheumatoid Factor <20 <20 IU/ml [facility] Blood specimen (specimen) 01/19/2012 16:29 EDT 01/19/2012 19:50 EDT Kaylynn Rice MD CHEMISTRY & BLOOD G ORDERABLES Performing Organization Address [facility] Co de Phone Number [facility] [address] [place] [address] * ANTI NUCLEAR ANTIBODY (01/19/2012 16:29 EDT) Anti Nuclear Ab <40 0 - 40 Dils [facility] Blood specimen (specimen) 01/19/2012 16:29 EDT 01/19/2012 19:50 EDT Kaylynn Rice MD IMMUNOLOGY AND SERO LOGY ORDERABLES Performing Organization Address [facility] Co de Phone Number [facility] [address] [place] [address] * SED. RATE:LAURE (01/19/2012 16:29 EDT) Sed. Rate Adeleren 10 0 - 20 mm/hr [facility] Blood specimen (specimen) 01/19/2012 16:29 EDT 01/19/2012 19:50 EDT Kaylynn Rice MD HEMATOLOGY & PF4 OR DERABLES Performing Organization Address [facility] de Phone Number [facility] [address] [place] [address] documented in this encounter Visit Diagnoses Diagnosis [...] documented as of this encounter Care Teams Park Attendant Relationship Specialty Start Date End Date Yair Dow MD [address] [place] [phone] PCP - General 06/03/11 03/08/12 documented as of this encounter
--- OUTSIDE RECORDS SUMMARY | 2024-07-15 01:33 | XMS_ITS | Encounter Summary ---
Author Organization [facility] Address [address] [place] [address] Care Team Providers Care Blanket Cutter Hand Name Role Phone Yair Dow MD Primary Care Provider [phone] Reason for Visit * Reason Onset Date Comments Medications Refill 10/02/2011 Encounter Details Date Type Department Care Team (Late st Contact Info) Description 10/02/2011 Refill [facility] Endocrinology - [address] [address] Izabel Crawford RN CDE Medications Refill Social [...] Info) Description 12/29/2024 10:20 EST Office Visit [facility] Rheumatology & Immunology - [address] [address] Micaela Hoff MD 111 [facility], [address] [place] [address] documented as of this encounter Visit Diagnoses Not on filedocumented in this encounter Discontinued Medications Medication Sig Discontinue Reason Start Date End Da te levothyroxine (SYNTHROID) 88 mcg tablet Take 1 Tab by mouth daily. Reorder 06/12/2011 10/02/2011 documented as of this encounter Care Teams Blanket Cutter Hand Relationship Specialty Start Date End Date Yair Dow MD [address] [place] [phone] PCP - General 06/03/11 03/08/12 documented as of this encounter
--- OUTSIDE RECORDS SUMMARY | 2024-07-15 01:33 | XMS_ITS | Encounter Summary ---
Author Organization [facility] Address [address] [place] [address] Care Team Providers Care Weekend Anchor Name Role Phone Yair Dow MD Primary Care Provider [phone] Reason for Referral * Consult (Routine/Next Available) - Closed Specialty Diagnoses / Procedures Referred By Contact Referred To Contact Gastroenterology and Hepatology Diagnoses Bloating Abdominal pain Kaylynn Rice MD [address] [address] [facility] [address] [place] [address] Referral ID Status Reason Start Date Expiration Date V isits Requested Visits Authorized [id number] Closed Specialty Services Required 02/10/2012 1 1 [...] Info) Description 02/10/2012 13:30 [place] [address] Kaylynn Rice MD [address] [phone] Abdominal pain; Bloating; Headache; Dizziness; Numbness; Fatigue [...] 68.493 kg (151 lb) BMI 23.65 kg/m2 AnQ464% LMP 12/17/2011 Physical Exam Vitals reviewed. Constitutional: [...] [facility] Rheumatology & Immunology - [address] [id number] Micaela Hoff MD [address] [place] [address], [address] [place] [address] Scheduled Referrals Name Type Priority [...] 01, 2012 11:04:00 PM Signs and Symptoms/Comments: ??784.8-EJMOOGYB-SBY-9-CM 780.4-DIZZINESS AND GKYGPLHIX-EXK-9-CM Worsening fatigue, numbness/weakness, blurry vision, dizziness. ??Rule [...] 01, 2012 11:04:00 PM Signs and Symptoms/Comments: 784.5-SOMWGQNO-UVI-9-CM 780.4-DIZZINESS AND IFJDJYUFK-FXU-1-CM Worsening fatigue, numbness/weakness, blurry vision, dizziness. Rule [...] documented as of this encounter Care Teams Weekend Anchor Relationship Specialty Start Date End Date Yair Dow MD [address] [place] [phone] PCP - General 06/03/11 03/08/12 documented as of this encounter
--- OUTSIDE RECORDS SUMMARY | 2024-07-15 01:33 | XMS_ITS | Encounter Summary ---
Author Organization [facility] Address [address] [place] [address] Care Team Providers Care Coordinate Measuring Equipment Operator Name Role Phone Yair Dow MD Primary Care Provider [phone] Reason for Visit * Reason Comments New [...] Info) Description 07/14/2011 16:00 EDT Office Visit [address] [address] Yair Dow MD [address] [place] [address] [address] Peptic ulcer disease (Primary Dx); [...] to our practice today moving here from [facility]. Her main concern today is fatigue. [...] had an ultrasound but on exam her vice president precision market insights did not think IUD was related. No [...] except - some diffuse myalgias which her vitreo retinal surgeon told her could be related to her [...] Stroke Mother ??? Heart Disease Father 50 [place] ??? Diabetes Father ??? Cancer Maternal Aunt thyroid ??? Heart Disease Maternal Grandmother [place] ??? Diabetes Maternal Grandmother ??? Cancer Maternal [...] pelvic ultrasound 7) f/u 1 month for balloon artist exam and consideration of IUD removal if it seems prudent after above work-up. documented in this encounter Plan of Treatment Upcoming Encounters Date Type Department Care Team (Late st Contact Info) Description 12/29/2024 10:20 EST Office Visit [facility] Rheumatology & Immunology - [facility] [address] [place] [address] Micaela Hoff MD 111 [facility], [address] [place] [phone] documented as of this encounter Results * HEMOGLOBIN A1C (09/15/2011 13:56 EST) Pathologist [facility] Hemoglobin A1C 5.2 % [facility] T[facility] [...] BLOOD GA S ORDERABLES Performing Organization Address City/[facility]/ZIP Co de Phone Number [facility] [address] [address] * VITAMIN D (25,OH) (09/15/2011 13:56 EST) Pathologist [facility] 25OH Vitamin D Tot 35.9 ng/ml [facility] Comment: Reference Range: <10 ng/ml: Deficient 10-30 ng/ml: Insufficient 30-100 ng/ml: Sufficient >100 ng/ml: Toxic Blood specimen (specimen) 09/15/2011 13:56 EST 09/15/2011 15:18 EST Yair Dow MD CHEMISTRY & BLOOD GA S ORDERABLES [facility] [address] [place] [address] * HEMAGRAM AND DIFFERENTIAL (09/15/2011 13:56 EST) Pathologist [facility] WBC 7.37 4.0 - 12.4 K/cmm [...] Dow MD PACKAGES & DNA PROBE ORDERABLES [facility] [address] [place] [address] * TTG AB, IGA, S (09/15/2011 13:56 EST) Pathologist [facility] tTG Ab, IgA, S <1.3 <4.0 U/mL [facility] Comment: (Note) <4 U/mL (Negative) Performed by: [facility], [address], [place] [address], Cleaner Touch Up Worker: Estephania Guallpa, Ph.D. Blood specimen (specimen) 09/15/2011 13:56 EST 09/15/2011 15:18 EST Yair Dow MD IMMUNOLOGY AND FRANCIS WEEMS ORDERABLES [facility] [address] [place] [address] documented in this encounter Visit Diagnoses Diagnosis [...] documented as of this encounter Care Teams Coordinate Measuring Equipment Operator Relationship Specialty Start Date End Date Yair Dow MD [address] [place] [address] PCP - General 06/03/11 03/08/12 documented as of this encounter
--- OUTSIDE RECORDS SUMMARY | 2024-07-15 01:33 | XMS_ITS | Encounter Summary ---
Author Organization [facility] Address [address] [place] [address] Care Team Providers Care Assistant Professor Of Religion Name Role Phone Yair Dow MD Primary Care Provider [phone] Encounter Details Date Type Department Care Team (Late st Contact Info) Description 09/15/2011 13:48 EST - 09/15/2011 23:59 [facility] Hospital Encounter [address] [address] Unknown, Provider, Yair Dow MD [address] [place] [address] DR [facility] [address] [place] [address] Discharge Disposition: Auto Discharge Social History Tobacco [...] buPROPion (WELLBUTRIN SR) 150 mg SR tabletIndications:Toba senior accounting clerk dependence Take 1 Tab by mouth 2 [...] [facility] Rheumatology & Immunology - [address] [phone] Micaela Hoff MD 111 [facility], [address] [place] [phone] documented as of this encounter Visit Diagnoses Not on filedocumented in this encounter Care Teams Assistant Professor Of Religion Relationship Specialty Start Date End Date Yair Dow MD [address] [place] [phone] PCP - General 06/03/11 03/08/12 documented as of this encounter
--- OUTSIDE RECORDS SUMMARY | 2024-07-15 01:33 | XMS_ITS | Encounter Summary ---
Author Organization [facility] Address [address] [place] [address] Care Team Providers Care Combination Presser Name Role Phone Yair Dow MD Primary Care Provider [phone] Reason for Visit * Reason Onset Date Comments Cellulitis 10/14/2011 MRSA INFECTION - SAW DR HERNANDEZ 10/13/11 Encounter Details Date Type Department Care Team (Late st Contact Info) Description 10/14/[address] [address] Yair Dow MD [address] [place] [address] [address] Cellulitis (MRSA INFECTION - SAW [...] [facility] Rheumatology & Immunology - [address] [address] Micaela Hoff MD 111 [facility], [address] [place] [phone] documented as of this encounter Visit Diagnoses Not on filedocumented in this encounter Care Teams Combination Presser Relationship Specialty Start Date End Date Yair Dow MD [address] [place] [phone] PCP - General 06/03/11 03/08/12 documented as of this encounter
--- OUTSIDE RECORDS SUMMARY | 2024-07-15 01:33 | XMS_ITS | Encounter Summary ---
Author Organization [facility] Address [address] [place] [address] Care Team Providers Care Cmm Programmer Name Role Phone Yair Dow MD Primary Care Provider [phone] Encounter Details Date Type Department Care Team (Late st Contact Info) Description 12/03/2011 Results Only [facility] Family [address] [phone] Kaylynn Rice MD [address] [address] Social History Tobacco Use Types [...] [facility] Rheumatology & Immunology - [facility] [address] [place] [address] Micaela Hoff MD 111 [facility] 5 [place] [address] documented as of this encounter [...] ? TERI CROWE ? Accession #: ? [id number] ? : ? 1980 (Age: 31) ??F [...] MD PATHOLOGY ORDERABLE S Performing Organization Address City/State/[facility] Co de Phone Number [facility] [address] [place] [address] documented in this encounter Visit Diagnoses Not on filedocumented in this encounter Additional Health Concerns Infection Onset Date Last Indicated Resolved Time MRSA 10/20/2011 10/20/2011 documented as of this encounter Care Teams Cmm Programmer Relationship Specialty Start Date End Date Yair Dow MD [address] [place] [address] PCP - General 06/03/11 03/08/12 documented as of this encounter
--- OUTSIDE RECORDS SUMMARY | 2024-07-15 01:33 | XMS_ITS | Encounter Summary ---
Author Organization [facility] Address [address] [place] [address] Care Team Providers Care Silver Spray Worker Name Role Phone Yair Dow MD Primary Care Provider [phone] Reason for Visit * Reason Onset Date Comments Other 01/14/2012 Encounter Details Date Type Department Care Team (Late st Contact Info) Description 01/14/[address] [address] Yair Dow MD [address] [place] [address] [address] [place] [address] Other Social History Tobacco Use [...] [facility] Rheumatology & Immunology - [address] [address] Micaela Hoff MD [address] [place] [address], [address] [place] [address] documented as of this encounter Visit Diagnoses Not on filedocumented in this encounter Additional Health Concerns Infection Onset Date Last Indicated Resolved Time MRSA 10/20/2011 10/20/2011 documented as of this encounter Care Teams Silver Spray Worker Relationship Specialty Start Date End Date Yair Dow MD [address] [place] [address] PCP - General 06/03/11 03/08/12 documented as of this encounter
--- OUTSIDE RECORDS SUMMARY | 2024-07-15 01:33 | XMS_ITS | Encounter Summary ---
Author Organization [facility] Address [address] [place] [address] Care Team Providers Care Rn Lvn Name Role Phone Yair Dow MD Primary Care Provider [phone] Encounter Details Date Type Department Care Team (Late st Contact Info) Description 09/15/2011 Phlebotomy Only [address] [address] Family Helper, Outpatient Unspecified hypothyroidism; Abdominal pain; Peptic ulcer [...] Office Visit [facility] Rheumatology & Immunology [address] [phone] Micaela Hoff MD [address] [place] [address], [address] [place] [address] documented [...] BLOOD GA S ORDERABLES Performing Organization Address City/State/[facility] Co de Phone Number [facility] [address] [place] [address] * VITAMIN D (25,OH) (09/15/2011 13:56 EST) 25OH Vitamin D Tot 35.9 ng/ml [facility] Comment: Reference Range: <10 ng/ml: Deficient 10-30 ng/ml: Insufficient 30-100 ng/ml: Sufficient >100 ng/ml: Toxic Blood specimen (specimen) 09/15/2011 13:56 EST 09/15/2011 15:18 EST Yair Dow MD CHEMISTRY & BLOOD GA S ORDERABLES [facility] [address] [place] [address] * HEMAGRAM AND DIFFERENTIAL (09/15/2011 13:56 EST) [...] DNA PROBE ORDERABLES [facility] [address] [place] [address] * TTG AB, IGA, S (09/15/2011 13:56 EST) tTG Ab, IgA, S <1.3 <4.0 U/mL [facility] Comment: (Note) <4 U/mL (Negative) Performed by: [facility], [address], [place] [address], Applications Consultant: Estephania Guallpa, Ph.D. Blood specimen (specimen) 09/15/2011 13:56 EST 09/15/2011 15:18 EST Yair Dow MD IMMUNOLOGY AND SEROL FLORY ORDERABLES Performing Organization Address [facility] Co de Phone Number [facility] [address] [place] [address] * T4 FREE (09/15/2011 13:55 EST) Free T4 1.5 0.8 - 1.8 ng/dL [facility] Blood specimen (specimen) 09/15/2011 13:55 EST 09/15/2011 15:18 EST Tawny Abrams MD CHEMISTRY & BLOOD GA S ORDERABLES Performing Organization Address [facility] Phone Number [facility] [address] [place] [address] * TSH (09/15/2011 13:55 EST) TSH 1.03 0.35 - 5.00 uIU/ml [facility] Blood specimen (specimen) 09/15/2011 13:55 EST 09/15/2011 15:18 EST Tawny Abrams MD CHEMISTRY & BLOOD GA S ORDERABLES Performing Organization Address [facility] Co de Phone Number [facility] [address] [place] [address] documented in this encounter Visit Diagnoses Diagnosis Unspecified hypothyroidism Abdominal pain Abdominal pain, unspecified site Peptic ulcer disease Peptic ulcer, unspecified site, unspecified as acute or chronic, without mention of hemorrhage, perforation, or obstruction Fatigue Other malaise and fatigue Vitamin D deficiency Unspecified vitamin D deficiency Hyperglycemia Other abnormal glucose documented in this encounter Care Teams Rn Lvn Relationship Specialty Start Date End Date Yair Dow MD [address] [place] [phone] PCP - General 06/03/11 03/08/12 documented as of this encounter
--- OUTSIDE RECORDS SUMMARY | 2024-07-15 01:33 | XMS_ITS | Encounter Summary ---
Author Organization [facility] Address [address] [place] [address] Care Team Providers Care Leadite Man Name Role Phone Yair Dow MD Primary Care Provider [phone] Reason for Visit * Reason Comments Contraception IUD removal Encounter Details Date Type Department Care Team (Late st Contact Info) Description 07/31/2011 9:45 EDT Office Visit [facility] [address] [place], [place] [address] Vishnu Gustafson MD [address] [place] [address] Contraception (Primary Dx) Social History [...] 07/31/2011 1108 EDT Subjective: Patient ID: Teri aHro is an 31 y.o. female. Chief Complaint Patient presents with ??? Contraception IUD removal HPI Has had merina IUD for approx 3 years and feels it may be contributing to acne an irritability so would like to have removed and go back on [id number] that she had done well on before [...] [facility] - [address] [address] Micaela Hoff MD [address] [place] [address], [address] [place] [address] documented as of this encounter Visit Diagnoses Diagnosis Contraception- Primary Unspecified contraceptive management documented in this encounter Care Teams Leadite Man Relationship Specialty Start Date End Date Yair Dow MD [address] [place] [address] PCP - General 06/03/11 03/08/12 documented as of this encounter
--- OUTSIDE RECORDS SUMMARY | 2024-07-15 01:33 | XMS_ITS | Encounter Summary ---
Author Organization [facility] Address [address] [place] [address] Care Team Providers Care Title Clerk Name Role Phone Yair Dow MD Primary Care Provider [phone] Reason for Visit * Reason Comments Fatigue Diagnosed a year ago with Hosimoto's. Over last couple weeks has increase fatigue, near syncopal, missing work. Various aches and pains. GERD acting up. Skin pink and dry. NAD. Encounter Details Date Type Department Care Team (Late st Contact Info) Description 01/14/2012 10:47 EDT - 01/14/2012 14:51 EDT Emergency [facility] Emergency Department - Main [place] [address] [place], [place] [address] Carol Spencer PA [address] [place] [address] Emergency, MD Fede Fatigue Discharge [...] documented in this encounter Procedure Notes * BRUSH SANDER, ISELA 2 - 02/04/2012 0744 EDTAssociated Order(s): [...] encounter Miscellaneous Notes * Scanned Note-Null - BRUSH SANDER, SCAN 2 - 01/15/2012 2324 EDT documented in this encounter Plan of Treatment Upcoming Encounters Date Type Department Care Team (Late st Contact Info) Description 12/29/2024 10:20 EST Office Visit [facility] Rheumatology & Immunology - [address] [address] Micaela Hoff MD [address] [place] [address], [address] [place] [address] Pending Results Name Type Priority [...] 7:44 EDT) 02/04/2012 7:44 EDT Narrative Transcriptions BRUSH SANDER, SCAN 2 - 02/04/2012 7:44 EDT Scan 2 Title Clerk PROCEDURE/MINOR GERI GICAL ORDERABLES * POCT URINE TEST (01/14/2012 13:24 EDT) Test, Urine, POC Negative Reference Range, Negative POINT OF CARE Control Line Present Yes POINT OF CARE Background Clear? Yes POINT OF CARE Urine specimen (specimen) 01/14/2012 13:24 EDT Carol AVILA POINT OF CARE TEST O RDERABLES Performing Organization Address City/[facility]/ZIP Co de Phone Number POINT OF CARE * TSH (01/14/2012 13:13 EDT) TSH 0.46 0.35 - 5.00 uIU/ml [facility] Blood specimen (specimen) 01/14/2012 13:13 EDT 01/14/2012 13:25 EDT Carol AVILA CHEMISTRY & BLOOD GA S ORDERABLES Performing Organization Address [facility] [[email or web address]] de Phone Number [facility] [address] [place] [address] * (ABNORMAL) POCT URINE DIPSTICK (01/14/2012 13:05 EDT) Color YELLOW [facility] Clarity, UA Clear [facility] Glucose Neg Neg [facility] Bilirubin Neg Neg [facility] Ketones Trace(A) Neg [facility] Specific [place] 1.020 1.001 - 1.035 [facility] Blood Trace(A) Neg [facility] pH 6.5 4.6 - 8.0 [facility] Protein Neg Neg [facility] Urobilinogen 0.2 0.2 - 1.0 E.U./dl [facility] Nitrite Neg Neg [facility] Leuk Esterase 1+(A) Neg KAROLINA CURIEL health management consultant ID [id number] [facility] Comment:Test Performed by [facility] Urine specimen (specimen) 01/14/2012 13:05 EDT 01/14/2012 13:19 EDT Carol AVILA POINT OF CARE TEST O RDERABLES Performing Organization Address [facility] Co de Phone Number [facility] [address] [place] [address] * (ABNORMAL) GLUCOSE, GLUCOMETER (01/14/2012 11:55 EDT) Glucose, Fingerstick 120(H) 70 - 100 mg/dl [facility] Cryptographic Technician ID [id number] [facility] Comment:Test Performed by [facility] 01/14/2012 11:5 5 EDT 01/14/2012 11:57 EDT Provider Unknown CHEMISTRY & BLOOD GA S ORDERABLES [facility] [address] [place] [address] documented in this encounter Visit Diagnoses Diagnosis [...] documented as of this encounter Care Teams Title Clerk Relationship Specialty Start Date End Date Yair Dow MD [address] [place] [address] PCP - General 06/03/11 03/08/12 documented as of this encounter
--- OUTSIDE RECORDS SUMMARY | 2024-07-15 01:33 | XMS_ITS | Encounter Summary ---
Author Organization [facility] Address [address] [place] [address] Care Team Providers Care Disability Aide Name Role Phone Yair Dow MD Primary Care Provider [phone] Reason for Visit * Reason Onset Date Comments Contraception 07/31/2011 Wants removed Encounter Details Date Type Department Care Team (Late st Contact Info) Description 07/31/[address] [address] Yair Dow MD [address] [place] [address] [address] Contraception (Wants removed) Social History [...] [facility] Rheumatology & Immunology - [address] [phone] Micaela Hoff MD 111 [facility], [address] [place] [address] documented as of this encounter Visit Diagnoses Not on filedocumented in this encounter Care Teams Disability Aide Relationship Specialty Start Date End Date Yair Dow MD [address] [place] [address] PCP - General 06/03/11 03/08/12 documented as of this encounter
--- OUTSIDE RECORDS SUMMARY | 2024-07-15 01:33 | XMS_ITS | Encounter Summary ---
Author Organization [facility] Address [address] [place] [address] Care Team Providers Care Filtering Machine Tender Helper Name Role Phone Yair Dow MD Primary Care Provider [phone] Encounter Details Date Type Department Care Team (Latest Contact Info) Description 11/18/2011 9:39 EST - 11/18/2011 23:59 [facility] Hospital Encounter [address] [address] Unknown, Provider, Drew Grijalva MD [address] [place] [address] [place] [phone] Discharge Disposition: Auto Discharge Social History [...] 10:[address] [facility] Rheumatology & Immunology - [address] [address] Micaela Hoff MD 111 [facility], [address] [place] [phone] documented as of this encounter Visit Diagnoses Not on filedocumented in this encounter Additional Health Concerns Infection Onset Date Last Indicated Resolved Time MRSA 10/20/2011 10/20/2011 documented as of this encounter Care Teams Filtering Machine Tender Helper Relationship Specialty Start Date End Date Yair Dow MD [address] [place] [address] PCP - General 06/03/11 03/08/12 documented as of this encounter
--- OUTSIDE RECORDS SUMMARY | 2024-07-15 01:33 | XMS_ITS | Encounter Summary ---
Author Organization [facility] Address [address] [place] [address] Care Team Providers Care Cloth Colorer Name Role Phone Yair Dow MD Primary Care Provider [phone] Reason for Referral * Consult (Routine/Next Available) - Closed Specialty Diagnoses / Procedures [facility] Referred To Contact Rheumatology Diagnoses Fatigue Weakness Myalgia aKylynn Rice MD [address] [address] [place] [address] Rheumatology [address] [place] [address] Referral ID Status Reason Start Date Expiration Date V isits Requested Visits Authorized [id number] Closed Specialty Services Required 03/02/2012 1 1 Question Answer Reason for Request: Worsening fatigue, myalgias, weakness. Rheum labs neg, ?fibromyalgia. Reason for Visit * Reason Comments Strep Throat ? Urinary Tract Infection medicated- sympt oms returned Results MRI Medication Management omeprozole Encounter Details Date Type Department Care Team (Late st Contact Info) Description 03/02/2012 15:00 EDT Office Visit [address] [address] Kaylynn Rice MD [address] [address] Urgency of urination (Primary Dx); Peptic ulcer [...] Progress Notes * Stephany Lambert - 03/02/2012 7080 EDT POC rapid strep negative POC urine [...] ago. Saw a doctor up in the [facility] and treated with nitrofurantoin x5 days. Symptoms [...] Color DARK YELLOW Clarity, UA CLOUDY Specific [place] >=1.030 pH 6.0 Glucose Neg Bilirubin Neg [...] [facility] Rheumatology & Immunology - [address] [address] Micaela Hoff MD [address] [place] [address], [address] [place] [address] Scheduled Referrals Name Type Priority [...] - GENE RAL ORDERABLES Performing Organization Address [facility] de Phone Number [facility] [address] [place] [address] * (ABNORMAL) POCT URINE DIPSTICK (03/02/2012 15:41 EDT) Color DARK YELLOW [facility] Clarity, UA CLOUDY [facility] Glucose Neg Neg [facility] Bilirubin Neg Neg [facility] Ketones Neg Neg [facility] Specific [place] >=1.030 1.001 - 1.035 [facility] Blood 3+(A) Neg [facility] pH 6.0 4.6 - 8.0 [facility] Protein 2+(A) Neg [facility] Urobilinogen 0.2 0.2 - 1.0 E.U./dl [facility] Nitrite Neg Neg [facility] Leuk Esterase 2+(A) Neg KAROLINA CURIEL financial systems director ID [id number] [facility] Comment:Test performed at [facility] Urine specimen (specimen) 03/02/2012 15:41 EDT 03/02/2012 15:42 EDT Kaylynn Rice MD POINT OF CARE TEST ORDERABLES Performing Organization Address [facility] de Phone Number [facility] [address] [place] [address] * PHARYNGITIS CULTURE (03/02/2012 15:38 EDT) Specimen Description Throat [facility] Result No group A beta streptococci isolated. Usual karen-pharyngeal marquita. [facility] Report Status 03/05/2012 Final [facility] Specimen from throat (specimen) 03/02/2012 15:38 EDT 03/02/2012 18:45 EDT Kaylynn Rice MD MICROBIOLOGY - GENE RAL ORDERABLES [facility] [address] [place] [address] * POCT RAPID STREP SCREEN (03/02/2012 15:34 [...] documented as of this encounter Care Teams Cloth Colorer Relationship Specialty Start Date End Date Yair Dow MD [address] [place] [address] PCP - General 06/03/11 03/08/12 documented as of this encounter
--- OUTSIDE RECORDS SUMMARY | 2024-07-15 01:33 | XMS_ITS | Encounter Summary ---
Author Organization [facility] Address [address] [place] [address] Care Team Providers Care Inside Sales Engineer Name Role Phone Yair Dow MD Primary Care Provider Encounter Details Date Type Department Care Team (Late st Contact Info) Description 12/12/[address] [phone] Yair Dow MD [address] [place] [address] [phone] Social History Tobacco Use Types Packs/Day Years [...] [facility] Rheumatology & Immunology - [facility] [address] [place], [place] [phone] Micaela Hoff MD 111 [facility], [address] [place] [phone] documented as of this encounter Visit Diagnoses Not on filedocumented in this encounter Additional Health Concerns Infection Onset Date Last Indicated Resolved Time MRSA 10/20/2011 10/20/2011 documented as of this encounter Care Teams Inside Sales Engineer Relationship Specialty Start Date End Date Yair Dow MD [address] [place] [phone] PCP - General 06/03/11 03/08/12 documented as of this encounter
--- OUTSIDE RECORDS SUMMARY | 2024-07-15 01:33 | XMS_ITS | Encounter Summary ---
Author Organization [facility] Address [address] [place] [address] Care Team Providers Care Junior Media Buyer Name Role Phone Yair Dow MD Primary Care Provider [phone] Reason for Visit * Reason Comments Cellulitis ? from a tatoo on he r left leg history 24 hours Encounter Details Date Type Department Care Team (Late st Contact Info) Description 10/13/2011 16:30 EST Office Visit [facility] [place] [facility] [address] [place], [place] [phone] Vishnu Gustafson MD [address] [place] [address] Cellulitis; Folliculitis Social History Tobacco [...] - [place] Rheumatology & Immunology - [address] [address] Micaela Hoff MD [address] [facility], [address] [place] [phone] documented as of this encounter Visit Diagnoses Diagnosis Cellulitis Cellulitis and abscess of unspecified site Folliculitis Other specified disease of hair and hair follicles documented in this encounter Discontinued Medications Medication Sig Discontinue Reason Start Date End Da te LEVONORGESTREL (MIRENA IU) by Intrauterine route. Every 5 years Therapy completed 10/13/2011 documented as of this encounter Care Teams Junior Media Buyer Relationship Specialty Start Date End Date Yair Dow MD [address] [place] [phone] PCP - General 06/03/11 03/08/12 documented as of this encounter
--- OUTSIDE RECORDS SUMMARY | 2024-07-15 01:33 | XMS_ITS | Encounter Summary ---
Author Organization [facility] Address [address] [place] [address] Care Team Providers Care Glazing Department Supervisor Name Role Phone Yair Dow MD Primary Care Provider [phone] Reason for Visit * Reason Onset Date Comments Paperwork request 02/02/2012 Encounter Details Date Type Department Care Team (Late st Contact Info) Description 02/02/[address] [address] Yair Dow MD [address] [place] [address] [phone] Paperwork request Social History Tobacco [...] [facility] Rheumatology & Immunology - [facility] [address] [place], [place] [address] Micaela Hoff MD 111 [facility], [address] [place] [phone] documented as of this encounter Visit Diagnoses Not on filedocumented in this encounter Additional Health Concerns Infection Onset Date Last Indicated Resolved Time MRSA 10/20/2011 10/20/2011 documented as of this encounter Care Teams Glazing Department Supervisor Relationship Specialty Start Date End Date Yair Dow MD [address] [place] [address] PCP - General 06/03/11 03/08/12 documented as of this encounter
--- OUTSIDE RECORDS SUMMARY | 2024-07-15 01:33 | XMS_ITS | Encounter Summary ---
Author Organization [facility] Address [address] [place] [address] Care Team Providers Care Supervisor Irrigation Name Role Phone Yair Dow MD Primary Care Provider [phone] Reason for Visit * Reason Comments Fatigue felling tired; diffi culty with daily functioning; weight loss; Abdominal Pain constipation; has be en dx with hiatal hernia Vaginitis seen in Dec now has sx again Encounter Details Date Type Department Care Team (Late st Contact Info) Description 01/12/2012 16:00 EDT Office Visit [address] [address] Kaylynn Rice MD [address] [phone] Fatigue (Primary Dx); Bacterial vaginosis Discharge Disposition: [...] similar to when she had thyroid issues. [place] like she was going to fall asleep driving. Abd pain, daily. Diagnosed with hiatal hernia, thinks CP may be related to that. + DELGADILLO thinks they're related to allergies. No SOB or cough. Hiatal hernia diagnosed in 2009, had EGD (while being worked up at bariatric center), diagnosed with ulcers and hernia. Taking omeprazole. No f/u recommended. Diet: Hoke diet. String cheese, yogurt for breakfast. Protein bars, soup for lunch. Eats a lot of eggs. Smoker- 1 ppd. EtOH- 2-3 drinks/week. No drug use. Works in [employer], [employer] in [place]. Tried wellbutrin for smoking cessation. [place] very aggressive. I wanted to hurt someone, [place] anxiety and shaky. Only took for a [...] [facility] Rheumatology & Immunology - [address] [address] Micaela Hoff MD 111 [facility], [address] [place] [address] documented as of this encounter [...] LAB Calcium 9.6 8.5 - 10.5 mg/dl [facility] Calculated Calcium 9.7 8.5 - 10.5 mg/dl [facility] Glucose, Serum 83 70 - 100 mg/dl [facility] Fasting? Unknown [facility] Blood specimen (specimen) 01/12/2012 16:38 EDT 01/12/2012 18:55 EDT Kaylynn Rice MD CHEMISTRY & BLOOD G ORDERABLES [facility] [address] [place] [address] * HEMAGRAM AND DIFFERENTIAL (01/12/2012 16:38 EDT) WBC 7.69 4.0 - 12.4 K/cmm [facility] RBC 4.79 3.86 - 5.04 M/cmm [facility] Hemoglobin 14.6 11.6 - 15.2 gm/dl [facility] HCT 42.5 34.9 - 44.4 % [facility] MCV 89 81 - 98 fl [facility] MCH 30.5 26.7 - 33.3 pg [facility] MCHC 34.4 32.1 - 35.9 gm/dl [facility] PLT 255 141 - 320 K/cmm [...] PROB E ORDERABLES [facility] [address] [place] [address] documented in this encounter Visit Diagnoses Diagnosis Fatigue- Primary Other malaise and fatigue Bacterial vaginosis Vaginitis and vulvovaginitis, unspecified documented in this encounter Additional Health Concerns Infection Onset Date Last Indicated Resolved Time MRSA 10/20/2011 10/20/2011 documented as of this encounter Care Teams Supervisor Irrigation Relationship Specialty Start Date End Date Yair Dow MD [address] [place] [phone] PCP - General 06/03/11 03/08/12 documented as of this encounter
--- OUTSIDE RECORDS SUMMARY | 2024-07-15 01:33 | XMS_ITS | Encounter Summary ---
Author Organization [facility] Address [address] [place] [address] Care Team Providers Care Production Metal Sprayer Name Role Phone Yair Dow MD Primary Care Provider [phone] Reason for Visit * Reason Onset Date Comments Medications Refill 10/02/2011 Encounter Details Date Type Department Care Team (Late Contact Info) Description 10/02/2011 Refill [facility] Endocrinology - [address] [phone] Izabel Crawford RN CDE Medications Refill Social [...] [facility] Rheumatology & [facility] - [facility] [address] [place], [place] [phone] Micaela Hoff MD 111 [facility], [address] [place] [phone] documented as of this encounter Visit Diagnoses Not on filedocumented in this encounter Care Teams Production Metal Sprayer Relationship Specialty Start Date End Date Yair Dow MD [address] [place] [phone] PCP - General 06/03/11 03/08/12 documented as of this encounter
--- OUTSIDE RECORDS SUMMARY | 2024-07-15 01:33 | XMS_ITS | Encounter Summary ---
Author Organization [facility] Address [address] [place] [address] Care Team Providers Care Retail Loss Prevention Specialist Name Role Phone Yair Dow MD Primary Care Provider [phone] Reason for Visit * Reason Comments Vaginal Discharge has noticed the last few days increase vaginal discharge; Smoking Cessation was on wellbutrin wo uld like to try this again Encounter Details Date Type Department Care Team (Late st Contact Info) Description 12/03/2011 14:00 [place] [address] Kaylynn Rice MD [address] [address] Screening for STD (sexually transmitted [...] would like to try this again Subjective: eTri Haro is a 31 y.o. year old [...] [facility] Rheumatology & Immunology - [address] [address] Micaela Hoff MD [address] [place] [address], [address] [place] [address] documented as of this encounter [...] OF CARE TEST ORDERABLES Performing Organization Address [facility] Co de Phone Number POINT OF CARE * SYPHILIS SEROLOGY (12/03/2011 14:19 EST) Syphilis Serology Interpretation: Nonreactive [facility] Comment:Reference Range: Non reactive Blood specimen (specimen) 12/03/2011 14:19 EST 12/03/2011 19:28 EST Kaylynn Rice MD IMMUNOLOGY AND SERO LOGY ORDERABLES Performing Organization Address [facility] Co de Phone Number [facility] [address] [place] [address] * HIV 1/2 ANTIBODY (12/03/2011 14:19 EST) Pathologist [facility] HIV 1/2 Antibody Negative [facility] Comment:Reference Range: Neg ative Blood specimen (specimen) 12/03/2011 14:19 EST 12/03/2011 19:28 EST Kaylynn Rice MD IMMUNOLOGY AND SERO LOGY ORDERABLES Performing Organization Address [facility] de Phone Number [facility] [address] [place] [address] * CHLAMYDIA/GC AMPLIFIED (12/03/2011 14:19 EST) Pathologist [facility] Specimen Description Cervix [facility] Chlamydia Result No Chlamydia trachomatis DNA detected by dental detail representative mediated amplification. [facility] GC Result No Neisseria gonorrhoeae DNA detected by dental detail representative mediated amplification. [facility] Specimen of unknown material (specimen) 12/03/2011 14:19 EST 12/03/2011 19:41 EST Kaylynn Rice MD MICROBIOLOGY - GENE RAL ORDERABLES Performing Organization Address [facility] Co de Phone Number [facility] [address] [place] [address] documented in this encounter Visit Diagnoses Diagnosis [...] documented as of this encounter Care Teams Retail Loss Prevention Specialist Relationship Specialty Start Date End Date Yair Dow MD [address] [place] [phone] PCP - General 06/03/11 03/08/12 documented as of this encounter
--- OUTSIDE RECORDS SUMMARY | 2024-07-15 01:33 | XMS_ITS | Encounter Summary ---
Author Organization [facility] Address [address] [place] [address] Care Team Providers Care Pecan Sheller Name Role Phone Yair Dow MD Primary Care Provider [phone] Unknown, Provider Primary Care Provider [phone] Ladonna Maurer Primary Care Provider [phone] Cara Arteaga MD Primary Care Provider Conor Angel MD Primary Care Provider [phone] None, Provider Primary Care Provider Kaylynn Pizarro MD Primary Care Provider [phone] Reason for Visit * Reason Comments Other Encounter Details Date Type Department Care Team (Late st Contact Info) Description 12/20/2011 Refill [facility] Endocrinology - [facility] [address] [place] [address] Drew Grijalva MD [address] [place] [address] [address] [place] [address] Other Social History Tobacco Use [...] Info) Description 12/29/2024 10:20 EST Office Visit [facility] Rheumatology & Immunology - [address] [address] Micaela Hoff MD 111 [facility], [address] [place] [phone] documented as of this encounter Visit Diagnoses Not on filedocumented in this encounter Discontinued Medications Medication Sig Discontinue Reason Start Date End Da te levothyroxine (SYNTHROID) 88 mcg tablet Take 1 Tab by mouth daily. Reorder 10/02/2011 12/20/2011 documented as of this encounter Additional Health Concerns Infection Onset Date Last Indicated Resolved Time MRSA 10/20/2011 10/20/2011 documented as of this encounter Care Teams Pecan Sheller Relationship Specialty Start Date End Date Yair Dow MD [address] [place] [phone] PCP - General 06/03/11 03/08/12 Unknown, MD Jake PCP - General 03/09/12 05/11/12 Ladonna Maurre PA [address] [place] [address] PCP - General 05/12/12 01/24/13 Cara Arteaga MD [address] [place] [phone] PCP - General 01/25/13 02/06/14 Conor Angel MD [facility] [place] [address] PCP - General 02/07/14 06/08/14 None, Provider PCP - General 06/09/14 03/01/15 Kaylynn Gimenez MD [address] [place] [phone] PCP - General 03/02/15 documented as of this encounter
--- OUTSIDE RECORDS SUMMARY | 2024-07-15 01:33 | XMS_ITS | Encounter Summary ---
Author Organization [facility] Address [address] [place] [address] Care Team Providers Care Door Captain Name Role Phone Yair Dow MD Primary Care Provider [phone] Reason for Visit * Reason Onset Date Comments Results 03/04/2012 Encounter Details Date Type Department Care Team (Late st Contact Info) Description 03/04/[address] [address] Yair Dow MD [address] [place] [address] DR [facility] [address] [place] [address] Results Social History Tobacco Use [...] that bad she should go to the [facility] today to be seen and evaluated. [...] Description 12/29/2024 10:20 EST Office Visit [facility] Rheumatology & Immunology - [address] [phone] Micaela Hoff MD 111 [facility], Level 5 [place] [phone] documented as of this encounter Visit Diagnoses Not on filedocumented in this encounter Additional Health Concerns Infection Onset Date Last Indicated Resolved Time MRSA 10/20/2011 10/20/2011 documented as of this encounter Care Teams Door Captain Relationship Specialty Start Date End Date Yair Dow MD [address] [place] [address] PCP - General 06/03/11 03/08/12 documented as of this encounter
--- OUTSIDE RECORDS SUMMARY | 2024-07-15 01:33 | XMS_ITS | Encounter Summary ---
Author Organization [facility] Address [address] [place] [address] Care Team Providers Care Housing Counselor Name Role Phone Yair Dow MD Primary Care Provider [phone] Encounter Details Date Type Department Care Team (Late st Contact Info) Description 03/01/2012 21:38 EDT - 03/01/2012 23:59 EDT Hospital Encounter [facility] [address] [place] [address] Kaylynn Rice MD [address] [phone] Discharge Disposition: Auto Discharge Social History Tobacco [...] [facility] Rheumatology & Immunology - [address] [address] Micaela Hoff MD 111 [facility], Level 5 [place] [address] documented as of this encounter Visit Diagnoses Not on filedocumented in this encounter Additional Health Concerns Infection Onset Date Last Indicated Resolved Time MRSA 10/20/2011 10/20/2011 documented as of this encounter Care Teams Housing Counselor Relationship Specialty Start Date End Date Yair Dow MD [address] [place] [address] PCP - General 06/03/11 03/08/12 documented as of this encounter
--- OUTSIDE RECORDS SUMMARY | 2024-07-15 01:33 | XMS_ITS | Encounter Summary ---
Author Organization [facility] Address [address] [place] [address] Care Team Providers Care Digital Strategist Name Role Phone Yair Dow MD Primary Care Provider [phone] Reason for Visit * Reason Comments Pharyngitis Pt arrives via triag e with c/o sore throat. Pt states that she has white spots on back of throat. Rapid Strep negative through [facility]. Pt in NAD. No drooling noted. Encounter Details Date Type Department Care Team (Late st Contact Info) Description 03/04/2012 16:12 EDT - 03/04/2012 18:50 EDT Emergency [facility] Emergency Department - [facility] [address] [place], [place] [address] Jude Riley PA-C [address] [address] Emergency, MD Fede Tonsillitis Discharge [...] back of throat. Rapid Strep negative through [facility]. Pt in NAD. No drooling noted. [...] Date ??? Upper gastrointestinal endoscopy 09/03/2010 ??? [place] tooth extraction No Known Allergies History Substance [...] encounter Miscellaneous Notes * Scanned Note-Null - SALES ADMINISTRATION MANAGER, SCAN 2 - 03/08/2012 8082 EDT documented in this encounter Plan of Treatment Upcoming Encounters Date Type Department Care Team (Late st Contact Info) Description 12/29/2024 10:20 EST Office Visit [facility] Rheumatology & Immunology - [address] 6[address]751 Micaela Hoff MD [address] [place] [address] 5 [place] [phone] documented as of this encounter Visit Diagnoses Diagnosis Tonsillitis Acute tonsillitis documented in this encounter Additional Health Concerns Infection Onset Date Last Indicated Resolved Time MRSA 10/20/2011 10/20/2011 documented as of this encounter Care Teams Digital Strategist Relationship Specialty Start Date End Date Yair Dow MD [address] [place] [phone] PCP - General 06/03/11 03/08/12 documented as of this encounter
--- OUTSIDE RECORDS SUMMARY | 2024-07-15 01:33 | XMS_ITS | Encounter Summary ---
Author Organization [facility] Address [address] [place] [address] Care Team Providers Care Engraver Lettering Name Role Phone Yair Dow MD Primary Care Provider [phone] Reason for Visit * Reason Comments Wound Check pt here Sat for absc ess on left leg. Pt here for wound check Encounter Details Date Type Department Care Team (Late st Contact Info) Description 10/20/2011 15:59 EST - 10/20/2011 17:28 EST Emergency [facility] Emergency Department - [facility] [address] [place] [address] Jayson Bhakta, PA-C [address] [place] [address] Emergency, MD Fede Wound check, abscess Discharge [...] Father 50 MD ??? Diabetes Father ??? Cancer Maternal Aunt thyroid ??? Heart Disease Maternal Grandmother MD ??? [...] encounter Miscellaneous Notes * Scanned Note-Null - Leather Belt Maker, Scan - 10/21/2011 3612 EST documented in this encounter Plan of Treatment Upcoming Encounters Date Type Department Care Team (Late st Contact Info) Description 12/29/2024 10:20 EST Office Visit [facility] Rheumatology & Immunology - [address] 7[address]681 Micaela Hoff MD 111 [facility], Level [address] [place] [phone] documented as of this encounter Visit Diagnoses Diagnosis Wound check, abscess Encounter for other specified aftercare documented in this encounter Additional Health Concerns Infection Onset Date Last Indicated Resolved Time MRSA 10/20/2011 10/20/2011 documented as of this encounter Care Teams Engraver Lettering Relationship Specialty Start Date End Date Yair Dow MD [address] [place] [address] PCP - General 06/03/11 03/08/12 documented as of this encounter
--- OUTSIDE RECORDS SUMMARY | 2024-07-15 01:33 | XMS_ITS | Encounter Summary ---
Author Organization [facility] Address [address] [place] [address] Care Team Providers Care Hospital Account Liaison Name Role Phone Ladonna Maurer Primary Care Provider Reason for Visit * Reason Onset Date Comments Other 05/22/2011 Encounter Details Date Type Department Care Team (Late st Contact Info) Description 05/22/2011 Telephone [facility] Family Medicine [address] [address] Ladonna Maurer PA [address] [place] [address] Other Social History Tobacco Use Types [...] 05/22/2011 1535 EDT Received pt's records from [facility] today Pt would like to transfer care here at [facility] Called left message on pt's home voicemail to call to schedule an appt documented in this encounter Plan of Treatment Upcoming Encounters Date Type Department Care Team (Late Contact Info) Description 12/29/2024 10:20 EST Office Visit [facility] Rheumatology & Immunology - [facility] [address] [place], [place] [address] Micaela Hoff MD 111 [facility], [address] [place] [phone] documented as of this encounter Visit Diagnoses Not on filedocumented in this encounter Care Teams Hospital Account Liaison Relationship Specialty Start Date End Date Ladonna Maurer PA [address] [place] [address] PCP - General 05/20/10 06/02/11 documented as of this encounter
--- OUTSIDE RECORDS SUMMARY | 2024-07-15 01:33 | XMS_ITS | Encounter Summary ---
Author Organization [facility] Address [address] [place] [address] Care Team Providers Care Inside Sales Associate Name Role Phone Yair Dow MD Primary Care Provider [phone] Encounter Details Date Type Department Care Team (Late st Contact Info) Description 11/26/[address] [address]791 Yair Dow MD [address] [place] [address] [phone] Social History Tobacco Use Types Packs/Day Years [...] [facility] Rheumatology & Immunology - [facility] [address] [place], [place] [phone] Micaela Hoff MD 111 [facility], Level [address] [place] [phone] documented as of this encounter Visit Diagnoses Not on filedocumented in this encounter Additional Health Concerns Infection Onset Date Last Indicated Resolved Time MRSA 10/20/2011 10/20/2011 documented as of this encounter Care Teams Inside Sales Associate Relationship Specialty Start Date End Date Yair Dow MD [address] [place] [phone] PCP - General 06/03/11 03/08/12 documented as of this encounter
--- OUTSIDE RECORDS SUMMARY | 2024-07-15 01:33 | XMS_ITS | Encounter Summary ---
Author Organization [facility] Address [address] [place] [address] Care Team Providers Care Wrapper And Preserver Name Role Phone Yair Dow MD Primary Care Provider [phone] Reason for Visit * Reason Comments Wound Infection follow up Adenopathy painful Nausea Encounter Details Date Type Department Care Team (Late st Contact Info) Description 10/24/2011 15:30 EST Office Visit [address] [address] Kaylynn Rice MD [address] [address] Nausea (Primary Dx); Abscess Social [...] [facility] Rheumatology & Immunology - [address] [address] Micaela Hoff MD 111 [facility], Level [address] [place] [address] [...] documented as of this encounter Care Teams Wrapper And Preserver Relationship Specialty Start Date End Date Yair Dow MD [address] [place] [address] PCP - General 06/03/11 03/08/12 documented as of this encounter
--- OUTSIDE RECORDS SUMMARY | 2024-07-15 01:33 | XMS_ITS | Encounter Summary ---
Author Organization [facility] Address [address] [place] [address] Care Team Providers Care Bill Of Lading Clerk Name Role Phone Yair Dow MD Primary Care Provider [phone] Encounter Details Date Type Department Care Team (Late st Contact Info) Description 11/18/2011 Phlebotomy Only [address] 121536 [phone] Learning Support Services Director, Outpatient Unspecified hypothyroidism; Chronic lymphocytic thyroiditis Social [...] [facility] Rheumatology & Immunology - [address] 9955[address] Micaela Hoff MD 111 [facility], [facility] 5 [place] [phone] (work) documented as of this encounter Procedures [...] * T4 FREE (11/18/2011 9:42 EST) Pathologist [facility] Free T4 1.8 0.8 - 1.8 ng/dL [facility] Blood specimen (specimen) 11/18/2011 9:42 EST 11/18/2011 11:54 EST Drew Grijalva MD CHEMISTRY & BLOOD GAS ORDERABLES Performing Organization Address [facility] Co de Phone Number [facility] [address] [place] [address] * (ABNORMAL) TSH (11/18/2011 9:42 EST) Pathologist [facility] TSH 0.16(L) 0.35 - 5.00 uIU/ml [facility] Blood specimen (specimen) 11/18/2011 9:42 EST 11/18/2011 11:54 EST Drew Grijalva MD CHEMISTRY & BLOOD GAS ORDERABLES Performing Organization Address [facility] Co de Phone Number [facility] [address] [place] [address] * (ABNORMAL) THYROPEROXIDASE ANTIBODY (11/18/2011 9:42 EST) Thyroperoxidase Ab 296(H) <61 U/mL [facility] Blood specimen (specimen) 11/18/2011 9:42 EST 11/18/2011 11:54 EST Drew Grijalva MD CHEMISTRY & BLOOD GAS ORDERABLES Performing Organization Address [facility] Phone Number [facility] [address] [address] * ANTI THYROGLOBULIN (11/18/2011 9:42 EST) Thyroglobulin Ab 46 <61 U/mL [facility] Blood specimen (specimen) 11/18/2011 9:42 EST 11/18/2011 11:54 EST Drew Grijalva MD CHEMISTRY & BLOOD GAS ORDERABLES Performing Organization Address [facility] de Phone Number [facility] [address] [address] documented in this encounter Visit Diagnoses Diagnosis Unspecified hypothyroidism Chronic lymphocytic thyroiditis documented in this encounter Additional Health Concerns Infection Onset Date Last Indicated Resolved Time MRSA 10/20/2011 10/20/2011 documented as of this encounter Care Teams Bill Of Lading Clerk Relationship Specialty Start Date End Date Yair Dow MD [address] [place] [address] PCP - General 06/03/11 03/08/12 documented as of this encounter
--- OUTSIDE RECORDS SUMMARY | 2024-07-15 01:33 | XMS_ITS | Encounter Summary ---
Author Organization [facility] Address [address] [place] [address] Care Team Providers Care Art Manager Name Role Phone Yair Dow MD Primary Care Provider [phone] Reason for Visit * Reason Onset Date Comments Results 01/26/2012 Encounter Details Date Type Department Care Team (Late st Contact Info) Description 01/26/[address] [address] Yair Dow MD [address] [place] [address] DR [facility] [address] [place] [address] Results Social History Tobacco Use [...] [facility] Rheumatology & Immunology - [address] 2867[address] Micaela Hoff MD 111 [facility], Level [address] [place] [address] documented as of this encounter Visit Diagnoses Not on filedocumented in this encounter Additional Health Concerns Infection Onset Date Last Indicated Resolved Time MRSA 10/20/2011 10/20/2011 documented as of this encounter Care Teams Art Manager Relationship Specialty Start Date End Date Yair Dow MD [address] [place] [phone] PCP - General 06/03/11 03/08/12 documented as of this encounter
--- OUTSIDE RECORDS SUMMARY | 2024-07-15 01:33 | XMS_ITS | Encounter Summary ---
Author Organization [facility] Address [address] [place] [address] Care Team Providers Care Public Health Aides Teacher Name Role Phone Yair Dow MD Primary Care Provider [phone] Reason for Visit * Reason Onset Date Comments Cellulitis 10/18/2011 Encounter Details Date Type Department Care Team (Late st Contact Info) Description 10/18/[address] [address] Loren Singletary MD [address] [place], [place] [phone] Cellulitis Social History Tobacco Use Types Packs/Day [...] Telephone Encounter - Loren Singletary - 10/18/2011 1180 EST 31 year old female seen for [...] [facility] Rheumatology & Immunology - [address] [address]691 Micaela Hoff MD 111 [facility], Level [address] [place] [address] documented as of this encounter Visit Diagnoses Not on filedocumented in this encounter Care Teams Public Health Aides Teacher Relationship Specialty Start Date End Date Yair Dow MD [address] [place] [address] PCP - General 06/03/11 03/08/12 documented as of this encounter
--- OUTSIDE RECORDS SUMMARY | 2024-07-15 01:34 | XMS_ITS | Encounter Summary ---
Author Organization [facility] Address [address] [place] [address] Care Team Providers Care Special Investigation Unit Investigator Name Role Phone Unavailable Primary Care Provider Unavailabl e Encounter Details Date Type Department Care Team (Latest Contact Info) Description 04/20/2008 19:02 EDT - 04/23/2008 11:59 EDT Hospital Encounter [facility] Mother/Baby Unit [address] [place], [place] [address] Jameson Logan [address] [address] Linda Bustillos MD Discharge Disposition: [...] Info) Description 12/29/2024 10:20 EST Office Visit [facility] Rheumatology & Immunology - [facility] [address] [place], [place] [phone] Micaela Hoff MD 111 [facility], Level [address] [place] [phone] documented as of this encounter Procedures Procedure [...] LAB Sample Type ARTERIAL Cord [facility] menagerie caretaker ID [id number] Test performed by Chemistry [facility] 04/21/2008 8:25 EDT 04/21/2008 8:30 EDT Newton Lucas MD CHEMISTRY & BLOOD GA S ORDERABLES [facility] [address] [place] [address] * (ABNORMAL) BLOOD GAS, G3 ISTAT (04/21/2008 [...] Sample Type Venous specimen. Cord [facility] menagerie caretaker ID [id number] [facility] 04/21/2008 8:10 EDT 04/21/2008 8:59 EDT Newton Lucas MD CHEMISTRY & BLOOD GA S ORDERABLES JENIFER CURIEL [facility] [address] [place] [address] * SURGICAL PATHOLOGY (04/21/2008 0:00 EDT) Pathology Report: SURGICAL PATHOLOGY REPORT Reports generated via electronic interface contain original data; however they are lacking the format of the original report. Caution should be taken when reading/interpretin g unformatted reports. Name: ? TERI CROWE ? Accession #: ? [id number] ? : ? 1980 (Age: 28) ??F [...] spongy deep red parenchyma devoid of lesion. ??Software Development Engineer sections are submitted as follows: BLOCK BOND A1 ?Software Development Engineer proximal and distal umbilical cord A2 ?Membrane rolls to include focal green discoloration A3, A4 ?Full thickness central placenta (A. Natividad)/mpl End of Report [facility] 04/21/2008 04/21/2008 9:4 9 EDT Jameson Logan PATHOLOGY ORDERABLES [facility] [address] [place] [address] * (ABNORMAL) HEMAGRAM (04/20/2008 23:35 EDT) WBC [...] PF4 ORD ERABLES [facility] [address] [place] [address] documented in this encounter Visit Diagnoses Not on filedocumented in this encounter
--- OUTSIDE RECORDS SUMMARY | 2024-07-15 01:34 | XMS_ITS | Encounter Summary ---
Author Organization [facility] Address [address] [place] [address] Care Team Providers Care Dress Finisher Name Role Phone Ladonna Maurer Primary Care Provider [phone] Reason for Visit * Reason Comments New Patient Visit ekg and holter done Irregular Heart Beat started in November Dizziness a couple times per w [place] Fatigue Encounter Details Date Type Department Care Team (Late Contact Info) Description 02/06/2011 13:20 EDT Office Visit [facility] Cardiology - [place] [address] [place] [address] Jose Manuel Benjamin MD 111 [facility], Level [address] [place] [address] Palpitations; Murmur; Atypical chest pain [...] [facility] Rheumatology & Immunology - [address] [address] Micaela Hoff MD [address] [place] [address], Level [address] [place] [phone] documented as of this encounter Procedures Procedure Name Priority Date/Time Associated Diagnosis Comments ECHOCARDIOGRAM Routine 02/11/2011 11:18 EDT Murmur Palpitations Atypical chest pain documented in this encounter Results * ECHOCARDIOGRAM (02/11/2011 11:18 EDT) Anatomical Region Laterality Modality Other 02/11/2011 11:1 8 EDT Narrative 02/11/2011 12:03 EDT Interpreting Group: [facility] [address] [place] [address] *STUDY CONCLUSIONS* SUMMARY - ??Overall left ventricular [...] Manuel Benjamin MD Fellow: ?Nawaf Ma MD Environmental Web Crawler: ?? Genoveva Jackson [facility] Ordering MD: ?? Jose Manuel Benjamin [...] was interpreted by [facility]. The procedure was started at 07:30:39. The [...] 11-Feb-2011 12:00:58 Procedure Note 02/11/2011 Interpreting Group: [facility] [address] [place] [address] *STUDY CONCLUSIONS* SUMMARY - Overall left ventricular [...] Manuel Benjamin MD Fellow: Nawaf Ma MD Environmental Web Crawler: Genoveva Jackson [facility] Ordering MD: Jose Manuel Benjamin MD Referring MD: Ladonna Maurer Attending MD: Jose Manuel Benjamin MD Admitting MD: Jose Manuel Benjamin MD *INDICATIONS AND HISTORY* DIAGNOSES SUPPORTING MEDICAL NECESSITY: 786.5 Chest pain *PROCEDURE DATA* PROCEDURE INFORMATION: A transthoracic complete 2D study was performed. Additional evaluation included M-mode, complete spectral Doppler, and color Doppler. This wasa routine echocardiographic study. [facility] The procedure was started at 07:30:39. The [...] NEW PATIENT EVALUATION - 02/06/2011 Ladonna Maurer [address] [address] Dear Ms Maurer: Thank you for requesting me to render consultation on Teri Haor in regards to her palpitations and chest [...] a day. 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 She quit smoking several months [...] distress. Her weight is 237 pounds. Blood xpmenvcl196/80 and a pulse of 69. She has [...] MD - Jose Manuel Benjamin MD - [facility] Job ID: SM Doc ID: [id number] Ext Doc ID: [id number] cc: AUSTIN Silva documented in this encounter Discontinued Medications Medication Sig Discontinue Reason Start Date End Da te mometasone (NASONEX) 50 mcg/Actuation nasal spray 2 Sprays by Nasal route daily. Patient Stopped Taking 02/06/2011 documented as of this encounter Care Teams Dress Finisher Relationship Specialty Start Date End Date Ladonna Maurer PA [address] [place] [address] PCP - General 05/20/10 06/02/11 documented as of this encounter
--- OUTSIDE RECORDS SUMMARY | 2024-07-15 01:34 | XMS_ITS | Encounter Summary ---
Author Organization [facility] Address [address] [place] [address] Care Team Providers Care Hogshead Cooper Name Role Phone Unavailable Primary Care Provider Unavailabl e Encounter Details Date Type Department Care Team (Latest Contact Info) Description 11/11/2007 13:46 EST Hospital Encounter [address] [address] Kenton Parrish MD Discharge Disposition: Auto Discharge [...] Visit [facility] Rheumatology & Immunology - [address] [address] Micaela Hfof MD 111 [facility], Level [address] [place] [phone] documented as of this encounter Visit Diagnoses Not on filedocumented in this encounter
--- OUTSIDE RECORDS SUMMARY | 2024-07-15 01:34 | XMS_ITS | Encounter Summary ---
Author Organization [facility] Address [address] [place] [address] Care Team Providers Care Focused Factory Manager Name Role Phone Unavailable Primary Care Provider Unavailabl e Encounter Details Date Type Department Care Team (Late st Contact Info) Description 01/25/2008 15:28 EDT Hospital Encounter [address] [address] Makeda Lucas MD [address] [place] [address], [facility] 4 [place] [phone] Social History Tobacco Use Types Packs/Day Years [...] Visit [facility] Rheumatology & Immunology [address] [phone] Micaela Hoff MD [address] [place] [address], [facility] 5 [place] [address] documented as of this encounter Visit Diagnoses Not on filedocumented in this encounter Additional Health Concerns Infection Onset Date Last Indicated Resolved Time MRSA 10/20/2011 10/20/2011 documented as of this encounter
--- OUTSIDE RECORDS SUMMARY | 2024-07-15 01:34 | XMS_ITS | Encounter Summary ---
Author Organization [facility] Address [address] [place] [address] Care Team Providers Care Front Counter Clerk Name Role Phone Unavailable Primary Care Provider Unavailabl e Encounter Details Date Type Department Care Team (Late st Contact Info) Description 12/14/2007 13:42 EST Hospital Encounter [address] [address] Magda Tejada MD [address] [place] [address] Makeda Lucas MD [address] [place] [address], Level [address] [place] [address] Social History Tobacco Use Types Packs/Day Years [...] [facility] Rheumatology & Immunology - [address] [address] Micaela Hoff MD 111 [facility], Level 5 [place] [address] documented as of this encounter Procedures Procedure Name Priority Date/Time Associated Diagnosis Comments GROUP HOME DETAILED 12/14/2007 15:59 EST documented in this encounter Results * GROUP HOME DETAILED (12/14/2007 15:59 EST) Anatomical Region Laterality Modality Other 12/14/2007 15:5 9 EST Narrative 04/23/2009 3:55 EDT DETAILED,[id number] AND CERVICAL LENGTH/1ST AND 2ND TRIMESTER BLEEDING,H/O SEPTUM WITH REPAIR,H/O 20 WK LOSS Please refer to the separate [facility] report. ??Contact Maternal Medicine. Procedure Note Shanique Eagle MD - 04/23/2009 DETAILED,[id number] AND CERVICAL LENGTH/1ST AND 2ND TRIMESTER BLEEDING,H/O [...]
--- OUTSIDE RECORDS SUMMARY | 2024-07-15 01:34 | XMS_ITS | Encounter Summary ---
Author Organization [facility] Address [address] [place] [address] Care Team Providers Care Farm Service Consultant Name Role Phone Ladonna Maurer Primary Care Provider [phone] Reason for Visit * Reason Comments Obesity Encounter Details Date Type Department Care Team (Late st Contact Info) Description 10/10/2010 11:00 EST Office Visit [facility] Bariatric Surgery - [place] [address] [place], [place] [phone] Skyler Blanco MD [address] [place] [address] Morbid obesity ([facility]) (Primary Dx) Social History Tobacco Use Types [...] Crackers, Pop tarts, cookie, cocoa, bread, cheese, japanese fries with gravy and cheese Snacking:yes, crackers, [...] encounter Miscellaneous Notes * Scanned Note-Null - Police Commanding Officer, Scan - 09/27/2011 1201 EST documented in this encounter Plan of Treatment Upcoming Encounters Date Type Department Care Team (Late st Contact Info) Description 12/29/2024 10:20 EST Office Visit [facility] Rheumatology & Immunology - [facility] [address] [place] [address] Micaela Hoff MD 111 [facility], Level 5 [place] [phone] documented as of this encounter Visit Diagnoses Diagnosis Morbid obesity ([facility])- Primary Morbid obesity documented in this encounter [...] 07/14/2011 added in this encounter Care Teams Farm Service Consultant Relationship Specialty Start Date End Date Ladonna Maurer PA [address] [place] [address] PCP - General 05/20/10 06/02/11 documented as of this encounter
--- OUTSIDE RECORDS SUMMARY | 2024-07-15 01:34 | XMS_ITS | Encounter Summary ---
Author Organization [facility] Address [address] [place] [address] Care Team Providers Care Ribbon Cleaner Name Role Phone Unavailable Primary Care Provider Unavailabl e Encounter Details Date Type Department Care Team (Late st Contact Info) Description 11/16/2007 12:59 EST Hospital Encounter [address] [address] Magda Tejada MD [address] [place] [address] Makeda Lucas MD [address] [place] [address], [facility] 4 [place] [phone] Discharge Disposition: Auto Discharge Social History Tobacco [...] Visit [facility] Rheumatology & Immunology [address] [phone] Micaela Hoff MD [address] [place] [address] 5 [place] [phone] documented as of this encounter Procedures Procedure Name Priority Date/Time Associated Diagnosis Comments [facility] EXAM 11/16/2007 14:0 1 EST documented in this encounter Results * [facility] EXAM (11/16/2007 14:01 EST) Anatomical Region Laterality Modality Other 11/16/2007 14:0 1 EST Narrative 04/23/2009 3:47 EDT LIMITED,[id number] AND CERVICAL LENGTH/EVAL FOR 1ST AND 2ND TRIMESTER VB Please refer to the separate [facility] report. ??Contact Maternal Medicine. Procedure Note Robb Nam MD - 04/23/2009 LIMITED,[id number] AND CERVICAL LENGTH/EVAL FOR 1ST AND 2ND TRIMESTER VB Please refer to the separate [facility] report. Contact Maternal Medicine. Magda Tejada MD IMG [facility] ORDERABLE S documented in this encounter Visit Diagnoses Not on filedocumented in this encounter
--- OUTSIDE RECORDS SUMMARY | 2024-07-15 01:34 | XMS_ITS | Encounter Summary ---
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 The patient has had problems with previous [...] sensory deficit. PROGRESS AND PROCEDURES E.D. Course: general maintenance engineer feels pt is ok for d/c with f/u with obgyn. Pt agrees. Pelvic exam done by general maintenance engineer resident.. Consult obtained from OB-RESTAURANT COOK. Case discussed. Will see patient in the ED today. Consultation performed in ED. Patient/family counseled. EDAttending on duty and available for supervision: Heidy Paul. Disposition: Condition: good. Discharged home. CLINICAL IMPRESSION Mild vaginal bleeding. Second trimester . INSTRUCTIONS Drink plenty of fluids. Your Current Medications: Your current home medications have been reviewed by the Emergency Department physician sociology research assistant. No changes in your current home medications are recommended at this time. Continue taking the following medications: lexapro vitamins. OTC Medications: Acetaminophen (available over the counter): take according tolabel instructions. Follow-up: Follow up with an obstetrical anesthesiologist as scheduled. Follow-up: LIZZETH CLAYTON MD, LICENSED PRACTICAL NURSE CLINIC NURSE, , 111 [facility], ACC [address], [address]. Follow up as scheduled. Understanding of the discharge instructions verbalized by patient. (Electronically signed by AUSTIN Maddox 10/31/2007 19:30) TERI Ford VisitID: [id number] Date: 10/31/2007 10/31/2007 9:42 DEVIN REFERRING PT TO LICENSED PRACTICAL NURSE CLINIC NURSE FOR ABDOMINAL CRAMPS AND VAGINAL BLEEDING, 15 [...] bleeding and pressure. Pt sent here by RESTAURANT COOK MD.). Treatment ORTHOTICS ASSISTANT: None. PAST HX: Negative. Currently : 15 weeks. SOCIAL HX: Nonsmoker. No alcohol use. No report of abuse. Arrived by private vehicle. Historian: patient. --1019 Kelle Prescott R.N.. DISPOSITION / DISCHARGE The patient was discharged home and accompanied by bench boring machine operator. The patient left the Emergency Department ambulatory anda private vehicle. Reach Truck Operator driving. --1138 Sis Rg R.N.. Kelle Rg R.N. Locked/Released at 10/31/2007 12:52 by Kelle McFaul, R.N. documented in this encounter Plan of Treatment Upcoming Encounters Date Type Department Care Team (Late st Contact Info) Description 12/29/2024 10:20 EST Office Visit [facility] Rheumatology & Immunology - [address] [address] Micaela Hoff MD 111 [facility], Level 5 [place] [address] documented as of this encounter Visit Diagnoses Not on filedocumented in this encounter
--- OUTSIDE RECORDS SUMMARY | 2024-07-15 01:34 | XMS_ITS | Encounter Summary ---
Author Organization [facility] Address [address] [place] [address] Care Team Providers Care Die Maker Trim Name Role Phone Ladonna Maurer Primary Care Provider [phone] Encounter Details Date Type Department Care Team (Late st Contact Info) Description 09/03/2007 Results Only [facility] Obstetrics & Midwifery - [address] [address] Shanique Eagle MD [address] [address] Social History Tobacco Use Types Packs/Day Years [...] [facility] Rheumatology & Immunology - [address] 6[address] Micaela Hoff MD 111 [facility], Level 5 [place] [address] documented as of this encounter [...] growth [facility] Report Status Final [id number] [facility] 09/03/2007 15:4 9 EDT 09/03/2007 15:51 EDT Shanique Eagle MD MICROBIOLOGY - GENER AL ORDERABLES [facility] [address] [place] [address] * (ABNORMAL) PROFILE AND VARICELLA (09/03/2007 15:48 [...] % Basophils 0.4 0.2 - 1.4 % [facility] ABS Neutrophils 5.32 2.20 - 8.85 K/cmm [facility] ABS Lymphs 2.12 1.09 - 3.30 K/cmm [facility] ABS Monocytes 0.67 0.1 - 0.8 K/cmm [facility] ABS Eosinophils 0.15 0.03 - 0.61 K/cmm [facility] ABS Basophils 0.03 0.01 - 0.11 K/cmm [facility] Type of Diff: Automated [facility] Hepatitis B Surface Ag Neg [facility] Syphilis Sero (RPR) NONREACT. NR Dils [facility] Rubella IgG Ab Antibody detected Assayed utilizing the Jeeves Immulite 2500. Values may vary with other methods. [facility] Varicella IgG Ab Antibody detected [facility] 09/03/2007 15:4 8 EDT 09/03/2007 15:50 EDT Shanique Eagle MD PACKAGES & DNA PROBE ORDERABLES Performing Organization Address City/[facility] Co de Phone Number [facility] [address] [place] [address] * CHLAMYDIA/GC AMPLIFIED PROBE (09/03/2007 15:11 EDT) Specimen Description Cervix [facility] Result No Chlamydia trachomatis or Neisseria gonorrhoeae DNA detected by solder making supervisor mediated amplification. [facility] Report Status Final [id number] [facility] 09/03/2007 15:1 1 EDT 09/03/2007 16:27 EDT Shanique Eagle MD MICROBIOLOGY - GENER AL ORDERABLES Performing Organization Address City/[facility] Co de Phone Number [facility] [address] [place] [address] * CYTOPATHOLOGY (09/03/2007 0:00 EDT) Pathology Report: CYTOPATHOLOGY REPORT Reports generated via electronic interface contain original data; however they are lacking the format of the original report. Caution should be taken when reading/interpreti ng unformatted reports. Name: ? TERI CROWE ? Accession #: ? [id number] : ? 1980 (Age: 27) ??F ?Collect Date: ? 09/03/2007 Location: ? [facility] ? Receive Date: ? 09/06/2007 Provider: ?SHANIQUE EAGLE MD Copy to: ? Specimen/Source: ?ThinPrep Pap Test, Cervix/Endocervix, processed on [employer] ThinPrep Imaging System, with manual evaluation Last [...] Eagle MD PATHOLOGY ORDERABLES [facility] [address] [place] [address] documented in this encounter Visit Diagnoses Not on filedocumented in this encounter Care Teams Die Maker Trim Relationship Specialty Start Date End Date Ladonna Maurer PA [address] [place] [address] PCP - General 05/20/10 06/02/11 documented as of this encounter
--- OUTSIDE RECORDS SUMMARY | 2024-07-15 01:34 | XMS_ITS | Encounter Summary ---
Author Organization [facility] Address [address] [place] [address] Care Team Providers Care Mortgage Analyst Name Role Phone Ladonna Maurer Primary Care Provider Yair Dow MD Primary Care Provider [phone] Unknown, Provider Primary Care Provider [phone] Ladonna Maurer Primary Care Provider [phone] Cara Arteaga MD Primary Care Provider Conor Angel MD Primary Care Provider [phone] None, Provider Primary Care Provider Kaylynn Pizarro MD Primary Care Provider [phone] Encounter Details Date Type Department Care Team (Late st Contact Info) Description 08/02/2010 Documentation Visit [facility] Bariatric Surgery - [place] [address] [place], [place] [phone] [address] Social History Tobacco Use [facility] - [address] [address] Micaela Hoff MD 111 [facility], Level 5 [place] [phone] documented as of this encounter Visit Diagnoses Not on filedocumented in this encounter Additional Health Concerns Infection Onset Date Last Indicated Resolved Time MRSA 10/20/2011 10/20/2011 documented as of this encounter Care Teams Mortgage Analyst Relationship Specialty Start Date End Date Ladonna Maurer PA [address] [place] [address] PCP - General 05/20/10 06/02/11 Yair Dow MD [address] [place] [address] [phone] PCP - General 06/03/11 03/08/12 Unknown, Provider, PCP - General 03/09/12 05/11/12 Ladonna Maurer PA [address] [place] [address] PCP - General 05/12/12 01/24/13 Cara Arteaga MD [address] [place] [address] PCP - General 01/25/13 02/06/14 Conor Angel MD [address] [place] [phone] PCP - General 02/07/14 06/08/14 None, Provider PCP - General 06/09/14 03/01/15 Kaylynn Gimenez MD [address] [place] [phone] PCP - General 03/02/15 documented as of this encounter
--- OUTSIDE RECORDS SUMMARY | 2024-07-15 01:34 | XMS_ITS | Encounter Summary ---
Author Organization [facility] Address [address] [place] [address] Care Team Providers Care Raw Scales Operator Name Role Phone Ladonna Maurer Primary Care Provider [phone] Reason for Visit * Reason Comments Obesity Encounter Details Date Type Department Care Team (Late st Contact Info) Description 12/25/2010 8:30 EST Nutrition [facility] Bariatric Surgery - [place] [address] [place] [address] Hypothyroid; Morbid obesity ([facility]); TAMMY (obstructive sleep apnea) Social History [...] encounter Miscellaneous Notes * Scanned Note-Null - Work Manager, Scan - 10/03/2011 1046 EST documented in this encounter Plan of Treatment Upcoming Encounters Date Type Department Care Team (Late st Contact Info) Description 12/29/2024 10:20 EST Office Visit [facility] Rheumatology & Immunology - [address] [address] Micaela Hoff MD 111 [facility], Level [address] [place] [address] documented as of this encounter Visit Diagnoses Diagnosis Hypothyroid Unspecified hypothyroidism Morbid obesity ([facility]) Morbid obesity TAMMY (obstructive sleep apnea) Obstructive sleep apnea (adult) (pediatric) documented in this encounter Care Teams Raw Scales Operator Relationship Specialty Start Date End Date Ladonna Maurer PA [address] [place] [address] PCP - General 05/20/10 06/02/11 documented as of this encounter
--- OUTSIDE RECORDS SUMMARY | 2024-07-15 01:34 | XMS_ITS | Encounter Summary ---
Author Organization [facility] Address [address] [place] [address] Care Team Providers Care Pharmacy Data Analyst Name Role Phone Ladonna Maurer Primary Care Provider [phone] Encounter Details Date Type Department Care Team (Late st Contact Info) Description 01/25/2008 Results Only [facility] Obstetrics & Midwifery - [address] [phone] Makeda Lucas MD [address] [place] [address] 4 [place] [phone] Social History Tobacco Use Types Packs/Day Years [...] [facility] Immunology - [address] [phone] Micaela Hoff MD [address] [place] [address] documented as of this encounter Procedures Procedure Name Priority Date/Time Associated Diagnosis Comments GLUCOSE-1HR GESTATIONAL SCREEN Routine 01/25/2008 17:45 EDT COMPLETE BLOOD COUNT Routine 01/25/2008 17:45 EDT documented in this encounter Results * GLUCOSE-1HR GESTATIONAL SCREEN (01/25/2008 17:45 EDT) Pathologist [facility] Glucose-1hr Gest Scn 95 50 - 135 mg/dl [facility] Comment: A one hour glucose greater than or equal to 135 mg/dl should be further evaluated with a formal three hour glucose tolerance test. Glucose Dose 50 g [facility] 01/25/2008 17:4 5 EDT 01/25/2008 17:47 EDT Makeda Lucas MD PACKAGES & DNA PROBE ORDERABLES Performing Organization Address City/[facility]/ZIP Co de Phone Number [facility] [address] [place] [address] * (ABNORMAL) HEMAGRAM (01/25/2008 17:45 EDT) Pathologist [facility] WBC 9.82 4.0 - 12.4 K/cmm [facility] [...] & PF4 ORD ERABLES Performing Organization Address City/[facility]/ZIP Co de Phone Number [facility] [address] [place] [address] documented in this encounter Visit Diagnoses Not on filedocumented in this encounter Care Teams Pharmacy Data Analyst Relationship Specialty Start Date End Date Ladonna Maurer PA [address] [place] [address] PCP - General 05/20/10 06/02/11 documented as of this encounter
--- OUTSIDE RECORDS SUMMARY | 2024-07-15 01:34 | XMS_ITS | Encounter Summary ---
Author Organization [facility] Address [address] [place] [address] Care Team Providers Care Dairy Chemist Name Role Phone Ladonna Maurer Primary Care Provider [phone] Reason for Visit * Reason Onset Date Comments Other 01/17/2011 Encounter Details Date Type Department Care Team (Late st Contact Info) Description 01/17/2011 Telephone [facility] Bariatric Surgery - [place] [address] [place] [address] Kristine Escamilla S, MASTER AUTOMOTIVE TECHNICIAN 61 [facility] [address] [phone] Other Social History Tobacco Use Types Packs/Day [...] [facility] Rheumatology & Immunology - [address] [address] Micaela Hoff MD 111 [facility], Level [address] [place] [phone] documented as of this encounter Visit Diagnoses Not on filedocumented in this encounter Care Teams Dairy Chemist Relationship Specialty Start Date End Date Ladonna Maurer PA [address] [place] [address] PCP - General 05/20/10 06/02/11 documented as of this encounter
--- OUTSIDE RECORDS SUMMARY | 2024-07-15 01:34 | XMS_ITS | Encounter Summary ---
Author Organization [facility] Address [address] [place] [address] Care Team Providers Care Pari Mutuel Ticket Cashier Name Role Phone Unavailable Primary Care Provider Unavailabl e Encounter Details Date Type Department Care Team (Latest Contact Info) Description 06/01/2008 15:43 EDT Hospital Encounter [address] [address] Shanique Eagle MD [address] [address] Discharge Disposition: Auto Discharge Social History Tobacco [...] Info) Description 12/29/2024 10:20 EST Office Visit [facility] Rheumatology & Immunology - [address] [address]85[address] Micaela Hoff MD [address] [place] [address], [address] [place] [phone] documented as of this encounter Visit Diagnoses Not on filedocumented in this encounter
--- OUTSIDE RECORDS SUMMARY | 2024-07-15 01:34 | XMS_ITS | Encounter Summary ---
Author Organization [facility] Address [address] [place] [address] Care Team Providers Care Regulatory Scientist Name Role Phone Ladonna Maurer Primary Care Provider [phone] Encounter Details Date Type Department Care Team (Latest Contact Info) Description 08/07/2010 10:00 EDT - 08/07/2010 23:59 EDT Hospital Encounter [facility] [place] [address] [place] [address] Skyler Blanco MD [address] [place] [phone] Discharge Disposition: Auto Discharge Social History [...] Visit [facility] Rheumatology & Immunology - [address] [address] Micaela Hoff MD 111 [facility], Level [address] [place] [address] documented as of this encounter Visit Diagnoses Not on filedocumented in this encounter Care Teams Regulatory Scientist Relationship Specialty Start Date End Date Ladonna Maurer PA [address] [place] [phone] PCP - General 05/20/10 06/02/11 documented as of this encounter
--- OUTSIDE RECORDS SUMMARY | 2024-07-15 01:34 | XMS_ITS | Encounter Summary ---
Author Organization [facility] Address [address] [place] [address] Care Team Providers Care Party Demonstrator Name Role Phone Ladonna Maurer Primary Care Provider [phone] Yair Dow MD Primary Care Provider [phone] Unknown, Provider Primary Care Provider [phone] Ladonna Maurer Primary Care Provider Cara Arteaga MD Primary Care Provider Conor Angel MD Primary Care Provider [phone] None, Provider Primary Care Provider Kaylynn Pizarro MD Primary Care Provider [phone] Encounter Details Date Type Department Care Team (Late st Contact Info) Description 08/28/2010 Documentation Visit [facility] Bariatric Surgery - [place] [address] [place], [place] [address] Kristine Escamilla, CHIPS SCREEN TENDER 61 [facility] [address] [place], [place] [address] Social History Tobacco Use Types Packs/Day Years [...] [facility] Rheumatology & Immunology - [facility] [address] [place] [address] Micaela Hoff MD 111 [facility], [address] [place] [phone] documented as of this encounter Visit Diagnoses Not on filedocumented in this encounter Additional Health Concerns Infection Onset Date Last Indicated Resolved Time MRSA 10/20/2011 10/20/2011 documented as of this encounter Care Teams Party Demonstrator Relationship Specialty Start Date End Date Ladonna Maurer PA [address] [place] [address] PCP - General 05/20/10 06/02/11 Yair Dow MD [address] [place] [address] [address] [place] [phone] PCP - General 06/03/11 03/08/12 Unknown, ProviderMD PCP - General 03/09/12 05/11/12 Ladonna Maurer PA [address] [place] [address] PCP - General 05/12/12 01/24/13 Cara Arteaga MD [address] [place] [phone] PCP - General 01/25/13 02/06/14 Conor Angel MD [address] [place] [address] PCP - General 02/07/14 06/08/14 None, Provider PCP - General 06/09/14 03/01/15 Kaylynn Gimenez MD [address] [place] [address] PCP - General 03/02/15 documented as of this encounter
--- OUTSIDE RECORDS SUMMARY | 2024-07-15 01:34 | XMS_ITS | Encounter Summary ---
Author Organization [facility] Address [address] [place] [address] Care Team Providers Care Foreman Or Supervisor And Operator Name Role Phone Unavailable Primary Care Provider Unavailabl e Encounter Details Date Type Department Care Team (Late st Contact Info) Description 06/08/2008 13:53 EDT Hospital Encounter [address] [address] [address], [place] [place] [address] Social History Tobacco Use Types Packs/Day Years [...] Office Visit [facility] Rheumatology & Immunology - [address] [address] Micaela Hoff MD 111 [facility], Level [address] [place] [phone] documented as of this encounter Procedures Procedure [...] ? TERI LAKE ? Accession #: ? [id number] ? : ? 1980 (Age: 28) ??F [...] MD PATHOLOGY HAIM PARKS Performing Organization Address City/State/[facility] Co de Phone Number [facility] [address] [place] [address] documented in this encounter Visit Diagnoses Not on filedocumented in this encounter Additional Health Concerns Infection Onset Date Last Indicated Resolved Time MRSA 10/20/2011 10/20/2011 documented as of this encounter
--- OUTSIDE RECORDS SUMMARY | 2024-07-15 01:34 | XMS_ITS | Encounter Summary ---
Author Organization [facility] Address [address] [place] [address] Care Team Providers Care Security Controls Assessor Name Role Phone Unavailable Primary Care Provider Unavailabl e Encounter Details Date Type Department Care Team (Latest Contact Info) Description 11/04/2007 16:06 EST Hospital Encounter [address] [address] Kenton Parrish MD Discharge Disposition: Auto Discharge [...] Visit [facility] Rheumatology & Immunology - [address] [phone] Micaela Hoff MD 111 [facility], Level 5 [place] [phone] documented as of this encounter Visit Diagnoses Not on filedocumented in this encounter
--- OUTSIDE RECORDS SUMMARY | 2024-07-15 01:34 | XMS_ITS | Encounter Summary ---
Author Organization [facility] Address [address] [place] [address] Care Team Providers Care Manager Sourcing Name Role Phone Ladonna Maurer Primary Care Provider [phone] Encounter Details Date Type Department Care Team (Late st Contact Info) Description 10/09/2010 Results Only [facility] Laboratory Services - [facility] [address] [place], [place] [address] Ladonna Maurer PA [address] [place], [place] [phone] Social History Tobacco Use Types Packs/Day Years [...] [facility] - [facility] [address] [place], [place] [address] Micaela Hoff MD [address] [facility], [address] [place] [address] documented as of this encounter [...] CROWE, TERI R ? Accession #: ? [id number] ? : ? 1980 (Age: 30) ??F [...] reviewed and electronically signed by: ? Beverly Lohman, CT(ASCP) ? Report Date: ??10/15/2010 14:01 ? End of Report ? [facility] 10/09/2010 10/10/2010 Ladonna AVILA PATHOLOGY ORDERABLES [facility] [address] [place] [address] documented in this encounter Visit Diagnoses Not on filedocumented in this encounter Care Teams Manager Sourcing Relationship Specialty Start Date End Date Ladonna Maurer PA [address] [place] [address] PCP - General 05/20/10 06/02/11 documented as of this encounter
--- OUTSIDE RECORDS SUMMARY | 2024-07-15 01:34 | XMS_ITS | Encounter Summary ---
Author Organization [facility] Address [address] [place] [address] Care Team Providers Care Mandarin Tutor Name Role Phone Unavailable Primary Care Provider Unavailabl e Encounter Details Date Type Department Care Team (Late st Contact Info) Description 11/01/2007 12:15 EST Hospital Encounter [address] [address] Kenton Parrish MD Social History Tobacco Use [...] [facility] Rheumatology & Immunology - [address] [address] Micaela Hoff MD [address] [place] [address], [address] [place] [phone] documented as of this encounter Visit Diagnoses Not on filedocumented in this encounter Additional Health Concerns Infection Onset Date Last Indicated Resolved Time MRSA 10/20/2011 10/20/2011 documented as of this encounter
--- OUTSIDE RECORDS SUMMARY | 2024-07-15 01:34 | XMS_ITS | Encounter Summary ---
Author Organization [facility] Address [address] [place] [address] Care Team Providers Care Space Technologist Name Role Phone Unavailable Primary Care Provider Unavailabl e Encounter Details Date Type Department Care Team (Latest Contact Info) Description 04/17/2008 15:44 EDT Hospital Encounter [facility] [address] [place] [address] Linda Bustillos MD Discharge Disposition: Auto Discharge [...] Visit [facility] Rheumatology & Immunology - [facility] [address] [place], [place] [address] Micaela Hoff MD 111 [facility], [address] [place] [address] documented as of this encounter Visit Diagnoses Not on filedocumented in this encounter
--- OUTSIDE RECORDS SUMMARY | 2024-07-15 01:34 | XMS_ITS | Encounter Summary ---
Author Organization [facility] Address [address] [place] [address] Care Team Providers Care Chute Operator Name Role Phone Ladonna Maurer Primary Care Provider [phone] Encounter Details Date Type Department Care Team (Late st Contact Info) Description 03/28/2008 Results Only [facility] Obstetrics & Midwifery - [address] [phone] Makeda Lucas MD [address] [place] [address] 4 [place] [address] Social History Tobacco Use Types [...] [facility] Rheumatology & Immunology - [address] [phone] Micaela Hoff MD [address] [place] [address] documented as of this encounter Procedures Procedure Name Priority Date/Time Associated Diagnosis Comments GROUP B STREP PCR Routine 03/28/2008 15: 56 EDT documented in this encounter Results * GROUP B STREPTOCOCCUS MOLECULAR DETECTION (03/28/2008 15:56 EDT) Specimen Description Vaginal and Rectal [facility] Result No Group B beta streptococcal DNA detected by PCR. [facility] Report Status Final [id number] [facility] 03/28/2008 15:5 6 EDT 03/28/2008 19:31 EDT Makeda Lucas MD MICROBIOLOGY - GENER AL ORDERABLES [facility] [address] [place] [address] documented in this encounter Visit Diagnoses Not on filedocumented in this encounter Care Teams Chute Operator Relationship Specialty Start Date End Date Ladonna Maurer PA [address] [place] [address] PCP - General 05/20/10 06/02/11 documented as of this encounter
--- OUTSIDE RECORDS SUMMARY | 2024-07-15 01:34 | XMS_ITS | Encounter Summary ---
Author Organization [facility] Address [address] [place] [address] Care Team Providers Care Housekeeper Caregiver Name Role Phone Unavailable Primary Care Provider Unavailabl e Encounter Details Date Type Department Care Team (Late st Contact Info) Description 12/21/2007 14:27 EST Hospital Encounter [address] [address] Makeda Lucas MD [address] [place] [address] 4 [place] [phone] Discharge Disposition: Auto Discharge Social History Tobacco [...] EST Office Visit [facility] Rheumatology & Immunology [address] [phone] Micaela Hoff MD [address] [place] [address] 5 [place] [phone] documented as of this encounter Procedures Procedure Name Priority Date/Time Associated Diagnosis Comments LONGTERM CERVICAL LENGTH 12/21/2007 1 6:15 EST documented in this encounter Results * LONGTERM CERVICAL LENGTH (12/21/2007 16:15 EST) Anatomical Region Laterality Modality Other 12/21/2007 16:1 5 EST Narrative 04/23/2009 4:28 EDT TRANSVAGINAL SCAN/CERVICAL LENGTH Please refer to the separate [facility] report. ??Contact Maternal Medicine. Procedure Note Shanique Eagle MD - 04/23/2009 TRANSVAGINAL SCAN/CERVICAL LENGTH Please refer to the separate [facility] report. Contact Maternal Medicine. Makeda Lucas MD IMG [facility] ORDERABLE S documented in this encounter Visit Diagnoses Not on filedocumented in this encounter
--- OUTSIDE RECORDS SUMMARY | 2024-07-15 01:34 | XMS_ITS | Encounter Summary ---
Author Organization [facility] Address [address] [place] [address] Care Team Providers Care Cathode Ray Tube Assembler Name Role Phone Ladonna Maurer Primary Care Provider Encounter Details Date Type Department Care Team (Late st Contact Info) Description 02/03/2011 Abstract [facility] Cardiology - [place] [address] [place] [address] Ladonna Maurer PA [address] [place] [phone] Social History Tobacco Use Types Packs/Day Years [...] [facility] - [address] [phone] Micaela Hoff MD 111 [facility], [address] [place] [address] documented as of this encounter Visit Diagnoses Not on filedocumented in this encounter Care Teams Cathode Ray Tube Assembler Relationship Specialty Start Date End Date Ladonna Maurer PA [address] [place] [address] PCP - General 05/20/10 06/02/11 documented as of this encounter
--- OUTSIDE RECORDS SUMMARY | 2024-07-15 01:34 | XMS_ITS | Encounter Summary ---
Author Organization [facility] Address [address] [place] [address] Care Team Providers Care Account Leader Name Role Phone Ladonna Maurer Primary Care Provider [phone] Reason for Visit * Reason Comments Goiter new patient Hypothyroidism Encounter Details Date Type Department Care Team (Latest Contact Info) Description 01/23/2011 14:40 EDT Office Visit [facility] Endocrinology - [address] [phone] Tawny Abrams MD [address] [place] [address] Hypothyroid; Mena's thyroiditis Social History Tobacco [...] OF ENDOCRINOLOGY CONSULTATION - 01/23/2011 Ladonna Maurer [address] [phone] Dear Ms Maurer: I had the pleasure of seeing your patient, Teri Haro, in consultation in the endocrine clinic today, , for goiter and hypothyroidism. 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 She admits that she has been eating [...] Abrams MD - Tawny Abrams MD - [facility] Job ID: SM Doc ID: [id number] Ext Doc ID: [id number] cc: AUSTIN Silva documented in this encounter Miscellaneous Notes * Scanned Note-Null - Inpatient, Physician - 01/30/2011 1145 EDTAssociated Order(s): RADIOLOGY - SCANNED documented in this encounter Plan of Treatment Upcoming Encounters Date Type Department Care Team (Late st Contact Info) Description 12/29/2024 10:20 EST Office Visit [facility] Rheumatology & Immunology - [address] [address] Micaela Hoff MD [address] [place] [address], Level [address] [place] [address] Scheduled Orders Name Type Priority [...] 06/12/2011 added in this encounter Care Teams Account Leader Relationship Specialty Start Date End Date Ladonna Maurer PA [address] [place] [address] PCP - General 05/20/10 06/02/11 documented as of this encounter
--- OUTSIDE RECORDS SUMMARY | 2024-07-15 01:34 | XMS_ITS | Encounter Summary ---
Author Organization [facility] Address [address] [place] [address] Care Team Providers Care Drawbench Operator Helper Name Role Phone Ladonna Maurer Primary Care Provider Reason for Visit * Reason Onset Date Comments Other 01/14/2011 no showed appt Encounter Details Date Type Department Care Team (Late st Contact Info) Description 01/14/2011 Telephone [facility] Bariatric Surgery - [place] [address] [place] [address] Kristine Escamilla, HUANG 61 [facility] [address] [address] Other (no showed appt) Social [...] No Showed appt today with Kristine Escamilla NURSE AIDE. Call pt and left message with machine to call backand RS. documented in this encounter Plan of Treatment Upcoming Encounters Date Type Department Care Team (Late st Contact Info) Description 12/29/2024 10:20 EST Office Visit [facility] Rheumatology & Immunology - [address] [address] Micaela Hoff MD 111 [facility], [address] [place] [phone] documented as of this encounter Visit Diagnoses Not on filedocumented in this encounter Care Teams Drawbench Operator Helper Relationship Specialty Start Date End Date Ladonna Maurer PA [address] [place] [address] PCP - General 05/20/10 06/02/11 documented as of this encounter
--- OUTSIDE RECORDS SUMMARY | 2024-07-15 01:34 | XMS_ITS | Encounter Summary ---
Author Organization [facility] Address [address] [place] [address] Care Team Providers Care Laboratory Veterinarian Name Role Phone Ladonna Maurer Primary Care Provider [phone] Reason for Visit * Reason Comments Obesity pre op Encounter Details Date Type Department Care Team (Late st Contact Info) Description 08/29/2010 10:45 EDT Office Visit [facility] Bariatric Surgery - [place] [address] [place], [place] [phone] Skyler Blanco MD [address] [place] [address] GERD (gastroesophageal reflux disease); Morbid obesity ([facility]) Social History Tobacco Use Types Packs/Day [...] encounter Miscellaneous Notes * Scanned Note-Null - Elderly Companion, Scan - 08/28/2011 1109 EDT documented in this encounter Plan of Treatment Upcoming Encounters Date Type Department Care Team (Late st Contact Info) Description 12/29/2024 10:20 EST Office Visit [facility] Rheumatology & Immunology - [address] [address]66[address] Micaela Hoff MD [address] [place] [address], [address] [place] [address] Scheduled Orders Name Type Priority Associated Diagnoses Orde r Schedule UPPER ENDOSCOPY GI Routine GERD (gastroesophageal reflux disease) Morbid obesity ([facility]) Ordered: 08/29/2010 documented as of this encounter Visit Diagnoses Diagnosis GERD (gastroesophageal reflux disease) Esophageal reflux Morbid obesity ([facility]) Morbid obesity documented in this encounter [...] 02/06/2011 added in this encounter Care Teams Laboratory Veterinarian Relationship Specialty Start Date End Date Ladonna Maurer PA [address] [place] [address] PCP - General 05/20/10 06/02/11 documented as of this encounter
--- OUTSIDE RECORDS SUMMARY | 2024-07-15 01:34 | XMS_ITS | Encounter Summary ---
Author Organization [facility] Address [address] [place] [address] Care Team Providers Care Disability Hearing Officer Name Role Phone Unavailable Primary Care Provider Unavailabl e Encounter Details Date Type Department Care Team (Latest Contact Info) Description 03/13/2008 15:17 EDT Hospital Encounter [address] [address] Linda Bustillos MD Discharge Disposition: Auto Discharge [...] [facility] Rheumatology & Immunology - [place] [facility] [address] [place], [place] [address] Micaela Hoff MD 111 [facility], [address] [place] [address] documented as of this encounter Visit Diagnoses Not on filedocumented in this encounter
--- OUTSIDE RECORDS SUMMARY | 2024-07-15 01:34 | XMS_ITS | Encounter Summary ---
Author Organization [facility] Address [address] [place] [address] Care Team Providers Care Chemistry Research Assistant Name Role Phone Unavailable Primary Care Provider Unavailabl e Encounter Details Date Type Department Care Team (Late st Contact Info) Description 09/10/2007 14:50 EST Hospital Encounter [address] [address] Magda Tejada MD [address] [place] [phone] Social History Tobacco Use Types Packs/Day Years [...] [facility] Rheumatology & Immunology - [address] 0280[address] Micaela Hoff MD [address] [facility], [address] [place] [phone] documented as of this encounter Procedures Procedure Name Priority Date/Time Associated Diagnosis Comments ALF VIABILITY 09/27/2007 13:44 EST documented in this encounter Results * ALF VIABILITY (09/27/2007 13:44 EST) Anatomical Region Laterality Modality Other 09/27/2007 13:4 4 EST Narrative 04/23/2009 2:43 EDT bleeding first trimester inc cervix Please refer to the separate [facility] report. ??Contact Maternal Medicine. Procedure Note Robb Nam MD - 04/23/2009 bleeding first trimester inc cervix Please refer to the separate [facility] report. Contact Maternal Medicine. Robb Nam MD IMG [facility]F ORDER HEATH documented in this encounter Visit Diagnoses Not on filedocumented in this encounter Additional Health Concerns Infection Onset Date Last Indicated Resolved Time MRSA 10/20/2011 10/20/2011 documented as of this encounter
--- OUTSIDE RECORDS SUMMARY | 2024-07-15 01:34 | XMS_ITS | Encounter Summary ---
Author Organization [facility] Address [address] [place] [address] Care Team Providers Care Store Team Leader Name Role Phone Unavailable Primary Care Provider Unavailabl e Encounter Details Date Type Department Care Team (Latest Contact Info) Description 10/31/2007 10:15 EST - 10/31/2007 11:59 EST Hospital Encounter [facility] Emergency Department - [address] [address] Emergency, MD Fede Discharge Disposition: Home or [...] [facility] - [address] [address] Micaela Hoff MD [address] [place] [address], [address] [place] [phone] documented as of this encounter Visit Diagnoses Not on filedocumented in this encounter
--- OUTSIDE RECORDS SUMMARY | 2024-07-15 01:34 | XMS_ITS | Encounter Summary ---
Author Organization [facility] Address [address] [place] [address] Care Team Providers Care Silk Presser Name Role Phone Unavailable Primary Care Provider Unavailabl e Encounter Details Date Type Department Care Team (Latest Contact Info) Description 02/22/2008 14:29 EDT Hospital Encounter [address] [address] Shanique Eagle MD [address] [address] Discharge Disposition: Auto Discharge Social History Tobacco [...] [facility] Rheumatology & Immunology - [address] [address] Micaela Hoff MD [address] [place] [address], [address] [place] [phone] documented as of this encounter Procedures Procedure Name Priority Date/Time Associated Diagnosis Comments PENITENTIARY FOLLOW-UP 02/22/2008 16:21 EDT documented in this encounter Results * PENITENTIARY FOLLOW-UP (02/22/2008 16:21 EDT) Anatomical Region Laterality Modality Other 02/22/2008 16:2 1 EDT Narrative 04/15/2009 13:51 EDT FOLLOW UP,37801/GROWTH/UTERINE SIZE/DATES MISMATCH Please refer to the separate [facility] report. ??Contact Maternal Medicine. Procedure Note Kenton Parrish MD - 04/15/2009 FOLLOW UP,05102/GROWTH/UTERINE SIZE/DATES MISMATCH Please refer to the separate [facility] report. Contact Maternal Medicine. Magda Tejada MD IMG [facility] ORDERABLE S documented in this encounter Visit Diagnoses Not on filedocumented in this encounter
--- OUTSIDE RECORDS SUMMARY | 2024-07-15 01:34 | XMS_ITS | Encounter Summary ---
Author Organization [facility] Address [address] [place] [address] Care Team Providers Care Filler Shredding Machine Loader Name Role Phone Unavailable Primary Care Provider Unavailabl e Encounter Details Date Type Department Care Team (Latest Contact Info) Description 04/09/2008 6:52 EDT - 04/09/2008 11:59 EDT Hospital Encounter [facility] Birthing Center Unit [address] [place] [address] Linda Bustillos MD Discharge Disposition: Home or [...] [facility] Immun[facility] - [facility] [address] [place], [place] [address] Micaela Hoff MD [address] [facility], [address] [place] [address] documented as [...] MD URINALYSIS ORDERABLE S Performing Organization Address City/[facility] Co de Phone Number [facility] [address] [place] [address] * (ABNORMAL) URINALYSIS (04/09/2008 7:55 EDT) Color, UA Yellow [facility] Clarity, UA Clear [facility] Glucose, UA Norm NORM [facility] Bilirubin, UA Neg NEG [facility] Ketones, UA Neg NEG [facility] Specific [place], Urine 1.015 1.005 - 1.02 [facility] Blood, UA Trace(A) NEG [facility] pH, UA 6.5 5.0 - 9.0 [facility] Protein, UA Neg NEG [facility] Urobilinogen, UA Norm NORM mg/dL [facility] Nitrite, UA Neg NEG [facility] Leuk Esterase Trace(A) NEG [facility] 04/09/2008 7:55 EDT 04/09/2008 8:05 EDT Linda Bustillos MD URINALYSIS ORDERABLE S [facility] [address] [place] [address] documented in this encounter Visit Diagnoses Not on filedocumented in this encounter
--- OUTSIDE RECORDS SUMMARY | 2024-07-15 01:34 | XMS_ITS | Encounter Summary ---
Author Organization [facility] Address [address] [place] [address] Care Team Providers Care Splitting Machine Operator Helper Name Role Phone Unavailable Primary Care Provider Unavailabl e Encounter Details Date Type Department Care Team (Late st Contact Info) Description 03/28/2008 15:53 EDT Hospital Encounter [address] [address] Makeda Lucas MD [address] [place] [address] 4 [place] [phone] Discharge Disposition: Auto Discharge Social History Tobacco [...] Visit [facility] Rheumatology & Immunology [address] [address] Micaela Hoff MD [address] [place] [address] 5 [place] [phone] documented as of this encounter Visit Diagnoses Not on filedocumented in this encounter
--- OUTSIDE RECORDS SUMMARY | 2024-07-15 01:34 | XMS_ITS | Encounter Summary ---
Author Organization [facility] Address [address] [place] [address] Care Team Providers Care Cassandra Consultant Name Role Phone Ladonna Maurer Primary Care Provider [phone] Encounter Details Date Type Department Care Team (Late st Contact Info) Description 11/01/2007 Results Only [facility] Obstetrics & Midwifery - [address] [address] Kenton Parrish MD Social History Tobacco Use [...] [facility] Rheumatology & Immunology - [address] [address] Micaela Hoff MD [address] [place] [address], [address] [place] [phone] documented as of this encounter Procedures Procedure [...] AND SEROL OGY ORDERABLES Performing Organization Address [facility] Co de Phone Number [facility] [address] [place] [address] * GLUCOSE-1HR GESTATIONAL SCREEN (11/01/2007 13:23 EST) [...] & DNA PROBE ORDERABLES Performing Organization Address [facility] de Phone Number [facility] [address] [place] [address] documented in this encounter Visit Diagnoses Not on filedocumented in this encounter Care Teams Cassandra Consultant Relationship Specialty Start Date End Date Ladonna Maurer PA [address] [place] [address] PCP - General 05/20/10 06/02/11 documented as of this encounter
--- OUTSIDE RECORDS SUMMARY | 2024-07-15 01:34 | XMS_ITS | Encounter Summary ---
Author Organization [facility] Address [address] [place] [address] Care Team Providers Care Mobile Service Rv Technician Name Role Phone Ladonna Maurer Primary Care Provider Reason for Referral * (Routine) - Closed Specialty Diagnoses / Procedures Referred By Contac t Referred To Contact Diagnoses Hypothyroid Morbid obesity (HCC-CMS) TAMMY (obstructive sleep apnea) Procedures HEMOGLOBIN A1C Kristine Escamilla, HUANG [address] [place] [phone] Referral ID Status Reason Start Date Expiration Date Visits Re quested Visits Authorized [id number] Closed 11/27/2010 1 1 * (Routine) - Closed Specialty Diagnoses / Procedures Referred By Contac t Referred To Contact Diagnoses Hypothyroid Morbid obesity (HCC-CMS) TAMMY (obstructive sleep apnea) Procedures VITAMIN D (25,OH) Kristine Escamilla, HUANG [address] [place] [phone] Referral ID Status Reason Start Date Expiration Date Visits Re quested Visits Authorized [id number] Closed 11/27/2010 1 1 * (Routine) - Closed Specialty Diagnoses / Procedures Referred By Contac t Referred To Contact Diagnoses Hypothyroid Morbid obesity (HCC-CMS) TAMMY (obstructive sleep apnea) Procedures LIVER FUNCTION TESTS Kristine Escamilla APRN [address] [place] [phone] Referral ID Status Reason Start Date Expiration Date Visits Re quested Visits Authorized [id number] Closed 11/27/2010 1 1 * (Routine) - Closed Specialty Diagnoses / Procedures Referred By Contac t Referred To Contact Diagnoses Hypothyroid Morbid obesity (HCC-CMS) TAMMY (obstructive sleep apnea) Procedures HEMAGRAM Kristine Escamilla, SUPERVISOR [employer] [address] [place] [phone] Referral ID Status Reason Start Date Expiration Date Visits Re quested Visits Authorized [id number] Closed 11/27/2010 1 1 * (Routine) - Closed Specialty Diagnoses / Procedures Referred By Contac t Referred To Contact Diagnoses Hypothyroid Morbid obesity (HCC-CMS) TAMMY (obstructive sleep apnea) Procedures [facility] Kristine Escamilla, SUPERVISOR TRANSCRIBING [employer]PER[employer] [address] [place] [phone] Referral ID Status Reason Start Date Expiration Date Visits Re quested Visits Authorized [id number] Closed 11/27/2010 1 1 Reason for Visit * Reason Comments Obesity pre op Encounter Details Date Type Department Care Team (Late st Contact Info) Description 11/27/2010 10:00 EST Office Visit [facility] Bariatric Surgery - [place] [address] [place] [address] Kristine Escamilla, SUPERVISOR TRANSCRIBING [employer]PERATORS[address] [phone] Hypothyroid; Morbid obesity (HCC-CMS); TAMMY (obstructive sleep [...] - 11/27/2010 1025 EST LADONNA MAURER [address] [facility] [address] [place] [address] Dear Erasto : Thank you for referring [...] does not currently use illicit drugs. 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. For exercise Teri is struggling with chronic pain of chronic sinus infection so hoping that with treatment she will be able to start exercising. . Teri met with our program cloth dye range operator for 30 minutes to review preoperative dietary recommendations.I did consult our cloth dye range operator following her visit with the patient [...] visit in discussion of possible short and long term care social worker risks and complications of bariatric surgery as [...] [facility] Rheumatology & Immunology - [address] [address] Micaela Hoff MD [address] [place] [address], [address] [place] [address] documented as of this encounter [...] 12:14 EST 11/27/2010 12:16 EST Kristine Escamilla SUPERVISOR [employer]ING [employer]PER[employer] CHEMISTRY & BLOOD GAS ORDERABLES [facility] [address] [place] [address] * VITAMIN D (25,OH) (11/27/2010 12:14 EST) 25OH Vitamin D Tot 14.8 ng/ml [facility] Comment: Reference Range: <10 ng/ml: Deficient 10-30 ng/ml: Insufficient 30-100 ng/ml: Sufficient >100 ng/ml: Toxic Blood specimen (specimen) 11/27/2010 12:14 EST 11/27/2010 12:16 EST Kristine Escamilla APRN CHEMISTRY & BLOOD GAS ORDERABLES Performing Organization Address [facility] de Phone Number [facility] [address] [place] [address] * LIVER FUNCTION TESTS (11/27/2010 12:14 EST) [...] & BLOOD GAS ORDERABLES Performing Organization Address [facility] Co de Phone Number [facility] [address] [place] [address] * HEMAGRAM (11/27/2010 12:14 EST) Pathologist [facility] [...] HEMATOLOGY & PF4 ORDERABLES Performing Organization Address [facility] Co de Phone Number [facility] [address] [place] [address] * CREATININE (11/27/2010 12:14 EST) Creatinine 0.86 0.7 - 1.5 mg/dl [facility] GFR, Calculated >60 ml/min/1.7 3m2 [facility] Blood specimen (specimen) 11/27/2010 12:14 EST 11/27/2010 12:16 EST Kristine Escamilla APRN CHEMISTRY & BLOOD GAS ORDERABLES Performing Organization Address City/[facility] de Phone Number [facility] [address] [place] [address] documented in this encounter Visit Diagnoses Diagnosis Hypothyroid Unspecified hypothyroidism Morbid obesity ([facility]) Morbid obesity TAMMY (obstructive sleep apnea) Obstructive [...] documented as of this encounter Care Teams Mobile Service Rv Technician Relationship Specialty Start Date End Date Ladonna Maurer PA [address] [place] [address] PCP - General 05/20/10 06/02/11 documented as of this encounter
--- OUTSIDE RECORDS SUMMARY | 2024-07-15 01:34 | XMS_ITS | Encounter Summary ---
Author Organization [facility] Address [address] [place] [address] Care Team Providers Care Land Clearer Name Role Phone Unavailable Primary Care Provider Unavailabl e Encounter Details Date Type Department Care Team (Latest Contact Info) Description 11/29/2007 15:47 EST Hospital Encounter [address] [address] Linda Bustillos MD Discharge Disposition: Auto Discharge [...] [facility] Rheumatology & Immunology - [address] 908[address] Micaela Hoff MD [address] [place] [address], [address] [place] [phone] documented as of this encounter Procedures Procedure Name Priority Date/Time Associated Diagnosis Comments SENIOR CARE CERVICAL LENGTH 11/29/2007 1 7:46 EST documented in this encounter Results * SENIOR CARE CERVICAL LENGTH (11/29/2007 17:46 EST) Anatomical Region Laterality Modality Other 11/29/2007 17:4 6 EST Narrative 04/23/2009 3:50 EDT CERVICAL LENGTH 66524, H/O SEPTUM W/REPAIR, H/O 20 WK LOSS Please refer to the separate [facility] report. ??Contact [facility]aternal [facility]. Procedure Note Makeda Lucas MD - 04/23/2009 CERVICAL LENGTH [address]7512, H/O SEPTUM W/REPAIR, H/O 20 WK LOSS Please refer to the separate [facility] report. Contact [facility]aternal Medicine. Magda Tejada MD IMG SENIOR CARE ORDERABLE S documented in this encounter Visit Diagnoses Not on filedocumented in this encounter
--- OUTSIDE RECORDS SUMMARY | 2024-07-15 01:34 | XMS_ITS | Encounter Summary ---
Author Organization [facility] Address [address] [place] [address] Care Team Providers Care Board Certified Orthodontist Name Role Phone Ladonna Maurer Primary Care Provider Reason for Visit * Reason Onset Date Comments Prior Auth, Other (i.e. radiology, etc.) 010 Encounter Details Date Type Department Care Team (Late st Contact Info) Description 08/29/2010 Telephone [facility] GENERAL SURGERY [address] [place] [address] Skyler Blanco MD [address] [place] [phone] Prior Auth, Other (i.e. radiology, etc.) [...] 1514 EDT DOS - 09/03/2010 - CPT 60624 - Gerd Morbid Obesity Pre-op - [employer] - Elizabeth PA documented in this encounter Plan of Treatment Upcoming Encounters Date Type Department Care Team (Late st Contact Info) Description 12/29/2024 10:20 EST Office Visit [facility] Rheumatology & Immunology - [address] [address] Micaela Hoff MD [address] [place] [address], [address] [place] [phone] documented as of this encounter Visit Diagnoses Not on filedocumented in this encounter Care Teams Board Certified Orthodontist Relationship Specialty Start Date End Date Ladonna Maurer PA [address] [place] [address] PCP - General 05/20/10 06/02/11 documented as of this encounter
--- OUTSIDE RECORDS SUMMARY | 2024-07-15 01:34 | XMS_ITS | Encounter Summary ---
Author Organization [facility] Address [address] [place] [address] Care Team Providers Care Salesperson Fashion Accessories Name Role Phone Ladonna Maurer Primary Care Provider Encounter Details Date Type Department Care Team (Late st Contact Info) Description 09/03/2010 Results Only [facility] Bariatric Surgery - [place] [address] [place], [place] [address] Rosita Blanco MD [address] [place] [phone] Social History Tobacco Use Types Packs/Day Years [...] [facility] Rheumatology & Immunology - [facility] [address] [place], [place] 4[address] Micaela Hoff MD [address] [facility], [address] [place] [address] documented as of this encounter [...] HARO, TERI R ? Accession #: ? [id number] ? : ? 1980 (Age: 30) ??F [...] ??performance ? characteristics have been determined by [facility]. ??This ? laboratory is certified under the [...] in toto as (A). ? Received in [employer]'s solution labelled Haro, Teri and stomach are two ? pink- irregular soft tissues, 0.1 x 0.1 x 0.1 cm and 0.3 x 0.3 x 0.2 cm. ? Submitted in toto as (B). ? Received in [employer]'s solution labelled Haro, Teri and GE junction is a ?? single 0.2 x 0.2 x 0.2 cm pink- irregular soft tissue. ??Submitted in toto as (C). ??(Yvonne Mcdaniel)/natan ? End of Report ? [facility] 09/03/2010 09/03/2010 14: 00 EDT Rosita Blanco MD PATHOLOGY OR DERABLES [facility] [address] [place] [address] documented in this encounter Visit Diagnoses Not on filedocumented in this encounter Care Teams Salesperson Fashion Accessories Relationship Specialty Start Date End Date Ladonna Maurer PA [address] [place] [address] PCP - General 05/20/10 06/02/11 documented as of this encounter
--- OUTSIDE RECORDS SUMMARY | 2024-07-15 01:34 | XMS_ITS | Encounter Summary ---
Author Organization [facility] Address [address] [place] [address] Care Team Providers Care Ship Liner Name Role Phone Ladonna Maurer Primary Care Provider [phone] Reason for Visit * Reason Onset Date Comments Other 12/27/2010 Encounter Details Date Type Department Care Team (Late Contact Info) Description 12/27/2010 Telephone [facility] Bariatric Surgery - [address] [address] Alesha Russo, RN [address] [place] [address] Other Social History Tobacco Use Types Packs/Day [...] Per Dr. Blanco: New script called to [facility]. Nexium 40 mg capsule; take one daily x 90 days. 2 refills. Patient aware documented in this encounter Plan of Treatment Upcoming Encounters Date Type Department Care Team (Late Contact Info) Description 12/29/2024 10:20 EST Office Visit [facility] Rheumatology & Immunology - [address] [address] Micaela Hoff MD 111 [facility], [address] [place] [phone] documented as of this encounter Visit Diagnoses Not on filedocumented in this encounter Care Teams Ship Liner Relationship Specialty Start Date End Date Ladonna Maurer PA [address] [place] [address] [phone] PCP - General 05/20/10 06/02/11 documented as of this encounter
--- OUTSIDE RECORDS SUMMARY | 2024-07-15 01:34 | XMS_ITS | Encounter Summary ---
Author Organization [facility] Address [address] [place] [address] Care Team Providers Care Sausage Cutter Name Role Phone Unavailable Primary Care Provider Unavailabl e Encounter Details Date Type Department Care Team (Latest Contact Info) Description 04/03/2008 14:22 EDT Hospital Encounter [address] [address] Linda Bustillos MD Discharge Disposition: Auto Discharge [...] [facility] [address] [place], [place] [address] Micaela Hoff MD [address] [facility], [address] [place] [address] documented as of this encounter Visit Diagnoses Not on filedocumented in this encounter
--- OUTSIDE RECORDS SUMMARY | 2024-07-15 01:34 | XMS_ITS | Encounter Summary ---
Author Organization [facility] Address [address] [place] [address] Care Team Providers Care Pipe Layer Name Role Phone Unavailable Primary Care Provider Unavailabl e Encounter Details Date Type Department Care Team (Late st Contact Info) Description 01/11/2008 13:52 EDT Hospital Encounter [address] [address] Makeda Lucas MD [address] [place] [address] [address] [place] [phone] Discharge Disposition: Auto Discharge Social History Tobacco [...] [facility] Rheumatology & Immunology [address] [address]781 Micaela Hoff MD [address] [place] [address] [address] [place] [phone] documented as of this encounter Visit Diagnoses Not on filedocumented in this encounter
--- OUTSIDE RECORDS SUMMARY | 2024-07-15 01:34 | XMS_ITS | Encounter Summary ---
Author Organization [facility] Address [address] [place] [address] Care Team Providers Care Hydrodynamics Teacher Name Role Phone Ladonna Maurer Primary Care Provider [phone] Encounter Details Date Type Department Care Team (Late st Contact Info) Description 12/14/2007 Results Only [facility] Obstetrics & Midwifery - [address] [phone] Makeda Lucas MD [address] [place] [address] [address] [place] [phone] Social History Tobacco Use Types Packs/Day Years [...] [facility] Rheumatology & Immunology - [address] [phone] Micaela Hoff MD [address] [place] [address] 5 [place] [phone] documented as of this encounter Procedures Procedure [...] GA S ORDERABLES [facility] [address] [place] [address] documented in this encounter Visit Diagnoses Not on filedocumented in this encounter Care Teams Hydrodynamics Teacher Relationship Specialty Start Date End Date Ladonna Maurer PA [address] [place] [address] PCP - General 05/20/10 06/02/11 documented as of this encounter
--- OUTSIDE RECORDS SUMMARY | 2024-07-15 01:34 | XMS_ITS | Encounter Summary ---
Author Organization [facility] Address [address] [place] [address] Care Team Providers Care Cutting Table Operator Name Role Phone Unavailable Primary Care Provider Unavailabl e Encounter Details Date Type Department Care Team (Latest Contact Info) Description 01/06/2008 15:48 EST Hospital Encounter [address] [address] Kenton Parrish MD Discharge Disposition: Auto Discharge [...] [facility] Rheumatology & Immunology - [address] 404391 Micaela Hoff MD [address] [facility], [address] [place] [phone] documented as of this encounter Visit Diagnoses Not on filedocumented in this encounter
--- OUTSIDE RECORDS SUMMARY | 2024-07-15 01:34 | XMS_ITS | Encounter Summary ---
Author Organization [facility] Address [address] [place] [address] Care Team Providers Care Television News Photographer Name Role Phone Ladonna Maurer Primary Care Provider [phone] Reason for Visit * Reason Onset Date Comments Results 02/11/2011 Encounter Details Date Type Department Care Team (Late st Contact Info) Description 02/11/2011 Telephone [facility] Cardiology - [facility] [address] [place], [place] [address] Jose Manuel Benjamin MD 111 [facility] [address] [place] [address] Results Social History Tobacco Use [...] is indicated. Jose Manuel Benjamin Jr. MD Tax Managerrepair electric motor assembler [facility] Pager # [phone] documented in this encounter Plan of Treatment Upcoming Encounters Date Type Department Care Team (Late st Contact Info) Description 12/29/2024 10:20 EST Office Visit [facility] Rheumatology & Immunology - [address] [address] Micaela Hoff MD [address] [place] [address], [address] [place] [phone] documented as of this encounter Visit Diagnoses Not on filedocumented in this encounter Care Teams Television News Photographer Relationship Specialty Start Date End Date Ladonna Maurer PA [address] [place] [phone] PCP - General 05/20/10 06/02/11 documented as of this encounter
--- OUTSIDE RECORDS SUMMARY | 2024-07-15 01:34 | XMS_ITS | Encounter Summary ---
Author Organization [facility] Address [address] [place] [address] Care Team Providers Care Inspector Paper Products Name Role Phone Unavailable Primary Care Provider Unavailabl e Encounter Details Date Type Department Care Team (Late st Contact Info) Description 02/08/2008 15:13 EDT Hospital Encounter [address] [address] Gracia Correa MD [address] [place] [address] [address] [place] [phone] Discharge Disposition: Auto Discharge Social History Tobacco [...] 12/29/2024 10:20 EST Office Visit [facility] Rheumatology & Immunology [address] [address] Micaela Hoff MD [address] [place] [address] 5 [place] [phone] documented as of this encounter Visit Diagnoses Not on filedocumented in this encounter
--- OUTSIDE RECORDS SUMMARY | 2024-07-15 01:34 | XMS_ITS | Encounter Summary ---
Author Organization [facility] Address [address] [place] [address] Care Team Providers Care Product Safety Consultant Name Role Phone Unavailable Primary Care Provider Unavailabl e Encounter Details Date Type Department Care Team (Latest Contact Info) Description 01/28/2008 18:00 EDT Hospital Encounter [facility] Birthing Center Unit [address] [place] [address] Linda Bustillos MD Discharge Disposition: Home or [...] [facility] Immun[facility] - [facility] [address] [place], [place] [address] Micaela Hoff MD 111 [facility], [address] [place] [phone] documented as of this encounter Visit Diagnoses Not on filedocumented in this encounter
--- OUTSIDE RECORDS SUMMARY | 2024-07-15 01:34 | XMS_ITS | Encounter Summary ---
Author Organization [facility] Address [address] [place] [address] Care Team Providers Care Car Dumper Name Role Phone Unavailable Primary Care Provider Unavailabl e Encounter Details Date Type Department Care Team (Latest Contact Info) Description 10/07/2007 15:46 EST Hospital Encounter [address] [address] Kenton Parrish MD Discharge Disposition: Auto Discharge [...] [facility]ology - [address] [address]36[address] Micaela Hoff MD 111 [facility], [address] [place] [phone] documented as of this encounter Visit Diagnoses Not on filedocumented in this encounter
--- OUTSIDE RECORDS SUMMARY | 2024-07-15 01:34 | XMS_ITS | Encounter Summary ---
Author Organization Health system Address [address] [place] [address] Care Team Providers Care Tuckpointer Name Role Phone Ladonna Maurer Primary Care Provider [phone] Encounter Details Date Type Department Care Team (Latest Contact Info) Description 09/03/2010 6:35 EDT - 09/03/2010 23:59 EDT Hospital Encounter [facility] [address] [place] [address] Skyler Blanco MD [address] [place] [phone] Discharge Disposition: Home or Self Care [...] or Self Retirement documented in this encounter Progress Notes * [...] [facility] Rheumatology & Immunology - [address] [phone] Micaela Hoff MD [address] [place] [address], [address] [place] [address] documented as of this encounter [...] PROCEDURE/MINOR S URGICAL ORDERABLES Performing Organization Address City/[facility] Co de Phone Number POINT OF CARE * ORDERS - SCANNED (09/04/2010 10:10 EDT) 09/04/2010 10:1 0 EDT Narrative Procedure Note Inpatient, Physician - 09/03/2010 0:00 EDT Physician Inpatient MD ADMISSION ORDERAB LES Performing Organization Address [facility] Co de Phone Number POINT OF CARE * PATHOLOGY - SCANNED (09/04/2010 10:10 EDT) 09/04/2010 10:1 0 EDT Narrative Procedure Note Inpatient, Physician - 09/03/2010 0:00 EDT Physician Inpatient MD LAB INFO SERVICE AND SUPPORT & PHONE RESULT Performing Organization Address [facility] Co de Phone Number POINT OF CARE documented in this encounter Visit Diagnoses Not on filedocumented in this encounter Care Teams Tuckpointer Relationship Specialty Start Date End Date Ladonna Maurer PA [address] [place] [address] PCP - General 05/20/10 06/02/11 documented as of this encounter
--- OUTSIDE RECORDS SUMMARY | 2024-07-15 01:34 | XMS_ITS | Encounter Summary ---
Author Organization [facility] Address [address] [place] [address] Care Team Providers Care Triage Assistant Name Role Phone Ladonna Maurer Primary Care Provider Reason for Referral * (Routine) - Closed Specialty Diagnoses / Procedures Referred By Contac t Referred To Contact Diagnoses Hypothyroid Morbid obesity (HCC-CMS) TAMMY (obstructive sleep apnea) Procedures HEMOGLOBIN A1C Kristine Escamilla, HUANG [address] [place] [phone] Referral ID Status Reason Start Date Expiration Date Visits Re quested Visits Authorized [id number] Closed 11/27/2010 1 1 * (Routine) - Closed Specialty Diagnoses / Procedures Referred By Contac t Referred To Contact Diagnoses Hypothyroid Morbid obesity (HCC-CMS) TAMMY (obstructive sleep apnea) Procedures VITAMIN D (25,OH) Kristine Escamilla, HUANG [address] [place] [phone] Referral ID Status Reason Start Date Expiration Date Visits Re quested Visits Authorized [id number] Closed 11/27/2010 1 1 * (Routine) - Closed Specialty Diagnoses / Procedures Referred By Contac t Referred To Contact Diagnoses Hypothyroid Morbid obesity (HCC-CMS) TAMMY (obstructive sleep apnea) Procedures LIVER FUNCTION TESTS Kristine Escamilla APRN [address] [place] [address] [phone] Referral ID Status Reason Start Date Expiration Date Visits Re quested Visits Authorized [id number] Closed 11/27/2010 1 1 * (Routine) - Closed Specialty Diagnoses / Procedures Referred By Contac t Referred To Contact Diagnoses Hypothyroid Morbid obesity (HCC-CMS) TAMMY (obstructive sleep apnea) Procedures HEMAGRAM Kristine Escamilla ESTATE MANAGER [address] [place] [address] [phone] Referral ID Status Reason Start Date Expiration Date Visits Re quested Visits Authorized [id number] Closed 11/27/2010 1 1 * (Routine) - Closed Specialty Diagnoses / Procedures Referred By Contac t Referred To Contact Diagnoses Hypothyroid Morbid obesity (HCC-CMS) TAMMY (obstructive sleep apnea) Procedures [facility] Kristine Escamilla, ESTATE MANAGER [address] [place] [address] [phone] Referral ID Status Reason Start Date Expiration Date Visits Re quested Visits Authorized [id number] Closed 11/27/2010 1 1 Encounter Details Date Type Department Care Team (Latest Contact Info) Description 11/27/2010 11:51 EST - 11/27/2010 23:59 EST Hospital Encounter [address] [address] Kristine Escamilla, ESTATE MANAGER [address] [place] [address] [phone] Hypothyroid; Morbid obesity (HCC-CMS); TAMMY (obstructive sleep [...] or Self Retirement documented in this encounter Miscellaneous Notes * Scanned Note-Null - Motors And Generators Inspector, Scan - 10/15/2011 0903 EST documented in this encounter Plan of Treatment Upcoming Encounters Date Type Department Care Team (Late st Contact Info) Description 12/29/2024 10:20 EST Office Visit [facility] Rheumatology & Immunology - [address] [address] Micaela Hoff MD [address] [place] [address], [address] [place] [phone] documented as of this encounter Procedures Procedure [...] * HEMOGLOBIN A1C (11/27/2010 12:14 EST) Pathologist [facility] Hemoglobin A1C 5.8 % [facility] [...] of treatment. Est Avg Glucose 120 mg/dl [facility] Comment:eAG represents the A 1c result expressed as average glucose in mg/dl. Blood specimen (specimen) 11/27/2010 12:14 EST 11/27/2010 12:16 EST Kristine Escamilla APRN CHEMISTRY & BLOOD GAS ORDERABLES Performing Organization Address [facility] de Phone Number [facility] [address] [place] [address] * VITAMIN D (25,OH) (11/27/2010 12:14 EST) Pathologist [facility] 25OH Vitamin D Tot 14.8 ng/ml [facility] Comment: Reference Range: <10 ng/ml: Deficient 10-30 ng/ml: Insufficient 30-100 ng/ml: Sufficient >100 ng/ml: Toxic Blood specimen (specimen) 11/27/2010 12:14 EST 11/27/2010 12:16 EST Kristine Escamilla APRN CHEMISTRY & BLOOD GAS ORDERABLES Performing Organization Address [facility] Co de Phone Number [facility] [address] [place] [address] * LIVER FUNCTION TESTS (11/27/2010 12:14 EST) [...] & BLOOD GAS ORDERABLES Performing Organization Address City/State/[facility] Co de Phone Number [facility] [address] [place] [address] * HEMAGRAM (11/27/2010 12:14 EST) WBC 8.48 [...] EST 11/27/2010 12:16 EST Kristine S Andi ESTATE MANAGER HEMATOLOGY & PF4 ORDERABLES Performing Organization Address City/[facility]/ZIP Co de Phone Number [facility] [address] [place] [address] * CREATININE (11/27/2010 12:14 EST) Creatinine 0.86 0.7 - 1.5 mg/dl [facility] GFR, Calculated >60 ml/min/1.7 3m2 [facility] Blood specimen (specimen) 11/27/2010 12:14 EST 11/27/2010 12:16 EST Kristine Bismark Andi ESTATE MANAGER CHEMISTRY & BLOOD GAS ORDERABLES Performing Organization Address [facility] Co de Phone Number [facility] [address] [place] [address] documented in this encounter Visit Diagnoses Diagnosis Hypothyroid Unspecified hypothyroidism Morbid obesity ([facility]) Morbid obesity TAMMY (obstructive sleep apnea) Obstructive sleep apnea (adult) (pediatric) documented in this encounter Care Teams Triage Assistant Relationship Specialty Start Date End Date Ladonan Maurer PA [address] [place] [phone] PCP - General 05/20/10 06/02/11 documented as of this encounter
--- OUTSIDE RECORDS SUMMARY | 2024-07-15 01:34 | XMS_ITS | Encounter Summary ---
Author Organization [facility] Address [address] [place] [address] Care Team Providers Care Steak Sauce Maker Name Role Phone Unavailable Primary Care Provider Unavailabl e Encounter Details Date Type Department Care Team (Late st Contact Info) Description 09/03/2007 Before PRISM Converted Visit (Maple) [facility] - Maple conversion [address] [place] [address] Magda Tejada MD [address] [place] [address] Social History Tobacco Use Types Packs/Day Years [...] [facility] Rheumatology & Immunology - [facility] [address] [place] [address] Micaela Hoff MD 111 [facility], [address] [place] [phone] documented as of this encounter Visit Diagnoses [...] drug use. 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 ALLERGIES No known drug allergies. FAMILY HISTORY No mental retardation. No defects. CHILD CUSTODY EVALUATOR HISTORY She does have a history of [...] Normal external female genitalia with normal Barth[place], [place], and Rony glands. The cervix is noted to be very posterior and appearswithout lesions. Gonorrhea and chlamydia cultures were performed as well as Pap smear. The cervix on bimanual examination is noted to be closed with the posterior lip approximately 2 cm and the anterior lip approximately 1.5 cm in length.The uterine size is approximately 6-week size. ASSESSMENT AND PLAN Fpqybd-sud-osqe-old G2, P0-1-0-0 with a history of delivery [...] Magda Tejada MD - harlan Job ID: [id number] Doc ID: [id number] cc: documented in this encounter
--- OUTSIDE RECORDS SUMMARY | 2024-07-15 01:34 | XMS_ITS | Encounter Summary ---
Author Organization [facility] Address [address] [place] [address] Care Team Providers Care Mill Controller Name Role Phone Ladonna Maurer Primary Care Provider [phone] Reason for Visit * Reason Comments Obesity #1 Encounter Details Date Type Department Care Team (Late st Contact Info) Description 08/01/2010 10:[address] [facility] Bariatric Surgery - [address] [phone] Skyler Blanco MD [address] [place] [address] GERD (gastroesophageal reflux disease) (Primary [...] to Shedule a follow-up appt with our recovery advocate and our nurse practitioner, Monique. We will obtain the results of the following: UGI. Teri Haro is an appropriate candidate for LapBand surgery pending test results.. For the next visit she was advised to come with her family. Skyler Blanco MD documented in this encounter Miscellaneous Notes * Scanned Note-Null - German, Form Designer - 08/07/2011 1402 EDT documented in this encounter Plan of Treatment Upcoming Encounters Date Type Department Care Team (Late st Contact Info) Description 12/29/2024 10:[address] [facility] Rheumatology & Immunology - [address] [phone] Micaela Hoff MD 111 [facility], [address] [place] [address] documented as of this encounter [...] duodenal bulb and sweep were obtained. Findings: Solar Thermal Installer KUB normal bowel gas pattern. An IUD [...] duodenal bulb and sweep were obtained. Findings: Solar Thermal Installer KUB normal bowel gas pattern. An IUD [...] 11/27/2010 added in this encounter Care Teams Mill Controller Relationship Specialty Start Date End Date Ladonna Maurer PA [address] [place] [address] PCP - General 05/20/10 06/02/11 documented as of this encounter
--- OUTSIDE RECORDS SUMMARY | 2024-07-15 01:34 | XMS_ITS | Encounter Summary ---
Author Organization [facility] Address [address] [place] [address] Care Team Providers Care Degreasing Wheel Operator Name Role Phone Unavailable Primary Care Provider Unavailabl e Encounter Details Date Type Department Care Team (Late st Contact Info) Description 04/10/2008 14:01 EDT Hospital Encounter [address] [address] Linda Bustillos MD Social History Tobacco Use [...] & [facility] Rheumatology & Immunology - [address] [address] Micaela Hoff MD [address] [place] [address], [address] [place] [phone] documented as of this encounter Visit Diagnoses Not on filedocumented in this encounter Additional Health Concerns Infection Onset Date Last Indicated Resolved Time 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
--- OUTSIDE RECORDS SUMMARY | 2024-07-15 01:35 | XMS_ITS | Encounter Summary ---
Author Organization [facility] Address [address] [place] [address] Care Team Providers Care Business Information Consultant Name Role Phone Ladonna Maurer Primary Care Provider Encounter Details Date Type Department Care Team (Late st Contact Info) Description 05/17/2007 Results Only [facility] - Maple conversion [address] [place] [address] Unknown, Provider, Social History Tobacco Use Types [...] [facility] Rheumatology & Immunology - [address] [address] Micaela Hoff MD 111 [facility], [address] [place] [phone] documented as of this encounter Procedures Procedure Name Priority Date/Time Associated Diagnosis Comments CHLAMYDIA/GC AMPLIFIED PROBE Routine 05/17/2007 10:30 EDT CYTOPATHOLOGY Routine 05/17/2007 0:00 EDT documented in this encounter Results * CHLAMYDIA/GC AMPLIFIED PROBE (05/17/2007 10:30 EDT) Specimen Description Cervix [facility] Result No Chlamydia trachomatis or Neisseria gonorrhoeae DNA detected by freight dispatcher mediated amplification. [facility] Report Status Final [id number] [facility] 05/17/2007 10:3 0 EDT 05/18/2007 15:30 EDT Provider Unknown MD MICROBIOLOGY - GENER AL ORDERABLES [facility] [address] [place] [address] * CYTOPATHOLOGY (05/17/2007 0:00 EDT) Pathology Report: CYTOPATHOLOGY REPORT Reports generated via electronic interface contain original data; however they are lacking the format of the original report. Caution should be taken when reading/interpreti ng unformatted reports. Name: ? TERI CROWE ? Accession #: ? [id number] : ? 1980 (Age: 27) ??F ?Collect Date: ? 05/17/2007 Location: ? [facility] ? Receive Date: ? 05/18/2007 Provider: ?MAYANK FLORENTINO MD Copy to: ? Specimen/Source: ?ThinPrep Pap Test, Cervix/Endocervix, processed on [employer] ThinPrep Imaging System, with manual evaluation Last [...] Mayank Florentino PATHOLOGY ORDERABLES Performing Organization Address City/State/[facility] Co de Phone Number [facility] [address] [place] [address] documented in this encounter Visit Diagnoses Not on filedocumented in this encounter Care Teams Business Information Consultant Relationship Specialty Start Date End Date Ladonna Maurer PA [address] [place] [address] PCP - General 05/20/10 06/02/11 documented as of this encounter
--- OUTSIDE RECORDS SUMMARY | 2024-07-15 01:35 | XMS_ITS | Encounter Summary ---
Author Organization [facility] Address [address] [place] [address] Care Team Providers Care Counter Former Name Role Phone Unavailable Primary Care Provider Unavailabl e Encounter Details Date Type Department Care Team (Late st Contact Info) Description 01/09/2005 9:39 EST - 01/09/2005 11:59 EST Hospital Encounter [facility] - Other [address] [place], [place] [address] [phone] Gustavo Smith MD [address] [phone] Discharge Disposition: Auto Discharge Social History Tobacco [...] [facility] - [facility] [address] [place], [place] [phone] Micaela Hoff MD 111 [facility], [address] [place] [phone] documented as of this encounter Visit Diagnoses Not on filedocumented in this encounter
--- OUTSIDE RECORDS SUMMARY | 2024-07-15 01:35 | XMS_ITS | Encounter Summary ---
Author Organization [facility] Address [address] [place] [address] Care Team Providers Care Jewelry Model Maker Name Role Phone Unavailable Primary Care Provider Unavailabl e Encounter Details Date Type Department Care Team (Late st Contact Info) Description 11/18/2004 13:04 EST Hospital Encounter [facility] - Other [address] [place], [place] [address] Gustavo Smith MD [address] [phone] Social History Tobacco Use Types Packs/Day Years [...] [facility] Rheumatology & Immunology - [facility] [address] [place], [place] [phone] Micaela Hoff MD 111 [facility], [address] [place] [address] documented as of this encounter Visit Diagnoses Not on filedocumented in this encounter Additional Health Concerns Infection Onset Date Last Indicated Resolved Time MRSA 10/20/2011 10/20/2011 documented as of this encounter
--- OUTSIDE RECORDS SUMMARY | 2024-07-15 01:35 | XMS_ITS | Encounter Summary ---
Author Organization [facility] Address [facility] [place] [address] Care Team Providers Care Dental Associate Name Role Phone TrellAnuja APRN Primary Care Provider [phone] Encounter Details Date Type Department Care Team (Latest Contact Info) Description 02/16/2024 11:32 AM EDT - 02/16/2024 11:59 PM EDT Hospital Encounter XRay at [address] [place] [address] Britt Zurita MD [facility] [place] [address] Polyarthralgia Discharge Disposition: Home Social History Tobacco [...] 02/16/24 07/29/2021 fluticasone propionate (Flonase) 50 mcg/actuation [place], Suspension [...] 12:00 PM EDT Office [place] [address] Britt Zurita MD [facility] [place] [address] documented as of this encounter Procedures Procedure [...] who have questions please contact the health vp care management that requested your imaging first. ? Electronically signed by: Rebecca Escalera MD, [facility] ([phone]), at 02/16/2024 3:49 PM Narrative 02/16/2024 3:49 [...] sites documented in this encounter Care Teams Dental Associate Relationship Specialty Start Date End Date Anuja Cai, HIGH RISK CASE MANAGER [address] [place] [address] PCP - General Internal Medicine 07/25/21 documented as of this encounter
--- OUTSIDE RECORDS SUMMARY | 2024-07-15 01:35 | XMS_ITS | Encounter Summary ---
Author Organization [facility] Address [address] [place] [address] Care Team Providers Care Fire Control Technician B Name Role Phone Unavailable Primary Care Provider Unavailabl e Encounter Details Date Type Department Care Team (Latest Contact Info) Description 09/03/2007 13:55 EDT Hospital Encounter [address] [address] Shanique Eagle MD [address] [phone] Discharge Disposition: Auto Discharge Social History Tobacco [...] [facility] Rheumatology & Immunology - [address] [address] Micaela Hoff MD [address] [place] [address], [address] [place] [phone] documented as of this encounter Procedures Procedure Name Priority Date/Time Associated Diagnosis Comments PARTS SALESPERSON US OB FIRST TRIMESTER TRANSVAGINAL 09/10/2007 13:09 EST documented in this encounter Results * PARTS SALESPERSON US OB FIRST TRIMESTER TRANSVAGINAL (09/10/2007 13:09 [...] findings. /harlan Magda Tejada MD IMG US PARTS SALESPERSON ORDERABLE S documented in this encounter Visit Diagnoses Not on filedocumented in this encounter
--- OUTSIDE RECORDS SUMMARY | 2024-07-15 01:35 | XMS_ITS | Encounter Summary ---
Author Organization [facility] Address [address] [place] [address] Care Team Providers Care Fleet Administrative Assistant Name Role Phone Unavailable Primary Care Provider Unavailabl e Encounter Details Date Type Department Care Team (Late st Contact Info) Description 06/15/2006 15:07 EDT Hospital Encounter [facility] - Maple conversion [address] [place] [address] Vlad Lucio MD Social History Tobacco Use [...] [facility] - [facility] [address] [place], [place] [address] Micaela Hoff MD 111 [facility], [address] [place] [phone] documented as of this encounter Procedures Procedure [...] OOD GAS ORDERABLES [facility] [address] [place] [address] * (ABNORMAL) HEMAGRAM AND DIFFERENTIAL (06/15/2006 16:00 [...] DNA PROBE ORDERABLES [facility] [address] [place] [address] documented in this encounter Visit Diagnoses Not on filedocumented in this encounter Additional Health Concerns Infection Onset Date Last Indicated Resolved Time MRSA 10/20/2011 10/20/2011 documented as of this encounter
--- OUTSIDE RECORDS SUMMARY | 2024-07-15 01:35 | XMS_ITS | Encounter Summary ---
Author Organization [facility] [place] [address] Care Team Providers Care Earth Observations Chief Scientist Name Role Phone Anuja Cai HUANG Primary Care Provider [phone] Encounter Details Date Type Department Care Team (Late st Contact Info) Description 02/05/2024 Ancillary Procedure [place] [phone] Alphonso Vasques MD [facility] [place] [address] Social History Tobacco Use Types Packs/Day Years [...] 12:00 PM EDT Office [place] [address] Britt Zurita MD [facility] RHEUMATOLOGY [place], [place] [phone] documented as of this encounter Procedures Procedure [...] FILM LIBRARY ORD ERABLES Performing Organization Address City/State/[facility] Co de Phone Number [place], [place] documented in this encounter Visit Diagnoses Not on filedocumented in this encounter Care Teams Earth Observations Chief Scientist Relationship Specialty Start Date End Date Anuja Cai APRN [address] [facility] [place] [address] PCP - General Internal Medicine 07/25/21 documented as of this encounter
--- OUTSIDE RECORDS SUMMARY | 2024-07-15 01:35 | XMS_ITS | Encounter Summary ---
Author Organization [facility] Address [address] [place] [address] Care Team Providers Care First Aid Teacher Name Role Phone Unavailable Primary Care Provider Unavailabl e Encounter Details Date Type Department Care Team (Late st Contact Info) Description 11/19/2004 16:10 EST Hospital Encounter [facility] - Other [address] [place], [place] [address] Gustavo Smith MD [address] [phone] Social History Tobacco Use Types Packs/Day Years [...] Visit [facility] Rheumatology & Immunology - [facility] [address] [place], [place] [phone] Micaela Hoff MD 111 [facility], [address] [place] [address] documented as of this encounter Visit Diagnoses Not on filedocumented in this encounter Additional Health Concerns Infection Onset Date Last Indicated Resolved Time MRSA 10/20/2011 10/20/2011 documented as of this encounter
--- OUTSIDE RECORDS SUMMARY | 2024-07-15 01:35 | XMS_ITS | Encounter Summary ---
Author Organization [facility] Address [address] [place] [address] Care Team Providers Care Sexologist Name Role Phone Unavailable Primary Care Provider Unavailabl e Encounter Details Date Type Department Care Team (Late st Contact Info) Description 05/31/2004 8:51 EDT Hospital Encounter [facility] [address] [place] [address] Rehan Overton MD [address] [place] [phone] Social History Tobacco Use Types Packs/Day Years [...] [facility] Rheumatology & Immunology - [address] [address] Micaela Hoff MD 111 [facility], [address] [place] [phone] documented as of this encounter Visit Diagnoses Not on filedocumented in this encounter Additional Health Concerns Infection Onset Date Last Indicated Resolved Time MRSA 10/20/2011 10/20/2011 documented as of this encounter
--- OUTSIDE RECORDS SUMMARY | 2024-07-15 01:35 | XMS_ITS | Encounter Summary ---
Author Organization [facility] Address [address] [place] [address] Care Team Providers Care Lean Manufacturing Specialist Name Role Phone Unavailable Primary Care Provider Unavailabl e Encounter Details Date Type Department Care Team (Latest Contact Info) Description 01/25/2006 2:33 EST - 01/25/2006 11:59 EST Hospital Encounter [facility] Emergency Department - [address] [phone] Emergency, MD Fede Discharge Disposition: Home or [...] [facility] [address] [address] Micaela Hoff MD [address] [place] [address], [address] [place] [phone] documented as of this encounter Visit Diagnoses Not on filedocumented in this encounter
--- OUTSIDE RECORDS SUMMARY | 2024-07-15 01:35 | XMS_ITS | Encounter Summary ---
Author Organization [facility] Address [address] [place] [address] Care Team Providers Care Outreach Associate Name Role Phone Unavailable Primary Care Provider Unavailabl e Encounter Details Date Type Department Care Team (Latest Contact Info) Description 12/14/2005 10:26 EST - 12/14/2005 11:59 EST Hospital Encounter [facility] Emergency Department - [address] [address] Emergency, MD Fede Discharge Disposition: Home or [...] Description 12/29/2024 10:20 EST Office Visit [facility] Rheumatology & Immunology - [address] [address] Micaela Hoff MD [address] [place] [address], [address] [place] [address] documented as of this encounter [...] growth [facility] Report Status Final [id number] [facility] 12/14/2005 10:5 0 EST 12/14/2005 12:59 EST Default Emergency MICROBIOLOGY - GENE RAL ORDERABLES Performing Organization Address [facility] de Phone Number [facility] [address] [place] [address] * (ABNORMAL) URINE MICROSCOPIC ONLY (12/14/2005 10:50 [...] Emergency URINALYSIS ORDERABL ES Performing Organization Address [facility] de Phone Number [facility] [address] [place] [address] * CULTURE IF UA POSITIVE (12/14/2005 10:50 EST) Culture if Indicated Culture indicated by urinalysis results. [facility] 12/14/2005 10:5 0 EST 12/14/2005 10:52 EST Default Emergency MICROBIOLOGY - GENE RAL ORDERABLES [facility] [address] [place] [address] documented in this encounter Visit Diagnoses Not on filedocumented in this encounter
--- OUTSIDE RECORDS SUMMARY | 2024-07-15 01:35 | XMS_ITS | Encounter Summary ---
[place] [address] Care Team Providers Care Assistant Farm Operations Manager Name Role Phone Trell Anuja Barbara ENCINAS Primary Care Provider [phone] Reason for Referral * Diagnostic Test (Routine) - Closed Specialty Diagnoses / Procedures Referred By Contac t Referred To Contact Radiology Diagnoses Opacity of lung on imaging study Procedures CT Chest wo Contrast (Generic) Britt Zurita MD [facility] [place] [address] [facility] [place] [address] Referral ID Status Reason Start Date Expiration Date V isits Requested Visits Authorized [id number] Closed Specialty Service Requested 02/17/2024 08/18/2025 1 1 Encounter Details Date Type Department Care Team (Late st Contact Info) Description 02/17/2024 Orders [place] [address] Britt Zurita MD [facility] [place] [address] Opacity of lung on imaging [...] 12:00 PM EDT Office [place] [address] Britt Zurita MD [facility] [place] [address] documented as of this encounter Results * CT Chest wo Contrast (Generic) (02/19/2024 10:43 AM EDT) Rawporter WORKSTATION ID [id number] RAD Anatomical Region Laterality Modality Chest Computed [...] who have questions please contact the health transitions rn care coordinator that requested your imaging first. ? Narrative [...] patients who have questions please contactthe health transitions rn care coordinator that requested your imaging first. Electronically signed by: Rebecca Escalera MD, [facility] ([phone]), at 02/21/2024 6:30 AM Britt Zurita MD IMG CT ORDERABLES documented in this encounter Visit Diagnoses Diagnosis Opacity of lung on imaging study Opacity of lung on imaging study documented in this encounter Care Teams Assistant Farm Operations Manager Relationship Specialty Start Date End Date Anuja Cai, CROSS TIE TURNER [address] [place] [address] PCP - General Internal Medicine 07/25/21 documented as of this encounter
--- OUTSIDE RECORDS SUMMARY | 2024-07-15 01:35 | XMS_ITS | Encounter Summary ---
Author Organization [facility] Address [address] [place] [address] Care Team Providers Care Digital Designer Name Role Phone Ladonna Maurer Primary Care Provider [phone] Encounter Details Date Type Department Care Team (Late st Contact Info) Description 12/09/2004 Results Only [facility] - Maple conversion [address] [place] [address] [phone] Laurel Blount MD [address] [place] [address] Social History Tobacco Use Types [...] Office Visit [facility] Rheumatology & Immunology - [address] [address] Micaela Hoff MD 111 [facility], [address] [place] [address] documented as of this encounter [...] BLOO D GAS ORDERABLES Performing Organization Address [facility] Co de Phone Number [facility] [address] [place] [address] * MONO-TEST (12/09/2004 16:06 EST) Pathologist [facility] Hitchcock-Test Neg NEG [facility] 12/09/2004 16:0 6 EST 12/09/2004 19:43 EST Laurel Blount MD CHEMISTRY & BLOO D GAS ORDERABLES Performing Organization Address [facility] de Phone Number [facility] [address] [place] [address] * HEMAGRAM (12/09/2004 16:06 EST) WBC 7.02 [...] HEMATOLOGY & PF4 ORDERABLES Performing Organization Address City/State/[facility] Co de Phone Number [facility] [address] [place] [address] documented in this encounter Visit Diagnoses Not on filedocumented in this encounter Care Teams Digital Designer Relationship Specialty Start Date End Date Ladonna Maurer PA [address] [place] [address] PCP - General 05/20/10 06/02/11 documented as of this encounter
--- OUTSIDE RECORDS SUMMARY | 2024-07-15 01:35 | XMS_ITS | Encounter Summary ---
Author Organization [facility] Address [address] [place] [address] Care Team Providers Care Semiconductor Wafer Inspector Name Role Phone Unavailable Primary Care Provider Unavailabl e Encounter Details Date Type Department Care Team (Latest Contact Info) Description 09/25/2004 6:47 EST - 09/25/2004 11:59 EST Hospital Encounter [facility] Perioperative Services- [address] [id number] Robin Garay MD PhD Discharge Disposition: Home [...] Visit [facility] Rheumatology & Immunology - [address] 266[address] Micaela Hoff MD [address] [place] [address], [address] [place] [address] documented as of this encounter Procedures Procedure Name Priority Date/Time Associated Diagnosis Comments TEST, URINE Routine 09/25/2004 7:28 EST documented in this encounter Results * TEST, URINE (09/25/2004 7:28 EST) Result-Pregnanc y Test, Ur Neg [facility] Specific [place] 1.020 [facility] 09/25/2004 7:28 EST 09/25/2004 7:29 EST Robin Garay MD PhD URINALYSIS ORDER HEATH [facility] [address] [place] [address] documented in this encounter Visit Diagnoses Not on filedocumented in this encounter
--- OUTSIDE RECORDS SUMMARY | 2024-07-15 01:35 | XMS_ITS | Encounter Summary ---
Author Organization [facility] Address [address] [place] [address] Care Team Providers Care Chip Frier Name Role Phone Ladonna Maurer Primary Care Provider [phone] Encounter Details Date Type Department Care Team (Late st Contact Info) Description 11/18/2004 Results Only [facility] Family Medicine [address] [address] Valeria Smith MD [address] [phone] Social History Tobacco Use Types Packs/Day Years [...] [facility] Rheumatology & Immunology - [address] [phone] Micaela Hoff MD [address] [facility], [address] 5 [place] [address] documented as of this [...] ? TERI CROWE ? Accession #: ? [id number] : ? 1980 (Age: 24) ??F ?Collect [...] Smith MD PATHOLOGY ORDERABLES [facility] [address] [place] [address] documented in this encounter Visit Diagnoses Not on filedocumented in this encounter Care Teams Chip Frier Relationship Specialty Start Date End Date Ladonna Maurer PA [address] [place] [address] PCP - General 05/20/10 06/02/11 documented as of this encounter
--- OUTSIDE RECORDS SUMMARY | 2024-07-15 01:35 | XMS_ITS | Encounter Summary ---
Author Organization [facility] Address [address] [place] [address] Care Team Providers Care Line Inspector Name Role Phone Unavailable Primary Care Provider Unavailabl e Encounter Details Date Type Department Care Team (Late st Contact Info) Description 01/25/2006 Office Visit [facility] - Maple conversion [address] [place] [address] Bethel Harding MD Social History Tobacco Use [...] 8/10. The patient has had nausea. Treatment DOCUMENT CONTROL ASSOCIATE: None. PAST HX: Negative. Last normal menstrual [...] left the Emergency Department accompanied by a eye clinic manager (before completion of treatment). The patient [...] [facility] Rheumatology & Immunology - [address] [address] Micaela Hoff MD [address] [place] [address], [address] [place] [address] documented as of this encounter Visit Diagnoses Not on filedocumented in this encounter
--- OUTSIDE RECORDS SUMMARY | 2024-07-15 01:35 | XMS_ITS | Encounter Summary ---
Author Organization [facility] Address [address] [place] [address] Care Team Providers Care Health And Safety Technician Name Role Phone Ladonna Maurer Primary Care Provider Encounter Details Date Type Department Care Team (Late st Contact Info) Description 02/11/2006 Results Only [facility] - Maple conversion [address] [place] [address] Robin Robb MD [address] [place] [phone] Social History Tobacco Use Types Packs/Day Years [...] [facility] [place] [facility] & Immunology - [facility] [address] [place], [place] [address] Micaela Hoff MD [address] [facility], [address] [place] [address] documented as of this [...] ? TERI CROWE ? Accession #: ? [id number] : ? 1980 (Age: 25) ??F ?Collect Date: ? 02/11/2006 Location: ? [facility] ? Receive Date: ? 02/13/2006 Provider: ?TARIK ROBB MD Copy to: ? Specimen/Source: ?ThinPrep Pap Test, Cervix/Endocervix, processed on [employer] ThinPrep Imaging System, with manual evaluation Last [...] MD PATHOLOGY ORD ERABLES [facility] [address] [place] [address] documented in this encounter Visit Diagnoses Not on filedocumented in this encounter Care Teams Health And Safety Technician Relationship Specialty Start Date End Date Ladonna Maurer PA [address] [place] [address] PCP - General 05/20/10 06/02/11 documented as of this encounter
--- OUTSIDE RECORDS SUMMARY | 2024-07-15 01:35 | XMS_ITS | Encounter Summary ---
Author Organization [facility] Address [address] [place] [address] Care Team Providers Care Welder Plasma Arc Name Role Phone Unavailable Primary Care Provider Unavailabl e Encounter Details Date Type Department Care Team (Late st Contact Info) Description 08/09/2003 8:46 EDT Hospital Encounter [facility] - Other [address] [place] [address] Newton Evans, [address] [place] [address] Social History Tobacco Use Types Packs/Day Years [...] [facility] - [facility] [address] [place], [place] [address] Micaela Hoff MD [address] [facility], [address] [place] [phone] documented as of this encounter Procedures Procedure [...] ? TERI CROWE ? Accession #: ? [id number] : ? 1980 (Age: 23) ??F ?Collect [...] 08/14/2003 Newton Evans CNM PATHOLOGY ORDERABLES [facility] [address] [place] [address] documented in this encounter Visit Diagnoses Not on filedocumented in this encounter Additional Health Concerns Infection Onset Date Last Indicated Resolved Time MRSA 10/20/2011 10/20/2011 documented as of this encounter
--- OUTSIDE RECORDS SUMMARY | 2024-07-15 01:35 | XMS_ITS | Encounter Summary ---
Author Organization [facility] Address [address] [place] [address] Care Team Providers Care Cash Processing Specialist Name Role Phone Unavailable Primary Care Provider Unavailabl e Encounter Details Date Type Department Care Team (Late st Contact Info) Description 12/14/2005 Office Visit [facility] - Maple conversion [address] [place] [address] Stephany Quintanilla MD [address] [place] [address] Social History Tobacco Use Types Packs/Day Years Used Date Smoking Tobacco: Never Assessed Sex and Gender Information Value Date Recorded Sex Assigned at Not on file Gender Identity Not on file Sexual Orientation Not on file documented as of this encounter Progress Notes * German, Conv Die Inspector - 01/02/20102026 EST Department - Physician Summary [...] back pain, flank pain or fever. Treatment ELECTRIC ARC FURNACE OPERATOR: None. PAST HX: Negative. SOCIAL HX: Nonsmoker. [...] Patient verbalized understanding. Written instructions provided in [place]. The patient was discharged home and unaccompanied [...] [facility] Rheumatology & Immunology [place] [address] Micaela Hoff MD 111 [facility], [address] [place] [address] documented as of this encounter Visit Diagnoses Not on filedocumented in this encounter
--- OUTSIDE RECORDS SUMMARY | 2024-07-15 01:35 | XMS_ITS | Encounter Summary ---
Author Organization [facility] Address [address] [place] [address] Care Team Providers Care Steam Plant Control Room Operator Name Role Phone Unavailable Primary Care Provider Unavailabl e Encounter Details Date Type Department Care Team (Latest Contact Info) Description 06/20/2004 12:36 EDT Hospital Encounter [address] [address] Rehan Overton MD [address] [place] [phone] Discharge Disposition: Auto Discharge Social History Tobacco [...] [facility] Rheumatology & Immunology [address] 864271 Micaela Hoff MD [address] [facility], [address] [place] [address] documented as of this encounter Procedures Procedure Name Priority Date/Time Associated Diagnosis Comments [facility] SUPPLY DISTRIBUTOR Routine 06/25/2004 17:30 EDT [place] HYSTEROSALPINGOGRAM Routine 4 14:58 EDT documented in this encounter Results * [facility] C[facility]TRAL SERVICE SUPPLY DISTRIBUTOR (06/25/2004 17:30 EDT) Anatomical Region Laterality Modality Other 06/25/2004 17:3 0 EDT Narrative 07/17/2009 9:37 EDT [facility] TRANSVAGINAL ULTRASOUND - 06/25/04 INDICATION: [...] Procedure Note Robin Garay MD - 07/17/2009 [facility] TRANSVAGINAL ULTRASOUND - 06/25/04 INDICATION: [...] T - 06/26/04 Rehan Overton MD [facility] ORDERABLE S * [place] HYSTEROSALPINGOGRAM (06/20/2004 14:58 [...]
--- OUTSIDE RECORDS SUMMARY | 2024-07-15 01:35 | XMS_ITS | Encounter Summary ---
Author Organization [facility] Address [address] [place] [address] Care Team Providers Care Residential Nurse Name Role Phone Unavailable Primary Care Provider Unavailabl e Encounter Details Date Type Department Care Team (Latest Contact Info) Description 02/24/2002 12:05 EDT Hospital Encounter [facility] - Other [address] [place] [address] Ashley Cerrato FNP [address] [place] [address] Unknown, Provider, Discharge Disposition: Auto Discharge Social [...] [facility] Rheumatology & Immunology - [facility] [address] [place] [address] Micaela Hoff MD 111 [facility], Level [address] [place] [phone] documented as of this encounter Procedures Procedure [...] cancers. [facility] Report Status Final [id number] [facility] 02/24/2002 10:2 6 EDT 03/07/2002 10:26 EDT Ashley DOVE MICROBIOLOGY - GENER AL ORDERABLES Performing Organization Address City/State/[facility] Co de Phone Number [facility] [address] [place] [address] * CYTOPATHOLOGY (02/24/2002 0:00 EDT) Pathology Report: CYTOPATHOLOGY REPORT Reports generated via electronic interface contain original data; however they are lacking the format of the original report. Caution should be taken when reading/interpreti ng unformatted reports. Name: ? JAYA TERI Sayda ? Accession #: ? [id number] : ? 1980 (Age: 21) ??F ?Collect Date: ? 02/24/2002 Location: ? [facility] ? Receive Date: ? 02/28/2002 Provider: ?ASHLEY NELLY GAS ENGINE REPAIRER Copy to: ? [facility] ? [facility] ? [address] ? [place] [address] ? Specimen/Source: ?ThinPrep Pap Test, Cervix Last [...] Report [facility] 02/24/2002 02/28/2002 Ashley Cerrato GAS ENGINE REPAIRER PATHOLOGY ORDERABLES Performing Organization Address City/State/[facility] Co de Phone Number [facility] [address] [place] [address] documented in this encounter Visit Diagnoses Not on filedocumented in this encounter
--- OUTSIDE RECORDS SUMMARY | 2024-07-15 01:35 | XMS_ITS | Encounter Summary ---
Author Organization [facility] Address [address] [place] [address] Care Team Providers Care Care Team Coordinator Scheduler Name Role Phone Unavailable Primary Care Provider Unavailabl e Encounter Details Date Type Department Care Team (Late st Contact Info) Description 02/23/2006 Office Visit [facility] - Maple conversion [address] [place] [address] Nurse, Emergency Room, Social History Tobacco Use Types Packs/Day Years Used Date Smoking Tobacco: Never Assessed Sex and Gender Information Value Date Recorded Sex Assigned at Not on file Gender Identity Not on file Sexual Orientation Not on file documented as of this encounter Progress Notes * Vu Porter Military Pay Clerk - 12/26/2009 1946 EST Department - Physician Summary Registration Date/Time: 02/23/2006 17:24 Addenda for TERI LAKE VisitID: [id number] Date: 02/23/2006 02/24/2006 9:04 attempted call back [...] Visit [facility] Rheumatology & Immunology - [address] [address] Micaela Hoff MD [address] [place] [address], [address] [place] [address] documented as of this encounter Visit Diagnoses Not on filedocumented in this encounter
--- OUTSIDE RECORDS SUMMARY | 2024-07-15 01:35 | XMS_ITS | Encounter Summary ---
Author Organization [facility] Address [address] [place] [address] Care Team Providers Care Distilling Department Supervisor Name Role Phone Unavailable Primary Care Provider Unavailabl e Encounter Details Date Type Department Care Team (Latest Contact Info) Description 12/29/2003 10:51 EST - 12/29/2003 11:59 EST Hospital Encounter [facility] - Other [address] [place] [address] Grayson Geiger MD Discharge Disposition: Auto Discharge [...] [facility] Rheumatology & Immunology - [facility] [address] [place], [place] [address] Micaela Hoff MD 111 [facility], Level [address] [place] [phone] documented as of this encounter Procedures Procedure [...] ? TERI CROWE ? Accession #: ? [id number] : ? 1980 (Age: 23) ??F ?Collect [...] Report Date: ??01/04/2004 13:24 End of Report [facility] 12/29/2003 01/02/2004 Shiva Matias DO PATHOLOGY ORDERABLES [facility] [address] [place] [address] documented in this encounter Visit Diagnoses Not on filedocumented in this encounter
--- OUTSIDE RECORDS SUMMARY | 2024-07-15 01:35 | XMS_ITS | Encounter Summary ---
Author Organization [facility] Address [address] [place] [address] Care Team Providers Care Watch Caser Name Role Phone Unavailable Primary Care Provider Unavailabl e Encounter Details Date Type Department Care Team (Latest Contact Info) Description 02/18/2006 14:[address] [facility] - Maple conversion [address] [place] [address] Marcelle Harrison MD [address] [place] [address] Discharge Disposition: Auto Discharge Social History Tobacco [...] [facility] Rheumatology & Immunology - [facility] [address] [place], [place] [address] Micaela Hoff MD 111 [facility], Level [address] [place] [phone] documented as of this encounter Visit Diagnoses Not on filedocumented in this encounter
--- OUTSIDE RECORDS SUMMARY | 2024-07-15 01:35 | XMS_ITS | Encounter Summary ---
Author Organization [facility] Address [address] [place] [address] Care Team Providers Care Environment Artist Name Role Phone Unavailable Primary Care Provider Unavailabl e Encounter Details Date Type Department Care Team (Late st Contact Info) Description 07/06/2002 8:14 EDT Hospital Encounter [facility] - Other [address] [place] [address] Ashley Villegas FNP [address] [place] [phone] Unknown, Provider, Social History Tobacco Use Types [...] [facility] - [address] [address] Micaela Hoff MD [address] [place] [address], Level [address] [place] [phone] documented as of this encounter Procedures Procedure [...] ? TERI LAKE ? Accession #: ? [id number] : ? 1980 (Age: 22) ??F ?Collect Date: ? 07/06/2002 Location: ? [facility] ? Receive Date: ? 07/11/2002 Provider: ?ASHLEY VILLEGAS [facility] Copy to: ? [facility] ? [facility] ?[address] ?[place] [address] ? Specimen/Source: ?ThinPrep Pap Test, Cervix Last Menstrual Period: ? 06/29/02 Previous Gynecologic Pathology: ? ASC-US: 04/02 ? SPECIMEN ADEQUACY ? Satisfactory for Evaluation - transformation zone component present GENERAL CATEGORIZATION ? Epithelial Cell Abnormality INTERPRETATION ? Squamous Cell Abnormality - Atypical squamous cells, undetermined significance. EDUCATIONAL NOTES/RECOMMENDATI ONS ? [facility] recommends following the 2001 Consensus Guidelines for the Management of Women with Cervical Cytological Abnormalities (BE,2002;287:212 0-9). Management algorithms have been distributed by [facility] and are available online at www.ASCCP.org. ? Document reviewed and electronically signed by: ? JASPREET COTTRELL MD ? 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
--- OUTSIDE RECORDS SUMMARY | 2024-07-15 01:35 | XMS_ITS | Encounter Summary ---
Author Organization [facility] Address [address] [place] [address] Care Team Providers Care Certified Fire Investigator Name Role Phone Ladonna Maurer Primary Care Provider [phone] Encounter Details Date Type Department Care Team (Late st Contact Info) Description 01/09/2005 Results Only [facility] Family Medicine [address] [address] Gustavo Smith MD [address] [phone] Social History Tobacco Use Types Packs/Day Years [...] Visit [facility] Rheumatology & Immunology - [address] [phone] Micaela Hoff MD 111 [facility], [address] [place] [address] documented as of this encounter [...] FOR S Q LOAD Performing Organization Address [facility] de Phone Number [facility] [address] [place] [address] * LIPID PROFILE (INCLUDES CHOLESTEROL, TRIGLYCERIDES, HDL, LDL) (01/09/2005 9:39 EST) Cholesterol 130 mg/dl [facility] Comment: Desirable:<200 Borderline:200-239 High Risk:>cz=622 Triglycerides 59 35 - 160 mg/dl [facility] HDL 40 mg/dl [facility] Comment: Highly Desirable:>60 Desirable:35-60 High Risk:<35 LDL, Calculated 78 mg/dl [facility] Comment: Desirable:<130 Borderline:130-159 High Risk:>so=350 Chol/HDL Ratio 3.3 [facility] Fasting? No [facility] 01/09/2005 9:39 EST 01/09/2005 16:52 EST Gustavo Smith MD CHEMISTRY & BLOOD GA S ORDERABLES Performing Organization Address [facility] de Phone Number [facility] [address] [place] [address] * HIV ANTIBODY (01/09/2005 9:39 EST) HIV 1/2 Antibody NONREACT. NR [facility] 01/09/2005 9:39 EST 01/09/2005 16:52 EST Gustavo Smith MD IMMUNOLOGY AND SEROL OGY ORDERABLES Performing Organization Address [facility] de Phone Number [facility] [address] [place] [address] * HEPATITIS C ANTIBODY (01/09/2005 9:39 EST) Hepatitis C Ab Neg [facility]STINA [facility] 01/09/2005 9:39 EST 01/09/2005 16:52 EST Gustavo Smith MD CHEMISTRY & BLOOD GA S ORDERABLES Performing Organization Address [facility] de Phone Number [facility] [address] [place] [address] * HEPATITIS B SURFACE ANTIBODY (01/09/2005 9:39 EST) Hepatitis B Surface Ab Pos [facility] 01/09/2005 9:39 EST 01/09/2005 16:52 EST Gustavo Smith MD CHEMISTRY & BLOOD GA S ORDERABLES Performing Organization Address [facility] de Phone Number [facility] [address] [place] [address] documented in this encounter Visit Diagnoses Not on filedocumented in this encounter Care Teams Certified Fire Investigator Relationship Specialty Start Date End Date Ladonna Maurer PA [address] [place] [address] PCP - General 05/20/10 06/02/11 documented as of this encounter
--- OUTSIDE RECORDS SUMMARY | 2024-07-15 01:35 | XMS_ITS | Encounter Summary ---
Author Organization [facility] Address [address] [place] [address] Care Team Providers Care Packing Floor Worker Name Role Phone Unavailable Primary Care Provider Unavailabl e Encounter Details Date Type Department Care Team (Latest Contact Info) Description 05/03/2004 10:53 EDT - 05/03/2004 11:59 EDT Hospital Encounter [facility] - Other [address] [place] [address] Yomi Valdes MD Discharge Disposition: Auto Discharge [facility] - [facility] [address] [place], [place] [address] Micaela Hoff MD [address] [facility], [address] 5 [place] [phone] documented as of this encounter Procedures Procedure [...] ? TERI CROWE ? Accession #: ? [id number] : ? 1980 (Age: 24) ??F ?Collect [...] Valdes MD PATHOLOGY ORDERABLES [facility] [address] [place] [address] documented in this encounter Visit Diagnoses Not on filedocumented in this encounter
--- OUTSIDE RECORDS SUMMARY | 2024-07-15 01:35 | XMS_ITS | Encounter Summary ---
Author Organization [facility] [place] [address] Care Team Providers Care Die Stamper Name Role Phone Anuja Cai HUANG Primary Care Provider [phone] Reason for Visit * Reason Comments Medication Refill Encounter Details Date Type Department Care Team (Late Contact Info) Description 04/18/2024 Refill [place] [phone] Britt Zurita MD [facility] [place] [address] Polyarthralgia Social History Tobacco Use Types Packs/Day [...] 12:00 PM EDT Office Visit [place] [phone] Britt Zurita MD [facility] [place] [address] documented as of this encounter Visit Diagnoses Diagnosis Polyarthralgia Pain in joint, multiple sites documented in this encounter Care Teams Die Stamper Relationship Specialty Start Date End Date Anuja Cai APRN [address] [place] [address] PCP - General Internal Medicine 07/25/21 documented as of this encounter
--- OUTSIDE RECORDS SUMMARY | 2024-07-15 01:35 | XMS_ITS | Encounter Summary ---
Author Organization [facility] Address [address] [place] [address] Care Team Providers Care Friction Saw Operator Name Role Phone Unavailable Primary Care Provider Unavailabl e Encounter Details Date Type Department Care Team (Latest Contact Info) Description 02/11/2006 13:30 EDT Hospital Encounter [facility] - Maple conversion [address] [place] [address] Stephany Payne MD [address] [place] [phone] Robin Pena MD [address] [place] [address] Discharge Disposition: Auto Discharge Social [...] [facility] Rheumatology & Immunology - [address] [address] Micaela Hoff MD [address] [facility] 5 [place] [phone] documented as of this encounter Procedures Procedure [...] AN D SEROLOGY ORDERABLES Performing Organization Address [facility] de Phone Number [facility] [address] [place] [address] * HIV ANTIBODY (YONATHAN) (02/11/2006 15:21 EDT) HIV 1/2 Antibody NONREACT. NR [facility] 02/11/2006 15:2 1 EDT 02/11/2006 20:14 EDT Robin Pena MD IMMUNOLOGY AN D SEROLOGY ORDERABLES Performing Organization Address [facility] de Phone Number [facility] [address] [place] [address] * HEPATITIS C ANTIBODY (02/11/2006 15:21 EDT) Hepatitis C Ab Neg [facility] 02/11/2006 15:2 1 EDT 02/11/2006 20:14 EDT Robin Pena MD CHEMISTRY & B LOOD GAS ORDERABLES Performing Organization Address [facility] Co de Phone Number [facility] [address] [place] [address] * N. GONORRHOEAE AMPLIFIED PROBE (02/11/2006 15:21 EDT) Result No Neisseria gonorrhoeae DNA detected by technologist infectious disease mediated amplification. [facility] Report Status Final [id number] [facility] Specimen Description Cervix [facility] 02/11/2006 15:2 1 EDT 02/12/2006 7:00 EDT Robin Pena MD MICROBIOLOGY - GENERAL ORDERABLES Performing Organization Address [facility] de Phone Number [facility] [address] [place] [address] * CHLAMYDIA TRACHOMATIS AMPLIFIED PROBE (02/11/2006 15:21 EDT) Specimen Description Cervix [facility] Result No Chlamydia trachomatis DNA detected by technologist infectious disease mediated amplification. [facility] Report Status Final [id number] [facility] 02/11/2006 15:2 1 EDT 02/12/2006 7:00 EDT Robin Pena MD MICROBIOLOGY - GENERAL ORDERABLES Performing Organization Address [facility] Co de Phone Number [facility] [address] [place] [address] documented in this encounter Visit Diagnoses Not on filedocumented in this encounter
--- OUTSIDE RECORDS SUMMARY | 2024-07-15 01:35 | XMS_ITS | Encounter Summary ---
Author Organization [facility] Address [address] [place] [address] Care Team Providers Care Stock Transfer Clerk Name Role Phone Unavailable Primary Care Provider Unavailabl e Encounter Details Date Type Department Care Team (Latest Contact Info) Description 02/06/2004 15:21 EDT Hospital Encounter [facility] - Other [address] [place] [address] Marixa Barreto MD Discharge Disposition: Auto Discharge [...] 12/29/2024 10:20 EST Office Visit [facility] Rheumatology & Immunology - [facility] [address] [place], [place] [address] Micaela Hoff MD [address] [facility], [address] [place] [phone] documented as of this encounter Visit Diagnoses Not on filedocumented in this encounter
--- OUTSIDE RECORDS SUMMARY | 2024-07-15 01:35 | XMS_ITS | Encounter Summary ---
Author Organization [facility] Address [facility] [place] [address] Care Team Providers Care Solar Photovoltaic Electrician Name Role Phone Anuja Cai APRN Primary Care Provider [phone] Encounter Details Date Type Department Care Team (Latest Contact Info) Description 01/26/2024 12:29 PM EDT - 01/26/2024 11:59 PM EDT Hospital Encounter XRay at [address] [place] [address] Kp Erazo MD [facility] [place] [address] Right knee pain, unspecified chronicity Discharge Disposition: [...] 02/16/24 07/29/2021 fluticasone propionate (Flonase) 50 mcg/actuation [place], Suspension SPRAY ONE SPRAY IN EACH NOSTRIL TWICE A DAY 08/07/2021 fluconazole (Diflucan) 150 mg Tablet Take 150 mg by mouth as needed. 07/25/2021 naproxen (Naprosyn) 500 mg tabletIndications:Polya rthralgia Take 1 tablet by mouth 2 times daily (with meals). 60 tablet 3 04/16/2023 04/18/2024 cetirizine (ZyrTEC) 1 mg/mL Solution Take by mouth. 02/16/2024 CadeeTouch Verio test strips Strip 11/20/2022 02/16/2024 blood-glucose [...] 12:00 PM EDT Office [place] [address] Britt Zurita MD [facility] [place] [address] documented as of this encounter Procedures Procedure [...] have questions please contact the health healthcare representative that requested your imaging first. ? Narrative [...] who have questions please contactthe health healthcare representative that requested your imaging first. Kp Erazo MD IMG DX ORDERABLES documented in this encounter Visit Diagnoses Diagnosis Right knee pain, unspecified chronicity documented in this encounter Care Teams Solar Photovoltaic Electrician Relationship Specialty Start Date End Date Anuja Cai APRN [address] [facility] [place] [address] PCP - General Internal Medicine 07/25/21 documented as of this encounter
--- OUTSIDE RECORDS SUMMARY | 2024-07-15 01:35 | XMS_ITS | Encounter Summary ---
Author Organization [facility] Address [facility] [place] [address] Care Team Providers Care Green Lumber Grader Name Role Phone Anuja Cai APRN Primary Care Provider [phone] Encounter Details Date Type Department Care Team [...] 12:00 PM EDT Office [place] [address] Britt Zurita MD [facility] [place] [address] documented as of this encounter Visit Diagnoses Not on filedocumented in this encounter Care Teams Green Lumber Grader Relationship Specialty Start Date End Date Anuja Cai APRN [address] [place], [place] [address] PCP - General Internal Medicine 07/25/21 documented as of this encounter
--- OUTSIDE RECORDS SUMMARY | 2024-07-15 01:35 | XMS_ITS | Encounter Summary ---
Author Organization [facility] Address [address] [place] [address] Care Team Providers Care International Account Executive Name Role Phone Ladonna Maurer Primary Care Provider [phone] Yair Dow MD Primary Care Provider [phone] Encounter Details Date Type Department Care Team (Late st Contact Info) Description 10/01/2004 Before PRISM Converted Visit (Maple) [facility] - Maple conversion [address] [place] [address] Yeimy Solorio, PhD [address] [place] [address] Social History Tobacco Use Types Packs/Day Years Used Date Smoking Tobacco: Never Assessed Sex and Gender Information Value Date Recorded Sex Assigned at Not on file Gender Identity Not on file Sexual Orientation Not on file documented as of this encounter Procedure Notes * German, Conv Php Mysql Developer - 06/12/2011 1222 EDT OPPROC LAKHANI 7 PROCEDURE / OPERATIVE REPORT NAME: TERI LAKE : 1980 MRN: [id number] DATE: 09/25/2004 SURGEON: ROBIN MDEINA MD ELECTRICAL MAINTENANCE SUPERVISOR: YEIMY SOLORIO MD, COOPER MEJIA MD PREOPERATIVE [...] vagina and uterus. A pediatric Ball of 8-Burkinan size was placed in the uterus and [...] cc. SPECIMENS: None. CULTURES: None. DRAINS: An 8-Burkinan pediatric Ball was placed in the uterus for the patient to go home with. COMPLICATIONS: None. CONDITION: Good. d - 09/25/2004 10:29:43 - YEIMY SOLORIO MD t - 10/01/2004 09:45:21 - mt Voice ID - [id number] Document ID - [id number] cc: ROBIN MEJIA MD RESIDENT VALERIA MCCARTHY MD, REFERRING PHYSICIAN YEIMY SOLORIO MD, <Dictator> This document has been electronically signed by ROBIN MEDINA MD on 10/02/2004 16:28:36. documented in this encounter Plan of Treatment Upcoming Encounters Date Type Department Care Team (Late st Contact Info) Description 12/29/2024 10:20 EST Office Visit [facility] Rheumatology & Immunology - [address] [address] Micaela Hoff MD [address] [place] [address], [address] [place] [phone] documented as of this encounter Visit Diagnoses Not on filedocumented in this encounter Care Teams International Account Executive Relationship Specialty Start Date End Date Ladonna Maurer PA [address] [place] [address] PCP - General 05/20/10 06/02/11 Yair Dow MD [address] [place] [address] PCP - General 06/03/11 03/08/12 documented as of this encounter
--- OUTSIDE RECORDS SUMMARY | 2024-07-15 01:35 | XMS_ITS | Encounter Summary ---
Author Organization [facility] Address [address] [place] [address] Care Team Providers Care Carding Doubler Name Role Phone Ladonna Maurer Primary Care Provider [phone] Encounter Details Date Type Department Care Team (Late st Contact Info) Description 05/31/2004 Results Only [facility] - Maple conversion [address] [place] [address] Rehan Overton MD [address] [phone] Social History Tobacco Use Types Packs/Day Years [...] [facility] - [facility] [address] [place], [place] [address] Micaela Hoff MD [address] [facility], Level [address] [place] [phone] documented as of this encounter Procedures Procedure [...] BLOOD GA S ORDERABLES Performing Organization Address City/State/[facility] Co de Phone Number [facility] [address] [place] [address] documented in this encounter Visit Diagnoses Not on filedocumented in this encounter Care Teams Carding Doubler Relationship Specialty Start Date End Date Ladonna Maurer PA [address] [place] [address] PCP - General 05/20/10 06/02/11 documented as of this encounter
--- OUTSIDE RECORDS SUMMARY | 2024-07-15 01:35 | XMS_ITS | Encounter Summary ---
Author Organization [facility] Address [address] [place] [address] Care Team Providers Care Inside Sales Assistant Name Role Phone Ladonna Maurer Primary Care Provider [phone] Encounter Details Date Type Department Care Team (Late st Contact Info) Description 02/06/2004 Results Only [facility] - Maple conversion [address] [place] [address] Sonya Florentino [address] [place] [place] [address] Social History Tobacco Use Types Packs/Day Years [...] [facility] Rheumatology & Immunology - [facility] [address] [place], [place] [address] Micaela Hoff MD [address] [facility], [address] [place] [phone] documented as of this encounter Procedures Procedure Name Priority Date/Time Associated Diagnosis Comments GROUP A STREP CULTURE Routine 02/06/2004 15:06 EDT documented in this encounter Results * PHARYNGITIS CULTURE (02/06/2004 15:06 EDT) Specimen Description Throat [facility] Result Few STREPTOCOCCUS , BETA HEMOLYTIC GROUP A (STREPTOCOCCU S PYOGENES) Few Usual karen-pharyngea l marquita Supplementary report. [facility] Report Status Final [id number] [facility] 02/06/2004 15:0 6 EDT 02/06/2004 20:09 EDT Sonya Florentino MICROBIOLOGY - GENER AL ORDERABLES [facility] [address] [place] [address] documented in this encounter Visit Diagnoses Not on filedocumented in this encounter Care Teams Inside Sales Assistant Relationship Specialty Start Date End Date Ladonna Maurer PA [address] [place] [address] PCP - General 05/20/10 06/02/11 documented as of this encounter
--- OUTSIDE RECORDS SUMMARY | 2024-07-15 01:35 | XMS_ITS | Encounter Summary ---
Author Organization [facility] Address [address] [place] [address] Care Team Providers Care Senior Software Manager Name Role Phone Ladonna Maurer Primary Care Provider [phone] Encounter Details Date Type Department Care Team (Late st Contact Info) Description 12/29/2003 Results Only [facility] - Maple conversion [address] [place] [address] Stephany Adkins DO [facility] STAFF MAIL [address] [place] [address] Social History Tobacco Use Types Packs/Day Years [...] [facility] Rheumatology & Immunology - [facility] [address] [place], [place] [address] Micaela Hoff MD [address] [facility], [address] [place] [phone] documented as of this encounter Procedures Procedure [...] Result No Neisseria gonorrhoeae DNA detected by production technologist mediated amplification. [facility] Report Status Final [id number] [facility] Specimen Description Urine [facility] 12/29/2003 16:0 6 EST 12/29/2003 18:59 EST Stephany A Lucille DO MICROBIOLOGY - GENER AL ORDERABLES Performing Organization Address City/[facility] Co de Phone Number [facility] [address] [place] [address] * GLUCOSE, SERUM (12/29/2003 16:06 EST) Glucose, Serum 97 70 - 110 mg/dl [facility] 12/29/2003 16:0 6 EST 12/29/2003 18:46 EST Stephany A Lucille DO CHEMISTRY & BLOOD GA S ORDERABLES Performing Organization Address City/[facility]/ZIP Co de Phone Number [facility] [address] [place] [address] * HDL (12/29/2003 16:06 EST) HDL 38 mg/dl [facility] Comment: Highly Desirable:>60 Desirable:35-60 High Risk:<35 12/29/2003 16:0 6 EST 12/29/2003 18:46 EST Stephany A Lucille DO CHEMISTRY & BLOOD GA S ORDERABLES Performing Organization Address City/[facility]/ZIP Co de Phone Number [facility] [address] [place] [address] * CHOLESTEROL (12/29/2003 16:06 EST) Cholesterol 149 mg/dl [facility] Comment: Desirable:<200 Borderline:200-239 High Risk:>xi=173 12/29/2003 16:0 6 EST 12/29/2003 18:46 EST Stephany Adkins DO CHEMISTRY & BLOOD GA S ORDERABLES Performing Organization Address [facility] Co de Phone Number [facility] [address] [place] [address] * CHLAMYDIA TRACHOMATIS AMPLIFIED PROBE (12/29/2003 16:06 EST) Specimen Description Urine [facility] Result No Chlamydia trachomatis DNA detected by production technologist mediated amplification. [facility] Report Status Final [id number] [facility] 12/29/2003 16:0 6 EST 12/29/2003 18:58 EST Stephany Adkins DO MICROBIOLOGY - GENER AL ORDERABLES Performing Organization Address [facility] de Phone Number [facility] [address] [place] [address] documented in this encounter Visit Diagnoses Not on filedocumented in this encounter Care Teams Senior Software Manager Relationship Specialty Start Date End Date Ladonna Maurer PA [address] [place] [address] PCP - General 05/20/10 06/02/11 documented as of this encounter
--- OUTSIDE RECORDS SUMMARY | 2024-07-15 01:35 | XMS_ITS | Encounter Summary ---
Author Organization [facility] Address [address] [place] [address] Care Team Providers Care Press Feeder Broomcorn Name Role Phone Unavailable Primary Care Provider Unavailabl e Encounter Details Date Type Department Care Team (Latest Contact Info) Description 02/23/2006 17:24 EDT Hospital Encounter [facility] Emergency Department - [address] [address] Emergency, MD Fede Discharge Disposition: Home or [...] / [facility] Rheumatology & Immunology - [facility] [address] [place], [place] [address] Micaela Hoff MD [address] [facility], [address] [place] [address] documented as of this encounter Visit Diagnoses Not on filedocumented in this encounter
--- OUTSIDE RECORDS SUMMARY | 2024-07-15 01:35 | XMS_ITS | Encounter Summary ---
Author Organization [facility] Address [address] [place] [address] Care Team Providers Care Residential Finish Carpenter Name Role Phone Ladonna Maurer Primary Care Provider Encounter Details Date Type Department Care Team (Late st Contact Info) Description 03/03/2003 Results Only [facility] - Maple conversion [address] [place] [address] [address] Cerrato [address] [address] Social History Tobacco Use Types Packs/Day Years [...] [facility] [address] [place], [place] [address] Micaela Hoff MD [address] [facility], [address] [place] [address] documented as of this encounter [...] ? TERI CROWE ? Accession #: ? [id number] : ? 1980 (Age: 22) ??F ?Collect [...] Ashley BLAIRP PATHOLOGY ORDERABLES [facility] [address] [place] [address] documented in this encounter Visit Diagnoses Not on filedocumented in this encounter Care Teams Residential Finish Carpenter Relationship Specialty Start Date End Date Ladonna Maurer PA [address] [place] [address] PCP - General 05/20/10 06/02/11 documented as of this encounter
--- OUTSIDE RECORDS SUMMARY | 2024-07-15 01:35 | XMS_ITS | Encounter Summary ---
Author Organization [facility] Address [address] [place] [address] Care Team Providers Care Cyber Legal Advisor Name Role Phone Unavailable Primary Care Provider Unavailabl e Encounter Details Date Type Department Care Team (Late st Contact Info) Description 12/09/2004 16:17 EST Hospital Encounter [facility] - Other [address] [place] [address] Susy Aguilera MD [address] [place] [phone] Social History Tobacco Use Types Packs/Day Years [...] 12/29/2024 10:20 EST Office Visit [facility] Rheumatology & Immunology - [facility] [address] [place], [place] [phone] Micaela Hoff MD [address] [facility], [address] [place] [phone] documented as of this encounter Procedures Procedure Name Priority Date/Time Associated Diagnosis Comments SNF MOLASSES PREPARER Routine 01/06/2005 3:30 EST documented in this encounter Results * SNF MOLASSES PREPARER (01/06/2005 3:30 EST) Anatomical Region Laterality Modality Other 01/06/2005 3:30 EST Narrative 06/28/2009 11:21 EDT [facility] TRANSVAGINAL ULTRASOUND/SONOHYSTEROGRAM - 01/06/05 INDICATION: S/p [...] Procedure Note Robin Garay MD - 06/28/2009 [facility] TRANSVAGINAL ULTRASOUND/SONOHYSTEROGRAM - 01/06/05 INDICATION: S/p [...] - 01/07/05 Linda Bustillos MD IMG US SNF ORDERABLE S documented in this encounter Visit Diagnoses Not on filedocumented in this encounter Additional Health Concerns Infection Onset Date Last Indicated Resolved Time MRSA 10/20/2011 10/20/2011 documented as of this encounter
--- OUTSIDE RECORDS SUMMARY | 2024-07-15 01:35 | XMS_ITS | Encounter Summary ---
Author Organization [facility] Address [address] [place] [address] Care Team Providers Care Pets Salesperson Name Role Phone Unavailable Primary Care Provider Unavailabl e Encounter Details Date Type Department Care Team (Latest Contact Info) Description 01/18/2001 15:59 EST Hospital Encounter [facility] - Other [address] [place] [address] Georgiana Roberto MD [address] [place] [phone] Unknown, Provider, Discharge Disposition: Auto Discharge Social [...] [facility] Rheumatology & Immunology - [facility] [address] [place], [place] [address] Micaela Hoff MD [address] [facility], [address] [place] [phone] documented as of this encounter Procedures Procedure [...] ? TERI LAKE ? Accession #: ? [id number] : ? 1980 (Age: 20) ??F ?Collect Date: ? 01/18/2001 Location: ? [facility] ? Receive Date: ? 01/25/2001 Provider: ?GEORGIANA ROBERTO MD Copy to: ? [facility] ? [place] [facility] ? [address] ? [place] [address] ? Specimen/Source: ?ThinPrep Pap Test, Cervix/Endocervix Last [...] Zhu MD PATHOLOGY ORDERABLES Performing Organization Address City/State/[facility] Co de Phone Number [facility] [address] [place] [address] documented in this encounter Visit Diagnoses Not on filedocumented in this encounter
--- OUTSIDE RECORDS SUMMARY | 2024-07-15 01:35 | XMS_ITS | Encounter Summary ---
Author Organization [facility] Address [facility] [place] [address] Care Team Providers Care Surgical Clinical Reviewer Name Role Phone Anuja Cai APRN Primary Care Provider [phone] Encounter Details Date Type Department Care Team [...] EDT Office [place] [address] Britt Zurita MD [facility] [place] [address] documented as of this encounter Visit Diagnoses Not on filedocumented in this encounter Care Teams Surgical Clinical Reviewer Relationship Specialty Start Date End Date Anuja Cai APRN [address], [place] [address] PCP - General Internal Medicine 07/25/21 documented as of this encounter
--- OUTSIDE RECORDS SUMMARY | 2024-07-15 01:35 | XMS_ITS | Encounter Summary ---
Author Organization [facility] Address [address] [place] [address] Care Team Providers Care It Field Technician Name Role Phone Unavailable Primary Care Provider Unavailabl e Encounter Details Date Type Department Care Team (Late st Contact Info) Description 04/06/2006 10:30 EDT Hospital Encounter [facility] - [facility] conversion [address] [place], [place] [address] Justus Bond MD [address] [place] [address] [place] [phone] Social History Tobacco Use Types Packs/Day Years [...] [facility] Rheumatology & Immunology - [facility] [address], [place] [phone] Micaela Hoff MD 111 [facility], Level 5 [place] [phone] documented as of this encounter Visit Diagnoses Not on filedocumented in this encounter Additional Health Concerns Infection Onset Date Last Indicated Resolved Time MRSA 10/20/2011 10/20/2011 documented as of this encounter
--- OUTSIDE RECORDS SUMMARY | 2024-07-15 01:35 | XMS_ITS | Encounter Summary ---
Author Organization [facility] Address [address] [place] [address] Care Team Providers Care Maintenance Trainer Name Role Phone Unavailable Primary Care Provider Unavailabl e Encounter Details Date Type Department Care Team (Late st Contact Info) Description 04/29/2006 14:54 EDT Hospital Encounter [facility] - Maple conversion [address], [place] [address] Justus Bond MD [address] [place] [address] [place] [phone] Social History Tobacco Use Types Packs/Day Years [...] [facility] - [facility] [address], [place] [phone] Micaela Hoff MD [address] [facility], Level 5 [place] [phone] documented as of this encounter Visit Diagnoses Not on filedocumented in this encounter Additional Health Concerns Infection Onset Date Last Indicated Resolved Time MRSA 10/20/2011 10/20/2011 documented as of this encounter
--- OUTSIDE RECORDS SUMMARY | 2024-07-15 01:35 | XMS_ITS | Encounter Summary ---
Author Organization [facility] Address [address] [place] [address] Care Team Providers Care Dexigraph Operator Name Role Phone Ladonna Maurer Primary Care Provider [phone] Encounter Details Date Type Department Care Team (Late st Contact Info) Description 03/06/2004 Results Only [facility] Family Medicine [address] [address] Gustavo Smith MD [address] [phone] Social History Tobacco Use Types Packs/Day Years [...] [facility] [address] [place], [place] [phone] Micaela Hoff MD 111 [facility], Level 5 [place] [address] documented as of this encounter [...] GA S ORDERABLES [facility] [address] [place] [address] * HEMAGRAM AND DIFFERENTIAL (03/06/2004 17:29 EDT) Pathologist [facility] WBC 7.83 4.0 - 12.4 K/cmm [...] DNA PROBE ORDERABLES [facility] [address] [place] [address] documented in this encounter Visit Diagnoses Not on filedocumented in this encounter Care Teams Dexigraph Operator Relationship Specialty Start Date End Date Ladonna Maurer PA [address] [place] [address] PCP - General 05/20/10 06/02/11 documented as of this encounter
--- OUTSIDE RECORDS SUMMARY | 2024-07-15 01:35 | XMS_ITS | Encounter Summary ---
Author Organization [facility] [place] [address] Care Team Providers Care Oracle Soa Developer Name Role Phone Anuja Cai APRN Primary Care Provider [phone] Encounter Details Date Type Department Care Team ([facility] st Contact Info) Description 02/16/2024 11:00 AM EDT [place] [phone] Britt Zurita MD [facility] [place] [address] Polyarthralgia Social History Tobacco Use Types Packs/Day [...] was 40 minutes. Britt Zurita MD Staff [place], [address] documented in this encounter Plan of Treatment Upcoming Encounters Date Type Department Care Team (Late st Contact Info) Description 08/17/2024 12:00 PM EDT [place] [address] Britt Zurita MD [facility] [place] [address] documented as of this encounter Results * [...] who have questions please contact the health lawn care specialist that requested your imaging first. ? Narrative [...] sites documented in this encounter Care Teams Oracle Soa Developer Relationship Specialty Start Date End Date Anuja Cai APRN [address] [place] [address] PCP - General Internal Medicine 07/25/21 documented as of this encounter
--- OUTSIDE RECORDS SUMMARY | 2024-07-15 01:35 | XMS_ITS | Encounter Summary ---
Author Organization [facility] Address [facility] [place] [address] Care Team Providers Care Information Systems Planner Name Role Phone Anuja Cai APRN Primary Care Provider [phone] Encounter Details Date Type Department Care Team [...] 12:00 PM EDT [place] [address] Britt Zurita MD [facility] [place] [address] documented as of this encounter Visit Diagnoses Not on filedocumented in this encounter Care Teams Information Systems Planner Relationship Specialty Start Date End Date Anuja Cai APRN [address] [place], [place] [address] PCP - General Internal Medicine 07/25/21 documented as of this encounter
--- OUTSIDE RECORDS SUMMARY | 2024-07-15 01:35 | XMS_ITS | Clinical Summary ---
Author Organization [facility] [place] [address] Care Team Providers Care Coating Machine Operator Name Role Phone Anuja Cai APRN Primary Care Provider [phone] Allergies Active Allergy Reactions Criticality Noted Date [...] 07/29/2021 Active fluticasone propionate (Flonase) 50 mcg/actuation [place], Suspension SPRAY ONE SPRAY IN EACH NOSTRIL [...] Care Team Description 04/18/2024 [place] [address] Britt Zurita MD Polyarthralgia from Last 3 [...] 12:00 PM EDT [place] [address] Britt Zurita MD [facility] [place] [address] Health Maintenance Due Date Last Done Comments [...] AM EDT Polyarthralgia HIV SCREEN, 4TH GENERATION ([facility]/CGP/APD/NLH) Routine 04/27/2013 2:31 PM EDT Fatigue Night sweats COMPLAINT EVALUATION SUPERVISOR MOLECULAR GENETICS REPORT Routine 04/14/2013 3:59 PM EDT COMPLAINT EVALUATION SUPERVISOR CYTOLOGY FINAL REPORT Routine 04/14/2013 3:59 PM EDT from Last 3 Months or Most Recently Relevant to Health Maintenance Results * Comprehensive metabolic panel (non-fasting) (04/02/2023 11:00 AM EDT) Glucose 95 65 - 199 mg/dL [facility] Comment:Diabetes: >=200 mg/d L plus symptoms Blood Urea Nitrogen 12 8 - 18 mg/dL [facility] Creatinine 0.93 0.70 - 1.20 mg/dL [facility] Sodium 138 135 - 145 mmol/L [facility] Potassium 3.8 3.5 - 5.0 mmol/L [facility] Comment: Please note: ??Patients with WBC >100,000 may have falsely elevated Potassium levels. ??For accurate Potassium quantification in these patients send serum separator tube (gold top) for subsequent determinations. ??Contact the Clinical Chemistry Laboratory if there are any questions. Chloride 101 98 - 107 mmol/L [facility] Carbon Dioxide 27 22 - 31 mmol/L [facility] Anion Gap 10 5 - 15 mmol/L [facility] Calcium 9.6 8.5 - 10.5 mg/dL [facility] Protein, Total 7.5 6.1 - 8.0 g/dL [facility] Albumin 4.7 3.2 - 5.2 g/dL [facility] Aspartate Aminotransferase 19 0 - 30 unit/L [facility] Alanine Aminotransferase 16 0 - 30 unit/L [facility] Alkaline Phosphatase 57 35 - 105 unit/L [facility] Bilirubin, Total 0.4 0.2 - 1.3 mg/dL [facility] Est Glomerular Filtration Rate 79 >=60 mL/min/1. 73 m?? [facility] Comment: This patient's estimated GFR was [...] MD CHEMISTRY ORDERABLE S Performing Organization Address [facility] [place] [address] * HIV (04/27/2013 2:31 PM EDT) [facility] HIV 1/2 Ab Negative [facility] Blood specimen (specimen) 04/27/2013 2:31 PM EDT 04/27/2013 2:38 PM EDT Narrative Resulting Agency Comment Spec In Lab Anila Serna MD CHEMISTRY ORDERABLE S Performing Organization Address [facility] Co de Phone Number [facility] * COMPLAINT EVALUATION SUPERVISOR Molecular Genetics Report (04/14/2013 3:59 PM EDT) [facility] COMPLAINT EVALUATION SUPERVISOR Molecular Genetics Report ? [facility] ? Provider: ?? LIYA SILVA Pt. Name: ?? TERI CROWE ? Acc #: ?[id number] ?Pt. ? Col Date: ?? 04/14/2013 ? [...] Based Prep ? Reviewed by: ??Willian Marroquin, [facility] ? A ?VCELD Vag/Cerv/Endo/L BP/Diagnostic ? B ?HPVDO Do HPV Testing ? Verified date: ??04/21/13 ??ABH ? Verified by: ?Lab Review, Molecular Genetics ? (Electronic Signature) RUBEN BENNETT 04/14/2013 3:59 PM EDT Liya Silva RUN LEAD PATHOLOGY/CYTOLO GY ORDERABLES RUBEN BENNETT * Cod Clerk Cytology Final Report (04/14/2013 3:59 PM EDT) Cod Clerk Cytology Final Report ? [facility] ? Provider: ?? LIYA SILVA Pt. Name: ?? TERI CROWE ? Acc #: ?[id number] ?Pt. ? Col Date: ?? 04/14/2013 ? /Sex: ?1980,(33 years),Female ? Rec Date: ?? 04/14/2013 ? LOC: ?[facility] ? CYTOPATHOLOGY: ??COMPLAINT EVALUATION SUPERVISOR ? ---Adequacy--- ? Specimen submitted is satisfactory [...] ? These guidelines were published in the [place] Journal of Obstetrics and ? Gynecology (2007;197(4):346-3 55). ? 04/21/13 ?? Screened by: ??SLA ??EGG AND SPICE MIXER ? 04/22/13 ?? Verified by: ??BELKYS OCONNELL MD - Pathologist ? ---Comment--- ? Please also see concurrent HPV test result. ? ---Clinical Information--- ? HPV Option: ? Concurrent HPV ? Preparation: ?Liquid Based Pap ? Specimen Source: ?Vag/Cerv/Endo/LB P/Diagnostic ? LMP: ?04/03/13 ? Hormones?: ?No ? Hysterectomy?: ?No ?: ?No ?: ?No ? I.U.D.?: ?No ? Pelvic Radiation: ? No ? Prior COMPLAINT EVALUATION SUPERVISOR Therapy?: ? Other (comment) ? Hist Abnl Pap/Biopsy?: ??Yes, history of previous abnormal Pap ? Hist of HPV Vaccine?: ?? No ? Hist of Smoking?: ? Yes ? [facility] ? Provider: ?? LIYA SILVA Pt. Name: ?? TERI CROWE ? Acc #: ?[id number] ?Pt. ? Col Date: ?? 04/14/2013 ? /Sex: ?1980,(33 years),Female ? Rec Date: ?? 04/14/2013 ? LOC: ?[facility]PN ? CYTOPATHOLOGY: ??COMPLAINT EVALUATION SUPERVISOR ? Hist of MAR exposure?: ??No ? Clinical Data, Significant Therapy and Clinical Impression: ? This Pap Test has been evaluated with the assistance of the ThinPrep Pap ? Test Imaging System. ? Note: ? The Pap test is a screening test for cervical cancer with an inherent ? false-negative rate dependent upon several variables. ??For further ? information please contact the [facility] Laboratory. ? Reference: ??Julianne SINGH. ??Associate Professor Of Mathematics of Pap Smear Results. ??In: ? Suri BS, Silvestre HH, ed. ??The Pap Smear. ??[place]: ??Willian, 2002: ? 71-77. RUBEN BENNETT 04/14/2013 3:59 PM EDT Liya Silva RUN LEAD PATHOLOGY/CYTOLO GY ORDERABLES RUBEN BENNETT from Last 3 Months or Most Recently Relevant to Health Maintenance Care Teams Coating Machine Operator Relationship Specialty Start Date End Date Anuja Cai APRN [address] [place], [place] [phone] PCP - General Internal Medicine 07/25/21
--- OUTSIDE RECORDS SUMMARY | 2024-07-15 01:35 | XMS_ITS | Encounter Summary ---
Author Organization [facility] [place] [address] Care Team Providers Care Fur Machine Operator Name Role Phone TrellAnuja APRN Primary Care Provider [phone] Reason for Referral * Diagnostic Test (Routine) - Closed Specialty Diagnoses / Procedures Referred By Contac t Referred To Contact Radiology Diagnoses Opacity of lung on imaging study Procedures CT Chest wo Contrast (Generic) Britt Zurita MD [facility] [place] [address] [facility] [place] [address] Referral ID Status Reason Start Date Expiration Date V isits Requested Visits Authorized [id number] Closed Specialty Service Requested 02/17/2024 08/18/2025 1 1 Reason for Visit * Diagnostic Test (Routine) - Closed Specialty Diagnoses / Procedures Referred By Contac t Referred To Contact Radiology Diagnoses Opacity of lung on imaging study Procedures CT Chest wo Contrast (Generic) Britt Zurita MD [facility] [place] [address] [facility] [place] [address] Referral ID Status Reason Start Date Expiration Date V isits Requested Visits Authorized [id number] Closed Specialty Service Requested 02/17/2024 08/18/2025 1 1 Encounter Details Date Type Department Care Team (Latest Contact Info) Description 02/19/2024 10:29 AM EDT - 02/19/2024 11:59 PM EDT Hospital Encounter CT Scan at [facility] [place] [address] Britt Zurita MD [facility] [place] [address] Opacity of lung on imaging study Discharge [...] 02/16/24 07/29/2021 fluticasone propionate (Flonase) 50 mcg/actuation [place], Suspension SPRAY ONE SPRAY IN EACH NOSTRIL [...] EDT Office [place] [address] Britt Zurita MD [facility] [place] [address] documented as of this encounter Procedures Procedure Name Priority Date/Time Associated Diagnosis Comments CT CHEST WO CONTRAST (GENERIC) Routine 02/19/2024 10:43 AM EDT Opacity of lung on imaging study documented in this encounter Results * CT Chest wo Contrast (Generic) (02/19/2024 10:43 AM EDT) frintit WORKSTATION ID [id number] RAD Anatomical Region Laterality Modality Chest Computed [...] have questions please contact the health healthcare manager that requested your imaging first. ? Electronically signed by: Rebecca Escalera MD, [facility] ([phone]), at 02/21/2024 6:30 AM Narrative 02/21/2024 6:30 [...] who have questions please contactthe health healthcare manager that requested your imaging first. Electronically signed by: Rebecca Escalera MD, [facility] ([phone]), at 02/21/2024 6:30 AM Britt Zurita MD IMG CT ORDERABLES documented in this encounter Visit Diagnoses Diagnosis Opacity of lung on imaging study documented in this encounter Care Teams Fur Machine Operator Relationship Specialty Start Date End Date Anuja Cai APRN [address] [place] [address] PCP - General Internal Medicine 07/25/21 documented as of this encounter
--- OUTSIDE RECORDS SUMMARY | 2024-07-15 01:35 | XMS_ITS | Encounter Summary ---
Author Organization [facility] Address [address] [place] [address] Care Team Providers Care Senior Technical Architect Name Role Phone Unavailable Primary Care Provider Unavailabl e Encounter Details Date Type Department Care Team (Late st Contact Info) Description 03/06/2004 17:51 EDT Hospital Encounter [facility] - Other [address] [place], [place] [phone] Gustavo Smith MD [address] [phone] Social History Tobacco Use Types Packs/Day Years [...] [facility] Immunology - [facility] [place] [address] [place], [place] [phone] Micaela Hoff MD 111 [facility], Level [address] [place] [address] (work) documented as of this encounter Visit Diagnoses Not on filedocumented in this encounter Additional Health Concerns Infection Onset Date Last Indicated Resolved Time MRSA 10/20/2011 10/20/2011 documented as of this encounter
--- OUTSIDE RECORDS SUMMARY | 2024-07-15 01:36 | XMS_ITS | Encounter Summary ---
Author Organization [facility] [place] [address] Care Team Providers Care Industrial Relations Analyst Name Role Phone Unavailable Primary Care Provider Unavailabl e Reason for Visit * Reason Comments Otalgia Encounter Details Date Type Department Care Team ([facility] st Contact Info) Description 04/20/2013 7:31 AM EDT - 04/20/2013 7:49 AM EDT Emergency [place] [address] Ilia Johnson MD [facility] [place] [address] Acute serous otitis media (Primary Dx) Discharge [...] twice a day x3 days. Oral decongestants [id number]. Followup with primary care physician if no [...] 12:00 PM EDT Office Visit [place] [address] Britt Zurita MD [facility] [place] [address] documented as of this encounter Visit Diagnoses Diagnosis Acute serous otitis media- Primary documented in this encounter
--- OUTSIDE RECORDS SUMMARY | 2024-07-15 01:36 | XMS_ITS | Encounter Summary ---
Author Organization [facility] [place] [address] Care Team Providers Care Leather Cleaner Name Role Phone Unavailable Primary Care Provider Unavailabl e Encounter Details Date Type Department Care Team (Late st Contact Info) Description 04/10/2013 9:36 AM EDT - 04/10/2013 10:10 AM EDT [place] [phone] Skyler Torrez PA [address] [place] [address] EMERGENCY DEPT, [facility] [place] [address] Otitis media (Primary Dx) Discharge Disposition: Home [...] IN ADULTS (OTITIS MEDIA): AFTER YOUR VISIT ([facility]) documented in this encounter Medications at Time [...] 12:00 PM EDT [place] [address] Britt Zurita MD [facility] [place] [address] documented as of this encounter Visit Diagnoses Diagnosis Otitis media- Primary Unspecified otitis media documented in this encounter
--- OUTSIDE RECORDS SUMMARY | 2024-07-15 01:36 | XMS_ITS | Encounter Summary ---
Author Organization [facility] [place] [address] Care Team Providers Care Photo Lab Manager Name Role Phone Anuja Cai APRN Primary Care Provider [phone] Encounter Details Date Type Department Care Team (Latest Contact Info) Description 09/29/2021 5:28 PM EST - 09/29/2021 11:59 PM EST [place] [phone] Discharge Disposition: Home Social History Tobacco Use [...] 02/16/24 07/29/2021 fluticasone propionate (Flonase) 50 mcg/actuation [place], Suspension SPRAY ONE SPRAY IN EACH NOSTRIL [...] 12:00 PM EDT Office [place] [address] Britt Zurita MD [facility] [place] [address] documented as of this encounter Procedures Procedure Name Priority Date/Time Associated Diagnosis Comments CALPROTECTIN,STOOL Routine 09/29/2021 3: 30 PM EST ELASTASE, STOOL Routine 09/29/2021 3:30 PM EST documented in this encounter Results * Elastase, Stool (09/29/2021 3:30 PM EST) Elastase Stool (QST) >500 mcg/g [facility] Comment: Adult and Pediatric Reference Ranges for ??Pancreatic Elastase-1: ? Normal: ?>200 mcg/g Moderate Pancreatic ?Insufficiency: ?? 100-200 mcg/g ??Severe Pancreatic ?Insufficiency: ?<100 mcg/g Elastase-1 (E-1) assay results are expressed in mcg/g, which represent mcg E1/g feces. It is not necessary to interrupt enzyme substitution therapy. Test performed by [facility] ?[address], ?[place] [address] ? Virtual Reality Specialist: Diana Fraga MD,PHD,GERARDO Test Reported by Cecile Lazaro, linkedü [facility], [address] [place], [place] Skyler Turner M.D., Ph.D., Director of Laboratories , [place] [id number] Stool Other / Unknown 09/29/2021 3 :30 PM EST 10/01/2021 9:57 AM EST Narrative Resulting Agency Comment Spec In Lab Carla Jose APRN LAB SEND OUT [facility] [place] [address] * (ABNORMAL) Calprotectin, Stool (09/29/2021 3:30 PM EST) Calprotectin, Stool 342(H) <=79 mcg/g [facility] Comment: Calprotectin Concentration ? Interpretation ? < 80 mcg/g ?Normal ? 80 ? 160 mcg/g ?Borderline ? >160 mcg/g ?Elevated Stool Other / Unknown 09/29/2021 3 :30 PM EST 09/30/2021 12:32 PM EST Narrative Resulting Agency Comment Spec In Lab Carla Jose APRN BODY FLUIDS AND STO OLS ORDERABLES Performing Organization Address City/State/[facility] Co de Phone Number [facility] [place] [address] documented in this encounter Visit Diagnoses Not on filedocumented in this encounter Care Teams Photo Lab Manager Relationship Specialty Start Date End Date Anuja Cai APRN [address] [facility] [place] [address] PCP - General Internal Medicine 07/25/21 documented as of this encounter
--- OUTSIDE RECORDS SUMMARY | 2024-07-15 01:36 | XMS_ITS | Encounter Summary ---
Author Organization [facility] [place] [address] Care Team Providers Care Underground Drill Operator Name Role Phone Unavailable Primary Care Provider Unavailabl e Reason for Referral * Consultation (Routine) - Closed Specialty Diagnoses / Procedures Referred By Contmaya t Referred To Contact Obstetrics and Gynecology Diagnoses Abnormal Pap smear Liya Silva SUPERVISOR [employer] [facility] [place] [address] [facility] Metal Cleaner [address] [place] [phone] Referral ID Status Reason Start Date Expiration Date V isits Requested Visits Authorized [id number] Closed Consult, Test & Treat 04/25/2013 10/22/2013 1 1 Encounter Details Date Type Department Care Team (Late st Contact Info) Description 04/25/2013 Orders Only Internal Medicine at [facility] [address] [place] [address] Liya Silva [facility] [place] [address] Abnormal Pap smear (Primary Dx); HPV in [...] LSIL and HPV positive. Will refer to WOOD VENEER TAPER for further evaluation. documented in this encounter Plan of Treatment Upcoming Encounters Date Type Department Care Team (Late st Contact Info) Description 08/17/2024 12:00 PM EDT [place] [address] Britt Zurita MD [facility] [place] [address] Scheduled Referrals Name Type Priority Associated Diagnoses Orde r Schedule Referral to Ob-Business Control Specialist Outpatient Referral Routine Abnormal Pap smear Ordered: 04/25/2013 documented as of this encounter Visit Diagnoses Diagnosis Abnormal Pap smear- Primary Other nonspecific abnormal finding HPV in female Human papillomavirus in conditions classified elsewhere and of unspecified site documented in this encounter
--- OUTSIDE RECORDS SUMMARY | 2024-07-15 01:36 | XMS_ITS | Encounter Summary ---
Author Organization Formerly [facility] [place] [address] Care Team Providers Care Student Life Coordinator Name Role Phone Anuja Cai APRN Primary Care Provider [phone] Encounter Details Date Type Department Care Team (Late st Contact Info) Description 09/30/2021 1:00 PM EST - 09/30/2021 2:00 PM EST [place] [phone] Guilherme Rock MD [facility] [place] [address] EGD WITH BIOPSY (WRVU 2.39) Social History [...] the day after the procedure, use an qwrf-zki-bfxwvik spray to numb your throat. Sucking on [...] occurs, please contact your Doctor. Please call [phone] before 8pm Mon-Fri with problems, questions or concerns. If you call after 8pm or on weekends, call the Hospital at [phone] and ask to speak to the Accounting File Clerk nursing consultant and the head bander and liner operator will contact that person for you. When should you call for help? Call [phone] anytime you think you may need emergency [...] any problems. Where can you learn more? [facility] View your After Visit Summary and more online at [email or web address] If you would like to provide feedback about your hospital experience, please call the Office of Patient and Family Relations at . If you have received this After Visit Summary in error, please immediately return it in person to the department, or notify the [facility] Privacy Office by calling toll free at between the hours of 8AM and 5PM to arrange for our retrieval of the documents at no cost to you. Content Version: 12.2 ?? [id number] [employer]. Care instructions adapted under license by [facility]. If you have questions about a medical condition or this instruction, always ask your healthcare professional. [employer] disclaims any warranty or liability for your [...] occurs, please contact your Doctor. Please call [phone] before 8pm Mon-Fri with problems, questions or concerns. If you call after 8pm or on weekends, call the Hospital at [phone] and ask to speak to the Accounting File Clerk nursing consultant and the head bander and liner operator will contact that person for you. When should you call for help? Call [phone] anytime you think you may need emergency [...] any problems. Where can you learn more? [facility] View your After Visit Summary and more online at [email or web address] If you would like to provide [...] cost to you. Content Version: 12.2 ?? [phone] [employer]. Care instructions adapted under license by [facility]. If you have questions about a medical condition or this instruction, always ask your healthcare professional. [employer] disclaims any warranty or liability for your [...] 02/16/24 07/29/2021 fluticasone propionate (Flonase) 50 mcg/actuation [place], Suspension SPRAY ONE SPRAY IN EACH NOSTRIL [...] Mena thyroiditis Z86.39 ??? Abnormal Pap smear [id number] ??? 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 EXAM: HEENT: [...] 12:00 PM EDT Office [place] [address] Britt Zurita MD [facility] [place] [address] documented as of this encounter Procedures Procedure Name Priority Date/Time Associated Diagnosis Comments SPECIMEN TO PATHOLOGY Routine 09/30/2021 1:46 PM EST SPECIMEN TO PATHOLOGY Routine 09/30/2021 1:25 PM EST SPECIMEN TO PATHOLOGY Routine 09/30/2021 1:25 PM EST SPECIMEN TO PATHOLOGY Routine 09/30/2021 1:25 PM EST SURGICAL PATHOLOGY REPORT Routine 09/30/2021 1:19 PM EST Colonoscopy, Diagnostic ([id number]) 09/30/2021 1:03 PM EST Colonoscopy with biopsies to rule out IBD/microscopic colitis EGD/Waters ON PPI Upper Gi Endoscopy, Biopsy ([id number]) 09/30/2021 1:03 PM EST Colonoscopy with biopsies to rule out IBD/microscopic colitis EGD/Waters ON PPI UPPER GI ENDOSCOPY Routine 09/30/2021 12 :19 PM EST COLONOSCOPY Routine 09/30/2021 12:18 PM EST documented in this encounter Results * Specimen to Pathology (09/30/2021 1:46 PM EST) AP Specimen 09/30/2021 1:46 PM EST 09/30/2021 1:46 PM EST Narrative [facility] - 09/30/2021 1:46 PM EST Specimen requisition ordered. ??Separate Pathology report to follow Guilherme Rock MD PATHOLOGY/CYTOLOGY O RDERAVENICE [facility] [place] [address] * Specimen to Pathology (09/30/2021 1:25 PM EST) AP Specimen 09/30/2021 1:25 PM EST 09/30/2021 1:25 PM EST Narrative [facility] - 09/30/2021 1:25 PM EST Specimen requisition ordered. ??Separate Pathology report to follow Guilherme Rock MD PATHOLOGY/CYTOLOGY O LAZ Performing Organization Address [facility] [place] [address] * Specimen to Pathology (09/30/2021 1:25 PM EST) AP Specimen 09/30/2021 1:25 PM EST 09/30/2021 1:25 PM EST Narrative [facility] - 09/30/2021 1:25 PM EST Specimen requisition ordered. ??Separate Pathology report to follow Guilherme Rock MD PATHOLOGY/CYTOLOGY O LAZ Performing Organization Address [facility] [place] [address] * Specimen to Pathology (09/30/2021 1:25 PM EST) AP Specimen 09/30/2021 1:25 PM EST 09/30/2021 1:25 PM EST Narrative [facility] - 09/30/2021 1:25 PM EST Specimen requisition ordered. ??Separate Pathology report to follow Guilherme Rock MD PATHOLOGY/CYTOLOGY O LAZ Performing Organization Address [facility] [place] [address] * Surgical Pathology Report (09/30/2021 1:19 PM EST) Final Diagnosis [id number] ? Location: 4T; EA07; A The signing [...] Carmen Verified: ??10/07/2021 13:51 ??Pathologist Performed at: ??-[facility] Dept. of Pathology, [place], [place] SPECIMEN(S) SUBMITTED A - Duodenum R/O [...] labeled D1-D3. ??sns 10/07/2021 1:51 PM EST [facility] GI Biopsy 09/30/2021 1:19 PM EST 09/30/2021 1:19 PM EST GI Biopsy 09/30/2021 1:19 PM EST 09/30/2021 1:19 PM EST GI Biopsy 09/30/2021 1:19 PM EST 09/30/2021 1:19 PM EST GI Biopsy 09/30/2021 1:19 PM EST 09/30/2021 1:19 PM EST Guilherme Rock MD PATHOLOGY/CYTOLOGY Lisa NESBITT [facility] [place] [address] * UPPER GI ENDOSCOPY (09/30/2021 12:19 PM EST) UPPER GI ENDOSCOPY [facility] Endoscopy Procedure Date: 09/30/2021 12:19 PM ? Patient Name: Teri Smith ? Date of : 1980 ? Age: 41 ? Order #: [id number] ? Instrument Name: [id number] ? Procedure: ? Upper GI endoscopy Indications: [...] * COLONOSCOPY (09/30/2021 12:18 PM EST) COLONOSCOPY [facility] ___ Procedure Date: 09/30/2021 12:18 PM ? Patient Name: Teri Smith ? Date of : 1980 ? Age: 41 ? Order #: [id number] ? Instrument Name: [id number] ? ___ Procedure: ? Colonoscopy Indications: ? [...] preparation was evaluated using ? the BBPS (Upper [place] Eddy Bowel Preparation ? Scale) with scores of: [...] as of this encounter Care Teams Student Life Coordinator Relationship Specialty Start Date End Date Anuja Cai APRN [address] [place] [address] PCP - General Internal Medicine 07/25/21 documented as of this encounter
--- OUTSIDE RECORDS SUMMARY | 2024-07-15 01:36 | XMS_ITS | Encounter Summary ---
[place] [address] Care Team Providers Care Band Cutter Name Role Phone TrellAnuja APRN Primary Care Provider + [phone] Encounter Details Date Type Department Care Team (Late Contact Info) Description 11/28/2021 Telephone [place] [phone] Ranjana Auguste CMA GASTROENTEROLOGY DEPT Social History [...] 12:00 PM EDT Office [place] [address] Britt Zurita MD [facility] [place] [address] documented as of this encounter Visit Diagnoses Not on filedocumented in this encounter Care Teams Band Cutter Relationship Specialty Start Date End Date Anuja Cai APRN [address] [place] [address] PCP - General Internal Medicine 07/25/21 documented as of this encounter
--- OUTSIDE RECORDS SUMMARY | 2024-07-15 01:36 | XMS_ITS | Encounter Summary ---
Author Organization [facility] [place] [address] Care Team Providers Care Executive Director Global Brand Marketing Name Role Phone Anuja Cai APRN Primary Care Provider [phone] Encounter Details Date Type Department Care Team (Late st Contact Info) Description 12/24/2022 Ancillary [place] [phone] Anuja Cai APRN [address] [place] [address] Social History Tobacco Use Types Packs/Day Years [...] 12:00 PM EDT Office [place] [phone] Britt Zurita MD [facility] [address] [place], [place] [phone] documented as of this encounter Procedures Procedure Name Priority Date/Time Associated Diagnosis Comments FILM LIBRARY STORAGE ONLY MR KNEE Routine 12/24/2022 12:00 AM EST documented in this encounter Results * Film Library- Storage Only MR Knee (12/24/2022 12:00 AM EST) Narrative [facility] - 02/02/2023 10:14 PM EDT This exam is auto-finalizing. It's purpose is for storage only. Anuja Cai APRN Fanny FILM LIBRARY ORD ERABLES Performing Organization Address City/State/[facility] Co de Phone Number [place], [place] documented in this encounter Visit Diagnoses Not on filedocumented in this encounter Care Teams Executive Director Global Brand Marketing Relationship Specialty Start Date End Date Anuja Cai APRN [address] [place] [address] PCP - General Internal Medicine 07/25/21 documented as of this encounter
--- OUTSIDE RECORDS SUMMARY | 2024-07-15 01:36 | XMS_ITS | Encounter Summary ---
Author Organization [facility] [place] [address] Care Team Providers Care Sliver Lap Tender Name Role Phone Unavailable Primary Care Provider Unavailabl e Reason for Visit * Reason Comments Follow-up Encounter Details Date Type Department Care Team ([facility] st Contact Info) Description 04/27/2013 9:45 AM EDT Follow-Up Internal Medicine at [facility] [address] [place] [phone] Liya Richardson APRN [facility] [place] [address] Fatigue (Primary Dx); Night sweats Discharge Disposition: [...] 12:00 PM EDT Office Visit Rheumatology at [facility] [place] [phone] Britt Zurita MD [facility] [address] documented as of this encounter Procedures Procedure Name Priority Date/Time Associated Diagnosis Comments LYME IGG & IGM ANTIBODY Routine 04/27/2013 2:31 PM EDT Fatigue Night sweats CMP W/FASTING GLUCOSE Routine 04/27/2013 2:31 PM EDT Fatigue Night sweats DIFFERENTIAL, AUTOMATED Routine 04/27/2013 2:31 PM EDT HIV SCREEN, 4TH GENERATION ([facility]/CGP/APD/NLH) Routine 04/27/2013 2:31 PM EDT Fatigue Night [...] Gran Absolute 0.01 0.00 - 0.05 x10(3)/mcL [facility] Blood specimen (specimen) 04/27/2013 2:31 PM EDT 04/27/2013 2:38 PM EDT Anila Serna MD HEMATOLOGY ORDERABL ES Performing Organization Address [facility] de Phone Number [facility] * HIV (04/27/2013 2:31 PM EDT) HIV 1/2 Ab Negative [facility] Blood specimen (specimen) 04/27/2013 2:31 PM EDT 04/27/2013 2:38 PM EDT Narrative Resulting Agency Comment Spec In Lab Anila Serna MD CHEMISTRY ORDERABLE S Performing Organization Address [facility] de Phone Number [facility] * Lactate Dehydrogenase (04/27/2013 2:31 PM EDT) Lactate Dehydrogenase 130 110 - 220 unit/L [facility] Blood specimen (specimen) 04/27/2013 2:31 PM EDT 04/27/2013 2:38 PM EDT Narrative Resulting Agency Comment Spec In Lab Anila Serna MD CHEMISTRY ORDERABLE S Performing Organization Address [facility] de Phone Number [facility] * Lyme IgG & IgM Antibody (04/27/2013 2:31 PM EDT) Lyme Antibody Neg Neg [facility] Blood specimen (specimen) 04/27/2013 2:31 PM EDT 04/28/2013 7:47 AM EDT Narrative Resulting Agency Comment Spec In Lab Anila Serna MD IMMUNOLOGY ORDERABL ES Performing Organization Address [facility] de Phone Number [facility] * TSH (04/27/2013 2:31 PM EDT) Thyroid Stimulating Hormone 1.02 0.27 - 4.20 mcIU/mL [facility] Blood specimen (specimen) 04/27/2013 2:31 PM EDT 04/27/2013 2:38 PM EDT Narrative Resulting Agency Comment Spec In Lab Anila Serna MD CHEMISTRY ORDERABLE S Performing Organization Address [facility] Phone Number [facility] * CMP w/fasting Glucose (04/27/2013 2:31 PM EDT) Glucose Fasting 95 65 - 99 mg/dL [facility] Comment: ?Fasting* Glucose Interpretive Criteria Normal [...] of Diabetes Mellitus, Position Statement from the [place] [employer]. ??Diabetes Care, Volume 33, Supplement 1, Nov 2009 Blood Urea Nitrogen 10 8 - 18 mg/dL [facility] Creatinine 0.75 0.70 - 1.20 mg/dL [facility] Comment: Please note that the pediatric reference intervals supplied above were not validated at [facility]. Results from pediatric patients should be interpreted [...]
--- OUTSIDE RECORDS SUMMARY | 2024-07-15 01:36 | XMS_ITS | Encounter Summary ---
Author Organization [facility] [place] [address] Care Team Providers Care Audiology Technician Name Role Phone Anuja Cai APRN Primary Care Provider + [phone] Encounter Details Date Type Department Care Team (Latest Contact Info) Description 08/23/2021 9:05 AM EDT Laboratory Appointment Lab [address] [place] [address] Heartburn; Chest pain, unspecified type; [...] 12:00 PM EDT Office [place] [address] Britt Zurita MD [facility] [place] [address] documented as of this encounter Procedures Procedure [...] LABORATORY Neutrophil Absolute 4.91 1.70 - 6.10 x10(3)/[facility] LABORATORY Lymph % 21.7 % [facility] Lymphocytes Abs 1.6 0.9 - 3.2 x10(3)/[facility] LABORATORY Monocyte % 8.4 % [facility] Monocyte Abs 0.6 0.3 - 0.9 x10(3)/[facility] LABORATORY Eos % 1.5 % [facility] Eosinophils Abs 0.1 0.0 - 0.4 x10(3)/[facility] LABORATORY Basophil % 0.4 % [facility] Baso Absolute 0.0 0.0 - 0.1 x10(3)/[facility] LABORATORY Immature Gran % 0.40 % [facility] Comment: Immature granulocytes(IG's)percentage and absolute count will include metamyelocytes, myelocytes, and promyelocytes. Blood smears from CBCs yielding IG's will be scanned manually for concordance. If this scan disagrees with the automated IG or if promyelocytes are noted, a manual differential will be performed. Immature Gran Absolute 0.03 0.00 - 0.04 x10(3)/[facility]ORY Blood 08/23/2021 9:24 AM EDT 08/23/2021 9:33 AM EDT Narrative Resulting Agency Comment Spec In Lab Carla A Rebeca ENCINAS HEMATOLOGY ORDERABL ES [facility] [place] [address] * (ABNORMAL) Hemogram (08/23/2021 9:24 AM EDT) White Blood Cell 7.3 4.0 - 9.5 x10(3)/mc L [facility] Red Blood Cell 4.56 4.00 - 5.21 x10(6)/mc L [facility] Hemoglobin 12.7 11.7 - 15.5 g/dL [facility] Hematocrit 37.6 35.7 - 45.8 % [facility] Mean Cell Volume 82.5(L) 82.6 - 94.4 fL [facility] Mean Cell Hemoglobin 27.9 27.1 - 32.0 pg [facility] Mean Cell Hemoglobin Concentration 33.8 31.7 - 35.0 g/dL [facility] Platelet 359(H) 145 - 357 x10(3)/mc L [facility] RDW Standard Deviation 39.0 37.0 - 46.0 fL [facility] RDW coefficient of variation 13.0 11.5 - 14.1 % [facility] Mean Platelet Volume 10.1 7.6 - 12.9 fL [facility] NRBC% auto 0.0 % [facility] NRBC Absolute 0.000 0.000 - 0.000 x10(3)/mc L [facility] Blood 08/23/2021 9:24 AM EDT 08/23/2021 9:33 AM EDT Narrative Resulting Agency Comment Spec In Lab Carla Jose HUANG HEMATOLOGY ORDERABL ES [facility] [place] [address] * Basic Metabolic Panel (non-fasting) (08/23/2021 9:24 AM EDT) Glucose 108 65 - 199 mg/dL [facility] Comment:Diabetes: >=200 mg/d L plus symptoms Blood Urea Nitrogen 15 8 - 18 mg/dL [facility] Creatinine 1.09 0.70 - 1.20 mg/dL [facility] Sodium 140 135 - 145 mmol/L [facility] Potassium 3.6 3.5 - 5.0 mmol/L [facility] Comment: Please note: ??Patients with WBC >100,000 may have falsely elevated Potassium levels. ??For accurate Potassium quantification in these patients send serum separator tube (gold top) for subsequent determinations. ??Contact the Clinical Chemistry Laboratory if there are any questions. Chloride 101 98 - 107 mmol/L [facility] Carbon Dioxide 28 22 - 31 mmol/L [facility] Anion Gap 11 5 - 15 mmol/L [facility] Calcium 9.5 8.5 - 10.5 mg/dL [facility] Est Glomerular Filtration Rate 63 >=60 mL/min/1. 73 m?? [facility] Comment: This patient? s [...] Lab Carla Jose APRN CHEMISTRY ORDERABLE S [facility] [place] [address] documented in this encounter Visit Diagnoses Diagnosis [...] present documented in this encounter Care Teams Audiology Technician Relationship Specialty Start Date End Date Anuja Cai APRN [address] [facility] [place] [place] [address] PCP - General Internal Medicine 07/25/21 documented as of this encounter
--- OUTSIDE RECORDS SUMMARY | 2024-07-15 01:36 | XMS_ITS | Encounter Summary ---
Author Organization [facility] [place] [address] Care Team Providers Care Nursing Agency Manager Name Role Phone Unavailable Primary Care Provider Unavailabl e Reason for Visit * Reason Comments Colposcopy LSIL + HR HPV Encounter Details Date Type Department Care Team (Latest Contact Info) Description 05/20/2013 9:30 AM EDT Procedure visit Obstetrics [place] [phone] Tyler Billings MD [facility] OBSTETRICS & [place] [address] Abnormal pap (Primary Dx); Papanicolaou smear of [...] 12:00 PM EDT Office [place] [address] Britt Zurita MD [facility] [place] [address] Scheduled Orders Name Type Priority Associated Diagnoses [...] 3:35 PM EDT) Surgical Pathology Report ? [facility] ? Provider: ?? TYLER BILLINGS ?Pt. Name: ?? TERI HARO ? Acc #: ?[id number] ?Pt. ? Col Date: ?? 05/20/2013 ? [...] MD PATHOLOGY/CYTOLOGY O LAZ Performing Organization Address [facility] Co de Phone Number RUBEN BENNETT * Specimen to Pathology (NON-OR) (05/20/2013 3:35 PM EDT) AP Specimen 05/20/2013 3:35 PM EDT 05/20/2013 3:35 PM EDT Narrative [facility] - 05/20/2013 3:35 PM EDT Specimen requisition ordered. ??Separate Pathology report to follow Tyler Billings MD PATHOLOGY/CYTOLOGY O LAZ Performing Organization Address [facility] Co de Phone Number RUBEN BENNETT documented in this encounter Visit Diagnoses Diagnosis Abnormal pap- Primary Other nonspecific abnormal finding Papanicolaou smear of cervix with low grade squamous intraepithelial lesion (LGSIL) documented in this encounter
--- OUTSIDE RECORDS SUMMARY | 2024-07-15 01:36 | XMS_ITS | Encounter Summary ---
Author Organization [facility] [place] [address] Care Team Providers Care Linemarker Name Role Phone Anuja Cai APRN Primary Care Provider + [phone] Encounter Details Date Type Department Care Team ([facility] st Contact Info) Description 04/16/2023 8:00 AM EDT TH Visit (TeleHealth) [place] [phone] Britt Zurita MD [facility] [place] [address] Polyarthralgia Social History Tobacco Use Types Packs/Day [...] time: 30 minutes Britt Zurita MD Staff [place], [address] documented in this encounter Plan of Treatment Upcoming Encounters Date Type Department Care Team (Late st Contact Info) Description 08/17/2024 12:00 PM EDT Office [place] [address] Britt Zurita MD [facility] [place] [address] documented as of this encounter Visit Diagnoses Diagnosis Polyarthralgia Pain in joint, multiple sites documented in this encounter Care Teams Linemarker Relationship Specialty Start Date End Date Anuja Cai, HOPS FARMWORKER [address] [place] [address] PCP - General Internal Medicine 07/25/21 documented as of this encounter
--- OUTSIDE RECORDS SUMMARY | 2024-07-15 01:36 | XMS_ITS | Encounter Summary ---
Author Organization [facility] Address [facility] [place] [address] Care Team Providers Care Insurance Representative Name Role Phone Anuja Cai APRN Primary Care Provider [phone] Reason for Referral * Physical Therapy (Routine) [...] unspecified whether esophagitis present Carla Jose APRN [facility] [place] [address] Robin Velásquez, PT [address] [facility] [address] [place] [address] Referral ID Status Reason Start Date Expiration Date V isits Requested Visits Authorized [id number] Closed Evaluate and Treat 08/19/2021 02/15/2022 12 12 * Diagnostic Test (Routine) - Closed Specialty Diagnoses / Procedures Referred By Ehsan patel Referred To Contact Gastroenterology Diagnoses Heartburn EGD/Waters ON PPI - heartburn Procedures Waters Capsule pH Test EGD/Waters ON PPI - heartburn Carla Jose APRN [facility] [place] [address] [facility] [place] [address] Referral ID Status Reason Start Date Expiration Date V isits Requested Visits Authorized [id number] Closed Consult, Test & Treat 08/19/2021 08/19/2022 1 1 Reason for Visit * Consultation (Routine) - Closed Specialty Diagnoses / Procedures Referred By Contac t Referred To Contact Gastroenterology Diagnoses Generalized abdominal pain Irritable bowel syndrome without diarrhea Gastro-esophageal reflux disease without esophagitis Other fecal abnormalities 08/19-abd pain/IBS/gerd Anuja Cai APRN [address] [place] [address] [facility] [place] [address] Referral ID Status Reason Start Date Expiration Date V isits Requested Visits Authorized [id number] Closed Consult, Test & Treat [facility] PCP Updated and/or Approved 07/18/2021 07/18/2022 6 6 Encounter Details Date Type Department Care Team (Latest Contact Info) Description 08/19/2021 11:00 AM EDT TH Visit (TeleHealth) [place] [phone] Carla Jose APRN [facility] [place] [address] Diarrhea, unspecified type (Primary Dx); Heartburn; Chest [...] ??? C. Difficile Screen ??? Giardia/Cryptosporidium Antigens ([facility]/CGP/APD/NLH) ??? CBC (with Diff) ??? Basic Metabolic Panel (non-fasting) ??? Calprotectin, Stool ??? Elastase, Stool ??? Referral to Physical Therapy ??? Waters Capsule pH Test ??? High Resolution Esophageal Manometry Please call the GI department to schedule the investigations if you do not hear from us within 1-2 weeks: [phone]. Please go to or any [facility] affiliated lab to get any blood [...] Department of Gastroenterology and Hepatology [facility] Here is some information on [...] disease, or Ulcerative colitis. Also if the satellite tv installer sees any polyps, they will be removed [...] Handout for Patients and Primary Care Providers Vsihnu Archer MD, [facility] + Qasim Yang MD, GERARDO Bigg Esqueda APRN + Teri Gonzalez APRN + Carla Jose APRN [facility] What are functional [...] what is the impact? 15-20% of general [place] population has IBS or FD or both ??? 2nd most common cause for lost work days (after common cold) in [place] ??? Estimated $30 billion dollar cost to [place] economy per year ??? These disorders can [...] patients withimmediate onset of symptoms after infection); long term acute care registered nurse symptoms are expected in most patients however [...] to you primary care provider and/or local satellite tv installer and share this document. Treatment of functional [...] this approach benefits most patients ??? OTC (lvcy-riu-ictvngh) medications can be used for ongoing bothersome symptoms as listed below ??? Your provider (PCP or local Gastroenterology provider or [facility] Gastroenterology provider) may decide to [...] All-Bran psyllium buds, Metamucil, Konsyl, bulk psyllium ([employer] ([place]) stores and bulk stores) ??? Specifically we [...] convincing medical evidence is still lacking ??? Jzph-fxv-hicusxo supplements including probiotics are not typically evaluated [...] to decrease antibiotic-associated diarrhea and antibiotic-related infections Yfco-cus-Egagymw Medications for Functional Gut Disorders Based on [...] a stool softener that is safe for longterm usage (no risk of dependency)and the dosage [...] ??? Often a combination of anti-nausea medications (orec-cbb-bibtnmz or prescription) works better than high doses [...] for misuse/misinterpretation of this information Patient Resources [place] [employer] https://www.gastro.org/practice-guidance/tc-sjrrlyg-relbxf/ topic/sgzxmxhcn-qcgnu-uffqkioh-ibs Badgut.org https://badgut.org/information-centre/j-s-mckmilkmj-topics/ibs/ AboutIBS.org https://www.aboutibs.org/ Uptodate.com https://www.uptodate.com/contents/ozmzgolza-kmweo-ybtzplif-cemnne-cuw-ajqfjr documented in this encounter Progress Notes * [...] movement, other days 5+ BM Usually 1-2/day Will: 5 and 6 Steatorrhea Frequent/random nocturnal stooling [...] Disordered Eating: Binge eating disorder 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 ??? fluticasone propionate (Flonase) 50 mcg/actuation [place], Suspension SPRAY ONE SPRAY IN EACH NOSTRIL [...] has a past surgical history that includes Roy tooth extraction; Roy tooth extraction; and Uterine fibroid surgery. Family [...] is complete The patient was located in [place] at the time of their visit. TIME SPENT WITH PATIENT Time spent reviewing records prior to this encounter on day of appointment: 10 minutes Time spent during encounter with patient including counselin minutes Time spent documenting encounter after office visit: 15 minutes Carla Jose APRN [facility] [place] [address] documented in this encounter Plan of Treatment Upcoming Encounters Date Type Department Care Team (Late st Contact Info) Description 08/17/2024 12:00 PM EDT Office Visit Rheumatology [place] [address] Britt Zurita MD [facility] [place] [address] Scheduled Orders Name Type Priority Associated Diagnoses [...] EDT) Glucose 108 65 - 199 mg/dL [facility] Comment:Diabetes: >=200 mg/d L plus symptoms Blood Urea Nitrogen 15 8 - 18 mg/dL [facility] Creatinine 1.09 0.70 - 1.20 mg/dL [facility] Sodium 140 135 - 145 mmol/L [facility] Potassium 3.6 3.5 - 5.0 mmol/L [facility] Comment: Please note: ??Patients with WBC >100,000 may have falsely elevated Potassium levels. ??For accurate Potassium quantification in these patients send serum separator tube (gold top) for subsequent determinations. ??Contact the Clinical Chemistry Laboratory if there are any questions. Chloride 101 98 - 107 mmol/L [facility] Carbon Dioxide 28 22 - 31 mmol/L [facility] Anion Gap 11 5 - 15 mmol/L [facility] Calcium 9.5 8.5 - 10.5 mg/dL [facility] Est Glomerular Filtration Rate 63 >=60 mL/min/1. 73 m?? [facility] Comment: This patient? s estimated [...] Lab Carla Jose APRN CHEMISTRY ORDERABLE S [facility] [place] [address] documented in this encounter Visit Diagnoses Diagnosis [...] present documented in this encounter Care Teams Insurance Representative Relationship Specialty Start Date End Date Anuja Cai APRN [address] [place] [address] PCP - General Internal Medicine 07/25/21 documented as of this encounter
--- OUTSIDE RECORDS SUMMARY | 2024-07-15 01:36 | XMS_ITS | Encounter Summary ---
[place] [address] Care Team Providers Care Software Tools Engineer Name Role Phone TrellAnuja APRN Primary Care Provider [phone] Reason for Visit * Reason Onset Date Comments Reminder Appointment 08/19/2021 Encounter Details Date Type Department Care Team (Late Contact Info) Description 08/19/2021 [place]phone [place] [address] Marylu Betancur CCMA Reminder Appointment [...] EDT [place] [address] Britt Zurita MD [facility] [place] [address] documented as of this encounter Visit Diagnoses Not on filedocumented in this encounter Care Teams Software Tools Engineer Relationship Specialty Start Date End Date Anuja Cai APRN [address] [facility] [place] [address] PCP - General Internal Medicine 07/25/21 documented as of this encounter
--- OUTSIDE RECORDS SUMMARY | 2024-07-15 01:36 | XMS_ITS | Encounter Summary ---
Author Organization [facility] [place] [address] Care Team Providers Care Liquid Floor And Wall Applier Name Role Phone Anuja Cai APRN Primary Care Provider [phone] Encounter Details Date Type Department Care Team (Late st Contact Info) Description 05/28/2022 Ancillary Procedure [place] [phone] Anuja Cai APRN [address] [place] [address] Social History Tobacco Use Types Packs/Day Years [...] 12:00 PM EDT Office [place] [phone] Britt Zurita MD [facility] [address] [place], [place] [id number] documented as of this encounter Procedures Procedure Name Priority Date/Time Associated Diagnosis Comments FILM LIBRARY STORAGE ONLY DX HIP Routine 05/28/2022 12:00 AM EDT documented in this encounter Results * Film Library- Storage Only DX Hip (05/28/2022 12:00 AM EDT) Narrative [facility] - 02/02/2023 10:22 PM EDT This exam is auto-finalizing. It's purpose is for storage only. Anuja Cai APRN Fanny FILM LIBRARY ORD ERABLES Performing Organization Address City/State/[facility] Co de Phone Number [place], [place] documented in this encounter Visit Diagnoses Not on filedocumented in this encounter Care Teams Liquid Floor And Wall Applier Relationship Specialty Start Date End Date Anuja Cai APRN [address] [place] [address] PCP - General Internal Medicine 07/25/21 documented as of this encounter
--- OUTSIDE RECORDS SUMMARY | 2024-07-15 01:36 | XMS_ITS | Encounter Summary ---
Author Organization [facility] Address [facility] [place] [address] Care Team Providers Care Accounts Receivable Accountant Name Role Phone Unavailable Primary Care Provider Unavailabl e Reason for Visit * Reason Onset Date Comments Labs Only 08/11/2013 Encounter Details Date Type Department Care Team (Late st Contact Info) Description 08/11/2013 Telephone Family Medicine at [facility] [address] [place] [address] Liya Silva APRN [facility] [place] [address] Labs Only Social History Tobacco Use Types [...] EDT Office [place] [address] Britt Zurita MD [facility] [place] [address] documented as of this encounter Visit Diagnoses Not on filedocumented in this encounter
--- OUTSIDE RECORDS SUMMARY | 2024-07-15 01:36 | XMS_ITS | Encounter Summary ---
Author Organization [facility] [place] [address] Care Team Providers Care Hardware Press Operator Name Role Phone Anuja Cai APRN Primary Care Provider + [phone] Reason for Referral * Physical Therapy (Routine) - Authorized Specialty Diagnoses / Procedures Referred By Ehsan patel Referred To Contact Physical Therapy Diagnoses Right knee pain, unspecified chronicity Kp Erazo MD [facility] [place] [address] Physical Therapy, [address] [address] Referral ID Status Reason Start Date Expiration Date Visits Requested Visits Authorized [id number] Authorized Evaluate and Treat 01/26/2024 07/24/2024 12 [...] OSTEOCHONDRAL LESION LATERAL FEMORAL CONDYLE Tabatha Carmen, SPECIAL DUTY NURSE [address] [place] [address] [facility] [address] [place] [phone] Referral ID Status Reason Start Date Expiration Date V isits Requested Visits Authorized [id number] Closed Consult, Test & Treat PCP Updated and/or Approved 02/03/2023 02/03/2024 6 6 Encounter Details Date Type Department Care Team (Late st Contact Info) Description 01/26/2024 1:00 PM EDT Office [place] [address] Kp Erazo MD [facility] [place] [address] Right knee pain, unspecified chronicity (Primary Dx) [...] me at the request of Tabatha Carmen, SPECIAL DUTY NURSE [address] [place] [address] for the above chief complaint. HPI: Teri [...] DIAGNOSTIC performed by Guilherme Rock MD at [facility] END[facility] PRO UPPER GI ENDOSCOPY, BIOPSY N/A 09/30/2021 EGD WITH BIOPSY (WRVU 2.49) performed by Guilherme Rock MD at [facility] UTERINE FIBROID SURGERY WISDOM TOOTH [...] Hearn MD Orthopaedic Surgery - PGY3 Pager: [phone] documented in this encounter Plan of Treatment Upcoming Encounters Date Type Department Care Team (Late st Contact Info) Description 08/17/2024 12:00 PM EDT Office [place] [address] Britt Zurita MD [facility] [place] [place] [address] Scheduled Referrals Name Type Priority Associated Diagnoses Orde r Schedule Referral to Physical Therapy Outpatient Referral Routine Right knee pain, unspecified chronicity Ordered: 01/26/2024 documented as of this encounter Visit Diagnoses Diagnosis Right knee pain, unspecified chronicity- Primary documented in this encounter Care Teams Hardware Press Operator Relationship Specialty Start Date End Date Aunja Cai APRN [address] [place] [address] PCP - General Internal Medicine 07/25/21 documented as of this encounter
--- OUTSIDE RECORDS SUMMARY | 2024-07-15 01:36 | XMS_ITS | Encounter Summary ---
Author Organization [facility] [place] [address] Care Team Providers Care Terrazzo Helper Name Role Phone Unavailable Primary Care Provider Unavailabl e Reason for Visit * Reason Comments Other Encounter Details Date Type Department Care Team (Late st Contact Info) Description 04/25/2013 Telephone Internal Medicine at [facility] [address] [place] [address] Massiel Bonilla, INDUSTRIAL TECH INSTRUCTOR Social History Tobacco Use Types Packs/Day Years [...] ----- Message ----- From: [place], Lab In [facility] Sent: 04/21/2013 4:15 PM To: Liya Richardson APRN documented in this encounter Plan of Treatment Upcoming Encounters Date Type Department Care Team (Late st Contact Info) Description 08/17/2024 12:00 PM EDT Office [place] [address] Britt Zurita MD [facility] [place] [address] documented as of this encounter Visit Diagnoses Not on filedocumented in this encounter
--- OUTSIDE RECORDS SUMMARY | 2024-07-15 01:36 | XMS_ITS | Encounter Summary ---
Author Organization [facility] [place] [address] Care Team Providers Care Chief Privacy Officer Name Role Phone Anuja Cai APRN Primary Care Provider + [phone] Reason for Visit * Consultation (Routine) - Closed Specialty Diagnoses / Procedures Referred By Ehsan patel Referred To Contact Rheumatology Diagnoses Arthralgia, unspecified joint Other chronic pain Other fatigue Other specified abnormal immunological findings in serum Anuja Cai APRN [address] [place] [address] [facility] [address] [place] [address] Referral ID Status Reason Start Date Expiration Date V isits Requested Visits Authorized [id number] Closed Consult, Test & Treat PCP Updated and/or Approved 02/17/2023 02/17/2024 6 6 Encounter Details Date Type Department Care Team (Late st Contact Info) Description 04/02/2023 10:00 AM EDT Office [place] [address] Britt Zurita MD [facility] [place] [address] Polyarthralgia Social History Tobacco Use [...] and she went to a hospital in [place], [place] and she was diagnosed with 'bursitis'. [...] DIAGNOSTIC performed by Guilherme Rock MD at [facility] ENDOSCOPY ??? PRO UPPER GI ENDOSCOPY, BIOPSY N/A 09/30/2021 EGD WITH BIOPSY (WRVU 2.49) performed by Guilherme Rock MD at [facility] ENDOSCOPY ??? UTERINE FIBROID SURGERY ??? [...] was 60 minutes. Britt Zurita MD [employer] [place], [address] CC: Anuja Cai APRN documented in this encounter Plan of Treatment Upcoming Encounters Date Type Department Care Team (Late st Contact Info) Description 08/17/2024 12:00 PM EDT Office [place] [address] Britt Zurita MD [facility] [place] [address] documented as of this encounter Procedures Procedure [...] RefValue ------- Porphyrins, QN, Random, U ??Uroporphyrin, [place] ?3 ? nmol/L ?? <=30 ??Heptacarboxylpor phyrins [...] developed and its performance characteristics ?determined by [facility] in a manner consistent with CLIA ?requirements. This test has not been cleared or approved by ?the U.S. Food and Drug Administration. ?Test Performed by: ?[facility] ?[address] [id number] ?Gas Desulfurizer: Vimal Torrez M.D. Ph.D.; CLIA# [id number] [facility] Urine 04/02/2023 11:0 5 AM EDT 04/02/2023 4:37 PM EDT Narrative Resulting Agency Comment Spec In Lab Britt Zurita MD LAB SEND OUT ORDERA BLES Performing Organization Address [facility] Co de Phone Number [facility] [place] [address] * Protein/Creatinine Ratio, urine (04/02/2023 11:05 AM EDT) Creatinine, Urine 166 mg/dL [facility] Protein, Urine <6 0 - 12 mg/dL [facility] Protein / Creatinine Ratio, Urine <0.1 ratio [facility] Urine 04/02/2023 11:0 5 AM EDT 04/02/2023 11:18 AM EDT Narrative Resulting Agency Comment Spec In Lab Britt Zurita MD URINE ORDERABLES Performing Organization Address [facility] Co de Phone Number [facility] [place] [address] * (ABNORMAL) Urinalysis with reflex Culture (04/02/2023 11:05 AM EDT) Glucose, Urine Dipstick Negative Negative mg/dL [facility] Protein, Urine Dipstick Negative Negative mg/dL [facility] Bilirubin, Urine Dipstick Negative Negative mg/dL [facility] Comment: Clinical correlation required for positive Urine Bilirubin results as false positive may occur with some drugs and drug related products. If a false positive is suspected a serum total bilirubin should be considered if clinically indicated. Urobilinogen, Urine Dipstick Normal Normal mg/dL [facility] pH, Urn (dipstick) 5.5 5.0 - 8.0 [facility] Blood, Urine Dipstick Negative Negative mg/dL [facility] Ketone, Urine Dipstick Trace(A) Negative mg/dL [facility] Nitrite, Urine Dipstick Negative Negative [facility] Leukocytes, Urine Dipstick Negative Negative mcL [facility] Appearance, Urine Dipstick Clear Clear [facility] Specific Ronan Urine Automated 1.020 1.005 - 1.030 [facility] Color, Urine Dipstick Yellow Yellow [facility] Reflex to Culture No [facility] Urine NS 04/02/2023 11:0 5 AM EDT 04/02/2023 11:17 AM EDT Narrative Resulting Agency Comment Spec In Lab Britt Zurita MD URINE ORDERABLES Performing Organization Address [facility] [place] [address] * (ABNORMAL) Silica Clotting Time (04/02/2023 11:00 AM EDT) Silica Clotting Time 1.37(H) <=1.19 ratio [facility] Comment: A result greater than [...] ORDERABL ES Performing Organization Address [facility] Co de Phone Number [facility] [place] [address] * dRVVT (04/02/2023 11:00 AM EDT) dRVVT 0.99 <=1.19 IU/mL [facility] Comment: A result greater than [...] ORDERABL ES Performing Organization Address [facility] Co de Phone Number [facility] [place] [address] * Lyme IgG & IgM Antibody (04/02/2023 11:00 AM EDT) [facility] Lyme Antibody Negative Negative [facility] Lyme Ab Comment Negative result does not exclude possibility of infection. [facility] Comment: Please note that as of 03/10/2023 that this testing is performed by the [facility] at [facility]. This change in testing location is associated with a change in testing methodology. Blood 04/02/2023 11:0 0 AM EDT 04/02/2023 12:52 PM EDT Narrative Resulting Agency Comment Spec In Lab Britt Zurita MD IMMUNOLOGY ORDERABL ES Performing Organization Address [facility] Co de Phone Number [facility] [place] [address] * (ABNORMAL) Angiotensin Converting Enzyme (04/02/2023 11:00 AM EDT) Pathologist [facility] ([facility]ARCH) 14(L) 16 - 85 unit/L [facility] Comment: Test Performed by: [address] [address] Gas Desulfurizer: Vimal Torrez M.D. Ph.D.; CLIA# [id number] Blood 04/02/2023 11:0 0 AM EDT 04/02/2023 3:35 PM EDT Narrative Resulting Agency Comment Spec In Lab Britt Zurita MD LAB SEND OUT ORDERA BLES Performing Organization Address [facility]/ZIP Co de Phone Number [facility] [place] [address] * (ABNORMAL) Rheumatoid factor, quant (04/02/2023 11:00 AM EDT) Rheumatoid Factor 17(H) <=14 IU/mL [facility] Blood 04/02/2023 11:0 0 AM EDT 04/02/2023 11:06 AM EDT Narrative Resulting Agency Comment Spec In Lab Britt Zurita MD CHEMISTRY ORDERABLE S Performing Organization Address [facility] Co de Phone Number [facility] [place] [address] * Beta-2 glycoprotein antibodies (04/02/2023 11:00 AM EDT) Beta 2 Glycoprotein, IgG <0.8 <=6.9 unit/mL [facility] Beta 2 Glycoprotein, IgM <2.4 <=6.9 unit/mL [facility] Blood 04/02/2023 11:0 0 AM EDT 04/02/2023 12:52 PM EDT Narrative Resulting Agency Comment Spec In Lab Britt Zurita MD IMMUNOLOGY ORDERABL ES Performing Organization Address [facility] Co de Phone Number [facility] [place] [address] * Cardiolipin Antibody Screen (04/02/2023 11:00 AM EDT) Cardiolipin Antibody IgG <0.5 <=9.9 GPL-U/mL [facility] Cardiolipin Antibody IgM 2.0 <=9.9 MPL-U/mL [facility] Blood 04/02/2023 11:0 0 AM EDT 04/02/2023 12:52 PM EDT Narrative Resulting Agency Comment Spec In Lab Britt Zurita MD IMMUNOLOGY ORDERABL ES Performing Organization Address [facility] Co de Phone Number [facility] [place] [address] * (ABNORMAL) CRP, acute inflammation (04/02/2023 11:00 AM EDT) C-Reactive Protein 9.9(H) <=4.9 mg/L [facility] Blood 04/02/2023 11:0 0 AM EDT 04/02/2023 11:06 AM EDT Narrative Resulting Agency Comment Spec In Lab Britt Zurita MD CHEMISTRY ORDERABLE S Performing Organization Address [facility] Co de Phone Number [facility] [place] [address] * Sedimentation rate (04/02/2023 11:00 AM EDT) Sedimentation Rate Automated 32 2 - 37 mm/hr [facility] Comment: Effective October 12, 2019 new capillary photometric technology has resulted in a change in reference ranges. It is recommended that each ESR result be reviewed with its own age appropriate reference range. Blood 04/02/2023 11:0 0 AM EDT 04/02/2023 11:06 AM EDT Narrative Resulting Agency Comment Spec In Lab Britt Zurita MD HEMATOLOGY ORDERABL ES Performing Organization Address [facility] Co de Phone Number [facility] [place] [address] * (ABNORMAL) C4 Complement (04/02/2023 11:00 AM EDT) Complement C4 45(H) 10 - 40 mg/dL [facility] Blood 04/02/2023 11:0 0 AM EDT 04/02/2023 11:06 AM EDT Narrative Resulting Agency Comment Spec In Lab Britt Zurita MD CHEMISTRY ORDERABLE S Performing Organization Address [facility] Co de Phone Number [facility] [place] [address] * C3 Complement (04/02/2023 11:00 AM EDT) Complement C3 168 90 - 180 mg/dL [facility] Blood 04/02/2023 11:0 0 AM EDT 04/02/2023 11:06 AM EDT Narrative Resulting Agency Comment Spec In Lab Britt Zurita MD CHEMISTRY ORDERABLE S [facility] [place] [address] * Comprehensive metabolic panel (non-fasting) (04/02/2023 11:00 AM EDT) Glucose 95 65 - 199 mg/dL [facility] Comment:Diabetes: >=200 mg/d L plus symptoms Blood Urea Nitrogen 12 8 - 18 mg/dL [facility] Creatinine 0.93 0.70 - 1.20 mg/dL [facility] Sodium 138 135 - 145 mmol/L [facility] Potassium 3.8 3.5 - 5.0 mmol/L [facility] Comment: Please note: ??Patients with WBC >100,000 may have falsely elevated Potassium levels. ??For accurate Potassium quantification in these patients send serum separator tube (gold top) for subsequent determinations. ??Contact the Clinical Chemistry Laboratory if there are any questions. Chloride 101 98 - 107 mmol/L [facility] Carbon Dioxide 27 22 - 31 mmol/L [facility] Anion Gap 10 5 - 15 mmol/L [facility] Calcium 9.6 8.5 - 10.5 mg/dL [facility] Protein, Total 7.5 6.1 - 8.0 g/dL [facility] Albumin 4.7 3.2 - 5.2 g/dL [facility] Aspartate Aminotransferase 19 0 - 30 unit/L [facility] Alanine Aminotransferase 16 0 - 30 unit/L [facility] Alkaline Phosphatase 57 35 - 105 unit/L [facility] Bilirubin, Total 0.4 0.2 - 1.3 mg/dL [facility] Est Glomerular Filtration Rate 79 >=60 mL/min/1. 73 m?? [facility] Comment: This patient's estimated GFR [...] MD CHEMISTRY ORDERABLE S Performing Organization Address City/State/[facility] Co de Phone Number [facility] [place] [address] * (ABNORMAL) LIZZIE Ab by IFA (04/02/2023 11:00 AM EDT) LIZZIE Ab Screen Test ?Result ? Flag ??Unit ??RefValue Antinuclear Ab, HEp-2 Substrate, ?Positive 1:320 ??@ ?<1:80 (Negative) ??S ? ADDITIONAL INFORMATION --------- ?Method: Immunofluorescence using HEp-2 cellular substrate. ??LIZZIE Titer: ?1:320 ??LIZZIE Pattern: ?Dense Fine Speckled ?Test Performed by: ?[facility] ?[address] [place] [address] ?Gas Desulfurizer: Vimal Torrez M.D. Ph.D.; CLIA# [id number] ([id number]) [facility] Blood 04/02/2023 11:0 0 AM EDT 04/02/2023 3:35 PM EDT Narrative Resulting Agency Comment Spec In Lab Britt Zurita MD CHEMISTRY ORDERABLE S [facility] [address] [place] [address] * Extractable Nuclear Antigen (ROMARIO) Ab (04/02/2023 11:00 AM EDT) SS-A/Ro Ab <0.40 <=10.00 unit/mL [facility] Comment: <7 negative 7-10 equivocal >10 positive The SS-A antibody result was generated using fluoroenzyme immunoassay on the Phadia 250 analyzer. the semi-quantitative test is designed to detect IgG antibodies in human serum that are reactive to the SS-A (Ro) protein. Please note that as of 08/26/2022 that this testing is performed by the [facility] at [facility]. This change in testing location is associated with a change in testing method and reference intervals. Please review the results of this test in association with the posted reference intervals. SS-B/La Ab <0.40 <=10.00 unit/mL [facility] Comment: <7 negative 7-10 equivocal >10 positive The SS-B antibody result was generated using fluoroenzyme immunoassay on the Phadia 250 analyzer. the semi-quantitative test is designed to detect IgG antibodies in human serum that are reactive to the SS-B (La) protein. Please note that as of 08/26/2022 that this testing is performed by the [facility] at [facility]. This change in testing location is associated with a change in testing method and reference intervals. Please review the results of this test in association with the posted reference intervals. Scl-70 Ab <0.60 <=10.00 unit/mL [facility] Comment: <7 negative 7-10 equivocal >10 positive The Scl-70 antibody result was generated using fluoroenzyme immunoassay on the Phadia 250 analyzer. the semi-quantitative test is designed to detect IgG antibodies in human serum that are reactive to the Scl-70 protein. Please note that as of 08/26/2022 that this testing is performed by the [facility] at [facility]. This change in testing location is associated with a change in testing method and reference intervals. Please review the results of this test in association with the posted reference intervals. Sm (Bowen) Ab 0.90 <=10.00 unit/mL [facility] Comment: <7 negative 7-10 equivocal >10 positive The Sm antibody result was generated using fluoroenzyme immunoassay on the Phadia 250 analyzer. the semi-quantitative test is designed to detect IgG antibodies in human serum that are reactive to the Sm protein. Please note that as of 08/26/2022 that this testing is performed by the [facility] at [facility]. This change in testing location is associated with a change in testing method and reference intervals. Please review the results of this test in association with the posted reference intervals. U1RNP Ab <0.50 <=10.00 unit/mL [facility] Comment: <5 negative 5-10 equivocal >10 positive The U1RNP antibody result was generated using fluoroenzyme immunoassay on the Phadia 250 analyzer. the semi-quantitative test is designed to detect IgG antibodies in human serum that are reactive to the U1RNP protein. Please note that as of 08/26/2022 that this testing is performed by the [facility] at [facility]. This change in testing location is associated with a change in testing method and reference intervals. Please review the results of this test in association with the posted reference intervals. Centromere Ab <0.40 <=10.00 unit/mL [facility] Comment: <7 negative 7-10 equivocal >10 positive The CENP antibody result was generated using fluoroenzyme immunoassay on the Phadia 250 analyzer. the semi-quantitative test is designed to detect IgG antibodies in human serum that are reactive to the Centromere B protein. Please note that as of 08/26/2022 that this testing is performed by the [facility] at [facility]. This change in testing location is associated with a change in testing method and reference intervals. Please review the results of this test in association with the posted reference intervals. Mandi-1 Ab <0.30 <=10.00 unit/mL [facility] Comment: <7 negative 7-10 equivocal >10 positive The Mandi-1 antibody result was generated using fluoroenzyme immunoassay on the Phadia 250 analyzer. the semi-quantitative test is designed to detect IgG antibodies in human serum that are reactive to the Mandi-1 protein. Please note that as of 08/26/2022 that this testing is performed by the [facility] at [facility]. This change in testing location is associated with a change in testing method and reference intervals. Please review the results of this test in association with the posted reference intervals. Blood 04/02/2023 11:0 0 AM EDT 04/02/2023 12:52 PM EDT Narrative Resulting Agency Comment Spec In Lab Britt Zurita MD LAB SEND OUT [place] [facility] [place] [address] * DNA Antibody (Double-Stranded) (04/02/2023 11:00 AM EDT) dsDNA Ab <0.6 <=15.0 IU/mL [facility] Comment: <10 negative 10-15 equivocal [...] performed by the [facility] at [facility]. This change in testing location is associated with a change is testing method and reference intervals. Please review the results of this test in association with the posted reference intervals. Blood 04/02/2023 11:0 0 AM EDT 04/02/2023 12:52 PM EDT Narrative Resulting Agency Comment Spec In Lab Britt Zurita MD LAB SEND OUT [place] [facility] [place] [address] documented in this encounter Visit Diagnoses Diagnosis Polyarthralgia Pain in joint, multiple sites documented in this encounter Care Teams Chief Privacy Officer Relationship Specialty Start Date End Date Anuja Cai APRN [address] [place] [address] PCP - General Internal Medicine 07/25/21 documented as of this encounter
--- OUTSIDE RECORDS SUMMARY | 2024-07-15 01:36 | XMS_ITS | Encounter Summary ---
Author Organization Formerly [facility] [place] [address] Care Team Providers Care Color Worker Name Role Phone Unavailable Primary Care Provider Unavailabl e Reason for Visit * Reason Comments Follow-up Encounter Details Date Type Department Care Team ([facility] st Contact Info) Description 04/14/2013 11:25 AM EDT Follow-Up Internal Medicine at [facility] [address] [place] [address] Liya Richardson APRN [facility] [place] [address] Pap smear for cervical cancer screening (Primary [...] EDT Office [place] [address] Britt Zurita MD [facility] [place] [address] documented as of this encounter Procedures Procedure Name Priority Date/Time Associated Diagnosis Comments RV TECHNICIAN MOLECULAR GENETICS REPORT Routine 04/14/2013 3:59 PM EDT RV TECHNICIAN CYTOLOGY FINAL REPORT Routine 04/14/2013 3:59 PM EDT CYTOPATHOLOGY GYNECOLOGICAL Routine 04/14/2013 12:25 PM EDT Health care maintenance documented in this encounter Results * Mechanical Maintenance Foreman Cytology Final Report (04/14/2013 3:59 PM EDT) Mechanical Maintenance Foreman Cytology Final Report ? [facility] ? Provider: ?? LIYA RICHARDSON Pt. Name: ?? TERI HARO ? Acc #: ?[id number] ?Pt. ? Col Date: ?? 04/14/2013 ? /Sex: ?1980,(33 years),Female ? Rec Date: ?? 04/14/2013 ? LOC: ?HPN ? CYTOPATHOLOGY: ??RV TECHNICIAN ? ---Adequacy--- ? Specimen submitted is satisfactory [...] ? These guidelines were published in the [place] Journal of Obstetrics and ? Gynecology (2007;197(4):346-3 55). ? 04/21/13 ?? Screened by: ??SLA ??NEW MEDIA STRATEGIST ? 04/22/13 ?? Verified by: ??BELKYS OCONNELL MD - Pathologist ? ---Comment--- ? Please also see concurrent HPV test result. ? ---Clinical Information--- ? HPV Option: ? Concurrent HPV ? Preparation: ?Liquid Based Pap ? Specimen Source: ?Vag/Cerv/Endo/LB P/Diagnostic ? LMP: ?/12/15 ? Hormones?: ?No ? Hysterectomy?: ?No ?: ?No ?: ?No ? I.U.D.?: ?No ? Pelvic Radiation: ? No ? Prior RV TECHNICIAN Therapy?: ? Other (comment) ? Hist Abnl Pap/Biopsy?: ??Yes, history of previous abnormal Pap ? Hist of HPV Vaccine?: ?? No ? Hist of Smoking?: ? Yes ? [facility] ? Provider: ?? LIYA RICHARDSON Pt. Name: ?? TERI HARO ? Acc #: ?[id number] ?Pt. ? Col Date: ?? 04/14/2013 ? /Sex: ?1980,(33 years),Female ? Rec Date: ?? 04/14/2013 ? LOC: ?HPN ? CYTOPATHOLOGY: ??RV TECHNICIAN ? Hist of MAR exposure?: ??No ? Clinical Data, Significant Therapy and Clinical Impression: ? This Pap Test has been evaluated with the assistance of the ThinPrep Pap ? Test Imaging System. ? Note: ? The Pap test is a screening test for cervical cancer with an inherent ? false-negative rate dependent upon several variables. ??For further ? information please contact the [facility]. ? Reference: ??Julianne CS. ??Precision Instrument Maker And Repairer of Pap Smear Results. ??In: ? Suri BS, Silvestre HH, ed. ??The Pap Smear. ??[place]: ??Willian, 2002: ? 71-77. [facility] 04/14/2013 3:59 PM EDT Liya Richardson NURSE PLASTICS PATHOLOGY/CYTOLO GY ORDERABLES Performing Organization Address City/State/[facility] Co de Phone Number [facility] * RV TECHNICIAN Molecular Genetics Report (04/14/2013 3:59 PM EDT) RV TECHNICIAN Molecular Genetics Report ? [facility] [place] [place] ? Provider: ?? LIYA RICHARDSON Pt. Name: ?? TERI HARO ? Acc #: ?[id number] ?Pt. ? Col Date: ?? 04/14/2013 ? [...] Based Prep ? Reviewed by: ??Willian Marroquin [facility] ? A ?VCELD Vag/Cerv/Endo/L BP/Diagnostic [...] to follow Anila Serna MD PATHOLOGY/CYTOLOGY ORDERABLES [facility] documented in this encounter Visit Diagnoses Diagnosis Pap smear for cervical cancer screening- Primary Screening for malignant neoplasm of the cervix Health care maintenance Unspecified general medical examination documented in this encounter
--- OUTSIDE RECORDS SUMMARY | 2024-07-15 01:36 | XMS_ITS | Encounter Summary ---
Author Organization Formerly [facility] Address [facility] William [facility] [place] [address] Care Team Providers Care Auto Winder Name Role Phone Unavailable Primary Care Provider Unavailabl e Encounter Details Date Type Department Care Team (Late st Contact Info) Description 04/26/2013 Telephone Family Medicine at [facility] [address] [place] [address] Liya Silva APRN [facility] GENER[facility] [place] [address] Social History Tobacco Use Types Packs/Day Years [...] 12:00 PM EDT Office [place] [address] Britt Zurita MD [facility] [place] [address] documented as of this encounter Visit Diagnoses Not on filedocumented in this encounter
--- OUTSIDE RECORDS SUMMARY | 2024-07-15 01:36 | XMS_ITS | Encounter Summary ---
Author Organization [facility] [place] [address] Care Team Providers Care Cadmium Liquor Maker Name Role Phone Anuja Cai APRN Primary Care Provider [phone] Encounter Details Date Type Department Care Team (Late st Contact Info) Description 11/28/2022 Ancillary Procedure [place] [phone] Anuja Cai APRN [address] [place] [address] Social History Tobacco Use Types Packs/Day Years [...] 12:00 PM EDT Office [place] [phone] Britt Zurita MD [facility] [address] [place], [place] [phone] documented as of this encounter Procedures Procedure Name Priority Date/Time Associated Diagnosis Comments FILM LIBRARY STORAGE ONLY DX KNEE Routine 11/28/2022 12:00 AM EST documented in this encounter Results * Film Library- Storage Only DX Knee (11/28/2022 12:00 AM EST) Narrative [facility] - 02/02/2023 10:20 PM EDT This exam is auto-finalizing. It's purpose is for storage only. Anuja Cai APRN Fanny FILM LIBRARY ORD ERABLES Performing Organization Address City/State/[facility] [[email or web address]] Co de Phone Number [place], [place] documented in this encounter Visit Diagnoses Not on filedocumented in this encounter Care Teams Cadmium Liquor Maker Relationship Specialty Start Date End Date Anuja Cai APRN [address] [place] [address] PCP - General Internal Medicine 07/25/21 documented as of this encounter
--- OUTSIDE RECORDS SUMMARY | 2024-07-15 01:36 | XMS_ITS | Encounter Summary ---
[place] [address] Care Team Providers Care Business Applications Analyst Name Role Phone Anuja Cai APRN Primary Care Provider [phone] Encounter Details Date Type Department Care Team (Latest Contact Info) Description 06/03/2022 3:00 PM EDT TH Visit (TeleHealth) [place] [phone] Teri Gonzalez APRN [address] [place] [address] Diarrhea, unspecified type Social History Tobacco Use [...] this encounter Progress Notes * Teri Gonzalez, MANAGER CHANGE - 06/03/2022 3:00 PM EDT GI MOTILITY [...] worse since January 2021. Urgent non- bloody [place] type 5-7 BMs typically 1-2 times per [...] daily. ??? fluticasone propionate (Flonase) 50 mcg/actuation [place], Suspension SPRAY ONE SPRAY IN EACH NOSTRIL [...] has a past surgical history that includes [place] tooth extraction; [place] tooth extraction; Uterine fibroid surgery; Upper Gi Endoscopy, Biopsy (14857) (N/A, 09/30/2021); and Colonoscopy, Diagnostic (95193) (N/A, 09/30/2021). Family History: family history includes [...] 2. Longstanding abdominal pain and urgent non-bloody [place] type 5-7 BMs up to 8 times [...] should be through PCP Teri Gonzalez APRN [facility] [place] [address] documented in this encounter Plan of Treatment Upcoming Encounters Date Type Department Care Team (Late st Contact Info) Description 08/17/2024 12:00 PM EDT Office Visit Rheumatology at [facility] [place] [address] Britt Zurita MD [facility] [place] [address] documented as of this encounter Visit Diagnoses Diagnosis Diarrhea, unspecified type documented in this encounter Care Teams Business Applications Analyst Relationship Specialty Start Date End Date Anuja Cai, MANAGER CHANGE [address] [place] [address] PCP - General Internal Medicine 07/25/21 documented as of this encounter
--- OUTSIDE RECORDS SUMMARY | 2024-07-15 01:36 | XMS_ITS | Encounter Summary ---
Author Organization [facility] [place] [address] Care Team Providers Care Master Control Operator Name Role Phone Unavailable Primary Care Provider Unavailabl e Encounter Details Date Type Department Care Team (Late st Contact Info) Description 05/26/2013 Telephone Obstetrics [place] [address] Julio Cristina MD [facility] DR OBSTETRICS & [place] [address] Social History Tobacco Use Types Packs/Day Years [...] PM EDT Office [place] [address] Britt Zurita MD [facility] [place] [address] documented as of this encounter Visit Diagnoses Not on filedocumented in this encounter
--- OUTSIDE RECORDS SUMMARY | 2024-07-15 01:36 | XMS_ITS | Encounter Summary ---
[place] [address] Care Team Providers Care Powerhouse Electrician Apprentice Name Role Phone Anuja Cai APRN Primary Care Provider [phone] Reason for Referral * Consultation (Routine) - Closed Specialty Diagnoses / Procedures Referred By Ehsan t Referred To Contact Orthopaedics Diagnoses Disorder of bone R KNEE ACL TEAR AND OSTEOCHONDRAL LESION LATERAL FEMORAL CONDYLE Tabatha Carmen APRN [address] [place] [address] [facility] [address] [place] [phone] Referral ID Status Reason Start Date Expiration Date V isits Requested Visits Authorized [id number] Closed Consult, Test & Treat PCP Updated and/or Approved 02/03/2023 02/03/2024 6 6 Encounter Details Date Type Department Care Team (Late st Contact Info) Description 02/03/2023 Transcribe Orders eDH Incoming Referrals [phone] Tabatha Carmen APRN [address] [place] [address] Disorder of bone Social History Tobacco Use [...] 12:00 PM EDT Office [place] [address] Britt Zurita MD [facility] [place] [address] Scheduled Referrals Name Type Priority Associated Diagnoses Order Schedule Referral to Orthopaedics Outpatient Referral Routine Disorder of bone Ordered: 02/03/2023 documented as of this encounter Visit Diagnoses Diagnosis Disorder of bone Disorder of bone and cartilage, unspecified documented in this encounter Care Teams Powerhouse Electrician Apprentice Relationship Specialty Start Date End Date Anuja Cai APRN [address] [place] [address] PCP - General Internal Medicine 07/25/21 documented as of this encounter
--- OUTSIDE RECORDS SUMMARY | 2024-07-15 01:36 | XMS_ITS | Encounter Summary ---
Author Organization [facility] [place] [address] Care Team Providers Care Experimental Machinist Name Role Phone Unavailable Primary Care Provider Unavailabl e Reason for Visit * Reason Comments Thyroid Problem Encounter Details Date Type Department Care Team ([facility] st Contact Info) Description 02/22/2014 3:00 PM EDT Office [place] [address] Camila Beaver MD [facility] [place] [address] Hypothyroidism (Primary Dx) Discharge Disposition: Home Social [...] that weight since then. Saw Endocrinology at [facility] -- blood work and ultrasound diagnosed hypothyroid. [...] were negative. Was sent to Rheumatology at [facility] - no lupus or fibromyalgia. Was told [...] stone Past Surgical History Procedure Date ??? [place] tooth extraction ??? [place] tooth extraction ??? Uterine fibroid surgery Family [...] evaluation. Cate Moran DO Fellow in Endocrinology [facility] Dept of Endocrinology Office: [phone] Pager: [phone] documented in this encounter Plan of Treatment Upcoming Encounters Date Type Department Care Team (Late st Contact Info) Description 08/17/2024 12:00 PM EDT Office [place] [address] Britt Zurita MD [facility] [place] [address] documented as of this encounter Procedures Procedure [...] (02/22/2014 5:18 PM EDT) Cortisol 37.1 mcg/dL [facility] Comment: Reference ranges: ??AM (7-10am): ??6.2-19.4 mcg/dL ??PM (4-8pm): ??2.3-12.3 mcg/dL Blood specimen (specimen) 02/22/2014 5:18 PM EDT 02/22/2014 5:21 PM EDT Narrative Resulting Agency Comment Spec In Lab Camila Beaver MD CHEMISTRY ORDERAB LES Performing Organization Address [facility] Co de Phone Number [facility] * Cortisol (02/22/2014 4:09 PM EDT) Cortisol 6.3 mcg/dL [facility] Comment: Reference ranges: ??AM (7-10am): ??6.2-19.4 mcg/dL ??PM (4-8pm): ??2.3-12.3 mcg/dL Blood specimen (specimen) 02/22/2014 4:09 PM EDT 02/22/2014 4:18 PM EDT Narrative Resulting Agency Comment Spec In Lab Camila Beaver MD CHEMISTRY ORDERAB LES Performing Organization Address City/State/[facility] Co de Phone Number [facility] * (ABNORMAL) VIT D Total Evaluation (02/22/2014 4:09 PM EDT) Pathologist [facility] Vitamin D Total 25 OH 24(L) 30 [...] insufficient or deficient. http://www.kidney.org/professionals/KDOQI/guidelines_bone/Guide7.htm http://nof.org/files/nof/public/content/clinicalupdates/clinicalupdates/Issue2 5VitaminD/2012_VitaminD.html The [employer] iSYS Vitamin D Immunoassay detects both 25-OH Vitamin D2 and 25-OH Vitamin D3, but only a total Vitamin D concentration is reported. Blood specimen (specimen) 02/22/2014 4:09 PM EDT 02/22/2014 4:18 PM EDT Narrative Resulting Agency Comment Spec In Lab Camila Beaver MD CHEMISTRY ORDERAB LES [facility] * (ABNORMAL) Comprehensive metabolic panel (non-fasting) (02/22/2014 4:09 PM EDT) [facility] Glucose 70 60 - 199 mg/dL [facility] Comment:Diabetes: >=200 mg/d L plus symptoms Blood Urea Nitrogen 11 8 - 18 mg/dL [facility] Creatinine 0.83 0.70 - 1.20 mg/dL [facility] Comment: Please note that the pediatric reference intervals supplied above were not validated at [facility]. Results from pediatric patients should be interpreted [...] S67-74 Estimated Average Glucose 97 mg/dL [facility] Comment: eAG equivalents for HbA1c [...] into estimated average glucose values. ??Diabetes Care 2008:31(8):2636-1521. Blood specimen (specimen) 02/22/2014 4:09 PM EDT 02/22/2014 4:18 PM EDT Narrative Resulting Agency Comment Spec In Lab Camila Beaver MD CHEMISTRY ORDERAB LES [facility] documented in this encounter Visit Diagnoses [...]
--- OUTSIDE RECORDS SUMMARY | 2024-07-15 01:36 | XMS_ITS | Encounter Summary ---
Author Organization [facility] [place] [address] Care Team Providers Care Chemical Sprayer Name Role Phone Anuja Cai APRN Primary Care Provider [phone] Encounter Details Date Type Department Care Team (Latest Contact Info) Description 09/30/2021 12:02 PM EST - 09/30/2021 2:41 PM EST Hospital Encounter [place] [address] Guilherme Rock MD [facility] [place] [address] Discharge Disposition: Home Social History Tobacco Use [...] the day after the procedure, use an hcei-ccv-cyafiiz spray to numb your throat. Sucking on [...] occurs, please contact your Doctor. Please call [phone] before 8pm Mon-Fri with problems, questions or concerns. If you call after 8pm or on weekends, call the Hospital at [phone] and ask to speak to the Inspector Production Plastic Parts chronic disease manager and the extractor machine operator will contact that person for you. When should you call for help? Call [phone] anytime you think you may need emergency [...] any problems. Where can you learn more? [facility] View your After Visit Summary and more online at [email or web address]/. If you would like to provide [...] cost to you. Content Version: 12.2 ?? 6595-4875 [employer]. Care instructions adapted under license by [facility]. If you have questions about a medical condition or this instruction, always ask your healthcare professional. [employer] disclaims any warranty or liability for your [...] occurs, please contact your Doctor. Please call [phone] before 8pm Mon-Fri with problems, questions or concerns. If you call after 8pm or on weekends, call the Hospital at [phone] and ask to speak to the Inspector [employer] chronic disease manager and the extractor machine operator will contact that person for you. When should you call for help? Call [phone] anytime you think you may need emergency [...] any problems. Where can you learn more? [facility] View your After Visit Summary and more online at [email or web address]/. If you would like to provide [...] cost to you. Content Version: 12.2 ?? 3389-1759 [employer]. Care instructions adapted under license by [facility]. If you have questions about a medical condition or this instruction, always ask your healthcare professional. [employer] disclaims any warranty or liability for your [...] 02/16/24 07/29/2021 fluticasone propionate (Flonase) 50 mcg/actuation [place], Suspension SPRAY ONE SPRAY IN EACH NOSTRIL [...] Mena thyroiditis Z86.39 ??? Abnormal Pap smear [id number] ??? 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 EXAM: HEENT: [...] 12:00 PM EDT Office [place] [address] Britt Zurita MD [facility] [address] documented as of this encounter Procedures Procedure Name Priority Date/Time Associated Diagnosis Comments SPECIMEN TO PATHOLOGY Routine 09/30/2021 1:46 PM EST SPECIMEN TO PATHOLOGY Routine 09/30/2021 1:25 PM EST SPECIMEN TO PATHOLOGY Routine 09/30/2021 1:25 PM EST SPECIMEN TO PATHOLOGY Routine 09/30/2021 1:25 PM EST SURGICAL PATHOLOGY REPORT Routine 09/30/2021 1:19 PM EST Colonoscopy, Diagnostic ([id number]) 09/30/2021 1:03 PM EST Colonoscopy with biopsies to rule out IBD/microscopic colitis EGD/Waters ON PPI Upper Gi Endoscopy, Biopsy ([id number]) 09/30/2021 1:03 PM EST Colonoscopy with biopsies to rule out IBD/microscopic colitis EGD/Waters ON PPI UPPER GI ENDOSCOPY Routine 09/30/2021 12 :19 PM EST COLONOSCOPY Routine 09/30/2021 12:18 PM EST documented in this encounter Results * Specimen to Pathology (09/30/2021 1:46 PM EST) AP Specimen 09/30/2021 1:46 PM EST 09/30/2021 1:46 PM EST Narrative [facility] - 09/30/2021 1:46 PM EST Specimen requisition ordered. ??Separate Pathology report to follow Guilherme Rock MD PATHOLOGY/CYTOLOGY O RDERAVENICE [facility] [place] [address] * Specimen to Pathology (09/30/2021 1:25 PM EST) AP Specimen 09/30/2021 1:25 PM EST 09/30/2021 1:25 PM EST Narrative [facility] - 09/30/2021 1:25 PM EST Specimen requisition ordered. ??Separate Pathology report to follow Guilherme Rock MD PATHOLOGY/CYTOLOGY O LAZ Performing Organization Address [facility] [place] [address] * Specimen to Pathology (09/30/2021 1:25 PM EST) AP Specimen 09/30/2021 1:25 PM EST 09/30/2021 1:25 PM EST Narrative [facility] - 09/30/2021 1:25 PM EST Specimen requisition ordered. ??Separate Pathology report to follow Guilherme Rock MD PATHOLOGY/CYTOLOGY O LAZ Performing Organization Address [facility] [place] [address] * Specimen to Pathology (09/30/2021 1:25 PM EST) AP Specimen 09/30/2021 1:25 PM EST 09/30/2021 1:25 PM EST Narrative [facility] - 09/30/2021 1:25 PM EST Specimen requisition ordered. ??Separate Pathology report to follow Guilherme Rock MD PATHOLOGY/CYTOLOGY O LAZ Performing Organization Address [facility] [place] [address] * Surgical Pathology Report (09/30/2021 1:19 PM EST) Final Diagnosis [id number] ? Location: 4T; EA07; A The signing [...] Carmen Verified: ??10/07/2021 13:51 ??Pathologist Performed at: ??-[facility] Dept. of Pathology, [place], [place] SPECIMEN(S) SUBMITTED A - Duodenum R/O [...] labeled D1-D3. ??sns 10/07/2021 1:51 PM EST [facility] GI Biopsy 09/30/2021 1:19 PM EST 09/30/2021 1:19 PM EST GI Biopsy 09/30/2021 1:19 PM EST 09/30/2021 1:19 PM EST GI Biopsy 09/30/2021 1:19 PM EST 09/30/2021 1:19 PM EST GI Biopsy 09/30/2021 1:19 PM EST 09/30/2021 1:19 PM EST Guilherme Rock MD PATHOLOGY/CYTOLOGY O RDERAVENICE [facility] [place] [address] * UPPER GI ENDOSCOPY (09/30/2021 12:19 PM EST) UPPER GI ENDOSCOPY [facility] Endoscopy Procedure Date: 09/30/2021 12:19 PM ? Patient Name: Teri Smith ? Date of : 1980 ? Age: 41 ? Order #: [id number] ? Instrument Name: [id number] ? Procedure: ? Upper GI endoscopy Indications: [...] * COLONOSCOPY (09/30/2021 12:18 PM EST) COLONOSCOPY [facility] ___ Procedure Date: 09/30/2021 12:18 PM ? Patient Name: Teri Smith ? Date of : 1980 ? Age: 41 ? Order #: [id number] ? Instrument Name: [id number] ? ___ Procedure: ? Colonoscopy Indications: ? [...] preparation was evaluated using ? the BBPS ([place] Bowel Preparation ? Scale) with scores of: [...] documented as of this encounter Care Teams Chemical Sprayer Relationship Specialty Start Date End Date Anuja Cai APRN [address] [place] [address] PCP - General Internal Medicine 07/25/21 documented as of this encounter
--- OUTSIDE RECORDS SUMMARY | 2024-07-15 01:36 | XMS_ITS | Encounter Summary ---
Author Organization [facility] [place] [address] Care Team Providers Care Wireless Consultant Name Role Phone Anuja Cai HUANG Primary Care Provider + [phone] Encounter Details Date Type Department Care Team (Late st Contact Info) Description 01/13/2024 Orders [place] [phone] Kp Erazo MD [facility] DR [place] [address] Right knee pain, unspecified chronicity Social History [...] 12:00 PM EDT Office [place] [phone] Britt Zurita MD [facility] [place] [address] documented as of this encounter Results * [...] have questions please contact the health director critical care that requested your imaging first. ? Electronically signed by: Juliana Jensen MD, [facility] ([phone]), at 01/26/2024 2:42 PM Narrative 01/26/2024 2:42 [...] patients who have questions please contactthe health director critical care that requested your imaging first. Electronically signed by: Juliana Jensen MD, [facility]([phone]), at 01/26/2024 2:42 PM Kp Erazo MD IMG DX ORDERABLES documented in this encounter Visit Diagnoses Diagnosis Right knee pain, unspecified chronicity Right knee pain, unspecified chronicity documented in this encounter Care Teams Wireless Consultant Relationship Specialty Start Date End Date Anuja Cai APRN [address] [place] [address] PCP - General Internal Medicine 07/25/21 documented as of this encounter
--- OUTSIDE RECORDS SUMMARY | 2024-07-15 01:36 | XMS_ITS | Encounter Summary ---
[place] [address] Care Team Providers Care Associate Account Director Name Role Phone Anuja Cai APRN Primary Care Provider [phone] Reason for Referral * Consultation (Routine) - Closed Specialty Diagnoses / Procedures Referred By Contmaya t Referred To Contact Weight and Wellness Diagnoses Obesity, unspecified classification, unspecified obesity type, unspecified whether serious comorbidity present Obstructive sleep apnea (adult) (pediatric) Anuja Cai APRN [address] [place] [address] [facility] [place] [address] Referral ID Status Reason Start Date Expiration Date V isits Requested Visits Authorized [id number] Closed Consult, Test & Treat 11/24/2022 11/24/2023 6 6 Encounter Details Date Type Department Care Team (Latest Contact Info) Description 11/24/2022 Transcribe Orders eDH Incoming Referrals [phone] Anuja Cai APRN [address] [place], [place] [id number] Obesity, unspecified classification, unspecified obesity type, unspecified [...] EDT Office [place] [address] Britt Zurita MD [facility] [place] [address] Scheduled Referrals Name Type Priority Associated Diagnoses [...] (pediatric) documented in this encounter Care Teams Associate Account Director Relationship Specialty Start Date End Date Anuja Cai APRN [address] [facility] [place] [address] PCP - General Internal Medicine 07/25/21 documented as of this encounter
--- OUTSIDE RECORDS SUMMARY | 2024-07-15 01:36 | XMS_ITS | Encounter Summary ---
Author Organization [facility] [place] [address] Care Team Providers Care Page Technician Name Role Phone Unavailable Primary Care Provider Unavailabl e Reason for Referral * Consultation (Routine) - Complete - Unable to Contact Patient Specialty Diagnoses / Procedures Referred By Ehsan patel Referred To Contact Gastroenterology Diagnoses Diarrhea Liya Richardson [facility] [address] [place] [address] [facility] [address] [place] [phone] Referral ID Status Reason Start Date Expiration Date Visits Requested Visits Authorized [id number] Complete - Unable to Contact Patient Consult, Test & Treat 05/20/2013 11/16/2013 1 1 Reason for Visit * Reason Comments Follow-up tests Encounter Details Date Type Department Care Team ([facility] Contact Info) Description 05/20/2013 7:45 AM EDT Follow-Up [facility] at [facility] [address] [place] [address] Liya Richardson [facility] [address] [place] [address] Fatigue (Primary Dx); Arthralgia; Diarrhea; Shortness of [...] She states that she was seen by dress shoe inspector at [facility] who had referred her to GI, [...] GI, but never went to appt in [place] because of move - reporting frequent diarrhea, will refer to GI for further work up. - Referral to Gastroenterology documented in this encounter Plan of Treatment Upcoming Encounters Date Type Department Care Team (Late st Contact Info) Description 08/17/2024 12:00 PM EDT Office [place] [address] Britt Zurita MD [facility] [place] [address] Scheduled Referrals Name Type Priority Associated Diagnoses Order Schedule Referral to Gastroenterology Outpatient Referral Routine Diarrhea Ordered: 05/20/2013 documented as of this encounter Visit Diagnoses Diagnosis Fatigue- Primary Other malaise and fatigue Arthralgia Pain in joint, site unspecified Diarrhea Shortness of breath documented in this encounter
--- OUTSIDE RECORDS SUMMARY | 2024-07-15 01:36 | XMS_ITS | Encounter Summary ---
Author Organization [facility] William [place] [id number] Care Team Providers Care Hospice Nurse Name Role Phone Anuja Cai APRN Primary Care Provider + [phone] Reason for Visit * Diagnostic Test (Routine) - Closed Specialty Diagnoses / Procedures Referred By Ehsan patel Referred To Contact Gastroenterology Diagnoses Heartburn EGD/Waters ON PPI - heartburn Procedures Waters Capsule pH Test EGD/Waters ON PPI - heartburn Carla Jose TIN PLATER [facility] [place] [address] [facility] [address] [place] [address] Referral ID Status Reason Start Date Expiration Date V isits Requested Visits Authorized [id number] Closed Consult, Test & Treat 08/19/2021 08/19/2022 1 1 Encounter Details Date Type Department Care Team (Latest Contact Info) Description 09/30/2021 1:00 PM EST Procedure visit [place] [address] Heartburn; Chest pain, unspecified type; Gastric ulcer, [...] (Waters) procedure report Patient: Teri Smith [address]: [address] [place] [id number] : 1980 Referring provider: Anuja Cai Date [...] the Schuster Consensus. Gut. 2018 May; 67(7): 6309-7803. 2) Validation of the Schuster classification for GORD diagnosis: acid exposure time assessed by prolonged wireless pH monitoring in healthy controls and patients with erosive oesophagitis. Gut. 2020. doi10.1136/tnrklh-[id number]. Qasim Yang MD Section of Gastroenterology and Hepatology [facility] [place] [address] V: [phone] F: [phone] CC/ETC: Anujageetha Cai, TIN PLATER [address] [place] [address] documented in this encounter Plan of Treatment Upcoming Encounters Date Type Department Care Team (Late st Contact Info) Description 08/17/2024 12:00 PM EDT Office [place] [address] Britt Zurita MD [facility] [place] [address] documented as of this encounter Procedures Procedure Name Priority Date/Time Associated Diagnosis Comments CRYPTOSPORIDIUM OOCYST ANTIGEN ([facility]/CGP/APD) Routine 09/29/2021 3:30 PM EST Heartburn Chest [...] disease, unspecified whether esophagitis present GIARDIA ANTIGEN ([facility]/CGP/APD/NL) Routine 09/29/2021 3:30 PM EST Heartburn Chest pain, unspecified type Gastric ulcer, unspecified chronicity, unspecified whether gastric ulcer hemorrhage or perforation present Incontinence of feces with fecal urgency Steatorrhea Diarrhea, unspecified type Irritable bowel syndrome, unspecified type Hiatal hernia Gastroesophageal reflux disease, unspecified whether esophagitis present documented in this encounter Results * Cryptosporidium Oocyst Antigen ([facility]/CGP/APD) (09/29/2021 3:30 PM EST) Cryptosporidium Antigen Negative Negative [facility] Stool 09/29/2021 3:30 PM EST 09/30/2021 1:35 PM EST Narrative Resulting Agency Comment Spec In Lab Carla Jose TIN PLATER MICROBIOLOGY - GENE RAL ORDERABLES Performing Organization Address City/[facility] Co de Phone Number [facility] [place] [address] * Giardia antigen ([facility]/CGP/APD/[facility]H) (09/29/2021 3:30 PM EST) Giardia Antigen Negative Negative [facility] Comment:Examination for othe r intestinal parasites requires foreign travel history. Stool 09/29/2021 3:30 PM EST 09/30/2021 1:35 PM EST Narrative Resulting Agency Comment Spec In Lab Carla Jose TIN PLATER MICROBIOLOGY - GENE RAL ORDERABLES Performing Organization Address [facility] Co de Phone Number [facility] [place] [address] documented in this encounter Visit Diagnoses Diagnosis [...] documented as of this encounter Care Teams Hospice Nurse Relationship Specialty Start Date End Date Anuja Cai APRN [address] [place] [address] PCP - General Internal Medicine 07/25/21 documented as of this encounter
--- OUTSIDE RECORDS SUMMARY | 2024-07-15 01:36 | XMS_ITS | Encounter Summary ---
[place] [address] Care Team Providers Care Home Health Provider Name Role Phone Anuja Cai APRN Primary Care Provider + [phone] Encounter Details Date Type Department Care Team ([facility] st Contact Info) Description 08/23/2021 [place] [address] Skyler Velasquez Social History Tobacco Use Types [...] CLINICAL SAFETY CHECKLIST 08/23/2021 Skyler Smith [address] [facility] [address] [id number] : 1980 REFERRING PROVIDER: Carla PRIMARY CARE [...] their provider to consider alternative testing. The medical scheduler should also contact the provider's office directly tonotify them that we are unable to schedule due to a contraindication to testing. Then, delete the remainder of this checklist and close out the referral. 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 Have you ever had a/an Upper Endoscopy & Colonoscopy before? Yes: Date egd uv 2012, colo [facility] 2012 If yes, did you have [...] 12:00 PM EDT Office [place] [address] [facility] [place] [address] documented as of this encounter Visit Diagnoses Not on filedocumented in this encounter Care Teams Home Health Provider Relationship Specialty Start Date End Date Anuja Cai APRN [address] [place] [address] PCP - General Internal Medicine 07/25/21 documented as of this encounter
--- OUTSIDE RECORDS SUMMARY | 2024-07-15 01:36 | XMS_ITS | Encounter Summary ---
Author Organization [facility] Address [facility] [place] [address] Care Team Providers Care Ethical Hacker Name Role Phone Anuja Cai APRN Primary Care Provider [phone] Encounter Details Date Type Department Care Team [...] 12:00 PM EDT [place] [address] Britt Zurita MD [facility] [place] [address] documented as of this encounter Visit Diagnoses Not on filedocumented in this encounter Care Teams Ethical Hacker Relationship Specialty Start Date End Date Anuja Cai APRN [address] [place], [place] [address] PCP - General Internal Medicine 07/25/21 documented as of this encounter
--- OUTSIDE RECORDS SUMMARY | 2024-07-15 01:36 | XMS_ITS | Encounter Summary ---
[place] [address] Care Team Providers Care Certified Energy Manager Name Role Phone Anuja Cai APRN Primary Care Provider + [phone] Reason for Referral * Allergy Testing (Routine) - Closed Specialty Diagnoses / Procedures Referred By Contmaya t Referred To Contact Allergy Diagnoses Other allergy status, other than to drugs and biological substances Allergy to other foods Anuja Cai APRN [address] [place] [address] [facility] [address] [place] [address] Referral ID Status Reason Start Date Expiration Date V isits Requested Visits Authorized [id number] Closed Consult, Test & Treat PCP Updated and/or Approved 11/24/2022 11/24/2023 6 6 Encounter Details Date Type Department Care Team (Latest Contact Info) Description 11/24/2022 Transcribe Orders eDH Incoming Referrals [phone] Anuja Cai APRN [address] [place], [place] [id number] Other allergy status, other than to drugs [...] 12:00 PM EDT Office [place] [address] Britt Zurita MD [facility] [place] [address] Scheduled Referrals Name Type Priority Associated Diagnoses Orde r Schedule Referral to Allergy Outpatient Referral Routine Other allergy status, other than to drugs and biological substances Allergy to other foods Ordered: 11/24/2022 documented as of this encounter Visit Diagnoses Diagnosis Other allergy status, other than to drugs and biological substances Allergy to other foods documented in this encounter Care Teams Certified Energy Manager Relationship Specialty Start Date End Date Anuja Cai APRN [address] [place] [address] PCP - General Internal Medicine 07/25/21 documented as of this encounter
--- OUTSIDE RECORDS SUMMARY | 2024-07-15 01:36 | XMS_ITS | Encounter Summary ---
[place] [address] Care Team Providers Care Global Professional Name Role Phone TrellUbaldoe Barbara ENCINAS Primary Care Provider + [phone] Encounter Details Date Type Department Care Team (Late Contact Info) Description 08/04/2022 Telephone [place] [address] Deja Gonzales Social History Tobacco Use Types [...] calls can be handled by: [employer] Carton Stapler documented in this encounter Plan of Treatment Upcoming Encounters Date Type Department Care Team (Late Contact Info) Description 08/17/2024 12:00 PM EDT Office [place] [address] Britt Zurita MD [facility] [place] [address] documented as of this encounter Visit Diagnoses Not on filedocumented in this encounter Care Teams Global Professional Relationship Specialty Start Date End Date Anuja Cai APRN [address] [place] [address] PCP - General Internal Medicine 07/25/21 documented as of this encounter
--- OUTSIDE RECORDS SUMMARY | 2024-07-15 01:36 | XMS_ITS | Encounter Summary ---
[place] [address] Care Team Providers Care Tennis Court Attendant Name Role Phone Anuja Cai APRN Primary Care Provider [phone] Reason for Referral * Consultation (Routine) - Closed Specialty Diagnoses / Procedures Referred By Ehsan patel Referred To Contact Rheumatology Diagnoses Arthralgia, unspecified joint Other chronic pain Other fatigue Other specified abnormal immunological findings in serum Anuja Cai APRN [address] [place] [address] [facility] [address] [place] [phone] Referral ID Status Reason Start Date Expiration Date V isits Requested Visits Authorized [id number] Closed Consult, Test & Treat PCP Updated and/or Approved 02/17/2023 02/17/2024 6 6 Encounter Details Date Type Department Care Team (Latest Contact Info) Description 02/17/2023 Transcribe Orders eDH Incoming Referrals [phone] Anuja Cai APRN [address] [place], [place] [id number] Arthralgia, unspecified joint; Other chronic pain; Other [...] 12:00 PM EDT Office [place] [address] Britt Zurita MD [facility] [place] [address] Scheduled Referrals Name Type Priority Associated Diagnoses Orde r Schedule Referral to Rheumatology Outpatient Referral Routine Arthralgia, unspecified joint Other chronic pain Other fatigue Other specified abnormal immunological findings in serum Ordered: 02/17/2023 documented as of this encounter Visit Diagnoses Diagnosis Arthralgia, unspecified joint Other chronic pain Other fatigue Other specified abnormal immunological findings in serum documented in this encounter Care Teams Tennis Court Attendant Relationship Specialty Start Date End Date Anuja Cai APRN [address] [place] [address] PCP - General Internal Medicine 07/25/21 documented as of this encounter
--- OUTSIDE RECORDS SUMMARY | 2024-07-15 01:37 | XMS_ITS | Encounter Summary ---
Author Organization [facility] Address [place] [address] Care Team Providers Care Bracer Name Role Phone Unavailable Primary Care Provider Unavailabl e Reason for Referral * Consultation (Urgent) - Closed Specialty Diagnoses / Procedures Referred By Contmaya t Referred To Contact Otolaryngology Diagnoses Strep pharyngitis Kassy Toscano MD [facility] [place] [address] [facility] [address] [place] [phone] Referral ID Status Reason Start Date Expiration Date V isits Requested Visits Authorized [id number] Closed Specialty Service Requested 03/09/2013 09/05/2013 1 1 Reason for Visit * Reason Comments Throat Pain Encounter Details Date Type Department Care Team (Late st Contact Info) Description 03/09/2013 1:53 AM EDT - 03/09/2013 3:07 AM EDT [place] [address] Kassy Toscano MD [facility] [place] [address] Strep pharyngitis (Primary Dx) Discharge [...] Everywhere. * STREP THROAT: AFTER YOUR VISIT (ROMANIAN) documented in this encounter Medications at Time [...] by the patient and medical records. No tenter feeder was used. 32-year-old female presents emergency department [...] 12:00 PM EDT Office [place] [address] Britt Zurita MD [facility] [place] [address] Scheduled Referrals Name Type Priority Associated Diagnoses [...]
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
--- OUTSIDE RECORDS SUMMARY | 2024-07-15 01:37 | XMS_ITS | Encounter Summary ---
Author Organization [facility] [place] [address] Care Team Providers Care Cane Pusher Name Role Phone Unavailable Primary Care Provider Unavailabl e Reason for Visit * Reason Comments Pharyngitis Encounter Details Date Type Department Care Team ([facility] st Contact Info) Description 03/24/2013 2:15 PM EDT Office [place] [address] Parvin Bennett HOLISTIC SPECIALIST [facility] [place] [address] Pharyngitis (Primary Dx) Discharge Disposition: Home Social [...] Visit: 03/24/2013 Location of Visit: Otolaryngology Clinic, [facility] Patient: Teri Haro ([id number] ; 1980 Primary Care Provider: VIJAY RICHARDSON [...] to strep. 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 Teri does smoke 1 pack/day x 14 years. She would like to quit. Teri does have a hx of chronic fatigue, reflux with hiatal hernia. She is currently taking Omeprazole 40 mg /day and feels that does control her reflux symptoms. Past Medical History: Other then above, night sweats, Hashimotto disease, Past Surgical History: Past Surgical History Procedure Date ??? Tieton tooth extraction Medications: Current Outpatient Prescriptions on File Prior to Visit Medication Sig Dispense Refill ??? omeprazole (PRILOSEC) 40 mg capsule Take 1 capsule by mouth daily. 30 capsule 11 ??? levothyroxine (SYNTHROID) 88 mcg tablet Take 88 mcg by mouth daily. Allergies: Review of patient's allergies indicates no known allergies. Social History: Teri Haro lives in [facility] [address]. She has a 5 year old child. [...] symptomsor sooner if needed. Parvin NARANJO [place], [place] [address] Office documented in this encounter Plan of Treatment Upcoming Encounters Date Type Department Care Team (Late st Contact Info) Description 08/17/2024 12:00 PM EDT [place] [address] Britt Zurita MD [facility] [place] [address] documented as of this encounter Procedures Procedure Name Priority Date/Time Associated Diagnosis Comments UPPER RESPIRATORY CULTURE Routine 03/24/2013 3:20 PM EDT Pharyngitis documented in this encounter Results * Upper Respiratory Culture Throat (03/24/2013 3:20 PM EDT) Upper Respiratory Culture ? Patient Name: TERI HARO ?Ordered By: OSCAR NELSON ? MR#: [id number] ?LOC: ??4F ? /Sex: ??1980 (32 years), [...] Lab Oscar Nelson MD MICROBIOLOGY - GENE [facility] ORDERABLES RUBEN BENNETT documented in this encounter Visit Diagnoses Diagnosis Pharyngitis- Primary Acute pharyngitis documented in this encounter
[2024-07-15 11:13] LABS: HCT 35.6 % (36.0-46.0); HGB 11.9 g/dL (11.2-15.7); MCH 29.5 pg (27.0-33.0); MCHC 33.4 % (32.0-36.0); MCV 88 fL (80-95); MPV 10.2 fL (8.0-11.0); Platelet Count 272 10^3/uL (130-400); RBC 4.04 10^6/uL (3.93-5.22); RDW 11.7 % (11.7-14.6); RDW-SD 37.7 fL; WBC 6.21 10^3/uL (4.4-10.8)
[2024-07-15 11:14] LABS: ESR 4 mm/hr (0-20)
[2024-07-15 11:41] LABS: C-Reactive Protein 0.58 mg/dL (<or=0.5); TSH (W/Ref FT4) 1.38 uIU/mL (0.36-3.74)
== END 2024-07-15 01:29 | disposition home or self-care (01) ==
LOC: LBO 01:29
PROVIDERS: Nurse Practitioner Family; PCP Nurse Practitioner; Visit Provider Nurse Practitioner
DX: K58.9 Irritable bowel syndrome, unspecified (principal); E03.9 Hypothyroidism, unspecified
CPT/HCPCS: 36415; 85027; 85652; 84443; 86140

== ENCOUNTER 2024-07-28 02:26 | Outpatient (CLI) | payer MEDICAID, SELFPAY ==
--- NOTE | 2024-07-28 07:15 | DI.US_ITS ---
Exam(s) US RENAL EXAM: US RENAL CLINICAL HISTORY: monitoring renal cyst to left,n28.1. TECHNIQUE: Cobian scale, color and spectral Doppler were used. COMPARISON: US US RENAL from 03/24/2023 FINDINGS: Renal size in cm: Right: 11.6. Left: 11.4. Echogenicity: Normal. Hydronephrosis: No. Cyst or mass: No renal cyst is C sonographically. Nephrolithiasis: There is an echogenic focus in the midpole of the left kidney which may represent a nonobstructing stone. Other findings: None. Bladder:Normal. Ureteral jets: Right: Visualized and unremarkable. Left: Visualized and unremarkable. Prevoid vol:392 cc Postvoid vol:22 cc Renal color flow: Symmetric and within normal limits. IMPRESSION: 1. No evidence of a renal cyst sonographically. 2. 6 mm echogenic focus in the left kidney which may represent a nonobstructing stone. If further im aging is warranted, renal colic CT may be obtained. DATA REPOSITORY:
== END 2024-07-28 02:46 ==
LOC: DI 02:26
PROVIDERS: PCP Nurse Practitioner; Visit Provider Nurse Practitioner Gerontology
DX: N28.1 Cyst of kidney, acquired (principal)
CPT/HCPCS: 76770

== ENCOUNTER 2024-08-16 15:22 | Outpatient (CLI) | payer MEDICAID, SELFPAY ==
--- NOTE | 2024-08-16 08:15 | DI.RAD_ITS ---
Exam(s) XR SHOULDER LT COMPLETE 2+V EXAM: XR SHOULDER LT COMPLETE 2+V CLINICAL HISTORY: evaluate. TECHNIQUE: 2D digital imaging was performed of the left shoulder. Two images were obtained. Axilla ry and Grashey views were obtained. COMPARISON: No exams were available for comparison FINDINGS: BONES: No acute fracture is present. No bony destructive lesion is seen. JOINTS: No dislocation present. The acromioclavicular and glenohumeral joints are well maintained. SOFT TISSUE: Normal. IMPRESSION: No acute abnormality. DATA REPOSITORY: RADIATION DOSE DELIVERED:
== END 2024-08-16 15:23 | disposition home or self-care (01) ==
LOC: DIORS 15:22
PROVIDERS: PCP Nurse Practitioner; Visit Provider Student in an Organized Health Care Education/Training Program
DX: M25.512 Pain in left shoulder (principal)
CPT/HCPCS: 73030

== ENCOUNTER 2024-09-01 02:19 | Outpatient (CLI) | payer MEDICAID, SELFPAY ==
--- NOTE | 2024-09-01 07:00 | DI.MRI_ITS ---
Exam(s) MR UPPER JOINT LT WO EXAM: MR UPPER JOINT LT WO CLINICAL HISTORY: ? rotator cuff tear,lt shoulder pain,adhesive capsulitis,m25.512,m75.02. TECHNIQUE: Multiplanar multisequence MRI was performed. COMPARISON: Plain films 16 August 2024 FINDINGS: BONES: No discrete fracture. Mild edema posterior humeral head. JOINTS:The acromioclavicular joint is normal. The glenohumeral joint shows minimal fluid. There is thickening of the inferior capsule with mild surrounding edema which could indicate adhesive capsulit is. TENDONS: Supraspinatus: Unremarkable. Infraspinatus: Unremarkable. Subscapularis: Unremarkable. Teres Minor: Unremarkable. Biceps and Bynum: Unremarkable. MUSCLES: Unremarkable. GLENOID LABRUM: No visible discrete labral tear. SOFT TISSUES: Unremarkable. OTHER: Subacromial and subdeltoid bursae shows minimal fluid. Small amount of fluid noted in subcor acoid bursa. IMPRESSION: Findings consistent with adhesive capsulitis. No rotator cuff tear. DATA REPOSITORY:
== END 2024-09-01 02:39 ==
LOC: DI 02:20
PROVIDERS: PCP Nurse Practitioner; Visit Provider Student in an Organized Health Care Education/Training Program
DX: M75.02 Adhesive capsulitis of left shoulder (principal)
CPT/HCPCS: 73221

== ENCOUNTER 2024-09-12 15:31 | Outpatient (CLI) | payer MEDICAID, SELFPAY ==
--- NOTE | 2024-09-12 09:00 | DI.RAD_ITS ---
Exam(s) XR WRIST LT COMPLETE EXAM: XR WRIST LT COMPLETE CLINICAL HISTORY: S/P ORIF L WRIST. TECHNIQUE: 2D digital imaging was performed. Three views. COMPARISON: CR XR WRIST LT COMPLETE from 04/11/2024 CR XR WRIST LT COMPLETE from 05/23/2024 CR XR WRIST LT COMPLETE from 06/20/2024 FINDINGS: BONES: Distal ulnar fixation plate remains in place. The fracture is no longer visible. No acute fr acture is present. No bony destructive lesion is seen. JOINTS: The carpal bones are normally aligned. Mild degenerative changes. SOFT TISSUE: Normal. IMPRESSION: Healing of distal ulnar fracture. DATA REPOSITORY: RADIATION DOSE DELIVERED:
== END 2024-09-12 15:32 | disposition home or self-care (01) ==
LOC: DIORS 15:31
PROVIDERS: PCP Nurse Practitioner; Visit Provider Student in an Organized Health Care Education/Training Program
DX: S52.615D Nondisplaced fracture of left ulna styloid process, subsequent encounter for closed fracture with routine healing (principal); X58.XXXD Exposure to other specified factors, subsequent encounter
CPT/HCPCS: 73110

== ENCOUNTER 2024-09-26 01:26 | Outpatient (CLI) | payer MEDICAID, SELFPAY ==
--- NOTE | 2024-09-26 16:27 | DI.CT_ITS ---
Exam(s) CT UPPER EXTREMITY LT WO EXAM: CT UPPER EXTREMITY LT WO CLINICAL HISTORY: PAIN, SURGICAL PLANNING,painful orthopedic hardware,closed fx distal end of TECHNIQUE: Imaging Protocol: Axial computed tomography images with coronal and sagittal reformatted images were created and reviewed. CONTRAST MATERIAL: Intravenous: Omnipaque 350 Contrast volume:structured data in ml Contrast route:I V - Oral: yes / no COMPARISON: CR XR WRIST LT COMPLETE from 06/20/2024 CR XR WRIST LT COMPLETE from 09/12/2024 FINDINGS: OSSEOUS: Again noted is a medial fixation plate along the distal ulna measuring 4.5 cm length and secured by 6 screws. There are no fracture lines evident at this time. Ulnar styloid appears intact and there i s no significant ulnar variance. Distal radius as well as carpal row bones appear unremarkable. No evidence of osteomyelitis. IMPRESSION: Fracture site appears healed. Hardware is intact. RADIATION DOSE DELIVERED: 64.81mGy.cm Total DLP DATA REPOSITORY: All CT scans at this facility are submitted to the National Radiology Data Registry (NRDR) Dose Index Registry (DIR) with the [employer] ([employer]). RADIATION OPTIMIZATION: All CT scans at this facility use at least one of these dose optimization te chniques: automated exposure control; mA and/or kV adjustment per patient size (includes targeted exa ms where dose is matched to clinical indication); or iterative reconstruction.
== END 2024-09-26 01:46 ==
LOC: DI 01:26
PROVIDERS: PCP Nurse Practitioner; Visit Provider Student in an Organized Health Care Education/Training Program
DX: T84.84XD Pain due to internal orthopedic prosthetic devices, implants and grafts, subsequent encounter (principal); S52.615D Nondisplaced fracture of left ulna styloid process, subsequent encounter for closed fracture with routine healing; X58.XXXD Exposure to other specified factors, subsequent encounter
CPT/HCPCS: 73200

== ENCOUNTER 2024-10-04 09:54 | Day surgery (SDC) | payer MEDICAID, SELFPAY ==
[2024-10-04] VITALS (19 sets, daily range): BP systolic 104–128; BP diastolic 60–81; PULSE 57–84; RESP 12–26; TEMP 36–36.7; O2SAT 99–100
--- NOTE | 2024-10-04 06:55 | W.ANESPRE ---
General Info Date of Service Date Performed: 10/04/24 Height: 5 ft 7 in Weight: 87.09 kg Body Mass Index (BMI): 30.0 Surgical Procedure: Operation Date: 10/04/24 13:10 Proposed Procedure Side Surgeon p Wrist Hardware Removal Left Marbin Brand MD Meds Allergies and Home Medications Allergies Allergy/AdvReac Type Severity Reaction Status Date / Time kiwi Allergy Intermediate Anaphylaxsi Verified 10/04/24 10:17 s house dust mite Allergy Unknown sneezing, Verified 10/04/24 10:17 runny nose Home Medication ?Medication ?Instructions ?Recorded cholecalciferol (vitamin D3) 1,250 1,250 mcg PO QWEEK #12 caps 11/20/22 mcg (50,000 unit) capsule levothyroxine 112 mcg tablet 112 mcg PO DAILY #90 tabs 04/12/24 fluticasone propionate 50 See Rx Instructions .Route 05/30/24 mcg/actuation nasal .COMPLEX #16 mL spray,suspension lisinopril 10 mg tablet See Rx Instructions .Route 09/06/24 .COMPLEX #90 tabs mupirocin 2 % topical ointment 1 applic topical BID #15 grams 09/13/24 triamcinolone acetonide 0.1 % 1 applic topical BID #15 grams 09/13/24 topical cream famotidine 20 mg tablet 20 mg PO DAILY #90 tabs 09/20/24 acetaminophen 500 mg tablet 1,000 mg (2 x 500 mg) PO Q8H PRN 10/04/24 pain #90 tabs hydrocodone 5 mg-acetaminophen 325 1 tab PO Q6H PRN severe pain #12 10/04/24 mg tablet tabs ibuprofen 600 mg tablet 600 mg PO TID PRN pain #60 tabs 10/04/24 Current Visit Medications: Current Medications Generic Name Dose Route Start Last Admin Trade Name Freq PRN Reason Stop Dose Admin Acetaminophen 1,000 mg 10/04/24 06:00 Acetaminophen 500 Mg Tab PO 10/04/24 23:59 PREOP CATR[place]O Celecoxib 400 mg 10/04/24 06:00 Celecoxib 200 Mg Cap PO 10/04/24 23:59 PREOP CATR[place]O Ringer's Solution 1,000 mls @ 80 mls/hr 10/04/24 06:00 IV 10/04/24 23:59 INFUSION [facility] Cefazolin Sodium/Dextrose 2 gm in 50 mls @ 100 mls/hr 10/04/24 06:00 Ancef Duplex IVPB 10/04/24 23:59 PREOP CATR[place]O Tranexamic Acid/Sodium Chloride 1,000 mg in 100 mls @ 600 mls/hr 10/04/24 06:00 IVPB 10/04/24 23:59 PREOP CATR[place]O IV Miscellaneous Supplies 1 each 10/04/24 06:00 Iv Access IV 10/04/24 23:59 DIRECTED [facility]O Sodium Chloride 0 ml 10/04/24 06:00 Normal Saline Flush 10 Ml Syr IV 10/04/24 23:59 PRN PRN Sodium Chloride 0 ml 10/04/24 06:00 Normal Saline 10 Ml Vial IJ 10/04/24 23:59 DIRECTED PRN Sterile Water 0 ml 10/04/24 06:00 Water,Injection,Sterile 10 Ml Vial IJ 10/04/24 23:59 DIRECTED PRN PFSH Active Problems Active Problems: Problem Status Onset Code Painful orthopaedic hardware Acute T84.84XA Adhesive capsulitis of left shoulder Acute M75.02 Renal calculi Chronic N20.0 Closed fracture of distal end of left ulna Acute 01/31/24 S52.602A Pain in right knee Acute M25.561 Vaginal odor Acute N89.8 Polyarthralgia Acute M25.50 Steatorrhea Acute K90.9 Incontinence of feces with fecal urgency Acute R15.9, R15.2 Gastric ulcer Acute K25.9 Chest pain, unspecified Acute R07.9 Diarrhea, unspecified Acute R19.7 Low back pain Acute M54.5 Obesity Chronic E66.9 Loose stools Acute R19.5 Hiatal hernia Chronic K44.9 Essential hypertension Acute I10 Abdominal pain Acute R10.9 Muscle cramps Acute R25.2 Environmental allergies Acute Z91.09 ADHD Acute F90.9 Weight gain Acute R63.5 Low blood sugar reading Acute E16.2 Mild obstructive sleep apnea Acute G47.33 Anxiety and depression Chronic F41.9, F32.9 Chronic pain of multiple joints Acute M25.50, G89.29 Dry eyes Acute H04.123 Body aches Acute R52 Fatigue Acute R53.83 Family history of diabetes mellitus Acute Z83.3 Family history of coronary artery disease Acute Z82.49 Family history of thyroid cancer Acute Z80.8 Family history of aneurysm of blood vessel of brain Acute Z82.49 Clinical xerostomia Acute K11.7 Shoulder pain, bilateral Acute M25.511, M25.512 Exposure to viral hepatitis Acute Z20.5 Lack of energy Acute R53.83 Renal colic Acute N23 Muscle pain Acute M79.10 Joint pain Acute M25.50 Premenstrual tension syndrome Acute N94.3 IBS (irritable bowel syndrome) Chronic K58.9 Gastroesophageal reflux disease Chronic K21.9 Obstructive sleep apnea Chronic G47.33 ADHD Acute F90.9 PTSD (post-traumatic stress disorder) Acute F43.10 Adjustment disorder with mixed emotional features Acute F43.29 Binge eating disorder Acute F50.81 Hypothyroidism Chronic E03.9 Candidal vulvovaginitis Acute B37.3 Medical History Medical History Gastric ulcer, unspecified as acute or chronic, without hemorrhage or perforation Heartburn Palpitations Holter 01/10/11 History of cardiac murmur as a child Surgical History Surgical History History of esophagogastroduodenoscopy (EGD) (10/07/21) Wireless pH-metry ([facility]) procedure report. Neg H.Pylori [place] teeth extracted (~2000) Status post hysteroscopic surgical removal of uterine septum (~2003) H/O tubal ligation (~2014) delivery delivered (12/03/14) Tobacco Smoking/Tobacco Use Status: Former Tobacco Use Smokeless tobacco user: other (quit vaping 11/18/20) Alcohol Alcohol Intake: current Alcohol intake frequency: holidays/special occasions only Alcohol type: wine Substance Use Substance use: Never Substance use type: does not use Prental History History 4 Para 2 Hx # Term Pregnancies 2 Multiple births Hx # Pregnancies Ectopic pregnancies AB induced Hx Number of Living Children 2 AB spontaneous Vital Signs and Lab Results Vital Signs Most Recent Vital Signs in EMR: Temp Pulse Resp BP Pulse Ox 36.3 C L 69 16 119/81 99 10/04/24 10:07 10/04/24 10:07 10/04/24 10:07 10/04/24 10:07 10/04/24 10:07 Lab Results Blood Type / Crossmatch: No Data to Display Complete Blood Count: No Data to Display Complete Metabolic Panel: No Data to Display Liver Function Panel: No Data to Display Coagulation Panel: No Data to Display Cardiac Panel: No Data to Display Arterial Blood Gas: No Data to Display Venous Blood Gas: No Data to Display Pancreas Panel: No Data to Display Thyroid Panel: No Data to Display Infectious Disease: No Data to Display Blood Cultures: No Data to Display Toxicology Panel: No Data to Display Panel: No Data to Display Imaging and Studies Imaging and Studies Study information below may be from another EMR and interpreted by another provider. Please see original notes in EMR for more complete details. EKG Summary: 07/10/21 Conclusion Sinus rhythm...normal P axis, V-rate 60- 99 I have reviewed and I agree with the emergency room physician's ECG interpretation. Other Study Summary:: 2022 holter monitor read reviewed- NSR with some PACs- see results in chart Anesthesia Assessment and Plan Anesthesia History Personal History: PONV Family History: No Family History of Anesthesia Complications Exercise Tolerance Exercise Tolerance: Metabolic Equivalents>4 Cardiac & Pulmonary Exam Cardiac Exam: Normal S1/S2 Heart Sounds Pulmonary Exam: Clear Bilateral Breath Sounds Implantable Cardiac Device Does patient have a Pacemaker or an ICD?: No Airway Exam Known Difficult Airway: No Mallampati Class: 3 Mouth Opening: Normal (> 3cm) Thyromental Distance: Greater than 3 cm Neck Range of Motion: Full ROM Neck Circumference: Normal Teeth Condition: Normal Dentition ASA Classification ASA Score: ASA 2 Emergency Case?: No NPO Status NPO Status: NPO Clears >2 hours, Solids >8 hours Status Status: Pt. refuses testing, she was counseled on anesthesia risks (unable to pee) Anesthesia Plan Resuscitation Status: Full Code Anesthesia Technique: General Anesthesia Airway Planned: LMA Monitors Used: Standard Monitors Preoperative Comments:: 44 yo female for hardware removal. PONV in the past assoc with her uterine septum surgery. Sig PMHx: HTN (lisinopril, well controlled), TAMMY (mild, no CPAP), ulcer/hiatal hernia, GERD (occ famotidine use, zero symptoms today. In general it is not a big issues) hypothyroid (on replacement), polyarthralgia, anxiety/depression, PTSD. former smoker. Previous Anes: - Ulna ORIF, glide 3 grade 2b, easy mask.
--- NOTE | 2024-10-04 10:07 | W.PM.DSUDISC ---
Date of service: 10/04/24 Discharge Plan Disposition Patient Disposition: Home Condition: Good Discharge Details Reason For Visit: Painful orthopedic hardware - left ulna Attending Provider: Marbin Brand Primary Care Provider: Anuja Cai Home Meds and New Rx's Prescriptions: New hydrocodone-acetaminophen 5-325 mg tablet 1 tab PO Q6H PRN (Reason: severe pain) Qty: 12 0RF Rx Instructions: Take one tablet up to every 6 hours as needed for severe postoperative pain acetaminophen 500 mg tablet 1,000 mg PO Q8H PRN Qty: 90 0RF Rx Instructions: Take two tablets up to every 8 hours as needed for pain ibuprofen 600 mg tablet 600 mg PO TID PRN (Reason: pain) Qty: 60 0RF Continued cholecalciferol (vitamin D3) 1,250 mcg (50,000 unit) capsule 1,250 mcg PO QWEEK Qty: 12 3RF triamcinolone acetonide 0.1 % cream 1 applic topical BID Qty: 15 0RF mupirocin 2 % ointment 1 applic topical BID Qty: 15 0RF levothyroxine 112 mcg tablet 112 mcg PO DAILY Qty: 90 3RF fluticasone propionate 50 mcg/actuation spray,suspension See Rx Instructions .ROUTE .COMPLEX Qty: 16 12RF Dose Instruction: SPRAY ONE SPRAY IN EACH NOSTRIL TWICE A DAY Rx Instructions: SPRAY ONE SPRAY IN EACH NOSTRIL TWICE A DAY lisinopril 10 mg tablet See Rx Instructions .ROUTE .COMPLEX Qty: 90 3RF Dose Instruction: TAKE ONE TABLET BY MOUTH EVERY DAY Rx Instructions: TAKE ONE TABLET BY MOUTH EVERY DAY famotidine 20 mg tablet 20 mg PO DAILY Qty: 90 3RF Discontinued naproxen 500 mg tablet 500 mg PO BID PRN (Reason: pain) Qty: 60 0RF acetaminophen 500 mg tablet 1,000 mg PO Q8H PRN (Reason: pain) Qty: 90 3RF Discharge Instructions Additional Instructions: Hardware Removal Discharge Instructions Activity: You should keep the hand/wrist elevated as much as possible for the first few days. You may use the other fingers as tolerated but avoid trying to do too much too soon. You may perform light activities with the dressing in place. Dressing/Cast: Your dressing should stay in place for 72 hours. After 72 hours you may remove the bulky dressing but keep Mepilex bandage intact. Once you have removed the bulky dressing you can get the arm wet with the Mepilex in place. Avoid soaking. If needed in the first 72 hours you may loosen the KVNG wrap if you feel it is too tight and then rewrap more loosely. Medications: - You should take Tylenol and Ibuprofen for baseline pain control. - You have been prescribed a stronger pain medication, Hydrocodone, for breakthrough pain. Follow-up: 10-14 days Referrals: Marbin Brand MD [ [facility] STAFF PHYSICIAN] - Equipment/Supplies: Sling Activity:: Elevate Remove Dressings/Wound Care:: 72 hours Shower/Bathe:: 72 hours and Cover Diet:: As Tolerated Discharge Orders Discharge Orders: Discharge Order (Routine); Ordered 10/04/24 Ordered By: Angi Jeffrey
[2024-10-04] MEDS: Acetaminophen 500 MG TAB 1000 MG PO (10:19)
[2024-10-04] MEDS: Celecoxib 200 MG CAP 400 MG PO (10:20)
[2024-10-04] MEDS: Normal Saline Flush 10 ML SYR IV (10:54)
[2024-10-04] MEDS: Lactated Ringers 1,000 ML 1000 ML IV (10:54)
--- NOTE | 2024-10-04 14:00 | DI.RAD_ITS ---
Exam(s) XR WRIST LT LIMITED EXAM: XR WRIST LT LIMITED CLINICAL HISTORY: PAINFUL WRIST HARDWARE, LEFT. TECHNIQUE: 2D and realtime digital imaging was performed. COMPARISON: CR XR WRIST LT COMPLETE from 09/12/2024 FINDINGS: Hard copy images show removal previously noted hardware in the distal ulna. Please see procedure note for details. Fluoro time: 0.05 minutes RADIATION DOSE DELIVERED: alonso Adam=0.02 mGy
[2024-10-04] MEDS: ceFAZolin 2 GM/50 ML BAG IVPB (14:07)
[2024-10-04] MEDS: TRANEXAMIC ACID/SOD. CHL. 1,000 MG/100 ML BAG 600 MG IVPB (14:12)
[2024-10-04] MEDS: Lactated Ringers 1,000 ML 80 ML IV (14:32)
[2024-10-04] MEDS: Bupivacaine 0.25% Pres-Free W/EPI 30 ML VIAL (14:43)
--- NOTE | 2024-10-04 15:11 | W.ANESPOSTOP ---
Postoperative Evaluation Date, Time and Location Date Performed: 10/04/24 Time Performed: 15:11 Patient Location: PACU Vital Signs Most Recent Imported Vital Signs: Most Recent Vital Signs Temp Pulse Resp BP Pulse Ox 36.7 C 77 26 H 104/60 99 10/04/24 15:02 10/04/24 15:02 10/04/24 15:02 10/04/24 15:02 10/04/24 15:02 Pain Score Most Recent Pain Score: Most Recent Pain Score Pain Level 0 10/04/24 10:07 Assessment Mental Status: Awake (Alert & Oriented to Patient Baseline) Airway and Respiratory Function: Patent airway with normal (patient baseline) respiratory exam Cardiovascular Function: Hemodynamically Stable Hydration Status: Adequately Hydrated Nausea & Vomiting: No Nausea or Vomiting Pain: Pain is tolerable per patient Peripheral Nerve Block: Patient did not receive a nerve block
[2024-10-04] MEDS: HYDROmorphone 1 MG/ML SYR IVP ×2 (15:13→15:25)
--- NOTE | 2024-10-04 15:27 | W.PM.OP ---
Operative Note Operative Note PRE-OP DIAGNOSIS: Painful Hardware - Left Distal Ulna POST-OP DIAGNOSIS: same PROCEDURE: Removal of hardware?left distal ulna SURGEON: Marbin Brand ON SITE [employer] TECHNICIAN: Angi Jeffrey ANESTHESIA TYPE: General LMA/ETT Refer to Anesthesia Record ESTIMATED BLOOD LOSS: 5 PATHOLOGY: none sent TOURNIQUET TIME: 0 COMPLICATIONS: None Indications: Teri is a 44-year-old female who is status post open reduction internal fixation of a displaced distal ulnar fracture of the left wrist. The fracture healed but she still had some restriction in motion as well as pain overlying the plate. Therefore, after confirmation of healing CT scan which also showed 1 screw being about 1 to 2 mm long, I recommended removing the hardware. I reviewed the technical details with her. I reviewed the risk to include bleeding, infection, pain, stiffness, refracture, damage nerves and vessels. Despite these risk, she elects to proceed. Findings: The plate and screws about the distal ulna were removed without difficulty. Procedure Description: Teri was greeted in the preoperative holding area. Her identity was confirmed and the correct site was identified and marked. The consent was reviewed with the patient and signed. The history and physical was updated. She is then taken back to the operating room. She was kept in the supine position on the stretcher. Her left arm was placed onto a hand table. No tourniquet was utilized. The left arm was prepped with ChloraPrep and draped in a standard fashion. Prophylactic antibiotics in the form of cefazolin were administered. A timeout was performed for safe surgery. The previous incision site was anesthetized with 0.25% bupivacaine with epinephrine. I then incised the previous incision through the skin only. Deep dissection was made with Metzenbaum scissors to identify the subcutaneous border of the ulna distally. This was then further dissected with electrocautery and with scissor dissection to identify the plate underneath the periosteum of the ulna. This area was then incised with the scissors and then with an elevator staying on the bone and the plate. The plate was fully exposed. I was able to remove all screws without difficulty. The plate was also removed without difficulty. Final x-rays were obtained showing no remaining screw or plate. Range of motion was then tested and showed some improvement from her preoperative range of motion. There was no significant bleeding. The wound was thoroughly irrigated. The deep structures were injected with 0.25% bupivacaine. The periosteum and deeper structures were closed with 0 Vicryl. The subcutaneous tissue was closed with 2-0 and 3-0 Vicryl. The skin was closed with a running subcuticular 4-0 Monocryl. This was reinforced skin glue. Mepilex dressing was placed over the incision site followed by an Elvin wrap. At the end the case all counts were correct. She was transferred back to the PACU in stable condition. She may feel free to move her wrist and her fingers as tolerated. I recommend against any weightbearing on the left hand such as pushing off or pulling with any force but she may use the hand for all activities of daily living and light lifting and grasping. Date of Procedure: 10/04/24
== END 2024-10-04 16:31 | disposition home or self-care (01) ==
PROVIDERS: PCP Nurse Practitioner; Visit Provider Student in an Organized Health Care Education/Training Program
PROC: (CPT 20680; principal; 2024-10-04 13:00)
DX: T84.84XA Pain due to internal orthopedic prosthetic devices, implants and grafts, initial encounter (principal); E66.9 Obesity, unspecified; M54.50 Low back pain, unspecified; I10 Essential (primary) hypertension; K44.9 Diaphragmatic hernia without obstruction or gangrene
CPT/HCPCS: 20680; 76000; 73100; J0690; J1100; J1171; J2405; J2704

== ENCOUNTER 2024-11-17 00:22 | Outpatient (CLI) | payer MEDICAID, SELFPAY ==
--- NOTE | 2024-11-17 08:46 | DI.US_ITS ---
Exam(s) US THYROID EXAM: US THYROID CLINICAL HISTORY: enlarged thyroid,hypothyroidism,e03.9. TECHNIQUE: Ultrasound thyroid performed using standard protocol. COMPARISON: No exams were available for comparison FINDINGS: ISTHMUS: 3 mm RIGHT LOBE: Size: 4.3 x 1.2 x 1.1 cm Echogenicity: Heterogeneous. Vascularity: Normal. Nodules: 1. Upper pole. 6 x 5 x 5 millimeter solid hypoechoic smoothly marginated nodule without ec hogenic foci. There is mild extrathyroidal extension. TR 5. Follow-up recommended. 2. Upper pole. 6 x 4 x 4 millimeter mixed cystic and solid lesion with punctate calcifications, smo oth margins. TR 4. 3. Mid thyroid small colloid cyst. LEFT LOBE: Size: 3.3 x 0.9 x 1.2 cm Echogenicity: Heterogeneous. Vascularity: Normal. Nodules: None. OTHER FINDINGS: No adenopathy. IMPRESSION: 6 millimeter nodule upper pole right lobe TR 5, follow-up recommended. DATA REPOSITORY:
== END 2024-11-17 00:42 ==
LOC: DI 00:22
PROVIDERS: PCP Nurse Practitioner; Visit Provider Nurse Practitioner
DX: E04.1 Nontoxic single thyroid nodule (principal)
CPT/HCPCS: 76536

== ENCOUNTER 2024-12-12 02:46 | Outpatient (CLI) | payer MEDICAID, SELFPAY ==
[2024-12-12 08:57] LABS: HCT 38.7 % (36.0-46.0); HGB 13.1 g/dL (11.2-15.7); MCH 29.3 pg (27.0-33.0); MCHC 33.9 % (32.0-36.0); MCV 87 fL (80-95); MPV 10.3 fL (8.0-11.0); Platelet Count 266 10^3/uL (130-400); RBC 4.47 10^6/uL (3.93-5.22); RDW 11.7 % (11.7-14.6); RDW-SD 37.2 fL
[2024-12-12 09:00] LABS: Bilirubin Negative (Negative); Blood Trace-intact (Negative); Clarity Clear (Clear); Glucose Negative (Negative); Ketones Negative (Negative); Leukocyte Esterase Negative (Negative); Nitrite Negative (Negative); Specific Gravity 1.015 (1.005-1.025); Urobilinogen 0.2 mg/dL (Up to 0.2)
[2024-12-12 09:26] LABS: Bacteria Few HPF (Negative); C & S Indicated? No; Casts Negative LPF (Negative); Crystals Negative HPF (Negative); Epithelial Cells Few HPF (Negative); Mucus Negative (Negative); RBC 0-2 HPF (0-2); WBC Negative HPF (0-5)
[2024-12-12 09:33] LABS: Hemoglobin A1C 5.2 % (<5.7)
[2024-12-12 09:45] LABS: ALT 17 U/L (14-59); AST 16 U/L (15-37); Albumin 3.7 g/dL (3.4-5.0); Alkaline Phosphatase 52 U/L (46-116); Anion Gap 6.5 mmol/L (3-11); BUN 17 mg/dL (7-18); Bilirubin, Total 0.31 mg/dL (0.2-1.0); CO2 28.5 mmol/L (21.0-32.0); Calcium 8.5 mg/dL (8.5-10.1); Chloride 104 mmol/L (98-107); Estimated GFR 71.69 (mL/min/1.73m2); Glucose 96 mg/dL (74-106); Potassium 4.3 mmol/L (3.5-5.1); Sodium 139 mmol/L (136-145); Vitamin B12 739 pg/mL (193-986); Vitamin D 25 Total 44.5 ng/mL (30-100)
== END 2024-12-12 02:47 | disposition home or self-care (01) ==
LOC: LBO 02:46
PROVIDERS: PCP Nurse Practitioner; Visit Provider Nurse Practitioner
DX: R73.03 Prediabetes (principal); E03.9 Hypothyroidism, unspecified; E66.9 Obesity, unspecified; E55.9 Vitamin D deficiency, unspecified; R53.83 Other fatigue
CPT/HCPCS: 36415; 80053; 82306; 85027; 81003; 81015; 82607; 83036

== ENCOUNTER 2025-02-16 06:09 | Day surgery (SDC) | payer MEDICAID, SELFPAY ==
--- NOTE | 2025-02-16 06:15 | W.ANESPRE ---
General Info Date of Service Date Performed: 02/16/25 Height: 5 ft 7 in Weight: 89.811 kg Body Mass Index (BMI): 31.0 Surgical Procedure: Operation Date: 02/16/25 07:40 Proposed Procedure Side Surgeon p Shoulder Manipulation Left Porfirio Vaz MD Meds Allergies and Home Medications Allergies Allergy/AdvReac Type Severity Reaction Status Date / Time kiwi Allergy Intermediate Anaphylaxsi Verified 02/16/25 06:29 s house dust mite Allergy Unknown sneezing, Verified 02/16/25 06:29 runny nose Home Medication ?Medication ?Instructions ?Recorded levothyroxine 112 mcg tablet 112 mcg PO DAILY #90 tabs 04/12/24 fluticasone propionate 50 See Rx Instructions .Route 05/30/24 mcg/actuation nasal .COMPLEX #16 mL spray,suspension lisinopril 10 mg tablet See Rx Instructions .Route 09/06/24 .COMPLEX #90 tabs famotidine 20 mg tablet 20 mg PO DAILY #90 tabs 09/20/24 albuterol sulfate 90 mcg/actuation 2 puff inhalation Q4H PRN 11/08/24 aerosol inhaler shortness of breath or wheezing #8.5 grams cetirizine 10 mg tablet 10 mg PO DAILY PRN 02/14/25 fluconazole 150 mg tablet 150 mg PO Q3D PRN 02/14/25 Current Visit Medications: Current Medications Generic Name Dose Route Start Last Admin Trade Name Freq PRN Reason Stop Dose Admin Ringer's Solution 1,000 mls @ 30 mls/hr 02/16/25 06:00 IV 02/16/25 23:59 INFUSION CATRACHO IV Miscellaneous Supplies 1 each 02/16/25 06:00 Iv Access IV 02/16/25 23:59 DIRECTED CATRACHO Sodium Chloride 0 ml 02/16/25 06:00 Normal Saline Flush 10 Ml Syr IV 02/16/25 23:59 PRN PRN Sodium Chloride 0 ml 02/16/25 06:00 Normal Saline 10 Ml Vial IJ 02/16/25 23:59 DIRECTED PRN Sterile Water 0 ml 02/16/25 06:00 Water,Injection,Sterile 10 Ml Vial IJ 02/16/25 23:59 DIRECTED PRN PFSH Active Problems Active Problems: Problem Status Onset Code Right thyroid nodule Acute ~11/2024 E04.1 Stiffness of left elbow joint Acute M25.622 Painful orthopaedic hardware Acute T84.84XA Adhesive capsulitis of left shoulder Acute M75.02 Renal calculi Chronic N20.0 Closed fracture of distal end of left ulna Acute 01/31/24 S52.602A Pain in right knee Acute M25.561 Vaginal odor Acute N89.8 Polyarthralgia Acute M25.50 Steatorrhea Acute K90.9 Incontinence of feces with fecal urgency Acute R15.9, R15.2 Gastric ulcer Acute K25.9 Chest pain, unspecified Acute R07.9 Diarrhea, unspecified Acute R19.7 Low back pain Acute M54.5 Obesity Chronic E66.9 Loose stools Acute R19.5 Hiatal hernia Chronic K44.9 Essential hypertension Acute I10 Abdominal pain Acute R10.9 Muscle cramps Acute R25.2 Environmental allergies Acute Z91.09 ADHD Acute F90.9 Weight gain Acute R63.5 Low blood sugar reading Acute E16.2 Mild obstructive sleep apnea Acute G47.33 Anxiety and depression Chronic F41.9, F32.9 Chronic pain of multiple joints Acute M25.50, G89.29 Dry eyes Acute H04.123 Body aches Acute R52 Fatigue Acute R53.83 Family history of diabetes mellitus Acute Z83.3 Family history of coronary artery disease Acute Z82.49 Family history of thyroid cancer Acute Z80.8 Family history of aneurysm of blood vessel of brain Acute Z82.49 Clinical xerostomia Acute K11.7 Shoulder pain, bilateral Acute M25.511, M25.512 Exposure to viral hepatitis Acute Z20.5 Lack of energy Acute R53.83 Renal colic Acute N23 Muscle pain Acute M79.10 Joint pain Acute M25.50 Premenstrual tension syndrome Acute N94.3 IBS (irritable bowel syndrome) Chronic K58.9 Gastroesophageal reflux disease Chronic K21.9 Obstructive sleep apnea Chronic G47.33 ADHD Acute F90.9 PTSD (post-traumatic stress disorder) Acute F43.10 Adjustment disorder with mixed emotional features Acute F43.29 Binge eating disorder Acute F50.81 Hypothyroidism Chronic E03.9 Candidal vulvovaginitis Acute B37.3 Medical History Medical History Gastric ulcer, unspecified as acute or chronic, without hemorrhage or perforation Heartburn Palpitations Holter 01/10/11 History of cardiac murmur as a child Surgical History Surgical History History of esophagogastroduodenoscopy (EGD) (10/07/21) Wireless pH-metry ([facility]) procedure report. Neg H.Pylori [place] teeth extracted (~2000) Status post hysteroscopic surgical removal of uterine septum (~2003) H/O tubal ligation (~2014) delivery delivered (12/03/14) Tobacco Smoking/Tobacco Use Status: Former Tobacco Use Smokeless tobacco user: other (quit vaping 11/18/20) Passive smoking exposure: No Alcohol Alcohol Intake: former Substance Use Substance use: Never Substance use type: does not use Prental History History 4 Para 2 Hx # Term Pregnancies 2 Multiple births Hx # Pregnancies Ectopic pregnancies AB induced Hx Number of Living Children 2 AB spontaneous Vital Signs and Lab Results Vital Signs Most Recent Vital Signs in EMR: Temp Pulse Resp BP Pulse Ox 36.4 C L 55 L 16 97/67 L 98 02/16/25 06:35 02/16/25 06:35 02/16/25 06:35 02/16/25 06:35 02/16/25 06:35 Lab Results Blood Type / Crossmatch: No Data to Display Complete Blood Count: No Data to Display Complete Metabolic Panel: No Data to Display Liver Function Panel: No Data to Display Coagulation Panel: No Data to Display Cardiac Panel: No Data to Display Arterial Blood Gas: No Data to Display Venous Blood Gas: No Data to Display Pancreas Panel: No Data to Display Thyroid Panel: No Data to Display Infectious Disease: No Data to Display Blood Cultures: No Data to Display Toxicology Panel: No Data to Display Panel: No Data to Display Imaging and Studies Imaging and Studies Study information below may be from another EMR and interpreted by another provider. Please see original notes in EMR for more complete details. EKG Summary: 07/10/21 Conclusion Sinus rhythm...normal P axis, V-rate 60- 99 I have reviewed and I agree with the emergency room physician's ECG interpretation. Other Study Summary:: 2022 holter monitor read reviewed- NSR with some PACs- see results in chart Anesthesia Assessment and Plan Anesthesia History Personal History: PONV Family History: No Family History of Anesthesia Complications Exercise Tolerance Exercise Tolerance: Metabolic Equivalents>4 Cardiac & Pulmonary Exam Cardiac Exam: Normal S1/S2 Heart Sounds Pulmonary Exam: Clear Bilateral Breath Sounds Implantable Cardiac Device Does patient have a Pacemaker or an ICD?: No Airway Exam Known Difficult Airway: No Mallampati Class: 3 Mouth Opening: Normal (> 3cm) Thyromental Distance: Greater than 3 cm Neck Range of Motion: Full ROM Neck Circumference: Normal Teeth Condition: Normal Dentition ASA Classification ASA Score: ASA 2 Emergency Case?: No NPO Status NPO Status: NPO Clears >2 hours, Solids >8 hours Status Status: Negative HCG Anesthesia Plan Resuscitation Status: Full Code Anesthesia Technique: General Anesthesia Airway Planned: Natural Airway Pain Management: Surgeon and patient request nerve block Monitors Used: Standard Monitors Preoperative Comments:: 44 yo female for shoulder manipulation. PONV in the past assoc with her uterine septum surgery. No health history changes since her last time with us. Sig PMHx: HTN (lisinopril, well controlled), TAMMY (mild, no CPAP), ulcer/hiatal hernia, GERD (occ famotidine use, zero symptoms today. In general it is not a big issues) hypothyroid (on replacement), polyarthralgia, anxiety/depression, PTSD. former smoker. Previous Anes: - hardware removal, igel 4, no issues/PONV - Ulna ORIF, glide 3 grade 2b, easy mask.
[2025-02-16 06:19] VITALS: BMI 31.0
[2025-02-16 06:35] VITALS: BP 97/67; PULSE 55; RESP 16; TEMP 36.4; O2SAT 98
[2025-02-16] MEDS: Lactated Ringers 1,000 ML 30 ML IV (06:47)
[2025-02-16 07:05] VITALS: BP 116/66; PULSE 49; PULSE 52; RESP 14; TEMP 36.3; O2SAT 99
--- NOTE | 2025-02-16 07:12 | ROE_ITS ---
Operative Note Operative Note PRE-OP DIAGNOSIS: Left shoulder stiffness PROCEDURE: Left shoulder manipulation under anesthesia, CPT #31599 SURGEON: Porfirio Vaz ANESTHESIA TYPE: General LMA/ETT and Primary Nerve Block Refer to Anesthesia Record ESTIMATED BLOOD LOSS: 0 COMPLICATIONS: None Patient was transported to: same day Patient's condition: stable Indications: Please see complete medical record for details. Findings: Excellent release of adhesions, no instability Procedure Description: In the operating room, general anesthesia was induced. The patient was posi tioned supine on the stretcher. Preoperative antibiotics were omitted. The correct patient, procedure, and side of the procedure were all verified prior to beginning. The Left shoulder was examined with range of motion about 120 degrees forward elevation and 20 degrees external rotation. Internal rotation at about 90 degrees 45 degrees, abduction about 90 degrees. These endpoints had firm, stiff feel. A short lever arm and gradual to steady gentle pressure was used to perform the manipulation alternating between external rotation at the side, forward elevation, and abduction with internal and external rotation. Deliberately gradually and carefully excellent releases were felt in forward elevation. Less release needed in abduction and minimal in internal rotation and external rotation largely motion achieved by stretching after forward elevation release. Range of motion was then tested and full. All endpoints were gently exaggerated. The shoulder joint remained stable. While the patient remained under anesthesia, all directions were stretched and repeated numerous times. There was no notable mechanical symptoms in the glenohumeral joint or instability The patient awoke from anesthesia without complication and was transferred to the recovery room in a stable condition. Date of Procedure: 02/16/25
--- NOTE | 2025-02-16 07:12 | W.PM.DSUDISC ---
Date of service: 02/16/25 Discharge Plan Disposition Patient Disposition: Home Condition: Stable Discharge Details Attending Provider: Porfirio Vaz Primary Care Provider: Anuja Cai Home Meds and New Rx's Prescriptions: New naproxen 250 mg tablet 250 - 500 mg PO BID PRN (Reason: Moderate pain) Qty: 40 0RF oxycodone 5 mg tablet 5 - 10 mg PO Q4H PRN (Reason: Moderate to severe pain) Qty: 18 0RF Continued albuterol sulfate 90 mcg/actuation HFA aerosol inhaler 2 puff inhalation Q4H PRN (Reason: shortness of breath or wheezing) Qty: 8.5 0RF levothyroxine 112 mcg tablet 112 mcg PO DAILY Qty: 90 3RF fluticasone propionate 50 mcg/actuation spray,suspension See Rx Instructions .ROUTE .COMPLEX Qty: 16 12RF Dose Instruction: SPRAY ONE SPRAY IN EACH NOSTRIL TWICE A DAY Rx Instructions: SPRAY ONE SPRAY IN EACH NOSTRIL TWICE A DAY lisinopril 10 mg tablet See Rx Instructions .ROUTE .COMPLEX Qty: 90 3RF Dose Instruction: TAKE ONE TABLET BY MOUTH EVERY DAY Rx Instructions: TAKE ONE TABLET BY MOUTH EVERY DAY famotidine 20 mg tablet 20 mg PO DAILY Qty: 90 3RF fluconazole 150 mg tablet 150 mg PO Q3D PRN cetirizine 10 mg tablet 10 mg PO DAILY PRN Discharge Instructions Additional Instructions: Surgery: Left shoulder manipulation under anesthesia 02/16/25 Activity: Encourage increasing range of motion. Perform daily stretching exercises. Resume physical therapy tomorrow. Prescriptions: Naproxen 250 mg take 1-2 every 12 hours with a meal as needed for moderate pain Oxycodone 5 mg take 1-2 every 4-6 hours as needed for severe pain You may use [id number] Tylenol (acetaminophen) as needed for mild pain. These pain medications may be taken all at once or in different combinations as needed. Also, recommend Colace (docusate) as a stool softener as surgery and pain medicine cause constipation. You may try [id number] diphenhydramine (Benadryl) 25-50 mg nightly as a sleep aid Dressings: None Follow-up: 10-[address] Vaz You may take off the leg compression stockings this evening at home. You may also leave them on a few days longer if you have a history of leg swelling or edema. Let us know right away if you develop any redness, drainage, fevers, chest pain, or trouble breathing. Do not drink alcohol or drive for at least 24 hours after anesthesia. Please call the office during business hours with any questions or concerns. Discharge Orders Discharge Orders: Discharge Order (Routine); Ordered 02/16/25 Ordered By: Ricci Phillips DS: Diagnosis Discharge Diagnosis (1) Adhesive capsulitis of left shoulder: Status: Acute
--- NOTE | 2025-02-16 07:24 | W.ANESNERVE ---
Nerve Block Single Injection Procedure Date and Time Date Performed: 02/16/25 Procedure Start: 07:16 Location Where Procedure Performed Procedure Location: Day Surgery Unit Reason Performed: Postoperative Analgesia Requesting Provider: Porfirio Vaz Timeout Performed Timeout Performed: Yes Monitoring Used ECG, Blood Pressure and SpO2 Sterility Sterility: Hand Hygiene, Surgical Cap, Surgical Mask, Sterile Gloves and Chlorhexidine Sedation Given During Procedure Sedation Given (Indicate Dose Given): Versed IV Dose:: 2 mg Patient Mental Status Patient Mental Status: Sedate with meaningful communication Nerve Block 1st Nerve Block: Laterality: Left Block Type: Interscalene Ultrasound Image Saved?: Yes Needle / Catheter Used: 100mm SonoPlex II Local Anesthetic Bolus (Indicate Dose Given): Lidocaine used for local infiltration of skin, Bupivacaine 0.5% Dose:: 10 mL and Exparel Dose:: 10 mL Additives (Indicate Dose Given): None Ultrasound: Sterile probe cover and gel used Nerve Stimulator: Supplement to Ultrasound use and No twitch or parasthesia noted < 0.5 mA Paresthesia: None Procedure Tolerated: No Complications Procedure Outcome: Successful Performed By: Ang Montague
[2025-02-16 07:47] VITALS: BP 91/57; PULSE 63; RESP 14; TEMP 36.4; O2SAT 94
--- NOTE | 2025-02-16 08:00 | W.ANESPOSTOP ---
Postoperative Evaluation Date, Time and Location Date Performed: 02/16/25 Time Performed: 08:00 Patient Location: Day Surgery Unit Vital Signs Most Recent Imported Vital Signs: Most Recent Vital Signs Temp Pulse Resp BP Pulse Ox 36.4 C L 63 14 91/57 L 94 02/16/25 07:47 02/16/25 07:47 02/16/25 07:47 02/16/25 07:47 02/16/25 07:47 Pain Score Most Recent Pain Score: Most Recent Pain Score Pain Level 0 02/16/25 07:47 Assessment Mental Status: Awake (Alert & Oriented to Patient Baseline) Airway and Respiratory Function: Patent airway with normal (patient baseline) respiratory exam Cardiovascular Function: Hemodynamically Stable Hydration Status: Adequately Hydrated Nausea & Vomiting: No Nausea or Vomiting Pain: Pain is tolerable per patient Peripheral Nerve Block: Regional nerve block not resolved at time of post operative discharge
[2025-02-16 08:20] VITALS: BP 112/61; PULSE 47; RESP 16; TEMP 36.5; O2SAT 100
== END 2025-02-16 08:40 | disposition home or self-care (01) ==
PROVIDERS: PCP Nurse Practitioner; Visit Provider Student in an Organized Health Care Education/Training Program
PROC: (CPT 23700; principal; 2025-02-16 07:30)
DX: M25.612 Stiffness of left shoulder, not elsewhere classified (principal); M75.02 Adhesive capsulitis of left shoulder; G89.18 Other acute postprocedural pain; I10 Essential (primary) hypertension; G47.33 Obstructive sleep apnea (adult) (pediatric)
CPT/HCPCS: 23700; 64415; 81025; J0665; J0666; J1885; J2003; J2250; J2405; J2704

== ENCOUNTER 2025-03-17 01:56 | Outpatient (CLI) | payer MEDICAID, SELFPAY ==
[2025-03-17 14:06] LABS: Calculated LDL 100 mg/dL (<100); Cholesterol 160 mg/dL (<200); HDL Cholesterol 47 mg/dL (>or=50); Triglyceride 66 mg/dL (<150)
== END 2025-03-17 01:57 | disposition home or self-care (01) ==
PROVIDERS: PCP Nurse Practitioner; Visit Provider Family Medicine
DX: Z13.89 Encounter for screening for other disorder (principal); I10 Essential (primary) hypertension; R07.9 Chest pain, unspecified; Z82.49 Family history of ischemic heart disease and other diseases of the circulatory system
CPT/HCPCS: 36415; 80061

== ENCOUNTER 2025-04-20 00:45 | Outpatient (CLI) | payer MEDICAID, SELFPAY ==
--- NOTE | 2025-04-20 06:45 | DI.MAMMO_ITS ---
Exam(s) MAMMO SCREENING EXAM: MAMMO SCREENING CLINICAL HISTORY: screening,z12.39 TECHNIQUE: Bilateral full field digital CC and MLO mammographic images were obtained with 3D tomosynthesis and utilizing computer aided detection (CAD). COMPARISON: Comparison is made with prior examinations. FINDINGS: Masses/Architectural Distortion: No suspicious masses or areas of architectural distortion are present. Microcalcifications: No suspicious pleomorphic-type are seen. Skin Thickening/Nipple Retraction: None. IMPRESSION: 1. No significant interval change with no specific features of malignancy noted. 2. Unless there is more urgent need, screening mammography is recommended, as per [place] [employer] guidelines. BI-RADS Category 1 - Negative Breast Density - Category B - There are scattered areas of fibroglandular density. Breast density Category C or D implies that the patient has dense breast tissue. Dense breast tissue can make it harder to find cancer on a mammogram. Dense breast tissue is also associated with an increased risk of breast cancer. This information about the result of the mammogram report was provided to the patient to raise their awareness. Use this report when you speak with the patient about their risks for breast cancer, which includes their family history. At that time, you may recommend additional screening tests (Ultrasound or MRI) as these tests may add significant information. A negative radiographic report should not delay biopsy if a dominant or clinically suspicious mass is present. Up to ten percent of cancers are not identified on mammography. A negative report may reinforce clinical impression. Adenosis and dense breasts may obscure an underlying neoplasm. False positive reports average 6 to 10%. Patient will receive a letter notifying them of these results.
== END 2025-04-20 01:05 ==
PROVIDERS: PCP Family Medicine; Visit Provider Nurse Practitioner Women's Health
DX: Z12.31 Encounter for screening mammogram for malignant neoplasm of breast (principal); R92.323 Mammographic fibroglandular density, bilateral breasts
CPT/HCPCS: 77063; 77067

== ENCOUNTER 2025-05-18 11:52 | Outpatient (CLI) | payer MEDICAID, SELFPAY ==
--- NOTE | 2025-05-18 11:30 | DI.RAD_ITS ---
Exam(s) XR HIP RT COMPLETE AP PELVIS EXAM: XR HIP RT COMPLETE AP PELVIS CLINICAL HISTORY: snapping feeling M25.551 PAIN IN RT HIP ACUTE PAIN. TECHNIQUE: 2D digital imaging was performed of the right hip. Three images were obtained. AP pelvis and lateral right hip views were obtained. COMPARISON: No exams were available for comparison FINDINGS: BONES: No acute fracture is present. No bony destructive lesion is seen. There is a small bump at the head neck junction of the right femur suspicious for femoral acetabular impingement. The right hip is otherwise well maintained. JOINTS: No dislocation present. There are mild degenerative changes seen in the left hip. The sacroiliac joints and symphysis pubis are unremarkable. SOFT TISSUE: Normal. IMPRESSION: 1. 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 2. No acute fracture or dislocation. DATA REPOSITORY: RADIATION DOSE DELIVERED:
== END 2025-05-18 12:12 ==
LOC: DI 11:53
PROVIDERS: PCP Nurse Practitioner; Visit Provider Family Medicine
DX: M25.551 Pain in right hip (principal)
CPT/HCPCS: 73502

== ENCOUNTER 2025-06-01 10:53 | Outpatient (CLI) | payer MEDICAID, SELFPAY ==
--- NOTE | 2025-06-01 10:00 | DI.RAD_ITS ---
Exam(s) XR LUMBAR SPINE COMPLETE EXAM: XR LUMBAR SPINE COMPLETE CLINICAL HISTORY: low back pain with rt-sided sciatica, M54.41. TECHNIQUE: 2D digital imaging was performed. Five views. COMPARISON: No exams were available for comparison FINDINGS: BONES: No fracture or destructive lesion. Vertebral body heights are maintained. Minimal facet hypertrophy identified . DISKS: Intervertebral disc spaces are maintained. ALIGNMENT: Lumbar spinal alignment is within normal limits. SOFT TISSUE: Normal. IMPRESSION: Minimal degenerative changes of the lumbar spine. DATA REPOSITORY: RADIATION DOSE DELIVERED:
--- NOTE | 2025-06-01 12:15 | DI.MRI_ITS ---
Exam(s) MR LUMBAR SPINE WO EXAM: MR LUMBAR SPINE WO CLINICAL HISTORY: LBP with rt-sided sciatica, M54.41, bilat leg weakness; urinary urgency,. TECHNIQUE: Multiplanar multisequence MRI of the Lumbar spine was performed. COMPARISON: CR XR LUMBAR SPINE COMPLETE from 06/01/2025 FINDINGS: Conus medullaris is at normal level. There is no evidence of conus mass nor subjacent clumping of intrathecal nerve roots to suggest arachnoiditis. The distal thecal sac appears unremarkable.There is no evidence of Tarlov intrasacral cysts nor other significant findings within the sacral canal Bones:There are no fractures nor ominous osseous lesions in the lumbar vertebral bodies and visualized sacrum. With respect to the individual levels... T12-L1: Unremarkable L1-2: Normal disc height and signal. No disc herniation nor central canal stenosis.No foraminal stenosis L2-3: Normal disc height. No disc herniation nor central canal stenosis.No foraminal stenosis.No facet arthropathy. L3-4: Normal disc height. No disc herniation or central canal stenosis.No foraminal stenosis.No facet arthropathy. L4-5: Normal disc height. Decreased disc hydration signal. No listhesis. Posteriorly there is mild annular bulging and shallow subligamentous protrusion. There is no large disc herniation at this level. There is no central canal stenosis. There is no foraminal stenosis at this level. Minimal degenerative changes in the facet joints. L5-S1: Normal disc height and signal. No disc herniation or central canal stenosis nor foraminal stenosis. There is mild the arthropathy in the left facet joint. Soft tissues: paraspinal soft tissues appear unremarkable. IMPRESSION: 1. Findings this/annular at L4-5 level as described above. 2. No significant central spinal canal stenosis and no significant foraminal stenosis in the lumbar spine. DATA REPOSITORY:
== END 2025-06-01 11:13 ==
LOC: DI 10:54
PROVIDERS: PCP Nurse Practitioner; Visit Provider Family Medicine
DX: M54.41 Lumbago with sciatica, right side (principal); R29.898 Other symptoms and signs involving the musculoskeletal system; R39.15 Urgency of urination
CPT/HCPCS: 72110; 72148

== ENCOUNTER 2025-06-08 03:26 | Outpatient (CLI) | payer MEDICAID, SELFPAY ==
--- NOTE | 2025-06-08 06:45 | DI.US_ITS ---
Exam(s) US THYROID EXAM: US THYROID CLINICAL HISTORY: follow 6 mm thyroid nodule,e04.1. TECHNIQUE: Ultrasound thyroid performed using standard protocol. COMPARISON: US US THYROID from 11/17/2024 FINDINGS: ISTHMUS: 1.8 mm RIGHT LOBE: Size: 4.3 x 1.2 x 1.1 cm Echogenicity: Normal. Vascularity: Normal. Nodules: There again seen a stable nodule in the superior aspect of the right lobe. There is a solid 0.6 x 0.5 x 0.5 cm nodule which is solid and hypoechoic. Punctate echogenic foci are seen. There again appears to be extrathyroidal extension. The findings are consistent with a TI rads level 5 nodule. Due to its size, follow-up is recommended. There are no other suspicious nodules to warrant follow-up or biopsy. LEFT LOBE: Size: 3.3 x 0.9 x 1.4 cm Echogenicity: Normal. Vascularity: Normal. Nodules: None. OTHER FINDINGS: None. IMPRESSION: Stable right thyroid nodule. DATA REPOSITORY:
== END 2025-06-08 03:46 ==
PROVIDERS: PCP Family Medicine; Visit Provider Nurse Practitioner
DX: E04.1 Nontoxic single thyroid nodule (principal)
CPT/HCPCS: 76536

== ENCOUNTER 2025-07-05 14:49 | Outpatient (CLI) | payer MEDICAID, SELFPAY ==
--- NOTE | 2025-07-05 06:00 | DI.MRI_ITS ---
Exam(s) MR LOWER JOINT RT WO EXAM: MR LOWER JOINT RT WO CLINICAL HISTORY: R HIP PAIN M25.551 TECHNIQUE: Multiplanar multisequence MRI of right hip was performed COMPARISON: CR XR HIP RT COMPLETE AP PELVIS from 05/18/2025 FINDINGS: Bones: There is no evidence of a fracture or avascular necrosis. No bone marrow edema is seen. The SI joints and symphysis pubis are well maintained. There is no significant joint effusion. Labrum: The anterior superior labrum appears small and irregular. This may represent degeneration and/or tear. Musculotendinous structures: There is mild edema seen within and adjacent to the gluteus medius musculotendinous junction consistent with strain. Intrapelvic structures demonstrate no significant abnormality. Soft tissues: The soft tissues are unremarkable. IMPRESSION: 1. Right gluteus medius muscle strain. 2. Small and irregular anterior superior labrum which may represent degeneration and/or tear. DATA REPOSITORY:
== END 2025-07-05 15:09 ==
LOC: DI 14:49
PROVIDERS: PCP Student in an Organized Health Care Education/Training Program; Visit Provider Student in an Organized Health Care Education/Training Program
DX: M25.551 Pain in right hip (principal)
CPT/HCPCS: 73721

== ENCOUNTER 2025-07-14 03:51 | Outpatient (CLI) | payer MEDICAID, SELFPAY ==
--- NOTE | 2025-07-14 14:57 | DI.RAD_ITS ---
Exam(s) RF JOINT INJ. FLUORO GUID RAD EXAM: RF JOINT INJ. FLUORO GUID RAD CLINICAL HISTORY: R HIP PAIN, fluoro guided injection,labral tear rt hip joint,si pain,s73.1. TECHNIQUE: 2D and realtime digital imaging was performed. CONTRAST MATERIAL: INTRA-ARTICULAR OMNIPAQUE 300-1.5 cc COMPARISON: No exams were available for comparison FINDINGS: Fluoroscopic guided right hip there are injection performed at the request of the referring orthopedic surgeon. Patient was consented prior to this procedure. Using sterile technique and adequate skin-subcutaneous anesthesia, fluoroscopic guidance was used to advance a 22 gauge spinal needle into the hip joint using an anterolateral approach, being careful to avoid the common femoral artery. Intra-articular position was confirmed with 1.5 mL Omnipaque 300 Thereafter a sterile solution of 3 cc bupivacaine 0.25 percent and 40 milligram Depo-Medrol was injected into the joint via the indwelling needle. Needle was removed and Band-Aid applied The patient tolerated this procedure well and there were no intraprocedural complications. IMPRESSION: Successful right hip steroid injection using fluoroscopic guidance. RADIATION DOSE DELIVERED: Kar=2.71mGy
[2025-07-14] MEDS: Omnipaque 300 MG/ML 10 ML BTL IJ (15:07)
[2025-07-14] MEDS: methylPREDNISolone ACETATE 40 MG/ML VIAL IM (15:10)
== END 2025-07-14 04:11 ==
PROVIDERS: PCP Family Medicine; Visit Provider Student in an Organized Health Care Education/Training Program
DX: M53.3 Sacrococcygeal disorders, not elsewhere classified (principal); S73.191A Other sprain of right hip, initial encounter; X58.XXXA Exposure to other specified factors, initial encounter
CPT/HCPCS: 20610; 77002; J1010

== ENCOUNTER 2025-08-02 09:06 | Outpatient (CLI) | payer MEDICAID, SELFPAY ==
[2025-08-02 16:50] LABS: Anion Gap 12.0 mmol/L (3-11); BUN 14 mg/dL (7-18); CO2 24.0 mmol/L (21.0-32.0); Calcium 8.7 mg/dL (8.5-10.1); Chloride 103 mmol/L (98-107); Estimated GFR 93.12 (mL/min/1.73m2); Glucose 103 mg/dL (74-106); Potassium 3.9 mmol/L (3.5-5.1); Sodium 139 mmol/L (136-145)
== END 2025-08-02 09:07 | disposition home or self-care (01) ==
LOC: LBO 09:06
PROVIDERS: PCP Family Medicine; Visit Provider Family Medicine
DX: N18.2 Chronic kidney disease, stage 2 (mild) (principal)
CPT/HCPCS: 36415; 80048

== ENCOUNTER 2025-08-09 02:01 | Outpatient (CLI) | payer MEDICAID, SELFPAY ==
--- NOTE | 2025-08-09 05:45 | DI.US_ITS ---
Exam(s) US RENAL EXAM: US RENAL CLINICAL HISTORY: monitoring calculi and PVR,urinary urgency,renal calculi,n20.0 TECHNIQUE: Ultrasound of both kidneys performed using standard protocol. COMPARISON: US US THYROID from 06/08/2025 FINDINGS: RIGHT KIDNEY: Measures 11.8 cm in length. No cysts evident. Normal cortical thickness and corticomedullary differentiation .No solid masses No intrarenal calculi nor hydronephrosis. LEFT KIDNEY: Measures 11.6 cm in length. No cysts evident. Normal cortical thickness and corticomedullary differentiaion. No solids masses. But the midpole level there is a 6 millimeter hyperechoic focus consistent with calculus. No evidence of hydronephrosis. URINARY BLADDER: Prevoid volume is 212 cc Postvoid volume is 21 cc No evidence of bladder mass nor diverticuli. Ureterovesical jets: Both identified and appear symmetrical IMPRESSION: 1. There is a 6 millimeter nonobstructive calculus at the midpole level of the left kidney. No other significant renal findings 2. No significant findings in the urinary bladder. Mild increased postvoid residual recorded (21 cc). DATA REPOSITORY:
== END 2025-08-09 02:21 ==
LOC: DI 02:01
PROVIDERS: PCP Family Medicine; Visit Provider Nurse Practitioner Gerontology
DX: R39.15 Urgency of urination (principal); N20.0 Calculus of kidney
CPT/HCPCS: 76770

== ENCOUNTER 2025-08-21 08:13 | Outpatient (CLI) | payer MEDICAID, SELFPAY ==
--- NOTE | 2025-08-21 06:00 | DI.RAD_ITS ---
Exam(s) XR PAIN CLINIC LUMBAR SP 2V EXAM: XR PAIN CLINIC LUMBAR SP 2V CLINICAL HISTORY: DX: Lumbar Radiculopathy TECHNIQUE: 2D and realtime digital imaging was performed. CONTRAST MATERIAL: Refer to procedure report. COMPARISON: No exams were available for comparison FINDINGS: Fluoroscopy was provided for Dr. Mcmillan during the performance of a lumbar epidural steroid injection. Please refer to the procedure report for complete details. Ka,r=4.0 mGy IMPRESSION: RADIATION DOSE DELIVERED: 0.0 0.0 0
[2025-08-21 08:25] VITALS: BP 109/74; PULSE 74; RESP 17; TEMP 37; O2SAT 97
--- NOTE | 2025-08-21 09:09 | PDOC.PAIN_ITS ---
Date of service: 08/21/25 Time of Service: 09:24 Pain Managment Procedure Note Procedure Note Procedure Note: Lumbar Interlaminar Epidural Steroid Injection ? Location: L4-5 ? Pre-procedure Diagnosis: M54.16- Radiculopathy, LUMBAR region ? Post-procedure Diagnosis:? The same as above ? Sedation:? [2mg of intravenous midazolam was administered.? An independent trained observer monitored the patient for the duration of the procedure.]? [None] ? Medication: Depo-Medrol 80 mg, Omnipaque 1 mL ? Estimated blood loss:? less than 2 cc ? Surgeon:? Angus Mcmillan MD COMMENT: pain low back to RLE-MRI L4-5: Normal disc height. Decreased disc hydration signal. No listhesis. Posteriorly there is mild annular bulging and shallow subligamentous protrusion. ? Procedure Detail:? The procedure and potential risks were explained to the patient and informed written consent was obtained. The patient was escorted to the procedure room and placed in the prone position. Pillows were utilized for proper positioning and comfort. Time out was performed in the procedure room with nursing staff confirming the patient's identity, procedure to be performed, allergies, and any blood thinning or anti-platelet medications.? The patient's neck and upper back was prepped with ChloraPrep and draped in a sterile fashion. Sterile technique was maintained throughout the procedure.? Sterile gloves were used, a face mask was worn, and new single dose vials of all medications were used with the top being swabbed with alcohol and given time to dry prior to withdrawal of medication. Lidocane 1% was used to anesthetize the skin.Using a 25-gauge 1.5 inch needle, 1% lidocaine was instilled into the superficial soft tissue overlying the targeted area to provide local anesthesia. With fluorosco pic guidance, a 17 -gauge Tuohy needle was advanced toward the interlaminar space of L4-5. The needle was then advance through the ligamentum flavum and into the posterior epidural space using the loss of resistance technique. Correct needle placement was confirmed through review of the AP and contralateral oblique fluoroscopic views. A 19-gauge arrow catheter was threaded cephalad and to the Right Following negative aspiration, one cc of Omnipaque 240 contrast was injected which confirmed good flow throughout the epidural space and no evidence of vascular flow or flow into adjacent compartments. Next, following negative aspiration, 1 cc's of normal saline and 80mg of Depo-Medrol was injected. The needle was gently removed. The patient tolerated the procedure well and was transported to the recovery area for observation and discharge instructions. Permanent images saved and recorded. PAIN PRE-PROCEDURE 10 POST-PROCEDURE 010 Plan:? Follow up prn. COMMENT: will f/u in office if not better Coding Conscious Sedation used for procedure: No CPT Codes: Inj Spine L/S w/Imaging - [id number] ([id number] ~G) Additional Codes: Date of Service () Diagnoses: M54.16- Radiculopathy, LUMBAR region
[2025-08-21] MEDS: Omnipaque 240 MG/ML 50 ML BTL IJ (09:26)
[2025-08-21] MEDS: methylPREDNISolone ACETATE 40 MG/ML VIAL IJ (09:26)
[2025-08-21] MEDS: Epidural Tray 1 EACH MC (09:27)
== END 2025-08-21 08:14 | disposition home or self-care (01) ==
LOC: PC 08:14
PROVIDERS: PCP Family Medicine; Visit Provider Anesthesiology Pain Medicine
DX: M54.16 Radiculopathy, lumbar region
CPT/HCPCS: 62323; 72100; J1010; Q9967

== ENCOUNTER 2025-09-05 16:32 | Outpatient (REF) | payer MEDICAID, SELFPAY | END 2025-09-05 16:33 | disposition home or self-care (01) | LOC: LBN 16:32 | PROVIDERS: PCP Family Medicine; Visit Provider Nurse Practitioner Family | DX: R10.30 Lower abdominal pain, unspecified (principal) | CPT/HCPCS: 87086 ==

== ENCOUNTER 2025-09-13 08:32 | Outpatient (REF) | payer MEDICAID, SELFPAY ==
[2025-09-14 12:10] LABS: Chlamydia Result Negative (Negative); GC Result Negative (Negative)
== END 2025-09-13 08:33 | disposition home or self-care (01) ==
LOC: LBN 08:32
PROVIDERS: PCP Family Medicine; Visit Provider Nurse Practitioner Women's Health
DX: Z11.3 Encounter for screening for infections with a predominantly sexual mode of transmission (principal)
CPT/HCPCS: 87491; 87591

== ENCOUNTER 2025-09-13 08:39 | Outpatient (CLI) | payer MEDICAID, SELFPAY ==
[2025-09-13 18:45] LABS: Hepatitis C Ab w Rflx HCV PCR Negative (Negative)
[2025-09-15 20:28] LABS: Syphilis IgG w/Reflex Nonreactive (Nonreactive)
== END 2025-09-13 08:40 | disposition home or self-care (01) ==
LOC: LBO 08:39
PROVIDERS: PCP Family Medicine; Visit Provider Nurse Practitioner Women's Health
DX: Z11.3 Encounter for screening for infections with a predominantly sexual mode of transmission (principal)
CPT/HCPCS: 36415; 86803; 86780